=== PATIENT | female | born 1950 | race Caucasian/White ===

== ENCOUNTER 2021-05-21 10:48 | Emergency (ER) | payer MEDICARE, OTHER, SELFPAY ==
[2021-05-21 10:53] VITALS: BP 120/105; PULSE 92; RESP 15; TEMP 36.7; BMI 19.2
--- NOTE | 2021-05-21 11:10 | EDS_ITS ---
HPI History of Present Illness Chief Complaint: Laceration Onset/Context/Timing Onset: Hours Context: Sudden Onset Timing: Continuous Location: Laceration anterior distal left leg Current Severity: Mild Maximum Severity: Mild Worsened by: Nothing Relieved by: Nothing Associated Symptoms Associated Symptoms: Negative for Parasthesia, Weakness and Loss of Funtion Narrative Narrative: Patient is a 70-year-old woman who was at [employer]. She was kneeling. She scraped her leg against the kneeler. She presents because of laceration. Tetanus unknown. She denies paresthesia, anesthesia medics. She is not on an anticoagulant. Tetanus Immunization: Unknown Prior similar symptoms: No Recent Illness/Hospitalization: No PFSH PFSH Home Medications Dicyclomine Hcl 20 mg PO TID 02/07/15 [History Last Taken 09/29/16 21:00] levothyroxine 25 mcg PO DAILY 02/07/15 [History Last Taken 09/29/16 09:00] bacillus coagulans-inulin [Probiotic Formula (inulin)] 1 ea PO DAILY 12/07/15 [History Last Taken 09/29/16 09:00] gabapentin 600 mg PO BID 12/07/15 [History Last Taken 09/29/16 21:00] nifedipine 150 mg PO DAILY 12/07/15 [History Last Taken 09/29/16 09:00] pantoprazole 20 mg PO DAILY 12/07/15 [History Last Taken 09/29/16 09:00] paroxetine HCl [Paxil CR] 75 mg PO DAILY 12/07/15 [History Last Taken 09/29/16 09:00] aspirin 325 mg PO DAILY 04/26/16 [History Last Taken 09/29/16 09:00] buspirone 30 mg PO BID 04/26/16 [History Last Taken 09/29/16 21:00] budesonide [Entocort EC] 9 mg PO DAILY 09/30/16 [History Last Taken Unknown] cyclobenzaprine 10 mg PO TID PRN PRN #0 tablet 10/03/16 [Rx Last Taken Unknown] food supplemt, lactose-reduced [Ensure Enlive] 120 ml PO 4X/DAY liquid 10/03/16 [Rx Last Taken Unknown] hydrocodone-acetaminophen 1 tab PO Q6H PRN PRN #12 tablet 10/03/16 [Rx Last Taken Unknown] lorazepam 0.5 mg PO Q6H PRN PRN #10 tablet 10/03/16 [Rx Last Taken Unknown] Allergy/AdvReac Type Severity Reaction Status Date / Time codeine AdvReac Nausea Verified 05/21/21 10:53 oxycodone HCl [From Percocet] AdvReac Nausea Verified 05/21/21 10:53 Social History (Updated 05/21/21 @ 11:[address] Saad Cruz MD) household members: none Smoking Status: Never smoker substance use type: does not use ROS ROS ED Musculoskeletal Musculoskeletal: Denies arthralgias, back pain, myalgias or neck pain Integumentary Reports other Details: Laceration anterior distal left leg ; Denies rash Neurologic Neurologic: Denies paresthesias or weakness Hematologic/Lymphatic Hematologic/Lymphatic: Denies easy bleeding or easy bruising EXAM Physical Exam Const Vital Signs: 05/21/21 10:53 Temperature 98.0 F Temperature Source Temporal Pulse Rate 92 Respiratory Rate 15 Blood Pressure 120/105 H Blood Pressure Mean 110 Positive well nourished and well developed General Appearance ED: well developed HEENT normocephalic and atraumatic Eyes PERRL Eyes Narrative: Extract muscles are intact. Resp normal respiratory effort Cardio regular rate and regular rhythm Extremity full ROM; Negative for normal to inspection Extremity Narrative: Patient has a anterior distal left leg. There is no pain the patient over the lateral medial malleolus. Is no pain the patient over the tibia or fibula. There is no evidence of foreign body. Please read procedure note General Extremety ED: Negative for cyanosis, edema or weight-bearing difficulty General Extremity: other findings; Negative for cyanosis, edema or weight- bearing difficulty Neuro oriented x3 and CN's II-XII intact bilaterally Sensorium / Orientation: alert Motor Exam: strength 5/5 throughout Psych mental status grossly normal Skin Lesions: no lesions Rashes: no rashes Trauma: laceration MDM MDM MDM Narrative Medical decision making narrative: Patient has a flap type laceration. This will require repair. Tetanus was updated. Procedures Other Procedures Procedure(s): Laceration repair. Laceration is 4 x 3 cm The area was no styes with him Xylocaine for local infiltration. The wound was irrigated with 200 cc of normal saline. A total of 6 prabhakar were placed to approximate the wound. Concerned if closed with sutures that the skin would tear. Will have nurse dress. Patient will be discharged appropriate home-going instructions. She was instructed to leave the stitches in place for 14 days. Discharge Plan Triage Chief Complaint: Laceration ED Provider: Saad Cruz Dx/Rx/DC Orders Clinical Impression: Laceration of left leg Instructions: ED Laceration: All Closures Prescriptions: No Action levothyroxine 25 MCG tablet 25 mcg PO DAILY RF: 0 Dicyclomine Hcl 10 MG capsule 20 mg PO TID RF: 0 pantoprazole 20 MG tablet 20 mg PO DAILY RF: 0 nifedipine 60 MG tablet 150 mg PO DAILY RF: 0 gabapentin 100 MG capsule 600 mg PO BID RF: 0 bacillus coagulans-inulin [Probiotic Formula (inulin)] 1 EACH capsule 1 ea PO DAILY RF: 0 paroxetine HCl [Paxil CR] 25 MG Tab.Er.24h 75 mg PO DAILY RF: 0 buspirone 5 MG tablet 30 mg PO BID RF: 0 aspirin 325 MG tablet 325 mg PO DAILY RF: 0 budesonide [Entocort EC] 3 MG Capdr...Er 9 mg PO DAILY RF: 0 cyclobenzaprine 10 MG tablet 10 mg PO TID PRN PRN (Reason: Muscle Spasm) Qty: 0 RF: 0 hydrocodone-acetaminophen 1 TABLET tablet 1 tab PO Q6H PRN PRN (Reason: Severe Pain (6-06/18)) Qty: 12 RF: 0 lorazepam 0.5 MG tablet 0.5 mg PO Q6H PRN PRN (Reason: Anxiety) Qty: 10 RF: 0 food supplemt, lactose-reduced [Ensure Enlive] 120 ML Liquid 120 ml PO 4X/DAY RF: 0 Primary Care Provider: Katey Henderson Referrals: Katey Henderson MD [Primary Care Provider] - 10-14 Days suture removal Activity Restrictions/Additional Instructions: 1. Do not remove dressing for 24 hours 2. Keep wound absolutely clean and dry for the next 72 hours 3. After 24 hours remove dressing and change dressing twice a day. Apply bacitracin ointment over wound. 4. There is any concern for infection return to the emergency department. Disposition Disposition: Home, Self Care
[2021-05-21] MEDS: Diphth,Pertuss(Acell),Tet Vac 0.5 ML Vial IM (11:42)
[2021-05-21] MEDS: Lidocaine 1% (20 ml mdv) 20 ML Vial INFILT (11:44)
== END 2021-05-21 12:46 | disposition home or self-care (01) ==
PROVIDERS: Emergency Provider Emergency Medicine; PCP Internal Medicine
DX: S81.812A Laceration without foreign body, left lower leg, initial encounter (principal); X58.XXXA Exposure to other specified factors, initial encounter
CPT/HCPCS: 12002; 90471; 90715; 99284

== ENCOUNTER 2022-05-27 10:42 | Emergency (ER) | payer MEDICARE, OTHER, SELFPAY ==
[2022-05-27 10:43] VITALS: BP 131/82; PULSE 79; RESP 12; TEMP 36.6; O2SAT 94; BMI 19.3
--- NOTE | 2022-05-27 11:17 | ED.VIS.LOWEX ---
HPI History of Present Illness Chief Complaint: Laceration Informant: patient Occured/Mechanism Comment: see below Onset/Context/Timing Onset: Today (JPTA) Context: Sudden Onset Timing: Continuous Location: right lower leg Current Severity: Mild Maximum Severity: Mild Worsened by: palpation Relieved by: holding pressure stopped bleeding Associated Symptoms Associated Symptoms: Negative for Parasthesia, Weakness or Loss of Funtion Narrative Narrative: Patient was at [employer] this morning, there is a kneeling bar that was up, and she accidentally injured her right lower leg on one of the feet that was sticking out on it. She takes aspirin every day no anticoagulants. Tetanus Immunization: 5-10 years [facility] Medical History Anxiety Depression Hypothyroidism Home Medications Dicyclomine Hcl 20 mg PO TID 02/07/15 [History Last Taken 09/29/16 21:00] levothyroxine 25 mcg tablet 25 mcg PO DAILY 02/07/15 [History Last Taken 09/29/16 09:00] bacillus coagulans-inulin 1 billion cell-250 mg capsule (Probiotic Formula (inulin)) 1 ea PO DAILY 12/07/15 [History Last Taken 09/29/16 09:00] gabapentin 100 mg capsule 600 mg PO BID 12/07/15 [History Last Taken 09/29/16 21:00] nifedipine 60 mg tablet,extended release 24 hr 150 mg PO DAILY 12/07/15 [History Last Taken 09/29/16 09:00] pantoprazole 20 mg tablet,delayed release 20 mg PO DAILY 12/07/15 [History Last Taken 09/29/16 09:00] paroxetine HCl 25 mg tablet,extended release 24 hr (Paxil CR) 75 mg PO DAILY depression 12/07/15 [History Last Taken 09/29/16 09:00] aspirin 325 mg tablet,delayed release 325 mg PO DAILY 04/26/16 [History Last Taken 09/29/16 09:00] buspirone 5 mg tablet 30 mg PO BID 04/26/16 [History Last Taken 09/29/16 21:00] budesonide 3 mg capsule,delayed,extended release (Entocort EC) 9 mg PO DAILY 09/30/16 [History Last Taken Unknown] cyclobenzaprine 10 mg tablet 10 mg PO TID PRN PRN Muscle Spasm ##0 01/25/17 [Rx Last Taken Unknown] food supplemt, lactose-reduced 0.08 gram-1.5 kcal/mL oral liquid (Ensure Enlive) 120 ml PO 4X/DAY 10/03/16 [Rx Last Taken Unknown] hydrocodone-acetaminophen 5-325mg 5mg-325mg 1 tab PO Q6H PRN PRN Severe Pain (6-10/10) ##12 10/03/16 [Rx Last Taken Unknown] lorazepam 0.5 mg tablet 0.5 mg PO Q6H PRN PRN Anxiety ##10 10/03/16 [Rx Last Taken Unknown] Allergy/AdvReac Type Severity Reaction Status Date / Time codeine AdvReac Nausea Verified 05/27/22 10:48 oxycodone HCl [From Percocet] AdvReac Nausea Verified 05/27/22 10:48 Social History household members: none Smoking Status: Never smoker substance use type: does not use ROS ROS ED Constitutional Constitutional ED: Denies chills or fever(s) Musculoskeletal Musculoskeletal: Denies extremity pain or neck pain Integumentary Reports wounds; Denies Abrasions or rash Neurologic Neurologic: Denies paresthesias or weakness EXAM Physical Exam Const Vital Signs: 05/27/22 10:43 Temperature 98 F Temperature Source Temporal Pulse Rate 79 Respiratory Rate 12 Blood Pressure 131/82 H Blood Pressure Mean 98 Pulse Ox 94 Oxygen Delivery Method Room Air Positive well nourished and well developed General Appearance ED: well developed and NAD Neck full ROM and supple Back/Spine normal ROM and normal to inspection Extremity Extremity Narrative: Skin tear right lower leg full range of motion throughout all joints without difficulty, no tenderness. No deformities. Neuro oriented x3, no focal motor deficits and no sensory deficits noted Sensorium / Orientation: alert Psych mental status grossly normal and thought process normal Skin Skin Narrative: There is a partial flap skin tear anterior distal right lower leg above the ankle. It is anterior. There is no bone exposed, it is to the dermis but not beyond it and there is no laceration. Her white shoe was covered in blood, however there is no active bleeding. I did peel back the flap for inspection. It is very thin. No bony tenderness throughout the leg. Rashes: no rashes MDM MDM MDM Narrative Medical decision making narrative: This is a skin tear only with no laceration. There is no indication for repair here, the thin edges of the skin we will not hold sutures. We cleansed the wound and placed the flap over the affected wound, bandage placed, wound care advised. Discharge Plan Triage Chief Complaint: Laceration ED Provider: Andrea Pantoja Dx/Rx/DC Orders Clinical Impression: Noninfected skin tear of right leg Instructions: ED Skin Avulsion Prescriptions: No Action levothyroxine 25 MCG tablet 25 mcg PO DAILY Label Comments: thyroid Dicyclomine Hcl 10 MG capsule 20 mg PO TID Label Comments: stomach pantoprazole 20 MG tablet 20 mg PO DAILY Label Comments: acid reflux nifedipine 60 MG tablet 150 mg PO DAILY Label Comments: heart rate gabapentin 100 MG capsule 600 mg PO BID Label Comments: nerve pain bacillus coagulans-inulin [Probiotic Formula (inulin)] 1 EACH capsule 1 ea PO DAILY Label Comments: stomach; treat IBS paroxetine HCl [Paxil CR] 25 MG Tab.Er.24h 75 mg PO DAILY Label Comments: Treat major depressive disorder buspirone 5 MG tablet 30 mg PO BID aspirin 325 MG tablet 325 mg PO DAILY Label Comments: blood thinner budesonide [Entocort EC] 3 MG Capdr...Er 9 mg PO DAILY cyclobenzaprine 10 MG tablet 10 mg PO TID PRN PRN (Reason: Muscle Spasm) Qty: 0 0RF hydrocodone-acetaminophen 1 TABLET tablet 1 tab PO Q6H PRN PRN (Reason: Severe Pain (6-10/10)) Qty: 12 0RF lorazepam 0.5 MG tablet 0.5 mg PO Q6H PRN PRN (Reason: Anxiety) Qty: 10 0RF food supplemt, lactose-reduced [Ensure Enlive] 120 ML Liquid 120 ml PO 4X/DAY 0RF Primary Care Provider: Katey Henderson Referrals: Katey Henderson MD [Primary Care Provider] - As Needed Disposition Disposition: Home, Self Care
== END 2022-05-27 11:41 | disposition home or self-care (01) ==
PROVIDERS: Emergency Provider Emergency Medicine; PCP Internal Medicine; Visit Provider Emergency Medicine
DX: S81.811A Laceration without foreign body, right lower leg, initial encounter (principal); X58.XXXA Exposure to other specified factors, initial encounter
CPT/HCPCS: 99284

== ENCOUNTER 2022-09-01 10:43 | Emergency (ER) | payer MEDICARE, OTHER, SELFPAY ==
[2022-09-01 10:48] VITALS: BP 89/57; PULSE 88; RESP 16; TEMP 36; O2SAT 95; BMI 18.0
--- NOTE | 2022-09-01 11:24 | CT_ITS ---
STUDY: CT BRAIN WITHOUT CONTRAST REASON FOR EXAM: Female, 71 years old. Change in Mental Status RADIATION DOSAGE (If Supplied By Facility): CTDIvol = ( 44.99 ) mGy, DLP = ( 728.62 ) mGycm TECHNIQUE: Transaxial CT imaging of the brain was performed without administration of intravenous contrast material. Individualized dose optimization techniques were used for this CT. COMPARISON: No relevant priors. FINDINGS: Normal soft tissue structures. Normal calvarium. There is calcification of the bilateral cavernous carotid arteries. There is mild cerebral atrophy with widening of the extra-axial spaces and ventricular dilatation. Normal white matter tracts of the cerebral hemispheres. There is chronic appearing low attenuation within the right greater than left external capsules. Normal brainstem. There is mild cerebellar atrophy. There is no intracranial hemorrhage. There are no findings of an acute ischemic infarction. Normal visualized paranasal sinuses. CT/Brain/Head without Contrast IMPRESSION: Mild atrophy no visualized acute hemorrhage infarct or edema. Probable prior subtle symmetric small vessel ischemic change within the bilateral basal ganglia. Electronically Signed: Beth Kinney MD at 12:58 EST Reading Location ID and State: [facility] / [place] Tel , Service support ,
--- NOTE | 2022-09-01 11:26 | EX.ED.VIS.PS ---
HPI HPI - Psych History of Present Illness Chief Complaint: Mental Health Narrative Narrative: 71-year-old female with history of anxiety and depression presenting with depression. She states this has been ongoing for about a week. She states her depression is getting worse even though she is taking her medications. She does not have any triggers that she knows of. She does take Paxil, buspirone, as needed Ativan. She reports that she has been taking it more than she should. She has been sleeping more through the day and still sleeps all night. She admits to feeling suicidal. She states she could take her medications as a way of killing herself. She states she saw him several days of following through. She states what ever it takes. She will tell me any other plans. Patient does feel afraid to go home because she feels that she will follow through with a suicide attempt. [facility] Medical History Anxiety Depression Hypothyroidism Home Medications Dicyclomine Hcl 20 mg PO TID 02/07/15 [History Last Taken 09/29/16 21:00] levothyroxine 25 mcg tablet 25 mcg PO DAILY 02/07/15 [History Last Taken 09/29/16 09:00] bacillus coagulans-inulin 1 billion cell-250 mg capsule (Probiotic Formula (inulin)) 1 ea PO DAILY 12/07/15 [History Last Taken 09/29/16 09:00] gabapentin 100 mg capsule 600 mg PO BID 12/07/15 [History Last Taken 09/29/16 21:00] nifedipine 60 mg tablet,extended release 24 hr 150 mg PO DAILY 12/07/15 [History Last Taken 09/29/16 09:00] pantoprazole 20 mg tablet,delayed release 20 mg PO DAILY 12/07/15 [History Last Taken 09/29/16 09:00] paroxetine HCl 25 mg tablet,extended release 24 hr (Paxil CR) 75 mg PO DAILY depression 12/07/15 [History Last Taken 09/29/16 09:00] aspirin 325 mg tablet,delayed release 325 mg PO DAILY 04/26/16 [History Last Taken 09/29/16 09:00] buspirone 5 mg tablet 30 mg PO BID 04/26/16 [History Last Taken 09/29/16 21:00] budesonide 3 mg capsule,delayed,extended release (Entocort EC) 9 mg PO DAILY 09/30/16 [History Last Taken Unknown] cyclobenzaprine 10 mg tablet 10 mg PO TID PRN PRN Muscle Spasm ##0 10/03/16 [Rx Last Taken Unknown] food supplemt, lactose-reduced 0.08 gram-1.5 kcal/mL oral liquid (Ensure Enlive) 120 ml PO 4X/DAY 10/03/16 [Rx Last Taken Unknown] hydrocodone-acetaminophen 5-325mg 5mg-325mg 1 tab PO Q6H PRN PRN Severe Pain (6-10/10) ##12 10/03/16 [Rx Last Taken Unknown] lorazepam 0.5 mg tablet 0.5 mg PO Q6H PRN PRN Anxiety ##10 10/03/16 [Rx Last Taken Unknown] Allergy/AdvReac Type Severity Reaction Status Date / Time codeine AdvReac Nausea & Verified 09/01/22 10:45 dizziness oxycodone HCl [From Percocet] AdvReac Nausea & Verified 09/01/22 10:45 dizziness Social History household members: none Smoking Status: Never smoker substance use type: does not use ROS ROS ED Constitutional Constitutional ED: Denies chills or fever(s) Eyes Eyes: Denies change in vision or diplopia ENT ENT ED: Denies rhinorrhea or sore throat Cardiovascular Cardiovascular: Denies chest pain or palpitations Respiratory/Chest Respiratory/Chest: Denies cough or dyspnea Gastrointestinal Gastrointestinal: Denies abdominal pain Genitourinary Genitourinary ED: Denies dysuria or hematuria Musculoskeletal Musculoskeletal: Denies arthralgias or back pain Integumentary Denies abscess or Abrasions Neurologic Neurologic: Denies headache(s) Psychiatric Psychiatric: Reports anxiety, depression, suicidal ideation and suicidal thoughts EXAM Physical Exam Const Vital Signs: 09/01/22 10:48 09/01/22 12:28 09/01/22 16:00 Temperature 96.8 F L Temperature Source Temporal Pulse Rate 88 70 78 Respiratory Rate 16 18 16 Blood Pressure 89/57 L 135/83 H 114/78 Blood Pressure Mean 67 100 90 Pulse Ox 95 99 98 Oxygen Delivery Method Room Air Room Air Room Air Positive well nourished General Appearance ED: NAD; Negative for pallor HEENT Reports moist mucous membranes normocephalic and atraumatic Eyes PERRL Resp normal respiratory effort and clear to auscultation bilaterally Auscultation: Negative for rales, rhonchi or wheezes GI non-tender, non-distended and no masses Neuro oriented x3, CN's II-XII intact bilaterally and no sensory deficits noted Sensorium / Orientation: alert, oriented to person, oriented to place and oriented to time Motor Exam: strength 5/5 throughout Psych denies hallucinations and denies homicidal ideation Appearance: grossly normal Attitude: bizarre and evasive Activity / Motor Behavior: fidgetting, hyperactive and restless Speech: normal speech Mood & Affect: sad and fearful Thought Process: No flight of ideas and No tangential Thought Content: suicidality, No homicidality, No delusion(s) and No hallucination(s) Attention / Concentration: attention grossly intact Memory / Cognition: memory grossly intact Insight: poor Judgement: poor Skin General Skin Exam: Negative for jaundice or pallor MDM MDM MDM Narrative Medical decision making narrative: Patient presenting with suicidal thoughts and plan to ingest her medications at home. She has been much more depressed than usual and has been sleeping a lot. She admits to over taking her Ativan. She has not discussed this with Dr. Henning at all. She does state that she also has other ideas but will not reveal these. She does also state that she is afraid to go home because she is likely to follow through with ingestion. Obtain blood work today and her CBC and BMP are unremarkable. EtOH negative. CT of the brain was obtained and this is negative for acute intracranial findings. Rapid flu and COVID are negative. Urine drug screen is negative. Urinalysis negative for infection. Patient medically clear for crisis evaluation. After crisis evaluation it is recommended that the patient be inpatient. She did report to crisis that she was hearing voices that were telling her to kill her self. She was accepted at [facility] by Dr. Mathew. Patient will be transported in stable condition Impression: 1. Suicidal ideation with plan 2. Auditory hallucination 3. History of depression 4. History of anxiety Lab Data Attestation: I reviewed the patient's lab results. Labs: Laboratory Results - last 24 hr 09/01/22 09/01/22 09/01/22 11:45 11:45 11:45 WBC 6.0 RBC 4.96 Hgb 14.9 Hct 47.3 H MCV 95.4 MCH 30.0 MCHC 31.5 L RDW Std Deviation 49.8 H RDW Coeff of Amber 14.2 Plt Count 213 MPV 9.1 Immature Gran % (Auto) 0.300 Neut % (Auto) 78.3 H Lymph % (Auto) 14.3 L Greenwood % (Auto) 5.9 Eos % (Auto) 0.7 Baso % (Auto) 0.5 Absolute Neuts (auto) 4.7 Absolute Lymphs (auto) 0.85 Nucleated RBC % 0 Sodium 140 Potassium 3.8 Chloride 110 H Carbon Dioxide 25.0 Anion Gap 5 BUN 9 Creatinine 0.85 Estim Creat Clear Calc 37.02 Est GFR (MDRD) Af Amer 84 Est GFR (MDRD) Non-Af 70 BUN/Creatinine Ratio 10.6 Glucose 103 Calcium 9.0 Urine Color Urine Clarity Urine pH Ur Specific York Urine Protein Urine Glucose (UA) Urine Ketones Urine Occult Blood Urine Nitrite Urine Bilirubin Urine Urobilinogen Ur Leukocyte Esterase Urine RBC Urine WBC Ur Squamous Epith Cells Urine Bacteria Urine Mucus Urine Opiates Screen Urine Methadone Screen Ur Barbiturates Screen Ur Phencyclidine Scrn Ur Amphetamines Screen MDMA (Ecstasy) Screen U Benzodiazepines Scrn Urine Cocaine Screen U Cannabinoids Screen Ur Drug Screen Comment Ethyl Alcohol < 3.0 09/01/22 09/01/22 15:05 15:05 WBC RBC Hgb Hct MCV MCH MCHC RDW Std Deviation RDW Coeff of Amber Plt Count MPV Immature Gran % (Auto) Neut % (Auto) Lymph % (Auto) Greenwood % (Auto) Eos % (Auto) Baso % (Auto) Absolute Neuts (auto) Absolute Lymphs (auto) Nucleated RBC % Sodium Potassium Chloride Carbon Dioxide Anion Gap BUN Creatinine Estim Creat Clear Calc Est GFR (MDRD) Af Amer Est GFR (MDRD) Non-Af BUN/Creatinine Ratio Glucose Calcium Urine Color Yellow Urine Clarity Clear Urine pH 6.5 Ur Specific York 1.010 Urine Protein 15 H Urine Glucose (UA) Normal Urine Ketones Negative Urine Occult Blood 10 H Urine Nitrite Negative Urine Bilirubin Negative Urine Urobilinogen Normal Ur Leukocyte Esterase 25 H Urine RBC 0 SEEN Urine WBC 0 SEEN Ur Squamous Epith Cells 0 SEEN Urine Bacteria 4+ Urine Mucus 0 SEEN Urine Opiates Screen NEGATIVE Urine Methadone Screen NEGATIVE Ur Barbiturates Screen NEGATIVE Ur Phencyclidine Scrn NEGATIVE Ur Amphetamines Screen NEGATIVE MDMA (Ecstasy) Screen NEGATIVE U Benzodiazepines Scrn NEGATIVE Urine Cocaine Screen NEGATIVE U Cannabinoids Screen NEGATIVE Ur Drug Screen Comment Ethyl Alcohol Radiography Diagnostic Testing: Clinical Impression(s) from Imaging Studies Brain CT 09/01/22 11:24 IMPRESSION: Mild atrophy no visualized acute hemorrhage infarct or edema. Probable prior subtle symmetric small vessel ischemic change within the bilateral basal ganglia. Electronically Signed: Beth Kinney MD at 12:58 EST , Discharge Plan Triage Chief Complaint: Mental Health ED Provider: Bret Ogden Dx/Rx/DC Orders Prescriptions: No Action levothyroxine 25 MCG tablet 25 mcg PO DAILY Label Comments: thyroid Dicyclomine Hcl 10 MG capsule 20 mg PO TID Label Comments: stomach pantoprazole 20 MG tablet 20 mg PO DAILY Label Comments: acid reflux nifedipine 60 MG tablet 150 mg PO DAILY Label Comments: heart rate gabapentin 100 MG capsule 600 mg PO BID Label Comments: nerve pain bacillus coagulans-inulin [Probiotic Formula (inulin)] 1 EACH capsule 1 ea PO DAILY Label Comments: stomach; treat IBS paroxetine HCl [Paxil CR] 25 MG Tab.Er.24h 75 mg PO DAILY Label Comments: Treat major depressive disorder buspirone 5 MG tablet 30 mg PO BID aspirin 325 MG tablet 325 mg PO DAILY Label Comments: blood thinner budesonide [Entocort EC] 3 MG Capdr...Er 9 mg PO DAILY cyclobenzaprine 10 MG tablet 10 mg PO TID PRN PRN (Reason: Muscle Spasm) Qty: 0 0RF hydrocodone-acetaminophen 1 TABLET tablet 1 tab PO Q6H PRN PRN (Reason: Severe Pain (6-1010)) Qty: 12 0RF lorazepam 0.5 MG tablet 0.5 mg PO Q6H PRN PRN (Reason: Anxiety) Qty: 10 0RF food supplemt, lactose-reduced [Ensure Enlive] 120 ML Liquid 120 ml PO 4X/DAY 0RF Primary Care Provider: Katey Henderson Referrals: Katey Henderson MD [Primary Care Provider] -
[2022-09-01 11:56] LABS: Absolute Lymphocyte Count 0.85 X10^3/uL (0.83-4.51); Absolute Neutrophil Count 4.7 X10^3/uL (2.0-7.7); Basophil# 0.03 X10^3/uL; Basophil% 0.5 % (0-1); Eosinophil# 0.04 X10^3/uL; Eosinophils% 0.7 % (0-5); Hematocrit 47.3 % (37-47); Hemoglobin 14.9 g/dL (12.0-15.0); Lymphocyte # 0.85 X10^3/ul (0.83-4.51); Lymphocyte % 14.3 % (19-41); Mean Corp Hgb Conc 31.5 g/dL (32-36); Mean Corpuscular Volume 95.4 fL (81-99); Mean Platelet Vol. 9.1 fl (6.2-12.0); Monocyte# 0.35 X10^3/uL; Monocyte% 5.9 % (0-10); NRBC Flagged by Analyzer 0 % (0-5); Neutrophil # 4.66 X10^3/uL (2.7-7.7); Neutrophil % 78.3 % (47-70); Platelet Count 213 K/mm3 (150-450); RBC Distribution Width CV 14.2 % (11.6-14.6); RBC Distribution Width SD 49.8 fl (35.1-43.9); Red Blood Count 4.96 M/mm3 (4.2-5.4)
[2022-09-01 12:04] LABS: Alcohol, Blood (Medical)-Serum < 3.0 mg/dL
[2022-09-01 12:05] LABS: Anion Gap 5 (5-15); BUN 9 mg/dL (7-18); BUN/Creat Ratio 10.6 RATIO (10-20); Chloride 110 mmol/L (98-107); Creatinine, Serum 0.85 mg/dL (0.55-1.02); EST Glomerular Filtration Rate 70 mL/min (>60); Est Glom Filt Rate - Afr Amer 84 mL/min (>60); Estimated Creatinine Clearance 37.02 ml/min; Glucose 103 mg/dL (74-106); Potassium 3.8 mmol/L (3.5-5.1); Sodium Level 140 mmol/L (136-145)
[2022-09-01 12:28] VITALS: BP 135/83; PULSE 70; RESP 18; O2SAT 99
[2022-09-01 15:18] LABS: Mucous, Urine 0 SEEN /hpf (<or=2+); Red Blood Cells-Urine 0 SEEN /hpf (0-5); Squamous Epithelial Cells - UA 0 SEEN /hpf (5-10); White Blood Cells 0 SEEN /hpf (0-5)
[2022-09-01 15:31] LABS: Color, Urine Yellow (Yellow); Glucose, Dipstick Normal (Normal); Ketone-Dipstick Negative (Negative); Leukocyte Esterase-Dipstick 25 /ul (Negative); Nitrite-Dipstick Negative (Negative); Occult Blood-Urine 10 /ul (Negative); Protein-Dipstick 15 mg/dl (Negative); Urine Bilirubin Dipstick Negative (Negative); Urine Clarity Clear (Clear); Urine Urobilinogen Normal (Normal); Urine pH 6.5 (5.0 - 8.0)
[2022-09-01 15:52] LABS: Amphetamine Urine VISTA NEGATIVE (<1000 ng/mL); Barbiturate Urine VISTA NEGATIVE (< 200 ng/mL); Benzodiazepine Urine VISTA NEGATIVE (< 200 ng/mL); Cocaine Urine VISTA NEGATIVE (< 300 ng/mL); Ecstacy Urine VISTA NEGATIVE (< 500 ng/mL); Methadone Urine VISTA NEGATIVE (< 300 ng/mL); PCP Urine VISTA NEGATIVE (< 25 ng/mL); THC Urine VISTA NEGATIVE (< 50 ng/mL)
[2022-09-01 15:58] LABS: Bacteria 4+ /hpf (None Seen); Vista UDS pH Range 7
[2022-09-01 16:00] VITALS: BP 114/78; PULSE 78; RESP 16; O2SAT 98
--- NOTE | 2022-09-01 17:55 | NURSING ---
CALLED [facility] ABOUT PATIENT
--- NOTE | 2022-09-01 17:59 | NURSING ---
FAXED CHART TO [facility]
[2022-09-01 18:00] VITALS: BP 115/78; PULSE 66; RESP 16; O2SAT 99
--- NOTE | 2022-09-01 18:00 | NURSING ---
KAMLESH, MARICARMEN, CALLED BACK. SHE IS WAITING FOR CHART, THEN SHE WILL ASSESS PATIENT
--- NOTE | 2022-09-01 19:35 | ED.RN ---
PATIENT PENDING AT [facility] AT 1935
--- NOTE | 2022-09-01 20:23 | ED.RN ---
[facility] called and requesting additional information chart faxed to them at this time
--- NOTE | 2022-09-01 20:32 | ED.RN ---
PATIENT ACCEPTED AT [facility] @ 2029, ETA [facility] OF 09/02/2022 AT 0700.
[2022-09-01 22:00] VITALS: BP 134/78; PULSE 66; RESP 16; O2SAT 99
[2022-09-02] VITALS: RESP 16; O2SAT 97
[2022-09-02 02:00] VITALS: BP 116/72; PULSE 72; RESP 16; O2SAT 97
[2022-09-02] MEDS: Acetaminophen 325 MG Tablet 650 MG PO (02:07)
[2022-09-02 04:00] VITALS: RESP 16; O2SAT 96
[2022-09-02 07:51] VITALS: BP 111/66; PULSE 89; RESP 18; O2SAT 100
[2022-09-02 09:11] VITALS: TEMP 36.4
--- NOTE | 2022-09-02 10:03 | ED.RN ---
CALLED [facility] AND LEFT MESSAGE TO CALL THIS NURSE BACK FOR REPORT, FIRE ALARM WAS ALARMING AT [facility] AND CHARGE NURSE WILL CALL BACK FOR REPORT.
[2022-09-02 10:37] VITALS: BP 111/66; PULSE 89; RESP 8; TEMP 36.4; O2SAT 100
--- NOTE | 2022-09-02 10:38 | ED.RN ---
charge nurse from [facility] did not return call for report.
== END 2022-09-02 09:15 ==
LOC: ED 11:48
PROVIDERS: Emergency Provider Student in an Organized Health Care Education/Training Program; PCP Internal Medicine; Visit Provider Student in an Organized Health Care Education/Training Program
DX: R45.851 Suicidal ideations (principal); R44.3 Hallucinations, unspecified; F41.9 Anxiety disorder, unspecified; F32.A Depression, unspecified; Z79.899 Other long term (current) drug therapy; Z79.82 Long term (current) use of aspirin
CPT/HCPCS: 70450; 80048; 80307; 81001; 82077; 85025; 87811; 93005; 99283

== ENCOUNTER 2022-09-06 17:43 | Inpatient (IN) | payer MEDICARE, OTHER, SELFPAY ==
[2022-09-06 17:44] VITALS: BP 108/55; PULSE 73; RESP 18; TEMP 35.7; O2SAT 95; BMI 17.3
--- NOTE | 2022-09-06 17:50 | ED.RN ---
SPOKE WITH DR VELASQUEZ OF PATIENTS SYMPTOMS. NO STROKE ALERT AT THIS TIME BUT INSTRUCTED TO MAKE PATIENT PRIORITY.
--- NOTE | 2022-09-06 18:15 | CT_ITS ---
STUDY: CT BRAIN WITHOUT CONTRAST REASON FOR EXAM: Female, 71 years old. aphasia RADIATION DOSAGE (If Supplied By Facility): CTDIvol = ( 44.99 ) mGy, DLP = ( 745.49 ) mGycm TECHNIQUE: Transaxial CT imaging of the brain was performed without administration of intravenous contrast material. Individualized dose optimization techniques were used for this CT. COMPARISON: CT brain September 01, 2022 FINDINGS: Normal soft tissue structures. Normal calvarium. Normal size ventricles and extra-axial spaces for the patient''s age. Normal white matter tracts of the cerebral hemispheres. Normal basal ganglia and thalami. Normal brainstem. Normal cerebellum. There is no intracranial hemorrhage. There are no findings of an acute ischemic infarction. Normal visualized paranasal sinuses. CT/Brain/Head without Contrast IMPRESSION: Normal unenhanced CT scan of the brain. Electronically Signed: Lenin Lopez MD at 19:36 EST ,
--- NOTE | 2022-09-06 18:17 | EKG12_ITS ---
Test Reason : DYSRHYTHMIA Blood Pressure : / mmHG Vent. Rate : 074 BPM Atrial Rate : 074 BPM P-R Int : 130 ms QRS Dur : 076 ms QT Int : 452 ms P-R-T Axes : 083 -70 -34 degrees QTc Int : 501 ms Normal sinus rhythm Biatrial enlargement Left anterior fascicular block Nonspecific ST and T wave abnormality Poor R wave progression Abnormal ECG Confirmed by DILIP BOWIE, AVANI ([id number]), manager editorial CODY PINEDA ([id number]) on 09/11/2022 1:00:51 PM Referred By: SHAYY Confirmed By:AVANI CHERRY MD
--- NOTE | 2022-09-06 18:22 | ED.RN ---
NO STROKE ALERT PER DR VELASQUEZ
--- NOTE | 2022-09-06 18:30 | ED.VIS.STROK ---
HPI History of Present Illness Chief Complaint: Confusion Narrative Narrative: Patient presents with , apparently about 4 hours ago she became confused and was unsteady. Apparently this is new however by the time she got to the ED she had improved. She was recently discharged from a psychiatric facility in fact she has been home for about 7 hours. She tells me she did not take extra of any of her medications. No focal weakness no facial droop, no slurring of speech. No numbness or paresthesias or vision changes. She is now able to give me a reasonable history and review of systems, she knows where she is she knows how old it she is she knows the month and the year. [facility] Medical History Anxiety Depression Hypothyroidism Home Medications levothyroxine 25 mcg tablet 25 mcg PO DAILY 02/07/15 [History Last Taken 09/29/16 09:00] bacillus coagulans-inulin 1 billion cell-250 mg capsule (Probiotic Formula (inulin)) 1 ea PO DAILY 12/07/15 [History Last Taken 09/29/16 09:00] gabapentin 100 mg capsule 600 mg PO BID 12/07/15 [History Last Taken 09/29/16 21:00] nifedipine 60 mg tablet,extended release 24 hr 180 mg PO DAILY 12/07/15 [History Last Taken 09/29/16 09:00] pantoprazole 20 mg tablet,delayed release 20 mg PO DAILY 12/07/15 [History Last Taken 09/29/16 09:00] paroxetine HCl 25 mg tablet,extended release 24 hr (Paxil CR) 75 mg PO DAILY depression 12/07/15 [History Last Taken 09/29/16 09:00] aspirin 325 mg tablet,delayed release 325 mg PO DAILY 04/26/16 [History Last Taken 09/29/16 09:00] buspirone 5 mg tablet 30 mg PO BID 04/26/16 [History Last Taken 09/29/16 21:00] budesonide 3 mg capsule,delayed,extended release (Entocort EC) 9 mg PO DAILY 09/30/16 [History Last Taken Unknown] food supplemt, lactose-reduced 0.08 gram-1.5 kcal/mL oral liquid (Ensure Enlive) 120 ml PO 4X/DAY 10/03/16 [Rx Last Taken Unknown] lorazepam 0.5 mg tablet 0.5 mg PO Q6H PRN PRN Anxiety ##10 10/03/16 [Rx Last Taken Unknown] dicyclomine 20 mg tablet 20 mg PO TID 09/02/22 [History Last Taken Unknown] Allergy/AdvReac Type Severity Reaction Status Date / Time codeine AdvReac Nausea & Verified 09/06/22 17:50 dizziness oxycodone HCl [From Percocet] AdvReac Nausea & Verified 09/06/22 17:50 dizziness Social History household members: none Smoking Status: Never smoker substance use type: does not use ROS ROS ED ROS Narrative Past medical history: Reviewed, includes anxiety depression osteoporosis hypothyroidism, hyperlipidemia Medications: Reviewed Social history: Noncontributory Review of systems: All systems negative except as indicated General: No fever Eyes: No visual changes ENT: No upper airway congestion, normal voice Neck: No neck pain Cardiovascular: No chest pain Respiratory: No shortness of breath or cough Gastrointestinal: No abdominal pain, nausea vomiting or diarrhea Genitourinary: No dysuria Musculoskeletal: Denies myalgias no difficulty with ambulation Skin: No rash Neurological: As in HPI Psych: No recent behavioral changes Hematologic: No easy bleeding or easy bruising EXAM Physical Exam Narrative Exam Narrative: Physical exam General: Well nourished, Well developed, No Acute Distress Head: Normocephalic, Atraumatic Eyes: Conjunctiva not pale ENT: Moist mucous membranes Neck: Supple, Nontender, No lymphadenopathy Cardiovascular: Regular rate, Regular rhythm Respiratory: No distress, CTA bilaterally Abdomen: Soft, Nontender, Nondistended Back: Nontender, Normal Inspection. Negative for: CVA tenderness Extremities: Nontender, No edema Skin: Normal color, No rash Neurological: Alert, Normal Strength, Normal Sensation, see NIH stroke scale Psychological: Slightly flat affect but lucid coherent and appropriate Const Vital Signs: 09/06/22 17:44 09/06/22 20:00 Temperature 96.3 F L Temperature Source Temporal Pulse Rate 73 78 Respiratory Rate 18 16 Blood Pressure 108/55 L 134/78 H Blood Pressure Mean 72 96 Pulse Ox 95 98 Oxygen Delivery Method Room Air Room Air NIHSS NIHSS Initial: 1a Level of Consciousness: 0 1b LOC Questions (Score 2 if aphasic/stupor): 0 1c LOC Commands (Only score 1st attempt): 0 2 Best Gaze (If aphasic, use reflexive mvmts.): 0 3 Visual: 0 4 Facial Palsy: 0 5 Motor Arm Right (UN = amputation/fusion): 0 5 Motor Arm Left: 0 6 Motor Leg Right: 0 6 Motor Leg Left: 0 7 Limb ataxia (Only + if out of proportion): 0 8 Sensory (Aphasia/stupor=0 or 1, coma=2): 0 9 Best Language: 0 10 Dysarthria (mute, coma=2, intubated=UN): 0 11 Extinction and Inattention (only scored if +): 0 Total Score: 0 MDM MDM Lab Data Labs: Laboratory Results - last 24 hr 09/06/22 09/06/22 09/06/22 18:30 18:30 18:30 WBC 9.2 RBC 4.73 Hgb 14.7 Hct 43.6 MCV 92.2 MCH 31.1 MCHC 33.7 RDW Std Deviation 46.8 H RDW Coeff of Amber 13.9 Plt Count 260 MPV 9.3 Immature Gran % (Auto) 0.200 Neut % (Auto) 71.8 H Lymph % (Auto) 16.0 L [place] % (Auto) 10.2 H Eos % (Auto) 1.4 Baso % (Auto) 0.4 Absolute Neuts (auto) 6.6 Absolute Lymphs (auto) 1.48 Nucleated RBC % 0 PT 12.8 INR 1.0 Sodium 139 Potassium 3.6 Chloride 107 Carbon Dioxide 29.0 Anion Gap 3 L BUN 29 H Creatinine 1.28 H Estim Creat Clear Calc 23.61 Est GFR (MDRD) Af Amer 53 L Est GFR (MDRD) Non-Af 44 L BUN/Creatinine Ratio 22.7 H Glucose 92 Calcium 8.8 Total Bilirubin 0.30 AST 18 ALT 28 Alkaline Phosphatase 55 Troponin I High Sens 8 Total Protein 7.3 Albumin 3.8 Globulin 3.5 Albumin/Globulin Ratio 1.1 Urine Color Urine Clarity Urine pH Ur Specific [place] Urine Protein Urine Glucose (UA) Urine Ketones Urine Occult Blood Urine Nitrite Urine Bilirubin Urine Urobilinogen Ur Leukocyte Esterase Urine RBC Urine WBC Ur Squamous Epith Cells Urine Bacteria Urine Mucus Urine Opiates Screen Urine Methadone Screen Ur Barbiturates Screen Ur Phencyclidine Scrn Ur Amphetamines Screen MDMA (Ecstasy) Screen U Benzodiazepines Scrn Urine Cocaine Screen U Cannabinoids Screen Ur Drug Screen Comment 09/06/22 09/06/22 20:10 20:10 WBC RBC Hgb Hct MCV MCH MCHC RDW Std Deviation RDW Coeff of [place] Plt Count MPV Immature Gran % (Auto) Neut % (Auto) Lymph % (Auto) [place] % (Auto) Eos % (Auto) Baso % (Auto) Absolute Neuts (auto) Absolute Lymphs (auto) Nucleated RBC % PT INR Sodium Potassium Chloride Carbon Dioxide Anion Gap BUN Creatinine Estim Creat Clear Calc Est GFR (MDRD) Af Amer Est GFR (MDRD) Non-Af BUN/Creatinine Ratio Glucose Calcium Total Bilirubin AST ALT Alkaline Phosphatase Troponin I High Sens Total Protein Albumin Globulin Albumin/Globulin Ratio Urine Color Yellow Urine Clarity Sl. Cloudy Urine pH 5.0 Ur Specific [place] 1.015 Urine Protein Negative Urine Glucose (UA) Normal Urine Ketones Negative Urine Occult Blood Negative Urine Nitrite Positive H Urine Bilirubin Negative Urine Urobilinogen Normal Ur Leukocyte Esterase 100 H Urine RBC 0 SEEN Urine WBC 0-5 SEEN Ur Squamous Epith Cells 0-5 SEEN Urine Bacteria 4+ Urine Mucus 0 SEEN Urine Opiates Screen NEGATIVE Urine Methadone Screen NEGATIVE Ur Barbiturates Screen NEGATIVE Ur Phencyclidine Scrn NEGATIVE Ur Amphetamines Screen NEGATIVE MDMA (Ecstasy) Screen NEGATIVE U Benzodiazepines Scrn NEGATIVE Urine Cocaine Screen NEGATIVE U Cannabinoids Screen NEGATIVE Ur Drug Screen Comment Radiography Diagnostic Testing: Clinical Impression(s) from Imaging Studies Brain CT 09/06/22 18:15 IMPRESSION: Normal unenhanced CT scan of the brain. Electronically Signed: Lenin Lopez MD at 19:36 EST Reading Location ID and State: [facility] / [place] , Service support , Patient's work-up is unremarkable, however she did have what seemed to be quite rapid onset of her symptoms therefore I am worried that she could have had a TIA. It is also possible she took some of her meds especially her benzodiazepines however she is not getting any history of this and she is denying, until then I will have to do a stroke work-up and this will have to be inpatient. Discharge Plan Triage Chief Complaint: Confusion ED Provider: Harpal Velasco Dx/Rx/DC Orders Clinical Impression: Acute confusion, Weakness, Slurred speech Prescriptions: No Action levothyroxine 25 MCG tablet 25 mcg PO DAILY Label Comments: thyroid pantoprazole 20 MG tablet 20 mg PO DAILY Label Comments: acid reflux nifedipine 60 MG tablet 180 mg PO DAILY Label Comments: heart rate gabapentin 100 MG capsule 600 mg PO BID Label Comments: nerve pain Probiotic Formula (inulin) 1 EACH capsule 1 ea PO DAILY Label Comments: stomach; treat IBS paroxetine HCl [Paxil CR] 25 MG tablet extended release 24 hr 75 mg PO DAILY Label Comments: Treat major depressive disorder buspirone 5 MG tablet 30 mg PO BID aspirin 325 MG tablet 325 mg PO DAILY Label Comments: blood thinner budesonide [Entocort EC] 3 MG capsule,delayed,extend.release 9 mg PO DAILY lorazepam 0.5 MG tablet 0.5 mg PO Q6H PRN PRN (Reason: Anxiety) Qty: 10 0RF food supplemt, lactose-reduced [Ensure Enlive] 120 ML Liquid 120 ml PO 4X/DAY 0RF dicyclomine 20 mg tablet 20 mg PO TID Primary Care Provider: Katey Henderson Referrals: Katey Henderson MD [Primary Care Provider] - Disposition Disposition: Acute Care Hospital [facility]
[2022-09-06 19:06] LABS: Absolute Lymphocyte Count 1.48 X10^3/uL (0.83-4.51); Absolute Neutrophil Count 6.6 X10^3/uL (2.0-7.7); Basophil# 0.04 X10^3/uL; Basophil% 0.4 % (0-1); Eosinophil# 0.13 X10^3/uL; Eosinophils% 1.4 % (0-5); Hematocrit 43.6 % (37-47); Hemoglobin 14.7 g/dL (12.0-15.0); Lymphocyte # 1.48 X10^3/ul (0.83-4.51); Mean Corp Hgb Conc 33.7 g/dL (32-36); Mean Corpuscular Hgb 31.1 pg (27.0-32.0); Mean Corpuscular Volume 92.2 fL (81-99); Mean Platelet Vol. 9.3 fl (6.2-12.0); Monocyte# 0.94 X10^3/uL; Monocyte% 10.2 % (0-10); NRBC Flagged by Analyzer 0 % (0-5); Neutrophil # 6.63 X10^3/uL (2.7-7.7); Neutrophil % 71.8 % (47-70); Platelet Count 260 K/mm3 (150-450); RBC Distribution Width CV 13.9 % (11.6-14.6); RBC Distribution Width SD 46.8 fl (35.1-43.9); Red Blood Count 4.73 M/mm3 (4.2-5.4); White Blood Count 9.2 K/mm3 (4.4-11.0)
[2022-09-06 19:18] LABS: Prothrombin Time (Protime)PT. 12.8 SECONDS (11.7-14.9)
[2022-09-06 19:27] LABS: ALB/GLOB Ratio 1.1 RATIO (0.9-2.4); AST(SGOT) 18 U/L (15-37); Alanine Aminotransfer ALT/SGPT 28 U/L (13-56); Albumin, Serum 3.8 g/dL (3.2-5.0); Alkaline Phosphatase 55 U/L (45-117); Anion Gap 3 (5-15); BUN 29 mg/dL (7-18); BUN/Creat Ratio 22.7 RATIO (10-20); Calcium,Total 8.8 mg/dL (8.5-10.1); Chloride 107 mmol/L (98-107); Creatinine, Serum 1.28 mg/dL (0.55-1.02); EST Glomerular Filtration Rate 44 mL/min (>60); Est Glom Filt Rate - Afr Amer 53 mL/min (>60); Estimated Creatinine Clearance 23.61 ml/min; Globulin 3.5 g/dL (2.2-4.2); Glucose 92 mg/dL (74-106); Potassium 3.6 mmol/L (3.5-5.1); Protein, Total 7.3 g/dL (6.4-8.2); Sodium Level 139 mmol/L (136-145); Troponin-I HS 8 pg/mL (3.0-54.0)
[2022-09-06 20:00] VITALS: BP 134/78; PULSE 78; RESP 16; O2SAT 98
[2022-09-06 20:24] LABS: Mucous, Urine 0 SEEN /hpf (<or=2+); Red Blood Cells-Urine 0 SEEN /hpf (0-5)
[2022-09-06 20:41] LABS: Color, Urine Yellow (Yellow); Glucose, Dipstick Normal (Normal); Ketone-Dipstick Negative (Negative); Leukocyte Esterase-Dipstick 100 /ul (Negative); Nitrite-Dipstick Positive (Negative); Occult Blood-Urine Negative /ul (Negative); Protein-Dipstick Negative (Negative); Specific Gravity, Urine 1.015 (1.002-1.030); Urine Bilirubin Dipstick Negative (Negative); Urine Clarity Sl. Cloudy (Clear); Urine Urobilinogen Normal (Normal)
[2022-09-06 20:56] LABS: Amphetamine Urine VISTA NEGATIVE (<1000 ng/mL); Barbiturate Urine VISTA NEGATIVE (< 200 ng/mL); Benzodiazepine Urine VISTA NEGATIVE (< 200 ng/mL); Cocaine Urine VISTA NEGATIVE (< 300 ng/mL); Ecstacy Urine VISTA NEGATIVE (< 500 ng/mL); Methadone Urine VISTA NEGATIVE (< 300 ng/mL); PCP Urine VISTA NEGATIVE (< 25 ng/mL); THC Urine VISTA NEGATIVE (< 50 ng/mL); Vista UDS pH Range 4
[2022-09-06 21:00] LABS: Bacteria 4+ /hpf (None Seen); Squamous Epithelial Cells - UA 0-5 SEEN /hpf (5-10); White Blood Cells 0-5 SEEN /hpf (0-5)
--- NOTE | 2022-09-06 21:52 | PCM.HP.STD ---
HPI - General General Date of Admission: 09/06/22 Date of Service: 09/06/22 Chief Complaint: Confusion, debility, gait disturbance, ? aphasia. HPI Narrative The patient is a 71 y/o M w/ PMHx: Depression and Anxiety, Raynaud phenomenon, Hypothyroidism, GERD who presents to the [facility] ED on with history of sudden very focal onset confusion, debility with gait unsteadiness and aphasia lasting several minutes ~ 4 hours prior to initial ED arrival prompting evental ED evaluation; however, noted to be resolved upon arrival. notes she is back to her baseline. He does report that she does have a history of frequent UTIs. She was recently discharged earlier in the day from Psychiatric facility and had been sent there recently following evaluation on 09/01/22 for severe depression and suicidal ideations at that time. Patient was reportedly sent home on potentially mildly altered psych regimen but uncertain of regimen changes. Patient does state that she has had some mild dysuria. Work-up in the ED included T96.3, heart rate 73, BP 108/55, respiratory rate 18, 95% on room air, CBC with WBC 9.2, hemoglobin 14.7, platelet 260 without marked shift, unremarkable coags, CMP with BUN/creat 29/1.28 otherwise unremarkable, troponin 8, urinalysis with positive nitrates, leukocyte Estrace 100 with 4+ urine bacteria w/ UCx pending per ED, UDS negative, CT the brain with no acute intracranial findings, EKG with SR without acute evidence of ischemia. In the ED patient administered IV rocephin and ASA per discussion with ED physician. [facility] Medical History (Updated 09/06/22 @ 23:[address] Roseline Christian MD) Anxiety Depression GERD (gastroesophageal reflux disease) HTN (hypertension) Hypothyroidism Home Medications levothyroxine 25 mcg tablet 25 mcg PO DAILY 02/07/15 [History Last Taken 09/29/16 09:00] bacillus coagulans-inulin 1 billion cell-250 mg capsule (Probiotic Formula (inulin)) 1 ea PO DAILY 12/07/15 [History Last Taken 09/29/16 09:00] gabapentin 100 mg capsule 600 mg PO BID 12/07/15 [History Last Taken 09/29/16 21:00] nifedipine 60 mg tablet,extended release 24 hr 180 mg PO DAILY 12/07/15 [History Last Taken 09/29/16 09:00] pantoprazole 20 mg tablet,delayed release 20 mg PO DAILY 12/07/15 [History Last Taken 09/29/16 09:00] paroxetine HCl 25 mg tablet,extended release 24 hr (Paxil CR) 75 mg PO DAILY depression 12/07/15 [History Last Taken 09/29/16 09:00] aspirin 325 mg tablet,delayed release 325 mg PO DAILY 04/26/16 [History Last Taken 09/29/16 09:00] buspirone 5 mg tablet 30 mg PO BID 04/26/16 [History Last Taken 09/29/16 21:00] budesonide 3 mg capsule,delayed,extended release (Entocort EC) 9 mg PO DAILY 09/30/16 [History Last Taken Unknown] food supplemt, lactose-reduced 0.08 gram-1.5 kcal/mL oral liquid (Ensure Enlive) 120 ml PO 4X/DAY 10/03/16 [Rx Last Taken Unknown] lorazepam 0.5 mg tablet 0.5 mg PO Q6H PRN PRN Anxiety ##10 10/03/16 [Rx Last Taken Unknown] dicyclomine 20 mg tablet 20 mg PO TID 09/02/22 [History Last Taken Unknown] Allergy/AdvReac Type Severity Reaction Status Date / Time codeine AdvReac Nausea & Verified 09/06/22 17:50 dizziness oxycodone HCl [From Percocet] AdvReac Nausea & Verified 09/06/22 17:50 dizziness Family History (Updated 09/06/22 @ 23:[address] Roseline Christian MD) Father Diabetes Dementia other (No marked maternal family history per report, including HD, DM, CA.) Surgical History (Updated 09/06/22 @ 23:[address] Roseline Christian MD) History of ankle surgery History of cataract surgery History of surgery on wrist S/P ORIF (open reduction internal fixation) fracture Social History household members: none Smoking Status: Never smoker substance use type: does not use ROS ROS Narrative Admission Review of Systems: CONSTITUTIONAL: No weight loss, fever, chills, + weakness or fatigue. HEENT: Eyes: No visual loss, blurred vision, double vision or yellow sclerae. Ears, Nose, Throat: No hearing loss, sneezing, congestion, runny nose or sore throat. SKIN: No rash or itching, lesions, wounds. CARDIOVASCULAR: No chest pain, chest pressure or chest discomfort, palpitations, edema, orthopnea, syncopal events. RESPIRATORY: No shortness of breath, cough or sputum, wheezing, hemoptysis. GASTROINTESTINAL: No anorexia, nausea, vomiting or diarrhea, abdominal pain, melena, BRBPR. GENITOURINARY: No dysuria, frequency, urgency or retention. NEUROLOGICAL: + Transient confusion, gait debility, questionable aphasia, No headache, syncope, paralysis, numbness or tingling in the extremities, focal weakness, change in bowel or bladder control, seizure. MUSCULOSKELETAL: + muscle, back pain, joint pain or stiffness. HEMATOLOGIC: + Easy bleeding or bruising. LYMPHATICS: No enlarged nodes. No history of splenectomy. PSYCHIATRIC:+ history of depression or anxiety. ENDOCRINOLOGIC: No reports of sweating, cold or heat intolerance. No polyuria or polydipsia. ALLERGIES: No history of asthma, hives, eczema or rhinitis. Vital Signs Vital Signs Vital Signs: 09/06/22 17:44 09/06/22 20:00 Temperature 96.3 F L Temperature Source Temporal Pulse Rate 73 78 Respiratory Rate 18 16 Blood Pressure 108/55 L 134/78 H Blood Pressure Mean 72 96 Pulse Ox 95 98 Oxygen Delivery Method Room Air Room Air Weight Weight: 83 lb Body Mass Index (BMI) 17.3 Physical Exam Narrative Physical Examination: General: Awake, alert, oriented to self, place, year, month and current president, remains cooperative, seated upright in the ED bed, fatigued, spouse feels as though she is back to her baseline Skin: Normal color, normal turgor, no icterus, no cyanosis except occasional staged ecchymoses. HEENT: AT/NC, EOMI, PERRLA, dry MM, no carotid bruits or JVD noted. Lungs: Diminished, greater bases, appropriate effort, no rales, ronchi or wheezing. Heart: Regular rate and rhythm; no gallop, rub audible. Abdomen: Soft, thin habitus, NTTP, no marked suprapubic discomfort with palpation, ND, distant normal BS, no HSM. Extremities: No cyanosis, clubbing, or edema. Neurological: Patient awake, alert, oriented as noted, cognitive function intact; pupils equally reactive to light and accommodation, cranial nerves II-XII grossly normal, moving all 4 extremities, no focal deficits, strength moderately globally creased, finger-nose and [id number] appropriate, Babinski equivocal, sensation intact. Psychiatric: Affect appears flat, fatigued, no acute current acute obvious evidence of depressive or anxiety feelings however patient does have underlying history and was recently at a psych facility for suicidal ideations, currently denies any suicidal ideations. Results Lab / Micro Data Result Diagrams: 09/06/22 18:30 09/06/22 18:30 Labs: Laboratory Results - last 24 hr 09/06/22 18:30: WBC 9.2, RBC 4.73, Hgb 14.7, Hct 43.6, MCV 92.2, MCH 31.1, MCHC 33.7, RDW Std Deviation 46.8 H, RDW Coeff of Amber 13.9, Plt Count 260, MPV 9.3, Immature Gran % (Auto) 0.200, Neut % (Auto) 71.8 H, Lymph % (Auto) 16.0 L, Jay % (Auto) 10.2 H, Eos % (Auto) 1.4, Baso % (Auto) 0.4, Absolute Neuts (auto) 6.6, Absolute Lymphs (auto) 1.48, Nucleated RBC % 0 09/06/22 18:30: PT 12.8, INR 1.0 09/06/22 18:30: Sodium 139, Potassium 3.6, Chloride 107, Carbon Dioxide 29.0, Anion Gap 3 L, BUN 29 H, Creatinine 1.28 H, Estim Creat Clear Calc 23.61, Est GFR (MDRD) Af Amer 53 L, Est GFR (MDRD) Non-Af 44 L, BUN/Creatinine Ratio 22.7 H, Glucose 92, Calcium 8.8, Total Bilirubin 0.30, AST 18, ALT 28, Alkaline Phosphatase 55, Troponin I High Sens 8, Total Protein 7.3, Albumin 3.8, Globulin 3.5, Albumin/Globulin Ratio 1.1 09/06/22 20:10: Urine Color Yellow, Urine Clarity Sl. Cloudy, Urine pH 5.0, Ur Specific [place] 1.015, Urine Protein Negative, Urine Glucose (UA) Normal, Urine Ketones Negative, Urine Occult Blood Negative, Urine Nitrite Positive H, Urine Bilirubin Negative, Urine Urobilinogen Normal, Ur Leukocyte Esterase 100 H, Urine RBC 0 SEEN, Urine WBC 0-5 SEEN, Ur Squamous Epith Cells 0-5 SEEN, Urine Bacteria 4+, Urine Mucus 0 SEEN 09/06/22 20:10: Urine Opiates Screen NEGATIVE, Urine Methadone Screen NEGATIVE, Ur Barbiturates Screen NEGATIVE, Ur Phencyclidine Scrn NEGATIVE, Ur Amphetamines Screen NEGATIVE, MDMA (Ecstasy) Screen NEGATIVE, U Benzodiazepines Scrn NEGATIVE, Urine Cocaine Screen NEGATIVE, U Cannabinoids Screen NEGATIVE, Ur Drug Screen Comment Radiology Impression Brain CT 09/06/22 18:15 IMPRESSION: Normal unenhanced CT scan of the brain. Electronically Signed: Lenin Lopez MD at 19:36 EST , Assessment & Plan Assessment/Plan (1) Acute confusion: PLAN: Plan The patient is a 71 y/o M w/ PMHx: Depression and Anxiety, Raynaud phenomenon, Hypothyroidism, GERD who presents to the [facility] ED on with history of sudden very focal onset confusion, debility with gait unsteadiness and aphasia lasting several minutes ~ 4 hours prior to initial ED arrival prompting evental ED evaluation; however, noted to be resolved upon arrival. notes she is back to her baseline. #1. Transient confusion, debility with gait unsteadiness, questionable aphasia concerning for CVA/TIA versus potential encephalopathy associated with #2: Will admit to PCU, will obtain MRI Brain, CTA Head and Neck, ECHO, PT/OT/Speech/Nutrition evaluation per protocol. Will allow permissive HTN, maintain on asa, statin w/ AM FLP, fall precautions. FLP, magnesium, TSH, hemoglobin A1c pending. Once work-up obtained may consider involvement of neurology if appropriate. #2. Possible Acute Encephalopathy secondary to Acute Complicated Urinary Tract Infection (would expect continued confusion with encephalopathy secondary to infection, currently resolved): UA upon ED evaluation mildly remarkable, pending UCx, continue IVFs, monitor I/Os, continue IV Rocephin w/ transition as able pending sensitivities and speciation. #3. Hypertension: Continue home regimen including nifedipine, also used for Raynaud's as noted, PRN hydralazine. #4. Hypothyroidism: We will continue patient on levothyroxine regimen, TSH pending. #5. IBS: Clarifying but per report patient does take Entocort for IBS per spouse report. #6. Anxiety and depression, recent psych admission for suicidal ideations: Patient currently denies any suicidal ideations, awaiting for clarification of any med updates, patient per prior record on Paxil, low-dose Ativan, BuSpar which will be continued pending information on regimen changes. #7. Raynaud's phenomenon: We will continue patient home nifedipine regimen. #8. GERD: We will continue patient on PPI. #9. DVT prophylaxis: SCDs, Lovenox. Charges/Coding Visit Charges Inpatient E&M: 12365 Init Hosp L3
[2022-09-06 22:00] VITALS: BP 117/78; PULSE 98; RESP 16; O2SAT 99
[2022-09-06 22:10] VITALS: BP 111/76; PULSE 69; RESP 18; TEMP 37.2; O2SAT 98
[2022-09-06] MEDS: Ceftriaxone 1 GM/50 ML BAG IV (22:24)
[2022-09-07] VITALS (13 sets, daily range): BP systolic 97–128; BP diastolic 57–82; PULSE 66–95; RESP 16–18; TEMP 36.4–37.5; O2SAT 96–99; BMI 16.1
--- NOTE | 2022-09-07 01:32 | MRI_ITS ---
EXAM: MR HEAD WITHOUT INTRAVENOUS CONTRAST CLINICAL INDICATION: TIA TECHNIQUE: Multiplanar and multisequence MR images of the brain were obtained without intravenous contrast. This report was created using State report generation technology. COMPARISON: CT head and CTA head and neck 09/07/2022. FINDINGS: BRAIN AND EXTRA-AXIAL SPACES: No diffusion restriction to suspect acute or subacute ischemic infarct. No midline shift and no mass effects. Normal ventricles and cisterns. No intra- or extra-axial hemorrhage. Posterior fossa structures are unremarkable. No hydrocephalus. SELLA: Unremarkable. Normal sella turcica, pituitary gland, infundibular stalk, optic chiasm and hypothalamus. AUDITORY SYSTEM: Unremarkable. The internal auditory canals are patent. BONES/JOINTS: Unremarkable. No discrete lytic or blastic abnormalities. SINUSES: Unremarkable as visualized. Clear. MASTOID AIR CELLS: Unremarkable as visualized. Clear. ORBITS: Unremarkable as visualized. Both globes, extraocular muscles, optic nerves and retrobulbar fat appear unremarkable. VASCULATURE: Unremarkable as visualized. Normal flow voids in the major intracranial circulation. MRI/Brain without Contrast IMPRESSION: 1. No MRI evidence of acute or subacute ischemic infarct or remote ischemic infarct, intracranial mass or acute intracranial abnormality. 2. No significant interval change when compared to CTA head and CTA head with contrast 09/06/2022. Electronically Signed: Ru Fitzgerald MD at 13:11 EST ,
--- NOTE | 2022-09-07 01:32 | ECHOD_ITS ---
Reason For Study: CVA Procedure This was a 2D Doppler, Color Flow transthoracic echocardiogram. The exam was of adequate technical quality. Exam performed portable in patient room. Left Ventricle Normal LV size. Left ventricular systolic function is normal. The estimated ejection fraction is 60 %. No evidence for diastolic dysfunction. No regional wall motion abnormalities noted. Right Ventricle Normal RV size. Normal systolic function. Atria Normal left atrium. Normal right atrium. No doppler evidence for ASD. Bubble contrast study negative for right to left interatrial shunt. Mitral Valve There is no mitral annular calcification. Normal mitral valve. Trivial mitral valve insufficiency. Tricuspid Valve Normal tricuspid valve. Mild tricuspid valve insufficiency. Right ventricular systolic pressure estimated to be 27 mmHg. Aortic Valve Trisinus/trileaflet aortic valve. Normal aortic valve. Pulmonic Valve The pulmonic valve is not well visualized. Great Vessels Normal sized aortic root. Calcified aortic root. Pericardium/Pleural No pericardial effusion. Medication Performed a rapid injection of agitated mix of 9 cc saline and 1cc air to assess for atrial septal defect. MMode/2D Measurements & Calculations LVIDd: 4.3 cm IVSd: 0.63 cm Ao root diam: 2.6 cm LVIDs: 3.2 cm LVPWd: 0.71 cm RVDd: 2.2 cm FS: 25.9 % LAV(MOD-sp4): 25.4 ml LA A4 area: 12.7 cm2 LA dimension(2D): 3.0 cm RA A4 area: 10.7 cm2 Time Measurements MV dec time: 0.26 sec Doppler Measurements & Calculations MV E max alexsander: 49.5 cm/sec Lat Peak E' Alexsander: 6.4 cm/sec Med Peak E' Alexsander: 6.6 cm/sec MV A max alexsander: 67.0 cm/sec E/E' lat: 7.7 E/E' med: 7.5 MV E/A: 0.74 MV V2 max: 97.6 cm/sec MV dec slope: 191.8 cm/sec2 Ao V2 max: 106.3 cm/sec MV max P.8 mmHg Ao max P.5 mmHg MV V2 mean: 51.7 cm/sec Ao V2 mean: 74.4 cm/sec MV mean P.3 mmHg Ao mean P.5 mmHg MV V2 VTI: 28.1 cm Ao V2 VTI: 28.2 cm AV (velocity ratio): 0.72 LV V1 max: 80.2 cm/sec PA V2 max: 84.4 cm/sec TR max alexsander: 246.3 cm/sec LV V1 max P.6 mmHg PA V2 mean: 66.5 cm/sec TR max P.3 mmHg LV V1 mean P.4 mmHg LV V1 mean: 56.7 cm/sec LV V1 VTI: 20.3 cm ECHO/Echo Complete Interpretation Summary Left ventricular systolic function is normal. The estimated ejection fraction is 60 %. Trivial mitral valve insufficiency. Mild tricuspid valve insufficiency. Calcified aortic root. Right ventricular systolic pressure estimated to be 27 mmHg. No evidence for diastolic dysfunction. Bubble contrast study negative for right to left interatrial shunt. Ordering Physician: Roseline Christian Referring Physician: Katey Henderson M.D. Performed By: Madelin Tafoya RCS
[2022-09-07] MEDS: 0.9% Saline Lock 10 ML Syringe IV (02:17)
[2022-09-07] MEDS: Gabapentin 600 MG Tablet PO ×3 (02:56→20:34)
[2022-09-07] MEDS: busPIRone 15 MG TABLET 30 MG PO ×3 (02:56→20:34)
[2022-09-07] MEDS: 0.9% Normal Saline 1,000 ML 100 ML IV (02:56)
--- NOTE | 2022-09-07 03:11 | CT_ITS ---
STUDY: CTA HEAD AND NECK WITH CONTRAST REASON FOR EXAM: Female, 71 years old patient with CVA RADIATION DOSAGE (If Supplied By Facility): CTDIvol = ( 8.1 ) mGy, DLP = ( 384.91 ) mGycm TECHNIQUE: CT angiography was performed with a multi-detector CT scanner. Data acquisition was obtained from the skull base through the vertex following intravenous administration of 75 mL of Isovue-370. MIP images were reconstructed from the axial data set. Post-processing of the angiographic images was performed, with multiplanar reformation and 3D reconstruction. Individualized dose optimization techniques were used for this CT. COMPARISON: No relevant priors. FINDINGS: Normal bilateral petrous carotid arteries. Normal right cavernous carotid artery with a normal supraclinoid bifurcation. There is calcified plaque formation of the left cavernous carotid artery, without a cross-sectional luminal stenosis. Normal right A1 segments of the anterior cerebral artery. Normal left A1 segments of the anterior cerebral artery. There is non-visualization of the anterior communicating artery (ACOM). Normal bilateral A2 segments of the anterior cerebral arteries. There is irregularity of the right M1 and M2 branches with minimal luminal narrowing, suggesting atherosclerotic plaque formation, without an occlusion. There is irregularity of the left M1 and M2 branches with minimal luminal narrowing, suggesting atherosclerotic plaque formation, without an occlusion. Normal right posterior communicating artery (PCOM). There is non-visualization of the left posterior communicating artery (PCOM). Normal bilateral vertebral arteries. Normal basilar artery with a normal basilar bifurcation. The visualized bilateral superior cerebellar (SCA) arteries are normal. Normal bilateral P1, P2 and visualized P3 segments of the posterior cerebral arteries. There is no demonstrated aneurysm of the [place]. There is gas within the cavernous sinuses. This is not visible on the unenhanced CT of the head suggesting this may have been caused by the recent intravenous administration of contrast. AORTIC ARCH: Normal visualized aortic arch. Normal origins of the brachiocephalic, left common carotid, and left subclavian arteries. RIGHT CAROTID ARTERIES: Normal right common carotid artery (CCA). Normal right common carotid bulb. Normal origin of the right internal carotid (ICA) artery without a hemodynamically significant stenosis. Normal visualized cervical portion of the right internal carotid artery. Normal origin of the right external carotid artery (ECA). LEFT CAROTID ARTERIES: Normal left common carotid artery (CCA). Normal left common carotid bulb. Normal origin of the left internal carotid (ICA) artery without a hemodynamically significant stenosis. Normal visualized cervical portion of the left internal carotid artery. Normal origin of the left external carotid artery (ECA). VERTEBRAL ARTERIES: Normal bilateral vertebral arteries. NECK ANATOMY: Lung apices appear to be clear. The thyroid has a grossly normal appearance. Visualized parotid and submandibular glands have a grossly normal appearance. The nasopharynx, oropharynx, hypopharynx and larynx have a grossly normal appearance. There is mild anterolisthesis at C3-4. There is mild retrolisthesis at C5-6 with reversal of the normal cervical lordosis. There is a mild bilevel degenerative changes of the cervical spine including degenerative disc disease, spondylosis and degenerative arthropathy. CT/CTA Head AND Neck W/ Contrast IMPRESSION: 1. No CT evidence for hemodynamically significant stenosis, thrombosis, dissection or aneurysm. 2. Gas is visible in the cavernous sinuses possibly secondary to recent administration of IV contrast. Electronically Signed: Ileana Barriga MD at 4:45 EST ,
[2022-09-07] MEDS: Levothyroxine 25 MCG TABLET PO (06:21)
--- NOTE | 2022-09-07 09:38 | CASEMGMT ---
DANYELL WARD Assessment: Face to Face with pt for initial transition planning/care coordination assessment. DANYELL WARD introduced self and role at [facility], pt voices understanding and consents to assessment. Pt in bed. Pt flat in bed, staring at ceiling, and doesn't make eye contact during assessment. Dr. Márquez into room and will return. Pt is A/O and answers all questions appropriately at this time. Care providers, pharmacy, and demographics verified/updated. Admitting Dx: Acute UTI, Encephalopathy, ? TIA. PCP: Katey Henderson. Specialists: HARJINDER Tyson. Preferred Pharmacy: [facility]. Insurance: Medicare Part A B; Aetna Sr Supplement. Prescription Benefit: Yes. LW/HPOA: Pt denies having a LW/HPOA. Pt is interested in paperwork. Will provide [employer] brochure. LNOK: Cleve Pappas, . Living Arrangements: Pt lives with in a two story home. The home has one or two steps to enter. Pt reports being able to navigate the steps without issue usually. Pt reports being mostly I in ADLs but assists when needed. Transportation: Pt's transports. DME/HHC/SNF: Pt has the following: cane, walker, shower chair, and grab bar. Pt denies needing any other DME. Pt reports having [facility] HHC in the past. Pt denies any SNF stays. Pt did stay at a psych facility in [place] for a week. Pt was experiencing depression and suicidal ideations. Pt denies any current thoughts of self-harm or harming others. Pt reports adhering to medication. I know what to do now and what warning signs to look for, pt states. Pt goes to [facility]. Pt states no concerns with going home at time of dc but is willing to DC with HHC if needed. Pt states no further concerns/needs. CM to follow. Advised pt to ask CM if any further question/concerns/needs arise, voices understanding. Pt Goal: Home. Possible HHC. Plan:? TBD.
[2022-09-07] MEDS: Enoxaparin 30 MG/0.3 ML Syringe SC (10:28)
[2022-09-07] MEDS: PARoxetine CR 12.5 MG Tablet 75 MG PO (10:30)
[2022-09-07] MEDS: Aspirin 81 MG TAB.CHEW PO (10:30)
[2022-09-07] MEDS: Pantoprazole Sodium 20 MG Tablet PO (10:30)
[2022-09-07] MEDS: Ensure Plus High Protein 120 ML LIQUID PO ×4 (10:34→20:35)
--- NOTE | 2022-09-07 13:31 | CASEMGMT ---
Addendum entered by Bailee Finch 09/07/22 14:03: Received call back from Cheri at [facility] and they are able to accept with planned start of care for 09/11/22. DANYELL WARD updated patient. Original Note: DANYELL WARD in to discuss HHC with patient. A list of HHC providers including quality and resource use data and consistent with the patient?s preferred geographical region, medical needs, and insurance network were provided from the [employer] Guide. Genny states her preferred HHC is [facility]. DANYELL WARD called and made referral with [facility], awaiting acceptance. CM will continue to follow this patient and plan for a safe discharge.
[2022-09-07] MEDS: 0.9% Normal Saline 1,000 ML 50 ML IV (13:58)
[2022-09-07 14:09] LABS: Absolute Lymphocyte Count 1.09 X10^3/uL (0.83-4.51); Absolute Neutrophil Count 6.4 X10^3/uL (2.0-7.7); Basophil# 0.03 X10^3/uL; Basophil% 0.4 % (0-1); Eosinophil# 0.12 X10^3/uL; Eosinophils% 1.4 % (0-5); Hematocrit 43.7 % (37-47); Hemoglobin 14.2 g/dL (12.0-15.0); Lymphocyte # 1.09 X10^3/ul (0.83-4.51); Lymphocyte % 13.2 % (19-41); Mean Corp Hgb Conc 32.5 g/dL (32-36); Mean Corpuscular Hgb 30.3 pg (27.0-32.0); Mean Corpuscular Volume 93.2 fL (81-99); Mean Platelet Vol. 8.9 fl (6.2-12.0); Monocyte# 0.64 X10^3/uL; Monocyte% 7.7 % (0-10); NRBC Flagged by Analyzer 0 % (0-5); Neutrophil # 6.37 X10^3/uL (2.7-7.7); Neutrophil % 76.9 % (47-70); Platelet Count 251 K/mm3 (150-450); RBC Distribution Width CV 13.9 % (11.6-14.6); RBC Distribution Width SD 47.8 fl (35.1-43.9); Red Blood Count 4.69 M/mm3 (4.2-5.4); White Blood Count 8.3 K/mm3 (4.4-11.0)
[2022-09-07 14:22] LABS: Hemoglobin A1c 5.1 % (3.8-5.6)
[2022-09-07 14:45] LABS: AST(SGOT) 9 U/L (15-37); Alanine Aminotransfer ALT/SGPT 23 U/L (13-56); Albumin, Serum 3.4 g/dL (3.2-5.0); Alkaline Phosphatase 58 U/L (45-117); Anion Gap 5 (5-15); BUN 19 mg/dL (7-18); BUN/Creat Ratio 21.4 RATIO (10-20); Chloride 111 mmol/L (98-107); Cholesterol 263 mg/dL (200); Creatinine, Serum 0.89 mg/dL (0.55-1.02); EST Glomerular Filtration Rate 66 mL/min (>60); Est Glom Filt Rate - Afr Amer 80 mL/min (>60); Estimated Creatinine Clearance 31.57 ml/min; Globulin 3.4 g/dL (2.2-4.2); Glucose 110 mg/dL (74-106); High Density Lipoprotein 94 mg/dL; Potassium 2.9 mmol/L (3.5-5.1); Protein, Total 6.8 g/dL (6.4-8.2); Sodium Level 142 mmol/L (136-145); Thyroid Stim Hormone (TSH) 0.98 uIU/mL (0.358-3.74); Triglycerides 130 mg/dL; Very Low Density Lipoprotein 26 mg/dL (5-40)
--- NOTE | 2022-09-07 14:58 | CASEMGMT ---
[employer] brochure provided as pt is interested in scheduling an appt for LW/HPOA.
--- NOTE | 2022-09-07 14:58 | CM.ED ---
Per chart review. No CVA. Thus, PHQ9 not completed. Laura ESTEBAN
[2022-09-07] MEDS: Potassium Chloride Oral Tablet 20 MEQ 60 MEQ PO (15:22)
--- NOTE | 2022-09-07 17:56 | PN.HOSP_ITS ---
Subjective Subjective Patient presented with acute confusion at home. Was seen here on Saturday and admitted to psych unit down in [place]. She was discharged on and came home. She was in her normal state of health and her went out came back and she was markedly confused without cause. It is unclear what happened. He states now she seems back to baseline but would like to make sure there is nothing organic occurring. Was admitted in [place] for concerns of suicide attempt. Patient does have a long psychiatric history. She does follow with a counselor and psychiatrist at baseline. Objective Data Objective Data Vital Signs: Vital Signs Temp Pulse Resp BP Pulse Ox O2 Del Method 98.7 F 95 18 101/65 97 Room Air 09/07/22 16:10 09/07/22 16:10 09/07/22 16:10 09/07/22 16:10 09/07/22 16:10 09/07/22 16:10 Oxygen Delivery Method Room Air Weight: 35 kg Body Mass Index (BMI) 16.1 Intake & Output: Intake and Output for Last 24 Hours 09/05/22 09/06/22 09/07/22 23:59 23:59 23:59 Intake Total 1328.33 / 1328.33 Output Total 1000 / 1000 Balance 328.33 / 328.33 Lab / Micro Data Result Diagrams: 09/07/22 13:50 09/07/22 13:50 Labs: Laboratory Results - last 24 hr 09/06/22 18:30: WBC 9.2, RBC 4.73, Hgb 14.7, Hct 43.6, MCV 92.2, MCH 31.1, MCHC 33.7, RDW Std Deviation 46.8 H, RDW Coeff of Amber 13.9, Plt Count 260, MPV 9.3, Immature Gran % (Auto) 0.200, Neut % (Auto) 71.8 H, Lymph % (Auto) 16.0 L, [place] % (Auto) 10.2 H, Eos % (Auto) 1.4, Baso % (Auto) 0.4, Absolute Neuts (auto) 6.6, Absolute Lymphs (auto) 1.48, Nucleated RBC % 0 09/06/22 18:30: PT 12.8, INR 1.0 09/06/22 18:30: Sodium 139, Potassium 3.6, Chloride 107, Carbon Dioxide 29.0, Anion Gap 3 L, BUN 29 H, Creatinine 1.28 H, Estim Creat Clear Calc 23.61, Est GFR (MDRD) Af Amer 53 L, Est GFR (MDRD) Non-Af 44 L, BUN/Creatinine Ratio 22.7 H , Glucose 92, Calcium 8.8, Total Bilirubin 0.30, AST 18, ALT 28, Alkaline Phosphatase 55, Troponin I High Sens 8, Total Protein 7.3, Albumin 3.8, Globulin 3.5, Albumin/Globulin Ratio 1.1 09/06/22 20:10: Urine Color Yellow, Urine Clarity Sl. Cloudy, Urine pH 5.0, Ur Specific [place] 1.015, Urine Protein Negative, Urine Glucose (UA) Normal, Urine Ketones Negative, Urine Occult Blood Negative, Urine Nitrite Positive H, Urine Bilirubin Negative, Urine Urobilinogen Normal, Ur Leukocyte Esterase 100 H, Urine RBC 0 SEEN, Urine WBC 0-5 SEEN, Ur Squamous Epith Cells 0-5 SEEN, Urine Bacteria 4+, Urine Mucus 0 SEEN 09/06/22 20:10: Urine Opiates Screen NEGATIVE, Urine Methadone Screen NEGATIVE, Ur Barbiturates Screen NEGATIVE, Ur Phencyclidine Scrn NEGATIVE, Ur Amphetamines Screen NEGATIVE, MDMA (Ecstasy) Screen NEGATIVE, U Benzodiazepines Scrn NEGATIVE, Urine Cocaine Screen NEGATIVE, U Cannabinoids Screen NEGATIVE, Ur Drug Screen Comment 09/06/22 22:05: Magnesium 2.0 09/07/22 13:50: WBC 8.3, RBC 4.69, Hgb 14.2, Hct 43.7, MCV 93.2, MCH 30.3, MCHC 32.5, RDW Std Deviation 47.8 H, RDW Coeff of Amber 13.9, Plt Count 251, MPV 8.9, Immature Gran % (Auto) 0.400, Neut % (Auto) 76.9 H, Lymph % (Auto) 13.2 L, [place] % (Auto) 7.7, Eos % (Auto) 1.4, Baso % (Auto) 0.4, Absolute Neuts (auto) 6.4, Absolute Lymphs (auto) 1.09, Nucleated RBC % 0 09/07/22 13:50: Sodium 142, Potassium 2.9 L, Chloride 111 H, Carbon Dioxide 26.0, Anion Gap 5, BUN 19 H, Creatinine 0.89, Estim Creat Clear Calc 31.57, Est GFR (MDRD) Af Amer 80, Est GFR (MDRD) Non-Af 66, BUN/Creatinine Ratio 21.4 H, Glucose 110 H, Calcium 9.0, Total Bilirubin 0.50, AST 9 L, ALT 23, Alkaline Phosphatase 58, Total Protein 6.8, Albumin 3.4, Globulin 3.4, Albumin/Globulin Ratio 1.0, Triglycerides 130, Cholesterol 263 H, LDL Cholesterol 143 H, VLDL Cholesterol 26, HDL Cholesterol 94, TSH 0.98 09/07/22 13:50: Hemoglobin A1c 5.1 Micro: Microbiology 09/06/22 20:05 Urine Catheter - Catheter Urine Culture - Preliminary GNR 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 Electronically Signed: Lenin Lopez MD at 19:36 EST , Brain MRI 09/07/22 01:32 IMPRESSION: 1. No MRI evidence of acute or subacute ischemic infarct or remote ischemic infarct, intracranial mass or acute intracranial abnormality. 2. No significant interval change when compared to CTA head and CTA head with contrast 09/06/2022. Electronically Signed: Ru Fitzgerald MD at 13:11 EST , Echocardiogram 09/07/22 01:32 Interpretation Summary Left ventricular systolic function is normal. The estimated ejection fraction is 60 %. Trivial mitral valve insufficiency. Mild tricuspid valve insufficiency. Calcified aortic root. Right ventricular systolic pressure estimated to be 27 mmHg. No evidence for diastolic dysfunction. Bubble contrast study negative for right to left interatrial shunt. Ordering Physician: Roseline Christian Referring Physician: Katey Henderson M.D. Performed By: Madelin Tafoya RCS Head/Neck CTA 09/07/22 03:11 IMPRESSION: 1. No CT evidence for hemodynamically significant stenosis, thrombosis, dissection or aneurysm. 2. Gas is visible in the cavernous sinuses possibly secondary to recent administration of IV contrast. Electronically Signed: Ileana Barriga MD at 4:45 EST Reading Location ID and State: [facility] / [place] , Service support , Physical Exam Const alert, oriented x3 and no apparent distress Constitutional Narrative: Cachectic, older, white female, sitting up in bed, at bedside, appears comfortable and nontoxic HEENT head/scalp atraumatic and moist oral mucous membranes HEENT Narrative: Mallampati 1 Head and Scalp: normocephalic Resp normal respiratory effort, no retractions, no use of accessory muscles and clear to auscultation bilaterally Auscultation: Negative for crackles, rhonchi or wheezes Cardio regular rate, regular rhythm, S1 normal heart sound, S2 normal heart sound, no murmurs, no rub, no gallops and no clicks GI normal to inspection, nondistended, normoactive bowel sounds, soft to palpation and non-tender Extremity no clubbing, cyanosis or edema Extremity Narrative: 2+ pedal pulses, decreased lean muscle mass Neuro oriented x3, CN's II-XII intact bilaterally, moves all extremities and no focal motor deficits Neuro Narrative: Response times are slightly delayed in speech seems slightly slurred but reports this is baseline Sensorium / Orientation: awake, alert, oriented to person, oriented to place and oriented to time Psych Psych Narrative: Eye contact is good, patient does not seem anxious or depressed, interactive with expression Assessment & Plan Assessment/Plan (1) Toxic metabolic encephalopathy: (2) Weakness: (3) Acute confusion: (4) Hypokalemia: PLAN: Plan Toxic/metabolic encephalopathy -Patient had concurrent weakness so stroke is being ruled out -Etiology is overall unclear-> may be related to UTI -She does have considerable psych history with multiple medications on board -CT brain unremarkable -MRI brain unremarkable for acute findings -CTA head and neck unremarkable -ECHO with EF 60% with RVSP 27 mmHg, neg bubble study -PT/OT recommending C -TSH is normal Generalized weakness -PT and OT have evaluated the patient recommending home health care for ongoing therapy Hypokalemia -P.o. potassium supplement given -Check a.m. 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 greater than 100,000 CFU's per mL -Continue Rocephin and will plan on discharging on antibiotics to complete treatment course for uncomplicated UTI HTN -Continue home regimen Raynaud's -Continue home nifedipine Hypothyroidism -TSH within normal limits -Continue home levothyroxine IBS -Continue home medication GERD -Continue PPI at Anxiety/depression -Recent psych admission for suicidal ideation -Follows with psych and counselor as an outpatient -Continue all psychiatric medications DVT prophylaxis -Continue SCDs -Continue Lovenox CODE STATUS Full code Charges/Coding Visit Charges Inpatient E&M: 75790 Subs Hosp L2
[2022-09-07] MEDS: Atorvastatin Calcium 80 MG Tablet PO (20:34)
[2022-09-07] MEDS: Acetaminophen 325 MG Tablet 650 MG PO (20:34)
[2022-09-07] MEDS: Ceftriaxone 1 GM/50 ML BAG IV (20:35)
[2022-09-08] VITALS (7 sets, daily range): BP systolic 103–120; BP diastolic 60–106; PULSE 66–76; RESP 16–17; TEMP 36.6–36.9; O2SAT 93–97; BMI 16.1
[2022-09-08] MEDS: Levothyroxine 25 MCG TABLET PO (05:20)
[2022-09-08] MEDS: Acetaminophen 325 MG Tablet 650 MG PO (05:21)
[2022-09-08 08:12] LABS: Anion Gap 5 (5-15); BUN 23 mg/dL (7-18); BUN/Creat Ratio 31.2 RATIO (10-20); Calcium,Total 9.1 mg/dL (8.5-10.1); Chloride 111 mmol/L (98-107); Creatinine, Serum 0.74 mg/dL (0.55-1.02); EST Glomerular Filtration Rate 82 mL/min (>60); Est Glom Filt Rate - Afr Amer 99 mL/min (>60); Glucose 99 mg/dL (74-106); Magnesium 1.9 mg/dL (1.6-2.6); Potassium 4.2 mmol/L (3.5-5.1); Sodium Level 141 mmol/L (136-145)
[2022-09-08] MEDS: Gabapentin 600 MG Tablet PO (09:23)
[2022-09-08] MEDS: Pantoprazole Sodium 20 MG Tablet PO (09:24)
[2022-09-08] MEDS: PARoxetine CR 12.5 MG Tablet 75 MG PO (09:24)
[2022-09-08] MEDS: Aspirin 81 MG TAB.CHEW PO (09:25)
[2022-09-08] MEDS: Enoxaparin 30 MG/0.3 ML Syringe SC (09:26)
[2022-09-08] MEDS: busPIRone 15 MG TABLET 30 MG PO (09:26)
[2022-09-08] MEDS: Ensure Plus High Protein 120 ML LIQUID PO (09:26)
[2022-09-08] MEDS: 0.9% Normal Saline 1,000 ML 50 ML IV (10:19)
--- NOTE | 2022-09-08 12:32 | DS.PCM_ITS ---
Providers Date of Admission: 09/06/22 Primary Care Physician: Dr. Katey Henderson MD Reason For Visit: ACUTE UTI, ENCEPHALOPATHY, ? TIA Diagnosis Discharge Diagnosis (1) Toxic metabolic encephalopathy: Status: Acute Code(s): G92.8 - Other toxic encephalopathy (2) Weakness: Status: Acute Code(s): R53.1 - Weakness (3) Acute confusion: Status: Acute Code(s): R41.0 - Disorientation, unspecified (4) Hypokalemia: Status: Acute Code(s): E87.6 - Hypokalemia Medications at Discharge Home Medications levothyroxine 25 mcg tablet 25 mcg PO DAILY Check with primary doctor 02/07/15 bacillus coagulans-inulin 1 billion cell-250 mg capsule (Probiotic Formula (inulin)) 1 ea PO DAILY Check with primary doctor 12/07/15 gabapentin 100 mg capsule 600 mg PO BID Check with primary doctor 12/07/15 nifedipine 60 mg tablet,extended release 24 hr 180 mg PO DAILY Check with primary doctor 12/07/15 pantoprazole 20 mg tablet,delayed release 20 mg PO DAILY STOMACHE 12/07/15 paroxetine HCl 25 mg tablet,extended release 24 hr (Paxil CR) 75 mg PO DAILY depression 12/07/15 aspirin 325 mg tablet,delayed release 325 mg PO DAILY HEART 04/26/16 buspirone 5 mg tablet 30 mg PO BID Check with primary doctor 04/26/16 budesonide 3 mg capsule,delayed,extended release (Entocort EC) 9 mg PO DAILY Check with primary doctor 09/30/16 lorazepam 0.5 mg tablet 0.5 mg PO Q6H PRN PRN Anxiety ##10 10/03/16 dicyclomine 20 mg tablet 20 mg PO TID Check with primary doctor 09/02/22 Metamucil Check with primary doctor 09/07/22 food supplemt, lactose-reduced 0.08 gram-1.5 kcal/mL oral liquid (Ensure Enlive) 120 ml PO 4X/DAY Check with primary doctor 09/07/22 loperamide 2 mg tablet 2 mg PO Q6H PRN Constipation 09/07/22 omeprazole 40 mg PO/SL DAILY Check with primary doctor 09/07/22 atorvastatin 80 mg tablet 20 mg PO QHS #30 tabs 09/08/22 cephalexin 500 mg capsule 500 mg PO BID #12 caps 09/08/22 Hospital Course Operations None Procedures 2-D Echocardiogram and - (MRI brain) Summary of Care Provided Minutes Spent on Discharge: 36 Hospital Course: Mrs. Pappas is a 71-year-old white female who presented to the emergency department on 09/06/2022 with acute confusion at home. She was seen here last S and admitted to psych unit down in [place] for threatened suicide. She was discharged on and came home. 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 Her memory of the situation is not consistent with his and it is unclear what happened. He reported after a dmission she seemed back to her normal state of health and had not had any more episodes. We did obtain an MRI and an echocardiogram. Echocardiogram showed an EF of 60% with trivial mitral valve insufficiency and mild tricuspid valve insufficiency as well as a calcific aortic root and her right ventricular systolic pressure was 27 mmHg. Her bubble study was negative. Her MRI showed no evidence of acute or subacute ischemic infarct and no interval change from the CTA of her head and neck which was done the day prior. CTA showed no vascular disease. A UA was obtained and found to be positive for nitrite, leuk esterase and was 4+ bacteria. A urine culture was obtained and she was found to have E. coli at greater than 100,000 CFU per high-powered field. She was maintained on ceftriaxone throughout her admission and discharged home to complete antibiotic course of 7 days with Keflex. Her prescription was faxed to the pharmacy prior to discharge. We also found that her lipids were markedly elevated when pursuing her work-up for stroke. Her total cholesterol was 263/LDL 143/HDL 94. A TSH was obtained and found to be 0.9. Her toxicology screen was unremarkable. It is unclear exactly what the episode was that brought her to the emergency department however urinary tract infection could have contributed to acute confusion. She was discharged home in stable condition on 09/08/2022 instructed to follow-up with her primary care physician within 1 to 2 weeks as well as her psychiatrist and counselor as scheduled previously. She will receive home health care after discharge. Discharge diagnoses: Acute toxic/metabolic encephalopathy-resolved Generalized weakness Hypokalemia-resolved Hyperglycemia-A1c 5.1 Hyperlipidemia E. coli urinary tract infection Hypertension Raynaud's disease Hypothyroidism IBS GERD Anxiety Depression Physical Exam Const alert, oriented x3 and no apparent distress Constitutional Narrative: Cachectic, older, white female, sitting up bed, watching television, appears comfortable and nontoxic General Appearance: cooperative, comfortable, well kempt and well developed Orientation / Consciousness: awake, oriented to person, oriented to place and oriented to time Exam Limitations: no limitations Nutritional Appearance: cachectic HEENT normocephalic, head/scalp atraumatic and moist oral mucous membranes HEENT Narrative: Dentition is fair, Mallampati is 1, no thrush, mild hearing loss Eyes PERRL, EOMs intact bilaterally and conjunctivae normal Eyes Narrative: No scleral icterus Neck no lymphadenopathy and supple Neck Narrative: Trachea midline, no thyroid enlargement Resp normal respiratory effort, no retractions, no use of accessory muscles and clear to auscultation bilaterally Auscultation: Negative for crackles, rhonchi or wheezes Cardio regular rate, regular rhythm, S1 normal heart sound, S2 normal heart sound, no murmurs, no rub, no gallops and no clicks GI normal to inspection, nondistended, normoactive bowel sounds, soft to palpation and non-tender Extremity no clubbing, cyanosis or edema Extremity Narrative: 2+ pedal pulses, decreased lean muscle mass Skin no rashes or lesions noted, no wounds, skin turgor normal and no jaundice Neuro oriented x3, CN's II-XII intact bilaterally, moves all extremities and no focal motor deficits Sensorium / Orientation: awake, alert, oriented to person, oriented to place and oriented to time Psych affect normal Psych Narrative: Eye contact is good, patient does not seem anxious or depressed, interactive with expression, very pleasant Weight / BMI Weight Weight: 35 kg Body Mass Index (BMI) 16.1 ABG / Lab / Microbiology Data Result Diagrams: 09/07/22 13:50 09/08/22 06:56 Laboratory: Laboratory Results - last 24 hr 09/07/22 13:50: WBC 8.3, RBC 4.69, Hgb 14.2, Hct 43.7, MCV 93.2, MCH 30.3, MCHC 32.5, RDW Std Deviation 47.8 H, RDW Coeff of Amber 13.9, Plt Count 251, MPV 8.9, Immature Gran % (Auto) 0.400, Neut % (Auto) 76.9 H, Lymph % (Auto) 13.2 L, Dundy % (Auto) 7.7, Eos % (Auto) 1.4, Baso % (Auto) 0.4, Absolute Neuts (auto) 6.4, Absolute Lymphs (auto) 1.09, Nucleated RBC % 0 09/07/22 13:50: Sodium 142, Potassium 2.9 L, Chloride 111 H, Carbon Dioxide 26.0, Anion Gap 5, BUN 19 H, Creatinine 0.89, Estim Creat Clear Calc 31.57, Est GFR (MDRD) Af Amer 80, Est GFR (MDRD) Non-Af 66, BUN/Creatinine Ratio 21.4 H, Glucose 110 H, Calcium 9.0, Total Bilirubin 0.50, AST 9 L, ALT 23, Alkaline Phosphatase 58, Total Protein 6.8, Albumin 3.4, Globulin 3.4, Albumin/Globulin Ratio 1.0, Triglycerides 130, Cholesterol 263 H, LDL Cholesterol 143 H, VLDL Cholesterol 26, HDL Cholesterol 94, TSH 0.98 09/07/22 13:50: Hemoglobin A1c 5.1 09/08/22 06:56: Sodium 141, Potassium 4.2, Chloride 111 H, Carbon Dioxide 25.0, Anion Gap 5, BUN 23 H, Creatinine 0.74, Estim Creat Clear Calc 28.10, Est GFR (MDRD) Af Amer 99, Est GFR (MDRD) Non-Af 82, BUN/Creatinine Ratio 31.2 H, Glucose 99, Calcium 9.1, Magnesium 1.9 Microbiology: Microbiology 09/06/22 20:05 Urine Catheter - Catheter Urine Culture - Final Escherichia coli Radiography Diagnostic Testing: Radiology Impression Brain MRI 09/07/22 01:32 IMPRESSION: 1. No MRI evidence of acute or subacute ischemic infarct or remote ischemic infarct, intracranial mass or acute intracranial abnormality. 2. No significant interval change when compared to CTA head and CTA head with contrast 09/06/2022. Electronically Signed: Ru Fitzgerald MD at 13:11 EST , D/C Instructions Discharge Diet: Low fat / Low cholesterol Discharge Activity: Return to Normal Activity Meaningful Use Info Meaningful Use Diagnoses (Choose all that apply): None applicable Discharge Plan Admission Admit Date/Time: 09/06/22 21:56 Primary Reason for Your Visit: Mental Status Change Attending Provider: Isabell Márquez Primary Care Provider: Katey Henderson Consulting Providers: Roseline Christian Discharge Orders/Prescriptions Prescriptions: New atorvastatin 80 mg Tablet 20 mg PO QHS Qty: 30 0RF cephalexin 500 mg capsule 500 mg PO BID Qty: 12 0RF Continued levothyroxine 25 MCG tablet 25 mcg PO DAILY Label Comments: thyroid pantoprazole 20 MG tablet 20 mg PO DAILY Label Comments: acid reflux nifedipine 60 MG tablet 180 mg PO DAILY Label Comments: heart rate gabapentin 100 MG capsule 600 mg PO BID Label Comments: nerve pain Probiotic Formula (inulin) 1 EACH capsule 1 ea PO DAILY Label Comments: stomach; treat IBS paroxetine HCl [Paxil CR] 25 MG tablet extended release 24 hr 75 mg PO DAILY Label Comments: Treat major depressive disorder buspirone 5 MG tablet 30 mg PO BID aspirin 325 MG tablet 325 mg PO DAILY Label Comments: blood thinner budesonide [Entocort EC] 3 MG capsule,delayed,extend.release 9 mg PO DAILY lorazepam 0.5 MG tablet 0.5 mg PO Q6H PRN PRN (Reason: Anxiety) Qty: 10 0RF dicyclomine 20 mg tablet 20 mg PO TID Ensure Enlive 120 ML liquid 120 ml PO 4X/DAY omeprazole 40 mg capsule 40 mg PO/SL DAILY loperamide 2 mg Tablet 2 mg PO Q6H PRN (Reason: Constipation) Metamucil Referrals / Follow Up: Katey Henderson MD [Primary Care Provider] - Within 2 Weeks Disposition Disposition (needs filled in before D/C Order can be placed): Home, Self Care Charges/Coding Visit Charges Inpatient E&M: 27803 Disch Hosp
--- NOTE | 2022-09-08 13:06 | NURSING ---
I spoke with Angela with [facility] informing her of pt's d/c.
[2022-09-08] MEDS: Loperamide 2 MG Capsule PO (14:19)
== END 2022-09-08 15:00 | disposition home health service (06) | DRG 689 ==
LOC: ED 22:21 → PCU 22:32
PROVIDERS: Admitting Provider Family Medicine; Emergency Provider Emergency Medicine; PCP Internal Medicine; Visit Provider Internal Medicine
DX: N39.0 Urinary tract infection, site not specified (principal); G92.8 Other toxic encephalopathy; E78.5 Hyperlipidemia, unspecified; I73.00 Raynaud's syndrome without gangrene; K58.9 Irritable bowel syndrome, unspecified; K21.9 Gastro-esophageal reflux disease without esophagitis; I10 Essential (primary) hypertension; I07.1 Rheumatic tricuspid insufficiency; E03.9 Hypothyroidism, unspecified; E87.6 Hypokalemia; F41.9 Anxiety disorder, unspecified; B96.20 Unspecified Escherichia coli [E. coli] as the cause of diseases classified elsewhere; R47.81 Slurred speech; F32.A Depression, unspecified; R73.9 Hyperglycemia, unspecified; Z79.82 Long term (current) use of aspirin; Z79.890 Hormone replacement therapy; Z79.899 Other long term (current) drug therapy
CPT/HCPCS: 36415; 70450; 70496; 70498; 70551; 80048; 80053; 80061; 80307; 81001; 83036; 83735; 84443; 84484; 85025; 85610; 87077; 87086; 87088; 87186; 92523; 92610; 93005; 93306; 97110; 97116; 97162; 97166; 97802; 99284; J7030; Q9967; A4216

== ENCOUNTER 2023-04-29 13:27 | Emergency (ER) | payer MEDICARE, OTHER, SELFPAY ==
[2023-04-29 13:28] VITALS: BP 112/63; PULSE 90; RESP 18; TEMP 36.4; O2SAT 96; BMI 17.8
--- NOTE | 2023-04-29 13:51 | ED.VIS.LOWEX ---
HPI History of Present Illness HPI Narrative: Patient presents with laceration to her right lower leg that occurred today. Patient states that her dog scratched her with its paw. Patient states the bleeding stopped after several minutes of pressure. Patient denies any paresthesias or weakness. Patient does not know when her last tetanus shot was. Patient denies any pain. Patient denies any other injuries. Chief Complaint: Laceration Informant: patient Occured/Mechanism Comment: Dog scratch Onset/Context/Timing Onset: Today Context: Sudden Onset Timing: Continuous Location: Posterior right lower leg Worsened by: Nothing Relieved by: Nothing Associated Symptoms Associated Symptoms: Negative for Parasthesia, Weakness or Loss of Funtion Narrative Tetanus Immunization: Unknown [facility] Medical History Anxiety Depression GERD (gastroesophageal reflux disease) HTN (hypertension) Hypothyroidism Home Medications levothyroxine 25 mcg tablet 25 mcg PO DAILY Check with primary doctor 02/07/15 [History Last Taken 09/29/16 09:00] Bacillus coagulans-inulin 1 billion cell-250 mg capsule (Probiotic Formula (inulin)) 1 ea PO DAILY Check with primary doctor 12/07/15 [History Last Taken 09/29/16 09:00] gabapentin 100 mg capsule 600 mg PO BID Check with primary doctor 12/07/15 [History Last Taken 09/29/16 21:00] nifedipine 60 mg tablet,extended release 24 hr 180 mg PO DAILY Check with primary doctor 12/07/15 [History Last Taken 09/29/16 09:00] pantoprazole 20 mg tablet,delayed release 20 mg PO DAILY STOMACHE 12/07/15 [History Last Taken 09/29/16 09:00] paroxetine HCl 25 mg tablet,extended release 24 hr (Paxil CR) 75 mg PO DAILY depression 12/07/15 [History Last Taken 09/29/16 09:00] aspirin 325 mg tablet,delayed release 325 mg PO DAILY HEART 04/26/16 [History Last Taken 09/29/16 09:00] buspirone 5 mg tablet 30 mg PO BID Check with primary doctor 04/26/16 [History Last Taken 09/29/16 21:00] budesonide 3 mg capsule,delayed,extended release (Entocort EC) 9 mg PO DAILY Check with primary doctor 09/30/16 [History Last Taken Unknown] lorazepam 0.5 mg tablet 0.5 mg PO Q6H PRN PRN Anxiety ##10 10/03/16 [Rx Last Taken Unknown] dicyclomine 20 mg tablet 20 mg PO TID Check with primary doctor 09/02/22 [History Last Taken Unknown] Metamucil Check with primary doctor 09/07/22 [History Last Taken Unknown] food supplemt, lactose-reduced 0.08 gram-1.5 kcal/mL oral liquid (Ensure Enlive) 120 ml PO 4X/DAY Check with primary doctor 09/07/22 [History Last Taken Unknown] loperamide 2 mg tablet 2 mg PO Q6H PRN Constipation 09/07/22 [History Last Taken Unknown] omeprazole 40 mg PO/SL DAILY Check with primary doctor 09/07/22 [History Last Taken Unknown] atorvastatin 80 mg tablet 20 mg (1/4 x 80 mg) PO QHS #30 tabs 09/08/22 [Rx Last Taken Unknown] cephalexin 500 mg capsule 500 mg PO BID #12 caps 09/08/22 [Rx Last Taken Unknown] amoxicillin 875 mg-potassium clavulanate 125 mg tablet 875 mg (0.875 x 875-125 mg) PO Q12H #10 TABLETS 04/29/23 [Rx Last Taken Unknown] Allergy/AdvReac Type Severity Reaction Status Date / Time codeine AdvReac Nausea & Verified 04/29/23 13:28 dizziness oxycodone HCl [From Percocet] AdvReac Nausea & Verified 04/29/23 13:28 dizziness Family History Father Diabetes Dementia Surgical History History of ankle surgery History of cataract surgery History of surgery on wrist S/P ORIF (open reduction internal fixation) fracture Social History household members: none Smoking Status: Never smoker substance use type: does not use ROS ROS ED Constitutional Constitutional ED: Denies chills or fever(s) Eyes Eyes: Denies blurry vision or change in vision ENT ENT ED: Denies rhinorrhea or sore throat Cardiovascular Cardiovascular: Denies chest pain or palpitations Respiratory/Chest Respiratory/Chest: Denies cough or dyspnea Gastrointestinal Gastrointestinal: Denies nausea or vomiting Genitourinary Genitourinary ED: Denies dysuria or hematuria Musculoskeletal Musculoskeletal: Denies back pain or neck pain Integumentary Denies abscess or rash Neurologic Neurologic: Denies headache(s) or weakness Allergic/Immunologic Allergic/Immunologic ED: Denies mouth swelling or urticaria EXAM Physical Exam Const Vital Signs: 04/29/23 13:28 Temperature 97.5 F L Temperature Source Temporal Pulse Rate 90 Respiratory Rate 18 Blood Pressure 112/63 Blood Pressure Mean 79 Pulse Ox 96 Oxygen Delivery Method Room Air Positive well nourished and well developed General Appearance ED: well developed and NAD HEENT Reports moist mucous membranes Neck full ROM and supple Extremity Extremity Narrative: There is a 7 cm V-shaped linear laceration over the posterior aspect of the right lower leg. There is moderate gapping of the wound margins. There are no foreign bodies visualized. There is no active bleeding noted. Strength is 5/5 bilaterally in the lower extremities. There are no sensory deficits noted. Pedal pulses are equal bilaterally. Neuro oriented x3, CN's II-XII intact bilaterally, moves all extremities and no sensory deficits noted Sensorium / Orientation: alert Motor Exam: strength 5/5 throughout Psych mental status grossly normal MDM MDM MDM Narrative Medical decision making narrative: Patient was given a tetanus booster. The wound was cleaned and irrigated with copious amounts of normal saline. The wound was anesthetized with 1% plain lidocaine locally. The wound was closed with 9 simple interrupted #4-0 nylon sutures under sterile technique. Patient tolerated the procedure well. Bacitracin dressing was applied. Patient was instructed to keep the wound clean and dry. Patient was instructed to change the dressing daily and apply bacitracin, Neosporin, or triple antibiotic ointment. Patient was given a dose of Augmentin here. Patient was given a prescription for Augmentin. Patient was instructed to follow-up in 7 days for wound recheck and suture removal. Patient understood and was agreeable with the plan. All questions were answered. Procedures Lacerations Right lower leg: Length: 7 cm Depth: Sub Q Shape: Linear (V-shaped) Prep: Sterile Conditions and Chlorhexadine Laceration repair: Irrigated, Lidocaine, Local, Skin sutures and Wound explored Irrigated (ml): 100 Number of Sutures/[place]: 9 Suture Information: Ethilon and 4-0 Discharge Plan Triage Chief Complaint: Laceration ED Provider: Arjun Sarabia Dx/Rx/DC Orders Clinical Impression: Laceration of right lower leg Instructions: ED Laceration: All Closures, ED Laceration Extremity Prescriptions: New amoxicillin-pot clavulanate [amoxicillin-pot clavulanate] 875-125 mg tablet 875 mg PO Q12H Qty: 10 0RF No Action levothyroxine 25 MCG tablet 25 mcg PO DAILY Patient Comments: thyroid pantoprazole 20 MG tablet 20 mg PO DAILY Patient Comments: acid reflux nifedipine 60 MG tablet 180 mg PO DAILY Patient Comments: heart rate gabapentin 100 MG capsule 600 mg PO BID Patient Comments: nerve pain Probiotic Formula (inulin) 1 EACH capsule 1 ea PO DAILY Patient Comments: stomach; treat IBS paroxetine HCl [Paxil CR] 25 MG tablet extended release 24 hr 75 mg PO DAILY Patient Comments: Treat major depressive disorder buspirone 5 MG tablet 30 mg PO BID aspirin 325 MG tablet 325 mg PO DAILY Patient Comments: blood thinner budesonide [Entocort EC] 3 MG capsule,delayed,extend.release 9 mg PO DAILY lorazepam 0.5 MG tablet 0.5 mg PO Q6H PRN PRN (Reason: Anxiety) Qty: 10 0RF dicyclomine 20 mg tablet 20 mg PO TID Ensure Enlive 120 ML liquid 120 ml PO 4X/DAY omeprazole 40 mg capsule 40 mg PO/SL DAILY loperamide 2 mg Tablet 2 mg PO Q6H PRN (Reason: Constipation) Metamucil atorvastatin 80 mg Tablet 20 mg PO QHS Qty: 30 0RF cephalexin 500 mg capsule 500 mg PO BID Qty: 12 0RF Primary Care Provider: Katey Henderson Referrals: Katey Henderson MD [Primary Care Provider] - 7 Days for suture removal Disposition Disposition: Home, Self Care
[2023-04-29] MEDS: Lidocaine 1% (20 ml mdv) 20 ML Vial INFILT (14:46)
[2023-04-29] MEDS: Diphth,Pertuss(Acell),Tet Vac 0.5 ML Vial IM (14:58)
[2023-04-29] MEDS: Amox/Clavulanate 875 MG Tablet PO (15:17)
== END 2023-04-29 15:27 | disposition home or self-care (01) ==
PROVIDERS: Emergency Provider Emergency Medicine; PCP Internal Medicine; Visit Provider Emergency Medicine
DX: S81.811A Laceration without foreign body, right lower leg, initial encounter (principal); Z23 Encounter for immunization; X58.XXXA Exposure to other specified factors, initial encounter
CPT/HCPCS: 12002; 90471; 90715; 99283

== ENCOUNTER 2024-03-26 09:21 | Emergency (ER) | payer MEDICARE, OTHER, SELFPAY ==
[2024-03-26 09:21] VITALS: BP 107/70; PULSE 73; RESP 14; TEMP 35.7; O2SAT 98
--- NOTE | 2024-03-26 09:36 | EDS_ITS ---
HPI History of Present Illness Chief Complaint: Other, Pain/Inj Detail of Chief Complaint: Left leg bruising Informant: patient Onset/Context/Timing Onset: Days Narrative Narrative: Patient presents with a bump and bruising to her left hector that she wanted to have checked. She states she did hit her leg a couple days ago. She has mild tenderness to the area. She is not on anticoagulation other than aspirin. She has been able to ambulate without difficulty. [facility] Medical History GERD (gastroesophageal reflux disease) HTN (hypertension) Hypothyroidism Depression Anxiety Home Medications ?Medication ?Instructions ?Recorded ?Last Taken ?Type levothyroxine 25 mcg tablet 25 mcg PO DAILY Check with primary 02/07/15 09/29/16 09:00 History doctor Bacillus coagulans-inulin 1 1 ea PO DAILY Check with primary 12/07/15 09/29/16 09:00 History billion cell-250 mg capsule doctor (Probiotic Formula (inulin)) gabapentin 100 mg capsule 600 mg PO BID Check with primary 12/07/15 09/29/16 21:00 History doctor nifedipine 60 mg tablet,extended 180 mg PO DAILY Check with primary 12/07/15 09/29/16 09:00 History release 24 hr doctor pantoprazole 20 mg tablet,delayed 20 mg PO DAILY STOMACHE 12/07/15 09/29/16 09:00 History release paroxetine HCl 25 mg 75 mg PO DAILY depression 12/07/15 09/29/16 09:00 History tablet,extended release 24 hr (Paxil CR) aspirin 325 mg tablet,delayed 325 mg PO DAILY HEART 04/26/16 09/29/16 09:00 History release buspirone 5 mg tablet 30 mg PO BID Check with primary 04/26/16 09/29/16 21:00 History doctor budesonide 3 mg 9 mg PO DAILY Check with primary 09/30/16 Unknown History capsule,delayed,extended release doctor (Entocort EC) lorazepam 0.5 mg tablet 0.5 mg PO Q6H PRN PRN Anxiety ##10 10/03/16 Unknown Rx dicyclomine 20 mg tablet 20 mg PO TID Check with primary 09/02/22 Unknown History doctor Metamucil Check with primary doctor 09/07/22 Unknown History food supplemt, lactose-reduced 120 ml PO 4X/DAY Check with 09/07/22 Unknown History 0.08 gram-1.5 kcal/mL oral liquid primary doctor (Ensure Enlive) loperamide 2 mg tablet 2 mg PO Q6H PRN Constipation 09/07/22 Unknown History omeprazole 40 mg PO/SL DAILY Check with 09/07/22 Unknown History primary doctor atorvastatin 80 mg tablet 20 mg (1/4 x 80 mg) PO QHS #30 tabs 09/08/22 Unknown Rx cephalexin 500 mg capsule 500 mg PO BID #12 caps 09/08/22 Unknown Rx amoxicillin 875 mg-potassium 875 mg PO Q12H #10 TABLETS 04/29/23 Unknown Rx clavulanate 125 mg tablet Allergy/AdvReac Type Severity Reaction Status Date / Time codeine AdvReac Nausea & Verified 03/26/24 09:22 dizziness oxycodone HCl (From Percocet) AdvReac Nausea & Verified 03/26/24 09:22 dizziness Family History Father Diabetes Dementia Surgical History S/P ORIF (open reduction internal fixation) fracture History of surgery on wrist History of cataract surgery History of ankle surgery Social History household members: none Smoking Status: Never smoker substance use type: does not use ROS ROS ED Constitutional Constitutional ED: Denies chills or fever(s) Eyes Eyes: Denies discharge from eye(s) ENT ENT ED: Denies discharge from eye(s) or sore throat Cardiovascular Cardiovascular: Denies chest pain Respiratory/Chest Respiratory/Chest: Denies dyspnea Gastrointestinal Gastrointestinal: Denies abdominal pain Musculoskeletal Musculoskeletal: Reports extremity pain; Denies back pain Integumentary Reports other Details: Bruising left hector ; Denies Abrasions or rash Neurologic Neurologic: Denies headache(s) or weakness Psychiatric Psychiatric: Denies anxiety or depression Allergic/Immunologic Allergic/Immunologic ED: Denies lip swelling or urticaria EXAM Physical Exam Const Vital Signs: 03/26/24 09:21 Temperature 96.3 F L Temperature Source Temporal Pulse Rate 73 Respiratory Rate 14 Blood Pressure 107/70 Blood Pressure Mean 82 Pulse Ox 98 Oxygen Delivery Method Room Air Positive well nourished and well developed General Appearance ED: well developed Eyes EOMs intact bilaterally Chest Wall inspection of chest normal and palpation of chest normal Resp normal respiratory effort and clear to auscultation bilaterally Cardio regular rate and regular rhythm Extremity Extremity Narrative: Focal hematoma measuring approximately 3 cm in diameter over the anterior left hector. Ecchymosis is noted just distal to this area. No bony tenderness with palpation along the tibia. Neuro oriented x3 and no sensory deficits noted Motor Exam: strength 5/5 throughout Psych mental status grossly normal MDM MDM MDM Narrative Medical decision making narrative: Patient was advised that she is a hematoma under the skin with bruising. We did discuss anticipated extension of her bruising distally as she is up and on her feet. We discussed that this will take several weeks if not a month or 2 to completely resolve. Zbigniew wrap is applied over the area for light compression to help with reabsorption. I do not feel imaging is necessary. Patient comfo rtable with the plan. Discharge Plan Triage Chief Complaint: Other, Pain/Inj ED Provider: Celia Hudson Dx/Rx/DC Orders Clinical Impression: Hematoma Instructions: ED Hematoma Prescriptions: No Action levothyroxine 25 MCG tablet 25 mcg PO DAILY Patient Comments: thyroid pantoprazole 20 MG tablet 20 mg PO DAILY Patient Comments: acid reflux nifedipine 60 MG tablet 180 mg PO DAILY Patient Comments: heart rate gabapentin 100 MG capsule 600 mg PO BID Patient Comments: nerve pain Probiotic Formula (inulin) 1 EACH capsule 1 ea PO DAILY Patient Comments: stomach; treat IBS paroxetine HCl [Paxil CR] 25 MG tablet extended release 24 hr 75 mg PO DAILY Patient Comments: Treat major depressive disorder buspirone 5 MG tablet 30 mg PO BID aspirin 325 MG tablet 325 mg PO DAILY Patient Comments: blood thinner budesonide [Entocort EC] 3 MG capsule,delayed,extend.release 9 mg PO DAILY lorazepam 0.5 MG tablet 0.5 mg PO Q6H PRN PRN (Reason: Anxiety) Qty: 10 0RF dicyclomine 20 mg tablet 20 mg PO TID Ensure Enlive 120 ML liquid 120 ml PO 4X/DAY omeprazole 40 mg capsule 40 mg PO/SL DAILY loperamide 2 mg Tablet 2 mg PO Q6H PRN (Reason: Constipation) Metamucil atorvastatin 80 mg Tablet 20 mg PO QHS Qty: 30 0RF cephalexin 500 mg capsule 500 mg PO BID Qty: 12 0RF amoxicillin-pot clavulanate [amoxicillin-pot clavulanate] 875-125 mg tablet 875 mg PO Q12H Qty: 10 0RF Primary Care Provider: Katey Henderson Referrals: Katey Henderson MD [Primary Care Provider] - 1-2 Weeks Print Language: Barbadian Disposition Disposition: Home, Self Care Discharge Date/Time: 03/26/24 09:51
[2024-03-26 09:45] VITALS: BMI 32.3
== END 2024-03-26 09:51 | disposition home or self-care (01) ==
LOC: ED 09:43
PROVIDERS: Emergency Provider Emergency Medicine; PCP Internal Medicine; Visit Provider Emergency Medicine
DX: S80.12XA Contusion of left lower leg, initial encounter (principal); X58.XXXA Exposure to other specified factors, initial encounter; Z79.82 Long term (current) use of aspirin
CPT/HCPCS: 99282

== ENCOUNTER 2025-01-01 19:48 | Emergency (ER) | payer MEDICARE, OTHER, SELFPAY ==
[2025-01-01 19:49] VITALS: BP 110/62; PULSE 116; RESP 15; TEMP 36.2; O2SAT 96
[2025-01-01 20:13] VITALS: BMI 18.7
[2025-01-01] MEDS: Lidocaine 1% (20 ml mdv) 20 ML Vial INFILT (21:35)
--- NOTE | 2025-01-01 22:25 | ED.VIS.LOWEX ---
HPI History of Present Illness Chief Complaint: Wound Informant: patient and spouse/S.O. Narrative Narrative: Left leg laceration wound after her dog jumped off the couch landing on her leg. States the toenail cut her skin and tore it. She is not on any blood thinners. Tetanus unknown. Bleeding controlled with pressure. No other injuries. Tetanus Immunization: Unknown [facility] Medical History GERD (gastroesophageal reflux disease) HTN (hypertension) Hypothyroidism Depression Anxiety Home Medications ?Medication ?Instructions ?Recorded ?Last Taken ?Type levothyroxine 25 mcg tablet 25 mcg PO DAILY Check with primary 02/07/15 09/29/16 09:00 History doctor Bacillus coagulans-inulin 1 1 ea PO DAILY Check with primary 12/07/15 09/29/16 09:00 History billion cell-250 mg capsule doctor (Probiotic Formula (inulin)) gabapentin 100 mg capsule 600 mg PO BID Check with primary 12/07/15 09/29/16 21:00 History doctor nifedipine 60 mg tablet,extended 180 mg PO DAILY Check with primary 12/07/15 09/29/16 09:00 History release 24 hr doctor pantoprazole 20 mg tablet,delayed 20 mg PO DAILY STOMACHE 12/07/15 09/29/16 09:00 History release paroxetine HCl 25 mg 75 mg PO DAILY depression 12/07/15 09/29/16 09:00 History tablet,extended release 24 hr (Paxil CR) aspirin 325 mg tablet,delayed 325 mg PO DAILY HEART 04/26/16 09/29/16 09:00 History release buspirone 5 mg tablet 30 mg PO BID Check with primary 04/26/16 09/29/16 21:00 History doctor budesonide 3 mg 9 mg PO DAILY Check with primary 09/30/16 Unknown History capsule,delayed,extended release doctor (Entocort EC) lorazepam 0.5 mg tablet 0.5 mg PO Q6H PRN PRN Anxiety ##10 10/03/16 Unknown Rx dicyclomine 20 mg tablet 20 mg PO TID Check with primary 09/02/22 Unknown History doctor Metamucil Check with primary doctor 09/07/22 Unknown History food supplemt, lactose-reduced 120 ml PO 4X/DAY Check with 09/07/22 Unknown History 0.08 gram-1.5 kcal/mL oral liquid primary doctor (Ensure Enlive) loperamide 2 mg tablet 2 mg PO Q6H PRN Constipation 09/07/22 Unknown History omeprazole 40 mg PO/SL DAILY Check with 09/07/22 Unknown History primary doctor atorvastatin 80 mg tablet 20 mg (1/4 x 80 mg) PO QHS #30 tabs 09/08/22 Unknown Rx cephalexin 500 mg capsule 500 mg PO BID #12 caps 09/08/22 Unknown Rx amoxicillin 875 mg-potassium 875 mg (0.875 x 875-125 mg) PO 04/29/23 Unknown Rx clavulanate 125 mg tablet Q12H #10 TABLETS Allergy/AdvReac Type Severity Reaction Status Date / Time codeine AdvReac Nausea & Verified 01/01/25 19:49 dizziness oxycodone HCl (From Percocet) AdvReac Nausea & Verified 01/01/25 19:49 dizziness Family History Father Diabetes Dementia Surgical History S/P ORIF (open reduction internal fixation) fracture History of surgery on wrist History of cataract surgery History of ankle surgery Social History household members: none Smoking Status: Never smoker substance use type: does not use ROS ROS ED Constitutional Constitutional ED: Denies fever(s) Gastrointestinal Gastrointestinal: Denies diarrhea, nausea or vomiting Musculoskeletal Musculoskeletal: Reports extremity pain Integumentary Reports wounds; Denies rash Neurologic Neurologic: Denies paresthesias or weakness EXAM Physical Exam Const Vital Signs: 01/01/25 19:49 Temperature 97.2 F L Temperature Source Temporal Pulse Rate 116 H Respiratory Rate 15 Blood Pressure 110/62 Blood Pressure Mean 78 Pulse Ox 96 Oxygen Delivery Method Room Air Positive well nourished and well developed General Appearance ED: well developed and NAD HEENT Reports moist mucous membranes normocephalic and atraumatic Eyes General Eye ED: Yes normal appearance of both eyes Neck full ROM Chest Wall Chest: Negative for tenderness Resp normal respiratory effort and normal air movement Effort and Inspection: symmetric chest movement; Negative for respiratory distress Cardio regular rate, regular rhythm and no murmurs Peripheral Pulses: pulses 2+ throughout GI normal to inspection, nondistended, normoactive bowel sounds and non-tender Palpation: Negative for guarding or rebound tenderness present Extremity normal to inspection Extremity Narrative: See below. General Extremety ED: Negative for edema or tenderness General Extremity: Negative for edema Neuro oriented x3 and no sensory deficits noted Sensorium / Orientation: awake and alert Skin Skin Narrative: Left lower extremity:. Flap skin tear left lower leg medial aspect 4 x 4 cm. Subcutaneous exposure, superficial skin more towards the edges. Bleeding controlled with pressure. MDM MDM MDM Narrative Medical decision making narrative: Interventions / MDM: Differential diagnosis: Skin tear, tetanus vaccination Diagnosis considered but do not suspect: No visualized foreign body noted. My EKG interpretation: N/A Imaging independently reviewed and interpreted by myself: N/A External documents reviewed: N/A Test considered but not ordered:N/A ED course: Patient with skin flap tear from dog nail. No bite involved. Tetanus updated. Preparations for wound care and suturing. Discussed with patient and spouse flap repair would be performed as advanced age. Likely will dry off and slough off as minimal circulation to this area. They understand this. Procedure note: Verbal consent. Normal sterile conditions. Total of 4 cc 1% lidocaine used for local analgesia around the wound. Copious flushing with 250 cc saline fluid of the wound. Additional 4 x 4's used to cleanse subcutaneous area, no gross foreign bodies were noted. Total 7, 5-0 nylon simple interrupted sutures used to close and approximate the flap. Good approximately performed. Xeroform dressing placed by myself with 2 by 2s and Kerlix dressing. Patient tolerated procedure well. Due to flap laceration, patient referred to wound clinic for outpatient valuation. Discussed appropriate wound care with patient and spouse. Xeroform dressings were sent home with spouse and patient. Re-evaluation: stable Disposition discussed with patient/family/significant other: Patient and spouse Case discussed with consulting clinician: N/A This note was generated with [employer] dictation software. It may contain incorrect words, spelling, and punctuation that were not noted in checking the note before signing. Discharge Plan Triage Chief Complaint: Wound ED Provider: Crow Pathak Dx/Rx/DC Orders Clinical Impression: Noninfected skin tear of left lower extremity, Tetanus toxoid vaccination administered at current visit Instructions: ED Laceration, All Closures, ED Skin Tear (Skin Avulsion) Prescriptions: No Action levothyroxine 25 MCG tablet 25 mcg PO DAILY Patient Comments: thyroid pantoprazole 20 MG tablet 20 mg PO DAILY Patient Comments: acid reflux nifedipine 60 MG tablet 180 mg PO DAILY Patient Comments: heart rate gabapentin 100 MG capsule 600 mg PO BID Patient Comments: nerve pain Probiotic Formula (inulin) 1 EACH capsule 1 ea PO DAILY Patient Comments: stomach; treat IBS paroxetine HCl [Paxil CR] 25 MG tablet extended release 24 hr 75 mg PO DAILY Patient Comments: Treat major depressive disorder buspirone 5 MG tablet 30 mg PO BID aspirin 325 MG tablet 325 mg PO DAILY Patient Comments: blood thinner budesonide [Entocort EC] 3 MG capsule,delayed,extend.release 9 mg PO DAILY lorazepam 0.5 MG tablet 0.5 mg PO Q6H PRN PRN (Reason: Anxiety) Qty: 10 0RF dicyclomine 20 mg tablet 20 mg PO TID Ensure Enlive 120 ML liquid 120 ml PO 4X/DAY omeprazole 40 mg capsule 40 mg PO/SL DAILY loperamide 2 mg Tablet 2 mg PO Q6H PRN (Reason: Constipation) Metamucil atorvastatin 80 mg Tablet 20 mg PO QHS Qty: 30 0RF cephalexin 500 mg capsule 500 mg PO BID Qty: 12 0RF amoxicillin-pot clavulanate [amoxicillin-pot clavulanate] 875-125 mg tablet 875 mg PO Q12H Qty: 10 0RF Primary Care Provider: Katey Henderson Referrals: Katey Henderson MD [Primary Care Provider] - [facility],[place] [facility] [Non-Staff] - 1 Week Activity Restrictions/Additional Instructions: Skin flap from tear. 7 sutures placed as bandage covering. This will likely dry up and come off. Wound care as discussed. Your tetanus was updated. Follow-up with wound clinic. Print Language: Grenadian Disposition Disposition: Home, Self Care
[2025-01-01] MEDS: Diphth,Pertuss(Acell),Tet Vac 0.5 ML Vial IM (22:32)
[2025-01-01 22:52] VITALS: BP 102/58; PULSE 90; RESP 16; TEMP 36.7; O2SAT 94
== END 2025-01-01 22:53 | disposition home or self-care (01) ==
PROVIDERS: Emergency Provider Emergency Medicine; PCP Internal Medicine; Visit Provider Emergency Medicine
DX: S81.812A Laceration without foreign body, left lower leg, initial encounter (principal); W54.1XXA Struck by dog, initial encounter; I10 Essential (primary) hypertension; K21.9 Gastro-esophageal reflux disease without esophagitis; E03.9 Hypothyroidism, unspecified; F32.A Depression, unspecified; F41.9 Anxiety disorder, unspecified; Z23 Encounter for immunization; Z79.82 Long term (current) use of aspirin; Z79.890 Hormone replacement therapy; Z79.899 Other long term (current) drug therapy
CPT/HCPCS: 12004; 90471; 99283

== ENCOUNTER 2025-01-06 13:39 | Outpatient (RCR) | payer MEDICARE, OTHER, SELFPAY ==
[2025-01-06 14:05] VITALS: BP 98/60; PULSE 81; RESP 16; TEMP 36.5; BMI 19.5
--- NOTE | 2025-01-07 08:16 | WC ---
PHOTO 01/06/25 LEFT [facility]
--- NOTE | 2025-01-08 14:54 | HP.PCM_ITS ---
History of Present Illness Date of Service: 01/06/25 Chief Complaint: Traumatic avulsion injury of the left medial calf History of Wound: This is a 74-year-old female who sustained a traumatic injury to her left medial calf on January 01, 2025. At the time of her injury, she presented to the [facility] Emergency Department, where she was found to have an avulsion injury with a significant adherent cutaneous flap. The injury was caused by the nails of her dog, who had jumped off the couch. In the emergency department, the flap was sutured in place using seven 5-0 nylon sutures. The patient was placed on Keflex and Augmentin orally, which continue at this time. Patient is generally healthy for her age, though has a history of wwta-fryw-[id number], GERD, hypertension, hypothyroidism, and osteoporosis. She denies a history of diabetes mellitus, myocardial infarction, ce rebrovascular accident, renal disease, and pulmonary disease. Her BMI is 19.5. She is . [facility] Medical History Traumatic open wound of lower leg Avulsion injury GERD (gastroesophageal reflux disease) HTN (hypertension) Hypothyroidism Depression Anxiety Home Medications ?Medication ?Instructions ?Recorded ?Last Taken ?Type levothyroxine 25 mcg tablet 25 mcg PO DAILY Check with primary 02/07/15 09/29/16 09:00 History doctor Bacillus coagulans-inulin 1 1 ea PO DAILY Check with p skye 12/07/15 09/29/16 09:00 History billion cell-250 mg capsule doctor (Probiotic Formula (inulin)) gabapentin 100 mg capsule 600 mg PO BID Check with moose mcmillan 12/07/15 09/29/16 21:00 History doctor nifedipine 60 mg tablet,extended 180 mg PO DAILY Check with primary 12/07/15 09/29/16 09:00 History release 24 hr doctor pantoprazole 20 mg tablet,delayed 20 mg PO DAILY STOMA ED 12/07/15 09/29/16 09:00 History release paroxetine HCl 25 mg 75 mg PO DAILY depression 09/29/16 09:00 History tablet,extended release 24 hr (Paxil CR) aspirin 325 mg tablet,delayed 325 mg PO DAILY HEART 09/29/16 09:00 History release buspirone 5 mg tablet 30 mg PO BID Check with prim lesley 04/26/16 09/29/16 21:00 History doctor budesonide 3 mg 9 mg PO DAILY Check with moose mcmillan 09/30/16 Unknown History capsule,delayed,extended release doctor (Entocort EC) lorazepam 0.5 mg tablet 0.5 mg PO Q6H PRN PRN Anxiet y ##10 10/03/16 Unknown Rx dicyclomine 20 mg tablet 20 mg PO TID Check with prim lesley 09/02/22 Unknown History doctor Metamucil Check with primary doctor Unknown History food supplemt, lactose-reduced 120 ml PO 4X/DAY Check with 09/07/22 Unknown History 0.08 gram-1.5 kcal/mL oral liquid primary doctor (Ensure Enlive) loperamide 2 mg tablet 2 mg PO Q6H PRN Constipation 09/07/22 Unknown History omeprazole 40 mg PO/SL DAILY Check with 09/07/22 Unknown History primary doctor atorvastatin 80 mg tablet 20 mg (1/4 x 80 mg) PO QHS # 30 tabs 09/08/22 Unknown Rx cephalexin 500 mg capsule 500 mg PO BID #12 caps 09/08 Unknown Rx amoxicillin 875 mg-potassium 875 mg (0.875 x 875-125 m g) PO 04/29/23 Unknown Rx clavulanate 125 mg tablet Q12H #10 TABLETS Allergy/AdvReac Type Severity Reaction Status Date / Time acetaminophen (From Percocet) Allergy Other Verified 01/06/25 14:05 oxycodone (From Percocet) Allergy Other Verified 01/06/25 14:05 codeine AdvReac Nausea & Verified 01/06/25 14:05 dizziness oxycodone HCl (From Percocet) AdvReac Nausea & Verified 01/06/25 14:05 dizziness Family History Father Diabetes Dementia Surgical History S/P ORIF (open reduction internal fixation) fracture History of surgery on wrist History of cataract surgery History of ankle surgery Social History household members: none Smoking Status: Never smoker substance use type: does not use Vital Signs Vital Signs Vital Signs: Weight Weight: 95 lb Body Mass Index (BMI) 19.5 Physical Exam Const alert, oriented x3, no apparent distress, average body habitus and well nourished Constitutional Narrative: The patient's BMI is 19.5. General Appearance: cooperative, comfortable, well kempt and well developed Orientation / Consciousness: awake, oriented to person, oriented to place and oriented to time Exam Limitations: no limitations HEENT normocephalic and head/scalp atraumatic Head and Scalp: normal to inspection, normocephalic and atraumatic Face and Sinus: normal facial exam Nose: external nose normal External Ear: external ears normal Eyes EOMs intact bilaterally General Eye: normal appearance of both eyes Neck full ROM Resp normal respiratory effort, normal air movement, no retractions and no use of accessory muscles Effort and Inspection: able to speak in complete sentences Extremity no calf tenderness General Extremity: Negative for clubbing or cyanosis Skin Wound Narrative: A traumatic wound is noted on the patient's left medial calf. It appears to be an avulsion injury, with a resultant flap of skin. At the time of the patient's Emergency Department visit, the flap was repositioned, and sutured in place using seven 5-0 nylon sutures. The avulsion flap remains in place, as well as the anchoring sutures. Skin edges appear to be well-approximated. There is no sign of infection or cellulitis. However, the avulsion flap appears to be dusky and ecchymotic. Neuro oriented x3, CN's II-XII intact bilaterally, moves all extremities, no focal motor deficits and no sensory deficits noted Sensorium / Orientation: awake, alert, oriented to person, oriented to place and oriented to time Psych Appearance: grossly normal and appropriate Attitude: calm Activity / Motor Behavior: appropriate eye contact Speech: normal speech Mood & Affect: euthymic mood Thought Process: normal thought process Thought Content: normal thought content Attention / Concentration: attention grossly intact Debridement Note Debridement Note No debridement was completed: No debridement was completed today Charges/Coding Visit Charges Office Visits / Consults: [id number] OV L4 New 45min Assessment/Plan Assessment/Plan (1) Traumatic open wound of lower leg: CODE(S): S81.809A - Unspecified open wound, unspecified lower leg, initial encounter QUALIFIERS: Encounter type: initial encounter Laterality: left Qualified Code(s): S81.802A - Unspecified open wound, left lower leg, initial encounter (2) Avulsion injury: CODE(S): T14.8XXA - Other injury of unspecified body region, initial encounter (3) S/P ORIF (open reduction internal fixation) fracture: CODE(S): Z96.7 - Presence of other bone and tendon implants; Z87.81 - Personal history of (healed) traumatic fracture (4) S/P ORIF (open reduction internal fixation) fracture: CODE(S): Z98.890 - Other specified postprocedural states; Z87.81 - Personal history of (healed) traumatic fracture (5) History of surgery on wrist: CODE(S): Z98.890 - Other specified postprocedural states (6) History of cataract surgery: CODE(S): Z98.49 - Cataract extraction status, unspecified eye (7) History of ankle surgery: CODE(S): Z98.890 - Other specified postprocedural states (8) Hypothyroidism: CODE(S): E03.9 - Hypothyroidism, unspecified QUALIFIERS: Hypothyroidism type: acquired Qualified Code(s): E03.9 - Hypothyroidism, unspecified (9) Raynaud phenomenon: CODE(S): I73.00 - Raynaud's syndrome without gangrene QUALIFIERS: Raynaud?s-associated gangrene presence: without gangrene Qualified Code(s): I73.00 - Raynaud's syndrome without gangrene (10) Osteoporosis: CODE(S): M81.0 - Age-related osteoporosis without current pathological fracture (11) Btcl-xkxr-tawpptdfmaebhzc: 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 The injury occurred when the patient's dog traumatized her leg with its nails. Immediately following her injury, the patient presented to the [facility] emergency Department, where the avulsion flap was repositioned and sutured in place. The flap remains anchored, with skin edges well-approximated. Sutures remain in place. As it has only been approximately 5 days since the injury, it appears too soon to remove the sutures. Therefore, they are to be left in place. The patient is to be rescheduled for an appointment in 1 week, at which time consideration may be given to removal of the patient's sutures. The skin flap itself appears somewhat dusky, ischemic, and ecchymotic. There is question as to whether this will survive. In fact, the skin flap may not remain viable, and may ultimately slough, or require debridement/excision. This matter will be reassessed upon the patient's return visit in 1 week. The patient is to continue her oral antibiotics until completion. Total time: 45 minutes
== END 2025-01-06 23:59 | disposition home or self-care (01) ==
LOC: WC 13:39
PROVIDERS: PCP Internal Medicine; Referring Provider Internal Medicine; Visit Provider Surgery
DX: S81.802A Unspecified open wound, left lower leg, initial encounter (principal); I73.00 Raynaud's syndrome without gangrene; E03.9 Hypothyroidism, unspecified; K21.9 Gastro-esophageal reflux disease without esophagitis; I10 Essential (primary) hypertension; Z79.899 Other long term (current) drug therapy; Z79.890 Hormone replacement therapy; T14.8XXA Other injury of unspecified body region, initial encounter; E78.6 Lipoprotein deficiency; Z98.49 Cataract extraction status, unspecified eye; W54.1XXA Struck by dog, initial encounter
CPT/HCPCS: 99203; G0463

== ENCOUNTER 2025-02-02 14:00 | Outpatient (RCR) | payer MEDICARE, OTHER, SELFPAY ==
[2025-01-07 00:47] VITALS: BP 98/60; PULSE 81; RESP 16; TEMP 36.5; BMI 19.5
[2025-01-13 13:59] VITALS: BP 103/60; PULSE 83; RESP 16; TEMP 36.1; BMI 19.5
--- NOTE | 2025-01-14 20:08 | HP.PCM_ITS ---
History of Present Illness Date of Service: 01/13/25 Chief Complaint: Traumatic avulsion injury of the left medial calf History of Wound: This is a 74-year-old female who sustained a traumatic injury to her left medial calf on January 01, 2025. At the time of her injury, she presented to the [facility] Emergency Department, where she was found to have an avulsion injury with a significant adherent cutaneous flap. The injury was caused by the nails of her dog, who had jumped off the couch. In the Emergency Department, the flap was sutured in place using seven 5-0 nylon sutures. The patient was placed on Keflex and Augmentin orally, and was discharged. The patient is generally healthy for her age, though has a history of vfcy-kwop-xyyeumnqapmuwzp, GERD, hypertension, hypothyroidism, and osteoporosis. She denies a history of diabetes mellitus, myocardial infarction, cerebrovascular accident, renal disease, and pulmonary disease. Her BMI is 19.5. She is . [facility] Medical History Traumatic open wound of lower leg Avulsion injury GERD (gastroesophageal reflux disease) HTN (hypertension) Hypothyroidism Depression Anxiety Home Medications ?Medication ?Instructions ?Recorded ?Last Taken ?Type levothyroxine 25 mcg tablet 25 mcg PO DAILY Check with primary 02/07/15 09/29/16 09:00 History doctor Bacillus coagulans-inulin 1 1 ea PO DAILY Check with jesus cheung 12/07/15 09/29/16 09:00 History billion cell-250 mg capsule doctor (Probiotic Formula (inulin)) gabapentin 100 mg capsule 600 mg PO BID Check with moose mcmillan 12/07/15 09/29/16 21:00 History doctor nifedipine 60 mg tablet,extended 180 mg PO DAILY Check with primary 12/07/15 09/29/16 09:00 History release 24 hr doctor pantoprazole 20 mg tablet,delayed 20 mg PO DAILY [facility] 12/07/15 09/29/16 09:00 History release paroxetine HCl 25 mg 75 mg PO DAILY depression 09/29/16 09:00 History tablet,extended release 24 hr (Paxil CR) aspirin 325 mg tablet,delayed 325 mg PO DAILY HEART 09/29/16 09:00 History release buspirone 5 mg tablet 30 mg PO BID Check with jayro sutton 04/26/16 09/29/16 21:00 History doctor budesonide 3 mg 9 mg PO DAILY Check with moose mcmillan 09/30/16 Unknown History capsule,delayed,extended release doctor (Entocort EC) lorazepam 0.5 mg tablet 0.5 mg PO Q6H PRN PRN Anxiet y ##10 10/03/16 Unknown Rx dicyclomine 20 mg tablet 20 mg PO TID Check with prim lesley 09/02/22 Unknown History doctor Metamucil Check with primary doctor Unknown History food supplemt, lactose-reduced 120 ml PO 4X/DAY Check with 09/07/22 Unknown History 0.08 gram-1.5 kcal/mL oral liquid primary doctor (Ensure Enlive) loperamide 2 mg tablet 2 mg PO Q6H PRN Constipation 09/07/22 Unknown History omeprazole 40 mg PO/SL DAILY Check with 09/07/22 Unknown History primary doctor atorvastatin 80 mg tablet 20 mg (1/4 x 80 mg) PO QHS # 30 tabs 09/08/22 Unknown Rx cephalexin 500 mg capsule 500 mg PO BID #12 caps 09/08 Unknown Rx amoxicillin 875 mg-potassium 875 mg (0.875 x 875-125 m g) PO 04/29/23 Unknown Rx clavulanate 125 mg tablet Q12H #10 TABLETS Allergy/AdvReac Type Severity Reaction Status Date / Time acetaminophen (From Percocet) Allergy Other Verified 01/06/25 14:05 oxycodone (From Percocet) Allergy Other Verified 01/06/25 14:05 codeine AdvReac Nausea & Verified 01/06/25 14:05 dizziness oxycodone HCl (From Percocet) AdvReac Nausea & Verified 01/06/25 14:05 dizziness Family History Father Diabetes Dementia Surgical History S/P ORIF (open reduction internal fixation) fracture History of surgery on wrist History of cataract surgery History of ankle surgery Social History household members: none Smoking Status: Never smoker substance use type: does not use Vital Signs Vital Signs Vital Signs: Weight Weight: 95 lb Body Mass Index (BMI) 19.5 Physical Exam Const alert, oriented x3, no apparent distress, average body habitus and well nourished Constitutional Narrative: The patient's BMI is 19.5. General Appearance: cooperative, comfortable, well kempt and well developed Orientation / Consciousness: awake, oriented to person, oriented to place and oriented to time Exam Limitations: no limitations HEENT normocephalic and head/scalp atraumatic Head and Scalp: normal to inspection, normocephalic and atraumatic Face and Sinus: normal facial exam Nose: external nose normal External Ear: external ears normal Eyes EOMs intact bilaterally General Eye: normal appearance of both eyes Neck full ROM Resp normal respiratory effort, normal air movement, no retractions and no use of accessory muscles Effort and Inspection: able to speak in complete sentences Extremity no calf tenderness General Extremity: Negative for clubbing or cyanosis Skin Wound Narrative: A traumatic wound is noted on the patient's left medial calf. It appears to be an avulsion injury, with a resultant flap of skin. At the time of the patient's Emergency Department visit, the flap was repositioned, and sutured in place using seven 5-0 nylon sutures. The avulsion flap remains in place, as well as the anchoring sutures. Skin edges appear to be well-approximated. There is no sign of infection or cellulitis. However, the avulsion flap appears to be dusky and ecchymotic, with question of ischemia. Neuro oriented x3, CN's II-XII intact bilaterally, moves all extremities, no focal motor deficits and no sensory deficits noted Sensorium / Orientation: awake, alert, oriented to person, oriented to place and oriented to time Psych Appearance: grossly normal and appropriate Attitude: calm Activity / Motor Behavior: appropriate eye contact Speech: normal speech Mood & Affect: euthymic mood Thought Process: normal thought process Thought Content: normal thought content Attention / Concentration: attention grossly intact Debridement Note Debridement Note Debridement Free Text: The patient suture repair remains intact, with skin edges well-approximated. There remains a question as to whether the traumatic skin flap is ischemic. At today's visit, a total of 3 sutures removed, every other suture which had been placed. It is anticipated that the remaining sutures will continue to enhance approximation of the wound. Post-Debridement Measurements and Additional Note: Post-Debridement Measurements/Treatment WC - Nurse 1 - General Ulcer Assessment Start: 01/13/25 13:56 Freq: Status: Active Protocol: NATHALIE Activity Type Activity Date Activity User E-sign Co-sign Detail Recorded Client Recorded Date Recorded By Document 01/13/25 13:59 DL [id number] 01/13/25 14:01 DL 01/13/25 13:59 WC - Today's Visit Information Type of service Follow-up Visit (Physician/JOURNAL CLERK ) Arrival Mode Ambulatory Transfer Assistance None Patient Identification Verified (Name & Yes ) Patient Requires Transmission-Based No Precautions Height and Weight Body Mass Index (BMI) 19.5 BMI Classification Normal Vital Signs Temperature (97.8 F-99.1 F) 97 F L Temperature Source Temporal Pulse Rate (60-100) 83 Pulse Location Monitor Respiratory Rate (12-18) 16 Respiratory rate source Observation Blood Pressure (90/60-120/80) 103/60 Blood Pressure Mean 74 Source Monitor History Since Last Visit- (Skip if this is Patient's initial visit) Have you changed medications since your No last visit? Any new allergies or adverse reactions No Had a fall/change in ADL's that may No increase risk of falls Signs or symptoms of abuse and/or No neglect since last visit Have you been in the hospital since your No last visit? Has dressing in place as prescribed Yes Has compression in place as prescribed Yes Has offloadiing in place as prescribed Yes Experienced any changes in pain level or No management Pain Scale: 0-10 Numeric Is Patient Pain Free? Yes WC - Nurse 1 - General Ulcer Measurement Start: 01/13/25 13:56 Freq: Status: Active Protocol: Activity Type Activity Date Activity User E-sign Co-sign Detail Recorded Client Recorded Date Recorded By Document 01/13/25 13:59 DL [id number] 01/13/25 14:01 DL 01/13/25 13:59 Wound Center Nurse 1 #1 LT MED LE -Current Size (cm) - Length 0.1 -Current Size (cm) - Width 0.1 -Current Size (cm) - Depth 0.1 -Total Square Cm 0.01 -Exudate Amt None Present -Wound Margin Indistinct, Non -Visible -Granulation Amt None Present (0 %) -Necrosis Amt Small (1-33%) -Necrotic Tissue Type Adherent Slough -Structure Exposed N/A -Texture (Maylin-wound Skin Appearance) Scarring -Moisture (Maylin-wound Skin Appearance) No Abnormality -Color (Maylin-wound Skin Appearance) No Abnormality -Temperature (Maylin-wound Skin No Abnormality Appearance) (Pt Warm) -Tenderness on Palpation (Maylin-wound No Skin Appearance) -Ulcer Cleansing Rinsed/ Irrigated with Saline -Foul Odor after Cleansing No -Wound Comment(s) Skin tear/ sutures intact. - Nurse 2 - General Ulcer CM Notes Start: 01/13/25 13:56 Freq: Status: Active Protocol: Activity Type Activity Date Activity User E-sign Co-sign Detail Recorded Client Recorded Date Recorded By Document 01/13/25 14:27 [id number] 01/13/25 14:29 01/13/25 14:27 Wound Center Nurse 2 -Time 14:27 -Correct Patient Yes -Correct Side, Site, Position Yes -Correct Procedure No -Procedure Performed No -Circular Undermining No -Foul Odor after Cleansing No -Bioengineered Tissue No -Bleeding Controlled with NA -Wound Comment(s) sutures intact Pain Scale: 0-10 Numeric Is Patient Pain Free? Yes - Nurse 3 - General Ulcer D/C NN Start: 01/13/25 13:56 Freq: Status: Active Protocol: Activity Type Activity Date Activity User E-sign Co-sign Detail Recorded Client Recorded Date Recorded By Document 01/13/25 14:38 [facility] [id number] 01/13/25 14:38 [facility] 01/13/25 14:38 Wound Care Center Nurse 3 #1 LT MED LE -Ulcer Cleansing Rinsed/ Irrigated with Saline -Foul Odor after Cleansing No -Primary Dressing Applied NonAdherent Contact Layer -Primary Dressing Covered/Secured with Dry Gauze & Roll Gauze, Secured with Tape Treatment Response Procedure Tolerated Well Pain Scale: 0-10 Numeric Is Patient Pain Free? Yes - Visit Discharge Discharge Condition Stable Ambulatory Status Ambulatory,Cane Transportation Private Auto Charges/Coding Visit Charges Office Visits / Consults: [id number] OV L3 Est 20min Assessment/Plan Assessment/Plan (1) Traumatic open wound of lower leg: CODE(S): S81.809A - Unspecified open wound, unspecified lower leg, initial encounter QUALIFIERS: Encounter type: subsequent encounter Laterality: left Qualified Code(s): S81.802D - Unspecified open wound, left lower leg, subsequent encounter (2) Avulsion injury: CODE(S): T14.8XXA - Other injury of unspecified body region, initial encounter (3) S/P ORIF (open reduction internal fixation) fracture: CODE(S): Z96.7 - Presence of other bone and tendon implants; Z87.81 - Personal history of (healed) traumatic fracture (4) S/P ORIF (open reduction internal fixation) fracture: CODE(S): Z98.890 - Other specified postprocedural states; Z87.81 - Personal history of (healed) traumatic fracture (5) History of surgery on wrist: CODE(S): Z98.890 - Other specified postprocedural states (6) History of cataract surgery: CODE(S): Z98.49 - Cataract extraction status, unspecified eye (7) History of ankle surgery: CODE(S): Z98.890 - Other specified postprocedural states (8) Hypothyroidism: CODE(S): E03.9 - Hypothyroidism, unspecified QUALIFIERS: Hypothyroidism type: acquired Qualified Code(s): E03.9 - Hypothyroidism, unspecified (9) Raynaud phenomenon: CODE(S): I73.00 - Raynaud's syndrome without gangrene QUALIFIERS: Raynaud?s-associated gangrene presence: without gangrene Qualified Code(s): I73.00 - Raynaud's syndrome without gangrene (10) Osteoporosis: CODE(S): M81.0 - Age-related osteoporosis without current pathological fracture (11) Tvjf-hcdl-adgqplnxygvarck: 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 The injury occurred when the patient's dog traumatized her leg with its nails. Immediately following her injury, the patient presented to the [facility] emergency Department, where the avulsion flap was repositioned and sutured in place. The flap remains anchored, with skin edges well-approximated. Several of the sutures have been removed today, though [address]. It has been approximately 12 days since the injury and suture repair. The patient is to be rescheduled for an appointment in 1 week, at which time the traumatic wound will be reexamined. The skin flap appears somewhat dusky and ecchymotic, with question as to whether there may be some ischemia. There is question as to whether this flap will survive. In fact, the skin flap may not remain viable, and may ultimately slough, or require debridement/excision. This matter will be reassessed upon the patient's return visit in 1 week, and thereafter if necessary. Total time: 25 minutes
[2025-01-19 13:46] VITALS: BP 98/54; PULSE 92; RESP 16; TEMP 36.7; BMI 19.5
--- NOTE | 2025-01-19 19:00 | HP.PCM_ITS ---
History of Present Illness Date of Service: 01/19/25 Chief Complaint: Traumatic avulsion injury of the left medial calf History of Wound: This is a 74-year-old female who sustained a traumatic injury to her left medial calf on January 01, 2025. At the time of her injury, she presented to the [facility] Emergency Department, where she was found to have an avulsion injury with a significant adherent cutaneous flap. The injury was caused by the nails of her dog, who had jumped off the couch. In the Emergency Department, the flap was sutured in place using seven 5-0 nylon sutures. The patient was placed on Keflex and Augmentin orally, and was discharged. The patient is generally healthy for her age, though has a history of [id number], GERD, hypertension, hypothyroidism, and osteoporosis. She denies a history of diabetes mellitus, myocardial infarction, cerebrovascular accident, renal disease, and pulmonary disease. Her BMI is 19.5. She is . [facility] Medical History Traumatic open wound of lower leg Avulsion injury GERD (gastroesophageal reflux disease) HTN (hypertension) Hypothyroidism Depression Anxiety Home Medications ?Medication ?Instructions ?Recorded ?Last Taken ?Type levothyroxine 25 mcg tablet 25 mcg PO DAILY Check with primary 02/07/15 09/29/16 09:00 History doctor Bacillus coagulans-inulin 1 1 ea PO DAILY Check with jesus cheung 12/07/15 09/29/16 09:00 History billion cell-250 mg capsule doctor (Probiotic Formula (inulin)) gabapentin 100 mg capsule 600 mg PO BID Check with moose mcmillan 12/07/15 09/29/16 21:00 History doctor nifedipine 60 mg tablet,extended 180 mg PO DAILY Check with primary 12/07/15 09/29/16 09:00 History release 24 hr doctor pantoprazole 20 mg tablet,delayed 20 mg PO DAILY [facility] 12/07/15 09/29/16 09:00 History release paroxetine HCl 25 mg 75 mg PO DAILY depression 09/29/16 09:00 History tablet,extended release 24 hr (Paxil CR) aspirin 325 mg tablet,delayed 325 mg PO DAILY HEART 09/29/16 09:00 History release buspirone 5 mg tablet 30 mg PO BID Check with jayro sutton 04/26/16 09/29/16 21:00 History doctor budesonide 3 mg 9 mg PO DAILY Check with moose mcmillan 09/30/16 Unknown History capsule,delayed,extended release doctor (Entocort EC) lorazepam 0.5 mg tablet 0.5 mg PO Q6H PRN PRN Anxiet y ##10 10/03/16 Unknown Rx dicyclomine 20 mg tablet 20 mg PO TID Check with prim lesley 09/02/22 Unknown History doctor Metamucil Check with primary doctor Unknown History food supplemt, lactose-reduced 120 ml PO 4X/DAY Check with 09/07/22 Unknown History 0.08 gram-1.5 kcal/mL oral liquid primary doctor (Ensure Enlive) loperamide 2 mg tablet 2 mg PO Q6H PRN Constipation 09/07/22 Unknown History omeprazole 40 mg PO/SL DAILY Check with 09/07/22 Unknown History primary doctor atorvastatin 80 mg tablet 20 mg (1/4 x 80 mg) PO QHS # 30 tabs 09/08/22 Unknown Rx cephalexin 500 mg capsule 500 mg PO BID #12 caps 09/08 Unknown Rx amoxicillin 875 mg-potassium 875 mg (0.875 x 875-125 m g) PO 04/29/23 Unknown Rx clavulanate 125 mg tablet Q12H #10 TABLETS Allergy/AdvReac Type Severity Reaction Status Date / Time acetaminophen (From Percocet) Allergy Other Verified 01/06/25 14:05 oxycodone (From Percocet) Allergy Other Verified 01/06/25 14:05 codeine AdvReac Nausea & Verified 01/06/25 14:05 dizziness oxycodone HCl (From Percocet) AdvReac Nausea & Verified 01/06/25 14:05 dizziness Family History Father Diabetes Dementia Surgical History S/P ORIF (open reduction internal fixation) fracture History of surgery on wrist History of cataract surgery History of ankle surgery Social History household members: none Smoking Status: Never smoker substance use type: does not use Vital Signs Vital Signs Vital Signs: 01/19/25 13:46 Temperature 98.0 F Temperature Source Temporal Pulse Rate 92 Respiratory Rate 16 Blood Pressure 98/54 L Blood Pressure Mean 68 Blood Pressure Source Monitor Blood Pressure Position Semi-Fowlers Blood Pressure Location Left Arm Oxygen Delivery Method Room Air Weight Weight: 95 lb Body Mass Index (BMI) 19.5 Physical Exam Const alert, oriented x3, no apparent distress, average body habitus and well nourished Constitutional Narrative: The patient's BMI is 19.5. General Appearance: cooperative, comfortable, well kempt and well developed Orientation / Consciousness: awake, oriented to person, oriented to place and oriented to time Exam Limitations: no limitations HEENT normocephalic and head/scalp atraumatic Head and Scalp: normal to inspection, normocephalic and atraumatic Face and Sinus: normal facial exam Nose: external nose normal External Ear: external ears normal Eyes EOMs intact bilaterally General Eye: normal appearance of both eyes Neck full ROM Resp normal respiratory effort, normal air movement, no retractions and no use of accessory muscles Effort and Inspection: able to speak in complete sentences Extremity no calf tenderness General Extremity: Negative for clubbing or cyanosis Skin Wound Narrative: A traumatic wound is noted on the patient's left medial calf. It appears to be an avulsion injury, with a resultant flap of skin. At the time of the patient's Emergency Department visit, the flap was repositioned, and sutured in place using seven 5-0 nylon sutures. The avulsion flap remains in place, as well as some of the approximating sutures. Skin edges appear to be well-approximated. There is no sign of infection or cellulitis. However, the avulsion flap appears to be somewhat dusky and ecchymotic, with question of ischemia. Neuro oriented x3, CN's II-XII intact bilaterally, moves all extremities, no focal motor deficits and no sensory deficits noted Sensorium / Orientation: awake, alert, oriented to person, oriented to place and oriented to time Psych Appearance: grossly normal and appropriate Attitude: calm Activity / Motor Behavior: appropriate eye contact Speech: normal speech Mood & Affect: euthymic mood Thought Process: normal thought process Thought Content: normal thought content Attention / Concentration: attention grossly intact Debridement Note Debridement Note Debridement Free Text: No debridement was performed, though the remaining sutures were removed from the patient's left calf traumatic injury. Post-Debridement Measurements and Additional Note: Post-Debridement Measurements/Treatment WC - Nurse 1 - General Ulcer Assessment Start: 01/13/25 13:56 Freq: Status: Active Protocol: NATHALIE Activity Type Activity Date Activity User E-sign Co-sign Detail Recorded Client Recorded Date Recorded By Document 01/13/25 13:59 DL [id number] 01/13/25 14:01 DL Document 01/19/25 13:46 KW [id number] 01/19/25 13:49 KW 01/13/25 01/19/25 13:59 13:46 WC - Today's Visit Information Type of service Follow-up Visit Follow-up Visit (Physician/SUPERVISOR ADULT EDUCATION (Physician/SUPERVISOR ADULT EDUCATION ) ) Arrival Mode Ambulatory Ambulatory,Cane Transfer Assistance None Patient Identification Verified (Name & Yes Yes ) Patient Requires Transmission-Based No Precautions Height and Weight Body Mass Index (BMI) 19.5 19.5 BMI Classification Normal Normal Vital Signs Temperature (97.8 F-99.1 F) 97 F L 98.0 F Temperature Source Temporal Temporal Pulse Rate (60-100) 83 92 Pulse Location Monitor Monitor Respiratory Rate (12-18) 16 16 Respiratory rate source Observation Observation Oxygen Delivery Method Room Air Blood Pressure (90/60-120/80) 103/60 98/54 L Blood Pressure Mean 74 68 Source Monitor Monitor Position Semi-Fowlers Blood Pressure Location Left Arm History Since Last Visit- (Skip if this is Patient's initial visit) Have you changed medications since your No No last visit? Any new allergies or adverse reactions No No Had a fall/change in ADL's that may No No increase risk of falls Signs or symptoms of abuse and/or No No neglect since last visit Have you been in the hospital since your No No last visit? Has dressing in place as prescribed Yes Yes Has compression in place as prescribed Yes Yes Has offloadiing in place as prescribed Yes N/A Experienced any changes in pain level or No No management Left Footwear Regular Shoe Right Footwear Regular Shoe Pain Scale: 0-10 Numeric Is Patient Pain Free? Yes Yes DANTE - Nurse 1 - General Ulcer Measurement Start: 01/13/25 13:56 Freq: Status: Active Protocol: Activity Type Activity Date Activity User E-sign Co-sign Detail Recorded Client Recorded Date Recorded By Document 01/13/25 13:59 DL [id number] 01/13/25 14:01 DL Document 01/19/25 13:46 KW [id number] 01/19/25 13:49 KW 01/13/25 01/19/25 13:59 13:46 Wound Center Nurse 1 #1 LT MED LE -Current Size (cm) - Length 0.1 0.1 -Current Size (cm) - Width 0.1 0.1 -Current Size (cm) - Depth 0.1 0 -Total Square Cm 0.01 0.01 -Date of Last Picture (Recall this 01/19/25 field) -Exudate Amt None Present Small -Exudate Type Serosanguineous -Wound Margin Indistinct, Non Flat & Intact -Visible -Granulation Amt None Present (0 %) -Necrosis Amt Small (1-33%) -Necrotic Tissue Type Adherent Slough -Structure Exposed N/A -Texture (Maylin-wound Skin Appearance) Scarring Assessed -Moisture (Maylin-wound Skin Appearance) No Abnormality Assessed -Color (Maylin-wound Skin Appearance) No Abnormality Assessed, Ecchymosis -Temperature (Maylin-wound Skin No Abnormality No Abnormality Appearance) (Pt Warm) (Pt Warm) -Tenderness on Palpation (Maylin-wound No No Skin Appearance) -Ulcer Cleansing Rinsed/ Rinsed/ Irrigated with Irrigated with Saline Saline -Foul Odor after Cleansing No No -Wound Comment(s) Skin tear/ sutures intact sutures intact. WC - Nurse 2 - General Ulcer CM Notes Start: 01/13/25 13:56 Freq: Status: Active Protocol: Activity Type Activity Date Activity User E-sign Co-sign Detail Recorded Client Recorded Date Recorded By Document 01/13/25 14:27 [id number] 01/13/25 14:29 Document 01/19/25 14:01 [id number] 01/19/25 14:02 01/13/25 01/19/25 14:27 14:01 Wound Center Nurse 2 #1 LT MED LE -Time 14:27 -Correct Patient Yes Yes -Correct Side, Site, Position Yes No -Correct Procedure No No -Procedure Performed No No -Post Debridement (cm) - Length 0.1 -Post Debridement (cm) - Width 0.1 -Post Debridement (cm) - Depth 0.1 -Total Square (Post) (cm) 0.01 -Area of Debridement (cm) - Length 0.1 -Area of Debridement (cm) - Width 0.1 -Total Square (Area) (cm) 0.01 -Circular Undermining No -Wound/Ulcer Outcome Not Healed -Foul Odor after Cleansing No -Bioengineered Tissue No -Bleeding Controlled with NA -Wound Comment(s) sutures intact Pain Scale: 0-10 Numeric Is Patient Pain Free? Yes Yes - Nurse 3 - General Ulcer D/C NN Start: 01/13/25 13:56 Freq: Status: Active Protocol: Activity Type Activity Date Activity User E-sign Co-sign Detail Recorded Client Recorded Date Recorded By Document 01/13/25 14:38 [facility] [id number] 01/13/25 14:38 [facility] Document 01/19/25 14:10 [id number] 01/19/25 14:10 01/13/25 01/19/25 14:38 14:10 Wound Care Center Nurse 3 #1 LT MED LE -Ulcer Cleansing Rinsed/ Irrigated with Saline -Foul Odor after Cleansing No -Primary Dressing Applied NonAdherent NonAdherent Contact Layer Contact Layer -Primary Dressing Covered/Secured with Dry Gauze & Dry Gauze & Roll Gauze, Roll Gauze, Secured with Secured with Tape Tape LLE -Compression Wrap Zbigniew Wrap Treatment Response Procedure Tolerated Well Pain Scale: 0-10 Numeric Is Patient Pain Free? Yes Yes - Visit Discharge Discharge Condition Stable Stable Ambulatory Status Ambulatory,Cane Ambulatory,Cane Transportation Private Auto Private Auto Medication Reconcilliation completed & No provided to patient/care provider Clinical Summary of Care Provided Yes Charges/Coding Visit Charges Office Visits / Consults: [id number] OV L3 Est 20min Assessment/Plan Assessment/Plan (1) Traumatic open wound of lower leg: CODE(S): S81.809A - Unspecified open wound, unspecified lower leg, initial encounter QUALIFIERS: Encounter type: subsequent encounter Laterality: left Qualified Code(s): S81.802D - Unspecified open wound, left lower leg, subsequent encounter (2) Avulsion injury: CODE(S): T14.8XXA - Other injury of unspecified body region, initial encounter (3) S/P ORIF (open reduction internal fixation) fracture: CODE(S): Z96.7 - Presence of other bone and tendon implants; Z87.81 - Personal history of (healed) traumatic fracture (4) S/P ORIF (open reduction internal fixation) fracture: CODE(S): Z98.890 - Other specified postprocedural states; Z87.81 - Personal history of (healed) traumatic fracture (5) History of surgery on wrist: CODE(S): Z98.890 - Other specified postprocedural states (6) History of cataract surgery: CODE(S): Z98.49 - Cataract extraction status, unspecified eye (7) History of ankle surgery: CODE(S): Z98.890 - Other specified postprocedural states (8) Hypothyroidism: CODE(S): E03.9 - Hypothyroidism, unspecified QUALIFIERS: Hypothyroidism type: acquired Qualified Code(s): E03.9 - Hypothyroidism, unspecified (9) Raynaud phenomenon: CODE(S): I73.00 - Raynaud's syndrome without gangrene QUALIFIERS: Raynaud?s-associated gangrene presence: without gangrene Qualified Code(s): I73.00 - Raynaud's syndrome without gangrene (10) Osteoporosis: CODE(S): M81.0 - Age-related osteoporosis without current pathological fracture (11) Ckme-otwb-ixuzyutogpvwtux: 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 The injury occurred when the patient's dog traumatized her leg with its nails. Immediately following her injury, the patient presented to the [facility] Emergency Department, where the avulsion flap was repositioned and sutured in place. The flap remains anchored, with skin edges well-approximated. The remaining approximating sutures have been removed today. The patient is to be rescheduled for an appointment in 1 week, at which time the traumatic wound will be reexamined. The skin flap appears somewhat dusky and ecchymotic, with question as to whether there may be some ischemia. There is question as to whether this flap will survive. In fact, the skin flap may not remain viable, and may ultimately slough, or require debridement/excision. However, thus far, there has been improvement. This matter will be reassessed upon the patient's return visit in 1 week, and thereafter if necessary. The patient has been cou nseled to protect the from any avoidable trauma. She has been advised to optimize her nutritional intake. Total time: 24 minutes
--- NOTE | 2025-01-20 09:46 | WC ---
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
[2025-02-02 14:09] VITALS: BP 106/66; PULSE 96; RESP 18; TEMP 36.1; BMI 19.5
--- NOTE | 2025-02-02 16:43 | HP.PCM_ITS ---
History of Present Illness Date of Service: 02/02/25 Chief Complaint: Traumatic avulsion injury of the left medial calf History of Wound: This is a 74-year-old female who sustained a traumatic injury to her left medial calf on January 01, 2025. At the time of her injury, she presented to the [facility] Emergency Department, where she was found to have an avulsion injury with a significant adherent cutaneous flap. The injury was caused by the nails of her dog, who had jumped off the couch. In the Emergency Department, the flap was sutured in place using seven 5-0 nylon sutures. The patient was placed on Keflex and Augmentin orally, and was discharged. The patient is generally healthy for her age, though has a history of sdlo-rzly-hevwvpllfwtfdvz, GERD, hypertension, hypothyroidism, and osteoporosis. She denies a history of diabetes mellitus, myocardial infarction, cerebrovascular accident, renal disease, and pulmonary disease. Her BMI is 19.5. She is . [facility] Medical History (Updated 02/02/25 @ 16:[address] Cedric Gibbons MD) Non-pressure chronic ulcer of left calf with fat layer exposed Traumatic open wound of lower leg Avulsion injury GERD (gastroesophageal reflux disease) HTN (hypertension) Hypothyroidism Depression Anxiety Home Medications ?Medication ?Instructions ?Recorded ?Last Taken ?Type levothyroxine 25 mcg tablet 25 mcg PO DAILY Check with primary 02/07/15 09/29/16 09:00 History doctor Bacillus coagulans-inulin 1 1 ea PO DAILY Check with jesus cheung 12/07/15 09/29/16 09:00 History billion cell-250 mg capsule doctor (Probiotic Formula (inulin)) gabapentin 100 mg capsule 600 mg PO BID Check with moose mcmillan 12/07/15 09/29/16 21:00 History doctor nifedipine 60 mg tablet,extended 180 mg PO DAILY Check with primary 12/07/15 09/29/16 09:00 History release 24 hr doctor pantoprazole 20 mg tablet,delayed 20 mg PO DAILY [facility] 12/07/15 09/29/16 09:00 History release paroxetine HCl 25 mg 75 mg PO DAILY depression 09/29/16 09:00 History tablet,extended release 24 hr (Paxil CR) aspirin 325 mg tablet,delayed 325 mg PO DAILY HEART 09/29/16 09:00 History release buspirone 5 mg tablet 30 mg PO BID Check with prim lesley 04/26/16 09/29/16 21:00 History doctor budesonide 3 mg 9 mg PO DAILY Check with moose mcmillan 09/30/16 Unknown History capsule,delayed,extended release doctor (Entocort EC) lorazepam 0.5 mg tablet 0.5 mg PO Q6H PRN PRN Anxiet y ##10 10/03/16 Unknown Rx dicyclomine 20 mg tablet 20 mg PO TID Check with prim lesley 09/02/22 Unknown History doctor Metamucil Check with primary doctor Unknown History food supplemt, lactose-reduced 120 ml PO 4X/DAY Check with 09/07/22 Unknown History 0.08 gram-1.5 kcal/mL oral liquid primary doctor (Ensure Enlive) loperamide 2 mg tablet 2 mg PO Q6H PRN Constipation 09/07/22 Unknown History omeprazole 40 mg PO/SL DAILY Check with 09/07/22 Unknown History primary doctor atorvastatin 80 mg tablet 20 mg (1/4 x 80 mg) PO QHS # 30 tabs 09/08/22 Unknown Rx cephalexin 500 mg capsule 500 mg PO BID #12 caps 09/08 Unknown Rx amoxicillin 875 mg-potassium 875 mg (0.875 x 875-125 m g) PO 04/29/23 Unknown Rx clavulanate 125 mg tablet Q12H #10 TABLETS Allergy/AdvReac Type Severity Reaction Status Date / Time acetaminophen (From Percocet) Allergy Other Verified 01/06/25 14:05 oxycodone (From Percocet) Allergy Other Verified 01/06/25 14:05 codeine AdvReac Nausea & Verified 01/06/25 14:05 dizziness oxycodone HCl (From Percocet) AdvReac Nausea & Verified 01/06/25 14:05 dizziness Family History Father Diabetes Dementia Surgical History S/P ORIF (open reduction internal fixation) fracture History of surgery on wrist History of cataract surgery History of ankle surgery Social History household members: none Smoking Status: Never smoker substance use type: does not use Vital Signs Vital Signs Vital Signs: 02/02/25 14:09 Temperature 97.0 F L Temperature Source Temporal Pulse Rate 96 Respiratory Rate 18 Blood Pressure 106/66 Blood Pressure Mean 79 Blood Pressure Source Monitor Blood Pressure Position Semi-Fowlers Blood Pressure Location Right Arm Weight Weight: 95 lb Body Mass Index (BMI) 19.5 Physical Exam Const alert, oriented x3, no apparent distress, average body habitus and well nourished Constitutional Narrative: The patient's BMI is 19.5. General Appearance: cooperative, comfortable, well kempt and well developed Orientation / Consciousness: awake, oriented to person, oriented to place and oriented to time Exam Limitations: no limitations HEENT normocephalic and head/scalp atraumatic Head and Scalp: normal to inspection, normocephalic and atraumatic Face and Sinus: normal facial exam Nose: external nose normal External Ear: external ears normal Eyes EOMs intact bilaterally General Eye: normal appearance of both eyes Neck full ROM Resp normal respiratory effort, normal air movement, no retractions and no use of accessory muscles Effort and Inspection: able to speak in complete sentences Extremity no calf tenderness General Extremity: Negative for clubbing or cyanosis Skin Wound Narrative: A traumatic wound is noted on the patient's left medial calf. It is an avulsion injury, with a resultant flap of skin. At the time of the patient's Emergency Department visit, the flap was repositioned, and sutured in place using seven 5- 0 nylon sutures. The sutures have been removed during previous visits. At this time, it is evident that a large portion of the avulsion flap, which had been repositioned and sutured in place, is now necrotic and nonviable. The nonviable portion of the wound is located centrally. Peripherally, there appears to be evidence of epithelialization. There is no sign of infection or cellulitis. No significant swelling or edema are noted. Neuro oriented x3, CN's II-XII intact bilaterally, moves all extremities, no focal motor deficits and no sensory deficits noted Sensorium / Orientation: awake, alert, oriented to person, oriented to place and oriented to time Psych Appearance: grossly normal and appropriate Attitude: calm Activity / Motor Behavior: appropriate eye contact Speech: normal speech Mood & Affect: euthymic mood Thought Process: normal thought process Thought Content: normal thought content Attention / Concentration: attention grossly intact Debridement Note Debridement Note Wound debrided: Traumatic avulsion injury of the left medial calf Laterality: Left Type of Debridement: Excisional debridement Anesthesia Used: 5% Lidocaine Gel and Cetacaine Depth: Down to and including healthy tissue and in the subcutaneous layer Percentage of wound debrided: 100 Instrument Used: 5mm curette, Forceps and - (Scissors) Tissue Removed: Necrotic and nonviable tissue; bioburden Severity: Fat Layer Exposed Amount of bleeding with debridement: Mild Bleeding Controlled with: Compression and gauze Patient tolerated procedure: Patient tolerated procedure well Post-Debridement Measurements and Additional Note: Post-Debridement Measurements/Treatment - Nurse 1 - General Ulcer Assessment Start: 01/13/25 13:56 Freq: Status: Active Protocol: NATHALIE Activity Type Activity Date Activity User E-sign Co-sign Detail Recorded Client Recorded Date Recorded By Document 01/13/25 13:59 DL [id number] 01/13/25 14:01 DL Document 01/19/25 13:46 KW [id number] 01/19/25 13:49 KW Document 02/02/25 14:09 JF [id number] 02/02/25 14:16 JF 01/13/25 01/19/25 02/02/25 13:59 13:46 14:09 - Today's Visit Information Type of service Follow-up Visit Follow-up Visit Follow-up Visit (Physician/INSPECTOR AND MENDER (Physician/INSPECTOR AND MENDER (Physician/INSPECTOR AND MENDER ) ) ) Arrival Mode Ambulatory Ambulatory,Cane Ambulatory,Cane Transfer Assistance None Patient Identification Verified (Name & Yes Yes Yes ) Patient Requires Transmission-Based No No Precautions Height and Weight Body Mass Index (BMI) 19.5 19.5 19.5 BMI Classification Normal Normal Normal Vital Signs Temperature (97.8 F-99.1 F) 97 F L 98.0 F 97.0 F L Temperature Source Temporal Temporal Temporal Pulse Rate (60-100) 83 92 96 Pulse Location Monitor Monitor Monitor Respiratory Rate (12-18) 16 16 18 Respiratory rate source Observation Observation Observation Oxygen Delivery Method Room Air Blood Pressure (90/60-120/80) 103/60 98/54 L 106/66 Blood Pressure Mean 74 68 79 Source Monitor Monitor Monitor Position Semi-Fowlers Semi-Fowlers Blood Pressure Location Left Arm Right Arm History Since Last Visit- (Skip if this is Patient's initial visit) Have you changed medications since your No No Yes last visit? Any new allergies or adverse reactions No No No Had a fall/change in ADL's that may No No No increase risk of falls Signs or symptoms of abuse and/or No No No neglect since last visit Have you been in the hospital since your No No No last visit? Has dressing in place as prescribed Yes Yes Yes Has compression in place as prescribed Yes Yes Yes Has offloadiing in place as prescribed Yes N/A N/A Experienced any changes in pain level or No No No management Left Footwear Regular Shoe Regular Shoe Right Footwear Regular Shoe Regular Shoe Pain Scale: 0-10 Numeric Is Patient Pain Free? Yes Yes Yes WC - Nurse 1 - General Ulcer Measurement Start: 01/13/25 13:56 Freq: Status: Active Protocol: Activity Type Activity Date Activity User E-sign Co-sign Detail Recorded Client Recorded Date Recorded By Document 01/13/25 13:59 DL [id number] 01/13/25 14:01 DL Document 01/19/25 13:46 KW [id number] 01/19/25 13:49 KW Document 02/02/25 14:09 JF [id number] 02/02/25 14:16 JF 01/13/25 01/19/25 02/02/25 13:59 13:46 14:09 Wound Center Nurse 1 #1 LT MED LE -Combined with other wound No -Current Size (cm) - Length 0.1 0.1 1.8 -Current Size (cm) - Width 0.1 0.1 3.0 -Current Size (cm) - Depth 0.1 0 0.1 -Total Square Cm 0.01 0.01 5.40 -Date of Last Picture (Recall this 01/19/25 field) -Photo Taken Yes -Epithelialization Small 1-33% -Tunneling No -Circular Undermining No -Exudate Amt None Present Small Small -Exudate Type Serosanguineous Serosanguineous -Wound Margin Indistinct, Non Flat & Intact Flat & Intact -Visible -Granulation Amt None Present (0 Small (1-33%) %) -Granulation Quality Pale -Slough/Fibrin Yes -Necrosis Amt Small (1-33%) Medium (34-66%) -Necrotic Tissue Type Adherent Slough Adherent Slough -Structure Exposed N/A N/A -Texture (Maylin-wound Skin Appearance) Scarring Assessed Assessed, Localized Edema -Moisture (Maylin-wound Skin Appearance) No Abnormality Assessed Assessed,Dry/ Scaly -Color (Maylin-wound Skin Appearance) No Abnormality Assessed, Assessed Ecchymosis -Temperature (Maylin-wound Skin No Abnormality No Abnormality No Abnormality Appearance) (Pt Warm) (Pt Warm) (Pt Warm) -Tenderness on Palpation (Maylin-wound No No No Skin Appearance) -Ulcer Cleansing Rinsed/ Rinsed/ Rinsed/ Irrigated with Irrigated with Irrigated with Saline Saline Saline -Foul Odor after Cleansing No No No -Anesthetic Used 5% Lidocaine Gel -Wound Comment(s) Skin tear/ sutures intact sutures intact. Lower Limb Edema Present Yes Left Calf (cm) 34 Left Ankle (cm) 17 WC - Nurse 2 - General Ulcer CM Notes Start: 01/13/25 13:56 Freq: Status: Active Protocol: Activity Type Activity Date Activity User E-sign Co-sign Detail Recorded Client Recorded Date Recorded By Document 01/13/25 14:27 [id number] 01/13/25 14:29 Document 01/19/25 14:01 [id number] 01/19/25 14:02 Document 02/02/25 14:25 DS [id number] 02/02/25 14:30 DS 01/13/25 01/19/25 02/02/25 14:27 14:01 14:25 Wound Center Nurse 2 #1 LT MED LE -Time 14:27 14:25 -Correct Patient Yes Yes Yes -Correct Side, Site, Position Yes No Yes -Correct Procedure No No Yes -Procedure Performed No No Yes -Type of Procedure Debridement -Clinical Debridement Subcutaneous -Tissue Removed Subcutaneous -Post Debridement (cm) - Length 0.1 1.7 -Post Debridement (cm) - Width 0.1 0.8 -Post Debridement (cm) - Depth 0.1 0.1 -Total Square (Post) (cm) 0.01 1.36 -Area of Debridement (cm) - Length 0.1 1.7 -Area of Debridement (cm) - Width 0.1 0.8 -Total Square (Area) (cm) 0.01 1.36 -Tunneling No -Undermining/Tunneling No -Circular Undermining No No -Wound/Ulcer Outcome Not Healed Not Healed -Ulcer Cleansing Rinsed/ Irrigated with Saline -Foul Odor after Cleansing No No -Bioengineered Tissue No No -Bleeding Controlled with NA Pressure -Treatment Response Procedure Tolerated Well -Debridement - Subq, 1st 20sq cm Yes -Wound Comment(s) sutures intact Pain Scale: 0-10 Numeric Is Patient Pain Free? Yes Yes Yes - Nurse 3 - General Ulcer D/C NN Start: 01/13/25 13:56 Freq: Status: Active Protocol: Activity Type Activity Date Activity User E-sign Co-sign Detail Recorded Client Recorded Date Recorded By Document 01/13/25 14:38 BM [id number] 01/13/25 14:38 BM Document 01/19/25 14:10 KW [id number] 01/19/25 14:10 KW Document 02/02/25 14:45 DS [id number] 02/02/25 14:45 DS 01/13/25 01/19/25 02/02/25 14:38 14:10 14:45 Wound Care Center Nurse 3 #1 LT MED LE -Ulcer Cleansing Rinsed/ Irrigated with Saline -Foul Odor after Cleansing No -Primary Dressing Applied NonAdherent NonAdherent Aquacel Extra Contact Layer Contact Layer -Primary Dressing Covered/Secured with Dry Gauze & Dry Gauze & Dry Gauze & Roll Gauze, Roll Gauze, Roll Gauze, Secured with Secured with Secured with Tape Tape Tape -Aquacel Extra 1 LLE -Compression Wrap Zbigniew Wrap Treatment Response Procedure Tolerated Well Pain Scale: 0-10 Numeric Is Patient Pain Free? Yes Yes Yes - Visit Discharge Discharge Condition Stable Stable Stable Ambulatory Status Ambulatory,Cane Ambulatory,Cane Ambulatory Transportation Private Auto Private Auto Private Auto Medication Reconcilliation completed & No provided to patient/care provider Clinical Summary of Care Provided Yes Charges/Coding Procedures Integumentary [id number]: [id number] Esha subq tissue 20 sq cm/< Assessment/Plan Assessment/Plan (1) Non-pressure chronic ulcer of left calf with fat layer exposed: CODE(S): L97.222 - Non-pressure chronic ulcer of left calf with fat layer exposed (2) Traumatic open wound of lower leg: CODE(S): S81.809A - Unspecified open wound, unspecified lower leg, initial encounter QUALIFIERS: Encounter type: subsequent encounter Laterality: left Qualified Code(s): S81.802D - Unspecified open wound, left lower leg, subsequent encounter (3) Avulsion injury: CODE(S): T14.8XXA - Other injury of unspecified body region, initial encounter (4) S/P ORIF (open reduction internal fixation) fracture: CODE(S): Z96.7 - Presence of other bone and tendon implants; Z87.81 - Personal history of (healed) traumatic fracture (5) S/P ORIF (open reduction internal fixation) fracture: CODE(S): Z98.890 - Other specified postprocedural states; Z87.81 - Personal history of (healed) traumatic fracture (6) History of surgery on wrist: CODE(S): Z98.890 - Other specified postprocedural states (7) History of cataract surgery: CODE(S): Z98.49 - Cataract extraction status, unspecified eye (8) History of ankle surgery: CODE(S): Z98.890 - Other specified postprocedural states (9) Hypothyroidism: CODE(S): E03.9 - Hypothyroidism, unspecified QUALIFIERS: Hypothyroidism type: acquired Qualified Code(s): E03.9 - Hypothyroidism, unspecified (10) Raynaud phenomenon: CODE(S): I73.00 - Raynaud's syndrome without gangrene QUALIFIERS: Raynaud?s-associated gangrene presence: without gangrene Qualified Code(s): I73.00 - Raynaud's syndrome without gangrene (11) Osteoporosis: CODE(S): M81.0 - Age-related osteoporosis without current pathological fracture (12) Gmyf-daet-gozguicsmkdiuls: 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 The injury occurred when the patient's dog traumatized her leg with its nails. Immediately following her injury, the patient presented to the [facility] Emergency Department, where the avulsion flap was repositioned and sutured in place. As of today's visit, the central portion of the traumatic flap has now necrosed, and is no longer viable. This portion of the wound has been debrided in the Wound Center today. It is now a full-thickness ulceration, extending down into the subcutaneous tissues. We are to implement the use of Aquacel extra topically, which will be moistened at the time of application. The patient has been instructed in the appropriate means of application. Mild compression is to be applied by means of an Zbigniew wrap, which will be applied on a daily basis. She is to return in 1 week for reassessment. The patient has been advised to o ptimize her nutritional intake. Total time: 25 minutes
--- NOTE | 2025-02-03 13:32 | WC ---
PHOTO 02/02/25 LEFT MED LEG
== END 2025-02-06 23:59 | disposition home or self-care (01) ==
LOC: WC 14:00
PROVIDERS: PCP Internal Medicine; Referring Provider Internal Medicine; Visit Provider Surgery
DX: L97.222 Non-pressure chronic ulcer of left calf with fat layer exposed (principal); E03.9 Hypothyroidism, unspecified; M81.0 Age-related osteoporosis without current pathological fracture; I10 Essential (primary) hypertension; K21.9 Gastro-esophageal reflux disease without esophagitis; I73.00 Raynaud's syndrome without gangrene; S81.802D Unspecified open wound, left lower leg, subsequent encounter; Z98.49 Cataract extraction status, unspecified eye; Z98.890 Other specified postprocedural states; E78.6 Lipoprotein deficiency; Z87.81 Personal history of (healed) traumatic fracture; Z96.7 Presence of other bone and tendon implants
CPT/HCPCS: 11042; 99213; G0463

== ENCOUNTER 2025-03-02 13:30 | Outpatient (RCR) | payer MEDICARE, OTHER, SELFPAY ==
[2025-02-07 00:21] VITALS: BP 106/66; PULSE 96; RESP 18; TEMP 36.1; BMI 19.5
[2025-02-09 13:13] VITALS: BP 106/53; PULSE 96; RESP 18; TEMP 36.3; BMI 19.5
--- NOTE | 2025-02-10 09:17 | WC ---
PHOTO 02/09/25 LEFT MED LEG
--- NOTE | 2025-02-10 10:15 | PCM.WC.HP ---
History of Present Illness Date of Service: 02/09/25 Chief Complaint: Traumatic avulsion injury of the left medial calf History of Wound: This is a 74-year-old female who sustained a traumatic injury to her left medial calf on January 01, 2025. At the time of her injury, she presented to the [facility] Emergency Department, where she was found to have an avulsion injury with a significant adherent cutaneous flap. The injury was caused by the nails of her dog, who had jumped off the couch. In the Emergency Department, the flap was sutured in place using seven 5-0 nylon sutures. The patient was placed on Keflex and Augmentin orally, and was discharged. The patient is generally healthy for her age, though has a history of ektv-xjxd-hjuqkotxaaxsatr, GERD, hypertension, hypothyroidism, and osteoporosis. She denies a history of diabetes mellitus, myocardial infarction, cerebrovascular accident, renal disease, and pulmonary disease. Her BMI is 19.5. She is . [facility] Medical History Non-pressure chronic ulcer of left calf with fat layer exposed Traumatic open wound of lower leg Avulsion injury GERD (gastroesophageal reflux disease) HTN (hypertension) Hypothyroidism Depression Anxiety Home Medications ?Medication ?Instructions ?Recorded ?Last Taken ?Type levothyroxine 25 mcg tablet 25 mcg PO DAILY Check with primary 02/07/15 09/29/16 09:00 History doctor Bacillus coagulans-inulin 1 1 ea PO DAILY Check with primary 12/07/15 09/29/16 09:00 History billion cell-250 mg capsule doctor (Probiotic Formula (inulin)) gabapentin 100 mg capsule 600 mg PO BID Check with primary 12/07/15 09/29/16 21:00 History doctor nifedipine 60 mg tablet,extended 180 mg PO DAILY Check with primary 12/07/15 09/29/16 09:00 History release 24 hr doctor pantoprazole 20 mg tablet,delayed 20 mg PO DAILY STOMACHE 12/07/15 09/29/16 09:00 History release paroxetine HCl 25 mg 75 mg PO DAILY depression 12/07/15 09/29/16 09:00 History tablet,extended release 24 hr (Paxil CR) aspirin 325 mg tablet,delayed 325 mg PO DAILY HEART 04/26/16 09/29/16 09:00 History release buspirone 5 mg tablet 30 mg PO BID Check with primary 04/26/16 09/29/16 21:00 History doctor budesonide 3 mg 9 mg PO DAILY Check with primary 09/30/16 Unknown History capsule,delayed,extended release doctor (Entocort EC) lorazepam 0.5 mg tablet 0.5 mg PO Q6H PRN PRN Anxiety ##10 10/03/16 Unknown Rx dicyclomine 20 mg tablet 20 mg PO TID Check with primary 09/02/22 Unknown History doctor Metamucil Check with primary doctor 09/07/22 Unknown History food supplemt, lactose-reduced 120 ml PO 4X/DAY Check with 09/07/22 Unknown History 0.08 gram-1.5 kcal/mL oral liquid primary doctor (Ensure Enlive) loperamide 2 mg tablet 2 mg PO Q6H PRN Constipation 09/07/22 Unknown History omeprazole 40 mg PO/SL DAILY Check with 09/07/22 Unknown History primary doctor atorvastatin 80 mg tablet 20 mg (1/4 x 80 mg) PO QHS #30 tabs 09/08/22 Unknown Rx cephalexin 500 mg capsule 500 mg PO BID #12 caps 09/08/22 Unknown Rx amoxicillin 875 mg-potassium 875 mg (0.875 x 875-125 mg) PO 04/29/23 Unknown Rx clavulanate 125 mg tablet Q12H #10 TABLETS Allergy/AdvReac Type Severity Reaction Status Date / Time acetaminophen (From Percocet) Allergy Other Verified 01/06/25 14:05 oxycodone (From Percocet) Allergy Other Verified 01/06/25 14:05 codeine AdvReac Nausea & Verified 01/06/25 14:05 dizziness oxycodone HCl (From Percocet) AdvReac Nausea & Verified 01/06/25 14:05 dizziness Family History Father Diabetes Dementia Surgical History S/P ORIF (open reduction internal fixation) fracture History of surgery on wrist History of cataract surgery History of ankle surgery Social History household members: none Smoking Status: Never smoker substance use type: does not use Vital Signs Vital Signs Vital Signs: 02/09/25 13:13 Temperature 97.4 F L Temperature Source Temporal Pulse Rate 96 Respiratory Rate 18 Blood Pressure 106/53 L Blood Pressure Mean 70 Blood Pressure Source Monitor Blood Pressure Position Semi-Fowlers Blood Pressure Location Left Arm Oxygen Delivery Method Room Air Weight Weight: 95 lb Body Mass Index (BMI) 19.5 Physical Exam Const alert, oriented x3, no apparent distress, average body habitus and well nourished Constitutional Narrative: The patient's BMI is 19.5. General Appearance: cooperative, comfortable, well kempt and well developed Orientation / Consciousness: awake, oriented to person, oriented to place and oriented to time Exam Limitations: no limitations HEENT normocephalic and head/scalp atraumatic Head and Scalp: normal to inspection, normocephalic and atraumatic Face and Sinus: normal facial exam Nose: external nose normal External Ear: external ears normal Eyes EOMs intact bilaterally General Eye: normal appearance of both eyes Neck full ROM Resp normal respiratory effort, normal air movement, no retractions and no use of accessory muscles Effort and Inspection: able to speak in complete sentences Extremity no calf tenderness General Extremity: Negative for clubbing or cyanosis Skin Wound Narrative: A traumatic wound is noted on the patient's left medial calf. It is an avulsion injury, with a resultant flap of skin. At the time of the patient's Emergency Department visit, the flap was repositioned, and sutured in place using seven 5-0 nylon sutures. The sutures have been removed during previous visits. At this time, it is evident that a large portion of the avulsion flap, which had been repositioned and sutured in place, has necrosed and is no longer viable. The nonviable portion of the wound is located centrally. Peripherally, there appears to be evidence of epithelialization. The wound extends through all layers of the dermis and into the subcutaneous tissues. There is no sign of infection or cellulitis. No significant swelling or edema are noted. Dimensions are documented elsewhere. Neuro oriented x3, CN's II-XII intact bilaterally, moves all extremities, no focal motor deficits and no sensory deficits noted Sensorium / Orientation: awake, alert, oriented to person, oriented to place and oriented to time Psych Appearance: grossly normal and appropriate Attitude: calm Activity / Motor Behavior: appropriate eye contact Speech: normal speech Mood & Affect: euthymic mood Thought Process: normal thought process Thought Content: normal thought content Attention / Concentration: attention grossly intact Debridement Note Debridement Note Wound debrided: Traumatic avulsion injury of the left medial calf Laterality: Left Type of Debridement: Excisional debridement Anesthesia Used: 5% Lidocaine Gel and Cetacaine Depth: Down to and including healthy tissue and in the subcutaneous layer Percentage of wound debrided: 100 Instrument Used: 5mm curette Tissue Removed: Necrotic and nonviable tissue; bioburden Severity: Fat Layer Exposed Amount of bleeding with debridement: Mild Bleeding Controlled with: Compression and gauze Patient tolerated procedure: Patient tolerated procedure well Post-Debridement Measurements and Additional Note: Post-Debridement Measurements/Treatment - Nurse 1 - General Ulcer Assessment Start: 02/09/25 13:13 Freq: Status: Active Protocol: NATHALIE Activity Type Activity Date Activity User E-sign Co-sign Detail Recorded Client Recorded Date Recorded By Document 02/09/25 13:13 [id number] 02/09/25 13:18 02/09/25 13:13 DANTE - Today's Visit Information Type of service Follow-up Visit (Physician/RIG WELDER ) Arrival Mode Ambulatory,Cane Patient Identification Verified (Name & Yes ) Height and Weight Body Mass Index (BMI) 19.5 BMI Classification Normal Vital Signs Temperature (97.8 F-99.1 F) 97.4 F L Temperature Source Temporal Pulse Rate (60-100) 96 Pulse Location Monitor Respiratory Rate (12-18) 18 Respiratory rate source Observation Oxygen Delivery Method Room Air Blood Pressure (90/60-120/80) 106/53 L Blood Pressure Mean 70 Source Monitor Position Semi-Fowlers Blood Pressure Location Left Arm History Since Last Visit- (Skip if this is Patient's initial visit) Have you changed medications since your No last visit? Any new allergies or adverse reactions No Had a fall/change in ADL's that may No increase risk of falls Signs or symptoms of abuse and/or No neglect since last visit Have you been in the hospital since your No last visit? Has dressing in place as prescribed Yes Has compression in place as prescribed Yes Has offloadiing in place as prescribed N/A Experienced any changes in pain level or No management Left Footwear Regular Shoe Right Footwear Regular Shoe Pain Scale: 0-10 Numeric Is Patient Pain Free? Yes - Nurse 1 - General Ulcer Measurement Start: 02/09/25 13:13 Freq: Status: Active Protocol: Activity Type Activity Date Activity User E-sign Co-sign Detail Recorded Client Recorded Date Recorded By Document 02/09/25 13:13 KW [id number] 02/09/25 13:18 KW 02/09/25 13:13 Wound Center Nurse 1 #1 LT MED LE -Current Size (cm) - Length 2.2 -Current Size (cm) - Width 2.5 -Current Size (cm) - Depth 0.1 -Total Square Cm 5.50 -Date of Last Picture (Recall this 02/09/25 field) -Exudate Amt Medium -Exudate Type Serosanguineous -Wound Margin Distinct, Outline Attached -Granulation Amt Medium (34-66%) -Granulation Quality [place] -Necrosis Amt Medium (34-66%) -Necrotic Tissue Type Adherent Slough -Texture (Maylin-wound Skin Appearance) Assessed -Moisture (Maylin-wound Skin Appearance) Assessed -Color (Maylin-wound Skin Appearance) Assessed, Erythema -Temperature (Maylin-wound Skin No Abnormality Appearance) (Pt Warm) -Tenderness on Palpation (Maylin-wound No Skin Appearance) -Ulcer Cleansing Rinsed/ Irrigated with Saline -Foul Odor after Cleansing No -Anesthetic Used 5% Lidocaine Gel WC - Nurse 2 - General Ulcer CM Notes Start: 02/09/25 13:13 Freq: Status: Active Protocol: Activity Type Activity Date Activity User E-sign Co-sign Detail Recorded Client Recorded Date Recorded By Document 02/09/25 13:24 DS [id number] 02/09/25 13:28 DS 02/09/25 13:24 Wound Center Nurse 2 -Time 13:24 -Correct Patient Yes -Correct Side, Site, Position Yes -Correct Procedure Yes -Procedure Performed Yes -Type of Procedure Debridement -Clinical Debridement Subcutaneous -Tissue Removed Subcutaneous -Post Debridement (cm) - Length 1.5 -Post Debridement (cm) - Width 1.5 -Post Debridement (cm) - Depth 0.1 -Total Square (Post) (cm) 2.25 -Area of Debridement (cm) - Length 1.5 -Area of Debridement (cm) - Width 1.5 -Total Square (Area) (cm) 2.25 -Tunneling No -Undermining/Tunneling No -Circular Undermining No -Wound/Ulcer Outcome Not Healed -Ulcer Cleansing Rinsed/ Irrigated with Saline -Foul Odor after Cleansing No -Bioengineered Tissue No -Bleeding Controlled with Pressure -Treatment Response Procedure Tolerated Well -Debridement - Subq, 1st 20sq cm Yes Pain Scale: 0-10 Numeric Is Patient Pain Free? Yes - Nurse 3 - General Ulcer D/C NN Start: 02/09/25 13:13 Freq: Status: Active Protocol: Activity Type Activity Date Activity User E-sign Co-sign Detail Recorded Client Recorded Date Recorded By Document 02/09/25 13:32 KW [id number] 02/09/25 13:33 KW 02/09/25 13:32 Wound Care Center Nurse 3 #1 LT MED LE -Primary Dressing Applied Aquacel Extra -Primary Dressing Covered/Secured with Dry Gauze & Roll Gauze, Secured with Tape -Aquacel Extra 1 LLE -Compression Wrap Zbigniew Wrap Pain Scale: 0-10 Numeric Is Patient Pain Free? Yes WC - Visit Discharge Discharge Condition Stable Ambulatory Status Ambulatory,Cane Transportation Private Auto Medication Reconcilliation completed & No provided to patient/care provider Clinical Summary of Care Provided Yes Charges/Coding Procedures Integumentary [id number]: [id number] Esha subq tissue 20 sq cm/< Assessment/Plan Assessment/Plan (1) Non-pressure chronic ulcer of left calf with fat layer exposed: CODE(S): L97.222 - Non-pressure chronic ulcer of left calf with fat layer exposed (2) Traumatic open wound of lower leg: CODE(S): S81.809A - Unspecified open wound, unspecified lower leg, initial encounter QUALIFIERS: Encounter type: subsequent encounter Laterality: left Qualified Code(s): S81.802D - Unspecified open wound, left lower leg, subsequent encounter (3) Avulsion injury: CODE(S): T14.8XXA - Other injury of unspecified body region, initial encounter (4) S/P ORIF (open reduction internal fixation) fracture: CODE(S): Z96.7 - Presence of other bone and tendon implants; Z87.81 - Personal history of (healed) traumatic fracture (5) S/P ORIF (open reduction internal fixation) fracture: CODE(S): Z98.890 - Other specified postprocedural states; Z87.81 - Personal history of (healed) traumatic fracture (6) History of surgery on wrist: CODE(S): Z98.890 - Other specified postprocedural states (7) History of cataract surgery: CODE(S): Z98.49 - Cataract extraction status, unspecified eye (8) History of ankle surgery: CODE(S): Z98.890 - Other specified postprocedural states (9) Hypothyroidism: CODE(S): E03.9 - Hypothyroidism, unspecified QUALIFIERS: Hypothyroidism type: acquired Qualified Code(s): E03.9 - Hypothyroidism, unspecified (10) Raynaud phenomenon: CODE(S): I73.00 - Raynaud's syndrome without gangrene QUALIFIERS: Raynaud?s-associated gangrene presence: without gangrene Qualified Code(s): I73.00 - Raynaud's syndrome without gangrene (11) Osteoporosis: CODE(S): M81.0 - Age-related osteoporosis without current pathological fracture (12) Pzne-pmzx-scswcktanuqnnda: 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 The injury occurred when the patient's dog traumatized her leg with its nails. Immediately following her injury, the patient presented to the [facility] Emergency Department, where the avulsion flap was repositioned and sutured in place. The central portion of the traumatic flap has now necrosed, and is no longer viable. This portion of the wound has been debrided in the Wound Center today. It is a full-thickness ulceration, extending down into the subcutaneous tissues. We are to continue the use of Aquacel Extra topically, which will be moistened at the time of application. The patient has been instructed in the appropriate means of application. Mild compression is to be applied by means of an Zbigniew wrap, which will be applied on a daily basis. She is to return in 1 week for reassessment. The patient has been advised to optimize her nutritional intake, and is using Huy as a supplement. Total time: 24 minutes
[2025-02-16 13:06] VITALS: BP 115/64; PULSE 85; RESP 16; TEMP 36.2; BMI 19.5
--- NOTE | 2025-02-16 15:42 | WC ---
PHOTO 02/16/25 L MED LEG
--- NOTE | 2025-02-17 11:27 | PCM.WC.HP ---
History of Present Illness Date of Service: 02/16/25 Chief Complaint: Traumatic avulsion injury of the left medial calf History of Wound: This is a 74-year-old female who sustained a traumatic injury to her left medial calf on January 01, 2025. At the time of her injury, she presented to the [facility] Emergency Department, where she was found to have an avulsion injury with a significant adherent cutaneous flap. The injury was caused by the nails of her dog, who had jumped off the couch. In the Emergency Department, the flap was sutured in place using seven 5-0 nylon sutures. The patient was placed on Keflex and Augmentin orally, and was discharged. The patient is generally healthy for her age, though has a history of hjsm-cogx-cxplevvjsxdxblp, GERD, hypertension, hypothyroidism, and osteoporosis. She denies a history of diabetes mellitus, myocardial infarction, cerebrovascular accident, renal disease, and pulmonary disease. Her BMI is 19.5. She is . [facility] Medical History Non-pressure chronic ulcer of left calf with fat layer exposed Traumatic open wound of lower leg Avulsion injury GERD (gastroesophageal reflux disease) HTN (hypertension) Hypothyroidism Depression Anxiety Home Medications ?Medication ?Instructions ?Recorded ?Last Taken ?Type levothyroxine 25 mcg tablet 25 mcg PO DAILY Check with primary 02/07/15 09/29/16 09:00 History doctor Bacillus coagulans-inulin 1 1 ea PO DAILY Check with primary 12/07/15 09/29/16 09:00 History billion cell-250 mg capsule doctor (Probiotic Formula (inulin)) gabapentin 100 mg capsule 600 mg PO BID Check with primary 12/07/15 09/29/16 21:00 History doctor nifedipine 60 mg tablet,extended 180 mg PO DAILY Check with primary 12/07/15 09/29/16 09:00 History release 24 hr doctor pantoprazole 20 mg tablet,delayed 20 mg PO DAILY STOMACHE 12/07/15 09/29/16 09:00 History release paroxetine HCl 25 mg 75 mg PO DAILY depression 12/07/15 09/29/16 09:00 History tablet,extended release 24 hr (Paxil CR) aspirin 325 mg tablet,delayed 325 mg PO DAILY HEART 04/26/16 09/29/16 09:00 History release buspirone 5 mg tablet 30 mg PO BID Check with primary 04/26/16 09/29/16 21:00 History doctor budesonide 3 mg 9 mg PO DAILY Check with primary 09/30/16 Unknown History capsule,delayed,extended release doctor (Entocort EC) lorazepam 0.5 mg tablet 0.5 mg PO Q6H PRN PRN Anxiety ##10 10/03/16 Unknown Rx dicyclomine 20 mg tablet 20 mg PO TID Check with primary 09/02/22 Unknown History doctor Metamucil Check with primary doctor 09/07/22 Unknown History food supplemt, lactose-reduced 120 ml PO 4X/DAY Check with 09/07/22 Unknown History 0.08 gram-1.5 kcal/mL oral liquid primary doctor (Ensure Enlive) loperamide 2 mg tablet 2 mg PO Q6H PRN Constipation 09/07/22 Unknown History omeprazole 40 mg PO/SL DAILY Check with 09/07/22 Unknown History primary doctor atorvastatin 80 mg tablet 20 mg (1/4 x 80 mg) PO QHS #30 tabs 09/08/22 Unknown Rx cephalexin 500 mg capsule 500 mg PO BID #12 caps 09/08/22 Unknown Rx amoxicillin 875 mg-potassium 875 mg (0.875 x 875-125 mg) PO 04/29/23 Unknown Rx clavulanate 125 mg tablet Q12H #10 TABLETS Allergy/AdvReac Type Severity Reaction Status Date / Time acetaminophen (From Percocet) Allergy Other Verified 01/06/25 14:05 oxycodone (From Percocet) Allergy Other Verified 01/06/25 14:05 codeine AdvReac Nausea & Verified 01/06/25 14:05 dizziness oxycodone HCl (From Percocet) AdvReac Nausea & Verified 01/06/25 14:05 dizziness Family History Father Diabetes Dementia Surgical History S/P ORIF (open reduction internal fixation) fracture History of surgery on wrist History of cataract surgery History of ankle surgery Social History household members: none Smoking Status: Never smoker substance use type: does not use Vital Signs Vital Signs Vital Signs: 02/16/25 13:06 Temperature 97.2 F L Temperature Source Temporal Pulse Rate 85 Respiratory Rate 16 Blood Pressure 115/64 Blood Pressure Mean 81 Blood Pressure Source Monitor Blood Pressure Position Semi-Fowlers Blood Pressure Location Right Arm Oxygen Delivery Method Room Air Weight Weight: 95 lb Body Mass Index (BMI) 19.5 Physical Exam Const alert, oriented x3, no apparent distress, average body habitus and well nourished Constitutional Narrative: The patient's BMI is 19.5. General Appearance: cooperative, comfortable, well kempt and well developed Orientation / Consciousness: awake, oriented to person, oriented to place and oriented to time Exam Limitations: no limitations HEENT normocephalic and head/scalp atraumatic Head and Scalp: normal to inspection, normocephalic and atraumatic Face and Sinus: normal facial exam Nose: external nose normal External Ear: external ears normal Eyes EOMs intact bilaterally General Eye: normal appearance of both eyes Neck full ROM Resp normal respiratory effort, normal air movement, no retractions and no use of accessory muscles Effort and Inspection: able to speak in complete sentences Extremity no calf tenderness General Extremity: Negative for clubbing or cyanosis Skin Wound Narrative: A traumatic wound is noted on the patient's left medial calf. It is an avulsion injury, with a resultant flap of skin. At the time of the patient's Emergency Department visit, the flap was repositioned, and sutured in place using seven 5-0 nylon sutures. The sutures have been removed during previous visits. At this time, it is evident that a large portion of the avulsion flap, which had been repositioned and sutured in place, has necrosed and is no longer viable. The nonviable portion of the wound is located centrally. The wound demonstrates yellowish, nonviable material, though healthy granulation tissue is noted beneath. Peripherally, there appears to be evidence of epithelialization and healing. A small portion of the flap has survived and remains viable. The existing wound extends through all layers of the dermis and into the subcutaneous tissues. There is no sign of infection or cellulitis. No significant swelling or edema are noted. Dimensions are documented elsewhere. Wound margins are well beveled. Neuro oriented x3, CN's II-XII intact bilaterally, moves all extremities, no focal motor deficits and no sensory deficits noted Sensorium / Orientation: awake, alert, oriented to person, oriented to place and oriented to time Psych Appearance: grossly normal and appropriate Attitude: calm Activity / Motor Behavior: appropriate eye contact Speech: normal speech Mood & Affect: euthymic mood Thought Process: normal thought process Thought Content: normal thought content Attention / Concentration: attention grossly intact Debridement Note Debridement Note Wound debrided: Traumatic avulsion injury of the left medial calf Laterality: Left Type of Debridement: Excisional debridement Anesthesia Used: 5% Lidocaine Gel and Cetacaine Depth: Down to and including healthy tissue and in the subcutaneous layer Percentage of wound debrided: 100 Instrument Used: 5mm curette Tissue Removed: Necrotic and nonviable tissue; bioburden Severity: Fat Layer Exposed Amount of bleeding with debridement: Mild Bleeding Controlled with: Compression and gauze Patient tolerated procedure: Patient tolerated procedure well Post-Debridement Measurements and Additional Note: Post-Debridement Measurements/Treatment - Nurse 1 - General Ulcer Assessment Start: 02/09/25 13:13 Freq: Status: Active Protocol: NATHALIE Activity Type Activity Date Activity User E-sign Co-sign Detail Recorded Client Recorded Date Recorded By Document 02/09/25 13:13 [employer] [id number] 02/09/25 13:18 KW Document 02/16/25 13:06 [employer] [id number] 02/16/25 13:16 KW 02/09/25 02/16/25 13:13 13:06 - Today's Visit Information Type of service Follow-up Visit Follow-up Visit (Physician/SUPERVISOR CABINETMAKER (Physician/SUPERVISOR CABINETMAKER ) ) Arrival Mode Ambulatory,Cane Ambulatory,Cane Patient Identification Verified (Name & Yes Yes ) Height and Weight Body Mass Index (BMI) 19.5 19.5 BMI Classification Normal Normal Vital Signs Temperature (97.8 F-99.1 F) 97.4 F L 97.2 F L Temperature Source Temporal Temporal Pulse Rate (60-100) 96 85 Pulse Location Monitor Monitor Respiratory Rate (12-18) 18 16 Respiratory rate source Observation Observation Oxygen Delivery Method Room Air Room Air Blood Pressure (90/60-120/80) 106/53 L 115/64 Blood Pressure Mean 70 81 Source Monitor Monitor Position Semi-Fowlers Semi-Fowlers Blood Pressure Location Left Arm Right Arm History Since Last Visit- (Skip if this is Patient's initial visit) Have you changed medications since your No No last visit? Any new allergies or adverse reactions No No Had a fall/change in ADL's that may No No increase risk of falls Signs or symptoms of abuse and/or No No neglect since last visit Have you been in the hospital since your No No last visit? Has dressing in place as prescribed Yes Yes Has compression in place as prescribed Yes Yes Has offloadiing in place as prescribed N/A N/A Experienced any changes in pain level or No No management Left Footwear Regular Shoe Regular Shoe Right Footwear Regular Shoe Regular Shoe Pain Scale: 0-10 Numeric Is Patient Pain Free? Yes Yes - Nurse 1 - General Ulcer Measurement Start: 02/09/25 13:13 Freq: Status: Active Protocol: Activity Type Activity Date Activity User E-sign Co-sign Detail Recorded Client Recorded Date Recorded By Document 02/09/25 13:13 KW [id number] 02/09/25 13:18 KW Document 02/16/25 13:06 KW [id number] 02/16/25 13:16 KW 02/09/25 02/16/25 13:13 13:06 Wound Center Nurse 1 #1 LT MED LE -Current Size (cm) - Length 2.2 1.5 -Current Size (cm) - Width 2.5 2 -Current Size (cm) - Depth 0.1 0.1 -Total Square Cm 5.50 3.0 -Date of Last Picture (Recall this 02/09/25 02/16/25 field) -Exudate Amt Medium Medium -Exudate Type Serosanguineous Serosanguineous -Wound Margin Distinct, Distinct, Outline Outline Attached Attached -Granulation Amt Medium (34-66%) Large (67-100%) -Granulation Quality [place] -Necrosis Amt Medium (34-66%) Medium (34-66%) -Necrotic Tissue Type Adherent Slough Adherent Slough -Texture (Maylin-wound Skin Appearance) Assessed Assessed -Moisture (Maylin-wound Skin Appearance) Assessed Assessed -Color (Maylin-wound Skin Appearance) Assessed, Assessed, Erythema Erythema -Temperature (Maylin-wound Skin No Abnormality No Abnormality Appearance) (Pt Warm) (Pt Warm) -Tenderness on Palpation (Maylin-wound No No Skin Appearance) -Ulcer Cleansing Rinsed/ Rinsed/ Irrigated with Irrigated with Saline Saline -Foul Odor after Cleansing No No -Anesthetic Used 5% Lidocaine 5% Lidocaine Gel Gel - Nurse 2 - General Ulcer CM Notes Start: 02/09/25 13:13 Freq: Status: Active Protocol: Activity Type Activity Date Activity User E-sign Co-sign Detail Recorded Client Recorded Date Recorded By Document 02/09/25 13:24 DS [id number] 02/09/25 13:28 DS Document 02/16/25 13:33 DS [id number] 02/16/25 13:36 DS 02/09/25 02/16/25 13:24 13:33 Wound Center Nurse 2 #1 LT MED LE -Time 13:24 13:33 -Correct Patient Yes Yes -Correct Side, Site, Position Yes Yes -Correct Procedure Yes Yes -Procedure Performed Yes Yes -Type of Procedure Debridement Debridement -Clinical Debridement Subcutaneous Subcutaneous -Tissue Removed Subcutaneous Subcutaneous -Post Debridement (cm) - Length 1.5 1.5 -Post Debridement (cm) - Width 1.5 1.8 -Post Debridement (cm) - Depth 0.1 0.1 -Total Square (Post) (cm) 2.25 2.70 -Area of Debridement (cm) - Length 1.5 1.5 -Area of Debridement (cm) - Width 1.5 1.8 -Total Square (Area) (cm) 2.25 2.70 -Tunneling No No -Undermining/Tunneling No No -Circular Undermining No No -Wound/Ulcer Outcome Not Healed Not Healed -Ulcer Cleansing Rinsed/ Rinsed/ Irrigated with Irrigated with Saline Saline -Foul Odor after Cleansing No No -Bioengineered Tissue No No -Bleeding Controlled with Pressure Pressure -Treatment Response Procedure Procedure Tolerated Well Tolerated Well -Debridement - Subq, 1st 20sq cm Yes Yes Pain Scale: 0-10 Numeric Is Patient Pain Free? Yes Yes - Nurse 3 - General Ulcer D/C NN Start: 02/09/25 13:13 Freq: Status: Active Protocol: Activity Type Activity Date Activity User E-sign Co-sign Detail Recorded Client Recorded Date Recorded By Document 02/09/25 13:32 KW [id number] 02/09/25 13:33 KW Document 02/16/25 13:46 KW [id number] 02/16/25 13:46 KW 02/09/25 02/16/25 13:32 13:46 Wound Care Center Nurse 3 #1 LT MED LE -Primary Dressing Applied Aquacel Extra Aquacel Extra -Primary Dressing Covered/Secured with Dry Gauze & Dry Gauze & Roll Gauze, Roll Gauze, Secured with Secured with Tape Tape -Aquacel Extra 1 1 LLE -Compression Wrap Zbigniew Wrap Zbigniew Wrap -Other 4in Pain Scale: 0-10 Numeric Is Patient Pain Free? Yes Yes WC - Visit Discharge Discharge Condition Stable Stable Ambulatory Status Ambulatory,Cane Ambulatory,Cane Transportation Private Auto Private Auto Medication Reconcilliation completed & No No provided to patient/care provider Clinical Summary of Care Provided Yes Yes Charges/Coding Procedures Integumentary [id number]: [id number] Esha subq tissue 20 sq cm/< Assessment/Plan Assessment/Plan (1) Non-pressure chronic ulcer of left calf with fat layer exposed: CODE(S): L97.222 - Non-pressure chronic ulcer of left calf with fat layer exposed (2) Traumatic open wound of lower leg: CODE(S): S81.809A - Unspecified open wound, unspecified lower leg, initial encounter QUALIFIERS: Encounter type: subsequent encounter Laterality: left Qualified Code(s): S81.802D - Unspecified open wound, left lower leg, subsequent encounter (3) Avulsion injury: CODE(S): T14.8XXA - Other injury of unspecified body region, initial encounter (4) S/P ORIF (open reduction internal fixation) fracture: CODE(S): Z96.7 - Presence of other bone and tendon implants; Z87.81 - Personal history of (healed) traumatic fracture (5) S/P ORIF (open reduction internal fixation) fracture: CODE(S): Z98.890 - Other specified postprocedural states; Z87.81 - Personal history of (healed) traumatic fracture (6) History of surgery on wrist: CODE(S): Z98.890 - Other specified postprocedural states (7) History of cataract surgery: CODE(S): Z98.49 - Cataract extraction status, unspecified eye (8) History of ankle surgery: CODE(S): Z98.890 - Other specified postprocedural states (9) Hypothyroidism: CODE(S): E03.9 - Hypothyroidism, unspecified QUALIFIERS: Hypothyroidism type: acquired Qualified Code(s): E03.9 - Hypothyroidism, unspecified (10) Raynaud phenomenon: CODE(S): I73.00 - Raynaud's syndrome without gangrene QUALIFIERS: Raynaud?s-associated gangrene presence: without gangrene Qualified Code(s): I73.00 - Raynaud's syndrome without gangrene (11) Osteoporosis: CODE(S): M81.0 - Age-related osteoporosis without current pathological fracture (12) Nzhd-uczb-qxctiulyyonwtkd: 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 The injury occurred when the patient's dog traumatized her leg with its nails. Immediately following her injury, the patient presented to the [facility] Emergency Department, where the avulsion flap was repositioned and sutured in place. The central portion of the traumatic flap has now necrosed, and is no longer viable. This portion of the wound has been debrided in the Wound Center today. It is a full-thickness ulceration, extending down into the subcutaneous tissues. We are to continue the use of Aquacel Extra topically, which will be moistened at the time of application. The patient has been instructed in the appropriate means of application. Mild compression is to be applied by means of an Zbigniew wrap, which will be applied on a daily basis. The patient has been counseled to elevate her lower extremities is much as possible, to remain active, and to avoid prolonged, idle sitting. She is to return in 1 week for reassessment. The patient has been advised to optimize her nutritional intake, and is using Huy as a supplement. Total time: 25 minutes
[2025-02-23 13:26] VITALS: BP 96/76; PULSE 84; RESP 14; TEMP 36.2; BMI 19.5
--- NOTE | 2025-02-24 08:47 | WC ---
PHOTO 02/23/25 JORGE
--- NOTE | 2025-02-24 11:10 | PCM.WC.HP ---
History of Present Illness Date of Service: 02/23/25 Chief Complaint: Traumatic avulsion injury of the left medial calf History of Wound: This is a 74-year-old female who sustained a traumatic injury to her left medial calf on January 01, 2025. At the time of her injury, she presented to the [facility] Emergency Department, where she was found to have an avulsion injury with a significant adherent cutaneous flap. The injury was caused by the nails of her dog, who had jumped off the couch. In the Emergency Department, the flap was sutured in place using seven 5-0 nylon sutures. The patient was placed on Keflex and Augmentin orally, and was discharged. The patient is generally healthy for her age, though has a history of guvr-okji-mndejhiokusbhzx, GERD, hypertension, hypothyroidism, and osteoporosis. She denies a history of diabetes mellitus, myocardial infarction, cerebrovascular accident, renal disease, and pulmonary disease. Her BMI is 19.5. She is . [facility] Medical History Non-pressure chronic ulcer of left calf with fat layer exposed Traumatic open wound of lower leg Avulsion injury GERD (gastroesophageal reflux disease) HTN (hypertension) Hypothyroidism Depression Anxiety Home Medications ?Medication ?Instructions ?Recorded ?Last Taken ?Type levothyroxine 25 mcg tablet 25 mcg PO DAILY Check with primary 02/07/15 09/29/16 09:00 History doctor Bacillus coagulans-inulin 1 1 ea PO DAILY Check with primary 12/07/15 09/29/16 09:00 History billion cell-250 mg capsule doctor (Probiotic Formula (inulin)) gabapentin 100 mg capsule 600 mg PO BID Check with primary 12/07/15 09/29/16 21:00 History doctor nifedipine 60 mg tablet,extended 180 mg PO DAILY Check with primary 12/07/15 09/29/16 09:00 History release 24 hr doctor pantoprazole 20 mg tablet,delayed 20 mg PO DAILY STOMACHE 12/07/15 09/29/16 09:00 History release paroxetine HCl 25 mg 75 mg PO DAILY depression 12/07/15 09/29/16 09:00 History tablet,extended release 24 hr (Paxil CR) aspirin 325 mg tablet,delayed 325 mg PO DAILY HEART 04/26/16 09/29/16 09:00 History release buspirone 5 mg tablet 30 mg PO BID Check with primary 04/26/16 09/29/16 21:00 History doctor budesonide 3 mg 9 mg PO DAILY Check with primary 09/30/16 Unknown History capsule,delayed,extended release doctor (Entocort EC) lorazepam 0.5 mg tablet 0.5 mg PO Q6H PRN PRN Anxiety ##10 10/03/16 Unknown Rx dicyclomine 20 mg tablet 20 mg PO TID Check with primary 09/02/22 Unknown History doctor Metamucil Check with primary doctor 09/07/22 Unknown History food supplemt, lactose-reduced 120 ml PO 4X/DAY Check with 09/07/22 Unknown History 0.08 gram-1.5 kcal/mL oral liquid primary doctor (Ensure Enlive) loperamide 2 mg tablet 2 mg PO Q6H PRN Constipation 09/07/22 Unknown History omeprazole 40 mg PO/SL DAILY Check with 09/07/22 Unknown History primary doctor atorvastatin 80 mg tablet 20 mg (1/4 x 80 mg) PO QHS #30 tabs 09/08/22 Unknown Rx cephalexin 500 mg capsule 500 mg PO BID #12 caps 09/08/22 Unknown Rx amoxicillin 875 mg-potassium 875 mg (0.875 x 875-125 mg) PO 04/29/23 Unknown Rx clavulanate 125 mg tablet Q12H #10 TABLETS Allergy/AdvReac Type Severity Reaction Status Date / Time acetaminophen (From Percocet) Allergy Other Verified 01/06/25 14:05 oxycodone (From Percocet) Allergy Other Verified 01/06/25 14:05 codeine AdvReac Nausea & Verified 01/06/25 14:05 dizziness oxycodone HCl (From Percocet) AdvReac Nausea & Verified 01/06/25 14:05 dizziness Family History Father Diabetes Dementia Surgical History S/P ORIF (open reduction internal fixation) fracture History of surgery on wrist History of cataract surgery History of ankle surgery Social History household members: none Smoking Status: Never smoker substance use type: does not use Vital Signs Vital Signs Vital Signs: 02/23/25 13:26 Temperature 97.2 F L Temperature Source Temporal Pulse Rate 84 Respiratory Rate 14 Blood Pressure 96/76 Blood Pressure Mean 82 Blood Pressure Source Monitor Blood Pressure Position Supine Blood Pressure Location Left Arm Weight Weight: 95 lb Body Mass Index (BMI) 19.5 Physical Exam Const alert, oriented x3, no apparent distress and average body habitus Constitutional Narrative: The patient's BMI is 19.5. General Appearance: cooperative, comfortable, well kempt and well developed Orientation / Consciousness: awake, oriented to person, oriented to place and oriented to time Exam Limitations: no limitations HEENT normocephalic and head/scalp atraumatic Head and Scalp: normal to inspection, normocephalic and atraumatic Face and Sinus: normal facial exam Nose: external nose normal External Ear: external ears normal Eyes EOMs intact bilaterally General Eye: normal appearance of both eyes Neck full ROM Resp normal respiratory effort, normal air movement, no retractions and no use of accessory muscles Effort and Inspection: able to speak in complete sentences Extremity General Extremity: Negative for clubbing or cyanosis Skin Wound Narrative: A traumatic wound is noted on the patient's left medial calf. It is an avulsion injury, with a resultant flap of skin. At the time of the patient's original Emergency Department visit, the flap was repositioned, and sutured in place using seven 5-0 nylon sutures. The sutures have been removed during previous visits. A large portion of the avulsion flap, which had been repositioned and sutured in place, has necrosed and is no longer viable. The wound demonstrates a small amount of yellowish, nonviable material, though increasing areas of healthy granulation tissue are noted. Peripherally, there appears to be evidence of epithelialization and healing. A small portion of the flap has survived and remains viable. The existing wound extends through all layers of the dermis and into the subcutaneous tissues. There is no sign of infection or cellulitis. No significant swelling or edema are noted. The wound continues to diminish in size, and dimensions are documented elsewhere. Wound margins are well beveled. Neuro oriented x3, CN's II-XII intact bilaterally, moves all extremities, no focal motor deficits and no sensory deficits noted Sensorium / Orientation: awake, alert, oriented to person, oriented to place and oriented to time Speech: speech normal Psych Appearance: grossly normal and appropriate Attitude: calm Activity / Motor Behavior: appropriate eye contact Speech: normal speech Mood & Affect: euthymic mood Thought Process: normal thought process Thought Content: normal thought content Attention / Concentration: attention grossly intact Debridement Note Debridement Note Wound debrided: Traumatic avulsion injury of the left medial calf Laterality: Left Type of Debridement: Excisional debridement Anesthesia Used: 5% Lidocaine Gel and Cetacaine Depth: Down to and including healthy tissue and in the subcutaneous layer Percentage of wound debrided: 100 Instrument Used: 5mm curette Tissue Removed: Nonviable tissue and bioburden Severity: Fat Layer Exposed Amount of bleeding with debridement: Mild Bleeding Controlled with: Compression and gauze Patient tolerated procedure: Patient tolerated procedure well Post-Debridement Measurements and Additional Note: Post-Debridement Measurements/Treatment - Nurse 1 - General Ulcer Assessment Start: 02/09/25 13:13 Freq: Status: Active Protocol: WC.[employer]edsign [email or web address] Activity Type Activity Date Activity User E-sign Co-sign Detail Recorded Client Recorded Date Recorded By Document 02/09/25 13:13 KW [id number] 02/09/25 13:18 KW Document 02/16/25 13:06 KW [id number] 02/16/25 13:16 KW Document 02/23/25 13:26 ML [id number] 02/23/25 13:36 ML 02/09/25 02/16/25 02/23/25 13:13 13:06 13:26 - Today's Visit Information Type of service Follow-up Visit Follow-up Visit Follow-up Visit (Physician/SALES AND MARKETING ANALYST (Physician/SALES AND MARKETING ANALYST (Physician/SALES AND MARKETING ANALYST ) ) ) Arrival Mode Ambulatory,Cane Ambulatory,Cane Ambulatory Patient Identification Verified (Name & Yes Yes Yes ) Patient Requires Transmission-Based No Precautions Height and Weight Body Mass Index (BMI) 19.5 19.5 19.5 BMI Classification Normal Normal Normal Vital Signs Temperature (97.8 F-99.1 F) 97.4 F L 97.2 F L 97.2 F L Temperature Source Temporal Temporal Temporal Pulse Rate (60-100) 96 85 84 Pulse Location Monitor Monitor Monitor Respiratory Rate (12-18) 18 16 14 Respiratory rate source Observation Observation Observation Oxygen Delivery Method Room Air Room Air Blood Pressure (90/60-120/80) 106/53 L 115/64 96/76 Blood Pressure Mean 70 81 82 Source Monitor Monitor Monitor Position Semi-Fowlers Semi-Fowlers Supine Blood Pressure Location Left Arm Right Arm Left Arm History Since Last Visit- (Skip if this is Patient's initial visit) Have you changed medications since your No No No last visit? Any new allergies or adverse reactions No No No Had a fall/change in ADL's that may No No No increase risk of falls Signs or symptoms of abuse and/or No No No neglect since last visit Have you been in the hospital since your No No No last visit? Has dressing in place as prescribed Yes Yes Yes Has compression in place as prescribed Yes Yes N/A Has offloadiing in place as prescribed N/A N/A N/A Experienced any changes in pain level or No No No management Left Footwear Regular Shoe Regular Shoe Right Footwear Regular Shoe Regular Shoe Pain Scale: 0-10 Numeric Is Patient Pain Free? Yes Yes Yes WC - Nurse 1 - General Ulcer Measurement Start: 02/09/25 13:13 Freq: Status: Active Protocol: Activity Type Activity Date Activity User E-sign Co-sign Detail Recorded Client Recorded Date Recorded By Document 02/09/25 13:13 KW [id number] 02/09/25 13:18 KW Document 02/16/25 13:06 KW [id number] 02/16/25 13:16 KW Document 02/23/25 13:26 ML [id number] 02/23/25 13:36 ML 02/09/25 02/16/25 02/23/25 13:13 13:06 13:26 Wound Center Nurse 1 #1 LT MED LE -Current Size (cm) - Length 2.2 1.5 1 -Current Size (cm) - Width 2.5 2 1 -Current Size (cm) - Depth 0.1 0.1 0.1 -Total Square Cm 5.50 3.0 1 -Date of Last Picture (Recall this 02/09/25 02/16/25 field) -Exudate Amt Medium Medium Small -Exudate Type Serosanguineous Serosanguineous Serosanguineous -Wound Margin Distinct, Distinct, Outline Outline Attached Attached -Granulation Amt Medium (34-66%) Large (67-100%) -Granulation Quality Klein Klein -Slough/Fibrin Yes -Necrosis Amt Medium (34-66%) Medium (34-66%) None Present (0 %) -Necrotic Tissue Type Adherent Slough Adherent Slough Adherent Slough -Texture (Amylin-wound Skin Appearance) Assessed Assessed Assessed -Moisture (Maylin-wound Skin Appearance) Assessed Assessed Assessed -Color (Maylin-wound Skin Appearance) Assessed, Assessed, Assessed Erythema Erythema -Temperature (Maylin-wound Skin No Abnormality No Abnormality No Abnormality Appearance) (Pt Warm) (Pt Warm) (Pt Warm) -Tenderness on Palpation (Maylin-wound No No No Skin Appearance) -Ulcer Cleansing Rinsed/ Rinsed/ Rinsed/ Irrigated with Irrigated with Irrigated with Saline Saline Saline -Foul Odor after Cleansing No No No -Anesthetic Used 5% Lidocaine 5% Lidocaine 5% Lidocaine Gel Gel Gel WC - Nurse 2 - General Ulcer CM Notes Start: 02/09/25 13:13 Freq: Status: Active Protocol: Activity Type Activity Date Activity User E-sign Co-sign Detail Recorded Client Recorded Date Recorded By Document 02/09/25 13:24 DS [id number] 02/09/25 13:28 DS Document 02/16/25 13:33 DS [id number] 02/16/25 13:36 DS Document 02/23/25 13:47 DS [id number] 02/23/25 13:50 DS 02/09/25 02/16/25 02/23/25 13:24 13:33 13:47 Wound Center Nurse 2 #1 MED LE -Time 13:24 13:33 13:47 -Correct Patient Yes Yes Yes -Correct Side, Site, Position Yes Yes Yes -Correct Procedure Yes Yes Yes -Procedure Performed Yes Yes Yes -Type of Procedure Debridement Debridement Debridement -Clinical Debridement Subcutaneous Subcutaneous Subcutaneous -Tissue Removed Subcutaneous Subcutaneous Subcutaneous -Post Debridement (cm) - Length 1.5 1.5 1.5 -Post Debridement (cm) - Width 1.5 1.8 1.5 -Post Debridement (cm) - Depth 0.1 0.1 0.1 -Total Square (Post) (cm) 2.25 2.70 2.25 -Area of Debridement (cm) - Length 1.5 1.5 1.5 -Area of Debridement (cm) - Width 1.5 1.8 1.5 -Total Square (Area) (cm) 2.25 2.70 2.25 -Tunneling No No No -Undermining/Tunneling No No No -Circular Undermining No No No -Wound/Ulcer Outcome Not Healed Not Healed Not Healed -Ulcer Cleansing Rinsed/ Rinsed/ Rinsed/ Irrigated with Irrigated with Irrigated with Saline Saline Saline -Foul Odor after Cleansing No No No -Bioengineered Tissue No No No -Bleeding Controlled with Pressure Pressure Pressure -Treatment Response Procedure Procedure Procedure Tolerated Well Tolerated Well Tolerated Well -Debridement - Subq, 1st 20sq cm Yes Yes Yes Pain Scale: 0-10 Numeric Is Patient Pain Free? Yes Yes Yes - Nurse 3 - General Ulcer D/C NN Start: 02/09/25 13:13 Freq: Status: Active Protocol: Activity Type Activity Date Activity User E-sign Co-sign Detail Recorded Client Recorded Date Recorded By Document 02/09/25 13:32 KW [id number] 02/09/25 13:33 KW Document 02/16/25 13:46 KW [id number] 02/16/25 13:46 KW Document 02/23/25 13:57 ML [id number] 02/23/25 13:58 ML 02/09/25 02/16/25 02/23/25 13:32 13:46 13:57 Wound Care Center Nurse 3 #1 LT MED LE -Ulcer Cleansing Rinsed/ Irrigated with Saline -Primary Dressing Applied Aquacel Extra Aquacel Extra Aquacel Extra -Other Dressing ZBIGNIEW -Primary Dressing Covered/Secured with Dry Gauze & Dry Gauze & Dry Gauze & Roll Gauze, Roll Gauze, Roll Gauze, Secured with Secured with Secured with Tape Tape Tape -Aquacel Extra 1 1 1 LLE -Compression Wrap Zbigniew Wrap Zbigniew Wrap -Other 4in Pain Scale: 0-10 Numeric Is Patient Pain Free? Yes Yes Yes - Visit Discharge Discharge Condition Stable Stable Ambulatory Status Ambulatory,Cane Ambulatory,Cane Transportation Private Auto Private Auto Medication Reconcilliation completed & No No provided to patient/care provider Clinical Summary of Care Provided Yes Yes Charges/Coding Procedures Integumentary [id number]: [id number] Esha subq tissue 20 sq cm/< Assessment/Plan Assessment/Plan (1) Non-pressure chronic ulcer of left calf with fat layer exposed: CODE(S): L97.222 - Non-pressure chronic ulcer of left calf with fat layer exposed (2) Traumatic open wound of lower leg: CODE(S): S81.809A - Unspecified open wound, unspecified lower leg, initial encounter QUALIFIERS: Encounter type: subsequent encounter Laterality: left Qualified Code(s): S81.802D - Unspecified open wound, left lower leg, subsequent encounter (3) Avulsion injury: CODE(S): T14.8XXA - Other injury of unspecified body region, initial encounter (4) S/P ORIF (open reduction internal fixation) fracture: CODE(S): Z96.7 - Presence of other bone and tendon implants; Z87.81 - Personal history of (healed) traumatic fracture (5) S/P ORIF (open reduction internal fixation) fracture: CODE(S): Z98.890 - Other specified postprocedural states; Z87.81 - Personal history of (healed) traumatic fracture (6) History of surgery on wrist: CODE(S): Z98.890 - Other specified postprocedural states (7) History of cataract surgery: CODE(S): Z98.49 - Cataract extraction status, unspecified eye (8) History of ankle surgery: CODE(S): Z98.890 - Other specified postprocedural states (9) Hypothyroidism: CODE(S): E03.9 - Hypothyroidism, unspecified QUALIFIERS: Hypothyroidism type: acquired Qualified Code(s): E03.9 - Hypothyroidism, unspecified (10) Raynaud phenomenon: CODE(S): I73.00 - Raynaud's syndrome without gangrene QUALIFIERS: Raynaud?s-associated gangrene presence: without gangrene Qualified Code(s): I73.00 - Raynaud's syndrome without gangrene (11) Osteoporosis: CODE(S): M81.0 - Age-related osteoporosis without current pathological fracture (12) Nthg-uheo-wdrpxtijenrtqfa: 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 The injury occurred when the patient's dog traumatized her leg with its nails. Immediately following her injury, the patient presented to the [facility] Emergency Department, where the avulsion flap was repositioned and sutured in place. The central portion of the traumatic flap has now necrosed, and is no longer viable. This portion of the wound has been debrided in the Wound Center today. It is a full-thickness ulceration, extending down into the subcutaneous tissues. There has been recent improvement, with a decrease in the size of the patient's wound. We are to continue the use of Aquacel Extra topically, which will be moistened at the time of application. The patient has been instructed in the appropriate means of application. Mild compression is to be applied by means of an Zbigniew wrap, which will be applied on a daily basis. The patient has been counseled to elevate her lower extremities as much as possible, to remain active, and to avoid prolonged, idle sitting. She is to return in 1 week for reassessment. The patient has been advised to optimize her nutritional intake, and is using Huy as a supplement. Total time: 24 minutes
[2025-03-02 13:34] VITALS: BP 99/56; PULSE 91; RESP 16; TEMP 37.1; BMI 19.5
--- NOTE | 2025-03-03 07:45 | WC ---
PHOTO 03/02/25 Luis FLETCHER
--- NOTE | 2025-03-03 10:57 | PCM.WC.HP ---
History of Present Illness Date of Service: 03/02/25 Chief Complaint: Traumatic avulsion injury of the left medial calf History of Wound: This is a 74-year-old female who sustained a traumatic injury to her left medial calf on January 01, 2025. At the time of her injury, she presented to the [facility] Emergency Department, where she was found to have an avulsion injury with a significant adherent cutaneous flap. The injury was caused by the nails of her dog, who had jumped off the couch. In the Emergency Department, the flap was sutured in place using seven 5-0 nylon sutures. The patient was placed on Keflex and Augmentin orally, and was discharged. The patient is generally healthy for her age, though has a history of otzj-pitz-gqorlykyxcphywv, GERD, hypertension, hypothyroidism, and osteoporosis. She denies a history of diabetes mellitus, myocardial infarction, cerebrovascular accident, renal disease, and pulmonary disease. Her BMI is 19.5. She is . [facility] Medical History Non-pressure chronic ulcer of left calf with fat layer exposed Traumatic open wound of lower leg Avulsion injury GERD (gastroesophageal reflux disease) HTN (hypertension) Hypothyroidism Depression Anxiety Home Medications ?Medication ?Instructions ?Recorded ?Last Taken ?Type levothyroxine 25 mcg tablet 25 mcg PO DAILY Check with primary 02/07/15 09/29/16 09:00 History doctor Bacillus coagulans-inulin 1 1 ea PO DAILY Check with primary 12/07/15 09/29/16 09:00 History billion cell-250 mg capsule doctor (Probiotic Formula (inulin)) gabapentin 100 mg capsule 600 mg PO BID Check with primary 12/07/15 09/29/16 21:00 History doctor nifedipine 60 mg tablet,extended 180 mg PO DAILY Check with primary 12/07/15 09/29/16 09:00 History release 24 hr doctor pantoprazole 20 mg tablet,delayed 20 mg PO DAILY STOMACHE 12/07/15 09/29/16 09:00 History release paroxetine HCl 25 mg 75 mg PO DAILY depression 12/07/15 09/29/16 09:00 History tablet,extended release 24 hr (Paxil CR) aspirin 325 mg tablet,delayed 325 mg PO DAILY HEART 04/26/16 09/29/16 09:00 History release buspirone 5 mg tablet 30 mg PO BID Check with primary 04/26/16 09/29/16 21:00 History doctor budesonide 3 mg 9 mg PO DAILY Check with primary 09/30/16 Unknown History capsule,delayed,extended release doctor (Entocort EC) lorazepam 0.5 mg tablet 0.5 mg PO Q6H PRN PRN Anxiety ##10 10/03/16 Unknown Rx dicyclomine 20 mg tablet 20 mg PO TID Check with primary 09/02/22 Unknown History doctor Metamucil Check with primary doctor 09/07/22 Unknown History food supplemt, lactose-reduced 120 ml PO 4X/DAY Check with 09/07/22 Unknown History 0.08 gram-1.5 kcal/mL oral liquid primary doctor (Ensure Enlive) loperamide 2 mg tablet 2 mg PO Q6H PRN Constipation 09/07/22 Unknown History omeprazole 40 mg PO/SL DAILY Check with 09/07/22 Unknown History primary doctor atorvastatin 80 mg tablet 20 mg (1/4 x 80 mg) PO QHS #30 tabs 09/08/22 Unknown Rx cephalexin 500 mg capsule 500 mg PO BID #12 caps 09/08/22 Unknown Rx amoxicillin 875 mg-potassium 875 mg (0.875 x 875-125 mg) PO 04/29/23 Unknown Rx clavulanate 125 mg tablet Q12H #10 TABLETS Allergy/AdvReac Type Severity Reaction Status Date / Time acetaminophen (From Percocet) Allergy Other Verified 01/06/25 14:05 oxycodone (From Percocet) Allergy Other Verified 01/06/25 14:05 codeine AdvReac Nausea & Verified 01/06/25 14:05 dizziness oxycodone HCl (From Percocet) AdvReac Nausea & Verified 01/06/25 14:05 dizziness Family History Father Diabetes Dementia Surgical History S/P ORIF (open reduction internal fixation) fracture History of surgery on wrist History of cataract surgery History of ankle surgery Social History household members: none Smoking Status: Never smoker substance use type: does not use Vital Signs Vital Signs Vital Signs: 03/02/25 13:34 Temperature 98.7 F Temperature Source Temporal Pulse Rate 91 Respiratory Rate 16 Blood Pressure 99/56 L Blood Pressure Mean 70 Blood Pressure Source Monitor Blood Pressure Position Sitting Blood Pressure Location Right Arm Oxygen Delivery Method Room Air Weight Weight: 95 lb Body Mass Index (BMI) 19.5 Physical Exam Const alert, oriented x3, no apparent distress and average body habitus Constitutional Narrative: The patient's BMI is 19.5. General Appearance: cooperative, comfortable, well kempt and well developed Orientation / Consciousness: awake, oriented to person, oriented to place and oriented to time Exam Limitations: no limitations HEENT normocephalic and head/scalp atraumatic Head and Scalp: normal to inspection, normocephalic and atraumatic Face and Sinus: normal facial exam Nose: external nose normal External Ear: external ears normal Eyes EOMs intact bilaterally General Eye: normal appearance of both eyes Neck full ROM Resp normal respiratory effort, normal air movement, no retractions and no use of accessory muscles Effort and Inspection: able to speak in complete sentences Extremity General Extremity: Negative for clubbing or cyanosis Skin Wound Narrative: A traumatic wound is noted on the patient's left medial calf. It is an avulsion injury, with a resultant flap of skin. At the time of the patient's original Emergency Department visit, the flap was repositioned, and sutured in place using seven 5-0 nylon sutures. The sutures have been removed during previous visits. A large portion of the avulsion flap, which had been repositioned and sutured in place, subsequently necrosed and was no longer viable. The current wound demonstrates a bed of generally pink, healthy granulation tissue with a small amount of bioburden. It is full-thickness in nature, extending through all layers of the dermis and into the subcutaneous tissues. Wound margins are well beveled. There is no sign of infection or cellulitis. No significant swelling or edema are noted in the left lower extremity. The wound continues to diminish in size, and dimensions are documented elsewhere. Neuro oriented x3, CN's II-XII intact bilaterally, moves all extremities, no focal motor deficits and no sensory deficits noted Sensorium / Orientation: awake, alert, oriented to person, oriented to place and oriented to time Speech: speech normal Psych Appearance: grossly normal and appropriate Attitude: calm Activity / Motor Behavior: appropriate eye contact Speech: normal speech Mood & Affect: euthymic mood Thought Process: normal thought process Thought Content: normal thought content Attention / Concentration: attention grossly intact Debridement Note Debridement Note Wound debrided: Traumatic avulsion injury of the left medial calf Laterality: Left Type of Debridement: Excisional debridement Anesthesia Used: 5% Lidocaine Gel and Cetacaine Depth: Down to and including healthy tissue and in the subcutaneous layer Percentage of wound debrided: 100 Instrument Used: 5mm curette Tissue Removed: Bioburden Severity: Fat Layer Exposed Amount of bleeding with debridement: Mild Bleeding Controlled with: Compression and gauze Patient tolerated procedure: Patient tolerated procedure well Post-Debridement Measurements and Additional Note: Post-Debridement Measurements/Treatment - Nurse 1 - General Ulcer Assessment Start: 02/09/25 13:13 Freq: Status: Active Protocol: NATHALIE Activity Type Activity Date Activity User E-sign Co-sign Detail Recorded Client Recorded Date Recorded By Document 02/09/25 13:13 KW [id number] 02/09/25 13:18 KW Document 02/16/25 13:06 KW [id number] 02/16/25 13:16 KW Document 02/23/25 13:26 ML [id number] 02/23/25 13:36 ML Document 03/02/25 13:34 KW [id number] 03/02/25 13:40 KW 02/09/25 02/16/25 02/23/25 13:13 13:06 13:26 - Today's Visit Information Type of service Follow-up Visit Follow-up Visit Follow-up Visit (Physician/MANAGER CLINICAL INFORMATICS (Physician/MANAGER CLINICAL INFORMATICS (Physician/MANAGER CLINICAL INFORMATICS ) ) ) Arrival Mode Ambulatory,Cane Ambulatory,Cane Ambulatory Patient Identification Verified (Name & Yes Yes Yes ) Patient Requires Transmission-Based No Precautions Height and Weight Body Mass Index (BMI) 19.5 19.5 19.5 BMI Classification Normal Normal Normal Vital Signs Temperature (97.8 F-99.1 F) 97.4 F L 97.2 F L 97.2 F L Temperature Source Temporal Temporal Temporal Pulse Rate (60-100) 96 85 84 Pulse Location Monitor Monitor Monitor Respiratory Rate (12-18) 18 16 14 Respiratory rate source Observation Observation Observation Oxygen Delivery Method Room Air Room Air Blood Pressure (90/60-120/80) 106/53 L 115/64 96/76 Blood Pressure Mean 70 81 82 Source Monitor Monitor Monitor Position Semi-Fowlers Semi-Fowlers Supine Blood Pressure Location Left Arm Right Arm Left Arm History Since Last Visit- (Skip if this is Patient's initial visit) Have you changed medications since your No No No last visit? Any new allergies or adverse reactions No No No Had a fall/change in ADL's that may No No No increase risk of falls Signs or symptoms of abuse and/or No No No neglect since last visit Have you been in the hospital since your No No No last visit? Has dressing in place as prescribed Yes Yes Yes Has compression in place as prescribed Yes Yes N/A Has offloadiing in place as prescribed N/A N/A N/A Experienced any changes in pain level or No No No management Left Footwear Regular Shoe Regular Shoe Right Footwear Regular Shoe Regular Shoe Pain Scale: 0-10 Numeric Is Patient Pain Free? Yes Yes Yes 03/02/25 13:34 WC - Today's Visit Information Type of service Follow-up Visit (Physician/MANAGER CLINICAL INFORMATICS ) Arrival Mode Ambulatory,Cane Patient Identification Verified (Name & Yes ) Patient Requires Transmission-Based Precautions Height and Weight Body Mass Index (BMI) 19.5 BMI Classification Normal Vital Signs Temperature (97.8 F-99.1 F) 98.7 F Temperature Source Temporal Pulse Rate (60-100) 91 Pulse Location Monitor Respiratory Rate (12-18) 16 Respiratory rate source Observation Oxygen Delivery Method Room Air Blood Pressure (90/60-120/80) 99/56 L Blood Pressure Mean 70 Source Monitor Position Sitting Blood Pressure Location Right Arm History Since Last Visit- (Skip if this is Patient's initial visit) Have you changed medications since your No last visit? Any new allergies or adverse reactions No Had a fall/change in ADL's that may No increase risk of falls Signs or symptoms of abuse and/or No neglect since last visit Have you been in the hospital since your No last visit? Has dressing in place as prescribed Yes Has compression in place as prescribed Yes Has offloadiing in place as prescribed N/A Experienced any changes in pain level or No management Left Footwear Regular Shoe Right Footwear Regular Shoe Pain Scale: 0-10 Numeric Is Patient Pain Free? Yes WC - Nurse 1 - General Ulcer Measurement Start: 02/09/25 13:13 Freq: Status: Active Protocol: Activity Type Activity Date Activity User E-sign Co-sign Detail Recorded Client Recorded Date Recorded By Document 02/09/25 13:13 KW [id number] 02/09/25 13:18 KW Document 02/16/25 13:06 KW [id number] 02/16/25 13:16 KW Document 02/23/25 13:26 ML [id number] 02/23/25 13:36 ML Document 03/02/25 13:34 KW [id number] 03/02/25 13:40 KW 02/09/25 02/16/25 02/23/25 13:13 13:06 13:26 Wound Center Nurse 1 #1 LT MED LE -Current Size (cm) - Length 2.2 1.5 1 -Current Size (cm) - Width 2.5 2 1 -Current Size (cm) - Depth 0.1 0.1 0.1 -Total Square Cm 5.50 3.0 1 -Date of Last Picture (Recall this 02/09/25 02/16/25 field) -Exudate Amt Medium Medium Small -Exudate Type Serosanguineous Serosanguineous Serosanguineous -Wound Margin Distinct, Distinct, Outline Outline Attached Attached -Granulation Amt Medium (34-66%) Large (67-100%) -Granulation Quality [place] -Slough/Fibrin Yes -Necrosis Amt Medium (34-66%) Medium (34-66%) None Present (0 %) -Necrotic Tissue Type Adherent Slough Adherent Slough Adherent Slough -Texture (Maylin-wound Skin Appearance) Assessed Assessed Assessed -Moisture (Maylin-wound Skin Appearance) Assessed Assessed Assessed -Color (Maylin-wound Skin Appearance) Assessed, Assessed, Assessed Erythema Erythema -Temperature (Maylin-wound Skin No Abnormality No Abnormality No Abnormality Appearance) (Pt Warm) (Pt Warm) (Pt Warm) -Tenderness on Palpation (Maylin-wound No No No Skin Appearance) -Ulcer Cleansing Rinsed/ Rinsed/ Rinsed/ Irrigated with Irrigated with Irrigated with Saline Saline Saline -Foul Odor after Cleansing No No No -Anesthetic Used 5% Lidocaine 5% Lidocaine 5% Lidocaine Gel Gel Gel Left Calf (cm) Left Ankle (cm) 03/02/25 13:34 Wound Center Nurse 1 #1 LT MED LE -Current Size (cm) - Length 1 -Current Size (cm) - Width 1 -Current Size (cm) - Depth 0.1 -Total Square Cm 1 -Date of Last Picture (Recall this 03/02/25 field) -Exudate Amt -Exudate Type -Wound Margin -Granulation Amt Large (67-100%) -Granulation Quality [place] -Slough/Fibrin -Necrosis Amt Small (1-33%) -Necrotic Tissue Type Adherent Slough -Texture (Maylin-wound Skin Appearance) Assessed -Moisture (Maylin-wound Skin Appearance) Assessed -Color (Maylin-wound Skin Appearance) Assessed -Temperature (Maylin-wound Skin No Abnormality Appearance) (Pt Warm) -Tenderness on Palpation (Maylin-wound No Skin Appearance) -Ulcer Cleansing Soap and Water -Foul Odor after Cleansing No -Anesthetic Used 5% Lidocaine Gel Left Calf (cm) 32.5 Left Ankle (cm) 17 WC - Nurse 2 - General Ulcer CM Notes Start: 02/09/25 13:13 Freq: Status: Active Protocol: Activity Type Activity Date Activity User E-sign Co-sign Detail Recorded Client Recorded Date Recorded By Document 02/09/25 13:24 DS [id number] 02/09/25 13:28 DS Document 02/16/25 13:33 DS [id number] 02/16/25 13:36 DS Document 02/23/25 13:47 DS [id number] 02/23/25 13:50 DS Document 03/02/25 14:09 DS [id number] 03/02/25 14:11 DS 02/09/25 02/16/25 02/23/25 13:24 13:33 13:47 Wound Center Nurse 2 #1 LT MED LE -Time 13:24 13:33 13:47 -Correct Patient Yes Yes Yes -Correct Side, Site, Position Yes Yes Yes -Correct Procedure Yes Yes Yes -Procedure Performed Yes Yes Yes -Type of Procedure Debridement Debridement Debridement -Clinical Debridement Subcutaneous Subcutaneous Subcutaneous -Tissue Removed Subcutaneous Subcutaneous Subcutaneous -Post Debridement (cm) - Length 1.5 1.5 1.5 -Post Debridement (cm) - Width 1.5 1.8 1.5 -Post Debridement (cm) - Depth 0.1 0.1 0.1 -Total Square (Post) (cm) 2.25 2.70 2.25 -Area of Debridement (cm) - Length 1.5 1.5 1.5 -Area of Debridement (cm) - Width 1.5 1.8 1.5 -Total Square (Area) (cm) 2.25 2.70 2.25 -Tunneling No No No -Undermining/Tunneling No No No -Circular Undermining No No No -Wound/Ulcer Outcome Not Healed Not Healed Not Healed -Ulcer Cleansing Rinsed/ Rinsed/ Rinsed/ Irrigated with Irrigated with Irrigated with Saline Saline Saline -Foul Odor after Cleansing No No No -Bioengineered Tissue No No No -Bleeding Controlled with Pressure Pressure Pressure -Treatment Response Procedure Procedure Procedure Tolerated Well Tolerated Well Tolerated Well -Debridement - Subq, 1st 20sq cm Yes Yes Yes Pain Scale: 0-10 Numeric Is Patient Pain Free? Yes Yes Yes 03/02/25 14:09 Wound Center Nurse 2 #1 LT MED LE -Time 14:09 -Correct Patient Yes -Correct Side, Site, Position Yes -Correct Procedure Yes -Procedure Performed Yes -Type of Procedure Debridement -Clinical Debridement Subcutaneous -Tissue Removed Subcutaneous -Post Debridement (cm) - Length 1.2 -Post Debridement (cm) - Width 1.3 -Post Debridement (cm) - Depth 0.1 -Total Square (Post) (cm) 1.56 -Area of Debridement (cm) - Length 1.2 -Area of Debridement (cm) - Width 1.3 -Total Square (Area) (cm) 1.56 -Tunneling No -Undermining/Tunneling No -Circular Undermining No -Wound/Ulcer Outcome Not Healed -Ulcer Cleansing Rinsed/ Irrigated with Saline -Foul Odor after Cleansing No -Bioengineered Tissue No -Bleeding Controlled with Pressure -Treatment Response Procedure Tolerated Well -Debridement - Subq, 1st 20sq cm Yes Pain Scale: 0-10 Numeric Is Patient Pain Free? Yes - Nurse 3 - General Ulcer D/C NN Start: 02/09/25 13:13 Freq: Status: Active Protocol: Activity Type Activity Date Activity User E-sign Co-sign Detail Recorded Client Recorded Date Recorded By Document 02/09/25 13:32 KW [id number] 02/09/25 13:33 KW Document 02/16/25 13:46 KW [id number] 02/16/25 13:46 KW Document 02/23/25 13:57 ML [id number] 02/23/25 13:58 ML Document 03/02/25 14:25 BMF [id number] 03/02/25 14:26 BMF 02/09/25 02/16/25 02/23/25 13:32 13:46 13:57 Wound Care Center Nurse 3 #1 LT MED LE -Ulcer Cleansing Rinsed/ Irrigated with Saline -Foul Odor after Cleansing -Primary Dressing Applied Aquacel Extra Aquacel Extra Aquacel Extra -Other Dressing [email or web address] -Primary Dressing Covered/Secured with Dry Gauze & Dry Gauze & Dry Gauze & Roll Gauze, Roll Gauze, Roll Gauze, Secured with Secured with Secured with Tape Tape Tape -Aquacel Extra 1 1 1 LLE -Compression Wrap Zbigniew Wrap Zbigniew Wrap -Other 4in Treatment Response Pain Scale: 0-10 Numeric Is Patient Pain Free? Yes Yes Yes WC - Visit Discharge Discharge Condition Stable Stable Ambulatory Status Ambulatory,Cane Ambulatory,Cane Transportation Private Auto Private Auto Medication Reconcilliation completed & No No provided to patient/care provider Clinical Summary of Care Provided Yes Yes 03/02/25 14:25 Wound Care Center Nurse 3 #1 LT MED LE -Ulcer Cleansing Rinsed/ Irrigated with Saline -Foul Odor after Cleansing No -Primary Dressing Applied Aquacel Extra -Other Dressing -Primary Dressing Covered/Secured with Dry Gauze & Roll Gauze, Secured with Tape -Aquacel Extra 1 LLE -Compression Wrap Zbigniew Wrap -Other Treatment Response Procedure Tolerated Well Pain Scale: 0-10 Numeric Is Patient Pain Free? Yes WC - Visit Discharge Discharge Condition Stable Ambulatory Status Ambulatory,Cane Transportation Private Auto Medication Reconcilliation completed & provided to patient/care provider Clinical Summary of Care Provided Charges/Coding Procedures Integumentary [id number]: [id number] Esha subq tissue 20 sq cm/< Assessment/Plan Assessment/Plan (1) Non-pressure chronic ulcer of left calf with fat layer exposed: CODE(S): L97.222 - Non-pressure chronic ulcer of left calf with fat layer exposed (2) Traumatic open wound of lower leg: CODE(S): S81.809A - Unspecified open wound, unspecified lower leg, initial encounter QUALIFIERS: Encounter type: subsequent encounter Laterality: left Qualified Code(s): S81.802D - Unspecified open wound, left lower leg, subsequent encounter (3) Avulsion injury: CODE(S): T14.8XXA - Other injury of unspecified body region, initial encounter (4) S/P ORIF (open reduction internal fixation) fracture: CODE(S): Z96.7 - Presence of other bone and tendon implants; Z87.81 - Personal history of (healed) traumatic fracture (5) S/P ORIF (open reduction internal fixation) fracture: CODE(S): Z98.890 - Other specified postprocedural states; Z87.81 - Personal history of (healed) traumatic fracture (6) History of surgery on wrist: CODE(S): Z98.890 - Other specified postprocedural states (7) History of cataract surgery: CODE(S): Z98.49 - Cataract extraction status, unspecified eye (8) History of ankle surgery: CODE(S): Z98.890 - Other specified postprocedural states (9) Hypothyroidism: CODE(S): E03.9 - Hypothyroidism, unspecified QUALIFIERS: Hypothyroidism type: acquired Qualified Code(s): E03.9 - Hypothyroidism, unspecified (10) Raynaud phenomenon: CODE(S): I73.00 - Raynaud's syndrome without gangrene QUALIFIERS: Raynaud?s-associated gangrene presence: without gangrene Qualified Code(s): I73.00 - Raynaud's syndrome without gangrene (11) Osteoporosis: CODE(S): M81.0 - Age-related osteoporosis without current pathological fracture (12) Ytql-rzhj-nercsvpsfbtksmt: 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 The injury occurred when the patient's dog traumatized her leg with its nails. Immediately following her injury, the patient presented to the [facility] Emergency Department, where the avulsion flap was repositioned and sutured in place. The central portion of the traumatic flap has necrosed, and is no longer viable. The remaining wound is full-thickness, extending down into the subcutaneous tissues. There has been recent improvement, with a decrease in the size of the patient's wound. We are to continue the use of Aquacel Extra topically, which will be moistened at the time of application. The patient has been instructed in the appropriate means of daily application. Mild compression is to be applied by means of an Zbigniew wrap, which will also be applied on a daily basis. The patient has been counseled to elevate her lower extremities as much as possible, to remain active, and to avoid prolonged, idle sitting. She is to return in 1 week for reassessment. The patient has been advised to optimize her nutritional intake, and is using Huy as a supplement. Total time: 22 minutes
== END 2025-03-08 23:59 | disposition home or self-care (01) ==
LOC: WC 13:30
PROVIDERS: PCP Internal Medicine; Referring Provider Internal Medicine; Visit Provider Surgery
DX: L97.222 Non-pressure chronic ulcer of left calf with fat layer exposed (principal); E03.9 Hypothyroidism, unspecified; I73.00 Raynaud's syndrome without gangrene; I10 Essential (primary) hypertension; M81.0 Age-related osteoporosis without current pathological fracture; K21.9 Gastro-esophageal reflux disease without esophagitis; S81.802S Unspecified open wound, left lower leg, sequela; W55.8 Contact with other mammals; Z79.899 Other long term (current) drug therapy; Z79.890 Hormone replacement therapy; E78.6 Lipoprotein deficiency
CPT/HCPCS: 11042

== ENCOUNTER 2025-03-13 19:13 | Emergency (ER) | payer MEDICARE, OTHER, SELFPAY ==
[2025-03-13 19:13] VITALS: BP 138/115; PULSE 92; RESP 18; TEMP 36.8; O2SAT 99; BMI 19.4
[2025-03-13] MEDS: Lidocaine 1% (20 ml mdv) 20 ML Vial 10 ML INFILT (20:21)
[2025-03-13 21:15] VITALS: BP 138/88; PULSE 76; RESP 18; TEMP 36.6; O2SAT 100
== END 2025-03-13 21:16 | disposition home or self-care (01) ==
PROVIDERS: Emergency Provider Emergency Medicine; PCP Internal Medicine; Visit Provider Emergency Medicine
DX: S81.811A Laceration without foreign body, right lower leg, initial encounter (principal); W54.1XXA Struck by dog, initial encounter; I10 Essential (primary) hypertension; F41.9 Anxiety disorder, unspecified; F32.A Depression, unspecified; K21.9 Gastro-esophageal reflux disease without esophagitis; E03.9 Hypothyroidism, unspecified; Z79.890 Hormone replacement therapy; Z79.899 Other long term (current) drug therapy
CPT/HCPCS: 12002; 99282

== ENCOUNTER 2025-03-18 09:23 | Emergency (ER) | payer MEDICARE, OTHER, SELFPAY ==
[2025-03-18 09:23] VITALS: BP 117/59; PULSE 81; RESP 14; TEMP 36.6; O2SAT 94; BMI 18.8
--- NOTE | 2025-03-18 10:03 | RAD_ITS ---
PROCEDURE: PELVIS 1 OR 2 VIEWS 03/18/2025 REASON FOR EXAM: FALL TECHNIQUE: PELVIS 1 OR 2 VIEWS COMPARISON: None FINDINGS: Hardware: Status post ORIF of a right subcapital fracture and transverse fracture of the proximal shaft of the right femur. Healed fractures of the right superior inferior pubic rami with residual deformity. Bones: No acute fracture is seen. Joints: Degenerative changes of the sacroiliac joints as well as the left hip joint. soft tissues: Unremarkable Other: RAD/Pelvis 1 or 2 Views IMPRESSION: No acute fracture is seen. Reading Location: [facility]
--- NOTE | 2025-03-18 10:04 | EDS_ITS ---
HPI History of Present Illness Chief Complaint: Lower Extremity Injury Narrative Narrative: Patient is a 74-year-old female with past medical history hypertension, hypothyroidism, depression, anxiety, GERD who presents to the emergency department chief complaint of left thigh/hip pain. Patient states that yesterday she lost her balance causing her to slide down her bathroom wall. Patient states that she did not hit her head should not pass out. States that originally she thought she bruised her leg causing her pain however felt that the pain was worsening therefore she came here for further evaluation management. Patient denies any blood thinning medications. [facility] Medical History Non-pressure chronic ulcer of left calf with fat layer exposed Traumatic open wound of lower leg Avulsion injury GERD (gastroesophageal reflux disease) HTN (hypertension) Hypothyroidism Depression Anxiety Home Medications ?Medication ?Instructions ?Recorded ?Last Taken ?Type levothyroxine 25 mcg tablet 25 mcg PO DAILY Check with primary 02/07/15 09/29/16 09:00 History doctor Bacillus coagulans-inulin 1 1 ea PO DAILY Check with jesus cheung 12/07/15 09/29/16 09:00 History billion cell-250 mg capsule doctor (Probiotic Formula (inulin)) gabapentin 100 mg capsule 600 mg PO BID Check with moose mcmillan 12/07/15 09/29/16 21:00 History doctor nifedipine 60 mg tablet,extended 180 mg PO DAILY Check with primary 12/07/15 09/29/16 09:00 History release 24 hr doctor pantoprazole 20 mg tablet,delayed 20 mg PO DAILY [facility] 12/07/15 09/29/16 09:00 History release paroxetine HCl 25 mg 75 mg PO DAILY depression 09/29/16 09:00 History tablet,extended release 24 hr (Paxil CR) aspirin 325 mg tablet,delayed 325 mg PO DAILY HEART 09/29/16 09:00 History release buspirone 5 mg tablet 30 mg PO BID Check with prim lesley 04/26/16 09/29/16 21:00 History doctor budesonide 3 mg 9 mg PO DAILY Check with moose mcmillan 09/30/16 Unknown History capsule,delayed,extended release doctor (Entocort EC) lorazepam 0.5 mg tablet 0.5 mg PO Q6H PRN PRN Anxiet y ##10 10/03/16 Unknown Rx dicyclomine 20 mg tablet 20 mg PO TID Check with prim lesley 09/02/22 Unknown History doctor Metamucil Check with primary doctor Unknown History food supplemt, lactose-reduced 120 ml PO 4X/DAY Check with 09/07/22 Unknown History 0.08 gram-1.5 kcal/mL oral liquid primary doctor (Ensure Enlive) loperamide 2 mg tablet 2 mg PO Q6H PRN Constipation 09/07/22 Unknown History omeprazole 40 mg PO/SL DAILY Check with 09/07/22 Unknown History primary doctor atorvastatin 80 mg tablet 20 mg (1/4 x 80 mg) PO QHS # 30 tabs 09/08/22 Unknown Rx cyclobenzaprine 5 mg tablet 5 mg PO TID PRN muscle spa sm #14 03/18/25 Unknown Rx tabs ondansetron 4 mg disintegrating 4 mg PO Q6H PRN nausea and 03/18/25 Unknown Rx tablet vomiting #20 tabs oxycodone-acetaminophen 5 mg-325 1 tab PO Q6H PRN pain 2 days #8 03/18/25 Unknown Rx mg tablet (Endocet) tabs Allergy/AdvReac Type Severity Reaction Status Date / Time acetaminophen (From Percocet) Allergy Other Verified 03/13/25 19:15 oxycodone (From Percocet) Allergy Other Verified 03/13/25 19:15 codeine AdvReac Nausea & Verified 03/13/25 19:15 dizziness oxycodone HCl (From Percocet) AdvReac Nausea & Verified 03/13/25 19:15 dizziness Family History Father Diabetes Dementia Surgical History S/P ORIF (open reduction internal fixation) fracture History of surgery on wrist History of cataract surgery History of ankle surgery Social History household members: none Smoking Status: Never smoker substance use type: does not use ROS ROS ED ROS Narrative Constitutional: Denies any headaches Eyes: Denies double vision blurry vision Cardiovascular: Denies chest pain Respiratory: Denies coughing wheezing shortness of breath Abdomen: Denies nausea vomiting : Denies any urinary symptoms Neurological: Denies any numbness, wheeze, tingling Musculoskeletal: Complains of left hip, thigh and low back pain Skin: Complains of bruising to the left thigh EXAM Physical Exam Narrative Exam Narrative: General: Patient is lying in bed rest comfortably do not appear to be acute distress Head: Atraumatic, normocephalic Eyes: PERRL bilaterally, EOMI blood, no conjunctival injection noted, no Tineo sign no raccoon eyes Neck: Soft, supple, trachea midline, no tenderness palpation midline cervical spine Cardiovascular: Regular rate and rhythm Respiratory: Clear to auscultation bilaterally Abdomen: Soft, nondistended, nontender to palpation Musculoskeletal: No tenderness palpation midline of thoracic spine, patient is tenderness palpation at the L5 level no step-offs or deformities noted, patient does have full range of motion of her hip however she states that she does have mild pain associated with this, mild tenderness palpation over the left femur Extremities: Radial pulses +2/4 in the bilateral extremities, +4/5 strength noted in the bilateral upper and lower extremities Neurological: Patient following commands and that she was at [facility] year is 2024 Skin: Warm, dry, intact no rashes noted patient does have some ecchymosis noted over the lateral left thigh Const Vital Signs: 03/18/25 09:23 Temperature 98 F Temperature Source Temporal Pulse Rate 81 Respiratory Rate 14 Blood Pressure 117/59 L Blood Pressure Mean 78 Pulse Ox 94 Oxygen Delivery Method Room Air MDM MDM MDM Narrative Medical decision making narrative: Patient is a 74-year-old female who presented to the emergency department the chief complaint of fall yesterday with left lower extremity/thigh pain and low back pain. On the differential diagnosis includes but not limited to compression fracture, hip fracture, femur fracture. Once workup is obtained reviewed she will be reevaluated. Patient femur x-ray reviewed by myself by radiology showed no acute fracture or dislocation. Patient's pelvis x-ray reviewed by myself by radiology showed no acute fracture or dislocation. Patient CT lumbar spine showed a nondisplaced compression fracture along the anterior superior endplate of the L4 vertebrae consistent where she is tender. Called and spoke with on-call orthopedic surgeon Dr. Brito who states that he can follow-up with her in the outpatient setting. Pain control. Patient ambulated here in the emergency department multiple times without difficulty she remains neurovascularly intact. She is agreeable with this plan as well as significant other at bedside. She was given prescriptions for En docet and Zofran for severe pain otherwise she is to rotate Tylenol and ibuprofen [id number] she also began prescription for cyclobenzaprine. All question concerns answered she was discharged home in stable condition peer Radiography Diagnostic Testing: Clinical Impression(s) from Imaging Studies Pelvis X-Ray 03/18/25 10:03 IMPRESSION: No acute fracture is seen. Reading Location: [facility] 03/18/25 10:10 IMPRESSION: LUMBAR DEGENERATIVE DISC AND FACET DISEASE. Nondisplaced compression fracture along the anterior superior endplate of the L4 vertebrae. Reading Location: [facility] Femur X-Ray 03/18/25 10:20 IMPRESSION: NO ACUTE FRACTURE OR DISLOCATION. Reading Location: [facility] Discharge Plan Triage Chief Complaint: Lower Extremity Injury ED Provider: Will Knapp Dx/Rx/DC Orders Clinical Impression: Fall, Anxiety, HTN (hypertension), Compression fracture, Left leg pain Prescriptions: New ondansetron 4 mg tablet,disintegrating 4 mg PO Q6H PRN (Reason: nausea and vomiting) Qty: 20 0RF cyclobenzaprine 5 mg tablet 5 mg PO TID PRN (Reason: muscle spasm) Qty: 14 0RF oxycodone-acetaminophen [Endocet] 5-325 mg tablet 1 tab PO Q6H PRN (Reason: pain) 2 Days Qty: 8 0RF No Action levothyroxine 25 MCG tablet 25 mcg PO DAILY Patient Comments: thyroid pantoprazole 20 MG tablet 20 mg PO DAILY Patient Comments: acid reflux nifedipine 60 MG tablet 180 mg PO DAILY Patient Comments: heart rate gabapentin 100 MG capsule 600 mg PO BID Patient Comments: nerve pain Probiotic Formula (inulin) 1 EACH capsule 1 ea PO DAILY Patient Comments: stomach; treat IBS paroxetine HCl [Paxil CR] 25 MG tablet extended release 24 hr 75 mg PO DAILY Patient Comments: Treat major depressive disorder buspirone 5 MG tablet 30 mg PO BID aspirin 325 MG tablet 325 mg PO DAILY Patient Comments: blood thinner budesonide [Entocort EC] 3 MG capsule,delayed,extend.release 9 mg PO DAILY lorazepam 0.5 MG tablet 0.5 mg PO Q6H PRN PRN (Reason: Anxiety) Qty: 10 0RF dicyclomine 20 mg tablet 20 mg PO TID Ensure Enlive 120 ML liquid 120 ml PO 4X/DAY omeprazole 40 mg capsule 40 mg PO/SL DAILY loperamide 2 mg Tablet 2 mg PO Q6H PRN (Reason: Constipation) Metamucil atorvastatin 80 mg Tablet 20 mg PO QHS Qty: 30 0RF Primary Care Provider: Katey Henderson Referrals: Katey Henderson MD [Primary Care Provider] - Activity Restrictions/Additional Instructions: Use prescriptions as prescribed use the Endocet and Zofran for severe pain and sure that you use the Zofran with the Endocet as this will upset your stomach. For mild to moderate pain you should rotate Tylenol and ibuprofen [id number] when you do this you can take something every 3 hours with max dose of Tylenol in 24 hours 3200 mg. You need to follow-up with Dr. Brito. Your CT did show a compression fracture of your L4 vertebrae. Return with worsening symptoms or other concerns Print Language: Chinese Disposition Disposition: Home, Self Care
--- NOTE | 2025-03-18 10:10 | CT_ITS ---
PROCEDURE: SPINE LUMBAR WITHOUT CONTRAST 03/18/2025 REASON FOR EXAM: LOW BACK PAIN, FALL Left leg pain following a recent fall. TECHNIQUE: SPINE LUMBAR WITHOUT CONTRAST Coronal and Sagittal reconstruction series were provided. One or more dose reduction techniques were used (e.g., Automated exposure control, adjustment of the mA and/or kV according to patient size, use of iterative reconstruction technique COMPARISON: None RADIATION DOSE SUMMARY: CTDlvol: 13.82 mGy DLP: 439.46 mGycm FINDINGS: Vertebrae: Loss of height of the superior endplate of the L4 vertebrae. Spondylosis. Alignment: Loss of the normal lumbar lordosis. L1-2: Mild degree of disc space narrowing. No significant stenosis seen. L2-3: Marked degree of disc space narrowing and degeneration of the disc. Anterior spondylosis more prominent on the right side. Mild right neural foraminal stenosis. L3-4: Mild degree of disc space narrowing. Diffuse posterior disc bulge. Spondylosis. Facet joint osteoarthritis. Mild bilateral neural foraminal stenosis. L4-5: There is evidence of a nondisplaced fracture along the anterior superior endplate of the L4 vertebrae. No evidence of spinal stenosis. Mild degree of diffuse posterior disc bulge as well as L5-S1: Moderate degree of disc space narrowing and disc degeneration. Facet joint osteoarthritis and hypertrophy. No significant stenosis seen. Sacrum: Unremarkable CT/Spine Lumbar without Contrast IMPRESSION: LUMBAR DEGENERATIVE DISC AND FACET DISEASE. Nondisplaced compression fracture along the anterior superior endplate of the L 4 vertebrae. Reading Location: [place] [id number]
--- NOTE | 2025-03-18 10:20 | RAD_ITS ---
PROCEDURE: FEMUR MIN 2 VIEWS 03/18/2025 REASON FOR EXAM: FALL TECHNIQUE: FEMUR MIN 2 VIEWS COMPARISON: None FINDINGS: Bones: No fracture or dislocation. Joints: Moderate degree of joint space narrowing of the left hip joint. No fracture or dislocation. Soft tissues: Soft tissues are unremarkable. Other: RAD/Femur Min 2 Views IMPRESSION: NO ACUTE FRACTURE OR DISLOCATION. Reading Location: [facility]
[2025-03-18 13:04] VITALS: BP 102/66; PULSE 74; RESP 18; TEMP 37.1; O2SAT 98
== END 2025-03-18 13:06 | disposition home or self-care (01) ==
PROVIDERS: Emergency Provider Emergency Medicine; PCP Internal Medicine; Visit Provider Emergency Medicine
DX: S32.049A Unspecified fracture of fourth lumbar vertebra, initial encounter for closed fracture (principal); W01.0XXA Fall on same level from slipping, tripping and stumbling without subsequent striking against object, initial encounter; Y92.002 Bathroom of unspecified non-institutional (private) residence as the place of occurrence of the external cause; I10 Essential (primary) hypertension; E03.9 Hypothyroidism, unspecified; F32.A Depression, unspecified; F41.9 Anxiety disorder, unspecified; K21.9 Gastro-esophageal reflux disease without esophagitis; Z79.82 Long term (current) use of aspirin; Z79.890 Hormone replacement therapy; Z79.899 Other long term (current) drug therapy
CPT/HCPCS: 72131; 72170; 73552; 99282

== ENCOUNTER 2025-03-30 13:15 | Outpatient (RCR) | payer MEDICARE, OTHER, SELFPAY ==
[2025-03-09 12:55] VITALS: BP 124/67; PULSE 78; RESP 18; TEMP 36.8
--- NOTE | 2025-03-10 08:37 | WC ---
PHOTO 03/09/25 LEFT MEDIAL LEG
--- NOTE | 2025-03-11 13:18 | HP.PCM_ITS ---
History of Present Illness Date of Service: 03/09/25 Chief Complaint: Traumatic avulsion injury of the left medial calf History of Wound: This is a 74-year-old female who sustained a traumatic injury to her left medial calf on January 01, 2025. At the time of her injury, she presented to the [facility] Emergency Department, where she was found to have an avulsion injury with a significant adherent cutaneous flap. The injury was caused by the nails of her dog, who had jumped off the couch. In the Emergency Department, the flap was sutured in place using seven 5-0 nylon sutures. The patient was placed on Keflex and Augmentin orally, and was discharged. The patient is generally healthy for her age, though has a history of njbt-xymi-vfutpoktmkcdyda, GERD, hypertension, hypothyroidism, and osteoporosis. She denies a history of diabetes mellitus, myocardial infarction, cerebrovascular accident, renal disease, and pulmonary disease. Her BMI is 19.5. She is . [facility] Medical History Non-pressure chronic ulcer of left calf with fat layer exposed Traumatic open wound of lower leg Avulsion injury GERD (gastroesophageal reflux disease) HTN (hypertension) Hypothyroidism Depression Anxiety Home Medications ?Medication ?Instructions ?Recorded ?Last Taken ?Type levothyroxine 25 mcg tablet 25 mcg PO DAILY Check with primary 02/07/15 09/29/16 09:00 History doctor Bacillus coagulans-inulin 1 1 ea PO DAILY Check with p skye 12/07/15 09/29/16 09:00 History billion cell-250 mg capsule doctor (Probiotic Formula (inulin)) gabapentin 100 mg capsule 600 mg PO BID Check with moose mcmillan 12/07/15 09/29/16 21:00 History doctor nifedipine 60 mg tablet,extended 180 mg PO DAILY Check with primary 12/07/15 09/29/16 09:00 History release 24 hr doctor pantoprazole 20 mg tablet,delayed 20 mg PO DAILY [facility] 12/07/15 09/29/16 09:00 History release paroxetine HCl 25 mg 75 mg PO DAILY depression 09/29/16 09:00 History tablet,extended release 24 hr (Paxil CR) aspirin 325 mg tablet,delayed 325 mg PO DAILY HEART 09/29/16 09:00 History release buspirone 5 mg tablet 30 mg PO BID Check with prim lesley 04/26/16 09/29/16 21:00 History doctor budesonide 3 mg 9 mg PO DAILY Check with moose mcmillan 09/30/16 Unknown History capsule,delayed,extended release doctor (Entocort EC) lorazepam 0.5 mg tablet 0.5 mg PO Q6H PRN PRN Anxiet y ##10 10/03/16 Unknown Rx dicyclomine 20 mg tablet 20 mg PO TID Check with prim lesley 09/02/22 Unknown History doctor Metamucil Check with primary doctor Unknown History food supplemt, lactose-reduced 120 ml PO 4X/DAY Check with 09/07/22 Unknown History 0.08 gram-1.5 kcal/mL oral liquid primary doctor (Ensure Enlive) loperamide 2 mg tablet 2 mg PO Q6H PRN Constipation 09/07/22 Unknown History omeprazole 40 mg PO/SL DAILY Check with 09/07/22 Unknown History primary doctor atorvastatin 80 mg tablet 20 mg (1/4 x 80 mg) PO QHS # 30 tabs 09/08/22 Unknown Rx cephalexin 500 mg capsule 500 mg PO BID #12 caps 09/08 Unknown Rx amoxicillin 875 mg-potassium 875 mg (0.875 x 875-125 m g) PO 04/29/23 Unknown Rx clavulanate 125 mg tablet Q12H #10 TABLETS Allergy/AdvReac Type Severity Reaction Status Date / Time acetaminophen (From Percocet) Allergy Other Verified 01/06/25 14:05 oxycodone (From Percocet) Allergy Other Verified 01/06/25 14:05 codeine AdvReac Nausea & Verified 01/06/25 14:05 dizziness oxycodone HCl (From Percocet) AdvReac Nausea & Verified 01/06/25 14:05 dizziness Family History Father Diabetes Dementia Surgical History S/P ORIF (open reduction internal fixation) fracture History of surgery on wrist History of cataract surgery History of ankle surgery Social History household members: none Smoking Status: Never smoker substance use type: does not use Physical Exam Const alert, oriented x3, no apparent distress and average body habitus Constitutional Narrative: The patient's BMI is 19.5. General Appearance: cooperative, comfortable, well kempt and well developed Orientation / Consciousness: awake, oriented to person, oriented to place and oriented to time Exam Limitations: no limitations HEENT normocephalic and head/scalp atraumatic Head and Scalp: normal to inspection, normocephalic and atraumatic Face and Sinus: normal facial exam Nose: external nose normal External Ear: external ears normal Eyes EOMs intact bilaterally General Eye: normal appearance of both eyes Neck full ROM Resp normal respiratory effort, normal air movement, no retractions and no use of accessory muscles Effort and Inspection: able to speak in complete sentences Extremity General Extremity: Negative for clubbing or cyanosis Skin Wound Narrative: A traumatic wound is noted on the patient's left medial calf. It is an avulsion injury, with a resultant flap of skin. At the time of the patient's original Emergency Department visit, the flap was repositioned, and sutured in place using 5-0 nylon sutures. The sutures have been removed during previous visits. A large portion of the avulsion flap, which had been repositioned and sutured in place, subsequently necrosed and was no longer viable. The current wound demonstrates a bed of generally pink, healthy granulation tissue with a small amount of bioburden. It is full-thickness in nature, extending through all layers of the dermis and into the subcutaneous tissues. Wound margins are well beveled. There is no sign of infection or cellulitis. No significant swelling or edema are noted in the left lower extremity. The wound continues to diminish in size, and dimensions are documented elsewhere. Neuro oriented x3, CN's II-XII intact bilaterally, moves all extremities, no focal motor deficits and no sensory deficits noted Sensorium / Orientation: awake, alert, oriented to person, oriented to place and oriented to time Speech: speech normal Psych Appearance: grossly normal and appropriate Attitude: calm Activity / Motor Behavior: appropriate eye contact Speech: normal speech Mood & Affect: euthymic mood Thought Process: normal thought process Thought Content: normal thought content Attention / Concentration: attention grossly intact Debridement Note Debridement Note Wound debrided: Traumatic avulsion injury of the left medial calf Laterality: Left Type of Debridement: Excisional debridement Anesthesia Used: 5% Lidocaine Gel and Cetacaine Depth: Down to and including healthy tissue and in the subcutaneous layer Percentage of wound debrided: 100 Instrument Used: 5mm curette Tissue Removed: Bioburden Severity: Fat Layer Exposed Amount of bleeding with debridement: Mild Bleeding Controlled with: Compression and gauze Patient tolerated procedure: Patient tolerated procedure well Post-Debridement Measurements and Additional Note: Post-Debridement Measurements/Treatment DANTE - Nurse 1 - General Ulcer Assessment Start: 03/09/25 12:54 Freq: Status: Active Protocol: NATHALIE Activity Type Activity Date Activity User E-sign Co-sign Detail Recorded Client Recorded Date Recorded By Document 03/09/25 12:55 RUSS [id number] 03/09/25 12:57 RUSS 03/09/25 12:55 DANTE - Today's Visit Information Type of service Follow-up Visit (Physician/ANESTHESIOLOGIST ) Arrival Mode Ambulatory,Cane Patient Identification Verified (Name & Yes ) Vital Signs Temperature (97.8 F-99.1 F) 98.3 F Temperature Source Temporal Pulse Rate (60-100) 78 Pulse Location Monitor Respiratory Rate (12-18) 18 Respiratory rate source Observation Oxygen Delivery Method Room Air Blood Pressure (90/60-120/80) 124/67 H Blood Pressure Mean 86 Source Monitor Position Semi-Fowlers Blood Pressure Location Right Arm History Since Last Visit- (Skip if this is Patient's initial visit) Have you changed medications since your No last visit? Any new allergies or adverse reactions No Had a fall/change in ADL's that may No increase risk of falls Signs or symptoms of abuse and/or No neglect since last visit Have you been in the hospital since your No last visit? Has dressing in place as prescribed Yes Has compression in place as prescribed Yes Has offloadiing in place as prescribed N/A Experienced any changes in pain level or No management Left Footwear Regular Shoe Right Footwear Regular Shoe Pain Scale: 0-10 Numeric Is Patient Pain Free? Yes - Nurse 1 - General Ulcer Measurement Start: 03/09/25 12:54 Freq: Status: Active Protocol: Activity Type Activity Date Activity User E-sign Co-sign Detail Recorded Client Recorded Date Recorded By Document 03/09/25 12:55 RUSS [id number] 03/09/25 12:57 03/09/25 12:55 Wound Center Nurse 1 #1 LT MED LE -Current Size (cm) - Length 0.9 -Current Size (cm) - Width 1.2 -Current Size (cm) - Depth 0.1 -Total Square Cm 1.08 -Date of Last Picture (Recall this 03/09/25 field) -Exudate Amt Small -Exudate Type Serosanguineous -Wound Margin Distinct, Outline Attached -Texture (Maylin-wound Skin Appearance) Assessed -Moisture (Maylin-wound Skin Appearance) Assessed -Color (Maylin-wound Skin Appearance) Assessed -Temperature (Maylin-wound Skin No Abnormality Appearance) (Pt Warm) -Tenderness on Palpation (Maylin-wound No Skin Appearance) -Ulcer Cleansing Rinsed/ Irrigated with Saline -Foul Odor after Cleansing No -Anesthetic Used 5% Lidocaine Gel WC - Nurse 2 - General Ulcer CM Notes Start: 03/09/25 12:54 Freq: Status: Active Protocol: Activity Type Activity Date Activity User E-sign Co-sign Detail Recorded Client Recorded Date Recorded By Document 03/09/25 13:03 DS [id number] 03/09/25 13:07 DS 03/09/25 13:03 Wound Center Nurse 2 -Time 13:03 -Correct Patient Yes -Correct Side, Site, Position Yes -Correct Procedure Yes -Procedure Performed Yes -Type of Procedure Debridement -Clinical Debridement Subcutaneous -Tissue Removed Subcutaneous -Post Debridement (cm) - Length 1.2 -Post Debridement (cm) - Width 1.5 -Post Debridement (cm) - Depth 0.1 -Total Square (Post) (cm) 1.80 -Area of Debridement (cm) - Length 1.2 -Area of Debridement (cm) - Width 1.5 -Total Square (Area) (cm) 1.80 -Tunneling No -Undermining/Tunneling No -Circular Undermining No -Wound/Ulcer Outcome Not Healed -Ulcer Cleansing gauze -Foul Odor after Cleansing No -Bioengineered Tissue No -Bleeding Controlled with Pressure -Treatment Response Procedure Tolerated Well -Debridement - Subq, 1st 20sq cm Yes Pain Scale: 0-10 Numeric Is Patient Pain Free? Yes DANTE - Nurse 3 - General Ulcer D/C NN Start: 03/09/25 12:54 Freq: Status: Active Protocol: Activity Type Activity Date Activity User E-sign Co-sign Detail Recorded Client Recorded Date Recorded By Document 03/09/25 13:16 [facility] [id number] 03/09/25 13:17 [facility] 03/09/25 13:16 Wound Care Center Nurse 3 #1 LT MED LE -Ulcer Cleansing Rinsed/ Irrigated with Saline -Foul Odor after Cleansing No -Primary Dressing Applied Aquacel Extra -Primary Dressing Covered/Secured with Dry Gauze & Roll Gauze, Secured with Tape -Aquacel Extra 1 LLE -Compression Wrap Zbigniew Wrap Treatment Response Procedure Tolerated Well Pain Scale: 0-10 Numeric Is Patient Pain Free? Yes WC - Visit Discharge Discharge Condition Stable Ambulatory Status Ambulatory,Cane Transportation Private Auto Charges/Coding Procedures Integumentary [id number]: [id number] Esha subq tissue 20 sq cm/< Assessment/Plan Assessment/Plan (1) Non-pressure chronic ulcer of left calf with fat layer exposed: CODE(S): L97.222 - Non-pressure chronic ulcer of left calf with fat layer exposed (2) Traumatic open wound of lower leg: CODE(S): S81.809A - Unspecified open wound, unspecified lower leg, initial encounter QUALIFIERS: Encounter type: subsequent encounter Laterality: left Qualified Code(s): S81.802D - Unspecified open wound, left lower leg, subsequent encounter (3) Avulsion injury: CODE(S): T14.8XXA - Other injury of unspecified body region, initial encounter (4) S/P ORIF (open reduction internal fixation) fracture: CODE(S): Z96.7 - Presence of other bone and tendon implants; Z87.81 - Personal history of (healed) traumatic fracture (5) S/P ORIF (open reduction internal fixation) fracture: CODE(S): Z98.890 - Other specified postprocedural states; Z87.81 - Personal history of (healed) traumatic fracture (6) History of surgery on wrist: CODE(S): Z98.890 - Other specified postprocedural states (7) History of cataract surgery: CODE(S): Z98.49 - Cataract extraction status, unspecified eye (8) History of ankle surgery: CODE(S): Z98.890 - Other specified postprocedural states (9) Hypothyroidism: CODE(S): E03.9 - Hypothyroidism, unspecified QUALIFIERS: Hypothyroidism type: acquired Qualified Code(s): E03.9 - Hypothyroidism, unspecified (10) Raynaud phenomenon: CODE(S): I73.00 - Raynaud's syndrome without gangrene QUALIFIERS: Raynaud?s-associated gangrene presence: without gangrene Qualified Code(s): I73.00 - Raynaud's syndrome without gangrene (11) Osteoporosis: CODE(S): M81.0 - Age-related osteoporosis without current pathological fracture (12) Gvwv-ewiv-mretxajicjoqlhq: 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 The injury occurred when the patient's dog traumatized her leg with its nails. Immediately following her injury, the patient presented to the [facility] Emergency Department, where the avulsion flap was repositioned and sutured in place. The central portion of the traumatic flap has necrosed, and is no longer viable. The remaining wound is full-thickness, extending down into the subcutaneous tissues. There has been recent improvement, with a decrease in the size of the patient's wound. We are to continue the use of Aquacel Extra topically, which will be moistened at the time of application. The patient has been instructed in the appropriate means of daily application. Mild compression is to be applied by means of an Zbigniew wrap, which will also be applied on a daily basis. The patient has been counseled to elevate her lower extremities as much as possible, to remain active, and to avoid prolonged, idle sitting. She is to return in 1 week for reassessment. The patient has been advised to optimize her nutritional intake, and is using Huy as a supplement. Total time: 24 minutes
[2025-03-23 13:03] VITALS: BP 119/72; PULSE 83; RESP 16; TEMP 36.3
--- NOTE | 2025-03-24 13:45 | WC ---
PHOTO 03/23/25 LEFT MED LEG
--- NOTE | 2025-03-24 13:45 | WC ---
PHOTO 03/23/25 RIGHT LATERAL LEG
--- NOTE | 2025-03-27 17:30 | PCM.WC.HP ---
History of Present Illness Date of Service: 03/23/25 Chief Complaint: Traumatic avulsion injury of the left medial calf History of Wound: This is a 74-year-old female who sustained a traumatic injury to her left medial calf on January 01, 2025. At the time of her injury, she presented to the [facility] Emergency Department, where she was found to have an avulsion injury with a significant adherent cutaneous flap. The injury was caused by the nails of her dog, who had jumped off the couch. In the Emergency Department, the flap was sutured in place using seven 5-0 nylon sutures. The patient was placed on Keflex and Augmentin orally, and was discharged. The patient is generally healthy for her age, though has a history of [id number]-wwcxcqrcrudbhyv, GERD, hypertension, hypothyroidism, and osteoporosis. She denies a history of diabetes mellitus, myocardial infarction, cerebrovascular accident, renal disease, and pulmonary disease. Her BMI is 19.5. She is . COUNTS INCLUDE 234 BEDS AT THE [facility] Medical History Non-pressure chronic ulcer of right calf with fat layer exposed Non-pressure chronic ulcer of left calf with fat layer exposed Traumatic open wound of lower leg Avulsion injury GERD (gastroesophageal reflux disease) HTN (hypertension) Hypothyroidism Depression Anxiety Home Medications ?Medication ?Instructions ?Recorded ?Last Taken ?Type levothyroxine 25 mcg tablet 25 mcg PO DAILY Check with primary 02/07/15 09/29/16 09:00 History doctor Bacillus coagulans-inulin 1 1 ea PO DAILY Check with primary 12/07/15 09/29/16 09:00 History billion cell-250 mg capsule doctor (Probiotic Formula (inulin)) gabapentin 100 mg capsule 600 mg PO BID Check with primary 12/07/15 09/29/16 21:00 History doctor nifedipine 60 mg tablet,extended 180 mg PO DAILY Check with primary 12/07/15 09/29/16 09:00 History release 24 hr doctor pantoprazole 20 mg tablet,delayed 20 mg PO DAILY STOMACHE 12/07/15 09/29/16 09:00 History release paroxetine HCl 25 mg 75 mg PO DAILY depression 12/07/15 09/29/16 09:00 History tablet,extended release 24 hr (Paxil CR) aspirin 325 mg tablet,delayed 325 mg PO DAILY HEART 04/26/16 09/29/16 09:00 History release buspirone 5 mg tablet 30 mg PO BID Check with primary 04/26/16 09/29/16 21:00 History doctor budesonide 3 mg 9 mg PO DAILY Check with primary 09/30/16 Unknown History capsule,delayed,extended release doctor (Entocort EC) lorazepam 0.5 mg tablet 0.5 mg PO Q6H PRN PRN Anxiety ##10 10/03/16 Unknown Rx dicyclomine 20 mg tablet 20 mg PO TID Check with primary 09/02/22 Unknown History doctor Metamucil Check with primary doctor 09/07/22 Unknown History food supplemt, lactose-reduced 120 ml PO 4X/DAY Check with 09/07/22 Unknown History 0.08 gram-1.5 kcal/mL oral liquid primary doctor (Ensure Enlive) loperamide 2 mg tablet 2 mg PO Q6H PRN Constipation 09/07/22 Unknown History omeprazole 40 mg PO/SL DAILY Check with 09/07/22 Unknown History primary doctor atorvastatin 80 mg tablet 20 mg (1/4 x 80 mg) PO QHS #30 tabs 09/08/22 Unknown Rx cyclobenzaprine 5 mg tablet 5 mg PO TID PRN muscle spasm #14 03/18/25 Unknown Rx tabs ondansetron 4 mg disintegrating 4 mg PO Q6H PRN nausea and 03/18/25 Unknown Rx tablet vomiting #20 tabs oxycodone-acetaminophen 5 mg-325 1 tab PO Q6H PRN pain 2 days #8 03/18/25 Unknown Rx mg tablet (Endocet) tabs Allergy/AdvReac Type Severity Reaction Status Date / Time acetaminophen (From Percocet) Allergy Other Verified 03/13/25 19:15 oxycodone (From Percocet) Allergy Other Verified 03/13/25 19:15 codeine AdvReac Nausea & Verified 03/13/25 19:15 dizziness oxycodone HCl (From Percocet) AdvReac Nausea & Verified 03/13/25 19:15 dizziness Family History Father Diabetes Dementia Surgical History S/P ORIF (open reduction internal fixation) fracture History of surgery on wrist History of cataract surgery History of ankle surgery Social History household members: none Smoking Status: Never smoker substance use type: does not use Physical Exam Const alert, oriented x3, no apparent distress and average body habitus Constitutional Narrative: The patient's BMI is 19.5. General Appearance: cooperative, comfortable, well kempt and well developed Orientation / Consciousness: awake, oriented to person, oriented to place and oriented to time Exam Limitations: no limitations HEENT normocephalic and head/scalp atraumatic Head and Scalp: normal to inspection, normocephalic and atraumatic Face and Sinus: normal facial exam Nose: external nose normal External Ear: external ears normal Eyes EOMs intact bilaterally General Eye: normal appearance of both eyes Neck full ROM Resp normal respiratory effort, normal air movement, no retractions and no use of accessory muscles Effort and Inspection: able to speak in complete sentences Extremity General Extremity: Negative for clubbing or cyanosis Skin Wound Narrative: The traumatic wound on the patient's left medial calf now appears to be completely healed and epithelialized. However, the patient sustained a wound on her right lateral calf as result of an injury caused by her dog. She was seen and evaluated in the [facility] Emergency Department on March 13, 2025, at which time she was found to have a triangular-shaped laceration/avulsion injury on her right calf. Seven 4-0 Ethilon sutures were used to reapproximate the avulsion flap. The patient was placed on cephalexin and Augmentin orally. The sutures which were placed in the Emergency Department were removed yesterday, March 22, 2025, at the [facility] in [place]. As of this visit, the wound appears well approximated, though somewhat dark and dusky, which may be due to hematoma, but also may be due to tissue ischemia. There is no sign of infection or cellulitis. No significant swelling or edema are noted in the lower extremities. Neuro oriented x3, CN's II-XII intact bilaterally, moves all extremities, no focal motor deficits and no sensory deficits noted Sensorium / Orientation: awake, alert, oriented to person, oriented to place and oriented to time Speech: speech normal Psych Appearance: grossly normal and appropriate Attitude: calm Activity / Motor Behavior: appropriate eye contact Speech: normal speech Mood & Affect: euthymic mood Thought Process: normal thought process Thought Content: normal thought content Attention / Concentration: attention grossly intact Debridement Note Debridement Note No debridement was completed: No debridement was completed today Post-Debridement Measurements and Additional Note: Post-Debridement Measurements/Treatment - Nurse 1 - General Ulcer Assessment Start: 03/09/25 12:54 Freq: Status: Active Protocol: NATHALIE Activity Type Activity Date Activity User E-sign Co-sign Detail Recorded Client Recorded Date Recorded By Document 03/09/25 12:55 KW [id number] 03/09/25 12:57 KW Document 03/23/25 13:03 [facility] [id number] 03/23/25 13:13 BM 03/09/25 03/23/25 12:55 13:03 - Today's Visit Information Type of service Follow-up Visit Follow-up Visit (Physician/FARM MANAGEMENT PROFESSOR (Physician/FARM MANAGEMENT PROFESSOR ) ) Arrival Mode Ambulatory,Cane Ambulatory Transfer Assistance None Patient Identification Verified (Name & Yes Yes ) Patient Requires Transmission-Based No Precautions Vital Signs Temperature (97.8 F-99.1 F) 98.3 F 97.4 F L Temperature Source Temporal Temporal Pulse Rate (60-100) 78 83 Pulse Location Monitor Monitor Respiratory Rate (12-18) 18 16 Respiratory rate source Observation Observation Oxygen Delivery Method Room Air Room Air Blood Pressure (90/60-120/80) 124/67 H 119/72 Blood Pressure Mean 86 87 Source Monitor Monitor Position Semi-Fowlers Sitting Blood Pressure Location Right Arm History Since Last Visit- (Skip if this is Patient's initial visit) Have you changed medications since your No No last visit? Any new allergies or adverse reactions No No Had a fall/change in ADL's that may No No increase risk of falls Signs or symptoms of abuse and/or No No neglect since last visit Have you been in the hospital since your No No last visit? Has dressing in place as prescribed Yes Yes Has compression in place as prescribed Yes Yes Has offloadiing in place as prescribed N/A N/A Experienced any changes in pain level or No No management Left Footwear Regular Shoe Regular Shoe Right Footwear Regular Shoe Regular Shoe Pain Scale: 0-10 Numeric Is Patient Pain Free? Yes Yes - Nurse 1 - General Ulcer Measurement Start: 03/09/25 12:54 Freq: Status: Active Protocol: Activity Type Activity Date Activity User E-sign Co-sign Detail Recorded Client Recorded Date Recorded By Document 03/09/25 12:55 KW [id number] 03/09/25 12:57 KW Document 03/23/25 13:03 [facility] [id number] 03/23/25 13:13 [facility] 03/09/25 03/23/25 12:55 13:03 Wound Center Nurse 1 #2- R LAT LEG- DOG SCRATCH -Combined with other wound No -Current Size (cm) - Length 1 -Current Size (cm) - Width 0.2 -Current Size (cm) - Depth 0.1 -Total Square Cm 0.2 -Date of Last Picture (Recall this 03/23/25 field) -Photo Taken Yes -Tunneling No -Undermining/Tunneling No -Circular Undermining No -Exudate Amt Medium -Exudate Type Serosanguineous -Wound Margin Distinct, Outline Attached -Granulation Amt Medium (34-66%) -Granulation Quality Red -Slough/Fibrin Yes -Necrosis Amt Medium (34-66%) -Necrotic Tissue Type Adherent Slough -Texture (Maylin-wound Skin Appearance) Assessed, Scarring -Moisture (Maylin-wound Skin Appearance) Assessed,Dry/ Scaly -Color (Maylin-wound Skin Appearance) Assessed -Temperature (Maylin-wound Skin No Abnormality Appearance) (Pt Warm) -Tenderness on Palpation (Maylin-wound No Skin Appearance) -Ulcer Cleansing Soap and Water -Foul Odor after Cleansing No -Anesthetic Used 5% Lidocaine Gel #1 LT MED LE -Combined with other wound No -Current Size (cm) - Length 0.9 0.1 -Current Size (cm) - Width 1.2 0.1 -Current Size (cm) - Depth 0.1 0.1 -Total Square Cm 1.08 0.01 -Date of Last Picture (Recall this 03/09/25 03/23/25 field) -Photo Taken Yes -Epithelialization Large 67-100% -Exudate Amt Small -Exudate Type Serosanguineous -Wound Margin Distinct, Outline Attached -Texture (Maylin-wound Skin Appearance) Assessed Assessed -Moisture (Maylin-wound Skin Appearance) Assessed Assessed -Color (Maylin-wound Skin Appearance) Assessed Assessed -Temperature (Maylin-wound Skin No Abnormality No Abnormality Appearance) (Pt Warm) (Pt Warm) -Tenderness on Palpation (Amylin-wound No No Skin Appearance) -Ulcer Cleansing Rinsed/ Soap and Water Irrigated with Saline -Foul Odor after Cleansing No No -Anesthetic Used 5% Lidocaine Gel WC - Nurse 2 - General Ulcer CM Notes Start: 03/09/25 12:54 Freq: Status: Active Protocol: Activity Type Activity Date Activity User E-sign Co-sign Detail Recorded Client Recorded Date Recorded By Document 03/09/25 13:03 DS [id number] 03/09/25 13:07 DS Document 03/23/25 13:26 DS [id number] 03/23/25 13:29 DS 03/09/25 03/23/25 13:03 13:26 Wound Center Nurse 2 #2- R LAT LEG- DOG SCRATCH -Time 13:27 -Correct Patient Yes -Correct Side, Site, Position Yes -Procedure Performed No -Post Debridement (cm) - Length 0.1 -Post Debridement (cm) - Width 0.1 -Post Debridement (cm) - Depth 0.1 -Total Square (Post) (cm) 0.01 -Area of Debridement (cm) - Length 0.1 -Area of Debridement (cm) - Width 0.1 -Total Square (Area) (cm) 0.01 -Tunneling No -Undermining/Tunneling No -Circular Undermining No -Wound/Ulcer Outcome Not Healed #1 LT MED LE -Time 13:03 13:27 -Correct Patient Yes Yes -Correct Side, Site, Position Yes Yes -Correct Procedure Yes -Procedure Performed Yes No -Type of Procedure Debridement -Clinical Debridement Subcutaneous -Tissue Removed Subcutaneous -Post Debridement (cm) - Length 1.2 0.1 -Post Debridement (cm) - Width 1.5 0.1 -Post Debridement (cm) - Depth 0.1 0.1 -Total Square (Post) (cm) 1.80 0.01 -Area of Debridement (cm) - Length 1.2 0.1 -Area of Debridement (cm) - Width 1.5 0.1 -Total Square (Area) (cm) 1.80 0.01 -Tunneling No No -Undermining/Tunneling No No -Circular Undermining No No -Wound/Ulcer Outcome Not Healed Not Healed -Ulcer Cleansing gauze -Foul Odor after Cleansing No -Bioengineered Tissue No -Bleeding Controlled with Pressure -Treatment Response Procedure Tolerated Well -Debridement - Subq, 1st 20sq cm Yes Pain Scale: 0-10 Numeric Is Patient Pain Free? Yes Yes - Nurse 3 - General Ulcer D/C NN Start: 03/09/25 12:54 Freq: Status: Active Protocol: Activity Type Activity Date Activity User E-sign Co-sign Detail Recorded Client Recorded Date Recorded By Document 03/09/25 13:16 [facility] [id number] 03/09/25 13:17 [facility] Document 03/23/25 13:35 [id number] 03/23/25 13:35 03/09/25 03/23/25 13:16 13:35 Wound Care Center Nurse 3 #2- R LAT LEG- DOG SCRATCH -Primary Dressing Applied NonAdherent Contact Layer -Primary Dressing Covered/Secured with Dry Gauze & Roll Gauze, Secured with Tape #1 LT MED LE -Ulcer Cleansing Rinsed/ Irrigated with Saline -Foul Odor after Cleansing No -Primary Dressing Applied Aquacel Extra NonAdherent Contact Layer -Primary Dressing Covered/Secured with Dry Gauze & Dry Gauze & Roll Gauze, Roll Gauze, Secured with Secured with Tape Tape -Aquacel Extra 1 LLE -Compression Wrap Zbigniew Wrap Zbigniew Wrap -Other 2 4in wraps used Treatment Response Procedure Tolerated Well Pain Scale: 0-10 Numeric Is Patient Pain Free? Yes Yes - Visit Discharge Discharge Condition Stable Stable Ambulatory Status Ambulatory,Cane Ambulatory,Cane Transportation Private Auto Private Auto Medication Reconcilliation completed & No provided to patient/care provider Clinical Summary of Care Provided Yes Charges/Coding Visit Charges Office Visits / Consults: 41477 OV L3 Est 20min Assessment/Plan Assessment/Plan (1) Non-pressure chronic ulcer of right calf with fat layer exposed: CODE(S): L97.212 - Non-pressure chronic ulcer of right calf with fat layer exposed (2) Non-pressure chronic ulcer of left calf with fat layer exposed: CODE(S): L97.222 - Non-pressure chronic ulcer of left calf with fat layer exposed (3) Traumatic open wound of lower leg: CODE(S): S81.809A - Unspecified open wound, unspecified lower leg, initial encounter QUALIFIERS: Encounter type: subsequent encounter Laterality: left Qualified Code(s): S81.802D - Unspecified open wound, left lower leg, subsequent encounter (4) Avulsion injury: CODE(S): T14.8XXA - Other injury of unspecified body region, initial encounter (5) S/P ORIF (open reduction internal fixation) fracture: CODE(S): Z96.7 - Presence of other bone and tendon implants; Z87.81 - Personal history of (healed) traumatic fracture (6) S/P ORIF (open reduction internal fixation) fracture: CODE(S): Z98.890 - Other specified postprocedural states; Z87.81 - Personal history of (healed) traumatic fracture (7) History of surgery on wrist: CODE(S): Z98.890 - Other specified postprocedural states (8) History of cataract surgery: CODE(S): Z98.49 - Cataract extraction status, unspecified eye (9) History of ankle surgery: CODE(S): Z98.890 - Other specified postprocedural states (10) Hypothyroidism: CODE(S): E03.9 - Hypothyroidism, unspecified QUALIFIERS: Hypothyroidism type: acquired Qualified Code(s): E03.9 - Hypothyroidism, unspecified (11) Raynaud phenomenon: CODE(S): I73.00 - Raynaud's syndrome without gangrene QUALIFIERS: Raynaud?s-associated gangrene presence: without gangrene Qualified Code(s): I73.00 - Raynaud's syndrome without gangrene (12) Osteoporosis: CODE(S): M81.0 - Age-related osteoporosis without current pathological fracture (13) Amoj-bntc-cflmxeijsgdsmpq: 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 The injury occurred when the patient's dog traumatized her leg with its nails. Due to management at the [facility], the wound on the left calf appears to be completely healed and epithelialized. However, the patient has now sustained a wound on her right lateral calf as result of an injury caused by her dog. She was seen and evaluated in the [facility] Emergency Department on March 13, 2025, at which time she was found to have a triangular-shaped laceration/avulsion injury on her right calf. Seven 4-0 Ethilon sutures were used to reapproximate the avulsion flap. The patient was placed on cephalexin and Augmentin orally. The sutures, which were placed in the Emergency Department, were removed yesterday, March 22, 2025, at the [facility] in [place]. As of this visit, the evulsion flap appears well approximated, though somewhat dark and dusky, which may be due to hematoma, but also may be due to tissue ischemia. Therefore, serial monitoring of this site appears to be warranted. The patient has been instructed to apply Adaptic and gauze to this right lower extremity wound on a daily basis, so as to pad and protect the area. Her leg is to be wrapped with an Zbigniew wrap daily as well. The patient is to return in 1 week for reevaluation. There is question as to whether the reapproximated traumatic flap will remain viable, which will be evaluated during the patient's subsequent visits. The patient has been counseled to elevate her lower extremities as much as possible, to remain active, and to avoid prolonged, idle sitting. She has been advised to optimize her nutritional intake, and is using Huy as a supplement. Total time: 26 minutes
[2025-03-30 13:13] VITALS: BP 112/61; PULSE 91; RESP 14; TEMP 36.5
--- NOTE | 2025-03-31 10:18 | WC ---
PHOTO - LEFT MED LEG 03-30-25
--- NOTE | 2025-03-31 10:19 | WC ---
PHOTO - RIGHT MED LEG 03-30-25
--- NOTE | 2025-04-01 11:35 | PCM.WC.HP ---
History of Present Illness Date of Service: 03/30/25 Chief Complaint: Traumatic avulsion injury of the left medial calf History of Wound: This is a 74-year-old female who sustained a traumatic injury to her left medial calf on January 01, 2025. At the time of her injury, she presented to the [facility] Emergency Department, where she was found to have an avulsion injury with a significant adherent cutaneous flap. The injury was caused by the nails of her dog, who had jumped off the couch. In the Emergency Department, the flap was sutured in place using seven 5-0 nylon sutures. The patient was placed on Keflex and Augmentin orally, and was discharged. The patient is generally healthy for her age, though has a history of rzli-rpdd-sywemfckqktqtpm, GERD, hypertension, hypothyroidism, and osteoporosis. She denies a history of diabetes mellitus, myocardial infarction, cerebrovascular accident, renal disease, and pulmonary disease. Her BMI is 19.5. She is . [facility] Medical History Non-pressure chronic ulcer of right calf with fat layer exposed Non-pressure chronic ulcer of left calf with fat layer exposed Traumatic open wound of lower leg Avulsion injury GERD (gastroesophageal reflux disease) HTN (hypertension) Hypothyroidism Depression Anxiety Home Medications ?Medication ?Instructions ?Recorded ?Last Taken ?Type levothyroxine 25 mcg tablet 25 mcg PO DAILY Check with primary 02/07/15 09/29/16 09:00 History doctor Bacillus coagulans-inulin 1 1 ea PO DAILY Check with primary 12/07/15 09/29/16 09:00 History billion cell-250 mg capsule doctor (Probiotic Formula (inulin)) gabapentin 100 mg capsule 600 mg PO BID Check with primary 12/07/15 09/29/16 21:00 History doctor nifedipine 60 mg tablet,extended 180 mg PO DAILY Check with primary 12/07/15 09/29/16 09:00 History release 24 hr doctor pantoprazole 20 mg tablet,delayed 20 mg PO DAILY STOMACHE 12/07/15 09/29/16 09:00 History release paroxetine HCl 25 mg 75 mg PO DAILY depression 12/07/15 09/29/16 09:00 History tablet,extended release 24 hr (Paxil CR) aspirin 325 mg tablet,delayed 325 mg PO DAILY HEART 04/26/16 09/29/16 09:00 History release buspirone 5 mg tablet 30 mg PO BID Check with primary 04/26/16 09/29/16 21:00 History doctor budesonide 3 mg 9 mg PO DAILY Check with primary 09/30/16 Unknown History capsule,delayed,extended release doctor (Entocort EC) lorazepam 0.5 mg tablet 0.5 mg PO Q6H PRN PRN Anxiety ##10 10/03/16 Unknown Rx dicyclomine 20 mg tablet 20 mg PO TID Check with primary 09/02/22 Unknown History doctor Metamucil Check with primary doctor 09/07/22 Unknown History food supplemt, lactose-reduced 120 ml PO 4X/DAY Check with 09/07/22 Unknown History 0.08 gram-1.5 kcal/mL oral liquid primary doctor (Ensure Enlive) loperamide 2 mg tablet 2 mg PO Q6H PRN Constipation 09/07/22 Unknown History omeprazole 40 mg PO/SL DAILY Check with 09/07/22 Unknown History primary doctor atorvastatin 80 mg tablet 20 mg (1/4 x 80 mg) PO QHS #30 tabs 09/08/22 Unknown Rx cyclobenzaprine 5 mg tablet 5 mg PO TID PRN muscle spasm #14 03/18/25 Unknown Rx tabs ondansetron 4 mg disintegrating 4 mg PO Q6H PRN nausea and 03/18/25 Unknown Rx tablet vomiting #20 tabs oxycodone-acetaminophen 5 mg-325 1 tab PO Q6H PRN pain 2 days #8 03/18/25 Unknown Rx mg tablet (Endocet) tabs Allergy/AdvReac Type Severity Reaction Status Date / Time acetaminophen (From Percocet) Allergy Other Verified 03/13/25 19:15 oxycodone (From Percocet) Allergy Other Verified 03/13/25 19:15 codeine AdvReac Nausea & Verified 03/13/25 19:15 dizziness oxycodone HCl (From Percocet) AdvReac Nausea & Verified 03/13/25 19:15 dizziness Family History Father Diabetes Dementia Surgical History S/P ORIF (open reduction internal fixation) fracture History of surgery on wrist History of cataract surgery History of ankle surgery Social History household members: none Smoking Status: Never smoker substance use type: does not use Physical Exam Const alert, oriented x3, no apparent distress, average body habitus and no limitations Constitutional Narrative: The patient's BMI is 19.5. General Appearance: cooperative, comfortable, well kempt and well developed Orientation / Consciousness: awake, oriented to person, oriented to place and oriented to time Exam Limitations: no limitations HEENT normocephalic and head/scalp atraumatic Head and Scalp: normal to inspection, normocephalic and atraumatic Face and Sinus: normal facial exam Nose: external nose normal External Ear: external ears normal Eyes EOMs intact bilaterally General Eye: normal appearance of both eyes Neck full ROM Resp normal respiratory effort, normal air movement, no retractions and no use of accessory muscles Effort and Inspection: able to speak in complete sentences Extremity General Extremity: Negative for clubbing or cyanosis Skin Wound Narrative: The traumatic wound on the patient's left medial calf remains completely healed and epithelialized. However, the patient sustained a wound on her right calf as result of an injury caused by her dog. She was seen and evaluated in the [facility] Emergency Department on March 13, 2025, at which time she was found to have a triangular-shaped laceration/avulsion injury on her right calf. Seven 4-0 Ethilon sutures were used to reapproximate the avulsion flap. The patient was placed on cephalexin and Augmentin orally. The sutures, which were placed in the Emergency Department, were removed on March 22, 2025, at the [facility] in [place]. Since that time, the traumatic flap has largely necrosed due to ischemia. An open wound persists at the site, which appears to be full-thickness in nature. It extends through all layers of the dermis and into the subcutaneous tissues. Wound margins are well beveled. There is a small amount of slough and bioburden. [place] healthy granulation tissue is also noted. Dimensions are documented elsewhere. There is no sign of infection or cellulitis. No significant swelling or edema are noted in the lower extremities. Neuro oriented x3, CN's II-XII intact bilaterally, moves all extremities, no focal motor deficits and no sensory deficits noted Sensorium / Orientation: awake, alert, oriented to person, oriented to place and oriented to time Speech: speech normal Psych Appearance: grossly normal and appropriate Attitude: calm Activity / Motor Behavior: appropriate eye contact Speech: normal speech Mood & Affect: euthymic mood Thought Process: normal thought process Thought Content: normal thought content Attention / Concentration: attention grossly intact Debridement Note Debridement Note Wound debrided: Right calf wound Laterality: Right Type of Debridement: Excisional debridement Anesthesia Used: 5% Lidocaine Gel Depth: Down to and including healthy tissue and in the subcutaneous layer Percentage of wound debrided: 100 Instrument Used: 5mm curette Tissue Removed: Slough and bioburden Severity: Fat Layer Exposed Amount of bleeding with debridement: Mild Bleeding Controlled with: Compression and gauze Patient tolerated procedure: Patient tolerated procedure well Post-Debridement Measurements and Additional Note: Post-Debridement Measurements/Treatment - Nurse 1 - General Ulcer Assessment Start: 03/09/25 12:54 Freq: Status: Active Protocol: NATHALIE Activity Type Activity Date Activity User E-sign Co-sign Detail Recorded Client Recorded Date Recorded By Document 03/09/25 12:55 KW [id number] 03/09/25 12:57 KW Document 03/23/25 13:03 BM [id number] 03/23/25 13:13 BM Document 03/30/25 13:13 ML [id number] 03/30/25 13:22 ML 03/09/25 03/23/25 03/30/25 12:55 13:03 13:13 - Today's Visit Information Type of service Follow-up Visit Follow-up Visit Follow-up Visit (Physician/PREVENTION COORDINATOR (Physician/PREVENTION COORDINATOR (Physician/PREVENTION COORDINATOR ) ) ) Arrival Mode Ambulatory,Cane Ambulatory Ambulatory Transfer Assistance None None Patient Identification Verified (Name & Yes Yes Yes ) Patient Requires Transmission-Based No No Precautions Vital Signs Temperature (97.8 F-99.1 F) 98.3 F 97.4 F L 97.7 F L Temperature Source Temporal Temporal Temporal Pulse Rate (60-100) 78 83 91 Pulse Location Monitor Monitor Monitor Respiratory Rate (12-18) 18 16 14 Respiratory rate source Observation Observation Observation Oxygen Delivery Method Room Air Room Air Blood Pressure (90/60-120/80) 124/67 H 119/72 112/61 Blood Pressure Mean 86 87 78 Source Monitor Monitor Monitor Position Semi-Fowlers Sitting Sitting Blood Pressure Location Right Arm Right Arm History Since Last Visit- (Skip if this is Patient's initial visit) Have you changed medications since your No No No last visit? Any new allergies or adverse reactions No No No Had a fall/change in ADL's that may No No No increase risk of falls Signs or symptoms of abuse and/or No No No neglect since last visit Have you been in the hospital since your No No No last visit? Has dressing in place as prescribed Yes Yes Yes Has compression in place as prescribed Yes Yes Yes Has offloadiing in place as prescribed N/A N/A No Experienced any changes in pain level or No No No management Left Footwear Regular Shoe Regular Shoe Right Footwear Regular Shoe Regular Shoe Pain Scale: 0-10 Numeric Is Patient Pain Free? Yes Yes Yes WC - Nurse 1 - General Ulcer Measurement Start: 03/09/25 12:54 Freq: Status: Active Protocol: Activity Type Activity Date Activity User E-sign Co-sign Detail Recorded Client Recorded Date Recorded By Document 03/09/25 12:55 KW [id number] 03/09/25 12:57 KW Document 03/23/25 13:03 BM [id number] 03/23/25 13:13 BM Document 03/30/25 13:13 ML [id number] 03/30/25 13:22 ML 03/09/25 03/23/25 03/30/25 12:55 13:03 13:13 Wound Center Nurse 1 #2- R LAT LEG- DOG SCRATCH -Combined with other wound No -Current Size (cm) - Length 1 1.8 -Current Size (cm) - Width 0.2 1.8 -Current Size (cm) - Depth 0.1 0.1 -Total Square Cm 0.2 3.24 -Date of Last Picture (Recall this 03/23/25 field) -Photo Taken Yes -Tunneling No -Undermining/Tunneling No -Circular Undermining No -Exudate Amt Medium Small -Exudate Type Serosanguineous Serosanguineous -Wound Margin Distinct, Distinct, Outline Outline Attached Attached -Granulation Amt Medium (34-66%) Small (1-33%) -Granulation Quality Red -Slough/Fibrin Yes Yes -Necrosis Amt Medium (34-66%) Small (1-33%) -Necrotic Tissue Type Adherent Slough Adherent Slough -Texture (Maylin-wound Skin Appearance) Assessed, Assessed Scarring -Moisture (Maylin-wound Skin Appearance) Assessed,Dry/ Assessed Scaly -Color (Maylin-wound Skin Appearance) Assessed Assessed -Temperature (Maylin-wound Skin No Abnormality No Abnormality Appearance) (Pt Warm) (Pt Warm) -Tenderness on Palpation (Maylin-wound No No Skin Appearance) -Ulcer Cleansing Soap and Water Rinsed/ Irrigated with Saline -Foul Odor after Cleansing No No -Anesthetic Used 5% Lidocaine 5% Lidocaine Gel Gel #1 LT MED LE -Combined with other wound No -Current Size (cm) - Length 0.9 0.1 0.1 -Current Size (cm) - Width 1.2 0.1 0.1 -Current Size (cm) - Depth 0.1 0.1 0.1 -Total Square Cm 1.08 0.01 0.01 -Date of Last Picture (Recall this 03/09/25 03/23/25 field) -Photo Taken Yes -Epithelialization Large 67-100% -Exudate Amt Small -Exudate Type Serosanguineous -Wound Margin Distinct, Outline Attached -Granulation Amt None Present (0 %) -Necrosis Amt None Present (0 %) -Texture (Maylin-wound Skin Appearance) Assessed Assessed Assessed -Moisture (Maylin-wound Skin Appearance) Assessed Assessed -Color (Maylin-wound Skin Appearance) Assessed Assessed Assessed -Temperature (Maylin-wound Skin No Abnormality No Abnormality No Abnormality Appearance) (Pt Warm) (Pt Warm) (Pt Warm) -Tenderness on Palpation (Maylin-wound No No No Skin Appearance) -Ulcer Cleansing Rinsed/ Soap and Water Rinsed/ Irrigated with Irrigated with Saline Saline -Foul Odor after Cleansing No No -Anesthetic Used 5% Lidocaine 5% Lidocaine Gel Gel WC - Nurse 2 - General Ulcer CM Notes Start: 03/09/25 12:54 Freq: Status: Active Protocol: Activity Type Activity Date Activity User E-sign Co-sign Detail Recorded Client Recorded Date Recorded By Document 03/09/25 13:03 DS [id number] 03/09/25 13:07 DS Document 03/23/25 13:26 DS [id number] 03/23/25 13:29 DS Document 03/30/25 13:34 DS [id number] 03/30/25 13:38 DS 03/09/25 03/23/25 03/30/25 13:03 13:26 13:34 Wound Center Nurse 2 #2- R LAT LEG- DOG SCRATCH -Time 13: 13:35 -Correct Patient Yes Yes -Correct Side, Site, Position Yes Yes -Correct Procedure Yes -Procedure Performed No Yes -Type of Procedure Debridement -Clinical Debridement Subcutaneous -Tissue Removed Subcutaneous -Post Debridement (cm) - Length 0.1 1.8 -Post Debridement (cm) - Width 0.1 1.8 -Post Debridement (cm) - Depth 0.1 0.1 -Total Square (Post) (cm) 0.01 3.24 -Area of Debridement (cm) - Length 0.1 1.8 -Area of Debridement (cm) - Width 0.1 1.8 -Total Square (Area) (cm) 0.01 3.24 -Tunneling No No -Undermining/Tunneling No No -Circular Undermining No No -Wound/Ulcer Outcome Not Healed Not Healed -Ulcer Cleansing gauze -Foul Odor after Cleansing No -Bioengineered Tissue No -Bleeding Controlled with Pressure -Treatment Response Procedure Tolerated Well -Debridement - Subq, 1st 20sq cm Yes #1 LT MED LE -Time 13: 13:27 13:35 -Correct Patient Yes Yes Yes -Correct Side, Site, Position Yes Yes Yes -Correct Procedure Yes -Procedure Performed Yes No No -Type of Procedure Debridement -Clinical Debridement Subcutaneous -Tissue Removed Subcutaneous -Post Debridement (cm) - Length 1.2 0.1 -Post Debridement (cm) - Width 1.5 0.1 -Post Debridement (cm) - Depth 0.1 0.1 -Total Square (Post) (cm) 1.80 0.01 -Area of Debridement (cm) - Length 1.2 0.1 -Area of Debridement (cm) - Width 1.5 0.1 -Total Square (Area) (cm) 1.80 0.01 -Tunneling No No -Undermining/Tunneling No No -Circular Undermining No No -Wound/Ulcer Outcome Not Healed Not Healed Healed- Epithelialized -Ulcer Cleansing gauze -Foul Odor after Cleansing No -Bioengineered Tissue No -Bleeding Controlled with Pressure -Treatment Response Procedure Tolerated Well -Debridement - Subq, 1st 20sq cm Yes Pain Scale: 0-10 Numeric Is Patient Pain Free? Yes Yes Yes WC - Nurse 3 - General Ulcer D/C NN Start: 03/09/25 12:54 Freq: Status: Active Protocol: Activity Type Activity Date Activity User E-sign Co-sign Detail Recorded Client Recorded Date Recorded By Document 03/09/25 13:16 BMF [id number] 03/09/25 13:17 BMF Document 03/23/25 13:35 KW [id number] 03/23/25 13:35 KW Document 03/30/25 13:46 ML [id number] 03/30/25 13:48 ML 03/09/25 03/23/25 03/30/25 13:16 13:35 13:46 Wound Care Center Nurse 3 #2- R LAT LEG- DOG SCRATCH -Ulcer Cleansing Rinsed/ Irrigated with Saline -Primary Dressing Applied NonAdherent Aquacel Extra Contact Layer -Primary Dressing Covered/Secured with Dry Gauze & Dry Gauze, Roll Gauze, Secured with Secured with Tape Tape -Aquacel Extra 1 #1 LT MED LE -Ulcer Cleansing Rinsed/ Rinsed/ Irrigated with Irrigated with Saline Saline -Foul Odor after Cleansing No -Primary Dressing Applied Aquacel Extra NonAdherent Contact Layer -Other Dressing pad and protect -Primary Dressing Covered/Secured with Dry Gauze & Dry Gauze & Dry Gauze, Roll Gauze, Roll Gauze, Secured with Secured with Secured with Tape Tape Tape -Aquacel Extra 1 LLE -Compression Wrap Zbigniew Wrap Zbigniew Wrap -Other 2 4in wraps used Treatment Response Procedure Tolerated Well Pain Scale: 0-10 Numeric Is Patient Pain Free? Yes Yes Yes - Visit Discharge Discharge Condition Stable Stable Ambulatory Status Ambulatory,Cane Ambulatory,Cane Transportation Private Auto Private Auto Medication Reconcilliation completed & No provided to patient/care provider Clinical Summary of Care Provided Yes Charges/Coding Procedures Integumentary [id number]: [id number] Esha subq tissue 20 sq cm/< Assessment/Plan Assessment/Plan (1) Non-pressure chronic ulcer of right calf with fat layer exposed: CODE(S): L97.212 - Non-pressure chronic ulcer of right calf with fat layer exposed (2) Non-pressure chronic ulcer of left calf with fat layer exposed: CODE(S): L97.222 - Non-pressure chronic ulcer of left calf with fat layer exposed (3) Traumatic open wound of lower leg: CODE(S): S81.809A - Unspecified open wound, unspecified lower leg, initial encounter QUALIFIERS: Encounter type: subsequent encounter Laterality: right Qualified Code(s): S81.801D - Unspecified open wound, right lower leg, subsequent encounter (4) S/P ORIF (open reduction internal fixation) fracture: CODE(S): Z96.7 - Presence of other bone and tendon implants; Z87.81 - Personal history of (healed) traumatic fracture (5) S/P ORIF (open reduction internal fixation) fracture: CODE(S): Z98.890 - Other specified postprocedural states; Z87.81 - Personal history of (healed) traumatic fracture (6) History of surgery on wrist: CODE(S): Z98.890 - Other specified postprocedural states (7) History of cataract surgery: CODE(S): Z98.49 - Cataract extraction status, unspecified eye (8) History of ankle surgery: CODE(S): Z98.890 - Other specified postprocedural states (9) Hypothyroidism: CODE(S): E03.9 - Hypothyroidism, unspecified QUALIFIERS: Hypothyroidism type: acquired Qualified Code(s): E03.9 - Hypothyroidism, unspecified (10) Raynaud phenomenon: CODE(S): I73.00 - Raynaud's syndrome without gangrene QUALIFIERS: Raynaud?s-associated gangrene presence: without gangrene Qualified Code(s): I73.00 - Raynaud's syndrome without gangrene (11) Osteoporosis: CODE(S): M81.0 - Age-related osteoporosis without current pathological fracture (12) Quoh-wyst-wdiamtlkndvoicd: 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 The injury occurred when the patient's dog traumatized her leg with its nails. Due to management at the [facility], the wound on the left calf has completely healed and epithelialized. However, the patient has now sustained a wound on her right calf as the result of a similar injury caused by her dog. She was seen and evaluated in the [facility] Emergency Department on March 13, 2025, at which time she was found to have a triangular-shaped laceration/avulsion injury on her right calf. Seven 4-0 Ethilon sutures were used to reapproximate the avulsion flap. The patient was placed on cephalexin and Augmentin orally. The sutures, which were placed in the Emergency Department, were removed on March 22, 2025, at the [facility] in [place]. The avulsion flap has not survived due to ischemia, and has necrosed, leaving an open, full-thickness wound at the site. We are to implement the use of moistened Aquacel Extra topically, to be applied on a daily basis. The patient has been provided product, and instructed in the appropriate means of application. With respect to the healed wound on the left lower extremity, the patient has been instructed to use dry gauze for the purpose of padding and protecting. The patient is to return in 1 week for reevaluation. The patient has been counseled to elevate her lower extremities as much as possible, to remain active, and to avoid prolonged, idle sitting. She has been advised to optimize her nutritional intake, and is using Huy as a supplement. Total time: 24 minutes
== END 2025-04-08 23:59 | disposition home or self-care (01) ==
LOC: WC 13:15
PROVIDERS: PCP Internal Medicine; Referring Provider Internal Medicine; Visit Provider Surgery
DX: L97.222 Non-pressure chronic ulcer of left calf with fat layer exposed (principal); L97.212 Non-pressure chronic ulcer of right calf with fat layer exposed; E03.9 Hypothyroidism, unspecified; M81.0 Age-related osteoporosis without current pathological fracture; I10 Essential (primary) hypertension; I73.00 Raynaud's syndrome without gangrene; E78.6 Lipoprotein deficiency; Z79.899 Other long term (current) drug therapy; Z79.890 Hormone replacement therapy; I99.8 Other disorder of circulatory system; W54.1XXS Struck by dog, sequela; S81.811S Laceration without foreign body, right lower leg, sequela
CPT/HCPCS: 11042; 99213; G0463

== ENCOUNTER 2025-05-04 13:00 | Outpatient (RCR) | payer MEDICARE, OTHER, SELFPAY ==
[2025-04-20 13:14] VITALS: BP 98/65; PULSE 96; RESP 16; TEMP 36.6
--- NOTE | 2025-04-21 17:50 | HP.PCM_ITS ---
History of Present Illness Date of Service: 04/20/25 Chief Complaint: Traumatic avulsion injury of the right medial calf History of Wound: This is a 74-year-old female who sustained a traumatic injury to her left medial calf on January 01, 2025. At the time of her injury, she presented to the [facility] Emergency [facility], where she was found to have an avulsion injury with a significant adherent cutaneous flap. The injury was caused by the nails of her dog, who had jumped off the couch. In the Emergency Department, the flap was sutured in place using seven 5-0 nylon sutures. The patient was placed on Keflex and Augmentin orally, and was discharged. The patient is generally healthy for her age, though has a history of admi-vxao-uhrazpthfmpowil, GERD, hypertension, hypothyroidism, and osteoporosis. She denies a history of diabetes mellitus, myocardial infarction, cerebrovascular accident, renal disease, and pulmonary disease. Her BMI is 19.5. She is . Since the patient's initial presentation, the traumatic injury on her left calf has healed, and she has sustained a similar injury to the right medial calf, for which she remains a patient at the [facility]. [facility] Medical History Non-pressure chronic ulcer of right calf with fat layer exposed Non-pressure chronic ulcer of left calf with fat layer exposed Traumatic open wound of lower leg Avulsion injury GERD (gastroesophageal reflux disease) HTN (hypertension) Hypothyroidism Depression Anxiety Home Medications ?Medication ?Instructions ?Recorded ?Last Taken ?Type levothyroxine 25 mcg tablet 25 mcg PO DAILY Check with primary 02/07/15 09/29/16 09:00 History doctor Bacillus coagulans-inulin 1 1 ea PO DAILY Check with jesus cheung 12/07/15 09/29/16 09:00 History billion cell-250 mg capsule doctor (Probiotic Formula (inulin)) gabapentin 100 mg capsule 600 mg PO BID Check with moose mcmillan 12/07/15 09/29/16 21:00 History doctor nifedipine 60 mg tablet,extended 180 mg PO DAILY Check with primary 12/07/15 09/29/16 09:00 History release 24 hr doctor pantoprazole 20 mg tablet,delayed 20 mg PO DAILY [facility] 12/07/15 09/29/16 09:00 History release paroxetine HCl 25 mg 75 mg PO DAILY depression 09/29/16 09:00 History tablet,extended release 24 hr (Paxil CR) aspirin 325 mg tablet,delayed 325 mg PO DAILY HEART 09/29/16 09:00 History release buspirone 5 mg tablet 30 mg PO BID Check with prim lesley 04/26/16 09/29/16 21:00 History doctor budesonide 3 mg 9 mg PO DAILY Check with moose deyanira 09/30/16 Unknown History capsule,delayed,extended release doctor (Entocort EC) lorazepam 0.5 mg tablet 0.5 mg PO Q6H PRN PRN Anxiet y ##10 10/03/16 Unknown Rx dicyclomine 20 mg tablet 20 mg PO TID Check with prim lesley 09/02/22 Unknown History doctor Metamucil Check with primary doctor Unknown History food supplemt, lactose-reduced 120 ml PO 4X/DAY Check with 09/07/22 Unknown History 0.08 gram-1.5 kcal/mL oral liquid primary doctor (Ensure Enlive) loperamide 2 mg tablet 2 mg PO Q6H PRN Constipation 09/07/22 Unknown History omeprazole 40 mg PO/SL DAILY Check with 09/07/22 Unknown History primary doctor atorvastatin 80 mg tablet 20 mg (1/4 x 80 mg) PO QHS # 30 tabs 09/08/22 Unknown Rx cyclobenzaprine 5 mg tablet 5 mg PO TID PRN muscle spa sm #14 03/18/25 Unknown Rx tabs ondansetron 4 mg disintegrating 4 mg PO Q6H PRN nausea and 03/18/25 Unknown Rx tablet vomiting #20 tabs oxycodone-acetaminophen 5 mg-325 1 tab PO Q6H PRN pain 2 days #8 03/18/25 Unknown Rx mg tablet (Endocet) tabs Allergy/AdvReac Type Severity Reaction Status Date / Time acetaminophen (From Percocet) Allergy Other Verified 03/13/25 19:15 oxycodone (From Percocet) Allergy Other Verified 03/13/25 19:15 codeine AdvReac Nausea & Verified 03/13/25 19:15 dizziness oxycodone HCl (From Percocet) AdvReac Nausea & Verified 03/13/25 19:15 dizziness Family History Father Diabetes Dementia Surgical History S/P ORIF (open reduction internal fixation) fracture History of surgery on wrist History of cataract surgery History of ankle surgery Social History household members: none Smoking Status: Never smoker substance use type: does not use Physical Exam Const alert, oriented x3, no apparent distress, average body habitus and no limitations Constitutional Narrative: The patient's BMI is 19.5. She is thin and petite. General Appearance: cooperative, comfortable, well kempt and well developed Orientation / Consciousness: awake, oriented to person, oriented to place and oriented to time Exam Limitations: no limitations HEENT normocephalic and head/scalp atraumatic Head and Scalp: normal to inspection, normocephalic and atraumatic Face and Sinus: normal facial exam Nose: external nose normal External Ear: external ears normal Eyes EOMs intact bilaterally General Eye: normal appearance of both eyes Neck full ROM Resp normal respiratory effort, normal air movement, no retractions and no use of accessory muscles Effort and Inspection: able to speak in complete sentences Extremity General Extremity: Negative for clubbing or cyanosis Skin Wound Narrative: The traumatic wound on the patient's left medial calf remains completely healed and epithelialized. However, the patient sustained a wound on her right calf as result of an injury caused by her dog. She was seen and evaluated in the [facility] Department on March 13, 2025, at which time she was found to have a triangular-shaped laceration/avulsion injury on her right calf. Seven 4-0 Ethilon sutures were used to reapproximate the avulsion flap. The patient was placed on cephalexin and Augmentin orally. The sutures, which were placed in the Emergency Department, were removed on March 22, 2025, at the [facility] in [place]. Since that time, the traumatic flap has largely necrosed due to ischemia. An open wound persists at the site, which appears to be full-thickness in nature. It extends through all layers of the dermis and into the subcutaneous tissues. Wound margins are well beveled. There is a small amount of slough and bioburden. Nimmons healthy granulation tissue is also noted. Dimensions are documented elsewhere. The wound has progressively diminished in size. There is no sign of infection or cellulitis. No significant swelling or edema are noted in the lower extremities. Neuro oriented x3, CN's II-XII intact bilaterally, moves all extremities, no focal motor deficits and no sensory deficits noted Sensorium / Orientation: awake, alert, oriented to person, oriented to place and oriented to time Speech: speech normal Psych Appearance: grossly normal and appropriate Attitude: calm Activity / Motor Behavior: appropriate eye contact Speech: normal speech Mood & Affect: euthymic mood Thought Process: normal thought process Thought Content: normal thought content Attention / Concentration: attention grossly intact Debridement Note Debridement Note Wound debrided: Right medial calf wound Laterality: Right Type of Debridement: Excisional debridement Anesthesia Used: 5% Lidocaine Gel Depth: Down to and including healthy tissue and in the subcutaneous layer Percentage of wound debrided: 100 Instrument Used: 3mm curette Tissue Removed: Slough and bioburden Severity: Fat Layer Exposed Amount of bleeding with debridement: Mild Bleeding Controlled with: Compression and gauze Patient tolerated procedure: Patient tolerated procedure well Post-Debridement Measurements and Additional Note: Post-Debridement Measurements/Treatment - Nurse 1 - General Ulcer Assessment Start: 04/20/25 13:14 Freq: Status: Active Protocol: NATHALIE Activity Type Activity Date Activity User E-sign Co-sign Detail Recorded Client Recorded Date Recorded By Document 04/20/25 13:14 [facility] [id number] 04/20/25 13:20 [facility] 04/20/25 13:14 - Today's Visit Information Type of service Follow-up Visit (Physician/COMPUTATOR ) Arrival Mode Ambulatory Transfer Assistance None Patient Identification Verified (Name & Yes ) Patient Requires Transmission-Based No Precautions Vital Signs Temperature (97.8 F-99.1 F) 98 F Temperature Source Temporal Pulse Rate (60-100) 96 Pulse Location Monitor Respiratory Rate (12-18) 16 Respiratory rate source Observation Oxygen Delivery Method Room Air Blood Pressure (90/60-120/80) 98/65 Blood Pressure Mean 76 Source Monitor Position Sitting Blood Pressure Location Right Arm History Since Last Visit- (Skip if this is Patient's initial visit) Have you changed medications since your No last visit? Any new allergies or adverse reactions No Had a fall/change in ADL's that may No increase risk of falls Signs or symptoms of abuse and/or No neglect since last visit Have you been in the hospital since your No last visit? Has dressing in place as prescribed No Has compression in place as prescribed No Has offloadiing in place as prescribed N/A Experienced any changes in pain level or No management Left Footwear Regular Shoe Right Footwear Regular Shoe Pain Scale: 0-10 Numeric Is Patient Pain Free? Yes WC - Nurse 1 - General Ulcer Measurement Start: 04/20/25 13:14 Freq: Status: Active Protocol: Activity Type Activity Date Activity User E-sign Co-sign Detail Recorded Client Recorded Date Recorded By Document 04/20/25 13:14 [facility] [id number] 04/20/25 13:20 [facility] 04/20/25 13:14 [facility] Nurse 1 #2- R LAT LEG- DOG SCRATCH -Combined with other wound No -Current Size (cm) - Length 0.1 -Current Size (cm) - Width 0.1 -Current Size (cm) - Depth 0.1 -Total Square Cm 0.01 -Date of Last Picture (Recall this 04/20/25 field) -Epithelialization Large 67-100% -Tunneling No -Undermining/Tunneling No -Circular Undermining No -Exudate Amt None Present -Wound Margin Distinct, Outline Attached -Granulation Amt None Present (0 %) -Slough/Fibrin Yes -Necrosis Amt Small (1-33%) -Necrotic Tissue Type Eschar -Texture (Maylin-wound Skin Appearance) Assessed -Moisture (Maylin-wound Skin Appearance) Assessed,Dry/ Scaly -Color (Maylin-wound Skin Appearance) Assessed -Temperature (Maylin-wound Skin No Abnormality Appearance) (Pt Warm) -Tenderness on Palpation (Maylin-wound No Skin Appearance) -Ulcer Cleansing Rinsed/ Irrigated with Saline -Foul Odor after Cleansing No -Anesthetic Used 5% Lidocaine Gel -Wound Comment(s) SMALL SCAB Lower Limb Edema Present Yes Right Calf (cm) 30.5 Right Ankle (cm) 20 Left Calf (cm) 30.5 Left Ankle (cm) 19.5 DANTE - Nurse 2 - General Ulcer CM Notes Start: 04/20/25 13:14 Freq: Status: Active Protocol: Activity Type Activity Date Activity User E-sign Co-sign Detail Recorded Client Recorded Date Recorded By Document 04/20/25 13:30 [id number] 04/20/25 13:34 04/20/25 13:30 [facility] Center Nurse 2 #2- R LAT LEG- DOG SCRATCH -Time 13:32 -Correct Patient Yes -Correct Side, Site, Position Yes -Correct Procedure Yes -Procedure Performed Yes -Type of Procedure Debridement -Clinical Debridement Subcutaneous -Tissue Removed Subcutaneous -Post Debridement (cm) - Length 0.4 -Post Debridement (cm) - Width 0.3 -Post Debridement (cm) - Depth 0.1 -Total Square (Post) (cm) 0.12 -Area of Debridement (cm) - Length 0.4 -Area of Debridement (cm) - Width 0.3 -Total Square (Area) (cm) 0.12 -Tunneling No -Undermining/Tunneling No -Circular Undermining No -Wound/Ulcer Outcome Not Healed -Ulcer Cleansing Rinsed/ Irrigated with Saline -Foul Odor after Cleansing No -Bioengineered Tissue No -Bleeding Controlled with Pressure -Treatment Response Procedure Tolerated Well -Offloading No -Debridement - Subq, 1st 20sq cm Yes Pain Scale: 0-10 Numeric Is Patient Pain Free? Yes - Nurse 3 - General Ulcer D/C NN Start: 04/20/25 13:14 Freq: Status: Active Protocol: Activity Type Activity Date Activity User E-sign Co-sign Detail Recorded Client Recorded Date Recorded By Document 04/20/25 13:39 [facility] [id number] 04/20/25 13:39 [facility] 04/20/25 13:39 [facility] Nurse 3 #2- R LAT LEG- DOG SCRATCH -Ulcer Cleansing Rinsed/ Irrigated with Saline -Foul Odor after Cleansing No -Primary Dressing Applied C Hydrogel, Silicone Border Foam 4x4 -Hydrogel 1 -Silicone Border Foam 4x4 1 Treatment Response Procedure Tolerated Well Pain Scale: 0-10 Numeric Is Patient Pain Free? Yes - Visit Discharge Discharge Condition Stable Ambulatory Status Ambulatory,Cane Transportation Private Auto Charges/Coding Procedures Integumentary [id number]: [id number] Esha subq tissue 20 sq cm/< Assessment/Plan Assessment/Plan (1) Non-pressure chronic ulcer of right calf with fat layer exposed: CODE(S): L97.212 - Non-pressure chronic ulcer of right calf with fat layer exposed (2) Traumatic open wound of lower leg: CODE(S): S81.809A - Unspecified open wound, unspecified lower leg, initial encounter QUALIFIERS: Encounter type: subsequent encounter Laterality: right Qualified Code(s): S81.801D - Unspecified open wound, right lower leg, subsequent encounter (3) S/P ORIF (open reduction internal fixation) fracture: CODE(S): Z96.7 - Presence of other bone and tendon implants; Z87.81 - Personal history of (healed) traumatic fracture (4) S/P ORIF (open reduction internal fixation) fracture: CODE(S): Z98.890 - Other specified postprocedural states; Z87.81 - Personal history of (healed) traumatic fracture (5) History of surgery on wrist: CODE(S): Z98.890 - Other specified postprocedural states (6) History of cataract surgery: CODE(S): Z98.49 - Cataract extraction status, unspecified eye (7) History of ankle surgery: CODE(S): Z98.890 - Other specified postprocedural states (8) Hypothyroidism: CODE(S): E03.9 - Hypothyroidism, unspecified QUALIFIERS: Hypothyroidism type: acquired Qualified Code(s): E03.9 - Hypothyroidism, unspecified (9) Raynaud phenomenon: CODE(S): I73.00 - Raynaud's syndrome without gangrene QUALIFIERS: Raynaud?s-associated gangrene presence: without gangrene Qualified Code(s): I73.00 - Raynaud's syndrome without gangrene (10) Osteoporosis: CODE(S): M81.0 - Age-related osteoporosis without current pathological fracture (11) Rlyt-gwqk-xsfvovkppwosmmy: 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 The injury occurred when the patient's dog traumatized her leg with its nails. Due to management at the [facility], the wound on the left calf has completely healed and epithelialized. However, the patient subsequently sustained a wound on her right calf as the result of a similar injury caused by her dog. She was seen and evaluated in the [facility] Emergency Department on March 13, 2025, at which time she was found to have a triangular- shaped laceration/avulsion injury on her right calf. Seven 4-0 Ethilon sutures were used to reapproximate the avulsion flap. The patient was placed on cephalexin and Augmentin orally. The sutures, which were placed in the Emergency Department, were removed on March 22, 2025, at the [facility] in [place]. The avulsion flap has not survived due to ischemia, and has necrosed, leaving an open, full-thickness wound at the site. The wound has decreased in size progressively. We are to implement the use of collagen hydrogel topically on a daily basis. The patient has been instructed in the appropriate means of application. The patient is to return in 2 weeks for reevaluation. The patient has been counseled to elevate her lower extremities as much as possible, to remain active, and to avoid prolonged, idle sitting. She has been advised to optimize her nutritional intake, and is using Huy as a supplement. Total time: 25 minutes
--- NOTE | 2025-04-22 09:21 | WC ---
PHOTO-RIGHT LATERAL LEG 04/20/25
[2025-05-04 13:08] VITALS: BP 93/60; PULSE 91; RESP 16; TEMP 35.8
--- NOTE | 2025-05-05 13:40 | WC ---
PHOTO-RIGHT MED LEG 05/04/25
--- NOTE | 2025-05-09 17:03 | HP.PCM_ITS ---
History of Present Illness Date of Service: 05/04/25 Chief Complaint: Traumatic avulsion injury of the right medial calf History of Wound: This is a 74-year-old female who sustained a traumatic injury to her left medial calf on January 01, 2025. At the time of her injury, she presented to the [facility] Emergency Department, where she was found to have an avulsion injury with a significant adherent cutaneous flap. The injury was caused by the nails of her dog, who had jumped off the couch. In the Emergency Department, the flap was sutured in place using seven 5-0 nylon sutures. The patient was placed on Keflex and Augmentin orally, and was discharged. The patient is generally healthy for her age, though has a history of anbj-otaz-oyypaycrihijzvf, GERD, hypertension, hypothyroidism, and osteoporosis. She denies a history of diabetes mellitus, myocardial infarction, cerebrovascular accident, renal disease, and pulmonary disease. Her BMI is 19.5. She is . Since the patient's initial presentation, the traumatic injury on her left calf has healed, and she has sustained a similar injury to the right medial calf, for which she remains a patient at the [facility]. [facility] Medical History Non-pressure chronic ulcer of right calf with fat layer exposed Non-pressure chronic ulcer of left calf with fat layer exposed Traumatic open wound of lower leg Avulsion injury GERD (gastroesophageal reflux disease) HTN (hypertension) Hypothyroidism Depression Anxiety Home Medications ?Medication ?Instructions ?Recorded ?Last Taken ?Type levothyroxine 25 mcg tablet 25 mcg PO DAILY Check with primary 02/07/15 09/29/16 09:00 History doctor Bacillus coagulans-inulin 1 1 ea PO DAILY Check with jesus cheung 12/07/15 09/29/16 09:00 History billion cell-250 mg capsule doctor (Probiotic Formula (inulin)) gabapentin 100 mg capsule 600 mg PO BID Check with moose mcmillan 12/07/15 09/29/16 21:00 History doctor nifedipine 60 mg tablet,extended 180 mg PO DAILY Check with primary 12/07/15 09/29/16 09:00 History release 24 hr doctor pantoprazole 20 mg tablet,delayed 20 mg PO DAILY [facility] 12/07/15 09/29/16 09:00 History release paroxetine HCl 25 mg 75 mg PO DAILY depression 09/29/16 09:00 History tablet,extended release 24 hr (Paxil CR) aspirin 325 mg tablet,delayed 325 mg PO DAILY HEART 09/29/16 09:00 History release buspirone 5 mg tablet 30 mg PO BID Check with prim lesley 04/26/16 09/29/16 21:00 History doctor budesonide 3 mg 9 mg PO DAILY Check with moose deyanira 09/30/16 Unknown History capsule,delayed,extended release doctor (Entocort EC) lorazepam 0.5 mg tablet 0.5 mg PO Q6H PRN PRN Anxiet y ##10 10/03/16 Unknown Rx dicyclomine 20 mg tablet 20 mg PO TID Check with prim lesley 09/02/22 Unknown History doctor Metamucil Check with primary doctor Unknown History food supplemt, lactose-reduced 120 ml PO 4X/DAY Check with 09/07/22 Unknown History 0.08 gram-1.5 kcal/mL oral liquid primary doctor (Ensure Enlive) loperamide 2 mg tablet 2 mg PO Q6H PRN Constipation 09/07/22 Unknown History omeprazole 40 mg PO/SL DAILY Check with 09/07/22 Unknown History primary doctor atorvastatin 80 mg tablet 20 mg (1/4 x 80 mg) PO QHS # 30 tabs 09/08/22 Unknown Rx cyclobenzaprine 5 mg tablet 5 mg PO TID PRN muscle spa sm #14 03/18/25 Unknown Rx tabs ondansetron 4 mg disintegrating 4 mg PO Q6H PRN nausea and 03/18/25 Unknown Rx tablet vomiting #20 tabs oxycodone-acetaminophen 5 mg-325 1 tab PO Q6H PRN pain 2 days #8 03/18/25 Unknown Rx mg tablet (Endocet) tabs Allergy/AdvReac Type Severity Reaction Status Date / Time acetaminophen (From Percocet) Allergy Other Verified 03/13/25 19:15 oxycodone (From Percocet) Allergy Other Verified 03/13/25 19:15 codeine AdvReac Nausea & Verified 03/13/25 19:15 dizziness oxycodone HCl (From Percocet) AdvReac Nausea & Verified 03/13/25 19:15 dizziness Family History Father Diabetes Dementia Surgical History S/P ORIF (open reduction internal fixation) fracture History of surgery on wrist History of cataract surgery History of ankle surgery Social History household members: none Smoking Status: Never smoker substance use type: does not use Physical Exam Const alert, oriented x3, no apparent distress, average body habitus and no limitations Constitutional Narrative: The patient's BMI is 19.5. She is thin and petite. General Appearance: cooperative, comfortable, well kempt and well developed Orientation / Consciousness: awake, oriented to person, oriented to place and oriented to time Exam Limitations: no limitations HEENT normocephalic and head/scalp atraumatic Head and Scalp: normal to inspection, normocephalic and atraumatic Face and Sinus: normal facial exam Nose: external nose normal External Ear: external ears normal Eyes EOMs intact bilaterally General Eye: normal appearance of both eyes Neck full ROM Resp normal respiratory effort, normal air movement, no retractions and no use of accessory muscles Effort and Inspection: able to speak in complete sentences Extremity General Extremity: Negative for clubbing or cyanosis Skin Wound Narrative: The traumatic wound on the patient's left medial calf remains completely healed and epithelialized. However, the patient sustained a wound on her right calf as result of an injury caused by her dog. She was seen and evaluated in the [facility] Emergency Department on March 13, 2025, at which time she was found to have a triangular-shaped laceration/avulsion injury on her right calf. Seven 4-0 Ethilon sutures were used to reapproximate the avulsion flap. The patient was placed on cephalexin and Augmentin orally. The sutures, which were placed in the Emergency Department, were removed on March 22, 2025, at the [facility] in [place]. Since that time, the traumatic flap has largely necrosed due to ischemia. An open wound persists at the site, which appears to be full-thickness in nature. It extends through all layers of the dermis and into the subcutaneous tissues. Wound margins are well beveled. There is a small amount of slough and bioburden. [place] healthy granulation tissue is also noted. Dimensions are documented elsewhere. The wound has progressively diminished in size, and is now quite small. There is no sign of infection or cellulitis. No significant swelling or edema are noted in the lower extremities. Neuro oriented x3, CN's II-XII intact bilaterally, moves all extremities, no focal motor deficits and no sensory deficits noted Sensorium / Orientation: awake, alert, oriented to person, oriented to place and oriented to time Speech: speech normal Psych Appearance: grossly normal and appropriate Attitude: calm Activity / Motor Behavior: appropriate eye contact Speech: normal speech Mood & Affect: euthymic mood Thought Process: normal thought process Thought Content: normal thought content Attention / Concentration: attention grossly intact Debridement Note Debridement Note Wound debrided: Right medial calf wound Laterality: Right Type of Debridement: Excisional debridement Anesthesia Used: 5% Lidocaine Gel Depth: Down to and including healthy tissue and in the subcutaneous layer Percentage of wound debrided: 100 Instrument Used: 3mm curette Tissue Removed: Slough and bioburden Severity: Fat Layer Exposed Amount of bleeding with debridement: Mild Bleeding Controlled with: Compression and gauze Patient tolerated procedure: Patient tolerated procedure well Post-Debridement Measurements and Additional Note: Post-Debridement Measurements/Treatment - Nurse 1 - General Ulcer Assessment Start: 04/20/25 13:14 Freq: Status: Active Protocol: NATHALIE Activity Type Activity Date Activity User E-sign Co-sign Detail Recorded Client Recorded Date Recorded By Document 04/20/25 13:14 [facility] [id number] 04/20/25 13:20 [facility] Document 05/04/25 13:08 [id number] 05/04/25 13:09 04/20/25 05/04/25 13:14 13:08 - Today's Visit Information Type of service Follow-up Visit 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 ) ) Arrival Mode Ambulatory Ambulatory,Cane Transfer Assistance None Patient Identification Verified (Name & Yes Yes ) Patient Requires Transmission-Based No Precautions Vital Signs Temperature (97.8 F-99.1 F) 98 F 96.5 F L Temperature Source Temporal Temporal Pulse Rate (60-100) 96 91 Pulse Location Monitor Monitor Respiratory Rate (12-18) 16 16 Respiratory rate source Observation Observation Oxygen Delivery Method Room Air Room Air Blood Pressure (90/60-120/80) 98/65 93/60 Blood Pressure Mean 76 71 Source Monitor Monitor Position Sitting Semi-Fowlers Blood Pressure Location Right Arm Right Arm History Since Last Visit- (Skip if this is Patient's initial visit) Have you changed medications since your No No last visit? Any new allergies or adverse reactions No No Had a fall/change in ADL's that may No No increase risk of falls Signs or symptoms of abuse and/or No No neglect since last visit Have you been in the hospital since your No No last visit? Has dressing in place as prescribed No Yes Has compression in place as prescribed No N/A Has offloadiing in place as prescribed N/A N/A Experienced any changes in pain level or No No management Left Footwear Regular Shoe Regular Shoe Right Footwear Regular Shoe Regular Shoe Pain Scale: 0-10 Numeric Is Patient Pain Free? Yes Yes WC - Nurse 1 - General Ulcer Measurement Start: 04/20/25 13:14 Freq: Status: Active Protocol: Activity Type Activity Date Activity User E-sign Co-sign Detail Recorded Client Recorded Date Recorded By Document 04/20/25 13:14 [facility] [id number] 04/20/25 13:20 [employer] Document 05/04/25 13:08 [id number] 05/04/25 13:09 KW 04/20/25 05/04/25 13:14 13:08 [facility] Center Nurse 1 #2- R LAT LEG- DOG SCRATCH -Combined with other wound No -Current Size (cm) - Length 0.1 0.1 -Current Size (cm) - Width 0.1 0.1 -Current Size (cm) - Depth 0.1 0 -Total Square Cm 0.01 0.01 -Date of Last Picture (Recall this 04/20/25 05/04/25 field) -Epithelialization Large 67-100% Large 67-100% -Tunneling No -Undermining/Tunneling No -Circular Undermining No -Exudate Amt None Present None Present -Wound Margin Distinct, Outline Attached -Granulation Amt None Present (0 None Present (0 %) %) -Slough/Fibrin Yes -Necrosis Amt Small (1-33%) -Necrotic Tissue Type Eschar -Texture (Maylin-wound Skin Appearance) Assessed Assessed -Moisture (Maylin-wound Skin Appearance) Assessed,Dry/ Assessed Scaly -Color (Maylin-wound Skin Appearance) Assessed Assessed -Temperature (Maylin-wound Skin No Abnormality No Abnormality Appearance) (Pt Warm) (Pt Warm) -Tenderness on Palpation (Maylin-wound No No Skin Appearance) -Ulcer Cleansing Rinsed/ Rinsed/ Irrigated with Irrigated with Saline Saline -Foul Odor after Cleansing No No -Anesthetic Used 5% Lidocaine 5% Lidocaine Gel Gel -Wound Comment(s) SMALL SCAB Lower Limb Edema Present Yes Right Calf (cm) 30.5 Right Ankle (cm) 20 Left Calf (cm) 30.5 Left Ankle (cm) 19.5 WC - Nurse 2 - General Ulcer CM Notes Start: 04/20/25 13:14 Freq: Status: Active Protocol: Activity Type Activity Date Activity User E-sign Co-sign Detail Recorded Client Recorded Date Recorded By Document 04/20/25 13:30 JF [id number] 04/20/25 13:34 JF Document 05/04/25 13:23 DS [id number] 05/04/25 13:25 DS 04/20/25 05/04/25 13:30 13:23 Wound Center Nurse 2 #2- R LAT LEG- DOG SCRATCH -Time 13:32 13:23 -Correct Patient Yes Yes -Correct Side, Site, Position Yes Yes -Correct Procedure Yes Yes -Procedure Performed Yes Yes -Type of Procedure Debridement Debridement -Clinical Debridement Subcutaneous Subcutaneous -Tissue Removed Subcutaneous Subcutaneous -Post Debridement (cm) - Length 0.4 0.4 -Post Debridement (cm) - Width 0.3 0.2 -Post Debridement (cm) - Depth 0.1 0.1 -Total Square (Post) (cm) 0.12 0.08 -Area of Debridement (cm) - Length 0.4 0.4 -Area of Debridement (cm) - Width 0.3 0.2 -Total Square (Area) (cm) 0.12 0.08 -Tunneling No No -Undermining/Tunneling No -Circular Undermining No No -Wound/Ulcer Outcome Not Healed Not Healed -Ulcer Cleansing Rinsed/ gauze Irrigated with Saline -Foul Odor after Cleansing No No -Bioengineered Tissue No No -Bleeding Controlled with Pressure Pressure -Treatment Response Procedure Procedure Tolerated Well Tolerated Well -Offloading No -Debridement - Subq, 1st 20sq cm Yes Yes Pain Scale: 0-10 Numeric Is Patient Pain Free? Yes Yes - Nurse 3 - General Ulcer D/C NN Start: 04/20/25 13:14 Freq: Status: Active Protocol: Activity Type Activity Date Activity User E-sign Co-sign Detail Recorded Client Recorded Date Recorded By Document 04/20/25 13:39 BM [id number] 04/20/25 13:39 BM Document 05/04/25 13:36 ML [id number] 05/04/25 13:37 ML 04/20/25 05/04/25 13:39 13:36 Wound Care Center Nurse 3 #2- R LAT LEG- DOG SCRATCH -Ulcer Cleansing Rinsed/ Rinsed/ Irrigated with Irrigated with Saline Saline -Foul Odor after Cleansing No -Primary Dressing Applied C Hydrogel, C Hydrogel, Silicone Border Silicone Border Foam 4x4 Foam AG 3.6x4 -Hydrogel 1 0 -Silicone Border Foam AG 3.6x4 1 -Silicone Border Foam 4x4 1 Treatment Response Procedure Tolerated Well Pain Scale: 0-10 Numeric Is Patient Pain Free? Yes Yes WC - Visit Discharge Discharge Condition Stable Ambulatory Status Ambulatory,Cane Transportation Private Auto Charges/Coding Procedures Integumentary [id number]: [id number] Esha subq tissue 20 sq cm/< Assessment/Plan Assessment/Plan (1) Non-pressure chronic ulcer of right calf with fat layer exposed: CODE(S): L97.212 - Non-pressure chronic ulcer of right calf with fat layer exposed (2) Traumatic open wound of lower leg: CODE(S): S81.809A - Unspecified open wound, unspecified lower leg, initial encounter QUALIFIERS: Encounter type: subsequent encounter Laterality: right Qualified Code(s): S81.801D - Unspecified open wound, right lower leg, subsequent encounter (3) S/P ORIF (open reduction internal fixation) fracture: CODE(S): Z96.7 - Presence of other bone and tendon implants; Z87.81 - Personal history of (healed) traumatic fracture (4) S/P ORIF (open reduction internal fixation) fracture: CODE(S): Z98.890 - Other specified postprocedural states; Z87.81 - Personal history of (healed) traumatic fracture (5) History of surgery on wrist: CODE(S): Z98.890 - Other specified postprocedural states (6) History of cataract surgery: CODE(S): Z98.49 - Cataract extraction status, unspecified eye (7) History of ankle surgery: CODE(S): Z98.890 - Other specified postprocedural states (8) Hypothyroidism: CODE(S): E03.9 - Hypothyroidism, unspecified QUALIFIERS: Hypothyroidism type: acquired Qualified Code(s): E03.9 - Hypothyroidism, unspecified (9) Raynaud phenomenon: CODE(S): I73.00 - Raynaud's syndrome without gangrene QUALIFIERS: Raynaud?s-associated gangrene presence: without gangrene Qualified Code(s): I73.00 - Raynaud's syndrome without gangrene (10) Osteoporosis: CODE(S): M81.0 - Age-related osteoporosis without current pathological fracture (11) Cukm-qtyv-snudqtfnejxkjvl: 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 The injury occurred when the patient's dog traumatized her leg with its nails. Due to management at the [facility], the wound on the left calf has completely healed and epithelialized. However, the patient subsequently sustained a wound on her right calf as the result of a similar injury caused by her dog. She was seen and evaluated in the [facility] Emergency Department on March 13, 2025, at which time she was found to have a triangular- shaped laceration/avulsion injury on her right calf. Seven 4-0 Ethilon sutures were used to reapproximate the avulsion flap. The patient was placed on cephalexin and Augmentin orally. The sutures, which were placed in the Emergency Department, were removed on March 22, 2025, at the [facility] in [place]. The avulsion flap did not survive due to ischemia, and it necrosed, leaving an open, full-thickness wound at the site. The wound has decreased in size progressively. We are to continue the use of collagen hydrogel topically on a daily basis. The patient has been instructed in the appropriate means of application. The patient is to return in 2 weeks for reevaluation. The patient has been counseled to elevate her lower extremities as much as possible, to remain active, and to avoid prolonged, idle sitting. She has been advised to optimize her nutritional intake, and is using Huy as a supplement. Total time: 22 minutes
== END 2025-05-09 23:59 | disposition home or self-care (01) ==
LOC: WC 13:00
PROVIDERS: PCP Internal Medicine; Referring Provider Internal Medicine; Visit Provider Surgery
DX: L97.212 Non-pressure chronic ulcer of right calf with fat layer exposed (principal); E03.9 Hypothyroidism, unspecified; S81.811S Laceration without foreign body, right lower leg, sequela; W54.1XXS Struck by dog, sequela; K21.9 Gastro-esophageal reflux disease without esophagitis; I10 Essential (primary) hypertension; Z79.899 Other long term (current) drug therapy
CPT/HCPCS: 11042

== ENCOUNTER 2025-05-25 12:45 | Outpatient (RCR) | payer MEDICARE, OTHER, SELFPAY ==
[2025-05-25 13:09] VITALS: BP 120/61; PULSE 89; RESP 18; TEMP 36.1
--- NOTE | 2025-05-26 13:49 | HP.PCM_ITS ---
History of Present Illness Date of Service: 05/25/25 Chief Complaint: Traumatic avulsion injury of the right medial calf History of Wound: This is a 74-year-old female who sustained a traumatic injury to her left medial calf on January 01, 2025. At the time of her injury, she presented to the [facility] Emergency Department, where she was found to have an avulsion injury with a significant adherent cutaneous flap. The injury was caused by the nails of her dog, who had jumped off the couch. In the Emergency Department, the flap was sutured in place using seven 5-0 nylon sutures. The patient was placed on Keflex and Augmentin orally, and was discharged. The patient is generally healthy for her age, though has a history of [id number], GERD, hypertension, hypothyroidism, and osteoporosis. She denies a history of diabetes mellitus, myocardial infarction, cerebrovascular accident, renal disease, and pulmonary disease. Her BMI is 19.5. She is . Since the patient's initial presentation, the traumatic injury on her left calf has healed, and she has sustained a similar injury to the right medial calf, for which she remained a patient at the [facility]. [facility] Medical History Non-pressure chronic ulcer of right calf with fat layer exposed Non-pressure chronic ulcer of left calf with fat layer exposed Traumatic open wound of lower leg Avulsion injury GERD (gastroesophageal reflux disease) HTN (hypertension) Hypothyroidism Depression Anxiety Home Medications ?Medication ?Instructions ?Recorded ?Last Taken ?Type levothyroxine 25 mcg tablet 25 mcg PO DAILY Check with primary 02/07/15 09/29/16 09:00 History doctor Bacillus coagulans-inulin 1 1 ea PO DAILY Check with jesus cheung 12/07/15 09/29/16 09:00 History billion cell-250 mg capsule doctor (Probiotic Formula (inulin)) gabapentin 100 mg capsule 600 mg PO BID Check with moose mcmillan 12/07/15 09/29/16 21:00 History doctor nifedipine 60 mg tablet,extended 180 mg PO DAILY Check with primary 12/07/15 09/29/16 09:00 History release 24 hr doctor pantoprazole 20 mg tablet,delayed 20 mg PO DAILY [facility] 12/07/15 09/29/16 09:00 History release paroxetine HCl 25 mg 75 mg PO DAILY depression 09/29/16 09:00 History tablet,extended release 24 hr (Paxil CR) aspirin 325 mg tablet,delayed 325 mg PO DAILY HEART 09/29/16 09:00 History release buspirone 5 mg tablet 30 mg PO BID Check with prim lesley 04/26/16 09/29/16 21:00 History doctor budesonide 3 mg 9 mg PO DAILY Check with moose deyanira 09/30/16 Unknown History capsule,delayed,extended release doctor (Entocort EC) lorazepam 0.5 mg tablet 0.5 mg PO Q6H PRN PRN Anxiet y ##10 10/03/16 Unknown Rx dicyclomine 20 mg tablet 20 mg PO TID Check with prim lesley 09/02/22 Unknown History doctor Metamucil Check with primary doctor Unknown History food supplemt, lactose-reduced 120 ml PO 4X/DAY Check with 09/07/22 Unknown History 0.08 gram-1.5 kcal/mL oral liquid primary doctor (Ensure Enlive) loperamide 2 mg tablet 2 mg PO Q6H PRN Constipation 09/07/22 Unknown History omeprazole 40 mg PO/SL DAILY Check with 09/07/22 Unknown History primary doctor atorvastatin 80 mg tablet 20 mg (1/4 x 80 mg) PO QHS # 30 tabs 09/08/22 Unknown Rx cyclobenzaprine 5 mg tablet 5 mg PO TID PRN muscle spa sm #14 03/18/25 Unknown Rx tabs ondansetron 4 mg disintegrating 4 mg PO Q6H PRN nausea and 03/18/25 Unknown Rx tablet vomiting #20 tabs oxycodone-acetaminophen 5 mg-325 1 tab PO Q6H PRN pain 2 days #8 03/18/25 Unknown Rx mg tablet (Endocet) tabs Allergy/AdvReac Type Severity Reaction Status Date / Time acetaminophen (From Percocet) Allergy Other Verified 03/13/25 19:15 oxycodone (From Percocet) Allergy Other Verified 03/13/25 19:15 codeine AdvReac Nausea & Verified 03/13/25 19:15 dizziness oxycodone HCl (From Percocet) AdvReac Nausea & Verified 03/13/25 19:15 dizziness Family History Father Diabetes Dementia Surgical History S/P ORIF (open reduction internal fixation) fracture History of surgery on wrist History of cataract surgery History of ankle surgery Social History household members: none Smoking Status: Never smoker substance use type: does not use Physical Exam Const alert, oriented x3, no apparent distress, average body habitus and no limitations Constitutional Narrative: The patient's BMI is 19.5. She is thin and petite. General Appearance: cooperative, comfortable, well kempt and well developed Orientation / Consciousness: awake, oriented to person, oriented to place and oriented to time Exam Limitations: no limitations HEENT normocephalic and head/scalp atraumatic Head and Scalp: normal to inspection, normocephalic and atraumatic Face and Sinus: normal facial exam Nose: external nose normal External Ear: external ears normal Eyes EOMs intact bilaterally General Eye: normal appearance of both eyes Neck full ROM Resp normal respiratory effort, normal air movement, no retractions and no use of accessory muscles Effort and Inspection: able to speak in complete sentences Extremity General Extremity: Negative for clubbing or cyanosis Skin Wound Narrative: The traumatic wound on the patient's right lower extremity is now completely healed and epithelialized. There is no sign of infection or cellulitis. No significant swelling or edema are noted in the lower extremities. Neuro oriented x3, CN's II-XII intact bilaterally, moves all extremities, no focal motor deficits and no sensory deficits noted Sensorium / Orientation: awake, alert, oriented to person, oriented to place and oriented to time Speech: speech normal Psych Appearance: grossly normal and appropriate Attitude: calm Activity / Motor Behavior: appropriate eye contact Speech: normal speech Mood & Affect: euthymic mood Thought Process: normal thought process Thought Content: normal thought content Attention / Concentration: attention grossly intact Debridement Note Debridement Note No debridement was completed: No debridement was completed today Post-Debridement Measurements and Additional Note: Post-Debridement Measurements/Treatment WC - Nurse 1 - General Ulcer Assessment Start: 05/25/25 13:09 Freq: Status: Active Protocol: NATHALIE Activity Type Activity Date Activity User E-sign Co-sign Detail Recorded Client Recorded Date Recorded By Document 05/25/25 13:09 KW [id number] 05/25/25 13:12 05/25/25 13:09 WC - Today's Visit Information Type of service 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 Any new allergies or adverse reactions No Had a fall/change in ADL's that may No increase risk of falls Signs or symptoms of abuse and/or No neglect since last visit Have you been in the hospital since your No last visit? Has dressing in place as prescribed Yes Has compression in place as prescribed No Has offloadiing in place as prescribed N/A Experienced any changes in pain level or No management Left Footwear Regular Shoe Right Footwear Regular Shoe Pain Scale: 0-10 Numeric Is Patient Pain Free? Yes - Nurse 1 - General Ulcer Measurement Start: 05/25/25 13:09 Freq: Status: Active Protocol: Activity Type Activity Date Activity User E-sign Co-sign Detail Recorded Client Recorded Date Recorded By Document 05/25/25 13:09 KW [id number] 05/25/25 13:12 05/25/25 13:09 Wound Center Nurse 1 #2- R LAT LEG- DOG SCRATCH -Current Size (cm) - Length 0 -Current Size (cm) - Width 0 -Current Size (cm) - Depth 0 -Total Square Cm 0 -Date of Last Picture (Recall this 05/25/25 field) -Epithelialization Large 67-100% -Exudate Amt None Present -Granulation Amt None Present (0 %) -Texture (Maylin-wound Skin Appearance) Assessed -Moisture (Maylin-wound Skin Appearance) Assessed -Color (Maylin-wound Skin Appearance) Assessed -Temperature (Maylin-wound Skin No Abnormality Appearance) (Pt Warm) -Tenderness on Palpation (Maylin-wound No Skin Appearance) -Ulcer Cleansing Rinsed/ Irrigated with Saline -Foul Odor after Cleansing No -Wound Comment(s) possibly healed WC - Nurse 2 - General Ulcer CM Notes Start: 05/25/25 13:09 Freq: Status: Active Protocol: Activity Type Activity Date Activity User E-sign Co-sign Detail Recorded Client Recorded Date Recorded By Document 05/25/25 13:16 DS [id number] 05/25/25 13:17 DS 05/25/25 13:16 Wound Center Nurse 2 -Time 13:16 -Correct Patient Yes -Correct Side, Site, Position Yes -Procedure Performed No -Wound/Ulcer Outcome Healed- Epithelialized Pain Scale: 0-10 Numeric Is Patient Pain Free? Yes WC - Nurse 3 - General Ulcer D/C NN Start: 05/25/25 13:09 Freq: Status: Active Protocol: Activity Type Activity Date Activity User E-sign Co-sign Detail Recorded Client Recorded Date Recorded By Document 05/25/25 13:17 DS [id number] 05/25/25 13:17 DS 05/25/25 13:17 Wound Care Center Nurse 3 #2- R LAT LEG- DOG SCRATCH -Wound Comment(s) pt healed - pt d/c Pain Scale: 0-10 Numeric Is Patient Pain Free? Yes WC - Visit Discharge Discharge Condition Stable Ambulatory Status Ambulatory,Cane Transportation Private Auto Charges/Coding Visit Charges Office Visits / Consults: [id number] OV L3 Est 20min Assessment/Plan Assessment/Plan (1) Non-pressure chronic ulcer of right calf with fat layer exposed: CODE(S): L97.212 - Non-pressure chronic ulcer of right calf with fat layer exposed (2) Traumatic open wound of lower leg: CODE(S): S81.809A - Unspecified open wound, unspecified lower leg, initial encounter QUALIFIERS: Encounter type: subsequent encounter Laterality: right Qualified Code(s): S81.801D - Unspecified open wound, right lower leg, subsequent encounter (3) S/P ORIF (open reduction internal fixation) fracture: CODE(S): Z96.7 - Presence of other bone and tendon implants; Z87.81 - Personal history of (healed) traumatic fracture (4) S/P ORIF (open reduction internal fixation) fracture: CODE(S): Z98.890 - Other specified postprocedural states; Z87.81 - Personal history of (healed) traumatic fracture (5) History of surgery on wrist: CODE(S): Z98.890 - Other specified postprocedural states (6) History of cataract surgery: CODE(S): Z98.49 - Cataract extraction status, unspecified eye (7) History of ankle surgery: CODE(S): Z98.890 - Other specified postprocedural states (8) Hypothyroidism: CODE(S): E03.9 - Hypothyroidism, unspecified QUALIFIERS: Hypothyroidism type: acquired Qualified Code(s): E03.9 - Hypothyroidism, unspecified (9) Raynaud phenomenon: CODE(S): I73.00 - Raynaud's syndrome without gangrene QUALIFIERS: Raynaud?s-associated gangrene presence: without gangrene Qualified Code(s): I73.00 - Raynaud's syndrome without gangrene (10) Osteoporosis: CODE(S): M81.0 - Age-related osteoporosis without current pathological fra cture (11) Qzpq-wyfo-sdfspdrijgugjee: CODE(S): E78.6 - Lipoprotein deficiency PLAN: Plan This is a 74-year-old female who has recently been treated for traumatic wounds on both lower extremities. However, as of this clinic visit, all wounds are now completely healed and epithelialized. Therefore, the patient is to be discharged, and she will follow-up henceforth on an as needed basis. Total time: 20 minutes
--- NOTE | 2025-05-26 14:22 | WC ---
PHOTO - RLE 05/25/25
== END 2025-06-08 15:49 | disposition home or self-care (01) ==
LOC: WC 12:45
PROVIDERS: PCP Internal Medicine; Referring Provider Internal Medicine; Visit Provider Surgery
DX: Z09 Encounter for follow-up examination after completed treatment for conditions other than malignant neoplasm (principal); I73.00 Raynaud's syndrome without gangrene
CPT/HCPCS: 99213; G0463

== ENCOUNTER 2025-08-05 18:37 | Inpatient (IN) | payer MEDICARE, OTHER, SELFPAY ==
[2025-08-05 18:38] VITALS: BP 111/69; PULSE 97; RESP 15; TEMP 36.6; O2SAT 100; BMI 18.8
[2025-08-05 18:39] VITALS: BP 118/57; PULSE 89; RESP 16; TEMP 36.8; O2SAT 97
--- OUTSIDE RECORDS SUMMARY | 2025-08-05 19:03 | XMS RPT_ITS | CCD ---
Author Organization [facility] Care Team Providers Care Market Analysis Director Name Role Phone Chance Kolb MD Primary Care Provider Dr. Chance Kolb Primary Care Provider Dr. Harpal Ennis Attending Provider Dr. Harpal Velasco Emergency Provider Dr. Roseline Christian Admit Provider Dr. Roseline Christian Other Provider Dr. Isabell Márquez Attending Provider Dr. Isabell Márquez Other Provider Chance Kolb MD Primary Care Provider Chance Kolb Primary Care Provider Chance Kolb MD Primary Care Provider TALAMPAS, CHANCE, Primary Care Unavailable YARED, THEA Attending Unavailable YARED, THEA Attending Unavailable TALAMPAS, CHANCE, Primary Care Unavailable YARED, THEA Referring Unavailable TALAMPAS, CHANCE, Primary Care Unavailable YARED, THEA Referring Unavailable YARED, THEA Attending Unavailable TALAMPAS, CHANCE, Primary Care Unavailable BACKER, ISLAM Referring Unavailable TALAMPAS, CHANCE, Primary Care Unavailable YARED, THEA Attending Unavailable TALAMPAS, CHANCE, Primary Care Unavailable Stringer FITNESS COACH.LEAD BURNER SUPERVISOR, Nguyễn Unavailable Vijaya FITNESS COACH.DEALERSHIP MANAGER, Malachi Unavailable Vijaya FITNESS COACH.DEALERSHIP MANAGER, Malachi Unavailable Stringer FITNESS COACH.LEAD BURNER SUPERVISOR, Nguyễn Unavailable Dr. Chance Kolb MD Primary Care Provider [phone] Zo MONIQUE, Dr. Maria Attending Provider Zo MONIQUE, Dr. Maria Emergency Provider Cortes BOWIE, Dr. Chance Worthington Referring Provider Edwige BOWIE, Dr. Cedric Samuel Attending Provider Edwige BOWIE, Dr. Cedric Samuel Other Provider Ra MONIQUE, Dr. Solis Emergency Provider Ra MONIQUE, Dr. Solis Attending Provider Cortes BOWIE, Dr. Chance Worthington Primary Care Provider [phone] Cortes BOWIE, Dr. Chance Worthington Referring Provider Edwige BOWIE, Dr. Cedric Samuel Attending Provider Edwige BOWIE, Dr. Cedric Samuel Other Provider Cortes BOWIE, Dr. Chance Worthington Primary Care Physician Cortes BOWIE, Dr. Chance Worthington Referring Provider Edwige BOWIE, Dr. Cedric Samuel Attending Physician Edwige BOWIE, Dr. Cedric Samuel Nurse Practitioner Ra MONIQUE, Dr. Solis Attending Physician Ra MONIQUE, Dr. Solis Emergency Department Physic killian Talampas, Chance D Primary Care Unavailable Crow Pathak Attending Unavailable Will Knapp Attending Unavailable Talampas, Chance D Primary Care Unavailable Talampas, Chance D Referring Unavailable Talampas, Chance D Primary Care Unavailable Cedric Gibbons Attending Unavailable Talampas, Chance D Referring Unavailable Talampas, Chance D Primary Care Unavailable Cedric Gibbons Attending Unavailable Talampas, Chacne D Referring Unavailable Talampas, Chance D Primary Care Unavailable Cedric Gibbons Attending Unavailable MANJU ALFARO Attending Unavailable Talampas, Chance D Primary Care Unavailable Talampas, Chance D Referring Unavailable Talampas, Chance D Primary Care Unavailable Cedric Gibbons Attending Unavailable Talampas, Chance D Referring Unavailable Talampas, Chance D Primary Care Unavailable Gibbons, Cedric A Attending Unavailable Cedric Gibbons Attending Unavailable Talampas, Chance D Referring Unavailable Talampas, Chance D Primary Care Unavailable Cedric Gibbons Attending Unavailable Talampas, Chance D Referring Unavailable Talampas, Chance D Primary Care Unavailable Will Knapp Attending Unavailable Talampas, Chance D Primary Care Unavailable TALAMPAS, CHANCE D Primary Care Unavailable TALAMPAS, CHANCE D Primary Care Unavailable TALAMPAS, CHANCE D Referring Unavailable TALAMPAS, CHANCE D Primary Care Unavailable MALACHI LILLY Attending Unavailable TALAMPAS, CHANCE D Primary Care Unavailable TALAMPAS, CHANCE D Referring Unavailable TALAMPAS, CHANCE D Primary Care Unavailable STRINGERNGUYỄN Attending Unavailable TALAMPAS, CHANCE D Primary Care Unavailable CARMEN MIRANDA Referring Unavailable TALAMPAS, CHANCE D Primary Care Unavailable STRINGERWILTONI Attending Unavailable SELF Referring Unavailable TALAMPAS, CHANCE D Primary Care Unavailable O'EDISON, BAILEY Attending Unavailable TALAMPAS, CHANCE D Referring Unavailable TALAMPAS, CHANCE D Primary Care Unavailable O'EDISON, BAILEY Attending Unavailable TALAMPAS, CHANCE D Referring Unavailable TALAMPAS, CHANCE D Primary Care Unavailable O'EDISON, BAILEY Attending Unavailable TALAMPAS, CHANCE D Referring Unavailable TALAMPAS, CHANCE D Primary Care Unavailable O'EDISON, BAILEY Attending Unavailable TALAMPAS, CHANCE D Referring Unavailable TALAMPAS, CHANCE D Primary Care Unavailable MALACHI LILLY Referring Unavailable TALAMPAS, CHANCE D Primary Care Unavailable STRINGERNGUYỄN Attending Unavailable TALAMPAS, CHANCE D Primary Care Unavailable STRINGER NGUYỄN Referring Unavailable TALAMPAS, CHANCE D Primary Care Unavailable TALAMPAS, CHANCE D Primary Care Unavailable Allergies Allergy Classification Reported Allergen(s) Allergy Type Date of Onset Reaction(s) Facility (20 sources) Acetaminophen / oxyCODONE; Translations: [OXYCODONE-ACETAM INOPHEN] Drug Allergy 5 [facility] (20 sources) Codeine; Translations: [CODEINE] Drug Allergy 5 Nausea, Nausea & dizziness [facility] Work Phone: (13 sources) oxyCODONE; Translations: [oxycodone HCl] Drug Allergy 2 Nausea, Nausea & dizziness [facility] (19 sources) oxyCODONE Drug Allergy 7 Other [facility] Comment on above: unknown (7 sources) Acetaminophen Drug Allergy 5 Other [facility] Comment on above: unknown (1 source) Acetaminophen Drug Allergy 5 [facility] (1 source) Codeine Drug Allergy 5 [facility] (1 source) oxyCODONE Drug Allergy 5 [facility] Medications Current Medications Medication Drug Class(es) Dates Sig (Normalized) Sig (Original) acetaminophen 325 mg / oxyCODONE hydrochloride 5 mg oral tablet (4 sources) Opioid Agonist Start: 03-18-2025 take 1 tablet by mouth every six hours as needed for pain aspirin 325 mg delayed release oral tablet (20 sources) Platelet Aggregation Inhibitor, Nonsteroidal Anti-inflammatory Drug Start: 04-26-2016 take 1 tablet by mouth once daily Start: 12-07-2015 End: 04-26-2016 take 1 tablet by mouth twice daily Aspirin 325 MG tablet Discontinued 325 mg PO TWICE A DAY 40 0 December 14, 2015 8:44am April 26, 2016 2:54pm aspirin (Aspirin Adult) 325 MG tablet Take by mouth. 0 Active Comment on above: Take 1 tablet by mary th once daily. atorvastatin 20 mg oral tablet (20 sources) HMG-CoA Reductase Inhibitor Start: 3 take 1 tablet by mouth once daily at bedtime atorvastatin (LIPITOR) 20 mg tablet Take 20 mg by mouth daily at bedtime. 10/15/2022 Active Start: 09-08-2022 Start: 09-08-2022 take 20 mg by mouth at bedtime Atorvastatin Active 20 MG PO AT BEDTIME September 08, 2022 1:00am Comment on above: Take 20 mg by mouth daily at bedtime. bacillus coagulans [id number] unt / inulin 250 mg oral capsule (12 sources) Start: 016 take 1 capsule by mouth once daily bifidobacterium animalis [id number] unt / lactobacillus acidophilus [id number] unt oral capsule (12 sources) Probiotic Produc t ([facility] Adult 50+ Probiotic) capsule Take by mouth. 0 Active budesonide 3 mg delayed release oral capsule (20 sources) Corticosteroid Start: 019 take 1 capsule by mouth every twenty-four hours budesonide, enteric coated (ENTOCORT EC) 3 mg 24 hr capsule Indications: Crohn's disease of large intestine without complication (HCC) Take 3 capsules by mouth once daily. (Dr. John Swan) 12/16/2018 Active Start: 09-30-2016 Start: 09-30-2016 Budesonide (En tocort Ec) 3 MG Capdr...Er Active 9 MG PO DAILY September 30, 2016 1:00am Comment on above: Take 3 capsules by m out once daily. (Dr. John Swan) busPIRone hydrochloride 5 mg oral tablet (20 sources) Start: 04-26-2016 Start: 04-26-2016 take 30 mg by mouth twice stephen y Buspirone Active 30 MG PO TWICE A DAY April 26, 2016 12:00am Start: 10-07-2013 End: 12-14-2015 take 1 tablet by mouth twice daily Buspirone 30 MG tablet Discontinued 30 mg PO TWICE A DAY December 07, 2015 12:00am December 14, 2015 8:44am Comment on above: Take 1 tablet by mary twice daily. (Gets from psychiatrist now) calcium carbonate 600 mg / cholecalciferol 125 unt oral tablet (20 sources) Vitamin D Start: 7 take 1 tablet by mouth twice daily Calcium-Choleca lciferol, D3, (CALCIUM 600 + D) 600-125 mg-unit tab Take 1 tablet by mouth twice daily. 180 tablet 3 01/18/2017 Active Comment on above: Take 1 tablet by mary twice daily. cyclobenzaprine hydrochloride 5 mg oral tablet (5 sources) Muscle Relaxant Start: 5 take 1 tablet by mouth three times daily as needed for muscle spasms Start: 10-03-2016 take 10 mg by mouth three times daily as needed Cyclobenzaprine Active 10 MG PO 3 TIMES DAILY NEEDED 0 October 03, 2016 1:00am DAILY MULTIVITAMIN TAB (20 sources) Start: 02-13-2006 DAILY MULTIVIT JARA TAB 0 02/13/2006 Active Start: 02-13-2006 DAILY MULTIVIT JARA TAB dicyclomine hydrochloride 20 mg oral tablet (20 sources) Anticholinergic Start: 12-16-2018 take 1 tablet by mouth three times daily Start: 02-07-2015 take 20 mg by mouth three times daily Dicyclomine Hcl Active 20 MG PO THREE TIMES A DAY February 07, 2015 12:00am Comment on above: Take 1 tablet by mary three times daily. (Dr. Swan prescribing) famotidine 40 mg oral tablet (20 sources) Histamine-2 Receptor Antagonist Start: 3 take 1 tablet by mouth once daily famotidine (PEPCID) 40 mg tablet Take 1 tablet by mouth once daily. 30 tablet 2 03/26/2023 Active Comment on above: Take 1 tablet by mary once daily. Food Supplemt, Lactose-Reduced (Ensure Enlive) 120 ML Liquid (2 sources) Start: 7 take 1 mL by mouth four times daily Food Supplemt, Lactose-Reduced (Ensure Enlive) 120 ML Liquid Active 120 ML PO 4 TIMES DAILY October 03, 2016 12:00am Start: 10-03-2016 take 1 mL by mouth f our times daily Food Supplemt, Lactose-Reduced (Ensure Enlive) 120 ML Liquid Active 120 ML PO 4 TIMES DAILY October 03, 2016 1:00am Food Supplemt, Lactose-Reduc ed (Ensure Enlive) 120 ML liquid (20 sources) Start: 09-07-2022 take 1 mL by mouth f our times daily Start: 09-07-2022 take 1 mL by mouth f our times daily Food Supplemt, Lactose-Reduced (Ensure Enlive) 120 ML liquid Active 120 mL PO 4 TIMES DAILY September 07, 2022 1:15am Check with primary doctor Start: 09-07-2022 take 1 mL by mouth f our times daily Food Supplemt, Lactose-Reduced (Ensure Enlive) 120 ML liquid Active 120 mL PO 4 TIMES DAILY September 07, 2022 1:15am Start: 09-07-2022 take 1 mL by mouth f our times daily Food Supplemt, Lactose-Reduced (Ensure Enlive) 120 ML liquid Active 120 ML PO 4 TIMES DAILY September 07, 2022 1:15am Start: 09-07-2022 take 1 mL by mouth f our times daily Food Supplemt, Lactose-Reduced (Ensure Enlive) 120 ML liquid Active 120 ML PO 4 TIMES DAILY September 07, 2022 12:15am Start: 10-03-2016 End: 09-07-2022 take 1 mL by mouth four times daily Food Supplemt, Lactose-Reduced (Ensure Enlive) 120 ML liquid Discontinued 120 mL PO 4 TIMES DAILY 0 October 03, 2016 1:00am September 07, 2022 1:15am Start: 10-03-2016 End: 09-07-2022 take 1 mL by mouth four times daily Food Supplemt, Lactose-Reduced (Ensure Enlive) 120 ML liquid Discontinued 120 mL PO 4 TIMES DAILY October 03, 2016 1:00am September 07, 2022 1:15am Start: 10-03-2016 End: 09-07-2022 take 1 mL by mouth four times daily Food Supplemt, Lactose-Reduced (Ensure Enlive) 120 ML liquid Discontinued 120 ML PO 4 TIMES DAILY October 03, 2016 1:00am September 07, 2022 1:15am Start: 10-03-2016 End: 09-07-2022 take 1 mL by mouth four times daily Food Supplemt, Lactose-Reduced (Ensure Enlive) 120 ML liquid Discontinued 120 ML PO 4 TIMES DAILY October 03, 2016 12:00am September 07, 2022 12:15am gabapentin 600 mg oral tablet (20 sources) Anti-epileptic Agent Start: 11-14-2021 End: 02-03-2026 take 1 tablet by mouth twice daily gabapentin (NEURONTIN) 600 mg tablet Indications: Numbness and tingling in right hand Take 1 tablet by mouth two times a day. 180 tablet 3 02/03/2025 02/03/2026 Active Start: 01-17-2021 End: 11-10-2021 take 1 tablet by mouth twice daily gabapentin (NEURONTIN) 600 mg tablet Indications: Numbness and tingling in right hand Take 1 tablet by mouth twice daily. 180 tablet 3 01/17/2021 11/10/2021 Discontinued Start: 12-07-2015 Start: 12-07-2015 take 600 mg by mouth twice daily Gabapentin Active 600 MG PO TWICE A DAY December 07, 2015 12:00am Comment on above: Take 1 tablet by mary th twice daily. Take 1 tablet by mary th two times a day. krill oil 500 mg oral capsule (12 sources) Krill Oil (Chapin-3) 500 MG capsule Take by mouth. 0 Active levothyroxine sodium 0.025 mg oral tablet (20 sources) l-Thyroxine Start: 02-08-20 End: 02-04-20 take 1 tablet by mouth once daily Comment on above: Take 1 tablet by mary th daily before breakfast. lidocaine 0.05 mg/mg medicated patch (20 sources) Antiarrhythmic, Amide Local Anesthetic Start: 09-06-20 23 apply 30 doses transdermal route once daily as needed lidocaine (LIDODERM) 5 % Indications: Closed fracture of multiple ribs of right side, initial encounter Apply to the right rib cage once a day as needed, wear for 12 hours and then remove. 30 Patch 09/06/2023 Active loperamide hydrochloride 2 mg oral tablet (20 sources) Opioid Agonist Start: 09-07-20 22 take 1 tablet by mouth every six hours as needed for constipation Start: 02-13-2006 take 1 tablet by mary th once as needed IMODIUM A-D 2 MG TAB Take 2 mg by mouth as needed (When needed). 0 02/13/2006 Active Comment on above: take as needed (when going out) Take 2 mg by mouth a s needed (When needed). LORazepam 0.5 mg oral tablet (20 sources) Benzodiazepine Start: 02-07-2015 End: 10-03-2016 take 1 tablet by mouth every six hours as needed for anxiety Start: 05-12-2013 take 1 tablet by mary th every eight hours as needed LORazepam 0.5 mg Tab Take 1 tablet by mouth three times daily as needed. Prescribing Dr: Keely Moore MD 05/12/2013 Active Comment on above: Take 1 tablet by mary th three times daily as needed. Prescribing Dr: Keely Moore MD Multiple Vitamin (Multi Vitamin) tablet (12 sources) Multiple Vitamin (Multi Vitamin) tablet Take by mouth. 0 Active naproxen 500 mg oral tablet (18 sources) Nonsteroidal Anti-inflammatory Drug Start: 4 take 1 tablet by mouth twice daily as needed for pain naproxen (NAPROSYN) 500 mg tablet Indications: Cervicalgia , Acute intractable headache, unspecified headache type Take 1 tablet by mouth two times a day as needed (for pain/inflammation). Take with food. 30 tablet 05/14/2024 Active NIFEdipine 30 mg osmotic 24 hr extended release oral tablet (20 sources) Dihydropyridine Calcium Channel Freya Start: 3 NIFEdipine XL (Procardia XL) 30 MG 24 hr tablet Start: 09-08-2020 End: 02-03-2025 take 6 tablets by mouth once daily NIFEdipine ER (PROCARDIA XL) 30 mg 24 hr tablet Indications: Raynaud's disease without gangrene Take 6 tablets by mouth once daily. Adjust as direceted 540 tablet 3 02/03/2025 Active Start: 12-07-2015 take 3 tablets by mo uth once daily Start: 12-07-2015 take 180 mg by mouth once stephen y Nifedipine Active 180 MG PO DAILY December 07, 2015 12:00am Start: 12-07-2015 take 150 mg by mouth once stephen y Nifedipine Active 150 MG PO DAILY December 07, 2015 12:00am Comment on above: Take 6 tablets by mo uth once daily. Adjust as direceted Take 5 tablets by mo uth once daily. As direceted nitrofurantoin, macrocrystals 25 mg / nitrofurantoin, monohydrate 75 mg oral capsule (12 sources) Nitrofuran Antibacterial Start: End: take 1 capsule by mouth twice daily at mealtime nitrofurantoin monohydrate and macrocrystal (MACROBID) 100 mg capsule Indications: UTI symptoms Take 1 capsule by mouth two times a day with meals for 7 days. 14 capsule 2024 10/16/2024 Active Start: 08-01-2024 End: 08-08-2024 take 1 capsule by mouth twice daily at mealtime nitrofurantoin monohydrate and macrocrystal (MACROBID) 100 mg capsule Indications: Urinary tract infection with hematuria, site unspecified Take 1 capsule by mouth two times a day with meals for 7 days. Take this if you are still having burning, urgency or frequency after taking the first 7 days. Take with food 14 capsule 08/07/2024 08/07/2024 Discontinued Start: 08-01-2024 End: 07-27-2024 take 1 capsule by mouth twice daily at mealtime nitrofurantoin monohydrate and macrocrystal (MACROBID) 100 mg capsule Take 1 capsule by mouth two times a day with meals for 7 days. Take this if you are still having burning, urgency or frequency after taking the first 7 days. Take with food Patient should start on August 01, 2024. 14 capsule 08/01/2024 07/27/2024 Discontinued Start: 07-25-2024 End: 08-08-2024 take 1 capsule by mouth twice daily at mealtime nitrofurantoin monohydrate and macrocrystal (MACROBID) 100 mg capsule Indications: Dysuria , Urinary tract infection with hematuria, site unspecified Take 1 capsule by mouth two times a day with meals for 7 days. 14 capsule 07/25/2024 08/01/2024 Active Start: 07-31-2023 take 1 capsule by mo ut twice daily nitrofurantoin monohydrate and macrocrystal (MACROBID) 100 mg capsule Indications: Urinary tract infection without hematuria, site unspecified Take 1 capsule by mouth two times a day. 14 capsule 0 07/31/2023 Active Comment on above: Take 1 capsule by mo ut two times a day. omeprazole 40 mg oral tablet (20 sources) Proton Pump Inhibitor Start: 09-07-2022 take 1 capsule by mouth once daily Start: 03-30-2022 take 1 capsule by mo ut once daily omeprazole (PRILOSEC) 40 mg capsule Indications: Gastroesophageal reflux disease without esophagitis Take 1 capsule by mouth once daily. (Dr. Swan--GI)--insurance would not cover 40 mg twice daily 03/30/2022 Active Start: 04-28-2018 End: 03-30-2022 take 2 capsules by mouth twice daily omeprazole (PRILOSEC) 20 mg capsule Take 2 capsules by mouth twice daily. (Dr. Swan--GI) 04/28/2018 03/30/2022 Discontinued Comment on above: Take 2 capsules by [facility] twice daily. (Dr. Swan--GI) Take 1 capsule by mo ut once daily. (Dr. Swan--GI)--insurance would not cover 40 mg twice daily ondansetron 4 mg disintegrating oral tablet (4 sources) Serotonin-3 Receptor Antagonist Start: 03-18-20 25 take 1 tablet by mouth every six hours as needed for nausea and vomiting pantoprazole 20 mg delayed release oral tablet (12 sources) Proton Pump Inhibitor Start: 12-07-19 16 take 1 tablet by mouth once daily PARoxetine hydrochloride 30 mg oral tablet (20 sources) Serotonin Reuptake Inhibitor Start: 07-02-20 23 PARoxetine (Paxil) 30 MG tablet Start: 04-24-2016 take 2.5 tablets by mouth once daily PARoxetine (PAXIL) 30 mg tablet Take 2.5 tablets by mouth once daily. (from psychiatrist) 0 04/24/2016 Active Start: 12-07-2015 Start: 12-07-2015 Paroxetine Hcl (Paxil Cr) 25 MG tablet extended release 24 hr Active 75 mg PO DAILY December 07, 2015 12:00am depression Start: 12-07-2015 Paroxetine Hcl (Paxil Cr) 25 MG tablet extended release 24 hr Active 75 mg PO DAILY December 07, 2015 12:00am Start: 12-07-2015 Paroxetine Hcl (Paxil Cr) 25 MG tablet extended release 24 hr Active 75 MG PO DAILY December 07, 2015 12:00am Start: 12-07-2015 Paroxetine Hcl (Paxil Cr) 25 MG tablet extended release 24 hr Active 75 MG PO DAILY December 06, 2015 11:00pm Start: 12-07-2015 take 1 tablet by mary th once daily Paroxetine Hcl (Paxil Cr) 25 MG Tab.Er.24h Active 75 MG PO DAILY December 07, 2015 12:00am Comment on above: Take 2.5 tablets by mouth once daily. (from psychiatrist) phenazopyridine hydrochloride 200 mg oral tablet (3 sources) Start: End: take 1 tablet by mouth three times daily as needed phenazopyridine (PYRIDIUM) 200 mg tablet Indications: Dysuria Take 1 tablet by mouth three times a day as needed for up to 3 days. 9 tablet 07/25/2024 07/28/2024 Active promethazine hydrochloride 12.5 mg oral tablet (12 sources) Phenothiazine Start: take 1 tablet by mouth every four to six hours as needed promethazine (Phenergan) 12.5 MG tablet Take 1 tablet by mouth every four to six hours as needed for 1 day 0 03/29/2023 Active Psyllium (20 sources) Start: 022 Start: 09-07-2022 Metamucil Acti ve September 07, 2022 1:00am Check with primary doctor Start: 09-07-2022 Metamucil Acti ve September 07, 2022 1:00am Start: 09-07-2022 Metamucil Acti ve September 07, 2022 12:00am Start: 02-13-2006 METAMUCIL SMOO TH TEXTURE PACKET one tablespoon in the am with a full glass of water and one tablespoon again in the pm again with a full glass of water daily. 0 02/13/2006 Active psyllium (Metamu cil Fiber) 51.7 % packet Take by mouth. 0 Active Comment on above: one tablespoon in th e am with a full glass of water and one tablespoon again in the pm again with a full glass of water daily. sodium chloride 0.111 meq/ml nasal spray (20 sources) Start: take 2 spray(s) nasal route twice daily SALINE MIST 0.65 % NASAL SPRAY AEROSOL Indications: Acute sinusitis, unspecified Two sprays each nostril twice daily. 0 0 10/15/2005 Active Comment on above: Two sprays each nost ril twice daily. sulfamethoxazole 800 mg / trimethoprim 160 mg oral tablet (5 sources) Dihydrofolate Reductase Inhibitor Antibacterial, Sulfonamide Antimicrobial Start: End: take 1 tablet by mouth twice daily at mealtime sulfamethoxazole-t rimethoprim (BACTRIM DS) 800-160 mg per tablet Take 1 tablet by mouth two times a day for 5 days. Take with food 10 tablet 08/07/2024 08/12/2024 Active Start: 09-18-2022 End: 09-28-2022 take 1 tablet by mouth twice daily sulfamethoxazole-trimethoprim (BACTRIM D S) 800-160 mg per tablet Indications: Acute cystitis with hematuria Take 1 tablet by mouth twice daily for 10 days. 20 tablet 0 09/18/2022 09/28/2022 Active Comment on above: Take 1 tablet by mary twice daily for 10 days. Completed/Discontinued Medications Medication Drug Class(es) Dates Sig (Normalized) Sig (Original) acetaminophen 325 mg / HYDROcodone bitartrate 5 mg oral tablet (19 sources) Opioid Agonist Start: 09-03-2023 End: 09-10-2023 take 1 tablet by mouth three times daily as needed for pain HYDROcodone-aceta minophen (NORCO) 5-325 mg per tablet Indications: Rib injury , Rib pain on right side Take 1 tablet by mouth three times a day as needed for pain for up to 7 days. 21 tablet 09/03/2023 09/10/2023 Start: 11-16-2022 End: 12-01-2022 take 1 tablet by mouth three times daily as needed for pain HYDROcodone-acetaminophen (NORCO) 5-325 mg per tablet Indications: Chronic right shoulder pain Take 1 tablet by mouth three times daily as needed for pain for up to 7 days. 21 tablet 0 11/16/2022 11/24/2022 Discontinued Start: 10-03-2016 take 1 tablet by mary th every six hours as needed Hydrocodone-Acetaminophen Active 1 TABLE T PO EVERY 6 HOURS NEEDED October 03, 2016 1:00am Start: 12-07-2015 End: 12-14-2015 Hydrocodone-Acetaminophen 1 TABLET tablet Discontinued 1 {tbl} PO EVERY 4 HOURS NEEDED as needed for Pain December 07, 2015 12:00am December 14, 2015 8:44am Start: 12-07-2015 End: 12-14-2015 take 1 tablet by mouth every four hours as needed Hydrocodone-Acetaminophen Discontinued 1 TABLET PO EVERY 4 HOURS NEEDED December 07, 2015 12:00am December 14, 2015 8:44am Comment on above: Take 1 tablet by mary th three times daily as needed for pain for up to 7 days. Take 1-2 tablets by mouth three times daily as needed for pain for up to 7 days. amoxicillin 875 mg / clavulanate 125 mg oral tablet (8 sources) Penicillin-class Antibacterial Start: 023 End: take 1 tablet by mouth every twelve hours Amoxicillin-Pot Clavulanate 875-125 mg tablet Discontinued 875 mg PO Q12H 10 April 29, 2023 12:00am March 18, 2025 10:08am cephalexin 500 mg oral capsule (9 sources) Cephalosporin Antibacterial Start: 022 End: take 1 capsule by mouth twice daily Cephalexin 500 mg capsule Discontinued 500 mg PO TWICE A DAY September 08, 2022 1:00am March 18, 2025 10:08am cholecalciferol 0.025 mg oral tablet (20 sources) Vitamin D End: 024 cholecalciferol (VITAMIN D3) 1,000 unit tab tablet Take 185 mg by mouth once daily. 12/31/2023 Discontinued take 1 tablet by mouth in the mo rning cholecalciferol (Vitamin D-[address]) 25 MCG (1000 UT) tablet Take 25 mcg by mouth in the morning. 0 Active Comment on above: Take 185 mg by mouth once daily. 2 ml ketorolac tromethamine 30 mg/ml injection (2 sources) Nonsteroidal Anti-inflammatory Drug, Cyclooxygenase Inhibitor Start: 05-14-2024 End: 05-14-2024 keTORolac 60 mg injection (Toradol) Start: 05-14-2024 End: 05-14-2024 60 mg, INTRAMUSCULAR, ONCE, 1 dose, On Dot 05/14/24 at 1530, Ketorolac (Toradol) is indicated for the short-term (up to 5 days) management of moderately severe acute pain. Continuation of ketorolac (Toradol) beyond 5 days increases the risk of developing serious adverse events. Please verify the duration of therapy for ketorolac (Toradol)., If ordered PRN for pain, patient/guardian may elect to receive this medication for higher pain levels INSTEAD of the opioid, if preferred: Yes Problems Active Problems Problem Classification Problem Date Documented Da te Episodic/Chronic Anxiety disorders (20 sources) Anxiety state; Translations: [Generalized anxiety disorder] Onset: 5 01-31-2006 Chronic Chronic ulcer of skin (20 sources) Chronic non-pressure ulcer of calf extending to fat level; Translations: [Non-pressure chronic ulcer of left calf with fat layer exposed] Onset: 5 02-02-2025 Chronic Diabetes mellitus without complication (2 sources) Abnormal glucose level; Translations: [Other abnormal glucose] Onset: 5 05-04-2025 Episodic Disorders of lipid metabolism (5 sources) Hypercholesterolemia; Translations: [Pure hypercholesterolemia, unspecified] Onset: 5 Chronic Esophageal disorders (20 sources) Gastroesophageal reflux disease; Translations: [Gastro-esophageal reflux disease without esophagitis] Onset: 0 09-04-2021 Chronic Esophageal disorders (1 source) Esophageal disorders; Translations: [Gastroesophageal reflux disease with esophagitis, unspecified whether hemorrhage] Onset: 1 Essential hypertension (8 sources) Essential hypertension; Translations: [Essential (primary) hypertension] 08-01-2024 Chronic Fluid and electrolyte disorders (13 sources) Hypokalemia; Translations: [Hypokalemia] Onset: 2 Episodic Fracture of lower limb (20 sources) Fracture of shaft of femur; Translations: [Unspecified fracture of shaft of right femur, initial encounter for closed fracture] Onset: 6 12-08-2015 Episodic Fracture of upper limb (3 sources) Closed fracture of neck of fifth metacarpal bone; Translations: [Nondisplaced fracture of neck of fifth metacarpal bone, left hand, initial encounter for closed fracture] Episodic Gastrointestinal hemorrhage (1 source) Hemorrhage of anus and rectum; Translations: [Rectal bleeding] Onset: 5 Episodic Headache; including migraine (3 sources) Headache disorder; Translations: [Other headache syndrome] 03-26-2023 Episodic Immunizations and screening for infectious disease (12 sources) Contact with or exposure to other viral diseases; Translations: [Exposure to COVID-19 virus] Onset: 5 Episodic Malaise and fatigue (14 sources) Fatigue; Translations: [Other fatigue] Onset: 2 Episodic Mood disorders (20 sources) Depressive disorder; Translations: [Depression] Onset: 5 07-23-2019 Chronic Nutritional deficiencies (5 sources) Vitamin D deficiency; Translations: [Vitamin D deficiency, unspecified] Onset: 5 Chronic Open wounds of extremities (20 sources) Laceration of lower limb; Translations: [Laceration without foreign body, left lower leg, initial encounter] Onset: 5 05-29-2021 Episodic Osteoporosis (20 sources) Osteoporosis; Translations: [Age-related osteoporosis without current pathological fracture] Onset: 5 05-27-2017 Chronic Other aftercare (3 sources) Patient encounter status; Translations: [Other salvage determiner (current) drug therapy] Episodic Other aftercare (1 source) Long-term current use of mesalamine; Translations: [Other salvage determiner (current) drug therapy] Episodic Other aftercare (2 sources) Removal of sutures done; Translations: [Encounter for removal of sutures] 05-06-2023 Episodic Other aftercare (1 source) Long-term current use of drug therapy; Translations: [Other salvage determiner (current) drug therapy] 06-24-2024 Episodic Other bone disease and musculoskeletal deformities (12 sources) Nonunion of fracture; 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] 09-30-2016 Episodic Other circulatory disease (20 sources) Raynaud's disease; Translations: [Raynaud's syndrome without gangrene] Onset: 7 07-31-2015 Chronic Other circulatory disease (20 sources) Raynaud's phenomenon; Translations: [Raynaud's syndrome without gangrene] Onset: 4 09-30-2016 Chronic Other circulatory disease (2 sources) Raynaud's syndrome without gangrene; Translations: [Raynaud's syndrome without gangrene] Onset: 5 Chronic Other connective tissue disease (2 sources) Presence of other bone and tendon implants; Translations: [Presence of other bone and tendon implants] Onset: 5 Chronic Other connective tissue disease (1 source) Pain in right hand; Translations: [Pain in right hand] 08-07-2023 Episodic Other connective tissue disease (1 source) Pain of left hand; Translations: [Pain in left hand] 11-25-2021 Episodic Other connective tissue disease (4 sources) Pain in left lower limb; Translations: [Pain in left leg] 03-18-2025 Episodic Other eye disorders (2 sources) Cataract extraction status, unspecified eye; Translations: [Cataract extraction status, unspecified eye] Onset: 5 Episodic Other fractures (12 sources) Closed fracture of vertebral column; Translations: [Closed fracture of vertebra] 10-01-2016 Episodic Other fractures (13 sources) Fracture of pelvis; Translations: [Fracture of unspecified parts of lumbosacral spine and pelvis, initial encounter for closed fracture] Onset: 4 09-30-2016 Episodic Other fractures (1 source) Closed fracture of multiple ribs; Translations: [Multiple fractures of ribs, right side, subsequent encounter for fracture with routine healing] Episodic Other fractures (1 source) Compression fracture of lumbar spine; Translations: [Wedge compression fracture of fourth lumbar vertebra, subsequent encounter for fracture with routine healing] 03-22-2025 Episodic Other gastrointestinal disorders (20 sources) Irritable bowel syndrome; Translations: [Irritable bowel syndrome without diarrhea] Onset: 5 01-31-2006 Chronic Other injuries and conditions due to external causes (1 source) Abrasion; Translations: [Other injury of unspecified body region, initial encounter] 05-06-2023 Episodic Other injuries and conditions due to external causes (1 source) Injury of ribs; Translations: [Unspecified injury of thorax, initial encounter] 09-03-2023 Episodic Other injuries and conditions due to external causes (7 sources) Hematoma; Translations: [Other injury of unspecified body region, initial encounter] 04-03-2024 Episodic Other injuries and conditions due to external causes (20 sources) Avulsion - injury; Translations: [Other injury of unspecified body region, initial encounter] 01-08-2025 Episodic Other injuries and conditions due to external causes (4 sources) Compression fracture ; Translations: [Fracture of unspecified bone, closed] 03-18-2025 Episodic Other injuries and conditions due to external causes (2 sources) Personal history of (healed) traumatic fracture; Translations: [Personal history of (healed) traumatic fracture] Onset: 5 Episodic Other lower respiratory disease (2 sources) Chronic cough; Translations: [Chronic cough] Episodic Other lower respiratory disease (4 sources) Rib pain; Translations: [Pleurodynia] Episodic Other lower respiratory disease (1 source) Cough; Translations: [Acute cough] 08-07-2022 Episodic Other nervous system disorders (20 sources) Carpal tunnel syndrome; Translations: [Carpal tunnel syndrome, unspecified upper limb] Onset: 6 06-04-2006 Chronic Other nervous system disorders (1 source) Other chronic pain; Translations: [Chronic midline low back pain without sciatica] Onset: 5 Chronic Other nervous system disorders (1 source) Numbness of hand; Translations: [Anesthesia of skin] Episodic Other nervous system disorders (11 sources) Slurred speech; Translations: [Slurred speech] Onset: 4 09-10-2022 Episodic Other nervous system disorders (2 sources) Slurred speech; Translations: [Other speech disturbance] Episodic Other nervous system disorders (11 sources) Toxic metabolic encephalopathy; Translations: [Toxic metabolic encephalopathy] Onset: 2 Episodic Other nervous system disorders (4 sources) Paresthesia of hand ; Translations: [Anesthesia of skin] Episodic Other non-traumatic joint disorders (1 source) Thumb joint locking; Translations: [Other specific joint derangements of unspecified hand, not elsewhere classified] 03-26-2023 Chronic Other non-traumatic joint disorders (1 source) Shoulder pain; Translations: [Pain in unspecified shoulder] Episodic Other non-traumatic joint disorders (1 source) Pain in left knee; Translations: [Pain in joint, lower leg] Episodic Other non-traumatic joint disorders (1 source) Hip pain; Translations: [Pain in left hip] 03-22-2025 Episodic Other nutritional; endocrine; and metabolic disorders (1 source) Hypervitaminosis D; Translations: [Hypervitaminosis D] Chronic Other nutritional; endocrine; and metabolic disorders (20 sources) Wtdo-lzft-aihxeyqteold patrice; Translations: [Lipoprotein deficiency] Onset: 4 12-08-2015 Chronic Other nutritional; endocrine; and metabolic disorders (2 sources) Lipoprotein deficiency; Translations: [Lipoprotein deficiency] Onset: 5 Chronic Other screening for suspected conditions (not mental disorders or infectious disease) (20 sources) Mammography abnormal; Translations: [Other abnormal and inconclusive findings on diagnostic imaging of breast] Onset: 5 12-30-2014 Episodic Other skin disorders (1 source) Nodule on finger; Translations: [Localized swelling, mass and lump, right upper limb] 03-26-2023 Episodic Other skin disorders (7 sources) Lump on finger; Translations: [Localized swelling, mass and lump, right upper limb] Onset: 4 08-12-2023 Episodic Other skin disorders (2 sources) Localized swelling, mass and lump, right upper limb; Translations: [Localized swelling, mass and lump, right upper limb] Onset: 4 Episodic Regional enteritis and ulcerative colitis (20 sources) Crohn's disease of large bowel; Translations: [Crohn's disease of large intestine without complications] Onset: 5 01-31-2006 Chronic Residual codes; unclassified (3 sources) Orthopedic hardware in situ; Translations: [Presence of functional implant, unspecified] Onset: 4 08-29-2023 Chronic Residual codes; unclassified (2 sources) Presence of functional implant, unspecified; Translations: [Presence of functional implant, unspecified] Onset: 4 Chronic Residual codes; unclassified (1 source) H/O: fracture; Translations: [Other specified postprocedural states] Episodic Residual codes; unclassified (20 sources) History of operation on musculoskeletal system; Translations: [Other specified postprocedural states] 09-30-2016 Episodic Comment on above: R femoral fx. Residual codes; unclassified (11 sources) Acute confusion; Translations: [Disorientation, unspecified] Onset: 2 09-10-2022 Episodic Residual codes; unclassified (2 sources) Disorientation, unspecified; Translations: [Delirium due to conditions classified elsewhere] Episodic Residual codes; unclassified (2 sources) Postmenopausal state; Translations: [Asymptomatic menopausal state] 06-24-2024 Episodic Residual codes; unclassified (20 sources) History of ankle surgery; Translations: [Other specified postprocedural states] 01-08-2025 Episodic Residual codes; unclassified (2 sources) Other specified postprocedural states; Translations: [Other specified postprocedural states] Onset: 5 Episodic Spondylosis; intervertebral disc disorders; other back problems (3 sources) Degeneration of lumbar intervertebral disc; Translations: [Degeneration of intervertebral disc of lumbar region with discogenic back pain] Onset: 5 06-24-2024 Chronic Spondylosis; intervertebral disc disorders; other back problems (17 sources) Backache; Translations: [Dorsalgia, unspecified] Onset: 4 09-30-2016 Episodic Sprains and strains (10 sources) Rupture flexor pollicis longus; Translations: [Strain of flexor muscle, fascia and tendon of unspecified thumb at forearm level, initial encounter] Onset: 4 08-12-2023 Episodic Thyroid disorders (20 sources) Hypothyroidism; Translations: [Hypothyroidism, unspecified] Onset: 4 01-29-2014 Chronic Unclassified (1 source) APPOINTMENT CANCELLED Unclassified (1 source) Patient encounter status 05-04-2025 Unclassified (1 source) Chronic midline low back pain without sciatica; Translations: [Chronic midline low back pain without sciatica] Onset: 5 Past or Other Problems Problem Classification Problem Date Documented Date Episodic/Chronic Acute bronchitis (20 sources) Acute bronchitis; Translations: [Acute bronchitis, unspecified] Onset: 10-10-2006 Resolved: 12-31-2023 10-10-2006 Episodic Allergic reactions (20 sources) Solar degeneration; Translations: [Other skin changes due to chronic exposure to nonionizing radiation] Onset: 06-27-2010 06-27-2010 Episodic E Codes: Fall (8 sources) Fall from bed, initial encounter; Translations: [Accidental fall from bed] Onset: 03-22-2025 09-03-2023 Episodic Genitourinary symptoms and ill-defined conditions (4 sources) Increased frequency of urination; Translations: [Frequency of micturition] Onset: 07-27-2024 Episodic Open wounds of extremities (20 sources) Tear of skin; Translations: [Laceration without foreign body, right lower leg, initial encounter] Onset: 01-09-2024 06-04-2022 Episodic Other aftercare (1 source) Encounter for removal of sutures; Translations: [Visit for suture removal] Onset: 03-22-2025 Episodic Other aftercare (1 source) Encounter for therapeutic drug level monitoring; Translations: [Encounter for therapeutic drug monitoring] Onset: 01-29-2025 Episodic Other aftercare (1 source) Other salvage determiner (current) drug therapy; Translations: [Encounter for long-term current use of medication] Onset: 12-17-2024 Episodic Other and unspecified benign neoplasm (20 sources) Melanocytic nevus of scalp; Translations: [Melanocytic nevi of scalp and neck] Onset: 06-27-2010 06-27-2010 Episodic Other connective tissue disease (1 source) Muscle weakness; Translations: [Muscle weakness (generalized)] Onset: 10-04-2016 01-09-2024 Episodic Other connective tissue disease (2 sources) Pain in right hand; Translations: [Pain in right hand] Onset: 08-12-2023 Episodic Other connective tissue disease (1 source) Pain in left thigh; Translations: [Pain in left thigh] Onset: 03-25-2025 Episodic Other fractures (1 source) Fracture of superior pubic ramus; Translations: [Fracture of superior rim of right pubis, subsequent encounter for fracture with routine healing] Onset: 10-04-2016 01-09-2024 Episodic Other fractures (1 source) Wedge compression fracture of fourth lumbar vertebra, subsequent encounter for fracture with routine healing; Translations: [Compression fracture of L4 vertebra with routine healing, subsequent encounter] Onset: 03-22-2025 Episodic Other injuries and conditions due to external causes (3 sources) Other injury of unspecified body region, initial encounter; Translations: [Other injury of unspecified body region, initial encounter] Onset: 01-29-2025 Episodic Other injuries and conditions due to external causes (1 source) Unspecified injury of right lower leg, initial encounter; Translations: [Unspecified injury of right lower leg, initial encounter] Onset: 03-19-2025 Episodic Other nervous system disorders (1 source) Incoordination; Translations: [Unspecified lack of coordination] Onset: 10-04-2016 01-09-2024 Episodic Other nervous system disorders (20 sources) Abnormal gait; Translations: [Unsteadiness on feet] Onset: 07-17-2024 07-17-2024 Episodic Other nervous system disorders (1 source) Unsteadiness on feet; Translations: [Gait instability] Onset: 07-17-2024 Episodic Other non-traumatic joint disorders (20 sources) Chronic pain of right upper limb; Translations: [Pain in right shoulder] Onset: 07-27-2019 07-27-2019 Episodic Other non-traumatic joint disorders (1 source) Pain in left hip; Translations: [Acute pain of left hip] Onset: 03-22-2025 Episodic Other skin disorders (20 sources) Seborrheic keratosis; Translations: [Other seborrheic keratosis] Onset: 06-27-2010 06-27-2010 Episodic Other skin disorders (20 sources) Solar lentigo; Translations: [Other melanin hyperpigmentation] Onset: 06-27-2010 06-27-2010 Episodic Other upper respiratory disease (20 sources) Congestion of nasal sinus; Translations: [Nasal congestion] Onset: 09-12-2013 Resolved: 12-31-2023 09-12-2013 Episodic Residual codes; unclassified (1 source) Asymptomatic menopausal state; Translations: [Asymptomatic postmenopausal status] Onset: 08-17-2024 Episodic Urinary tract infections (8 sources) Urinary tract infectious disease; Translations: [Urinary tract infection, site not specified] Onset: 07-27-2024 Episodic Results Test Name Value Interpretation Reference Range Facility CBC W Auto Differential pane l (Bld)on 06-23-2025 Basophils (Bld) [#/Vol] 0.05 10*3/uL Normal <0.11 [facility] Comment on above: Order Comment: Speci men Type: BLOOD SPECIMEN Ordering Facility: [facility] Address: [address] [place] [address] Performed By: #### 2 4321-2 #### [facility] CLIA [id number] [address] [place] [address] [place] Basophils/100 WBC (Bld) 0.5 % Normal [facility] Comment on above: Order Comment: Speci men Type: BLOOD SPECIMEN Ordering Facility: [facility] Address: [address] [place] [address] Performed By: #### 2 4321-2 #### [facility] CLIA [id number] [address] [place] [address] [place] Differential cell count method Nom (Bld) Auto Normal [facility] Comment on above: Order Comment: Speci men Type: BLOOD SPECIMEN Ordering Facility: [facility] Address: [address] [place] [address] Performed By: #### 2 4321-2 #### [facility] CLIA [id number] [address] [place] [address] [place] Eosinophils (Bld) [#/Vol] 0.03 10*3/uL Normal <0.46 [facility] Comment on above: Order Comment: Speci men Type: BLOOD SPECIMEN Ordering Facility: [facility] Address: [address] [place] [address] Performed By: #### 2 4321-2 #### [facility] CLIA [id number] [address] [place] [address] [place] Eosinophils/100 WBC (Bld) 0.3 % Normal [facility] Comment on above: Order Comment: Speci men Type: BLOOD SPECIMEN Ordering Facility: [facility] Address: [address] [place] [address] Performed By: #### 2 4321-2 #### [facility] CLIA [id number] [address] [place] [address] [place] Erythrocyte distribution width (RBC) [Ratio] 13.2 % Normal 11.5-15.0 [facility] Comment on above: Order Comment: Speci men Type: BLOOD SPECIMEN Ordering Facility: [facility] Address: [address] [place] [address] Performed By: #### 2 4321-2 #### [facility] CLIA [id number] [address] [place] [address] [place] Hematocrit (Bld) [Volume fraction] 49.5 % High 36.0-46.0 [facility] Comment on above: Order Comment: Speci men Type: BLOOD SPECIMEN Ordering Facility: [facility] Address: [address] [place] [address] Performed By: #### 2 4321-2 #### [facility] CLIA [id number] [address] [place] [address] [place] Hemoglobin (Bld) [Mass/Vol] 16.6 g/dL High 11.5-15.5 [facility] Comment on above: Order Comment: Speci men Type: BLOOD SPECIMEN Ordering Facility: [facility] Address: [address] [place] [address] Performed By: #### 2 4321-2 #### [facility] CLIA [id number] [address] [place] [address] [place] Immature granulocytes (Bld) [#/Vol] 10*3/uL Normal <0.10 [facility] Comment on above: Order Comment: Speci men Type: BLOOD SPECIMEN Ordering Facility: [facility] Address: [address] [place] [address] Performed By: #### 2 4321-2 #### [facility] CLIA [id number] [address] [id number] [address] [place] Immature granulocytes/100 WBC (Bld) 0.2 % Normal [facility] Comment on above: Order Comment: Speci men Type: BLOOD SPECIMEN Ordering Facility: [facility] Address: [address] [place] [address] Performed By: #### 2 4321-2 #### [facility] CLIA [id number] [address] [place] [address] [place] Lymphocytes (Bld) [#/Vol] 1.03 10*3/uL Normal 1.00-4.00 [facility] Comment on above: Order Comment: Speci men Type: BLOOD SPECIMEN Ordering Facility: [facility] Address: [address] [place] [address] Performed By: #### 2 4321-2 #### [facility] CLIA [id number] [address] [place] [address] [place] Lymphocytes/100 WBC (Bld) 10.1 % Normal [facility] Comment on above: Order Comment: Speci men Type: BLOOD SPECIMEN Ordering Facility: [facility] Address: [address] [place] [address] Performed By: #### 2 4321-2 #### [facility] CLIA [id number] [address] [place] [address] [place] MCH (RBC) [Entitic mass] 31.1 pg Normal 26.0-34.0 [facility] Comment on above: Order Comment: Speci men Type: BLOOD SPECIMEN Ordering Facility: [facility] Address: [address] [place] [address] Performed By: #### 2 4321-2 #### [facility] CLIA [id number] [address] [place] [address] [place] MCHC (RBC) [Mass/Vol] 33.5 g/dL Normal 30.5-36.0 [facility] Comment on above: Order Comment: Speci men Type: BLOOD SPECIMEN Ordering Facility: [facility] Address: [address] [place] [address] Performed By: #### 2 4321-2 #### [facility] CLIA [id number] [address] [place] [address] [place] MCV (RBC) [Entitic vol] 92.7 fL Normal 80.0-100.0 [facility] Comment on above: Order Comment: Speci men Type: BLOOD SPECIMEN Ordering Facility: [facility] Address: [address] [place] [address] Performed By: #### 2 4321-2 #### [facility] CLIA [id number] [address] [place] [address] [place] Monocytes (Bld) [#/Vol] 0.57 10*3/uL Normal <0.87 [facility] Comment on above: Order Comment: Speci men Type: BLOOD SPECIMEN Ordering Facility: [facility] Address: [address] [place] [address] Performed By: #### 2 4321-2 #### [facility] CLIA [id number] [address] [place] [address] [place] Monocytes/100 WBC (Bld) 5.6 % Normal [facility] Comment on above: Order Comment: Speci men Type: BLOOD SPECIMEN Ordering Facility: [facility] Address: [address] [place] [address] Performed By: #### 2 4321-2 #### [facility] CLIA [id number] [address] [place] [address] [place] Neutrophils (Bld) [#/Vol] 8.47 10*3/uL High 1.45-7.50 [facility] Comment on above: Order Comment: Speci men Type: BLOOD SPECIMEN Ordering Facility: [facility] Address: [address] [place] [address] Performed By: #### 2 4321-2 #### [facility] CLIA [id number] [address] [place], [place] [id number] [place] Neutrophils/100 WBC (Bld) 83.3 % Normal [facility] Comment on above: Order Comment: Speci men Type: BLOOD SPECIMEN Ordering Facility: [facility] Address: [address] [place] [address] Performed By: #### 2 4321-2 #### [facility] CLIA [id number] [address] [place] [address] [place] Nucleated RBC (Bld) [#/Vol] 10*3/uL Normal <0.01 [facility] Comment on above: Order Comment: Speci men Type: BLOOD SPECIMEN Ordering Facility: [facility] Address: [address] [place] [address] Performed By: #### 2 4321-2 #### [facility] CLIA [id number] [address] [place] [address] [place] Nucleated RBC/100 WBC (Bld) [Ratio] 0.0 /100 WBC Normal [facility] Comment on above: Order Comment: Speci men Type: BLOOD SPECIMEN Ordering Facility: [facility] Address: [address] [place] [address] Performed By: #### 2 4321-2 #### [facility] CLIA [id number] [address] [place] [address] [place] Platelet mean volume (Bld) [Entitic vol] 10.1 fL Normal 9.0-12.7 [facility] Comment on above: Order Comment: Speci men Type: BLOOD SPECIMEN Ordering Facility: [facility] Address: [address] [place] [address] Performed By: #### 2 4321-2 #### [facility] CLIA [id number] [address] [place] [address] [place] Platelets (Bld) [#/Vol] 237 10*3/uL Normal 150-400 [facility] Comment on above: Order Comment: Speci men Type: BLOOD SPECIMEN Ordering Facility: [facility] Address: [address] [place] [address] Performed By: #### 2 4321-2 #### [facility] CLIA [id number] [address] [place] [address] [place] RBC (Bld) [#/Vol] 5.34 10*6/uL High 3.90-5.20 [facility] Comment on above: Order Comment: Speci men Type: BLOOD SPECIMEN Ordering Facility: [facility] Address: [address] [place] [address] Performed By: #### 2 4321-2 #### [facility] CLIA [id number] [address] [place] [address] [place] WBC (Bld) [#/Vol] 10.17 10*3/uL Normal 3.70-11.00 [facility] Comment on above: Order Comment: Speci men Type: BLOOD SPECIMEN Ordering Facility: [facility] Address: [address] [place] [address] Performed By: #### 2 4321-2 #### [facility] CLIA [id number] [address] [place] [address] [place] CRP SerPl-mCncon 06-23-2025 CRP [Mass/Vol] mg/L Normal <0.9 [facility] Comment on above: Order Comment: Speci men Type: BLOOD SPECIMEN Ordering Facility: [facility] Address: [address] [place] [address] Performed By: #### 2 4321-2 #### [facility] CLIA [id number] [address] [place] [address] [place] Comprehensive metabolic 2000 panelon 06-23-2025 Albumin [Mass/Vol] 4.7 g/dL Normal 3.9-4.9 [facility] Comment on above: Order Comment: Speci men Type: BLOOD SPECIMEN Ordering Facility: [facility] Address: [address] [place] [address] Performed By: #### 2 4321-2 #### [facility] CLIA [id number] [address] [place] [id number] [place] ALP [Catalytic activity/Vol] 46 U/L Normal 34-123 [facility] Comment on above: Order Comment: Speci men Type: BLOOD SPECIMEN Ordering Facility: [facility] Address: [address] [place] [address] Performed By: #### 2 4321-2 #### [facility] CLIA [id number] [address] [place], [place] [id number] [place] ALT [Catalytic activity/Vol] 21 U/L Normal 7-38 [facility] Comment on above: Order Comment: Speci men Type: BLOOD SPECIMEN Ordering Facility: [facility] Address: [address] [place] [address] Performed By: #### 2 4321-2 #### [facility] CLIA [id number] [address] [place], [place] [address] [place] Anion gap [Moles/Vol] 15 mmol/L Normal 8-15 [facility] Comment on above: Order Comment: Speci men Type: BLOOD SPECIMEN Ordering Facility: [facility] Address: [address] [place] [address] Performed By: #### 2 4321-2 #### [facility] CLIA [id number] [address] [place], [place] [address] [place] AST [Catalytic activity/Vol] 22 U/L Normal 13-35 [facility] Comment on above: Order Comment: Speci men Type: BLOOD SPECIMEN Ordering Facility: [facility] Address: [address] [place], [place] [address] Performed By: #### 2 4321-2 #### [facility] CLIA [id number] [address] [place], [place] [address] [place] Bilirubin [Mass/Vol] 0.3 mg/dL Normal 0.2-1.3 [facility] Comment on above: Order Comment: Speci men Type: BLOOD SPECIMEN Ordering Facility: [facility] Address: [address] [place] [address] Performed By: #### 2 4321-2 #### [facility] CLIA [id number] [address] [place] [address] [place] Calcium [Mass/Vol] 9.7 mg/dL Normal 8.5-10.2 [facility] Comment on above: Order Comment: Speci men Type: BLOOD SPECIMEN Ordering Facility: [facility] Address: [address] [place] [address] Performed By: #### 2 4321-2 #### [facility] CLIA [id number] [address] [place] [address] [place] Chloride [Moles/Vol] 105 mmol/L Normal 98-107 [facility] Comment on above: Order Comment: Speci men Type: BLOOD SPECIMEN Ordering Facility: [facility] Address: [address] [place] [address] Performed By: #### 2 4321-2 #### [facility] CLIA [id number] [address] [place] [address] [place] CO2 [Moles/Vol] 19 mmol/L Low 22-30 [facility] Comment on above: Order Comment: Speci men Type: BLOOD SPECIMEN Ordering Facility: [facility] Address: [address] [place] [address] Performed By: #### 2 4321-2 #### [facility] CLIA [id number] [address] [place] [address] [place] Creatinine [Mass/Vol] 0.89 mg/dL Normal 0.58-0.96 [facility] Comment on above: Order Comment: Speci men Type: BLOOD SPECIMEN Ordering Facility: [facility] Address: [address] [place] [address] Performed By: #### 2 4321-2 #### [facility] CLIA [id number] [address] [place] [address] [place] eGFRcr SerPlBld CKD-EPI 2020 68 mL/min/1.73m??? Normal >=60 [facility] Comment on above: Order Comment: Alejandra martin Type: BLOOD SPECIMEN Ordering Facility: [facility] Address: [address] [place] [address] Result Comment: Maryjane mated Glomerular Filtration Rate (eGFR) is calculated using the 2020 CKD-EPI creatinine equation. This equation utilizes serum creatinine, sex, and age as parameters. The creatinine assay has traceable calibration to isotope dilution-mass spectrometry. Refer to KDIGO guidelines for clinical interpretation. In patients with unstable renal function, e.g. those with acute kidney injury, the eGFR may not accurately reflect actual GFR. Performed By: #### 2 4321-2 #### [facility] CLIA [id number] [address] [place] [address] [place] Glucose [Mass/Vol] 105 mg/dL High 74-99 [facility] Comment on above: Order Comment: Alejandra martin Type: BLOOD SPECIMEN Ordering Facility: [facility] Address: [address] [place] [address] Result Comment: The [place] [employer] (ADA) provides guidance for cutoff values for fasting glucose and random glucose. The ADA defines fasting as no caloric intake for at least 8 hours. Fasting plasma glucose results between 100 to 125 mg/dL indicate increased risk for diabetes (prediabetes). Fasting plasma glucose results greater than or equal to 126 mg/dL meet the criteria for diagnosis of diabetes. In the absence of unequivocal hyperglycemia, results should be confirmed by repeat testing. In a patient with classic symptoms of hyperglycemia or hyperglycemic crisis, random plasma glucose results greater than or equal to 200 mg/dL meet the criteria for diagnosis of diabetes. Reference: Standards of Medical Care in Diabetes 2016, [place] [employer]. Diabetes Care. 2016.39(Suppl 1). Performed By: #### 2 4321-2 #### [facility] CLIA [id number] [address] [place], [place] [address] [place] Potassium [Moles/Vol] 3.9 mmol/L Normal 3.7-5.1 [facility] Comment on above: Order Comment: Speci men Type: BLOOD SPECIMEN Ordering Facility: [facility] Address: [address] [place] [address] Performed By: #### 2 4321-2 #### [facility] CLIA [id number] [address] [place] [address] [place] Protein [Mass/Vol] 7.5 g/dL Normal 6.3-8.0 [facility] Comment on above: Order Comment: Speci men Type: BLOOD SPECIMEN Ordering Facility: [facility] Address: [address] [place] [address] Performed By: #### 2 4321-2 #### [facility] CLIA [id number] [address] [place] [address] [place] Sodium [Moles/Vol] 139 mmol/L Normal 136-144 [facility] Comment on above: Order Comment: Speci men Type: BLOOD SPECIMEN Ordering Facility: [facility] Address: [address] [place] [address] Performed By: #### 2 4321-2 #### [facility] CLIA [id number] [address] [place] [address] [place] Urea nitrogen [Mass/Vol] 17 mg/dL Normal 7-21 [facility] Comment on above: Order Comment: Speci men Type: BLOOD SPECIMEN Ordering Facility: [facility] Address: [address] [place] [address] Performed By: #### 2 4321-2 #### [facility] CLIA [id number] [address] [place] [address] [place] CNCOon 06-21-2025 CNCO Letter Text Normal [facility] History AND Physic vanessa 05-26-2025 Wound Ctr History & Physical [facility] [address] [place] [address] H P Exam - Wound Care 05/26/25 1349 MR#: [id number] Acct: [id number] Name: GERALDINE HAIRSTON Rep #: [id number] : 1950 74 From: Cedric Gibbons MD PCP: Dr. Chance Kolb MD Status:REG RCR Location: History of Present Illness Date of Service: 05/25/25 Chief Complaint: Traumatic avulsion injury of the right medial calf History of Wound: This is a 74-year-old female who sustained a traumatic injury to her left medial calf on January 01, 2025. At the time of her injury, she presented to the [facility] Emergency Department, where she was found to have an avulsion injury with a significant adherent cutaneous flap. The injury was caused by the nails of her dog, who had jumped off the couch. In the Emergency Department, the flap was sutured in place using seven 5-0 nylon sutures. The patient was placed on Keflex and Augmentin orally, and was discharged. The patient is generally healthy for her age, though has a history of hmtj-wqrb-nkwfcrrfuvjsvz a, GERD, hypertension, hypothyroidism, and osteoporosis. She denies a history of diabetes mellitus, myocardial infarction, cerebrovascular accident, renal disease, and pulmonary disease. Her BMI is 19.5. She is . Since the patient's initial presentation, the traumatic injury on her left calf has healed, and she has sustained a similar injury to the right medial calf, for which she remained a patient at the Wound Center. 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 left calf with fat layer exposed Traumatic open wound of lower leg Avulsion injury GERD (gastroesophageal reflux disease) HTN (hypertension) Hypothyroidism Depression Anxiety Home Medications ???Medication ???Instructions ???Recorded ???Last Taken ???Type levothyroxine 25 mcg tablet 25 mcg PO DAILY Check with primary 02/07/15 09/29/16 09:00 History doctor Bacillus coagulans-inulin 1 1 ea PO DAILY Check with primary 0 12/07/15 09/29/16 09:00 History billion cell-250 mg capsule doctor (Probiotic Formula (inulin)) gabapentin 100 mg capsule 600 mg PO BID Check with primary 0 12/07/15 09/29/16 21:00 History doctor nifedipine 60 mg tablet,extended 180 mg PO DAILY Check with primary 12/07/15 09/29/16 09:00 History release 24 hr doctor pantoprazole 20 mg tablet,delayed 20 mg PO DAILY STOMACHE 12/07/15 09/29/16 09:00 History release paroxetine HCl 25 mg 75 mg PO DAILY depression 12/07/15 09/29/16 09:00 History tablet,extended release 24 hr (Paxil CR) aspirin 325 mg tablet,delayed 325 mg PO DAILY HEART 04/26/16 09:00 History release buspirone 5 mg tablet 30 mg PO BID Check with primary 09/29/16 21:00 History doctor budesonide 3 mg 9 mg PO DAILY Check with primary 0 09/30/16 Unknown History capsule,delayed,extended release doctor (Entocort EC) lorazepam 0.5 mg tablet 0.5 mg PO Q6H PRN PRN Anxiety ##10 10/03/16 Unknown Rx dicyclomine 20 mg tablet 20 mg PO TID Check with primary Unknown History doctor Metamucil Check with primary doctor 09/07/22 Unknown History food supplemt, lactose-reduced 120 ml PO 4X/DAY Check with Unknown History 0.08 gram-1.5 kcal/mL oral liquid primary doctor (Ensure Enlive) loperamide 2 mg tablet 2 mg PO Q6H PRN Constipation 09/07 Unknown History omeprazole 40 mg PO/SL DAILY Check with 09/07 Unknown History primary doctor atorvastatin 80 mg tablet 20 mg (1/4 x 80 mg) PO QHS #30 tab s 09/08/22 Unknown Rx cyclobenzaprine 5 mg tablet 5 mg PO TID PRN muscle spasm #14 0 03/18/25 Unknown Rx tabs ondansetron 4 mg disintegrating 4 mg PO Q6H PRN nausea and 5 Unknown Rx tablet vomiting #20 tabs oxycodone-acetaminophen 5 mg-325 1 tab PO Q6H PRN pain 2 days #8 Unknown Rx mg tablet (Endocet) tabs Allergy/AdvReac Type Severity Reaction Status Date / Time acetaminophen (From Percocet) Allergy Other Verified 03/13/25 19:15 oxycodone (From Percocet) Allergy Other Verified 03/13/25 19:15 codeine AdvReac Nausea Verified 03/13/25 19:15 dizziness oxycodone HCl (From Percocet) AdvReac Nausea Verified 03/13/25 19:15 dizziness Family History Father Diabetes Dementia Surgical History S/P ORIF (open reduction internal fixation) fracture History of surgery on wrist History of cataract surgery History of ankle surgery Social History household members: none Smoking Status: Never smoker substance use ty (more content not included)... Normal [facility] SCREENINGon 05-24-2025 [facility] SCREENING * * *Final Report* * * DATE OF EXAM: May 24 2025 2:19PM [facility] 0581 - [facility] SCREENING / PROCEDURE REASON: Encounter for screening mammogram for malignant neoplasm of breast * * * * Physician Interpretation * * * * RESULT: [place] [address] #[id number] - [facility] SCREENING HISTORY: 74 year-old patient presents for screening. Patient is asymptomatic in both breasts. Patient states no personal history of breast cancer. The patient has a family history of breast cancer. COMPARISON STUDIES: The present examination has been compared to prior imaging studies dated 04/21/2019 (mammogram), 07/01/2020 (mammogram), 03/20/2022 (mammogram), 03/25/2023 (mammogram) and 03/27/2024 (mammogram). MAMMOGRAM TECHNIQUE: The study was acquired using full field digital technology and interpreted from soft copy. MAMMOGRAM FINDINGS: The breasts are heterogeneously dense, which may obscure small masses. There is a biopsy marker in the right breast. No suspicious masses, calcifications or other abnormalities are seen in either breast. IMPRESSION: There is no mammographic evidence of malignancy. Routine screening mammogram is recommended. Annual mammogram will be due in 1 year. BI-RADS Category 2: Benign RISK: Based on the Tyrer-Cuzick (TC) risk assessment model, this patient has a 3.3% lifetime risk of developing breast cancer, meaning they are at average risk for developing breast cancer. However, this is only an estimate based on available history provided on the patient's questionnaire. We encourage all patients to talk with their providers about these results, further recommendations for managing breast health, and appropriate supplemental screening options if the patient has dense breast tissue. Interpreting Radiologist: Cheryl Mcneal M.D. Electronically signed on: 05/26/2025 Prescription Clerk Lenses: AMALIA Transcribe Date/Time: May 24 2025 1:49P Dictated by: CHERYL MCNEAL MD This examination was interpreted and the report reviewed and electronically signed by: CHERYL MCNEAL MD on May 26 2025 5:26AM EST [id number] Normal [facility] History AND Physic vanessa 05-09-2025 Wound Ctr History & Physical [facility] [address] [place] [address] H P Exam - Wound Care 05/09/25 1703 MR#: [id number] Acct: [id number] Name: GERALDINE HAIRSTON Rep #: [id number] : 1950 74 From: Cedric Gibbons MD PCP: Dr. Chance Kolb MD Status:REG RCR Location: History of Present Illness Date of Service: 05/04/25 Chief Complaint: Traumatic avulsion injury of the right medial calf History of Wound: This is a 74-year-old female who sustained a traumatic injury to her left medial calf on January 01, 2025. At the time of her injury, she presented to the [facility] Emergency Department, where she was found to have an avulsion injury with a significant adherent cutaneous flap. The injury was caused by the nails of her dog, who had jumped off the couch. In the Emergency Department, the flap was sutured in place using seven 5-0 nylon sutures. The patient was placed on Keflex and Augmentin orally, and was discharged. The patient is generally healthy for her age, though has a history of tiwp-hctm-ldmupvrdysyoee a, GERD, hypertension, hypothyroidism, and osteoporosis. She denies a history of diabetes mellitus, myocardial infarction, cerebrovascular accident, renal disease, and pulmonary disease. Her BMI is 19.5. She is . Since the patient's initial presentation, the traumatic injury on her left calf has healed, and she has sustained a similar injury to the right medial calf, for which she remains a patient at the Wound Center. 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 left calf with fat layer exposed Traumatic open wound of lower leg Avulsion injury GERD (gastroesophageal reflux disease) HTN (hypertension) Hypothyroidism Depression Anxiety Home Medications ???Medication ???Instructions ???Recorded ???Last Taken ???Type levothyroxine 25 mcg tablet 25 mcg PO DAILY Check with primary 02/07/15 09/29/16 09:00 History doctor Bacillus coagulans-inulin 1 1 ea PO DAILY Check with primary 0 12/07/15 09/29/16 09:00 History billion cell-250 mg capsule doctor (Probiotic Formula (inulin)) gabapentin 100 mg capsule 600 mg PO BID Check with primary 0 12/07/15 09/29/16 21:00 History doctor nifedipine 60 mg tablet,extended 180 mg PO DAILY Check with primary 12/07/15 09/29/16 09:00 History release 24 hr doctor pantoprazole 20 mg tablet,delayed 20 mg PO DAILY STOMACHE 12/07/15 09/29/16 09:00 History release paroxetine HCl 25 mg 75 mg PO DAILY depression 12/07/15 09/29/16 09:00 History tablet,extended release 24 hr (Paxil CR) aspirin 325 mg tablet,delayed 325 mg PO DAILY HEART 04/26/16 09:00 History release buspirone 5 mg tablet 30 mg PO BID Check with primary 09/29/16 21:00 History doctor budesonide 3 mg 9 mg PO DAILY Check with primary 0 09/30/16 Unknown History capsule,delayed,extended release doctor (Entocort EC) lorazepam 0.5 mg tablet 0.5 mg PO Q6H PRN PRN Anxiety ##10 10/03/16 Unknown Rx dicyclomine 20 mg tablet 20 mg PO TID Check with primary Unknown History doctor Metamucil Check with primary doctor 09/07/22 Unknown History food supplemt, lactose-reduced 120 ml PO 4X/DAY Check with Unknown History 0.08 gram-1.5 kcal/mL oral liquid primary doctor (Ensure Enlive) loperamide 2 mg tablet 2 mg PO Q6H PRN Constipation 09/07 Unknown History omeprazole 40 mg PO/SL DAILY Check with 09/07 Unknown History primary doctor atorvastatin 80 mg tablet 20 mg (1/4 x 80 mg) PO QHS #30 tab s 09/08/22 Unknown Rx cyclobenzaprine 5 mg tablet 5 mg PO TID PRN muscle spasm #14 0 03/18/25 Unknown Rx tabs ondansetron 4 mg disintegrating 4 mg PO Q6H PRN nausea and 5 Unknown Rx tablet vomiting #20 tabs oxycodone-acetaminophen 5 mg-325 1 tab PO Q6H PRN pain 2 days #8 Unknown Rx mg tablet (Endocet) tabs Allergy/AdvReac Type Severity Reaction Status Date / Time acetaminophen (From Percocet) Allergy Other Verified 03/13/25 19:15 oxycodone (From Percocet) Allergy Other Verified 03/13/25 19:15 codeine AdvReac Nausea Verified 03/13/25 19:15 dizziness oxycodone HCl (From Percocet) AdvReac Nausea Verified 03/13/25 19:15 dizziness Family History Father Diabetes Dementia Surgical History S/P ORIF (open reduction internal fixation) fracture History of surgery on wrist History of cataract surgery History of ankle surgery Social History household members: none Smoking Status: Never smoker substance use typ (more content not included)... [facility] -------- YOVANNYGERALDINE Elin ([id number]) 1950 F Date Time Provider Department 05/04/25 3:20 PM NGUYỄN STRINEGR During your visit today, we recorded the following information about you: Pulse Respiration Blood pressure Weight 94/minute 16/minute 102/54 41.4 kg Height 1.42 m Nguyễn Stringer, MIMI.[employer]AD [employer] SUPERVISOR 05/04/2025 12:39 PM Signed Screening schedule The following prevention plan is recommended: Shingrix Vaccine(2 of 3) due on 06/19/2016 Medicare Annual Wellness Visit Never done Advance Directive Discussion due on 09/09/2024 RSV Vaccine(1 - 1-dose 75+ series) Never done Colorectal Cancer Screening due on 02/07/2025 WHAT YOU CAN DO TO PREVENT FALLS Many falls can be prevented. By making some changes, you can lower your chances of falling. Four things YOU can do to prevent falls for you* and your caregiver 1. Begin a regular exercise program Exercise is one of the most important ways to lower your chances of falling. It makes you stronger and helps you feel better. Exercises that improve balance and coordination (like Lamont Chi) are the most helpful. Lack of exercise leads to weakness and increases your chances of falling. Ask your doctor or health care provider about the best type of exercise program for you. 2. Have your health care provider review your medicines Have your doctor or pharmacist review all the medicines you take, even sccu-ofs-jtrfqhb medicines. As you get older, the way medicines work in your body can change. Some medicines, or combinations of medicines, can make you sleepy or dizzy and can cause you to fall. 3. Have your vision checked Have your eyes checked by an eye doctor at least once a year. You may be wearing the wrong glasses or have a condition like glaucoma or cataracts that limits your vision. Poor vision can increase your chances of falling. 4. Make your home safer About half of all falls happen at home. To make your home safer: Remove things you can trip over (like papers, books, clothes, and shoes) from stairs and places where you walk. Remove small throw rugs or use double-sided tape to keep the rugs from slipping. Keep items you use often in cabinets you can reach easily without using a step stool. Have grab bars put in next to your toilet and in the tub or shower. Use non-slip mats in the bathtub and on shower floors. Improve the lighting in your home. As you get older, you need brighter lights to see well. Hang light-weight curtains or shades to reduce glare. Have handrails and lights put in on all staircases. Wear shoes both inside and outside the house. Avoid going barefoot or wearing slippers. For more information, contact: Centers for Disease Control and Prevention www.cdc.gov/injury * This information may not apply if you have certain medical conditions. Nguyễn Stringer, MIMI.[employer] SUPERVISOR 05/04/2025 3:17 PM Signed Geraldine Hairston is a 74 year old female here for a Medicare wellness visit. Medicare Health Risk Assessment General Health Good Exercise: Minutes/Day 10 min Exercise: Days/Week 1 day Alcohol: Daily Use Never Alcohol: Drinks/Day Patient does not drink Alcohol: 6 or more drinks Never Feel off balance Yes Concerns: Teeth/Dentures No Concerns: Sexual function No Troubled by feelings None of the above Frequency: Eating healthy diet Nearly every day ADLs requiring help None of the above Safety precautions in home/vehicle Yes Smoke, vape, chews tobacco No Difficulty hearing Yes, I wear a hearing aid Difficulty seeing Yes Current Providers Specialists: I have reviewed specialist-related care of the patient in the medical record. Dr. Alin Altamirano Purchasing/Receiving Dr. Thom Swan at [facility] follow up. Medical/Family history review Reviewed and updated problem list, medical/surgical/family/ social history, medications, and allergies. Opioid use review Opioid Medications (last 90 days) No data to display Anxiety/Depression screening PHQ-2 Score: 1 (Lower risk for depression) Recommendation: no further intervention at this time Cognitive screening Mini Cog Score: 4 Cognitive screening reviewed and No further action needed (score 3-5). Functional Observation Was the patient's Timed Up AND Go test unsteady or >= 12 seconds? No Advance Care Planning Surrogate decision maker and/or advance care plan documented Measurements BP 102/54 Pulse 94 Resp 16 Ht 142 cm (4' 7.91") Wt 41.4 kg (91 lb 4.3 oz) BMI 20.53 kg/m? Vision Screening: Follows with optometry/ophthalmology Latest Ref Rng 12/17/2024 04/29/2025 Protein, Total 6.3 - 8.0 g/dL 7.1 Albumin 3.9 - 4.9 g/dL 4.5 Calcium 8.5 - 10.2 mg/dL 9.4 9.1 Bilirubin, Total 0.2 - 1.3 mg/dL 0.3 Alkaline Phosphatase 34 - 123 U/L 58 AST 13 - 35 U/L 20 ALT 7 - 38 U/L 21 Glucose 74 - 99 mg/dL 77 144 (H) BUN 7 - 21 mg/dL (more content not included)... Normal [facility] 25(OH)D3 SerPl-mCncon 2024 25-hydroxyvitamin D3 [Mass/Vol] 77.2 ng/mL Normal 31.0-80.0 [facility] Comment on above: Order Comment: Speci men Type: BLOOD SPECIMEN Ordering Facility: [facility] Address: [address] [place] [address] Result Comment: Clas sification of 25 [place] Vitamin D status: Deficiency/Insufficiency: < or = 30 ng/ml. Sufficiency/Optimal Levels: 31-80 ng/mL Toxicity: > 100 ng/mL. Test performed by chemiluminescent immunoassay. Performed By: #### 2 4321-2 #### [facility] CLIA [id number] [address] [place] [address] [place] Basic metabolic 2000 panelon 04-29-2025 Anion gap [Moles/Vol] 13 mmol/L Normal 8-15 [facility] Comment on above: Order Comment: Alejandra martin Type: BLOOD SPECIMEN Ordering Facility: [facility] Address: [address] [place] [address] Performed By: #### 2 4321-2 #### [facility] CLIA [id number] [address] [place] [address] [place] Calcium [Mass/Vol] 9.1 mg/dL Normal 8.5-10.2 [facility] Comment on above: Order Comment: Speci men Type: BLOOD SPECIMEN Ordering Facility: [facility] Address: [address] [place], [place] [id number] Performed By: #### 2 4321-2 #### [facility] CLIA [id number] [address] [place], [place] [id number] [place] Chloride [Moles/Vol] 107 mmol/L Normal 98-107 [facility] Comment on above: Order Comment: Speci men Type: BLOOD SPECIMEN Ordering Facility: [facility] Address: [address] [place] [address] Performed By: #### 2 4321-2 #### [facility] CLIA [id number] [address] [place] [address] [place] CO2 [Moles/Vol] 22 mmol/L Normal 22-30 [facility] Comment on above: Order Comment: Speci men Type: BLOOD SPECIMEN Ordering Facility: [facility] Address: [address] [place] [address] Performed By: #### 2 4321-2 #### [facility] CLIA [id number] [address] [place] [address] [place] Creatinine [Mass/Vol] 0.89 mg/dL Normal 0.58-0.96 [facility] Comment on above: Order Comment: Speci men Type: BLOOD SPECIMEN Ordering Facility: [facility] Address: [address] [place], [place] [address] Performed By: #### 2 4321-2 #### [facility] CLIA [id number] [address] [place] [address] [place] eGFRcr SerPlBld CKD-EPI 2020 68 mL/min/1.73m??? Normal >=60 [facility] Comment on above: Order Comment: Speci men Type: BLOOD SPECIMEN Ordering Facility: [facility] Address: [address] [place], [place] [id number] Result Comment: Maryjane mated Glomerular Filtration Rate (eGFR) is calculated using the 2020 CKD-EPI creatinine equation. This equation utilizes serum creatinine, sex, and age as parameters. The creatinine assay has traceable calibration to isotope dilution-mass spectrometry. Refer to KDIGO guidelines for clinical interpretation. In patients with unstable renal function, e.g. those with acute kidney injury, the eGFR may not accurately reflect actual GFR. Performed By: #### 2 4321-2 #### [facility] CLIA [id number] [address] [place] [address] [place] Glucose [Mass/Vol] 144 mg/dL High 74-99 [facility] Comment on above: Order Comment: Alejandra martin Type: BLOOD SPECIMEN Ordering Facility: [facility] Address: [address] [place] [address] Result Comment: The [place] [employer] (ADA) provides guidance for cutoff values for fasting glucose and random glucose. The ADA defines fasting as no caloric intake for at least 8 hours. Fasting plasma glucose results between 100 to 125 mg/dL indicate increased risk for diabetes (prediabetes). Fasting plasma glucose results greater than or equal to 126 mg/dL meet the criteria for diagnosis of diabetes. In the absence of unequivocal hyperglycemia, results should be confirmed by repeat testing. In a patient with classic symptoms of hyperglycemia or hyperglycemic crisis, random plasma glucose results greater than or equal to 200 mg/dL meet the criteria for diagnosis of diabetes. Reference: Standards of Medical Care in Diabetes 2016, [place] [employer]. Diabetes Care. 2016.39(Suppl 1). Performed By: #### 2 4321-2 #### [facility] CLIA [id number] [address] [place] [address] [place] Potassium [Moles/Vol] 4.0 mmol/L Normal 3.7-5.1 [facility] Comment on above: Order Comment: Alejandra martin Type: BLOOD SPECIMEN Ordering Facility: [facility] Address: [address] [place] [address] Performed By: #### 2 4321-2 #### [facility] CLIA [id number] [address] [place] [address] [place] Sodium [Moles/Vol] 142 mmol/L Normal 136-144 [facility] Comment on above: Order Comment: Speci men Type: BLOOD SPECIMEN Ordering Facility: [facility] Address: [address] [place] [address] Performed By: #### 2 4321-2 #### [facility] CLIA [id number] [address] [place] [address] [place] Urea nitrogen [Mass/Vol] 19 mg/dL Normal 7-21 [facility] Comment on above: Order Comment: Speci men Type: BLOOD SPECIMEN Ordering Facility: [facility] Address: [address] [place] [address] Performed By: #### 2 4321-2 #### [facility] CLIA [id number] [address] [place] [address] [place] Wound Ctr History AND Physic vanessa 04-21-2025 Wound Ctr History & Physical [facility] [address] [place] [address] H P Exam - Wound Care 04/21/25 1750 MR#: [id number] Acct: [id number] Name: GERALDINE HAIRSTON Rep #: [id number] : 1950 74 From: Cedric Gibbons MD PCP: Dr. Chance Kolb MD Status:[facility] Location: History of Present Illness Date of Service: 04/20/25 Chief Complaint: Traumatic avulsion injury of the right medial calf History of Wound: This is a 74-year-old female who sustained a traumatic injury to her left medial calf on January 01, 2025. At the time of her injury, she presented to the [facility] Emergency Department, where she was found to have an avulsion injury with a significant adherent cutaneous flap. The injury was caused by the nails of her dog, who had jumped off the couch. In the Emergency Department, the flap was sutured in place using seven 5-0 nylon sutures. The patient was placed on Keflex and Augmentin orally, and was discharged. The patient is generally healthy for her age, though has a history of ugje-fmgl-phxmfqrvpitqnr a, GERD, hypertension, hypothyroidism, and osteoporosis. She denies a history of diabetes mellitus, myocardial infarction, cerebrovascular accident, renal disease, and pulmonary disease. Her BMI is 19.5. She is . Since the patient's initial presentation, the traumatic injury on her left calf has healed, and she has sustained a similar injury to the right medial calf, for which she remains a patient at the Wound Center. 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 left calf with fat layer exposed Traumatic open wound of lower leg Avulsion injury GERD (gastroesophageal reflux disease) HTN (hypertension) Hypothyroidism Depression Anxiety Home Medications ???Medication ???Instructions ???Recorded ???Last Taken ???Type levothyroxine 25 mcg tablet 25 mcg PO DAILY Check with primary 02/07/15 09/29/16 09:00 History doctor Bacillus coagulans-inulin 1 1 ea PO DAILY Check with primary 0 12/07/15 09/29/16 09:00 History billion cell-250 mg capsule doctor (Probiotic Formula (inulin)) gabapentin 100 mg capsule 600 mg PO BID Check with primary 0 12/07/15 09/29/16 21:00 History doctor nifedipine 60 mg tablet,extended 180 mg PO DAILY Check with primary 12/07/15 09/29/16 09:00 History release 24 hr doctor pantoprazole 20 mg tablet,delayed 20 mg PO DAILY STOMACHE 12/07/15 09/29/16 09:00 History release paroxetine HCl 25 mg 75 mg PO DAILY depression 12/07/15 09/29/16 09:00 History tablet,extended release 24 hr (Paxil CR) aspirin 325 mg tablet,delayed 325 mg PO DAILY HEART 04/26/16 09:00 History release buspirone 5 mg tablet 30 mg PO BID Check with primary 09/29/16 21:00 History doctor budesonide 3 mg 9 mg PO DAILY Check with primary 0 09/30/16 Unknown History capsule,delayed,extended release doctor (Entocort EC) lorazepam 0.5 mg tablet 0.5 mg PO Q6H PRN PRN Anxiety ##10 01/25/17 Unknown Rx dicyclomine 20 mg tablet 20 mg PO TID Check with primary Unknown History doctor Metamucil Check with primary doctor 09/07/22 Unknown History food supplemt, lactose-reduced 120 ml PO 4X/DAY Check with Unknown History 0.08 gram-1.5 kcal/mL oral liquid primary doctor (Ensure Enlive) loperamide 2 mg tablet 2 mg PO Q6H PRN Constipation 09/07 Unknown History omeprazole 40 mg PO/SL DAILY Check with 09/07 Unknown History primary doctor atorvastatin 80 mg tablet 20 mg (1/4 x 80 mg) PO QHS #30 tab s 09/08/22 Unknown Rx cyclobenzaprine 5 mg tablet 5 mg PO TID PRN muscle spasm #14 0 03/18/25 Unknown Rx tabs ondansetron 4 mg disintegrating 4 mg PO Q6H PRN nausea and 5 Unknown Rx tablet vomiting #20 tabs oxycodone-acetaminophen 5 mg-325 1 tab PO Q6H PRN pain 2 days #8 Unknown Rx mg tablet (Endocet) tabs Allergy/AdvReac Type Severity Reaction Status Date / Time acetaminophen (From Percocet) Allergy Other Verified 03/13/25 19:15 oxycodone (From Percocet) Allergy Other Verified 03/13/25 19:15 codeine AdvReac Nausea Verified 03/13/25 19:15 dizziness oxycodone HCl (From Percocet) AdvReac Nausea Verified 03/13/25 19:15 dizziness Family History Father Diabetes Dementia Surgical History S/P ORIF (open reduction internal fixation) fracture History of surgery on wrist History of cataract surgery History of ankle surgery Social History household members: none Smoking Status: Never smoker substance use typ (more content not included)... Normal [facility] Ctr History AND Physic vanessa 04-01-2025 Wound Ctr History & Physical [facility] [address] [place] [address] H P Exam - Wound Care 04/01/25 1135 MR#: [id number] Acct: [id number] Name: GERALDINE HAIRSTON Rep #: [id number] : 1950 74 From: Cedric Gibbons MD PCP: Dr. Chance Kolb MD Status:REG RCR Location: History of Present Illness Date of Service: 03/30/25 Chief Complaint: Traumatic avulsion injury of the left medial calf History of Wound: This is a 74-year-old female who sustained a traumatic injury to her left medial calf on January 01, 2025. At the time of her injury, she presented to the [facility] Emergency Department, where she was found to have an avulsion injury with a significant adherent cutaneous flap. The injury was caused by the nails of her dog, who had jumped off the couch. In the Emergency Department, the flap was sutured in place using seven 5-0 nylon sutures. The patient was placed on Keflex and Augmentin orally, and was discharged. The patient is generally healthy for her age, though has a history of gkzs-cagc-yelndhgegsrdhd a, GERD, hypertension, hypothyroidism, and osteoporosis. She denies a history of diabetes mellitus, myocardial infarction, cerebrovascular accident, renal disease, and pulmonary disease. Her BMI is 19.5. She is . 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 left calf with fat layer exposed Traumatic open wound of lower leg Avulsion injury GERD (gastroesophageal reflux disease) HTN (hypertension) Hypothyroidism Depression Anxiety Home Medications ???Medication ???Instructions ???Recorded ???Last Taken ???Type levothyroxine 25 mcg tablet 25 mcg PO DAILY Check with primary 02/07/15 09/29/16 09:00 History doctor Bacillus coagulans-inulin 1 1 ea PO DAILY Check with primary 0 12/07/15 09/29/16 09:00 History billion cell-250 mg capsule doctor (Probiotic Formula (inulin)) gabapentin 100 mg capsule 600 mg PO BID Check with primary 0 12/07/15 09/29/16 21:00 History doctor nifedipine 60 mg tablet,extended 180 mg PO DAILY Check with primary 12/07/15 09/29/16 09:00 History release 24 hr doctor pantoprazole 20 mg tablet,delayed 20 mg PO DAILY STOMACHE 12/07/15 09/29/16 09:00 History release paroxetine HCl 25 mg 75 mg PO DAILY depression 12/07/15 09/29/16 09:00 History tablet,extended release 24 hr (Paxil CR) aspirin 325 mg tablet,delayed 325 mg PO DAILY HEART 04/26/16 09:00 History release buspirone 5 mg tablet 30 mg PO BID Check with primary 09/29/16 21:00 History doctor budesonide 3 mg 9 mg PO DAILY Check with primary 0 09/30/16 Unknown History capsule,delayed,extended release doctor (Entocorjenny EC) lorazepam 0.5 mg tablet 0.5 mg PO Q6H PRN PRN Anxiety ##10 10/03/16 Unknown Rx dicyclomine 20 mg tablet 20 mg PO TID Check with primary Unknown History doctor Metamucil Check with primary doctor 09/07/22 Unknown History food supplemt, lactose-reduced 120 ml PO 4X/DAY Check with Unknown History 0.08 gram-1.5 kcal/mL oral liquid primary doctor (Ensure Enlive) loperamide 2 mg tablet 2 mg PO Q6H PRN Constipation 09/07 Unknown History omeprazole 40 mg PO/SL DAILY Check with 09/07 Unknown History primary doctor atorvastatin 80 mg tablet 20 mg (1/4 x 80 mg) PO QHS #30 tab s 09/08/22 Unknown Rx cyclobenzaprine 5 mg tablet 5 mg PO TID PRN muscle spasm #14 0 03/18/25 Unknown Rx tabs ondansetron 4 mg disintegrating 4 mg PO Q6H PRN nausea and 5 Unknown Rx tablet vomiting #20 tabs oxycodone-acetaminophen 5 mg-325 1 tab PO Q6H PRN pain 2 days #8 Unknown Rx mg tablet (Endocet) tabs Allergy/AdvReac Type Severity Reaction Status Date / Time acetaminophen (From Percocet) Allergy Other Verified 03/13/25 19:15 oxycodone (From Percocet) Allergy Other Verified 03/13/25 19:15 codeine AdvReac Nausea Verified 03/13/25 19:15 dizziness oxycodone HCl (From Percocet) AdvReac Nausea Verified 03/13/25 19:15 dizziness Family History Father Diabetes Dementia Surgical History S/P ORIF (open reduction internal fixation) fracture History of surgery on wrist History of cataract surgery History of ankle surgery Social History household members: none Smoking Status: Never smoker substance use type: does not use Physical Exam Const alert, oriented x3, no apparent distress, average body habitus and no limitations Constitutional Narrative: The patient's BMI is 19.5. General Appearance: cooperat (more content not included)... Normal [facility] Ctr History AND Physic vanessa 03-27-2025 Wound Ctr History & Physical [facility] [address] [place] [address] H P Exam - Wound Care 03/27/25 1730 MR#: [id number] Acct: [id number] Name: GERALDINE HAIRSTON Rep #: [id number] : 1950 74 From: Cedric Gibbons MD PCP: Dr. Chance Kolb MD Status:REG RCR Location: History of Present Illness Date of Service: 03/23/25 Chief Complaint: Traumatic avulsion injury of the left medial calf History of Wound: This is a 74-year-old female who sustained a traumatic injury to her left medial calf on January 01, 2025. At the time of her injury, she presented to the [facility] Emergency Department, where she was found to have an avulsion injury with a significant adherent cutaneous flap. The injury was caused by the nails of her dog, who had jumped off the couch. In the Emergency Department, the flap was sutured in place using seven 5-0 nylon sutures. The patient was placed on Keflex and Augmentin orally, and was discharged. The patient is generally healthy for her age, though has a history of vduu-kzex-jxyhubuqjpvsha a, GERD, hypertension, hypothyroidism, and osteoporosis. She denies a history of diabetes mellitus, myocardial infarction, cerebrovascular accident, renal disease, and pulmonary disease. Her BMI is 19.5. She is . 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 left calf with fat layer exposed Traumatic open wound of lower leg Avulsion injury GERD (gastroesophageal reflux disease) HTN (hypertension) Hypothyroidism Depression Anxiety Home Medications ???Medication ???Instructions ???Recorded ???Last Taken ???Type levothyroxine 25 mcg tablet 25 mcg PO DAILY Check with primary 02/07/15 09/29/16 09:00 History doctor Bacillus coagulans-inulin 1 1 ea PO DAILY Check with primary 0 12/07/15 09/29/16 09:00 History billion cell-250 mg capsule doctor (Probiotic Formula (inulin)) gabapentin 100 mg capsule 600 mg PO BID Check with primary 0 12/07/15 09/29/16 21:00 History doctor nifedipine 60 mg tablet,extended 180 mg PO DAILY Check with primary 12/07/15 09/29/16 09:00 History release 24 hr doctor pantoprazole 20 mg tablet,delayed 20 mg PO DAILY STOMACHE 12/07/15 09/29/16 09:00 History release paroxetine HCl 25 mg 75 mg PO DAILY depression 12/07/15 09/29/16 09:00 History tablet,extended release 24 hr (Paxil CR) aspirin 325 mg tablet,delayed 325 mg PO DAILY HEART 04/26/16 09:00 History release buspirone 5 mg tablet 30 mg PO BID Check with primary 09/29/16 21:00 History doctor budesonide 3 mg 9 mg PO DAILY Check with primary 0 09/30/16 Unknown History capsule,delayed,extended release doctor (Entocort EC) lorazepam 0.5 mg tablet 0.5 mg PO Q6H PRN PRN Anxiety ##10 10/03/16 Unknown Rx dicyclomine 20 mg tablet 20 mg PO TID Check with primary Unknown History doctor Metamucil Check with primary doctor 09/07/22 Unknown History food supplemt, lactose-reduced 120 ml PO 4X/DAY Check with Unknown History 0.08 gram-1.5 kcal/mL oral liquid primary doctor (Ensure Enlive) loperamide 2 mg tablet 2 mg PO Q6H PRN Constipation 09/07 Unknown History omeprazole 40 mg PO/SL DAILY Check with 09/07 Unknown History primary doctor atorvastatin 80 mg tablet 20 mg (1/4 x 80 mg) PO QHS #30 tab s 09/08/22 Unknown Rx cyclobenzaprine 5 mg tablet 5 mg PO TID PRN muscle spasm #14 0 03/18/25 Unknown Rx tabs ondansetron 4 mg disintegrating 4 mg PO Q6H PRN nausea and 5 Unknown Rx tablet vomiting #20 tabs oxycodone-acetaminophen 5 mg-325 1 tab PO Q6H PRN pain 2 days #8 Unknown Rx mg tablet (Endocet) tabs Allergy/AdvReac Type Severity Reaction Status Date / Time acetaminophen (From Percocet) Allergy Other Verified 03/13/25 19:15 oxycodone (From Percocet) Allergy Other Verified 03/13/25 19:15 codeine AdvReac Nausea Verified 03/13/25 19:15 dizziness oxycodone HCl (From Percocet) AdvReac Nausea Verified 03/13/25 19:15 dizziness Family History Father Diabetes Dementia Surgical History S/P ORIF (open reduction internal fixation) fracture History of surgery on wrist History of cataract surgery History of ankle surgery Social History household members: none Smoking Status: Never smoker substance use type: does not use Physical Exam Const alert, oriented x3, no apparent distress and average body habitus Constitutional Narrative: The patient's BMI is 19.5. General Appearance: cooperative, comfortable (more content not included)... Normal [facility] CNOVon 03-22-2025 CNOV Office Visit (INTMWS ) -------- GERALDINE HAIRSTON ([id number]) 1950 F Date Time Provider Department 03/22/25 9:40 AM NGUYỄN STRINGERMROSIE During your visit today, we recorded the following information about you: Pulse Respiration Blood pressure Weight 74/minute 16/minute 100/58 43.5 kg Nguyễn Stringer, MIMI.LEAD BURNER SUPERVISOR 03/22/2025 10:28 AM Signed Subjective Patient ID: Geraldine is a 74 year old female who presents for ER F/U. HPI Presents for an ER follow-up visit. She was seen at [facility] on March 13 and March 18, 2025. She was seen in ER on March 13, 2025 for laceration attributed to her dog. Sutures were placed. Noted to be up-to-date on Tdap. She was seen at [facility] in March 18 after sustaining a fall at home with resulting left thigh and hip pain. She reported losing her balance causing her to fall sliding down the bathroom wall. She reports she did not hit her head or pass out. Due to worsening pain she came to the ER for further evaluation. March 18, 2025 she was found to have nondisplaced compression fracture along the anterior superior endplate of the L4 vertebrae. March 18 x-ray of the pelvis showed hardware from prior ORIF of right subcapital fracture and transverse fracture of the proximal shaft of the right femur. Healed fracture of the right superior inferior pubic rami with residual deformity. No acute fracture is seen in the pelvis. No acute fracture of the femur on x-ray. She has a history of osteoporosis, previously has taken Prolia. Vitamin D: not currently taking now, had a previous elevated level. Notes no pain in her back. Leg Wounds: - Sustained wounds on bilateral legs from dog bites. - Left leg wound treated at a wound center; Geraldine missed last appointment due to feeling unwell and depressed. - Unsure if left leg wound is healed; next appointment is tomorrow. - Applying Xeroform dressing daily to left leg wound. - Right leg wound kept clean and dry; denies drainage. - Denies fever. Back Fracture: - Sustained a back fracture from a fall in March. - Denies current back pain. Osteoporosis: - Not currently taking medication for osteoporosis. - Recently stopped taking vitamin D supplements. ROS Constitutional: (-) fever Musculoskeletal: (+) extremity pain, (-) back pain Skin: (-) wound drainage Psychiatric: (+) depressed mood Objective BP 100/58 Pulse 74 Resp 16 Wt 43.5 kg (95 lb 14.4 oz) BMI 21.12 kg/m? Physical Exam Vitals and nursing note reviewed. Constitutional: Appearance: Normal appearance. HENT: Head: Normocephalic and atraumatic. Eyes: Conjunctiva/sclera: Conjunctivae normal. Cardiovascular: Rate and Rhythm: Normal rate. Pulmonary: Effort: Pulmonary effort is normal. Musculoskeletal: Right lower leg: No edema. Left lower leg: No edema. Skin: General: Skin is warm and dry. Comments: Laceration with 7 sutures right lateral mid calf, well-approximated edges no warmth no drainage no erythema. Sutures removed tolerated well. Steri-Strips placed. Chronic wound left ankle with dressing intact, wound base is red, appears nearly healed. Neurological: General: No focal deficit present. Mental Status: She is alert and oriented to person, place, and time. 1. Laceration of lower extremity, unspecified laterality, subsequent encounter (S81.119D) 2. Visit for suture removal (Z48.02) - Laceration on right leg healing well; no signs of infection or drainage. - Removed sutures; applied Steri-Strips to support wound healing. - Advised gentle washing with soap and water; monitor for signs of infection. - Laceration on left leg healing well; continue current wound care regimen as instructed by the wound center. 3. Fall, subsequent encounter (W19.XXXD) - No acute injuries noted from recent fall. - Monitor for any new or worsening symptoms. 4. Acute pain of left hip (M25.552) - No current pain reported. - Monitor for any recurrence of pain. 5. Compression fracture of L4 vertebra with routine healing, subsequent encounter (S32.040D) - No current pain reported; healing as expected. - Follow-up with Dr. Kolb next month. 6. Age-related osteoporosis without current pathological fracture (M81.0) - Discussed importance of bone health and potential medication to strengthen bones. - Ordered vitamin D level check. - Consideration of osteoporosis medication at next visit due to osteoporosis and lumbar compression fracture. Nguyễn Stringer APRN.LEAD [employer]URNER SUPERVISOR Medical Decision Making: Problems: Low: Acute, uncomplicated illness or injury Moderate: 1+ chronic illnesses with change Data: Unique source(s) for external note(s) reviewed: 1 Unique test result(s) reviewed: 1 Unique test(s) ordered: 1 Risk: Moderate: Drug management Medical Decision Making Level: 4 - Moderate Nguyễn Stringer APRN.LEAD BURNER SUPERVISOR 03/22/2025 10:12 (more content not included)... Normal [facility] Emergency Department Summary on 03-18-2025 Emergency Department Summary [facility] Medical Records Department [address] [facility] [place] [address] Emergency Department Summary 03/18/25 MR#: [id number] Acct: [id number] Name: GERALDINE HAIRSTON Elin Rep #: [id number] : 1950 74 From: Will Knapp DO PCP: Dr. Chance Kolb MD Status:REG ER Location: ED HPI History of Present Illness Chief Complaint: Lower Extremity Injury Narrative Narrative: Patient is a 74-year-old female with past medical history hypertension, hypothyroidism, depression, anxiety, GERD who presents to the emergency department chief complaint of left thigh/hip pain. Patient states that yesterday she lost her balance causing her to slide down her bathroom wall. Patient states that she did not hit her head should not pass out. States that originally she thought she bruised her leg causing her pain however felt that the pain was worsening therefore she came here for further evaluation management. Patient denies any blood thinning medications. [facility] Medical History Non-pressure chronic ulcer of left calf with fat layer exposed Traumatic open wound of lower leg Avulsion injury GERD (gastroesophageal reflux disease) HTN (hypertension) Hypothyroidism Depression Anxiety Home Medications ???Medication ???Instructions ???Recorded ???Last Taken ???Type levothyroxine 25 mcg tablet 25 mcg PO DAILY Check with primary 02/07/15 09/29/16 09:00 History doctor Bacillus coagulans-inulin 1 1 ea PO DAILY Check with primary 0 12/07/15 09/29/16 09:00 History billion cell-250 mg capsule doctor (Probiotic Formula (inulin)) gabapentin 100 mg capsule 600 mg PO BID Check with primary 0 12/07/15 09/29/16 21:00 History doctor nifedipine 60 mg tablet,extended 180 mg PO DAILY Check with primary 12/07/15 09/29/16 09:00 History release 24 hr doctor pantoprazole 20 mg tablet,delayed 20 mg PO DAILY STOMACHE 12/07/15 09/29/16 09:00 History release paroxetine HCl 25 mg 75 mg PO DAILY depression 12/07/15 09/29/16 09:00 History tablet,extended release 24 hr (Paxil CR) aspirin 325 mg tablet,delayed 325 mg PO DAILY HEART 04/26/16 09:00 History release buspirone 5 mg tablet 30 mg PO BID Check with primary 09/29/16 21:00 History doctor budesonide 3 mg 9 mg PO DAILY Check with primary 0 09/30/16 Unknown History capsule,delayed,extended release doctor (Entocort EC) lorazepam 0.5 mg tablet 0.5 mg PO Q6H PRN PRN Anxiety ##10 10/03/16 Unknown Rx dicyclomine 20 mg tablet 20 mg PO TID Check with primary Unknown History doctor Metamucil Check with primary doctor 09/07/22 Unknown History food supplemt, lactose-reduced 120 ml PO 4X/DAY Check with Unknown History 0.08 gram-1.5 kcal/mL oral liquid primary doctor (Ensure Enlive) loperamide 2 mg tablet 2 mg PO Q6H PRN Constipation 09/07 Unknown History omeprazole 40 mg PO/SL DAILY Check with 09/07 Unknown History primary doctor atorvastatin 80 mg tablet 20 mg (1/4 x 80 mg) PO QHS #30 tab s 09/08/22 Unknown Rx cyclobenzaprine 5 mg tablet 5 mg PO TID PRN muscle spasm #14 0 03/18/25 Unknown Rx tabs ondansetron 4 mg disintegrating 4 mg PO Q6H PRN nausea and 5 Unknown Rx tablet vomiting #20 tabs oxycodone-acetaminophen 5 mg-325 1 tab PO Q6H PRN pain 2 days #8 Unknown Rx mg tablet (Endocet) tabs Allergy/AdvReac Type Severity Reaction Status Date / Time acetaminophen (From Percocet) Allergy Other Verified 03/13/25 19:15 oxycodone (From Percocet) Allergy Other Verified 03/13/25 19:15 codeine AdvReac Nausea Verified 03/13/25 19:15 dizziness oxycodone HCl (From Percocet) AdvReac Nausea Verified 03/13/25 19:15 dizziness Family History Father Diabetes Dementia Surgical History S/P ORIF (open reduction internal fixation) fracture History of surgery on wrist History of cataract surgery History of ankle surgery Social History household members: none Smoking Status: Never smoker substance use type: does not use ROS ROS ED ROS Narrative Constitutional: Denies any headaches Eyes: Denies double vision blurry vision Cardiovascular: Denies chest pain Respiratory: Denies coughing wheezing shortness of breath Abdomen: Denies nausea vomiting : Denies any urinary symptoms Neurological: Denies any numbness, wheeze, tingling Musculoskeletal: Complains of left hip, thigh and low back pain Skin: Complains of bruising to the left thigh EXAM Physical Exam Narrative Exam Narrative: General: Patient is lying in bed rest comfortably do not appear to be a (more content not included)... Normal [facility] Femur Min 2 Viewson 03-18-20 Femur Min 2 Views [facility] [address] [place], [place] [address] Femur Min 2 Views MR#: [id number] Acct: [id number] Name: GERALDINE HAIRSTON Rep #: [id number] : 1950 F 74 From: Carmine lay MD PCP: Dr. Chance Kolb MD Status: REG ER Study: Femur Min 2 Views Date of Exam: 03/18/25 Exam# [id number] Ordering Dr: Will Knapp DO PROCEDURE: FEMUR MIN 2 VIEWS 03/18/2025 REASON FOR EXAM: FALL TECHNIQUE: FEMUR MIN 2 VIEWS COMPARISON: None FINDINGS: Bones: No fracture or dislocation. Joints: Moderate degree of joint space narrowing of the left hip joint. No fracture or dislocation. Soft tissues: Soft tissues are unremarkable. Other: RAD/Femur Min 2 Views IMPRESSION: NO ACUTE FRACTURE OR DISLOCATION. Reading Location: [facility] CC: Dr. Chance Kolb MD; Dr. Will Knapp DO Prescription Clerk Lenses: Signed Normal [facility] Pelvis 1 or 2 Viewson 2024 Pelvis 1 or 2 Views [facility] [address] [place] [address] Pelvis 1 or 2 Views MR#: [id number] Acct: [id number] Name: RONALDOYOSELINGERALDINE D Rep #: [id number] : 1950 F 74 From: Carmine lay MD PCP: Dr. Chance Kolb MD Status: REG ER Study: Pelvis 1 or 2 Views Date of Exam: 03/18/25 Exam# [id number] Ordering Dr: Will Knapp DO PROCEDURE: PELVIS 1 OR 2 VIEWS 03/18/2025 REASON FOR EXAM: FALL TECHNIQUE: PELVIS 1 OR 2 VIEWS COMPARISON: None FINDINGS: Hardware: Status post ORIF of a right subcapital fracture and transverse fracture of the proximal shaft of the right femur. Healed fractures of the right superior inferior pubic rami with residual deformity. Bones: No acute fracture is seen. Joints: Degenerative changes of the sacroiliac joints as well as the left hip joint. soft tissues: Unremarkable Other: RAD/Pelvis 1 or 2 Views IMPRESSION: No acute fracture is seen. Reading Location: [facility] CC: Dr. Chance Kolb MD; Dr. Will Knapp DO Prescription Clerk Lenses: Signed Normal [facility] Spine Lumbar without Contras ton 03-18-2025 Spine Lumbar without Contrast [facility] [address] [place], [place] [id number] Spine Lumbar without Contrast MR#: [id number] Acct: [id number] Name: GERALDINE HAIRSTON Rep #: [id number] : 1950 F 74 From: Carmine lay MD PCP: Dr. Chance Kolb MD Status: REG ER Study: Spine Lumbar without Contrast Date of Exam: Exam# [id number] Ordering Dr: Will Knapp DO PROCEDURE: SPINE LUMBAR WITHOUT CONTRAST 03/18/2025 REASON FOR EXAM: LOW BACK PAIN, FALL Left leg pain following a recent fall. TECHNIQUE: SPINE LUMBAR WITHOUT CONTRAST Coronal and Sagittal reconstruction series were provided. One or more dose reduction techniques were used (e.g., Automated exposure control, adjustment of the mA and/or kV according to patient size, use of iterative reconstruction technique COMPARISON: None RADIATION DOSE SUMMARY: CTDlvol: 13.82 mGy DLP: 439.46 mGycm FINDINGS: Vertebrae: Loss of height of the superior endplate of the L4 vertebrae. Spondylosis. Alignment: Loss of the normal lumbar lordosis. L1-2: Mild degree of disc space narrowing. No significant stenosis seen. L2-3: Marked degree of disc space narrowing and degeneration of the disc. Anterior spondylosis more prominent on the right side. Mild right neural foraminal stenosis. L3-4: Mild degree of disc space narrowing. Diffuse posterior disc bulge. Spondylosis. Facet joint osteoarthritis. Mild bilateral neural foraminal stenosis. L4-5: There is evidence of a nondisplaced fracture along the anterior superior endplate of the L4 vertebrae. No evidence of spinal stenosis. Mild degree of diffuse posterior disc bulge as well as L5-S1: Moderate degree of disc space narrowing and disc degeneration. Facet joint osteoarthritis and hypertrophy. No significant stenosis seen. Sacrum: Unremarkable CT/Spine Lumbar without Contrast IMPRESSION: LUMBAR DEGENERATIVE DISC AND FACET DISEASE. Nondisplaced compression fracture along the anterior superior endplate of the L4 vertebrae. Reading Location: [facility] CC: Dr. Chance Kolb MD; Dr. Will Knapp DO Prescription Clerk Lenses: Signed Normal [facility] Emergency Department Summary on 03-13-2025 Emergency Department Summary [facility] Medical Records Department [address] [place] [address] Emergency Department Summary 03/13/25 MR#: [id number] Acct: [id number] Name: GERALDINE HAIRSTON Rep #: [id number] : 1950 74 From: Will Knapp DO PCP: Dr. Chance Kolb MD Status:REG ER Location: ED HPI History of Present Illness Chief Complaint: Laceration Narrative Narrative: Patient is a 74-year-old female with past medical history of anxiety, depression, hypothyroidism, hypertension, GERD who presents to the emergency department the chief complaint of right leg wound. Patient states that her dog scratched her earlier this evening and notes that she came here to be further evaluated as she states that she may need stitches she is not sure. Patient states that this is her dog. Patient states that her tetanus shot was updated when she was here last which was approximately 2 months ago. [facility] Medical History Non-pressure chronic ulcer of left calf with fat layer exposed Traumatic open wound of lower leg Avulsion injury GERD (gastroesophageal reflux disease) HTN (hypertension) Hypothyroidism Depression Anxiety Home Medications ???Medication ???Instructions ???Recorded ???Last Taken ???Type levothyroxine 25 mcg tablet 25 mcg PO DAILY Check with primary 02/07/15 09/29/16 09:00 History doctor Bacillus coagulans-inulin 1 1 ea PO DAILY Check with primary 0 12/07/15 09/29/16 09:00 History billion cell-250 mg capsule doctor (Probiotic Formula (inulin)) gabapentin 100 mg capsule 600 mg PO BID Check with primary 0 12/07/15 09/29/16 21:00 History doctor nifedipine 60 mg tablet,extended 180 mg PO DAILY Check with primary 12/07/15 09/29/16 09:00 History release 24 hr doctor pantoprazole 20 mg tablet,delayed 20 mg PO DAILY STOMACHE 12/07/15 09/29/16 09:00 History release paroxetine HCl 25 mg 75 mg PO DAILY depression 12/07/15 09/29/16 09:00 History tablet,extended release 24 hr (Paxil CR) aspirin 325 mg tablet,delayed 325 mg PO DAILY HEART 04/26/16 09:00 History release buspirone 5 mg tablet 30 mg PO BID Check with primary 09/29/16 21:00 History doctor budesonide 3 mg 9 mg PO DAILY Check with primary 0 09/30/16 Unknown History capsule,delayed,extended release doctor (Entocort EC) lorazepam 0.5 mg tablet 0.5 mg PO Q6H PRN PRN Anxiety ##10 10/03/16 Unknown Rx dicyclomine 20 mg tablet 20 mg PO TID Check with primary Unknown History doctor Metamucil Check with primary doctor 09/07/22 Unknown History food supplemt, lactose-reduced 120 ml PO 4X/DAY Check with Unknown History 0.08 gram-1.5 kcal/mL oral liquid primary doctor (Ensure Enlive) loperamide 2 mg tablet 2 mg PO Q6H PRN Constipation 09/07 Unknown History omeprazole 40 mg PO/SL DAILY Check with 09/07 Unknown History primary doctor atorvastatin 80 mg tablet 20 mg (1/4 x 80 mg) PO QHS #30 tab s 09/08/22 Unknown Rx cephalexin 500 mg capsule 500 mg PO BID #12 caps 09/08/22 Un known Rx amoxicillin 875 mg-potassium 875 mg (0.875 x 875-125 mg) PO Unknown Rx clavulanate 125 mg tablet Q12H #10 TABLETS Allergy/AdvReac Type Severity Reaction Status Date / Time acetaminophen (From Percocet) Allergy Other Verified 03/13/25 19:15 oxycodone (From Percocet) Allergy Other Verified 03/13/25 19:15 codeine AdvReac Nausea Verified 03/13/25 19:15 dizziness oxycodone HCl (From Percocet) AdvReac Nausea Verified 03/13/25 19:15 dizziness Family History Father Diabetes Dementia Surgical History S/P ORIF (open reduction internal fixation) fracture History of surgery on wrist History of cataract surgery History of ankle surgery Social History household members: none Smoking Status: Never smoker substance use type: does not use ROS ROS ED ROS Narrative Neurological: Denies numbness, weakness, tingling Musculoskeletal: Complains of cut to the lower right leg as noted above EXAM Physical Exam Narrative Exam Narrative: General: Patient lying in bed rest comfortably did not appear to be in acute distress Head: Atraumatic, normocephalic Eyes: PERRL bilaterally, EOMI blood, no conjunctival injection noted Neck: Soft, supple, trachea midline Cardiovascular: Regular rate and rhythm no murmurs gallops rubs are noted Respiratory: Clear to auscultation bilaterally no rales rhonchi or wheeze noted Abdomen: Soft, nondistended, no tenderness palpation Extremities: +5/5 strength noted in the bilateral upper and lower extremities Neurological: Patient f (more content not included)... Normal [facility] History AND Physic vanessa 03-11-2025 Wound Ctr History & Physical [facility] [address] [place] [address] H P Exam - Wound Care 03/11/25 1318 MR#: [id number] Acct: [id number] Name: GERALDINE HAIRSTON Rep #: [id number] : 1950 74 From: Cedric Gibbons MD PCP: Dr. Chance Kolb MD Status:REG R Location: History of Present Illness Date of Service: 03/09/25 Chief Complaint: Traumatic avulsion injury of the left medial calf History of Wound: This is a 74-year-old female who sustained a traumatic injury to her left medial calf on January 01, 2025. At the time of her injury, she presented to the [facility] Emergency Department, where she was found to have an avulsion injury with a significant adherent cutaneous flap. The injury was caused by the nails of her dog, who had jumped off the couch. In the Emergency Department, the flap was sutured in place using seven 5-0 nylon sutures. The patient was placed on Keflex and Augmentin orally, and was discharged. The patient is generally healthy for her age, though has a history of lfgr-uymx-akfxquqvsjrgff a, GERD, hypertension, hypothyroidism, and osteoporosis. She denies a history of diabetes mellitus, myocardial infarction, cerebrovascular accident, renal disease, and pulmonary disease. Her BMI is 19.5. She is . [facility] Medical History Non-pressure chronic ulcer of left calf with fat layer exposed Traumatic open wound of lower leg Avulsion injury GERD (gastroesophageal reflux disease) HTN (hypertension) Hypothyroidism Depression Anxiety Home Medications ???Medication ???Instructions ???Recorded ???Last Taken ???Type levothyroxine 25 mcg tablet 25 mcg PO DAILY Check with primary 02/07/15 09/29/16 09:00 History doctor Bacillus coagulans-inulin 1 1 ea PO DAILY Check with primary 0 12/07/15 09/29/16 09:00 History billion cell-250 mg capsule doctor (Probiotic Formula (inulin)) gabapentin 100 mg capsule 600 mg PO BID Check with primary 0 12/07/15 09/29/16 21:00 History doctor nifedipine 60 mg tablet,extended 180 mg PO DAILY Check with primary 12/07/15 09/29/16 09:00 History release 24 hr doctor pantoprazole 20 mg tablet,delayed 20 mg PO DAILY STOMACHE 12/07/15 09/29/16 09:00 History release paroxetine HCl 25 mg 75 mg PO DAILY depression 12/07/15 09/29/16 09:00 History tablet,extended release 24 hr (Paxil CR) aspirin 325 mg tablet,delayed 325 mg PO DAILY HEART 04/26/16 09:00 History release buspirone 5 mg tablet 30 mg PO BID Check with primary 09/29/16 21:00 History doctor budesonide 3 mg 9 mg PO DAILY Check with primary 0 09/30/16 Unknown History capsule,delayed,extended release doctor (Entocort EC) lorazepam 0.5 mg tablet 0.5 mg PO Q6H PRN PRN Anxiety ##10 10/03/16 Unknown Rx dicyclomine 20 mg tablet 20 mg PO TID Check with primary Unknown History doctor Metamucil Check with primary doctor 09/07/22 Unknown History food supplemt, lactose-reduced 120 ml PO 4X/DAY Check with Unknown History 0.08 gram-1.5 kcal/mL oral liquid primary doctor (Ensure Enlive) loperamide 2 mg tablet 2 mg PO Q6H PRN Constipation 09/07 Unknown History omeprazole 40 mg PO/SL DAILY Check with 09/07 Unknown History primary doctor atorvastatin 80 mg tablet 20 mg (1/4 x 80 mg) PO QHS #30 tab s 09/08/22 Unknown Rx cephalexin 500 mg capsule 500 mg PO BID #12 caps 09/08/22 Un known Rx amoxicillin 875 mg-potassium 875 mg (0.875 x 875-125 mg) PO Unknown Rx clavulanate 125 mg tablet Q12H #10 TABLETS Allergy/AdvReac Type Severity Reaction Status Date / Time acetaminophen (From Percocet) Allergy Other Verified 01/06/25 14:05 oxycodone (From Percocet) Allergy Other Verified 01/06/25 14:05 codeine AdvReac Nausea Verified 01/06/25 14:05 dizziness oxycodone HCl (From Percocet) AdvReac Nausea Verified 01/06/25 14:05 dizziness Family History Father Diabetes Dementia Surgical History S/P ORIF (open reduction internal fixation) fracture History of surgery on wrist History of cataract surgery History of ankle surgery Social History household members: none Smoking Status: Never smoker substance use type: does not use Physical Exam Const alert, oriented x3, no apparent distress and average body habitus Constitutional Narrative: The patient's BMI is 19.5. General Appearance: cooperative, comfortable, well kempt and well developed Orientation / Consciousness: awake, oriented to person, oriented to place and oriented to time Exam Limitations: no limitations HEENT normocephalic a (more content not included)... Normal [facility] History AND Physic vanessa 03-03-2025 Wound Ctr History & Physical [facility] [address] [place] [address] H P Exam - Wound Care 03/03/25 1057 MR#: [id number] Acct: [id number] Name: GERALDINE HAIRSTON Rep #: [id number] : 1950 74 From: Cedric Gibbons MD PCP: Dr. Chance Kolb MD Status:REG RCR Location: History of Present Illness Date of Service: 03/02/25 Chief Complaint: Traumatic avulsion injury of the left medial calf History of Wound: This is a 74-year-old female who sustained a traumatic injury to her left medial calf on January 01, 2025. At the time of her injury, she presented to the [facility] Emergency Department, where she was found to have an avulsion injury with a significant adherent cutaneous flap. The injury was caused by the nails of her dog, who had jumped off the couch. In the Emergency Department, the flap was sutured in place using seven 5-0 nylon sutures. The patient was placed on Keflex and Augmentin orally, and was discharged. The patient is generally healthy for her age, though has a history of djta-hsav-hnbeaalgmhpikr a, GERD, hypertension, hypothyroidism, and osteoporosis. She denies a history of diabetes mellitus, myocardial infarction, cerebrovascular accident, renal disease, and pulmonary disease. Her BMI is 19.5. She is . [facility] Medical History Non-pressure chronic ulcer of left calf with fat layer exposed Traumatic open wound of lower leg Avulsion injury GERD (gastroesophageal reflux disease) HTN (hypertension) Hypothyroidism Depression Anxiety Home Medications ???Medication ???Instructions ???Recorded ???Last Taken ???Type levothyroxine 25 mcg tablet 25 mcg PO DAILY Check with primary 02/07/15 09/29/16 09:00 History doctor Bacillus coagulans-inulin 1 1 ea PO DAILY Check with primary 0 12/07/15 09/29/16 09:00 History billion cell-250 mg capsule doctor (Probiotic Formula (inulin)) gabapentin 100 mg capsule 600 mg PO BID Check with primary 0 12/07/15 09/29/16 21:00 History doctor nifedipine 60 mg tablet,extended 180 mg PO DAILY Check with primary 12/07/15 09/29/16 09:00 History release 24 hr doctor pantoprazole 20 mg tablet,delayed 20 mg PO DAILY STOMACHE 12/07/15 09/29/16 09:00 History release paroxetine HCl 25 mg 75 mg PO DAILY depression 12/07/15 09/29/16 09:00 History tablet,extended release 24 hr (Paxil CR) aspirin 325 mg tablet,delayed 325 mg PO DAILY HEART 04/26/16 09:00 History release buspirone 5 mg tablet 30 mg PO BID Check with primary 09/29/16 21:00 History doctor budesonide 3 mg 9 mg PO DAILY Check with primary 0 09/30/16 Unknown History capsule,delayed,extended release doctor (Entjerri WHITLOCK) lorazepam 0.5 mg tablet 0.5 mg PO Q6H PRN PRN Anxiety ##10 10/03/16 Unknown Rx dicyclomine 20 mg tablet 20 mg PO TID Check with primary Unknown History doctor Metamucil Check with primary doctor 09/07/22 Unknown History food supplemt, lactose-reduced 120 ml PO 4X/DAY Check with Unknown History 0.08 gram-1.5 kcal/mL oral liquid primary doctor (Ensure Enlive) loperamide 2 mg tablet 2 mg PO Q6H PRN Constipation 09/07 Unknown History omeprazole 40 mg PO/SL DAILY Check with 09/07 Unknown History primary doctor atorvastatin 80 mg tablet 20 mg (1/4 x 80 mg) PO QHS #30 tab s 09/08/22 Unknown Rx cephalexin 500 mg capsule 500 mg PO BID #12 caps 09/08/22 Un known Rx amoxicillin 875 mg-potassium 875 mg (0.875 x 875-125 mg) PO Unknown Rx clavulanate 125 mg tablet Q12H #10 TABLETS Allergy/AdvReac Type Severity Reaction Status Date / Time acetaminophen (From Percocet) Allergy Other Verified 01/06/25 14:05 oxycodone (From Percocet) Allergy Other Verified 01/06/25 14:05 codeine AdvReac Nausea Verified 01/06/25 14:05 dizziness oxycodone HCl (From Percocet) AdvReac Nausea Verified 01/06/25 14:05 dizziness Family History Father Diabetes Dementia Surgical History S/P ORIF (open reduction internal fixation) fracture History of surgery on wrist History of cataract surgery History of ankle surgery Social History household members: none Smoking Status: Never smoker substance use type: does not use Vital Signs Vital Signs Vital Signs: 03/02/25 13:34 Temperature 98.7 F Temperature Source Temporal Pulse Rate 91 Respiratory Rate 16 Blood Pressure 99/56 L Blood Pressure Mean 70 Blood Pressure Source Monitor Blood Pressure Position Sitting Blood Pressure Location Right Arm Oxygen Delivery Method Room Air Weight (more content not included)... Normal [facility] History AND Physic vanessa 02-24-2025 Wound Ctr History & Physical [facility] [address] [place] [address] H P Exam - Wound Care 02/24/25 1110 MR#: [id number] Acct: [id number] Name: GERALDINE HAIRSTON Rep #: [id number] : 1950 74 From: Cedric Gibbons MD PCP: Dr. Chance Kolb MD Status:REG RCR Location: History of Present Illness Date of Service: 02/23/25 Chief Complaint: Traumatic avulsion injury of the left medial calf History of Wound: This is a 74-year-old female who sustained a traumatic injury to her left medial calf on January 01, 2025. At the time of her injury, she presented to the [facility] Emergency Department, where she was found to have an avulsion injury with a significant adherent cutaneous flap. The injury was caused by the nails of her dog, who had jumped off the couch. In the Emergency Department, the flap was sutured in place using seven 5-0 nylon sutures. The patient was placed on Keflex and Augmentin orally, and was discharged. The patient is generally healthy for her age, though has a history of hrzt-igbv-poinjhiuzsalqc a, GERD, hypertension, hypothyroidism, and osteoporosis. She denies a history of diabetes mellitus, myocardial infarction, cerebrovascular accident, renal disease, and pulmonary disease. Her BMI is 19.5. She is . [facility] Medical History Non-pressure chronic ulcer of left calf with fat layer exposed Traumatic open wound of lower leg Avulsion injury GERD (gastroesophageal reflux disease) HTN (hypertension) Hypothyroidism Depression Anxiety Home Medications ???Medication ???Instructions ???Recorded ???Last Taken ???Type levothyroxine 25 mcg tablet 25 mcg PO DAILY Check with primary 02/07/15 09/29/16 09:00 History doctor Bacillus coagulans-inulin 1 1 ea PO DAILY Check with primary 0 12/07/15 09/29/16 09:00 History billion cell-250 mg capsule doctor (Probiotic Formula (inulin)) gabapentin 100 mg capsule 600 mg PO BID Check with primary 0 12/07/15 09/29/16 21:00 History doctor nifedipine 60 mg tablet,extended 180 mg PO DAILY Check with primary 12/07/15 09/29/16 09:00 History release 24 hr doctor pantoprazole 20 mg tablet,delayed 20 mg PO DAILY STOMACHE 12/07/15 09/29/16 09:00 History release paroxetine HCl 25 mg 75 mg PO DAILY depression 12/07/15 09/29/16 09:00 History tablet,extended release 24 hr (Paxil CR) aspirin 325 mg tablet,delayed 325 mg PO DAILY HEART 04/26/16 09:00 History release buspirone 5 mg tablet 30 mg PO BID Check with primary 09/29/16 21:00 History doctor budesonide 3 mg 9 mg PO DAILY Check with primary 0 09/30/16 Unknown History capsule,delayed,extended release doctor (Entocort EC) lorazepam 0.5 mg tablet 0.5 mg PO Q6H PRN PRN Anxiety ##10 10/03/16 Unknown Rx dicyclomine 20 mg tablet 20 mg PO TID Check with primary Unknown History doctor Metamucil Check with primary doctor 09/07/22 Unknown History food supplemt, lactose-reduced 120 ml PO 4X/DAY Check with Unknown History 0.08 gram-1.5 kcal/mL oral liquid primary doctor (Ensure Enlive) loperamide 2 mg tablet 2 mg PO Q6H PRN Constipation 09/07 Unknown History omeprazole 40 mg PO/SL DAILY Check with 09/07 Unknown History primary doctor atorvastatin 80 mg tablet 20 mg (1/4 x 80 mg) PO QHS #30 tab s 09/08/22 Unknown Rx cephalexin 500 mg capsule 500 mg PO BID #12 caps 09/08/22 Un known Rx amoxicillin 875 mg-potassium 875 mg (0.875 x 875-125 mg) PO Unknown Rx clavulanate 125 mg tablet Q12H #10 TABLETS Allergy/AdvReac Type Severity Reaction Status Date / Time acetaminophen (From Percocet) Allergy Other Verified 01/06/25 14:05 oxycodone (From Percocet) Allergy Other Verified 01/06/25 14:05 codeine AdvReac Nausea Verified 01/06/25 14:05 dizziness oxycodone HCl (From Percocet) AdvReac Nausea Verified 01/06/25 14:05 dizziness Family History Father Diabetes Dementia Surgical History S/P ORIF (open reduction internal fixation) fracture History of surgery on wrist History of cataract surgery History of ankle surgery Social History household members: none Smoking Status: Never smoker substance use type: does not use Vital Signs Vital Signs Vital Signs: 02/23/25 13:26 Temperature 97.2 F L Temperature Source Temporal Pulse Rate 84 Respiratory Rate 14 Blood Pressure 96/76 Blood Pressure Mean 82 Blood Pressure Source Monitor Blood Pressure Position Supine Blood Pressure Location Left Arm Weight Weight: 95 lb Body Mass Index (B (more content not included)... Normal [facility] History AND Physic vanessa 02-17-2025 Wound Ctr History & Physical [facility] [address] [place] [address] H P Exam - Wound Care 02/17/25 1127 MR#: [id number] Acct: [id number] Name: GERALDINE HAIRSTON Rep #: [id number] : 1950 74 From: Cedric Gibbons MD PCP: Dr. Chance Kolb MD Status:REG RCR Location: History of Present Illness Date of Service: 02/16/25 Chief Complaint: Traumatic avulsion injury of the left medial calf History of Wound: This is a 74-year-old female who sustained a traumatic injury to her left medial calf on January 01, 2025. At the time of her injury, she presented to the [facility] Emergency Department, where she was found to have an avulsion injury with a significant adherent cutaneous flap. The injury was caused by the nails of her dog, who had jumped off the couch. In the Emergency Department, the flap was sutured in place using seven 5-0 nylon sutures. The patient was placed on Keflex and Augmentin orally, and was discharged. The patient is generally healthy for her age, though has a history of ovvx-xuhw-akghqtgxhlclws a, GERD, hypertension, hypothyroidism, and osteoporosis. She denies a history of diabetes mellitus, myocardial infarction, cerebrovascular accident, renal disease, and pulmonary disease. Her BMI is 19.5. She is . [facility] Medical History Non-pressure chronic ulcer of left calf with fat layer exposed Traumatic open wound of lower leg Avulsion injury GERD (gastroesophageal reflux disease) HTN (hypertension) Hypothyroidism Depression Anxiety Home Medications ???Medication ???Instructions ???Recorded ???Last Taken ???Type levothyroxine 25 mcg tablet 25 mcg PO DAILY Check with primary 02/07/15 09/29/16 09:00 History doctor Bacillus coagulans-inulin 1 1 ea PO DAILY Check with primary 0 12/07/15 09/29/16 09:00 History billion cell-250 mg capsule doctor (Probiotic Formula (inulin)) gabapentin 100 mg capsule 600 mg PO BID Check with primary 0 12/07/15 09/29/16 21:00 History doctor nifedipine 60 mg tablet,extended 180 mg PO DAILY Check with primary 12/07/15 09/29/16 09:00 History release 24 hr doctor pantoprazole 20 mg tablet,delayed 20 mg PO DAILY STOMACHE 12/07/15 09/29/16 09:00 History release paroxetine HCl 25 mg 75 mg PO DAILY depression 12/07/15 09/29/16 09:00 History tablet,extended release 24 hr (Paxil CR) aspirin 325 mg tablet,delayed 325 mg PO DAILY HEART 04/26/16 09:00 History release buspirone 5 mg tablet 30 mg PO BID Check with primary 09/29/16 21:00 History doctor budesonide 3 mg 9 mg PO DAILY Check with primary 0 09/30/16 Unknown History capsule,delayed,extended release doctor (Entocort EC) lorazepam 0.5 mg tablet 0.5 mg PO Q6H PRN PRN Anxiety ##10 10/03/16 Unknown Rx dicyclomine 20 mg tablet 20 mg PO TID Check with primary Unknown History doctor Metamucil Check with primary doctor 09/07/22 Unknown History food supplemt, lactose-reduced 120 ml PO 4X/DAY Check with Unknown History 0.08 gram-1.5 kcal/mL oral liquid primary doctor (Ensure Enlive) loperamide 2 mg tablet 2 mg PO Q6H PRN Constipation 09/07 Unknown History omeprazole 40 mg PO/SL DAILY Check with 09/07 Unknown History primary doctor atorvastatin 80 mg tablet 20 mg (1/4 x 80 mg) PO QHS #30 tab s 09/08/22 Unknown Rx cephalexin 500 mg capsule 500 mg PO BID #12 caps 09/08/22 Un known Rx amoxicillin 875 mg-potassium 875 mg (0.875 x 875-125 mg) PO Unknown Rx clavulanate 125 mg tablet Q12H #10 TABLETS Allergy/AdvReac Type Severity Reaction Status Date / Time acetaminophen (From Percocet) Allergy Other Verified 01/06/25 14:05 oxycodone (From Percocet) Allergy Other Verified 01/06/25 14:05 codeine AdvReac Nausea Verified 01/06/25 14:05 dizziness oxycodone HCl (From Percocet) AdvReac Nausea Verified 01/06/25 14:05 dizziness Family History Father Diabetes Dementia Surgical History S/P ORIF (open reduction internal fixation) fracture History of surgery on wrist History of cataract surgery History of ankle surgery Social History household members: none Smoking Status: Never smoker substance use type: does not use Vital Signs Vital Signs Vital Signs: 02/16/25 13:06 Temperature 97.2 F L Temperature Source Temporal Pulse Rate 85 Respiratory Rate 16 Blood Pressure 115/64 Blood Pressure Mean 81 Blood Pressure Source Monitor Blood Pressure Position Semi-Fowlers Blood Pressure Location Right Arm Oxygen Delivery Method Room Air Weight (more content not included)... Normal [facility] History AND Physic vanessa 02-10-2025 Wound Ctr History & Physical [facility] [address] [facility] [place] [address] H P Exam - Wound Care 02/10/25 1015 MR#: [id number] Acct: [id number] Name: GERALDINE HAIRSTON Rep #: [id number] : 1950 74 From: Cedric Gibbons MD PCP: Dr. Chance Kolb MD Status:REG RCR Location: History of Present Illness Date of Service: 02/09/25 Chief Complaint: Traumatic avulsion injury of the left medial calf History of Wound: This is a 74-year-old female who sustained a traumatic injury to her left medial calf on January 01, 2025. At the time of her injury, she presented to the [facility] Emergency Department, where she was found to have an avulsion injury with a significant adherent cutaneous flap. The injury was caused by the nails of her dog, who had jumped off the couch. In the Emergency Department, the flap was sutured in place using seven 5-0 nylon sutures. The patient was placed on Keflex and Augmentin orally, and was discharged. The patient is generally healthy for her age, though has a history of gagw-skxv-ljgtkthddfacog a, GERD, hypertension, hypothyroidism, and osteoporosis. She denies a history of diabetes mellitus, myocardial infarction, cerebrovascular accident, renal disease, and pulmonary disease. Her BMI is 19.5. She is . [facility] Medical History Non-pressure chronic ulcer of left calf with fat layer exposed Traumatic open wound of lower leg Avulsion injury GERD (gastroesophageal reflux disease) HTN (hypertension) Hypothyroidism Depression Anxiety Home Medications ???Medication ???Instructions ???Recorded ???Last Taken ???Type levothyroxine 25 mcg tablet 25 mcg PO DAILY Check with primary 02/07/15 09/29/16 09:00 History doctor Bacillus coagulans-inulin 1 1 ea PO DAILY Check with primary 0 12/07/15 09/29/16 09:00 History billion cell-250 mg capsule doctor (Probiotic Formula (inulin)) gabapentin 100 mg capsule 600 mg PO BID Check with primary 0 12/07/15 09/29/16 21:00 History doctor nifedipine 60 mg tablet,extended 180 mg PO DAILY Check with primary 12/07/15 09/29/16 09:00 History release 24 hr doctor pantoprazole 20 mg tablet,delayed 20 mg PO DAILY STOMACHE 12/07/15 09/29/16 09:00 History release paroxetine HCl 25 mg 75 mg PO DAILY depression 12/07/15 09/29/16 09:00 History tablet,extended release 24 hr (Paxil CR) aspirin 325 mg tablet,delayed 325 mg PO DAILY HEART 04/26/16 09:00 History release buspirone 5 mg tablet 30 mg PO BID Check with primary 09/29/16 21:00 History doctor budesonide 3 mg 9 mg PO DAILY Check with primary 0 09/30/16 Unknown History capsule,delayed,extended release doctor (Entocort EC) lorazepam 0.5 mg tablet 0.5 mg PO Q6H PRN PRN Anxiety ##10 10/03/16 Unknown Rx dicyclomine 20 mg tablet 20 mg PO TID Check with primary Unknown History doctor Metamucil Check with primary doctor 09/07/22 Unknown History food supplemt, lactose-reduced 120 ml PO 4X/DAY Check with Unknown History 0.08 gram-1.5 kcal/mL oral liquid primary doctor (Ensure Enlive) loperamide 2 mg tablet 2 mg PO Q6H PRN Constipation 09/07 Unknown History omeprazole 40 mg PO/SL DAILY Check with 09/07 Unknown History primary doctor atorvastatin 80 mg tablet 20 mg (1/4 x 80 mg) PO QHS #30 tab s 09/08/22 Unknown Rx cephalexin 500 mg capsule 500 mg PO BID #12 caps 09/08/22 Un known Rx amoxicillin 875 mg-potassium 875 mg (0.875 x 875-125 mg) PO Unknown Rx clavulanate 125 mg tablet Q12H #10 TABLETS Allergy/AdvReac Type Severity Reaction Status Date / Time acetaminophen (From Percocet) Allergy Other Verified 01/06/25 14:05 oxycodone (From Percocet) Allergy Other Verified 01/06/25 14:05 codeine AdvReac Nausea Verified 01/06/25 14:05 dizziness oxycodone HCl (From Percocet) AdvReac Nausea Verified 01/06/25 14:05 dizziness Family History Father Diabetes Dementia Surgical History S/P ORIF (open reduction internal fixation) fracture History of surgery on wrist History of cataract surgery History of ankle surgery Social History household members: none Smoking Status: Never smoker substance use type: does not use Vital Signs Vital Signs Vital Signs: 02/09/25 13:13 Temperature 97.4 F L Temperature Source Temporal Pulse Rate 96 Respiratory Rate 18 Blood Pressure 106/53 L Blood Pressure Mean 70 Blood Pressure Source Monitor Blood Pressure Position Semi-Fowlers Blood Pressure Location Left Arm Oxygen Delivery Method Room Air Weight (more content not included)... Normal [facility] History AND Physic vanessa 02-02-2025 Wound Ctr History & Physical [facility] [address] [place] [address] H P Exam - Wound Care 02/02/25 1643 MR#: [id number] Acct: [id number] Name: GREALDINE HAIRSTON Elin Rep #: [id number] : 1950 74 From: Cedric Gibbons MD PCP: Dr. Chance Kolb MD Status:REG RCR Location: History of Present Illness Date of Service: 02/02/25 Chief Complaint: Traumatic avulsion injury of the left medial calf History of Wound: This is a 74-year-old female who sustained a traumatic injury to her left medial calf on January 01, 2025. At the time of her injury, she presented to the [facility] Emergency Department, where she was found to have an avulsion injury with a significant adherent cutaneous flap. The injury was caused by the nails of her dog, who had jumped off the couch. In the Emergency Department, the flap was sutured in place using seven 5-0 nylon sutures. The patient was placed on Keflex and Augmentin orally, and was discharged. The patient is generally healthy for her age, though has a history of hbxf-stgf-lsklsvmideflin a, GERD, hypertension, hypothyroidism, and osteoporosis. She denies a history of diabetes mellitus, myocardial infarction, cerebrovascular accident, renal disease, and pulmonary disease. Her BMI is 19.5. She is . [facility] Medical History (Updated 02/02/25 @ 16:[address] Cedric Gibbons MD) Non-pressure chronic ulcer of left calf with fat layer exposed Traumatic open wound of lower leg Avulsion injury GERD (gastroesophageal reflux disease) HTN (hypertension) Hypothyroidism Depression Anxiety Home Medications ???Medication ???Instructions ???Recorded ???Last Taken ???Type levothyroxine 25 mcg tablet 25 mcg PO DAILY Check with primary 02/07/15 09/29/16 09:00 History doctor Bacillus coagulans-inulin 1 1 ea PO DAILY Check with primary 0 12/07/15 09/29/16 09:00 History billion cell-250 mg capsule doctor (Probiotic Formula (inulin)) gabapentin 100 mg capsule 600 mg PO BID Check with primary 0 12/07/15 09/29/16 21:00 History doctor nifedipine 60 mg tablet,extended 180 mg PO DAILY Check with primary 12/07/15 09/29/16 09:00 History release 24 hr doctor pantoprazole 20 mg tablet,delayed 20 mg PO DAILY STOMACHE 12/07/15 09/29/16 09:00 History release paroxetine HCl 25 mg 75 mg PO DAILY depression 12/07/15 09/29/16 09:00 History tablet,extended release 24 hr (Paxil CR) aspirin 325 mg tablet,delayed 325 mg PO DAILY HEART 04/26/16 09:00 History release buspirone 5 mg tablet 30 mg PO BID Check with primary 09/29/16 21:00 History doctor budesonide 3 mg 9 mg PO DAILY Check with primary 0 09/30/16 Unknown History capsule,delayed,extended release doctor (Entocorjenny EC) lorazepam 0.5 mg tablet 0.5 mg PO Q6H PRN PRN Anxiety ##10 10/03/16 Unknown Rx dicyclomine 20 mg tablet 20 mg PO TID Check with primary Unknown History doctor Metamucil Check with primary doctor 09/07/22 Unknown History food supplemt, lactose-reduced 120 ml PO 4X/DAY Check with Unknown History 0.08 gram-1.5 kcal/mL oral liquid primary doctor (Ensure Enlive) loperamide 2 mg tablet 2 mg PO Q6H PRN Constipation 09/07 Unknown History omeprazole 40 mg PO/SL DAILY Check with 09/07 Unknown History primary doctor atorvastatin 80 mg tablet 20 mg (1/4 x 80 mg) PO QHS #30 tab s 09/08/22 Unknown Rx cephalexin 500 mg capsule 500 mg PO BID #12 caps 09/08/22 Un known Rx amoxicillin 875 mg-potassium 875 mg (0.875 x 875-125 mg) PO Unknown Rx clavulanate 125 mg tablet Q12H #10 TABLETS Allergy/AdvReac Type Severity Reaction Status Date / Time acetaminophen (From Percocet) Allergy Other Verified 01/06/25 14:05 oxycodone (From Percocet) Allergy Other Verified 01/06/25 14:05 codeine AdvReac Nausea Verified 01/06/25 14:05 dizziness oxycodone HCl (From Percocet) AdvReac Nausea Verified 01/06/25 14:05 dizziness Family History Father Diabetes Dementia Surgical History S/P ORIF (open reduction internal fixation) fracture History of surgery on wrist History of cataract surgery History of ankle surgery Social History household members: none Smoking Status: Never smoker substance use type: does not use Vital Signs Vital Signs Vital Signs: 02/02/25 14:09 Temperature 97.0 F L Temperature Source Temporal Pulse Rate 96 Respiratory Rate 18 Blood Pressure 106/66 Blood Pressure Mean 79 Blood Pressure Source Monitor Blood Pressure Position Semi-Fowlers Blood Pressure Location Right Arm Weight Weight: 95 lb Body Mass I (more content not included)... Normal [facility] CNOVon 01-29-2025 CNOV Office Visit (INTMWS ) -------- GERALDINE HAIRSTON ([id number]) 1950 F Date Time Provider Department 01/29/25 11:00 AM MALACHI LILLY INTMWS During your visit today, we recorded the following information about you: Pulse Respiration Blood pressure Weight 82/minute 18/minute 104/62 42.1 kg Malachi Lilly APRN.DEALERSHIP MANAGER 01/29/2025 12:29 PM Signed SUBJECTIVE Geraldine Worthington Yovanny is a 74 year old female here today for a check up on her medical problems. Chief Complaint Patient presents with: F/U 6 Month: L lower wound, being seen by Wound Center. EUSEBIA Chandler is a 74-year-old female with a history of anxiety, depression, and osteoporosis, presenting for follow-up. Geraldine reports a recent increase in anxiety and depression, which she attributes to spending more time at home and a recent bereavement in the family. She describes feeling really, really anxious during a recent visit to her 's brother's house on Mother's Day, noting that the anxiety persisted from the time she got in the car until she returned home. She believes that her 's reluctance to go places and her own increased time at home may be contributing factors. She also reports feeling a lot of empathy for her cousin, whose recently , stating, It's almost like it happened to me, but it didn't." She has been trying to keep in touch with her cousins, calling them at least once a month, and has gotten closer to them recently. Geraldine has been seeing a therapist, who she spoke with yesterday. She reports that her therapist had an emergency and was unable to see her for about 4 weeks, which she believes may have contributed to her increased anxiety and depression. She notes that her therapist thinks her 's behavior and her increased time at home may be contributing to her anxiety. She also reports that her therapist told her to start exercising, which she has been doing intermittently. She expresses a desire to get back into exercising but is currently focused on healing a wound on her leg. Geraldine reports a recent injury to her leg, which occurred when her dog jumped off the couch and caused a wound. She went to the ER, where she was referred to the wound center. She had an appointment with the wound center on Saturday, where she was told that the wound is in the form of a triangle, referred to as a "flap," and that part of it may and need to be removed. She is currently focused on healing the wound and is hesitant to push herself too hard physically. Seeing Dr. Gibbons with [facility] wound center. Geraldine also reports a persistent cough, sometimes productive, and congestion in the mornings. She uses a saline nasal spray as needed, which she finds helpful. She has a history of osteoporosis and is interested in starting weight lifting in the future. She has a home gym in her basement but is not yet ready to start using it. She inquires whether weight lifting could improve her osteoporosis. Recent lab results from December show normal thyroid function, magnesium levels, and blood counts. Her potassium level was slightly low at 3.3, and her vitamin D level was high at 100, down from a previous level of 113. Her cholesterol levels were stable. Her medications were reviewed today and her list is now up to date. Medications Current Outpatient Medications Medication Sig gabapentin (NEURONTIN) 600 mg tablet Take 1 tablet by mouth two times a day. levothyroxine (SYNTHROID) 25 mcg tablet Take 1 tablet by mouth daily before breakfast. NIFEdipine ER (PROCARDIA XL) 30 mg 24 hr tablet Take 6 tablets by mouth once daily. Adjust as direceted naproxen (NAPROSYN) 500 mg tablet Take 1 tablet by mouth two times a day as needed (for pain/inflammation). Take with food. lidocaine (LIDODERM) 5 % Apply to the right rib cage once a day as needed, wear for 12 hours and then remove. famotidine (PEPCID) 40 mg tablet Take 1 tablet by mouth once daily. atorvastatin (LIPITOR) 20 mg tablet Take 20 mg by mouth daily at bedtime. omeprazole (PRILOSEC) 40 mg capsule Take 1 capsule by mouth once daily. (Dr. Swan--GI)--insurance would not cover 40 mg twice daily dicyclomine (BENTYL) 20 mg tablet Take 1 tablet by mouth three times daily. (Dr. Swan prescribing) budesonide, enteric coated (ENTOCORT EC) 3 mg 24 hr capsule Take 3 capsules by mouth once daily. (Dr. John Swan) Calcium-Cholecalciferol, D3, (CALCIUM 600 + D) 600-125 mg-unit tab Take 1 tablet by mouth twice daily. aspirin, enteric coated (ASPIRIN, ENTERIC COATED) 325 mg EC tablet Take 1 tablet by mouth once daily. PARoxetine (PAXIL) 30 mg tablet Take 2.5 tablets by mouth once daily. (from psychiatrist) busPIRone HCl (BUSPAR) 30 mg tablet Take 1 tablet by mouth twice daily. (Gets from psychiatrist now) LORazepam 0.5 mg Tab Take 1 tablet by mouth three times daily as needed. Prescribing Dr: Tory (more content not included)... Normal [facility] History AND Physic vanessa 01-19-2025 Wound Ctr History & Physical [facility] [address] [place] [address] H P Exam - Wound Care 01/19/25 1900 MR#: [id number] Acct: [id number] Name: GERALDINE HAIRSTON Elin Rep #: [id number] : 1950 74 From: Cedric Gibbons MD PCP: Dr. Chance Kolb MD Status:REG RCR Location: History of Present Illness Date of Service: 01/19/25 Chief Complaint: Traumatic avulsion injury of the left medial calf History of Wound: This is a 74-year-old female who sustained a traumatic injury to her left medial calf on January 01, 2025. At the time of her injury, she presented to the [facility] Emergency Department, where she was found to have an avulsion injury with a significant adherent cutaneous flap. The injury was caused by the nails of her dog, who had jumped off the couch. In the Emergency Department, the flap was sutured in place using seven 5-0 nylon sutures. The patient was placed on Keflex and Augmentin orally, and was discharged. The patient is generally healthy for her age, though has a history of jusu-rwku-nuxnsmmsmzfmnp a, GERD, hypertension, hypothyroidism, and osteoporosis. She denies a history of diabetes mellitus, myocardial infarction, cerebrovascular accident, renal disease, and pulmonary disease. Her BMI is 19.5. She is . [facility] Medical History Traumatic open wound of lower leg Avulsion injury GERD (gastroesophageal reflux disease) HTN (hypertension) Hypothyroidism Depression Anxiety Home Medications ???Medication ???Instructions ???Recorded ???Last Taken ???Type levothyroxine 25 mcg tablet 25 mcg PO DAILY Check with primary 02/07/15 09/29/16 09:00 History doctor Bacillus coagulans-inulin 1 1 ea PO DAILY Check with primary 0 12/07/15 09/29/16 09:00 History billion cell-250 mg capsule doctor (Probiotic Formula (inulin)) gabapentin 100 mg capsule 600 mg PO BID Check with primary 0 12/07/15 09/29/16 21:00 History doctor nifedipine 60 mg tablet,extended 180 mg PO DAILY Check with primary 12/07/15 09/29/16 09:00 History release 24 hr doctor pantoprazole 20 mg tablet,delayed 20 mg PO DAILY STOMACHE 12/07/15 09/29/16 09:00 History release paroxetine HCl 25 mg 75 mg PO DAILY depression 12/07/15 09/29/16 09:00 History tablet,extended release 24 hr (Paxil CR) aspirin 325 mg tablet,delayed 325 mg PO DAILY HEART 04/26/16 09:00 History release buspirone 5 mg tablet 30 mg PO BID Check with primary 09/29/16 21:00 History doctor budesonide 3 mg 9 mg PO DAILY Check with primary 0 09/30/16 Unknown History capsule,delayed,extended release doctor (Entocort EC) lorazepam 0.5 mg tablet 0.5 mg PO Q6H PRN PRN Anxiety ##10 10/03/16 Unknown Rx dicyclomine 20 mg tablet 20 mg PO TID Check with primary Unknown History doctor Metamucil Check with primary doctor 09/07/22 Unknown History food supplemt, lactose-reduced 120 ml PO 4X/DAY Check with Unknown History 0.08 gram-1.5 kcal/mL oral liquid primary doctor (Ensure Enlive) loperamide 2 mg tablet 2 mg PO Q6H PRN Constipation 09/07 Unknown History omeprazole 40 mg PO/SL DAILY Check with 09/07 Unknown History primary doctor atorvastatin 80 mg tablet 20 mg (1/4 x 80 mg) PO QHS #30 tab s 09/08/22 Unknown Rx cephalexin 500 mg capsule 500 mg PO BID #12 caps 09/08/22 Un known Rx amoxicillin 875 mg-potassium 875 mg (0.875 x 875-125 mg) PO Unknown Rx clavulanate 125 mg tablet Q12H #10 TABLETS Allergy/AdvReac Type Severity Reaction Status Date / Time acetaminophen (From Percocet) Allergy Other Verified 01/06/25 14:05 oxycodone (From Percocet) Allergy Other Verified 01/06/25 14:05 codeine AdvReac Nausea Verified 01/06/25 14:05 dizziness oxycodone HCl (From Percocet) AdvReac Nausea Verified 01/06/25 14:05 dizziness Family History Father Diabetes Dementia Surgical History S/P ORIF (open reduction internal fixation) fracture History of surgery on wrist History of cataract surgery History of ankle surgery Social History household members: none Smoking Status: Never smoker substance use type: does not use Vital Signs Vital Signs Vital Signs: 01/19/25 13:46 Temperature 98.0 F Temperature Source Temporal Pulse Rate 92 Respiratory Rate 16 Blood Pressure 98/54 L Blood Pressure Mean 68 Blood Pressure Source Monitor Blood Pressure Position Semi-Fowlers Blood Pressure Location Left Arm Oxygen Delivery Method Room Air Weight Weight: 95 lb Body Mass Index (BMI) 19.5 Ph (more content not included)... Normal [facility] History AND Physic vanessa 01-14-2025 Wound Ctr History & Physical [facility] [address] [place] [address] H P Exam - Wound Care 01/14/252007 MR#: [id number] Acct: [id number] Name: GERALDINE HAIRSTON Rep #: [id number] : 1950 74 From: Cedric Gibbons MD PCP: Dr. Chance oKlb MD Status:REG RCR Location: History of Present Illness Date of Service: 01/13/25 Chief Complaint: Traumatic avulsion injury of the left medial calf History of Wound: This is a 74-year-old female who sustained a traumatic injury to her left medial calf on January 01, 2025. At the time of her injury, she presented to the [facility] Emergency Department, where she was found to have an avulsion injury with a significant adherent cutaneous flap. The injury was caused by the nails of her dog, who had jumped off the couch. In the Emergency Department, the flap was sutured in place using seven 5-0 nylon sutures. The patient was placed on Keflex and Augmentin orally, and was discharged. The patient is generally healthy for her age, though has a history of oksf-getc-skugvbwujetoyo a, GERD, hypertension, hypothyroidism, and osteoporosis. She denies a history of diabetes mellitus, myocardial infarction, cerebrovascular accident, renal disease, and pulmonary disease. Her BMI is 19.5. She is . [facility] Medical History Traumatic open wound of lower leg Avulsion injury GERD (gastroesophageal reflux disease) HTN (hypertension) Hypothyroidism Depression Anxiety Home Medications ???Medication ???Instructions ???Recorded ???Last Taken ???Type levothyroxine 25 mcg tablet 25 mcg PO DAILY Check with primary 02/07/15 09/29/16 09:00 History doctor Bacillus coagulans-inulin 1 1 ea PO DAILY Check with primary 0 12/07/15 09/29/16 09:00 History billion cell-250 mg capsule doctor (Probiotic Formula (inulin)) gabapentin 100 mg capsule 600 mg PO BID Check with primary 0 12/07/15 09/29/16 21:00 History doctor nifedipine 60 mg tablet,extended 180 mg PO DAILY Check with primary 12/07/15 09/29/16 09:00 History release 24 hr doctor pantoprazole 20 mg tablet,delayed 20 mg PO DAILY STOMACHE 12/07/15 09/29/16 09:00 History release paroxetine HCl 25 mg 75 mg PO DAILY depression 12/07/15 09/29/16 09:00 History tablet,extended release 24 hr (Paxil CR) aspirin 325 mg tablet,delayed 325 mg PO DAILY HEART 04/26/16 09:00 History release buspirone 5 mg tablet 30 mg PO BID Check with primary 09/29/16 21:00 History doctor budesonide 3 mg 9 mg PO DAILY Check with primary 0 09/30/16 Unknown History capsule,delayed,extended release doctor (Entocorjenny EC) lorazepam 0.5 mg tablet 0.5 mg PO Q6H PRN PRN Anxiety ##10 10/03/16 Unknown Rx dicyclomine 20 mg tablet 20 mg PO TID Check with primary Unknown History doctor Metamucil Check with primary doctor 09/07/22 Unknown History food supplemt, lactose-reduced 120 ml PO 4X/DAY Check with Unknown History 0.08 gram-1.5 kcal/mL oral liquid primary doctor (Ensure Enlive) loperamide 2 mg tablet 2 mg PO Q6H PRN Constipation 09/07 Unknown History omeprazole 40 mg PO/SL DAILY Check with 09/07 Unknown History primary doctor atorvastatin 80 mg tablet 20 mg (1/4 x 80 mg) PO QHS #30 tab s 09/08/22 Unknown Rx cephalexin 500 mg capsule 500 mg PO BID #12 caps 09/08/22 Un known Rx amoxicillin 875 mg-potassium 875 mg (0.875 x 875-125 mg) PO Unknown Rx clavulanate 125 mg tablet Q12H #10 TABLETS Allergy/AdvReac Type Severity Reaction Status Date / Time acetaminophen (From Percocet) Allergy Other Verified 01/06/25 14:05 oxycodone (From Percocet) Allergy Other Verified 01/06/25 14:05 codeine AdvReac Nausea Verified 01/06/25 14:05 dizziness oxycodone HCl (From Percocet) AdvReac Nausea Verified 01/06/25 14:05 dizziness Family History Father Diabetes Dementia Surgical History S/P ORIF (open reduction internal fixation) fracture History of surgery on wrist History of cataract surgery History of ankle surgery Social History household members: none Smoking Status: Never smoker substance use type: does not use Vital Signs Vital Signs Vital Signs: Weight Weight: 95 lb Body Mass Index (BMI) 19.5 Physical Exam Const alert, oriented x3, no apparent distress, average body habitus and well nourished Constitutional Narrative: The patient's BMI is 19.5. General Appearance: cooperative, comfortable, well kempt and well developed Orientation / Consciousness: awake, oriented to person, oriented to place and oriented to (more content not included)... Normal [facility] History AND Physic vanessa 01-08-2025 Wound Ctr History & Physical [facility] [address] [place] [address] H P Exam - Wound Care 01/08/25 1454 MR#: [id number] Acct: [id number] Name: GERALDINE HAIRSTON Rep #: [id number] : 1950 74 From: Cedric Gibobns MD PCP: Dr. Chance Kolb MD Status:DIS RCR Location: History of Present Illness Date of Service: 01/06/25 Chief Complaint: Traumatic avulsion injury of the left medial calf History of Wound: This is a 74-year-old female who sustained a traumatic injury to her left medial calf on January 01, 2025. At the time of her injury, she presented to the [facility] Emergency Department, where she was found to have an avulsion injury with a significant adherent cutaneous flap. The injury was caused by the nails of her dog, who had jumped off the couch. In the emergency department, the flap was sutured in place using seven 5-0 nylon sutures. The patient was placed on Keflex and Augmentin orally, which continue at this time. Patient is generally healthy for her age, though has a history of [id number] a, GERD, hypertension, hypothyroidism, and osteoporosis. She denies a history of diabetes mellitus, myocardial infarction, cerebrovascular accident, renal disease, and pulmonary disease. Her BMI is 19.5. She is . [facility] Medical History Traumatic open wound of lower leg Avulsion injury GERD (gastroesophageal reflux disease) HTN (hypertension) Hypothyroidism Depression Anxiety Home Medications ???Medication ???Instructions ???Recorded ???Last Taken ???Type levothyroxine 25 mcg tablet 25 mcg PO DAILY Check with primary 02/07/15 09/29/16 09:00 History doctor Bacillus coagulans-inulin 1 1 ea PO DAILY Check with primary 0 12/07/15 09/29/16 09:00 History billion cell-250 mg capsule doctor (Probiotic Formula (inulin)) gabapentin 100 mg capsule 600 mg PO BID Check with primary 0 12/07/15 09/29/16 21:00 History doctor nifedipine 60 mg tablet,extended 180 mg PO DAILY Check with primary 12/07/15 09/29/16 09:00 History release 24 hr doctor pantoprazole 20 mg tablet,delayed 20 mg PO DAILY STOMACHE 12/07/15 09/29/16 09:00 History release paroxetine HCl 25 mg 75 mg PO DAILY depression 12/07/15 09/29/16 09:00 History tablet,extended release 24 hr (Paxil CR) aspirin 325 mg tablet,delayed 325 mg PO DAILY HEART 04/26/16 09:00 History release buspirone 5 mg tablet 30 mg PO BID Check with primary 09/29/16 21:00 History doctor budesonide 3 mg 9 mg PO DAILY Check with primary 0 09/30/16 Unknown History capsule,delayed,extended release doctor (Entocort EC) lorazepam 0.5 mg tablet 0.5 mg PO Q6H PRN PRN Anxiety ##10 10/03/16 Unknown Rx dicyclomine 20 mg tablet 20 mg PO TID Check with primary Unknown History doctor Metamucil Check with primary doctor 09/07/22 Unknown History food supplemt, lactose-reduced 120 ml PO 4X/DAY Check with Unknown History 0.08 gram-1.5 kcal/mL oral liquid primary doctor (Ensure Enlive) loperamide 2 mg tablet 2 mg PO Q6H PRN Constipation 09/07 Unknown History omeprazole 40 mg PO/SL DAILY Check with 09/07 Unknown History primary doctor atorvastatin 80 mg tablet 20 mg (1/4 x 80 mg) PO QHS #30 tab s 09/08/22 Unknown Rx cephalexin 500 mg capsule 500 mg PO BID #12 caps 09/08/22 Un known Rx amoxicillin 875 mg-potassium 875 mg (0.875 x 875-125 mg) PO Unknown Rx clavulanate 125 mg tablet Q12H #10 TABLETS Allergy/AdvReac Type Severity Reaction Status Date / Time acetaminophen (From Percocet) Allergy Other Verified 01/06/25 14:05 oxycodone (From Percocet) Allergy Other Verified 01/06/25 14:05 codeine AdvReac Nausea Verified 01/06/25 14:05 dizziness oxycodone HCl (From Percocet) AdvReac Nausea Verified 01/06/25 14:05 dizziness Family History Father Diabetes Dementia Surgical History S/P ORIF (open reduction internal fixation) fracture History of surgery on wrist History of cataract surgery History of ankle surgery Social History household members: none Smoking Status: Never smoker substance use type: does not use Vital Signs Vital Signs Vital Signs: Weight Weight: 95 lb Body Mass Index (BMI) 19.5 Physical Exam Const alert, oriented x3, no apparent distress, average body habitus and well nourished Constitutional Narrative: The patient's BMI is 19.5. General Appearance: cooperative, comfortable, well kempt and well developed Orientation / Consciousness: awake, oriented to person, oriented to place and orient (more content not included)... Normal [facility] Emergency Department Summary on 01-01-2025 Emergency Department Summary [facility] Medical Records Department [address] [place] [address] Emergency Department Summary 01/01/25 MR#: [id number] Acct: [id number] Name: GERALDINE HAIRSTON Rep #: [id number] : 1950 74 From: Crow Moreno PCP: Dr. Chance Kolb MD Status:REG ER Location: ED HPI History of Present Illness Chief Complaint: Wound Informant: patient and spouse/S.O. Narrative Narrative: Left leg laceration wound after her dog jumped off the couch landing on her leg. States the toenail cut her skin and tore it. She is not on any blood thinners. Tetanus unknown. Bleeding controlled with pressure. No other injuries. Tetanus Immunization: Unknown [facility] Medical History GERD (gastroesophageal reflux disease) HTN (hypertension) Hypothyroidism Depression Anxiety Home Medications ???Medication ???Instructions ???Recorded ???Last Taken ???Type levothyroxine 25 mcg tablet 25 mcg PO DAILY Check with primary 02/07/15 09/29/16 09:00 History doctor Bacillus coagulans-inulin 1 1 ea PO DAILY Check with primary 0 12/07/15 09/29/16 09:00 History billion cell-250 mg capsule doctor (Probiotic Formula (inulin)) gabapentin 100 mg capsule 600 mg PO BID Check with primary 0 12/07/15 09/29/16 21:00 History doctor nifedipine 60 mg tablet,extended 180 mg PO DAILY Check with primary 12/07/15 09/29/16 09:00 History release 24 hr doctor pantoprazole 20 mg tablet,delayed 20 mg PO DAILY STOMACHE 12/07/15 09/29/16 09:00 History release paroxetine HCl 25 mg 75 mg PO DAILY depression 12/07/15 09/29/16 09:00 History tablet,extended release 24 hr (Paxil CR) aspirin 325 mg tablet,delayed 325 mg PO DAILY HEART 04/26/16 09:00 History release buspirone 5 mg tablet 30 mg PO BID Check with primary 09/29/16 21:00 History doctor budesonide 3 mg 9 mg PO DAILY Check with primary 0 09/30/16 Unknown History capsule,delayed,extended release doctor (Entocort EC) lorazepam 0.5 mg tablet 0.5 mg PO Q6H PRN PRN Anxiety ##10 10/03/16 Unknown Rx dicyclomine 20 mg tablet 20 mg PO TID Check with primary Unknown History doctor Metamucil Check with primary doctor 09/07/22 Unknown History food supplemt, lactose-reduced 120 ml PO 4X/DAY Check with Unknown History 0.08 gram-1.5 kcal/mL oral liquid primary doctor (Ensure Enlive) loperamide 2 mg tablet 2 mg PO Q6H PRN Constipation 09/07 Unknown History omeprazole 40 mg PO/SL DAILY Check with 09/07 Unknown History primary doctor atorvastatin 80 mg tablet 20 mg (1/4 x 80 mg) PO QHS #30 tab s 09/08/22 Unknown Rx cephalexin 500 mg capsule 500 mg PO BID #12 caps 09/08/22 Un known Rx amoxicillin 875 mg-potassium 875 mg (0.875 x 875-125 mg) PO Unknown Rx clavulanate 125 mg tablet Q12H #10 TABLETS Allergy/AdvReac Type Severity Reaction Status Date / Time codeine AdvReac Nausea Verified 01/01/25 19:49 dizziness oxycodone HCl (From Percocet) AdvReac Nausea Verified 01/01/25 19:49 dizziness Family History Father Diabetes Dementia Surgical History S/P ORIF (open reduction internal fixation) fracture History of surgery on wrist History of cataract surgery History of ankle surgery Social History household members: none Smoking Status: Never smoker substance use type: does not use ROS ROS ED Constitutional Constitutional ED: Denies fever(s) Gastrointestinal Gastrointestinal: Denies diarrhea, nausea or vomiting Musculoskeletal Musculoskeletal: Reports extremity pain Integumentary Reports wounds; Denies rash Neurologic Neurologic: Denies paresthesias or weakness EXAM Physical Exam Const Vital Signs: 01/01/25 19:49 Temperature 97.2 F L Temperature Source Temporal Pulse Rate 116 H Respiratory Rate 15 Blood Pressure 110/62 Blood Pressure Mean 78 Pulse Ox 96 Oxygen Delivery Method Room Air Positive well nourished and well developed General Appearance ED: well developed and NAD HEENT Reports moist mucous membranes normocephalic and atraumatic Eyes General Eye ED: Yes normal appearance of both eyes Neck full ROM Chest Wall Chest: Negative for tenderness Resp normal respiratory effort and normal air movement Effort and Inspection: symmetric chest movement; Negative for respiratory distress Cardio regular rate, regular rhythm and no murmurs Peripheral Pulses: pulses 2+ throughout GI normal to inspection, nondistended, normoactive bowel sounds and non-tender Palpation: Negative for guarding or rebound tenderness present (more content not included)... Normal [facility] 25(OH)D3 [facility] 2024 25-hydroxyvitamin D3 [Mass/Vol] 100.0 ng/mL High 31.0-80.0 [facility] Comment on above: Order Comment: Alejandra martin Type: BLOOD SPECIMENOrdering Facility: [facility] Address: [address] [place] [address] Result Comment: Clas sification of 25 [place] Vitamin D status: Deficiency/Insufficiency: < or = 30 ng/ml. Sufficiency/Optimal Levels: 31-80 ng/mL Toxicity: > 100 ng/mL. Test performed by chemiluminescent immunoassay. Performed By: #### 1 989-3 ####[facility] [id number] [place] [address] [place] CBC panel Auto (Bld)on 12-17 Erythrocyte distribution width (RBC) [Ratio] 13.9 % Normal 11.5-15.0 [facility] Comment on above: Order Comment: Alejandra martin Type: BLOOD SPECIMEN Ordering Facility: [facility] Address: [address] [place] [address] Performed By: #### 5 8410-2 #### [facility] CLIA [id number] [address] [place] [address] [place] Hematocrit (Bld) [Volume fraction] 42.5 % Normal 36.0-46.0 [facility] Comment on above: Order Comment: Speci men Type: BLOOD SPECIMEN Ordering Facility: [facility] Address: [address] [place] [address] Performed By: #### 5 8410-2 #### [facility] CLIA [id number] [address] [place] [address] [place] Hemoglobin (Bld) [Mass/Vol] 13.9 g/dL Normal 11.5-15.5 [facility] Comment on above: Order Comment: Speci men Type: BLOOD SPECIMEN [facility]ing [facility]: [facility] Address: [address] [place] [address] Performed By: #### 5 8410-2 #### [facility] CLIA [id number] [address] [place] [address] [place] MCH (RBC) [Entitic mass] 30.5 pg Normal 26.0-34.0 [facility] Comment on above: Order Comment: Speci men Type: BLOOD SPECIMEN [facility]ing [facility]: [facility] Address: [address] [place] [address] Performed By: #### 5 8410-2 #### [facility] CLIA [id number] [address] [place] [address] [place] MCHC (RBC) [Mass/Vol] 32.7 g/dL Normal 30.5-36.0 [facility] Comment on above: Order Comment: Speci men Type: BLOOD SPECIMEN [facility]: [facility] Address: [address] [place] [address] Performed By: #### 5 8410-2 #### [facility] CLIA [id number] [address] [place] [address] [place] MCV (RBC) [Entitic vol] 93.4 fL Normal 80.0-100.0 [facility] Comment on above: Order Comment: Speci men Type: BLOOD SPECIMEN [facility] Address: [address] [place] [address] Performed By: #### 5 8410-2 #### [facility] CLIA [id number] [address] [place] [address] [place] Nucleated RBC (Bld) [#/Vol] 10*3/uL Normal <0.01 [facility] Comment on above: Order Comment: Speci men Type: BLOOD SPECIMEN [facility] Address: [address] [place] [address] Performed By: #### 5 8410-2 #### [facility] CLIA [id number] [address] [place] [address] [place] Platelet mean volume (Bld) [Entitic vol] 10.4 fL Normal 9.0-12.7 [facility] Comment on above: Order Comment: Speci men Type: BLOOD SPECIMEN [facility]: [facility] Address: [address] [place] [address] Performed By: #### 5 8410-2 #### [facility] CLIA [id number] [address] [place] [address] [place] Platelets (Bld) [#/Vol] 266 10*3/uL Normal 150-400 [facility] Comment on above: Order Comment: Speci men Type: BLOOD SPECIMEN [facility] Address: [address] [place] [address] Performed By: #### 5 8410-2 #### [facility] CLIA [id number] [address] [place] [address] [place] RBC (Bld) [#/Vol] 4.55 10*6/uL Normal 3.90-5.20 [facility] Comment on above: Order Comment: Speci men Type: BLOOD SPECIMEN [facility] Address: [address] [place] [address] Performed By: #### 5 8410-2 #### [facility] CLIA [id number] [address] [place] [address] [place] WBC (Bld) [#/Vol] 9.87 10*3/uL Normal 3.70-11.00 [facility] Comment on above: Order Comment: Speci men Type: BLOOD SPECIMEN [facility] Address: [address] [place] [address] Performed By: #### 5 8410-2 #### [facility] CLIA [id number] [address] [place] [address] [place] Comprehensive metabolic 2000 panelon 12-17-2024 Albumin [Mass/Vol] 4.5 g/dL Normal 3.9-4.9 [facility] Comment on above: Order Comment: Speci men Type: BLOOD SPECIMENOrdering Facility: [facility] Address: [address] [place] [address] Performed By: #### 2 4323-8, 70103-9, 3024-7, 3051-0 ####[facility] [id number] [place] [address] [place] ALP [Catalytic activity/Vol] 58 U/L Normal 34-123 [facility] Comment on above: Order Comment: Speci men Type: BLOOD SPECIMENOrdering Facility: [facility] Address: [address] [place] [address] Performed By: #### 2 4323-8, 30787-0, 3024-7, 3051-0 ####[facility] [id number] [place] [address] [place] ALT [Catalytic activity/Vol] 21 U/L Normal 7-38 [facility] Comment on above: Order Comment: Speci men Type: BLOOD SPECIMENOrdering Facility: [facility] Address: [address] [place] [address] Performed By: #### 2 4323-8, 06647-6, 3024-7, 3051-0 ####[facility] [id number] [place] [address] [place] Anion gap [Moles/Vol] 15 mmol/L Normal 8-15 [facility] Comment on above: Order Comment: Speci men Type: BLOOD SPECIMENOrdering Facility: [facility] Address: [address] [place] [address] Performed By: #### 2 4323-8, 59391-3, 3024-7, 3051-0 ####[facility] [id number] [place] [id number] [place] AST [Catalytic activity/Vol] 20 U/L Normal 13-35 [facility] Comment on above: Order Comment: Speci men Type: BLOOD SPECIMENOrdering Facility: [facility] Address: [address] [place] [address] Performed By: #### 2 4323-8, 28269-6, 3024-7, 3051-0 ####[facility] [id number] [place] [address] [place] Bilirubin [Mass/Vol] 0.3 mg/dL Normal 0.2-1.3 [facility] Comment on above: Order Comment: Speci men Type: BLOOD SPECIMENOrdering Facility: [facility] Address: [address] [place] [address] Performed By: #### 2 4323-8, 30630-5, 3024-7, 3051-0 ####[facility] [id number] [place] [id number] [place] Calcium [Mass/Vol] 9.4 mg/dL Normal 8.5-10.2 [facility] Comment on above: Order Comment: Speci men Type: BLOOD SPECIMENOrdering Facility: [facility] Address: [address] [place] [address] Performed By: #### 2 4323-8, 15124-1, 3024-7, 3051-0 ####[facility] [id number] [place] [id number] [place] Chloride [Moles/Vol] 102 mmol/L Normal 98-107 [facility] Comment on above: Order Comment: Speci men Type: BLOOD SPECIMENOrdering Facility: [facility] Address: [address] [place] [address] Performed By: #### 2 4323-8, 00598-1, 3024-7, 3051-0 ####[facility] [id number] [place] [address] [place] CO2 [Moles/Vol] 24 mmol/L Normal 22-30 [facility] Comment on above: Order Comment: Speci men Type: BLOOD SPECIMENOrdering Facility: [facility] Address: [address] [place] [address] Performed By: #### 2 4323-8, 03945-6, 3024-7, 3051-0 ####[facility] [id number] [place] [address] [place] Creatinine [Mass/Vol] 0.95 mg/dL Normal 0.58-0.96 [facility] Comment on above: Order Comment: Speci men Type: BLOOD SPECIMENOrdering Facility: [facility] Address: [address] [place] [address] Performed By: #### 2 4323-8, 36872-0, 3024-7, 3051-0 ####[facility] [id number] [place] [address] [place] Creatinine and Glomerular filtration rate.predicted panel (S/P/Bld) 63 mL/min/1.73m??? Normal >=60 [facility] Comment on above: Order Comment: Speci men Type: BLOOD SPECIMENOrdering Facility: [facility] Address: [address] [place] [address] Result Comment: Maryjane mated Glomerular Filtration Rate (eGFR) is calculated using the 2020 CKD-EPI creatinine equation. This equation utilizes serum creatinine, sex, and age as parameters. The creatinine assay has traceable calibration to isotope dilution-mass spectrometry. Refer to KDIGO guidelines for clinical interpretation. In patients with unstable renal function, e.g. those with acute kidney injury, the eGFR may not accurately reflect actual GFR. Performed By: #### 2 4323-8, 36049-1, 3023-7, 305-0 ####[facility] [id number] [facility] [address] [place] [address] [place] Glucose [Mass/Vol] 77 mg/dL Normal 74-99 [facility] Comment on above: Order Comment: Alejandra martin Type: BLOOD SPECIMENOrdering Facility: [facility] Address: [address] [place] [address] Result Comment: The [place] Diabetes Association (ADA) provides guidance for cutoff values for fasting glucose and random glucose. The ADA defines fasting as no caloric intake for at least 8 hours. Fasting plasma glucose results between 100 to 125 mg/dL indicate increased risk for diabetes (prediabetes). Fasting plasma glucose results greater than or equal to 126 mg/dL meet the criteria for diagnosis of diabetes. In the absence of unequivocal hyperglycemia, results should be confirmed by repeat testing. In a patient with classic symptoms of hyperglycemia or hyperglycemic crisis, random plasma glucose results greater than or equal to 200 mg/dL meet the criteria for diagnosis of diabetes. Reference: Standards of Medical Care in Diabetes 2016, [place] [employer] Association. Diabetes Care. 2016.39(Suppl 1). Performed By: #### 2 4323-8, 03893-3, 3024-03, 3050-0 ####[facility] [id number] [facility] [address] [address] [place] Potassium [Moles/Vol] 3.3 mmol/L Low 3.7-5.1 [facility] Comment on above: Order Comment: Alejandra martin Type: BLOOD SPECIMENOrdering Facility: [facility] Address: [address] [place] [address] Performed By: #### 2 4323-8, 80520-6, 3023-7, 305-0 ####[facility] [id number] [facility] [address] [address] [place] Protein [Mass/Vol] 7.1 g/dL Normal 6.3-8.0 [facility] Comment on above: Order Comment: Speci men Type: BLOOD SPECIMENOrdering Facility: [facility] Address: [address] [place] [address] Performed By: #### 2 4323-8, 17190-8, 3024-7, 3051-0 ####[facility]CL[facility] [id number] [place] [address] [place] Sodium [Moles/Vol] 141 mmol/L Normal 136-144 [facility] Comment on above: Order Comment: Speci men Type: BLOOD SPECIMENOrdering Facility: [facility] Address: [address] [place] [address] Performed By: #### 2 4323-8, 57919-2, 3024-7, 3051-0 ####[facility]CL[facility] [id number] [place] [address] [place] Urea nitrogen [Mass/Vol] 20 mg/dL Normal 7-21 [facility] Comment on above: Order Comment: Speci men Type: BLOOD SPECIMENOrdering Facility: [facility] Address: [address] [place] [address] Performed By: #### 2 4323-8, 92829-1, 3024-7, 3051-0 ####[facility] LABCLIA [id number] [place] [id number] [place] Lipid 1996 panelon 5 Cholesterol [Mass/Vol] 305 mg/dL High <200 [facility] Comment on above: Order Comment: Speci men Type: BLOOD SPECIMENOrdering Facility: [facility] Address: [address] [place] [address] Result Comment: <200 mg/dL, Desirable 200-239 mg/dL, Borderline high >239 mg/dL, High Performed By: #### 2 4323-8, 20794-3, 3024-7, 3051-0 ####[facility]CLIA [id number] [place] [address] [place] Cholesterol in HDL [Mass/Vol] 114 mg/dL Normal >39 [facility] Comment on above: Order Comment: Bienvenidosathish martin Type: BLOOD SPECIMENOrdering Facility: [facility] Address: [address] [place] [address] Result Comment: 40-5 9 mg/dL, Acceptable >59 mg/dL, High: Negative risk factor for coronary heart disease <40 mg/dL, Low: Positive risk factor for coronary heart disease Performed By: #### 2 4323-8, 39327-0, 3024-7, 3051-0 ####[facility]CLIA [id number] [address] [place] Cholesterol in LDL [Mass/Vol] 172 mg/dL High <100 [facility] Comment on above: Order Comment: Alejandra mario Type: BLOOD SPECIMENOrdering Facility: [facility] Address: [address] [place] [address] Result Comment: <100 mg/dL, Optimal 100-129 mg/dL, Near optimal/above optimal 130-159 mg/dL, Borderline high 160-189 mg/dL, High >189 mg/dL, Very high Secondary prevention optimal LDL Cholesterol levels are recommended to be < 70 mg/dL Performed By: #### 2 4323-8, 66430-9, 3024-7, 3051-0 ####[facility]CLIA [id number] [address] [facility] Cholesterol in LDL/Cholesterol in HDL [Mass ratio] 1.51 {ratio} Normal <2.54 [facility] Comment on above: Order Comment: Bienvenidosathish martin Type: BLOOD SPECIMENOrdering Facility: [facility] Address: [address] [place] [address] Result Comment: Refe rence: 1. National Cholesterol Education Program ATP III Guideline At-A-Glance Quick Desk Reference: National Heart, Lung, and Blood Wheeler. National Institutes of Health. 2001: NIH Publication No. 01-3305. 2. An International Atherosclerosis Society position paper: global recommendations for the management of dyslipidemia: executive summary, Atherosclerosis. 2014: 232(2):410-413. Performed By: #### 2 4323-8, 23229-2, 3023-7, 305-0 ####[facility]CL[facility] [id number] [address] [address] [place] Cholesterol in VLDL [Mass/Vol] 19 mg/dL Normal <30 [facility] Comment on above: Order Comment: Speci men Type: BLOOD SPECIMENOrdering Facility: [facility] Address: [address] [place] [address] Performed By: #### 2 4323-8, 10978-0, 3024-03, 3050-0 ####[facility]CLIA [id number] [address] [address] [place] Cholesterol non HDL [Mass/Vol] 191 mg/dL High <130 [facility] Comment on above: Order Comment: Speci men Type: BLOOD SPECIMENOrdering Facility: [facility] Address: [address] [place] [address] Result Comment: <130 mg/dL, Optimal 130-159 mg/dL, Near optimal/above optimal 160-189 mg/dL, Borderline high 190-219 mg/dL, High >219 mg/dL, Very high Secondary prevention optimal non HDL Cholesterol levels are recommended to be <100 mg/dL Performed By: #### 2 4323-8, 24544-5, 3024-03, 305-0 ####[facility]CL[facility] [id number] [address] [address] [place] Cholesterol.total/Cho lesterol in HDL [Mass ratio] 2.68 {ratio} Normal <5.10 [facility] Comment on above: Order Comment: Speci men Type: BLOOD SPECIMENOrdering Facility: [facility] Address: [address] [place], [place] [address] Performed By: #### 2 4323-8, 36661-0, 7, 305-0 ####[facility]CLIA [id number] [address] [place] [address] [place] FASTING TIME 12 hrs Normal [facility] Comment on above: Order Comment: Speci men Type: BLOOD SPECIMENOrdering Facility: [facility] Address: [address] [place], [place] [address] Performed By: #### 2 4323-8, 76895-2, 3024-7, 3051-0 ####[facility]CLIA [id number] [address] [place] [address] [place] Triglyceride [Mass/Vol] 95 mg/dL Normal <150 [facility] Comment on above: Order Comment: Speci men Type: BLOOD SPECIMENOrdering Facility: [facility] Address: [address] [place] [address] Result Comment: <150 mg/dL, Normal 150-199 mg/dL, Borderline high 200-499 mg/dL, High >499 mg/dL, Very high Performed By: #### 2 4323-8, 41259-9, 3024-7, 3051-0 ####[facility]CL[facility] [id number] [address] [place] [address] [place] Magnesium SerPl-mCncon 12-17 Magnesium [Mass/Vol] 2.0 mg/dL Normal 1.7-2.3 [facility] Comment on above: Order Comment: Speci men Type: BLOOD SPECIMENOrdering Facility: [facility] Address: [address] [place] [address] Performed By: #### 1 9123-9, 3016-3 ####[facility]CL[facility] [id number] [address] [address] [place] T3Free SerPl-mCncon 12-18-19 25 Free T3 [Mass/Vol] 2.2 pg/mL Low 2.3-4.1 [facility] Comment on above: Order Comment: Speci men Type: BLOOD SPECIMENOrdering Facility: [facility] Address: [address] [place], [place] [address], [place] [address] Performed By: #### 2 4323-8, 58695-2, 3024-7, 3051-0 ####[facility] LABIA [id number] [place] [address] [place] T4 Free SerPl-mCncon 025 Free T4 [Mass/Vol] 1.3 ng/dL Normal 0.9-1.7 [facility] Comment on above: Order Comment: Speci men Type: BLOOD SPECIMENOrdering Facility: [facility] Address: [address] [place] [address] Performed By: #### 2 4323-8, 95397-9, 3024-7, 3051-0 ####[facility] LABIA [id number] [place] [address] [place] TSH SerPl-aCncon 12-17-2024 TSH Qn 1.940 m[IU]/L Normal 0.270-4.200 [facility] Comment on above: Order Comment: Speci men Type: BLOOD SPECIMENOrdering Facility: [facility] Address: [address] [place], [place] [address] [address] Performed By: #### 1 9123-9, 3016-3 ####[facility] [id number] [address] [place] Sandra [facility] GERALDINE HAIRSTON ([id number]) 1950 F Date Time Provider Department 10/09/24 NGUYỄN STRINGER INTWS During your visit today, we recorded the following information about you: Ann Marie Wylie RN 2024 12:57 PM Signed Patient calls and states that she has been having issues with frequent urination. Patient lower abdomen discomfort. Patient came into lab on 10/06/2024 and did urinalysis. Patient asking if provider can advise on this? Please review and advise, DANYELL Bishop Terri, MIMI.LEAD BURNER SUPERVISOR 2024 3:53 PM Signed Urinalysis shows bacteria no other abnormal findings. If still with dysuria urgency frequency can send the antibiotic. Culture not completed. Rx macrobid x 7 days to DDM. Beth Linda LPN 2024 4:19 PM Signed Patient notified of providers message and verbalized understanding. Allergies As of Date: 2024 Noted Allergy Reaction CODEINE 06/06/2005 Comments: Nausea,dizziness PERCOCET (OXYCODONE-ACETAMINOPHEN )06/06/2005 Comments: nausea, dizziness Date Reviewed: 07/27/2024 Reviewed by: Beth Linda LPN - Fully Assessed Reason for Visit: Results [95] Primary Visit Diagnosis:UTI symptoms [R39.9] Order(s):nitrofurantoin monohydrate and macrocrystal (MACROBID) 100 mg capsuleTake 1 capsule by mouth two times a day with meals for 7 days.Disp: 14 capsuleRfl: 0 Prescriptions as of 2024 - nitrofurantoin monohydrate and macrocrystal (MACROBID) 100 mg capsule Take 1 capsule by mouth two times a day with meals for 7 days. - gabapentin (NEURONTIN) 600 mg tablet Take 1 tablet by mouth two times a day. - levothyroxine (SYNTHROID) 25 mcg tablet Take 1 tablet by mouth daily before breakfast. - NIFEdipine ER (PROCARDIA XL) 30 mg 24 hr tablet Take 6 tablets by mouth once daily. Adjust as direceted - naproxen (NAPROSYN) 500 mg tablet Take 1 tablet by mouth two times a day as needed (for pain/inflammation). Take with food. - lidocaine (LIDODERM) 5 % Apply to the right rib cage once a day as needed, wear for 12 hours and then remove. - famotidine (PEPCID) 40 mg tablet Take 1 tablet by mouth once daily. - atorvastatin (LIPITOR) 20 mg tablet Take 20 mg by mouth daily at bedtime. - omeprazole (PRILOSEC) 40 mg capsule Take 1 capsule by mouth once daily. (Dr. Swan--GI)--insurance would not cover 40 mg twice daily - dicyclomine (BENTYL) 20 mg tablet Take 1 tablet by mouth three times daily. (Dr. Swan prescribing) - budesonide, enteric coated (ENTOCORT EC) 3 mg 24 hr capsule Take 3 capsules by mouth once daily. (Dr. John Swan) - Calcium-Cholecalciferol, D3, (CALCIUM 600 + D) 600-125 mg-unit tab Take 1 tablet by mouth twice daily. - aspirin, enteric coated (ASPIRIN, ENTERIC COATED) 325 mg EC tablet Take 1 tablet by mouth once daily. - PARoxetine (PAXIL) 30 mg tablet Take 2.5 tablets by mouth once daily. (from psychiatrist) - busPIRone HCl (BUSPAR) 30 mg tablet Take 1 tablet by mouth twice daily. (Gets from psychiatrist now) - LORazepam 0.5 mg Tab Take 1 tablet by mouth three times daily as needed. Prescribing Dr: Keely Moore MD - DAILY MULTIVITAMIN TAB - IMODIUM A-D 2 MG TAB Take 2 mg by mouth as needed (When needed). - METAMUCIL SMOOTH TEXTURE PACKET one tablespoon in the am with a full glass of water and one tablespoon again in the pm again with a full glass of water daily. - SALINE MIST 0.65 % NASAL SPRAY AEROSOL Two sprays each nostril twice daily. Problem List As Of Date 2024 Noted Resolved REG ENTERITIS, LG INTEST [K50.10] 06/06/2005 IRRITABLE COLON [K58.9] 06/06/2005 Osteoporosis [M81.0] 06/06/2005 Anxiety state [F41.1] 06/06/2005 Depression [F32.A] 06/06/2005 CARPAL TUNNEL SYNDROME [G56.00] 06/04/2006 BRONCHITIS PERIODIC [J20.9] 10/10/2006 12/31/2023 Melanocytic Nevus: post scalp AND nape/neck: IDN *06/27/2010 Seborrheic Keratosis [L82.1] 06/27/2010 Solar lentigo [L81.4] 06/27/2010 Actinic Damage///Sun-damaged skin [L57.8] 06/27/2010 GERD (gastroesophageal reflux disease) [K21.9] 08/01/2010 Sinus congestion [R09.81] 09/12/2013 12/31/2023 Hypothyroidism [E03.9] 01/29/2014 Abnormal mammogram, unspecified [R92.8] 12/30/2014 Raynauds syndrome [I73.00] Chronic right shoulder pain [M25.511, G89.29] 07/27/2019 Gait instability [R26.81] 07/17/2024 Prescriptions ordered this encounter Disp Refills Start End NITROFURANTOIN MONOHYDRATE AND MACROCR* 14 c* 0 2024 10/16/2024 Route: ORAL Sig: Take 1 capsule by mouth two times a day with meals for 7 days. Encounter Status:Closed by BETH LINDA on 10/09/24 Normal [facility] Urinalysis complete panel (U )on 10-06-2024 BACTERIA UL >9821 High Negative [facility] Comment on above: Order Comment: Speci men Type: BLOOD SPECIMEN [facility] Address: [address] [place] [address] Performed By: #### 2 4321-2 #### [facility] CLIA [id number] [address] [place] [address] [place] Bilirubin Ql (U) Negative Normal Negative [facility] Comment on above: Order Comment: Speci men Type: BLOOD SPECIMEN [facility] Address: [address] [place] [address] Performed By: #### 2 4321-2 #### [facility] CLIA [id number] [address] [place] [address] [place] Clarity (Unsp spec) Clear Normal Clear [facility] Comment on above: Order Comment: Speci men Type: BLOOD SPECIMEN [facility] Address: [address] [place] [address] Performed By: #### 2 4321-2 #### [facility] CLIA [id number] [address] [place] [address] [place] Color (U) Yellow Normal Yellow [facility] Comment on above: Order Comment: Speci men Type: BLOOD SPECIMEN [facility] Address: [address] [place] [address] Performed By: #### 2 4321-2 #### [facility] CLIA [id number] [address] [place] [address] [place] Epithelial cells LM.HPF (Urine sed) [#/Area] None Seen Normal [facility] Comment on above: Order Comment: Speci men Type: BLOOD SPECIMEN [facility] Address: [address] [place] [address] Performed By: #### 2 4321-2 #### [facility] CLIA [id number] [address] [place] [address] [place] Glucose Test strip (U) [Mass/Vol] Negative Normal Negative [facility] Comment on above: Order Comment: Speci men Type: BLOOD SPECIMEN [facility] Address: [address] [place] [address] Performed By: #### 2 4321-2 #### [facility] CLIA [id number] [address] [place] [address] [place] Hemoglobin Ql (U) Negative Normal Negative [facility] Comment on above: Order Comment: Speci men Type: BLOOD SPECIMEN [facility] Address: [address] [place], [place] [address] Performed By: #### 2 4321-2 #### [facility] CLIA [id number] [address] [place] [address] [place] Hyaline casts (Urine sed) [#/Area] 0 /[LPF] Normal 0 /LPF [facility] Comment on above: Order Comment: Speci men Type: BLOOD SPECIMEN [facility] Address: [address] [place] [address] Performed By: #### 2 4321-2 #### [facility] CLIA [id number] [address] [place] [address] [place] Ketones Ql (U) Negative Normal Negative [facility] Comment on above: Order Comment: Speci men Type: BLOOD SPECIMEN [facility] Address: [address] [place] [address] Performed By: #### 2 4321-2 #### [facility] CLIA [id number] [address] [place] [address] [place] Leukocyte esterase Test strip Ql (U) Negative Normal Negative [facility] Comment on above: Order Comment: Speci men Type: BLOOD SPECIMEN [facility] Address: [address] [place] [address] Performed By: #### 2 4321-2 #### [facility] CLIA [id number] [address] [place] [address] [place] Nitrite Ql (U) Negative Normal Negative [facility] Comment on above: Order Comment: Speci men Type: BLOOD SPECIMEN [facility] Address: [address] [place] [address] Performed By: #### 2 4321-2 #### [facility] CLIA [id number] [address] [place] [address] [place] pH (U) 7.0 [pH] Normal <8.5 [facility] Comment on above: Order Comment: Speci men Type: BLOOD SPECIMEN [facility] Address: [address] [place] [address] Performed By: #### 2 4321-2 #### [facility] CLIA [id number] [address] [place], [place] [address] [place] Protein (U) [Mass/Vol] Negative Normal Negative [facility] Comment on above: Order Comment: Speci men Type: BLOOD SPECIMEN [facility] Address: [address] [place] [address] Performed By: #### 2 4321-2 #### [facility] CLIA [id number] [address] [place] [address] [place] RBC LM.HPF (Urine sed) [#/Area] 0-2 /HPF Normal 0-2 /HPF [facility] Comment on above: Order Comment: Speci men Type: BLOOD SPECIMEN [facility] Address: [address] [place] [address] Performed By: #### 2 4321-2 #### [facility] CLIA [id number] [address] [place] [address] [place] Specific gravity (U) [Rel density] 1.012 Normal 1.005-1.030 [facility] Comment on above: Order Comment: Speci men Type: BLOOD SPECIMEN [facility] Address: [address] [place] [address] Performed By: #### 2 4321-2 #### [facility] CLIA [id number] [address] [place] [address] [place] Urobilinogen Ql (U) 0.2 EU/dL Normal 0.2-1.0 EU/dL [facility] Comment on above: Order Comment: Speci men Type: BLOOD SPECIMEN [facility] Address: [address] [place] [address] Performed By: #### 2 4321-2 #### [facility] CLIA [id number] [address] [place] [address] [place] WBC LM.HPF (Urine sed) [#/Area] 0-5 /HPF Normal 0-5 /HPF [facility] Comment on above: Order Comment: Speci men Type: BLOOD SPECIMEN [facility] Address: [address] [place] [address] Performed By: #### 2 4321-2 #### [facility] CLIA [id number] [address] [place], [place] [address] [place] BD DXA - AXIAL SKELETONon BD DXA - AXIAL SKELETON * * *Final Report* * * DATE OF EXAM: Aug 17 2024 11:21AM WRB 0804 - BD DXA - AXIAL SKELETON / PROCEDURE REASON: Asymptomatic postmenopausal status * * * * Physician Interpretation * * * * EXAMINATION: DXA BONE DENSITOMETRY BD DXA - AXIAL SKELETON, BD DXA TRABECLR BONE SCORE (TBS) PATIENT DEMOGRAPHICS: Age: 73 years, Gender: Female SCANNER INFORMATION: DXA Model: [email or web address] - Photo[employer] C [id number] Date Scanned: 08/17/2024 11:21 AM CLINICAL HISTORY: DIAGNOSTIC Asymptomatic postmenopausal status . RISK FACTORS FOR OSTEOPOROSIS AND ASSOCIATED FRACTURES REPORTED BY THIS PATIENT: Please refer to Bone Health Questionnaire in the EMR CURRENT THERAPY: Please refer to Bone Health Questionnaire in the EMR RESULTS: Lumbar spine (L1, L2, L3, L4): 1.012 g/cm2, T-score -0.3, Z-score 2.1 Lumbar spine: 2021: 0.928 g/cm2 Statistically significant increase Left Femoral Neck: 0.444 g/cm2, T-score -3.7, Z-score -1.6 Left Femoral Neck: 2021: 0.457 g/cm2 No statistically significant change Left Total Hip: 0.650 g/cm2, T-score -2.4, Z-score -0.6 Left Total Hip: 2021: 0.695 g/cm2 Statistically significant decrease CHANGE IS STATISTICALLY SIGNIFICANT IN THE SPINE OR HIP IF GREATER THAN OR EQUAL TO 0.04 g/cm2 VERTEBRAL FRACTURE ASSESSMENT Not performed. TRABECULAR BONE ASSESSMENT TBS score: 1.205 Bone micro-architecture: Degraded (< or = 1.230) IMPRESSION: THE LOWEST T-SCORE IS -3.7 IN THE LEFT HIP 1) DIAGNOSIS (based on BMD alone): OSTEOPOROSIS Caution: Medical conditions other than osteoporosis may cause low bone density, such as osteomalacia or renal osteodystrophy. Clinical correlation is necessary. 2) FRACTURE RISK (Based on TBS adjusted FRAX): 10-year absolute fracture risk: - major osteoporotic fracture = 35 % - hip fracture = 16 % - A diagnosis of Osteoporosis, a 10 year probability of hip fracture greater than or equal to 3% or a 10 year probability of any major osteoporosis-related fracture greater than or equal to 20% should be considered for treatment. - DXA scanner generated FRAX calculations may slightly differ from online FRAX calculations due to differences in software versions. - All recommendations and calculations are to be considered as guidelines and should not replace sound clinical judgement - Caution: Fracture risk may be increased independent of BMD in patients with corticosteroid use, age greater than 65 years, or a history of prior fragility fracture. RECOMMENDATIONS: Follow-up in 2 years or as clinically indicated. Patients that are taking corticosteroids, are transplant recipients or have hyperparathyroidism should have annual follow-up. Follow-up scans should always be done on the same machine for accurate comparison. FOR MORE INFORMATION ABOUT DIAGNOSIS AND TREATMENT: [facility] for Osteoporosis and Metabolic Bone Disease:? [email or web address] [email or web address] National Osteoporosis Foundation:? www.nof.org International Society of Clinical Densitometry [email or web address] Prescription Clerk Lenses: BAILEY Transcribe Date/Time: Aug 17 2024 3:29P Dictated by : OLIVE KEITA MD This examination was interpreted and the report reviewed and electronically signed by: OLIVE KEITA MD on Aug 17 2024 3:33PM EST [id number] -3.7 Normal [facility] BD DXA TRABECLR BONE SCORE ( TBS)on 08-17-2024 BD DXA TRABECLR BONE SCORE (TBS) * * *Final Report* * * DATE OF EXAM: Aug 17 2024 11:21AM [facility] 0801 - BD DXA TRABECLR BONE SCORE (TBS) / PROCEDURE REASON: Asymptomatic postmenopausal status * * * * Physician Interpretation * * * * EXAMINATION: DXA BONE DENSITOMETRY BD DXA - AXIAL SKELETON, BD DXA TRABECLR BONE SCORE (TBS) PATIENT DEMOGRAPHICS: Age: 73 years, Gender: Female SCANNER INFORMATION: DXA Model: [email or web address] - [employer] C [id number] Date Scanned: 08/17/2024 11:21 AM CLINICAL HISTORY: DIAGNOSTIC Asymptomatic postmenopausal status . RISK FACTORS FOR OSTEOPOROSIS AND ASSOCIATED FRACTURES REPORTED BY THIS PATIENT: Please refer to Bone Health Questionnaire in the EMR CURRENT THERAPY: Please refer to Bone Health Questionnaire in the EMR RESULTS: Lumbar spine (L1, L2, L3, L4): 1.012 g/cm2, T-score -0.3, Z-score 2.1 Lumbar spine: 2021: 0.928 g/cm2 Statistically significant increase Left Femoral Neck: 0.444 g/cm2, T-score -3.7, Z-score -1.6 Left Femoral Neck: 2021: 0.457 g/cm2 No statistically significant change Left Total Hip: 0.650 g/cm2, T-score -2.4, Z-score -0.6 Left Total Hip: 2021: 0.695 g/cm2 Statistically significant decrease CHANGE IS STATISTICALLY SIGNIFICANT IN THE SPINE OR HIP IF GREATER THAN OR EQUAL TO 0.04 g/cm2 VERTEBRAL FRACTURE ASSESSMENT Not performed. TRABECULAR BONE ASSESSMENT TBS score: 1.205 Bone micro-architecture: Degraded (< or = 1.230) IMPRESSION: THE LOWEST T-SCORE IS -3.7 IN THE LEFT HIP 1) DIAGNOSIS (based on BMD alone): OSTEOPOROSIS Caution: Medical conditions other than osteoporosis may cause low bone density, such as osteomalacia or renal osteodystrophy. Clinical correlation is necessary. 2) FRACTURE RISK (Based on TBS adjusted FRAX): 10-year absolute fracture risk: - major osteoporotic fracture = 35 % - hip fracture = 16 % - A diagnosis of Osteoporosis, a 10 year probability of hip fracture greater than or equal to 3% or a 10 year probability of any major osteoporosis-related fracture greater than or equal to 20% should be considered for treatment. - DXA scanner generated FRAX calculations may slightly differ from online FRAX calculations due to differences in software versions. - All recommendations and calculations are to be considered as guidelines and should not replace sound clinical judgement - Caution: Fracture risk may be increased independent of BMD in patients with corticosteroid use, age greater than 65 years, or a history of prior fragility fracture. RECOMMENDATIONS: Follow-up in 2 years or as clinically indicated. Patients that are taking corticosteroids, are transplant recipients or have hyperparathyroidism should have annual follow-up. Follow-up scans should always be done on the same machine for accurate comparison. FOR MORE INFORMATION ABOUT DIAGNOSIS AND TREATMENT: [facility] for Osteoporosis and Metabolic Bone Disease:? [email or web address] [email or web address] National Osteoporosis Foundation:? [email or web address] International Society of Clinical Densitometry [email or web address] Prescription Clerk Lenses: PSCB Transcribe Date/Time: Aug 17 2024 3:29P Dictated by : OLIVE KEITA MD This examination was interpreted and the report reviewed and electronically signed by: OLIVE KEITA MD on Aug 17 2024 3:33PM EST [id number] -3.7 [facility] DXA Femur [T-score] Bone bridgett moses 08-17-2024 * * *Final Report* * * DATE OF EXAM: Aug 17 2024 11:21AM [facility] 0801 - BD DXA TRABECLR BONE SCORE (TBS) / PROCEDURE REASON: Asymptomatic postmenopausal status * * * * Physician Interpretation * * * * EXAMINATION: DXA BONE DENSITOMETRY BD DXA - AXIAL SKELETON, BD DXA TRABECLR BONE SCORE (TBS) PATIENT DEMOGRAPHICS: Age: 73 years, Gender: Female SCANNER INFORMATION: DXA Model: [email or web address] - [employer] C [id number] Date Scanned: 08/17/2024 11:21 AM CLINICAL HISTORY: DIAGNOSTIC Asymptomatic postmenopausal status . RISK FACTORS FOR OSTEOPOROSIS AND ASSOCIATED FRACTURES REPORTED BY THIS PATIENT: Please refer to Bone Health Questionnaire in the EMR CURRENT THERAPY: Please refer to Bone Health Questionnaire in the EMR RESULTS: Lumbar spine (L1, L2, L3, L4): 1.012 g/cm2, T-score -0.3, Z-score 2.1 Lumbar spine: 2021: 0.928 g/cm2 Statistically significant increase Left Femoral Neck: 0.444 g/cm2, T-score -3.7, Z-score -1.6 Left Femoral Neck: 2021: 0.457 g/cm2 No statistically significant change Left Total Hip: 0.650 g/cm2, T-score -2.4, Z-score -0.6 Left Total Hip: 2021: 0.695 g/cm2 Statistically significant decrease CHANGE IS STATISTICALLY SIGNIFICANT IN THE SPINE OR HIP IF GREATER THAN OR EQUAL TO 0.04 g/cm2 VERTEBRAL FRACTURE ASSESSMENT Not performed. TRABECULAR BONE ASSESSMENT TBS score: 1.205 Bone micro-architecture: Degraded (< or = 1.230) DIVISION OF RADIOLOGY Provider, [facility] Zoie [facility] - 08/17/2024 * * *Final Report* * * DATE OF EXAM: Aug 17 2024 11:21AM [facility] 0801 - BD DXA TRABECLR BONE SCORE (TBS) / PROCEDURE REASON: Asymptomatic postmenopausal status * * * * Physician Interpretation * * * * EXAMINATION: DXA BONE DENSITOMETRY BD DXA - AXIAL SKELETON, BD DXA TRABECLR BONE SCORE (TBS) PATIENT DEMOGRAPHICS: Age: 73 years, Gender: Female SCANNER INFORMATION: DXA Model: [email or web address] - [employer] C [id number] Date Scanned: 08/17/2024 11:21 AM CLINICAL HISTORY: DIAGNOSTIC Asymptomatic postmenopausal status . RISK FACTORS FOR OSTEOPOROSIS AND ASSOCIATED FRACTURES REPORTED BY THIS PATIENT: Please refer to Bone Health Questionnaire in the EMR CURRENT THERAPY: Please refer to Bone Health Questionnaire in the EMR RESULTS: Lumbar spine (L1, L2, L3, L4): 1.012 g/cm2, T-score -0.3, Z-score 2.1 Lumbar spine: 2021: 0.928 g/cm2 Statistically significant increase Left Femoral Neck: 0.444 g/cm2, T-score -3.7, Z-score -1.6 Left Femoral Neck: 2021: 0.457 g/cm2 No statistically significant change Left Total Hip: 0.650 g/cm2, T-score -2.4, Z-score -0.6 Left Total Hip: 2021: 0.695 g/cm2 Statistically significant decrease CHANGE IS STATISTICALLY SIGNIFICANT IN THE SPINE OR HIP IF GREATER THAN OR EQUAL TO 0.04 g/cm2 VERTEBRAL FRACTURE ASSESSMENT Not performed. TRABECULAR BONE ASSESSMENT TBS score: 1.205 Bone micro-architecture: Degraded (< or = 1.230) IMPRESSION IMPRESSION: THE LOWEST T-SCORE IS -3.7 IN THE LEFT HIP 1) DIAGNOSIS (based on BMD alone): OSTEOPOROSIS Caution: Medical conditions other than osteoporosis may cause low bone density, such as osteomalacia or renal osteodystrophy. Clinical correlation is necessary. 2) FRACTURE RISK (Based on TBS adjusted FRAX): 10-year absolute fracture risk: - major osteoporotic fracture = 35 % - hip fracture = 16 % - A diagnosis of Osteoporosis, a 10 year probability of hip fracture greater than or equal to 3% or a 10 year probability of any major osteoporosis-related fracture greater than or equal to 20% should be considered for treatment. - DXA scanner generated FRAX calculations may slightly differ from online FRAX calculations due to differences in software versions. - All recommendations and calculations are to be considered as guidelines and should not replace sound clinical judgement - Caution: Fracture risk may be increased independent of BMD in patients with corticosteroid use, age greater than 65 years, or a history of prior fragility fracture. RECOMMENDATIONS: Follow-up in 2 years or as clinically indicated. Patients that are taking corticosteroids, are transplant recipients or have hyperparathyroidism should have annual follow-up. Follow-up scans should always be done on the same machine for accurate comparison. FOR MORE INFORMATION ABOUT DIAGNOSIS AND TREATMENT: [facility] for Osteoporosis and Metabolic Bone Disease:? [email or web address] kayleen National Osteoporosis Foundation:? [email or web address] International Society of Clinical Densitometry [email or web address] Prescription Clerk Lenses: BAILEY Transcribe Date/Time: Aug 17 2024 3:29P Dictated by : OLIVE KEITA MD This examination was interpreted and the report reviewed and electronically signed by: OLIVE KEITA MD on Aug 17 2024 3:33PM EST [facility] DXA Skeletal system.axial Vi ews for bone densityon 08-17-2024 * * *Final Report* * * DATE OF EXAM: Aug 17 2024 11:21AM [facility] 0804 - BD DXA - AXIAL SKELETON / PROCEDURE REASON: Asymptomatic postmenopausal status * * * * Physician Interpretation * * * * EXAMINATION: DXA BONE DENSITOMETRY BD DXA - AXIAL SKELETON, BD DXA TRABECLR BONE SCORE (TBS) PATIENT DEMOGRAPHICS: Age: 73 years, Gender: Female SCANNER INFORMATION: DXA Model: [email or web address] - [employer] C [id number] Date Scanned: 08/17/2024 11:21 AM CLINICAL HISTORY: DIAGNOSTIC Asymptomatic postmenopausal status . RISK FACTORS FOR OSTEOPOROSIS AND ASSOCIATED FRACTURES REPORTED BY THIS PATIENT: Please refer to Bone Health Questionnaire in the EMR CURRENT THERAPY: Please refer to Bone Health Questionnaire in the EMR RESULTS: Lumbar spine (L1, L2, L3, L4): 1.012 g/cm2, T-score -0.3, Z-score 2.1 Lumbar spine: 2021: 0.928 g/cm2 Statistically significant increase Left Femoral Neck: 0.444 g/cm2, T-score -3.7, Z-score -1.6 Left Femoral Neck: 2021: 0.457 g/cm2 No statistically significant change Left Total Hip: 0.650 g/cm2, T-score -2.4, Z-score -0.6 Left Total Hip: 2021: 0.695 g/cm2 Statistically significant decrease CHANGE IS STATISTICALLY SIGNIFICANT IN THE SPINE OR HIP IF GREATER THAN OR EQUAL TO 0.04 g/cm2 VERTEBRAL FRACTURE ASSESSMENT Not performed. TRABECULAR BONE ASSESSMENT TBS score: 1.205 Bone micro-architecture: Degraded (< or = 1.230) DIVISION OF RADIOLOGY Provider, Deanna Lino [facility] - 08/17/2024 * * *Final Report* * * DATE OF EXAM: Aug 17 2024 11:21AM [facility] 0804 - BD DXA - AXIAL SKELETON / PROCEDURE REASON: Asymptomatic postmenopausal status * * * * Physician Interpretation * * * * EXAMINATION: DXA BONE DENSITOMETRY BD DXA - AXIAL SKELETON, BD DXA TRABECLR BONE SCORE (TBS) PATIENT DEMOGRAPHICS: Age: 73 years, Gender: Female SCANNER INFORMATION: DXA Model: [email or web address] - [employer] C [id number] Date Scanned: 08/17/2024 11:21 AM CLINICAL HISTORY: DIAGNOSTIC Asymptomatic postmenopausal status . RISK FACTORS FOR OSTEOPOROSIS AND ASSOCIATED FRACTURES REPORTED BY THIS PATIENT: Please refer to Bone Health Questionnaire in the EMR CURRENT THERAPY: Please refer to Bone Health Questionnaire in the EMR RESULTS: Lumbar spine (L1, L2, L3, L4): 1.012 g/cm2, T-score -0.3, Z-score 2.1 Lumbar spine: 2021: 0.928 g/cm2 Statistically significant increase Left Femoral Neck: 0.444 g/cm2, T-score -3.7, Z-score -1.6 Left Femoral Neck: 2021: 0.457 g/cm2 No statistically significant change Left Total Hip: 0.650 g/cm2, T-score -2.4, Z-score -0.6 Left Total Hip: 2021: 0.695 g/cm2 Statistically significant decrease CHANGE IS STATISTICALLY SIGNIFICANT IN THE SPINE OR HIP IF GREATER THAN OR EQUAL TO 0.04 g/cm2 VERTEBRAL FRACTURE ASSESSMENT Not performed. TRABECULAR BONE ASSESSMENT TBS score: 1.205 Bone micro-architecture: Degraded (< or = 1.230) IMPRESSION IMPRESSION: THE LOWEST T-SCORE IS -3.7 IN THE LEFT HIP 1) DIAGNOSIS (based on BMD alone): OSTEOPOROSIS Caution: Medical conditions other than osteoporosis may cause low bone density, such as osteomalacia or renal osteodystrophy. Clinical correlation is necessary. 2) FRACTURE RISK (Based on TBS adjusted FRAX): 10-year absolute fracture risk: - major osteoporotic fracture = 35 % - hip fracture = 16 % - A diagnosis of Osteoporosis, a 10 year probability of hip fracture greater than or equal to 3% or a 10 year probability of any major osteoporosis-related fracture greater than or equal to 20% should be considered for treatment. - DXA scanner generated FRAX calculations may slightly differ from online FRAX calculations due to differences in software versions. - All recommendations and calculations are to be considered as guidelines and should not replace sound clinical judgement - Caution: Fracture risk may be increased independent of BMD in patients with corticosteroid use, age greater than 65 years, or a history of prior fragility fracture. RECOMMENDATIONS: Follow-up in 2 years or as clinically indicated. Patients that are taking corticosteroids, are transplant recipients or have hyperparathyroidism should have annual follow-up. Follow-up scans should always be done on the same machine for accurate comparison. FOR MORE INFORMATION ABOUT DIAGNOSIS AND TREATMENT: [facility] for Osteoporosis and Metabolic Bone Disease:? [email or web address] [email or web address] National Osteoporosis Foundation:? [email or web address] International Society of Clinical Densitometry [email or web address] Prescription Clerk Lenses: BAILEY Transcribe Date/Time: Aug 17 2024 3:29P Dictated by : OLIVE KEITA MD This examination was interpreted and the report reviewed and electronically signed by: OLIVE KEITA MD on Aug 17 2024 3:33PM [facility] No Panel InformationOrdered By: [facility] Provider on 08-17-2024 LOWEST T-SCORE -3.7 [facility] No Panel Informationon 08-17 IMPRESSION: THE LOWEST T-SCORE IS -3.7 IN THE LEFT HIP 1) DIAGNOSIS (based on BMD alone): OSTEOPOROSIS Caution: Medical conditions other than osteoporosis may cause low bone density, such as osteomalacia or renal osteodystrophy. Clinical correlation is necessary. 2) FRACTURE RISK (Based on TBS adjusted FRAX): 10-year absolute fracture risk: - major osteoporotic fracture = 35 % - hip fracture = 16 % - A diagnosis of Osteoporosis, a 10 year probability of hip fracture greater than or equal to 3% or a 10 year probability of any major osteoporosis-related fracture greater than or equal to 20% should be considered for treatment. - DXA scanner generated FRAX calculations may slightly differ from online FRAX calculations due to differences in software versions. - All recommendations and calculations are to be considered as guidelines and should not replace sound clinical judgement - Caution: Fracture risk may be increased independent of BMD in patients with corticosteroid use, age greater than 65 years, or a history of prior fragility fracture. RECOMMENDATIONS: Follow-up in 2 years or as clinically indicated. Patients that are taking corticosteroids, are transplant recipients or have hyperparathyroidism should have annual follow-up. Follow-up scans should always be done on the same machine for accurate comparison. FOR MORE INFORMATION ABOUT DIAGNOSIS AND TREATMENT: [facility] for Osteoporosis and Metabolic Bone Disease:? [email or web address] kayleen National Osteoporosis Foundation:? [email or web address] International Society of Clinical Densitometry [email or web address] Prescription Clerk Lenses: BAILEY Transcribe Date/Time: Aug 17 2024 3:29P Dictated by : OLIVE KEITA MD This examination was interpreted and the report reviewed and electronically signed by: OLIVE KEITA MD on Aug 17 2024 3:33PM [facility] DIVISION OF RADIOLOGY Radiology Study observation (narrative) [facility] CNTHERAPYon 08-14-2024 CNTHERAPY OT/PT/Speech Visit (PTWS) -------- GERALDINE HAIRSTON ([id number]) 1950 F Date Time Provider Department 08/14/24 12:30 PM [facility] Date Time Provider Department Center 08/14/2024 12:30 PM [id number] MADRIGAL PTROS[facility] [place] Reason for Visit: PT Discharge [752] Primary Visit Diagnosis:Gait instability [R26.81] Allergies As of Date: 08/14/2024 Noted Allergy Reaction CODEINE 06/06/2005 Comments: Nausea,dizziness PERCOCET (OXYCODONE-ACETAMINOPHEN )06/06/2005 Comments: nausea, dizziness Date Reviewed: 07/27/2024 Reviewed by: Beth Linda LPN - Fully Assessed Prescriptions as of 08/14/2024 - gabapentin (NEURONTIN) 600 mg tablet Take 1 tablet by mouth two times a day. - levothyroxine (SYNTHROID) 25 mcg tablet Take 1 tablet by mouth daily before breakfast. - NIFEdipine ER (PROCARDIA XL) 30 mg 24 hr tablet Take 6 tablets by mouth once daily. Adjust as direceted - naproxen (NAPROSYN) 500 mg tablet Take 1 tablet by mouth two times a day as needed (for pain/inflammation). Take with food. - lidocaine (LIDODERM) 5 % Apply to the right rib cage once a day as needed, wear for 12 hours and then remove. - famotidine (PEPCID) 40 mg tablet Take 1 tablet by mouth once daily. - atorvastatin (LIPITOR) 20 mg tablet Take 20 mg by mouth daily at bedtime. - omeprazole (PRILOSEC) 40 mg capsule Take 1 capsule by mouth once daily. (Dr. Swan--GI)--insurance would not cover 40 mg twice daily - dicyclomine (BENTYL) 20 mg tablet Take 1 tablet by mouth three times daily. (Dr. Swan prescribing) - budesonide, enteric coated (ENTOCORT EC) 3 mg 24 hr capsule Take 3 capsules by mouth once daily. (Dr. John Swan) - Calcium-Cholecalciferol, D3, (CALCIUM 600 + D) 600-125 mg-unit tab Take 1 tablet by mouth twice daily. - aspirin, enteric coated (ASPIRIN, ENTERIC COATED) 325 mg EC tablet Take 1 tablet by mouth once daily. - PARoxetine (PAXIL) 30 mg tablet Take 2.5 tablets by mouth once daily. (from psychiatrist) - busPIRone HCl (BUSPAR) 30 mg tablet Take 1 tablet by mouth twice daily. (Gets from psychiatrist now) - LORazepam 0.5 mg Tab Take 1 tablet by mouth three times daily as needed. Prescribing Dr: Keely Moore MD - DAILY MULTIVITAMIN TAB - IMODIUM A-D 2 MG TAB Take 2 mg by mouth as needed (When needed). - METAMUCIL SMOOTH TEXTURE PACKET one tablespoon in the am with a full glass of water and one tablespoon again in the pm again with a full glass of water daily. - SALINE MIST 0.65 % NASAL SPRAY AEROSOL Two sprays each nostril twice daily. [facility] GERALDINE HAIRSTON ([id number]) 1950 F Date Time Provider Department 08/07/24 CHANCE KOLB INTMWS During your visit today, we recorded the following information about you: Liyah Layne LPN 08/07/2024 11:23 AM Signed patient is still c/o urinary frequency and pressure to have to go. Patient will complete antibiotics today for UTI. PATIENT is wanting to know if she needs checked again? Patient was treated for this UTI in urgent care. Please review and advise further. ADÁN Dalton Terri, APRN.LEAD BURNER SUPERVISOR 08/07/2024 3:24 PM Signed Switch to Bactrrim. Recheck urine order is already placed. She can come in for recheck / OV if she would like, Aquiles Jackson MA 08/07/2024 3:49 PM Signed Left message to call office. 08/07/2024 3:49 PM Courtney Patrick RN 08/12/2024 4:01 PM Signed Addressed in My Chart encounter 08/07/24. Courtney Patrick RN Allergies As of Date: 08/07/2024 Noted Allergy Reaction CODEINE 06/06/2005 Comments: Nausea,dizziness PERCOCET (OXYCODONE-ACETAMINOPHEN )06/06/2005 Comments: nausea, dizziness Date Reviewed: 07/27/2024 Reviewed by: Beth Linda LPN - Fully Assessed Visit Diagnosis:Urinary tract infection with hematuria, site unspecified [N39.0, R31.9] Order(s):sulfamethoxazol e-trimethoprim (BACTRIM DS) 800-160 mg per tabletTake 1 tablet by mouth two times a day for 5 days. Take with foodDisp: 10 tabletRfl: 0 Prescriptions as of 08/12/2024 - sulfamethoxazole-trimeth oprim (BACTRIM DS) 800-160 mg per tablet Take 1 tablet by mouth two times a day for 5 days. Take with food - gabapentin (NEURONTIN) 600 mg tablet Take 1 tablet by mouth two times a day. - levothyroxine (SYNTHROID) 25 mcg tablet Take 1 tablet by mouth daily before breakfast. - NIFEdipine ER (PROCARDIA XL) 30 mg 24 hr tablet Take 6 tablets by mouth once daily. Adjust as direceted - naproxen (NAPROSYN) 500 mg tablet Take 1 tablet by mouth two times a day as needed (for pain/inflammation). Take with food. - lidocaine (LIDODERM) 5 % Apply to the right rib cage once a day as needed, wear for 12 hours and then remove. - famotidine (PEPCID) 40 mg tablet Take 1 tablet by mouth once daily. - atorvastatin (LIPITOR) 20 mg tablet Take 20 mg by mouth daily at bedtime. - omeprazole (PRILOSEC) 40 mg capsule Take 1 capsule by mouth once daily. (Dr. Swan--GI)--insurance would not cover 40 mg twice daily - dicyclomine (BENTYL) 20 mg tablet Take 1 tablet by mouth three times daily. (Dr. Swan prescribing) - budesonide, enteric coated (ENTOCORT EC) 3 mg 24 hr capsule Take 3 capsules by mouth once daily. (Dr. John Swan) - Calcium-Cholecalciferol, D3, (CALCIUM 600 + D) 600-125 mg-unit tab Take 1 tablet by mouth twice daily. - aspirin, enteric coated (ASPIRIN, ENTERIC COATED) 325 mg EC tablet Take 1 tablet by mouth once daily. - PARoxetine (PAXIL) 30 mg tablet Take 2.5 tablets by mouth once daily. (from psychiatrist) - busPIRone HCl (BUSPAR) 30 mg tablet Take 1 tablet by mouth twice daily. (Gets from psychiatrist now) - LORazepam 0.5 mg Tab Take 1 tablet by mouth three times daily as needed. Prescribing Dr: Keely Moore MD - DAILY MULTIVITAMIN TAB - IMODIUM A-D 2 MG TAB Take 2 mg by mouth as needed (When needed). - METAMUCIL SMOOTH TEXTURE PACKET one tablespoon in the am with a full glass of water and one tablespoon again in the pm again with a full glass of water daily. - SALINE MIST 0.65 % NASAL SPRAY AEROSOL Two sprays each nostril twice daily. Problem List As Of Date 08/07/2024 Noted Resolved REG ENTERITIS, LG INTEST [K50.10] 06/06/2005 IRRITABLE COLON [K58.9] 06/06/2005 Osteoporosis [M81.0] 06/06/2005 Anxiety state [F41.1] 06/06/2005 Depression [F32.A] 06/06/2005 CARPAL TUNNEL SYNDROME [G56.00] 06/04/2006 BRONCHITIS PERIODIC [J20.9] 10/10/2006 12/31/2023 Melanocytic Nevus: post scalp AND nape/neck: IDN *06/27/2010 Seborrheic Keratosis [L82.1] 06/27/2010 Solar lentigo [L81.4] 06/27/2010 Actinic Damage///Sun-damaged skin [L57.8] 06/27/2010 GERD (gastroesophageal reflux disease) [K21.9] 08/01/2010 Sinus congestion [R09.81] 09/12/2013 12/31/2023 Hypothyroidism [E03.9] 01/29/2014 Abnormal mammogram, unspecified [R92.8] 12/30/2014 Raynauds syndrome [I73.00] Chronic right shoulder pain [M25.511, G89.29] 07/27/2019 Gait instability [R26.81] 07/17/2024 Prescriptions ordered this encounter Disp Refills Start End NITROFURANTOIN MONOHYDRATE AND MACROCR* 14 c* 0 08/07/2024 08/07/2024 Route: ORAL Sig: Take 1 capsule by mouth two times a day with meals for 7 days. Take this if you are still having burning, urgency or frequency after taking the first 7 days. Take with food SULFAMETHOXAZOLE 800 MG-TRIMETHOPRIM* 10 t* 0 08/07/2024 08/12/2024 Route: ORAL Sig: Take 1 tablet by mouth two times a day for 5 days. Take with food Medications Discont (more content not included)... [facility] CNTHERAPYon 08-07-2024 CNTHERAPY OT/PT/Speech Visit (PTWS) -------- GERALDINE HAIRSTON ([id number]) 1950 F Date Time Provider Department 08/07/24 12:30 PM [facility] MAD[facility] Date Time Provider Department [place] 08/07/2024 12:30 PM [id number] MADRIGAL Reason for Visit: Physical Therapy [503] Primary Visit Diagnosis:Gait instability [R26.81] Allergies As of Date: 08/07/2024 Noted Allergy Reaction CODEINE 06/06/2005 Comments: Nausea,dizziness PERCOCET (OXYCODONE-ACETAMINOPHEN )06/06/2005 Comments: nausea, dizziness Date Reviewed: 07/27/2024 Reviewed by: Beth Linda LPN - Fully Assessed Prescriptions as of 08/07/2024 - nitrofurantoin monohydrate and macrocrystal (MACROBID) 100 mg capsule Take 1 capsule by mouth two times a day with meals for 7 days. Take this if you are still having burning, urgency or frequency after taking the first 7 days. Take with food Patient should start on August 01, 2024. - gabapentin (NEURONTIN) 600 mg tablet Take 1 tablet by mouth two times a day. - levothyroxine (SYNTHROID) 25 mcg tablet Take 1 tablet by mouth daily before breakfast. - NIFEdipine ER (PROCARDIA XL) 30 mg 24 hr tablet Take 6 tablets by mouth once daily. Adjust as direceted - naproxen (NAPROSYN) 500 mg tablet Take 1 tablet by mouth two times a day as needed (for pain/inflammation). Take with food. - lidocaine (LIDODERM) 5 % Apply to the right rib cage once a day as needed, wear for 12 hours and then remove. - famotidine (PEPCID) 40 mg tablet Take 1 tablet by mouth once daily. - atorvastatin (LIPITOR) 20 mg tablet Take 20 mg by mouth daily at bedtime. - omeprazole (PRILOSEC) 40 mg capsule Take 1 capsule by mouth once daily. (Dr. Swan--GI)--insurance would not cover 40 mg twice daily - dicyclomine (BENTYL) 20 mg tablet Take 1 tablet by mouth three times daily. (Dr. Swan prescribing) - budesonide, enteric coated (ENTOCORT EC) 3 mg 24 hr capsule Take 3 capsules by mouth once daily. (Dr. John Swan) - Calcium-Cholecalciferol, D3, (CALCIUM 600 + D) 600-125 mg-unit tab Take 1 tablet by mouth twice daily. - aspirin, enteric coated (ASPIRIN, ENTERIC COATED) 325 mg EC tablet Take 1 tablet by mouth once daily. - PARoxetine (PAXIL) 30 mg tablet Take 2.5 tablets by mouth once daily. (from psychiatrist) - busPIRone HCl (BUSPAR) 30 mg tablet Take 1 tablet by mouth twice daily. (Gets from psychiatrist now) - LORazepam 0.5 mg Tab Take 1 tablet by mouth three times daily as needed. Prescribing Dr: Keely Moore MD - DAILY MULTIVITAMIN TAB - IMODIUM A-D 2 MG TAB Take 2 mg by mouth as needed (When needed). - METAMUCIL SMOOTH TEXTURE PACKET one tablespoon in the am with a full glass of water and one tablespoon again in the pm again with a full glass of water daily. - SALINE MIST 0.65 % NASAL SPRAY AEROSOL Two sprays each nostril twice daily. Energy Management Specialist: Addendum Therapy (PT/OT/Speech/Resp) ID: [id number] 08/07/2024 12:57 PM Author: BAILEY MADRIGAL Signed by BAILEY MADRIGAL PT on 08/07/2024 at 12:57 PM * * * This document replaces document [id number] * * * Document text: Program_ID:[id number] Access Code: [email or web address] URL: [email or web address] Date: 08-07-2024 Prepared By: Bailey Madrigal Program Notes Exercises - Hooklying Single Knee to Chest Stretch - 2-3 x daily - 7 x weekly - 1 sets - 3 reps - Seated Transversus Abdominis Bracing - 2 x daily - 7 x weekly - 2 sets - 10 reps - Supine Posterior Pelvic Tilt - 2 x daily - 7 x weekly - 2 sets - 5 reps - Standing Anti-Rotation Press with Anchored Resistance - 2 x daily - 7 x weekly - 2 sets - 15 reps Normal [facility] THERAPY NTon 08-07-2024 THERAPY NT HNO ID: [id number] Author: BAILEY MADRIGAL PT Service: ? Author Type: Physical Therapist Type: Therapy (PT/OT/Speech/Resp) Filed: 08/07/2024 12:57 Note Text: Program_ID:[id number] Access Code: [email or web address] URL: [email or web address] Date: 08-07-2024 Prepared By: Bailey Madrigal Program Notes Exercises - Hooklying Single Knee to Chest Stretch - 2-3 x daily - 7 x weekly - 1 sets - 3 reps - Seated Transversus Abdominis Bracing - 2 x daily - 7 x weekly - 2 sets - 10 reps - Supine Posterior Pelvic Tilt - 2 x daily - 7 x weekly - 2 sets - 5 reps - Standing Anti-Rotation Press with Anchored Resistance - 2 x daily - 7 x weekly - 2 sets - 15 reps Normal [facility] CNOVon 07-27-2024 CNOV Office Visit (INTMWS ) -------- GERALDINE HAIRSTON ([id number]) 1950 F Date Time Provider Department 07/27/24 12:20 PM NGUYỄN STRINGER INTMWS During your visit today, we recorded the following information about you: Pulse Respiration Blood pressure Weight 88/minute 16/minute 89/54 42 kg Nguyễn Stringer APRN.[employer] SUPERVISOR 07/27/2024 12:54 PM Signed SUBJECTIVE: Shingrix Vaccine(2 of 3) due on 06/19/2016 Bone Density Screening due on 04/11/2024 HPI Geraldine Hairston is a 73 year old female. PMH significant for ACTIVE PROBLEM LIST Regional Enteritis of Large Intestine (Hcc) Irritable Bowel Syndrome Osteoporosis Anxiety State Depression Carpal Tunnel Syndrome Melanocytic Nevus: post scalp AND nape/neck: IDN Seborrheic Keratosis Solar Lentigo Actinic Damage///Sun-damaged skin Gerd (Gastroesophageal Reflux Disease) Hypothyroidism Abnormal Mammogram, Unspecified Raynauds Syndrome Chronic Right Shoulder Pain Gait Instability Presents today for follow-up visit, expressed. Visit to [facility] July 25 2024 for dysuria treated with Macrobid. Today reports feeling improved but still with some dysuria, frequency and urgency. Afebrile, no current back pain. Some abdominal discomfort. Notes prior history of UTI with severe illness. Review of Systems Constitutional: Negative. Neurological: Positive for headaches. Objective BP 89/54 Pulse 88 Resp 16 Wt 42 kg (92 lb 9.5 oz) BMI 20.39 kg/m? Physical Exam Vitals and nursing note reviewed. Constitutional: Appearance: Normal appearance. HENT: Head: Normocephalic. Eyes: Conjunctiva/sclera: Conjunctivae normal. Cardiovascular: Rate and Rhythm: Normal rate. Pulmonary: Effort: Pulmonary effort is normal. Musculoskeletal: Cervical back: Tenderness present. Muscular tenderness present. Skin: General: Skin is warm and dry. Neurological: General: No focal deficit present. Mental Status: She is alert and oriented to person, place, and time. Comments: CN grossly intact ALLERGIES Allergen Reactions Codeine Nausea,dizziness Percocet [Oxycodone* nausea, dizziness Medications nitrofurantoin monohydrate and macrocrystal (MACROBID) 100 mg capsule Take 1 capsule by mouth two times a day with meals for 7 days. phenazopyridine (PYRIDIUM) 200 mg tablet Take 1 tablet by mouth three times a day as needed for up to 3 days. gabapentin (NEURONTIN) 600 mg tablet Take 1 tablet by mouth two times a day. levothyroxine (SYNTHROID) 25 mcg tablet Take 1 tablet by mouth daily before breakfast. NIFEdipine ER (PROCARDIA XL) 30 mg 24 hr tablet Take 6 tablets by mouth once daily. Adjust as direceted naproxen (NAPROSYN) 500 mg tablet Take 1 tablet by mouth two times a day as needed (for pain/inflammation). Take with food. lidocaine (LIDODERM) 5 % Apply to the right rib cage once a day as needed, wear for 12 hours and then remove. famotidine (PEPCID) 40 mg tablet Take 1 tablet by mouth once daily. atorvastatin (LIPITOR) 20 mg tablet Take 20 mg by mouth daily at bedtime. omeprazole (PRILOSEC) 40 mg capsule Take 1 capsule by mouth once daily. (Dr. Swan--GI)--insurance would not cover 40 mg twice daily dicyclomine (BENTYL) 20 mg tablet Take 1 tablet by mouth three times daily. (Dr. Swan prescribing) budesonide, enteric coated (ENTOCORT EC) 3 mg 24 hr capsule Take 3 capsules by mouth once daily. (Dr. John Swan) Calcium-Cholecalciferol, D3, (CALCIUM 600 + D) 600-125 mg-unit tab Take 1 tablet by mouth twice daily. aspirin, enteric coated (ASPIRIN, ENTERIC COATED) 325 mg EC tablet Take 1 tablet by mouth once daily. PARoxetine (PAXIL) 30 mg tablet Take 2.5 tablets by mouth once daily. (from psychiatrist) busPIRone HCl (BUSPAR) 30 mg tablet Take 1 tablet by mouth twice daily. (Gets from psychiatrist now) LORazepam 0.5 mg Tab Take 1 tablet by mouth three times daily as needed. Prescribing Dr: Keely Moore MD DAILY MULTIVITAMIN TAB IMODIUM A-D 2 MG TAB Take 2 mg by mouth as needed (When needed). METAMUCIL SMOOTH TEXTURE PACKET one tablespoon in the am with a full glass of water and one tablespoon again in the pm again with a full glass of water daily. SALINE MIST 0.65 % NASAL SPRAY AEROSOL Two sprays each nostril twice daily. PAST MEDICAL HISTORY Diagnosis Date Anxiety state, unspecified Depressive disorder, not elsewhere classified GERD (gastroesophageal reflux disease) controlled with PPI; follows with Dr. Swan Hypothyroid Irritable bowel syndrome IBS; Dr. Swan--continues follow up; last colonosocpy was at least 2002, possibly 2005. Osteoporosis, unspecified Raynauds syndrome REG ENTERITIS, LG INTEST 06/06/2005 Social History Tobacco Use Smoking status: Never Smokeless tobacco: Never Vaping Use Vaping status: Never Used Substance Use Topics Alcohol use: No Drug use: No ASSESSMENT/PLAN: 1. U (more content not included)... Normal [facility] CNTHERAPYon 07-27-2024 CNTHERAPY OT/PT/Speech Visit (PTWS) -------- GERALDINE HAIRSTON ([id number]) 1950 F Date Time Provider Department 07/27/24 3:30 PM BAILEY MADRIGAL PTROSIE Date Time Provider Department Center 07/27/2024 3:30 PM [id number] MADRIGAL PTWS Adarsh Duval Reason for Visit: Physical Therapy [503] Primary Visit Diagnosis:Gait instability [R26.81] Allergies As of Date: 07/27/2024 Noted Allergy Reaction CODEINE 06/06/2005 Comments: Nausea,dizziness PERCOCET (OXYCODONE-ACETAMINOPHEN )06/06/2005 Comments: nausea, dizziness Date Reviewed: 07/27/2024 Reviewed by: Beth Linda LPN - Fully Assessed Prescriptions as of 07/27/2024 - nitrofurantoin monohydrate and macrocrystal (MACROBID) 100 mg capsule Take 1 capsule by mouth two times a day with meals for 7 days. Take this if you are still having burning, urgency or frequency after taking the first 7 days. Take with food Patient should start on August 01, 2024. - nitrofurantoin monohydrate and macrocrystal (MACROBID) 100 mg capsule Take 1 capsule by mouth two times a day with meals for 7 days. - phenazopyridine (PYRIDIUM) 200 mg tablet Take 1 tablet by mouth three times a day as needed for up to 3 days. - gabapentin (NEURONTIN) 600 mg tablet Take 1 tablet by mouth two times a day. - levothyroxine (SYNTHROID) 25 mcg tablet Take 1 tablet by mouth daily before breakfast. - NIFEdipine ER (PROCARDIA XL) 30 mg 24 hr tablet Take 6 tablets by mouth once daily. Adjust as direceted - naproxen (NAPROSYN) 500 mg tablet Take 1 tablet by mouth two times a day as needed (for pain/inflammation). Take with food. - lidocaine (LIDODERM) 5 % Apply to the right rib cage once a day as needed, wear for 12 hours and then remove. - famotidine (PEPCID) 40 mg tablet Take 1 tablet by mouth once daily. - atorvastatin (LIPITOR) 20 mg tablet Take 20 mg by mouth daily at bedtime. - omeprazole (PRILOSEC) 40 mg capsule Take 1 capsule by mouth once daily. (Dr. Swan--GI)--insurance would not cover 40 mg twice daily - dicyclomine (BENTYL) 20 mg tablet Take 1 tablet by mouth three times daily. (Dr. Swan prescribing) - budesonide, enteric coated (ENTOCORT EC) 3 mg 24 hr capsule Take 3 capsules by mouth once daily. (Dr. John Swan) - Calcium-Cholecalciferol, D3, (CALCIUM 600 + D) 600-125 mg-unit tab Take 1 tablet by mouth twice daily. - aspirin, enteric coated (ASPIRIN, ENTERIC COATED) 325 mg EC tablet Take 1 tablet by mouth once daily. - PARoxetine (PAXIL) 30 mg tablet Take 2.5 tablets by mouth once daily. (from psychiatrist) - busPIRone HCl (BUSPAR) 30 mg tablet Take 1 tablet by mouth twice daily. (Gets from psychiatrist now) - LORazepam 0.5 mg Tab Take 1 tablet by mouth three times daily as needed. Prescribing Dr: Keely Moore MD - DAILY MULTIVITAMIN TAB - IMODIUM A-D 2 MG TAB Take 2 mg by mouth as needed (When needed). - METAMUCIL SMOOTH TEXTURE PACKET one tablespoon in the am with a full glass of water and one tablespoon again in the pm again with a full glass of water daily. - SALINE MIST 0.65 % NASAL SPRAY AEROSOL Two sprays each nostril twice daily. Energy Management Specialist: Therapy (PT/OT/Speech/Resp) ID: [id number] 07/27/2024 3:56 PM Author: BAILEY MADRIGAL Signed by BAILEY MADRIGAL PT on 07/27/2024 at 3:56 PM Document text: Program_ID:[id number] Access Code: [email or web address] URL: [email or web address] Date: 07-27-2024 Prepared By: Bailey Madrigal Program Notes Exercises - Hooklying Single Knee to Chest Stretch - 2-3 x daily - 7 x weekly - 1 sets - 3 reps - Supine Lower Trunk Rotation - 2-3 x daily - 7 x weekly - 2 sets - 10 reps - Seated Transversus Abdominis Bracing - 1 x daily - 7 x weekly - 2 sets - 10 reps Normal [facility] THERAPY NTon 07-27-2024 THERAPY NT HNO ID: [id number] Author: BAILEY MADRIGAL, PT Service: ? Author Type: Physical Therapist Type: Therapy (PT/OT/Speech/Resp) Filed: 07/27/2024 15:56 Note Text: Program_ID:[id number] Access Code: [email or web address] URL: [email or web address] Date: 07-27-2024 Prepared By: Bailey Madrigal Program Notes Exercises - Hooklying Single Knee to Chest Stretch - 2-3 x daily - 7 x weekly - 1 sets - 3 reps - Supine Lower Trunk Rotation - 2-3 x daily - 7 x weekly - 2 sets - 10 reps - Seated Transversus Abdominis Bracing - 1 x daily - 7 x weekly - 2 sets - 10 reps Normal [facility] Bacteria Ur Culton 4 Bacteria identified Cx Nom (U) CULTURE, URINE: Mixed microbiota, including predominantly: ORGANISM ID: 1 >=100,000 CFU/ml Escherichia coli ORGANISM ID: 1 (ESCHERICHIA COLI) ANTIBIOTIC INTERPRETATION WILBERT STATUS REFERENCE RANGE Ampicillin S <=2 F Susceptible <=8 , Intermediate >8 , Resistant >16 Cefazolin S <=4 F Susceptible 0-16 , Intermediate <0 or >16 , Resistant >16 For uncomplicated urinary tract infections, cefazolin results can be used to predict susceptibility or resistance to cephalexin. Ceftriaxone S <=1 F Susceptible <=1 , Intermediate >1 , Resistant >=4 Cefepime S <=1 F Susceptible <=2 , Susceptible-Dose Dependent >2 , Resistant >=16 Ertapenem S <=0.5 F Susceptible <=0.5 , Intermediate >.5 , Resistant >1 Meropenem S <=0.25 F Susceptible <=1 , Intermediate >1 , Resistant >2 Ampicillin/Sulbact S <=2 F Susceptible <=8 , Intermediate >8 , Resistant >16 Piperacillin/Tazobac S <=4 F Susceptible <16 , Susceptible-Dose Dependent >=16 , Resistant >=32 Gentamicin S <=1 F Susceptible <=2 , Intermediate >2 , Resistant >=8 Tobramycin S <=1 F Susceptible <4 , Intermediate >=4 , Resistant >=8 Trimeth sulfameth S <=20 F Susceptible <=40 , Resistant >40 Ciprofloxacin S <=0.25 F Susceptible <0.5 , Intermediate >=.5 , Resistant >=1 Nitrofurantoin S 32 F Susceptible <=32 , Intermediate >32 , Resistant >64 Abnormal [facility] Comment on above: Performed By: #### 6 30-4 ####[facility] LABCLIA [id number] [place] [id number] [facility] CNOVon 07-25-2024 CNOV Office Visit (UCWSTR ) -------- GERALDINE HAIRSTON ([id number]) 1950 F Date Time Provider Department 07/25/24 10:30 AM CARMEN MIRANDA [facility] During your visit today, we recorded the following information about you: Temperature Pulse Respiration Blood pressure 97.3 degrees 83/minute 16/minute 109/71 Weight 42.1 kg Stephanie Garcia 07/25/2024 11:53 AM Addendum ASSESSMENT/PLAN: 1. Dysuria - ICD9: 788.1, ICD10: R30.0 (primary diagnosis) acute - UA positive for hugo esterase and hematuria - Send urine for culture - Begin treatment with Macrobid 100 mg BID for 7 days - Patient education for prevention given - NITROFURANTOIN MONOHYDRATE AND MACROCRYSTAL 100 MG ORAL CAP - PHENAZOPYRIDINE 200 MG TABLET 2. Urinary tract infection with hematuria, site unspecified - ICD9: 599.0, 599.70, ICD10: N39.0, R31.9 - NITROFURANTOIN MONOHYDRATE AND MACROCRYSTAL 100 MG ORAL CAP Discussed plan of care with patient. Reviewed lab results with patient. Patient will be notified if antibiotic needs to change. Answered all of patient's questions. Antibiotic prescribed with instruction on use. Patient advised to follow-up with PCP in 2-3 days. If symptoms fail to improve or worsen patient advised to be seen in the Emergency Department. Patient agreeable with plan and verbalizes understanding. Stephanie Garcia, Student [employer] Complete dose of antibiotic Follow-up with PCP in 2-3 days Monitor for signs of infection, fever, increased pain, nausea and or vomiting in the presence of pain. Carmen Miranda APRN.[facility] 07/25/2024 11:58 AM Signed Subjective Geraldine Hairston is a 73 year old female who presents with symptoms of UTI x 2 weeks. UTI Associated symptoms include frequency and urgency. Pertinent negatives include no nausea and no vomiting. Patient states that she has had urinary symptoms that started greater than 2 weeks ago. She reports dysuria, urinary urgency and urinary frequency with generalized abdominal pain and low back pain. Patient also reports diarrhea x 1 day. She reports having a history of IBS and sees a GI provider in [place]. She states that she recently started physical therapy for her back due to disk narrowing. Patient states that she had some inability to urinate and painful urination but is unsure how long ago. She states that has now resolved but the urinary urgency and frequency have now worsen. She denies fever, nausea, vomiting, vaginal odor and vaginal discharge. She reports eating and drinking well. Review of Systems Constitutional: Negative for fever. HENT: Negative. Eyes: Negative. Respiratory: Negative. Cardiovascular: Negative. Gastrointestinal: Positive for abdominal pain and diarrhea. Negative for nausea and vomiting. Genitourinary: Positive for dysuria, frequency and urgency. Musculoskeletal: Positive for back pain. Skin: Negative. Neurological: Negative. Psychiatric/Behavioral: Negative. PAST MEDICAL HISTORY Diagnosis Date Anxiety state, unspecified Depressive disorder, not elsewhere classified GERD (gastroesophageal reflux disease) controlled with PPI; follows with Dr. Swan Hypothyroid Irritable bowel syndrome IBS; Dr. Swan--continues follow up; last colonosocpy was at least 2002, possibly 2005. Osteoporosis, unspecified Raynauds syndrome REG ENTERITIS, LG INTEST 06/06/2005 PAST SURGICAL HISTORY Procedure Laterality Date COLONOSCOPY FLX DX W/COLLJ SPEC WHEN PFRMD , 02/09, 01/12, Colonoscopy PAST SURGICAL HISTORY OF 80s ankle surgery (L) PAST SURGICAL HISTORY OF 89 cataract surgery PAST SURGICAL HISTORY OF 07/09/2001,09/11 EMB PAST SURGICAL HISTORY OF Right 02/10/2015 right wrist fracture ORIF (Dr. Guerrero) PAST SURGICAL HISTORY OF Right 11/2015 Hip Fracture after fall ALLERGIES Codeine and Percocet [Oxycodone-Acetaminophen ] MEDICATIONS gabapentin (NEURONTIN) 600 mg tablet Take 1 tablet by mouth two times a day. levothyroxine (SYNTHROID) 25 mcg tablet Take 1 tablet by mouth daily before breakfast. NIFEdipine ER (PROCARDIA XL) 30 mg 24 hr tablet Take 6 tablets by mouth once daily. Adjust as direceted naproxen (NAPROSYN) 500 mg tablet Take 1 tablet by mouth two times a day as needed (for pain/inflammation). Take with food. lidocaine (LIDODERM) 5 % Apply to the right rib cage once a day as needed, wear for 12 hours and then remove. famotidine (PEPCID) 40 mg tablet Take 1 tablet by mouth once daily. atorvastatin (LIPITOR) 20 mg tablet Take 20 mg by mouth daily at bedtime. omeprazole (PRILOSEC) 40 mg capsule Take 1 capsule by mouth once daily. (Dr. Swan--GI)--insurance would not cover 40 mg twice daily dicyclomine (BENTYL) 20 mg tablet Take 1 tablet by mouth three times daily. (Dr. Swan prescribing) budesonide, enteric coated (ENTOCORT EC) 3 mg 24 hr capsule Take 3 capsules by mouth once daily. (Dr. John Swan) Taty (more content not included)... Normal [facility] UA DIP, URINE (POC)on 2023 BILIRUBIN UA (POCT) Negative Negative [facility] CLARITY UA (POCT) Turbid [facility] COLOR UA (POCT) Yellow [facility] GLUCOSE UA (POCT) Negative Negative mg/dL [facility] Hemoglobin Ql (U) Trace-intact Abnormal Negative [facility] Interpretation and review of laboratory results Abnormal [facility] KETONE UA (POCT) Negative Negative mg/dL [facility] LEUKOCYTES UA (POCT) Trace Abnormal Negative [facility] NITRITE UA (POCT) Negative Negative [facility] PH UA (POCT) 6.5 4.5 - 8.0 [facility] Protein Ql (U) Negative Negative mg/dL [facility] SPECIFIC GRAVITY UA (POCT) 1.010 1.005 - 1.030 [facility] UROBILINOGEN UA (POCT) 0.2 Normal E.U./dL [facility] Location:[facility], [address], [place], [address] [facility] POINT OF CARE [facility] [id number] 07-17-2024 [id number] HNO ID: [id number] Author: BAILEY MADRIGAL PT Service: ? Author Type: Physical Therapist Type: [id number] Filed: 07/17/2024 13:55 Note Text: [facility] Physical Therapy Plan of Care Certification Patient Name: Geraldine Hairston : 1950 CC #: [id number] Date: 07/17/2024 To: Chance Kolb MD From Therapist: Bailey Madrigal PT RE: Patient Certification/ Recertification Your review, approval and electronic signature are required in order to comply with Payor: MEDICARE / Plan: MEDICARE A AND B / Product Type: Medicare / regulations. The identified Physical Therapy PLAN OF CARE for the patient is as follows: R26.81 Gait instability (primary encounter diagnosis) PLAN OF CARE: Assessment: Geraldine Hairston presents with diagnosis of gait instability that interferes with cleaning, rising from a chair, standing, walking . The patient presents with impairments in ADL's, balance, gait, independence in exercise, joint mobility, overall function, range of motion, strength, and symptom management. PROMIS? (Patient-Reported Outcomes Measurement Information System) scores were reviewed and identified as a rehabilitation concern. Prognosis for therapy is Good due to: current objective clinical presentation, good overall health status, acuteness of condition, good support system/ coping skills, within-session changes, positive past response to therapy . The patient will benefit from skilled therapy services to meet the goals established for this plan of care as noted below. Classification Low Back Pain Classification: Symptom Modulation Goals for Episode of Care: established 07/17/24 Patient will report no falls. Improve score on Timed Up and Go Test to 8 or less seconds to reflect decreased fall risk. Patient will demonstrate independent and proper use of assisstive device to allow for improved walking quality and safety therefore reducing the risk of falls. Perform cleaning her house x 20-30 minutes with decreased report of symptoms / pain. Patient Goals: reduce LBP and improve balance Time Frame for Goals and Treatment : 08/28/24 Planned Interventions, Frequency, and Duration: Current Frequency: 1x/week Duration: 6 weeks Total Number of Visits Planned: 6 Planned Treatment Interventions: Therapeutic exercise (03179), Manual therapy (98985), Therapeutic activities (56848), Self-long-term management (22161), Gait Training (53211), Neuromuscular re-education (62625) PLAN FOR NEXT VISIT: assess symmptom response to rpeeated lumbar flexion Patient demonstrates good understanding of plan of care and treatment. The above goals and plan of care were discussed and agreed upon by patient/family. For further details regarding this patient refer to the Physical Therapy electronically documented visit dated 07/17/2024. Provider Attestation I have reviewed the treatment plan for Geraldine Hairston, [facility]# [id number] for the period of 07/17/24 -- 08/28/24, established on 07/17/2024. Signature certifies the need for therapy services. Normal [facility] CNTHERAPYon 07-17-2024 CNTHERAPY OT/PT/Speech Visit (PTWS) -------- GERALDINE HAIRSTON ([id number]) 1950 F Date Time Provider Department 07/17/24 1:15 PM BAILEY MADRIGAL PTROSIE Date Time Provider Department [place] 07/17/2024 1:15 PM [id number] MADRIGAL PTROSIE Duval Reason for Visit: PT Eval [747] Primary Visit Diagnosis:Gait instability [R26.81] Allergies As of Date: 07/17/2024 Noted Allergy Reaction CODEINE 06/06/2005 Comments: Nausea,dizziness PERCOCET (OXYCODONE-ACETAMINOPHEN )06/06/2005 Comments: nausea, dizziness Date Reviewed: 06/24/2024 Reviewed by: Cherise Armenta LPN - Fully Assessed Prescriptions as of 08/24/2024 - gabapentin (NEURONTIN) 600 mg tablet Take 1 tablet by mouth two times a day. - levothyroxine (SYNTHROID) 25 mcg tablet Take 1 tablet by mouth daily before breakfast. - NIFEdipine ER (PROCARDIA XL) 30 mg 24 hr tablet Take 6 tablets by mouth once daily. Adjust as direceted - naproxen (NAPROSYN) 500 mg tablet Take 1 tablet by mouth two times a day as needed (for pain/inflammation). Take with food. - lidocaine (LIDODERM) 5 % Apply to the right rib cage once a day as needed, wear for 12 hours and then remove. - famotidine (PEPCID) 40 mg tablet Take 1 tablet by mouth once daily. - atorvastatin (LIPITOR) 20 mg tablet Take 20 mg by mouth daily at bedtime. - omeprazole (PRILOSEC) 40 mg capsule Take 1 capsule by mouth once daily. (Dr. Swan--GI)--insurance would not cover 40 mg twice daily - dicyclomine (BENTYL) 20 mg tablet Take 1 tablet by mouth three times daily. (Dr. Swan prescribing) - budesonide, enteric coated (ENTOCORT EC) 3 mg 24 hr capsule Take 3 capsules by mouth once daily. (Dr. John Swan) - Calcium-Cholecalciferol, D3, (CALCIUM 600 + D) 600-125 mg-unit tab Take 1 tablet by mouth twice daily. - aspirin, enteric coated (ASPIRIN, ENTERIC COATED) 325 mg EC tablet Take 1 tablet by mouth once daily. - PARoxetine (PAXIL) 30 mg tablet Take 2.5 tablets by mouth once daily. (from psychiatrist) - busPIRone HCl (BUSPAR) 30 mg tablet Take 1 tablet by mouth twice daily. (Gets from psychiatrist now) - LORazepam 0.5 mg Tab Take 1 tablet by mouth three times daily as needed. Prescribing Dr: Keely Moore MD - DAILY MULTIVITAMIN TAB - IMODIUM A-D 2 MG TAB Take 2 mg by mouth as needed (When needed). - METAMUCIL SMOOTH TEXTURE PACKET one tablespoon in the am with a full glass of water and one tablespoon again in the pm again with a full glass of water daily. - SALINE MIST 0.65 % NASAL SPRAY AEROSOL Two sprays each nostril twice daily. Energy Management Specialist: Therapy (PT/OT/Speech/Resp) ID: [id number] 07/17/2024 1:36 PM Author: BAILEY MADRIGAL Signed by BAILEY MADRIGAL PT on 07/17/2024 at 1:36 PM Document text: Program_ID:[id number] Access Code: [email or web address] URL: [email or web address] Date: 07-17-2024 Prepared By: Bailey Madrigal Program Notes Exercises - Hooklying Single Knee to Chest Stretch - 2-3 x daily - 7 x weekly - 1 sets - 3 reps - Seated Flexion Stretch - 2-3 x daily - 7 x weekly - 4 sets - 10 reps - Supine Lower Trunk Rotation - 2-3 x daily - 7 x weekly - 2 sets - 10 reps Normal [facility] THERAPY NTon 07-17-2024 THERAPY NT HNO ID: [id number] Author: BAILEY MADRIGAL PT Service: ? Author Type: Physical Therapist Type: Therapy (PT/OT/Speech/Resp) Filed: 07/17/2024 13:36 Note Text: Program_ID:[id number] Access Code: [email or web address] URL: [email or web address] Date: 07-17-2024 Prepared By: Bailey Madrigal Program Notes Exercises - Hooklying Single Knee to Chest Stretch - 2-3 x daily - 7 x weekly - 1 sets - 3 reps - Seated Flexion Stretch - 2-3 x daily - 7 x weekly - 4 sets - 10 reps - Supine Lower Trunk Rotation - 2-3 x daily - 7 x weekly - 2 sets - 10 reps Normal [facility] Office Visiton 01-09-2024 Follow-up visit [id number] Geraldine Hairston 1950 [facility] Provider Department [place] 01/09/2024 [id number] VAIL [facility] None Family History Family Status - Relation Status Age at Mother Alive Father Alive Level of Service:70569 SD OFFICE/OUTPATIENT ESTABLISHED LOW MDM 20 MIN Reason for Visit and Comments: Follow-up [666274] - Right hand pain Normal [facility] Progress Noteon 01-09-2024 Progress Note [facility] [address] [place] [address] Dept: [phone] Dept 01/09/2024 Chief Complaint Patient presents with Follow-up Right hand pain HPI Geraldine returns today in follow-up regarding Right hand/thumb issues. Last appointment was approximately 5 months ago. At her last appointment she was treated with to schedule surgery at her convenience, she never called States that she has no pain in the hand. She is more concerned about additional flexor tendon ruptures. Is here today to discuss whether or not she wants to proceed with surgery. Symptom duration: less than 1 year. No results found for: HGBA1C OBJECTIVE BP 116/70 Ht 4' 10.5" (1.486 m) Wt 90 lb (40.8 kg) BMI 18.49 kg/m? Ortho Exam RIGHT Upper Extremity Mass Characteristics Size: 2 cm X 3 cm Location: thumb Depth: superficial Mobility: fixed Tenderness: nontender Nail Plate changes: No Clinical Photo (if obtained at office visit): Not taken Skin: Intact without any evidence of breakdown Edema: Surrounding the mass ROM: limited at the thumb IPJ with inability to actively flex, normal passive ROM of the IPJ Motor: intact in the hand - able to fire PIN, and Ulnar nerves, unable to fire FPL via AIN Sensation: to light touch normal in the median, ulnar, and radial nerve distributions Perfusion: Brisk cap refill to all digits IMAGING XRay: reviewed from previous date 08/12/2023 RIGHT Hand 3V demonstrates no acute fractures or dislocations. No evidence of significant osteoarthritis of the IP joint of the thumb. Small soft tissue mass with no calcification on the ulnar aspect of the thumb. MRI right wrist and hand: 08/26/2023 Impression: 1. Full-thickness flexor pollicis longus tear at the approximate mid carpal level (see saved arrows). 2. Along the ulnar aspect of the thumb proximal phalanx, within the subcutaneous soft tissues, at the level of the interphalangeal joint, there is a nonspecific 5 x 6 x 12 mm T1 and T2 hypointense body. No evidence of connection to the interphalangeal joint or interosseous extension/involvement. NCT/EMG (Copied Impression) none PROCEDURE none ASSESSMENT (S56.019A) Rupture of flexor pollicis longus muscle (Z96.9) Retained orthopedic hardware (R22.31) Mass of finger of right hand 1. Rupture of flexor pollicis longus muscle 2. Retained orthopedic hardware 3. Mass of finger of right hand PLAN Geraldine has a proud volar wrist plate and FPL rupture. Also has a thumb mass. States she has no pain and is able to perform all ADLs without issue. I told him this scenario she could certainly continue with benign neglect and close observation but there was some very low risk of future tendon ruptures. She is comfortable with this plan. She will call the office if she ever wishes to have another surgical discussion. Tylenol and ibuprofen for any residual discomfort. Immobilization: NO immobilization required at this point - FULL ROM all joints encouraged Weight Bearing: Weight Bearing As Tolerated through right sided upper extremity Rehabilitation: NO formal rehabilitation required at this point. Follow-up: Geraldine will followup with me on an as needed basis. She knows to call the office with any questions or concerns in the interim. Future Imaging: NONE Thea Vail MD Hand and Upper Extremity Surgery [facility] Department of Orthopaedics and Sports Medicine 01/09/2024 at 10:30 AM (Please note that portions of this note may have been completed with a voice recognition program. Efforts were made to edit the dictations but occasionally words are mis-transcribed.) Normal [facility] 36on 01-06-2024 36 Spoke to patient and scheduled appointment to discuss surgery details. Normal [facility] 36 Left message informi ng patient with number to call back with additional questions or concerns or to schedule surgery. Normal [facility] XR Lumbar spine 3 Viewson IMPRESSION: MILD SUPERIOR ENDPLATE COMPRESSION OF L4 IS AGE INDETERMINATE. ADDITIONAL DEGENERATIVE CHANGES AND ALIGNMENT ABNORMALITIES DESCRIBED Prescription Clerk Lenses: BAILEY Transcribe Date/Time: Jan 02 2024 2:48P Dictated by : SAVANA ARIAS MD This examination was interpreted and the report reviewed and electronically signed by: SAVANA ARIAS MD on Jan 02 2024 2:53PM [facility] DIVISION OF RADIOLOGY * * *Final Report* * * DATE OF EXAM: Dec 31 2023 3:32PM WOX 5228 - XR LUMBAR 3V AP/LAT/L5-S1 / PROCEDURE REASON: Acute bilateral low back pain without sciatica * * * * Physician Interpretation * * * * Examination: XR LUMBAR 3V AP/LAT/L5-S1 History: Acute bilateral low back pain without sciatica Technique: XR LUMBAR 3V AP/LAT/L5-S1 Comparison: None RESULT: 5 nonrib-bearing lumbar type vertebrae. For numbering purposes, L4-5 is at the level of the iliac crest. Severe L5-S1 disc space narrowing and vacuum phenomenon. Grade 1 spondylolisthesis of L4 on L5. L2-3 severe disc space narrowing. Mild spondylosis and osteophytosis throughout. Mild superior endplate compression of L4. Age indeterminate. DIVISION OF RADIOLOGY Provider, [facility] - 01/02/2024 * * *Final Report* * * DATE OF EXAM: Dec 31 2023 3:32PM WOX 5228 - XR LUMBAR 3V AP/LAT/L5-S1 / PROCEDURE REASON: Acute bilateral low back pain without sciatica * * * * Physician Interpretation * * * * Examination: XR LUMBAR 3V AP/LAT/L5-S1 History: Acute bilateral low back pain without sciatica Technique: XR LUMBAR 3V AP/LAT/L5-S1 Comparison: None RESULT: 5 nonrib-bearing lumbar type vertebrae. For numbering purposes, L4-5 is at the level of the iliac crest. Severe L5-S1 disc space narrowing and vacuum phenomenon. Grade 1 spondylolisthesis of L4 on L5. L2-3 severe disc space narrowing. Mild spondylosis and osteophytosis throughout. Mild superior endplate compression of L4. Age indeterminate. IMPRESSION IMPRESSION: MILD SUPERIOR ENDPLATE COMPRESSION OF L4 IS AGE INDETERMINATE. ADDITIONAL DEGENERATIVE CHANGES AND ALIGNMENT ABNORMALITIES DESCRIBED Prescription Clerk Lenses: BAILEY Transcribe Date/Time: Jan 02 2024 2:48P Dictated by : SAVANA ARIAS MD This examination was interpreted and the report reviewed and electronically signed by: SAVANA ARIAS MD on Jan 02 2024 2:53PM [facility] XR Lumbar spine 3 ViewsOrder ed By: Ccf Provider on 01-02-2024 [facility] 36on 12-31-2023 36 Thumb flexors most likely tendon to rupture with a prominent distal radius plate. It is possible that additional tendons can rupture but unlikely. Surgery would be to restore flexion of the thumb. She does not have to to have surgery if she is okay living with her hand in its current state. That is entirely up to her. Probably best to see her back in the office to discuss in person before we reschedule any type of surgery to ensure we are on the same page. Normal [facility] XR Lumbar spine 3 Viewson Radiology Study observation (narrative) [facility] 36on 12-27-2023 36 Patient called in stating she is now ready to proceed with scheduling. Do you want to see prior to scheduling or ok to schedule over the phone? Patient called back asking if she does not have surgery will she have further issues. She states you had discussed removing the hardware to prevent future ruptures and wants to know if its necessary to proceed with surgery. Normal [facility] 36on 09-27-2023 36 Spoke to patient, sh mahendra is recovering from rib fractures and will call when ready to proceed with surgery. Normal [place] [address]on 09-23-2023 36 Left message for pat ient to call back to schedule surgery. Normal [facility] 36 YARED SURGERY SCHEDU LING SLIP Patient: Geraldine Hairston Date of : 1950 Date of Surgery: Next available Day of Surgery: [facility]: [place] Duration: 2hrs Type: Outpatient PAT: Yes Med Clearance: No Anesthesia: MAC Block: Regional Position: Supine Table: Stretcher Arm Board: Roll-up arm table Radiology: Small C-Arm CPT Code: Consent: Right distal radius plate removal, flexor pollicus longus tendon reconstruction, thumb mass excision FollowUp: Any P.A. 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 Normal [facility] XR Ribs - right Views and Ch est PAon 09-03-2023 IMPRESSION: Acute fractures of the right seventh and 10th ribs. Prescription Clerk Lenses: BAILEY Transcribe Date/Time: Sep 03 2023 1:48P Dictated by : OLIVE KEITA MD This examination was interpreted and the report reviewed and electronically signed by: OLIVE KEITA MD on Sep 03 2023 1:52PM [facility] DIVISION OF RADIOLOGY * * *Final Report* * * DATE OF EXAM: Sep 03 2023 1:44PM WOX 5244 - XR RIB/CHST 3V AP RIB/OBL/CHST R / PROCEDURE REASON: multiple diagnoses * * * * Physician Interpretation * * * * TITLE: XR RIB/CHST 3V AP RIB/OBL/CHST R CLINICAL INDICATION: Status post fall from bed TECHNIQUE: 3 view right side of radiographic rib series with inclusion of a single frontal view of the chest for purposes of comparison/symmetry COMPARISON: Radiograph dated November 16, 2022 FINDINGS: Acute mildly displaced fracture of the right posterior seventh rib and suggestion of acute nondisplaced fracture of the right anterolateral 10th rib. Remote healed rib fracture deformities of the lateral fifth through ninth ribs. Normal cardiomediastinal silhouette. No focal consolidation. No discernible pleural effusion or pneumothorax. DIVISION OF RADIOLOGY [facility] * * *Final Report* * * DATE OF EXAM: Sep 03 2023 1:44PM WOX 5244 - XR RIB/CHST 3V AP RIB/OBL/CHST R / PROCEDURE REASON: multiple diagnoses * * * * Physician Interpretation * * * * TITLE: XR RIB/CHST 3V AP RIB/OBL/CHST R CLINICAL INDICATION: Status post fall from bed TECHNIQUE: 3 view right side of radiographic rib series with inclusion of a single frontal view of the chest for purposes of comparison/symmetry COMPARISON: Radiograph dated November 16, 2022 FINDINGS: Acute mildly displaced fracture of the right posterior seventh rib and suggestion of acute nondisplaced fracture of the right anterolateral 10th rib. Remote healed rib fracture deformities of the lateral fifth through ninth ribs. Normal cardiomediastinal silhouette. No focal consolidation. No discernible pleural effusion or pneumothorax. IMPRESSION IMPRESSION: Acute fractures of the right seventh and 10th ribs. Prescription Clerk Lenses: BAILEY Transcribe Date/Time: Sep 03 2023 1:48P Dictated by : OLIVE KEITA MD This examination was interpreted and the report reviewed and electronically signed by: OLIVE KEITA MD on Sep 03 2023 1:52PM EST [facility] Radiology Study observation (narrative) [facility] XR Ribs - right Views and Ch est PAOrdered By: Ccf Provider on 09-03-2023 [facility] 36on 08-29-2023 36 Records request sent to Adarsh Downey for Operative reports. Will have Yared review and advise on surgery orders once reports received. Normal [facility] Office Visiton 08-29-2023 Follow-up visit [id number] Geraldine Hairston 1950 F Date Provider Department Center 08/29/2023 [id number] VAIL [facility] None Family History Family Status - Relation Status Age at Mother Alive Father Alive Level of Service:16804 SD OFFICE/OUTPATIENT ESTABLISHED MOD MDM 30-39 MIN Reason for Visit and Comments: Follow-up [859760] - Right hand MRI results Normal [facility] Progress Noteon 08-29-2023 Progress Note [facility] [address] [place] [address] Dept: [phone] Dept 08/29/2023 Chief Complaint Patient presents with Follow-up Right hand MRI results EUSE[place]IA Chandler returns today in follow-up regarding right hand mass. Last appointment was approximately 2.5 weeks ago. At her last appointment she was treated with an MRI of her hand and wrist. No change in symptoms. Still unable to flex at the thumb IP joint. Also notes a mass in the pulp of her right thumb that is bothersome. Symptom duration: less than 1 year. No results found for: HGBA1C OBJECTIVE BP 114/74 Ht 4' 10.5" (1.486 m) Wt 90 lb (40.8 kg) BMI 18.49 kg/m? Ortho Exam RIGHT Upper Extremity Mass Characteristics Size: 2 cm X 3 cm Location: thumb Depth: superficial Mobility: fixed Tenderness: nontender Nail Plate changes: No Clinical Photo (if obtained at office visit): Not taken Skin: Intact without any evidence of breakdown Edema: Surrounding the mass ROM: limited at the thumb IPJ with inability to actively flex, normal passive ROM of the IPJ Motor: intact in the hand - able to fire PIN, and Ulnar nerves, unable to fire FPL via AIN Sensation: to light touch normal in the median, ulnar, and radial nerve distributions Perfusion: Brisk cap refill to all digits Examination of the contralateral limb reveals no masses, skin intact, no edema, full ROM, no motor deficits, normal sensation, no evidence of instabilities, and adequate perfusion. IMAGING XRay: reviewed from previous date 08/12/2023 RIGHT Hand 3V demonstrates no acute fractures or dislocations. No evidence of significant osteoarthritis of the IP joint of the thumb. Small soft tissue mass with no calcification on the ulnar aspect of the thumb. MRI right wrist and hand: 08/26/2023 Impression: 1. Full-thickness flexor pollicis longus tear at the approximate mid carpal level (see saved arrows). 2. Along the ulnar aspect of the thumb proximal phalanx, within the subcutaneous soft tissues, at the level of the interphalangeal joint, there is a nonspecific 5 x 6 x 12 mm T1 and T2 hypointense body. No evidence of connection to the interphalangeal joint or interosseous extension/involvement. NCT/EMG (Copied Impression) none PROCEDURE none ASSESSMENT (S56.019A) Rupture of flexor pollicis longus muscle (Z96.9) Retained orthopedic hardware 1. Rupture of flexor pollicis longus muscle 2. Retained orthopedic hardware PLAN Independently interpreted Geraldine's MRI. She has an FPL rupture likely related to her previous volar distal radius plate. She desires better thumb strength and range of motion. We discussed surgical invention to include plate removal and bridge graft reconstruction of her FPL. Understands that she will not have normal painful range of motion despite my surgical efforts but the goal will be to improve her thumb function. She is comfortable with this plan. She would like to schedule in the near future. Understands that I may need to use tendon allograft and also need her previous operative report so I know what type of hardware and removing. She is comfortable this plan. I had an extensive discussion with . Geraldine Hairston regarding the natural history, etiology, and salvage determiner consequences of her condition. We discussed both operative and non operative treatment options and Geraldine Hairston elected to proceed with surgical intervention. I have discussed with Ms. Geraldine Hairston the potential complications, limitations, expectations, alternatives, and risks of the proposed surgical procedure. Risks discussed include but are not limited to the risk of infection, iatrogenic injury to normal neurovascular structures, persistent pain and disability, unsightly scar, stiffness, complex regional pain syndrome, malunion, non union, hardware failure, need for hardware removal, loss of limb, myocardial infarction, deep vein thrombosis, pulmonary embolism and even . We also discussed the potential risk of COVID-19 exposure or infection and how it could alter her post operative recovery course. She has had full opportunity to ask her questions. I have answered them all to her satisfaction. I feel that Ms. Geraldine Hairston does understand our discussion today and she is comfortable providing informed consent for the procedure. Immobilization: NO immobilization required at this point - FULL ROM all joints encouraged Weight Bearing: Weight Bearing As Tolerated through right sided upper extremity Rehabilitation: NO formal rehabilitation required at this point. Follow-up: Geraldine will followup with my physician museum assistant Rossy Holliday PA-C post operatively. She knows to call the office with any questions or concerns in the interim. Future Imaging: NONE Thea Vail MD Hand and Upper Extremity Surgery [facility] Departm (more content not included)... Normal [facility] Office Visiton 08-12-2023 Follow-up visit [id number] Geraldine Hairston 1950 F Date Provider Department Center 08/12/2023 [id number] VAIL [facility] OR None Family History Family Status - Relation Status Age at Mother Alive Father Alive Level of Service:63588 SD OFFICE/OUTPATIENT NEW LOW [facility] 30-44 MINUTES Reason for Visit and Comments: New Patient [542] - Right thumb cyst Normal [facility] Progress Noteon 08-12-2023 Progress Note [facility] [address] [place] [address] [place] [address] Dept: [phone] Dept 08/12/2023 Chief Complaint Patient presents with New Patient Right thumb cyst HPI Geraldine Hairston is a 72 y.o. right handed female that presents for evaluation of mass in her RIGHT volar thumb. Symptoms have been present for 2 month(s). The symptoms started after no known trauma. Previous Treatments NSAIDs: No - Have not tried Injection: No - Has never received an injection Therapy: No - Has not attempted formal therapy Splinting: No - Has not tried any splinting Surgery: No - Has not had previous surgery on the symptomatic extremity MRI: No Has not had an MRI Geraldine is a 72-year-old female presenting today with mass over the aspect of the there is been present for 2 to 3 months as well as inability to flex her right thumb at the IP joint. She states this has been present for roughly 4 to 5 months. She does not notice any acute trauma at the time of inability to flex the thumb. The mass has not been tender, erythematous and has had no drainage. No results found for: HGBA1C OBJECTIVE BP 122/68 Ht 4' 10.5" (1.486 m) Wt 90 lb (40.8 kg) BMI 18.49 kg/m? Ortho Exam RIGHT Upper Extremity Mass Characteristics Size: 2 cm X 3 cm Location: thumb Depth: superficial Mobility: fixed Tenderness: nontender Nail Plate changes: No Clinical Photo (if obtained at office visit): Not taken Skin: Intact without any evidence of breakdown Edema: Surrounding the mass ROM: limited at the thumb IPJ with inability to actively flex, normal passive ROM of the IPJ Motor: intact in the hand - able to fire PIN, and Ulnar nerves, unable to fire FPL via AIN Sensation: to light touch normal in the median, ulnar, and radial nerve distributions Perfusion: Brisk cap refill to all digits Examination of the contralateral limb reveals no masses, skin intact, no edema, full ROM, no motor deficits, normal sensation, no evidence of instabilities, and adequate perfusion. IMAGING Plain films were taken today and reviewed in office. RIGHT Hand 3V demonstrates no acute fractures or dislocations. No evidence of significant osteoarthritis of the IP joint of the thumb. Small soft tissue mass with no calcification on the ulnar aspect of the thumb. PROCEDURE none ASSESSMENT (R22.31) Mass of finger of right hand (S56.019A) Rupture of flexor pollicis longus muscle 1. Mass of finger of right hand Thumb 2. Rupture of flexor pollicis longus muscle Right thumb PLAN I discussed with Geraldine the natural history, expected outcome, and risks/benefits of both operative and nonoperative management of her particular diagnosis relative to her age, activity level, previous treatment, and physical exam. Geraldine had some excellent questions, all of which were answered to her satisfaction. Geraldine elected to proceed with MRI of the right hand and wrist. Discussed with patient that the soft tissue mass is most likely a small superficial cyst and also she likely ruptured her FPL tendon due to her inability to flex at the IP joint of the thumb. She is at risk for attritional rupture due to her previous ORIF of her distal radius, therefore we will obtain a MRI of the hand and wrist in order to evaluate location of EPL rupture as well as to characterize the mass within the thumb. She will follow-up following MRI in order to go over results and discuss future treatment options. Follow-up: Geraldine will followup with me for MRI results. She knows to call the office with any questions or concerns in the interim. Future Imaging: NONE Thea Vail MD Hand and Upper Extremity Surgery [facility] Department of Orthopaedics and Sports Medicine 08/12/2023 at 2:13 PM (Please note that portions of this note may have been completed with a voice recognition program. Efforts were made to edit the dictations but occasionally words are mis-transcribed.) Normal [facility] SHS UA DIP, URINE (POC)on 2022 BILIRUBIN UA (POCT) Negative Negative [facility] CLARITY UA (POCT) Cloudy [facility] COLOR UA (POCT) Dark yellow [facility] GLUCOSE UA (POCT) Negative Negative mg/dL [facility] Hemoglobin Ql (U) Negative Negative [facility] KETONE UA (POCT) Negative Negative mg/dL [facility] LEUKOCYTES UA (POCT) Negative Negative [facility] NITRITE UA (POCT) Negative Negative [facility] PH UA (POCT) 6.0 4.5 - 8.0 [facility] Protein Ql (U) Negative Negative mg/dL [facility] SPECIFIC GRAVITY UA (POCT) 1.015 1.005 - 1.030 [facility] UROBILINOGEN UA (POCT) 0.2 E.U./dL Normal E.U./dL [facility] OZIEL SCREENINGon 03-25-2023 [facility] XR Ribs - right Views and Ch est PAon 11-19-2022 IMPRESSION: Fractures of right-sided ribs as discussed. Prescription Clerk Lenses: BAILEY Transcribe Date/Time: Nov 19 2022 8:26A Dictated by : JON TA DO This examination was interpreted and the report reviewed and electronically signed by: JON TA DO on Nov 19 2022 8:34AM [facility] DIVISION OF RADIOLOGY * * *Final Report* * * DATE OF EXAM: Nov 16 2022 3:43PM WOX [id number] - XR RIB/CHST 3V AP RIB/OBL/CHST R / PROCEDURE REASON: Rib pain on right side * * * * Physician Interpretation * * * * Study:Chest and RIGHT ribs: HISTORY: Indication: Rib pain on right side TECHNIQUE: Images obtained: XR RIB/CHST 3V AP RIB/OBL/CHST R Comparison: 08/07/2022 Result: Findings: Chest x-ray: PA view of the chest shows no acute pathology in the heart and lungs.. RIBS: There is a fracture of the RIGHT eighth rib and possibly a fracture of the RIGHT ninth rib. Remote fractures as discussed previously are seen within the fifth and sixth ribs and the seventh rib. DIVISION OF RADIOLOGY Provider, [facility] - 11/19/2022 * * *Final Report* * * DATE OF EXAM: Nov 16 2022 3:43PM WOX [id number] - XR RIB/CHST 3V AP RIB/OBL/CHST R / PROCEDURE REASON: Rib pain on right side * * * * Physician Interpretation * * * * Study:Chest and RIGHT ribs: HISTORY: Indication: Rib pain on right side TECHNIQUE: Images obtained: XR RIB/CHST 3V AP RIB/OBL/CHST R Comparison: 08/07/2022 Result: Findings: Chest x-ray: PA view of the chest shows no acute pathology in the heart and lungs.. RIBS: There is a fracture of the RIGHT eighth rib and possibly a fracture of the RIGHT ninth rib. Remote fractures as discussed previously are seen within the fifth and sixth ribs and the seventh rib. IMPRESSION IMPRESSION: Fractures of right-sided ribs as discussed. Prescription Clerk Lenses: BAILEY Transcribe Date/Time: Nov 19 2022 8:26A Dictated by : JON TA DO This examination was interpreted and the report reviewed and electronically signed by: JON TA DO on Nov 19 2022 8:34AM EST [facility] XR Ribs - right Views and Ch est PAOrdered By: Ccf Provider on 11-19-2022 [facility] Comprehensive metabolic 2000 panelon 11-16-2022 Albumin [Mass/Vol] 4.9 g/dL 3.9 - 4.9 g/dL [facility] ALP [Catalytic activity/Vol] 62 U/L 34 - 123 U/L [facility] ALT [Catalytic activity/Vol] 28 U/L 7 - 38 U/L [facility] Anion gap [Moles/Vol] 14 mmol/L 9 - 18 mmol/L [facility] AST [Catalytic activity/Vol] 27 U/L 13 - 35 U/L [facility] Bilirubin [Mass/Vol] 0.3 mg/dL 0.2 - 1 .3 mg/dL [facility] Calcium [Mass/Vol] 9.6 mg/dL 8.5 - 10. 2 mg/dL [facility] Chloride [Moles/Vol] 102 mmol/L 97 - 10 5 mmol/L [facility] CO2 [Moles/Vol] 23 mmol/L 22 - 30 mmol/L [facility] Creatinine [Mass/Vol] 1.06 mg/dL High 0.58 - 0.96 mg/dL [facility] Estimated Glomerular Filtration Rate 56 mL/min/1.73m Low >=60 mL/min/1.73m [facility] Glucose [Mass/Vol] 148 mg/dL High 74 - 99 mg/dL [facility] Potassium [Moles/Vol] 3.6 mmol/L Low 3.7 - 5.1 mmol/L [facility] Protein [Mass/Vol] 7.5 g/dL 6.3 - 8.0 g/dL [facility] Sodium [Moles/Vol] 139 mmol/L 136 - 144 [facility] Urea nitrogen [Mass/Vol] 23 mg/dL High 7 - 21 mg/dL [facility] LIPID PANEL, NONFASTINGon Cholesterol [Mass/Vol] 251 mg/dL High <200 mg/dL [facility] HDL Cholesterol, Nonfasting 107 mg/dL >39 mg[facility] LDL Cholesterol, Nonfasting 128 mg/dL High <100 mg/dL [facility] LDL/HDL Ratio, Nonfasting 1.20 mg/dL <2.54 mg/dL [facility] Non HDL Cholesterol, Nonfasting 144 mg/dL High <130 mg/dL [facility] Total Chol/HDL Ratio, Nonfasting 2.35 mg/dL <5.10 mg/dL [facility] Triglycerides, Nonfasting 79 mg/dL <150 mg/dL [facility] VLDL Cholesterol, Nonfasting 16 mg/dL <30 mg/dL [facility] T3 FREE BLDon 11-16-2022 Free T3 [Mass/Vol] 2.2 pg/mL Low 2.3 - 4.1 pg/mL [facility] T4 FREE/FREE THYROXon 2022 Free T4 [Mass/Vol] 1.4 ng/dL 0.9 - 1.7 ng/dL [facility] TSH BLDon 11-16-2022 TSH Qn 1.410 m[IU]/L 0.270 - 4.200 mIU/L [facility] XR RIBS/CHEST 3V AP RIB/OBLS /CXR RIGHTon 11-16-2022 [facility] XR Ribs - right Views and Ch est PAon 11-16-2022 Radiology Study observation (narrative) [facility] Basophil percentageon 2021 Chloride [Moles/Vol] 111 mmol/L 98-107 [facility] Work Phone: Glucose [Mass/Vol] 99 mg/dL 74-106 [facility] Work Phone: [phone] Potassium [Moles/Vol] 4.2 mmol/L 3.5-5.1 [facility] [phone] Sodium [Moles/Vol] 141 mmol/L 136-145 [facility] Work Phone: Laboratory - Chemistry and C hemistry - challengeon 09-08-2022 CO2 [Moles/Vol] 25.0 mmol/L 21.0-32.0 [facility] Work Phone: Magnesium [Mass/Vol] 1.9 mg/dL 1.6-2.6 [facility] Work Phone: Urea nitrogen/Creatinine [Mass ratio] 31.2 mg/mg 10-20 [facility] Work Phone: [phone] No Panel Informationon 09-08 Estimated Creatinine Clearance Calc 28.10 ml/min [facility] Work Phone: Estimated GFR (MDRD) Amer 99 mL/min >60 [facility] Work Phone: Comment on above: GFR Calc Estimated GFR (MDRD) Non-Af Amer 82 mL/min >60 [facility] Work Phone: Comment on above: Non- GFR Calc Serum or plasma calcium evelin urement (mass/volume)on 09-08-2022 Calcium [Mass/Vol] 9.1 mg/dL 8.5-10.1 [facility] Work Phone: Serum or plasma creatinine m easurement (mass/volume)on 09-08-2022 Creatinine [Mass/Vol] 0.74 mg/dL 0.55-1.02 [facility] Work Phone: Comment on above: The validity of the calculated GFR & GFRAA in patients over 70 years has not been determined. Clinical correlation is essential. Serum or plasma urea nitroge n measurement (mass/volume)on 09-08-2022 Urea nitrogen [Mass/Vol] 23 mg/dL 7-18 [facility] Work Phone: Thin prep Papanicolaou smear with manual screeningon 09-08-2022 Thin prep Papanicolaou smear with manual screening 5 5-15 [facility] Work Phone: Absolute lymphocyte counton 09-07-2022 Lymphocytes Auto (Unsp spec) [#/Vol] 1.09 10*3/uL 0.83-4.51 [facility] Work Phone: Basophil percentageon 2021 Basophils/100 WBC (Bld) 0.4 % 0-1 [facility] Work Phone: Bilirubin [Mass/Vol] 0.50 mg/dL 0.20-1.00 [facility] Work Phone: Comment on above: For patients on eltr ombopag therapy, use of Dimension [place] TBIL is not recommended. Cholesterol [Mass/Vol] 263 mg/dL <200 [facility] Work Phone: Comment on above: <200 mg/dL Desirable 200-240 mg/dL Borderline >240 mg/dL High Risk Eosinophils/100 WBC (Bld) 1.4 % 0-5 [facility] Work Phone: Neutrophils (Bld) [#/Vol] 6.4 10*3/uL 2.0-7.7 [facility] Work Phone: Neutrophils/100 WBC (Bld) 76.9 % 47-70 [facility] Work Phone: Protein [Mass/Vol] 6.8 g/dL 6.4-8.2 [facility] Work Phone: Triglyceride [Mass/Vol] 130 mg/dL <199 [facility] Work Phone: Comment on above: The drugs N-Acetylcy steine and Metamizole may falsely depress this assay.Serum Triglycerides Reference Interval Normal <150 mg/dL Borderline high 150 - 199 mg/dL High 200 - 499 mg/dL Very High > or = 500 mg/dL WBC (Bld) [#/Vol] 8.3 10*3/uL 4.4-11.0 [facility] Work Phone: Blood erythrocytes count (nu mber/volume)on 09-07-2022 RBC (Bld) [#/Vol] 4.69 10*6/uL 4.2-5.4 [facility] Work Phone: Blood hemoglobin measurement (mass/volume)on 09-07-2022 Hemoglobin (Bld) [Mass/Vol] 14.2 g/dL 12.0-15.0 [facility] Work Phone: Blood lymphocytes/100 leukoc yteson 09-07-2022 Lymphocytes/100 WBC (Bld) 13.2 % 19-41 [facility] Work Phone: [phone] Blood monocytes/100 leukocyt eson 09-07-2022 Monocytes/100 WBC (Bld) 7.7 % 0-10 [facility] Work Phone: Blood platelet mean volumeon 09-07-2022 Platelet mean volume (Bld) [Entitic vol] 8.9 fL 6.2-12.0 [facility] Work Phone: Determination of erythrocyte mean corpuscular volume (MCV)on 09-07-2022 MCV (RBC) [Entitic vol] 93.2 fL 81-99 [facility] Work Phone: Hematocrit Auto (Bld) [Volum e fraction]on 09-07-2022 Hematocrit (Bld) [Volume fraction] 43.7 % 37-47 [facility] Work Phone: Laboratory - Chemistry and C hemistry - challengeon 09-07-2022 ALP [Catalytic activity/Vol] 58 U/L 45-117 [facility] Work Phone: ALT [Catalytic activity/Vol] 23 U/L 13-56 [facility] Work Phone: Globulin (S) [Mass/Vol] 3.4 g/dL 2.2-4.2 [facility] Work Phone: Laboratory - Hematology and Cell countson 09-07-2022 Erythrocyte distribution width (RBC) [Entitic vol] 47.8 fL 35.1-43.9 [facility] Work Phone: Erythrocyte distribution width (RBC) [Ratio] 13.9 % 11.6-14.6 [facility] Work Phone: Immature granulocytes/100 WBC (Bld) 0.400 % 0.0-0.9 [facility] Work Phone: Comment on above: IG% - Immature Granu locytes (promyelocytes, myelocytes and metamyelocytes) > 1% indicates that a LEFT SHIFT is Present. MCH (RBC) [Entitic mass] 30.3 pg 27.0-32.0 [facility] Work Phone: Nucleated RBC/100 WBC (Bld) [Ratio] 0 % 0-5 [facility] Work Phone: MCHC Auto (RBC) [Mass/Vol]on 09-07-2022 MCHC (RBC) [Mass/Vol] 32.5 g/dL 32-36 [facility] Work Phone: No Panel Informationon 09-07 Thyroid Stimulating Hormone (TSH) 0.98 uIU/mL 0.358-3.74 [facility] Work Phone: Platelets bldon 09-07-2022 Platelets (Bld) [#/Vol] 251 10*3/uL 150-450 [facility] Work Phone: Serum or plasma albumin evelin urement (mass/volume)on 09-07-2022 Albumin [Mass/Vol] 3.4 g/dL 3.2-5.0 [facility] Work Phone: Serum or plasma albumin/glob ulin mass ratioon 09-07-2022 Albumin/Globulin [Mass ratio] 1.0 {ratio} 0.9-2.4 [facility] Work Phone: Serum or plasma cholesterol in HDL measurement (mass/volume)on 09-07-2022 Cholesterol in HDL [Mass/Vol] 94 mg/dL >40 [facility] Work Phone: Comment on above: The drugs N-Acetylcy steine and Metamizole may falsely depress this assay. Reference Range HDL <40 mg/dL Low HDL Cholesterol HDL >or= 60 mg/dL High HDL Cholesterol Serum or plasma cholesterol in VLDL measurement (mass/volume)on 09-07-2022 Cholesterol in VLDL [Mass/Vol] 26 mg/dL 5-40 [facility] Work Phone: Serum or plasma low density lipoprotein (LDL) cholesterol measurement (mass/volume)on 09-07-2022 Cholesterol in LDL [Mass/Vol] 143 mg/dL 0-130 [facility] Work Phone: Thin prep Papanicolaou smear with manual screeningon 09-07-2022 Thin prep Papanicolaou smear with manual screening 9 U/L 15-37 [facility] Work Phone: Whole blood hemoglobin A1c/t otal hemoglobin ratio (mass fraction)on 09-07-2022 HbA1c (Bld) [Mass fraction] 5.1 % 3.8-5.6 [facility] Work Phone: Comment on above: Normal < 5.7 % Predi abetic 5.7 - 6.4 % Diabetic >or= 6.5 % Please note range changes. Absolute lymphocyte counton 09-06-2022 Lymphocytes Auto (Unsp spec) [#/Vol] 1.48 10*3/uL 0.83-4.51 [facility] Work Phone: Basophil percentageon 2021 Basophil percentage 0-5 SEEN /hpf 0-5 [facility] Work Phone: Basophils/100 WBC (Bld) 0.4 % 0-1 [facility] Work Phone: Bilirubin [Mass/Vol] 0.30 mg/dL 0.20-1.00 [facility] Work Phone: Comment on above: For patients on eltr ombopag therapy, use of Dimension [place] TBIL is not recommended. Chloride [Moles/Vol] 107 mmol/L 98-107 [facility] Work Phone: Eosinophils/100 WBC (Bld) 1.4 % 0-5 [facility] Work Phone: [phone] Glucose [Mass/Vol] 92 mg/dL 74-106 [facility] Work Phone: [phone] Neutrophils (Bld) [#/Vol] 6.6 10*3/uL 2.0-7.7 [facility] Work Phone: Neutrophils/100 WBC (Bld) 71.8 % 47-70 [facility] Work Phone: Potassium [Moles/Vol] 3.6 mmol/L 3.5-5.1 [facility] Work Phone: Comment on above: Slight Hemolysis, Re sult may be falsely increased. Protein [Mass/Vol] 7.3 g/dL 6.4-8.2 [facility] Work Phone: Sodium [Moles/Vol] 139 mmol/L 136-145 [facility] Work Phone: WBC (Bld) [#/Vol] 9.2 10*3/uL 4.4-11.0 [facility] Work Phone: Bilirubin Test strip Ql (U)o n 09-06-2022 Bilirubin Ql (U) Negative Negative [facility] Work Phone: Blood erythrocytes count (nu mber/volume)on 09-06-2022 RBC (Bld) [#/Vol] 4.73 10*6/uL 4.2-5.4 [facility] Work Phone: Blood hemoglobin measurement (mass/volume)on 09-06-2022 Hemoglobin (Bld) [Mass/Vol] 14.7 g/dL 12.0-15.0 [facility] Work Phone: Blood lymphocytes/100 leukoc yteson 09-06-2022 Lymphocytes/100 WBC (Bld) 16.0 % 19-41 [facility] Work Phone: Blood monocytes/100 leukocyt eson 09-06-2022 Monocytes/100 WBC (Bld) 10.2 % 0-10 [facility] Work Phone: Blood platelet mean volumeon 09-06-2022 Platelet mean volume (Bld) [Entitic vol] 9.3 fL 6.2-12.0 [facility] Work Phone: Determination of erythrocyte mean corpuscular volume (MCV)on 09-06-2022 MCV (RBC) [Entitic vol] 92.2 fL 81-99 [facility] Work Phone: Hematocrit Auto (Bld) [Volum e fraction]on 09-06-2022 Hematocrit (Bld) [Volume fraction] 43.6 % 37-47 [facility] Work Phone: INR in Blood by Coagulation assayon 09-06-2022 INR Coag (Bld) [Relative time] 1.0 {INR} [facility] Work Phone: Ketones Test strip Ql (U)on 09-06-2022 Ketones Ql (U) Negative Negative [facility] Work Phone: Laboratory - Chemistry and C hemistry - challengeon 09-06-2022 Magnesium [Mass/Vol] 2.0 mg/dL 1.6-2.6 [facility] Work Phone: Comment on above: Slight Hemolysis, Re sult may be falsely increased. ALP [Catalytic activity/Vol] 55 U/L 45-117 [facility] Work Phone: ALT [Catalytic activity/Vol] 28 U/L 13-56 [facility] Work Phone: CO2 [Moles/Vol] 29.0 mmol/L 21.0-32.0 [facility] Work Phone: Globulin (S) [Mass/Vol] 3.5 g/dL 2.2-4.2 [facility] Work Phone: Urea nitrogen/Creatinine [Mass ratio] 22.7 mg/mg 10-20 [facility] Work Phone: Laboratory - Coagulationon 1 PT Coag (PPP) [Time] 12.8 s 11.7-14.9 [facility] Work Phone: Laboratory - Drug toxicology on 09-06-2022 Amphetamines Ql (U) Negative <1000 ng/mL [facility] Work Phone: Benzodiazepines Ql (U) Negative < 200 ng/mL [facility] Work Phone: Cannabinoids Screen Ql (U) Negative < 50 ng/mL [facility] Work Phone: Cocaine Ql (U) Negative < 300 ng/mL [facility] Work Phone: Opiates Ql (U) Negative < 300 ng/mL [facility] Work Phone: Laboratory - Hematology and Cell countson 09-06-2022 Erythrocyte distribution width (RBC) [Entitic vol] 46.8 fL 35.1-43.9 [facility] Work Phone: Erythrocyte distribution width (RBC) [Ratio] 13.9 % 11.6-14.6 [facility] Work Phone: Immature granulocytes/100 WBC (Bld) 0.200 % 0.0-0.9 [facility] Work Phone: Comment on above: IG% - Immature Granu locytes (promyelocytes, myelocytes and metamyelocytes) > 1% indicates that a LEFT SHIFT is Present. MCH (RBC) [Entitic mass] 31.1 pg 27.0-32.0 [facility] Work Phone: Nucleated RBC/100 WBC (Bld) [Ratio] 0 % 0-5 [facility] Work Phone: MCHC Auto (RBC) [Mass/Vol]on 09-06-2022 MCHC (RBC) [Mass/Vol] 33.7 g/dL 32-36 [facility] Work Phone: Mucus LM Ql (Urine sed)on Mucus Ql (Urine sed) 0 SEEN /hpf [facility] Work Phone: Nitrite Test strip Ql (U)on 09-06-2022 Nitrite Ql (U) Positive Negative [facility] Work Phone: No Panel Informationon 09-06 MDMA (Ecstasy) Screen Negative < 500 ng/mL [facility] Work Phone: Urine Barbiturates Screen Negative < 200 ng/mL [facility] Work Phone: Urine Drug Screen Comment [facility] Work Phone: Comment on above: CONFIRMATORY TESTING FOR ALL POSITIVE URINE DRUG SCREENRESULTS WILL ONLY BE SENT OUT UPON PHYSICIAN ORDER. VISTA Urine Drug Screen methods provide only preliminaryanalytical test results. A more specific alternate chemicalmethod must be used in order to obtain a confirmedanalytical result. Gas chromatography/mass spectrometery(GC/MS) is the preferred confirmatory method. Clinicalconsideration and professional judgement should be appliedto any drug of abuse test result, particularly whenpreliminary positive results are used. URINE TCA TESTING MUST BE ORDERED SEPARATELY. USE TESTMNEMONIC: [facility] Urine Methadone Screen Negative < 300 ng/mL [facility] Work Phone: Estimated Creatinine Clearance Calc 23.61 ml/min [facility] Work Phone: Estimated GFR (MDRD) Amer 53 mL/min >60 [facility] Work Phone: Comment on above: GFR Calc Estimated GFR (MDRD) Non-Af Amer 44 mL/min >60 [facility] Work Phone: Comment on above: Non- GFR Calc Troponin I High Sensitivity 8 pg/mL 3.0-54.0 [facility] Work Phone: Comment on above: Please Note: New Michelle t Units and Gender Specific Reference Ranges. For more information see Policy Stat Procedure [place] High Sensitivity Troponin (TNIH) and attachments. Platelets bldon 09-06-2022 Platelets (Bld) [#/Vol] 260 10*3/uL 150-450 [facility] Work Phone: Protein Test strip Ql (U)on 09-06-2022 Protein Ql (U) Negative Negative [facility] Work Phone: Serum or plasma albumin evelin urement (mass/volume)on 09-06-2022 Albumin [Mass/Vol] 3.8 g/dL 3.2-5.0 [facility] Work Phone: Serum or plasma albumin/glob ulin mass ratioon 09-06-2022 Albumin/Globulin [Mass ratio] 1.1 {ratio} 0.9-2.4 [facility] Work Phone: Serum or plasma calcium evelin urement (mass/volume)on 09-06-2022 Calcium [Mass/Vol] 8.8 mg/dL 8.5-10.1 [facility] Work Phone: Serum or plasma creatinine m easurement (mass/volume)on 09-06-2022 Creatinine [Mass/Vol] 1.28 mg/dL 0.55-1.02 [facility] Work Phone: Comment on above: The validity of the calculated GFR & GFRAA in patients over 70 years has not been determined. Clinical correlation is essential. Serum or plasma urea nitroge n measurement (mass/volume)on 09-06-2022 Urea nitrogen [Mass/Vol] 29 mg/dL 7-18 [facility] Work Phone: Squamous epithelial cells de tection in urine sediment by light microscopyon 09-06-2022 Epithelial cells.squamous LM Ql (Urine sed) 0-5 SEEN /hpf 5-10 [facility] Work Phone: Thin prep Papanicolaou smear with manual screeningon 09-06-2022 Thin prep Papanicolaou smear with manual screening 18 U/L 15-37 [facility] Work Phone: Comment on above: Slight Hemolysis, Re sult may be falsely increased. Thin prep Papanicolaou smear with manual screening 3 5-15 [facility] Work Phone: Urine blood detectionon 08-10 RBC Ql (U) Negative Negative [facility] Work Phone: [phone] RBC Ql (U) 0 SEEN /hpf 0-5 [facility] Work Phone: Urine clarityon 09-06-2022 Clarity (U) Sl. Cloudy Clear [facility] Work Phone: Urine color determinationon 09-06-2022 Color (U) Yellow Yellow [facility] Work Phone: Urine glucose detectionon Glucose Ql (U) Normal mg/dl Normal [facility] Work Phone: Urine leukocyte esterase det ection by dipstickon 09-06-2022 Leukocyte esterase Test strip Ql (U) 100 /ul Negative [facility] Work Phone: Urine pHon 09-06-2022 pH (U) 5.0 [pH] 5.0 - 8.0 [facility] Work Phone: Urine phencyclidine (PCP) de tectionon 09-06-2022 Phencyclidine Ql (U) Negative < 25 ng/mL [facility] Work Phone: Urine sediment bacteria coun t by microscopy (number/high power field)on 09-06-2022 Bacteria LM.HPF (Urine sed) [#/Area] 4 /[HPF] None Seen [facility] Work Phone: Urine specific gravity measu rementon 09-06-2022 Specific gravity (U) [Rel density] 1.015 1.002-1.030 [facility] Work Phone: Urobilinogen Auto test strip Ql (U)on 09-06-2022 Urobilinogen Ql (U) Normal mg/dl Normal [facility] Work Phone: Absolute lymphocyte counton 09-01-2022 Lymphocytes Auto (Unsp spec) [#/Vol] 0.85 10*3/uL 0.83-4.51 [facility] Work Phone: Basophil percentageon 2021 Basophil percentage 0 SEEN /hpf 0-5 [facility] Work Phone: Basophils/100 WBC (Bld) 0.5 % 0-1 [facility] Work Phone: Chloride [Moles/Vol] 110 mmol/L 98-107 [facility] Work Phone: Eosinophils/100 WBC (Bld) 0.7 % 0-5 [facility] Work Phone: Glucose [Mass/Vol] 103 mg/dL 74-106 [facility] Work Phone: [phone] Comment on above: Fasting Glucose resu lt from 100 to 125 mg/dL suggests IMPAIRED HOMEOSTASIS per A.D.A. criteria. Neutrophils (Bld) [#/Vol] 4.7 10*3/uL 2.0-7.7 [facility] Work Phone: Neutrophils/100 WBC (Bld) 78.3 % 47-70 [facility] Work Phone: Potassium [Moles/Vol] 3.8 mmol/L 3.5-5.1 [facility] Work Phone: Sodium [Moles/Vol] 140 mmol/L 136-[address] [facility] [facility] Work Phone: WBC (Bld) [#/Vol] 6.0 10*3/uL 4.4-11.0 [facility] Work Phone: Bilirubin Test strip Ql (U)o n 09-01-2022 Bilirubin Ql (U) Negative Negative [facility] Work Phone: [phone] Blood erythrocytes count (nu mber/volume)on 09-01-2022 RBC (Bld) [#/Vol] 4.96 10*6/uL 4.2-5.4 [facility] Work Phone: Blood hemoglobin measurement (mass/volume)on 09-01-2022 Hemoglobin (Bld) [Mass/Vol] 14.9 g/dL 12.0-15.0 [facility] Work Phone: Blood lymphocytes/100 leukoc yteson 09-01-2022 Lymphocytes/100 WBC (Bld) 14.3 % 19-41 [facility] Work Phone: Blood monocytes/100 leukocyt eson 09-01-2022 Monocytes/100 WBC (Bld) 5.9 % 0-10 [facility] Work Phone: Blood platelet mean volumeon 09-01-2022 Platelet mean volume (Bld) [Entitic vol] 9.1 fL 6.2-12.0 [facility] Work Phone: Determination of erythrocyte mean corpuscular volume (MCV)on 09-01-2022 MCV (RBC) [Entitic vol] 95.4 fL 81-99 [facility] Work Phone: Hematocrit Auto (Bld) [Volum e fraction]on 09-01-2022 Hematocrit (Bld) [Volume fraction] 47.3 % 37-47 [facility] Work Phone: Ketones Test strip Ql (U)on 09-01-2022 Ketones Ql (U) Negative Negative [facility] Work Phone: Laboratory - Chemistry and C hemistry - challengeon 09-01-2022 CO2 [Moles/Vol] 25.0 mmol/L 21.0-32.0 [facility] Work Phone: Urea nitrogen/Creatinine [Mass ratio] 10.6 mg/mg 10-20 [facility] Work Phone: Laboratory - Drug toxicology on 09-01-2022 Amphetamines Ql (U) Negative <1000 ng/mL [facility] Work Phone: Benzodiazepines Ql (U) Negative < 200 ng/mL [facility] Work Phone: Cannabinoids Screen Ql (U) Negative < 50 ng/mL [facility] Work Phone: Cocaine Ql (U) Negative < 300 ng/mL [facility] Work Phone: Opiates Ql (U) Negative < 300 ng/mL [facility] Work Phone: Laboratory - Hematology and Cell countson 09-01-2022 Erythrocyte distribution width (RBC) [Entitic vol] 49.8 fL 35.1-43.9 [facility] Work Phone: Erythrocyte distribution width (RBC) [Ratio] 14.2 % 11.6-14.6 [facility] Work Phone: Immature granulocytes/100 WBC (Bld) 0.300 % 0.0-0.9 [facility] Work Phone: Comment on above: IG% - Immature Granu locytes (promyelocytes, myelocytes and metamyelocytes) > 1% indicates that a LEFT SHIFT is Present. MCH (RBC) [Entitic mass] 30.0 pg 27.0-32.0 [facility] Work Phone: Nucleated RBC/100 WBC (Bld) [Ratio] 0 % 0-5 [facility] Work Phone: MCHC Auto (RBC) [Mass/Vol]on 09-01-2022 MCHC (RBC) [Mass/Vol] 31.5 g/dL 32-36 [facility] Work Phone: Mucus LM Ql (Urine sed)on Mucus Ql (Urine sed) 0 SEEN /hpf [facility] Work Phone: Nitrite Test strip Ql (U)on 09-01-2022 Nitrite Ql (U) Negative Negative [facility] Work Phone: No Panel Informationon 09-01 MDMA (Ecstasy) Screen Negative < 500 ng/mL [facility] Work Phone: Urine Barbiturates Screen Negative < 200 ng/mL [facility] Work Phone: Urine Drug Screen Comment [facility] Work Phone: Comment on above: CONFIRMATORY TESTING FOR ALL POSITIVE URINE DRUG SCREENRESULTS WILL ONLY BE SENT OUT UPON PHYSICIAN ORDER. VISTA Urine Drug Screen methods provide only preliminaryanalytical test results. A more specific alternate chemicalmethod must be used in order to obtain a confirmedanalytical result. Gas chromatography/mass spectrometery(GC/MS) is the preferred confirmatory method. Clinicalconsideration and professional judgement should be appliedto any drug of abuse test result, particularly whenpreliminary positive results are used. URINE TCA TESTING MUST BE ORDERED SEPARATELY. USE TESTMNEMONIC: [facility] Urine Methadone Screen Negative < 300 ng/mL [facility] Work Phone: Estimated Creatinine Clearance Calc 37.02 ml/min [facility] Work Phone: Estimated GFR (MDRD) Amer 84 mL/min >60 [facility] Work Phone: Comment on above: GFR Calc Estimated GFR (MDRD) Non-Af Amer 70 mL/min >60 [facility] Work Phone: Comment on above: Non- GFR Calc Ethyl Alcohol Level < 3.0 mg/dL [facility] Work Phone: Comment on above: The serum:whole bloo d ethanol ratio is approximately 1.14and varies slightly with hematocrit. Medical Alcohol reference interval and critical value innon-tolerant individuals; 50 - 100 Impairment 100 Intoxication 100 - 250 Severe Poisoning 250 - 400 Deep/possible fatal coma Platelets bldon 09-01-2022 Platelets (Bld) [#/Vol] 213 10*3/uL 150-450 [facility] Work Phone: Protein Test strip Ql (U)on 09-01-2022 Protein Ql (U) 15 mg/dl Negative [facility] Work Phone: Serum or plasma calcium evelin urement (mass/volume)on 09-01-2022 Calcium [Mass/Vol] 9.0 mg/dL 8.5-10.1 [facility] Work Phone: Serum or plasma creatinine m easurement (mass/volume)on 09-01-2022 Creatinine [Mass/Vol] 0.85 mg/dL 0.55-1.02 [facility] Work Phone: Comment on above: The validity of the calculated GFR & GFRAA in patients over 70 years has not been determined. Clinical correlation is essential. Serum or plasma urea nitroge n measurement (mass/volume)on 09-01-2022 Urea nitrogen [Mass/Vol] 9 mg/dL 7-18 [facility] Work Phone: Squamous epithelial cells de tection in urine sediment by light microscopyon 09-01-2022 Epithelial cells.squamous LM Ql (Urine sed) 0 SEEN /hpf 5-10 [facility] Work Phone: Thin prep Papanicolaou smear with manual screeningon 09-01-2022 Thin prep Papanicolaou smear with manual screening 5 5-15 [facility] Work Phone: Urine blood detectionon 08-10 RBC Ql (U) 10 /ul Negative [facility] Work Phone: RBC Ql (U) 0 SEEN /hpf 0-5 [facility] Work Phone: Urine clarityon 09-01-2022 Clarity (U) Clear Clear [facility] Work Phone: Urine color determinationon 09-01-2022 Color (U) Yellow Yellow [facility] Work Phone: Urine glucose detectionon Glucose Ql (U) Normal mg/dl Normal [facility] Work Phone: Urine leukocyte esterase det ection by dipstickon 09-01-2022 Leukocyte esterase Test strip Ql (U) 25 /ul Negative [facility] Work Phone: Urine pHon 09-01-2022 pH (U) 6.5 [pH] 5.0 - 8.0 [facility] Work Phone: Urine phencyclidine (PCP) de tectionon 09-01-2022 Phencyclidine Ql (U) Negative < 25 ng/mL [facility] Work Phone: Urine sediment bacteria coun t by microscopy (number/high power field)on 09-01-2022 Bacteria LM.HPF (Urine sed) [#/Area] 4 /[HPF] None Seen [facility] Work Phone: Urine specific gravity measu rementon 09-01-2022 Specific gravity (U) [Rel density] 1.010 1.002-1.030 [facility] Work Phone: Urobilinogen Auto test strip Ql (U)on 09-01-2022 Urobilinogen Ql (U) Normal mg/dl Normal [facility] Work Phone: XR Chest PA and Lateralon IMPRESSION: No acute radiographic abnormality. Prescription Clerk Lenses: PSCB Transcribe Date/Time: Aug 07 2022 12:32P Dictated by : CHERI YEAGER MD This examination was interpreted and the report reviewed and electronically signed by: CHERI YEAGER MD on Aug 07 2022 12:35PM [facility] DIVISION OF RADIOLOGY * * *Final Report* * * DATE OF EXAM: Aug 07 2022 12:27PM WOX 5291 - XR CHEST 2V FRONTAL/LAT / PROCEDURE REASON: Acute cough * * * * Physician Interpretation * * * * EXAMINATION: CHEST RADIOGRAPH (2 VIEW FRONTAL & LATERAL) CLINICAL HISTORY: Acute cough MQ: XC2_6 EXAM DATE/TIME: 08/07/2022 12:27 PM COMPARISON: Chest x-ray 03/30/2022 RESULT: Lines, tubes, and devices: None. Lungs and pleura: No consolidation. No lung mass. No pleural effusion. No pneumothorax. Cardiomediastinal silhouette: Normal cardiomediastinal silhouette. Bones and soft tissues: Remote healed rib fractures. Degenerative disease of the thoracic spine. DIVISION OF RADIOLOGY Provider, Deanna Lino [facility] - 08/07/2022 * * *Final Report* * * DATE OF EXAM: Aug 07 2022 12:27PM WOX 5291 - XR CHEST 2V FRONTAL/LAT / PROCEDURE REASON: Acute cough * * * * Physician Interpretation * * * * EXAMINATION: CHEST RADIOGRAPH (2 VIEW FRONTAL & LATERAL) CLINICAL HISTORY: Acute cough MQ: XC2_6 EXAM DATE/TIME: 08/07/2022 12:27 PM COMPARISON: Chest x-ray 03/30/2022 RESULT: Lines, tubes, and devices: None. Lungs and pleura: No consolidation. No lung mass. No pleural effusion. No pneumothorax. Cardiomediastinal silhouette: Normal cardiomediastinal silhouette. Bones and soft tissues: Remote healed rib fractures. Degenerative disease of the thoracic spine. IMPRESSION IMPRESSION: No acute radiographic abnormality. Prescription Clerk Lenses: PSCB Transcribe Date/Time: Aug 07 2022 12:32P Dictated by : CHERI YEAGER MD This examination was interpreted and the report reviewed and electronically signed by: CHERI YEAGER MD on Aug 07 2022 12:35PM EST [facility] Radiology Study observation (narrative) [facility] XR Chest PA and LateralOrder ed By: Ccf Provider on 08-07-2022 [facility] DXA-AXIAL SKELETONon 022 [facility] URINE CULTUREon 04-04-2022 Bacteria identified Cx Nom (U) >=100,000 CFU/ml Escherichia coli Abnormal [facility] URINE CULTUREon 04-02-2022 Bacteria identified Cx Nom (U) Invalid Interpretation Code [facility] Urinalysis complete panel (U )on 04-02-2022 Bilirubin Ql (U) Negative Negative [facility] Clarity (Unsp spec) Clear Clear [facility] Color (U) Light Yellow Yellow [facility] Epithelial cells LM.HPF (Urine sed) [#/Area] Few [facility] Glucose Test strip (U) [Mass/Vol] Negative Negative [facility] Hemoglobin Ql (U) Negative Negative [facility] Ketones Ql (U) Negative Negative [facility] Leukocyte esterase Test strip Ql (U) Negative Negative [facility] Nitrite Ql (U) Negative Negative [facility] pH (U) 7.0 [pH] 5.0 - 8.0 [facility] Protein (U) [Mass/Vol] Negative Negative [facility] RBC LM.HPF (Urine sed) [#/Area] 0-3 /HPF 0-3 /HPF [facility] Specific gravity (U) [Rel density] 1.010 1.005 - 1.030 [facility] Urobilinogen Ql (U) Negative Negative [facility] WBC LM.HPF (Urine sed) [#/Area] 0-5 /HPF 0-5 /HPF [facility] VITAMIN D 25 HYDROXYon 03-31 25-hydroxyvitamin D3 [Mass/Vol] 61.0 ng/mL 31.0 - 80.0 ng/mL [facility] CBC panel Auto (Bld)on 03-30 Erythrocyte distribution width (RBC) [Ratio] 12.6 % 11.5 - 15.0 % [facility] Hematocrit (Bld) [Volume fraction] 44.2 % 36.0 - 46.0 % [facility] Hemoglobin (Bld) [Mass/Vol] 14.1 g/dL 11.5 - 15.5 g/dL [facility] MCH (RBC) [Entitic mass] 30.7 pg 26.0 - 34.0 pg [facility] MCHC (RBC) [Mass/Vol] 31.9 g/dL 30.5 - 36.0 g/dL [facility] MCV (RBC) [Entitic vol] 96.3 fL 80.0 - 100.0 fL [facility] Nucleated RBC (Bld) [#/Vol] <0.01 k/uL [facility] Platelet mean volume (Bld) [Entitic vol] 10.2 fL 9.0 - 12.7 fL [facility] Platelets (Bld) [#/Vol] 252 10*3/uL 150 - 400 k/uL [facility] RBC (Bld) [#/Vol] 4.59 10*6/uL 3.90 - 5.2 0 m/uL [facility] WBC (Bld) [#/Vol] 7.71 10*3/uL 3.70 - 11. 00 k/uL [facility] Comprehensive metabolic 2000 panelon 03-30-2022 Albumin [Mass/Vol] 4.5 g/dL 3.9 - 4.9 g/dL [facility] ALP [Catalytic activity/Vol] 47 U/L 34 - 123 U/L [facility] ALT [Catalytic activity/Vol] 28 U/L 7 - 38 U/L [facility] Anion gap [Moles/Vol] 12 mmol/L 9 - 18 mmol/L [facility] AST [Catalytic activity/Vol] 19 U/L 13 - 35 U/L [facility] Bilirubin [Mass/Vol] 0.2 mg/dL 0.2 - 1 .3 mg/dL [facility] Calcium [Mass/Vol] 9.3 mg/dL 8.5 - 10. 2 mg/dL [facility] Chloride [Moles/Vol] 101 mmol/L 97 - 10 5 mmol/L [facility] CO2 [Moles/Vol] 26 mmol/L 22 - 30 mmol/L [facility] Creatinine [Mass/Vol] 0.96 mg/dL 0.58 - 0.96 mg/dL [facility] Estimated Glomerular Filtration Rate 63 mL/min/1.73m >=60 mL/min/1.73m [facility] Glucose [Mass/Vol] 91 mg/dL 74 - 99 mg/dL [facility] Potassium [Moles/Vol] 3.4 mmol/L Low 3.7 - 5.1 mmol/L [facility] Protein [Mass/Vol] 6.8 g/dL 6.3 - 8.0 g/dL [facility] Sodium [Moles/Vol] 139 mmol/L 136 - 144 mmol/L [facility] Urea nitrogen [Mass/Vol] 14 mg/dL 7 - 21 mg/dL [facility] T3 FREE [facility] 03-30-2022 Free T3 [Mass/Vol] 2.1 pg/mL Low 2.3 - 4.1 pg/mL [facility] T4 FREE/FREE THYROXon 2021 Free T4 [Mass/Vol] 1.3 ng/dL 0.9 - 1.7 ng/dL [facility] TSH [facility] 03-30-2022 TSH Qn 1.140 m[IU]/L 0.270 - 4.200 mIU/L [facility] XR CHEST 2V FRONTAL/LATon [facility] XR Chest PA and Lateralon IMPRESSION: Hazy opacities in the lower lung on lateral view. Consider follow-up. Prescription Clerk Lenses: BAILEY Transcribe Date/Time: Mar 30 2022 2:18P Dictated by : LENORE BLACKMON MD This examination was interpreted and the report reviewed and electronically signed by: LENORE BLACKMON MD on Mar 30 2022 2:19PM EST [facility]_DO_NOT_ USE_DIVISIO N OF RADIOLOGY * * *Final Report* * * DATE OF EXAM: Mar 30 2022 2:17PM WOX 5291 - XR CHEST 2V FRONTAL/LAT / PROCEDURE REASON: Chronic cough * * * * Physician Interpretation * * * * EXAMINATION: CHEST RADIOGRAPH (2 VIEW FRONTAL & LATERAL) CLINICAL HISTORY: Chronic cough MQ: XC2_6 EXAM DATE/TIME: 03/30/2022 2:17 PM COMPARISON: Chest x-ray on 07/28/2015 RESULT: Lines, tubes, and devices: None. Lungs and pleura: Hazy opacities seen overlying the lower thoracic spine on lateral view, without corresponding findings on PA view. No mass lesion identified. No pleural effusions or pneumothorax.. Cardiomediastinal silhouette: Stable cardiomediastinal silhouette. Bones and soft tissues: There are mild degenerative changes in the spine. [facility]DO[facility]NOT_ USE_DIVISIO N OF RADIOLOGY Provider, [facility] - 03/30/2022 * * *Final Report* * * DATE OF EXAM: Mar 30 2022 2:17PM WOX 5291 - XR CHEST 2V FRONTAL/LAT / PROCEDURE REASON: Chronic cough * * * * Physician Interpretation * * * * EXAMINATION: CHEST RADIOGRAPH (2 VIEW FRONTAL & LATERAL) CLINICAL HISTORY: Chronic cough MQ: XC2_6 EXAM DATE/TIME: 03/30/2022 2:17 PM COMPARISON: Chest x-ray on 07/28/2015 RESULT: Lines, tubes, and devices: None. Lungs and pleura: Hazy opacities seen overlying the lower thoracic spine on lateral view, without corresponding findings on PA view. No mass lesion identified. No pleural effusions or pneumothorax.. Cardiomediastinal silhouette: Stable cardiomediastinal silhouette. Bones and soft tissues: There are mild degenerative changes in the spine. IMPRESSION IMPRESSION: Hazy opacities in the lower lung on lateral view. Consider follow-up. Prescription Clerk Lenses: BAILEY Transcribe Date/Time: Mar 30 2022 2:18P Dictated by : LENORE BLACKMON MD This examination was interpreted and the report reviewed and electronically signed by: LENORE BLACKMON MD on Mar 30 2022 2:19PM EST [facility] Radiology Study observation (narrative) [facility] XR Chest PA and LateralOrder ed By: Ccf Provider on 03-30-2022 [facility] OZIEL SCREENINGon 03-20-2022 [facility] No Panel InformationOrdered By: Ccf Provider on 11-25-2021 [facility] No Panel Informationon 11-25 Radiology Study observation (narrative) [facility] XR Hand - left PA and Latera l and Obliqueon 11-25-2021 Interpretation and review of laboratory results Abnormal [facility] Radiology Result ACTIONABLE Abnormal [facility] Comment on above: This report contains an incidental or actionable finding. This is a new finding that is separate from the reason your provider ordered the imaging test. Because of this incidental or actionable finding, you may need another imaging test to evaluate it. Please contact your provider for the next steps. IMPRESSION: 1. Acute, impacted fracture of the fifth metacarpal neck. 2. 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 3. Radiocarpal osteoarthritis and chondrocalcinosis. ACTIONABLE RESULT: FOLLOW-UP Acuity: Actionable Findings: Musculoskeletal/Rheumato logic System Routing Code: MSK_1 Recommendation: Unlisted Recommendation (see report) Time Frame: At the discretion of the clinical team. COMMUNICATION: Results will be communicated with the ordering provider via [employer] staff message or phone message by [employer] within 2 business days of report finalization. Algorithms for management of incidental imaging findings can be found on the [facility] Intranet Sharepoint site at: [email or web address] [email or web address] ndi ngs%[email or web address]/Forms [email or web address] Prescription Clerk Lenses: BAILEY Transcribe Date/Time: Nov 25 2021 11:53A Dictated by : SATNAM GONZALES DO This examination was interpreted and the report reviewed and electronically signed by: SATNAM GONZALES DO on Nov 25 2021 11:58AM [facility] DIVISION OF RADIOLOGY * * *Final Report* * * DATE OF EXAM: Nov 25 2021 11:10AM WOX 5345 - XR HAND 3V PA/LAT/OBL LT / PROCEDURE REASON: multiple diagnoses * * * * Physician Interpretation * * * * EXAMINATION: XR HAND 3V PA/LAT/OBL LT HISTORY: pt. states she fell 1 week ago. Pain Rt ribs under breast area and Lt hand 5th metacarpal area. Fall, initial encounter Left hand pain . TECHNIQUE: XR HAND 3V PA/LAT/OBL LT Laterality: LEFT Number of different views (projections): 3 M: XB_1 COMPARISON: None RESULT: Acute, impacted fracture of the fifth metacarpal neck without significant angulation. Ring obscures evaluation of the mid fourth proximal phalanx. Severe first CMC osteoarthritis with possible dislocation at the first CMC joint. Chondrocalcinosis at the radiocarpal articulation with possible subcentimeter joint bodies. DIVISION OF RADIOLOGY Provider, [facility] - 11/25/2021 * * *Final Report* * * DATE OF EXAM: Nov 25 2021 11:10AM WOX 5345 - XR HAND 3V PA/LAT/OBL LT / PROCEDURE REASON: multiple diagnoses * * * * Physician Interpretation * * * * EXAMINATION: XR HAND 3V PA/LAT/OBL LT HISTORY: pt. states she fell 1 week ago. Pain Rt ribs under breast area and Lt hand 5th metacarpal area. Fall, initial encounter Left hand pain . TECHNIQUE: XR HAND 3V PA/LAT/OBL LT Laterality: LEFT Number of different views (projections): 3 M: XB_1 COMPARISON: None RESULT: Acute, impacted fracture of the fifth metacarpal neck without significant angulation. Ring obscures evaluation of the mid fourth proximal phalanx. Severe first CMC osteoarthritis with possible dislocation at the first CMC joint. Chondrocalcinosis at the radiocarpal articulation with possible subcentimeter joint bodies. IMPRESSION IMPRESSION: 1. Acute, impacted fracture of the fifth metacarpal neck. 2. 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 3. Radiocarpal osteoarthritis and chondrocalcinosis. ACTIONABLE RESULT: FOLLOW-UP Acuity: Actionable Findings: Musculoskeletal/Rheumato logic System Routing Code: MSK_1 Recommendation: Unlisted Recommendation (see report) Time Frame: At the discretion of the clinical team. COMMUNICATION: Results will be communicated with the ordering provider via [employer] staff message or phone message by [facility] within 2 business days of report finalization. Algorithms for management of incidental imaging findings can be found on the [facility] Intranet Sharepoint site at: [email or web address] ndi [email or web address]/Forms /[email or web address] Prescription Clerk Lenses: BAILEY Transcribe Date/Time: Nov 25 2021 11:53A Dictated by : SATNAM GONZALES DO This examination was interpreted and the report reviewed and electronically signed by: SATNAM GONZALES DO on Nov 25 2021 11:58AM [facility] XR Ribs - right Views and [facility] PAon 11-25-2021 IMPRESSION: Subacute and remote fractures without definite acute fracture. Prescription Clerk Lenses: [facility] Transcribe Date/Time: Nov 25 2021 12:10P Dictated by : ALE LAGUERRE MD This examination was interpreted and the report reviewed and electronically signed by: ALE LAGUERRE MD on Nov 25 2021 12:13PM [facility] DIVISION OF RADIOLOGY * * *Final Report* * * DATE OF EXAM: Nov 25 2021 11:10AM WOX 5244 - XR RIB/CHST 3V AP RIB/OBL/CHST R / PROCEDURE REASON: multiple diagnoses * * * * Physician Interpretation * * * * PROCEDURE: Right ribs INDICATION: Fall, initial encounter Rib pain on right side .pt. states she fell 1 week ago. Pain Rt ribs under breast area and Lt hand 5th metacarpal area. TECHNIQUE: XR RIB/CHST 3V AP RIB/OBL/CHST R COMPARISON: None FINDINGS: Remote, healed 5th and 6th right rib fractures. Subacute appearing fracture of the right 7th rib. No definite acute fracture. No pleural effusion or definite pneumothorax. Degenerative change of the shoulder with narrowed acromiohumeral distance suggesting rotator cuff tear. DIVISION OF RADIOLOGY Provider, [facility] - 11/25/2021 * * *Final Report* * * DATE OF EXAM: Nov 25 2021 11:10AM WOX 5244 - XR RIB/CHST 3V AP RIB/OBL/CHST R / PROCEDURE REASON: multiple diagnoses * * * * Physician Interpretation * * * * PROCEDURE: Right ribs INDICATION: Fall, initial encounter Rib pain on right side .pt. states she fell 1 week ago. Pain Rt ribs under breast area and Lt hand 5th metacarpal area. TECHNIQUE: XR RIB/CHST 3V AP RIB/OBL/CHST R COMPARISON: None FINDINGS: Remote, healed 5th and 6th right rib fractures. Subacute appearing fracture of the right 7th rib. No definite acute fracture. No pleural effusion or definite pneumothorax. Degenerative change of the shoulder with narrowed acromiohumeral distance suggesting rotator cuff tear. IMPRESSION IMPRESSION: Subacute and remote fractures without definite acute fracture. Prescription Clerk Lenses: [facility] Transcribe Date/Time: Nov 25 2021 12:10P Dictated by : ALE LAGUERRE MD This examination was interpreted and the report reviewed and electronically signed by: ALE LAGUERRE MD on Nov 25 2021 12:13PM [facility] COVID-19 virus antigen assay SARS-CoV-2 (COVID-19) Ag IA.rapid Ql (Resp) [facility] Work Phone: Culture, urine Bacteria identified Cx Nom (U) Escherichia coli [facility] Work Phone: Vital Signs Date Time Vital Sign Value Performing Clinician Facility 05-25-2025 13:09-0400 Body temperature 97 [degF] Dr. Chance Kolb MD Work Phone: [facility] 05-25-2025 13:09-0400 Diastolic blood pressure 61 mm[Hg] Dr. Chance Kolb MD Work Phone: [facility] 05-25-2025 13:09-0400 Heart rate 89 /min Dr. Chance Kolb MD Work Phone: [facility] 05-25-2025 13:09-0400 Respiratory rate 18 /min Dr. Chance Kolb MD Work Phone: [facility] 05-25-2025 13:09-0400 Systolic blood pressure 120 mm[Hg] Dr. Chance Kolb MD Work Phone: [facility] 05-04-2025 14:41-0400 Body height 142 cm Nguyễn [employer]er [employer] SUPERVIS[employer] Work Phone: [facility] 05-04-2025 14:41-0400 Body mass index (BMI) [Ratio] 20.53 kg/m2 Nguyễn [employer]er [employer] COACH[employer] SUPERVISOR Work Phone: [facility] 05-04-2025 14:41-0400 Body weight 41.4 kg Nguyễn [employer]er [employer] COACH.[employer] SUPERVISOR Work Phone: [facility] 05-04-2025 14:41-0400 Diastolic blood pressure 54 mm[Hg] Nguyễn [employer]er [employer] COACH.[employer] B[employer]NER SUPERVISOR Work Phone: [facility] 05-04-2025 14:41-0400 Heart rate 94 /min Nguyễn [employer]er [employer] COACH.[employer] SUPERVISOR Work Phone: [facility] 05-04-2025 14:41-0400 Respiratory rate 16 /min Nguyễn [employer]er [employer] COACH.[employer] SUPERVISOR Work Phone: [facility] 05-04-2025 14:41-0400 Systolic blood pressure 102 mm[Hg] Nguyễn [employer]er FITNESS COACH.LE[employer] B[employer] SUPERVISOR Work Phone: [facility] 05-04-2025 13:08-0400 Body temperature 96.5 [degF] Dr. Chance Kolb MD Work Phone: [facility] 05-04-2025 13:08-0400 Diastolic blood pressure 60 mm[Hg] Dr. Chance Kolb MD Work Phone: [phone] [place] [address] 05-04-2025 13:08-0400 Heart rate 91 /min Dr. Chance Kolb MD Work Phone: [phone] [place] [address] 05-04-2025 13:08-0400 Respiratory rate 16 /min Dr. Chance Kolb MD Work Phone: [phone])[phone] [place] [address] 05-04-2025 13:08-0400 Systolic blood pressure 93 mm[Hg] Dr. Chance Kolb MD Work Phone: [phone] [place] [address] 03-30-2025 13:13-0400 Body temperature 97.7 [degF] Dr. Chance Kolb MD Work Phone: [phone] [place] [address] 03-30-2025 13:13-0400 Diastolic blood pressure 61 mm[Hg] Dr. Chance Kolb MD Work Phone: 3(510)729-696799 [place] [address] 03-30-2025 13:13-0400 Heart rate 91 /min Dr. Chance Kolb MD Work Phone: 7(144)213-759599 [place] [address] 03-30-2025 13:13-0400 Respiratory rate 14 /min Dr. Chance Kolb MD Work Phone: 9(238)823-163699 [place] [address] 03-30-2025 13:13-0400 Systolic blood pressure 112 mm[Hg] Dr. Chance Kolb MD Work Phone: 7(664)697-809690 [place] [address] 03-22-2025 09:42-0400 Body mass index (BMI) [Ratio] 21.12 kg/m2 Nguyễn Stringer APRN.LEAD BURNER SUPERVISOR Work Phone: [facility] 03-22-2025 09:42-0400 Body weight 43.5 kg Nguyễn Stringer APRN.LEAD BURNER SUPERVISOR Work Phone: [facility] 03-22-2025 09:42-0400 Diastolic blood pressure 58 mm[Hg] Nguyễn Stringer APRN.LEAD BURNER SUPERVISOR Work Phone: [facility] 03-22-2025 09:42-0400 Heart rate 74 /min Nguyễn Stringer FITNESS COACH.LEAD BURNER SUPERVISOR Work Phone: [facility] 03-22-2025 09:42-0400 Respiratory rate 16 /min Nguyễn Stringer FITNESS COACH.LEAD BURNER SUPERVISOR Work Phone: [facility] 03-22-2025 09:42-0400 Systolic blood pressure 100 mm[Hg] Nguyễn Stringer FITNESS COACH.LEAD BURNER SUPERVISOR Work Phone: [facility] 03-18-2025 13:04-0400 Body temperature 98.7 [degF] Dr. Chance Kolb MD Work Phone: 6(718)912-219890 [place] [address] 03-18-2025 13:04-0400 Diastolic blood pressure 66 mm[Hg] Dr. Chance Kolb MD Work Phone: 0(066)446-784590 [place] [address] 03-18-2025 13:04-0400 Heart rate 74 /min Dr. Chance Kolb MD Work Phone: 3(857)594-501890 [place] [address] 03-18-2025 13:04-0400 Respiratory rate 18 /min Dr. Chance Kolb MD Work Phone: 9(872)517-901890 [place] [address] 03-18-2025 13:04-0400 SaO2% (BldA) [Mass fraction] 98 % Dr. Chance Kolb MD Work Phone: 8(385)920-556390 [place] [address] 03-18-2025 13:04-0400 Systolic blood pressure 102 mm[Hg] Dr. Chance Kolb MD Work Phone: [facility] 03-18-2025 09:23-0400 Body height 147.[address] Chance Kolb MD Work Phone: 7(679)354-111490 [place] [address] 03-18-2025 09:23-0400 Body mass index (BMI) [Ratio] 18.8 kg/m2 Dr. Chance Kolb MD Work Phone: 2(436)539-376490 [place] [address] 03-18-2025 09:23-0400 Body weight 40.[address] Chance Kolb MD Work Phone: 9(058)701-348999 [place] [address] 03-13-2025 21:15-0400 Body temperature 97.8 [degF] Dr. Chance Kolb MD Work Phone: 7(665)322-801799 [place] [address] 03-13-2025 21:15-0400 Diastolic blood pressure 88 mm[Hg] Dr. Chance Kolb MD Work Phone: 4(671)222-121099 [place] [address] 03-13-2025 21:15-0400 Heart rate 76 /min Dr. Chance Kolb MD Work Phone: 7(349)303-420699 [place] [address] 03-13-2025 21:15-0400 Respiratory rate 18 /min Dr. Chance Kolb MD Work Phone: 5(211)427-190699 [place] [address] 03-13-2025 21:15-0400 SaO2% (BldA) [Mass fraction] 100 % Dr. Chance Kolb MD Work Phone: 5(593)684-948099 [place] [address] 03-13-2025 21:15-0400 Systolic blood pressure 138 mm[Hg] Dr. Chance Kolb MD Work Phone: 1(213)025-463299 [place] [address] 03-13-2025 19:13-0400 Body height 147.[address] Chance Kolb MD Work Phone: 2(794)098-643299 [place] [address] 03-13-2025 19:13-0400 Body mass index (BMI) [Ratio] 19.4 kg/m2 Dr. Chance Kolb MD Work Phone: 9(765)183-266499 [place] [address] 03-13-2025 19:13-0400 Body weight 42.[address] Chance Kolb MD Work Phone: 3(379)927-093799 [place] [address] 03-09-2025 12:55-0400 Body temperature 98.3 [degF] Dr. Chance Kolb MD Work Phone: 6(327)175-996099 [place] [address] 03-09-2025 12:55-0400 Diastolic blood pressure 67 mm[Hg] Dr. Chance Kolb MD Work Phone: 6(650)504-665199 [place] [address] 03-09-2025 12:55-0400 Heart rate 78 /min Dr. Chance Kolb MD Work Phone: 6(058)905-659599 [place] [address] 03-09-2025 12:55-0400 Respiratory rate 18 /min Dr. Chance Kolb MD Work Phone: 0(729)907-433599 [place] [address] 03-09-2025 12:55-0400 Systolic blood pressure 124 mm[Hg] Dr. Chance Kolb MD Work Phone: 8(836)287-386599 [place] [address] 03-02-2025 13:34-0400 Body mass index (BMI) [Ratio] 19.5 kg/m2 Dr. Chance Kolb MD Work Phone: 8(376)320-555099 [place] [address] 03-02-2025 13:34-0400 Body temperature 98.7 [degF] Dr. Chance Kolb MD Work Phone: 3(087)020-026999 [place] [address] 03-02-2025 13:34-0400 Diastolic blood pressure 56 mm[Hg] Dr. Chance Kolb MD Work Phone: 0(090)085-691099 [place] [address] 03-02-2025 13:34-0400 Heart rate 91 /min Dr. Chance Kolb MD Work Phone: 8(495)724-909199 [place] [address] 03-02-2025 13:34-0400 Respiratory rate 16 /min Dr. Chance Kolb MD Work Phone: 8(409)179-218399 [place] [address] 03-02-2025 13:34-0400 Systolic blood pressure 99 mm[Hg] Dr. Chance Kolb MD Work Phone: 2(723)790-317999 [place] [address] 02-07-2025 00:21-0400 Body weight 43.[address] Chance Kolb MD Work Phone: 4(490)353-954099 [place] [address] 02-02-2025 14:09-0400 Body mass index (BMI) [Ratio] 19.5 kg/m2 Dr. Chance Kolb MD Work Phone: 6(541)150-761499 [place] [address] 02-02-2025 14:09-0400 Body temperature 97 [degF] Dr. Chance Kolb MD Work Phone: 6(755)904-475999 [place] [address] 02-02-2025 14:09-0400 Diastolic blood pressure 66 mm[Hg] Dr. Chance Kolb MD Work Phone: 3(131)682-408099 [place] [address] 02-02-2025 14:09-0400 Heart rate 96 /min Dr. Chance Kolb MD Work Phone: 0(484)658-112499 [place] [address] 02-02-2025 14:09-0400 Respiratory rate 18 /min Dr. Chance Kolb MD Work Phone: 3(298)962-264499 [place] [address] 02-02-2025 14:09-0400 Systolic blood pressure 106 mm[Hg] Dr. Chance Kolb MD Work Phone: 2(913)364-775199 [place] [address] 01-07-2025 00:47-0400 Body weight 43.[address] Chance Kolb MD Work Phone: 5(432)819-739199 [place] [address] 01-06-2025 14:05-0400 Body height 148.[address] Chance Kolb MD Work Phone: 7(257)794-182899 [place] [address] 01-06-2025 14:05-0400 Body mass index (BMI) [Ratio] 19.5 kg/m2 Dr. Chance Kolb MD Work Phone: 3(763)153-720499 [place] [address] 01-06-2025 14:05-0400 Body temperature 97.7 [degF] Dr. Chance Kolb MD Work Phone: 7(876)150-907599 [place] [address] 01-06-2025 14:05-0400 Body weight 43.[address] Chance Kolb MD Work Phone: 1(261)419-026399 [place] [address] 01-06-2025 14:05-0400 Diastolic blood pressure 60 mm[Hg] Dr. Chance Kolb MD Work Phone: 8(410)787-379499 [place] [address] 01-06-2025 14:05-0400 Heart rate 81 /min Dr. Chance Kolb MD Work Phone: 4(406)610-764599 [place] [address] 01-06-2025 14:05-0400 Respiratory rate 16 /min Dr. Chance Kolb MD Work Phone: 9(214)841-779199 [place] [address] 01-06-2025 14:05-0400 Systolic blood pressure 98 mm[Hg] Dr. Chance Kolb MD Work Phone: 1(274)678-535699 [place] [address] 01-01-2025 22:52-0400 Body temperature 98 [degF] Dr. Chance Kolb MD Work Phone: 2(534)239-835799 [place] [address] 01-01-2025 22:52-0400 Diastolic blood pressure 58 mm[Hg] Dr. Chance Kolb MD Work Phone: 7(610)894-035799 [place] [address] 01-01-2025 22:52-0400 Heart rate 90 /min Dr. Chance Kolb MD Work Phone: 3(067)405-168699 [place] [address] 01-01-2025 22:52-0400 Respiratory rate 16 /min Dr. Chance Kolb MD Work Phone: 2(220)038-738899 [place] [address] 01-01-2025 22:52-0400 SaO2% (BldA) [Mass fraction] 94 % Dr. Chance Kolb MD Work Phone: 8(135)363-921599 [place] [address] 01-01-2025 22:52-0400 Systolic blood pressure 102 mm[Hg] Dr. Chance Kolb MD Work Phone: 8(695)462-212599 [place] [address] 01-01-2025 20:13-0400 Body mass index (BMI) [Ratio] 18.7 kg/m2 Dr. Chance Kolb MD Work Phone: 5(176)048-976999 [place] [address] 01-01-2025 20:13-0400 Body weight 40.[address] Chance Kolb MD Work Phone: 8(409)530-656799 [place] [address] 07-27-2024 12:20-0500 Body mass index (BMI) [Ratio] 20.39 kg/m2 Nguyễn Stringer APRN.LEAD BURNER SUPERVISOR Work Phone: 1(120)246-339512 [place] [address] 07-27-2024 12:20-0500 Body weight 42 kg Nguyễn Stringer APRN.LEAD BURNER SUPERVISOR Work Phone: 9(593)793-897112 [place] [address] 07-27-2024 12:20-0500 Diastolic blood pressure 54 mm[Hg] Nguyễn Stringer FITNESS COACH.LEAD BURNER SUPERVISOR Work Phone: [facility] 07-27-2024 12:20-0500 Heart rate 88 /min Nguyễn Bergs FITNESS COACH.LEAD BURNER SUPERVISOR Work Phone: [facility] 07-27-2024 12:20-0500 Respiratory rate 16 /min Nguyễn Bergs FITNESS COACH.LEAD BURNER SUPERVISOR Work Phone: [facility] 07-27-2024 12:20-0500 Systolic blood pressure 89 mm[Hg] Nguyễn Bergs FITNESS COACH.LEAD BURNER SUPERVISOR Work Phone: [facility] 07-25-2024 10:42-0500 Body mass index (BMI) [Ratio] 20.44 kg/m2 Carmen Miranda APRN.DEALERSHIP MANAGER Work Phone: [facility] 07-25-2024 10:42-0500 Body temperature 97.3 [degF] Carmen Miranda APRN.DEALERSHIP MANAGER Work Phone: [facility] 07-25-2024 10:42-0500 Body weight 42.1 kg Carmen Miranda APRN.DEALERSHIP MANAGER Work Phone: [facility] 07-25-2024 10:42-0500 Diastolic blood pressure 71 mm[Hg] Carmen Miranda APRN.DEALERSHIP MANAGER Work Phone: [facility] 07-25-2024 10:42-0500 Heart rate 83 /min Carmen Miranda APRN.DEALERSHIP MANAGER Work Phone: [facility] 07-25-2024 10:42-0500 Respiratory rate 16 /min Carmen Miranda APRN.DEALERSHIP MANAGER Work Phone: [facility] 07-25-2024 10:42-0500 SaO2% (BldA) [Mass fraction] 94 % Carmen Miranda APRN.DEALERSHIP MANAGER Work Phone: [facility] 07-25-2024 10:42-0500 Systolic blood pressure 109 mm[Hg] Carmen Miranda APRN.DEALERSHIP MANAGER Work Phone: [facility] 06-24-2024 15:46-0400 Body mass index (BMI) [Ratio] 20.64 kg/m2 Chance Kolb MD Work Phone: [facility] 06-24-2024 15:46-0400 Body temperature 97.11 [degF] Chance Kolb MD Work Phone: [facility] 06-24-2024 15:46-0400 Body weight 42.5 kg Chance Kolb MD Work Phone: [facility] 06-24-2024 15:46-0400 Diastolic blood pressure 60 mm[Hg] Chance Kolb MD Work Phone: [facility] 06-24-2024 15:46-0400 Heart rate 84 /min Chance Kolb MD Work Phone: [facility] 06-24-2024 15:46-0400 Respiratory rate 18 /min Chance Kolb MD Work Phone: [facility] 06-24-2024 15:46-0400 SaO2% (BldA) [Mass fraction] 93 % Chance Kolb MD Work Phone: [facility] 06-24-2024 15:46-0400 Systolic blood pressure 90 mm[Hg] Chance Kolb MD Work Phone: [facility] 05-14-2024 15:04-0400 Body mass index (BMI) [Ratio] 20.05 kg/m2 Nguyễn Stringer FITNESS COACH.LEAD BURNER SUPERVISOR Work Phone: [facility] 05-14-2024 15:04-0400 Body weight 41.3 kg Nguyễn Stringer FITNESS COACH.LEAD BURNER SUPERVISOR Work Phone: [facility] 05-14-2024 15:04-0400 Diastolic blood pressure 61 mm[Hg] Nguyễn Stringer FITNESS COACH.LEAD BURNER SUPERVISOR Work Phone: [facility] 05-14-2024 15:04-0400 Heart rate 87 /min Nguyễn Stringer FITNESS COACH.LEAD BURNER SUPERVISOR Work Phone: [facility] 05-14-2024 15:04-0400 Respiratory rate 16 /min Nguyễn Stringer FITNESS COACH.LEAD BURNER SUPERVISOR Work Phone: [facility] 05-14-2024 15:04-0400 Systolic blood pressure 98 mm[Hg] Nguyễn Stringer FITNESS COACH.LEAD BURNER SUPERVISOR Work Phone: [facility] 01-09-2024 10:29-0400 Body height 148.6 cm Thea Vail MD Work Phone: [facility] 01-09-2024 10:29-0400 Body mass index (BMI) [Ratio] 18.49 kg/m2 Thea Vail MD Work Phone: [facility] 01-09-2024 10:29040 Body weight 40.82 kg Thea Vail MD Work Phone: [facility] 01-09-2024 10:29-0400 Diastolic blood pressure 70 mm[Hg] Thea Vail MD Work Phone: [facility] 01-09-2024 10:29-0400 Systolic blood pressure 116 mm[Hg] Thea Vail MD Work Phone: [facility] 12-31-2023 14:19-0400 Body mass index (BMI) [Ratio] 19.16 kg/m2 Malachi Vijaya FITNESS COACH.DEALERSHIP MANAGER Work Phone: [facility] 12-31-2023 14:19-0400 Body weight 39.46 kg Malachi Vijaya FITNESS COACH.DEALERSHIP MANAGER Work Phone: [facility] 12-31-2023 14:19-0400 Diastolic blood pressure 52 mm[Hg] Malachi Vijaya FITNESS COACH.DEALERSHIP MANAGER Work Phone: [facility] 12-31-2023 14:19-0400 Heart rate 95 /min Malachi Vijaya FITNESS COACH.DEALERSHIP MANAGER Work Phone: [facility] 12-31-2023 14:19-0400 SaO2% (BldA) [Mass fraction] 90 % Malachi Vijaya FITNESS COACH.DEALERSHIP MANAGER Work Phone: [facility] 12-31-2023 14:19-0400 Systolic blood pressure 110 mm[Hg] Malachi Vijaya FITNESS COACH.DEALERSHIP MANAGER Work Phone: [facility] 08-29-2023 10:13-0500 Body height 148.6 cm Thea Vail MD Work Phone: [facility] 08-29-2023 10:13-0500 Body mass index (BMI) [Ratio] 18.49 kg/m2 Thea Vail MD Work Phone: [facility] 08-29-2023 10:13-0500 Body weight 40.82 kg Thea Vail MD Work Phone: [facility] 08-29-2023 10:13-0500 Diastolic blood pressure 74 mm[Hg] Thea Vail MD Work Phone: [facility] 08-29-2023 10:13-0500 Systolic blood pressure 114 mm[Hg] Thea Vail MD Work Phone: [facility] 08-12-2023 13:54-0500 Body height 148.6 cm Thea Vail MD Work Phone: [facility] 08-12-2023 13:54-0500 Body mass index (BMI) [Ratio] 18.49 kg/m2 Thea Vail MD Work Phone: [facility] 08-12-2023 13:54-0500 Body weight 40.82 kg Thea Vail MD Work Phone: [facility] 08-12-2023 13:54-0500 Diastolic blood pressure 68 mm[Hg] Thea Vail MD Work Phone: [facility] 08-12-2023 13:54-0500 Systolic blood pressure 122 mm[Hg] Thea Vail MD Work Phone: [facility] 07-31-2023 14:39-0500 Body temperature 98.01 [degF] Malachi Grimesr FITNESS COACH.DEALERSHIP MANAGER Work Phone: [facility] 07-31-2023 14:39-0500 Body weight 40.37 kg Malachi Vijaya FITNESS COACH.DEALERSHIP MANAGER Work Phone: [facility] 07-31-2023 14:39-0500 Diastolic blood pressure 40 mm[Hg] Malachi Vijaya FITNESS COACH.DEALERSHIP MANAGER Work Phone: [facility] 07-31-2023 14:39-0500 Heart rate 83 /min Malachi Vijaya FITNESS COACH.DEALERSHIP MANAGER Work Phone: [facility] 07-31-2023 14:39-0500 SaO2% (BldA) [Mass fraction] 88 % Malachi Vijaya FITNESS COACH.DEALERSHIP MANAGER Work Phone: [facility] 07-31-2023 14:39-0500 Systolic blood pressure 80 mm[Hg] Malachi Vijaya FITNESS COACH.DEALERSHIP MANAGER Work Phone: [facility] 06-21-2023 16:07-0400 Body temperature 98.6 [degF] Chance Klob MD Work Phone: [facility] 06-21-2023 16:07-0400 Body weight 40.37 kg Chance Kolb MD Work Phone: [facility] 06-21-2023 16:07-0400 Diastolic blood pressure 60 mm[Hg] Chance Kolb MD Work Phone: [facility] 06-21-2023 16:07-0400 Heart rate 80 /min Chance Kolb MD Work Phone: [facility] 06-21-2023 16:07-0400 Respiratory rate 20 /min Chance Kolb MD Work Phone: [facility] 06-21-2023 16:07-0400 Systolic blood pressure 90 mm[Hg] Chance Kolb MD Work Phone: [facility] 05-06-2023 11:15-0400 Body weight 38.42 kg Malachi Vijaya FITNESS COACH.DEALERSHIP MANAGER Work Phone: [facility] 05-06-2023 11:15-0400 Diastolic blood pressure 60 mm[Hg] Malachi Vijaya FITNESS COACH.DEALERSHIP MANAGER Work Phone: [facility] 05-06-2023 11:15-0400 Heart rate 68 /min Malachi Vijaya FITNESS COACH.DEALERSHIP MANAGER Work Phone: [facility] 05-06-2023 11:15-0400 SaO2% (BldA) [Mass fraction] 96 % Malachi Vijaya FITNESS COACH.DEALERSHIP MANAGER Work Phone: [facility] 05-06-2023 11:15-0400 Systolic blood pressure 100 mm[Hg] Malachi Vijaya FITNESS COACH.DEALERSHIP MANAGER Work Phone: [facility] 04-29-2023 13:28-0400 Body height 147.32 cm [facility] 04-29-2023 13:28-0400 Body mass index (BMI) [Ratio] 17.8 kg/m2 [facility] 04-29-2023 13:28-0400 Body temperature 97.5 [degF] [facility] 04-29-2023 13:28-0400 Body weight 38.73 kg [facility] 04-29-2023 13:28-0400 Diastolic blood pressure 63 mm[Hg] [facility] 04-29-2023 13:28-0400 Heart rate 90 /min [facility] 04-29-2023 13:28-0400 Respiratory rate 18 /min [facility] 04-29-2023 13:28-0400 SaO2% (BldA) [Mass fraction] 96 % [facility] 04-29-2023 13:28-0400 Systolic blood pressure 112 mm[Hg] [facility] 03-26-2023 10:24-0400 Body weight 37.65 kg Malachi Vijaya FITNESS COACH.DEALERSHIP MANAGER Work Phone: [facility] 03-26-2023 10:24-0400 Diastolic blood pressure 54 mm[Hg] Malachi Vijaya FITNESS COACH.DEALERSHIP MANAGER Work Phone: [facility] 03-26-2023 10:24-0400 Heart rate 75 /min Malachi Vijaya FITNESS COACH.DEALERSHIP MANAGER Work Phone: [facility] 03-26-2023 10:24-0400 SaO2% (BldA) [Mass fraction] 85 % Malachi Vijaya FITNESS COACH.DEALERSHIP MANAGER Work Phone: [facility] 03-26-2023 10:24-0400 Systolic blood pressure 100 mm[Hg] Malachi Lilly APRN.CNP Work Phone: [facility] 11-16-2022 14:29-0500 Body temperature 97.3 [degF] Chance Kolb MD Work Phone: [facility] 11-16-2022 14:29-0500 Body weight 37.2 kg Chance Kolb MD Work Phone: [facility] 11-16-2022 14:29-0500 Diastolic blood pressure 60 mm[Hg] Chance Kolb MD Work Phone: [facility] 11-16-2022 14:29-0500 Heart rate 96 /min Chance Kolb MD Work Phone: [facility] 11-16-2022 14:29-0500 Respiratory rate 18 /min Chance Kolb MD Work Phone: [facility] 11-16-2022 14:29-0500 SaO2% (BldA) [Mass fraction] 96 % Chance Kolb MD Work Phone: [facility] 11-16-2022 14:29-0500 Systolic blood pressure 104 mm[Hg] Chance Kolb MD Work Phone: [facility] 09-08-2022 14:26-0500 Body mass index (BMI) [Ratio] 16.1 kg/m2 Dr. Chance Kolb Work Phone: [facility] Work Phone: 09-08-2022 13:42-0500 Body temperature 98.4 [degF] Dr. Chance Kolb Work Phone: [facility] Work Phone: 09-08-2022 13:42-0500 Diastolic blood pressure 79 mm[Hg] Dr. Chance Kolb Work Phone: [facility] Work Phone: 09-08-2022 13:42-0500 Heart rate 76 /min Dr. Chance Kolb Work Phone: [facility] Work Phone: 09-08-2022 13:42-0500 Respiratory rate 17 /min Dr. Chance Kolb Work Phone: [facility] Work Phone: 09-08-2022 13:42-0500 SaO2% (BldA) [Mass fraction] 97 % Dr. Chance Kolb Work Phone: [facility] Work Phone: 09-08-2022 13:42-0500 Systolic blood pressure 120 mm[Hg] Dr. Chance Kolb Work Phone: [facility] Work Phone: 09-07-2022 14:59-0500 Body height 147.[address] Chance Kolb Work Phone: [facility] Work Phone: 09-07-2022 14:59-0500 Body weight [address] Chance Kolb Work Phone: [facility] Work Phone: 09-07-2022 01:09-0500 Diastolic blood pressure 66 mm[Hg] [facility] Work Phone: 09-07-2022 01:09-0500 Respiratory rate 18 /min [facility] Work Phone: 09-07-2022 01:09-0500 SaO2% (BldA) [Mass fraction] 97 % [facility] Work Phone: 09-07-2022 01:09-0500 Systolic blood pressure 104 mm[Hg] [facility] Work Phone: 09-06-2022 22:10-0500 Body temperature 98.9 [degF] [facility] Work Phone: 09-06-2022 22:10-0500 Heart rate 69 /min [facility] Work Phone: 09-06-2022 17:44-0500 Body height 147.32 cm [facility] Work Phone: 09-06-2022 17:44-0500 Body mass index (BMI) [Ratio] 17.3 kg/m2 [facility] Work Phone: 09-06-2022 17:44-0500 Body weight 37.64 kg [facility] Work Phone: 09-02-2022 10:37-0500 Body temperature 97.5 [degF] [facility] Work Phone: 09-02-2022 10:37-0500 Diastolic blood pressure 66 mm[Hg] [facility] Work Phone: 09-02-2022 10:37-0500 Heart rate 89 /min [facility] Work Phone: 09-02-2022 10:37-0500 Respiratory rate 8 /min [facility] Work Phone: 09-02-2022 10:37-0500 SaO2% (BldA) [Mass fraction] 100 % [facility] Work Phone: 09-02-2022 10:37-0500 Systolic blood pressure 111 mm[Hg] [facility] Work Phone: 09-01-2022 10:48-0500 Body height 147.32 cm [facility] Work Phone: 09-01-2022 10:48-0500 Body mass index (BMI) [Ratio] 18 kg/m2 [facility] Work Phone: 09-01-2022 10:48-0500 Body weight 39.2 kg [facility] Work Phone: 05-27-2022 10:43-0400 Body height 147.32 cm [facility] Work Phone: 05-27-2022 10:43-0400 Body mass index (BMI) [Ratio] 19.3 kg/m2 [facility] Work Phone: 05-27-2022 10:43-0400 Body temperature 98 [degF] [facility] Work Phone: 05-27-2022 10:43-0400 Body weight 42 kg [facility] Work Phone: 05-27-2022 10:43-0400 Diastolic blood pressure 82 mm[Hg] [facility] Work Phone: 05-27-2022 10:43-0400 Heart rate 79 /min [facility] Work Phone: 05-27-2022 10:43-0400 Respiratory rate 12 /min [facility] Work Phone: 05-27-2022 10:43-0400 SaO2% (BldA) [Mass fraction] 94 % [facility] Work Phone: 05-27-2022 10:43-0400 Systolic blood pressure 131 mm[Hg] [facility] Work Phone: 03-30-2022 13:04-0400 Body weight 38.56 kg Chance Kolb MD Work Phone: [facility] 03-30-2022 13:04-0400 Diastolic blood pressure 56 mm[Hg] Chance Kolb MD Work Phone: [facility] 03-30-2022 13:04-0400 Heart rate 75 /min Chance Kolb MD Work Phone: [facility] 03-30-2022 13:04-0400 SaO2% (BldA) [Mass fraction] 97 % Chance Kolb MD Work Phone: [facility] 03-30-2022 13:04-0400 Systolic blood pressure 98 mm[Hg] Chance Kolb MD Work Phone: [facility] 03-20-2022 06:54-0400 Body weight 39.37 kg Essie De Land FITNESS COACH.DEALERSHIP MANAGER Work Phone: [facility] 03-20-2022 06:54-0400 Diastolic blood pressure 60 mm[Hg] Essie De Land FITNESS COACH.DEALERSHIP MANAGER Work Phone: [facility] 03-20-2022 06:54-0400 Systolic blood pressure 100 mm[Hg] Essie De Land FITNESS COACH.DEALERSHIP MANAGER Work Phone: [facility] 02-01-2022 13:46-0400 Body temperature 96.8 [degF] Bailey Johnson FITNESS COACH.DEALERSHIP MANAGER Work Phone: [facility] 02-01-2022 13:46-0400 Body weight 39.19 kg Bailey Johnson FITNESS COACH.DEALERSHIP MANAGER Work Phone: [facility] 02-01-2022 13:46-0400 Diastolic blood pressure 56 mm[Hg] Bailey Johnson FITNESS COACH.DEALERSHIP MANAGER Work Phone: [facility] 02-01-2022 13:46-0400 Heart rate 75 /min Bailey Johnson FITNESS COACH.DEALERSHIP MANAGER Work Phone: [facility] 02-01-2022 13:46-0400 Respiratory rate 20 /min Bailey Johnson FITNESS COACH.DEALERSHIP MANAGER Work Phone: [facility] 02-01-2022 13:46-0400 SaO2% (BldA) [Mass fraction] 96 % Bailey Johnson FITNESS COACH.DEALERSHIP MANAGER Work Phone: [facility] 02-01-2022 13:46-0400 Systolic blood pressure 98 mm[Hg] Bailey Johnson FITNESS COACH.DEALERSHIP MANAGER Work Phone: [facility] 10-17-2021 19:35-0500 Body weight 40.82 kg Chance Kolb MD Work Phone: [facility] 10-17-2021 19:35-0500 Heart rate 86 /min Chance Kolb MD Work Phone: [facility] Encounters Encounter Date Encounter Type Care Provider Facility Start: 07-10-2025 End: 07-10-2025 ambulatory CHANCE D JOSIELB Facility:[facility] Start: 06-28-2025 ambulatory MANJU ALFARO [facility] Start: 06-23-2025 End: 06-23-2025 ambulatory CHANCE D CORTES Facility:[facility] Start: 06-18-2025 ambulatory Chance D Jamesamplb Facilit y:[facility] Start: 05-25-2025 Non-patient / [facility] Start: 05-25-2025 End: 06-08-2025 Admission to same day surgery center Dr. Cedric Gibbons MD -[facility] [place] Work Phone: Start: 05-25-2025 End: 06-08-[address] Chance Kolb MD Work Phone: -[facility] Start: 05-24-2025 ambulatory [facility] Facility:[facility] Start: 05-24-2025 End: 05-24-2025 Subsequent hospital visit by physician Screen Mammo [facility] Mammogram Start: 05-09-2025 Non-patient / [facility] Start: 05-04-2025 Non-patient / Non-visit Dr. Cedric Gibbons MD [facility] Start: 05-04-2025 End: 05-04-2025 Patient encounter procedure Nguyễn Stringer FITNESS COACH.LEAD BURNER SUPERVISOR Work Phone: Internal Medicine [place] Comment on above: Medicare annual well ness visit, subsequent (Primary Dx); Osteoporosis, unspecified osteoporosis type, unspecified pathological fracture presence; Crohn's disease without complication, unspecified gastrointestinal tract location (HCC); Screening for colon cancer; Encounter for immunization; Encounter for screening mammogram for malignant neoplasm of breast; Other abnormal glucose Start: 05-04-2025 End: 05-09-2025 Admission to same day surgery center Dr. Cedric Gibbons MD -[facility] Work Phone: Start: 05-04-2025 End: 05-09-[address] Chance Kolb MD Work Phone: -[facility] Start: 04-29-2025 End: 04-29-2025 ambulatory MALACHI GRIMESR Facility:[facility] Start: 04-20-2025 Non-patient / Non-visit Dr. Cedric Gibbons MD [facility] Start: 04-01-2025 Non-patient / [facility] Start: 03-30-2025 End: 04-08-[address] Chance Kolb MD Work Phone: -[facility] Start: 03-30-2025 End: 04-08-[address] Cedric Gibbons MD -Wound Healing [facility] Work Phone: Start: 03-30-2025 Non-patient / Non-visit Dr. Cedric Gibbons MD [facility] Start: 03-23-2025 Non-patient / Non-visit Dr. Cedric Gibbons MD [facility] Start: 03-22-2025 End: 03-22-2025 Office outpatient visit 25 minutes Nguyễn Stringer APRN.[facility] Work Phone: Internal Medicine [place] Comment on above: Laceration of lower extremity, unspecified laterality, subsequent encounter (Primary Dx); Visit for suture removal; Fall, subsequent encounter; Acute pain of left hip; Compression fracture of L4 vertebra with routine healing, subsequent encounter; Age-related osteoporosis without current pathological fracture Start: 03-22-2025 End: 03-22-2025 [facility] Facility:[facility] Start: 03-18-2025 End: 03-18-2025 Emergency department patient visit Dr. Chance Kolb MD Work Phone: -Emergency Department Work Phone: Start: 03-13-2025 End: 03-13-2025 Emergency department patient visit Dr. Chance Kolb MD Work Phone: -Emergency Department Work Phone: Start: 03-11-2025 Non-patient / [facility] Start: 03-09-2025 Non-patient / Non-visit Dr. Cedric Gibbons MD [facility] Start: 03-09-[address] Cedric Buck rn, MD -[facility]aling Center Work Phone: Start: 03-02-2025 End: 03-08-[address] Chance Kolb MD Work Phone: -[facility] Center Start: 03-02-2025 End: 03-08-[address] Cedric Gibbons MD -[facility] Work Phone: Start: 03-02-2025 Non-patient / [facility] Start: 02-23-2025 Non-patient / [facility] Start: 02-16-2025 Non-patient / [facility] Start: 02-09-2025 Non-patient / [facility] Start: 02-03-2025 End: 02-03-2025 Refill Chance Kolb MD Work Phone: [facility] [place] Comment on above: Refill Request Start: 02-02-2025 Non-patient / [facility] Start: 02-02-2025 End: 02-06-[address] Chance Kolb MD Work Phone: [facility] Work Phone: Start: 02-02-2025 End: 02-06-[address] Cedric Gibbons MD -Wound Healing [facility] ter Work Phone: Start: 01-29-2025 End: 01-29-2025 ambulatory MALACHI VIJAYA Facility:[facility] Start: 01-19-2025 Non-patient / [facility] Start: 01-13-2025 Non-patient / [facility] Start: 01-06-2025 Non-patient / Non-visit [facility] Cedric [facility] Start: 01-06-2025 End: 01-06-[address] Cedric Gibbons MD -[facility] Work Phone: Start: 01-06-2025 End: 01-06-2025 ambulatory Cedric Gibbons Facility:[facility] Start: 01-01-2025 End: 01-01-2025 Emergency department patient visit Dr. Crow Moreno -Emergency Department Work Phone: Start: 12-17-2024 End: 12-17-2024 ambulatory CHANCE KOLB Facility:[facility] Start: 2024 End: 2024 Telephone encounter Nguyễn Stringer APRN.CNS Work Phone: Internal Medicine [place] Comment on above: Results Start: 10-06-2024 End: 10-08-2024 ambulatory Chance Kolb MD Work Phone: Internal Medicine [place] Comment on above: Shingles vaccine Start: 10-05-2024 End: 10-05-2024 ambulatory CARMEN MIRANDA Facility:[facility] Start: 08-17-2024 End: 08-17-2024 ambulatory CHANCE KOLB Facility:[facility] Start: 08-17-2024 End: 08-17-2024 Subsequent hospital visit by physician Bone Density [facility] Work Phone: Radiology Comment on above: Asymptomatic postmen opausal status [Z78.0] Start: 08-14-2024 End: 08-17-2024 ambulatory Bailey O'Edison PT [facility] Physical Therapy Comment on above: Gait instability (Pr imary Dx) Start: 08-07-2024 End: 08-12-2024 Telephone encounter Chance Kolb MD Work Phone: [facility] [place] Start: 08-07-2024 End: 08-11-2024 ambulatory Bailey O'Edison PT [facility] Physical [facility] Comment on above: Gait instability (Pr imary Dx) uTI Start: 07-27-2024 End: 07-27-2024 ambulatory Bailey O'Edison PT [facility] Comment on above: Gait instability (Pr imary Dx) Start: 07-27-2024 End: 07-27-2024 Office outpatient visit 15 minutes Nguyễn Stringer APRN.LEAD BURNER SUPERVISOR Work Phone: Internal Medicine [place] Comment on above: Urinary tract infect ion with hematuria, site unspecified (Primary Dx) Start: 07-27-2024 End: 07-27-2024 ambulatory NGUYỄN STRINGER Facility:[facility] Start: 07-25-2024 End: 07-25-2024 ambulatory CHANCE KOLB Facility:[facility] Start: 07-25-2024 End: 07-25-2024 Patient encounter procedure Carmen Miranda APRN.DEALERSHIP MANAGER Work Phone: [place] [facility] Comment on above: Dysuria (Primary Dx) ; Urinary tract infection with hematuria, site unspecified Start: 07-17-2024 End: 07-17-2024 ambulatory Bailey Madrigal PT [facility] Physical [facility] Comment on above: Gait instability (Pr imary Dx) Start: 06-24-2024 End: 06-24-2024 Office outpatient visit 25 minutes Chance Kolb MD Work Phone: Internal Medicine [place] Comment on above: Chronic midline low back pain without sciatica (Primary Dx); Age-related osteoporosis without current pathological fracture; Degeneration of intervertebral disc of lumbar region with discogenic back pain; Lumbar spondylosis; Asymptomatic postmenopausal status; Gait instability; Crohn's disease of large intestine without complication (HCC); Numbness and tingling in right hand; Acquired hypothyroidism; Raynaud's disease without gangrene; Vitamin D deficiency; Crohn's disease without complication, unspecified gastrointestinal tract location (HCC); Essential (primary) hypertension; Hypercholesteremia; Encounter for immunization; Encounter for long-term current use of medication Start: 05-15-2024 End: 05-15-2024 Telephone encounter Chance Kolb MD Work Phone: Internal Medicine [place] Comment on above: Patient Question Start: 05-14-2024 End: 05-14-2024 Office outpatient visit 15 minutes Nguyễn Stringer APRN.LEAD BURNER SUPERVISOR Work Phone: Internal Medicine [place] Comment on above: Cervicalgia (Primary Dx); Acute intractable headache, unspecified headache type; Acute intractable tension-type headache Start: 03-30-2024 Documentation procedure Mammog nohemy Coordinator [facility] Department Start: 03-30-2024 Letter encounter Mammography Coordinator [facility] Department Start: 03-27-2024 End: 03-27-2024 Subsequent hospital visit by physician Screen Mammo [facility] Mammogram Comment on above: Encounter for screen ing mammogram for breast cancer [Z12.31] Start: 01-09-2024 End: 01-09-2024 ambulatory CORTES FLETCHER [facility] Start: 01-09-2024 End: 01-09-2024 Office outpatient visit 15 minutes Thea Vail MD Work Phone: [facility] Comment on above: Rupture of flexor po llicis longus muscle (Primary Dx); Retained orthopedic hardware; Mass of finger of right hand Start: 01-03-2024 ambulatory Malachi Lilly APRN.DEALERSHIP MANAGER Work Phone: Internal Medicine [place] Comment on above: Results Start: 01-03-2024 E-mail encounter fro m caregiver Malachi Lilly APRN.DEALERSHIP MANAGER Work Phone: Internal Medicine [place] Start: 01-01-2024 ambulatory Maggie weathers PA-C Work Phone: Orthopaedics Start: 01-01-2024 Patient encounter procedure Maggie Landerosi PA-C Work Phone: Orthopaedics Comment on above: I saw you before and I didn't follow through. Could we schedule an appointment. You are in [place] right? Start: 12-31-2023 End: 12-31-2023 Subsequent hospital visit by physician Xr [facility] [place] Work Phone: Radiology Comment on above: Acute bilateral low back pain without sciatica [M54.50] Start: 12-31-2023 End: 12-31-2023 Patient encounter procedure Malachi Lilly APRN.DEALERSHIP MANAGER Work Phone: Internal Medicine [place] Comment on above: Acute bilateral low back pain without sciatica (Primary Dx); Age-related osteoporosis without current pathological fracture; Gastroesophageal reflux disease without esophagitis; Crohn's disease of large intestine without complication (HCC); Acquired hypothyroidism; Depression, unspecified depression type; Anxiety; Encounter for screening mammogram for breast cancer Start: 09-03-2023 End: 09-03-2023 Subsequent hospital visit by physician Cate [facility] [place] Work Phone: Radiology Comment on above: Fall from bed, initi al encounter [W06.XXXA] Start: 08-29-2023 Telephone encounter Thea dubon MD Work Phone: [facility] Comment on above: Surgery Scheduling Start: 08-29-2023 End: 08-29-2023 ambulatory [facility] Start: 08-29-2023 End: 08-29-2023 Office outpatient visit 25 minutes Thea Vail MD Work Phone: [facility] Comment on above: Rupture of flexor po llicis longus muscle; Retained orthopedic hardware Start: 08-26-2023 End: 08-27-2023 ambulatory [facility] Start: 08-26-2023 End: 08-26-2023 Subsequent hospital visit by physician [facility] Mr Exam Room [facility] Comment on above: Mass of finger of ri ght hand; Rupture of flexor pollicis longus muscle Start: 08-12-2023 End: 08-12-2023 ambulatory [facility] Start: 08-12-2023 End: 08-12-2023 Office outpatient new 30 minutes Thea Vail MD Work Phone: [facility] Comment on above: Mass of finger of ri ght hand; Rupture of flexor pollicis longus muscle Start: 08-07-2023 Orders Only Long Back aislinn RING Work Phone: [facility] Comment on above: Right hand pain (Loretta deyanira Dx) Start: 08-02-2023 Telephone encounter Malachi tao APRN.CNP Work Phone: Internal Medicine [place] Comment on above: Results Start: 07-31-2023 End: 07-31-2023 Patient encounter procedure Malachi Lilly APRN.DEALERSHIP MANAGER Work Phone: Internal Medicine [place] Comment on above: Urinary tract infect ion without hematuria, site unspecified (Primary Dx) Start: 06-21-2023 End: 06-21-2023 Office outpatient visit 25 minutes Chance Kolb MD Work Phone: Internal Medicine [place] Comment on above: Acquired hypothyroid ism (Primary Dx); Numbness and tingling in right hand; Raynaud's disease without gangrene; Gastroesophageal reflux disease without esophagitis; Vitamin D deficiency; Hypercholesteremia; Crohn's disease of large intestine without complication (HCC); Encounter for long-term current use of medication Start: 05-06-2023 End: 05-06-2023 Patient encounter procedure Malachi Lilly APRN.DEALERSHIP MANAGER Work Phone: Internal Medicine [place] Comment on above: Abrasion (Primary Dx ); Visit for suture removal Start: 04-29-2023 End: 04-29-2023 [facility]: Start: 03-27-2023 Documentation procedure Mammog nohemy Coordinator [facility] Start: 03-27-2023 Letter encounter Mammography Coordinator [facility] Department Start: 03-26-2023 End: 03-26-2023 Patient encounter procedure Malachi Lilly APRN.DEALERSHIP MANAGER Work Phone: Internal Medicine [place] Comment on above: Nodule of finger of right hand (Primary Dx); Thumb joint locking; Other headache syndrome; Gastroesophageal reflux disease without esophagitis; Raynaud's disease without gangrene Start: 03-25-2023 End: 03-25-2023 Patient encounter procedure Essie Man APRN.DEALERSHIP MANAGER Work Phone: OB/Gynecology Comment on above: Encounter for screen ing mammogram for breast cancer (Primary Dx) Start: 03-25-2023 End: 03-25-2023 Subsequent hospital visit by physician Screen Mammo [facility] Mammogram Comment on above: Encounter for screen ing mammogram for breast cancer [Z12.31] Start: 12-03-2022 Telephone encounter Chance hurtado MD Work Phone: Internal Medicine [place] Comment on above: Results Start: 11-24-2022 Refill Chance dubon MD Work Phone: Internal Medicine [place] Comment on above: Refill Request; Refi ll Request Start: 11-20-2022 Refill Chance dubon MD Work Phone: Internal Medicine [place] Comment on above: Refill Request Pain medication Start: 11-19-2022 Telephone encounter Chance hurtado MD Work Phone: Internal Medicine [place] Comment on above: xray result Start: 11-16-2022 End: 11-16-2022 Subsequent hospital visit by physician Xr [facility] [place] Work Phone: Radiology Comment on above: Rib pain on right si de [R07.81] Start: 11-16-2022 End: 11-16-2022 Office outpatient visit 25 minutes Chance Kolb MD Work Phone: Internal Medicine [place] Comment on above: Acquired hypothyroid ism (Primary Dx); Hypercholesteremia; Rib pain on right side; Chronic right shoulder pain; Vitamin D deficiency; Long-term current use of mesalamine; Encounter for long-term current use of medication Start: 10-17-2022 Refill Chance dubon MD Work Phone: Internal Medicine [place] Comment on above: Refill Request Start: 10-03-2022 Telephone encounter Chance hurtado MD Work Phone: Internal Medicine [place] Comment on above: snf Plan of Care (continued) Start: 10-01-2022 Telephone encounter Chance hurtado MD Work Phone: Internal Medicine [place] Comment on above: Home Health Update Start: 09-28-2022 Telephone encounter Chance hurtado MD Work Phone: Internal Medicine [place] Comment on above: Patient Question Start: 09-25-2022 Telephone encounter Chance hurtado MD Work Phone: Internal Medicine [place] Comment on above: Skillled Nursing Penny luation Start: 09-18-2022 Telephone encounter Malachi Thibodeaux aislinn FITNESS COACH.DEALERSHIP MANAGER Work Phone: Internal Medicine [place] Comment on above: Results Start: 09-14-2022 Telephone encounter Chance hurtado MD Work Phone: Internal Medicine [place] Comment on above: Social Work Eval Ord er home health calling Patient Question Start: 09-12-2022 Telephone encounter Chance hurtado MD Work Phone: Internal Medicine [place] Comment on above: PT Update OT Update Start: 09-08-2022 Non-patient / Non-visit Dr. Sonali Kolb Work Phone: [facility] In[facility] Physicians Start: 09-07-2022 Non-patient / Non-visit Dr. Sonali Kolb Work Phone: [facility] Start: 09-07-2022 Telephone encounter Chance hurtado MD Work Phone: Internal Medicine [place] Comment on above: Follow for [facility] Start: 09-07-2022 Non-patient / Non-visit Dr. Sonali Kolb Work Phone: [facility] Start: 09-06-2022 End: 09-08-2022 Evaluation and management of inpatient [facility]-Pro[facility] Care Unit Start: 09-01-2022 End: 09-02-2022 Emergency department patient visit [facility]-Emergency Department Start: 08-07-2022 End: 08-07-2022 Subsequent hospital visit by physician Xr [facility] Work Phone: Radiology Comment on above: Acute cough [R05.1] Start: 05-31-2022 Telephone encounter Chance hurtado MD Work Phone: Internal Medicine [place] Comment on above: Results Start: 05-27-2022 End: 05-27-2022 Emergency department patient visit [facility]-Emergency Department Start: 05-15-2022 Telephone encounter Chance hurtado MD Work Phone: Internal Medicine [place] Comment on above: Results Start: 04-11-2022 End: 04-11-2022 Subsequent hospital visit by physician Bone Density [facility] Work Phone: Radiology Comment on above: Age-related osteopor osis without current pathological fracture [M81.0] Start: 04-02-2022 Telephone encounter Chance hurtado MD Work Phone: Internal Medicine [place] Comment on above: Results Start: 03-30-2022 End: 03-30-2022 Subsequent hospital visit by physician Xr [facility] [place] Work Phone: Radiology Comment on above: Chronic cough [R05.3 ] Start: 03-30-2022 End: 03-30-2022 Office outpatient visit 25 minutes Chance Kolb MD Work Phone: Internal Medicine [place] Comment on above: Acquired hypothyroid ism (Primary Dx); Hypokalemia; Raynaud's disease without gangrene; Hypercholesteremia; Crohn's disease of large intestine without complication (HCC); Encounter for long-term current use of medication; Age-related osteoporosis without current pathological fracture; Vitamin D deficiency; High vitamin D level; Fatigue, unspecified type; Chronic cough; Urinary frequency; Gastroesophageal reflux disease without esophagitis Start: 03-20-2022 End: 03-20-2022 Subsequent hospital visit by physician Screen Mammo [facility] Mammogram Comment on above: Encounter for screen ing mammogram for breast cancer [Z12.31] Start: 03-20-2022 End: 03-20-2022 Patient encounter procedure Essie Man APRN.DEALERSHIP MANAGER Work Phone: OB/Gynecology Comment on above: Encounter for gyneco logical examination (general) (routine) without abnormal findings (Primary Dx); Encounter for screening mammogram for breast cancer; Age-related osteoporosis without current pathological fracture Start: 03-20-2022 End: 03-20-2022 Patient encounter status Essie Man APRN.DEALERSHIP MANAGER Work Phone: OB/Gynecology Start: 02-01-2022 End: 02-01-2022 Patient encounter procedure Bailey Johnson APRN.DEALERSHIP MANAGER Work Phone: [place] [facility] Comment on above: Exposure to COVID-19 virus (Primary Dx) Start: 01-29-2022 End: 01-29-2022 Patient encounter procedure [facility] Work Phone: [place] [facility] Comment on above: APPOINTMENT CANCELLE D (Primary Dx); Contact with and (suspected) exposure to covid-19 Start: 12-29-2021 End: 12-29-2021 Patient encounter procedure Jersey Stern DO Work Phone: Family Medicine [place] Comment on above: Closed nondisplaced fracture of neck of fifth metacarpal bone of left hand with routine healing, subsequent encounter (Primary Dx) Start: 12-29-2021 End: 12-29-2021 Subsequent hospital visit by physician Cate [facility] [place] Rai Work Phone: Radiology Comment on above: Closed nondisplaced fracture of neck of fifth metacarpal bone of left hand, initial encounter [S62.367A] Start: 12-27-2021 Orders Only Jersey Worthington O Work Phone: Orthopaedics Comment on above: Closed nondisplaced fracture of neck of fifth metacarpal bone of left hand, initial encounter (Primary Dx) Start: 11-25-2021 End: 11-25-2021 Subsequent hospital visit by physician Cate [facility] [place] Work Phone: Radiology Comment on above: Fall, initial encoun ter [W19.XXXA] Start: 10-17-2021 End: 10-17-2021 Patient encounter procedure Chance Kolb MD Work Phone: Internal Medicine [place] Comment on above: Acquired hypothyroid ism (Primary Dx); Shoulder pain, unspecified chronicity, unspecified laterality; Left knee pain, unspecified chronicity; Hypokalemia; Numbness of right hand Procedures Date Procedure Procedure Detail Performing Clinician Start: 03-18-2025 Plain X-ray of femur Dr Jacob Kolb MD Work Phone: Start: 03-18-2025 CT of lumbar spine Dr. Chance Kolb MD Work Phone: Start: 03-18-2025 Plain radiography of pelvis Dr. Chance Kolb MD Work Phone: Start: 12-17-2024 Lipid 1995 panel - S hair or Plasma Chance Kolb MD Work Phone: Start: 08-17-2024 BD DXA TRABECULAR ERNA NE SCORE (TBS) Chance Kolb MD Work Phone: Start: 08-17-2024 Dxa bone density miguel dy 1/> sites axial skel Chance Kolb MD Work Phone: Start: 07-25-2024 Urnls dip stick/tabl et rgnt auto w/o microscopy Claudia Agosto PA Work Phone: Start: 12-31-2023 Radex spine lumbosac ral 2/3 views Malachi Vijaya FITNESS COACH.DEALERSHIP MANAGER Work Phone: Start: 12-27-2023 Thyrotropin [Units/volume] in Serum or Plasma Thea Vail MD Work Phone: Start: 09-03-2023 Radex ribs uni w/posteroant ch minimum 3 views Talya Howell FITNESS COACH.DEALERSHIP MANAGER Work Phone: Start: 08-29-2023 Follow-up visit Follow-up THEA TRAORE Start: 07-31-2023 Urnls dip stick/tabl et rgnt auto w/o microscopy Malachi Vijaya FITNESS COACH.DEALERSHIP MANAGER Work Phone: Start: 03-25-2023 End: 03-25-2023 Mammography Essie Donovan FITNESS COACH.C LENS GR[employer]ER ROUGH Work Phone: Start: 11-16-2022 Radex ribs uni w/posteroant ch minimum 3 views Chance Kolb MD Work Phone: Start: 11-16-2022 Lipid 1996 panel - S hair or Plasma Screen Wstr Start: 09-07-2022 CT angiography of he ad and neck Dr. Chance Kolb Work Phone: Start: 09-07-2022 MRI of brain without contrast Dr. Chance Kolb Work Phone: Start: 09-06-2022 CT of head without contrast Start: 09-01-2022 CT of head without contrast Start: 08-07-2022 Radiologic exam ches t 2 views Kelsi Morgan FITNESS COACH.DEALERSHIP MANAGER Work Phone: Start: 04-11-2022 Dxa bone density miguel dy 1/> sites axial skel Essie Man FITNESS COACH.DEALERSHIP MANAGER Work Phone: Start: 03-30-2022 Radiologic exam ches t 2 views Chance Kolb MD Work Phone: Start: 03-20-2022 End: 03-20-2022 Mammography Bulk Order Provider Start: 12-29-2021 Radex hand minimum 3 views Jersey Stern DO Work Phone: Start: 11-25-2021 Radex hand minimum 3 views Azucena Khan FITNESS COACH.DEALERSHIP MANAGER Work Phone: Start: 07-01-2020 Mammography Jersey Maurice is V, DO Work Phone: Start: 02-08-2020 Colonoscopy Jersey Richards is V, DO Work Phone: H/O: surgery History of surge ry on wrist Dr. Chance Kolb MD Work Phone: H/O: surgery History of surge ry on wrist Dr. Cedric Gibbons MD H/O: surgery History of surge ry on wrist Dr. Cedric Gibbons MD H/O: surgery History of surge ry on wrist Dr. Cedric Gibbons MD H/O: surgery History of surge ry on wrist Dr. Cedric Gibbons MD H/O: surgery History of surge ry on wrist Dr. Cedric Gibbons MD H/O: surgery History of surge ry on wrist Dr. Cedric Gibbons MD H/O: surgery History of surge ry on wrist Dr. Cedric Gibbons MD History of cataract extraction History of cataract surgery Dr. Chance Kolb MD Work Phone: History of cataract extraction History of cataract surgery Dr. Cedric Gibbons MD History of cataract extraction History of cataract surgery Dr. Cedric Gibbons MD History of cataract extraction History of cataract surgery Dr. Cedric Gibbons MD History of cataract extraction History of cataract surgery Dr. Cedric Gibbons MD History of cataract extraction History of cataract surgery Dr. Cedric Gibbons MD History of cataract extraction History of cataract surgery Dr. Cedric Gibbons MD History of cataract extraction History of cataract surgery Dr. Cedric Gibbons MD Urine culture Dr. Chance swan Work Phone: Viral antigen assay Plan of Treatment Date Care Activity Detail Author Start: 01-01-2035 Urine microalbumin profile DTaP,Tdap,Td Vaccine (4 - Td or Tdap) [facility] Start: 04-29-2033 DTaP/Tdap/Td Vaccines (3 - Td or Tdap) DTaP/Tdap/Td Vaccines (3 - Td or Tdap) [facility] Start: 04-29-2033 Urine microalbumin profile [facility] Start: 05-21-2031 Urine microalbumin profile DTAP,TDAP,TD (2 - Td or Tdap) [facility] Start: 12-17-2029 Lipid panel Lipid Screening [facility] Start: 04-29-2028 Diabetes Screening Diabetes Screening [facility] Start: 12-18-2027 Diabetes Screening Diabetes Screening [facility] Start: 11-17-2027 Lipid 1996 panel - Serum or Plasma Lipid Screening [facility] Start: 11-17-2027 Lipid panel Lipid Screening [facility] Start: 11-17-2027 LIPID SCREEN LIPID SCREEN [facility] Start: 12-26-2026 Diabetes Screening Diabetes Screening [facility] Start: 08-17-2026 Screening for osteoporosis Bone Density Screening [facility] Start: 05-10-2026 End: 05-10-2026 Patient encounter procedure 05/10/2026 9:00 AM EDT Office Visit [facility] [place] [address] [place] [address] Nguyễn Stringer APRN.LEAD BURNER SUPERVISOR [address] [place] [address] Medicare Wellness [facility] Comment on above: Medicare Wellness Start: 05-04-2026 Annual PCP Team Chronic Disease Visit Annual PCP Team Chronic Disease Visit [facility] Start: 05-04-2026 Medicare Annual Wellness Visit Medicare Annual Wellness Visit [facility] Start: 02-24-2026 LIPID SCREEN LIPID SCREEN [facility] Start: 01-29-2026 Annual PCP Team Chronic Disease Visit Annual PCP Team Chronic Disease Visit [facility] Start: 11-16-2025 DIABETES SCREEN DIABETES SCREEN [facility] Start: 11-16-2025 Diabetes Screening Diabetes Screening [facility] Start: 11-10-2025 End: 11-10-2025 Patient encounter procedure 11/10/2025 11:00 AM EST Office Visit Internal Medicine [facility] [address] [address] Chance Kolb MD [address] [place] [address] 6 month f/u [facility] Comment on above: 6 month f/u Start: 11-04-2025 End: 02-03-2026 25-hydroxyvitamin D3 [Mass/volume] in Serum or Plasma VITAMIN D 25 HYDROXY Lab Routine Medicare annual wellness visit, subsequent Osteoporosis, unspecified osteoporosis type, unspecified pathological fracture presence Crohn's disease without complication, unspecified gastrointestinal tract location (HCC) Expected: 11/04/2025 (Approximate), Expires: 02/03/2026 [facility] Comment on above: Expected: 11/04/2025 (Approximate), Expi res: 02/03/2026 Start: 11-04-2025 End: 02-03-2026 CBC W Auto Differential panel - Blood COMPLETE BLOOD COUNT AND DIFFERENTIAL Lab Routine Medicare annual wellness visit, subsequent Crohn's disease without complication, unspecified gastrointestinal tract location (HCC) Expected: 11/04/2025 (Approximate), Expires: 02/03/2026 [facility] Comment on above: Expected: 11/04/2025 (Approximate), Expi res: 02/03/2026 Start: 11-04-2025 End: 02-03-2026 Comprehensive metabolic 2000 panel - Serum or Plasma COMPREHENSIVE METABOLIC PANEL Lab Routine Medicare annual wellness visit, subsequent Crohn's disease without complication, unspecified gastrointestinal tract location (HCC) Expected: 11/04/2025 (Approximate), Expires: 02/03/2026 [facility] Comment on above: Expected: 11/04/2025 (Approximate), Expi res: 02/03/2026 Start: 11-04-2025 End: 02-03-2026 Hemoglobin A1c in Blood HEMOGLOBIN A1C Lab Routine Medicare annual wellness visit, subsequent Crohn's disease without complication, unspecified gastrointestinal tract location (HCC) Other abnormal glucose Expected: 11/04/2025 (Approximate), Expires: 02/03/2026 [facility] Comment on above: Expected: 11/04/2025 (Approximate), Expi res: 02/03/2026 Start: 09-09-2025 Screening for malignant neoplasm of colon Colorectal Cancer Screening [facility] Comment on above: Postponed from 1994 (Postponed To Appropriate Date) Start: 06-24-2025 Annual PCP Team Chronic Disease Visit Annual PCP Team Chronic Disease Visit [facility] Start: 06-21-2025 End: 06-21-2025 Patient encounter procedure 06/21/2025 1:00 PM EDT Office Visit Endocrinology [address] [place] [id number] Mirtha Ledesma MD [address] [facility] [place] [address] Osteoporosis, unspecified osteoporosis type, unspecified pathological fracture presence [M81.0] Endocrinology Comment on above: Osteoporosis, unspecified osteoporosis t ype, unspecified pathological fracture presence [M81.0] Start: 05-13-2025 End: 05-13-2025 Patient encounter procedure 05/13/2025 2:50 PM EDT Appointment Mammogram [address] [place] [address] Encounter for screening mammogram for malignant neoplasm of breast [Z12.31] Mammogram Comment on above: Encounter for screening mammogram for ma lignant neoplasm of breast [Z12.31] Start: 05-10-2025 Influenza vaccination Influenza Vaccine (#1) [facility] Dennis alas Start: 05-04-2025 End: 05-04-2025 Patient encounter procedure 05/04/2025 3:20 PM EDT Office Visit Internal [facility] [place] [address] [facility] [address] [place], [place] [id number] Chance Kolb MD [address] [place] [address] 3 mo f/u [facility] [place] Comment on above: 3 mo f/u Start: 03-30-2025 DIABETES SCREEN DIABETES SCREEN [facility] Start: 03-27-2025 Screening for malignant neoplasm of breast Mammogram Screening [facility] Start: 03-22-2025 End: 06-21-2025 25-hydroxyvitamin D3 [Mass/volume] in Serum or Plasma VITAMIN D 25 HYDROXY Lab Routine Compression fracture of L4 vertebra with routine healing, subsequent encounter Age-related osteoporosis without current pathological fracture Expected: 03/22/2025, Expires: 06/21/2025 [facility] Work Phone: Comment on above: Expected: 03/22/2025, Expires: Start: 03-18-2025 [facility] Start: 03-13-2025 [facility] Start: 03-13-2025 Smpl repair scalp/neck/ax/genit/trun k 2.6-7.5cm RPR S/N/AX/GEN/TRNK2.6-7.5CM [facility] Start: 02-07-2025 Screening for malignant neoplasm of colon [facility] Start: 01-01-2025 [facility] Start: 01-01-2025 Simple rpr scalp/neck/ax/genit/trun k 7.6-12.5cm RPR S/N/AX/GEN/TRK7.6-12.5CM [facility] Start: 12-30-2024 Annual PCP Team Chronic Disease Visit Annual PCP Team Chronic Disease Visit [facility] Start: 12-26-2024 Thyroid stimulating hormone measurement TSH Level [facility] Start: 12-25-2024 End: 12-25-2024 Patient encounter procedure 12/25/2024 11:00 AM EDT Office Visit Internal Medicine [place] [address] [place] [id number] Malachi Lilly APRN.DEALERSHIP MANAGER [address] [place], [place] [phone] 6 month follow up [facility] [place] Comment on above: 6 month follow up Start: 11-22-2024 End: 02-21-2025 25-hydroxyvitamin D3 [Mass/volume] in Serum or Plasma VITAMIN D 25 HYDROXY Lab Routine Age-related osteoporosis without current pathological fracture Vitamin D deficiency Encounter for long-term current use of medication Expected: 11/22/2024 (Approximate), Expires: 02/21/2025 [facility] Comment on above: Expected: 11/22/2024 (Approximate), Expi res: 02/21/2025 Start: 11-22-2024 End: 02-21-2025 CBC panel - Blood by Automated count COMPLETE BLOOD COUNT Lab Routine Age-related osteoporosis without current pathological fracture Encounter for long-term current use of medication Expected: 11/22/2024 (Approximate), Expires: 02/21/2025 [facility] Comment on above: Expected: 11/22/2024 (Approximate), Expi res: 02/21/2025 Start: 11-22-2024 End: 02-21-2025 Comprehensive metabolic 2000 panel - Serum or Plasma COMPREHENSIVE METABOLIC PANEL Lab Routine Age-related osteoporosis without current pathological fracture Encounter for long-term current use of medication Expected: 11/22/2024 (Approximate), Expires: 02/21/2025 [facility] Comment on above: Expected: 11/22/2024 (Approximate), Expi res: 02/21/2025 Start: 11-22-2024 End: 02-21-2025 Lipid 1996 panel - Serum or Plasma LIPID PANEL BASIC Lab Routine Age-related osteoporosis without current pathological fracture Hypercholesteremia Encounter for long-term current use of medication Expected: 11/22/2024 (Approximate), Expires: 02/21/2025 [facility] Comment on above: Expected: 11/22/2024 (Approximate), Expi res: 02/21/2025 Start: 11-22-2024 End: 02-21-2025 Magnesium [Mass/volume] in Serum or Plasma MAGNESIUM Lab Routine Age-related osteoporosis without current pathological fracture Encounter for long-term current use of medication Expected: 11/22/2024 (Approximate), Expires: 02/21/2025 [facility] Comment on above: Expected: 11/22/2024 (Approximate), Expi res: 02/21/2025 Start: 11-22-2024 End: 02-21-2025 Thyrotropin [Units/volume] in Serum or Plasma THYROID STIMULATING HORMONE Lab Routine Age-related osteoporosis without current pathological fracture Acquired hypothyroidism Encounter for long-term current use of medication Expected: 11/22/2024 (Approximate), Expires: 02/21/2025 [facility] Comment on above: Expected: 11/22/2024 (Approximate), Expi res: 02/21/2025 Start: 11-22-2024 End: 02-21-2025 Thyroxine (T4) free [Mass/volume] in Serum or Plasma T4 FREE/FREE THYROXINE Lab Routine Age-related osteoporosis without current pathological fracture Acquired hypothyroidism Encounter for long-term current use of medication Expected: 11/22/2024 (Approximate), Expires: 02/21/2025 [facility] Comment on above: Expected: 11/22/2024 (Approximate), Expi res: 02/21/2025 Start: 11-22-2024 End: 02-21-2025 Triiodothyronine (T3) Free [Mass/volume] in Serum or Plasma T3, FREE Lab Routine Age-related osteoporosis without current pathological fracture Acquired hypothyroidism Encounter for long-term current use of medication Expected: 11/22/2024 (Approximate), Expires: 02/21/2025 [facility] Comment on above: Expected: 11/22/2024 (Approximate), Expi res: 02/21/2025 Start: 2024 RSV Vaccine (1 - 1-dose 75+ series) RSV Vaccine (1 - 1-dose 75+ series) [facility] Start: 09-20-2024 DIABETES SCREEN DIABETES SCREEN [facility] Start: 09-09-2024 Advance Directive Discussion Advance Directive Discussion [facility] Start: 09-04-2024 End: 09-04-2024 ambulatory 09/04/2024 12:30 PM EST OT/PT/Speech Visit [facility] [place] [address] [place] [address] Bailey Madrigal, PT R26.81 (ICD-10-CM) - Gait instability [facility] Comment on above: R26.81 (ICD-10-CM) - Gait instability Start: 08-28-2024 End: 08-28-2024 ambulatory 08/28/2024 12:30 PM EST OT/PT/Speech Visit [facility] [address] [place] [address] Bailey Madrigal PT R26.81 (ICD-10-CM) - Gait instability [facility] Comment on above: R26.81 (ICD-10-CM) - Gait instability Start: 08-26-2024 End: 11-25-2024 Urinalysis complete panel - Urine URINALYSIS WITH MICROSCOPIC, REFLEX CULTURE Lab Routine Urinary tract infection with hematuria, site unspecified Expected: 08/26/2024 (Approximate), Expires: 11/25/2024 [facility] Work Phone: Comment on above: Expected: 08/26/2024 (Approximate), Expi res: 11/25/2024 Start: 08-21-2024 End: 08-21-2024 ambulatory 08/21/2024 12:30 PM EST OT/PT/Speech Visit [facility] [address] [place] [address] Bailey Madrigal, PT R26.81 (ICD-10-CM) - Gait instability [facility] Comment on above: R26.81 (ICD-10-CM) - Gait instability Start: 08-17-2024 End: 08-17-2024 Patient encounter procedure 08/17/2024 11:15 AM EST Appointment Radiology [address] [place] [id number] Asymptomatic postmenopausal status [Z78.0] Radiology Comment on above: Asymptomatic postmenopausal status [Z78. 0] Start: 08-14-2024 End: 08-14-2024 ambulatory 08/14/2024 12:30 PM EST OT/PT/Speech Visit [facility] [address] [place] [address] Bailey Madrigal PT R26.81 (ICD-10-CM) - Gait instability [facility] Comment on above: R26.81 (ICD-10-CM) - Gait instability Start: 08-07-2024 End: 08-07-2024 ambulatory 08/07/2024 12:30 PM EST OT/PT/Speech Visit [facility] [address] [place] [address] Bailey Madrigal, PT R26.81 (ICD-10-CM) - Gait instability [facility] Comment on above: R26.81 (ICD-10-CM) - Gait instability Start: 07-31-2024 Annual PCP Team Chronic Disease Visit Annual PCP Team Chronic Disease Visit [facility] Start: 07-27-2024 End: 07-27-2024 ambulatory 07/27/2024 3:30 PM EST OT/PT/Speech Visit [facility] [address] [place] [address] Bailey Madrigal, PT R26.81 (ICD-10-CM) - Gait instability [facility] Comment on above: R26.81 (ICD-10-CM) - Gait instability Start: 07-27-2024 End: 07-27-2024 Patient encounter procedure 07/27/2024 12:20 PM EST Office Visit [facility] [place] [address] [place] [address] Nguyễn Stringer APRN.LEAD BURNER SUPERVISOR [address] [place] [address] express care follow up/uti [facility] [place] Comment on above: express care follow up/uti Start: 06-24-2024 End: 06-24-2024 Patient encounter procedure 06/24/2024 3:00 PM EDT Office Visit [facility] [place] [address] [facility] [address] Chance Kolb MD [address] [place] [address] 6 month follow up [facility] Comment on above: 6 month follow up Start: 06-21-2024 Annual PCP Team Chronic Disease Visit Annual PCP Team Chronic Disease Visit [facility] Start: 05-10-2024 Covid-19 Vaccine ( season) Covid-19 Vaccine ( season) [facility] Start: 05-10-2024 Covid-19 Vaccine ( season) Covid-19 Vaccine () [facility] Start: 05-10-2024 Influenza vaccination Influenza Vaccine (#1) [facility] Start: 05-06-2024 ANNUAL PCP TEAM CHRONIC DISEASE VISIT ANNUAL PCP TEAM CHRONIC DISEASE VISIT [facility] Start: 04-11-2024 Screening for osteoporosis Bone Density Screening [facility] Start: 03-27-2024 End: 03-27-2024 Patient encounter procedure 03/27/2024 10:50 AM EDT Appointment [facility] [address] [facility] [place], [place] [address] Encounter for screening mammogram for breast cancer [Z12.31] Mammogram Comment on above: Encounter for screening mammogram for br east cancer [Z12.31] Start: 03-26-2024 ANNUAL PCP TEAM CHRONIC DISEASE VISIT ANNUAL PCP TEAM CHRONIC DISEASE VISIT [facility] Start: 03-25-2024 Mammography [facility] Start: 03-25-2024 Screening for malignant neoplasm of breast Mammogram Screening [facility] Start: 01-09-2024 End: 01-09-2024 Patient encounter procedure 01/09/2024 10:30 AM EDT Office Visit [facility] [address] [place] [address] [place] [phone] Thea Vail MD [address] [facility] [address] [place] [address] [facility] Start: 11-17-2023 ANNUAL PCP TEAM CHRONIC DISEASE VISIT ANNUAL PCP TEAM CHRONIC DISEASE VISIT [facility] Start: 08-29-2023 End: 08-29-2023 Patient encounter procedure 08/29/2023 10:15 AM EST Office Visit [facility] [address] [place] [address] [place] [phone] Thea Vail MD [address] [facility] [address] [place], [place] [phone] [facility] Start: 08-12-2023 End: 08-12-2023 Patient encounter procedure 08/12/2023 2:15 PM EST Office Visit [facility] [address] [facility] [address] [place] [phone] Thea Vail MD [address] [facility] [address] [place] [address] [facility] Start: 08-12-2023 End: 08-12-2024 MR Hand - right WO contrast MR hand right wo IV contrast Imaging Routine Mass of finger of right hand Rupture of flexor pollicis longus muscle Expected: 08/12/2023, Expires: 08[facility]12[facility]24 [facility]: Comment on above: Expected: 08/12/2023, Expires: 4 Start: 08-12-2023 End: 08-12-2024 MR Wrist - right WO contrast MR wrist right wo IV contrast Imaging Routine Mass of finger of right hand Rupture of flexor pollicis longus muscle Expected: 08/12/2023, Expires: 08/12/2024 [facility] [employer] Comment on above: Expected: 08/12/2023, Expires: 4 Start: 08-07-2023 End: 08-07-2024 XR Hand - right 3 Views XR hand 3+ views right Imaging Routine Right hand pain Expected: 08/07/2023, Expires: 08/07/2024 [facility] Work Phone: Comment on above: Expected: 08/07/2023, Expires: 4 Start: 05-10-2023 Covid-19 Vaccine ( season) Covid-19 Vaccine ( season) [facility] Start: 05-10-2023 Influenza vaccination INFLUENZA (#1) [facility] Start: 03-30-2023 ANNUAL PCP TEAM CHRONIC DISEASE VISIT ANNUAL PCP TEAM CHRONIC DISEASE VISIT [facility] Start: 03-20-2023 Mammography MAMMOGRAM [facility] Start: 02-07-2023 Colonoscopy COLONOSCOPY [facility] Start: 02-07-2023 COLORECTAL CANCER SCREENING COLORECTAL CANCER SCREENING [facility] Start: 02-07-2023 Screening for malignant neoplasm of colon [facility] Start: 10-17-2022 ANNUAL PCP TEAM CHRONIC DISEASE VISIT ANNUAL PCP TEAM CHRONIC DISEASE VISIT [facility] Start: 10-17-2022 SHINGRIX VACCINE (2 of 3) SHINGRIX VACCINE (2 of 3) [facility] Comment on above: Postponed from 06/19/2016 (Declined at t his time) Start: 10-17-2022 Urine microalbumin profile DTAP,TDAP,TD (1 - Tdap) [facility] Comment on above: Postponed from 04/27/2016 (Declined at t his time) Start: 09-29-2022 End: 11-29-2022 Urinalysis complete panel - Urine URINALYSIS, WITH MICROSCOPIC Lab Routine Acute cystitis with hematuria Expected: 09/29/2022, Expires: 11/29/2022 [facility] Work Phone: Comment on above: Expected: 09/29/2022, Expires: 3 Start: 09-15-2022 End: 11-15-2022 Urinalysis complete panel - Urine URINALYSIS, WITH MICROSCOPIC Lab Routine Urinary tract infection without hematuria, site unspecified Expected: 09/15/2022, Expires: 11/15/2022 [facility] Work Phone: Comment on above: Expected: 09/15/2022, Expires: 3 Start: 09-09-2022 ADVANCE DIRECTIVE DISCUSSION ADVANCE DIRECTIVE DISCUSSION [facility] Start: 09-08-2022 Patient discharge [facility] Work Phone: Start: 09-07-2022 Referral to service [facility] Work Phone: Start: 09-07-2022 Following clinical pathway protocol [facility] Work Phone: Start: 09-07-2022 Aspiration precautions [facility] Work Phone: Start: 09-07-2022 Assessment of risk of venous thromboembolism [facility] Work Phone: Start: 09-07-2022 Cardiac monitoring [facility] Work Phone: Start: 09-07-2022 Catheterization of vein [facility] Work Phone: Start: 09-07-2022 Continuous pulse oximetry [facility] Work Phone: Start: 09-07-2022 Elevation of head of bed [facility] Work Phone: Start: 09-07-2022 Exercises [facility] Work Phone: Start: 09-07-2022 Fall prevention [facility] Work Phone: Start: 09-07-2022 Implementation of planned interventions [facility] Work Phone: Start: 09-07-2022 Inhalation therapy procedure [facility] Work Phone: Start: 09-07-2022 Insertion of catheter into peripheral vein [facility] Work Phone: Start: 09-07-2022 Introduction of urinary catheter [facility] Work Phone: Start: 09-07-2022 Notification of physician [facility] Work Phone: Start: 09-07-2022 Oxygen therapy [facility] Work Phone: Start: 09-07-2022 End: 09-07-2022 Patient referral to dietitian [facility] Work Phone: Start: 09-07-2022 Providing care according to standard [facility] Work Phone: Start: 09-07-2022 Provision of activity privileges [facility] Work Phone: Start: 09-07-2022 Referral to occupational therapist [facility] Work Phone: Start: 09-07-2022 Referral to service [facility] Work Phone: Start: 09-07-2022 Speech therapy assessment [facility] Work Phone: Start: 09-07-2022 Tobacco use cessation education [facility] Work Phone: Start: 09-07-2022 [facility] Work Phone: Start: 09-06-2022 Verification routine [facility] Work Phone: Start: 09-06-2022 Admission procedure [facility] Work Phone: Start: 09-06-2022 [facility] Work Phone: Start: 09-01-2022 Suicide precautions [facility] Work Phone: Start: 05-10-2022 Influenza vaccination INFLUENZA (#1) [facility] Start: 02-01-2022 End: 02-11-2022 SARS-CoV-2 (COVID-19) RNA [Presence] in Respiratory specimen by FABRIZIO with probe detection ASYMPTOMATIC ELECTIVE COVID-19 Microbiology Routine Exposure to COVID-19 virus Expected: 02/01/2022, Expires: 02/11/2022 [facility] Work Phone: Comment on above: Expected: 02/01/2022, Expires: 2 Start: 09-09-2021 ADVANCE DIRECTIVE DISCUSSION ADVANCE DIRECTIVE DISCUSSION [facility] Start: 07-01-2021 Mammography MAMMOGRAM [facility] Start: 05-11-2021 COVID-19 VACCINE (3 - Booster for Pfizer series) COVID-19 VACCINE (3 - Booster for Pfizer series) [facility] Start: 02-03-2021 COVID-19 VACCINE (3 - Booster for Pfizer series) COVID-19 VACCINE (3 - Booster for Pfizer series) [facility] Start: 02-03-2021 COVID-19 VACCINE (3 - Pfizer series) COVID-19 VACCINE (3 - Pfizer series) [facility] Start: 01-07-2017 Medicare Annual Wellness Visit Medicare Annual Wellness Visit [facility] Start: 06-19-2016 SHINGRIX VACCINE (2 of 3) SHINGRIX VACCINE (2 of 3) [facility] Start: 06-19-2016 [facility] Vaccines (2 of 3) Zoster Vaccines (2 of 3) [facility] Start: 05-22-2016 MMR (1 of 2 - Risk 2-dose series) MMR (1 of 2 - Risk 2-dose series) [facility] Start: 05-22-2016 MMR Vaccine (1 of 2 - Risk 2-dose series) MMR Vaccine (1 of 2 - Risk 2-dose series) [facility] Start: 04-27-2016 Urine microalbumin profile DTAP,TDAP,TD (1 - Tdap) [facility] Start: 2009 HEPATITIS B (1 of 3 - Risk 3-dose series) HEPATITIS B (1 of 3 - Risk 3-dose series) [facility] Start: 2009 Hepatitis B Vaccine (1 of 3 - Risk 3-dose series) Hepatitis B Vaccine (1 of 3 - Risk 3-dose series) [facility] Start: 2009 RSV Immunization aged 60 or older (1 - 1-dose 60+ series) RSV Immunization aged 60 or older (1 - 1-dose 60+ series) [facility] Start: 2009 RSV Vaccine (1 - 1-dose 60+ series) RSV Vaccine (1 - 1-dose 60+ series) [facility] Start: 1994 COLOGUARD (FIT-DNA) COLOGUARD (FIT-DNA) [facility] Start: [address] COLONOGRAPHY [facility] Start: 1994 FECAL OCCULT BLOOD FECAL OCCULT BLOOD [facility] Start: 1994 Screening for malignant neoplasm of colon [facility] Start: 1994 SIGMOIDOSCOPY SIGMOIDOSCOPY [facility] Start: 1989 Screening for malignant neoplasm of breast Mammogram [facility] Start: 1968 HEPATITIS A (1 of 2 - Risk 2-dose series) HEPATITIS A (1 of 2 - Risk 2-dose series) [facility] Start: 1968 Hepatitis A Vaccine (1 of 2 - Risk 2-dose series) Hepatitis A Vaccine (1 of 2 - Risk 2-dose series) [facility] Start: 1968 HEPATITIS B (1 of 3 - Risk 3-dose series) HEPATITIS B (1 of 3 - Risk 3-dose series) [facility] Start: 1967 Hepatitis C screening Hepatitis C Screening [facility] Start: 1961 Depression Monitoring Depression Monitoring [facility] Start: 1961 Depression Screening Depression Screening [facility] Start: 1959 Meningococcal B Vaccine: Consider Based On Risk (1 of 4 - Increased Risk) Meningococcal B Vaccine: Consider Based On Risk (1 of 4 - Increased Risk) [facility] Start: 1959 MENINGOCOCCAL B: Consider based on risk (1 of 4 - Increased Risk Bexsero 2-dose series) MENINGOCOCCAL B: Consider based on risk (1 of 4 - Increased Risk Bexsero 2-dose series) [facility] Start: 1959 MENINGOCOCCAL B: Consider based on risk (1 of 4 - Increased Risk) MENINGOCOCCAL B: Consider based on risk (1 of 4 - Increased Risk) [facility] Start: 1950 HEPATITIS A (1 of 2 - Risk 2-dose series) HEPATITIS A (1 of 2 - Risk 2-dose series) [facility] Start: 1949 Medicare Annual Wellness (AWV) Medicare Annual Wellness (AWV) [facility] Start: 1949 Screening for malignant neoplasm of colon [facility] Start: 1949 Screening for osteoporosis Bone Density Scan [facility] Start: 1949 Thyroid stimulating hormone measurement TSH Level [facility] End: 06-20-2024 25-hydroxyvitamin D3 [Mass/volume] in Serum or Plasma VITAMIN D 25 HYDROXY Lab Routine Encounter for long-term current use of medication Vitamin D deficiency Every 3 months for 4 Occurrences starting 06/21/2023 until 06/20/2024 [facility] Work Phone: Comment on above: Every 3 months for 4 Occurrences startin g 06/21/2023 until 06/20/2024 Bacteria identified in Urine by Culture Urine Culture [facility] Work Phone: Bacteria identified in Urine by Culture URINE CULTURE Microbiology Routine Acute cystitis with hematuria Ordered: 09/28/2022 [facility] Work Phone: Comment on above: Ordered: 09/28/2022 Bacteria identified in Urine by Culture URINE CULTURE Microbiology Routine Urinary tract infection without hematuria, site unspecified 07/31/2023 3:24 PM EST [facility] Work Phone: Bacteria identified in Urine by Culture [facility] Work Phone: Comment on above: Ordered: 07/25/2024 End: 07-24-2025 BD DXA TRABECULAR BONE SCORE (TBS) BD DXA TRABECULAR BONE SCORE (TBS) Radiology Routine Asymptomatic postmenopausal status 1 Occurrences starting 06/24/2024 until 07/24/2025 [facility] Comment on above: 1 Occurrences starting 06/24/2024 until 07/24/2025 End: 06-20-2024 CBC panel - Blood by Automated count CBC Lab Routine Encounter for long-term current use of medication Every 3 months for 4 Occurrences starting 06/21/2023 until 06/20/2024 [facility] Work Phone: Comment on above: Every 3 months for 4 Occurrences startin g 06/21/2023 until 06/20/2024 End: 06-20-2024 Comprehensive metabolic 2000 panel - Serum or Plasma COMP METABOLIC PANEL Lab Routine Encounter for long-term current use of medication Every 3 months for 4 Occurrences starting 06/21/2023 until 06/20/2024 [facility] Work Phone: Comment on above: Every 3 months for 4 Occurrences startin g 06/21/2023 until 06/20/2024 End: 06-03-2026 DBT Breast - bilateral screening OZIEL SCREENING W GABRIEL Radiology Routine Encounter for screening mammogram for malignant neoplasm of breast 1 Occurrences starting 05/04/2025 until 06/03/2026 [facility] Work Phone: Comment on above: 1 Occurrences starting 05/04/2025 until 06/03/2026 End: 04-19-2023 Dxa bone density study 1/> sites axial skel DXA-AXIAL SKELETON Radiology Routine Age-related osteoporosis without current pathological fracture 1 Occurrences starting 03/20/2022 until 04/19/2023 [facility] Work Phone: Comment on above: 1 Occurrences starting 03/20/2022 until 04/19/2023 End: 07-24-2025 DXA Skeletal system.axial Views for bone density DXA-AXIAL SKELETON Radiology Routine Asymptomatic postmenopausal status 1 Occurrences starting 06/24/2024 until 07/24/2025 [facility] Work Phone: Comment on above: 1 Occurrences starting 06/24/2024 until 07/24/2025 End: 06-20-2024 Magnesium [Mass/volume] in Serum or Plasma MAGNESIUM BLD Lab Routine Encounter for long-term current use of medication Every 3 months for 4 Occurrences starting 06/21/2023 until 06/20/2024 [facility] Work Phone: Comment on above: Every 3 months for 4 Occurrences startin g 06/21/2023 until 06/20/2024 End: 04-23-2024 OZIEL SCREENING OZIEL SCREENING Radiology Routine Encounter for screening mammogram for breast cancer 1 Occurrences starting 03/25/2023 until 04/23/2024 [facility] Work Phone: Comment on above: 1 Occurrences starting 03/25/2023 until 04/23/2024 End: 01-29-2025 MG Breast Screening OZIEL SCREENING Radiology Routine Encounter for screening mammogram for breast cancer 1 Occurrences starting 12/31/2023 until 01/29/2025 [facility] Comment on above: 1 Occurrences starting 12/31/2023 until 01/29/2025 MG Breast Screening OZIEL SCREENIN G Radiology Routine Encounter for screening mammogram for breast cancer 03/27/2024 10:26 AM EDT [facility] Work Phone: End: 05-24-2025 MG Breast Screening [facility] Work Phone: Comment on above: ONCE for 1 Occurrences starting 05/24/20 until 05/24/2025 End: 08-26-2023 [facility] Work Phone: Comment on above: Once for 1 Occurrences starting 08/26/20 until 08/26/2023 End: 08-26-2023 MR Wrist - right WO [facility] Work Phone: Comment on above: Once for 1 Occurrences starting 08/26/20 until 08/26/2023 OUTSIDE PROCEDURE SCAN OUTSIDE P ROCEDURE SCAN Procedures Ordered: 08/23/2023 [facility] [employer] [facility] Comment on above: Ordered: 08/23/2023 Patient Education [facility] Work Phone: Patient referral [facility] Work Phone: End: 04-19-2023 Screening mammography bi 2-view breast inc cad OZIEL SCREENING Radiology Routine Encounter for screening mammogram for breast cancer 1 Occurrences starting 03/20/2022 until 04/19/2023 [facility] Work Phone: Comment on above: 1 Occurrences starting 03/20/2022 until 04/19/2023 End: 06-20-2024 Thyrotropin [Units/volume] in Serum or Plasma TSH BLD Lab Routine Acquired hypothyroidism Encounter for long-term current use of medication Every 3 months for 4 Occurrences starting 06/21/2023 until 06/20/2024 [facility] Work Phone: Comment on above: Every 3 months for 4 Occurrences startin g 06/21/2023 until 06/20/2024 End: 06-20-2024 Thyroxine (T4) free [Mass/volume] in Serum or Plasma T4 FREE/FREE THYROX Lab Routine Acquired hypothyroidism Encounter for long-term current use of medication Every 3 months for 4 Occurrences starting 06/21/2023 until 06/20/2024 [facility] Work Phone: Comment on above: Every 3 months for 4 Occurrences startin g 06/21/2023 until 06/20/2024 End: 06-20-2024 Triiodothyronine (T3) Free [Mass/volume] in Serum or Plasma T3 FREE BLD Lab Routine Acquired hypothyroidism Encounter for long-term current use of medication Every 3 months for 4 Occurrences starting 06/21/2023 until 06/20/2024 [facility] Work Phone: Comment on above: Every 3 months for 4 Occurrences startin g 06/21/2023 until 06/20/2024 UA DIP B/O UA DIP B/O Lab R outine Urinary tract infection without hematuria, site unspecified Ordered: 07/31/2023 [facility] Work Phone: Comment on above: Ordered: 07/31/2023 End: 01-26-2023 XR HAND GENERAL 3V PA/LAT/OBL LEFT [facility] Work Phone: Comment on above: 1 Occurrences starting 12/27/2021 until 01/26/2023 XR HAND GENERAL 3V PA/LAT/OBL LEFT XR HAND GENERAL 3V PA/LAT/OBL LEFT Radiology Routine Closed nondisplaced fracture of neck of fifth metacarpal bone of left hand, initial encounter 12/29/2021 1:15 PM EDT [facility] Work Phone: End: 01-29-2025 XR Lumbar spine 3 Views XR LUMBAR GENERAL 3V AP/LAT/L5-S1 Radiology Routine Acute bilateral low back pain without sciatica 1 Occurrences starting 12/31/2023 until 01/29/2025 [facility] Work Phone: Comment on above: 1 Occurrences starting 12/31/2023 until 01/29/2025 XR Lumbar spine 3 Views XR LUMBA R GENERAL 3V AP/LAT/L5-S1 Radiology Routine Acute bilateral low back pain without sciatica 12/31/2023 3:32 PM EDT [facility] Immunizations Immunization Date Immunization Notes Care Provider Fa umm 01-01-2025 tetanus toxoid, redu dory diphtheria toxoid, and acellular pertussis vaccine, adsorbed Dr. Chance Kolb MD Work Phone: [facility] 06-24-2024 influenza, high dose seasonal, preservative-free Bailey Mahmood'Edison PT [facility] 06-24-2024 influenza virus vacc ine, unspecified formulation Nguyễn Stringer FITNESS COACH.LEAD BURNER SUPERVISOR Work Phone: [facility] 06-18-2023 influenza, high dose seasonal, preservative-free Chance Kolb MD Work Phone: [facility] Work Phone: 06-18-2023 influenza virus vacc ine, unspecified formulation Screen Wstr [facility] 06-06-2023 influenza (HD-IIV4) vaccine, age 65+ yr, high dose, quadrivalent, PF (FLUZONE HIGH-DOSE) Malachi Lilly FITNESS COACH.DEALERSHIP MANAGER Work Phone: [facility] 04-29-2023 tetanus toxoid, redu dory diphtheria toxoid, and acellular pertussis vaccine, adsorbed [facility] 05-30-2022 influenza (aIIV4) vaccine, age 65+ yr, quadrivalent, PF (FLUAD QUAD) Chance Kolb MD Work Phone: [facility] 06-01-2021 influenza (aIIV4) vaccine, age 65+ yr, quadrivalent, PF (FLUAD QUAD) Chance Kolb MD Work Phone: [facility] 06-01-2021 influenza, high dose seasonal, preservative-free Jersey Stern V, DO Work Phone: [facility] Work Phone: 05-21-2021 tetanus toxoid, redu dory diphtheria toxoid, and acellular pertussis vaccine, adsorbed [facility] 12-09-2020 COVID-19 vaccine, ag e 12+ yr (PFIZER-BIONTECH - PURPLE TOP) Jersey Stern V, DO Work Phone: [facility] Work Phone: 11-17-2020 COVID-19 vaccine, ag e 12+ yr (Eat-BIONTECH - PURPLE TOP) Jersey Stern V, DO Work Phone: [facility] Work Phone: 06-10-2020 influenza (aIIV4) vaccine, age 65+ yr, quadrivalent, PF (FLUAD QUAD) Chance Kolb MD Work Phone: [facility] 06-10-2020 influenza, seasonal, injectable Jersey Stern V, DO Work Phone: [facility] 05-21-2019 Seasonal trivalent influenza vaccine, adjuvanted, preservative free Jersey Stern V, DO Work Phone: [facility] 05-18-2018 pneumococcal conjuga te vaccine, 13 valent Jersey Stern V, DO Work Phone: [facility] 05-18-2018 Seasonal trivalent influenza vaccine, adjuvanted, preservative free Jersey Stern V, DO Work Phone: [facility] 06-17-2017 influenza, high dose seasonal, preservative-free Jersey Stern V, DO Work Phone: [facility] 06-11-2016 influenza, high dose seasonal, preservative-free Jersey Stern V, DO Work Phone: [facility] 06-09-2016 influenza (HD-IIV4) vaccine, age 65+ yr, high dose, quadrivalent, PF (FLUZONE HIGH-DOSE) Chance Kolb MD Work Phone: [facility] 04-26-2016 TD(adult) unspecifie d formulation Thea Vail MD Work Phone: [facility] 04-26-2016 tetanus and diphther ia toxoids, adsorbed, preservative free, for adult use (2 Lf of tetanus toxoid and 2 Lf of diphtheria toxoid) Jersey Stern V, DO Work Phone: [facility] 04-24-2016 pneumococcal polysaccharide vaccine, 23 valent Jersey Stern V, DO Work Phone: [facility] 04-24-2016 zoster vaccine, live Jersey Stern V, DO Work Phone: [facility] 04-16-2016 TD(adult) unspecifie d formulation Chance Kolb MD Work Phone: [facility] 10-24-2015 pneumococcal conjuga te vaccine, 13 valent Jersey Stern V, DO Work Phone: [facility] 06-30-2014 influenza virus vacc ine, unspecified formulation Jersey Stern V, DO Work Phone: [facility] 06-10-2013 influenza virus vacc ine, unspecified formulation Jersey Stern V, DO Work Phone: [facility] Work Phone: 08-01-2010 pneumococcal polysaccharide vaccine, 23 valent Jersey Stern V, DO Work Phone: [facility] 06-28-2010 influenza virus vacc ine, unspecified formulation Jersey Jarred V, DO Work Phone: [facility] Work Phone: 07-14-2007 influenza virus vacc ine, unspecified formulation Jersey Stern V, DO Work Phone: [facility] Work Phone: 02-12-2007 tetanus and diphther ia toxoids, adsorbed, preservative free, for adult use (2 Lf of tetanus toxoid and 2 Lf of diphtheria toxoid) Jersey Stern V, DO Work Phone: [facility] 07-24-2006 influenza virus vacc ine, unspecified formulation Jerseyzachariah Stern V, DO Work Phone: [facility] 07-17-2005 influenza virus vacc ine, unspecified formulation Jersey Jarred Spears, DO Work Phone: [facility] Work Phone: Payers Date Payer Category Payer Self-pay [id number] 2017 Medicare MEDICARE MEDICAR E A AND B [id number] 2017-Present [phone] [address] [address] [place] [address] Medicare [id number] 2017 Medicare [id number] 2017 Private Health Insurance [employer]NA MEDICARE SUPPLEMENT [id number] 2017-Present [phone] [address] [address] [place] [address] Indemnity [id number] 2017 Private Health Insurance [id number] 2017 Medicare [id number] 2017 Private Health Insurance [facility] [id number] 2014 Unknown [facility] [id number] Unknown [id number] Unknown [id number] Unknown [id number] Unknown [id number] Unknown [id number] Unknown [id number] Unknown [id number] Unknown [id number] Unknown [id number] Unknown [id number] Unknown [id number] Social History Date Type Detail Facility Start: 07-10-2011 End: 03-18-2025 Tobacco smoking status [facility] Never smoked tobacco [facility] Start: 12-01-2021 End: 01-29-2025 Alcohol intake Current non-drinker of alcohol (finding) [facility] Start: 07-01-2020 History SDOH Physica l Activity DPW 0 [facility] Start: 07-01-2020 History SDOH Stress 1 [facility] Start: 07-01-2020 History SDOH Financial 5 [facility] Start: 07-01-2020 History SDOH Transpo rt Med 2 [facility] Start: 07-01-2020 Education 21 [facility] Start: 1950 Sex Assigned At Female C [facility] Start: 11-15-2021 End: 03-30-2022 Exposure to SARS-CoV-2 (event) Not sure [facility] Start: 01-19-2022 End: 01-29-2022 Exposure to SARS-CoV-2 (event) Yes [facility] Work Phone: Start: 07-10-2011 End: 08-07-2022 Tobacco use and exposure Smokeless tobacco non-user [facility] Work Phone: Start: 05-27-2022 End: 04-29-2023 Tobacco smoking status NHIS Unknown if ever smoked [facility] Start: 12-08-2015 None [facility] Start: 12-08-2015 Spouse/ Signif icant Other [facility] Start: 09-30-2016 Non-smoker [facility] Start: 11-16-2022 End: 03-25-2023 History of Social function [facility] Work Phone: Start: 11-16-2022 End: 03-25-2023 Tobacco use panel [facility] Work Phone: Start: 08-10-2012 How hard is it for y ou to pay for the very basics like food, housing, medical care, and heating Not hard at all [facility] Work Phone: Do you feel stress - tense, restless, nervous, or anxious, or unable to sleep at night because your mind is troubled all the time - these days [OSQ] Not at all [facility] Work Phone: (I/We) worried wheth er (my/our) food would run out before (I/we) got money to buy more. Never true [facility] Work Phone: Start: 04-29-2020 Gender identity Identifies as female gender (finding) [facility] Start: 04-29-2020 Sexual orientation Heterosexual (hpilip ortiz) [facility] Start: 05-04-2025 Alcoholic beverage intake Lifetime non-drinker (finding) [facility] How often to you hav e a drink containing alcohol? Never [facility] Goals Date Patient Goal Desired Activity /State Functional Status Date Assessment Result Facility 05-04-2025 Total score [AUDIT-C] 0 05/04/20 25 2:43 PM EDT Beth Linda LPN [facility] 09-08-2022 Functional status Activity Abili ty Standby Assist [facility] Work Phone: 09-07-2022 Functional status Patient Activi ty Ambulates [facility] Work Phone: 09-07-2022 Functional status Assistive Ana jaymie Rolling Walker [facility] Work Phone: 01-06-2015 Are you deaf, or do you have serious difficulty hearing No 01/06/2015 9:19 AM PBT Homa Kirkland LPN No [facility] 01-06-2015 Are you blind, or do you have serious difficulty seeing, even when wearing glasses No 01/06/2015 9:19 AM PBT Homa Kirkland LPN No [facility] 01-06-2015 Do you have serious difficulty walking or climbing stairs No 01/06/2015 9:19 AM EDT Homa Kirkland LPN No [facility] 01-06-2015 Do you have difficul ty dressing or bathing No 01/06/2015 9:19 AM Homa Golden LPN No [facility] 01-06-2015 Because of a physica l, mental, or emotional condition, do you have difficulty doing errands alone such as visiting a physician's office or shopping Yes 01/06/2015 9:19 AM Homa Golden LPN Yes [facility] Mental Status Date Assessment Result Facility 09-08-2022 Cognitive function Voice/Name [facility] Work Phone: 09-06-2022 Cognitive function Level Of Cons ciousness Awake;Alert;Appropriate;Fol lows Commands [facility] Work Phone: 01-06-2015 Because of a physica l, mental, or emotional condition, do you have serious difficulty concentrating, remembering, or making decisions No 01/06/2015 9:19 AM Homa Golden LPN No [facility] Clinical Notes 10-17-2021 to 05-26-2025 Note Date & Type Note Facility 05-26-2025 History and physi taty note Note Date/Time May 26, 2025 1:55pm [facility] [address] [place] [address] H&P Exam - Wound Care 05/26/25 [id number] MR#: [id number] Acct: [id number] Name: GERALDINE HAIRSTON Rep #:[id number] : 1950 74 From: Cedric Worthington PCP: Dr. Chance Kolb MD Status:RE G RCR Location: History of Present Illness Date of Service: 05/25/25 Chief Complaint: Traumatic avulsion injury of the right medial calf History of Wound: This is a 74-year-old female who sustained a traumatic injury to her left medial calf on January 01, 2025. At the time of her injury, she presented to the [facility] Emergency Department, where she was found to have an avulsion injury with a significant adherent cutaneous flap. The injury was caused by the nails of her dog, who had jumped off the couch. Inthe Emergency Department, the flap was sutured in place using seven 5-0 nylon sutures. The patient was placed on Keflex and Augmentin orally, and was discharged. The patient is generally healthy for her age, though has a history of akbx-midz-mazebhavujxaflm, GERD, hypertension, hypothyroidism, and osteoporosis. She denies a history of diabetes mellitus, myocardial infarction,cerebrovascular accident, renal disease, and pulmonary disease. Her BMI is 19.5. She is . Since the patient's initial presentation, the traumatic injury on her left calf has healed, and she has sustained a similar injury to the right medial calf, for which she remained a patient at the Wound Center. 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 left calf with fat layer exposed Traumatic open wound of lower leg Avulsion injury GERD (gastroesophageal reflux disease) HTN (hypertension) Hypothyroidism Depression Anxiety Home Medications ?Medication ?Instructions ?Recorded ?Last Taken ?Type levothyroxine 25 mcg tablet 25 mcg PO DAILY Check with primary 02/07/15 09/29/16 09:00 History doctor Bacillus coagulans-inulin 1 1 ea PO DAILY Check with p skye 12/07/15 09/29/16 09:00 History billion cell-250 mg capsule doctor (Probiotic Formula (inulin)) gabapentin 100 mg capsule 600 mg PO BID Check with loretta mcmillan 12/07/15 09/29/16 21:00 History doctor nifedipine 60 mg tablet,extended 180 mg PO DAILY Check with primary 12/07/15 09/29/16 09:00 History release 24 hr doctor pantoprazole 20 mg tablet,delayed 20 mg PO DAILY [facility] 12/07/15 09/29/16 09:00 History release paroxetine HCl 25 mg 75 mg PO DAILY depression 09/29/16 09:00 History tablet,extended release 24 hr (Paxil CR) aspirin 325 mg tablet,delayed 325 mg PO DAILY HEART 09/29/16 09:00 History release buspirone 5 mg tablet 30 mg PO BID Check with prim lesley 04/26/16 09/29/16 21:00 History doctor budesonide 3 mg 9 mg PO DAILY Check with loretta mcmillan 09/30/16 Unknown History capsule,delayed,extended release doctor (Entocort EC) lorazepam 0.5 mg tablet 0.5 mg PO Q6H PRN PRN Anxiet y ##10 10/03/16 Unknown Rx dicyclomine 20 mg tablet 20 mg PO TID Check with prim lesley 09/02/22 Unknown History doctor Metamucil Check with primary doctor Unknown History food supplemt, lactose-reduced 120 ml PO 4X/DAY Check with 09/07/22 Unknown History 0.08 gram-1.5 kcal/mL oral liquid primary doctor (Ensure Enlive) loperamide 2 mg tablet 2 mg PO Q6H PRN Constipation 09/07/22 Unknown History omeprazole 40 mg PO/SL DAILY Check with 09/07/22 Unknown History primary doctor atorvastatin 80 mg tablet 20 mg (1/4 x 80 mg) PO QHS # 30 tabs 09/08/22 Unknown Rx cyclobenzaprine 5 mg tablet 5 mg PO TID PRN muscle spa sm #14 03/18/25 Unknown Rx tabs ondansetron 4 mg disintegrating 4 mg PO Q6H PRN nausea and 03/18/25 Unknown Rx tablet vomiting #20 tabs oxycodone-acetaminophen 5 mg-325 1 tab PO Q6H PRN pain 2 days #8 03/18/25 Unknown Rx mg tablet (Endocet) tabs Allergy/AdvReac Type Severity Reaction Status Date / Time acetaminophen (From Percocet) Allergy Other Verified 03/13/25 19:15 oxycodone (From Percocet) Allergy Other Verified 03/13/25 19:15 codeine AdvReac Nausea & Verified 03/13/25 19:15 dizziness oxycodone HCl (From Percocet) AdvReac Nausea & Verified 03/13/25 19:15 dizziness Family History Father Diabetes Dementia Surgical History S/P ORIF (open reduction internal fixation) fracture History of surgery on wrist History of cataract surgery History of ankle surgery Social History household members: none Smoking Status: Never smoker substance use type: does not use Physical Exam Const alert, oriented x3, no apparent distress, average body habitus and no limitations Constitutional Narrative: The patient's BMI is 19.5. She is thin and petite. General Appearance: cooperative, comfortable, well kempt and well developed Orientation / Consciousness: awake, oriented to person, oriented to place and oriented to time Exam Limitations: no limitations HEENT normocephalic and head/scalp atraumatic Head and Scalp: normal to inspection, normocephalic and atraumatic Face and Sinus: normal facial exam Nose: external nose normal External Ear: external ears normal Eyes EOMs intact bilaterally General Eye: normal appearance of both eyes Neck full ROM Resp normal respiratory effort, normal air movement, no retractions and no use of accessory muscles Effort and Inspection: able to speak in complete sentences Extremity General Extremity: Negative for clubbing or cyanosis Skin Wound Narrative: The traumatic wound on the patient's right lower extremity is now completely healed and epithelialized. There is no sign of infection or cellulitis. No significant swelling or edema are noted in the lower extremities. Neuro oriented x3, CN's II-XII intact bilaterally, moves all extremities, no focal motor deficits and no sensory deficits noted Sensorium / Orientation: awake, alert, oriented to person, oriented to place andoriented to time Speech: speech normal Psych Appearance: grossly normal and appropriate Attitude: calm Activity / Motor Behavior: appropriate eye contact Speech: normal speech Mood & Affect: euthymic mood Thought Process: normal thought process Thought Content: normal thought content Attention / Concentration: attention grossly intact Debridement Note Debridement Note No debridement was completed: No debridement was completed today Post-Debridement Measurements and Additional Note: Post-Debridement Measurements/Treatment - Nurse 1 - General Ulcer Assessment Start: 05/25/25 13:09 Freq: Status: Active Protocol: NATHALIE Activity Type Activity Date Activity User E-sign Co-sign Detail Recorded Client Recorded Date Recorded By Document 05/25/25 13:09 RUSS [id number] 05/25/25 13:12 05/25/25 13:09 DANTE - Today's Visit Information Type of service Follow-up Visit (Physician/DEALERSHIP MANAGER ) Arrival Mode Ambulatory,Cane Patient Identification Verified (Name & Yes ) Vital Signs Temperature (97.8 F-99.1 F) 97.0 F L Temperature Source Temporal Pulse Rate (60-100) 89 Pulse Location Monitor Respiratory Rate (12-18) 18 Respiratory rate source Observation Oxygen Delivery Method Room Air Blood Pressure (90/60-120/80) 120/61 Blood Pressure Mean 80 Source Monitor Position Semi-Fowlers Blood Pressure Location Right Arm History Since Last Visit- (Skip if this is Patient's initial visit) Have you changed medications since your No last visit? Any new allergies or adverse reactions No Had a fall/change in ADL's that may No increase risk of falls Signs or symptoms of abuse and/or No neglect since last visit Have you been in the hospital since your No last visit? Has dressing in place as prescribed Yes Has compression in place as prescribed No Has offloadiing in place as prescribed N/A Experienced any changes in pain level or No management Left Footwear Regular Shoe Right Footwear Regular Shoe Pain Scale: 0-10 Numeric Is Patient Pain Free? Yes [facility] Nurse 1 - General Ulcer Measurement Start: 05/25/25 13:09 Freq: Status: Active Protocol: Activity Type Activity Date Activity User E-sign Co-sign Detail Recorded Client Recorded Date Recorded By Document 05/25/25 13:09 KW [id number] 05/25/25 13:12 KW 05/25/25 13:09 Wound Center Nurse 1 #2- R LAT LEG- DOG SCRATCH -Current Size (cm) - Length 0 -Current Size (cm) - Width 0 -Current Size (cm) - Depth 0 -Total Square Cm 0 -Date of Last Picture (Recall this 05/25/25 field) -Epithelialization Large 67-100% -Exudate Amt None Present -Granulation Amt None Present (0 %) -Texture (Maylin-wound Skin Appearance) Assessed -Moisture (Maylin-wound Skin Appearance) Assessed -Color (Maylin-wound Skin Appearance) Assessed -Temperature (Maylin-wound Skin No Abnormality Appearance) (Pt Warm) -Tenderness on Palpation (Maylin-wound No Skin Appearance) -Ulcer Cleansing Rinsed/ Irrigated with Saline -Foul Odor after Cleansing No -Wound Comment(s) possibly healed - Nurse 2 - General Ulcer CM Notes Start: 05/25/25 13:09 Freq: Status: Active Protocol: Activity Type Activity Date Activity User E-sign Co-sign Detail Recorded Client Recorded Date Recorded By Document 05/25/25 13:16 [id number] 05/25/25 13:17 DS 05/25/25 13:16 Wound Center Nurse 2 -Time 13:16 -Correct Patient Yes -Correct Side, Site, Position Yes -Procedure Performed No -Wound/Ulcer Outcome Healed- Epithelialized Pain Scale: 0-10 Numeric Is Patient Pain Free? Yes - Nurse 3 - General Ulcer D/C NN Start: 05/25/25 13:09 Freq: Status: Active Protocol: Activity Type Activity Date Activity User E-sign Co-sign Detail Recorded Client Recorded Date Recorded By Document 05/25/25 13:17 DS [id number] 05/25/25 13:17 DS 05/25/25 13:17 Wound Care Center Nurse 3 #2- R LAT LEG- DOG SCRATCH -Wound Comment(s) pt healed - pt d/c Pain Scale: 0-10 Numeric Is Patient Pain Free? Yes - Visit Discharge Discharge Condition Stable Ambulatory Status Ambulatory,Cane Transportation Private Auto Charges/Coding Visit Charges Office Visits / Consults: 23706 OV L3 Est 20min Assessment/Plan Assessment/Plan (1) Non-pressure chronic ulcer of right calf with fat layer exposed: CODE(S): L97.212 - Non-pressure chronic ulcer of right calf with fat layerexposed (2) Traumatic open wound of lower leg: CODE(S): S81.809A - Unspecified open wound, unspecified lower leg, initialencounter QUALIFIERS: Encounter type: subsequent encounter Laterality: right Qualified Code(s): S81.801D - Unspecified open wound, right lower leg, subsequent encounter (3) S/P ORIF (open reduction internal fixation) fracture: CODE(S): Z96.7 - Presence of other bone and tendon implants; Z87.81 - Personal history of (healed) traumatic fracture (4) S/P ORIF (open reduction internal fixation) fracture: CODE(S): Z98.890 - Other specified postprocedural states; Z87.81 - Personal history of (healed) traumatic fracture (5) History of surgery on wrist: CODE(S): Z98.890 - Other specified postprocedural states (6) History of cataract surgery: CODE(S): Z98.49 - Cataract extraction status, unspecified eye (7) History of ankle surgery: CODE(S): Z98.890 - Other specified postprocedural states (8) Hypothyroidism: CODE(S): E03.9 - Hypothyroidism, unspecified QUALIFIERS: Hypothyroidism type: acquired Qualified Code(s): E03.9 - Hypothyroidism, unspecified (9) Raynaud phenomenon: CODE(S): I73.00 - Raynaud's syndrome without gangrene QUALIFIERS: Raynaud?s-associated gangrene presence: without gangrene Qualified Code(s): I73.00 - Raynaud's syndrome without gangrene (10) Osteoporosis: CODE(S): M81.0 - Age-related osteoporosis without current pathological fracture (11) Jxwb-jmeg-egvqvnnfmnnltvq: CODE(S): E78.6 - Lipoprotein deficiency PLAN: Plan This is a 74-year-old female who has recently been treated for traumatic wounds on both lower extremities. However, as of this clinic visit, all wounds are nowcompletely healed and epithelialized. Therefore, the patient is to be discharged, and she will follow-up henceforth on an as needed basis. Total time: 20 minutes 05/26/25 3921 <Electronically signed by Cedric Gibbons MD> Cosigner Signature (if applicable): CC: ~ Signed [facility] Work Phone: 1([phone] 795-871309-17-2025 History and physical note [facility] [address] [place] [address] H&P Exam - Wound Care 05/26/25 1349 MR#: [id number] Acct: [id number] Name: GERALDINE HAIRSTON Rep #:[id number] : 1950 74 From: Cedric Worthington PCP: Dr. Chance Kolb MD Status:RE G RCR Location: History of Present Illness Date of Service: 05/25/25 Chief Complaint: Traumatic avulsion injury of the right medial calf History of Wound: This is a 74-year-old female who sustained a traumatic injury to her left medial calf on January 01, 2025. At the time of her injury, she presented to the [facility] Emergency Department, where she was found to have an avulsion injury with a significant adherent cutaneous flap. The injury was caused by the nails of her dog, who had jumped off the couch. Inthe Emergency Department, the flap was sutured in place using seven 5-0 nylon sutures. The patient was placedon Keflex and Augmentin orally, and was discharged. The patient is generally healthy for her age, though has a history of fogf-zmox-xflctxtixlfbpln, GERD, hypertension, hypothyroidism, and osteoporosis. She denies a history of diabetes mellitus, myocardial infarction,cerebrovascular accident, renaldisease, and pulmonary disease. Her BMI is 19.5. She is . Since the patient's initial presentation, the traumatic injury on her left calf has healed, and she has sustained a similar injury to the right medial calf, for which she remained a patient at the Wound Center. 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 left calf with fat layer exposed Traumatic open wound of lower leg Avulsion injury GERD (gastroesophageal reflux disease) HTN (hypertension) Hypothyroidism Depression Anxiety Home Medications ?Medication ?Instructions ?Recorded ?Last Taken ?Type levothyroxine 25 mcg tablet 25 mcg PO DAILY Check with primary 02/07/15 09/29/16 09:00 History doctor Bacillus coagulans-inulin 1 1 ea PO DAILY Check with p skye 12/07/15 09/29/16 09:00 History billion cell-250 mg capsule doctor (Probiotic Formula (inulin)) gabapentin 100 mg capsule 600 mg PO BID Check with loretta mcmillan 12/07/15 09/29/16 21:00 History doctor nifedipine 60 mg tablet,extended 180 mg PO DAILY Check with primary 12/07/15 09/29/16 09:00 History release 24 hr doctor pantoprazole 20 mg tablet,delayed 20 mg PO DAILY [facility] 12/07/15 09/29/16 09:00 History release paroxetine HCl 25 mg 75 mg PO DAILY depression 09/29/16 09:00 History tablet,extended release 24 hr (Paxil CR) aspirin 325 mg tablet,delayed 325 mg PO DAILY HEART 09/29/16 09:00 History release buspirone 5 mg tablet 30 mg PO BID Check with prim lesley 04/26/16 09/29/16 21:00 History doctor budesonide 3 mg 9 mg PO DAILY Check with loretta mcmillan 09/30/16 Unknown History capsule,delayed,extended release doctor (Entocort EC) lorazepam 0.5 mg tablet 0.5 mg PO Q6H PRN PRN Anxiet y ##10 10/03/16 Unknown Rx dicyclomine 20 mg tablet 20 mg PO TID Check with prim lesley 09/02/22 Unknown History doctor Metamucil Check with primary doctor Unknown History food supplemt, lactose-reduced 120 ml PO 4X/DAY Check with 09/07/22 Unknown History 0.08 gram-1.5 kcal/mL oral liquid primary doctor (Ensure Enlive) loperamide 2 mg tablet 2 mg PO Q6H PRN Constipation 09/07/22 Unknown History omeprazole 40 mg PO/SL DAILY Check with 09/07/22 Unknown History primary doctor atorvastatin 80 mg tablet 20 mg (1/4 x 80 mg) PO QHS # 30 tabs 09/08/22 Unknown Rx cyclobenzaprine 5 mg tablet 5 mg PO TID PRN muscle spa sm #14 03/18/25 Unknown Rx tabs ondansetron 4 mg disintegrating 4 mg PO Q6H PRN nausea and 03/18/25 Unknown Rx tablet vomiting #20 tabs oxycodone-acetaminophen 5 mg-325 1 tab PO Q6H PRN pain 2 days #8 03/18/25 Unknown Rx mg tablet (Endocet) tabs Allergy/AdvReac Type Severity Reaction Status Date / Time acetaminophen (From Percocet) Allergy Other Verified 03/13/25 19:15 oxycodone (From Percocet) Allergy Other Verified 03/13/25 19:15 codeine AdvReac Nausea & Verified 03/13/25 19:15 dizziness oxycodone HCl (From Percocet) AdvReac Nausea & Verified 03/13/25 19:15 dizziness Family History Father Diabetes Dementia Surgical History S/P ORIF (open reduction internal fixation) fracture History of surgery on wrist History of cataract surgery History of ankle surgery Social History household members: none Smoking Status: Never smoker substance use type: does not use Physical Exam Const alert, oriented x3, no apparent distress, average body habitus and no limitations Constitutional Narrative: The patient's BMI is 19.5. She is thin and petite. General Appearance: cooperative, comfortable, well kempt and well developed Orientation / Consciousness: awake, oriented to person, oriented to place and oriented to time Exam Limitations: no limitations HEENT normocephalic and head/scalp atraumatic Head and Scalp: normal to inspection, normocephalic and atraumatic Face and Sinus: normal facial exam Nose: external nose normal External Ear: external ears normal Eyes EOMs intact bilaterally General Eye: normal appearance of both eyes Neck full ROM Resp normal respiratory effort, normal air movement, no retractions and no use of accessory muscles Effort and Inspection: able to speak in complete sentences Extremity General Extremity: Negative for clubbing or cyanosis Skin Wound Narrative: The traumatic wound on the patient's right lower extremity is now completely healed and epithelialized. There is no sign of infection or cellulitis. No significant swelling or edema are noted in the lower extremities. Neuro oriented x3, CN's II-XII intact bilaterally, moves all extremities, no focal motor deficits and no sensory deficits noted Sensorium / Orientation: awake, alert, oriented to person, oriented to place andoriented to time Speech: speech normal Psych Appearance: grossly normal and appropriate Attitude: calm Activity / Motor Behavior: appropriate eye contact Speech: normal speech Mood & Affect: euthymic mood Thought Process: normal thought process Thought Content: normal thought content Attention / Concentration: attention grossly intact Debridement Note Debridement Note No debridement was completed: No debridement was completed today Post-Debridement Measurements and Additional Note: Post-Debridement Measurements/Treatment - Nurse 1 - General Ulcer Assessment Start: 05/25/25 13:09 Freq: Status: Active Protocol: NATHALIE Activity Type Activity Date Activity User E-sign Co-sign Detail Recorded Client Recorded Date Recorded By Document 05/25/25 13:09 RUSS [id number] 05/25/25 13:12 05/25/25 13:09 DANTE - Today's Visit Information Type of service Follow-up Visit (Physician/DEALERSHIP MANAGER ) Arrival Mode Ambulatory,Cane Patient Identification Verified (Name & Yes ) Vital Signs Temperature (97.8 F-99.1 F) 97.0 F L Temperature Source Temporal Pulse Rate (60-100) 89 Pulse Location Monitor Respiratory Rate (12-18) 18 Respiratory rate source Observation Oxygen Delivery Method Room Air Blood Pressure (90/60-120/80) 120/61 Blood Pressure Mean 80 Source Monitor Position Semi-Fowlers Blood Pressure Location Right Arm History Since Last Visit- (Skip if this is Patient's initial visit) Have you changed medications since your No last visit? Any new allergies or adverse reactions No Had a fall/change in ADL's that may No increase risk of falls Signs or symptoms of abuse and/or No neglect since last visit Have you been in the hospital since your No last visit? Has dressing in place as prescribed Yes Has compression in place as prescribed No Has offloadiing in place as prescribed N/A Experienced any changes in pain level or No management Left Footwear Regular Shoe Right Footwear Regular Shoe Pain Scale: 0-10 Numeric Is Patient Pain Free? Yes [facility] Nurse 1 - General Ulcer Measurement Start: 05/25/25 13:09 Freq: Status: Active Protocol: Activity Type Activity Date Activity User E-sign Co-sign Detail Recorded Client Recorded Date Recorded By Document 05/25/25 13:09 KW [id number] 05/25/25 13:12 KW 05/25/25 13:09 Wound Center Nurse 1 #2- R LAT LEG- DOG SCRATCH -Current Size (cm) - Length 0 -Current Size (cm) - Width 0 -Current Size (cm) - Depth 0 -Total Square Cm 0 -Date of Last Picture (Recall this 05/25/25 field) -Epithelialization Large 67-100% -Exudate Amt None Present -Granulation Amt None Present (0 %) -Texture (Maylin-wound Skin Appearance) Assessed -Moisture (Maylin-wound Skin Appearance) Assessed -Color (Maylin-wound Skin Appearance) Assessed -Temperature (Maylin-wound Skin No Abnormality Appearance) (Pt Warm) -Tenderness on Palpation (Maylin-wound No Skin Appearance) -Ulcer Cleansing Rinsed/ Irrigated with Saline -Foul Odor after Cleansing No -Wound Comment(s) possibly healed - Nurse 2 - General Ulcer CM Notes Start: 05/25/25 13:09 Freq: Status: Active Protocol: Activity Type Activity Date Activity User E-sign Co-sign Detail Recorded Client Recorded Date Recorded By Document 05/25/25 13:16 [id number] 05/25/25 13:17 DS 05/25/25 13:16 Wound Center Nurse 2 -Time 13:16 -Correct Patient Yes -Correct Side, Site, Position Yes -Procedure Performed No -Wound/Ulcer Outcome Healed- Epithelialized Pain Scale: 0-10 Numeric Is Patient Pain Free? Yes - Nurse 3 - General Ulcer D/C NN Start: 05/25/25 13:09 Freq: Status: Active Protocol: Activity Type Activity Date Activity User E-sign Co-sign Detail Recorded Client Recorded Date Recorded By Document 05/25/25 13:17 DS [id number] 05/25/25 13:17 DS 05/25/25 13:17 Wound Care Center Nurse 3 #2- R LAT LEG- DOG SCRATCH -Wound Comment(s) pt healed - pt d/c Pain Scale: 0-10 Numeric Is Patient Pain Free? Yes - Visit Discharge Discharge Condition Stable Ambulatory Status Ambulatory,Cane Transportation Private Auto Charges/Coding Visit Charges Office Visits / Consults: 41180 OV L3 Est 20min Assessment/Plan Assessment/Plan (1) Non-pressure chronic ulcer of right calf with fat layer exposed: CODE(S): L97.212 - Non-pressure chronic ulcer of right calf with fat layerexposed (2) Traumatic open wound of lower leg: CODE(S): S81.809A - Unspecified open wound, unspecified lower leg, initialencounter QUALIFIERS: Encounter type: subsequent encounter Laterality: right Qualified Code(s): S81.801D - Unspecified open wound, right lower leg, subsequent encounter (3) S/P ORIF (open reduction internal fixation) fracture: CODE(S): Z96.7 - Presence of other bone and tendon implants; Z87.81 - Personal history of (healed) traumatic fracture (4) S/P ORIF (open reduction internal fixation) fracture: CODE(S): Z98.890 - Other specified postprocedural states; Z87.81 - Personal history of (healed) traumatic fracture (5) History of surgery on wrist: CODE(S): Z98.890 - Other specified postprocedural states (6) History of cataract surgery: CODE(S): Z98.49 - Cataract extraction status, unspecified eye (7) History of ankle surgery: CODE(S): Z98.890 - Other specified postprocedural states (8) Hypothyroidism: CODE(S): E03.9 - Hypothyroidism, unspecified QUALIFIERS: Hypothyroidism type: acquired Qualified Code(s): E03.9 - Hypothyroidism, unspecified (9) Raynaud phenomenon: CODE(S): I73.00 - Raynaud's syndrome without gangrene QUALIFIERS: Raynaud?s-associated gangrene presence: without gangrene Qualified Code(s): I73.00 - Raynaud's syndrome without gangrene (10) Osteoporosis: CODE(S): M81.0 - Age-related osteoporosis without current pathological fracture (11) Wbyl-cige-wvrvvtivattfvqv: CODE(S): E78.6 - Lipoprotein deficiency PLAN: Plan This is a 74-year-old female who has recently been treated for traumatic wounds on both lower extremities. However, as of this clinic visit, all wounds are nowcompletely healed and epithelialized. Therefore, the patient is to be discharged, and she will follow-up henceforth on an as needed basis. Total time: 20 minutes 05/26/25 1355 Cosigner Signature (if applicable): CC: ~ Signed [facility]09-15-2025 History of Present illness Narrative* Sidle, Leighann, Mammo Yeni - 05/24/2025 2:10 PM EDT Radiology Service Progress Note PATIENT NAME: Geraldine Hairston DATE OF SERVICE: May 24, 2025 TIME: 1:49 PM PATIENT IDENTITY VERIFICATION COMPLETED USING TWO (2) IDENTIFIERS: Name and Date of confirmedby patient verbally. FALL SCREENING: Has the patient had 2 falls in the last year or 1 fall with injury or currently using an Ambulatory Assistive Device (Walker, Cane, Wheelchair, Crutches, etc.)? No PATIENT GENDER DATA: Assigned female at . status: : No status:NO. PATIENT RELEVANT IMPLANT DATA REVIEWED: Not Applicable PATIENT PRESENTS WITH AN IMPLANTABLE OR ATTACHED CUSTOMER PRICING MANAGER: No RADIOLOGY DEPARTMENT: Mammography PERIPHERAL IV DATA: Not applicable SIGNED BY: Paulie Espino May 24, 2025 1:49 PM [facility] NoteHNO ID: [id number] Author: LEIGHANN BURGOS Mammo Tech Service: ? Author Type: Architect Intern Type: Progress Notes Filed: 05/24/2025 13:50 Note Text: Radiology Service Progress Note PATIENT NAME: Geraldine Hairston DATE OF SERVICE: May 24, 2025 TIME: 1:49 PM PATIENT IDENTITY VERIFICATION COMPLETED USING TWO (2) IDENTIFIERS: Name and Date of confirmed by patient verbally. FALL SCREENING: Has the patient had 2 falls in the last year or 1 fall with injury or currently using an Ambulatory Assistive Device (Walker, Cane, Wheelchair, Crutches, etc.)? No PATIENT GENDER DATA: Assigned female at . status: : No status: NO. PATIENT RELEVANT IMPLANT DATA REVIEWED: Not Applicable PATIENT PRESENTS WITH AN IMPLANTABLE OR ATTACHED CUSTOMER PRICING MANAGER: No RADIOLOGY DEPARTMENT: Mammography PERIPHERAL IV DATA: Not applicable SIGNED BY: Paulie Espino May 24, 2025 1:49 [facility]08-31-2025 History and physical note Author Cedric Gibbons [facility] Note Date/Time May 09, 2025 5: 09pm [facility] [address] [place] [address] H&P Exam - Wound Care 05/09/25 1703 MR#: [id number] Acct: [id number] Name: GERALDINE HAIRSTON Rep #:[id number] : 1950 74 From: Cedric Worthington PCP: Dr. Chance Kolb MD Status:RE G RCR Location: History of Present Illness Date of Service: 05/04/25 Chief Complaint: Traumatic avulsion injury of the right medial calf History of Wound: This is a 74-year-old female who sustained a traumatic injury to her left medial calf on January 01, 2025. At the time of her injury, she presented to the [facility] Emergency Department, where she was found to have an avulsion injury with a significant adherent cutaneous flap. The injury was caused by the nails of her dog, who had jumped off the couch. Inthe Emergency Department, the flap was sutured in place using seven 5-0 nylon sutures. The patient was placed on Keflex and Augmentin orally, and was discharged. The patient is generally healthy for her age, though has a history of ihrs-lqnr-boviujdvhxolqqv, GERD, hypertension, hypothyroidism, and osteoporosis. She denies a history of diabetes mellitus, myocardial infarction,cerebrovascular accident, renal disease, and pulmonary disease. Her BMI is 19.5. She is . Since the patient's initial presentation, the traumatic injury on her left calf has healed, and she has sustained a similar injury to the right medial calf, for which she remains a patient at the [facility]. 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 left calf with fat layer exposed Traumatic open wound of lower leg Avulsion injury GERD (gastroesophageal reflux disease) HTN (hypertension) Hypothyroidism Depression Anxiety Home Medications ?Medication ?Instructions ?Recorded ?Last Taken ?Type levothyroxine 25 mcg tablet 25 mcg PO DAILY Check with primary 02/07/15 09/29/16 09:00 History doctor Bacillus coagulans-inulin 1 1 ea PO DAILY Check with p skye 12/07/15 09/29/16 09:00 History billion cell-250 mg capsule doctor (Probiotic Formula (inulin)) gabapentin 100 mg capsule 600 mg PO BID Check with loretta deyanira 12/07/15 09/29/16 21:00 History doctor nifedipine 60 mg tablet,extended 180 mg PO DAILY Check with primary 12/07/15 09/29/16 09:00 History release 24 hr doctor pantoprazole 20 mg tablet,delayed 20 mg PO DAILY [facility] 12/07/15 09/29/16 09:00 History release paroxetine HCl 25 mg 75 mg PO DAILY depression 09/29/16 09:00 History tablet,extended release 24 hr (Paxil CR) aspirin 325 mg tablet,delayed 325 mg PO DAILY HEART 09/29/16 09:00 History release buspirone 5 mg tablet 30 mg PO BID Check with prim lesley 04/26/16 09/29/16 21:00 History doctor budesonide 3 mg 9 mg PO DAILY Check with loretta deyanira 09/30/16 Unknown History capsule,delayed,extended release doctor (Entocort EC) lorazepam 0.5 mg tablet 0.5 mg PO Q6H PRN PRN Anxiet y ##10 10/03/16 Unknown Rx dicyclomine 20 mg tablet 20 mg PO TID Check with prim lesley 09/02/22 Unknown History doctor Metamucil Check with primary doctor Unknown History food supplemt, lactose-reduced 120 ml PO 4X/DAY Check with 09/07/22 Unknown History 0.08 gram-1.5 kcal/mL oral liquid primary doctor (Ensure Enlive) loperamide 2 mg tablet 2 mg PO Q6H PRN Constipation 09/07/22 Unknown History omeprazole 40 mg PO/SL DAILY Check with 09/07/22 Unknown History primary doctor atorvastatin 80 mg tablet 20 mg (1/4 x 80 mg) PO QHS # 30 tabs 09/08/22 Unknown Rx cyclobenzaprine 5 mg tablet 5 mg PO TID PRN muscle spa sm #14 03/18/25 Unknown Rx tabs ondansetron 4 mg disintegrating 4 mg PO Q6H PRN nausea and 03/18/25 Unknown Rx tablet vomiting #20 tabs oxycodone-acetaminophen 5 mg-325 1 tab PO Q6H PRN pain 2 days #8 03/18/25 Unknown Rx mg tablet (Endocet) tabs Allergy/AdvReac Type Severity Reaction Status Date / Time acetaminophen (From Percocet) Allergy Other Verified 03/13/25 19:15 oxycodone (From Percocet) Allergy Other Verified 03/13/25 19:15 codeine AdvReac Nausea & Verified 03/13/25 19:15 dizziness oxycodone HCl (From Percocet) AdvReac Nausea & Verified 03/13/25 19:15 dizziness Family History Father Diabetes Dementia Surgical History S/P ORIF (open reduction internal fixation) fracture History of surgery on wrist History of cataract surgery History of ankle surgery Social History household members: none Smoking Status: Never smoker substance use type: does not use Physical Exam Const alert, oriented x3, no apparent distress, average body habitus and no limitations Constitutional Narrative: The patient's BMI is 19.5. She is thin and petite. General Appearance: cooperative, comfortable, well kempt and well developed Orientation / Consciousness: awake, oriented to person, oriented to place and oriented to time Exam Limitations: no limitations HEENT normocephalic and head/scalp atraumatic Head and Scalp: normal to inspection, normocephalic and atraumatic Face and Sinus: normal facial exam Nose: external nose normal External Ear: external ears normal Eyes EOMs intact bilaterally General Eye: normal appearance of both eyes Neck full ROM Resp normal respiratory effort, normal air movement, no retractions and no use of accessory muscles Effort and Inspection: able to speak in complete sentences Extremity General Extremity: Negative for clubbing or cyanosis Skin Wound Narrative: The traumatic wound on the patient's left medial calf remains completely healed and epithelialized. However, the patient sustained a wound on her right calf asresult of an injury caused by her dog. She was seen and evaluated in the [facility] Emergency Department on March 13, 2025, at which time she was found to have a triangular-shaped laceration/avulsion injury on her right calf. Seven 4-0 Ethilon sutures were used to reapproximate the avulsion flap. The patient was placed on cephalexin and Augmentin orally. The sut[facility], which were placed in the Emergency Department, [facility] [place] Since that time, the traumatic flap has largely necrosed due to ischemia. An open wound persists at the site, which appears to be full-thickness in nature. It extends through all layers of the dermis and into the subcutaneous tissues. Wound margins are well beveled. There is a small amount of slough and bioburden. [place] healthy granulation tissue is also noted. Dimensions are documented elsewhere. The wound has progressively diminished in size, and is now quite small. There is no sign of infection or cellulitis. No significant swelling or edema are noted in the lower extremities. Neuro oriented x3, CN's II-XII intact bilaterally, moves all extremities, no focal motor deficits and no sensory deficits noted Sensorium / Orientation: awake, alert, oriented to person, oriented to place andoriented to time Speech: speech normal Psych Appearance: grossly normal and appropriate Attitude: calm Activity / Motor Behavior: appropriate eye contact Speech: normal speech Mood & Affect: euthymic mood Thought Process: normal thought process Thought Content: normal thought content Attention / Concentration: attention grossly intact Debridement Note Debridement Note Wound debrided: Right medial calf wound Laterality: Right Type of Debridement: Excisional debridement Anesthesia Used: 5% Lidocaine Gel Depth: Down to and including healthy tissue and in the subcutaneous layer Percentage of wound debrided: 100 Instrument Used: 3mm curette Tissue Removed: Slough and bioburden Severity: Fat Layer Exposed Amount of bleeding with debridement: Mild Bleeding Controlled with: Compression and gauze Patient tolerated procedure: Patient tolerated procedure well Post-Debridement Measurements and Additional Note: Post-Debridement Measurements/Treatment - Nurse 1 - General Ulcer Assessment Start: 04/20/25 13:14 Freq: Status: Active Protocol: NATHALIE Activity Type Activity Date Activity User E-sign Co-sign Detail Recorded Client Recorded Date Recorded By Document 04/20/25 13:14 [facility] [id number] 04/20/25 13:20 [facility] Document 05/04/25 13:08 RUSS [id number] 05/04/25 13:09 RUSS 04/20/25 05/04/25 13:14 13:08 - Today's Visit Information Type of service Follow-up Visit Follow-up Visit (Physician/DEALERSHIP MANAGER (Physician/DEALERSHIP MANAGER ) ) Arrival Mode Ambulatory Ambulatory,Cane Transfer Assistance None Patient Identification Verified (Name & Yes Yes ) Patient Requires Transmission-Based No Precautions Vital Signs Temperature (97.8 F-99.1 F) 98 F 96.5 F L Temperature Source Temporal Temporal Pulse Rate (60-100) 96 91 Pulse Location Monitor Monitor Respiratory Rate (12-18) 16 16 Respiratory rate source Observation Observation Oxygen Delivery Method Room Air Room Air Blood Pressure (90/60-120/80) 98/65 93/60 Blood Pressure Mean 76 71 Source Monitor Monitor Position Sitting Semi-Fowlers Blood Pressure Location Right Arm Right Arm History Since Last Visit- (Skip if this is Patient's initial visit) Have you changed medications since your No No last visit? Any new allergies or adverse reactions No No Had a fall/change in ADL's that may No No increase risk of falls Signs or symptoms of abuse and/or No No neglect since last visit Have you been in the hospital since your No No last visit? Has dressing in place as prescribed No Yes Has compression in place as prescribed No N/A Has offloadiing in place as prescribed N/A N/A Experienced any changes in pain level or No No management Left Footwear Regular Shoe Regular Shoe Right Footwear Regular Shoe Regular Shoe Pain Scale: 0-10 Numeric Is Patient Pain Free? Yes Yes WC - Nurse 1 - General Ulcer Measurement Start: 04/20/25 13:14 Freq: Status: Active Protocol: Activity Type Activity Date Activity User E-sign Co-sign Detail Recorded Client Recorded Date Recorded By Document 04/20/25 13:14 [facility] [id number] 04/20/25 13:20 [facility] Document 05/04/25 13:08 [id number] 05/04/25 13:09 KW 04/20/25 05/04/25 13:14 13:08 Wound Center Nurse 1 #2- R LAT LEG- DOG SCRATCH -Combined with other wound No -Current Size (cm) - Length 0.1 0.1 -Current Size (cm) - Width 0.1 0.1 -Current Size (cm) - Depth 0.1 0 -Total Square Cm 0.01 0.01 -Date of Last Picture (Recall this 04/20/25 05/04/25 field) -Epithelialization Large 67-100% Large 67-100% -Tunneling No -Undermining/Tunneling No -Circular Undermining No -Exudate Amt None Present None Present -Wound Margin Distinct, Outline Attached -Granulation Amt None Present (0 None Present (0 %) %) -Slough/Fibrin Yes -Necrosis Amt Small (1-33%) -Necrotic Tissue Type Eschar -Texture (Maylin-wound Skin Appearance) Assessed Assessed -Moisture (Maylin-wound Skin Appearance) Assessed,Dry/ Assessed Scaly -Color (Maylin-wound Skin Appearance) Assessed Assessed -Temperature (Maylin-wound Skin No Abnormality No Abnormality Appearance) (Pt Warm) (Pt Warm) -Tenderness on Palpation (Maylin-wound No No Skin Appearance) -Ulcer Cleansing Rinsed/ Rinsed/ Irrigated with Irrigated with Saline Saline -Foul Odor after Cleansing No No -Anesthetic Used 5% Lidocaine 5% Lidocaine Gel Gel -Wound Comment(s) SMALL SCAB Lower Limb Edema Present Yes Right Calf (cm) 30.5 Right Ankle (cm) 20 Left Calf (cm) 30.5 Left Ankle (cm) 19.5 WC - Nurse 2 - General Ulcer CM Notes Start: 04/20/25 13:14 Freq: Status: Active Protocol: Activity Type Activity Date Activity User E-sign Co-sign Detail Recorded Client Recorded Date Recorded By Document 04/20/25 13:30 [id number] 04/20/25 13:34 Document 05/04/25 13:23 DS [id number] 05/04/25 13:25 DS 04/20/25 05/04/25 13:30 13:23 Wound Center Nurse 2 #2- R LAT LEG- DOG SCRATCH -Time 13:32 13:23 -Correct Patient Yes Yes -Correct Side, Site, Position Yes Yes -Correct Procedure Yes Yes -Procedure Performed Yes Yes -Type of Procedure Debridement Debridement -Clinical Debridement Subcutaneous Subcutaneous -Tissue Removed Subcutaneous Subcutaneous -Post Debridement (cm) - Length 0.4 0.4 -Post Debridement (cm) - Width 0.3 0.2 -Post Debridement (cm) - Depth 0.1 0.1 -Total Square (Post) (cm) 0.12 0.08 -Area of Debridement (cm) - Length 0.4 0.4 -Area of Debridement (cm) - Width 0.3 0.2 -Total Square (Area) (cm) 0.12 0.08 -Tunneling No No -Undermining/Tunneling No -Circular Undermining No No -Wound/Ulcer Outcome Not Healed Not Healed -Ulcer Cleansing Rinsed/ gauze Irrigated with Saline -Foul Odor after Cleansing No No -Bioengineered Tissue No No -Bleeding Controlled with Pressure Pressure -Treatment Response Procedure Procedure Tolerated Well Tolerated Well -Offloading No -Debridement - Subq, 1st 20sq cm Yes Yes Pain Scale: 0-10 Numeric Is Patient Pain Free? Yes Yes - Nurse 3 - General Ulcer D/C NN Start: 04/20/25 13:14 Freq: Status: Active Protocol: Activity Type Activity Date Activity User E-sign Co-sign Detail Recorded Client Recorded Date Recorded By Document 04/20/25 13:39 BM [id number] 04/20/25 13:39 [facility] Document 05/04/25 13:36 ML [id number] 05/04/25 13:37 ML 04/20/25 05/04/25 13:39 13:36 Wound Care Center Nurse 3 #2- R LAT LEG- DOG SCRATCH -Ulcer Cleansing Rinsed/ Rinsed/ Irrigated with Irrigated with Saline Saline -Foul Odor after Cleansing No -Primary Dressing Applied C Hydrogel, C Hydrogel, Silicone Border Silicone Border Foam 4x4 Foam AG 3.6x4 -Hydrogel 1 0 -Silicone Border Foam AG 3.6x4 1 -Silicone Border Foam 4x4 1 Treatment Response Procedure Tolerated Well Pain Scale: 0-10 Numeric Is Patient Pain Free? Yes Yes - Visit Discharge Discharge Condition Stable Ambulatory Status Ambulatory,Cane Transportation Private Auto Charges/Coding Procedures Integumentary [id number]: [id number] Esha subq tissue 20 sq cm/< Assessment/Plan Assessment/Plan (1) Non-pressure chronic ulcer of right calf with fat layer exposed: CODE(S): L97.212 - Non-pressure chronic ulcer of right calf with fat layerexposed (2) Traumatic open wound of lower leg: CODE(S): S81.809A - Unspecified open wound, unspecified lower leg, initialencounter QUALIFIERS: Encounter type: subsequent encounter Laterality: right Qualified Code(s): S81.801D - Unspecified open wound, right lower leg, subsequent encounter (3) S/P ORIF (open reduction internal fixation) fracture: CODE(S): Z96.7 - Presence of other bone and tendon implants; Z87.81 - Personal history of (healed) traumatic fracture (4) S/P ORIF (open reduction internal fixation) fracture: CODE(S): Z98.890 - Other specified postprocedural states; Z87.81 - Personal history of (healed) traumatic fracture (5) History of surgery on wrist: CODE(S): Z98.890 - Other specified postprocedural states (6) History of cataract surgery: CODE(S): Z98.49 - Cataract extraction status, unspecified eye (7) History of ankle surgery: CODE(S): Z98.890 - Other specified postprocedural states (8) Hypothyroidism: CODE(S): E03.9 - Hypothyroidism, unspecified QUALIFIERS: Hypothyroidism type: acquired Qualified Code(s): E03.9 - Hypothyroidism, unspecified (9) Raynaud phenomenon: CODE(S): I73.00 - Raynaud's syndrome without gangrene QUALIFIERS: Raynaud?s-associated gangrene presence: without gangrene Qualified Code(s): I73.00 - Raynaud's syndrome without gangrene (10) Osteoporosis: CODE(S): M81.0 - Age-related osteoporosis without current pathological fracture (11) Yhqn-dkzc-oirxvddvcbblaui: 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 The injury occurred when thepatient's dog traumatized her leg with its nails. Due to management at the [facility], the wound on the left calf has completely healed and epithelialized. However, the patient subsequently sustained a wound on her right calf as the result of a similar injury caused by her dog. She was seen and evaluated in the [facility] on March 13, 2025, at which time she was found to have a triangular-shaped laceration/avulsion injury on her right calf. Seven 4-0 Ethilon sutures were used to reapproximate the avulsion flap. The patient was placed on cephalexin and Augmentin orally. The sutures, which were placed in the Emergency Department, were removed on March 22, 2025, at the [facility] in [place]. The avulsion flap did not survive due to ischemia, and it necrosed, leaving an open, full-thickness wound at the site. The wound has decreased in size progressively. We are to continue the use of collagen hydrogel topically on a daily basis. The patient has been instructed in the appropriate means of application. The patient is to return in 2 weeks for reevaluation. The patienthas been counseled to elevate her lower extremities as much as possible, to remain active, and to avoid prolonged, idle sitting. She has been advised to optimize her nutritional intake, and is using Huy as a supplement. Total time: 22 minutes 05/09/25 1709 <Electronically signed by Cedric Gibbons MD> Cosigner Signature (if applicable): CC: ~ Signed [facility] Work Phone: [phone] History and physical note [facility] [address] [place] [id number] H&P Exam - Wound Care 05/09/25 170 MR#: [id number] Acct: [id number] Name: GERALDINE HAIRSTON Rep #:[id number] 02 : 1950 74 From: Cedric Worthington PCP: Dr. Chance Kolb MD Status:RE G RCR Location: History of Present Illness Date of Service: 05/04/25 Chief Complaint: Traumatic avulsion injury of the right medial calf History of Wound: This is a 74-year-old female who sustained a traumatic injury to her left medial calf on January 01, 2025. At the time of her injury, she presented to the [facility] Emergency Department, where she was found to have an avulsion injury with a significant adherent cutaneous flap. The injury was caused by the nails of her dog, who had jumped off the couch. Inthe Emergency Department, the flap was sutured in place using seven 5-0 nylon sutures. The patient was placedon Keflex and Augmentin orally, and was discharged. The patient is generally healthy for her age, though has a history of warn-uzgh-xuzzwjktmqifnww, GERD, hypertension, hypothyroidism, and osteoporosis. She denies a history of diabetes mellitus, myocardial infarction,cerebrovascular accident, renaldisease, and pulmonary disease. Her BMI is 19.5. She is . Since the patient's initial presentation, the traumatic injury on her left calf has healed, and she has sustained a similar injury to the right medial calf, for which she remains a patient at the W[facility] Center. 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 left calf with fat layer exposed Traumatic open wound of lower leg Avulsion injury GERD (gastroesophageal reflux disease) HTN (hypertension) Hypothyroidism Depression Anxiety Home Medications ?Medication ?Instructions ?Recorded ?Last Taken ?Type levothyroxine 25 mcg tablet 25 mcg PO DAILY Check with primary 02/07/15 09/29/16 09:00 History doctor Bacillus coagulans-inulin 1 1 ea PO DAILY Check with p skye 12/07/15 09/29/16 09:00 History billion cell-250 mg capsule doctor (Probiotic Formula (inulin)) gabapentin 100 mg capsule 600 mg PO BID Check with loretta deyanira 12/07/15 09/29/16 21:00 History doctor nifedipine 60 mg tablet,extended 180 mg PO DAILY Check with primary 12/07/15 09/29/16 09:00 History release 24 hr doctor pantoprazole 20 mg tablet,delayed 20 mg PO DAILY [facility] 12/07/15 09/29/16 09:00 History release paroxetine HCl 25 mg 75 mg PO DAILY depression 09/29/16 09:00 History tablet,extended release 24 hr (Paxil CR) aspirin 325 mg tablet,delayed 325 mg PO DAILY HEART 09/29/16 09:00 History release buspirone 5 mg tablet 30 mg PO BID Check with prim lesley 04/26/16 09/29/16 21:00 History doctor budesonide 3 mg 9 mg PO DAILY Check with loretta deyanira 09/30/16 Unknown History capsule,delayed,extended release doctor (Entocort EC) lorazepam 0.5 mg tablet 0.5 mg PO Q6H PRN PRN Anxiet y ##10 10/03/16 Unknown Rx dicyclomine 20 mg tablet 20 mg PO TID Check with prim lesley 09/02/22 Unknown History doctor Metamucil Check with primary doctor Unknown History food supplemt, lactose-reduced 120 ml PO 4X/DAY Check with 09/07/22 Unknown History 0.08 gram-1.5 kcal/mL oral liquid primary doctor (Ensure Enlive) loperamide 2 mg tablet 2 mg PO Q6H PRN Constipation 09/07/22 Unknown History omeprazole 40 mg PO/SL DAILY Check with 09/07/22 Unknown History primary doctor atorvastatin 80 mg tablet 20 mg (1/4 x 80 mg) PO QHS # 30 tabs 09/08/22 Unknown Rx cyclobenzaprine 5 mg tablet 5 mg PO TID PRN muscle spa sm #14 03/18/25 Unknown Rx tabs ondansetron 4 mg disintegrating 4 mg PO Q6H PRN nausea and 03/18/25 Unknown Rx tablet vomiting #20 tabs oxycodone-acetaminophen 5 mg-325 1 tab PO Q6H PRN pain 2 days #8 03/18/25 Unknown Rx mg tablet (Endocet) tabs Allergy/AdvReac Type Severity Reaction Status Date / Time acetaminophen (From Percocet) Allergy Other Verified 03/13/25 19:15 oxycodone (From Percocet) Allergy Other Verified 03/13/25 19:15 codeine AdvReac Nausea & Verified 03/13/25 19:15 dizziness oxycodone HCl (From Percocet) AdvReac Nausea & Verified 03/13/25 19:15 dizziness Family History Father Diabetes Dementia Surgical History S/P ORIF (open reduction internal fixation) fracture History of surgery on wrist History of cataract surgery History of ankle surgery Social History household members: none Smoking Status: Never smoker substance use type: does not use Physical Exam Const alert, oriented x3, no apparent distress, average body habitus and no limitations Constitutional Narrative: The patient's BMI is 19.5. She is thin and petite. General Appearance: cooperative, comfortable, well kempt and well developed Orientation / Consciousness: awake, oriented to person, oriented to place and oriented to time Exam Limitations: no limitations HEENT normocephalic and head/scalp atraumatic Head and Scalp: normal to inspection, normocephalic and atraumatic Face and Sinus: normal facial exam Nose: external nose normal External Ear: external ears normal Eyes EOMs intact bilaterally General Eye: normal appearance of both eyes Neck full ROM Resp normal respiratory effort, normal air movement, no retractions and no use of accessory muscles Effort and Inspection: able to speak in complete sentences Extremity General Extremity: Negative for clubbing or cyanosis Skin Wound Narrative: The traumatic wound on the patient's left medial calf remains completely healed and epithelialized.However, the patient sustained a wound on her right calf asresult of an injury caused by her dog. She was seen and evaluated in the [facility] Emergency Department on March 13, 2025, atwhich time she was found to have a triangular-shaped laceration/avulsion injury on her right calf. Seven 4-0 Ethilon sutures were used to reapproximate the avulsion flap. The patient was placed on cephalexin and Augmentin orally. The sut[facility], which were placed in the Emergency Department, [facility] [place] Since that time, the traumatic flap has larg johnny necrosed due to ischemia. An open wound persists at the site, which appears to be full-thickness in nature. It extends through all layers of the dermis and into the subcutaneous tissues. Wound margins are well beveled. There is a small amount of slough and bioburden. [place] healthy granulation tissue is also noted. Dimensions are documented elsewhere. The wound has progressively diminished in size, and is now quite small. There is no sign of infection or cellulitis. No significant swelling oredema are noted in the lower extremities. Neuro oriented x3, CN's II-XII intact bilaterally, moves all extremities, no focal motor deficits and no sensory deficits noted Sensorium / Orientation: awake, alert, oriented to person, oriented to place andoriented to time Speech: speech normal Psych Appearance: grossly normal and appropriate Attitude: calm Activity / Motor Behavior: appropriate eye contact Speech: normal speech Mood & Affect: euthymic mood Thought Process: normal thought process Thought Content: normal thought content Attention / Concentration: attention grossly intact Debridement Note Debridement Note Wound debrided: Right medial calf wound Laterality: Right Type of Debridement: Excisional debridement Anesthesia Used: 5% Lidocaine Gel Depth: Down to and including healthy tissue and in the subcutaneous layer Percentage of wound debrided: 100 Instrument Used: 3mm curette Tissue Removed: Slough and bioburden Severity: Fat Layer Exposed Amount of bleeding with debridement: Mild Bleeding Controlled with: Compression and gauze Patient tolerated procedure: Patient tolerated procedure well Post-Debridement Measurements and Additional Note: Post-Debridement Measurements/Treatment - Nurse 1 - General Ulcer Assessment Start: 04/20/25 13:14 Freq: Status: Active Protocol: NATHALIE Activity Type Activity Date Activity User E-sign Co-sign Detail Recorded Client Recorded Date Recorded By Document 04/20/25 13:14 BM [id number] 04/20/25 13:20 BM Document 05/04/25 13:08 KW [id number] 05/04/25 13:09 KW 04/20/25 05/04/25 13:14 13:08 - Today's Visit Information Type of service Follow-up Visit Follow-up Visit (Physician/DEALERSHIP MANAGER (Physician/DEALERSHIP MANAGER ) ) Arrival Mode Ambulatory Ambulatory,Cane Transfer Assistance None Patient Identification Verified (Name & Yes Yes ) Patient Requires Transmission-Based No Precautions Vital Signs Temperature (97.8 F-99.1 F) 98 F 96.5 F L Temperature Source Temporal Temporal Pulse Rate (60-100) 96 91 Pulse Location Monitor Monitor Respiratory Rate (12-18) 16 16 Respiratory rate source Observation Observation Oxygen Delivery Method Room Air Room Air Blood Pressure (90/60-120/80) 98/65 93/60 Blood Pressure Mean 76 71 Source Monitor Monitor Position Sitting Semi-Fowlers Blood Pressure Location Right Arm Right Arm History Since Last Visit- (Skip if this is Patient's initial visit) Have you changed medications since your No No last visit? Any new allergies or adverse reactions No No Had a fall/change in ADL's that may No No increase risk of falls Signs or symptoms of abuse and/or No No neglect since last visit Have you been in the hospital since your No No last visit? Has dressing in place as prescribed No Yes Has compression in place as prescribed No N/A Has offloadiing in place as prescribed N/A N/A Experienced any changes in pain level or No No management Left Footwear Regular Shoe Regular Shoe Right Footwear Regular Shoe Regular Shoe Pain Scale: 0-10 Numeric Is Patient Pain Free? Yes Yes - Nurse 1 - General Ulcer Measurement Start: 04/20/25 13:14 Freq: Status: Active Protocol: Activity Type Activity Date Activity User E-sign Co-sign Detail Recorded Client Recorded Date Recorded By Document 04/20/25 13:14 BM [id number] 04/20/25 13:20 [facility] Document 05/04/25 13:08 KW [id number] 05/04/25 13:09 04/20/25 05/04/25 13:14 13:08 Wound Center Nurse 1 #2- R LAT LEG- DOG SCRATCH -Combined with other wound No -Current Size (cm) - Length 0.1 0.1 -Current Size (cm) - Width 0.1 0.1 -Current Size (cm) - Depth 0.1 0 -Total Square Cm 0.01 0.01 -Date of Last Picture (Recall this 04/20/25 05/04/25 field) -Epithelialization Large 67-100% Large 67-100% -Tunneling No -Undermining/Tunneling No -Circular Undermining No -Exudate Amt None Present None Present -Wound Margin Distinct, Outline Attached -Granulation Amt None Present (0 None Present (0 %) %) -Slough/Fibrin Yes -Necrosis Amt Small (1-33%) -Necrotic Tissue Type Eschar -Texture (Maylin-wound Skin Appearance) Assessed Assessed -Moisture (Maylin-wound Skin Appearance) Assessed,Dry/ Assessed Scaly -Color (Maylin-wound Skin Appearance) Assessed Assessed -Temperature (Maylin-wound Skin No Abnormality No Abnormality Appearance) (Pt Warm) (Pt Warm) -Tenderness on Palpation (Maylin-wound No No Skin Appearance) -Ulcer Cleansing Rinsed/ Rinsed/ Irrigated with Irrigated with Saline Saline -Foul Odor after Cleansing No No -Anesthetic Used 5% Lidocaine 5% Lidocaine Gel Gel -Wound Comment(s) SMALL SCAB Lower Limb Edema Present Yes Right Calf (cm) 30.5 Right Ankle (cm) 20 Left Calf (cm) 30.5 Left Ankle (cm) 19.5 WC - Nurse 2 - General Ulcer CM Notes Start: 04/20/25 13:14 Freq: Status: Active Protocol: Activity Type Activity Date Activity User E-sign Co-sign Detail Recorded Client Recorded Date Recorded By Document 04/20/25 13:30 [id number] 04/20/25 13:34 Document 05/04/25 13:23 DS [id number] 05/04/25 13:25 DS 04/20/25 05/04/25 13:30 13:23 Wound Center Nurse 2 #2- R LAT LEG- DOG SCRATCH -Time 13:32 13:23 -Correct Patient Yes Yes -Correct Side, Site, Position Yes Yes -Correct Procedure Yes Yes -Procedure Performed Yes Yes -Type of Procedure Debridement Debridement -Clinical Debridement Subcutaneous Subcutaneous -Tissue Removed Subcutaneous Subcutaneous -Post Debridement (cm) - Length 0.4 0.4 -Post Debridement (cm) - Width 0.3 0.2 -Post Debridement (cm) - Depth 0.1 0.1 -Total Square (Post) (cm) 0.12 0.08 -Area of Debridement (cm) - Length 0.4 0.4 -Area of Debridement (cm) - Width 0.3 0.2 -Total Square (Area) (cm) 0.12 0.08 -Tunneling No No -Undermining/Tunneling No -Circular Undermining No No -Wound/Ulcer Outcome Not Healed Not Healed -Ulcer Cleansing Rinsed/ gauze Irrigated with Saline -Foul Odor after Cleansing No No -Bioengineered Tissue No No -Bleeding Controlled with Pressure Pressure -Treatment Response Procedure Procedure Tolerated Well Tolerated Well -Offloading No -Debridement - Subq, 1st 20sq cm Yes Yes Pain Scale: 0-10 Numeric Is Patient Pain Free? Yes Yes WC - Nurse 3 - General Ulcer D/C NN Start: 04/20/25 13:14 Freq: Status: Active Protocol: Activity Type Activity Date Activity User E-sign Co-sign Detail Recorded Client Recorded Date Recorded By Document 04/20/25 13:39 [facility] [id number] 04/20/25 13:39 [facility] Document 05/04/25 13:36 ML [id number] 05/04/25 13:37 ML 04/20/25 05/04/25 13:39 13:36 Wound Care Center Nurse 3 #2- R LAT LEG- DOG SCRATCH -Ulcer Cleansing Rinsed/ Rinsed/ Irrigated with Irrigated with Saline Saline -Foul Odor after Cleansing No -Primary Dressing Applied C Hydrogel, C Hydrogel, Silicone Border Silicone Border Foam 4x4 Foam AG 3.6x4 -Hydrogel 1 0 -Silicone Border Foam AG 3.6x4 1 -Silicone Border Foam 4x4 1 Treatment Response Procedure Tolerated Well Pain Scale: 0-10 Numeric Is Patient Pain Free? Yes Yes WC - Visit Discharge Discharge Condition Stable Ambulatory Status Ambulatory,Cane Transportation Private Auto Charges/Coding Procedures Integumentary [id number]: [id number] Esha subq tissue 20 sq cm/< Assessment/Plan Assessment/Plan (1) Non-pressure chronic ulcer of right calf with fat layer exposed: CODE(S): L97.212 - Non-pressure chronic ulcer of right calf with fat layerexposed (2) Traumatic open wound of lower leg: CODE(S): S81.809A - Unspecified open wound, unspecified lower leg, initialencounter QUALIFIERS: Encounter type: subsequent encounter Laterality: right Qualified Code(s): S81.801D - Unspecified open wound, right lower leg, subsequent encounter (3) S/P ORIF (open reduction internal fixation) fracture: CODE(S): Z96.7 - Presence of other bone and tendon implants; Z87.81 - Personal history of (healed) traumatic fracture (4) S/P ORIF (open reduction internal fixation) fracture: CODE(S): Z98.890 - Other specified postprocedural states; Z87.81 - Personal history of (healed) traumatic fracture (5) History of surgery on wrist: CODE(S): Z98.890 - Other specified postprocedural states (6) History of cataract surgery: CODE(S): Z98.49 - Cataract extraction status, unspecified eye (7) History of ankle surgery: CODE(S): Z98.890 - Other specified postprocedural states (8) Hypothyroidism: CODE(S): E03.9 - Hypothyroidism, unspecified QUALIFIERS: Hypothyroidism type: acquired Qualified Code(s): E03.9 - Hypothyroidism, unspecified (9) Raynaud phenomenon: CODE(S): I73.00 - Raynaud's syndrome without gangrene QUALIFIERS: Raynaud?s-associated gangrene presence: without gangrene Qualified Code(s): I73.00 - Raynaud's syndrome without gangrene (10) Osteoporosis: CODE(S): M81.0 - Age-related osteoporosis without current pathological fracture (11) Sumw-ciha-tahvxqpovuirlyv: 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 The injury occurred when thepatient's dog traumatized her leg with its nails. Due to management at the [facility], the wound on the left calf has completely healed and epithelialized. However, the patient subsequently sustained a wound on her right calf as the result of a similar injury caused by her dog. [facility], at which time she was found to havea triangular-shaped laceration/avulsion injury on her right calf. Seven 4-0 Ethilon sutures were used to reapproximate the avulsion flap. The patient was placed on cephalexin and Augmentin orally. The sutures, which were placed in the Emergency Department, were removed on March 22, 2025, at the [facility] in [place]. The avulsion flap did not survive due to ischemia, and it necrosed, leavingan open, full-thickness wound at the site. The wound has decreased in size progressively. We are tocontinue the use of collagen hydrogel topically on a daily basis. The patient has been instructed in the appropriate means of application. The patient is to return in 2 weeks for reevaluation. The pat ienthas been counseled to elevate her lower extremities as much as possible, to remain active, and to avoid prolonged, idle sitting. She has been advised to optimize her nutritional intake, and is using Huy as a supplement. Total time: 22 minutes 05/09/25 0189 Cosigner Signature (if applicable): CC: ~ Signed [facility]08-26-2025 History of Present illness Narrative* Nguyễn Stringer APRN.LEAD BURNER SUPERVISOR - 05/04/2025 3:20 PM EDT Images from the original note were not included. Geraldine Hairston is a 74 year old female here for a Medicare wellness visit. Medicare Health Risk Assessment General Health Good Exercise: Minutes/Day 10 min Exercise: Days/Week 1 day Alcohol: Daily Use Never Alcohol: Drinks/Day Patient does not drink Alcohol: 6 or more drinks Never Feel off balance Yes Concerns: Teeth/Dentures No Concerns: Sexual function No Troubled by feelings None of the above Frequency: Eating healthy diet Nearly every day ADLs requiring help None of the above Safety precautions in home/vehicle Yes Smoke, vape, chews tobacco No Difficulty hearing Yes, I wear a hearing aid Difficulty seeing Yes Current Providers Specialists: I have reviewed specialist-related care of the patient in the medical record. Dr. Alin Altamirano Purchasing/Receiving Dr. Thom Swan at [facility] follow up. Medical/Family history review Reviewed and updated problem list, medical/surgical/family/social history, medications, and allergies. Opioid use review Opioid Medications (last 90 days) No data to display Anxiety/Depression screening PHQ-2 Score: 1 (Lower risk for depression) Recommendation: no further intervention at this time Cognitive screening Mini Cog Score: 4 Cognitive screening reviewed and No further action needed (score 3-5). Functional Observation Was the patient's Timed Up & Go test unsteady or >= 12 seconds? No Advance Care Planning Surrogate decision maker and/or advance care plan documented Measurements BP 102/54 Pulse 94 Resp 16 Ht 142 cm (4' 7.91") Wt 41.4 kg (91 lb 4.3 oz) BMI 20.53 kg/m Vision Screening: Follows with optometry/ophthalmology Latest Ref Rng 12/17/2024 04/29/2025 Protein, Total 6.3 - 8.0 g/dL 7.1 Albumin 3.9 - 4.9 g/dL 4.5 Calcium 8.5 - 10.2 mg/dL 9.4 9.1 Bilirubin, Total 0.2 - 1.3 mg/dL 0.3 Alkaline Phosphatase 34 - 123 U/L 58 AST 13 - 35 U/L 20 ALT 7 - 38 U/L 21 Glucose 74 - 99 mg/dL 77 144 (H) BUN 7 - 21 mg/dL 20 19 Creatinine 0.58 - 0.96 mg/dL 0.95 0.89 Sodium 136 - 144 mmol/L 141 142 Potassium 3.7 - 5.1 mmol/L 3.3 (L) 4.0 Chloride 98 - 107 mmol/L 102 107 CO2 22 - 30 mmol/L 24 22 Anion Gap 8 - 15 mmol/L 15 13 eGFR >=60 mL/min/1.73m 63 68 WBC 3.70 - 11.00 k/uL 9.87 RBC 3.90 - 5.20 m/uL 4.55 Hemoglobin 11.5 - 15.5 g/dL 13.9 Hematocrit 36.0 - 46.0 % 42.5 MCV 80.0 - 100.0 fL 93.4 MCH 26.0 - 34.0 pg 30.5 MCHC 30.5 - 36.0 g/dL 32.7 RDW-CV 11.5 - 15.0 % 13.9 Platelet Count 150 - 400 k/uL 266 MPV 9.0 - 12.7 fL 10.4 Absolute nRBC <0.01 k/uL <0.01 Cholesterol, Total <200 mg/dL 305 (H) Triglyceride <150 mg/dL 95 HDL Cholesterol >39 mg/dL 114 Non HDL Cholesterol <130 mg/dL 191 (H) Fasting Time hrs 12 VLDL Cholesterol <30 mg/dL 19 TC:HDL Ratio <5.10 2.68 LDL Cholesterol, Calculated <100 mg/dL 172 (H) LDL:HDL Ratio <2.54 1.51 Vitamin D 25 Hydroxy 31.0 - 80.0 ng/mL 100.0 (H) 77.2 Magnesium 1.7 - 2.3 mg/dL 2.0 TSH 0.270 - 4.200 mIU/L 1.940 Free T4 0.9 - 1.7 ng/dL 1.3 Free T3 2.3 - 4.1 pg/mL 2.2 (L) Assessment/Plan Medicare annual wellness visit, subsequent () - Counseled on healthy diet and regular exercise - Fall avoidance information provided - Personalized prevention plan provided ASSESSMENT/PLAN: 1. Medicare annual wellness visit, subsequent - ICD9: V70.0, ICD10: Z00.00 (primary diagnosis) - Counseled on healthy diet and regular exercise 2. Osteoporosis, unspecified osteoporosis type, unspecified pathological fracture presence - ICD9: 733.00, ICD10: M81.0 She reports a prior history of osteoporosis for which she took Fosamax x 5 years. Has been on for many years now. BMD 2023 showed osteoporosis. - Reviewed the need for Calcium and Vitamin D supplements and weight bearing exercise as tolerated - CONSULT TO ENDOCRINOLOGY to discuss options for osteoporosis teatment. 3. Crohn's disease without complication, unspecified gastrointestinal tract location (HCC) - ICD9: 555.9, ICD10: K50.90 4. Screening for colon cancer - ICD9: V76.51, ICD10: Z12.11 She gets colonoscopies completed by a coverstitch elastic attacher in [place] Dr. Swan, last was completed in 2019. 5-year follow-up recommended. 5. Encounter for immunization - ICD9: V03.89, ICD10: Z23 - RSV PRINTED PHARMACY INSTRUCTIONS - [facility]RI[facility] PRINTED PHARMACY INSTRUCTIONS 6 mo follow up Chance Kolb MD schedule mammogram this year. colonoscopy this year with coverstitch elastic attacher. Nguyễn Stringer APRN.CNS documented in this encounterK[facility] NoteHNO ID: [id number] Author: NGUYỄN STRINGER APRN.CNS Service: ? Author Type: Nurse Specialist Type: Progress Notes Filed: 05/04/2025 15:17 Note Text: Geraldine Hairston is a 74 year old female here for a Medicare wellness visit. Medicare Health Risk Assessment General Health Good Exercise: Minutes/Day 10 min Exercise: Days/Week 1 day Alcohol: Daily Use Never Alcohol: Drinks/Day Patient does not drink Alcohol: 6 or more drinks Never Feel off balance Yes Concerns: Teeth/Dentures No Concerns: Sexual function No Troubled by feelings None of the above Frequency: Eating healthy diet Nearly every day ADLs requiring help None of the above Safety precautions in home/vehicle Yes Smoke, vape, chews tobacco No Difficulty hearing Yes, I wear a hearing aid Difficulty seeing Yes Current Providers Specialists: I have reviewed specialist-related care of the patient in the medical record. Dr. Alin Altamirano Purchasing/Receiving Dr. Thom Swan at [facility] follow up. Medical/Family history review Reviewed and updated problem list, medical/surgical/family/social history, medications, and allergies. Opioid use review Opioid Medications (last 90 days) No data to display Anxiety/Depression screening PHQ-2 Score: 1 (Lower risk for depression) Recommendation: no further intervention at this time Cognitive screening Mini Cog Score: 4 Cognitive screening reviewed and No further action needed (score 3-5). Functional Observation Was the patient's Timed Up AND Go test unsteady or >= 12 seconds? No Advance Care Planning Surrogate decision maker and/or advance care plan documented Measurements BP 102/54 Pulse 94 Resp 16 Ht 142 cm (4' 7.91") Wt 41.4 kg (91 lb 4.3 oz) BMI 20.53 kg/m? Vision Screening: Follows with optometry/ophthalmology Latest Ref Rng 12/17/2024 04/29/2025 Protein, Total 6.3 - 8.0 g/dL 7.1 Albumin 3.9 - 4.9 g/dL 4.5 Calcium 8.5 - 10.2 mg/dL 9.4 9.1 Bilirubin, Total 0.2 - 1.3 mg/dL 0.3 Alkaline Phosphatase 34 - 123 U/L 58 AST 13 - 35 U/L 20 ALT 7 - 38 U/L 21 Glucose 74 - 99 mg/dL 77 144 (H) BUN 7 - 21 mg/dL 20 19 Creatinine 0.58 - 0.96 mg/dL 0.95 0.89 Sodium 136 - 144 mmol/L 141 142 Potassium 3.7 - 5.1 mmol/L 3.3 (L) 4.0 Chloride 98 - 107 mmol/L 102 107 CO2 22 - 30 mmol/L 24 22 Anion Gap 8 - 15 mmol/L 15 13 eGFR >=60 mL/min/1.73m? 63 68 WBC 3.70 - 11.00 k/uL 9.87 RBC 3.90 - 5.20 m/uL 4.55 Hemoglobin 11.5 - 15.5 g/dL 13.9 Hematocrit 36.0 - 46.0 % 42.5 MCV 80.0 - 100.0 fL 93.4 MCH 26.0 - 34.0 pg 30.5 MCHC 30.5 - 36.0 g/dL 32.7 RDW-CV 11.5 - 15.0 % 13.9 Platelet Count 150 - 400 k/uL 266 MPV 9.0 - 12.7 fL 10.4 Absolute nRBC <0.01 k/uL <0.01 Cholesterol, Total <200 mg/dL 305 (H) Triglyceride <150 mg/dL 95 HDL Cholesterol >39 mg/dL 114 Non HDL Cholesterol <130 mg/dL 191 (H) Fasting Time hrs 12 VLDL Cholesterol <30 mg/dL 19 TC:HDL Ratio <5.10 2.68 LDL Cholesterol, Calculated <100 mg/dL 172 (H) LDL:HDL Ratio <2.54 1.51 Vitamin D 25 Hydroxy 31.0 - 80.0 ng/mL 100.0 (H) 77.2 Magnesium 1.7 - 2.3 mg/dL 2.0 TSH 0.270 - 4.200 mIU/L 1.940 Free T4 0.9 - 1.7 ng/dL 1.3 Free T3 2.3 - 4.1 pg/mL 2.2 (L) Assessment/Plan Medicare annual wellness visit, subsequent (Z00.00) - Counseled on healthy diet and regular exercise - Fall avoidance information provided - Personalized prevention plan provided ASSESSMENT/PLAN: 1. Medicare annual wellness visit, subsequent - ICD9: V70.0, ICD10: Z00.00 (primary diagnosis) - Counseled on healthy diet and regular exercise 2. Osteoporosis, unspecified osteoporosis type, unspecified pathological fracture presence - ICD9: 733.00, ICD10: M81.0 She reports a prior history of osteoporosis for which she took Fosamax x 5 years. Has been on for many years now. BMD 2023 showed osteoporosis. - Reviewed the need for Calcium and Vitamin D supplements and weight bearing exercise as tolerated - CONSULT TO ENDOCRINOLOGY to discuss options for osteoporosis teatment. 3. Crohn's disease without complication, unspecified gastrointestinal tract location (HCC) - ICD9: 555.9, ICD10: K50.90 4. Screening for colon cancer - ICD9: V76.51, ICD10: Z12.11 She gets colonoscopies completed by a coverstitch elastic attacher in [place] Dr. Swan, last was completed in 2019. 5-year follow-up recommended. 5. Encounter for immunization - ICD9: V03.89, ICD10: Z23 - RSV PRINTED PHARMACY INSTRUCTIONS - [facility]RI[facility] PRINTED PHARMACY INSTRUCTIONS 6 mo follow up Chance Kolb MD schedule mammogram this year. colonoscopy this year with coverstitch elastic attacher. Nguyễn Stringer APRN.[facility]08-26-2025 Instructions* Patient Instructions* Nguyễn Stringer APRN.LEAD BURNER SUPERVISOR - 05/04/2025 12:39 PM EDT Screening schedule The following prevention plan is recommended: Shingrix Vaccine(2 of 3) due on 06/19/2016 Medicare Annual Wellness Visit Never done Advance Directive Discussion due on 09/09/2024 RSV Vaccine(1 - 1-dose 75+ series) Never done Colorectal Cancer Screening due on 02/07/2025 WHAT YOU CAN DO TO PREVENT FALLS Many falls can be prevented. By making some changes, you can lower your chances of falling. Four things YOU can do to prevent falls for you* and your caregiver 1. Begin a regular exercise program Exercise is one of the most important ways to lower your chances of falling. It makes you stronger and helps you feel better. Exercises that improve balance and coordination (like Lamont Chi) are the most helpful. Lack of exercise leads to weakness and increases your chances of falling. Ask your doctor or health care provider about the best type of exercise program for you. 2. Have your health care provider review your medicines Have your doctor or pharmacist review all the medicines you take, even gvph-ymm-xptbevw medicines. As you get older, the way medicines work in your body can change. Some medicines, or combinations of medicines, can make you sleepy or dizzy andcan cause you to fall. 3. Have your vision checked Have your eyes checked by an eye doctor at least once a year. You may be wearing the wrong glasses or have a condition like glaucoma or cataracts that limits your vision. Poor vision can increase your chances of falling. 4. Make your home safer About half of all falls happen at home. To make your home safer: Remove things you can trip over (like papers, books, clothes, and shoes) from stairs and places where you walk. Remove small throw rugs or use double-sided tape to keep the rugs from slipping. Keep items you use often in cabinets you can reach easily without using a step stool. Have grab bars put in next to your toilet and in the tub or shower. Use non-slip mats in the bathtub and on shower floors. Improve the lighting in your home. As you get older, you need brighter lights to see well. Hang light-weight curtains or shades to reduce glare. Have handrails and lights put in on all staircases. Wear shoes both inside and outside the house. Avoid going barefoot or wearing slippers. For more information, contact: Centers for Disease Control and Prevention www.cdc.gov/injury * This information may not apply if you have certain medical conditions. documented in this encounterK[facility]08-13-2025 History and physical note Author Cedric Gibbons [facility] Note Date/Time April 21, 2025 5: 59pm [facility] [address] [place] [address] H&P Exam - Wound Care 04/21/25 1750 MR#: [id number] Acct: [id number] Name: GERALDINE HAIRSTON Rep #:[id number] : 1950 74 From: Cedric Worthington PCP: Dr. Chance Kolb MD Status:RE G RCR Location: History of Present Illness Date of Service: 04/20/25 Chief Complaint: Traumatic avulsion injury of the right medial calf History of Wound: This is a 74-year-old female who sustained a traumatic injury to her left medial calf on January 01, 2025. At the time of her injury, she presented to the [facility] Emergency Department, where she was found to have an avulsion injury with a significant adherent cutaneous flap. The injury was caused by the nails of her dog, who had jumped off the couch. Inthe Emergency Department, the flap was sutured in place using seven 5-0 nylon sutures. The patient was placed on Keflex and Augmentin orally, and was discharged. The patient is generally healthy for her age, though has a history of vfve-cspv-whlabexazuzknrt, GERD, hypertension, hypothyroidism, and osteoporosis. She denies a history of diabetes mellitus, myocardial infarction,cerebrovascular accident, renal disease, and pulmonary disease. Her BMI is 19.5. She is . Since the patient's initial presentation, the traumatic injury on her left calf has healed, and she has sustained a similar injury to the right medial calf, for which she remains a patient at the Wound Center. 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 left calf with fat layer exposed Traumatic open wound of lower leg Avulsion injury GERD (gastroesophageal reflux disease) HTN (hypertension) Hypothyroidism Depression Anxiety Home Medications ?Medication ?Instructions ?Recorded ?Last Taken ?Type levothyroxine 25 mcg tablet 25 mcg PO DAILY Check with primary 02/07/15 09/29/16 09:00 History doctor Bacillus coagulans-inulin 1 1 ea PO DAILY Check with p altaary 12/07/15 09/29/16 09:00 History billion cell-250 mg capsule doctor (Probiotic Formula (inulin)) gabapentin 100 mg capsule 600 mg PO BID Check with loretta deyanira 12/07/15 09/29/16 21:00 History doctor nifedipine 60 mg tablet,extended 180 mg PO DAILY Check with primary 12/07/15 09/29/16 09:00 History release 24 hr doctor pantoprazole 20 mg tablet,delayed 20 mg PO DAILY [facility] 12/07/15 09/29/16 09:00 History release paroxetine HCl 25 mg 75 mg PO DAILY depression 09/29/16 09:00 History tablet,extended release 24 hr (Paxil CR) aspirin 325 mg tablet,delayed 325 mg PO DAILY HEART 09/29/16 09:00 History release buspirone 5 mg tablet 30 mg PO BID Check with prim lesley 04/26/16 09/29/16 21:00 History doctor budesonide 3 mg 9 mg PO DAILY Check with loretta deyanira 09/30/16 Unknown History capsule,delayed,extended release doctor (Entocort EC) lorazepam 0.5 mg tablet 0.5 mg PO Q6H PRN PRN Anxiet y ##10 10/03/16 Unknown Rx dicyclomine 20 mg tablet 20 mg PO TID Check with prim lesley 09/02/22 Unknown History doctor Metamucil Check with primary doctor Unknown History food supplemt, lactose-reduced 120 ml PO 4X/DAY Check with 09/07/22 Unknown History 0.08 gram-1.5 kcal/mL oral liquid primary doctor (Ensure Enlive) loperamide 2 mg tablet 2 mg PO Q6H PRN Constipation 09/07/22 Unknown History omeprazole 40 mg PO/SL DAILY Check with 09/07/22 Unknown History primary doctor atorvastatin 80 mg tablet 20 mg (1/4 x 80 mg) PO QHS # 30 tabs 09/08/22 Unknown Rx cyclobenzaprine 5 mg tablet 5 mg PO TID PRN muscle spa sm #14 03/18/25 Unknown Rx tabs ondansetron 4 mg disintegrating 4 mg PO Q6H PRN nausea and 07/10/25 Unknown Rx tablet vomiting #20 tabs oxycodone-acetaminophen 5 mg-325 1 tab PO Q6H PRN pain 2 days #8 03/18/25 Unknown Rx mg tablet (Endocet) tabs Allergy/AdvReac Type Severity Reaction Status Date / Time acetaminophen (From Percocet) Allergy Other Verified 03/13/25 19:15 oxycodone (From Percocet) Allergy Other Verified 03/13/25 19:15 codeine AdvReac Nausea & Verified 03/13/25 19:15 dizziness oxycodone HCl (From Percocet) AdvReac Nausea & Verified 03/13/25 19:15 dizziness Family History Father Diabetes Dementia Surgical History S/P ORIF (open reduction internal fixation) fracture History of surgery on wrist History of cataract surgery History of ankle surgery Social History household members: none Smoking Status: Never smoker substance use type: does not use Physical Exam Const alert, oriented x3, no apparent distress, average body habitus and no limitations Constitutional Narrative: The patient's BMI is 19.5. She is thin and petite. General Appearance: cooperative, comfortable, well kempt and well developed Orientation / Consciousness: awake, oriented to person, oriented to place and oriented to time Exam Limitations: no limitations HEENT normocephalic and head/scalp atraumatic Head and Scalp: normal to inspection, normocephalic and atraumatic Face and Sinus: normal facial exam Nose: external nose normal External Ear: external ears normal Eyes EOMs intact bilaterally General Eye: normal appearance of both eyes Neck full ROM Resp normal respiratory effort, normal air movement, no retractions and no use of accessory muscles Effort and Inspection: able to speak in complete sentences Extremity General Extremity: Negative for clubbing or cyanosis Skin Wound Narrative: The traumatic wound on the patient's left medial calf remains completely healed and epithelialized. However, the patient sustained a wound on her right calf asresult of an injury caused by her dog. She was seen and evaluated in the [facility] Emergency Department on March 13, 2025, at which time she was found to have a triangular-shaped laceration/avulsion injury on her right calf. Seven 4-0 Ethilon sutures were used to reapproximate the avulsion flap. The patient was placed on cephalexin and Augmentin orally. The sut[facility], which were placed in the Emergency Department, [facility] [place] Since that time, the traumatic flap has largely necrosed due to ischemia. An open wound persists at the site, which appears to be full-thickness in nature. It extends through all layers of the dermis and into the subcutaneous tissues. Wound margins are well beveled. There is a small amount of slough and bioburden. [place] healthy granulation tissue is also noted. Dimensions are documented elsewhere. The wound has progressively diminished in size. There is no sign of infection or cellulitis. No significant swelling or edema are noted in the lower extremities. Neuro oriented x3, CN's II-XII intact bilaterally, moves all extremities, no focal motor deficits and no sensory deficits noted Sensorium / Orientation: awake, alert, oriented to person, oriented to place andoriented to time Speech: speech normal Psych Appearance: grossly normal and appropriate Attitude: calm Activity / Motor Behavior: appropriate eye contact Speech: normal speech Mood & Affect: euthymic mood Thought Process: normal thought process Thought Content: normal thought content Attention / Concentration: attention grossly intact Debridement Note Debridement Note Wound debrided: Right medial calf wound Laterality: Right Type of Debridement: Excisional debridement Anesthesia Used: 5% Lidocaine Gel Depth: Down to and including healthy tissue and in the subcutaneous layer Percentage of wound debrided: 100 Instrument Used: 3mm curette Tissue Removed: Slough and bioburden Severity: Fat Layer Exposed Amount of bleeding with debridement: Mild Bleeding Controlled with: Compression and gauze Patient tolerated procedure: Patient tolerated procedure well Post-Debridement Measurements and Additional Note: Post-Debridement Measurements/Treatment - Nurse 1 - General Ulcer Assessment Start: 04/20/25 13:14 Freq: Status: Active Protocol: NATHALIE Activity Type Activity Date Activity User E-sign Co-sign Detail Recorded Client Recorded Date Recorded By Document 04/20/25 13:14 [facility] [id number] 04/20/25 13:20 [facility] 04/20/25 13:14 - Today's Visit Information Type of service Follow-up Visit (Physician/DEALERSHIP MANAGER ) Arrival Mode Ambulatory Transfer Assistance None Patient Identification Verified (Name & Yes ) Patient Requires Transmission-Based No Precautions Vital Signs Temperature (97.8 F-99.1 F) 98 F Temperature Source Temporal Pulse Rate (60-100) 96 Pulse Location Monitor Respiratory Rate (12-18) 16 Respiratory rate source Observation Oxygen Delivery Method Room Air Blood Pressure (90/60-120/80) 98/65 Blood Pressure Mean 76 Source Monitor Position Sitting Blood Pressure Location Right Arm History Since Last Visit- (Skip if this is Patient's initial visit) Have you changed medications since your No last visit? Any new allergies or adverse reactions No Had a fall/change in ADL's that may No increase risk of falls Signs or symptoms of abuse and/or No neglect since last visit Have you been in the hospital since your No last visit? Has dressing in place as prescribed No Has compression in place as prescribed No Has offloadiing in place as prescribed N/A Experienced any changes in pain level or No management Left Footwear Regular Shoe Right Footwear Regular Shoe Pain Scale: 0-10 Numeric Is Patient Pain Free? Yes - Nurse 1 - General Ulcer Measurement Start: 04/20/25 13:14 Freq: Status: Active Protocol: Activity Type Activity Date Activity User E-sign Co-sign Detail Recorded Client Recorded Date Recorded By Document 04/20/25 13:14 [facility] [id number] 04/20/25 13:20 [facility] 04/20/25 13:14 Wound Center Nurse 1 #2- R LAT LEG- DOG SCRATCH -Combined with other wound No -Current Size (cm) - Length 0.1 -Current Size (cm) - Width 0.1 -Current Size (cm) - Depth 0.1 -Total Square Cm 0.01 -Date of Last Picture (Recall this 04/20/25 field) -Epithelialization Large 67-100% -Tunneling No -Undermining/Tunneling No -Circular Undermining No -Exudate Amt None Present -Wound Margin Distinct, Outline Attached -Granulation Amt None Present (0 %) -Slough/Fibrin Yes -Necrosis Amt Small (1-33%) -Necrotic Tissue Type Eschar -Texture (Maylin-wound Skin Appearance) Assessed -Moisture (Maylin-wound Skin Appearance) Assessed,Dry/ Scaly -Color (Maylin-wound Skin Appearance) Assessed -Temperature (Maylin-wound Skin No Abnormality Appearance) (Pt Warm) -Tenderness on Palpation (Maylin-wound No Skin Appearance) -Ulcer Cleansing Rinsed/ Irrigated with Saline -Foul Odor after Cleansing No -Anesthetic Used 5% Lidocaine Gel -Wound Comment(s) SMALL SCAB Lower Limb Edema Present Yes Right Calf (cm) 30.5 Right Ankle (cm) 20 Left Calf (cm) 30.5 Left Ankle (cm) 19.5 WC - Nurse 2 - General Ulcer CM Notes Start: 04/20/25 13:14 Freq: Status: Active Protocol: Activity Type Activity Date Activity User E-sign Co-sign Detail Recorded Client Recorded Date Recorded By Document 04/20/25 13:30 [id number] 04/20/25 13:34 04/20/25 13:30 Wound Center Nurse 2 #2- R LAT LEG- DOG SCRATCH -Time 13:32 -Correct Patient Yes -Correct Side, Site, Position Yes -Correct Procedure Yes -Procedure Performed Yes -Type of Procedure Debridement -Clinical Debridement Subcutaneous -Tissue Removed Subcutaneous -Post Debridement (cm) - Length 0.4 -Post Debridement (cm) - Width 0.3 -Post Debridement (cm) - Depth 0.1 -Total Square (Post) (cm) 0.12 -Area of Debridement (cm) - Length 0.4 -Area of Debridement (cm) - Width 0.3 -Total Square (Area) (cm) 0.12 -Tunneling No -Undermining/Tunneling No -Circular Undermining No -Wound/Ulcer Outcome Not Healed -Ulcer Cleansing Rinsed/ Irrigated with Saline -Foul Odor after Cleansing No -Bioengineered Tissue No -Bleeding Controlled with Pressure -Treatment Response Procedure Tolerated Well -Offloading No -Debridement - Subq, 1st 20sq cm Yes Pain Scale: 0-10 Numeric Is Patient Pain Free? Yes - Nurse 3 - General Ulcer D/C NN Start: 04/20/25 13:14 Freq: Status: Active Protocol: Activity Type Activity Date Activity User E-sign Co-sign Detail Recorded Client Recorded Date Recorded By Document 04/20/25 13:39 [facility] [id number] 04/20/25 13:39 [facility] 04/20/25 13:39 Wound Care Center Nurse 3 #2- R LAT LEG- DOG SCRATCH -Ulcer Cleansing Rinsed/ Irrigated with Saline -Foul Odor after Cleansing No -Primary Dressing Applied C Hydrogel, Silicone Border Foam 4x4 -Hydrogel 1 -Silicone Border Foam 4x4 1 Treatment Response Procedure Tolerated Well Pain Scale: 0-10 Numeric Is Patient Pain Free? Yes WC - Visit Discharge Discharge Condition Stable Ambulatory Status Ambulatory,Cane Transportation Private Auto Charges/Coding Procedures Integumentary [id number]: [id number] Esha subq tissue 20 sq cm/< Assessment/Plan Assessment/Plan (1) Non-pressure chronic ulcer of right calf with fat layer exposed: CODE(S): L97.212 - Non-pressure chronic ulcer of right calf with fat layerexposed (2) Traumatic open wound of lower leg: CODE(S): S81.809A - Unspecified open wound, unspecified lower leg, initialencounter QUALIFIERS: Encounter type: subsequent encounter Laterality: right Qualified Code(s): S81.801D - Unspecified open wound, right lower leg, subsequent encounter (3) S/P ORIF (open reduction internal fixation) fracture: CODE(S): Z96.7 - Presence of other bone and tendon implants; Z87.81 - Personal history of (healed) traumatic fracture (4) S/P ORIF (open reduction internal fixation) fracture: CODE(S): Z98.890 - Other specified postprocedural states; Z87.81 - Personal history of (healed) traumatic fracture (5) History of surgery on wrist: CODE(S): Z98.890 - Other specified postprocedural states (6) History of cataract surgery: CODE(S): Z98.49 - Cataract extraction status, unspecified eye (7) History of ankle surgery: CODE(S): Z98.890 - Other specified postprocedural states (8) Hypothyroidism: CODE(S): E03.9 - Hypothyroidism, unspecified QUALIFIERS: Hypothyroidism type: acquired Qualified Code(s): E03.9 - Hypothyroidism, unspecified (9) Raynaud phenomenon: CODE(S): I73.00 - Raynaud's syndrome without gangrene QUALIFIERS: Raynaud?s-associated gangrene presence: without gangrene Qualified Code(s): I73.00 - Raynaud's syndrome without gangrene (10) Osteoporosis: CODE(S): M81.0 - Age-related osteoporosis without current pathological fracture (11) Sipd-tbhm-henfvkzazszomrf: 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 The injury occurred when thepatient's dog traumatized her leg with its nails. Due to management at the [facility], the wound on the left calf has completely healed and epithelialized. However, the patient subsequently sustained a wound on her right calf as the result of a similar injury caused by her dog. She was seen and evaluated in the [facility] Emergency[facility] on March 13, 2025, at which time she was found to have a triangular-shaped laceration/avulsion injury on her right calf. Seven 4-0 Ethilon sutures were used to reapproximate the avulsion flap. The patient was placed on cephalexin and Augmentin orally. The sutures, which were placed in the Emergency Department, were removed on March 22, 2025, at the [facility] in [place]. The avulsion flap has not survived due to ischemia, and has necrosed, leaving an open, full-thickness wound at the site. The wound has decreased in size progressively. We are to implement the use of collagen hydrogel topically on a daily basis. The patient has been instructed in the appropriate means of application. The patient is to return in 2 weeks for reevaluation. The patienthas been counseled to elevate her lower extremities as much as possible, to remain active, and to avoid prolonged, idle sitting. She has been advised to optimize her nutritional intake, and is using Huy as a supplement. Total time: 25 minutes 04/21/251758 <Electronically signed by Cedric Gibbons MD> Cosigner Signature (if applicable): CC: ~ Signed [facility] Work Phone: [phone] [phone] History and physical note [facility] [address] [place] [address] H&P Exam - Wound Care 04/21/25 175 MR#: [id number] Acct: [id number] Name: GERALDINE HAIRSTON Rep #:[id number] : 1950 74 From: Cedric Worthington PCP: Dr. Chance Kolb MD Status:RE G RCR Location: History of Present Illness Date of Service: 04/20/25 Chief Complaint: Traumatic avulsion injury of the right medial calf History of Wound: This is a 74-year-old female who sustained a traumatic injury to her left medial calf on January 01, 2025. At the time of her injury, she presented to the [facility] Emergency Department, where she was found to have an avulsion injury with a significant adherent cutaneous flap. The injury was caused by the nails of her dog, who had jumped off the couch. Inthe Emergency Department, the flap was sutured in place using seven 5-0 nylon sutures. The patient was placedon Keflex and Augmentin orally, and was discharged. The patient is generally healthy for her age, though has a history of gfze-hosb-xnnvxcpcvoshsah, GERD, hypertension, hypothyroidism, and osteoporosis. She denies a history of diabetes mellitus, myocardial infarction,cerebrovascular accident, renaldisease, and pulmonary disease. Her BMI is 19.5. She is . Since the patient's initial presentation, the traumatic injury on her left calf has healed, and she has sustained a similar injury to the right medial calf, for which she remains a patient at the Wound Center. 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 left calf with fat layer exposed Traumatic open wound of lower leg Avulsion injury GERD (gastroesophageal reflux disease) HTN (hypertension) Hypothyroidism Depression Anxiety Home Medications ?Medication ?Instructions ?Recorded ?Last Taken ?Type levothyroxine 25 mcg tablet 25 mcg PO DAILY Check with primary 02/07/15 09/29/16 09:00 History doctor Bacillus coagulans-inulin 1 1 ea PO DAILY Check with jesus cheung 12/07/15 09/29/16 09:00 History billion cell-250 mg capsule doctor (Probiotic Formula (inulin)) gabapentin 100 mg capsule 600 mg PO BID Check with loretta mcmillan 12/07/15 09/29/16 21:00 History doctor nifedipine 60 mg tablet,extended 180 mg PO DAILY Check with primary 12/07/15 09/29/16 09:00 History release 24 hr doctor pantoprazole 20 mg tablet,delayed 20 mg PO DAILY [facility] 12/07/15 09/29/16 09:00 History release paroxetine HCl 25 mg 75 mg PO DAILY depression 09/29/16 09:00 History tablet,extended release 24 hr (Paxil CR) aspirin 325 mg tablet,delayed 325 mg PO DAILY HEART 09/29/16 09:00 History release buspirone 5 mg tablet 30 mg PO BID Check with prim lesley 04/26/16 09/29/16 21:00 History doctor budesonide 3 mg 9 mg PO DAILY Check with loretta deyanira 09/30/16 Unknown History capsule,delayed,extended release doctor (Entjerri WHITLOCK) lorazepam 0.5 mg tablet 0.5 mg PO Q6H PRN PRN Anxiet y ##10 10/03/16 Unknown Rx dicyclomine 20 mg tablet 20 mg PO TID Check with prim lesley 09/02/22 Unknown History doctor Metamucil Check with primary doctor Unknown History food supplemt, lactose-reduced 120 ml PO 4X/DAY Check with 09/07/22 Unknown History 0.08 gram-1.5 kcal/mL oral liquid primary doctor (Ensure Enlive) loperamide 2 mg tablet 2 mg PO Q6H PRN Constipation 09/07/22 Unknown History omeprazole 40 mg PO/SL DAILY Check with 09/07/22 Unknown History primary doctor atorvastatin 80 mg tablet 20 mg (1/4 x 80 mg) PO QHS # 30 tabs 09/08/22 Unknown Rx cyclobenzaprine 5 mg tablet 5 mg PO TID PRN muscle spa sm #14 03/18/25 Unknown Rx tabs ondansetron 4 mg disintegrating 4 mg PO Q6H PRN nausea and 03/18/25 Unknown Rx tablet vomiting #20 tabs oxycodone-acetaminophen 5 mg-325 1 tab PO Q6H PRN pain 2 days #8 03/18/25 Unknown Rx mg tablet (Endocet) tabs Allergy/AdvReac Type Severity Reaction Status Date / Time acetaminophen (From Percocet) Allergy Other Verified 03/13/25 19:15 oxycodone (From Percocet) Allergy Other Verified 03/13/25 19:15 codeine AdvReac Nausea & Verified 03/13/25 19:15 dizziness oxycodone HCl (From Percocet) AdvReac Nausea & Verified 03/13/25 19:15 dizziness Family History Father Diabetes Dementia Surgical History S/P ORIF (open reduction internal fixation) fracture History of surgery on wrist History of cataract surgery History of ankle surgery Social History household members: none Smoking Status: Never smoker substance use type: does not use Physical Exam Const alert, oriented x3, no apparent distress, average body habitus and no limitations Constitutional Narrative: The patient's BMI is 19.5. She is thin and petite. General Appearance: cooperative, comfortable, well kempt and well developed Orientation / Consciousness: awake, oriented to person, oriented to place and oriented to time Exam Limitations: no limitations HEENT normocephalic and head/scalp atraumatic Head and Scalp: normal to inspection, normocephalic and atraumatic Face and Sinus: normal facial exam Nose: external nose normal External Ear: external ears normal Eyes EOMs intact bilaterally General Eye: normal appearance of both eyes Neck full ROM Resp normal respiratory effort, normal air movement, no retractions and no use of accessory muscles Effort and Inspection: able to speak in complete sentences Extremity General Extremity: Negative for clubbing or cyanosis Skin Wound Narrative: The traumatic wound on the patient's left medial calf remains completely healed and epithelialized.However, the patient sustained a wound on her right calf asresult of an injury caused by her dog. She was seen and evaluated in the [facility] Emergency Department on March 13, 2025, atwhich time she was found to have a triangular-shaped laceration/avulsion injury on her right calf. Seven 4-0 Ethilon sutures were used to reapproximate the avulsion flap. The patient was placed on cephalexin and Augmentin orally. The sut[facility], which were placed in the Emergency Department, [facility] [place] Since that time, the traumatic flap has larg johnny necrosed due to ischemia. An open wound persists at the site, which appears to be full-thickness in nature. It extends through all layers of the dermis and into the subcutaneous tissues. Wound margins are well beveled. There is a small amount of slough and bioburden. [place] healthy granulation tissue is also noted. Dimensions are documented elsewhere. The wound has progressively diminished in size. There is no sign of infection or cellulitis. No significant swelling or edema are noted in the lower extremities. Neuro oriented x3, CN's II-XII intact bilaterally, moves all extremities, no focal motor deficits and no sensory deficits noted Sensorium / Orientation: awake, alert, oriented to person, oriented to place andoriented to time Speech: speech normal Psych Appearance: grossly normal and appropriate Attitude: calm Activity / Motor Behavior: appropriate eye contact Speech: normal speech Mood & Affect: euthymic mood Thought Process: normal thought process Thought Content: normal thought content Attention / Concentration: attention grossly intact Debridement Note Debridement Note Wound debrided: Right medial calf wound Laterality: Right Type of Debridement: Excisional debridement Anesthesia Used: 5% Lidocaine Gel Depth: Down to and including healthy tissue and in the subcutaneous layer Percentage of wound debrided: 100 Instrument Used: 3mm curette Tissue Removed: Slough and bioburden Severity: Fat Layer Exposed Amount of bleeding with debridement: Mild Bleeding Controlled with: Compression and gauze Patient tolerated procedure: Patient tolerated procedure well Post-Debridement Measurements and Additional Note: Post-Debridement Measurements/Treatment - Nurse 1 - General Ulcer Assessment Start: 04/20/25 13:14 Freq: Status: Active Protocol: .MARYLOU Activity Type Activity Date Activity User E-sign Co-sign Detail Recorded Client Recorded Date Recorded By Document 04/20/25 13:14 [facility] [id number] 04/20/25 13:20 [facility] 04/20/25 13:14 - Today's Visit Information Type of service Follow-up Visit (Physician/DEALERSHIP MANAGER ) Arrival Mode Ambulatory Transfer Assistance None Patient Identification Verified (Name & Yes ) Patient Requires Transmission-Based No Precautions Vital Signs Temperature (97.8 F-99.1 F) 98 F Temperature Source Temporal Pulse Rate (60-100) 96 Pulse Location Monitor Respiratory Rate (12-18) 16 Respiratory rate source Observation Oxygen Delivery Method Room Air Blood Pressure (90/60-120/80) 98/65 Blood Pressure Mean 76 Source Monitor Position Sitting Blood Pressure Location Right Arm History Since Last Visit- (Skip if this is Patient's initial visit) Have you changed medications since your No last visit? Any new allergies or adverse reactions No Had a fall/change in ADL's that may No increase risk of falls Signs or symptoms of abuse and/or No neglect since last visit Have you been in the hospital since your No last visit? Has dressing in place as prescribed No Has compression in place as prescribed No Has offloadiing in place as prescribed N/A Experienced any changes in pain level or No management Left Footwear Regular Shoe Right Footwear Regular Shoe Pain Scale: 0-10 Numeric Is Patient Pain Free? Yes - Nurse 1 - General Ulcer Measurement Start: 04/20/25 13:14 Freq: Status: Active Protocol: Activity Type Activity Date Activity User E-sign Co-sign Detail Recorded Client Recorded Date Recorded By Document 04/20/25 13:14 [facility] [id number] 04/20/25 13:20 [facility] 04/20/25 13:14 Wound Center Nurse 1 #2- R LAT LEG- DOG SCRATCH -Combined with other wound No -Current Size (cm) - Length 0.1 -Current Size (cm) - Width 0.1 -Current Size (cm) - Depth 0.1 -Total Square Cm 0.01 -Date of Last Picture (Recall this 04/20/25 field) -Epithelialization Large 67-100% -Tunneling No -Undermining/Tunneling No -Circular Undermining No -Exudate Amt None Present -Wound Margin Distinct, Outline Attached -Granulation Amt None Present (0 %) -Slough/Fibrin Yes -Necrosis Amt Small (1-33%) -Necrotic Tissue Type Eschar -Texture (Maylin-wound Skin Appearance) Assessed -Moisture (Maylin-wound Skin Appearance) Assessed,Dry/ Scaly -Color (Maylin-wound Skin Appearance) Assessed -Temperature (Maylin-wound Skin No Abnormality Appearance) (Pt Warm) -Tenderness on Palpation (Maylin-wound No Skin Appearance) -Ulcer Cleansing Rinsed/ Irrigated with Saline -Foul Odor after Cleansing No -Anesthetic Used 5% Lidocaine Gel -Wound Comment(s) SMALL SCAB Lower Limb Edema Present Yes Right Calf (cm) 30.5 Right Ankle (cm) 20 Left Calf (cm) 30.5 Left Ankle (cm) 19.5 WC - Nurse 2 - General Ulcer CM Notes Start: 04/20/25 13:14 Freq: Status: Active Protocol: Activity Type Activity Date Activity User E-sign Co-sign Detail Recorded Client Recorded Date Recorded By Document 04/20/25 13:30 [id number] 04/20/25 13:34 04/20/25 13:30 Wound Center Nurse 2 #2- R LAT LEG- DOG SCRATCH -Time 13:32 -Correct Patient Yes -Correct Side, Site, Position Yes -Correct Procedure Yes -Procedure Performed Yes -Type of Procedure Debridement -Clinical Debridement Subcutaneous -Tissue Removed Subcutaneous -Post Debridement (cm) - Length 0.4 -Post Debridement (cm) - Width 0.3 -Post Debridement (cm) - Depth 0.1 -Total Square (Post) (cm) 0.12 -Area of Debridement (cm) - Length 0.4 -Area of Debridement (cm) - Width 0.3 -Total Square (Area) (cm) 0.12 -Tunneling No -Undermining/Tunneling No -Circular Undermining No -Wound/Ulcer Outcome Not Healed -Ulcer Cleansing Rinsed/ Irrigated with Saline -Foul Odor after Cleansing No -Bioengineered Tissue No -Bleeding Controlled with Pressure -Treatment Response Procedure Tolerated Well -Offloading No -Debridement - Subq, 1st 20sq cm Yes Pain Scale: 0-10 Numeric Is Patient Pain Free? Yes - Nurse 3 - General Ulcer D/C NN Start: 04/20/25 13:14 Freq: Status: Active Protocol: Activity Type Activity Date Activity User E-sign Co-sign Detail Recorded Client Recorded Date Recorded By Document 04/20/25 13:39 [facility] [id number] 04/20/25 13:39 [facility] 04/20/25 13:39 [facility] Nurse 3 #2- R LAT LEG- DOG SCRATCH -Ulcer Cleansing Rinsed/ Irrigated with Saline -Foul Odor after Cleansing No -Primary Dressing Applied C Hydrogel, Silicone Border Foam 4x4 -Hydrogel 1 -Silicone Border Foam 4x4 1 Treatment Response Procedure Tolerated Well Pain Scale: 0-10 Numeric Is Patient Pain Free? Yes - Visit Discharge Discharge Condition Stable Ambulatory Status Ambulatory,Cane Transportation Private Auto Charges/Coding Procedures Integumentary 111xxx-113xx: 85726 Esha subq tissue 20 sq cm/< Assessment/Plan Assessment/Plan (1) Non-pressure chronic ulcer of right calf with fat layer exposed: CODE(S): L97.212 - Non-pressure chronic ulcer of right calf with fat layerexposed (2) Traumatic open wound of lower leg: CODE(S): S81.809A - Unspecified open wound, unspecified lower leg, initialencounter QUALIFIERS: Encounter type: subsequent encounter Laterality: right Qualified Code(s): S81.801D - Unspecified open wound, right lower leg, subsequent encounter (3) S/P ORIF (open reduction internal fixation) fracture: CODE(S): Z96.7 - Presence of other bone and tendon implants; Z87.81 - Personal history of (healed) traumatic fracture (4) S/P ORIF (open reduction internal fixation) fracture: CODE(S): Z98.890 - Other specified postprocedural states; Z87.81 - Personal history of (healed) traumatic fracture (5) History of surgery on wrist: CODE(S): Z98.890 - Other specified postprocedural states (6) History of cataract surgery: CODE(S): Z98.49 - Cataract extraction status, unspecified eye (7) History of ankle surgery: CODE(S): Z98.890 - Other specified postprocedural states (8) Hypothyroidism: CODE(S): E03.9 - Hypothyroidism, unspecified QUALIFIERS: Hypothyroidism type: acquired Qualified Code(s): E03.9 - Hypothyroidism, unspecified (9) Raynaud phenomenon: CODE(S): I73.00 - Raynaud's syndrome without gangrene QUALIFIERS: Raynaud?s-associated gangrene presence: without gangrene Qualified Code(s): I73.00 - Raynaud's syndrome without gangrene (10) Osteoporosis: CODE(S): M81.0 - Age-related osteoporosis without current pathological fracture (11) Hhcm-ljtl-ovccbqhjbxxegxf: 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 The injury occurred when thepatient's dog traumatized her leg with its nails. Due to management at the [facility], the wound on the left calf has completely healed and epithelialized. However, the patient subsequently sustained a wound on her right calf as the result of a similar injury caused by her dog. [facility], at which time she was found to havea triangular-shaped laceration/avulsion injury on her right calf. Seven 4-0 Ethilon sutures were used to reapproximate the avulsion flap. The patient was placed on cephalexin and Augmentin orally. The sutures, which were placed in the Emergency Department, were removed on March 22, 2025, at the [facility] in [place]. The avulsion flap has not survived due to ischemia, and has necrosed, leaving an open, full-thickness wound at the site. The wound has decreased in size progressively. We are to implement the use of collagen hydrogel topically on a daily basis. The patient has been instructed in the appropriate means of application. The patient is to return in 2 weeks for reevaluation. Thepatienthas been counseled to elevate her lower extremities as much as possible, to remain active, and to avoid prolonged, idle sitting. She has been advised to optimize her nutritional intake, and isusing Huy as a supplement. Total time: 25 minutes 04/21/25 6659 Cosigner Signature (if applicable): CC: ~ Signed [facility]07-24-2025 History and physical note Author Cedric Gibbons [facility] Note Date/Time April 01, 2025 11:5 1am [facility] [address] [place] [address] H&P Exam - Wound Care 04/01/25 1135 MR#: [id number] Acct: [id number] Name: GERALDINE HAIRSTON Elin Rep #:[id number] 17 : 1950 74 From: Cedric Worthington PCP: Dr. Chance Kolb MD Status:[facility] Location: History of Present Illness Date of Service: 03/30/25 Chief Complaint: Traumatic avulsion injury of the left medial calf History of Wound: This is a 74-year-old female who sustained a traumatic injury to her left medial calf on January 01, 2025. At the time of her injury, she presented to the [facility] Emergency Department, where she was found to have an avulsion injury with a significant adherent cutaneous flap. The injury was caused by the nails of her dog, who had jumped off the couch. Inthe Emergency Department, the flap was sutured in place using seven 5-0 nylon sutures. The patient was placed on Keflex and Augmentin orally, and was discharged. The patient is generally healthy for her age, though has a history of zgyl-txlr-qnzropdqeojgnuk, GERD, hypertension, hypothyroidism, and osteoporosis. She denies a history of diabetes mellitus, myocardial infarction,cerebrovascular accident, renal disease, and pulmonary disease. Her BMI is 19.5. She is . 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 left calf with fat layer exposed Traumatic open wound of lower leg Avulsion injury GERD (gastroesophageal reflux disease) HTN (hypertension) Hypothyroidism Depression Anxiety Home Medications ?Medication ?Instructions ?Recorded ?Last Taken ?Type levothyroxine 25 mcg tablet 25 mcg PO DAILY Check with primary 02/07/15 09/29/16 09:00 History doctor Bacillus coagulans-inulin 1 1 ea PO DAILY Check with p altaary 12/07/15 09/29/16 09:00 History billion cell-250 mg capsule doctor (Probiotic Formula (inulin)) gabapentin 100 mg capsule 600 mg PO BID Check with loretta mcmillan 12/07/15 09/29/16 21:00 History doctor nifedipine 60 mg tablet,extended 180 mg PO DAILY Check with primary 12/07/15 09/29/16 09:00 History release 24 hr doctor pantoprazole 20 mg tablet,delayed 20 mg PO DAILY [facility] 12/07/15 09/29/16 09:00 History release paroxetine HCl 25 mg 75 mg PO DAILY depression 09/29/16 09:00 History tablet,extended release 24 hr (Paxil CR) aspirin 325 mg tablet,delayed 325 mg PO DAILY HEART 09/29/16 09:00 History release buspirone 5 mg tablet 30 mg PO BID Check with prim lesley 04/26/16 09/29/16 21:00 History doctor budesonide 3 mg 9 mg PO DAILY Check with loretta mcmillan 09/30/16 Unknown History capsule,delayed,extended release doctor (Entocort EC) lorazepam 0.5 mg tablet 0.5 mg PO Q6H PRN PRN Anxiet y ##10 10/03/16 Unknown Rx dicyclomine 20 mg tablet 20 mg PO TID Check with prim lesley 09/02/22 Unknown History doctor Metamucil Check with primary doctor Unknown History food supplemt, lactose-reduced 120 ml PO 4X/DAY Check with 09/07/22 Unknown History 0.08 gram-1.5 kcal/mL oral liquid primary doctor (Ensure Enlive) loperamide 2 mg tablet 2 mg PO Q6H PRN Constipation 09/07/22 Unknown History omeprazole 40 mg PO/SL DAILY Check with 09/07/22 Unknown History primary doctor atorvastatin 80 mg tablet 20 mg (1/4 x 80 mg) PO QHS # 30 tabs 09/08/22 Unknown Rx cyclobenzaprine 5 mg tablet 5 mg PO TID PRN muscle spa sm #14 03/18/25 Unknown Rx tabs ondansetron 4 mg disintegrating 4 mg PO Q6H PRN nausea and 03/18/25 Unknown Rx tablet vomiting #20 tabs oxycodone-acetaminophen 5 mg-325 1 tab PO Q6H PRN pain 2 days #8 03/18/25 Unknown Rx mg tablet (Endocet) tabs Allergy/AdvReac Type Severity Reaction Status Date / Time acetaminophen (From Percocet) Allergy Other Verified 03/13/25 19:15 oxycodone (From Percocet) Allergy Other Verified 03/13/25 19:15 codeine AdvReac Nausea & Verified 03/13/25 19:15 dizziness oxycodone HCl (From Percocet) AdvReac Nausea & Verified 03/13/25 19:15 dizziness Family History Father Diabetes Dementia Surgical History S/P ORIF (open reduction internal fixation) fracture History of surgery on wrist History of cataract surgery History of ankle surgery Social History household members: none Smoking Status: Never smoker substance use type: does not use Physical Exam Const alert, oriented x3, no apparent distress, average body habitus and no limitations Constitutional Narrative: The patient's BMI is 19.5. General Appearance: cooperative, comfortable, well kempt and well developed Orientation / Consciousness: awake, oriented to person, oriented to place and oriented to time Exam Limitations: no limitations HEENT normocephalic and head/scalp atraumatic Head and Scalp: normal to inspection, normocephalic and atraumatic Face and Sinus: normal facial exam Nose: external nose normal External Ear: external ears normal Eyes EOMs intact bilaterally General Eye: normal appearance of both eyes Neck full ROM Resp normal respiratory effort, normal air movement, no retractions and no use of accessory muscles Effort and Inspection: able to speak in complete sentences Extremity General Extremity: Negative for clubbing or cyanosis Skin Wound Narrative: The traumatic wound on the patient's left medial calf remains completely healed and epithelialized. However, the patient sustained a wound on her right calf asresult of an injury caused by her dog. She was seen and evaluated in the [facility] on March 13, 2025, at which time she was found to have a triangular-shaped laceration/avulsion injury on her right calf. Seven 4-0 Ethilon sutures were used to reapproximate the avulsion flap. The patient was placed on cephalexin and Augmentin orally. The [facility], which were [facility] in the Emergency Department, [facility] [place] Since that time, the traumatic flap has largely necrosed due to ischemia. An open wound persists at the site, which appears to be full-thickness in nature. It extends through all layers of the dermis and into the subcutaneous tissues. Wound margins are well beveled. There is a small amount of slough and bioburden. [place] healthy granulation tissue is also noted. Dimensions are documented elsewhere. There is no sign ofinfection or cellulitis. No significant swelling or edema are noted in the lower extremities. Neuro oriented x3, CN's II-XII intact bilaterally, moves all extremities, no focal motor deficits and no sensory deficits noted Sensorium / Orientation: awake, alert, oriented to person, oriented to place andoriented to time Speech: speech normal Psych Appearance: grossly normal and appropriate Attitude: calm Activity / Motor Behavior: appropriate eye contact Speech: normal speech Mood & Affect: euthymic mood Thought Process: normal thought process Thought Content: normal thought content Attention / Concentration: attention grossly intact Debridement Note Debridement Note Wound debrided: Right calf wound Laterality: Right Type of Debridement: Excisional debridement Anesthesia Used: 5% Lidocaine Gel Depth: Down to and including healthy tissue and in the subcutaneous layer Percentage of wound debrided: 100 Instrument Used: 5mm curette Tissue Removed: Slough and bioburden Severity: Fat Layer Exposed Amount of bleeding with debridement: Mild Bleeding Controlled with: Compression and gauze Patient tolerated procedure: Patient tolerated procedure well Post-Debridement Measurements and Additional Note: Post-Debridement Measurements/Treatment - Nurse 1 - General Ulcer Assessment Start: 03/09/25 12:54 Freq: Status: Active Protocol: NATHALIE Activity Type Activity Date Activity User E-sign Co-sign Detail Recorded Client Recorded Date Recorded By Document 03/09/25 12:55 KW [id number] 03/09/25 12:57 KW Document 03/23/25 13:03 BMF [id number] 03/23/25 13:13 BM Document 03/30/25 13:13 ML [id number] 03/30/25 13:22 ML 03/09/25 03/23/25 03/30/25 12:55 13:03 13:13 - Today's Visit Information Type of service Follow-up Visit Follow-up Visit Follow-up Visit (Physician/DEALERSHIP MANAGER (Physician/DEALERSHIP MANAGER (Physician/DEALERSHIP MANAGER ) ) ) Arrival Mode Ambulatory,Cane Ambulatory Ambulatory Transfer Assistance None None Patient Identification Verified (Name & Yes Yes Yes ) Patient Requires Transmission-Based No No Precautions Vital Signs Temperature (97.8 F-99.1 F) 98.3 F 97.4 F L 97.7 F L Temperature Source Temporal Temporal Temporal Pulse Rate (60-100) 78 83 91 Pulse Location Monitor Monitor Monitor Respiratory Rate (12-18) 18 16 14 Respiratory rate source Observation Observation Observation Oxygen Delivery Method Room Air Room Air Blood Pressure (90/60-120/80) 124/67 H 119/72 112/61 Blood Pressure Mean 86 87 78 Source Monitor Monitor Monitor Position Semi-Fowlers Sitting Sitting Blood Pressure Location Right Arm Right Arm History Since Last Visit- (Skip if this is Patient's initial visit) Have you changed medications since your No No No last visit? Any new allergies or adverse reactions No No No Had a fall/change in ADL's that may No No No increase risk of falls Signs or symptoms of abuse and/or No No No neglect since last visit Have you been in the hospital since your No No No last visit? Has dressing in place as prescribed Yes Yes Yes Has compression in place as prescribed Yes Yes Yes Has offloadiing in place as prescribed N/A N/A No Experienced any changes in pain level or No No No management Left Footwear Regular Shoe Regular Shoe Right Footwear Regular Shoe Regular Shoe Pain Scale: 0-10 Numeric Is Patient Pain Free? Yes Yes Yes WC - Nurse 1 - General Ulcer Measurement Start: 03/09/25 12:54 Freq: Status: Active Protocol: Activity Type Activity Date Activity User E-sign Co-sign Detail Recorded Client Recorded Date Recorded By Document 03/09/25 12:55 KW [id number] 03/09/25 12:57 KW Document 03/23/25 13:03 BMF [id number] 03/23/25 13:13 BMF Document 03/30/25 13:13 ML [id number] 03/30/25 13:22 ML 03/09/25 03/23/25 03/30/25 12:55 13:03 13:13 Wound Center Nurse 1 #2- R LAT LEG- DOG SCRATCH -Combined with other wound No -Current Size (cm) - Length 1 1.8 -Current Size (cm) - Width 0.2 1.8 -Current Size (cm) - Depth 0.1 0.1 -Total Square Cm 0.2 3.24 -Date of Last Picture (Recall this 03/23/25 field) -Photo Taken Yes -Tunneling No -Undermining/Tunneling No -Circular Undermining No -Exudate Amt Medium Small -Exudate Type Serosanguineous Serosanguineous -Wound Margin Distinct, Distinct, Outline Outline Attached Attached -Granulation Amt Medium (34-66%) Small (1-33%) -Granulation Quality Red -Slough/Fibrin Yes Yes -Necrosis Amt Medium (34-66%) Small (1-33%) -Necrotic Tissue Type Adherent Slough Adherent Slough -Texture (Maylin-wound Skin Appearance) Assessed, Assessed Scarring -Moisture (Maylin-wound Skin Appearance) Assessed,Dry/ Assessed Scaly -Color (Maylin-wound Skin Appearance) Assessed Assessed -Temperature (Maylin-wound Skin No Abnormality No Abnormality Appearance) (Pt Warm) (Pt Warm) -Tenderness on Palpation (Maylin-wound No No Skin Appearance) -Ulcer Cleansing Soap and Water Rinsed/ Irrigated with Saline -Foul Odor after Cleansing No No -Anesthetic Used 5% Lidocaine 5% Lidocaine Gel Gel #1 LT MED LE -Combined with other wound No -Current Size (cm) - Length 0.9 0.1 0.1 -Current Size (cm) - Width 1.2 0.1 0.1 -Current Size (cm) - Depth 0.1 0.1 0.1 -Total Square Cm 1.08 0.01 0.01 -Date of Last Picture (Recall this 03/09/25 03/23/25 field) -Photo Taken Yes -Epithelialization Large 67-100% -Exudate Amt Small -Exudate Type Serosanguineous -Wound Margin Distinct, Outline Attached -Granulation Amt None Present (0 %) -Necrosis Amt None Present (0 %) -Texture (Maylin-wound Skin Appearance) Assessed Assessed Assessed -Moisture (Maylin-wound Skin Appearance) Assessed Assessed -Color (Maylin-wound Skin Appearance) Assessed Assessed Assessed -Temperature (Maylin-wound Skin No Abnormality No Abnormality No Abnormality Appearance) (Pt Warm) (Pt Warm) (Pt Warm) -Tenderness on Palpation (Maylin-wound No No No Skin Appearance) -Ulcer Cleansing Rinsed/ Soap and Water Rinsed/ Irrigated with Irrigated with Saline Saline -Foul Odor after Cleansing No No -Anesthetic Used 5% Lidocaine 5% Lidocaine Gel Gel WC - Nurse 2 - General Ulcer CM Notes Start: 03/09/25 12:54 Freq: Status: Active Protocol: Activity Type Activity Date Activity User E-sign Co-sign Detail Recorded Client Recorded Date Recorded By Document 03/09/25 13:03 DS [id number] 03/09/25 13:07 DS Document 03/23/25 13:26 DS [id number] 03/23/25 13:29 DS Document 03/30/25 13:34 DS [id number] 03/30/25 13:38 DS 03/09/25 03/23/25 03/30/25 13:03 13:26 13:34 Wound Center Nurse 2 #2- R LAT LEG- DOG SCRATCH -Time 13:27 13:35 -Correct Patient Yes Yes -Correct Side, Site, Position Yes Yes -Correct Procedure Yes -Procedure Performed No Yes -Type of Procedure Debridement -Clinical Debridement Subcutaneous -Tissue Removed Subcutaneous -Post Debridement (cm) - Length 0.1 1.8 -Post Debridement (cm) - Width 0.1 1.8 -Post Debridement (cm) - Depth 0.1 0.1 -Total Square (Post) (cm) 0.01 3.24 -Area of Debridement (cm) - Length 0.1 1.8 -Area of Debridement (cm) - Width 0.1 1.8 -Total Square (Area) (cm) 0.01 3.24 -Tunneling No No -Undermining/Tunneling No No -Circular Undermining No No -Wound/Ulcer Outcome Not Healed Not Healed -Ulcer Cleansing gauze -Foul Odor after Cleansing No -Bioengineered Tissue No -Bleeding Controlled with Pressure -Treatment Response Procedure Tolerated Well -Debridement - Subq, 1st 20sq cm Yes #1 LT MED LE -Time 13:03 13:27 13:35 -Correct Patient Yes Yes Yes -Correct Side, Site, Position Yes Yes Yes -Correct Procedure Yes -Procedure Performed Yes No No -Type of Procedure Debridement -Clinical Debridement Subcutaneous -Tissue Removed Subcutaneous -Post Debridement (cm) - Length 1.2 0.1 -Post Debridement (cm) - Width 1.5 0.1 -Post Debridement (cm) - Depth 0.1 0.1 -Total Square (Post) (cm) 1.80 0.01 -Area of Debridement (cm) - Length 1.2 0.1 -Area of Debridement (cm) - Width 1.5 0.1 -Total Square (Area) (cm) 1.80 0.01 -Tunneling No No -Undermining/Tunneling No No -Circular Undermining No No -Wound/Ulcer Outcome Not Healed Not Healed Healed- Epithelialized -Ulcer Cleansing gauze -Foul Odor after Cleansing No -Bioengineered Tissue No -Bleeding Controlled with Pressure -Treatment Response Procedure Tolerated Well -Debridement - Subq, 1st 20sq cm Yes Pain Scale: 0-10 Numeric Is Patient Pain Free? Yes Yes Yes WC - Nurse 3 - General Ulcer D/C NN Start: 03/09/25 12:54 Freq: Status: Active Protocol: Activity Type Activity Date Activity User E-sign Co-sign Detail Recorded Client Recorded Date Recorded By Document 03/09/25 13:16 BM [id number] 03/09/25 13:17 BM Document 03/23/25 13:35 KW [id number] 03/23/25 13:35 KW Document 03/30/25 13:46 ML [id number] 03/30/25 13:48 ML 03/09/25 03/23/25 03/30/25 13:16 13:35 13:46 Wound Care Center Nurse 3 #2- R LAT LEG- DOG SCRATCH -Ulcer Cleansing Rinsed/ Irrigated with Saline -Primary Dressing Applied NonAdherent Aquacel Extra Contact Layer -Primary Dressing Covered/Secured with Dry Gauze & Dry Gauze, Roll Gauze, Secured with Secured with Tape Tape -Aquacel Extra 1 #1 LT MED LE -Ulcer Cleansing Rinsed/ Rinsed/ Irrigated with Irrigated with Saline Saline -Foul Odor after Cleansing No -Primary Dressing Applied Aquacel Extra NonAdherent Contact Layer -Other Dressing pad and protect -Primary Dressing Covered/Secured with Dry Gauze & Dry Gauze & Dry Gauze, Roll Gauze, Roll Gauze, Secured with Secured with Secured with Tape Tape Tape -Aquacel Extra 1 LLE -Compression Wrap John Wrap John Wrap -Other 2 4in wraps used Treatment Response Procedure Tolerated Well Pain Scale: 0-10 Numeric Is Patient Pain Free? Yes Yes Yes WC - Visit Discharge Discharge Condition Stable Stable Ambulatory Status Ambulatory,Cane Ambulatory,Cane Transportation Private Auto Private Auto Medication Reconcilliation completed & No provided to patient/care provider Clinical Summary of Care Provided Yes Charges/Coding Procedures Integumentary 111xxx-113xx: 97184 Esha subq tissue 20 sq cm/< Assessment/Plan Assessment/Plan (1) Non-pressure chronic ulcer of right calf with fat layer exposed: CODE(S): L97.212 - Non-pressure chronic ulcer of right calf with fat layerexposed (2) Non-pressure chronic ulcer of left calf with fat layer exposed: CODE(S): L97.222 - Non-pressure chronic ulcer of left calf with fat layer exposed (3) Traumatic open wound of lower leg: CODE(S): S81.809A - Unspecified open wound, unspecified lower leg, initialencounter QUALIFIERS: Encounter type: subsequent encounter Laterality: right Qualified Code(s): S81.801D - Unspecified open wound, right lower leg, subsequent encounter (4) S/P ORIF (open reduction internal fixation) fracture: CODE(S): Z96.7 - Presence of other bone and tendon implants; Z87.81 - Personal history of (healed) traumatic fracture (5) S/P ORIF (open reduction internal fixation) fracture: CODE(S): Z98.890 - Other specified postprocedural states; Z87.81 - Personal history of (healed) traumatic fracture (6) History of surgery on wrist: CODE(S): Z98.890 - Other specified postprocedural states (7) History of cataract surgery: CODE(S): Z98.49 - Cataract extraction status, unspecified eye (8) History of ankle surgery: CODE(S): Z98.890 - Other specified postprocedural states (9) Hypothyroidism: CODE(S): E03.9 - Hypothyroidism, unspecified QUALIFIERS: Hypothyroidism type: acquired Qualified Code(s): E03.9 - Hypothyroidism, unspecified (10) Raynaud phenomenon: CODE(S): I73.00 - Raynaud's syndrome without gangrene QUALIFIERS: Raynaud?s-associated gangrene presence: without gangrene Qualified Code(s): I73.00 - Raynaud's syndrome without gangrene (11) Osteoporosis: CODE(S): M81.0 - Age-related osteoporosis without current pathological fracture (12) Qzcs-uygl-aqiixrbgvsynxog: 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 The injury occurred when thepatient's dog traumatized her leg with its nails. Due to management at the [facility], the wound on the left calf has completely healed and epithelialized. However, the patient has now sustained a wound on her right calf as the result of a similar injury caused by her dog. She was seen and evaluated in the [facility] Emergency Department on March 13, 2025, at which time she was found to have a triangular-shaped laceration/avulsion injury on her right calf. Seven 4-0 Ethilon sutures were used to reapproximate the avulsion flap. The patient was placed on cephalexin and Augmentin orally. The sutures, which were placed in the Emergency Department, were removed on March 22, 2025, at the [facility] in [place]. The avulsion flap has not survived due to ischemia, and has necrosed, leaving an open, full-thickness wound at the site. We are to implement the use of moistened Aquacel Extra topically, to be applied on a daily basis. The patient has been provided product, and instructed in the appropriate means of application. With respect to the healed wound on the left lower extremity, the patient has been instructed to use dry gauze for the purpose of padding and protecting. The patient is to return in 1 week for reevaluation. The patient has been counseled to elevate her lower extremities as much as possible, to remain active, and to avoid prolonged, idle sitting. She has been advised to optimize her nutritional intake, and is using Huy as a supplement. Total time: 24 minutes 04/01/25 1151 <Electronically signed by Cedric Gibbons MD> Cosigner Signature (if applicable): CC: ~ Signed [facility] Work Phone: [phone] History and physical note [facility] [address] [place] [id number] H&P Exam - Wound Care 04/01/25 1135 MR#: [id number] Acct: [id number] Name: GERALDINE HAIRSTON Rep #:[id number] : 1950 74 From: Cedric Worthington PCP: Dr. Chance Kolb MD Status:RE G RCR Location: History of Present Illness Date of Service: 03/30/25 Chief Complaint: Traumatic avulsion injury of the left medial calf History of Wound: This is a 74-year-old female who sustained a traumatic injury to her left medial calf on January 01, 2025. At the time of her injury, she presented to the [facility] Emergency Department, where she was found to have an avulsion injury with a significant adherent cutaneous flap. The injury was caused by the nails of her dog, who had jumped off the couch. Inthe Emergency Department, the flap was sutured in place using seven 5-0 nylon sutures. The patient was placedon Keflex and Augmentin orally, and was discharged. The patient is generally healthy for her age, though has a history of jaqw-btnv-hwgouggthqllrrf, GERD, hypertension, hypothyroidism, and osteoporosis. She denies a history of diabetes mellitus, myocardial infarction,cerebrovascular accident, renaldisease, and pulmonary disease. Her BMI is 19.5. She is . 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 left calf with fat layer exposed Traumatic open wound of lower leg Avulsion injury GERD (gastroesophageal reflux disease) HTN (hypertension) Hypothyroidism Depression Anxiety Home Medications ?Medication ?Instructions ?Recorded ?Last Taken ?Type levothyroxine 25 mcg tablet 25 mcg PO DAILY Check with primary 02/07/15 09/29/16 09:00 History doctor Bacillus coagulans-inulin 1 1 ea PO DAILY Check with p skye 12/07/15 09/29/16 09:00 History billion cell-250 mg capsule doctor (Probiotic Formula (inulin)) gabapentin 100 mg capsule 600 mg PO BID [facility] 12/07/15 09/29/16 21:00 History doctor nifedipine 60 mg tablet,extended 180 mg PO DAILY Check with primary 12/07/15 09/29/16 09:00 History release 24 hr doctor pantoprazole 20 mg tablet,delayed 20 mg PO DAILY [facility] 12/07/15 09/29/16 09:00 History release paroxetine HCl 25 mg 75 mg PO DAILY depression 09/29/16 09:00 History tablet,extended release 24 hr (Paxil CR) aspirin 325 mg tablet,delayed 325 mg PO DAILY HEART 09/29/16 09:00 History release buspirone 5 mg tablet 30 mg PO BID Check with prim lesley 04/26/16 09/29/16 21:00 History doctor budesonide 3 mg 9 mg PO DAILY [facility] 09/30/16 Unknown History capsule,delayed,extended release doctor (Entocort EC) lorazepam 0.5 mg tablet 0.5 mg PO Q6H PRN PRN Anxiet y ##10 10/03/16 Unknown Rx dicyclomine 20 mg tablet 20 mg PO TID Check with [facility] 09/02/22 Unknown History doctor Metamucil Check with primary doctor Unknown History food supplemt, lactose-reduced 120 ml PO 4X/DAY Check with 09/07/22 Unknown History 0.08 gram-1.5 kcal/mL oral liquid primary doctor (Ensure Enlive) loperamide 2 mg tablet 2 mg PO Q6H PRN Constipation 09/07/22 Unknown History omeprazole 40 mg PO/SL DAILY Check with 09/07/22 Unknown History primary doctor atorvastatin 80 mg tablet 20 mg (1/4 x 80 mg) PO QHS # 30 tabs 09/08/22 Unknown Rx cyclobenzaprine 5 mg tablet 5 mg PO TID PRN muscle spa sm #14 03/18/25 Unknown Rx tabs ondansetron 4 mg disintegrating 4 mg PO Q6H PRN nausea and 03/18/25 Unknown Rx tablet vomiting #20 tabs oxycodone-acetaminophen 5 mg-325 1 tab PO Q6H PRN pain 2 days #8 03/18/25 Unknown Rx mg tablet (Endocet) tabs Allergy/AdvReac Type Severity Reaction Status Date / Time acetaminophen (From Percocet) Allergy Other Verified 03/13/25 19:15 oxycodone (From Percocet) Allergy Other Verified 03/13/25 19:15 codeine AdvReac Nausea & Verified 03/13/25 19:15 dizziness oxycodone HCl (From Percocet) AdvReac Nausea & Verified 03/13/25 19:15 dizziness Family History Father Diabetes Dementia Surgical History S/P ORIF (open reduction internal fixation) fracture History of surgery on wrist History of cataract surgery History of ankle surgery Social History household members: none Smoking Status: Never smoker substance use type: does not use Physical Exam Const alert, oriented x3, no apparent distress, average body habitus and no limitations Constitutional Narrative: The patient's BMI is 19.5. General Appearance: cooperative, comfortable, well kempt and well developed Orientation / Consciousness: awake, oriented to person, oriented to place and oriented to time Exam Limitations: no limitations HEENT normocephalic and head/scalp atraumatic Head and Scalp: normal to inspection, normocephalic and atraumatic Face and Sinus: normal facial exam Nose: external nose normal External Ear: external ears normal Eyes EOMs intact bilaterally General Eye: normal appearance of both eyes Neck full ROM Resp normal respiratory effort, normal air movement, no retractions and no use of accessory muscles Effort and Inspection: able to speak in complete sentences Extremity General Extremity: Negative for clubbing or cyanosis Skin Wound Narrative: The traumatic wound on the patient's left medial calf remains completely healed and epithelialized.However, the patient sustained a wound on her right calf asresult of an injury caused by her dog. She was seen and evaluated in the [facility] Emergency Department on March 13, 2025, atwhich time she was found to have a triangular-shaped laceration/avulsion injury on her right calf. Seven 4-0 Ethilon sutures were used to reapproximate the avulsion flap. The patient was placed on cephalexin and Augmentin orally. The sut[facility], which were placed in the Emergency Department, [facility] [place] Since [facility], the traumatic flap has larg johnny necrosed due to ischemia. An open wound persists at the site, which appears to be full-thickness in nature. It extends through all layers of the dermis and into the subcutaneous tissues. Wound margins are well beveled. There is a small amount of slough and bioburden. [place] healthy granulation tissue is also noted. Dimensions are documented elsewhere. There is no sign ofinfection or cellulitis. No significant swelling or edema are noted in the lower extremities. Neuro oriented x3, CN's II-XII intact bilaterally, moves all extremities, no focal motor deficits and no sensory deficits noted Sensorium / Orientation: awake, alert, oriented to person, oriented to place andoriented to time Speech: speech normal Psych Appearance: grossly normal and appropriate Attitude: calm Activity / Motor Behavior: appropriate eye contact Speech: normal speech Mood & Affect: euthymic mood Thought Process: normal thought process Thought Content: normal thought content Attention / Concentration: attention grossly intact Debridement Note Debridement Note Wound debrided: Right calf wound Laterality: Right Type of Debridement: Excisional debridement Anesthesia Used: 5% Lidocaine Gel Depth: Down to and including healthy tissue and in the subcutaneous layer Percentage of wound debrided: 100 Instrument Used: 5mm curette Tissue Removed: Slough and bioburden Severity: Fat Layer Exposed Amount of bleeding with debridement: Mild Bleeding Controlled with: Compression and gauze Patient tolerated procedure: Patient tolerated procedure well Post-Debridement Measurements and Additional Note: Post-Debridement Measurements/Treatment - Nurse 1 - General Ulcer Assessment Start: 03/09/25 12:54 Freq: Status: Active Protocol: NATHALIE Activity Type Activity Date Activity User E-sign Co-sign Detail Recorded Client Recorded Date Recorded By Document 03/09/25 12:55 KW [id number] 03/09/25 12:57 KW Document 03/23/25 13:03 BMF [id number] 03/23/25 13:13 BMF Document 03/30/25 13:13 ML [id number] 03/30/25 13:22 ML 03/09/25 03/23/25 03/30/25 12:55 13:03 13:13 - Today's Visit Information Type of service Follow-up Visit Follow-up Visit Follow-up Visit (Physician/DEALERSHIP MANAGER (Physician/DEALERSHIP MANAGER (Physician/DEALERSHIP MANAGER ) ) ) Arrival Mode Ambulatory,Cane Ambulatory Ambulatory Transfer Assistance None None Patient Identification Verified (Name & Yes Yes Yes ) Patient Requires Transmission-Based No No Precautions Vital Signs Temperature (97.8 F-99.1 F) 98.3 F 97.4 F L 97.7 F L Temperature Source Temporal Temporal Temporal Pulse Rate (60-100) 78 83 91 Pulse Location Monitor Monitor Monitor Respiratory Rate (12-18) 18 16 14 Respiratory rate source Observation Observation Observation Oxygen Delivery Method Room Air Room Air Blood Pressure (90/60-120/80) 124/67 H 119/72 112/61 Blood Pressure Mean 86 87 78 Source Monitor Monitor Monitor Position Semi-Fowlers Sitting Sitting Blood Pressure Location Right Arm Right Arm History Since Last Visit- (Skip if this is Patient's initial visit) Have you changed medications since your No No No last visit? Any new allergies or adverse reactions No No No Had a fall/change in ADL's that may No No No increase risk of falls Signs or symptoms of abuse and/or No No No neglect since last visit Have you been in the hospital since your No No No last visit? Has dressing in place as prescribed Yes Yes Yes Has compression in place as prescribed Yes Yes Yes Has offloadiing in place as prescribed N/A N/A No Experienced any changes in pain level or No No No management Left Footwear Regular Shoe Regular Shoe Right Footwear Regular Shoe Regular Shoe Pain Scale: 0-10 Numeric Is Patient Pain Free? Yes Yes Yes WC - Nurse 1 - General Ulcer Measurement Start: 03/09/25 12:54 Freq: Status: Active Protocol: Activity Type Activity Date Activity User E-sign Co-sign Detail Recorded Client Recorded Date Recorded By Document 03/09/25 12:55 KW [id number] 03/09/25 12:57 KW Document 03/23/25 13:03 BMF [id number] 03/23/25 13:13 BMF Document 03/30/25 13:13 ML [id number] 03/30/25 13:22 ML 03/09/25 03/23/25 03/30/25 12:55 13:03 13:13 Wound Center Nurse 1 #2- R LAT LEG- DOG SCRATCH -Combined with other wound No -Current Size (cm) - Length 1 1.8 -Current Size (cm) - Width 0.2 1.8 -Current Size (cm) - Depth 0.1 0.1 -Total Square Cm 0.2 3.24 -Date of Last Picture (Recall this 03/23/25 field) -Photo Taken Yes -Tunneling No -Undermining/Tunneling No -Circular Undermining No -Exudate Amt Medium Small -Exudate Type Serosanguineous Serosanguineous -Wound Margin Distinct, Distinct, Outline Outline Attached Attached -Granulation Amt Medium (34-66%) Small (1-33%) -Granulation Quality Red -Slough/Fibrin Yes Yes -Necrosis Amt Medium (34-66%) Small (1-33%) -Necrotic Tissue Type Adherent Slough Adherent Slough -Texture (Maylin-wound Skin Appearance) Assessed, Assessed Scarring -Moisture (Maylin-wound Skin Appearance) Assessed,Dry/ Assessed Scaly -Color (Maylin-wound Skin Appearance) Assessed Assessed -Temperature (Maylin-wound Skin No Abnormality No Abnormality Appearance) (Pt Warm) (Pt Warm) -Tenderness on Palpation (Maylin-wound No No Skin Appearance) -Ulcer Cleansing Soap and Water Rinsed/ Irrigated with Saline -Foul Odor after Cleansing No No -Anesthetic Used 5% Lidocaine 5% Lidocaine Gel Gel #1 LT MED LE -Combined with other wound No -Current Size (cm) - Length 0.9 0.1 0.1 -Current Size (cm) - Width 1.2 0.1 0.1 -Current Size (cm) - Depth 0.1 0.1 0.1 -Total Square Cm 1.08 0.01 0.01 -Date of Last Picture (Recall this 03/09/25 03/23/25 field) -Photo Taken Yes -Epithelialization Large 67-100% -Exudate Amt Small -Exudate Type Serosanguineous -Wound Margin Distinct, Outline Attached -Granulation Amt None Present (0 %) -Necrosis Amt None Present (0 %) -Texture (Maylin-wound Skin Appearance) Assessed Assessed Assessed -Moisture (Maylin-wound Skin Appearance) Assessed Assessed -Color (Maylin-wound Skin Appearance) Assessed Assessed Assessed -Temperature (Maylin-wound Skin No Abnormality No Abnormality No Abnormality Appearance) (Pt Warm) (Pt Warm) (Pt Warm) -Tenderness on Palpation (Maylin-wound No No No Skin Appearance) -Ulcer Cleansing Rinsed/ Soap and Water Rinsed/ Irrigated with Irrigated with Saline Saline -Foul Odor after Cleansing No No -Anesthetic Used 5% Lidocaine 5% Lidocaine Gel Gel WC - Nurse 2 - General Ulcer CM Notes Start: 03/09/25 12:54 Freq: Status: Active Protocol: Activity Type Activity Date Activity User E-sign Co-sign Detail Recorded Client Recorded Date Recorded By Document 03/09/25 13:03 DS [id number] 03/09/25 13:07 DS Document 03/23/25 13:26 DS [id number] 03/23/25 13:29 DS Document 03/30/25 13:34 DS [id number] 03/30/25 13:38 DS 03/09/25 03/23/25 03/30/25 13:03 13:26 13:34 Wound Center Nurse 2 #2- R LAT LEG- DOG SCRATCH -Time 13:27 13:35 -Correct Patient Yes Yes -Correct Side, Site, Position Yes Yes -Correct Procedure Yes -Procedure Performed No Yes -Type of Procedure Debridement -Clinical Debridement Subcutaneous -Tissue Removed Subcutaneous -Post Debridement (cm) - Length 0.1 1.8 -Post Debridement (cm) - Width 0.1 1.8 -Post Debridement (cm) - Depth 0.1 0.1 -Total Square (Post) (cm) 0.01 3.24 -Area of Debridement (cm) - Length 0.1 1.8 -Area of Debridement (cm) - Width 0.1 1.8 -Total Square (Area) (cm) 0.01 3.24 -Tunneling No No -Undermining/Tunneling No No -Circular Undermining No No -Wound/Ulcer Outcome Not Healed Not Healed -Ulcer Cleansing gauze -Foul Odor after Cleansing No -Bioengineered Tissue No -Bleeding Controlled with Pressure -Treatment Response Procedure Tolerated Well -Debridement - Subq, 1st 20sq cm Yes #1 LT MED LE -Time 13:03 13:27 13:35 -Correct Patient Yes Yes Yes -Correct Side, Site, Position Yes Yes Yes -Correct Procedure Yes -Procedure Performed Yes No No -Type of Procedure Debridement -Clinical Debridement Subcutaneous -Tissue Removed Subcutaneous -Post Debridement (cm) - Length 1.2 0.1 -Post Debridement (cm) - Width 1.5 0.1 -Post Debridement (cm) - Depth 0.1 0.1 -Total Square (Post) (cm) 1.80 0.01 -Area of Debridement (cm) - Length 1.2 0.1 -Area of Debridement (cm) - Width 1.5 0.1 -Total Square (Area) (cm) 1.80 0.01 -Tunneling No No -Undermining/Tunneling No No -Circular Undermining No No -Wound/Ulcer Outcome Not Healed Not Healed Healed- Epithelialized -Ulcer Cleansing gauze -Foul Odor after Cleansing No -Bioengineered Tissue No -Bleeding Controlled with Pressure -Treatment Response Procedure Tolerated Well -Debridement - Subq, 1st 20sq cm Yes Pain Scale: 0-10 Numeric Is Patient Pain Free? Yes Yes Yes WC - Nurse 3 - General Ulcer D/C NN Start: 03/09/25 12:54 Freq: Status: Active Protocol: Activity Type Activity Date Activity User E-sign Co-sign Detail Recorded Client Recorded Date Recorded By Document 03/09/25 13:16 BM [id number] 03/09/25 13:17 BM Document 03/23/25 13:35 KW [id number] 03/23/25 13:35 KW Document 03/30/25 13:46 ML [id number] 03/30/25 13:48 ML 03/09/25 03/23/25 03/30/25 13:16 13:35 13:46 Wound Care Center Nurse 3 #2- R LAT LEG- DOG SCRATCH -Ulcer Cleansing Rinsed/ Irrigated with Saline -Primary Dressing Applied NonAdherent Aquacel Extra Contact Layer -Primary Dressing Covered/Secured with Dry Gauze & Dry Gauze, Roll Gauze, Secured with Secured with Tape Tape -Aquacel Extra 1 #1 LT MED LE -Ulcer Cleansing Rinsed/ Rinsed/ Irrigated with Irrigated with Saline Saline -Foul Odor after Cleansing No -Primary Dressing Applied Aquacel Extra NonAdherent Contact Layer -Other Dressing pad and protect -Primary Dressing Covered/Secured with Dry Gauze & Dry Gauze & Dry Gauze, Roll Gauze, Roll Gauze, Secured with Secured with Secured with Tape Tape Tape -Aquacel Extra 1 LLE -Compression Wrap John Wrap John Wrap -Other 2 4in wraps used Treatment Response Procedure Tolerated Well Pain Scale: 0-10 Numeric Is Patient Pain Free? Yes Yes Yes WC - Visit Discharge Discharge Condition Stable Stable Ambulatory Status Ambulatory,Cane Ambulatory,Cane Transportation Private Auto Private Auto Medication Reconcilliation completed & No provided to patient/care provider Clinical Summary of Care Provided Yes Charges/Coding Procedures Integumentary [id number]: [id number] Esha subq tissue 20 sq cm/< Assessment/Plan Assessment/Plan (1) Non-pressure chronic ulcer of right calf with fat layer exposed: CODE(S): L97.212 - Non-pressure chronic ulcer of right calf with fat layerexposed (2) Non-pressure chronic ulcer of left calf with fat layer exposed: CODE(S): L97.222 - Non-pressure chronic ulcer of left calf with fat layer exposed (3) Traumatic open wound of lower leg: CODE(S): S81.809A - Unspecified open wound, unspecified lower leg, initialencounter QUALIFIERS: Encounter type: subsequent encounter Laterality: right Qualified Code(s): S81.801D - Unspecified open wound, right lower leg, subsequent encounter (4) S/P ORIF (open reduction internal fixation) fracture: CODE(S): Z96.7 - Presence of other bone and tendon implants; Z87.81 - Personal history of (healed) traumatic fracture (5) S/P ORIF (open reduction internal fixation) fracture: CODE(S): Z98.890 - Other specified postprocedural states; Z87.81 - Personal history of (healed) traumatic fracture (6) History of surgery on wrist: CODE(S): Z98.890 - Other specified postprocedural states (7) History of cataract surgery: CODE(S): Z98.49 - Cataract extraction status, unspecified eye (8) History of ankle surgery: CODE(S): Z98.890 - Other specified postprocedural states (9) Hypothyroidism: CODE(S): E03.9 - Hypothyroidism, unspecified QUALIFIERS: Hypothyroidism type: acquired Qualified Code(s): E03.9 - Hypothyroidism, unspecified (10) Raynaud phenomenon: CODE(S): I73.00 - Raynaud's syndrome without gangrene QUALIFIERS: Raynaud?s-associated gangrene presence: without gangrene Qualified Code(s): I73.00 - Raynaud's syndrome without gangrene (11) Osteoporosis: CODE(S): M81.0 - Age-related osteoporosis without current pathological fracture (12) Xrti-axlf-luvritevlwlvtsv: 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 The injury occurred when thepatient's dog traumatized her leg with its nails. Due to management at the [facility], the wound on the left calf has completely healed and epithelialized. However, the patient has now sustained a wound on her right calf as the result of a similar injury caused by her dog. She was seen and evaluated in the [facility] Emergency Department on March 13, 2025, at which time she was found to have a triangular-shaped laceration/avulsion injury on her right calf. Seven 4-0 Ethilon sutures were used to reapproximate the avulsion flap. The patient was placed on cephalexin and Augmentin orally. The sutures, which were placed in the Emergency Department, were removed on March 22, 2025, at the [facility] in [place]. The avulsion flap has not survived due to ischemia, and has necrosed, leaving an open, full-thickness wound at the site. We are to implement the use of moistened Aquacel Extra topically, to be applied on a daily basis. The patient has been provided product, and instructed in theappropriate means of application. With respect to the healed wound on the left lower extremity, the patient has been instructed to use dry gauze for the purpose of padding and protecting. The patientis to return in 1 week for reevaluation. The patient has been counseled to elevate her lower extremities as much as possible, to remain active, and to avoid prolonged, idle sitting. She has been advised to optimize her nutritional intake, and is using Huy as a supplement. Total time: 24 minutes 04/01/25 1151 Cosigner Signature (if applicable): CC: ~ Signed [facility]07-19-2025 History and physical note Author Cedric Gibbons [facility] Note Date/Time March 27, 2025 5:46 pm [facility] [address] [place] [address] H&P Exam - Wound Care 03/27/25 1730 MR#: [id number] Acct: [id number] Name: GERALDINE HAIRSTON Elin Rep #:[id number] : 1950 74 From: Cedric Worthington PCP: Dr. Chance Kolb MD Status:RE G RCR Location: History of Present Illness Date of Service: 03/23/25 Chief Complaint: Traumatic avulsion injury of the left medial calf History of Wound: This is a 74-year-old female who sustained a traumatic injury to her left medial calf on January 01, 2025. At the time of her injury, she presented to the [facility] Emergency Department, where she was found to have an avulsion injury with a significant adherent cutaneous flap. The injury was caused by the nails of her dog, who had jumped off the couch. Inthe Emergency Department, the flap was sutured in place using seven 5-0 nylon sutures. The patient was placed on Keflex and Augmentin orally, and was discharged. The patient is generally healthy for her age, though has a history of upmj-lyev-ebyasesibhgoevd, GERD, hypertension, hypothyroidism, and osteoporosis. She denies a history of diabetes mellitus, myocardial infarction,cerebrovascular accident, renal disease, and pulmonary disease. Her BMI is 19.5. She is . 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 left calf with fat layer exposed Traumatic open wound of lower leg Avulsion injury GERD (gastroesophageal reflux disease) HTN (hypertension) Hypothyroidism Depression Anxiety Home Medications ?Medication ?Instructions ?Recorded ?Last Taken ?Type levothyroxine 25 mcg tablet 25 mcg PO DAILY Check with primary 02/07/15 09/29/16 09:00 History doctor Bacillus coagulans-inulin 1 1 ea PO DAILY Check with p altaary 12/07/15 09/29/16 09:00 History billion cell-250 mg capsule doctor (Probiotic Formula (inulin)) gabapentin 100 mg capsule 600 mg PO BID [facility] 12/07/15 09/29/16 21:00 History doctor nifedipine 60 mg tablet,extended 180 mg PO DAILY Check with primary 12/07/15 09/29/16 09:00 History release 24 hr doctor pantoprazole 20 mg tablet,delayed 20 mg PO DAILY [facility] 12/07/15 09/29/16 09:00 History release paroxetine HCl 25 mg 75 mg PO DAILY depression 09/29/16 09:00 History tablet,extended release 24 hr (Paxil CR) aspirin 325 mg tablet,delayed 325 mg PO DAILY HEART 09/29/16 09:00 History release buspirone 5 mg tablet 30 mg PO BID Check with prim les[facility] 04/26/16 09/29/16 21:00 History doctor budesonide 3 mg 9 mg PO DAILY Check [facility] 09/30/16 Unknown History capsule,delayed,extended release doctor (Entocort EC) lorazepam 0.5 mg tablet 0.5 mg PO Q6H PRN PRN Anxiet y ##10 10/03/16 Unknown Rx dicyclomine 20 mg tablet 20 mg PO TID Check with prim les[facility] 09/02/22 Unknown History doctor Metamucil Check with primary doctor Unknown History food supplemt, lactose-reduced 120 ml PO 4X/DAY Check with 09/07/22 Unknown History 0.08 gram-1.5 kcal/mL oral liquid primary doctor (Ensure Enlive) loperamide 2 mg tablet 2 mg PO Q6H PRN Constipation 09/07/22 Unknown History omeprazole 40 mg PO/SL DAILY Check with 09/07/22 Unknown History primary doctor atorvastatin 80 mg tablet 20 mg (1/4 x 80 mg) PO QHS # 30 tabs 09/08/22 Unknown Rx cyclobenzaprine 5 mg tablet 5 mg PO TID PRN muscle spa sm #14 03/18/25 Unknown Rx tabs ondansetron 4 mg disintegrating 4 mg PO Q6H PRN nausea and 03/18/25 Unknown Rx tablet vomiting #20 tabs oxycodone-acetaminophen 5 mg-325 1 tab PO Q6H PRN pain 2 days #8 03/18/25 Unknown Rx mg tablet (Endocet) tabs Allergy/AdvReac Type Severity Reaction Status Date / Time acetaminophen (From Percocet) Allergy Other Verified 03/13/25 19:15 oxycodone (From Percocet) Allergy Other Verified 03/13/25 19:15 codeine AdvReac Nausea & Verified 03/13/25 19:15 dizziness oxycodone HCl (From Percocet) AdvReac Nausea & Verified 03/13/25 19:15 dizziness Family History Father Diabetes Dementia Surgical History S/P ORIF (open reduction internal fixation) fracture History of surgery on wrist History of cataract surgery History of ankle surgery Social History household members: none Smoking Status: Never smoker substance use type: does not use Physical Exam Const alert, oriented x3, no apparent distress and average body habitus Constitutional Narrative: The patient's BMI is 19.5. General Appearance: cooperative, comfortable, well kempt and well developed Orientation / Consciousness: awake, oriented to person, oriented to place and oriented to time Exam Limitations: no limitations HEENT normocephalic and head/scalp atraumatic Head and Scalp: normal to inspection, normocephalic and atraumatic Face and Sinus: normal facial exam Nose: external nose normal External Ear: external ears normal Eyes EOMs intact bilaterally General Eye: normal appearance of both eyes Neck full ROM Resp normal respiratory effort, normal air movement, no retractions and no use of accessory muscles Effort and Inspection: able to speak in complete sentences Extremity General Extremity: Negative for clubbing or cyanosis Skin Wound Narrative: The traumatic wound on the patient's left medial calf now appears to be completely healed and epithelialized. However, the patient sustained a wound onher right lateral calf as result of an injury caused by her dog. She was seen and evaluated in the [facility] Emergency Department on March 13, 2025, at which time she was found to have a triangular-shaped laceration/avulsion injury on her right calf. Seven 4-0 Ethilon sutures were used to reapproximate the avulsion flap. The patient was placed on cephalexin and Augmentin orally. The sutures which were placed in the Emergency Departmentwere removed yesterday, March 22, 2025, at the [facility] in [place]. As of this visit, the wound appears well approximated, though somewhat dark and dusky, which may be due to hematoma, but also may be due to tissue ischemia. There is no sign of infection or cellulitis. No significant swelling or edema are noted in the lower extremities. Neuro oriented x3, CN's II-XII intact bilaterally, moves all extremities, no focal motor deficits and no sensory deficits noted Sensorium / Orientation: awake, alert, oriented to person, oriented to place andoriented to time Speech: speech normal Psych Appearance: grossly normal and appropriate Attitude: calm Activity / Motor Behavior: appropriate eye contact Speech: normal speech Mood & Affect: euthymic mood Thought Process: normal thought process Thought Content: normal thought content Attention / Concentration: attention grossly intact Debridement Note Debridement Note No debridement was completed: No debridement was completed today Post-Debridement Measurements and Additional Note: Post-Debridement Measurements/Treatment DANTE - Nurse 1 - General Ulcer Assessment Start: 03/09/25 12:54 Freq: Status: Active Protocol: NATHALIE Activity Type Activity Date Activity User E-sign Co-sign Detail Recorded Client Recorded Date Recorded By Document 03/09/25 12:55 [id number] 03/09/25 12:57 Document 03/23/25 13:03 [facility] [id number] 03/23/25 13:13 [facility] 03/09/25 03/23/25 12:55 13:03 - Today's Visit Information Type of service Follow-up Visit Follow-up Visit (Physician/DEALERSHIP MANAGER (Physician/DEALERSHIP MANAGER ) ) Arrival Mode Ambulatory,Cane Ambulatory Transfer Assistance None Patient Identification Verified (Name & Yes Yes ) Patient Requires Transmission-Based No Precautions Vital Signs Temperature (97.8 F-99.1 F) 98.3 F 97.4 F L Temperature Source Temporal Temporal Pulse Rate (60-100) 78 83 Pulse Location Monitor Monitor Respiratory Rate (12-18) 18 16 Respiratory rate source Observation Observation Oxygen Delivery Method Room Air Room Air Blood Pressure (90/60-120/80) 124/67 H 119/72 Blood Pressure Mean 86 87 Source Monitor Monitor Position Semi-Fowlers Sitting Blood Pressure Location Right Arm History Since Last Visit- (Skip if this is Patient's initial visit) Have you changed medications since your No No last visit? Any new allergies or adverse reactions No No Had a fall/change in ADL's that may No No increase risk of falls Signs or symptoms of abuse and/or No No neglect since last visit Have you been in the hospital since your No No last visit? Has dressing in place as prescribed Yes Yes Has compression in place as prescribed Yes Yes Has offloadiing in place as prescribed N/A N/A Experienced any changes in pain level or No No management Left Footwear Regular Shoe Regular Shoe Right Footwear Regular Shoe Regular Shoe Pain Scale: 0-10 Numeric Is Patient Pain Free? Yes Yes - Nurse 1 - General Ulcer Measurement Start: 03/09/25 12:54 Freq: Status: Active Protocol: Activity Type Activity Date Activity User E-sign Co-sign Detail Recorded Client Recorded Date Recorded By Document 03/09/25 12:55 [id number] 03/09/25 12:57 Document 03/23/25 13:03 [facility] [id number] 03/23/25 13:13 [facility] 03/09/25 03/23/25 12:55 13:03 Wound Center Nurse 1 #2- R LAT LEG- DOG SCRATCH -Combined with other wound No -Current Size (cm) - Length 1 -Current Size (cm) - Width 0.2 -Current Size (cm) - Depth 0.1 -Total Square Cm 0.2 -Date of Last Picture (Recall this 03/23/25 field) -Photo Taken Yes -Tunneling No -Undermining/Tunneling No -Circular Undermining No -Exudate Amt Medium -Exudate Type Serosanguineous -Wound Margin Distinct, Outline Attached -Granulation Amt Medium (34-66%) -Granulation Quality Red -Slough/Fibrin Yes -Necrosis Amt Medium (34-66%) -Necrotic Tissue Type Adherent Slough -Texture (Maylin-wound Skin Appearance) Assessed, Scarring -Moisture (Maylin-wound Skin Appearance) Assessed,Dry/ Scaly -Color (Maylin-wound Skin Appearance) Assessed -Temperature (Maylin-wound Skin No Abnormality Appearance) (Pt Warm) -Tenderness on Palpation (Maylin-wound No Skin Appearance) -Ulcer Cleansing Soap and Water -Foul Odor after Cleansing No -Anesthetic Used 5% Lidocaine Gel #1 LT MED LE -Combined with other wound No -Current Size (cm) - Length 0.9 0.1 -Current Size (cm) - Width 1.2 0.1 -Current Size (cm) - Depth 0.1 0.1 -Total Square Cm 1.08 0.01 -Date of Last Picture (Recall this 03/09/25 03/23/25 field) -Photo Taken Yes -Epithelialization Large 67-100% -Exudate Amt Small -Exudate Type Serosanguineous -Wound Margin Distinct, Outline Attached -Texture (Maylin-wound Skin Appearance) Assessed Assessed -Moisture (Maylin-wound Skin Appearance) Assessed Assessed -Color (Maylin-wound Skin Appearance) Assessed Assessed -Temperature (Maylin-wound Skin No Abnormality No Abnormality Appearance) (Pt Warm) (Pt Warm) -Tenderness on Palpation (Maylin-wound No No Skin Appearance) -Ulcer Cleansing Rinsed/ Soap and Water Irrigated with Saline -Foul Odor after Cleansing No No -Anesthetic Used 5% Lidocaine Gel WC - Nurse 2 - General Ulcer CM Notes Start: 03/09/25 12:54 Freq: Status: Active Protocol: Activity Type Activity Date Activity User E-sign Co-sign Detail Recorded Client Recorded Date Recorded By Document 03/09/25 13:03 DS [id number] 03/09/25 13:07 DS Document 03/23/25 13:26 DS [id number] 03/23/25 13:29 DS 03/09/25 03/23/25 13:03 13:26 Wound Center Nurse 2 #2- R LAT LEG- DOG SCRATCH -Time 13:27 -Correct Patient Yes -Correct Side, Site, Position Yes -Procedure Performed No -Post Debridement (cm) - Length 0.1 -Post Debridement (cm) - Width 0.1 -Post Debridement (cm) - Depth 0.1 -Total Square (Post) (cm) 0.01 -Area of Debridement (cm) - Length 0.1 -Area of Debridement (cm) - Width 0.1 -Total Square (Area) (cm) 0.01 -Tunneling No -Undermining/Tunneling No -Circular Undermining No -Wound/Ulcer Outcome Not Healed #1 LT MED LE -Time 13:03 13:27 -Correct Patient Yes Yes -Correct Side, Site, Position Yes Yes -Correct Procedure Yes -Procedure Performed Yes No -Type of Procedure Debridement -Clinical Debridement Subcutaneous -Tissue Removed Subcutaneous -Post Debridement (cm) - Length 1.2 0.1 -Post Debridement (cm) - Width 1.5 0.1 -Post Debridement (cm) - Depth 0.1 0.1 -Total Square (Post) (cm) 1.80 0.01 -Area of Debridement (cm) - Length 1.2 0.1 -Area of Debridement (cm) - Width 1.5 0.1 -Total Square (Area) (cm) 1.80 0.01 -Tunneling No No -Undermining/Tunneling No No -Circular Undermining No No -Wound/Ulcer Outcome Not Healed Not Healed -Ulcer Cleansing gauze -Foul Odor after Cleansing No -Bioengineered Tissue No -Bleeding Controlled with Pressure -Treatment Response Procedure Tolerated Well -Debridement - Subq, 1st 20sq cm Yes Pain Scale: 0-10 Numeric Is Patient Pain Free? Yes Yes - Nurse 3 - General Ulcer D/C NN Start: 03/09/25 12:54 Freq: Status: Active Protocol: Activity Type Activity Date Activity User E-sign Co-sign Detail Recorded Client Recorded Date Recorded By Document 03/09/25 13:16 [facility] [id number] 03/09/25 13:17 [facility] Document 03/23/25 13:35 KW [id number] 03/23/25 13:35 KW 03/09/25 03/23/25 13:16 13:35 Wound Care Center Nurse 3 #2- R LAT LEG- DOG SCRATCH -Primary Dressing Applied NonAdherent Contact Layer -Primary Dressing Covered/Secured with Dry Gauze & Roll Gauze, Secured with Tape #1 LT MED LE -Ulcer Cleansing Rinsed/ Irrigated with Saline -Foul Odor after Cleansing No -Primary Dressing Applied Aquacel Extra NonAdherent Contact Layer -Primary Dressing Covered/Secured with Dry Gauze & Dry Gauze & Roll Gauze, Roll Gauze, Secured with Secured with Tape Tape -Aquacel Extra 1 LLE -Compression Wrap John Wrap John Wrap -Other 2 4in wraps used Treatment Response Procedure Tolerated Well Pain Scale: 0-10 Numeric Is Patient Pain Free? Yes Yes WC - Visit Discharge Discharge Condition Stable Stable Ambulatory Status Ambulatory,Cane Ambulatory,Cane Transportation Private Auto Private Auto Medication Reconcilliation completed & No provided to patient/care provider Clinical Summary of Care Provided Yes Charges/Coding Visit Charges Office Visits / Consults: 31238 OV L3 Est 20min Assessment/Plan Assessment/Plan (1) Non-pressure chronic ulcer of right calf with fat layer exposed: CODE(S): L97.212 - Non-pressure chronic ulcer of right calf with fat layerexposed (2) Non-pressure chronic ulcer of left calf with fat layer exposed: CODE(S): L97.222 - Non-pressure chronic ulcer of left calf with fat layer exposed (3) Traumatic open wound of lower leg: CODE(S): S81.809A - Unspecified open wound, unspecified lower leg, initialencounter QUALIFIERS: Encounter type: subsequent encounter Laterality: left Qualified Code(s): S81.802D - Unspecified open wound, left lower leg, subsequent encounter (4) Avulsion injury: CODE(S): T14.8XXA - Other injury of unspecified body region, initial encounter (5) S/P ORIF (open reduction internal fixation) fracture: CODE(S): Z96.7 - Presence of other bone and tendon implants; Z87.81 - Personal history of (healed) traumatic fracture (6) S/P ORIF (open reduction internal fixation) fracture: CODE(S): Z98.890 - Other specified postprocedural states; Z87.81 - Personal history of (healed) traumatic fracture (7) History of surgery on wrist: CODE(S): Z98.890 - Other specified postprocedural states (8) History of cataract surgery: CODE(S): Z98.49 - Cataract extraction status, unspecified eye (9) History of ankle surgery: CODE(S): Z98.890 - Other specified postprocedural states (10) Hypothyroidism: CODE(S): E03.9 - Hypothyroidism, unspecified QUALIFIERS: Hypothyroidism type: acquired Qualified Code(s): E03.9 - Hypothyroidism, unspecified (11) Raynaud phenomenon: CODE(S): I73.00 - Raynaud's syndrome without gangrene QUALIFIERS: Raynaud?s-associated gangrene presence: without gangrene Qualified Code(s): I73.00 - Raynaud's syndrome without gangrene (12) Osteoporosis: CODE(S): M81.0 - Age-related osteoporosis without current pathological fracture (13) Zlnl-oxdi-scubnottqqwshdy: 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 The injury occurred when thepatient's dog traumatized her leg with its nails. Due to management at the [facility], the wound on the left calf appears to be completely healed and epithelialized. However, the patient has now sustaineda wound on her right lateral calf as result of an injury caused by her dog. Shewas seen and evaluated in the [facility] Emergency Department onMarch 13, 2025, at which time she was found to have a triangular-shaped laceration/avulsion injury on her right calf. Seven 4-0 Ethilon sutures were used to reapproximate the avulsion flap. The patient was placed on cephalexin and Augmentin orally. The sutures, which were placed in the Emergency Department, were removed yesterday, March 22, 2025, at the [facility] in [place]. As of this visit, the evulsion flap appears well approximated, though somewhat dark and dusky, which may be due to hematoma, but also may be due to tissue ischemia. Therefore, serial monitoring of this site appears to be warranted. The patient has been instructed to apply Adaptic and gauze to this right lower extremity wound on a daily basis, so as to pad and protect the area. Her leg is to be wrapped with an John wrap daily as well. The patient is to return in 1 week for reevaluation. There is question as to whether the reapproximated traumatic flap will remain viable, which will be evaluated duringthe patient's subsequent visits. The patient has been counseled to elevate her lower extremities as much as possible, to remain active, and to avoid prolonged,idle sitting. She has been advised to optimize her nutritional intake, and is using Huy as a supplement. Total time: 26 minutes 03/27/25 1746 <Electronically signed by Cedric Gibbons MD> Cosigner Signature (if applicable): CC: ~ Signed [facility] Work Phone: [phone] History and physical note [facility] [address] [place] [address] H&P Exam - Wound Care 03/27/25 1730 MR#: [id number] Acct: [id number] Name: GERALDINE HAIRSTON Rep #:[id number] 10 : 1950 74 From: Cedric Worthington PCP: Dr. Chance Kolb MD Status:RE G RCR Location: History of Present Illness Date of Service: 03/23/25 Chief Complaint: Traumatic avulsion injury of the left medial calf History of Wound: This is a 74-year-old female who sustained a traumatic injury to her left medial calf on January 01, 2025. At the time of her injury, she presented to the [facility] Emergency Department, where she was found to have an avulsion injury with a significant adherent cutaneous flap. The injury was caused by the nails of her dog, who had jumped off the couch. Inthe Emergency Department, the flap was sutured in place using seven 5-0 nylon sutures. The patient was placedon Keflex and Augmentin orally, and was discharged. The patient is generally healthy for her age, though has a history of jgen-cjsc-wdwuccuiwusbrfc, GERD, hypertension, hypothyroidism, and osteoporosis. She denies a history of diabetes mellitus, myocardial infarction,cerebrovascular accident, renaldisease, and pulmonary disease. Her BMI is 19.5. She is . 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 left calf with fat layer exposed Traumatic open wound of lower leg Avulsion injury GERD (gastroesophageal reflux disease) HTN (hypertension) Hypothyroidism Depression Anxiety Home Medications ?Medication ?Instructions ?Recorded ?Last Taken ?Type levothyroxine 25 mcg tablet 25 mcg PO DAILY Check with primary 02/07/15 09/29/16 09:00 History doctor Bacillus coagulans-inulin 1 1 ea PO DAILY Check with p skye 12/07/15 09/29/16 09:00 History billion cell-250 mg capsule doctor (Probiotic Formula (inulin)) gabapentin 100 mg capsule 600 mg PO BID Check [facility] 12/07/15 09/29/16 21:00 History doctor nifedipine 60 mg tablet,extended 180 mg PO DAILY Check with primary 12/07/15 09/29/16 09:00 History release 24 hr doctor pantoprazole 20 mg tablet,delayed 20 mg PO DAILY [facility] 12/07/15 09/29/16 09:00 History release paroxetine HCl 25 mg 75 mg PO DAILY depression 09/29/16 09:00 History tablet,extended release 24 hr (Paxil CR) aspirin 325 mg tablet,delayed 325 mg PO DAILY HEART 09/29/16 09:00 History release buspirone 5 mg tablet 30 mg PO BID Check with [facility] 04/26/16 09/29/16 21:00 History doctor budesonide 3 mg 9 mg PO DAILY Check with [facility] 09/30/16 Unknown History capsule,delayed,extended release doctor (Entocort EC) lorazepam 0.5 mg tablet 0.5 mg PO Q6H PRN PRN Anxiet y ##10 10/03/16 Unknown Rx dicyclomine 20 mg tablet 20 mg PO TID Check with [facility] 09/02/22 Unknown History doctor Metamucil Check with primary doctor Unknown History food supplemt, lactose-reduced 120 ml PO 4X/DAY Check with 09/07/22 Unknown History 0.08 gram-1.5 kcal/mL oral liquid primary doctor (Ensure Enlive) loperamide 2 mg tablet 2 mg PO Q6H PRN Constipation 09/07/22 Unknown History omeprazole 40 mg PO/SL DAILY Check with 09/07/22 Unknown History primary doctor atorvastatin 80 mg tablet 20 mg (1/4 x 80 mg) PO QHS # 30 tabs 09/08/22 Unknown Rx cyclobenzaprine 5 mg tablet 5 mg PO TID PRN muscle spa sm #14 03/18/25 Unknown Rx tabs ondansetron 4 mg disintegrating 4 mg PO Q6H PRN nausea and 03/18/25 Unknown Rx tablet vomiting #20 tabs oxycodone-acetaminophen 5 mg-325 1 tab PO Q6H PRN pain 2 days #8 03/18/25 Unknown Rx mg tablet (Endocet) tabs Allergy/AdvReac Type Severity Reaction Status Date / Time acetaminophen (From Percocet) Allergy Other Verified 03/13/25 19:15 oxycodone (From Percocet) Allergy Other Verified 03/13/25 19:15 codeine AdvReac Nausea & Verified 03/13/25 19:15 dizziness oxycodone HCl (From Percocet) AdvReac Nausea & Verified 03/13/25 19:15 dizziness Family History Father Diabetes Dementia Surgical History S/P ORIF (open reduction internal fixation) fracture History of surgery on wrist History of cataract surgery History of ankle surgery Social History household members: none Smoking Status: Never smoker substance use type: does not use Physical Exam Const alert, oriented x3, no apparent distress and average body habitus Constitutional Narrative: The patient's BMI is 19.5. General Appearance: cooperative, comfortable, well kempt and well developed Orientation / Consciousness: awake, oriented to person, oriented to place and oriented to time Exam Limitations: no limitations HEENT normocephalic and head/scalp atraumatic Head and Scalp: normal to inspection, normocephalic and atraumatic Face and Sinus: normal facial exam Nose: external nose normal External Ear: external ears normal Eyes EOMs intact bilaterally General Eye: normal appearance of both eyes Neck full ROM Resp normal respiratory effort, normal air movement, no retractions and no use of accessory muscles Effort and Inspection: able to speak in complete sentences Extremity General Extremity: Negative for clubbing or cyanosis Skin Wound Narrative: The traumatic wound on the patient's left medial calf now appears to be completely healed and epithelialized. However, the patient sustained a wound onher right lateral calf as result of an injury caused by her dog. She was seen and evaluated in the [facility] Emergency Department on March 13, 2025, at which time she was found to have a triangular-shaped laceration/avulsion injury on her right calf. Seven 4-0 Ethilon sutures were used to reapproximate the avulsion flap. The patient was placed on cephalexin and Augmentin orally. The sutures which were placed in the Emergency Depar tmentwere removed yesterday, March 22, 2025, at the [facility] in [place]. As of this visit, the wound appears well approximated, though somewhat dark and dusky, which may be due to hematoma, but also may be due to tissue ischemia. There is no sign of infection or cellulitis. No significant swelling or edema are noted in the lower extremities. Neuro oriented x3, CN's II-XII intact bilaterally, moves all extremities, no focal motor deficits and no sensory deficits noted Sensorium / Orientation: awake, alert, oriented to person, oriented to place andoriented to time Speech: speech normal Psych Appearance: grossly normal and appropriate Attitude: calm Activity / Motor Behavior: appropriate eye contact Speech: normal speech Mood & Affect: euthymic mood Thought Process: normal thought process Thought Content: normal thought content Attention / Concentration: attention grossly intact Debridement Note Debridement Note No debridement was completed: No debridement was completed today Post-Debridement Measurements and Additional Note: Post-Debridement Measurements/Treatment - Nurse 1 - General Ulcer Assessment Start: 03/09/25 12:54 Freq: Status: Active Protocol: DANTE.MARYLOU Activity Type Activity Date Activity User E-sign Co-sign Detail Recorded Client Recorded Date Recorded By Document 03/09/25 12:55 [facility] [id number] 03/09/25 12:57 Document 03/23/25 13:03 [facility] [id number] 03/23/25 13:13 [facility] 03/09/25 03/23/25 12:55 13:03 - Today's Visit Information Type of service Follow-up Visit Follow-up Visit (Physician/DEALERSHIP MANAGER (Physician/DEALERSHIP MANAGER ) ) Arrival Mode Ambulatory,Cane Ambulatory Transfer Assistance None Patient Identification Verified (Name & Yes Yes ) Patient Requires Transmission-Based No Precautions Vital Signs Temperature (97.8 F-99.1 F) 98.3 F 97.4 F L Temperature Source Temporal Temporal Pulse Rate (60-100) 78 83 Pulse Location Monitor Monitor Respiratory Rate (12-18) 18 16 Respiratory rate source Observation Observation Oxygen Delivery Method Room Air Room Air Blood Pressure (90/60-120/80) 124/67 H 119/72 Blood Pressure Mean 86 87 Source Monitor Monitor Position Semi-Fowlers Sitting Blood Pressure Location Right Arm History Since Last Visit- (Skip if this is Patient's initial visit) Have you changed medications since your No No last visit? Any new allergies or adverse reactions No No Had a fall/change in ADL's that may No No increase risk of falls Signs or symptoms of abuse and/or No No neglect since last visit Have you been in the hospital since your No No last visit? Has dressing in place as prescribed Yes Yes Has compression in place as prescribed Yes Yes Has offloadiing in place as prescribed N/A N/A Experienced any changes in pain level or No No management Left Footwear Regular Shoe Regular Shoe Right Footwear Regular Shoe Regular Shoe Pain Scale: 0-10 Numeric Is Patient Pain Free? Yes Yes WC - Nurse 1 - General Ulcer Measurement Start: 03/09/25 12:54 Freq: Status: Active Protocol: Activity Type Activity Date Activity User E-sign Co-sign Detail Recorded Client Recorded Date Recorded By Document 03/09/25 12:55 [id number] 03/09/25 12:57 Document 03/23/25 13:03 [facility] [id number] 03/23/25 13:13 [facility] 03/09/25 03/23/25 12:55 13:03 Wound Center Nurse 1 #2- R LAT LEG- DOG SCRATCH -Combined with other wound No -Current Size (cm) - Length 1 -Current Size (cm) - Width 0.2 -Current Size (cm) - Depth 0.1 -Total Square Cm 0.2 -Date of Last Picture (Recall this 03/23/25 field) -Photo Taken Yes -Tunneling No -Undermining/Tunneling No -Circular Undermining No -Exudate Amt Medium -Exudate Type Serosanguineous -Wound Margin Distinct, Outline Attached -Granulation Amt Medium (34-66%) -Granulation Quality Red -Slough/Fibrin Yes -Necrosis Amt Medium (34-66%) -Necrotic Tissue Type Adherent Slough -Texture (Maylin-wound Skin Appearance) Assessed, Scarring -Moisture (Maylin-wound Skin Appearance) Assessed,Dry/ Scaly -Color (Maylin-wound Skin Appearance) Assessed -Temperature (Maylin-wound Skin No Abnormality Appearance) (Pt Warm) -Tenderness on Palpation (Maylin-wound No Skin Appearance) -Ulcer Cleansing Soap and Water -Foul Odor after Cleansing No -Anesthetic Used 5% Lidocaine Gel #1 LT MED LE -Combined with other wound No -Current Size (cm) - Length 0.9 0.1 -Current Size (cm) - Width 1.2 0.1 -Current Size (cm) - Depth 0.1 0.1 -Total Square Cm 1.08 0.01 -Date of Last Picture (Recall this 03/09/25 03/23/25 field) -Photo Taken Yes -Epithelialization Large 67-100% -Exudate Amt Small -Exudate Type Serosanguineous -Wound Margin Distinct, Outline Attached -Texture (Maylin-wound Skin Appearance) Assessed Assessed -Moisture (Maylin-wound Skin Appearance) Assessed Assessed -Color (Maylin-wound Skin Appearance) Assessed Assessed -Temperature (Maylin-wound Skin No Abnormality No Abnormality Appearance) (Pt Warm) (Pt Warm) -Tenderness on Palpation (Maylin-wound No No Skin Appearance) -Ulcer Cleansing Rinsed/ Soap and Water Irrigated with Saline -Foul Odor after Cleansing No No -Anesthetic Used 5% Lidocaine Gel WC - Nurse 2 - General Ulcer CM Notes Start: 03/09/25 12:54 Freq: Status: Active Protocol: Activity Type Activity Date Activity User E-sign Co-sign Detail Recorded Client Recorded Date Recorded By Document 03/09/25 13:03 DS [id number] 03/09/25 13:07 DS Document 03/23/25 13:26 DS [id number] 03/23/25 13:29 DS 03/09/25 03/23/25 13:03 13:26 Wound Center Nurse 2 #2- R LAT LEG- DOG SCRATCH -Time 13:27 -Correct Patient Yes -Correct Side, Site, Position Yes -Procedure Performed No -Post Debridement (cm) - Length 0.1 -Post Debridement (cm) - Width 0.1 -Post Debridement (cm) - Depth 0.1 -Total Square (Post) (cm) 0.01 -Area of Debridement (cm) - Length 0.1 -Area of Debridement (cm) - Width 0.1 -Total Square (Area) (cm) 0.01 -Tunneling No -Undermining/Tunneling No -Circular Undermining No -Wound/Ulcer Outcome Not Healed #1 LT MED LE -Time 13:03 13:27 -Correct Patient Yes Yes -Correct Side, Site, Position Yes Yes -Correct Procedure Yes -Procedure Performed Yes No -Type of Procedure Debridement -Clinical Debridement Subcutaneous -Tissue Removed Subcutaneous -Post Debridement (cm) - Length 1.2 0.1 -Post Debridement (cm) - Width 1.5 0.1 -Post Debridement (cm) - Depth 0.1 0.1 -Total Square (Post) (cm) 1.80 0.01 -Area of Debridement (cm) - Length 1.2 0.1 -Area of Debridement (cm) - Width 1.5 0.1 -Total Square (Area) (cm) 1.80 0.01 -Tunneling No No -Undermining/Tunneling No No -Circular Undermining No No -Wound/Ulcer Outcome Not Healed Not Healed -Ulcer Cleansing gauze -Foul Odor after Cleansing No -Bioengineered Tissue No -Bleeding Controlled with Pressure -Treatment Response Procedure Tolerated Well -Debridement - Subq, 1st 20sq cm Yes Pain Scale: 0-10 Numeric Is Patient Pain Free? Yes Yes WC - Nurse 3 - General Ulcer D/C NN Start: 03/09/25 12:54 Freq: Status: Active Protocol: Activity Type Activity Date Activity User E-sign Co-sign Detail Recorded Client Recorded Date Recorded By Document 03/09/25 13:16 [facility] [id number] 03/09/25 13:17 [facility] Document 03/23/25 13:35 [id number] 03/23/25 13:35 KW 03/09/25 03/23/25 13:16 13:35 Wound Care Center Nurse 3 #2- R LAT LEG- DOG SCRATCH -Primary Dressing Applied NonAdherent Contact Layer -Primary Dressing Covered/Secured with Dry Gauze & Roll Gauze, Secured with Tape #1 LT MED LE -Ulcer Cleansing Rinsed/ Irrigated with Saline -Foul Odor after Cleansing No -Primary Dressing Applied Aquacel Extra NonAdherent Contact Layer -Primary Dressing Covered/Secured with Dry Gauze & Dry Gauze & Roll Gauze, Roll Gauze, Secured with Secured with Tape Tape -Aquacel Extra 1 LLE -Compression Wrap John Wrap John Wrap -Other 2 4in wraps used Treatment Response Procedure Tolerated Well Pain Scale: 0-10 Numeric Is Patient Pain Free? Yes Yes WC - Visit Discharge Discharge Condition Stable Stable Ambulatory Status Ambulatory,Cane Ambulatory,Cane Transportation Private Auto Private Auto Medication Reconcilliation completed & No provided to patient/care provider Clinical Summary of Care Provided Yes Charges/Coding Visit Charges Office Visits / Consults: 13155 OV L3 Est 20min Assessment/Plan Assessment/Plan (1) Non-pressure chronic ulcer of right calf with fat layer exposed: CODE(S): L97.212 - Non-pressure chronic ulcer of right calf with fat layerexposed (2) Non-pressure chronic ulcer of left calf with fat layer exposed: CODE(S): L97.222 - Non-pressure chronic ulcer of left calf with fat layer exposed (3) Traumatic open wound of lower leg: CODE(S): S81.809A - Unspecified open wound, unspecified lower leg, initialencounter QUALIFIERS: Encounter type: subsequent encounter Laterality: left Qualified Code(s): S81.802D - Unspecified open wound, left lower leg, subsequent encounter (4) Avulsion injury: CODE(S): T14.8XXA - Other injury of unspecified body region, initial encounter (5) S/P ORIF (open reduction internal fixation) fracture: CODE(S): Z96.7 - Presence of other bone and tendon implants; Z87.81 - Personal history of (healed) traumatic fracture (6) S/P ORIF (open reduction internal fixation) fracture: CODE(S): Z98.890 - Other specified postprocedural states; Z87.81 - Personal history of (healed) traumatic fracture (7) History of surgery on wrist: CODE(S): Z98.890 - Other specified postprocedural states (8) History of cataract surgery: CODE(S): Z98.49 - Cataract extraction status, unspecified eye (9) History of ankle surgery: CODE(S): Z98.890 - Other specified postprocedural states (10) Hypothyroidism: CODE(S): E03.9 - Hypothyroidism, unspecified QUALIFIERS: Hypothyroidism type: acquired Qualified Code(s): E03.9 - Hypothyroidism, unspecified (11) Raynaud phenomenon: CODE(S): I73.00 - Raynaud's syndrome without gangrene QUALIFIERS: Raynaud?s-associated gangrene presence: without gangrene Qualified Code(s): I73.00 - Raynaud's syndrome without gangrene (12) Osteoporosis: CODE(S): M81.0 - Age-related osteoporosis without current pathological fracture (13) Mwjx-awwz-jvzcckcpizhszxf: 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 The injury occurred when thepatient's dog traumatized her leg with its nails. Due to management at the [facility], the wound on the left calf appears to be completely healed and epithelialized. However, the patient has now sustaineda wound on her right lateral calf as result of an injury caused by her dog. [facility] at which time she was found to havea triangular-shaped laceration/avulsion injury on her right calf. Seven 4-0 Ethilon sutures were use d to reapproximate the avulsion flap. The patient was placed on cephalexin and Augmentin orally. The sutures, which were placed in the Emergency Department, were removed yesterday, March 22, 2025, at the [facility] in [place]. As of this visit, the evulsion flap appears well approximated, though somewhat dark and dusky, which may be due to hematoma, but also may be due to tissue ischemia. Therefore, serial monitoring of this site appears to be warranted. The patient has been instructed to apply Adaptic and gauze to this right lower extremity wound on a daily basis, so as to pad and protect the area. Her leg is to be wrapped with an John wrap daily as well. The patient is to return in 1 week for reevaluation. There is question as to whether the reapproximated traumatic flap will remainviable, which will be evaluated duringthe patient's subsequent visits. The patient has been counseled to elevate her lower extremities as much as possible, to remain active, and to avoid prolonged,idle sitting. She has been advised to optimize her nutritional intake, and is using Huy as a supplement. Total time: 26 minutes 03/27/25 [id number] Cosigner Signature (if applicable): CC: ~ Signed [facility]07-14-2025 Instructions* Patient Instructions* Nguyễn Stringer APRN.CNS - 03/22/2025 10:10 AM EDT Gently wash the wound on your left leg and your right leg with soap and water. Continue to follow directions of the wound center for the left leg. For your right leg Steri-Strips have been placed, these tend to lift up at the ends and then eventually fall off. Please check vitamin D level either today or at your next visit. We should discuss treating osteoporosis at your next visit. [facility] NoteHNO ID: [id number] Author: NGUYỄN STRINGER APRN.CNS Service: ? Author Type: Nurse Specialist Type: Progress Notes Filed: 03/22/2025 10:28 Note Text: Subjective Patient ID: Geraldine is a 74 year old female who presents for ER F/U. HPI Presents for an ER follow-up visit. She was seen at [facility] on March 13 and March 18, 2025. She was seen in ER on March 13, 2025 for laceration attributed to her dog. Sutures were placed. Noted to be up-to-date on Tdap. She was seen at [facility] in March 18 after sustaining a fall at home with resulting left thigh and hip pain. She reported losing her balance causing her to fall sliding down the bathroom wall. She reports she did not hit her head or pass out. Due to worsening pain she came to the ER for further evaluation. March 18, 2025 she was found to have nondisplaced compression fracture along the anterior superior endplate of the L4 vertebrae. March 18 x-ray of the pelvis showed hardware from prior ORIF of right subcapital fracture and transverse fracture of the proximal shaft of the right femur. Healed fracture of the right superior inferior pubic rami with residual deformity. No acute fracture is seen in the pelvis. No acute fracture of the femur on x-ray. She has a history of osteoporosis, previously has taken Prolia. Vitamin D: not currently taking now, had a previous elevated level. Notes no pain in her back. Leg Wounds: - Sustained wounds on bilateral legs from dog bites. - Left leg wound treated at a wound center; Geraldine missed last appointment due to feeling unwell and depressed. - Unsure if left leg wound is healed; next appointment is tomorrow. - Applying Xeroform dressing daily to left leg wound. - Right leg wound kept clean and dry; denies drainage. - Denies fever. Back Fracture: - Sustained a back fracture from a fall in March. - Denies current back pain. Osteoporosis: - Not currently taking medication for osteoporosis. - Recently stopped taking vitamin D supplements. ROS Constitutional: (-) fever Musculoskeletal: (+) extremity pain, (-) back pain Skin: (-) wound drainage Psychiatric: (+) depressed mood Objective BP 100/58 Pulse 74 Resp 16 Wt 43.5 kg (95 lb 14.4 oz) BMI 21.12 kg/m? Physical Exam Vitals and nursing note reviewed. Constitutional: Appearance: Normal appearance. HENT: Head: Normocephalic and atraumatic. Eyes: Conjunctiva/sclera: Conjunctivae normal. Cardiovascular: Rate and Rhythm: Normal rate. Pulmonary: Effort: Pulmonary effort is normal. Musculoskeletal: Right lower leg: No edema. Left lower leg: No edema. Skin: General: Skin is warm and dry. Comments: Laceration with 7 sutures right lateral mid calf, well-approximated edges no warmth no drainage no erythema. Sutures removed tolerated well. Steri-Strips placed. Chronic wound left ankle with dressing intact, wound base is red, appears nearly healed. Neurological: General: No focal deficit present. Mental Status: She is alert and oriented to person, place, and time. 1. Laceration of lower extremity, unspecified laterality, subsequent encounter (S81.D) 2. Visit for suture removal (Z48.02) - Laceration on right leg healing well; no signs of infection or drainage. - Removed sutures; applied Steri-Strips to support wound healing. - Advised gentle washing with soap and water; monitor for signs of infection. - Laceration on left leg healing well; continue current wound care regimen as instructed by the wound center. 3. Fall, subsequent encounter (W19.XXXD) - No acute injuries noted from recent fall. - Monitor for any new or worsening symptoms. 4. Acute pain of left hip (M25.552) - No current pain reported. - Monitor for any recurrence of pain. 5. Compression fracture of L4 vertebra with routine healing, subsequent encounter (S32.040D) - No current pain reported; healing as expected. - Follow-up with Dr. oKlb next month. 6. Age-related osteoporosis without current pathological fracture (M81.0) - Discussed importance of bone health and potential medication to strengthen bones. - Ordered vitamin D level check. - Consideration of osteoporosis medication at next visit due to osteoporosis and lumbar compression fracture. Nguyễn Stringer APRN.KOFI Medical Decision Making: Problems: Low: Acute, uncomplicated illness or injury Moderate: 1+ chronic illnesses with change Data: Unique source(s) for external note(s) reviewed: 1 Unique test result(s) reviewed: 1 Unique test(s) ordered: 1 Risk: Moderate: Drug management Medical Decision Making Level: [facility] - [facility] of Present illness Narrative* Nguyễn Stringer APRN.LEAD BURNER SUPERVISOR - 03/22/2025 9:34 AM EDT Subjective Patient ID: Geraldine is a 74 year old female who presents for ER F/U. HPI Presents for an ER follow-up visit. She was seen at [facility] on March 13 and March 18, 2025. She was seen in ER on March 13, 2025 for laceration attributed to her dog. Sutures were placed. Noted to be up-to-date on Tdap. She was seen at [facility] in March 18 after sustaining a fall at home with resulting left thigh and hip pain. She reported losing her balance causing her to fall sliding down the bathroom wall. She reports she did not hit her head or pass out. Due to worsening pain she came to the ER for further evaluation. March 18, 2025 she was found to have nondisplaced compression fracture along the anterior superior endplate of the L4 vertebrae. March 18 x-ray of the pelvis showed hardware from prior ORIF of right subcapital fracture and transverse fracture of the proximal shaft of the right femur. Healed fracture of the right superior inferior pubic rami with residual deformity. No acute fracture is seen in the pelvis. No acute fracture ofthe femur on x-ray. She has a history of osteoporosis, previously has taken Prolia. Vitamin D: not currently taking now, had a previous elevated level. Notes no pain in her back. Leg Wounds: - Sustained wounds on bilateral legs from dog bites. - Left leg wound treated at a wound center; Geraldine missed last appointment due to feeling unwell and depressed. - Unsure if left leg wound is healed; next appointment is tomorrow. - Applying Xeroform dressing daily to left leg wound. - Right leg wound kept clean and dry; denies drainage. - Denies fever. Back Fracture: - Sustained a back fracture from a fall in March. - Denies current back pain. Osteoporosis: - Not currently taking medication for osteoporosis. - Recently stopped taking vitamin D supplements. ROS Constitutional: (-) fever Musculoskeletal: (+) extremity pain, (-) back pain Skin: (-) wound drainage Psychiatric: (+) depressed mood Objective BP 100/58 Pulse 74 Resp 16 Wt 43.5 kg (95 lb 14.4 oz) BMI 21.12 kg/m Physical Exam Vitals and nursing note reviewed. Constitutional: Appearance: Normal appearance. HENT: Head: Normocephalic and atraumatic. Eyes: Conjunctiva/sclera: Conjunctivae normal. Cardiovascular: Rate and Rhythm: Normal rate. Pulmonary: Effort: Pulmonary effort is normal. Musculoskeletal: Right lower leg: No edema. Left lower leg: No edema. Skin: General: Skin is warm and dry. Comments: Laceration with 7 sutures right lateral mid calf, well-approximated edges no warmth no drainage no erythema. Sutures removed tolerated well. Steri- Strips placed. Chronic wound left ankle with dressing intact, wound base is red, appears nearly healed. Neurological: General: No focal deficit present. Mental Status: She is alert and oriented to person, place, and time. 1. Laceration of lower extremity, unspecified laterality, subsequent encounter (U02.963F) 2. Visit for suture removal (Z48.02) - Laceration on right leg healing well; no signs of infection or drainage. - Removed sutures; applied Steri-Strips to support wound healing. - Advised gentle washing with soap and water; monitor for signs of infection. - Laceration on left leg healing well; continue current wound care regimen as instructed by the wound center. 3. Fall, subsequent encounter (W19.XXXD) - No acute injuries noted from recent fall. - Monitor for any new or worsening symptoms. 4. Acute pain of left hip (M25.552) - No current pain reported. - Monitor for any recurrence of pain. 5. Compression fracture of L4 vertebra with routine healing, subsequent encounter (S32.040D) - No current pain reported; healing as expected. - Follow-up with Dr. Kolb next month. 6. Age-related osteoporosis without current pathological fracture (M81.0) - Discussed importance of bone health and potential medication to strengthen bones. - Ordered vitamin D level check. - Consideration of osteoporosis medication at next visit due to osteoporosis and lumbar compressionfracture. Nguyễn Stringer APRN.CNS Medical Decision Making: Problems: Low: Acute, uncomplicated illness or injury Moderate: 1+ chronic illnesses with change Data: Unique source(s) for external note(s) reviewed: 1 Unique test result(s) reviewed: 1 Unique test(s) ordered: 1 Risk: Moderate: Drug management Medical Decision Making Level: 4 - Moderate [facility] Discharge summary [facility] Medical Records Department [address] [place] [address] Emergency Department Summary 03/18/25 MR#: [id number] Acct: [id number] Name: GERALDINE HAIRSTON Elin Rep #:[id number] : 1950 74 From: Will Knapp DO PCP: Dr. Chance Kolb MD Status:RE G ER Location: ED HPI History of Present Illness Chief Complaint: Lower Extremity Injury Narrative Narrative: Patient is a 74-year-old female with past medical history hypertension, hypothyroidism, depression,anxiety, GERD who presents to the emergency department chief complaint of left thigh/hip pain. Patient states that yesterday she lost her balance causing her to slide down her bathroom wall. Patient s tates that she did not hit her head should not pass out. States that originally she thought she bruised her leg causing her pain however felt that the pain was worsening therefore she came here for further evaluation management. Patient denies any blood thinning medications. [facility] Medical History Non-pressure chronic ulcer of left calf with fat layer exposed Traumatic open wound of lower leg Avulsion injury GERD (gastroesophageal reflux disease) HTN (hypertension) Hypothyroidism Depression Anxiety Home Medications ?Medication ?Instructions ?Recorded ?Last Taken ?Type levothyroxine 25 mcg tablet 25 mcg PO DAILY Check with primary 02/07/15 09/29/16 09:00 History doctor Bacillus coagulans-inulin 1 1 ea PO DAILY Check with p skye 12/07/15 09/29/16 09:00 History billion cell-250 mg capsule doctor (Probiotic Formula (inulin)) gabapentin 100 mg capsule 600 mg PO BID Check with loretta mcmillan 12/07/15 09/29/16 21:00 History doctor nifedipine 60 mg tablet,extended 180 mg PO DAILY Check with primary 12/07/15 09/29/16 09:00 History release 24 hr doctor pantoprazole 20 mg tablet,delayed 20 mg PO DAILY [facility] 12/07/15 09/29/16 09:00 History release paroxetine HCl 25 mg 75 mg PO DAILY depression 09/29/16 09:00 History tablet,extended release 24 hr (Paxil CR) aspirin 325 mg tablet,delayed 325 mg PO DAILY HEART 09/29/16 09:00 History release buspirone 5 mg tablet 30 mg PO BID Check with prim lesley 04/26/16 09/29/16 21:00 History doctor budesonide 3 mg 9 mg PO DAILY Check with loretta mcmillan 09/30/16 Unknown History capsule,delayed,extended release doctor (Entocort EC) lorazepam 0.5 mg tablet 0.5 mg PO Q6H PRN PRN Anxiet y ##10 10/03/16 Unknown Rx dicyclomine 20 mg tablet 20 mg PO TID Check with prim lesley 09/02/22 Unknown History doctor Metamucil Check with primary doctor Unknown History food supplemt, lactose-reduced 120 ml PO 4X/DAY Check with 09/07/22 Unknown History 0.08 gram-1.5 kcal/mL oral liquid primary doctor (Ensure Enlive) loperamide 2 mg tablet 2 mg PO Q6H PRN Constipation 09/07/22 Unknown History omeprazole 40 mg PO/SL DAILY Check with 09/07/22 Unknown History primary doctor atorvastatin 80 mg tablet 20 mg (1/4 x 80 mg) PO QHS # 30 tabs 09/08/22 Unknown Rx cyclobenzaprine 5 mg tablet 5 mg PO TID PRN muscle spa sm #14 03/18/25 Unknown Rx tabs ondansetron 4 mg disintegrating 4 mg PO Q6H PRN nausea and 03/18/25 Unknown Rx tablet vomiting #20 tabs oxycodone-acetaminophen 5 mg-325 1 tab PO Q6H PRN pain 2 days #8 03/18/25 Unknown Rx mg tablet (Endocet) tabs Allergy/AdvReac Type Severity Reaction Status Date / Time acetaminophen (From Percocet) Allergy Other Verified 03/13/25 19:15 oxycodone (From Percocet) Allergy Other Verified 03/13/25 19:15 codeine AdvReac Nausea & Verified 03/13/25 19:15 dizziness oxycodone HCl (From Percocet) AdvReac Nausea & Verified 03/13/25 19:15 dizziness Family History Father Diabetes Dementia Surgical History S/P ORIF (open reduction internal fixation) fracture History of surgery on wrist History of cataract surgery History of ankle surgery Social History household members: none Smoking Status: Never smoker substance use type: does not use ROS ROS ED ROS Narrative Constitutional: Denies any headaches Eyes: Denies double vision blurry vision Cardiovascular: Denies chest pain Respiratory: Denies coughing wheezing shortness of breath Abdomen: Denies nausea vomiting : Denies any urinary symptoms Neurological: Denies any numbness, wheeze, tingling Musculoskeletal: Complains of left hip, thigh and low back pain Skin: Complains of bruising to the left thigh EXAM Physical Exam Narrative Exam Narrative: General: Patient is lying in bed rest comfortably do not appear to be acute distress Head: Atraumatic, normocephalic Eyes: PERRL bilaterally, EOMI blood, no conjunctival injection noted, no Tineo sign no raccoon eyes Neck: Soft, supple, trachea midline, no tenderness palpation midline cervical spine Cardiovascular: Regular rate and rhythm Respiratory: Clear to auscultation bilaterally Abdomen: Soft, nondistended, nontender to palpation Musculoskeletal: No tenderness palpation midline of thoracic spine, patient is tenderness palpationat the L5 level no step-offs or deformities noted, patient does have full range of motion of her hip however she states that she does have mild pain associated with this, mild tenderness palpation over the left femur Extremities: Radial pulses +2/4 in the bilateral extremities, +4/5 strength noted in the bilateral upper and lower extremities Neurological: Patient following commands and that she was at [facility] year is 2024 Skin: Warm, dry, intact no rashes noted patient does have some ecchymosis noted over the lateral left thigh Const Vital Signs: 03/18/25 09:23 Temperature 98 F Temperature Source Temporal Pulse Rate 81 Respiratory Rate 14 Blood Pressure 117/59 L Blood Pressure Mean 78 Pulse Ox 94 Oxygen Delivery Method Room Air MDM MDM MDM Narrative Medical decision making narrative: Patient is a 74-year-old female who presented to the emergency department the chief complaint of fall yesterday with left lower extremity/thigh pain and low back pain. On the differential diagnosis includes but not limited to compression fracture, hip fracture, femur fracture. Once workup is obtained reviewed she will be reevaluated. Patient femur x-ray reviewed by myself by radiology showed no acute fracture or dislocation. Patient's pelvis x-ray reviewed by myself by radiology showed no acute fracture or dislocation. Patient CTlumbar spine showed a nondisplaced compression fracture along the anterior superior endplate of theL4 vertebrae consistent where she is tender. Called and spoke with on-call orthopedic surgeon Dr. Brito who states that he can follow-up with her in the outpatient setting. Pain control. Patient ambulated here in the emergency department multiple times without difficulty she remains neurovascularly intact. She is agreeable with this plan as well as significant other at bedside. She was given prescriptions for Endocet and Zofran for severe pain otherwise she is to rotate Tylenol andibuprofen asxhsk-jxa-olphv she also began prescription for cyclobenzaprine. Allquestion concerns answered she was discharged home in stable condition peer Radiography Diagnostic Testing: Clinical Impression(s) from Imaging Studies Pelvis X-Ray 03/18/25 10:03 IMPRESSION: No acute fracture is seen. Reading Location: [facility] 03/18/25 10:10 IMPRESSION: LUMBAR DEGENERATIVE DISC AND FACET DISEASE. Nondisplaced compression fracture along the anterior superior endplate of the [id number]. Reading Location: [facility] Femur X-Ray 03/18/25 10:20 IMPRESSION: NO ACUTE FRACTURE OR DISLOCATION. Reading Location: [facility]--1 Discharge Plan Triage Chief Complaint: Lower Extremity Injury ED Provider: Will Knapp Dx/Rx/DC Orders Clinical Impression: Fall, Anxiety, HTN (hypertension), Compression fracture, Left leg pain Prescriptions: New ondansetron 4 mg tablet,disintegrating 4 mg PO Q6H PRN (Reason: nausea and vomiting) Qty: 20 0RF cyclobenzaprine 5 mg tablet 5 mg PO TID PRN (Reason: muscle spasm) Qty: 14 0RF oxycodone-acetaminophen [Endocet] 5-325 mg tablet 1 tab PO Q6H PRN (Reason: pain) 2 Days Qty: 8 0RF No Action levothyroxine 25 MCG tablet 25 mcg PO DAILY Patient Comments: thyroid pantoprazole 20 MG tablet 20 mg PO DAILY Patient Comments: acid reflux nifedipine 60 MG tablet 180 mg PO DAILY Patient Comments: heart rate gabapentin 100 MG capsule 600 mg PO BID Patient Comments: nerve pain Probiotic Formula (inulin) 1 EACH capsule 1 ea PO DAILY Patient Comments: stomach; treat IBS paroxetine HCl [Paxil CR] 25 MG tablet extended release 24 hr 75 mg PO DAILY Patient Comments: Treat major depressive disorder buspirone 5 MG tablet 30 mg PO BID aspirin 325 MG tablet 325 mg PO DAILY Patient Comments: blood thinner budesonide [Entocort EC] 3 MG capsule,delayed,extend.release 9 mg PO DAILY lorazepam 0.5 MG tablet 0.5 mg PO Q6H PRN PRN (Reason: Anxiety) Qty: 10 0RF dicyclomine 20 mg tablet 20 mg PO TID Ensure Enlive 120 ML liquid 120 ml PO 4X/DAY omeprazole 40 mg capsule 40 mg PO/SL DAILY loperamide 2 mg Tablet 2 mg PO Q6H PRN (Reason: Constipation) Metamucil atorvastatin 80 mg Tablet 20 mg PO QHS Qty: 30 0RF Primary Care Provider: Chance Kolb Referrals: Chance Kolb MD [Primary Care Provider] - Activity Restrictions/Additional Instructions: Use prescriptions as prescribed use the Endocet and Zofran for severe pain and sure that you use the Zofran with the Endocet as this will upset your stomach. For mild to moderate pain you should rotate Tylenol and ibuprofen [id number] when you do this you can take something every 3 hours withmax dose of Tylenol in 24 hours 3200 mg. You need to follow-up with Dr. Brito. Your CT didshow a compression fracture of your L4 vertebrae. Return with worsening symptoms or other concerns Print Language: Dutch Disposition Disposition: Home, Self Care What to do if you have Problems For any increased pain, shortness of breath, bleeding, nausea or vomiting, chestpain, or any unexpected problems, contact your Primary Care Provider. Call [facility] ([phone]) or report tothe closest Emergency Room. Call 911 if necessary. 03/18/25 1248 Cosigner Signature (if applicable): CC: Dr. Chance Kolb MD ~ Signed [facility]07-10-2025 Radiology Diagnostic study note [facility] [address], [place] [id number] Femur Min 2 Views MR#: [id number] Acct: [id number] Name: VARUNGERALDINE IRELAND Elin Rep #: [id number] 03 : 1950 F 74 From: Jaycob Petty MD PCP: Dr. Chance Kolb MD Status: RE G ER Study:Femur Min 2 Views Date of Exam: Exam# [id number] Ordering Dr: Jenny Knapp DO PROCEDURE: FEMUR MIN 2 VIEWS 03/18/2025 REASON FOR EXAM: FALL TECHNIQUE: FEMUR MIN 2 VIEWS COMPARISON: None FINDINGS: Bones: No fracture or dislocation. Joints: Moderate degree of joint space narrowing of the left hip joint. No fracture or dislocation. Soft tissues: Soft tissues are unremarkable. Other: RAD/Femur Min 2 Views IMPRESSION: NO ACUTE FRACTURE OR DISLOCATION. Reading Location: [place] [address] CC: Dr. Chance Kolb MD; Dr. Will Knapp DO ~ Prescription Clerk Lenses: Signed [facility]07-10-2025 Radiology Diagnostic study note [facility] [address] [place] [address] Pelvis 1 or 2 Views MR#: [id number] Acct: [id number] Name: GERALDINE HAIRSTON Rep #: [id number] 02 : 1950 F 74 From: Jaycob Petty MD PCP: Dr. Chance Kolb MD Status: RE G ER Study:Pelvis 1 or 2 Views Date of Exam: 03/18/25 Exam# [id number] Ordering Dr: Jenny Knapp DO PROCEDURE: PELVIS 1 OR 2 VIEWS 03/18/2025 REASON FOR EXAM: FALL TECHNIQUE: PELVIS 1 OR 2 VIEWS COMPARISON: None FINDINGS: Hardware: Status post ORIF of a right subcapital fracture and transverse fracture of the proximal shaft of the right femur. Healed fractures of the right superior inferior pubic rami with residual deformity. Bones: No acute fracture is seen. Joints: Degenerative changes of the sacroiliac joints as well as the left hip joint. soft tissues: Unremarkable Other: RAD/Pelvis 1 or 2 Views IMPRESSION: No acute fracture is seen. Reading Location: [place] [address] CC: Dr. Chance Kolb MD; Dr. Will Knapp DO ~ Prescription Clerk Lenses: Signed [facility]07-10-2025 Radiology Diagnostic study note [facility] [address] [place], [place] [id number] Spine Lumbar without Contrast MR#: [id number] Acct: [id number] Name: GERALDINE HAIRSTON Rep #: [id number] 00 : 1950 F 74 From: Jaycob Petty MD PCP: Dr. Chance Kolb MD Status: RE G ER Study:Spine Lumbar without Contrast Date of E xam: 03/18/25 Exam# [id number] Ordering Dr: Jenny Knapp DO PROCEDURE: SPINE LUMBAR WITHOUT CONTRAST 03/18/2025 REASON FOR EXAM: LOW BACK PAIN, FALL Left leg pain following a recent fall. TECHNIQUE: SPINE LUMBAR WITHOUT CONTRAST Coronal and Sagittal reconstruction series were provided. One or more dose reduction techniques were used (e.g., Automated exposure control, adjustment of the mA and/or kV according to patient size, use of iterative reconstruction technique COMPARISON: None RADIATION DOSE SUMMARY: CTDlvol: 13.82 mGy DLP: 439.46 mGycm FINDINGS: Vertebrae: Loss of height of the superior endplate of the L4 vertebrae. Spondylosis. Alignment: Loss of the normal lumbar lordosis. L1-2: Mild degree of disc space narrowing. No significant stenosis seen. L2-3: Marked degree of disc space narrowing and degeneration of the disc. Anterior spondylosis moreprominent on the right side. Mild right neural foraminal stenosis. L3-4: Mild degree of disc space narrowing. Diffuse posterior disc bulge. Spondylosis. Facet joint osteoarthritis. Mild bilateral neural foraminal stenosis. L4-5: There is evidence of a nondisplaced fracture along the anterior superior endplate of the L4 vertebrae. No evidence of spinal stenosis. Mild degree of diffuse posterior disc bulge as well as L5-S1: Moderate degree of disc space narrowing and disc degeneration. Facet joint osteoarthritis and hypertrophy. No significant stenosis seen. Sacrum: Unremarkable CT/Spine Lumbar without Contrast IMPRESSION: LUMBAR DEGENERATIVE DISC AND FACET DISEASE. Nondisplaced compression fracture along the anterior superior endplate of the [id number]. Reading Location: [facility] CC: Dr. Chance Kolb MD; Dr. Will Knapp DO ~ Prescription Clerk Lenses: Signed [facility]07-05-2025 Discharge summary [facility] Medical Records Department [address] [place] [address] Emergency Department Summary 03/13/25 MR#: [id number] Acct: [id number] Name: GERALDINE HAIRSTON Rep #:[id number] 25 : 1950 74 From: Will Knapp DO PCP: Dr. Chance Kolb MD Status:RE G ER Location: ED HPI History of Present Illness Chief Complaint: Laceration Narrative Narrative: Patient is a 74-year-old female with past medical history of anxiety, depression, hypothyroidism, hypertension, GERD who presents to the emergency department the chief complaint of right leg wound. Patient states that her dog scratched her earlier this evening and notes that she came here to be further evaluated as she states that she may need stitches she is not sure. Patient states that this isher dog. Patient states that her tetanus shot was updated when she was here last which was approximately 2 months ago. [facility] Medical History Non-pressure chronic ulcer of left calf with fat layer exposed Traumatic open wound of lower leg Avulsion injury GERD (gastroesophageal reflux disease) HTN (hypertension) Hypothyroidism Depression Anxiety Home Medications ?Medication ?Instructions ?Recorded ?Last Taken ?Type levothyroxine 25 mcg tablet 25 mcg PO DAILY Check with primary 02/07/15 09/29/16 09:00 History doctor Bacillus coagulans-inulin 1 1 ea PO DAILY Check with jesus cheung 12/07/15 09/29/16 09:00 History billion cell-250 mg capsule doctor (Probiotic Formula (inulin)) gabapentin 100 mg capsule 600 mg PO BID Check with loretta mcmillan 12/07/15 09/29/16 21:00 History doctor nifedipine 60 mg tablet,extended 180 mg PO DAILY Check with primary 12/07/15 09/29/16 09:00 History release 24 hr doctor pantoprazole 20 mg tablet,delayed 20 mg PO DAILY [facility] 12/07/15 09/29/16 09 :00 History release paroxetine HCl 25 mg 75 mg PO DAILY depression 09/29/16 09:00 History tablet,extended release 24 hr (Paxil CR) aspirin 325 mg tablet,delayed 325 mg PO DAILY HEART 09/29/16 09:00 History release buspirone 5 mg tablet 30 mg PO BID Check with prim lesley 04/26/16 09/29/16 21:00 History doctor budesonide 3 mg 9 mg PO DAILY Check with loretta deyanira 09/30/16 Unknown History capsule,delayed,extended release doctor (Entocort EC) lorazepam 0.5 mg tablet 0.5 mg PO Q6H PRN PRN Anxiet y ##10 10/03/16 Unknown Rx dicyclomine 20 mg tablet 20 mg PO TID Check with prim lesley 09/02/22 Unknown History doctor Metamucil Check with primary doctor Unknown History food supplemt, lactose-reduced 120 ml PO 4X/DAY Check with 09/07/22 Unknown History 0.08 gram-1.5 kcal/mL oral liquid primary doctor (Ensure Enlive) loperamide 2 mg tablet 2 mg PO Q6H PRN Constipation 09/07/22 Unknown History omeprazole 40 mg PO/SL DAILY Check with 09/07/22 Unknown History primary doctor atorvastatin 80 mg tablet 20 mg (1/4 x 80 mg) PO QHS # 30 tabs 09/08/22 Unknown Rx cephalexin 500 mg capsule 500 mg PO BID #12 caps 09/08 Unknown Rx amoxicillin 875 mg-potassium 875 mg (0.875 x 875-125 m g) PO 04/29/23 Unknown Rx clavulanate 125 mg tablet Q12H #10 TABLETS Allergy/AdvReac Type Severity Reaction Status Date / Time acetaminophen (From Percocet) Allergy Other Verified 03/13/25 19:15 oxycodone (From Percocet) Allergy Other Verified 03/13/25 19:15 codeine AdvReac Nausea & Verified 03/13/25 19:15 dizziness oxycodone HCl (From Percocet) AdvReac Nausea & Verified 03/13/25 19:15 dizziness Family History Father Diabetes Dementia Surgical History S/P ORIF (open reduction internal fixation) fracture History of surgery on wrist History of cataract surgery History of ankle surgery Social History household members: none Smoking Status: Never smoker substance use type: does not use ROS ROS ED ROS Narrative Neurological: Denies numbness, weakness, tingling Musculoskeletal: Complains of cut to the lower right leg as noted above EXAM Physical Exam Narrative Exam Narrative: General: Patient lying in bed rest comfortably did not appear to be in acute distress Head: Atraumatic, normocephalic Eyes: PERRL bilaterally, EOMI blood, no conjunctival injection noted Neck: Soft, supple, trachea midline Cardiovascular: Regular rate and rhythm no murmurs gallops rubs are noted Respiratory: Clear to auscultation bilaterally no rales rhonchi or wheeze noted Abdomen: Soft, nondistended, no tenderness palpation Extremities: +5/5 strength noted in the bilateral upper and lower extremities Neurological: Patient follow commands that she was at [facility] years 2024 Skin: Warm, dry, patient has a proximately 3 x 4 complex triangular-shaped laceration/avulsion injury noted to the right anterior hector with minimal active bleeding noted Const Vital Signs: 03/13/25 19:13 Temperature 98.3 F Temperature Source Oral Pulse Rate 92 Respiratory Rate 18 Blood Pressure 138/115 H Blood Pressure Mean 122 Pulse Ox 99 Oxygen Delivery Method Room Air MDM MDM MDM Narrative Medical decision making narrative: Patient is a 74-year-old female who presents to the emergency department with a chief complaint of scratched by her dog to the right lower extremity. On the differential diagnosis includes but limited to skin abrasion, skin tear, laceration. Patient's tetanus shot is up-to-date. Patient had laceration repaired here in the emergency department tolerated this well without complication see procedure note for separate details. She was advised to watch out for signs of infection and if this does occur call her primary care physician or return to the emergency department. Patient was advised to not soak her sutures and have these removed in approximately 7 to 10 days. She is agreeable to plan would like to go home at this point time all question concerns answered she was discharged home in stable condition. Procedure note Procedure name: Laceration repair Indication: Reduce risk of infection Location: Right anterior hector complex triangular-shaped laceration measuring approximately 3 x 4 cm Preprocedure diagnosis: Laceration Postprocedure diagnosis: Repaired laceration Informed consent was obtained prior to procedure started. Procedure: The appropriate timeout was taken. The area was prepped and draped in usual sterile fashion. Local anesthesia was achieved using 3 cc of lidocaine 1% without epinephrine. Wound was copiously irrigated. 7 4-0 Ethilon interruptedsutures were placed. Estimated blood loss was less than 0.5 mL. Dressing was applied to the area andanticipatory guidance, as well as standard postprocedure care was explained. Return precautions are given. Patient tolerated procedure well without any complications. Follow-up visit for suture removal and evaluation of laceration. Discharge Plan Triage Chief Complaint: Laceration ED Provider: Will Knapp Dx/Rx/DC Orders Clinical Impression: Laceration of leg, Anxiety, HTN (hypertension), GERD (gastroesophageal reflux disease) Prescriptions: No Action levothyroxine 25 MCG tablet 25 mcg PO DAILY Patient Comments: thyroid pantoprazole 20 MG tablet 20 mg PO DAILY Patient Comments: acid reflux nifedipine 60 MG tablet 180 mg PO DAILY Patient Comments: heart rate gabapentin 100 MG capsule 600 mg PO BID Patient Comments: nerve pain Probiotic Formula (inulin) 1 EACH capsule 1 ea PO DAILY Patient Comments: stomach; treat IBS paroxetine HCl [Paxil CR] 25 MG tablet extended release 24 hr 75 mg PO DAILY Patient Comments: Treat major depressive disorder buspirone 5 MG tablet 30 mg PO BID aspirin 325 MG tablet 325 mg PO DAILY Patient Comments: blood thinner budesonide [Entocort EC] 3 MG capsule,delayed,extend.release 9 mg PO DAILY lorazepam 0.5 MG tablet 0.5 mg PO Q6H PRN PRN (Reason: Anxiety) Qty: 10 0RF dicyclomine 20 mg tablet 20 mg PO TID Ensure Enlive 120 ML liquid 120 ml PO 4X/DAY omeprazole 40 mg capsule 40 mg PO/SL DAILY loperamide 2 mg Tablet 2 mg PO Q6H PRN (Reason: Constipation) Metamucil atorvastatin 80 mg Tablet 20 mg PO QHS Qty: 30 0RF cephalexin 500 mg capsule 500 mg PO BID Qty: 12 0RF amoxicillin-pot clavulanate [amoxicillin-pot clavulanate] 875-125 mg tablet 875 mg PO Q12H Qty: 10 0RF Primary Care Provider: Chance Kolb Referrals: Chance Kolb MD [Primary Care Provider] - Activity Restrictions/Additional Instructions: Have your sutures removed in approximately 7 to 10 days. Watch out for signs infection such as surrounding redness or purulent drainage if this is to occur come back to the emergency department or call your primary care doctor. Do not soak your sutures do not pick at them. Return with any other concerns Print Language: Dutch Disposition Disposition: Home, Self Care What to do if you have Problems For any increased pain, shortness of breath, bleeding, nausea or vomiting, chestpain, or any unexpected problems, contact your Primary Care Provider. Call [facility] ([phone]) or report tothe closest Emergency Room. Call 911 if necessary. 03/13/252103 Cosigner Signature (if applicable): CC: Dr. Chance Kolb MD ~ Signed [facility]07-05-2025 Discharge summary Author Will Knapp [facility] Note Date/Time March 13, 2025 9:04p [facility] Medical Records Department [address] [place] [address] Emergency Department Summary 03/13/25 MR#: [id number] Acct: [id number] Name: GERALDINE HAIRSTON Rep #:[id number] 25 : 1950 74 From: Will Knapp DO PCP: Dr. Chance Kolb MD Status:RE G ER Location: ED HPI History of Present Illness Chief Complaint: Laceration Narrative Narrative: Patient is a 74-year-old female with past medical history of anxiety, depression, hypothyroidism, hypertension, GERD who presents to the emergency department the chief complaint of right leg wound. Patient states that her dog scratched her earlier this evening and notes that she came here to be further evaluated as she states that she may need stitches she is not sure. Patient states that this is her dog. Patient states that her tetanus shot was updated when she was here last which was approximately 2 months ago. [facility] Medical History Non-pressure chronic ulcer of left calf with fat layer exposed Traumatic open wound of lower leg Avulsion injury GERD (gastroesophageal reflux disease) HTN (hypertension) Hypothyroidism Depression Anxiety Home Medications ?Medication ?Instructions ?Recorded ?Last Taken ?Type levothyroxine 25 mcg tablet 25 mcg PO DAILY Check with primary 02/07/15 09/29/16 09:00 History doctor Bacillus coagulans-inulin 1 1 ea PO DAILY Check with p skye 12/07/15 09/29/16 09:00 History billion cell-250 mg capsule doctor (Probiotic Formula (inulin)) gabapentin 100 mg capsule 600 mg PO BID Check with [facility] 12/07/15 09/29/16 21:00 History doctor nifedipine 60 mg tablet,extended 180 mg PO DAILY Check with primary 12/07/15 09/29/16 09:00 History release 24 hr doctor pantoprazole 20 mg tablet,delayed 20 mg PO DAILY [facility] 12/07/15 09/29/16 09 :00 History release paroxetine HCl 25 mg 75 mg PO DAILY depression 09/29/16 09:00 History tablet,extended release 24 hr (Paxil CR) aspirin 325 mg tablet,delayed 325 mg PO DAILY HEART 09/29/16 09:00 History release buspirone 5 mg tablet 30 mg PO BID Check with prim lesley 04/26/16 09/29/16 21:00 History doctor budesonide 3 mg 9 mg PO DAILY Check with [facility] 09/30/16 Unknown History capsule,delayed,extended release doctor (Entocorjenny EC) lorazepam 0.5 mg tablet 0.5 mg PO Q6H PRN PRN Anxiet y ##10 10/03/16 Unknown Rx dicyclomine 20 mg tablet 20 mg PO TID Check with prim lesley 09/02/22 Unknown History doctor Metamucil Check with primary doctor Unknown History food supplemt, lactose-reduced 120 ml PO 4X/DAY Check with 09/07/22 Unknown History 0.08 gram-1.5 kcal/mL oral liquid primary doctor (Ensure Enlive) loperamide 2 mg tablet 2 mg PO Q6H PRN Constipation 09/07/22 Unknown History omeprazole 40 mg PO/SL DAILY Check with 09/07/22 Unknown History primary doctor atorvastatin 80 mg tablet 20 mg (1/4 x 80 mg) PO QHS # 30 tabs 09/08/22 Unknown Rx cephalexin 500 mg capsule 500 mg PO BID #12 caps 09/08 Unknown Rx amoxicillin 875 mg-potassium 875 mg (0.875 x 875-125 m g) PO 04/29/23 Unknown Rx clavulanate 125 mg tablet Q12H #10 TABLETS Allergy/AdvReac Type Severity Reaction Status Date / Time acetaminophen (From Percocet) Allergy Other Verified 03/13/25 19:15 oxycodone (From Percocet) Allergy Other Verified 03/13/25 19:15 codeine AdvReac Nausea & Verified 03/13/25 19:15 dizziness oxycodone HCl (From Percocet) AdvReac Nausea & Verified 03/13/25 19:15 dizziness Family History Father Diabetes Dementia Surgical History S/P ORIF (open reduction internal fixation) fracture History of surgery on wrist History of cataract surgery History of ankle surgery Social History household members: none Smoking Status: Never smoker substance use type: does not use ROS ROS ED ROS Narrative Neurological: Denies numbness, weakness, tingling Musculoskeletal: Complains of cut to the lower right leg as noted above EXAM Physical Exam Narrative Exam Narrative: General: Patient lying in bed rest comfortably did not appear to be in acute distress Head: Atraumatic, normocephalic Eyes: PERRL bilaterally, EOMI blood, no conjunctival injection noted Neck: Soft, supple, trachea midline Cardiovascular: Regular rate and rhythm no murmurs gallops rubs are noted Respiratory: Clear to auscultation bilaterally no rales rhonchi or wheeze noted Abdomen: Soft, nondistended, no tenderness palpation Extremities: +5/5 strength noted in the bilateral upper and lower extremities Neurological: Patient follow commands that she was at [facility] years 2024 Skin: Warm, dry, patient has a proximately 3 x 4 complex triangular-shaped laceration/avulsion injury noted to the right anterior hector with minimal active bleeding noted Const Vital Signs: 03/13/25 19:13 Temperature 98.3 F Temperature Source Oral Pulse Rate 92 Respiratory Rate 18 Blood Pressure 138/115 H Blood Pressure Mean 122 Pulse Ox 99 Oxygen Delivery Method Room Air MDM MDM MDM Narrative Medical decision making narrative: Patient is a 74-year-old female who presents to the emergency department with a chief complaint of scratched by her dog to the right lower extremity. On the differential diagnosis includes but limited to skin abrasion, skin tear, laceration. Patient's tetanus shot is up-to-date. Patient had laceration repaired here in the emergency department tolerated this well without complication see procedure note for separate details. She was advised to watch out for signs of infection and if this does occur call her primary care physician or return to the emergency department. Patient was advised to not soak her sutures and have these removed in approximately 7 to 10 days. She is agreeable to plan would like to go home at this point time all question concerns answered she was discharged home in stable condition. Procedure note Procedure name: Laceration repair Indication: Reduce risk of infection Location: Right anterior hector complex triangular-shaped laceration measuring approximately 3 x 4 cm Preprocedure diagnosis: Laceration Postprocedure diagnosis: Repaired laceration Informed consent was obtained prior to procedure started. Procedure: The appropriate timeout was taken. The area was prepped and draped in usual sterile fashion. Local anesthesia was achieved using 3 cc of lidocaine 1% without epinephrine. Wound was copiously irrigated. 7 4-0 Ethilon interruptedsutures were placed. Estimated blood loss was less than 0.5 mL. Dressing was applied to the area andanticipatory guidance, as well as standard postprocedure care was explained. Return precautions are given. Patient tolerated procedure well without any complications. Follow-up visit for suture removal and evaluation of laceration. Discharge Plan Triage Chief Complaint: Laceration ED Provider: Will Knapp Dx/Rx/DC Orders Clinical Impression: Laceration of leg, Anxiety, HTN (hypertension), GERD (gastroesophageal reflux disease) Prescriptions: No Action levothyroxine 25 MCG tablet 25 mcg PO DAILY Patient Comments: thyroid pantoprazole 20 MG tablet 20 mg PO DAILY Patient Comments: acid reflux nifedipine 60 MG tablet 180 mg PO DAILY Patient Comments: heart rate gabapentin 100 MG capsule 600 mg PO BID Patient Comments: nerve pain Probiotic Formula (inulin) 1 EACH capsule 1 ea PO DAILY Patient Comments: stomach; treat IBS paroxetine HCl [Paxil CR] 25 MG tablet extended release 24 hr 75 mg PO DAILY Patient Comments: Treat major depressive disorder buspirone 5 MG tablet 30 mg PO BID aspirin 325 MG tablet 325 mg PO DAILY Patient Comments: blood thinner budesonide [Entocort EC] 3 MG capsule,delayed,extend.release 9 mg PO DAILY lorazepam 0.5 MG tablet 0.5 mg PO Q6H PRN PRN (Reason: Anxiety) Qty: 10 0RF dicyclomine 20 mg tablet 20 mg PO TID Ensure Enlive 120 ML liquid 120 ml PO 4X/DAY omeprazole 40 mg capsule 40 mg PO/SL DAILY loperamide 2 mg Tablet 2 mg PO Q6H PRN (Reason: Constipation) Metamucil atorvastatin 80 mg Tablet 20 mg PO QHS Qty: 30 0RF cephalexin 500 mg capsule 500 mg PO BID Qty: 12 0RF amoxicillin-pot clavulanate [amoxicillin-pot clavulanate] 875-125 mg tablet 875 mg PO Q12H Qty: 10 0RF Primary Care Provider: Chance Kolb Referrals: Chance Kolb MD [Primary Care Provider] - Activity Restrictions/Additional Instructions: Have your sutures removed in approximately 7 to 10 days. Watch out for signs infection such as surrounding redness or purulent drainage if this is to occur come back to the emergency department or call your primary care doctor. Do not soak your sutures do not pick at them. Return with any other concerns Print Language: Dutch Disposition Disposition: Home, Self Care What to do if you have Problems For any increased pain, shortness of breath, bleeding, nausea or vomiting, chestpain, or any unexpected problems, contact your Primary Care Provider. Call [facility] ([phone]) or report to the closest Emergency Room. Call 911 if necessary. 03/13/252103 <Electronically signed by Will Knapp DO> Cosigner Signature (if applicable): CC: Dr. Chance Kolb MD ~ Signed [facility] Work Phone: [phone]) 705-434207-05-2025 Hospital Discharge instructionsAdditional Instructions Have your sutures removed in approximately 7 to 10 days. Watch out for signs infection such as surrounding redness or purulent drainage if this is to occur come back to the emergency department or call your primary care doctor. Do not soak your sutures do not pick at them. [facility] Work Phone: [phone]) 503-850407-03-2025 History and physical note Author Cedric Gibbons [facility] Note Date/Time March 11, 2025 1:23p m [facility] [address] [place] [address] H&P Exam - Wound Care 03/11/25 1318 MR#: [id number] Acct: [id number] Name: GERALDINE HAIRSTON Rep #:[id number] 20 : 1950 74 From: Cedric Worthington PCP: Dr. Chance oKlb MD Status:RE G RCR Location: History of Present Illness Date of Service: 03/09/25 Chief Complaint: Traumatic avulsion injury of the left medial calf History of Wound: This is a 74-year-old female who sustained a traumatic injury to her left medial calf on January 01, 2025. At the time of her injury, she presented to the [facility] Emergency Department, where she was found to have an avulsion injury with a significant adherent cutaneous flap. The injury was caused by the nails of her dog, who had jumped off the couch. Inthe Emergency Department, the flap was sutured in place using seven 5-0 nylon sutures. The patient was placed on Keflex and Augmentin orally, and was discharged. The patient is generally healthy for her age, though has a history of aruu-ouce-yhhxfabzlmkpygo, GERD, hypertension, hypothyroidism, and osteoporosis. She denies a history of diabetes mellitus, myocardial infarction,cerebrovascular accident, renal disease, and pulmonary disease. Her BMI is 19.5. She is . [facility] Medical History Non-pressure chronic ulcer of left calf with fat layer exposed Traumatic open wound of lower leg Avulsion injury GERD (gastroesophageal reflux disease) HTN (hypertension) Hypothyroidism Depression Anxiety Home Medications ?Medication ?Instructions ?Recorded ?Last Taken ?Type levothyroxine 25 mcg tablet 25 mcg PO DAILY Check with primary 02/07/15 09/29/16 09:00 History doctor Bacillus coagulans-inulin 1 1 ea PO DAILY Check with p rimary 12/07/15 09/29/16 09:00 History billion cell-250 mg capsule doctor (Probiotic Formula (inulin)) gabapentin 100 mg capsule 600 mg PO BID [facility] 12/07/15 09/29/16 21:00 History doctor nifedipine 60 mg tablet,extended 180 mg PO DAILY Check with primary 12/07/15 0 09/29/16 09:00 History release 24 hr doctor pantoprazole 20 mg tablet,delayed 20 mg PO DAILY [facility] 12/07/15 09/29/16 09:00 History release paroxetine HCl 25 mg 75 mg PO DAILY depression 09/29/16 09:00 History tablet,extended release 24 hr (Paxil CR) aspirin 325 mg tablet,delayed 325 mg PO DAILY HEART 09/29/16 09:00 History release buspirone 5 mg tablet 30 mg PO BID Check with prim lesley 04/26/16 09/29/16 21:00 History doctor budesonide 3 mg 9 mg PO DAILY Check with [facility] 09/30/16 Unknown History capsule,delayed,extended release doctor (Entocort EC) lorazepam 0.5 mg tablet 0.5 mg PO Q6H PRN PRN Anxiet y ##10 10/03/16 Unknown Rx dicyclomine 20 mg tablet 20 mg PO TID Check with prim les[facility] 09/02/22 Unknown History doctor Metamucil Check with primary doctor Unknown History food supplemt, lactose-reduced 120 ml PO 4X/DAY Check with 09/07/22 Unknown History 0.08 gram-1.5 kcal/mL oral liquid primary doctor (Ensure Enlive) loperamide 2 mg tablet 2 mg PO Q6H PRN Constipation 09/07/22 Unknown History omeprazole 40 mg PO/SL DAILY Check with 09/07/22 Unknown History primary doctor atorvastatin 80 mg tablet 20 mg (1/4 x 80 mg) PO QHS # 30 tabs 09/08/22 Unknown Rx cephalexin 500 mg capsule 500 mg PO BID #12 caps 09/08 Unknown Rx amoxicillin 875 mg-potassium 875 mg (0.875 x 875-125 m g) PO 04/29/23 Unknown Rx clavulanate 125 mg tablet Q12H #10 TABLETS Allergy/AdvReac Type Severity Reaction Status Date / Time acetaminophen (From Percocet) Allergy Other Verified 01/06/25 14:05 oxycodone (From Percocet) Allergy Other Verified 01/06/25 14:05 codeine AdvReac Nausea & Verified 01/06/25 14:05 dizziness oxycodone HCl (From Percocet) AdvReac Nausea & Verified 01/06/25 14:05 dizziness Family History Father Diabetes Dementia Surgical History S/P ORIF (open reduction internal fixation) fracture History of surgery on wrist History of cataract surgery History of ankle surgery Social History household members: none Smoking Status: Never smoker substance use type: does not use Physical Exam Const alert, oriented x3, no apparent distress and average body habitus Constitutional Narrative: The patient's BMI is 19.5. General Appearance: cooperative, comfortable, well kempt and well developed Orientation / Consciousness: awake, oriented to person, oriented to place and oriented to time Exam Limitations: no limitations HEENT normocephalic and head/scalp atraumatic Head and Scalp: normal to inspection, normocephalic and atraumatic Face and Sinus: normal facial exam Nose: external nose normal External Ear: external ears normal Eyes EOMs intact bilaterally General Eye: normal appearance of both eyes Neck full ROM Resp normal respiratory effort, normal air movement, no retractions and no use of accessory muscles Effort and Inspection: able to speak in complete sentences Extremity General Extremity: Negative for clubbing or cyanosis Skin Wound Narrative: A traumatic wound is noted on the patient's left medial calf. It is an avulsioninjury, with a resultant flap of skin. At the time of the patient's original Emergency Department visit, the flap was repositioned, and sutured in place using 5-0 nylon sutures. The sutures have been removed during previous visits. A large portion of the avulsion flap, which had been repositioned and sutured inplace, subsequently necrosed and was no longer viable. The current wound demonstrates a bed of generally pink, healthy granulation tissue with a small amount of bioburden. It is full-thickness in nature, extending through all layers of the dermis and into the subcutaneous tissues. Wound margins are well beveled. There is no sign of infection or cellulitis. No significant swelling or edema are noted in the left lower extremity. The wound continues to diminishin size, and dimensions are documented elsewhere. Neuro oriented x3, CN's II-XII intact bilaterally, moves all extremities, no focal motor deficits and no sensory deficits noted Sensorium / Orientation: awake, alert, oriented to person, oriented to place andoriented to time Speech: speech normal Psych Appearance: grossly normal and appropriate Attitude: calm Activity / Motor Behavior: appropriate eye contact Speech: normal speech Mood & Affect: euthymic mood Thought Process: normal thought process Thought Content: normal thought content Attention / Concentration: attention grossly intact Debridement Note Debridement Note Wound debrided: Traumatic avulsion injury of the left medial calf Laterality: Left Type of Debridement: Excisional debridement Anesthesia Used: 5% Lidocaine Gel and Cetacaine Depth: Down to and including healthy tissue and in the subcutaneous layer Percentage of wound debrided: 100 Instrument Used: 5mm curette Tissue Removed: Bioburden Severity: Fat Layer Exposed Amount of bleeding with debridement: Mild Bleeding Controlled with: Compression and gauze Patient tolerated procedure: Patient tolerated procedure well Post-Debridement Measurements and Additional Note: Post-Debridement Measurements/Treatment DANTE - Nurse 1 - General Ulcer Assessment Start: 03/09/25 12:54 Freq: Status: Active Protocol: NATHALIE Activity Type Activity Date Activity User E-sign Co-sign Detail Recorded Client Recorded Date Recorded By Document 03/09/25 12:55 RUSS [id number] 03/09/25 12:57 RUSS 03/09/25 12:55 - Today's Visit Information Type of service Follow-up Visit (Physician/DEALERSHIP MANAGER ) Arrival Mode Ambulatory,Cane Patient Identification Verified (Name & Yes ) Vital Signs Temperature (97.8 F-99.1 F) 98.3 F Temperature Source Temporal Pulse Rate (60-100) 78 Pulse Location Monitor Respiratory Rate (12-18) 18 Respiratory rate source Observation Oxygen Delivery Method Room Air Blood Pressure (90/60-120/80) 124/67 H Blood Pressure Mean 86 Source Monitor Position Semi-Fowlers Blood Pressure Location Right Arm History Since Last Visit- (Skip if this is Patient's initial visit) Have you changed medications since your No last visit? Any new allergies or adverse reactions No Had a fall/change in ADL's that may No increase risk of falls Signs or symptoms of abuse and/or No neglect since last visit Have you been in the hospital since your No last visit? Has dressing in place as prescribed Yes Has compression in place as prescribed Yes Has offloadiing in place as prescribed N/A Experienced any changes in pain level or No management Left Footwear Regular Shoe Right Footwear Regular Shoe Pain Scale: 0-10 Numeric Is Patient Pain Free? Yes - Nurse 1 - General Ulcer Measurement Start: 03/09/25 12:54 Freq: Status: Active Protocol: Activity Type Activity Date Activity User E-sign Co-sign Detail Recorded Client Recorded Date Recorded By Document 03/09/25 12:55 RUSS [id number] 03/09/25 12:57 RUSS 03/09/25 12:55 Wound Center Nurse 1 #1 LT MED LE -Current Size (cm) - Length 0.9 -Current Size (cm) - Width 1.2 -Current Size (cm) - Depth 0.1 -Total Square Cm 1.08 -Date of Last Picture (Recall this 03/09/25 field) -Exudate Amt Small -Exudate Type Serosanguineous -Wound Margin Distinct, Outline Attached -Texture (Maylin-wound Skin Appearance) Assessed -Moisture (Maylin-wound Skin Appearance) Assessed -Color (Maylin-wound Skin Appearance) Assessed -Temperature (Maylin-wound Skin No Abnormality Appearance) (Pt Warm) -Tenderness on Palpation (Maylin-wound No Skin Appearance) -Ulcer Cleansing Rinsed/ Irrigated with Saline -Foul Odor after Cleansing No -Anesthetic Used 5% Lidocaine Gel - Nurse 2 - General Ulcer CM Notes Start: 03/09/25 12:54 Freq: Status: Active Protocol: Activity Type Activity Date Activity User E-sign Co-sign Detail Recorded Client Recorded Date Recorded By Document 03/09/25 13:03 DS [id number] 03/09/25 13:07 DS 03/09/25 13:03 Wound Center Nurse 2 -Time 13:03 -Correct Patient Yes -Correct Side, Site, Position Yes -Correct Procedure Yes -Procedure Performed Yes -Type of Procedure Debridement -Clinical Debridement Subcutaneous -Tissue Removed Subcutaneous -Post Debridement (cm) - Length 1.2 -Post Debridement (cm) - Width 1.5 -Post Debridement (cm) - Depth 0.1 -Total Square (Post) (cm) 1.80 -Area of Debridement (cm) - Length 1.2 -Area of Debridement (cm) - Width 1.5 -Total Square (Area) (cm) 1.80 -Tunneling No -Undermining/Tunneling No -Circular Undermining No -Wound/Ulcer Outcome Not Healed -Ulcer Cleansing gauze -Foul Odor after Cleansing No -Bioengineered Tissue No -Bleeding Controlled with Pressure -Treatment Response Procedure Tolerated Well -Debridement - Subq, 1st 20sq cm Yes Pain Scale: 0-10 Numeric Is Patient Pain Free? Yes - Nurse 3 - General Ulcer D/C NN Start: 03/09/25 12:54 Freq: Status: Active Protocol: Activity Type Activity Date Activity User E-sign Co-sign Detail Recorded Client Recorded Date Recorded By Document 03/09/25 13:16 [facility] [id number] 03/09/25 13:17 [facility] 03/09/25 13:16 Wound Care Center Nurse 3 #1 LT MED LE -Ulcer Cleansing Rinsed/ Irrigated with Saline -Foul Odor after Cleansing No -Primary Dressing Applied Aquacel Extra -Primary Dressing Covered/Secured with Dry Gauze & Roll Gauze, Secured with Tape -Aquacel Extra 1 LLE -Compression Wrap John Wrap Treatment Response Procedure Tolerated Well Pain Scale: 0-10 Numeric Is Patient Pain Free? Yes - Visit Discharge Discharge Condition Stable Ambulatory Status Ambulatory,Cane Transportation Private Auto Charges/Coding Procedures Integumentary [id number]: [id number] Esha subq tissue 20 sq cm/< Assessment/Plan Assessment/Plan (1) Non-pressure chronic ulcer of left calf with fat layer exposed: CODE(S): L97.222 - Non-pressure chronic ulcer of left calf with fat layer exposed (2) Traumatic open wound of lower leg: CODE(S): S81.809A - Unspecified open wound, unspecified lower leg, initialencounter QUALIFIERS: Encounter type: subsequent encounter Laterality: left Qualified Code(s): S81.802D - Unspecified open wound, left lower leg, subsequent encounter (3) Avulsion injury: CODE(S): T14.8XXA - Other injury of unspecified body region, initial encounter (4) S/P ORIF (open reduction internal fixation) fracture: CODE(S): Z96.7 - Presence of other bone and tendon implants; Z87.81 - Personal history of (healed) traumatic fracture (5) S/P ORIF (open reduction internal fixation) fracture: CODE(S): Z98.890 - Other specified postprocedural states; Z87.81 - Personal history of (healed) traumatic fracture (6) History of surgery on wrist: CODE(S): Z98.890 - Other specified postprocedural states (7) History of cataract surgery: CODE(S): Z98.49 - Cataract extraction status, unspecified eye (8) History of ankle surgery: CODE(S): Z98.890 - Other specified postprocedural states (9) Hypothyroidism: CODE(S): E03.9 - Hypothyroidism, unspecified QUALIFIERS: Hypothyroidism type: acquired Qualified Code(s): E03.9 - Hypothyroidism, unspecified (10) Raynaud phenomenon: CODE(S): I73.00 - Raynaud's syndrome without gangrene QUALIFIERS: Raynaud?s-associated gangrene presence: without gangrene Qualified Code(s): I73.00 - Raynaud's syndrome without gangrene (11) Osteoporosis: CODE(S): M81.0 - Age-related osteoporosis without current pathological fracture (12) Ymnd-byhj-fqetyvvesoeecul: 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 The injury occurred when thepatient's dog traumatized her leg with its nails. Immediately following her injury, the patient presented to the [facility] Emergency Department, where the avulsion flap was repositioned and sutured in place. The central portion of the traumatic flap has necrosed, and is no longer viable. The remaining wound is full-thickness, extending down into the subcutaneous tissues. There has been recent improvement, with a decrease in the size of the patient's wound. We are to continue the use of Aquacel Extra topically, which will be moistened at the time of application. The patient has been instructed in the appropriate means of daily application. Mild compression is to be applied by means of an John wrap, which will also be applied on a daily basis. The patient has been counseled to elevate her lower extremities as much as possible, to remain active, and to avoid prolonged, idle sitting. She is to return in 1 week for reassessment. The patient has been advised to optimize hernutritional intake, and is using Huy as a supplement. Total time: 24 minutes 03/11/25 1323 <Electronically signed by Cedric Gibbons MD> Cosigner Signature (if applicable): CC: ~ Signed [facility] Work Phone: 1(141) 792-356207-03-2025 History and physical note [facility] [address] [place] [address] H&P Exam - Wound Care 03/11/25 1318 MR#: [id number] Acct: [id number] Name: GERALDINE HAIRSTON Rep #:[id number] 20 : 1950 74 From: Cedric Worthington PCP: Dr. Chance Kolb MD Status:RE G RCR Location: History of Present Illness Date of Service: 03/09/25 Chief Complaint: Traumatic avulsion injury of the left medial calf History of Wound: This is a 74-year-old female who sustained a traumatic injury to her left medial calf on January 01, 2025. At the time of her injury, she presented to the [facility] Emergency Department, where she was found to have an avulsion injury with a significant adherent cutaneous flap. The injury was caused by the nails of her dog, who had jumped off the couch. Inthe Emergency Department, the flap was sutured in place using seven 5-0 nylon sutures. The patient was placedon Keflex and Augmentin orally, and was discharged. The patient is generally healthy for her age, though has a history of ocia-obti-fktyrxrzjmukwmf, GERD, hypertension, hypothyroidism, and osteoporosis. She denies a history of diabetes mellitus, myocardial infarction,cerebrovascular accident, renaldisease, and pulmonary disease. Her BMI is 19.5. She is . [facility] Medical History Non-pressure chronic ulcer of left calf with fat layer exposed Traumatic open wound of lower leg Avulsion injury GERD (gastroesophageal reflux disease) HTN (hypertension) Hypothyroidism Depression Anxiety Home Medications ?Medication ?Instructions ?Recorded ?Last Taken ?Type levothyroxine 25 mcg tablet 25 mcg PO DAILY Check with primary 02/07/15 09/29/16 09:00 History doctor Bacillus coagulans-inulin 1 1 ea PO DAILY Check with p skye 12/07/15 09/29/16 09:00 History billion cell-250 mg capsule doctor (Probiotic Formula (inulin)) gabapentin 100 mg capsule 600 mg PO BID Check with [facility] 12/07/15 09/29/16 21:00 History doctor nifedipine 60 mg tablet,extended 180 mg PO DAILY Check with primary 12/07/15 0 09/29/16 09:00 History release 24 hr doctor pantoprazole 20 mg tablet,delayed 20 mg PO DAILY [facility] 12/07/15 09/29/16 09:00 History release paroxetine HCl 25 mg 75 mg PO DAILY depression 09/29/16 09:00 History tablet,extended release 24 hr (Paxil CR) aspirin 325 mg tablet,delayed 325 mg PO DAILY HEART 09/29/16 09:00 History release buspirone 5 mg tablet 30 mg PO BID Check with prim lesley 04/26/16 09/29/16 21:00 History doctor budesonide 3 mg 9 mg PO DAILY Check with [facility] 09/30/16 Unknown History capsule,delayed,extended release doctor (Sixto WHITLOCK) lorazepam 0.5 mg tablet 0.5 mg PO Q6H PRN PRN Anxiet y ##10 10/03/16 Unknown Rx dicyclomine 20 mg tablet 20 mg PO TID Check with prim lesley 09/02/22 Unknown History doctor Metamucil Check with primary doctor Unknown History food supplemt, lactose-reduced 120 ml PO 4X/DAY Check with 09/07/22 Unknown History 0.08 gram-1.5 kcal/mL oral liquid primary doctor (Ensure Enlive) loperamide 2 mg tablet 2 mg PO Q6H PRN Constipation 09/07/22 Unknown History omeprazole 40 mg PO/SL DAILY Check with 09/07/22 Unknown History primary doctor atorvastatin 80 mg tablet 20 mg (1/4 x 80 mg) PO QHS # 30 tabs 09/08/22 Unknown Rx cephalexin 500 mg capsule 500 mg PO BID #12 caps 09/08 Unknown Rx amoxicillin 875 mg-potassium 875 mg (0.875 x 875-125 m g) PO 04/29/23 Unknown Rx clavulanate 125 mg tablet Q12H #10 TABLETS Allergy/AdvReac Type Severity Reaction Status Date / Time acetaminophen (From Percocet) Allergy Other Verified 01/06/25 14:05 oxycodone (From Percocet) Allergy Other Verified 01/06/25 14:05 codeine AdvReac Nausea & Verified 01/06/25 14:05 dizziness oxycodone HCl (From Percocet) AdvReac Nausea & Verified 01/06/25 14:05 dizziness Family History Father Diabetes Dementia Surgical History S/P ORIF (open reduction internal fixation) fracture History of surgery on wrist History of cataract surgery History of ankle surgery Social History household members: none Smoking Status: Never smoker substance use type: does not use Physical Exam Const alert, oriented x3, no apparent distress and average body habitus Constitutional Narrative: The patient's BMI is 19.5. General Appearance: cooperative, comfortable, well kempt and well developed Orientation / Consciousness: awake, oriented to person, oriented to place and oriented to time Exam Limitations: no limitations HEENT normocephalic and head/scalp atraumatic Head and Scalp: normal to inspection, normocephalic and atraumatic Face and Sinus: normal facial exam Nose: external nose normal External Ear: external ears normal Eyes EOMs intact bilaterally General Eye: normal appearance of both eyes Neck full ROM Resp normal respiratory effort, normal air movement, no retractions and no use of accessory muscles Effort and Inspection: able to speak in complete sentences Extremity General Extremity: Negative for clubbing or cyanosis Skin Wound Narrative: A traumatic wound is noted on the patient's left medial calf. It is an avulsioninjury, with a resultant flap of skin. At the time of the patient's original Emergency Department visit, the flap was repositioned, and sutured in place using 5-0 nylon sutures. The sutures have been removed during previous visits. A large portion of the avulsion flap, which had been repositioned and sutured inplace, subsequently necrosed and was no longer viable. The current wound demonstrates a bed of generally pink, healthy granulation tissue with a small amount of bioburden. It is full-thickness in nature, extending through all layers of the dermis and into the subcutaneous tissues. Wound margins are well beveled. There is no sign of infection or cellulitis. No significant swelling or edema are noted in theleft lower extremity. The wound continues to diminishin size, and dimensions are documented elsewhere. Neuro oriented x3, CN's II-XII intact bilaterally, moves all extremities, no focal motor deficits and no sensory deficits noted Sensorium / Orientation: awake, alert, oriented to person, oriented to place andoriented to time Speech: speech normal Psych Appearance: grossly normal and appropriate Attitude: calm Activity / Motor Behavior: appropriate eye contact Speech: normal speech Mood & Affect: euthymic mood Thought Process: normal thought process Thought Content: normal thought content Attention / Concentration: attention grossly intact Debridement Note Debridement Note Wound debrided: Traumatic avulsion injury of the left medial calf Laterality: Left Type of Debridement: Excisional debridement Anesthesia Used: 5% Lidocaine Gel and Cetacaine Depth: Down to and including healthy tissue and in the subcutaneous layer Percentage of wound debrided: 100 Instrument Used: 5mm curette Tissue Removed: Bioburden Severity: Fat Layer Exposed Amount of bleeding with debridement: Mild Bleeding Controlled with: Compression and gauze Patient tolerated procedure: Patient tolerated procedure well Post-Debridement Measurements and Additional Note: Post-Debridement Measurements/Treatment - Nurse 1 - General Ulcer Assessment Start: 03/09/25 12:54 Freq: Status: Active Protocol: NATHALIE Activity Type Activity Date Activity User E-sign Co-sign Detail Recorded Client Recorded Date Recorded By Document 03/09/25 12:55 RUSS [id number] 03/09/25 12:57 KW 03/09/25 12:55 - Today's Visit Information Type of service Follow-up Visit (Physician/DEALERSHIP MANAGER ) Arrival Mode Ambulatory,Cane Patient Identification Verified (Name & Yes ) Vital Signs Temperature (97.8 F-99.1 F) 98.3 F Temperature Source Temporal Pulse Rate (60-100) 78 Pulse Location Monitor Respiratory Rate (12-18) 18 Respiratory rate source Observation Oxygen Delivery Method Room Air Blood Pressure (90/60-120/80) 124/67 H Blood Pressure Mean 86 Source Monitor Position Semi-Fowlers Blood Pressure Location Right Arm History Since Last Visit- (Skip if this is Patient's initial visit) Have you changed medications since your No last visit? Any new allergies or adverse reactions No Had a fall/change in ADL's that may No increase risk of falls Signs or symptoms of abuse and/or No neglect since last visit Have you been in the hospital since your No last visit? Has dressing in place as prescribed Yes Has compression in place as prescribed Yes Has offloadiing in place as prescribed N/A Experienced any changes in pain level or No management Left Footwear Regular Shoe Right Footwear Regular Shoe Pain Scale: 0-10 Numeric Is Patient Pain Free? Yes DANTE - Nurse 1 - General Ulcer Measurement Start: 03/09/25 12:54 Freq: Status: Active Protocol: Activity Type Activity Date Activity User E-sign Co-sign Detail Recorded Client Recorded Date Recorded By Document 03/09/25 12:55 RUSS [id number] 03/09/25 12:57 RUSS 03/09/25 12:55 Wound Center Nurse 1 #1 LT MED LE -Current Size (cm) - Length 0.9 -Current Size (cm) - Width 1.2 -Current Size (cm) - Depth 0.1 -Total Square Cm 1.08 -Date of Last Picture (Recall this 03/09/25 field) -Exudate Amt Small -Exudate Type Serosanguineous -Wound Margin Distinct, Outline Attached -Texture (Maylin-wound Skin Appearance) Assessed -Moisture (Maylin-wound Skin Appearance) Assessed -Color (Maylin-wound Skin Appearance) Assessed -Temperature (Maylin-wound Skin No Abnormality Appearance) (Pt Warm) -Tenderness on Palpation (Maylin-wound No Skin Appearance) -Ulcer Cleansing Rinsed/ Irrigated with Saline -Foul Odor after Cleansing No -Anesthetic Used 5% Lidocaine Gel DANTE - Nurse 2 - General Ulcer CM Notes Start: 03/09/25 12:54 Freq: Status: Active Protocol: Activity Type Activity Date Activity User E-sign Co-sign Detail Recorded Client Recorded Date Recorded By Document 03/09/25 13:03 PHILIPPE [id number] 03/09/25 13:07 DS 03/09/25 13:03 Wound Center Nurse 2 -Time 13:03 -Correct Patient Yes -Correct Side, Site, Position Yes -Correct Procedure Yes -Procedure Performed Yes -Type of Procedure Debridement -Clinical Debridement Subcutaneous -Tissue Removed Subcutaneous -Post Debridement (cm) - Length 1.2 -Post Debridement (cm) - Width 1.5 -Post Debridement (cm) - Depth 0.1 -Total Square (Post) (cm) 1.80 -Area of Debridement (cm) - Length 1.2 -Area of Debridement (cm) - Width 1.5 -Total Square (Area) (cm) 1.80 -Tunneling No -Undermining/Tunneling No -Circular Undermining No -Wound/Ulcer Outcome Not Healed -Ulcer Cleansing gauze -Foul Odor after Cleansing No -Bioengineered Tissue No -Bleeding Controlled with Pressure -Treatment Response Procedure Tolerated Well -Debridement - Subq, 1st 20sq cm Yes Pain Scale: 0-10 Numeric Is Patient Pain Free? Yes - Nurse 3 - General Ulcer D/C NN Start: 03/09/25 12:54 Freq: Status: Active Protocol: Activity Type Activity Date Activity User E-sign Co-sign Detail Recorded Client Recorded Date Recorded By Document 03/09/25 13:16 [facility] [id number] 03/09/25 13:17 [facility] 03/09/25 13:16 Wound Care Center Nurse 3 #1 LT MED LE -Ulcer Cleansing Rinsed/ Irrigated with Saline -Foul Odor after Cleansing No -Primary Dressing Applied Aquacel Extra -Primary Dressing Covered/Secured with Dry Gauze & Roll Gauze, Secured with Tape -Aquacel Extra 1 LLE -Compression Wrap John Wrap Treatment Response Procedure Tolerated Well Pain Scale: 0-10 Numeric Is Patient Pain Free? Yes - Visit Discharge Discharge Condition Stable Ambulatory Status Ambulatory,Cane Transportation Private Auto Charges/Coding Procedures Integumentary [id number]: [id number] Esha subq tissue 20 sq cm/< Assessment/Plan Assessment/Plan (1) Non-pressure chronic ulcer of left calf with fat layer exposed: CODE(S): L97.222 - Non-pressure chronic ulcer of left calf with fat layer exposed (2) Traumatic open wound of lower leg: CODE(S): S81.809A - Unspecified open wound, unspecified lower leg, initialencounter QUALIFIERS: Encounter type: subsequent encounter Laterality: left Qualified Code(s): S81.802D - Unspecified open wound, left lower leg, subsequent encounter (3) Avulsion injury: CODE(S): T14.8XXA - Other injury of unspecified body region, initial encounter (4) S/P ORIF (open reduction internal fixation) fracture: CODE(S): Z96.7 - Presence of other bone and tendon implants; Z87.81 - Personal history of (healed) traumatic fracture (5) S/P ORIF (open reduction internal fixation) fracture: CODE(S): Z98.890 - Other specified postprocedural states; Z87.81 - Personal history of (healed) traumatic fracture (6) History of surgery on wrist: CODE(S): Z98.890 - Other specified postprocedural states (7) History of cataract surgery: CODE(S): Z98.49 - Cataract extraction status, unspecified eye (8) History of ankle surgery: CODE(S): Z98.890 - Other specified postprocedural states (9) Hypothyroidism: CODE(S): E03.9 - Hypothyroidism, unspecified QUALIFIERS: Hypothyroidism type: acquired Qualified Code(s): E03.9 - Hypothyroidism, unspecified (10) Raynaud phenomenon: CODE(S): I73.00 - Raynaud's syndrome without gangrene QUALIFIERS: Raynaud?s-associated gangrene presence: without gangrene Qualified Code(s): I73.00 - Raynaud's syndrome without gangrene (11) Osteoporosis: CODE(S): M81.0 - Age-related osteoporosis without current pathological fracture (12) Bgsq-zkfl-vmsuzbwbqcbvnxj: 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 The injury occurred when thepatient's dog traumatized her leg with its nails. Immediately following her injury, the patient presented to the [facility] Emergency Department, where the avulsion flap was repositioned and sutured in place. The central portion of the traumatic flap has necrosed, and is no longer viable. The remaining wound is full-thickness, extending down into the subcutaneous tissues. There has been recent improvement, with a decreasein the size of the patient's wound. We are to continue the use of Aquacel Extra topically, which will be moistened at the time of application. The patient has been instructed in the appropriate meansof daily application. Mild compression is to be applied by means of an John wrap, which will also beapplied on a daily basis. The patient has been counseled to elevate her lower extremities as much as possible, to remain active, and to avoid prolonged, idle sitting. She is to return in 1 week for reassessment. The patient has been advised to optimize hernutritional intake, and is using Huy as asupplement. Total time: 24 minutes 03/11/25 1323 Cosigner Signature (if applicable): CC: ~ Signed [facility]06-25-2025 History and physical note Author Cedric Gibbons [facility] Note Date/Time March 03, 2025 11:0 6am [facility] [address] [place] [address] H&P Exam - Wound Care 03/03/25 1057 MR#: [id number] Acct: [id number] Name: VARUNKIMBERLY IRELANDMAMI Worthington Rep #:[id number] 13 : 1950 74 From: Cedric Worthington PCP: Dr. Chance Kolb MD Status:RE G RCR Location: History of Present Illness Date of Service: 03/02/25 Chief Complaint: Traumatic avulsion injury of the left medial calf History of Wound: This is a 74-year-old female who sustained a traumatic injury to her left medial calf on January 01, 2025. At the time of her injury, she presented to the [facility] Emergency Department, where she was found to have an avulsion injury with a significant adherent cutaneous flap. The injury was caused by the nails of her dog, who had jumped off the couch. Inthe Emergency Department, the flap was sutured in place using seven 5-0 nylon sutures. The patient was placed on Keflex and Augmentin orally, and was discharged. The patient is generally healthy for her age, though has a history of kmmg-bxkx-jlnealgrfwmnioy, GERD, hypertension, hypothyroidism, and osteoporosis. She denies a history of diabetes mellitus, myocardial infarction,cerebrovascular accident, renal disease, and pulmonary disease. Her BMI is 19.5. She is . [facility] Medical History Non-pressure chronic ulcer of left calf with fat layer exposed Traumatic open wound of lower leg Avulsion injury GERD (gastroesophageal reflux disease) HTN (hypertension) Hypothyroidism Depression Anxiety Home Medications ?Medication ?Instructions ?Recorded ?Last Taken ?Type levothyroxine 25 mcg tablet 25 mcg PO DAILY Check with primary 02/07/15 09/29/16 09:00 History doctor Bacillus coagulans-inulin 1 1 ea PO DAILY Check with p skye 12/07/15 09/29/16 09:00 History billion cell-250 mg capsule doctor (Probiotic Formula (inulin)) gabapentin 100 mg capsule 600 mg PO BID [facility] 12/07/15 09/29/16 21:00 History doctor nifedipine 60 mg tablet,extended 180 mg PO DAILY Check with primary 12/07/15 0 09/29/16 09:00 History release 24 hr doctor pantoprazole 20 mg tablet,delayed 20 mg PO DAILY [facility] 12/07/15 09/29/16 09:00 History release paroxetine HCl 25 mg 75 mg PO DAILY depression 09/29/16 09:00 History tablet,extended release 24 hr (Paxil CR) aspirin 325 mg tablet,delayed 325 mg PO DAILY HEART 09/29/16 09:00 History release buspirone 5 mg tablet 30 mg PO BID Check with [facility] 04/26/16 09/29/16 21:00 History doctor budesonide 3 mg 9 mg PO DAILY Check with [facility] 09/30/16 Unknown History capsule,delayed,extended release doctor (Entocort EC) lorazepam 0.5 mg tablet 0.5 mg PO Q6H PRN PRN Anxiet y ##10 10/03/16 Unknown Rx dicyclomine 20 mg tablet 20 mg PO TID Check with [facility] 09/02/22 Unknown History doctor Metamucil Check with primary doctor Unknown History food supplemt, lactose-reduced 120 ml PO 4X/DAY Check with 09/07/22 Unknown History 0.08 gram-1.5 kcal/mL oral liquid primary doctor (Ensure Enlive) loperamide 2 mg tablet 2 mg PO Q6H PRN Constipation 09/07/22 Unknown History omeprazole 40 mg PO/SL DAILY Check with 09/07/22 Unknown History primary doctor atorvastatin 80 mg tablet 20 mg (1/4 x 80 mg) PO QHS # 30 tabs 09/08/22 Unknown Rx cephalexin 500 mg capsule 500 mg PO BID #12 caps 09/08 Unknown Rx amoxicillin 875 mg-potassium 875 mg (0.875 x 875-125 m g) PO 04/29/23 Unknown Rx clavulanate 125 mg tablet Q12H #10 TABLETS Allergy/AdvReac Type Severity Reaction Status Date / Time acetaminophen (From Percocet) Allergy Other Verified 01/06/25 14:05 oxycodone (From Percocet) Allergy Other Verified 01/06/25 14:05 codeine AdvReac Nausea & Verified 01/06/25 14:05 dizziness oxycodone HCl (From Percocet) AdvReac Nausea & Verified 01/06/25 14:05 dizziness Family History Father Diabetes Dementia Surgical History S/P ORIF (open reduction internal fixation) fracture History of surgery on wrist History of cataract surgery History of ankle surgery Social History household members: none Smoking Status: Never smoker substance use type: does not use Vital Signs Vital Signs Vital Signs: 03/02/25 13:34 Temperature 98.7 F Temperature Source Temporal Pulse Rate 91 Respiratory Rate 16 Blood Pressure 99/56 L Blood Pressure Mean 70 Blood Pressure Source Monitor Blood Pressure Position Sitting Blood Pressure Location Right Arm Oxygen Delivery Method Room Air Weight Weight: 95 lb Body Mass Index (BMI) 19.5 Physical Exam Const alert, oriented x3, no apparent distress and average body habitus Constitutional Narrative: The patient's BMI is 19.5. General Appearance: cooperative, comfortable, well kempt and well developed Orientation / Consciousness: awake, oriented to person, oriented to place and oriented to time Exam Limitations: no limitations HEENT normocephalic and head/scalp atraumatic Head and Scalp: normal to inspection, normocephalic and atraumatic Face and Sinus: normal facial exam Nose: external nose normal External Ear: external ears normal Eyes EOMs intact bilaterally General Eye: normal appearance of both eyes Neck full ROM Resp normal respiratory effort, normal air movement, no retractions and no use of accessory muscles Effort and Inspection: able to speak in complete sentences Extremity General Extremity: Negative for clubbing or cyanosis Skin Wound Narrative: A traumatic wound is noted on the patient's left medial calf. It is an avulsioninjury, with a resultant flap of skin. At the time of the patient's original Emergency Department visit, the flap was repositioned, and sutured in place using seven 5-0 nylon sutures. The sutures have been removed during previous visits. A large portion of the avulsion flap, which had been repositioned and sutured in place, subsequently necrosed and was no longer viable. The currentwound demonstrates a bed of generally pink, healthy granulation tissue with a small amount of bioburden. It is full-thickness in nature, extending through all layers of the dermis and into the subcutaneous tissues. Wound margins are well beveled. There is no sign of infection or cellulitis. No significant swelling or edema are noted in the left lower extremity. The wound continues todiminish in size, and dimensions are documented elsewhere. Neuro oriented x3, CN's II-XII intact bilaterally, moves all extremities, no focal motor deficits and no sensory deficits noted Sensorium / Orientation: awake, alert, oriented to person, oriented to place andoriented to time Speech: speech normal Psych Appearance: grossly normal and appropriate Attitude: calm Activity / Motor Behavior: appropriate eye contact Speech: normal speech Mood & Affect: euthymic mood Thought Process: normal thought process Thought Content: normal thought content Attention / Concentration: attention grossly intact Debridement Note Debridement Note Wound debrided: Traumatic avulsion injury of the left medial calf Laterality: Left Type of Debridement: Excisional debridement Anesthesia Used: 5% Lidocaine Gel and Cetacaine Depth: Down to and including healthy tissue and in the subcutaneous layer Percentage of wound debrided: 100 Instrument Used: 5mm curette Tissue Removed: Bioburden Severity: Fat Layer Exposed Amount of bleeding with debridement: Mild Bleeding Controlled with: Compression and gauze Patient tolerated procedure: Patient tolerated procedure well Post-Debridement Measurements and Additional Note: Post-Debridement Measurements/Treatment DANTE - Nurse 1 - General Ulcer Assessment Start: 02/09/25 13:13 Freq: Status: Active Protocol: NATHALIE Activity Type Activity Date Activity User E-sign Co-sign Detail Recorded Client Recorded Date Recorded By Document 02/09/25 13:13 KW [id number] 02/09/25 13:18 KW Document 02/16/25 13:06 KW [id number] 02/16/25 13:16 KW Document 02/23/25 13:26 ML [id number] 02/23/25 13:36 ML Document 03/02/25 13:34 KW [id number] 03/02/25 13:40 KW 02/09/25 02/16/25 02/23/25 13:13 13:06 13:26 WC - Today's Visit Information Type of service Follow-up Visit Follow-up Visit Follow-up Visit (Physician/DEALERSHIP MANAGER (Physician/DEALERSHIP MANAGER (Physician/DEALERSHIP MANAGER ) ) ) Arrival Mode Ambulatory,Cane Ambulatory,Cane Ambulatory Patient Identification Verified (Name & Yes Yes Yes ) Patient Requires Transmission-Based No Precautions Height and Weight Body Mass Index (BMI) 19.5 19.5 19.5 BMI Classification Normal Normal Normal Vital Signs Temperature (97.8 F-99.1 F) 97.4 F L 97.2 F L 97.2 F L Temperature Source Temporal Temporal Temporal Pulse Rate (60-100) 96 85 84 Pulse Location Monitor Monitor Monitor Respiratory Rate (12-18) 18 16 14 Respiratory rate source Observation Observation Observation Oxygen Delivery Method Room Air Room Air Blood Pressure (90/60-120/80) 106/53 L 115/64 96/76 Blood Pressure Mean 70 81 82 Source Monitor Monitor Monitor Position Semi-Fowlers Semi-Fowlers Supine Blood Pressure Location Left Arm Right Arm Left Arm History Since Last Visit- (Skip if this is Patient's initial visit) Have you changed medications since your No No No last visit? Any new allergies or adverse reactions No No No Had a fall/change in ADL's that may No No No increase risk of falls Signs or symptoms of abuse and/or No No No neglect since last visit Have you been in the hospital since your No No No last visit? Has dressing in place as prescribed Yes Yes Yes Has compression in place as prescribed Yes Yes N/A Has offloadiing in place as prescribed N/A N/A N/A Experienced any changes in pain level or No No No management Left Footwear Regular Shoe Regular Shoe Right Footwear Regular Shoe Regular Shoe Pain Scale: 0-10 Numeric Is Patient Pain Free? Yes Yes Yes 03/02/25 13:34 WC - Today's Visit Information Type of service Follow-up Visit (Physician/DEALERSHIP MANAGER ) Arrival Mode Ambulatory,Cane Patient Identification Verified (Name & Yes ) Patient Requires Transmission-Based Precautions Height and Weight Body Mass Index (BMI) 19.5 BMI Classification Normal Vital Signs Temperature (97.8 F-99.1 F) 98.7 F Temperature Source Temporal Pulse Rate (60-100) 91 Pulse Location Monitor Respiratory Rate (12-18) 16 Respiratory rate source Observation Oxygen Delivery Method Room Air Blood Pressure (90/60-120/80) 99/56 L Blood Pressure Mean 70 Source Monitor Position Sitting Blood Pressure Location Right Arm History Since Last Visit- (Skip if this is Patient's initial visit) Have you changed medications since your No last visit? Any new allergies or adverse reactions No Had a fall/change in ADL's that may No increase risk of falls Signs or symptoms of abuse and/or No neglect since last visit Have you been in the hospital since your No last visit? Has dressing in place as prescribed Yes Has compression in place as prescribed Yes Has offloadiing in place as prescribed N/A Experienced any changes in pain level or No management Left Footwear Regular Shoe Right Footwear Regular Shoe Pain Scale: 0-10 Numeric Is Patient Pain Free? Yes - Nurse 1 - General Ulcer Measurement Start: 02/09/25 13:13 Freq: Status: Active Protocol: Activity Type Activity Date Activity User E-sign Co-sign Detail Recorded Client Recorded Date Recorded By Document 02/09/25 13:13 KW [id number] 02/09/25 13:18 KW Document 02/16/25 13:06 KW [id number] 02/16/25 13:16 KW Document 02/23/25 13:26 ML [id number] 02/23/25 13:36 ML Document 03/02/25 13:34 KW [id number] 03/02/25 13:40 KW 02/09/25 02/16/25 02/23/25 13:13 13:06 13:26 Wound Center Nurse 1 #1 LT MED LE -Current Size (cm) - Length 2.2 1.5 1 -Current Size (cm) - Width 2.5 2 1 -Current Size (cm) - Depth 0.1 0.1 0.1 -Total Square Cm 5.50 3.0 1 -Date of Last Picture (Recall this 02/09/25 02/16/25 field) -Exudate Amt Medium Medium Small -Exudate Type Serosanguineous Serosanguineous Serosanguineous -Wound Margin Distinct, Distinct, Outline Outline Attached Attached -Granulation Amt Medium (34-66%) Large (67-100%) -Granulation Quality [place] -Slough/Fibrin Yes -Necrosis Amt Medium (34-66%) Medium (34-66%) None Present (0 %) -Necrotic Tissue Type Adherent Slough Adherent Slough Adherent Slough -Texture (Maylin-wound Skin Appearance) Assessed Assessed Assessed -Moisture (Maylin-wound Skin Appearance) Assessed Assessed Assessed -Color (Maylin-wound Skin Appearance) Assessed, Assessed, Assessed Erythema Erythema -Temperature (Maylin-wound Skin No Abnormality No Abnormality No Abnormality Appearance) (Pt Warm) (Pt Warm) (Pt Warm) -Tenderness on Palpation (Maylin-wound No No No Skin Appearance) -Ulcer Cleansing Rinsed/ Rinsed/ Rinsed/ Irrigated with Irrigated with Irrigated with Saline Saline Saline -Foul Odor after Cleansing No No No -Anesthetic Used 5% Lidocaine 5% Lidocaine 5% Lidocaine Gel Gel Gel Left Calf (cm) Left Ankle (cm) 03/02/25 13:34 Wound Center Nurse 1 #1 LT MED LE -Current Size (cm) - Length 1 -Current Size (cm) - Width 1 -Current Size (cm) - Depth 0.1 -Total Square Cm 1 -Date of Last Picture (Recall this 03/02/25 field) -Exudate Amt -Exudate Type -Wound Margin -Granulation Amt Large (67-100%) -Granulation Quality [place] -Slough/Fibrin -Necrosis Amt Small (1-33%) -Necrotic Tissue Type Adherent Slough -Texture (Maylin-wound Skin Appearance) Assessed -Moisture (Maylin-wound Skin Appearance) Assessed -Color (Maylin-wound Skin Appearance) Assessed -Temperature (Maylin-wound Skin No Abnormality Appearance) (Pt Warm) -Tenderness on Palpation (Maylin-wound No Skin Appearance) -Ulcer Cleansing Soap and Water -Foul Odor after Cleansing No -Anesthetic Used 5% Lidocaine Gel Left Calf (cm) 32.5 Left Ankle (cm) 17 WC - Nurse 2 - General Ulcer CM Notes Start: 02/09/25 13:13 Freq: Status: Active Protocol: Activity Type Activity Date Activity User E-sign Co-sign Detail Recorded Client Recorded Date Recorded By Document 02/09/25 13:24 DS [id number] 02/09/25 13:28 DS Document 02/16/25 13:33 DS [id number] 02/16/25 13:36 DS Document 02/23/25 13:47 DS [id number] 02/23/25 13:50 DS Document 03/02/25 14:09 DS [id number] 03/02/25 14:11 DS 02/09/25 02/16/25 02/23/25 13:24 13:33 13:47 Wound Center Nurse 2 #1 LT MED LE -Time 13:24 13:33 13:47 -Correct Patient Yes Yes Yes -Correct Side, Site, Position Yes Yes Yes -Correct Procedure Yes Yes Yes -Procedure Performed Yes Yes Yes -Type of Procedure Debridement Debridement Debridement -Clinical Debridement Subcutaneous Subcutaneous Subcutaneous -Tissue Removed Subcutaneous Subcutaneous Subcutaneous -Post Debridement (cm) - Length 1.5 1.5 1.5 -Post Debridement (cm) - Width 1.5 1.8 1.5 -Post Debridement (cm) - Depth 0.1 0.1 0.1 -Total Square (Post) (cm) 2.25 2.70 2.25 -Area of Debridement (cm) - Length 1.5 1.5 1.5 -Area of Debridement (cm) - Width 1.5 1.8 1.5 -Total Square (Area) (cm) 2.25 2.70 2.25 -Tunneling No No No -Undermining/Tunneling No No No -Circular Undermining No No No -Wound/Ulcer Outcome Not Healed Not Healed Not Healed -Ulcer Cleansing Rinsed/ Rinsed/ Rinsed/ Irrigated with Irrigated with Irrigated with Saline Saline Saline -Foul Odor after Cleansing No No No -Bioengineered Tissue No No No -Bleeding Controlled with Pressure Pressure Pressure -Treatment Response Procedure Procedure Procedure Tolerated Well Tolerated Well Tolerated Well -Debridement - Subq, 1st 20sq cm Yes Yes Yes Pain Scale: 0-10 Numeric Is Patient Pain Free? Yes Yes Yes 03/02/25 14:09 Wound Center Nurse 2 #1 LT MED LE -Time 14:09 -Correct Patient Yes -Correct Side, Site, Position Yes -Correct Procedure Yes -Procedure Performed Yes -Type of Procedure Debridement -Clinical Debridement Subcutaneous -Tissue Removed Subcutaneous -Post Debridement (cm) - Length 1.2 -Post Debridement (cm) - Width 1.3 -Post Debridement (cm) - Depth 0.1 -Total Square (Post) (cm) 1.56 -Area of Debridement (cm) - Length 1.2 -Area of Debridement (cm) - Width 1.3 -Total Square (Area) (cm) 1.56 -Tunneling No -Undermining/Tunneling No -Circular Undermining No -Wound/Ulcer Outcome Not Healed -Ulcer Cleansing Rinsed/ Irrigated with Saline -Foul Odor after Cleansing No -Bioengineered Tissue No -Bleeding Controlled with Pressure -Treatment Response Procedure Tolerated Well -Debridement - Subq, 1st 20sq cm Yes Pain Scale: 0-10 Numeric Is Patient Pain Free? Yes - Nurse 3 - General Ulcer D/C NN Start: 02/09/25 13:13 Freq: Status: Active Protocol: Activity Type Activity Date Activity User E-sign Co-sign Detail Recorded Client Recorded Date Recorded By Document 02/09/25 13:32 KW [id number] 02/09/25 13:33 KW Document 02/16/25 13:46 KW [id number] 02/16/25 13:46 KW Document 02/23/25 13:57 ML [id number] 02/23/25 13:58 ML Document 03/02/25 14:25 BMF [id number] 03/02/25 14:26 BMF 02/09/25 02/16/25 02/23/25 13:32 13:46 13:57 Wound Care Center Nurse 3 #1 LT MED LE -Ulcer Cleansing Rinsed/ Irrigated with Saline -Foul Odor after Cleansing -Primary Dressing Applied Aquacel Extra Aquacel Extra Aquacel Extra -Other Dressing JOHN -Primary Dressing Covered/Secured with Dry Gauze & Dry Gauze & Dry Gauze & Roll Gauze, Roll Gauze, Roll Gauze, Secured with Secured with Secured with Tape Tape Tape -Aquacel Extra 1 1 1 LLE -Compression Wrap John Wrap John Wrap -Other 4in Treatment Response Pain Scale: 0-10 Numeric Is Patient Pain Free? Yes Yes Yes - Visit Discharge Discharge Condition Stable Stable Ambulatory Status Ambulatory,Cane Ambulatory,Cane Transportation Private Auto Private Auto Medication Reconcilliation completed & No No provided to patient/care provider Clinical Summary of Care Provided Yes Yes 03/02/25 14:25 Wound Care Center Nurse 3 #1 LT MED LE -Ulcer Cleansing Rinsed/ Irrigated with Saline -Foul Odor after Cleansing No -Primary Dressing Applied Aquacel Extra -Other Dressing -Primary Dressing Covered/Secured with Dry Gauze & Roll Gauze, Secured with Tape -Aquacel Extra 1 LLE -Compression Wrap John Wrap -Other Treatment Response Procedure Tolerated Well Pain Scale: 0-10 Numeric Is Patient Pain Free? Yes WC - Visit Discharge Discharge Condition Stable Ambulatory Status Ambulatory,Cane Transportation Private Auto Medication Reconcilliation completed & provided to patient/care provider Clinical Summary of Care Provided Charges/Coding Procedures Integumentary 111xxx-113xx: [id number] Esha subq tissue 20 sq cm/< Assessment/Plan Assessment/Plan (1) Non-pressure chronic ulcer of left calf with fat layer exposed: CODE(S): L97.222 - Non-pressure chronic ulcer of left calf with fat layer exposed (2) Traumatic open wound of lower leg: CODE(S): S81.809A - Unspecified open wound, unspecified lower leg, initialencounter QUALIFIERS: Encounter type: subsequent encounter Laterality: left Qualified Code(s): S81.802D - Unspecified open wound, left lower leg, subsequent encounter (3) Avulsion injury: CODE(S): T14.8XXA - Other injury of unspecified body region, initial encounter (4) S/P ORIF (open reduction internal fixation) fracture: CODE(S): Z96.7 - Presence of other bone and tendon implants; Z87.81 - Personal history of (healed) traumatic fracture (5) S/P ORIF (open reduction internal fixation) fracture: CODE(S): Z98.890 - Other specified postprocedural states; Z87.81 - Personal history of (healed) traumatic fracture (6) History of surgery on wrist: CODE(S): Z98.890 - Other specified postprocedural states (7) History of cataract surgery: CODE(S): Z98.49 - Cataract extraction status, unspecified eye (8) History of ankle surgery: CODE(S): Z98.890 - Other specified postprocedural states (9) Hypothyroidism: CODE(S): E03.9 - Hypothyroidism, unspecified QUALIFIERS: Hypothyroidism type: acquired Qualified Code(s): E03.9 - Hypothyroidism, unspecified (10) Raynaud phenomenon: CODE(S): I73.00 - Raynaud's syndrome without gangrene QUALIFIERS: Raynaud?s-associated gangrene presence: without gangrene Qualified Code(s): I73.00 - Raynaud's syndrome without gangrene (11) Osteoporosis: CODE(S): M81.0 - Age-related osteoporosis without current pathological fracture (12) Lxie-jinr-mloxpvsvunmzymz: 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 The injury occurred when thepatient's dog traumatized her leg with its nails. Immediately following her injury, the patient presented to the [facility] Emergency Department, where the avulsion flap was repositioned and sutured in place. The central portion of the traumatic flap has necrosed, and is no longer viable. The remaining wound is full-thickness, extending down into the subcutaneous tissues. There has been recent improvement, with a decrease in the size of the patient's wound. We are to continue the use of Aquacel Extra topically, which will be moistened at the time of application. The patient has been instructed in the appropriate means of daily application. Mild compression is to be applied by means of an John wrap, which will also be applied on a daily basis. The patient has been counseled to elevate her lower extremities as much as possible, to remain active, and to avoid prolonged, idle sitting. She is to return in 1 week for reassessment. The patient has been advised to optimize hernutritional intake, and is using Huy as a supplement. Total time: 22 minutes 03/03/25 1106 <Electronically signed by Cedric Gibbons MD> Cosigner Signature (if applicable): CC: ~ Signed [facility] Work Phone: [phone] History and physical note [facility] [address] [place] [id number] H&P Exam - Wound Care 03/03/25 1057 MR#: [id number] Acct: [id number] Name: GERALDINE HAIRSTON Rep #:[id number] 13 : 1950 74 From: Cedric Worthington PCP: Dr. Chance Kolb MD Status:RE G RCR Location: History of Present Illness Date of Service: 03/02/25 Chief Complaint: Traumatic avulsion injury of the left medial calf History of Wound: This is a 74-year-old female who sustained a traumatic injury to her left medial calf on January 01, 2025. At the time of her injury, she presented to the [facility] Emergency Department, where she was found to have an avulsion injury with a significant adherent cutaneous flap. The injury was caused by the nails of her dog, who had jumped off the couch. Inthe Emergency Department, the flap was sutured in place using seven 5-0 nylon sutures. The patient was placedon Keflex and Augmentin orally, and was discharged. The patient is generally healthy for her age, though has a history of oivs-feky-ncpnttptzkyyqfe, GERD, hypertension, hypothyroidism, and osteoporosis. She denies a history of diabetes mellitus, myocardial infarction,cerebrovascular accident, renaldisease, and pulmonary disease. Her BMI is 19.5. She is . [facility] Medical History Non-pressure chronic ulcer of left calf with fat layer exposed Traumatic open wound of lower leg Avulsion injury GERD (gastroesophageal reflux disease) HTN (hypertension) Hypothyroidism Depression Anxiety Home Medications ?Medication ?Instructions ?Recorded ?Last Taken ?Type levothyroxine 25 mcg tablet 25 mcg PO DAILY Check with primary 02/07/15 09/29/16 09:00 History doctor Bacillus coagulans-inulin 1 1 ea PO DAILY Check with jesus cheung 12/07/15 09/29/16 09:00 History billion cell-250 mg capsule doctor (Probiotic Formula (inulin)) gabapentin 100 mg capsule 600 mg PO BID Check with loretta mcmillan 12/07/15 09/29/16 21:00 History doctor nifedipine 60 mg tablet,extended 180 mg PO DAILY Check with primary 12/07/15 0 09/29/16 09:00 History release 24 hr doctor pantoprazole 20 mg tablet,delayed 20 mg PO DAILY [facility] 12/07/15 09/29/16 09:00 History release paroxetine HCl 25 mg 75 mg PO DAILY depression 09/29/16 09:00 History tablet,extended release 24 hr (Paxil CR) aspirin 325 mg tablet,delayed 325 mg PO DAILY HEART 09/29/16 09:00 History release buspirone 5 mg tablet 30 mg PO BID Check with prim lesley 04/26/16 09/29/16 21:00 History doctor budesonide 3 mg 9 mg PO DAILY Check with loretta deyanira 09/30/16 Unknown History capsule,delayed,extended release doctor (Entocort EC) lorazepam 0.5 mg tablet 0.5 mg PO Q6H PRN PRN Anxiet y ##10 10/03/16 Unknown Rx dicyclomine 20 mg tablet 20 mg PO TID Check with prim lesley 09/02/22 Unknown History doctor Metamucil Check with primary doctor Unknown History food supplemt, lactose-reduced 120 ml PO 4X/DAY Check with 09/07/22 Unknown History 0.08 gram-1.5 kcal/mL oral liquid primary doctor (Ensure Enlive) loperamide 2 mg tablet 2 mg PO Q6H PRN Constipation 09/07/22 Unknown History omeprazole 40 mg PO/SL DAILY Check with 09/07/22 Unknown History primary doctor atorvastatin 80 mg tablet 20 mg (1/4 x 80 mg) PO QHS # 30 tabs 09/08/22 Unknown Rx cephalexin 500 mg capsule 500 mg PO BID #12 caps 09/08 Unknown Rx amoxicillin 875 mg-potassium 875 mg (0.875 x 875-125 m g) PO 04/29/23 Unknown Rx clavulanate 125 mg tablet Q12H #10 TABLETS Allergy/AdvReac Type Severity Reaction Status Date / Time acetaminophen (From Percocet) Allergy Other Verified 01/06/25 14:05 oxycodone (From Percocet) Allergy Other Verified 01/06/25 14:05 codeine AdvReac Nausea & Verified 01/06/25 14:05 dizziness oxycodone HCl (From Percocet) AdvReac Nausea & Verified 01/06/25 14:05 dizziness Family History Father Diabetes Dementia Surgical History S/P ORIF (open reduction internal fixation) fracture History of surgery on wrist History of cataract surgery History of ankle surgery Social History household members: none Smoking Status: Never smoker substance use type: does not use Vital Signs Vital Signs Vital Signs: 03/02/25 13:34 Temperature 98.7 F Temperature Source Temporal Pulse Rate 91 Respiratory Rate 16 Blood Pressure 99/56 L Blood Pressure Mean 70 Blood Pressure Source Monitor Blood Pressure Position Sitting Blood Pressure Location Right Arm Oxygen Delivery Method Room Air Weight Weight: 95 lb Body Mass Index (BMI) 19.5 Physical Exam Const alert, oriented x3, no apparent distress and average body habitus Constitutional Narrative: The patient's BMI is 19.5. General Appearance: cooperative, comfortable, well kempt and well developed Orientation / Consciousness: awake, oriented to person, oriented to place and oriented to time Exam Limitations: no limitations HEENT normocephalic and head/scalp atraumatic Head and Scalp: normal to inspection, normocephalic and atraumatic Face and Sinus: normal facial exam Nose: external nose normal External Ear: external ears normal Eyes EOMs intact bilaterally General Eye: normal appearance of both eyes Neck full ROM Resp normal respiratory effort, normal air movement, no retractions and no use of accessory muscles Effort and Inspection: able to speak in complete sentences Extremity General Extremity: Negative for clubbing or cyanosis Skin Wound Narrative: A traumatic wound is noted on the patient's left medial calf. It is an avulsioninjury, with a resultant flap of skin. At the time of the patient's original Emergency Department visit, the flap was repositioned, and sutured in place using seven 5-0 nylon sutures. The sutures have been removed during previous visits. A large portion of the avulsion flap, which had been repositioned and sutured in place, subsequently necrosed and was no longer viable. The currentwound demonstrates a bed of generally pink, healthy granulation tissue with a small amount of bioburden. It is full-thickness in nature, extending through all layers of the dermis and into the subcutaneous tissues. Wound margins are well beveled. There is no sign of infection or cellulitis. No significant swelling or edema are noted in the left lower extremity. The wound continues todiminish in size, and dimensions are documented elsewhere. Neuro oriented x3, CN's II-XII intact bilaterally, moves all extremities, no focal motor deficits and no sensory deficits noted Sensorium / Orientation: awake, alert, oriented to person, oriented to place andoriented to time Speech: speech normal Psych Appearance: grossly normal and appropriate Attitude: calm Activity / Motor Behavior: appropriate eye contact Speech: normal speech Mood & Affect: euthymic mood Thought Process: normal thought process Thought Content: normal thought content Attention / Concentration: attention grossly intact Debridement Note Debridement Note Wound debrided: Traumatic avulsion injury of the left medial calf Laterality: Left Type of Debridement: Excisional debridement Anesthesia Used: 5% Lidocaine Gel and Cetacaine Depth: Down to and including healthy tissue and in the subcutaneous layer Percentage of wound debrided: 100 Instrument Used: 5mm curette Tissue Removed: Bioburden Severity: Fat Layer Exposed Amount of bleeding with debridement: Mild Bleeding Controlled with: Compression and gauze Patient tolerated procedure: Patient tolerated procedure well Post-Debridement Measurements and Additional Note: Post-Debridement Measurements/Treatment - Nurse 1 - General Ulcer Assessment Start: 02/09/25 13:13 Freq: Status: Active Protocol: .MARYLOU Activity Type Activity Date Activity User E-sign Co-sign Detail Recorded Client Recorded Date Recorded By Document 02/09/25 13:13 KW [id number] 02/09/25 13:18 KW Document 02/16/25 13:06 KW [id number] 02/16/25 13:16 KW Document 02/23/25 13:26 ML [id number] 02/23/25 13:36 ML Document 03/02/25 13:34 KW [id number] 03/02/25 13:40 KW 02/09/25 02/16/25 02/23/25 13:13 13:06 13:26 - Today's Visit Information Type of service Follow-up Visit Follow-up Visit Follow-up Visit (Physician/DEALERSHIP MANAGER (Physician/DEALERSHIP MANAGER (Physician/DEALERSHIP MANAGER ) ) ) Arrival Mode Ambulatory,Cane Ambulatory,Cane Ambulatory Patient Identification Verified (Name & Yes Yes Yes ) Patient Requires Transmission-Based No Precautions Height and Weight Body Mass Index (BMI) 19.5 19.5 19.5 BMI Classification Normal Normal Normal Vital Signs Temperature (97.8 F-99.1 F) 97.4 F L 97.2 F L 97.2 F L Temperature Source Temporal Temporal Temporal Pulse Rate (60-100) 96 85 84 Pulse Location Monitor Monitor Monitor Respiratory Rate (12-18) 18 16 14 Respiratory rate source Observation Observation Observation Oxygen Delivery Method Room Air Room Air Blood Pressure (90/60-120/80) 106/53 L 115/64 96/76 Blood Pressure Mean 70 81 82 Source Monitor Monitor Monitor Position Semi-Fowlers Semi-Fowlers Supine Blood Pressure Location Left Arm Right Arm Left Arm History Since Last Visit- (Skip if this is Patient's initial visit) Have you changed medications since your No No No last visit? Any new allergies or adverse reactions No No No Had a fall/change in ADL's that may No No No increase risk of falls Signs or symptoms of abuse and/or No No No neglect since last visit Have you been in the hospital since your No No No last visit? Has dressing in place as prescribed Yes Yes Yes Has compression in place as prescribed Yes Yes N/A Has offloadiing in place as prescribed N/A N/A N/A Experienced any changes in pain level or No No No management Left Footwear Regular Shoe Regular Shoe Right Footwear Regular Shoe Regular Shoe Pain Scale: 0-10 Numeric Is Patient Pain Free? Yes Yes Yes 03/02/25 13:34 WC - Today's Visit Information Type of service Follow-up Visit (Physician/DEALERSHIP MANAGER ) Arrival Mode Ambulatory,Cane Patient Identification Verified (Name & Yes ) Patient Requires Transmission-Based Precautions Height and Weight Body Mass Index (BMI) 19.5 BMI Classification Normal Vital Signs Temperature (97.8 F-99.1 F) 98.7 F Temperature Source Temporal Pulse Rate (60-100) 91 Pulse Location Monitor Respiratory Rate (12-18) 16 Respiratory rate source Observation Oxygen Delivery Method Room Air Blood Pressure (90/60-120/80) 99/56 L Blood Pressure Mean 70 Source Monitor Position Sitting Blood Pressure Location Right Arm History Since Last Visit- (Skip if this is Patient's initial visit) Have you changed medications since your No last visit? Any new allergies or adverse reactions No Had a fall/change in ADL's that may No increase risk of falls Signs or symptoms of abuse and/or No neglect since last visit Have you been in the hospital since your No last visit? Has dressing in place as prescribed Yes Has compression in place as prescribed Yes Has offloadiing in place as prescribed N/A Experienced any changes in pain level or No management Left Footwear Regular Shoe Right Footwear Regular Shoe Pain Scale: 0-10 Numeric Is Patient Pain Free? Yes WC - Nurse 1 - General Ulcer Measurement Start: 02/09/25 13:13 Freq: Status: Active Protocol: Activity Type Activity Date Activity User E-sign Co-sign Detail Recorded Client Recorded Date Recorded By Document 02/09/25 13:13 KW [id number] 02/09/25 13:18 KW Document 02/16/25 13:06 KW [id number] 02/16/25 13:16 KW Document 02/23/25 13:26 ML [id number] 02/23/25 13:36 ML Document 03/02/25 13:34 KW [id number] 03/02/25 13:40 KW 02/09/25 02/16/25 02/23/25 13:13 13:06 13:26 Wound Center Nurse 1 #1 LT MED LE -Current Size (cm) - Length 2.2 1.5 1 -Current Size (cm) - Width 2.5 2 1 -Current Size (cm) - Depth 0.1 0.1 0.1 -Total Square Cm 5.50 3.0 1 -Date of Last Picture (Recall this 02/09/25 02/16/25 field) -Exudate Amt Medium Medium Small -Exudate Type Serosanguineous Serosanguineous Serosanguineous -Wound Margin Distinct, Distinct, Outline Outline Attached Attached -Granulation Amt Medium (34-66%) Large (67-100%) -Granulation Quality [place] -Slough/Fibrin Yes -Necrosis Amt Medium (34-66%) Medium (34-66%) None Present (0 %) -Necrotic Tissue Type Adherent Slough Adherent Slough Adherent Slough -Texture (Maylin-wound Skin Appearance) Assessed Assessed Assessed -Moisture (Maylin-wound Skin Appearance) Assessed Assessed Assessed -Color (Maylin-wound Skin Appearance) Assessed, Assessed, Assessed Erythema Erythema -Temperature (Maylin-wound Skin No Abnormality No Abnormality No Abnormality Appearance) (Pt Warm) (Pt Warm) (Pt Warm) -Tenderness on Palpation (Maylin-wound No No No Skin Appearance) -Ulcer Cleansing Rinsed/ Rinsed/ Rinsed/ Irrigated with Irrigated with Irrigated with Saline Saline Saline -Foul Odor after Cleansing No No No -Anesthetic Used 5% Lidocaine 5% Lidocaine 5% Lidocaine Gel Gel Gel Left Calf (cm) Left Ankle (cm) 03/02/25 13:34 Wound Center Nurse 1 #1 LT MED LE -Current Size (cm) - Length 1 -Current Size (cm) - Width 1 -Current Size (cm) - Depth 0.1 -Total Square Cm 1 -Date of Last Picture (Recall this 03/02/25 field) -Exudate Amt -Exudate Type -Wound Margin -Granulation Amt Large (67-100%) -Granulation Quality [place] -Slough/Fibrin -Necrosis Amt Small (1-33%) -Necrotic Tissue Type Adherent Slough -Texture (Maylin-wound Skin Appearance) Assessed -Moisture (Maylin-wound Skin Appearance) Assessed -Color (Maylin-wound Skin Appearance) Assessed -Temperature (Maylin-wound Skin No Abnormality Appearance) (Pt Warm) -Tenderness on Palpation (Maylin-wound No Skin Appearance) -Ulcer Cleansing Soap and Water -Foul Odor after Cleansing No -Anesthetic Used 5% Lidocaine Gel Left Calf (cm) 32.5 Left Ankle (cm) 17 WC - Nurse 2 - General Ulcer CM Notes Start: 02/09/25 13:13 Freq: Status: Active Protocol: Activity Type Activity Date Activity User E-sign Co-sign Detail Recorded Client Recorded Date Recorded By Document 02/09/25 13:24 DS [id number] 02/09/25 13:28 DS Document 02/16/25 13:33 DS [id number] 02/16/25 13:36 DS Document 02/23/25 13:47 DS [id number] 02/23/25 13:50 DS Document 03/02/25 14:09 DS [id number] 03/02/25 14:11 DS 02/09/25 02/16/25 02/23/25 13:24 13:33 13:47 Wound Center Nurse 2 #1 LT MED LE -Time 13:24 13:33 13:47 -Correct Patient Yes Yes Yes -Correct Side, Site, Position Yes Yes Yes -Correct Procedure Yes Yes Yes -Procedure Performed Yes Yes Yes -Type of Procedure Debridement Debridement Debridement -Clinical Debridement Subcutaneous Subcutaneous Subcutaneous -Tissue Removed Subcutaneous Subcutaneous Subcutaneous -Post Debridement (cm) - Length 1.5 1.5 1.5 -Post Debridement (cm) - Width 1.5 1.8 1.5 -Post Debridement (cm) - Depth 0.1 0.1 0.1 -Total Square (Post) (cm) 2.25 2.70 2.25 -Area of Debridement (cm) - Length 1.5 1.5 1.5 -Area of Debridement (cm) - Width 1.5 1.8 1.5 -Total Square (Area) (cm) 2.25 2.70 2.25 -Tunneling No No No -Undermining/Tunneling No No No -Circular Undermining No No No -Wound/Ulcer Outcome Not Healed Not Healed Not Healed -Ulcer Cleansing Rinsed/ Rinsed/ Rinsed/ Irrigated with Irrigated with Irrigated with Saline Saline Saline -Foul Odor after Cleansing No No No -Bioengineered Tissue No No No -Bleeding Controlled with Pressure Pressure Pressure -Treatment Response Procedure Procedure Procedure Tolerated Well Tolerated Well Tolerated Well -Debridement - Subq, 1st 20sq cm Yes Yes Yes Pain Scale: 0-10 Numeric Is Patient Pain Free? Yes Yes Yes 03/02/25 14:09 Wound Center Nurse 2 #1 LT MED LE -Time 14:09 -Correct Patient Yes -Correct Side, Site, Position Yes -Correct Procedure Yes -Procedure Performed Yes -Type of Procedure Debridement -Clinical Debridement Subcutaneous -Tissue Removed Subcutaneous -Post Debridement (cm) - Length 1.2 -Post Debridement (cm) - Width 1.3 -Post Debridement (cm) - Depth 0.1 -Total Square (Post) (cm) 1.56 -Area of Debridement (cm) - Length 1.2 -Area of Debridement (cm) - Width 1.3 -Total Square (Area) (cm) 1.56 -Tunneling No -Undermining/Tunneling No -Circular Undermining No -Wound/Ulcer Outcome Not Healed -Ulcer Cleansing Rinsed/ Irrigated with Saline -Foul Odor after Cleansing No -Bioengineered Tissue No -Bleeding Controlled with Pressure -Treatment Response Procedure Tolerated Well -Debridement - Subq, 1st 20sq cm Yes Pain Scale: 0-10 Numeric Is Patient Pain Free? Yes WC - Nurse 3 - General Ulcer D/C NN Start: 02/09/25 13:13 Freq: Status: Active Protocol: Activity Type Activity Date Activity User E-sign Co-sign Detail Recorded Client Recorded Date Recorded By Document 02/09/25 13:32 KW [id number] 02/09/25 13:33 KW Document 02/16/25 13:46 KW [id number] 02/16/25 13:46 KW Document 02/23/25 13:57 ML [id number] 02/23/25 13:58 ML Document 03/02/25 14:25 [facility] [id number] 03/02/25 14:26 [facility] 02/09/25 02/16/25 02/23/25 13:32 13:46 13:57 Wound Care Center Nurse 3 #1 LT MED LE -Ulcer Cleansing Rinsed/ Irrigated with Saline -Foul Odor after Cleansing -Primary Dressing Applied Aquacel Extra Aquacel Extra Aquacel Extra -Other Dressing JOHN -Primary Dressing Covered/Secured with Dry Gauze & Dry Gauze & Dry Gauze & Roll Gauze, Roll Gauze, Roll Gauze, Secured with Secured with Secured with Tape Tape Tape -Aquacel Extra 1 1 1 LLE -Compression Wrap John Wrap John Wrap -Other 4in Treatment Response Pain Scale: 0-10 Numeric Is Patient Pain Free? Yes Yes Yes WC - Visit Discharge Discharge Condition Stable Stable Ambulatory Status Ambulatory,Cane Ambulatory,Cane Transportation Private Auto Private Auto Medication Reconcilliation completed & No No provided to patient/care provider Clinical Summary of Care Provided Yes Yes 03/02/25 14:25 Wound Care Center Nurse 3 #1 LT MED LE -Ulcer Cleansing Rinsed/ Irrigated with Saline -Foul Odor after Cleansing No -Primary Dressing Applied Aquacel Extra -Other Dressing -Primary Dressing Covered/Secured with Dry Gauze & Roll Gauze, Secured with Tape -Aquacel Extra 1 LLE -Compression Wrap John Wrap -Other Treatment Response Procedure Tolerated Well Pain Scale: 0-10 Numeric Is Patient Pain Free? Yes WC - Visit Discharge Discharge Condition Stable Ambulatory Status Ambulatory,Cane Transportation Private Auto Medication Reconcilliation completed & provided to patient/care provider Clinical Summary of Care Provided Charges/Coding Procedures Integumentary 111xxx-113xx: [id number] Esha subq tissue 20 sq cm/< Assessment/Plan Assessment/Plan (1) Non-pressure chronic ulcer of left calf with fat layer exposed: CODE(S): L97.222 - Non-pressure chronic ulcer of left calf with fat layer exposed (2) Traumatic open wound of lower leg: CODE(S): S81.809A - Unspecified open wound, unspecified lower leg, initialencounter QUALIFIERS: Encounter type: subsequent encounter Laterality: left Qualified Code(s): S81.802D - Unspecified open wound, left lower leg, subsequent encounter (3) Avulsion injury: CODE(S): T14.8XXA - Other injury of unspecified body region, initial encounter (4) S/P ORIF (open reduction internal fixation) fracture: CODE(S): Z96.7 - Presence of other bone and tendon implants; Z87.81 - Personal history of (healed) traumatic fracture (5) S/P ORIF (open reduction internal fixation) fracture: CODE(S): Z98.890 - Other specified postprocedural states; Z87.81 - Personal history of (healed) traumatic fracture (6) History of surgery on wrist: CODE(S): Z98.890 - Other specified postprocedural states (7) History of cataract surgery: CODE(S): Z98.49 - Cataract extraction status, unspecified eye (8) History of ankle surgery: CODE(S): Z98.890 - Other specified postprocedural states (9) Hypothyroidism: CODE(S): E03.9 - Hypothyroidism, unspecified QUALIFIERS: Hypothyroidism type: acquired Qualified Code(s): E03.9 - Hypothyroidism, unspecified (10) Raynaud phenomenon: CODE(S): I73.00 - Raynaud's syndrome without gangrene QUALIFIERS: Raynaud?s-associated gangrene presence: without gangrene Qualified Code(s): I73.00 - Raynaud's syndrome without gangrene (11) Osteoporosis: CODE(S): M81.0 - Age-related osteoporosis without current pathological fracture (12) Ysda-ctvp-wwvvqoegpjnhhbl: 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 The injury occurred when thepatient's dog traumatized her leg with its nails. Immediately following her injury, the patient presented to the [facility] Emergency Department, where the avulsion flap was repositioned and sutured in place. The central portion of the traumatic flap has necrosed, and is no longer viable. The remaining wound is full-thickness, extending down into the subcutaneous tissues. There has been recent improvement, with a decreasein the size of the patient's wound. We are to continue the use of Aquacel Extra topically, which will be moistened at the time of application. The patient has been instructed in the appropriate meansof daily application. Mild compression is to be applied by means of an John wrap, which will also beapplied on a daily basis. The patient has been counseled to elevate her lower extremities as much as possible, to remain active, and to avoid prolonged, idle sitting. She is to return in 1 week for reassessment. The patient has been advised to optimize hernutritional intake, and is using Huy as asupplement. Total time: 22 minutes 03/03/25 1106 Cosigner Signature (if applicable): CC: ~ Signed [facility]06-24-2025 Evaluation note* Diagnosis Onset Date Resolution Status Admit Date Avulsion injury acute February 1:30pm History of ankle surgery acute March 02, 2025 1:30pm History of cataract surgery acute March 02, 2025 1:30pm History of surgery on wrist acute March 02, 2025 1:30pm Mqlj-jfjx-rpeinsfgfftjugt acute March 02, 2025 1:30pm S/P ORIF (open reduction internal fixation) fracture acute March 02, 2025 1:30pm Traumatic open wound of lowe r leg acute March 02, 2025 1:30pm Hypothyroidism chronic March 02, 2025 1:30pm 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 March 02, 2025 1:30pm Osteoporosis chronic March 02, 2 025 1:30pm Raynaud phenomenon chronic February 082024 1:30pm S/P ORIF (open reduction internal fixation) fracture chronic March 02, 2025 1:30pm Avulsion injury acute March 1:15pm History of ankle surgery acute March 30, 2025 1:15pm History of cataract surgery acute March 30, 2025 1:15pm History of surgery on wrist acute March 30, 2025 1:15pm Fiee-xdbo-ywwtnzkvbsoisge acute March 30, 2025 1:15pm S/P ORIF (open reduction internal fixation) fracture acute March 30, 2025 1:15pm Traumatic open wound of lowe r leg acute March 30, 2025 1:15pm Hypothyroidism chronic March 30, 2025 1:15pm 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 March 30, 2025 1:15pm Non-pressure chronic ulcer o f right calf with fat layer exposed chronic March 30, 2025 1:15pm Osteoporosis chronic March 30, 1:15pm Raynaud phenomenon chronic March 102024 1:15pm S/P ORIF (open reduction internal fixation) fracture chronic March 30, 2025 1:15pm History of ankle surgery acute May 04, 2025 1:00pm History of cataract surgery acute May 04, 2025 1:00pm History of surgery on wrist acute May 04, 2025 1:00pm Snuu-huyq-fczilbvihybhmbv acute May 04, 2025 1:00pm S/P ORIF (open reduction internal fixation) fracture acute 2024 1:00pm Traumatic open wound of lowe r leg acute May 04 1:00pm Hypothyroidism chronic April 1:00pm Non-pressure chronic ulcer o f right calf with fat layer exposed chronic May 04 1:00pm Osteoporosis chronic May 04, 2025 1:00pm Raynaud phenomenon chronic May 04, 2025 1:00pm S/P ORIF (open reduction internal fixation) fracture chronic 2024 1:00pm History of ankle surgery acute May 25, 2025 12:45pm History of cataract surgery acute May 25, 2025 12:45pm History of surgery on wrist acute May 25, 2025 12:45pm Rlbp-dxyk-xtkmqecsqilofcz acute May 25, 2025 12:45pm S/P ORIF (open reduction internal fixation) fracture acute May 12:45pm Traumatic open wound of lowe r leg acute May 25, 2025 12:45pm Hypothyroidism chronic May 25, 2025 12:45pm Non-pressure chronic ulcer o f right calf with fat layer exposed chronic May 25, 2025 12:45pm Osteoporosis chronic May 252024 12:45pm Raynaud phenomenon chronic 2024 12:45pm S/P ORIF (open reduction internal fixation) fracture chronic May emb2024 12:45pm [facility] Work Phone: 1(238) 725-297706-18-2025 History and physical note Author Cedric Gibbons [facility] Note Date/Time February 24, 2025 11:2 3am [facility] [address] [place] [address] H&P Exam - Wound Care 02/24/25 1110 MR#: [id number] Acct: [id number] Name: GERALDINE HAIRSTON Rep #:[id number] 08 : 1950 74 From: Cedric Worthington PCP: Dr. Chance Kolb MD Status: G RCR Location: History of Present Illness Date of Service: 02/23/25 Chief Complaint: Traumatic avulsion injury of the left medial calf History of Wound: This is a 74-year-old female who sustained a traumatic injury to her left medial calf on January 01, 2025. At the time of her injury, she presented to the [facility] Emergency Department, where she was found to have an avulsion injury with a significant adherent cutaneous flap. The injury was caused by the nails of her dog, who had jumped off the couch. Inthe Emergency Department, the flap was sutured in place using seven 5-0 nylon sutures. The patient was placed on Keflex and Augmentin orally, and was discharged. The patient is generally healthy for her age, though has a history of qzej-wyoe-bziwhwsooklzqnh, GERD, hypertension, hypothyroidism, and osteoporosis. She denies a history of diabetes mellitus, myocardial infarction,cerebrovascular accident, renal disease, and pulmonary disease. Her BMI is 19.5. She is . [facility] Medical History Non-pressure chronic ulcer of left calf with fat layer exposed Traumatic open wound of lower leg Avulsion injury GERD (gastroesophageal reflux disease) HTN (hypertension) Hypothyroidism Depression Anxiety Home Medications ?Medication ?Instructions ?Recorded ?Last Taken ?Type levothyroxine 25 mcg tablet 25 mcg PO DAILY Check with primary 02/07/15 09/29/16 09:00 History doctor Bacillus coagulans-inulin 1 1 ea PO DAILY Check with p altaary 12/07/15 09/29/16 09:00 History billion cell-250 mg capsule doctor (Probiotic Formula (inulin)) gabapentin 100 mg capsule 600 mg PO BID Check with loretta deyanira 12/07/15 09/29/16 21:00 History doctor nifedipine 60 mg tablet,extended 180 mg PO DAILY Check with primary 12/07/15 0 09/29/16 09:00 History release 24 hr doctor pantoprazole 20 mg tablet,delayed 20 mg PO DAILY [facility] 12/07/15 09/29/16 09:00 History release paroxetine HCl 25 mg 75 mg PO DAILY depression 09/29/16 09:00 History tablet,extended release 24 hr (Paxil CR) aspirin 325 mg tablet,delayed 325 mg PO DAILY HEART 09/29/16 09:00 History release buspirone 5 mg tablet 30 mg PO BID Check with prim lesley 04/26/16 09/29/16 21:00 History doctor budesonide 3 mg 9 mg PO DAILY Check with loretta deyanira 09/30/16 Unknown History capsule,delayed,extended release doctor (Entocort EC) lorazepam 0.5 mg tablet 0.5 mg PO Q6H PRN PRN Anxiet y ##10 10/03/16 Unknown Rx dicyclomine 20 mg tablet 20 mg PO TID Check with prim lesley 09/02/22 Unknown History doctor Metamucil Check with primary doctor Unknown History food supplemt, lactose-reduced 120 ml PO 4X/DAY Check with 09/07/22 Unknown History 0.08 gram-1.5 kcal/mL oral liquid primary doctor (Ensure Enlive) loperamide 2 mg tablet 2 mg PO Q6H PRN Constipation 09/07/22 Unknown History omeprazole 40 mg PO/SL DAILY Check with 09/07/22 Unknown History primary doctor atorvastatin 80 mg tablet 20 mg (1/4 x 80 mg) PO QHS # 30 tabs 09/08/22 Unknown Rx cephalexin 500 mg capsule 500 mg PO BID #12 caps 09/08 Unknown Rx amoxicillin 875 mg-potassium 875 mg (0.875 x 875-125 m g) PO 04/29/23 Unknown Rx clavulanate 125 mg tablet Q12H #10 TABLETS Allergy/AdvReac Type Severity Reaction Status Date / Time acetaminophen (From Percocet) Allergy Other Verified 01/06/25 14:05 oxycodone (From Percocet) Allergy Other Verified 01/06/25 14:05 codeine AdvReac Nausea & Verified 01/06/25 14:05 dizziness oxycodone HCl (From Percocet) AdvReac Nausea & Verified 01/06/25 14:05 dizziness Family History Father Diabetes Dementia Surgical History S/P ORIF (open reduction internal fixation) fracture History of surgery on wrist History of cataract surgery History of ankle surgery Social History household members: none Smoking Status: Never smoker substance use type: does not use Vital Signs Vital Signs Vital Signs: 02/23/25 13:26 Temperature 97.2 F L Temperature Source Temporal Pulse Rate 84 Respiratory Rate 14 Blood Pressure 96/76 Blood Pressure Mean 82 Blood Pressure Source Monitor Blood Pressure Position Supine Blood Pressure Location Left Arm Weight Weight: 95 lb Body Mass Index (BMI) 19.5 Physical Exam Const alert, oriented x3, no apparent distress and average body habitus Constitutional Narrative: The patient's BMI is 19.5. General Appearance: cooperative, comfortable, well kempt and well developed Orientation / Consciousness: awake, oriented to person, oriented to place and oriented to time Exam Limitations: no limitations HEENT normocephalic and head/scalp atraumatic Head and Scalp: normal to inspection, normocephalic and atraumatic Face and Sinus: normal facial exam Nose: external nose normal External Ear: external ears normal Eyes EOMs intact bilaterally General Eye: normal appearance of both eyes Neck full ROM Resp normal respiratory effort, normal air movement, no retractions and no use of accessory muscles Effort and Inspection: able to speak in complete sentences Extremity General Extremity: Negative for clubbing or cyanosis Skin Wound Narrative: A traumatic wound is noted on the patient's left medial calf. It is an avulsioninjury, with a resultant flap of skin. At the time of the patient's original Emergency Department visit, the flap was repositioned, and sutured in place using seven 5-0 nylon sutures. The sutures have been removed during previous visits. A large portion of the avulsion flap, which had been repositioned and sutured in place, has necrosed and is no longer viable. The wound demonstrates a small amount of yellowish, nonviable material, though increasing areas of healthy granulation tissue are noted. Peripherally, there appears to be evidence of epithelialization and healing. A small portion of the flap has survived and remains viable. The existing wound extends through all layers of the dermis and into the subcutaneous tissues. There is no sign of infection or cellulitis. No significant swelling or edema are noted. The wound continues todiminish in size, and dimensions are documented elsewhere. Wound margins are well beveled. Neuro oriented x3, CN's II-XII intact bilaterally, moves all extremities, no focal motor deficits and no sensory deficits noted Sensorium / Orientation: awake, alert, oriented to person, oriented to place andoriented to time Speech: speech normal Psych Appearance: grossly normal and appropriate Attitude: calm Activity / Motor Behavior: appropriate eye contact Speech: normal speech Mood & Affect: euthymic mood Thought Process: normal thought process Thought Content: normal thought content Attention / Concentration: attention grossly intact Debridement Note Debridement Note Wound debrided: Traumatic avulsion injury of the left medial calf Laterality: Left Type of Debridement: Excisional debridement Anesthesia Used: 5% Lidocaine Gel and Cetacaine Depth: Down to and including healthy tissue and in the subcutaneous layer Percentage of wound debrided: 100 Instrument Used: 5mm curette Tissue Removed: Nonviable tissue and bioburden Severity: Fat Layer Exposed Amount of bleeding with debridement: Mild Bleeding Controlled with: Compression and gauze Patient tolerated procedure: Patient tolerated procedure well Post-Debridement Measurements and Additional Note: Post-Debridement Measurements/Treatment DANTE - Nurse 1 - General Ulcer Assessment Start: 02/09/25 13:13 Freq: Status: Active Protocol: NATHALIE Activity Type Activity Date Activity User E-sign Co-sign Detail Recorded Client Recorded Date Recorded By Document 02/09/25 13:13 RUSS [id number] 02/09/25 13:18 KW Document 02/16/25 13:06 RUSS [id number] 02/16/25 13:16 KW Document 02/23/25 13:26 ML [id number] 02/23/25 13:36 ML 02/09/25 02/16/25 02/23/25 13:13 13:06 13:26 - Today's Visit Information Type of service Follow-up Visit Follow-up Visit Follow-up Visit (Physician/DEALERSHIP MANAGER (Physician/DEALERSHIP MANAGER (Physician/DEALERSHIP MANAGER ) ) ) Arrival Mode Ambulatory,Cane Ambulatory,Cane Ambulatory Patient Identification Verified (Name & Yes Yes Yes ) Patient Requires Transmission-Based No Precautions Height and Weight Body Mass Index (BMI) 19.5 19.5 19.5 BMI Classification Normal Normal Normal Vital Signs Temperature (97.8 F-99.1 F) 97.4 F L 97.2 F L 97.2 F L Temperature Source Temporal Temporal Temporal Pulse Rate (60-100) 96 85 84 Pulse Location Monitor Monitor Monitor Respiratory Rate (12-18) 18 16 14 Respiratory rate source Observation Observation Observation Oxygen Delivery Method Room Air Room Air Blood Pressure (90/60-120/80) 106/53 L 115/64 96/76 Blood Pressure Mean 70 81 82 Source Monitor Monitor Monitor Position Semi-Fowlers Semi-Fowlers Supine Blood Pressure Location Left Arm Right Arm Left Arm History Since Last Visit- (Skip if this is Patient's initial visit) Have you changed medications since your No No No last visit? Any new allergies or adverse reactions No No No Had a fall/change in ADL's that may No No No increase risk of falls Signs or symptoms of abuse and/or No No No neglect since last visit Have you been in the hospital since your No No No last visit? Has dressing in place as prescribed Yes Yes Yes Has compression in place as prescribed Yes Yes N/A Has offloadiing in place as prescribed N/A N/A N/A Experienced any changes in pain level or No No No management Left Footwear Regular Shoe Regular Shoe Right Footwear Regular Shoe Regular Shoe Pain Scale: 0-10 Numeric Is Patient Pain Free? Yes Yes Yes - Nurse 1 - General Ulcer Measurement Start: 02/09/25 13:13 Freq: Status: Active Protocol: Activity Type Activity Date Activity User E-sign Co-sign Detail Recorded Client Recorded Date Recorded By Document 02/09/25 13:13 [id number] 02/09/25 13:18 KW Document 02/16/25 13:06 KW [id number] 02/16/25 13:16 KW Document 02/23/25 13:26 ML [id number] 02/23/25 13:36 ML 02/09/25 02/16/25 02/23/25 13:13 13:06 13:26 Wound Center Nurse 1 #1 LT MED LE -Current Size (cm) - Length 2.2 1.5 1 -Current Size (cm) - Width 2.5 2 1 -Current Size (cm) - Depth 0.1 0.1 0.1 -Total Square Cm 5.50 3.0 1 -Date of Last Picture (Recall this 02/09/25 02/16/25 field) -Exudate Amt Medium Medium Small -Exudate Type Serosanguineous Serosanguineous Serosanguineous -Wound Margin Distinct, Distinct, Outline Outline Attached Attached -Granulation Amt Medium (34-66%) Large (67-100%) -Granulation Quality [place] -Slough/Fibrin Yes -Necrosis Amt Medium (34-66%) Medium (34-66%) None Present (0 %) -Necrotic Tissue Type Adherent Slough Adherent Slough Adherent Slough -Texture (Maylin-wound Skin Appearance) Assessed Assessed Assessed -Moisture (Maylin-wound Skin Appearance) Assessed Assessed Assessed -Color (Maylin-wound Skin Appearance) Assessed, Assessed, Assessed Erythema Erythema -Temperature (Maylin-wound Skin No Abnormality No Abnormality No Abnormality Appearance) (Pt Warm) (Pt Warm) (Pt Warm) -Tenderness on Palpation (Maylin-wound No No No Skin Appearance) -Ulcer Cleansing Rinsed/ Rinsed/ Rinsed/ Irrigated with Irrigated with Irrigated with Saline Saline Saline -Foul Odor after Cleansing No No No -Anesthetic Used 5% Lidocaine 5% Lidocaine 5% Lidocaine Gel Gel Gel WC - Nurse 2 - General Ulcer CM Notes Start: 02/09/25 13:13 Freq: Status: Active Protocol: Activity Type Activity Date Activity User E-sign Co-sign Detail Recorded Client Recorded Date Recorded By Document 02/09/25 13:24 DS [id number] 02/09/25 13:28 DS Document 02/16/25 13:33 DS [id number] 02/16/25 13:36 DS Document 02/23/25 13:47 DS [id number] 02/23/25 13:50 DS 02/09/25 02/16/2525 13:24 13:33 13:47 Wound Center Nurse 2 #1 LT MED LE -Time 13:24 13:33 13:47 -Correct Patient Yes Yes Yes -Correct Side, Site, Position Yes Yes Yes -Correct Procedure Yes Yes Yes -Procedure Performed Yes Yes Yes -Type of Procedure Debridement Debridement Debridement -Clinical Debridement Subcutaneous Subcutaneous Subcutaneous -Tissue Removed Subcutaneous Subcutaneous Subcutaneous -Post Debridement (cm) - Length 1.5 1.5 1.5 -Post Debridement (cm) - Width 1.5 1.8 1.5 -Post Debridement (cm) - Depth 0.1 0.1 0.1 -Total Square (Post) (cm) 2.25 2.70 2.25 -Area of Debridement (cm) - Length 1.5 1.5 1.5 -Area of Debridement (cm) - Width 1.5 1.8 1.5 -Total Square (Area) (cm) 2.25 2.70 2.25 -Tunneling No No No -Undermining/Tunneling No No No -Circular Undermining No No No -Wound/Ulcer Outcome Not Healed Not Healed Not Healed -Ulcer Cleansing Rinsed/ Rinsed/ Rinsed/ Irrigated with Irrigated with Irrigated with Saline Saline Saline -Foul Odor after Cleansing No No No -Bioengineered Tissue No No No -Bleeding Controlled with Pressure Pressure Pressure -Treatment Response Procedure Procedure Procedure Tolerated Well Tolerated Well Tolerated Well -Debridement - Subq, 1st 20sq cm Yes Yes Yes Pain Scale: 0-10 Numeric Is Patient Pain Free? Yes Yes Yes WC - Nurse 3 - General Ulcer D/C NN Start: 02/09/25 13:13 Freq: Status: Active Protocol: Activity Type Activity Date Activity User E-sign Co-sign Detail Recorded Client Recorded Date Recorded By Document 02/09/25 13:32 KW [id number] 02/09/25 13:33 KW Document 02/16/25 13:46 KW [id number] 02/16/25 13:46 KW Document 02/23/25 13:57 ML [id number] 02/23/25 13:58 ML 02/09/25 02/16/25 02/23/25 13:32 13:46 13:57 Wound Care Center Nurse 3 #1 LT MED LE -Ulcer Cleansing Rinsed/ Irrigated with Saline -Primary Dressing Applied Aquacel Extra Aquacel Extra Aquacel Extra -Other Dressing JOHN -Primary Dressing Covered/Secured with Dry Gauze & Dry Gauze & Dry Gauze & Roll Gauze, Roll Gauze, Roll Gauze, Secured with Secured with Secured with Tape Tape Tape -Aquacel Extra 1 1 1 LLE -Compression Wrap John Wrap John Wrap -Other 4in Pain Scale: 0-10 Numeric Is Patient Pain Free? Yes Yes Yes WC - Visit Discharge Discharge Condition Stable Stable Ambulatory Status Ambulatory,Cane Ambulatory,Cane Transportation Private Auto Private Auto Medication Reconcilliation completed & No No provided to patient/care provider Clinical Summary of Care Provided Yes Yes Charges/Coding Procedures Integumentary [id number]: [id number] Esha subq tissue 20 sq cm/< Assessment/Plan Assessment/Plan (1) Non-pressure chronic ulcer of left calf with fat layer exposed: CODE(S): L97.222 - Non-pressure chronic ulcer of left calf with fat layer exposed (2) Traumatic open wound of lower leg: CODE(S): S81.809A - Unspecified open wound, unspecified lower leg, initialencounter QUALIFIERS: Encounter type: subsequent encounter Laterality: left Qualified Code(s): S81.802D - Unspecified open wound, left lower leg, subsequent encounter (3) Avulsion injury: CODE(S): T14.8XXA - Other injury of unspecified body region, initial encounter (4) S/P ORIF (open reduction internal fixation) fracture: CODE(S): Z96.7 - Presence of other bone and tendon implants; Z87.81 - Personal history of (healed) traumatic fracture (5) S/P ORIF (open reduction internal fixation) fracture: CODE(S): Z98.890 - Other specified postprocedural states; Z87.81 - Personal history of (healed) traumatic fracture (6) History of surgery on wrist: CODE(S): Z98.890 - Other specified postprocedural states (7) History of cataract surgery: CODE(S): Z98.49 - Cataract extraction status, unspecified eye (8) History of ankle surgery: CODE(S): Z98.890 - Other specified postprocedural states (9) Hypothyroidism: CODE(S): E03.9 - Hypothyroidism, unspecified QUALIFIERS: Hypothyroidism type: acquired Qualified Code(s): E03.9 - Hypothyroidism, unspecified (10) Raynaud phenomenon: CODE(S): I73.00 - Raynaud's syndrome without gangrene QUALIFIERS: Raynaud?s-associated gangrene presence: without gangrene Qualified Code(s): I73.00 - Raynaud's syndrome without gangrene (11) Osteoporosis: CODE(S): M81.0 - Age-related osteoporosis without current pathological fracture (12) Xkwg-knss-tlgonrixnsvpuqq: 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 The injury occurred when thepatient's dog traumatized her leg with its nails. Immediately following her injury, the patient presented to the [facility] Emergency Department, where the avulsion flap was repositioned and sutured in place. The central portion of the traumatic flap has now necrosed, and is no longer viable. This portion of the wound has been debrided in the Wound Center today. It is afull-thickness ulceration, extending down into the subcutaneous tissues. There has been recent improvement, with a decrease in the size of the patient's wound. We are to continue the use of Aquacel Extra topically, which will be moistened at the time of application. The patient has been instructed in the appropriate means of application. Mild compression is to be applied by means of an John wrap, which will be applied on a daily basis. The patient has been counseled toelevate her lower extremities as much as possible, to remain active, and to avoid prolonged, idle sitting. She is to return in 1 week for reassessment. The patient has been advised to optimize her nutritional intake, and is using Huy as a supplement. Total time: 24 minutes 02/24/25 1123 <Electronically signed by Cedric Gibbons MD> Cosigner Signature (if applicable): CC: ~ Signed [facility] Work Phone: 1(227) 810-866206-18-2025 History and physical note [facility] [address] [place] [id number] H&P Exam - Wound Care 02/24/25 1110 MR#: [id number] Acct: [id number] Name: GERALDINE HAIRSTON Rep #:[id number] 08 : 1950 74 From: Cedric Worthington PCP: Dr. Chance Kolb MD Status:RE G RCR Location: History of Present Illness Date of Service: 02/23/25 Chief Complaint: Traumatic avulsion injury of the left medial calf History of Wound: This is a 74-year-old female who sustained a traumatic injury to her left medial calf on January 01, 2025. At the time of her injury, she presented to the [facility] Emergency Department, where she was found to have an avulsion injury with a significant adherent cutaneous flap. The injury was caused by the nails of her dog, who had jumped off the couch. Inthe Emergency Department, the flap was sutured in place using seven 5-0 nylon sutures. The patient was placedon Keflex and Augmentin orally, and was discharged. The patient is generally healthy for her age, though has a history of gakp-yfxp-ehggwxyyvyzheaj, GERD, hypertension, hypothyroidism, and osteoporosis. She denies a history of diabetes mellitus, myocardial infarction,cerebrovascular accident, renaldisease, and pulmonary disease. Her BMI is 19.5. She is . [facility] Medical History Non-pressure chronic ulcer of left calf with fat layer exposed Traumatic open wound of lower leg Avulsion injury GERD (gastroesophageal reflux disease) HTN (hypertension) Hypothyroidism Depression Anxiety Home Medications ?Medication ?Instructions ?Recorded ?Last Taken ?Type levothyroxine 25 mcg tablet 25 mcg PO DAILY Check with primary 02/07/15 09/29/16 09:00 History doctor Bacillus coagulans-inulin 1 1 ea PO DAILY Check with jesus cheung 12/07/15 09/29/16 09:00 History billion cell-250 mg capsule doctor (Probiotic Formula (inulin)) gabapentin 100 mg capsule 600 mg PO BID Check with loretta mcmillan 12/07/15 09/29/16 21:00 History doctor nifedipine 60 mg tablet,extended 180 mg PO DAILY Check with primary 12/07/15 0 09/29/16 09:00 History release 24 hr doctor pantoprazole 20 mg tablet,delayed 20 mg PO DAILY [facility] 12/07/15 09/29/16 09:00 History release paroxetine HCl 25 mg 75 mg PO DAILY depression 09/29/16 09:00 History tablet,extended release 24 hr (Paxil CR) aspirin 325 mg tablet,delayed 325 mg PO DAILY HEART 09/29/16 09:00 History release buspirone 5 mg tablet 30 mg PO BID Check with prim lesley 04/26/16 09/29/16 21:00 History doctor budesonide 3 mg 9 mg PO DAILY Check with loretta deyanira 09/30/16 Unknown History capsule,delayed,extended release doctor (Entocort EC) lorazepam 0.5 mg tablet 0.5 mg PO Q6H PRN PRN Anxiet y ##10 10/03/16 Unknown Rx dicyclomine 20 mg tablet 20 mg PO TID Check with prim lesley 09/02/22 Unknown History doctor Metamucil Check with primary doctor Unknown History food supplemt, lactose-reduced 120 ml PO 4X/DAY Check with 09/07/22 Unknown History 0.08 gram-1.5 kcal/mL oral liquid primary doctor (Ensure Enlive) loperamide 2 mg tablet 2 mg PO Q6H PRN Constipation 09/07/22 Unknown History omeprazole 40 mg PO/SL DAILY Check with 09/07/22 Unknown History primary doctor atorvastatin 80 mg tablet 20 mg (1/4 x 80 mg) PO QHS # 30 tabs 09/08/22 Unknown Rx cephalexin 500 mg capsule 500 mg PO BID #12 caps 09/08 Unknown Rx amoxicillin 875 mg-potassium 875 mg (0.875 x 875-125 m g) PO 04/29/23 Unknown Rx clavulanate 125 mg tablet Q12H #10 TABLETS Allergy/AdvReac Type Severity Reaction Status Date / Time acetaminophen (From Percocet) Allergy Other Verified 01/06/25 14:05 oxycodone (From Percocet) Allergy Other Verified 01/06/25 14:05 codeine AdvReac Nausea & Verified 01/06/25 14:05 dizziness oxycodone HCl (From Percocet) AdvReac Nausea & Verified 01/06/25 14:05 dizziness Family History Father Diabetes Dementia Surgical History S/P ORIF (open reduction internal fixation) fracture History of surgery on wrist History of cataract surgery History of ankle surgery Social History household members: none Smoking Status: Never smoker substance use type: does not use Vital Signs Vital Signs Vital Signs: 02/23/25 13:26 Temperature 97.2 F L Temperature Source Temporal Pulse Rate 84 Respiratory Rate 14 Blood Pressure 96/76 Blood Pressure Mean 82 Blood Pressure Source Monitor Blood Pressure Position Supine Blood Pressure Location Left Arm Weight Weight: 95 lb Body Mass Index (BMI) 19.5 Physical Exam Const alert, oriented x3, no apparent distress and average body habitus Constitutional Narrative: The patient's BMI is 19.5. General Appearance: cooperative, comfortable, well kempt and well developed Orientation / Consciousness: awake, oriented to person, oriented to place and oriented to time Exam Limitations: no limitations HEENT normocephalic and head/scalp atraumatic Head and Scalp: normal to inspection, normocephalic and atraumatic Face and Sinus: normal facial exam Nose: external nose normal External Ear: external ears normal Eyes EOMs intact bilaterally General Eye: normal appearance of both eyes Neck full ROM Resp normal respiratory effort, normal air movement, no retractions and no use of accessory muscles Effort and Inspection: able to speak in complete sentences Extremity General Extremity: Negative for clubbing or cyanosis Skin Wound Narrative: A traumatic wound is noted on the patient's left medial calf. It is an avulsioninjury, with a resultant flap of skin. At the time of the patient's original Emergency Department visit, the flap was repositioned, and sutured in place using seven 5-0 nylon sutures. The sutures have been removed during previous visits. A large portion of the avulsion flap, which had been repositioned and sutured in place, has necrosed and is no longer viable. The wound demonstrates a small amount of yellowish, nonviable material, though increasing areas of healthy granulation tissue are noted. Peripherally, there appears to be evidence of epithelialization and healing. A small portion of the flap has survived and remains viable. The existing wound extends through all layers of the dermis and into the subcutaneous tissues. There is no sign of infection or cellulitis. No significant swelling or edema are noted. The wound continues todiminish in size, and dimensions are documented elsewhere. Wound margins are well beveled. Neuro oriented x3, CN's II-XII intact bilaterally, moves all extremities, no focal motor deficits and no sensory deficits noted Sensorium / Orientation: awake, alert, oriented to person, oriented to place andoriented to time Speech: speech normal Psych Appearance: grossly normal and appropriate Attitude: calm Activity / Motor Behavior: appropriate eye contact Speech: normal speech Mood & Affect: euthymic mood Thought Process: normal thought process Thought Content: normal thought content Attention / Concentration: attention grossly intact Debridement Note Debridement Note Wound debrided: Traumatic avulsion injury of the left medial calf Laterality: Left Type of Debridement: Excisional debridement Anesthesia Used: 5% Lidocaine Gel and Cetacaine Depth: Down to and including healthy tissue and in the subcutaneous layer Percentage of wound debrided: 100 Instrument Used: 5mm curette Tissue Removed: Nonviable tissue and bioburden Severity: Fat Layer Exposed Amount of bleeding with debridement: Mild Bleeding Controlled with: Compression and gauze Patient tolerated procedure: Patient tolerated procedure well Post-Debridement Measurements and Additional Note: Post-Debridement Measurements/Treatment - Nurse 1 - General Ulcer Assessment Start: 02/09/25 13:13 Freq: Status: Active Protocol: NATHALIE Activity Type Activity Date Activity User E-sign Co-sign Detail Recorded Client Recorded Date Recorded By Document 02/09/25 13:13 KW [id number] 02/09/25 13:18 KW Document 02/16/25 13:06 KW [id number] 02/16/25 13:16 KW Document 02/23/25 13:26 ML [id number] 02/23/25 13:36 ML 02/09/25 02/16/25 02/23/25 13:13 13:06 13:26 - Today's Visit Information Type of service Follow-up Visit Follow-up Visit Follow-up Visit (Physician/DEALERSHIP MANAGER (Physician/DEALERSHIP MANAGER (Physician/DEALERSHIP MANAGER ) ) ) Arrival Mode Ambulatory,Cane Ambulatory,Cane Ambulatory Patient Identification Verified (Name & Yes Yes Yes ) Patient Requires Transmission-Based No Precautions Height and Weight Body Mass Index (BMI) 19.5 19.5 19.5 BMI Classification Normal Normal Normal Vital Signs Temperature (97.8 F-99.1 F) 97.4 F L 97.2 F L 97.2 F L Temperature Source Temporal Temporal Temporal Pulse Rate (60-100) 96 85 84 Pulse Location Monitor Monitor Monitor Respiratory Rate (12-18) 18 16 14 Respiratory rate source Observation Observation Observation Oxygen Delivery Method Room Air Room Air Blood Pressure (90/60-120/80) 106/53 L 115/64 96/76 Blood Pressure Mean 70 81 82 Source Monitor Monitor Monitor Position Semi-Fowlers Semi-Fowlers Supine Blood Pressure Location Left Arm Right Arm Left Arm History Since Last Visit- (Skip if this is Patient's initial visit) Have you changed medications since your No No No last visit? Any new allergies or adverse reactions No No No Had a fall/change in ADL's that may No No No increase risk of falls Signs or symptoms of abuse and/or No No No neglect since last visit Have you been in the hospital since your No No No last visit? Has dressing in place as prescribed Yes Yes Yes Has compression in place as prescribed Yes Yes N/A Has offloadiing in place as prescribed N/A N/A N/A Experienced any changes in pain level or No No No management Left Footwear Regular Shoe Regular Shoe Right Footwear Regular Shoe Regular Shoe Pain Scale: 0-10 Numeric Is Patient Pain Free? Yes Yes Yes WC - Nurse 1 - General Ulcer Measurement Start: 02/09/25 13:13 Freq: Status: Active Protocol: Activity Type Activity Date Activity User E-sign Co-sign Detail Recorded Client Recorded Date Recorded By Document 02/09/25 13:13 KW [id number] 02/09/25 13:18 KW Document 02/16/25 13:06 KW [id number] 02/16/25 13:16 KW Document 02/23/25 13:26 ML [id number] 02/23/25 13:36 ML 02/09/25 02/16/25 02/23/25 13:13 13:06 13:26 Wound Center Nurse 1 #1 LT MED LE -Current Size (cm) - Length 2.2 1.5 1 -Current Size (cm) - Width 2.5 2 1 -Current Size (cm) - Depth 0.1 0.1 0.1 -Total Square Cm 5.50 3.0 1 -Date of Last Picture (Recall this 02/09/25 02/16/25 field) -Exudate Amt Medium Medium Small -Exudate Type Serosanguineous Serosanguineous Serosanguineous -Wound Margin Distinct, Distinct, Outline Outline Attached Attached -Granulation Amt Medium (34-66%) Large (67-100%) -Granulation Quality [place] -Slough/Fibrin Yes -Necrosis Amt Medium (34-66%) Medium (34-66%) None Present (0 %) -Necrotic Tissue Type Adherent Slough Adherent Slough Adherent Slough -Texture (Maylin-wound Skin Appearance) Assessed Assessed Assessed -Moisture (Maylin-wound Skin Appearance) Assessed Assessed Assessed -Color (Maylin-wound Skin Appearance) Assessed, Assessed, Assessed Erythema Erythema -Temperature (Maylin-wound Skin No Abnormality No Abnormality No Abnormality Appearance) (Pt Warm) (Pt Warm) (Pt Warm) -Tenderness on Palpation (Maylin-wound No No No Skin Appearance) -Ulcer Cleansing Rinsed/ Rinsed/ Rinsed/ Irrigated with Irrigated with Irrigated with Saline Saline Saline -Foul Odor after Cleansing No No No -Anesthetic Used 5% Lidocaine 5% Lidocaine 5% Lidocaine Gel Gel Gel WC - Nurse 2 - General Ulcer CM Notes Start: 02/09/25 13:13 Freq: Status: Active Protocol: Activity Type Activity Date Activity User E-sign Co-sign Detail Recorded Client Recorded Date Recorded By Document 02/09/25 13:24 [id number] 02/09/25 13:28 DS Document 02/16/25 13:33 DS [id number] 02/16/25 13:36 DS Document 02/23/25 13:47 [id number] 02/23/25 13:50 DS 02/09/25 02/16/25 02/23/25 13:24 13:33 13:47 Wound Center Nurse 2 #1 LT MED LE -Time 13:24 13:33 13:47 -Correct Patient Yes Yes Yes -Correct Side, Site, Position Yes Yes Yes -Correct Procedure Yes Yes Yes -Procedure Performed Yes Yes Yes -Type of Procedure Debridement Debridement Debridement -Clinical Debridement Subcutaneous Subcutaneous Subcutaneous -Tissue Removed Subcutaneous Subcutaneous Subcutaneous -Post Debridement (cm) - Length 1.5 1.5 1.5 -Post Debridement (cm) - Width 1.5 1.8 1.5 -Post Debridement (cm) - Depth 0.1 0.1 0.1 -Total Square (Post) (cm) 2.25 2.70 2.25 -Area of Debridement (cm) - Length 1.5 1.5 1.5 -Area of Debridement (cm) - Width 1.5 1.8 1.5 -Total Square (Area) (cm) 2.25 2.70 2.25 -Tunneling No No No -Undermining/Tunneling No No No -Circular Undermining No No No -Wound/Ulcer Outcome Not Healed Not Healed Not Healed -Ulcer Cleansing Rinsed/ Rinsed/ Rinsed/ Irrigated with Irrigated with Irrigated with Saline Saline Saline -Foul Odor after Cleansing No No No -Bioengineered Tissue No No No -Bleeding Controlled with Pressure Pressure Pressure -Treatment Response Procedure Procedure Procedure Tolerated Well Tolerated Well Tolerated Well -Debridement - Subq, 1st 20sq cm Yes Yes Yes Pain Scale: 0-10 Numeric Is Patient Pain Free? Yes Yes Yes - Nurse 3 - General Ulcer D/C NN Start: 02/09/25 13:13 Freq: Status: Active Protocol: Activity Type Activity Date Activity User E-sign Co-sign Detail Recorded Client Recorded Date Recorded By Document 02/09/25 13:32 KW [id number] 02/09/25 13:33 KW Document 02/16/25 13:46 KW [id number] 02/16/25 13:46 KW Document 02/23/25 13:57 ML [id number] 02/23/25 13:58 ML 02/09/25 02/16/25 02/23/25 13:32 13:46 13:57 Wound Care Center Nurse 3 #1 LT MED LE -Ulcer Cleansing Rinsed/ Irrigated with Saline -Primary Dressing Applied Aquacel Extra Aquacel Extra Aquacel Extra -Other Dressing JOHN -Primary Dressing Covered/Secured with Dry Gauze & Dry Gauze & Dry Gauze & Roll Gauze, Roll Gauze, Roll Gauze, Secured with Secured with Secured with Tape Tape Tape -Aquacel Extra 1 1 1 LLE -Compression Wrap John Wrap John Wrap -Other 4in Pain Scale: 0-10 Numeric Is Patient Pain Free? Yes Yes Yes - Visit Discharge Discharge Condition Stable Stable Ambulatory Status Ambulatory,Cane Ambulatory,Cane Transportation Private Auto Private Auto Medication Reconcilliation completed & No No provided to patient/care provider Clinical Summary of Care Provided Yes Yes Charges/Coding Procedures Integumentary [id number]: [id number] Esha subq tissue 20 sq cm/< Assessment/Plan Assessment/Plan (1) Non-pressure chronic ulcer of left calf with fat layer exposed: CODE(S): L97.222 - Non-pressure chronic ulcer of left calf with fat layer exposed (2) Traumatic open wound of lower leg: CODE(S): S81.809A - Unspecified open wound, unspecified lower leg, initialencounter QUALIFIERS: Encounter type: subsequent encounter Laterality: left Qualified Code(s): S81.802D - Unspecified open wound, left lower leg, subsequent encounter (3) Avulsion injury: CODE(S): T14.8XXA - Other injury of unspecified body region, initial encounter (4) S/P ORIF (open reduction internal fixation) fracture: CODE(S): Z96.7 - Presence of other bone and tendon implants; Z87.81 - Personal history of (healed) traumatic fracture (5) S/P ORIF (open reduction internal fixation) fracture: CODE(S): Z98.890 - Other specified postprocedural states; Z87.81 - Personal history of (healed) traumatic fracture (6) History of surgery on wrist: CODE(S): Z98.890 - Other specified postprocedural states (7) History of cataract surgery: CODE(S): Z98.49 - Cataract extraction status, unspecified eye (8) History of ankle surgery: CODE(S): Z98.890 - Other specified postprocedural states (9) Hypothyroidism: CODE(S): E03.9 - Hypothyroidism, unspecified QUALIFIERS: Hypothyroidism type: acquired Qualified Code(s): E03.9 - Hypothyroidism, unspecified (10) Raynaud phenomenon: CODE(S): I73.00 - Raynaud's syndrome without gangrene QUALIFIERS: Raynaud?s-associated gangrene presence: without gangrene Qualified Code(s): I73.00 - Raynaud's syndrome without gangrene (11) Osteoporosis: CODE(S): M81.0 - Age-related osteoporosis without current pathological fracture (12) Eckh-crxq-sxnjegqbhjvuucf: 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 The injury occurred when thepatient's dog traumatized her leg with its nails. Immediately following her injury, the patient presented to the [facility] Emergency Department, where the avulsion flap was repositioned and sutured in place. The central portion of the traumatic flap has now necrosed, and is no longer viable. This portion of the wound has been debrided in the Wound Center today. It is afull-thickness ulceration, extending down into the subcutaneous tissues. There has been recent improvement, with a decrease in the size of the patient's wound. We are to continue the use of Aquacel Extra topically, which will be moistened at the time ofapplication. The patient has been instructed in the appropriate means of application. Mild compression is to be applied by means of an John wrap, which will be applied on a daily basis. The patient has been counseled toelevate her lower extremities as much as possible, to remain active, and to avoid prolonged, idle sitting. She is to return in 1 week for reassessment. The patient has been advised to optimize her nutritional intake, and is using Huy as a supplement. Total time: 24 minutes 02/24/25 1123 Cosigner Signature (if applicable): CC: ~ Signed [facility]06-11-2025 History and physical note Author Cedric Gibbons [facility] Note Date/Time February 17, 2025 11:3 5am [facility] [address] [place] [id number] H&P Exam - Wound Care 02/17/25 1127 MR#: [id number] Acct: [id number] Name: GERALDINE HAIRSTON Rep #:[id number] : 1950 74 From: Cedric Worthington PCP: Dr. Chance Kolb MD Status:RE Leroy R Location: History of Present Illness Date of Service: 02/16/25 Chief Complaint: Traumatic avulsion injury of the left medial calf History of Wound: This is a 74-year-old female who sustained a traumatic injury to her left medial calf on January 01, 2025. At the time of her injury, she presented to the [facility] Emergency Department, where she was found to have an avulsion injury with a significant adherent cutaneous flap. The injury was caused by the nails of her dog, who had jumped off the couch. Inthe Emergency Department, the flap was sutured in place using seven 5-0 nylon sutures. The patient was placed on Keflex and Augmentin orally, and was discharged. The patient is generally healthy for her age, though has a history of hrdq-pixu-edrubaodpnjvhod, GERD, hypertension, hypothyroidism, and osteoporosis. She denies a history of diabetes mellitus, myocardial infarction,cerebrovascular accident, renal disease, and pulmonary disease. Her BMI is 19.5. She is . [facility] Medical History Non-pressure chronic ulcer of left calf with fat layer exposed Traumatic open wound of lower leg Avulsion injury GERD (gastroesophageal reflux disease) HTN (hypertension) Hypothyroidism Depression Anxiety Home Medications ?Medication ?Instructions ?Recorded ?Last Taken ?Type levothyroxine 25 mcg tablet 25 mcg PO DAILY Check with primary 02/07/15 09/29/16 09:00 History doctor Bacillus coagulans-inulin 1 1 ea PO DAILY Check with p skye 12/07/15 09/29/16 09:00 History billion cell-250 mg capsule doctor (Probiotic Formula (inulin)) gabapentin 100 mg capsule 600 mg PO BID Check with loretta mcmillan 12/07/15 09/29/16 21:00 History doctor nifedipine 60 mg tablet,extended 180 mg PO DAILY Check with primary 12/07/15 0 09/29/16 09:00 History release 24 hr doctor pantoprazole 20 mg tablet,delayed 20 mg PO DAILY [facility] 12/07/15 09/29/16 09:00 History release paroxetine HCl 25 mg 75 mg PO DAILY depression 09/29/16 09:00 History tablet,extended release 24 hr (Paxil CR) aspirin 325 mg tablet,delayed 325 mg PO DAILY HEART 09/29/16 09:00 History release buspirone 5 mg tablet 30 mg PO BID Check with prim lesley 04/26/16 09/29/16 21:00 History doctor budesonide 3 mg 9 mg PO DAILY Check with loretta mcmillan 09/30/16 Unknown History capsule,delayed,extended release doctor (Entocort EC) lorazepam 0.5 mg tablet 0.5 mg PO Q6H PRN PRN Anxiet y ##10 10/03/16 Unknown Rx dicyclomine 20 mg tablet 20 mg PO TID Check with prim lesley 09/02/22 Unknown History doctor Metamucil Check with primary doctor Unknown History food supplemt, lactose-reduced 120 ml PO 4X/DAY Check with 09/07/22 Unknown History 0.08 gram-1.5 kcal/mL oral liquid primary doctor (Ensure Enlive) loperamide 2 mg tablet 2 mg PO Q6H PRN Constipation 09/07/22 Unknown History omeprazole 40 mg PO/SL DAILY Check with 09/07/22 Unknown History primary doctor atorvastatin 80 mg tablet 20 mg (1/4 x 80 mg) PO QHS # 30 tabs 09/08/22 Unknown Rx cephalexin 500 mg capsule 500 mg PO BID #12 caps 09/08 Unknown Rx amoxicillin 875 mg-potassium 875 mg (0.875 x 875-125 m g) PO 04/29/23 Unknown Rx clavulanate 125 mg tablet Q12H #10 TABLETS Allergy/AdvReac Type Severity Reaction Status Date / Time acetaminophen (From Percocet) Allergy Other Verified 01/06/25 14:05 oxycodone (From Percocet) Allergy Other Verified 01/06/25 14:05 codeine AdvReac Nausea & Verified 01/06/25 14:05 dizziness oxycodone HCl (From Percocet) AdvReac Nausea & Verified 01/06/25 14:05 dizziness Family History Father Diabetes Dementia Surgical History S/P ORIF (open reduction internal fixation) fracture History of surgery on wrist History of cataract surgery History of ankle surgery Social History household members: none Smoking Status: Never smoker substance use type: does not use Vital Signs Vital Signs Vital Signs: 02/16/25 13:06 Temperature 97.2 F L Temperature Source Temporal Pulse Rate 85 Respiratory Rate 16 Blood Pressure 115/64 Blood Pressure Mean 81 Blood Pressure Source Monitor Blood Pressure Position Semi-Fowlers Blood Pressure Location Right Arm Oxygen Delivery Method Room Air Weight Weight: 95 lb Body Mass Index (BMI) 19.5 Physical Exam Const alert, oriented x3, no apparent distress, average body habitus and well nourished Constitutional Narrative: The patient's BMI is 19.5. General Appearance: cooperative, comfortable, well kempt and well developed Orientation / Consciousness: awake, oriented to person, oriented to place and oriented to time Exam Limitations: no limitations HEENT normocephalic and head/scalp atraumatic Head and Scalp: normal to inspection, normocephalic and atraumatic Face and Sinus: normal facial exam Nose: external nose normal External Ear: external ears normal Eyes EOMs intact bilaterally General Eye: normal appearance of both eyes Neck full ROM Resp normal respiratory effort, normal air movement, no retractions and no use of accessory muscles Effort and Inspection: able to speak in complete sentences Extremity no calf tenderness General Extremity: Negative for clubbing or cyanosis Skin Wound Narrative: A traumatic wound is noted on the patient's left medial calf. It is an avulsioninjury, with a resultant flap of skin. At the time of the patient's Emergency Department visit, the flap was repositioned, and sutured in place using seven 5- 0 nylon sutures. The sutures have been removed during previous visits. At thistime, it is evident that a large portion of the avulsion flap, which had been repositioned and sutured in place, has necrosed and is no longer viable. The nonviable portion of the wound is located centrally. The wound demonstrates yellowish, nonviable material, though healthy granulation tissue is noted beneath. Peripherally, there appears to be evidence of epithelialization and healing. A small portion of the flap has survived and remains viable. The existing wound extends through all layers of the dermis and into the subcutaneous tissues. There is no sign of infection or cellulitis. No significant swelling or edema are noted. Dimensions are documented elsewhere. Wound margins are well beveled. Neuro oriented x3, CN's II-XII intact bilaterally, moves all extremities, no focal motor deficits and no sensory deficits noted Sensorium / Orientation: awake, alert, oriented to person, oriented to place andoriented to time Psych Appearance: grossly normal and appropriate Attitude: calm Activity / Motor Behavior: appropriate eye contact Speech: normal speech Mood & Affect: euthymic mood Thought Process: normal thought process Thought Content: normal thought content Attention / Concentration: attention grossly intact Debridement Note Debridement Note Wound debrided: Traumatic avulsion injury of the left medial calf Laterality: Left Type of Debridement: Excisional debridement Anesthesia Used: 5% Lidocaine Gel and Cetacaine Depth: Down to and including healthy tissue and in the subcutaneous layer Percentage of wound debrided: 100 Instrument Used: 5mm curette Tissue Removed: Necrotic and nonviable tissue; bioburden Severity: Fat Layer Exposed Amount of bleeding with debridement: Mild Bleeding Controlled with: Compression and gauze Patient tolerated procedure: Patient tolerated procedure well Post-Debridement Measurements and Additional Note: Post-Debridement Measurements/Treatment - Nurse 1 - General Ulcer Assessment Start: 02/09/25 13:13 Freq: Status: Active Protocol: NATHALIE Activity Type Activity Date Activity User E-sign Co-sign Detail Recorded Client Recorded Date Recorded By Document 02/09/25 13:13 [id number] 02/09/25 13:18 KW Document 02/16/25 13:06 [id number] 02/16/25 13:16 KW 02/09/25 02/16/25 13:13 13:06 - Today's Visit Information Type of service Follow-up Visit Follow-up Visit (Physician/DEALERSHIP MANAGER (Physician/DEALERSHIP MANAGER ) ) Arrival Mode Ambulatory,Cane Ambulatory,Cane Patient Identification Verified (Name & Yes Yes ) Height and Weight Body Mass Index (BMI) 19.5 19.5 BMI Classification Normal Normal Vital Signs Temperature (97.8 F-99.1 F) 97.4 F L 97.2 F L Temperature Source Temporal Temporal Pulse Rate (60-100) 96 85 Pulse Location Monitor Monitor Respiratory Rate (12-18) 18 16 Respiratory rate source Observation Observation Oxygen Delivery Method Room Air Room Air Blood Pressure (90/60-120/80) 106/53 L 115/64 Blood Pressure Mean 70 81 Source Monitor Monitor Position Semi-Fowlers Semi-Fowlers Blood Pressure Location Left Arm Right Arm History Since Last Visit- (Skip if this is Patient's initial visit) Have you changed medications since your No No last visit? Any new allergies or adverse reactions No No Had a fall/change in ADL's that may No No increase risk of falls Signs or symptoms of abuse and/or No No neglect since last visit Have you been in the hospital since your No No last visit? Has dressing in place as prescribed Yes Yes Has compression in place as prescribed Yes Yes Has offloadiing in place as prescribed N/A N/A Experienced any changes in pain level or No No management Left Footwear Regular Shoe Regular Shoe Right Footwear Regular Shoe Regular Shoe Pain Scale: 0-10 Numeric Is Patient Pain Free? Yes Yes WC - Nurse 1 - General Ulcer Measurement Start: 02/09/25 13:13 Freq: Status: Active Protocol: Activity Type Activity Date Activity User E-sign Co-sign Detail Recorded Client Recorded Date Recorded By Document 02/09/25 13:13 KW [id number] 02/09/25 13:18 KW Document 02/16/25 13:06 [id number] 02/16/25 13:16 KW 02/09/25 02/16/25 13:13 13:06 Wound Center Nurse 1 #1 LT MED LE -Current Size (cm) - Length 2.2 1.5 -Current Size (cm) - Width 2.5 2 -Current Size (cm) - Depth 0.1 0.1 -Total Square Cm 5.50 3.0 -Date of Last Picture (Recall this 02/09/25 02/16/25 field) -Exudate Amt Medium Medium -Exudate Type Serosanguineous Serosanguineous -Wound Margin Distinct, Distinct, Outline Outline Attached Attached -Granulation Amt Medium (34-66%) Large (67-100%) -Granulation Quality [place] -Necrosis Amt Medium (34-66%) Medium (34-66%) -Necrotic Tissue Type Adherent Slough Adherent Slough -Texture (Maylin-wound Skin Appearance) Assessed Assessed -Moisture (Maylin-wound Skin Appearance) Assessed Assessed -Color (Maylin-wound Skin Appearance) Assessed, Assessed, Erythema Erythema -Temperature (Maylin-wound Skin No Abnormality No Abnormality Appearance) (Pt Warm) (Pt Warm) -Tenderness on Palpation (Maylin-wound No No Skin Appearance) -Ulcer Cleansing Rinsed/ Rinsed/ Irrigated with Irrigated with Saline Saline -Foul Odor after Cleansing No No -Anesthetic Used 5% Lidocaine 5% Lidocaine Gel Gel WC - Nurse 2 - General Ulcer CM Notes Start: 02/09/25 13:13 Freq: Status: Active Protocol: Activity Type Activity Date Activity User E-sign Co-sign Detail Recorded Client Recorded Date Recorded By Document 02/09/25 13:24 DS [id number] 02/09/25 13:28 DS Document 02/16/25 13:33 DS [id number] 02/16/25 13:36 DS 02/09/25 02/16/25 13:24 13:33 Wound Center Nurse 2 #1 LT MED LE -Time 13:24 13:33 -Correct Patient Yes Yes -Correct Side, Site, Position Yes Yes -Correct Procedure Yes Yes -Procedure Performed Yes Yes -Type of Procedure Debridement Debridement -Clinical Debridement Subcutaneous Subcutaneous -Tissue Removed Subcutaneous Subcutaneous -Post Debridement (cm) - Length 1.5 1.5 -Post Debridement (cm) - Width 1.5 1.8 -Post Debridement (cm) - Depth 0.1 0.1 -Total Square (Post) (cm) 2.25 2.70 -Area of Debridement (cm) - Length 1.5 1.5 -Area of Debridement (cm) - Width 1.5 1.8 -Total Square (Area) (cm) 2.25 2.70 -Tunneling No No -Undermining/Tunneling No No -Circular Undermining No No -Wound/Ulcer Outcome Not Healed Not Healed -Ulcer Cleansing Rinsed/ Rinsed/ Irrigated with Irrigated with Saline Saline -Foul Odor after Cleansing No No -Bioengineered Tissue No No -Bleeding Controlled with Pressure Pressure -Treatment Response Procedure Procedure Tolerated Well Tolerated Well -Debridement - Subq, 1st 20sq cm Yes Yes Pain Scale: 0-10 Numeric Is Patient Pain Free? Yes Yes WC - Nurse 3 - General Ulcer D/C NN Start: 02/09/25 13:13 Freq: Status: Active Protocol: Activity Type Activity Date Activity User E-sign Co-sign Detail Recorded Client Recorded Date Recorded By Document 02/09/25 13:32 KW [id number] 02/09/25 13:33 KW Document 02/16/25 13:46 KW [id number] 02/16/25 13:46 KW 02/09/25 02/16/25 13:32 13:46 Wound Care Center Nurse 3 #1 LT MED LE -Primary Dressing Applied Aquacel Extra Aquacel Extra -Primary Dressing Covered/Secured with Dry Gauze & Dry Gauze & Roll Gauze, Roll Gauze, Secured with Secured with Tape Tape -Aquacel Extra 1 1 LLE -Compression Wrap John Wrap John Wrap -Other 4in Pain Scale: 0-10 Numeric Is Patient Pain Free? Yes Yes WC - Visit Discharge Discharge Condition Stable Stable Ambulatory Status Ambulatory,Cane Ambulatory,Cane Transportation Private Auto Private Auto Medication Reconcilliation completed & No No provided to patient/care provider Clinical Summary of Care Provided Yes Yes Charges/Coding Procedures Integumentary 111xxx-113xx: 18260 Esha subq tissue 20 sq cm/< Assessment/Plan Assessment/Plan (1) Non-pressure chronic ulcer of left calf with fat layer exposed: CODE(S): L97.222 - Non-pressure chronic ulcer of left calf with fat layer exposed (2) Traumatic open wound of lower leg: CODE(S): S81.809A - Unspecified open wound, unspecified lower leg, initialencounter QUALIFIERS: Encounter type: subsequent encounter Laterality: left Qualified Code(s): S81.802D - Unspecified open wound, left lower leg, subsequent encounter (3) Avulsion injury: CODE(S): T14.8XXA - Other injury of unspecified body region, initial encounter (4) S/P ORIF (open reduction internal fixation) fracture: CODE(S): Z96.7 - Presence of other bone and tendon implants; Z87.81 - Personal history of (healed) traumatic fracture (5) S/P ORIF (open reduction internal fixation) fracture: CODE(S): Z98.890 - Other specified postprocedural states; Z87.81 - Personal history of (healed) traumatic fracture (6) History of surgery on wrist: CODE(S): Z98.890 - Other specified postprocedural states (7) History of cataract surgery: CODE(S): Z98.49 - Cataract extraction status, unspecified eye (8) History of ankle surgery: CODE(S): Z98.890 - Other specified postprocedural states (9) Hypothyroidism: CODE(S): E03.9 - Hypothyroidism, unspecified QUALIFIERS: Hypothyroidism type: acquired Qualified Code(s): E03.9 - Hypothyroidism, unspecified (10) Raynaud phenomenon: CODE(S): I73.00 - Raynaud's syndrome without gangrene QUALIFIERS: Raynaud?s-associated gangrene presence: without gangrene Qualified Code(s): I73.00 - Raynaud's syndrome without gangrene (11) Osteoporosis: CODE(S): M81.0 - Age-related osteoporosis without current pathological fracture (12) Vckc-mfac-ldoigckctgjgtqj: 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 The injury occurred when thepatient's dog traumatized her leg with its nails. Immediately following her injury, the patient presented to the [facility] Emergency Department, where the avulsion flap was repositioned and sutured in place. The central portion of the traumatic flap has now necrosed, and is no longer viable. This portion of the wound has been debrided in the Wound Center today. It is afull-thickness ulceration, extending down into the subcutaneous tissues. We areto continue the use of Aquacel Extra topically, which will be moistened at the time of application. The patient has been instructed in the appropriate means of application. Mild compression is to be applied by means of an John wrap, which will be applied on a daily basis. The patient has been counseled to elevate her lower extremities is much as possible, to remain active, and to avoid prolonged, idle sitting. She is to return in 1 week for reassessment. The patient has been advised to optimize her nutritional intake, and is using Huy as a supplement. Total time: 25 minutes 02/17/25 1135 <Electronically signed by Cedric Gibbons MD> Cosigner Signature (if applicable): CC: ~ Signed [facility] Work Phone: [phone] 829-169906-11-2025 History and physical note [facility] [address] [place] [address] H&P Exam - Wound Care 02/17/25 1127 MR#: [id number] Acct: [id number] Name: GERALDINE HAIRSTON Rep #:[id number] 13 : 1950 74 From: Cedric Worthington PCP: Dr. Chance Kolb MD Status:RE G R Location: History of Present Illness Date of Service: 02/16/25 Chief Complaint: Traumatic avulsion injury of the left medial calf History of Wound: This is a 74-year-old female who sustained a traumatic injury to her left medial calf on January 01, 2025. At the time of her injury, she presented to the [facility] Emergency Department, where she was found to have an avulsion injury with a significant adherent cutaneous flap. The injury was caused by the nails of her dog, who had jumped off the couch. Inthe Emergency Department, the flap was sutured in place using seven 5-0 nylon sutures. The patient was placedon Keflex and Augmentin orally, and was discharged. The patient is generally healthy for her age, though has a history of qwfy-piuf-ewlrjchtnqaoskj, GERD, hypertension, hypothyroidism, and osteoporosis. She denies a history of diabetes mellitus, myocardial infarction,cerebrovascular accident, renaldisease, and pulmonary disease. Her BMI is 19.5. She is . [facility] Medical History Non-pressure chronic ulcer of left calf with fat layer exposed Traumatic open wound of lower leg Avulsion injury GERD (gastroesophageal reflux disease) HTN (hypertension) Hypothyroidism Depression Anxiety Home Medications ?Medication ?Instructions ?Recorded ?Last Taken ?Type levothyroxine 25 mcg tablet 25 mcg PO DAILY Check with primary 02/07/15 09/29/16 09:00 History doctor Bacillus coagulans-inulin 1 1 ea PO DAILY Check with jesus cheung 12/07/15 09/29/16 09:00 History billion cell-250 mg capsule doctor (Probiotic Formula (inulin)) gabapentin 100 mg capsule 600 mg PO BID Check with loretta mcmillan 12/07/15 09/29/16 21:00 History doctor nifedipine 60 mg tablet,extended 180 mg PO DAILY Check with primary 12/07/15 0 09/29/16 09:00 History release 24 hr doctor pantoprazole 20 mg tablet,delayed 20 mg PO DAILY [facility] 12/07/15 09/29/16 09:00 History release paroxetine HCl 25 mg 75 mg PO DAILY depression 09/29/16 09:00 History tablet,extended release 24 hr (Paxil CR) aspirin 325 mg tablet,delayed 325 mg PO DAILY HEART 09/29/16 09:00 History release buspirone 5 mg tablet 30 mg PO BID Check with prim lesley 04/26/16 09/29/16 21:00 History doctor budesonide 3 mg 9 mg PO DAILY Check with loretta deyanira 09/30/16 Unknown History capsule,delayed,extended release doctor (Entocort EC) lorazepam 0.5 mg tablet 0.5 mg PO Q6H PRN PRN Anxiet y ##10 10/03/16 Unknown Rx dicyclomine 20 mg tablet 20 mg PO TID Check with prim lesley 09/02/22 Unknown History doctor Metamucil Check with primary doctor Unknown History food supplemt, lactose-reduced 120 ml PO 4X/DAY Check with 09/07/22 Unknown History 0.08 gram-1.5 kcal/mL oral liquid primary doctor (Ensure Enlive) loperamide 2 mg tablet 2 mg PO Q6H PRN Constipation 09/07/22 Unknown History omeprazole 40 mg PO/SL DAILY Check with 09/07/22 Unknown History primary doctor atorvastatin 80 mg tablet 20 mg (1/4 x 80 mg) PO QHS # 30 tabs 09/08/22 Unknown Rx cephalexin 500 mg capsule 500 mg PO BID #12 caps 09/08 Unknown Rx amoxicillin 875 mg-potassium 875 mg (0.875 x 875-125 m g) PO 04/29/23 Unknown Rx clavulanate 125 mg tablet Q12H #10 TABLETS Allergy/AdvReac Type Severity Reaction Status Date / Time acetaminophen (From Percocet) Allergy Other Verified 01/06/25 14:05 oxycodone (From Percocet) Allergy Other Verified 01/06/25 14:05 codeine AdvReac Nausea & Verified 01/06/25 14:05 dizziness oxycodone HCl (From Percocet) AdvReac Nausea & Verified 01/06/25 14:05 dizziness Family History Father Diabetes Dementia Surgical History S/P ORIF (open reduction internal fixation) fracture History of surgery on wrist History of cataract surgery History of ankle surgery Social History household members: none Smoking Status: Never smoker substance use type: does not use Vital Signs Vital Signs Vital Signs: 02/16/25 13:06 Temperature 97.2 F L Temperature Source Temporal Pulse Rate 85 Respiratory Rate 16 Blood Pressure 115/64 Blood Pressure Mean 81 Blood Pressure Source Monitor Blood Pressure Position Semi-Fowlers Blood Pressure Location Right Arm Oxygen Delivery Method Room Air Weight Weight: 95 lb Body Mass Index (BMI) 19.5 Physical Exam Const alert, oriented x3, no apparent distress, average body habitus and well nourished Constitutional Narrative: The patient's BMI is 19.5. General Appearance: cooperative, comfortable, well kempt and well developed Orientation / Consciousness: awake, oriented to person, oriented to place and oriented to time Exam Limitations: no limitations HEENT normocephalic and head/scalp atraumatic Head and Scalp: normal to inspection, normocephalic and atraumatic Face and Sinus: normal facial exam Nose: external nose normal External Ear: external ears normal Eyes EOMs intact bilaterally General Eye: normal appearance of both eyes Neck full ROM Resp normal respiratory effort, normal air movement, no retractions and no use of accessory muscles Effort and Inspection: able to speak in complete sentences Extremity no calf tenderness General Extremity: Negative for clubbing or cyanosis Skin Wound Narrative: A traumatic wound is noted on the patient's left medial calf. It is an avulsioninjury, with a resultant flap of skin. At the time of the patient's Emergency Department visit, the flap was repositioned, and sutured in place using seven 5-0 nylon sutures. The sutures have been removed during previous visits. At thistime, it is evident that a large portion of the avulsion flap, which had been repositioned and sutured in place, has necrosed and is no longer viable. The nonviable portion of the wound is located centrally. The wound demonstrates yellowish, nonviable material, though healthy granulation tissue is noted beneath. Peripherally, there appears to be evidence of epithelialization and healing. A small portion of the flap has survived and remains viable. The existing wound extends through all layers of the dermis and into the subcutaneous tissues. There is no sign of infection or cellulitis. No significant swelling or edema are noted. Dimensions are documented elsewhere. Wound margins are well beveled. Neuro oriented x3, CN's II-XII intact bilaterally, moves all extremities, no focal motor deficits and no sensory deficits noted Sensorium / Orientation: awake, alert, oriented to person, oriented to place andoriented to time Psych Appearance: grossly normal and appropriate Attitude: calm Activity / Motor Behavior: appropriate eye contact Speech: normal speech Mood & Affect: euthymic mood Thought Process: normal thought process Thought Content: normal thought content Attention / Concentration: attention grossly intact Debridement Note Debridement Note Wound debrided: Traumatic avulsion injury of the left medial calf Laterality: Left Type of Debridement: Excisional debridement Anesthesia Used: 5% Lidocaine Gel and Cetacaine Depth: Down to and including healthy tissue and in the subcutaneous layer Percentage of wound debrided: 100 Instrument Used: 5mm curette Tissue Removed: Necrotic and nonviable tissue; bioburden Severity: Fat Layer Exposed Amount of bleeding with debridement: Mild Bleeding Controlled with: Compression and gauze Patient tolerated procedure: Patient tolerated procedure well Post-Debridement Measurements and Additional Note: Post-Debridement Measurements/Treatment - Nurse 1 - General Ulcer Assessment Start: 02/09/25 13:13 Freq: Status: Active Protocol: DANTE[employer]uro [employer]MARYLOU Activity Type Activity Date Activity User E-sign Co-sign Detail Recorded Client Recorded Date Recorded By Document 02/09/25 13:13 Metaresolver [id number] 02/09/25 13:18 Document 02/16/25 13:06 Metaresolver [id number] 02/16/25 13:16 KW 02/09/25 02/16/25 13:13 13:06 - Today's Visit Information Type of service Follow-up Visit Follow-up Visit (Physician/DEALERSHIP MANAGER (Physician/DEALERSHIP MANAGER ) ) Arrival Mode Ambulatory,Cane Ambulatory,Cane Patient Identification Verified (Name & Yes Yes ) Height and Weight Body Mass Index (BMI) 19.5 19.5 BMI Classification Normal Normal Vital Signs Temperature (97.8 F-99.1 F) 97.4 F L 97.2 F L Temperature Source Temporal Temporal Pulse Rate (60-100) 96 85 Pulse Location Monitor Monitor Respiratory Rate (12-18) 18 16 Respiratory rate source Observation Observation Oxygen Delivery Method Room Air Room Air Blood Pressure (90/60-120/80) 106/53 L 115/64 Blood Pressure Mean 70 81 Source Monitor Monitor Position Semi-Fowlers Semi-Fowlers Blood Pressure Location Left Arm Right Arm History Since Last Visit- (Skip if this is Patient's initial visit) Have you changed medications since your No No last visit? Any new allergies or adverse reactions No No Had a fall/change in ADL's that may No No increase risk of falls Signs or symptoms of abuse and/or No No neglect since last visit Have you been in the hospital since your No No last visit? Has dressing in place as prescribed Yes Yes Has compression in place as prescribed Yes Yes Has offloadiing in place as prescribed N/A N/A Experienced any changes in pain level or No No management Left Footwear Regular Shoe Regular Shoe Right Footwear Regular Shoe Regular Shoe Pain Scale: 0-10 Numeric Is Patient Pain Free? Yes Yes - Nurse 1 - General Ulcer Measurement Start: 02/09/25 13:13 Freq: Status: Active Protocol: Activity Type Activity Date Activity User E-sign Co-sign Detail Recorded Client Recorded Date Recorded By Document 02/09/25 13:13 KW [id number] 02/09/25 13:18 KW Document 02/16/25 13:06 KW [id number] 02/16/25 13:16 KW 02/09/25 02/16/25 13:13 13:06 Wound Center Nurse 1 #1 LT MED LE -Current Size (cm) - Length 2.2 1.5 -Current Size (cm) - Width 2.5 2 -Current Size (cm) - Depth 0.1 0.1 -Total Square Cm 5.50 3.0 -Date of Last Picture (Recall this 02/09/25 02/16/25 field) -Exudate Amt Medium Medium -Exudate Type Serosanguineous Serosanguineous -Wound Margin Distinct, Distinct, Outline Outline Attached Attached -Granulation Amt Medium (34-66%) Large (67-100%) -Granulation Quality [place] -Necrosis Amt Medium (34-66%) Medium (34-66%) -Necrotic Tissue Type Adherent Slough Adherent Slough -Texture (Maylin-wound Skin Appearance) Assessed Assessed -Moisture (Maylin-wound Skin Appearance) Assessed Assessed -Color (Maylin-wound Skin Appearance) Assessed, Assessed, Erythema Erythema -Temperature (Maylin-wound Skin No Abnormality No Abnormality Appearance) (Pt Warm) (Pt Warm) -Tenderness on Palpation (Maylin-wound No No Skin Appearance) -Ulcer Cleansing Rinsed/ Rinsed/ Irrigated with Irrigated with Saline Saline -Foul Odor after Cleansing No No -Anesthetic Used 5% Lidocaine 5% Lidocaine Gel Gel WC - Nurse 2 - General Ulcer CM Notes Start: 02/09/25 13:13 Freq: Status: Active Protocol: Activity Type Activity Date Activity User E-sign Co-sign Detail Recorded Client Recorded Date Recorded By Document 02/09/25 13:24 DS [id number] 02/09/25 13:28 DS Document 02/16/25 13:33 DS [id number] 02/16/25 13:36 DS 02/09/25 02/16/25 13:24 13:33 Wound Center Nurse 2 #1 LT MED LE -Time 13:24 13:33 -Correct Patient Yes Yes -Correct Side, Site, Position Yes Yes -Correct Procedure Yes Yes -Procedure Performed Yes Yes -Type of Procedure Debridement Debridement -Clinical Debridement Subcutaneous Subcutaneous -Tissue Removed Subcutaneous Subcutaneous -Post Debridement (cm) - Length 1.5 1.5 -Post Debridement (cm) - Width 1.5 1.8 -Post Debridement (cm) - Depth 0.1 0.1 -Total Square (Post) (cm) 2.25 2.70 -Area of Debridement (cm) - Length 1.5 1.5 -Area of Debridement (cm) - Width 1.5 1.8 -Total Square (Area) (cm) 2.25 2.70 -Tunneling No No -Undermining/Tunneling No No -Circular Undermining No No -Wound/Ulcer Outcome Not Healed Not Healed -Ulcer Cleansing Rinsed/ Rinsed/ Irrigated with Irrigated with Saline Saline -Foul Odor after Cleansing No No -Bioengineered Tissue No No -Bleeding Controlled with Pressure Pressure -Treatment Response Procedure Procedure Tolerated Well Tolerated Well -Debridement - Subq, 1st 20sq cm Yes Yes Pain Scale: 0-10 Numeric Is Patient Pain Free? Yes Yes - Nurse 3 - General Ulcer D/C NN Start: 02/09/25 13:13 Freq: Status: Active Protocol: Activity Type Activity Date Activity User E-sign Co-sign Detail Recorded Client Recorded Date Recorded By Document 02/09/25 13:32 KW [id number] 02/09/25 13:33 KW Document 02/16/25 13:46 KW [id number] 02/16/25 13:46 KW 02/09/25 02/16/25 13:32 13:46 Wound Care Center Nurse 3 #1 LT MED LE -Primary Dressing Applied Aquacel Extra Aquacel Extra -Primary Dressing Covered/Secured with Dry Gauze & Dry Gauze & Roll Gauze, Roll Gauze, Secured with Secured with Tape Tape -Aquacel Extra 1 1 LLE -Compression Wrap John Wrap John Wrap -Other 4in Pain Scale: 0-10 Numeric Is Patient Pain Free? Yes Yes WC - Visit Discharge Discharge Condition Stable Stable Ambulatory Status Ambulatory,Cane Ambulatory,Cane Transportation Private Auto Private Auto Medication Reconcilliation completed & No No provided to patient/care provider Clinical Summary of Care Provided Yes Yes Charges/Coding Procedures Integumentary 111xxx-113xx: 96154 Esha subq tissue 20 sq cm/< Assessment/Plan Assessment/Plan (1) Non-pressure chronic ulcer of left calf with fat layer exposed: CODE(S): L97.222 - Non-pressure chronic ulcer of left calf with fat layer exposed (2) Traumatic open wound of lower leg: CODE(S): S81.809A - Unspecified open wound, unspecified lower leg, initialencounter QUALIFIERS: Encounter type: subsequent encounter Laterality: left Qualified Code(s): S81.802D - Unspecified open wound, left lower leg, subsequent encounter (3) Avulsion injury: CODE(S): T14.8XXA - Other injury of unspecified body region, initial encounter (4) S/P ORIF (open reduction internal fixation) fracture: CODE(S): Z96.7 - Presence of other bone and tendon implants; Z87.81 - Personal history of (healed) traumatic fracture (5) S/P ORIF (open reduction internal fixation) fracture: CODE(S): Z98.890 - Other specified postprocedural states; Z87.81 - Personal history of (healed) traumatic fracture (6) History of surgery on wrist: CODE(S): Z98.890 - Other specified postprocedural states (7) History of cataract surgery: CODE(S): Z98.49 - Cataract extraction status, unspecified eye (8) History of ankle surgery: CODE(S): Z98.890 - Other specified postprocedural states (9) Hypothyroidism: CODE(S): E03.9 - Hypothyroidism, unspecified QUALIFIERS: Hypothyroidism type: acquired Qualified Code(s): E03.9 - Hypothyroidism, unspecified (10) Raynaud phenomenon: CODE(S): I73.00 - Raynaud's syndrome without gangrene QUALIFIERS: Raynaud?s-associated gangrene presence: without gangrene Qualified Code(s): I73.00 - Raynaud's syndrome without gangrene (11) Osteoporosis: CODE(S): M81.0 - Age-related osteoporosis without current pathological fracture (12) Tnny-qplz-ngwgdeiowizvnor: 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 The injury occurred when thepatient's dog traumatized her leg with its nails. Immediately following her injury, the patient presented to the [facility] Emergency Department, where the avulsion flap was repositioned and sutured in place. The central portion of the traumatic flap has now necrosed, and is no longer viable. This portion of the wound has been debrided in the Wound Center today. It is afull-thickness ulceration, extending down into the subcutaneous tissues. We areto continue the use of Aquacel Extra topically, which will be moistened atthe time of application. The patient has been instructed in the appropriate means of application. Mild compression is to be applied by means of an John wrap, which will be applied on a daily basis. The patient has been counseled to elevate her lower extremities is much as possible, to remain active,and to avoid prolonged, idle sitting. She is to return in 1 week for reassessment. The patient has been advised to optimize her nutritional intake, and is using Huy as a supplement. Total time: 25 minutes 02/17/25 1135 Cosigner Signature (if applicable): CC: ~ Signed [facility]06-04-2025 History and physical note Author Cedric Gibbons [facility] Note Date/Time February 10, 2025 10:57 am [facility] [address] [place] [address] H&P Exam - Wound Care 02/10/25 1015 MR#: [id number] Acct: [id number] Name: GERALDINE HAIRSTON Rep #:[id number] 07 : 1950 74 From: Cedric Worthington PCP: Dr. Chance Kolb MD Status:RE G RCR Location: History of Present Illness Date of Service: 02/09/25 Chief Complaint: Traumatic avulsion injury of the left medial calf History of Wound: This is a 74-year-old female who sustained a traumatic injury to her left medial calf on January 01, 2025. At the time of her injury, she presented to the [facility] Emergency Department, where she was found to have an avulsion injury with a significant adherent cutaneous flap. The injury was caused by the nails of her dog, who had jumped off the couch. Inthe Emergency Department, the flap was sutured in place using seven 5-0 nylon sutures. The patient was placed on Keflex and Augmentin orally, and was discharged. The patient is generally healthy for her age, though has a history of wdkx-vzxg-ihxabxmuzilrhgm, GERD, hypertension, hypothyroidism, and osteoporosis. She denies a history of diabetes mellitus, myocardial infarction,cerebrovascular accident, renal disease, and pulmonary disease. Her BMI is 19.5. She is . [facility] Medical History Non-pressure chronic ulcer of left calf with fat layer exposed Traumatic open wound of lower leg Avulsion injury GERD (gastroesophageal reflux disease) HTN (hypertension) Hypothyroidism Depression Anxiety Home Medications ?Medication ?Instructions ?Recorded ?Last Taken ?Type levothyroxine 25 mcg tablet 25 mcg PO DAILY Check with primary 02/07/15 09/29/16 09:00 History doctor Bacillus coagulans-inulin 1 1 ea PO DAILY Check with jesus cheung 12/07/15 09/29/16 09:00 History billion cell-250 mg capsule doctor (Probiotic Formula (inulin)) gabapentin 100 mg capsule 600 mg PO BID Check with loretta mcmillan 12/07/15 09/29/16 21:00 History doctor nifedipine 60 mg tablet,extended 180 mg PO DAILY Check with primary 12/07/15 0 09/29/16 09:00 History release 24 hr doctor pantoprazole 20 mg tablet,delayed 20 mg PO DAILY [facility] 12/07/15 09/29/16 09:00 History release paroxetine HCl 25 mg 75 mg PO DAILY depression 09/29/16 09:00 History tablet,extended release 24 hr (Paxil CR) aspirin 325 mg tablet,delayed 325 mg PO DAILY HEART 09/29/16 09:00 History release buspirone 5 mg tablet 30 mg PO BID Check with prim lesley 04/26/16 09/29/16 21:00 History doctor budesonide 3 mg 9 mg PO DAILY Check with loretta deyanira 09/30/16 Unknown History capsule,delayed,extended release doctor (Entocort EC) lorazepam 0.5 mg tablet 0.5 mg PO Q6H PRN PRN Anxiet y ##10 10/03/16 Unknown Rx dicyclomine 20 mg tablet 20 mg PO TID Check with prim lesley 09/02/22 Unknown History doctor Metamucil Check with primary doctor Unknown History food supplemt, lactose-reduced 120 ml PO 4X/DAY Check with 09/07/22 Unknown History 0.08 gram-1.5 kcal/mL oral liquid primary doctor (Ensure Enlive) loperamide 2 mg tablet 2 mg PO Q6H PRN Constipation 09/07/22 Unknown History omeprazole 40 mg PO/SL DAILY Check with 09/07/22 Unknown History primary doctor atorvastatin 80 mg tablet 20 mg (1/4 x 80 mg) PO QHS # 30 tabs 09/08/22 Unknown Rx cephalexin 500 mg capsule 500 mg PO BID #12 caps 09/08 Unknown Rx amoxicillin 875 mg-potassium 875 mg (0.875 x 875-125 m g) PO 04/29/23 Unknown Rx clavulanate 125 mg tablet Q12H #10 TABLETS Allergy/AdvReac Type Severity Reaction Status Date / Time acetaminophen (From Percocet) Allergy Other Verified 01/06/25 14:05 oxycodone (From Percocet) Allergy Other Verified 01/06/25 14:05 codeine AdvReac Nausea & Verified 01/06/25 14:05 dizziness oxycodone HCl (From Percocet) AdvReac Nausea & Verified 01/06/25 14:05 dizziness Family History Father Diabetes Dementia Surgical History S/P ORIF (open reduction internal fixation) fracture History of surgery on wrist History of cataract surgery History of ankle surgery Social History household members: none Smoking Status: Never smoker substance use type: does not use Vital Signs Vital Signs Vital Signs: 02/09/25 13:13 Temperature 97.4 F L Temperature Source Temporal Pulse Rate 96 Respiratory Rate 18 Blood Pressure 106/53 L Blood Pressure Mean 70 Blood Pressure Source Monitor Blood Pressure Position Semi-Fowlers Blood Pressure Location Left Arm Oxygen Delivery Method Room Air Weight Weight: 95 lb Body Mass Index (BMI) 19.5 Physical Exam Const alert, oriented x3, no apparent distress, average body habitus and well nourished Constitutional Narrative: The patient's BMI is 19.5. General Appearance: cooperative, comfortable, well kempt and well developed Orientation / Consciousness: awake, oriented to person, oriented to place and oriented to time Exam Limitations: no limitations HEENT normocephalic and head/scalp atraumatic Head and Scalp: normal to inspection, normocephalic and atraumatic Face and Sinus: normal facial exam Nose: external nose normal External Ear: external ears normal Eyes EOMs intact bilaterally General Eye: normal appearance of both eyes Neck full ROM Resp normal respiratory effort, normal air movement, no retractions and no use of accessory muscles Effort and Inspection: able to speak in complete sentences Extremity no calf tenderness General Extremity: Negative for clubbing or cyanosis Skin Wound Narrative: A traumatic wound is noted on the patient's left medial calf. It is an avulsioninjury, with a resultant flap of skin. At the time of the patient's Emergency Department visit, the flap was repositioned, and sutured in place using seven 5- 0 nylon sutures. The sutures have been removed during previous visits. At thistime, it is evident that a large portion of the avulsion flap, which had been repositioned and sutured in place, has necrosed and is no longer viable. The nonviable portion of the wound is located centrally. Peripherally, there appears to be evidence of epithelialization. The wound extends through all layers of the dermis and into the subcutaneous tissues. There is no sign of infection or cellulitis. No significant swelling or edema are noted. Dimensions are documented elsewhere. Neuro oriented x3, CN's II-XII intact bilaterally, moves all extremities, no focal motor deficits and no sensory deficits noted Sensorium / Orientation: awake, alert, oriented to person, oriented to place andoriented to time Psych Appearance: grossly normal and appropriate Attitude: calm Activity / Motor Behavior: appropriate eye contact Speech: normal speech Mood & Affect: euthymic mood Thought Process: normal thought process Thought Content: normal thought content Attention / Concentration: attention grossly intact Debridement Note Debridement Note Wound debrided: Traumatic avulsion injury of the left medial calf Laterality: Left Type of Debridement: Excisional debridement Anesthesia Used: 5% Lidocaine Gel and Cetacaine Depth: Down to and including healthy tissue and in the subcutaneous layer Percentage of wound debrided: 100 Instrument Used: 5mm curette Tissue Removed: Necrotic and nonviable tissue; bioburden Severity: Fat Layer Exposed Amount of bleeding with debridement: Mild Bleeding Controlled with: Compression and gauze Patient tolerated procedure: Patient tolerated procedure well Post-Debridement Measurements and Additional Note: Post-Debridement Measurements/Treatment - Nurse 1 - General Ulcer Assessment Start: 02/09/25 13:13 Freq: Status: Active Protocol: NATHALIE Activity Type Activity Date Activity User E-sign Co-sign Detail Recorded Client Recorded Date Recorded By Document 02/09/25 13:13 [id number] 02/09/25 13:18 02/09/25 13:13 - Today's Visit Information Type of service Follow-up Visit (Physician/DEALERSHIP MANAGER ) Arrival Mode Ambulatory,Cane Patient Identification Verified (Name & Yes ) Height and Weight Body Mass Index (BMI) 19.5 BMI Classification Normal Vital Signs Temperature (97.8 F-99.1 F) 97.4 F L Temperature Source Temporal Pulse Rate (60-100) 96 Pulse Location Monitor Respiratory Rate (12-18) 18 Respiratory rate source Observation Oxygen Delivery Method Room Air Blood Pressure (90/60-120/80) 106/53 L Blood Pressure Mean 70 Source Monitor Position Semi-Fowlers Blood Pressure Location Left Arm History Since Last Visit- (Skip if this is Patient's initial visit) Have you changed medications since your No last visit? Any new allergies or adverse reactions No Had a fall/change in ADL's that may No increase risk of falls Signs or symptoms of abuse and/or No neglect since last visit Have you been in the hospital since your No last visit? Has dressing in place as prescribed Yes Has compression in place as prescribed Yes Has offloadiing in place as prescribed N/A Experienced any changes in pain level or No management Left Footwear Regular Shoe Right Footwear Regular Shoe Pain Scale: 0-10 Numeric Is Patient Pain Free? Yes WC - Nurse 1 - General Ulcer Measurement Start: 02/09/25 13:13 Freq: Status: Active Protocol: Activity Type Activity Date Activity User E-sign Co-sign Detail Recorded Client Recorded Date Recorded By Document 02/09/25 13:13 KW [id number] 02/09/25 13:18 KW 02/09/25 13:13 Wound Center Nurse 1 #1 LT MED LE -Current Size (cm) - Length 2.2 -Current Size (cm) - Width 2.5 -Current Size (cm) - Depth 0.1 -Total Square Cm 5.50 -Date of Last Picture (Recall this 02/09/25 field) -Exudate Amt Medium -Exudate Type Serosanguineous -Wound Margin Distinct, Outline Attached -Granulation Amt Medium (34-66%) -Granulation Quality [place] -Necrosis Amt Medium (34-66%) -Necrotic Tissue Type Adherent Slough -Texture (Maylin-wound Skin Appearance) Assessed -Moisture (Maylin-wound Skin Appearance) Assessed -Color (Maylin-wound Skin Appearance) Assessed, Erythema -Temperature (Maylin-wound Skin No Abnormality Appearance) (Pt Warm) -Tenderness on Palpation (Maylin-wound No Skin Appearance) -Ulcer Cleansing Rinsed/ Irrigated with Saline -Foul Odor after Cleansing No -Anesthetic Used 5% Lidocaine Gel DANTE - Nurse 2 - General Ulcer CM Notes Start: 02/09/25 13:13 Freq: Status: Active Protocol: Activity Type Activity Date Activity User E-sign Co-sign Detail Recorded Client Recorded Date Recorded By Document 02/09/25 13:24 DS [id number] 02/09/25 13:28 DS 02/09/25 13:24 Wound Center Nurse 2 -Time 13:24 -Correct Patient Yes -Correct Side, Site, Position Yes -Correct Procedure Yes -Procedure Performed Yes -Type of Procedure Debridement -Clinical Debridement Subcutaneous -Tissue Removed Subcutaneous -Post Debridement (cm) - Length 1.5 -Post Debridement (cm) - Width 1.5 -Post Debridement (cm) - Depth 0.1 -Total Square (Post) (cm) 2.25 -Area of Debridement (cm) - Length 1.5 -Area of Debridement (cm) - Width 1.5 -Total Square (Area) (cm) 2.25 -Tunneling No -Undermining/Tunneling No -Circular Undermining No -Wound/Ulcer Outcome Not Healed -Ulcer Cleansing Rinsed/ Irrigated with Saline -Foul Odor after Cleansing No -Bioengineered Tissue No -Bleeding Controlled with Pressure -Treatment Response Procedure Tolerated Well -Debridement - Subq, 1st 20sq cm Yes Pain Scale: 0-10 Numeric Is Patient Pain Free? Yes - Nurse 3 - General Ulcer D/C NN Start: 02/09/25 13:13 Freq: Status: Active Protocol: Activity Type Activity Date Activity User E-sign Co-sign Detail Recorded Client Recorded Date Recorded By Document 02/09/25 13:32 RUSS [id number] 02/09/25 13:33 KW 02/09/25 13:32 Wound Care Center Nurse 3 #1 LT MED LE -Primary Dressing Applied Aquacel Extra -Primary Dressing Covered/Secured with Dry Gauze & Roll Gauze, Secured with Tape -Aquacel Extra 1 LLE -Compression Wrap John Wrap Pain Scale: 0-10 Numeric Is Patient Pain Free? Yes WC - Visit Discharge Discharge Condition Stable Ambulatory Status Ambulatory,Cane Transportation Private Auto Medication Reconcilliation completed & No provided to patient/care provider Clinical Summary of Care Provided Yes Charges/Coding Procedures Integumentary [id number]: [id number] Esha subq tissue 20 sq cm/< Assessment/Plan Assessment/Plan (1) Non-pressure chronic ulcer of left calf with fat layer exposed: CODE(S): L97.222 - Non-pressure chronic ulcer of left calf with fat layer exposed (2) Traumatic open wound of lower leg: CODE(S): S81.809A - Unspecified open wound, unspecified lower leg, initialencounter QUALIFIERS: Encounter type: subsequent encounter Laterality: left Qualified Code(s): S81.802D - Unspecified open wound, left lower leg, subsequent encounter (3) Avulsion injury: CODE(S): T14.8XXA - Other injury of unspecified body region, initial encounter (4) S/P ORIF (open reduction internal fixation) fracture: CODE(S): Z96.7 - Presence of other bone and tendon implants; Z87.81 - Personal history of (healed) traumatic fracture (5) S/P ORIF (open reduction internal fixation) fracture: CODE(S): Z98.890 - Other specified postprocedural states; Z87.81 - Personal history of (healed) traumatic fracture (6) History of surgery on wrist: CODE(S): Z98.890 - Other specified postprocedural states (7) History of cataract surgery: CODE(S): Z98.49 - Cataract extraction status, unspecified eye (8) History of ankle surgery: CODE(S): Z98.890 - Other specified postprocedural states (9) Hypothyroidism: CODE(S): E03.9 - Hypothyroidism, unspecified QUALIFIERS: Hypothyroidism type: acquired Qualified Code(s): E03.9 - Hypothyroidism, unspecified (10) Raynaud phenomenon: CODE(S): I73.00 - Raynaud's syndrome without gangrene QUALIFIERS: Raynaud?s-associated gangrene presence: without gangrene Qualified Code(s): I73.00 - Raynaud's syndrome without gangrene (11) Osteoporosis: CODE(S): M81.0 - Age-related osteoporosis without current pathological fracture (12) Ohlo-ajis-wfzpvoljokvbvaf: 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 The injury occurred when the patient's dog traumatized her leg with its nails. Immediately following her injury, the patient presented to the [facility] Emergency Department, where the avulsion flap was repositioned and sutured in place. The central portion of the traumatic flap has now necrosed, and is no longer viable. This portion of the wound has been debrided in the Wound Center today. It is afull-thickness ulceration, extending down into the subcutaneous tissues. We areto continue the use of Aquacel Extra topically, which will be moistened at the time of application. The patient has been instructed in the appropriate means of application. Mild compression is to be applied by means of an John wrap, which will be applied on a daily basis. She is to return in 1 week for reassessment. The patient has been advised to optimize her nutritional intake, and is using Huy as a supplement. Total time: 24 minutes 02/10/25 1057 <Electronically signed by Cedric Gibbons MD> Cosigner Signature (if applicable): CC: ~ Signed [facility] Work Phone: [phone] 287-306206-04-2025 History and physical note [facility] [address] [place] [address] H&P Exam - Wound Care 02/10/25 1015 MR#: [id number] Acct: [id number] Name: GERALDINE HAIRSTON Rep #:[id number] 07 : 1950 74 From: Cedric Worthington PCP: Dr. Chance Kolb MD Status:RE G RCR Location: History of Present Illness Date of Service: 02/09/25 Chief Complaint: Traumatic avulsion injury of the left medial calf History of Wound: This is a 74-year-old female who sustained a traumatic injury to her left medial calf on January 01, 2025. At the time of her injury, she presented to the [facility] Emergency Department, where she was found to have an avulsion injury with a significant adherent cutaneous flap. The injury was caused by the nails of her dog, who had jumped off the couch. Inthe Emergency Department, the flap was sutured in place using seven 5-0 nylon sutures. The patient was placedon Keflex and Augmentin orally, and was discharged. The patient is generally healthy for her age, though has a history of mdnc-vajk-nggxbgqhqemxpbm, GERD, hypertension, hypothyroidism, and osteoporosis. She denies a history of diabetes mellitus, myocardial infarction,cerebrovascular accident, renaldisease, and pulmonary disease. Her BMI is 19.5. She is . [facility] Medical History Non-pressure chronic ulcer of left calf with fat layer exposed Traumatic open wound of lower leg Avulsion injury GERD (gastroesophageal reflux disease) HTN (hypertension) Hypothyroidism Depression Anxiety Home Medications ?Medication ?Instructions ?Recorded ?Last Taken ?Type levothyroxine 25 mcg tablet 25 mcg PO DAILY Check with primary 02/07/15 09/29/16 09:00 History doctor Bacillus coagulans-inulin 1 1 ea PO DAILY Check with p rimary 12/07/15 09/29/16 09:00 History billion cell-250 mg capsule doctor (Probiotic Formula (inulin)) gabapentin 100 mg capsule 600 mg PO BID Check with loretta deyanira 12/07/15 09/29/16 21:00 History doctor nifedipine 60 mg tablet,extended 180 mg PO DAILY Check with primary 12/07/15 0 09/29/16 09:00 History release 24 hr doctor pantoprazole 20 mg tablet,delayed 20 mg PO DAILY [facility] 12/07/15 09/29/16 09:00 History release paroxetine HCl 25 mg 75 mg PO DAILY depression 09/29/16 09:00 History tablet,extended release 24 hr (Paxil CR) aspirin 325 mg tablet,delayed 325 mg PO DAILY HEART 09/29/16 09:00 History release buspirone 5 mg tablet 30 mg PO BID Check with prim lesley 04/26/16 09/29/16 21:00 History doctor budesonide 3 mg 9 mg PO DAILY Check with loretta deyanira 09/30/16 Unknown History capsule,delayed,extended release doctor (Entocort EC) lorazepam 0.5 mg tablet 0.5 mg PO Q6H PRN PRN Anxiet y ##10 10/03/16 Unknown Rx dicyclomine 20 mg tablet 20 mg PO TID Check with prim lesley 09/02/22 Unknown History doctor Metamucil Check with primary doctor Unknown History food supplemt, lactose-reduced 120 ml PO 4X/DAY Check with 09/07/22 Unknown History 0.08 gram-1.5 kcal/mL oral liquid primary doctor (Ensure Enlive) loperamide 2 mg tablet 2 mg PO Q6H PRN Constipation 09/07/22 Unknown History omeprazole 40 mg PO/SL DAILY Check with 09/07/22 Unknown History primary doctor atorvastatin 80 mg tablet 20 mg (1/4 x 80 mg) PO QHS # 30 tabs 09/08/22 Unknown Rx cephalexin 500 mg capsule 500 mg PO BID #12 caps 09/08 Unknown Rx amoxicillin 875 mg-potassium 875 mg (0.875 x 875-125 m g) PO 04/29/23 Unknown Rx clavulanate 125 mg tablet Q12H #10 TABLETS Allergy/AdvReac Type Severity Reaction Status Date / Time acetaminophen (From Percocet) Allergy Other Verified 01/06/25 14:05 oxycodone (From Percocet) Allergy Other Verified 01/06/25 14:05 codeine AdvReac Nausea & Verified 01/06/25 14:05 dizziness oxycodone HCl (From Percocet) AdvReac Nausea & Verified 01/06/25 14:05 dizziness Family History Father Diabetes Dementia Surgical History S/P ORIF (open reduction internal fixation) fracture History of surgery on wrist History of cataract surgery History of ankle surgery Social History household members: none Smoking Status: Never smoker substance use type: does not use Vital Signs Vital Signs Vital Signs: 02/09/25 13:13 Temperature 97.4 F L Temperature Source Temporal Pulse Rate 96 Respiratory Rate 18 Blood Pressure 106/53 L Blood Pressure Mean 70 Blood Pressure Source Monitor Blood Pressure Position Semi-Fowlers Blood Pressure Location Left Arm Oxygen Delivery Method Room Air Weight Weight: 95 lb Body Mass Index (BMI) 19.5 Physical Exam Const alert, oriented x3, no apparent distress, average body habitus and well nourished Constitutional Narrative: The patient's BMI is 19.5. General Appearance: cooperative, comfortable, well kempt and well developed Orientation / Consciousness: awake, oriented to person, oriented to place and oriented to time Exam Limitations: no limitations HEENT normocephalic and head/scalp atraumatic Head and Scalp: normal to inspection, normocephalic and atraumatic Face and Sinus: normal facial exam Nose: external nose normal External Ear: external ears normal Eyes EOMs intact bilaterally General Eye: normal appearance of both eyes Neck full ROM Resp normal respiratory effort, normal air movement, no retractions and no use of accessory muscles Effort and Inspection: able to speak in complete sentences Extremity no calf tenderness General Extremity: Negative for clubbing or cyanosis Skin Wound Narrative: A traumatic wound is noted on the patient's left medial calf. It is an avulsioninjury, with a resultant flap of skin. At the time of the patient's Emergency Department visit, the flap was repositioned, and sutured in place using seven 5-0 nylon sutures. The sutures have been removed during previous visits. At thistime, it is evident that a large portion of the avulsion flap, which had been repositioned and sutured in place, has necrosed and is no longer viable. The nonviable portion of the wound is located centrally. Peripherally, there appears to be evidence of epithelialization. The wound extends through all layers of the dermis and into the subcutaneous tissues. There is no sign of infection or cellulitis. No significant swelling or edema are noted. Dimensions are documented elsewhere. Neuro oriented x3, CN's II-XII intact bilaterally, moves all extremities, no focal motor deficits and no sensory deficits noted Sensorium / Orientation: awake, alert, oriented to person, oriented to place andoriented to time Psych Appearance: grossly normal and appropriate Attitude: calm Activity / Motor Behavior: appropriate eye contact Speech: normal speech Mood & Affect: euthymic mood Thought Process: normal thought process Thought Content: normal thought content Attention / Concentration: attention grossly intact Debridement Note Debridement Note Wound debrided: Traumatic avulsion injury of the left medial calf Laterality: Left Type of Debridement: Excisional debridement Anesthesia Used: 5% Lidocaine Gel and Cetacaine Depth: Down to and including healthy tissue and in the subcutaneous layer Percentage of wound debrided: 100 Instrument Used: 5mm curette Tissue Removed: Necrotic and nonviable tissue; bioburden Severity: Fat Layer Exposed Amount of bleeding with debridement: Mild Bleeding Controlled with: Compression and gauze Patient tolerated procedure: Patient tolerated procedure well Post-Debridement Measurements and Additional Note: Post-Debridement Measurements/Treatment - Nurse 1 - General Ulcer Assessment Start: 02/09/25 13:13 Freq: Status: Active Protocol: NATHALIE Activity Type Activity Date Activity User E-sign Co-sign Detail Recorded Client Recorded Date Recorded By Document 02/09/25 13:13 RUSS [id number] 02/09/25 13:18 KW 02/09/25 13:13 - Today's Visit Information Type of service Follow-up Visit (Physician/DEALERSHIP MANAGER ) Arrival Mode Ambulatory,Cane Patient Identification Verified (Name & Yes ) Height and Weight Body Mass Index (BMI) 19.5 BMI Classification Normal Vital Signs Temperature (97.8 F-99.1 F) 97.4 F L Temperature Source Temporal Pulse Rate (60-100) 96 Pulse Location Monitor Respiratory Rate (12-18) 18 Respiratory rate source Observation Oxygen Delivery Method Room Air Blood Pressure (90/60-120/80) 106/53 L Blood Pressure Mean 70 Source Monitor Position Semi-Fowlers Blood Pressure Location Left Arm History Since Last Visit- (Skip if this is Patient's initial visit) Have you changed medications since your No last visit? Any new allergies or adverse reactions No Had a fall/change in ADL's that may No increase risk of falls Signs or symptoms of abuse and/or No neglect since last visit Have you been in the hospital since your No last visit? Has dressing in place as prescribed Yes Has compression in place as prescribed Yes Has offloadiing in place as prescribed N/A Experienced any changes in pain level or No management Left Footwear Regular Shoe Right Footwear Regular Shoe Pain Scale: 0-10 Numeric Is Patient Pain Free? Yes WC - Nurse 1 - General Ulcer Measurement Start: 02/09/25 13:13 Freq: Status: Active Protocol: Activity Type Activity Date Activity User E-sign Co-sign Detail Recorded Client Recorded Date Recorded By Document 02/09/25 13:13 KW [id number] 02/09/25 13:18 KW 02/09/25 13:13 Wound Center Nurse 1 #1 LT MED LE -Current Size (cm) - Length 2.2 -Current Size (cm) - Width 2.5 -Current Size (cm) - Depth 0.1 -Total Square Cm 5.50 -Date of Last Picture (Recall this 02/09/25 field) -Exudate Amt Medium -Exudate Type Serosanguineous -Wound Margin Distinct, Outline Attached -Granulation Amt Medium (34-66%) -Granulation Quality [place] -Necrosis Amt Medium (34-66%) -Necrotic Tissue Type Adherent Slough -Texture (Maylin-wound Skin Appearance) Assessed -Moisture (Maylin-wound Skin Appearance) Assessed -Color (Maylin-wound Skin Appearance) Assessed, Erythema -Temperature (Maylin-wound Skin No Abnormality Appearance) (Pt Warm) -Tenderness on Palpation (Maylin-wound No Skin Appearance) -Ulcer Cleansing Rinsed/ Irrigated with Saline -Foul Odor after Cleansing No -Anesthetic Used 5% Lidocaine Gel WC - Nurse 2 - General Ulcer CM Notes Start: 02/09/25 13:13 Freq: Status: Active Protocol: Activity Type Activity Date Activity User E-sign Co-sign Detail Recorded Client Recorded Date Recorded By Document 02/09/25 13:24 DS [id number] 02/09/25 13:28 DS 02/09/25 13:24 Wound Center Nurse 2 -Time 13:24 -Correct Patient Yes -Correct Side, Site, Position Yes -Correct Procedure Yes -Procedure Performed Yes -Type of Procedure Debridement -Clinical Debridement Subcutaneous -Tissue Removed Subcutaneous -Post Debridement (cm) - Length 1.5 -Post Debridement (cm) - Width 1.5 -Post Debridement (cm) - Depth 0.1 -Total Square (Post) (cm) 2.25 -Area of Debridement (cm) - Length 1.5 -Area of Debridement (cm) - Width 1.5 -Total Square (Area) (cm) 2.25 -Tunneling No -Undermining/Tunneling No -Circular Undermining No -Wound/Ulcer Outcome Not Healed -Ulcer Cleansing Rinsed/ Irrigated with Saline -Foul Odor after Cleansing No -Bioengineered Tissue No -Bleeding Controlled with Pressure -Treatment Response Procedure Tolerated Well -Debridement - Subq, 1st 20sq cm Yes Pain Scale: 0-10 Numeric Is Patient Pain Free? Yes - Nurse 3 - General Ulcer D/C NN Start: 02/09/25 13:13 Freq: Status: Active Protocol: Activity Type Activity Date Activity User E-sign Co-sign Detail Recorded Client Recorded Date Recorded By Document 02/09/25 13:32 KW [id number] 02/09/25 13:33 KW 02/09/25 13:32 Wound Care Center Nurse 3 #1 LT MED LE -Primary Dressing Applied Aquacel Extra -Primary Dressing Covered/Secured with Dry Gauze & Roll Gauze, Secured with Tape -Aquacel Extra 1 LLE -Compression Wrap John Wrap Pain Scale: 0-10 Numeric Is Patient Pain Free? Yes WC - Visit Discharge Discharge Condition Stable Ambulatory Status Ambulatory,Cane Transportation Private Auto Medication Reconcilliation completed & No provided to patient/care provider Clinical Summary of Care Provided Yes Charges/Coding Procedures Integumentary 111xxx-113xx: 35494 Esha subq tissue 20 sq cm/< Assessment/Plan Assessment/Plan (1) Non-pressure chronic ulcer of left calf with fat layer exposed: CODE(S): L97.222 - Non-pressure chronic ulcer of left calf with fat layer exposed (2) Traumatic open wound of lower leg: CODE(S): S81.809A - Unspecified open wound, unspecified lower leg, initialencounter QUALIFIERS: Encounter type: subsequent encounter Laterality: left Qualified Code(s): S81.802D - Unspecified open wound, left lower leg, subsequent encounter (3) Avulsion injury: CODE(S): T14.8XXA - Other injury of unspecified body region, initial encounter (4) S/P ORIF (open reduction internal fixation) fracture: CODE(S): Z96.7 - Presence of other bone and tendon implants; Z87.81 - Personal history of (healed) traumatic fracture (5) S/P ORIF (open reduction internal fixation) fracture: CODE(S): Z98.890 - Other specified postprocedural states; Z87.81 - Personal history of (healed) traumatic fracture (6) History of surgery on wrist: CODE(S): Z98.890 - Other specified postprocedural states (7) History of cataract surgery: CODE(S): Z98.49 - Cataract extraction status, unspecified eye (8) History of ankle surgery: CODE(S): Z98.890 - Other specified postprocedural states (9) Hypothyroidism: CODE(S): E03.9 - Hypothyroidism, unspecified QUALIFIERS: Hypothyroidism type: acquired Qualified Code(s): E03.9 - Hypothyroidism, unspecified (10) Raynaud phenomenon: CODE(S): I73.00 - Raynaud's syndrome without gangrene QUALIFIERS: Raynaud?s-associated gangrene presence: without gangrene Qualified Code(s): I73.00 - Raynaud's syndrome without gangrene (11) Osteoporosis: CODE(S): M81.0 - Age-related osteoporosis without current pathological fracture (12) Vmuw-ilge-qpwkfxuulspxpvh: 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 The injury occurred when the patient's dog traumatized her leg with its nails. Immediately following her injury, the patient presented to the [facility] Emergency Department, where the avulsion flap was repositioned and sutured in place. The central portion of the traumatic flap has now necrosed, and is no longer viable. This portion of the wound has been debrided in the Wound Center today. It is afull-thickness ulceration, extending down into the subcutaneous tissues. We areto continue the use of Aquacel Extra topically, which will be moistened at the time of application. The patient has been instructed in the appropriate means of application. Mild compression is to be applied by means of an John wrap, which will be applied on a daily basis. She is to return in 1 week for reassessment. The patient has been advised to optimize her nutritionalintake, and is using Huy as a supplement. Total time: 24 minutes 02/10/25 1057 Cosigner Signature (if applicable): CC: ~ Signed [facility]05-28-2025 Telephone encounter Note* Telephone Encounter - Ann Marie Kelly LPN - 02/03/2025 1:57 PM EDT Patient needing new prescriptions, all over 6 mos. Patient has been identified by name and date of : Yes Patient phones for refill(s): Requested Prescriptions Pending Prescriptions Disp Refills gabapentin (NEURONTIN) 600 mg tablet 180 tablet 3 Sig: Take 1 tablet by mouth two times a day. levothyroxine (SYNTHROID) 25 mcg tablet 90 tablet 3 Sig: Take 1 tablet by mouth daily before breakfast. NIFEdipine ER (PROCARDIA XL) 30 mg 24 hr tablet 540 tablet 3 Sig: Take 6 tablets by mouth once daily. Adjust as direceted Date of last office visit in primary care: 01/29/2025 Date of next office visit in primary care: 05/04/2025 Please advise. Thank you. Ann Marie Kelly LPN. [facility]05-28-2025 Miscellaneous Notes* Telephone Encounter - Ann Marie Kelly LPN - 02/03/2025 1:57 PM EDT Patient needing new prescriptions, all over 6 mos. Patient has been identified by name and date of : Yes Patient phones for refill(s): Requested Prescriptions Pending Prescriptions Disp Refills gabapentin (NEURONTIN) 600 mg tablet 180 tablet 3 Sig: Take 1 tablet by mouth two times a day. levothyroxine (SYNTHROID) 25 mcg tablet 90 tablet 3 Sig: Take 1 tablet by mouth daily before breakfast. NIFEdipine ER (PROCARDIA XL) 30 mg 24 hr tablet 540 tablet 3 Sig: Take 6 tablets by mouth once daily. Adjust as direceted Date of last office visit in primary care: 01/29/2025 Date of next office visit in primary care: 05/04/2025 Please advise. Thank you. Ann Marie Kelly LPN. [facility] History and physical note Author Cedric Gibbons [facility] Note Date/Time February 02, 2025 4:53p m [facility] [address] [place] [address] H&P Exam - Wound Care 02/02/25 1643 MR#: [id number] Acct: [id number] Name: GERALDINE HAIRSTON Rep #:[id number] 12 : 1950 74 From: Cedric Worthington PCP: Dr. Chance Kolb MD Status:RE G RCR Location: History of Present Illness Date of Service: 02/02/25 Chief Complaint: Traumatic avulsion injury of the left medial calf History of Wound: This is a 74-year-old female who sustained a traumatic injury to her left medial calf on January 01, 2025. At the time of her injury, she presented to the [facility] Emergency Department, where she was found to have an avulsion injury with a significant adherent cutaneous flap. The injury was caused by the nails of her dog, who had jumped off the couch. Inthe Emergency Department, the flap was sutured in place using seven 5-0 nylon sutures. The patient was placed on Keflex and Augmentin orally, and was discharged. The patient is generally healthy for her age, though has a history of bjrj-xdpb-irzqwmwissonbso, GERD, hypertension, hypothyroidism, and osteoporosis. She denies a history of diabetes mellitus, myocardial infarction,cerebrovascular accident, renal disease, and pulmonary disease. Her BMI is 19.5. She is . [facility] Medical History (Updated 02/02/25 @ 16:[address] Cedric Gibbons MD) Non-pressure chronic ulcer of left calf with fat layer exposed Traumatic open wound of lower leg Avulsion injury GERD (gastroesophageal reflux disease) HTN (hypertension) Hypothyroidism Depression Anxiety Home Medications ?Medication ?Instructions ?Recorded ?Last Taken ?Type levothyroxine 25 mcg tablet 25 mcg PO DAILY Check with primary 02/07/15 09/29/16 09:00 History doctor Bacillus coagulans-inulin 1 1 ea PO DAILY Check with p skye 12/07/15 09/29/16 09:00 History billion cell-250 mg capsule doctor (Probiotic Formula (inulin)) gabapentin 100 mg capsule 600 mg PO BID Check with loretta mcmillan 12/07/15 09/29/16 21:00 History doctor nifedipine 60 mg tablet,extended 180 mg PO DAILY Check with primary 12/07/15 09:00 History release 24 hr doctor pantoprazole 20 mg tablet,delayed 20 mg PO DAILY [facility] 12/07/15 09/29/16 09:00 History release paroxetine HCl 25 mg 75 mg PO DAILY depression 09/29/16 09:00 History tablet,extended release 24 hr (Paxil CR) aspirin 325 mg tablet,delayed 325 mg PO DAILY HEART 09/29/16 09:00 History release buspirone 5 mg tablet 30 mg PO BID Check with prim lesley 04/26/16 09/29/16 21:00 History doctor budesonide 3 mg 9 mg PO DAILY Check with loretta mcmillan 09/30/16 Unknown History capsule,delayed,extended release doctor (Entocort EC) lorazepam 0.5 mg tablet 0.5 mg PO Q6H PRN PRN Anxiet y ##10 10/03/16 Unknown Rx dicyclomine 20 mg tablet 20 mg PO TID Check with prim lesley 09/02/22 Unknown History doctor Metamucil Check with primary doctor Unknown History food supplemt, lactose-reduced 120 ml PO 4X/DAY Check with 09/07/22 Unknown History 0.08 gram-1.5 kcal/mL oral liquid primary doctor (Ensure Enlive) loperamide 2 mg tablet 2 mg PO Q6H PRN Constipation 09/07/22 Unknown History omeprazole 40 mg PO/SL DAILY Check with 09/07/22 Unknown History primary doctor atorvastatin 80 mg tablet 20 mg (1/4 x 80 mg) PO QHS # 30 tabs 09/08/22 Unknown Rx cephalexin 500 mg capsule 500 mg PO BID #12 caps 09/08 Unknown Rx amoxicillin 875 mg-potassium 875 mg (0.875 x 875-125 m g) PO 04/29/23 Unknown Rx clavulanate 125 mg tablet Q12H #10 TABLETS Allergy/AdvReac Type Severity Reaction Status Date / Time acetaminophen (From Percocet) Allergy Other Verified 01/06/25 14:05 oxycodone (From Percocet) Allergy Other Verified 01/06/25 14:05 codeine AdvReac Nausea & Verified 01/06/25 14:05 dizziness oxycodone HCl (From Percocet) AdvReac Nausea & Verified 01/06/25 14:05 dizziness Family History Father Diabetes Dementia Surgical History S/P ORIF (open reduction internal fixation) fracture History of surgery on wrist History of cataract surgery History of ankle surgery Social History household members: none Smoking Status: Never smoker substance use type: does not use Vital Signs Vital Signs Vital Signs: 02/02/25 14:09 Temperature 97.0 F L Temperature Source Temporal Pulse Rate 96 Respiratory Rate 18 Blood Pressure 106/66 Blood Pressure Mean 79 Blood Pressure Source Monitor Blood Pressure Position Semi-Fowlers Blood Pressure Location Right Arm Weight Weight: 95 lb Body Mass Index (BMI) 19.5 Physical Exam Const alert, oriented x3, no apparent distress, average body habitus and well nourished Constitutional Narrative: The patient's BMI is 19.5. General Appearance: cooperative, comfortable, well kempt and well developed Orientation / Consciousness: awake, oriented to person, oriented to place and oriented to time Exam Limitations: no limitations HEENT normocephalic and head/scalp atraumatic Head and Scalp: normal to inspection, normocephalic and atraumatic Face and Sinus: normal facial exam Nose: external nose normal External Ear: external ears normal Eyes EOMs intact bilaterally General Eye: normal appearance of both eyes Neck full ROM Resp normal respiratory effort, normal air movement, no retractions and no use of accessory muscles Effort and Inspection: able to speak in complete sentences Extremity no calf tenderness General Extremity: Negative for clubbing or cyanosis Skin Wound Narrative: A traumatic wound is noted on the patient's left medial calf. It is an avulsioninjury, with a resultant flap of skin. At the time of the patient's Emergency Department visit, the flap was repositioned, and sutured in place using seven 5- 0 nylon sutures. The sutures have been removed during previous visits. At thistime, it is evident that a large portion of the avulsion flap, which had been repositioned and sutured in place, is now necrotic and nonviable. The nonviableportion of the wound is located centrally. Peripherally, there appears to be evidence of epithelialization. There is no sign of infection or cellulitis. Nosignificant swelling or edema are noted. Neuro oriented x3, CN's II-XII intact bilaterally, moves all extremities, no focal motor deficits and no sensory deficits noted Sensorium / Orientation: awake, alert, oriented to person, oriented to place andoriented to time Psych Appearance: grossly normal and appropriate Attitude: calm Activity / Motor Behavior: appropriate eye contact Speech: normal speech Mood & Affect: euthymic mood Thought Process: normal thought process Thought Content: normal thought content Attention / Concentration: attention grossly intact Debridement Note Debridement Note Wound debrided: Traumatic avulsion injury of the left medial calf Laterality: Left Type of Debridement: Excisional debridement Anesthesia Used: 5% Lidocaine Gel and Cetacaine Depth: Down to and including healthy tissue and in the subcutaneous layer Percentage of wound debrided: 100 Instrument Used: 5mm curette, Forceps and - (Scissors) Tissue Removed: Necrotic and nonviable tissue; bioburden Severity: Fat Layer Exposed Amount of bleeding with debridement: Mild Bleeding Controlled with: Compression and gauze Patient tolerated procedure: Patient tolerated procedure well Post-Debridement Measurements and Additional Note: Post-Debridement Measurements/Treatment DANTE - Nurse 1 - General Ulcer Assessment Start: 01/13/25 13:56 Freq: Status: Active Protocol: NATHALIE Activity Type Activity Date Activity User E-sign Co-sign Detail Recorded Client Recorded Date Recorded By Document 01/13/25 13:59 DL [id number] 01/13/25 14:01 DL Document 01/19/25 13:46 KW [id number] 01/19/25 13:49 KW Document 02/02/25 14:09 JF [id number] 02/02/25 14:16 JF 01/13/25 01/19/25 02/02/25 13:59 13:46 14:09 WC - Today's Visit Information Type of service Follow-up Visit Follow-up Visit Follow-up Visit (Physician/DEALERSHIP MANAGER (Physician/DEALERSHIP MANAGER (Physician/DEALERSHIP MANAGER ) ) ) Arrival Mode Ambulatory Ambulatory,Cane Ambulatory,Cane Transfer Assistance None Patient Identification Verified (Name & Yes Yes Yes ) Patient Requires Transmission-Based No No Precautions Height and Weight Body Mass Index (BMI) 19.5 19.5 19.5 BMI Classification Normal Normal Normal Vital Signs Temperature (97.8 F-99.1 F) 97 F L 98.0 F 97.0 F L Temperature Source Temporal Temporal Temporal Pulse Rate (60-100) 83 92 96 Pulse Location Monitor Monitor Monitor Respiratory Rate (12-18) 16 16 18 Respiratory rate source Observation Observation Observation Oxygen Delivery Method Room Air Blood Pressure (90/60-120/80) 103/60 98/54 L 106/66 Blood Pressure Mean 74 68 79 Source Monitor Monitor Monitor Position Semi-Fowlers Semi-Fowlers Blood Pressure Location Left Arm Right Arm History Since Last Visit- (Skip if this is Patient's initial visit) Have you changed medications since your No No Yes last visit? Any new allergies or adverse reactions No No No Had a fall/change in ADL's that may No No No increase risk of falls Signs or symptoms of abuse and/or No No No neglect since last visit Have you been in the hospital since your No No No last visit? Has dressing in place as prescribed Yes Yes Yes Has compression in place as prescribed Yes Yes Yes Has offloadiing in place as prescribed Yes N/A N/A Experienced any changes in pain level or No No No management Left Footwear Regular Shoe Regular Shoe Right Footwear Regular Shoe Regular Shoe Pain Scale: 0-10 Numeric Is Patient Pain Free? Yes Yes Yes - Nurse 1 - General Ulcer Measurement Start: 01/13/25 13:56 Freq: Status: Active Protocol: Activity Type Activity Date Activity User E-sign Co-sign Detail Recorded Client Recorded Date Recorded By Document 01/13/25 13:59 DL [id number] 01/13/25 14:01 DL Document 01/19/25 13:46 KW [id number] 01/19/25 13:49 KW Document 02/02/25 14:09 JF [id number] 02/02/25 14:16 JF 01/13/25 01/19/25 02/02/25 13:59 13:46 14:09 Wound Center Nurse 1 #1 LT MED LE -Combined with other wound No -Current Size (cm) - Length 0.1 0.1 1.8 -Current Size (cm) - Width 0.1 0.1 3.0 -Current Size (cm) - Depth 0.1 0 0.1 -Total Square Cm 0.01 0.01 5.40 -Date of Last Picture (Recall this 01/19/25 field) -Photo Taken Yes -Epithelialization Small 1-33% -Tunneling No -Circular Undermining No -Exudate Amt None Present Small Small -Exudate Type Serosanguineous Serosanguineous -Wound Margin Indistinct, Non Flat & Intact Flat & Intact -Visible -Granulation Amt None Present (0 Small (1-33%) %) -Granulation Quality Pale -Slough/Fibrin Yes -Necrosis Amt Small (1-33%) Medium (34-66%) -Necrotic Tissue Type Adherent Slough Adherent Slough -Structure Exposed N/A N/A -Texture (Maylin-wound Skin Appearance) Scarring Assessed Assessed, Localized Edema -Moisture (Maylin-wound Skin Appearance) No Abnormality Assessed Assessed,Dry/ Scaly -Color (Maylin-wound Skin Appearance) No Abnormality Assessed, Assessed Ecchymosis -Temperature (Maylin-wound Skin No Abnormality No Abnormality No Abnormality Appearance) (Pt Warm) (Pt Warm) (Pt Warm) -Tenderness on Palpation (Maylin-wound No No No Skin Appearance) -Ulcer Cleansing Rinsed/ Rinsed/ Rinsed/ Irrigated with Irrigated with Irrigated with Saline Saline Saline -Foul Odor after Cleansing No No No -Anesthetic Used 5% Lidocaine Gel -Wound Comment(s) Skin tear/ sutures intact sutures intact. Lower Limb Edema Present Yes Left Calf (cm) 34 Left Ankle (cm) 17 WC - Nurse 2 - General Ulcer CM Notes Start: 01/13/25 13:56 Freq: Status: Active Protocol: Activity Type Activity Date Activity User E-sign Co-sign Detail Recorded Client Recorded Date Recorded By Document 01/13/25 14:27 [id number] 01/13/25 14:29 Document 01/19/25 14:01 JF [id number] 01/19/25 14:02 Document 02/02/25 14:25 DS [id number] 02/02/25 14:30 DS 01/13/25 01/19/25 02/02/25 14:27 14:01 14:25 Wound Center Nurse 2 #1 LT MED LE -Time 14:27 14:25 -Correct Patient Yes Yes Yes -Correct Side, Site, Position Yes No Yes -Correct Procedure No No Yes -Procedure Performed No No Yes -Type of Procedure Debridement -Clinical Debridement Subcutaneous -Tissue Removed Subcutaneous -Post Debridement (cm) - Length 0.1 1.7 -Post Debridement (cm) - Width 0.1 0.8 -Post Debridement (cm) - Depth 0.1 0.1 -Total Square (Post) (cm) 0.01 1.36 -Area of Debridement (cm) - Length 0.1 1.7 -Area of Debridement (cm) - Width 0.1 0.8 -Total Square (Area) (cm) 0.01 1.36 -Tunneling No -Undermining/Tunneling No -Circular Undermining No No -Wound/Ulcer Outcome Not Healed Not Healed -Ulcer Cleansing Rinsed/ Irrigated with Saline -Foul Odor after Cleansing No No -Bioengineered Tissue No No -Bleeding Controlled with NA Pressure -Treatment Response Procedure Tolerated Well -Debridement - Subq, 1st 20sq cm Yes -Wound Comment(s) sutures intact Pain Scale: 0-10 Numeric Is Patient Pain Free? Yes Yes Yes - Nurse 3 - General Ulcer D/C NN Start: 01/13/25 13:56 Freq: Status: Active Protocol: Activity Type Activity Date Activity User E-sign Co-sign Detail Recorded Client Recorded Date Recorded By Document 01/13/25 14:38 [facility] [id number] 01/13/25 14:38 [facility] Document 01/19/25 14:10 KW [id number] 01/19/25 14:10 KW Document 02/02/25 14:45 DS [id number] 02/02/25 14:45 DS 01/13/25 01/19/25 02/02/25 14:38 14:10 14:45 Wound Care Center Nurse 3 #1 LT MED LE -Ulcer Cleansing Rinsed/ Irrigated with Saline -Foul Odor after Cleansing No -Primary Dressing Applied NonAdherent NonAdherent Aquacel Extra Contact Layer Contact Layer -Primary Dressing Covered/Secured with Dry Gauze & Dry Gauze & Dry Gauze & Roll Gauze, Roll Gauze, Roll Gauze, Secured with Secured with Secured with Tape Tape Tape -Aquacel Extra 1 LLE -Compression Wrap John Wrap Treatment Response Procedure Tolerated Well Pain Scale: 0-10 Numeric Is Patient Pain Free? Yes Yes Yes WC - Visit Discharge Discharge Condition Stable Stable Stable Ambulatory Status Ambulatory,Cane Ambulatory,Cane Ambulatory Transportation Private Auto Private Auto Private Auto Medication Reconcilliation completed & No provided to patient/care provider Clinical Summary of Care Provided Yes Charges/Coding Procedures Integumentary 111xxx-113xx: 17747 Esha subq tissue 20 sq cm/< Assessment/Plan Assessment/Plan (1) Non-pressure chronic ulcer of left calf with fat layer exposed: CODE(S): L97.222 - Non-pressure chronic ulcer of left calf with fat layer exposed (2) Traumatic open wound of lower leg: CODE(S): S81.809A - Unspecified open wound, unspecified lower leg, initialencounter QUALIFIERS: Encounter type: subsequent encounter Laterality: left Qualified Code(s): S81.802D - Unspecified open wound, left lower leg, subsequent encounter (3) Avulsion injury: CODE(S): T14.8XXA - Other injury of unspecified body region, initial encounter (4) S/P ORIF (open reduction internal fixation) fracture: CODE(S): Z96.7 - Presence of other bone and tendon implants; Z87.81 - Personal history of (healed) traumatic fracture (5) S/P ORIF (open reduction internal fixation) fracture: CODE(S): Z98.890 - Other specified postprocedural states; Z87.81 - Personal history of (healed) traumatic fracture (6) History of surgery on wrist: CODE(S): Z98.890 - Other specified postprocedural states (7) History of cataract surgery: CODE(S): Z98.49 - Cataract extraction status, unspecified eye (8) History of ankle surgery: CODE(S): Z98.890 - Other specified postprocedural states (9) Hypothyroidism: CODE(S): E03.9 - Hypothyroidism, unspecified QUALIFIERS: Hypothyroidism type: acquired Qualified Code(s): E03.9 - Hypothyroidism, unspecified (10) Raynaud phenomenon: CODE(S): I73.00 - Raynaud's syndrome without gangrene QUALIFIERS: Raynaud?s-associated gangrene presence: without gangrene Qualified Code(s): I73.00 - Raynaud's syndrome without gangrene (11) Osteoporosis: CODE(S): M81.0 - Age-related osteoporosis without current pathological fracture (12) Nwol-fpfz-chaveuqyoephgtm: 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 The injury occurred when thepatient's dog traumatized her leg with its nails. Immediately following her injury, the patient presented to the [facility] Emergency Department, where the avulsion flap was repositioned and sutured in place. As of today's visit, the central portion of the traumatic flap has now necrosed, and is no longer viable. This portion of the wound has been debrided in the Wound Center today. It is now a full-thickness ulceration, extending down into the subcutaneous tissues. We are to implement the use of Aquacel extra topically, which will be moistened at the time of application. The patient has been instructed in the appropriate means of application. Mild compression is oumar applied by means of an John wrap, which will be applied on a daily basis. Sheis to return in 1 week for reassessment. The patient has been advised to optimize her nutritional intake. Total time: 25 minutes 02/02/25 1653 <Electronically signed by Cedric Gibbons MD> Cosigner Signature (if applicable): CC: ~ Signed [facility] Work Phone: [phone] 274-930905-27-2025 History and physical note [facility] [address] [place] [id number] H&P Exam - Wound Care 02/02/25 1643 MR#: [id number] Acct: [id number] Name: GERALDINE HAIRSTON Rep #:[id number] 12 : 1950 74 From: Cedric Worthington PCP: Dr. Chance Kolb MD Status:RE G RCR Location: History of Present Illness Date of Service: 02/02/25 Chief Complaint: Traumatic avulsion injury of the left medial calf History of Wound: This is a 74-year-old female who sustained a traumatic injury to her left medial calf on January 01, 2025. At the time of her injury, she presented to the [facility] Emergency Department, where she was found to have an avulsion injury with a significant adherent cutaneous flap. The injury was caused by the nails of her dog, who had jumped off the couch. Inthe Emergency Department, the flap was sutured in place using seven 5-0 nylon sutures. The patient was placedon Keflex and Augmentin orally, and was discharged. The patient is generally healthy for her age, though has a history of ycud-fzqb-cmbpxkwoqvrdshc, GERD, hypertension, hypothyroidism, and osteoporosis. She denies a history of diabetes mellitus, myocardial infarction,cerebrovascular accident, renaldisease, and pulmonary disease. Her BMI is 19.5. She is . [facility] Medical History (Updated 02/02/25 @ 16:[address] Cedric Gibbons MD) Non-pressure chronic ulcer of left calf with fat layer exposed Traumatic open wound of lower leg Avulsion injury GERD (gastroesophageal reflux disease) HTN (hypertension) Hypothyroidism Depression Anxiety Home Medications ?Medication ?Instructions ?Recorded ?Last Taken ?Type levothyroxine 25 mcg tablet 25 mcg PO DAILY Check with primary 02/07/15 09/29/16 09:00 History doctor Bacillus coagulans-inulin 1 1 ea PO DAILY Check with jesus cheung 12/07/15 09/29/16 09:00 History billion cell-250 mg capsule doctor (Probiotic Formula (inulin)) gabapentin 100 mg capsule 600 mg PO BID Check with loretta mcmillan 12/07/15 09/29/16 21:00 History doctor nifedipine 60 mg tablet,extended 180 mg PO DAILY Check with primary 12/07/15 09:00 History release 24 hr doctor pantoprazole 20 mg tablet,delayed 20 mg PO DAILY [facility] 12/07/15 09/29/16 09:00 History release paroxetine HCl 25 mg 75 mg PO DAILY depression 09/29/16 09:00 History tablet,extended release 24 hr (Paxil CR) aspirin 325 mg tablet,delayed 325 mg PO DAILY HEART 09/29/16 09:00 History release buspirone 5 mg tablet 30 mg PO BID Check with prim lesley 04/26/16 09/29/16 21:00 History doctor budesonide 3 mg 9 mg PO DAILY Check with loretta deyanira 09/30/16 Unknown History capsule,delayed,extended release doctor (Entocort EC) lorazepam 0.5 mg tablet 0.5 mg PO Q6H PRN PRN Anxiet y ##10 10/03/16 Unknown Rx dicyclomine 20 mg tablet 20 mg PO TID Check with prim lesley 09/02/22 Unknown History doctor Metamucil Check with primary doctor Unknown History food supplemt, lactose-reduced 120 ml PO 4X/DAY Check with 09/07/22 Unknown History 0.08 gram-1.5 kcal/mL oral liquid primary doctor (Ensure Enlive) loperamide 2 mg tablet 2 mg PO Q6H PRN Constipation 09/07/22 Unknown History omeprazole 40 mg PO/SL DAILY Check with 09/07/22 Unknown History primary doctor atorvastatin 80 mg tablet 20 mg (1/4 x 80 mg) PO QHS # 30 tabs 09/08/22 Unknown Rx cephalexin 500 mg capsule 500 mg PO BID #12 caps 09/08 Unknown Rx amoxicillin 875 mg-potassium 875 mg (0.875 x 875-125 m g) PO 04/29/23 Unknown Rx clavulanate 125 mg tablet Q12H #10 TABLETS Allergy/AdvReac Type Severity Reaction Status Date / Time acetaminophen (From Percocet) Allergy Other Verified 01/06/25 14:05 oxycodone (From Percocet) Allergy Other Verified 01/06/25 14:05 codeine AdvReac Nausea & Verified 01/06/25 14:05 dizziness oxycodone HCl (From Percocet) AdvReac Nausea & Verified 01/06/25 14:05 dizziness Family History Father Diabetes Dementia Surgical History S/P ORIF (open reduction internal fixation) fracture History of surgery on wrist History of cataract surgery History of ankle surgery Social History household members: none Smoking Status: Never smoker substance use type: does not use Vital Signs Vital Signs Vital Signs: 02/02/25 14:09 Temperature 97.0 F L Temperature Source Temporal Pulse Rate 96 Respiratory Rate 18 Blood Pressure 106/66 Blood Pressure Mean 79 Blood Pressure Source Monitor Blood Pressure Position Semi-Fowlers Blood Pressure Location Right Arm Weight Weight: 95 lb Body Mass Index (BMI) 19.5 Physical Exam Const alert, oriented x3, no apparent distress, average body habitus and well nourished Constitutional Narrative: The patient's BMI is 19.5. General Appearance: cooperative, comfortable, well kempt and well developed Orientation / Consciousness: awake, oriented to person, oriented to place and oriented to time Exam Limitations: no limitations HEENT normocephalic and head/scalp atraumatic Head and Scalp: normal to inspection, normocephalic and atraumatic Face and Sinus: normal facial exam Nose: external nose normal External Ear: external ears normal Eyes EOMs intact bilaterally General Eye: normal appearance of both eyes Neck full ROM Resp normal respiratory effort, normal air movement, no retractions and no use of accessory muscles Effort and Inspection: able to speak in complete sentences Extremity no calf tenderness General Extremity: Negative for clubbing or cyanosis Skin Wound Narrative: A traumatic wound is noted on the patient's left medial calf. It is an avulsioninjury, with a resultant flap of skin. At the time of the patient's Emergency Department visit, the flap was repositioned, and sutured in place using seven 5-0 nylon sutures. The sutures have been removed during previous visits. At thistime, it is evident that a large portion of the avulsion flap, which had been repositioned and sutured in place, is now necrotic and nonviable. The nonviableportion of the wound is located centrally. Peripherally, there appears to be evidence of epithelialization. There is no sign ofinfection or cellulitis. Nosignificant swelling or edema are noted. Neuro oriented x3, CN's II-XII intact bilaterally, moves all extremities, no focal motor deficits and no sensory deficits noted Sensorium / Orientation: awake, alert, oriented to person, oriented to place andoriented to time Psych Appearance: grossly normal and appropriate Attitude: calm Activity / Motor Behavior: appropriate eye contact Speech: normal speech Mood & Affect: euthymic mood Thought Process: normal thought process Thought Content: normal thought content Attention / Concentration: attention grossly intact Debridement Note Debridement Note Wound debrided: Traumatic avulsion injury of the left medial calf Laterality: Left Type of Debridement: Excisional debridement Anesthesia Used: 5% Lidocaine Gel and Cetacaine Depth: Down to and including healthy tissue and in the subcutaneous layer Percentage of wound debrided: 100 Instrument Used: 5mm curette, Forceps and - (Scissors) Tissue Removed: Necrotic and nonviable tissue; bioburden Severity: Fat Layer Exposed Amount of bleeding with debridement: Mild Bleeding Controlled with: Compression and gauze Patient tolerated procedure: Patient tolerated procedure well Post-Debridement Measurements and Additional Note: Post-Debridement Measurements/Treatment - Nurse 1 - General Ulcer Assessment Start: 01/13/25 13:56 Freq: Status: Active Protocol: NATHALIE Activity Type Activity Date Activity User E-sign Co-sign Detail Recorded Client Recorded Date Recorded By Document 01/13/25 13:59 DL [id number] 01/13/25 14:01 DL Document 01/19/25 13:46 KW [id number] 01/19/25 13:49 KW Document 02/02/25 14:09 [id number] 02/02/25 14:16 01/13/25 01/19/25 02/02/25 13:59 13:46 14:09 - Today's Visit Information Type of service Follow-up Visit Follow-up Visit Follow-up Visit (Physician/DEALERSHIP MANAGER (Physician/DEALERSHIP MANAGER (Physician/DEALERSHIP MANAGER ) ) ) Arrival Mode Ambulatory Ambulatory,Cane Ambulatory,Cane Transfer Assistance None Patient Identification Verified (Name & Yes Yes Yes ) Patient Requires Transmission-Based No No Precautions Height and Weight Body Mass Index (BMI) 19.5 19.5 19.5 BMI Classification Normal Normal Normal Vital Signs Temperature (97.8 F-99.1 F) 97 F L 98.0 F 97.0 F L Temperature Source Temporal Temporal Temporal Pulse Rate (60-100) 83 92 96 Pulse Location Monitor Monitor Monitor Respiratory Rate (12-18) 16 16 18 Respiratory rate source Observation Observation Observation Oxygen Delivery Method Room Air Blood Pressure (90/60-120/80) 103/60 98/54 L 106/66 Blood Pressure Mean 74 68 79 Source Monitor Monitor Monitor Position Semi-Fowlers Semi-Fowlers Blood Pressure Location Left Arm Right Arm History Since Last Visit- (Skip if this is Patient's initial visit) Have you changed medications since your No No Yes last visit? Any new allergies or adverse reactions No No No Had a fall/change in ADL's that may No No No increase risk of falls Signs or symptoms of abuse and/or No No No neglect since last visit Have you been in the hospital since your No No No last visit? Has dressing in place as prescribed Yes Yes Yes Has compression in place as prescribed Yes Yes Yes Has offloadiing in place as prescribed Yes N/A N/A Experienced any changes in pain level or No No No management Left Footwear Regular Shoe Regular Shoe Right Footwear Regular Shoe Regular Shoe Pain Scale: 0-10 Numeric Is Patient Pain Free? Yes Yes Yes WC - Nurse 1 - General Ulcer Measurement Start: 01/13/25 13:56 Freq: Status: Active Protocol: Activity Type Activity Date Activity User E-sign Co-sign Detail Recorded Client Recorded Date Recorded By Document 01/13/25 13:59 DL [id number] 01/13/25 14:01 DL Document 01/19/25 13:46 KW [id number] 01/19/25 13:49 KW Document 02/02/25 14:09 [id number] 02/02/25 14:16 01/13/25 01/19/25 02/02/25 13:59 13:46 14:09 Wound Center Nurse 1 #1 LT MED LE -Combined with other wound No -Current Size (cm) - Length 0.1 0.1 1.8 -Current Size (cm) - Width 0.1 0.1 3.0 -Current Size (cm) - Depth 0.1 0 0.1 -Total Square Cm 0.01 0.01 5.40 -Date of Last Picture (Recall this 01/19/25 field) -Photo Taken Yes -Epithelialization Small 1-33% -Tunneling No -Circular Undermining No -Exudate Amt None Present Small Small -Exudate Type Serosanguineous Serosanguineous -Wound Margin Indistinct, Non Flat & Intact Flat & Intact -Visible -Granulation Amt None Present (0 Small (1-33%) %) -Granulation Quality Pale -Slough/Fibrin Yes -Necrosis Amt Small (1-33%) Medium (34-66%) -Necrotic Tissue Type Adherent Slough Adherent Slough -Structure Exposed N/A N/A -Texture (Maylin-wound Skin Appearance) Scarring Assessed Assessed, Localized Edema -Moisture (Maylin-wound Skin Appearance) No Abnormality Assessed Assessed,Dry/ Scaly -Color (Maylin-wound Skin Appearance) No Abnormality Assessed, Assessed Ecchymosis -Temperature (Maylin-wound Skin No Abnormality No Abnormality No Abnormality Appearance) (Pt Warm) (Pt Warm) (Pt Warm) -Tenderness on Palpation (Maylin-wound No No No Skin Appearance) -Ulcer Cleansing Rinsed/ Rinsed/ Rinsed/ Irrigated with Irrigated with Irrigated with Saline Saline Saline -Foul Odor after Cleansing No No No -Anesthetic Used 5% Lidocaine Gel -Wound Comment(s) Skin tear/ sutures intact sutures intact. Lower Limb Edema Present Yes Left Calf (cm) 34 Left Ankle (cm) 17 - Nurse 2 - General Ulcer CM Notes Start: 01/13/25 13:56 Freq: Status: Active Protocol: Activity Type Activity Date Activity User E-sign Co-sign Detail Recorded Client Recorded Date Recorded By Document 01/13/25 14:27 [id number] 01/13/25 14:29 Document 01/19/25 14:01 [id number] 01/19/25 14:02 Document 02/02/25 14:25 DS [id number] 02/02/25 14:30 DS 01/13/25 01/19/25 02/02/25 14:27 14:01 14:25 Wound Center Nurse 2 #1 LT MED LE -Time 14:27 14:25 -Correct Patient Yes Yes Yes -Correct Side, Site, Position Yes No Yes -Correct Procedure No No Yes -Procedure Performed No No Yes -Type of Procedure Debridement -Clinical Debridement Subcutaneous -Tissue Removed Subcutaneous -Post Debridement (cm) - Length 0.1 1.7 -Post Debridement (cm) - Width 0.1 0.8 -Post Debridement (cm) - Depth 0.1 0.1 -Total Square (Post) (cm) 0.01 1.36 -Area of Debridement (cm) - Length 0.1 1.7 -Area of Debridement (cm) - Width 0.1 0.8 -Total Square (Area) (cm) 0.01 1.36 -Tunneling No -Undermining/Tunneling No -Circular Undermining No No -Wound/Ulcer Outcome Not Healed Not Healed -Ulcer Cleansing Rinsed/ Irrigated with Saline -Foul Odor after Cleansing No No -Bioengineered Tissue No No -Bleeding Controlled with NA Pressure -Treatment Response Procedure Tolerated Well -Debridement - Subq, 1st 20sq cm Yes -Wound Comment(s) sutures intact Pain Scale: 0-10 Numeric Is Patient Pain Free? Yes Yes Yes - Nurse 3 - General Ulcer D/C NN Start: 01/13/25 13:56 Freq: Status: Active Protocol: Activity Type Activity Date Activity User E-sign Co-sign Detail Recorded Client Recorded Date Recorded By Document 01/13/25 14:38 [facility] [id number] 01/13/25 14:38 [facility] Document 01/19/25 14:10 KW [id number] 01/19/25 14:10 KW Document 02/02/25 14:45 DS [id number] 02/02/25 14:45 DS 01/13/25 01/19/25 02/02/25 14:38 14:10 14:45 Wound Care Center Nurse 3 #1 LT MED LE -Ulcer Cleansing Rinsed/ Irrigated with Saline -Foul Odor after Cleansing No -Primary Dressing Applied NonAdherent NonAdherent Aquacel Extra Contact Layer Contact Layer -Primary Dressing Covered/Secured with Dry Gauze & Dry Gauze & Dry Gauze & Roll Gauze, Roll Gauze, Roll Gauze, Secured with Secured with Secured with Tape Tape Tape -Aquacel Extra 1 LLE -Compression Wrap John Wrap Treatment Response Procedure Tolerated Well Pain Scale: 0-10 Numeric Is Patient Pain Free? Yes Yes Yes - Visit Discharge Discharge Condition Stable Stable Stable Ambulatory Status Ambulatory,Cane Ambulatory,Cane Ambulatory Transportation Private Auto Private Auto Private Auto Medication Reconcilliation completed & No provided to patient/care provider Clinical Summary of Care Provided Yes Charges/Coding Procedures Integumentary [id number]: [id number] Esha subq tissue 20 sq cm/< Assessment/Plan Assessment/Plan (1) Non-pressure chronic ulcer of left calf with fat layer exposed: CODE(S): L97.222 - Non-pressure chronic ulcer of left calf with fat layer exposed (2) Traumatic open wound of lower leg: CODE(S): S81.809A - Unspecified open wound, unspecified lower leg, initialencounter QUALIFIERS: Encounter type: subsequent encounter Laterality: left Qualified Code(s): S81.802D - Unspecified open wound, left lower leg, subsequent encounter (3) Avulsion injury: CODE(S): T14.8XXA - Other injury of unspecified body region, initial encounter (4) S/P ORIF (open reduction internal fixation) fracture: CODE(S): Z96.7 - Presence of other bone and tendon implants; Z87.81 - Personal history of (healed) traumatic fracture (5) S/P ORIF (open reduction internal fixation) fracture: CODE(S): Z98.890 - Other specified postprocedural states; Z87.81 - Personal history of (healed) traumatic fracture (6) History of surgery on wrist: CODE(S): Z98.890 - Other specified postprocedural states (7) History of cataract surgery: CODE(S): Z98.49 - Cataract extraction status, unspecified eye (8) History of ankle surgery: CODE(S): Z98.890 - Other specified postprocedural states (9) Hypothyroidism: CODE(S): E03.9 - Hypothyroidism, unspecified QUALIFIERS: Hypothyroidism type: acquired Qualified Code(s): E03.9 - Hypothyroidism, unspecified (10) Raynaud phenomenon: CODE(S): I73.00 - Raynaud's syndrome without gangrene QUALIFIERS: Raynaud?s-associated gangrene presence: without gangrene Qualified Code(s): I73.00 - Raynaud's syndrome without gangrene (11) Osteoporosis: CODE(S): M81.0 - Age-related osteoporosis without current pathological fracture (12) Fwgs-bmyr-edjqeuiwuchgkbx: 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 The injury occurred when thepatient's dog traumatized her leg with its nails. Immediately following her injury, the patient presented to the [facility] Emergency Department, where the avulsion flap was repositioned and sutured in place. As of today's visit, the central portion of the traumatic flap has now necrosed, and is no longer viable. This portion of the wound has been debrided in the Wound Center today. It is now a full-thickness ulceration, extending down into the subcutaneous tissues. We are to implement the use of Aquacel extra topically, which will be moistened at the time of application. The patient has been instructed in the appropriate means of application. Mild compression is oumar applied by means of an John wrap, which will be applied on a daily basis. Sheis to return in 1 week for reassessment. The patient has been advised tooptimize her nutritional intake. Total time: 25 minutes 02/02/25 2283 Cosigner Signature (if applicable): CC: ~ Signed [facility]05-27-2025 Evaluation note* Diagnosis Onset Date Resolution Status Admit Date Avulsion injury acute February 02, 2025 2:00pm History of ankle surgery acute February 02, 2025 2:00pm History of cataract surgery acute February 02, 2025 2:00pm History of surgery on wrist acute February 02, 2025 2:00pm Fdar-jqdv-ghokquzntfbyyoo acute February 02, 2025 2:00pm S/P ORIF (open reduction internal fixation) fracture acute February 02, 2025 2:00pm Traumatic open wound of lowe r leg acute February 02, 2025 2 :00pm Hypothyroidism chronic February 02, 2025 2:00pm 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 February 02, 2025 2:00pm Osteoporosis chronic February 02 2:00pm Raynaud phenomenon chronic February [id number] 2:00pm S/P ORIF (open reduction internal fixation) fracture chronic February 02, 2025 2:00pm Avulsion injury acute February 1:30pm History of ankle surgery acute March 02, 2025 1:30pm History of cataract surgery acute March 02, 2025 1:30pm History of surgery on wrist acute March 02, 2025 1:30pm Zthj-wgba-hbgojyacthcjzmu acute March 02, 2025 1:30pm S/P ORIF (open reduction internal fixation) fracture acute March 02, 2025 1:30pm Traumatic open wound of lowe r leg acute March 02, 2025 1:30pm Hypothyroidism chronic March 02, 2025 1:30pm 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 March 02, 2025 1:30pm Osteoporosis chronic March 02, 025 1:30pm Raynaud phenomenon chronic February 082024 1:30pm S/P ORIF (open reduction internal fixation) fracture chronic March 02, 2025 1:30pm Avulsion injury acute March 1:15pm History of ankle surgery acute March 30, 2025 1:15pm History of cataract surgery acute March 30, 2025 1:15pm History of surgery on wrist acute March 30, 2025 1:15pm Sptg-boun-avgvwemeexvoqno acute March 30, 2025 1:15pm S/P ORIF (open reduction internal fixation) fracture acute March 30, 2025 1:15pm Traumatic open wound of lowe r leg acute March 30, 2025 1:15pm Hypothyroidism chronic March 30, 2025 1:15pm 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 March 30, 2025 1:15pm Non-pressure chronic ulcer o f right calf with fat layer exposed chronic March 30, 2025 1:15pm Osteoporosis chronic March 30 025 1:15pm Raynaud phenomenon chronic March [id number] 1:15pm S/P ORIF (open reduction internal fixation) fracture chronic March 30, 2025 1:15pm History of ankle surgery acute May 04, 2025 1:00pm History of cataract surgery acute May 04, 2025 1:00pm History of surgery on wrist acute May 04, 2025 1:00pm Vmhr-eqtv-hctglxauhgcpnsz acute May 04, 2025 1:00pm S/P ORIF (open reduction internal fixation) fracture acute 2024 1:00pm Traumatic open wound of lowe r leg acute May 04 1:00pm Hypothyroidism chronic April 1:00pm Non-pressure chronic ulcer o f right calf with fat layer exposed chronic [place] [address] 1:00pm Osteoporosis chronic May 04, 2025 1:00pm Raynaud phenomenon chronic May 04, 2025 1:00pm S/P ORIF (open reduction internal fixation) fracture chronic Augu st 2024 1:00pm [facility] Work Phone: [phone] 647-108305-23-2025 NoteHNO ID: [id number] Author: MALACHI LILLY APRN.DEALERSHIP MANAGER Service: ? Author Type: Nurse Practitioner Type: Progress Notes Filed: 01/29/2025 12:29 Note Text: SUBJECTIVE Geraldine Hairston is a 74 year old female here today for a check up on her medical problems. Chief Complaint Patient presents with: F/U 6 Month: L lower wound, being seen by Wound Center. EUSEBIA Chandler is a 74-year-old female with a history of anxiety, depression, and osteoporosis, presenting for follow-up. Geraldine reports a recent increase in anxiety and depression, which she attributes to spending more time at home and a recent bereavement in the family. She describes feeling "really, really anxious" during a recent visit to her 's brother's house on Mother's Day, noting that the anxiety persisted from the time she got in the car until she returned home. She believes that her 's reluctance to go places and her own increased time at home may be contributing factors. She also reports feeling a lot of empathy for her cousin, whose recently , stating, "It's almost like it happened to me, but it didn't." She has been trying to keep in touch with her cousins, calling them at least once a month, and has gotten closer to them recently. Geraldine has been seeing a therapist, who she spoke with yesterday. She reports that her therapist had an emergency and was unable to see her for about 4 weeks, which she believes may have contributed to her increased anxiety and depression. She notes that her therapist thinks her 's behavior and her increased time at home may be contributing to her anxiety. She also reports that her therapist told her to start exercising, which she has been doing intermittently. She expresses a desire to get back into exercising but is currently focused on healing a wound on her leg. Geraldine reports a recent injury to her leg, which occurred when her dog jumped off the couch and caused a wound. She went to the ER, where she was referred to the wound center. She had an appointment with the wound center on Saturday, where she was told that the wound is in the form of a triangle, referred to as a "flap," and that part of it may and need to be removed. She is currently focused on healing the wound and is hesitant to push herself too hard physically. Seeing Dr. Gibbons with [facility] wound center. Geraldine also reports a persistent cough, sometimes productive, and congestion in the mornings. She uses a saline nasal spray as needed, which she finds helpful. She has a history of osteoporosis and is interested in starting weight lifting in the future. She has a home gym in her basement but is not yet ready to start using it. She inquires whether weight lifting could improve her osteoporosis. Recent lab results from December show normal thyroid function, magnesium levels, and blood counts. Her potassium level was slightly low at 3.3, and her vitamin D level was high at 100, down from a previous level of 113. Her cholesterol levels were stable. Her medications were reviewed today and her list is now up to date. Medications Current Outpatient Medications Medication Sig gabapentin (NEURONTIN) 600 mg tablet Take 1 tablet by mouth two times a day. levothyroxine (SYNTHROID) 25 mcg tablet Take 1 tablet by mouth daily before breakfast. NIFEdipine ER (PROCARDIA XL) 30 mg 24 hr tablet Take 6 tablets by mouth once daily. Adjust as direceted naproxen (NAPROSYN) 500 mg tablet Take 1 tablet by mouth two times a day as needed (for pain/inflammation). Take with food. lidocaine (LIDODERM) 5 % Apply to the right rib cage once a day as needed, wear for 12 hours and then remove. famotidine (PEPCID) 40 mg tablet Take 1 tablet by mouth once daily. atorvastatin (LIPITOR) 20 mg tablet Take 20 mg by mouth daily at bedtime. omeprazole (PRILOSEC) 40 mg capsule Take 1 capsule by mouth once daily. (Dr. Swan--GI)--insurance would not cover 40 mg twice daily dicyclomine (BENTYL) 20 mg tablet Take 1 tablet by mouth three times daily. (Dr. Swan prescribing) budesonide, enteric coated (ENTOCORT EC) 3 mg 24 hr capsule Take 3 capsules by mouth once daily. (Dr. John Swan) Calcium-Cholecalciferol, D3, (CALCIUM 600 + D) 600-125 mg-unit tab Take 1 tablet by mouth twice daily. aspirin, enteric coated (ASPIRIN, ENTERIC COATED) 325 mg EC tablet Take 1 tablet by mouth once daily. PARoxetine (PAXIL) 30 mg tablet Take 2.5 tablets by mouth once daily. (from psychiatrist) busPIRone HCl (BUSPAR) 30 mg tablet Take 1 tablet by mouth twice daily. (Gets from psychiatrist now) LORazepam 0.5 mg Tab Take 1 tablet by mouth three times daily as needed. Prescribing Dr: Keely Moore MD DAILY MULTIVITAMIN TAB IMODIUM A-D 2 MG TAB Take 2 mg by mouth as needed (When needed). METAMUCIL SMOOTH TEXTURE PACKET one tablespoon in the am with a full glass of water and one tablespoon again in the pm again with a full glass of water d (more content not included)...[facility]05-21-2025 NoteHNO ID: [id number] Author: MANJU NG MA Service: ? Author Type: Senior Director Creative Services Type: Progress Notes Filed: 01/27/2025 09:24 Note Text: POPULATION HEALTH NAVIGATION OUTREACH Action/FYI Contacted patient to schedule HCC care gaps and health maintenance. 1st attempt: Left message with my direct number 2nd attempt: My Chart message sent Topic Due (Y or N) Comments Annual Wellness Exam Yes PCP Follow up No Colorectal Cancer Screening Yes A1C No HTN/Controlling BP No HCC Yes Updated appointment notes No Reason for Outreach Care Gap/HCC or Scheduling Wellness Visits Care Gaps due: Medicare Annual Wellness Visit Colorectal Cancer Screening Patient Contacted: Unable or unnecessary to reach patient: Left message [employer] message sent HCC related Navigation Signature: Manju Ng MA January 27, 2025 9:23 [facility]05-21-2025 NotePatient Outreach (NETNAV) GERALDINE HAIRSTON ([id number]) 1950 F Date Time Provider Department 01/27/25 MANJU NG NETCAROL ANNV During your visit today, we recorded the following information about you: Manju Ng MA 01/27/2025 9:24 AM Signed POPULATION HEALTH NAVIGATION OUTREACH Action/FYI Contacted patient to schedule HCC care gaps and health maintenance. 1st attempt: Left message with my direct number 2nd attempt: My Chart message sent Topic Due (Y or N) Comments Annual Wellness Exam Yes PCP Follow up No Colorectal Cancer Screening Yes A1C No HTN/Controlling BP No HCC Yes Updated appointment notes No Reason for Outreach Care Gap/HCC or Scheduling Wellness Visits Care Gaps due: Medicare Annual Wellness Visit Colorectal Cancer Screening Patient Contacted: Unable or unnecessary to reach patient: Left message MyChart message sent HCC related Navigation Signature: Manju Ng MA January 27, 2025 9:23 AM Allergies As of Date: 01/27/2025 Noted Allergy Reaction CODEINE 06/06/2005 Comments: Nausea,dizziness PERCOCET (OXYCODONE-ACETAMINOPHEN)06/06/2005 Comments: nausea, dizziness Date Reviewed: 07/27/2024 Reviewed by: Beth Linda LPN - Fully Assessed Reason for Visit: Population Health Navigation Outreach [3910] Cmt: Adarsh/Workbench/ACO Prescriptions as of 01/27/2025 - gabapentin (NEURONTIN) 600 mg tablet Take 1 tablet by mouth two times a day. - levothyroxine (SYNTHROID) 25 mcg tablet Take 1 tablet by mouth daily before breakfast. - NIFEdipine ER (PROCARDIA XL) 30 mg 24 hr tablet Take 6 tablets by mouth once daily. Adjust as direceted - naproxen (NAPROSYN) 500 mg tablet Take 1 tablet by mouth two times a day as needed (for pain/inflammation). Take with food. - lidocaine (LIDODERM) 5 % Apply to the right rib cage once a day as needed, wear for 12 hours and then remove. - famotidine (PEPCID) 40 mg tablet Take 1 tablet by mouth once daily. - atorvastatin (LIPITOR) 20 mg tablet Take 20 mg by mouth daily at bedtime. - omeprazole (PRILOSEC) 40 mg capsule Take 1 capsule by mouth once daily. (Dr. Swan--GI)--insurance would not cover 40 mg twice daily - dicyclomine (BENTYL) 20 mg tablet Take 1 tablet by mouth three times daily. (Dr. Swan prescribing) - budesonide, enteric coated (ENTOCORT EC) 3 mg 24 hr capsule Take 3 capsules by mouth once daily. (Dr. John Swan) - Calcium-Cholecalciferol, D3, (CALCIUM 600 + D) 600-125 mg-unit tab Take 1 tablet by mouth twice daily. - aspirin, enteric coated (ASPIRIN, ENTERIC COATED) 325 mg EC tablet Take 1 tablet by mouth once daily. - PARoxetine (PAXIL) 30 mg tablet Take 2.5 tablets by mouth once daily. (from psychiatrist) - busPIRone HCl (BUSPAR) 30 mg tablet Take 1 tablet by mouth twice daily. (Gets from psychiatrist now) - LORazepam 0.5 mg Tab Take 1 tablet by mouth three times daily as needed. Prescribing Dr: Keely Moore MD - DAILY MULTIVITAMIN TAB - IMODIUM A-D 2 MG TAB Take 2 mg by mouth as needed (When needed). - METAMUCIL SMOOTH TEXTURE PACKET one tablespoon in the am with a full glass of water and one tablespoon again in the pm again with a full glass of water daily. - SALINE MIST 0.65 % NASAL SPRAY AEROSOL Two sprays each nostril twice daily. Problem List As Of Date 01/27/2025 Noted Resolved REG ENTERITIS, LG INTEST [K50.10] 06/06/2005 IRRITABLE COLON [K58.9] 06/06/2005 Osteoporosis [M81.0] 06/06/2005 Anxiety state [F41.1] 06/06/2005 Depression [F32.A] 06/06/2005 CARPAL TUNNEL SYNDROME [G56.00] 06/04/2006 BRONCHITIS PERIODIC [J20.9] 10/10/2006 12/31/2023 Melanocytic Nevus: post scalp AND nape/neck: IDN *06/27/2010 Seborrheic Keratosis [L82.1] 06/27/2010 Solar lentigo [L81.4] 06/27/2010 Actinic Damage///Sun-damaged skin [L57.8] 06/27/2010 GERD (gastroesophageal reflux disease) [K21.9] 08/01/2010 Sinus congestion [R09.81] 09/12/2013 12/31/2023 Hypothyroidism [E03.9] 01/29/2014 Abnormal mammogram, unspecified [R92.8] 12/30/2014 Raynauds syndrome [I73.00] Chronic right shoulder pain [M25.511, G89.29] 07/27/2019 Gait instability [R26.81] 07/17/2024 Encounter Status:Closed by MANJU NG on 01/27/25[facility] 01-19-2025 History and physical note Author Cedric Gibbons [facility] Note Date/Time January 19, 2025 7:13p m [facility] [address] [place] [address] H&P Exam - Wound Care 01/19/25 1900 MR#: [id number] Acct: [id number] Name: GERALDINE HAIRSTON Rep #:[id number] 28 : 1950 74 From: Cedric Worthington PCP: Dr. Chance Kolb MD Status:RE G RCR Location: History of Present Illness Date of Service: 01/19/25 Chief Complaint: Traumatic avulsion injury of the left medial calf History of Wound: This is a 74-year-old female who sustained a traumatic injury to her left medial calf on January 01, 2025. At the time of her injury, she presented to the [facility] Emergency Department, where she was found to have an avulsion injury with a significant adherent cutaneous flap. The injury was caused by the nails of her dog, who had jumped off the couch. Inthe Emergency Department, the flap was sutured in place using seven 5-0 nylon sutures. The patient was placed on Keflex and Augmentin orally, and was discharged. The patient is generally healthy for her age, though has a history of iobp-hryf-tpoufrrqjhnwgps, GERD, hypertension, hypothyroidism, and osteoporosis. She denies a history of diabetes mellitus, myocardial infarction,cerebrovascular accident, renal disease, and pulmonary disease. Her BMI is 19.5. She is . [facility] Medical History Traumatic open wound of lower leg Avulsion injury GERD (gastroesophageal reflux disease) HTN (hypertension) Hypothyroidism Depression Anxiety Home Medications ?Medication ?Instructions ?Recorded ?Last Taken ?Type levothyroxine 25 mcg tablet 25 mcg PO DAILY Check with primary 02/07/15 09/29/16 09:00 History doctor Bacillus coagulans-inulin 1 1 ea PO DAILY Check with p skye 12/07/15 09/29/16 09:00 History billion cell-250 mg capsule doctor (Probiotic Formula (inulin)) gabapentin 100 mg capsule 600 mg PO BID Check with loretta mcmillan 12/07/15 09/29/16 21:00 History doctor nifedipine 60 mg tablet,extended 180 mg PO DAILY Check with primary 12/07/15 09/29/16 09:00 History release 24 hr doctor pantoprazole 20 mg tablet,delayed 20 mg PO DAILY [facility] 12/07/15 09/29/16 09:00 History release paroxetine HCl 25 mg 75 mg PO DAILY depression 09/29/16 09:00 History tablet,extended release 24 hr (Paxil CR) aspirin 325 mg tablet,delayed 325 mg PO DAILY HEART 09/29/16 09:00 History release buspirone 5 mg tablet 30 mg PO BID Check with prim lesley 04/26/16 09/29/16 21:00 History doctor budesonide 3 mg 9 mg PO DAILY Check with loretta mcmillan 09/30/16 Unknown History capsule,delayed,extended release doctor (Sixto WHITLOCK) lorazepam 0.5 mg tablet 0.5 mg PO Q6H PRN PRN Anxiet y ##10 10/03/16 Unknown Rx dicyclomine 20 mg tablet 20 mg PO TID Check with prim lesley 09/02/22 Unknown History doctor Metamucil Check with primary doctor Unknown History food supplemt, lactose-reduced 120 ml PO 4X/DAY Check with 09/07/22 Unknown History 0.08 gram-1.5 kcal/mL oral liquid primary doctor (Ensure Enlive) loperamide 2 mg tablet 2 mg PO Q6H PRN Constipation 09/07/22 Unknown History omeprazole 40 mg PO/SL DAILY Check with 09/07/22 Unknown History primary doctor atorvastatin 80 mg tablet 20 mg (1/4 x 80 mg) PO QHS # 30 tabs 09/08/22 Unknown Rx cephalexin 500 mg capsule 500 mg PO BID #12 caps 09/08 Unknown Rx amoxicillin 875 mg-potassium 875 mg (0.875 x 875-125 m g) PO 04/29/23 Unknown Rx clavulanate 125 mg tablet Q12H #10 TABLETS Allergy/AdvReac Type Severity Reaction Status Date / Time acetaminophen (From Percocet) Allergy Other Verified 01/06/25 14:05 oxycodone (From Percocet) Allergy Other Verified 01/06/25 14:05 codeine AdvReac Nausea & Verified 01/06/25 14:05 dizziness oxycodone HCl (From Percocet) AdvReac Nausea & Verified 01/06/25 14:05 dizziness Family History Father Diabetes Dementia Surgical History S/P ORIF (open reduction internal fixation) fracture History of surgery on wrist History of cataract surgery History of ankle surgery Social History household members: none Smoking Status: Never smoker substance use type: does not use Vital Signs Vital Signs Vital Signs: 01/19/25 13:46 Temperature 98.0 F Temperature Source Temporal Pulse Rate 92 Respiratory Rate 16 Blood Pressure 98/54 L Blood Pressure Mean 68 Blood Pressure Source Monitor Blood Pressure Position Semi-Fowlers Blood Pressure Location Left Arm Oxygen Delivery Method Room Air Weight Weight: 95 lb Body Mass Index (BMI) 19.5 Physical Exam Const alert, oriented x3, no apparent distress, average body habitus and well nourished Constitutional Narrative: The patient's BMI is 19.5. General Appearance: cooperative, comfortable, well kempt and well developed Orientation / Consciousness: awake, oriented to person, oriented to place and oriented to time Exam Limitations: no limitations HEENT normocephalic and head/scalp atraumatic Head and Scalp: normal to inspection, normocephalic and atraumatic Face and Sinus: normal facial exam Nose: external nose normal External Ear: external ears normal Eyes EOMs intact bilaterally General Eye: normal appearance of both eyes Neck full ROM Resp normal respiratory effort, normal air movement, no retractions and no use of accessory muscles Effort and Inspection: able to speak in complete sentences Extremity no calf tenderness General Extremity: Negative for clubbing or cyanosis Skin Wound Narrative: A traumatic wound is noted on the patient's left medial calf. It appears to be an avulsion injury, with a resultant flap of skin. At the time of the patient'sEmergency Department visit, the flap was repositioned, and sutured in place using seven 5- 0 nylon sutures. The avulsion flap remains in place, as well as some of the approximating sutures. Skin edges appear to be well-approximated. There is no sign of infection or cellulitis. However, the avulsion flap appearsto be somewhat dusky and ecchymotic, with question of ischemia. Neuro oriented x3, CN's II-XII intact bilaterally, moves all extremities, no focal motor deficits and no sensory deficits noted Sensorium / Orientation: awake, alert, oriented to person, oriented to place andoriented to time Psych Appearance: grossly normal and appropriate Attitude: calm Activity / Motor Behavior: appropriate eye contact Speech: normal speech Mood & Affect: euthymic mood Thought Process: normal thought process Thought Content: normal thought content Attention / Concentration: attention grossly intact Debridement Note Debridement Note Debridement Free Text: No debridement was performed, though the remaining sutures were removed from the patient's left calf traumatic injury. Post-Debridement Measurements and Additional Note: Post-Debridement Measurements/Treatment - Nurse 1 - General Ulcer Assessment Start: 01/13/25 13:56 Freq: Status: Active Protocol: WC.LOWJEREMIAH Activity Type Activity Date Activity User E-sign Co-sign Detail Recorded Client Recorded Date Recorded By Document 01/13/25 13:59 DL [id number] 01/13/25 14:01 DL Document 01/19/25 13:46 KW [id number] 01/19/25 13:49 KW 01/13/25 01/19/25 13:59 13:46 - Today's Visit Information Type of service Follow-up Visit Follow-up Visit (Physician/DEALERSHIP MANAGER (Physician/DEALERSHIP MANAGER ) ) Arrival Mode Ambulatory Ambulatory,Cane Transfer Assistance None Patient Identification Verified (Name & Yes Yes ) Patient Requires Transmission-Based No Precautions Height and Weight Body Mass Index (BMI) 19.5 19.5 BMI Classification Normal Normal Vital Signs Temperature (97.8 F-99.1 F) 97 F L 98.0 F Temperature Source Temporal Temporal Pulse Rate (60-100) 83 92 Pulse Location Monitor Monitor Respiratory Rate (12-18) 16 16 Respiratory rate source Observation Observation Oxygen Delivery Method Room Air Blood Pressure (90/60-120/80) 103/60 98/54 L Blood Pressure Mean 74 68 Source Monitor Monitor Position Semi-Fowlers Blood Pressure Location Left Arm History Since Last Visit- (Skip if this is Patient's initial visit) Have you changed medications since your No No last visit? Any new allergies or adverse reactions No No Had a fall/change in ADL's that may No No increase risk of falls Signs or symptoms of abuse and/or No No neglect since last visit Have you been in the hospital since your No No last visit? Has dressing in place as prescribed Yes Yes Has compression in place as prescribed Yes Yes Has offloadiing in place as prescribed Yes N/A Experienced any changes in pain level or No No management Left Footwear Regular Shoe Right Footwear Regular Shoe Pain Scale: 0-10 Numeric Is Patient Pain Free? Yes Yes WC - Nurse 1 - General Ulcer Measurement Start: 01/13/25 13:56 Freq: Status: Active Protocol: Activity Type Activity Date Activity User E-sign Co-sign Detail Recorded Client Recorded Date Recorded By Document 01/13/25 13:59 DL [id number] 01/13/25 14:01 DL Document 01/19/25 13:46 KW [id number] 01/19/25 13:49 KW 01/13/25 01/19/25 13:59 13:46 Wound Center Nurse 1 #1 LT MED LE -Current Size (cm) - Length 0.1 0.1 -Current Size (cm) - Width 0.1 0.1 -Current Size (cm) - Depth 0.1 0 -Total Square Cm 0.01 0.01 -Date of Last Picture (Recall this 01/19/25 field) -Exudate Amt None Present Small -Exudate Type Serosanguineous -Wound Margin Indistinct, Non Flat & Intact -Visible -Granulation Amt None Present (0 %) -Necrosis Amt Small (1-33%) -Necrotic Tissue Type Adherent Slough -Structure Exposed N/A -Texture (Maylin-wound Skin Appearance) Scarring Assessed -Moisture (Maylin-wound Skin Appearance) No Abnormality Assessed -Color (Maylin-wound Skin Appearance) No Abnormality Assessed, Ecchymosis -Temperature (Maylin-wound Skin No Abnormality No Abnormality Appearance) (Pt Warm) (Pt Warm) -Tenderness on Palpation (Maylin-wound No No Skin Appearance) -Ulcer Cleansing Rinsed/ Rinsed/ Irrigated with Irrigated with Saline Saline -Foul Odor after Cleansing No No -Wound Comment(s) Skin tear/ sutures intact sutures intact. WC - Nurse 2 - General Ulcer CM Notes Start: 01/13/25 13:56 Freq: Status: Active Protocol: Activity Type Activity Date Activity User E-sign Co-sign Detail Recorded Client Recorded Date Recorded By Document 01/13/25 14:27 [id number] 01/13/25 14:29 Document 01/19/25 14:01 JF [id number] 01/19/25 14:02 JF 01/13/25 01/19/25 14:27 14:01 Wound Center Nurse 2 #1 LT MED LE -Time 14:27 -Correct Patient Yes Yes -Correct Side, Site, Position Yes No -Correct Procedure No No -Procedure Performed No No -Post Debridement (cm) - Length 0.1 -Post Debridement (cm) - Width 0.1 -Post Debridement (cm) - Depth 0.1 -Total Square (Post) (cm) 0.01 -Area of Debridement (cm) - Length 0.1 -Area of Debridement (cm) - Width 0.1 -Total Square (Area) (cm) 0.01 -Circular Undermining No -Wound/Ulcer Outcome Not Healed -Foul Odor after Cleansing No -Bioengineered Tissue No -Bleeding Controlled with NA -Wound Comment(s) sutures intact Pain Scale: 0-10 Numeric Is Patient Pain Free? Yes Yes - Nurse 3 - General Ulcer D/C NN Start: 01/13/25 13:56 Freq: Status: Active Protocol: Activity Type Activity Date Activity User E-sign Co-sign Detail Recorded Client Recorded Date Recorded By Document 01/13/25 14:38 [facility] [id number] 01/13/25 14:38 [facility] Document 01/19/25 14:10 KW [id number] 01/19/25 14:10 KW 01/13/25 01/19/25 14:38 14:10 Wound Care Center Nurse 3 #1 LT MED LE -Ulcer Cleansing Rinsed/ Irrigated with Saline -Foul Odor after Cleansing No -Primary Dressing Applied NonAdherent NonAdherent Contact Layer Contact Layer -Primary Dressing Covered/Secured with Dry Gauze & Dry Gauze & Roll Gauze, Roll Gauze, Secured with Secured with Tape Tape LLE -Compression Wrap John Wrap Treatment Response Procedure Tolerated Well Pain Scale: 0-10 Numeric Is Patient Pain Free? Yes Yes WC - Visit Discharge Discharge Condition Stable Stable Ambulatory Status Ambulatory,Cane Ambulatory,Cane Transportation Private Auto Private Auto Medication Reconcilliation completed & No provided to patient/care provider Clinical Summary of Care Provided Yes Charges/Coding Visit Charges Office Visits / Consults: 94151 OV L3 Est 20min Assessment/Plan Assessment/Plan (1) Traumatic open wound of lower leg: CODE(S): S81.809A - Unspecified open wound, unspecified lower leg, initialencounter QUALIFIERS: Encounter type: subsequent encounter Laterality: left Qualified Code(s): S81.802D - Unspecified open wound, left lower leg, subsequent encounter (2) Avulsion injury: CODE(S): T14.8XXA - Other injury of unspecified body region, initial encounter (3) S/P ORIF (open reduction internal fixation) fracture: CODE(S): Z96.7 - Presence of other bone and tendon implants; Z87.81 - Personal history of (healed) traumatic fracture (4) S/P ORIF (open reduction internal fixation) fracture: CODE(S): Z98.890 - Other specified postprocedural states; Z87.81 - Personal history of (healed) traumatic fracture (5) History of surgery on wrist: CODE(S): Z98.890 - Other specified postprocedural states (6) History of cataract surgery: CODE(S): Z98.49 - Cataract extraction status, unspecified eye (7) History of ankle surgery: CODE(S): Z98.890 - Other specified postprocedural states (8) Hypothyroidism: CODE(S): E03.9 - Hypothyroidism, unspecified QUALIFIERS: Hypothyroidism type: acquired Qualified Code(s): E03.9 - Hypothyroidism, unspecified (9) Raynaud phenomenon: CODE(S): I73.00 - Raynaud's syndrome without gangrene QUALIFIERS: Raynaud?s-associated gangrene presence: without gangrene Qualified Code(s): I73.00 - Raynaud's syndrome without gangrene (10) Osteoporosis: CODE(S): M81.0 - Age-related osteoporosis without current pathological fracture (11) Lyqm-mrei-mskdxgcdfrhelnu: 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 The injury occurred when thepatient's dog traumatized her leg with its nails. Immediately following her injury, the patient presented to the [facility] Emergency Department, where the avulsion flap was repositioned and sutured in place. The flap remains anchored, with skin edges well-approximated. The remaining approximating sutures have been removed today. The patient is to be rescheduled for an appointment in 1 week, at which time the traumatic wound willbe reexamined. The skin flap appears somewhat dusky and ecchymotic, with question as to whether there may be some ischemia. There is question as to whether this flap will survive. In fact, the skin flap may not remain viable, and may ultimately slough, or require debridement/excision. However, thus far, there has been improvement. This matter will be reassessed upon the patient's return visit in 1 week, and thereafter if necessary. The patient has been counseled toprotect the from any avoidable trauma. She has been advised to optimize her nutritional intake. Total time: 24 minutes 01/19/251912 <Electronically signed by Cedric Gibbons MD> Cosigner Signature (if applicable): CC: ~ Signed [facility] Work Phone: [phone] 409-172405-13-2025 History and physical note [facility] [address] [place] [id number] H&P Exam - Wound Care 01/19/25 1900 MR#: [id number] Acct: [id number] Name: GERALDINE HAIRSTON Rep #:[id number] 28 : 1950 74 From: Cedric Worthington PCP: Dr. Chance Kolb MD [facility] Location: History of Present Illness Date of Service: 01/19/25 Chief Complaint: Traumatic avulsion injury of the left medial calf History of Wound: This is a 74-year-old female who sustained a traumatic injury to her left medial calf on January 01, 2025. At the time of her injury, she presented to the [facility] Emergency Department, where she was found to have an avulsion injury with a significant adherent cutaneous flap. The injury was caused by the nails of her dog, who had jumped off the couch. Inthe Emergency Department, the flap was sutured in place using seven 5-0 nylon sutures. The patient was placedon Keflex and Augmentin orally, and was discharged. The patient is generally healthy for her age, though has a history of zqdc-lnhh-kyaoyeulbmzmyhg, GERD, hypertension, hypothyroidism, and osteoporosis. She denies a history of diabetes mellitus, myocardial infarction,cerebrovascular accident, renaldisease, and pulmonary disease. Her BMI is 19.5. She is . [facility] Medical History Traumatic open wound of lower leg Avulsion injury GERD (gastroesophageal reflux disease) HTN (hypertension) Hypothyroidism Depression Anxiety Home Medications ?Medication ?Instructions ?Recorded ?Last Taken ?Type levothyroxine 25 mcg tablet 25 mcg PO DAILY Check with primary 02/07/15 09/29/16 09:00 History doctor Bacillus coagulans-inulin 1 1 ea PO DAILY Check with jesus cheung 12/07/15 09/29/16 09:00 History billion cell-250 mg capsule doctor (Probiotic Formula (inulin)) gabapentin 100 mg capsule 600 mg PO BID Check with loretta mcmillan 12/07/15 09/29/16 21:00 History doctor nifedipine 60 mg tablet,extended 180 mg PO DAILY Check with primary 12/07/15 09/29/16 09:00 History release 24 hr doctor pantoprazole 20 mg tablet,delayed 20 mg PO DAILY [facility] 12/07/15 09/29/16 09:00 History release paroxetine HCl 25 mg 75 mg PO DAILY depression 09/29/16 09:00 History tablet,extended release 24 hr (Paxil CR) aspirin 325 mg tablet,delayed 325 mg PO DAILY HEART 09/29/16 09:00 History release buspirone 5 mg tablet 30 mg PO BID Check with jayro sutton 04/26/16 09/29/16 21:00 History doctor budesonide 3 mg 9 mg PO DAILY Check with loretta mcmillan 09/30/16 Unknown History capsule,delayed,extended release doctor (Entocort EC) lorazepam 0.5 mg tablet 0.5 mg PO Q6H PRN PRN Anxiet y ##10 10/03/16 Unknown Rx dicyclomine 20 mg tablet 20 mg PO TID Check with prim lesley 09/02/22 Unknown History doctor Metamucil Check with primary doctor Unknown History food supplemt, lactose-reduced 120 ml PO 4X/DAY Check with 09/07/22 Unknown History 0.08 gram-1.5 kcal/mL oral liquid primary doctor (Ensure Enlive) loperamide 2 mg tablet 2 mg PO Q6H PRN Constipation 09/07/22 Unknown History omeprazole 40 mg PO/SL DAILY Check with 09/07/22 Unknown History primary doctor atorvastatin 80 mg tablet 20 mg (1/4 x 80 mg) PO QHS # 30 tabs 09/08/22 Unknown Rx cephalexin 500 mg capsule 500 mg PO BID #12 caps 09/08 Unknown Rx amoxicillin 875 mg-potassium 875 mg (0.875 x 875-125 m g) PO 04/29/23 Unknown Rx clavulanate 125 mg tablet Q12H #10 TABLETS Allergy/AdvReac Type Severity Reaction Status Date / Time acetaminophen (From Percocet) Allergy Other Verified 01/06/25 14:05 oxycodone (From Percocet) Allergy Other Verified 01/06/25 14:05 codeine AdvReac Nausea & Verified 01/06/25 14:05 dizziness oxycodone HCl (From Percocet) AdvReac Nausea & Verified 01/06/25 14:05 dizziness Family History Father Diabetes Dementia Surgical History S/P ORIF (open reduction internal fixation) fracture History of surgery on wrist History of cataract surgery History of ankle surgery Social History household members: none Smoking Status: Never smoker substance use type: does not use Vital Signs Vital Signs Vital Signs: 01/19/25 13:46 Temperature 98.0 F Temperature Source Temporal Pulse Rate 92 Respiratory Rate 16 Blood Pressure 98/54 L Blood Pressure Mean 68 Blood Pressure Source Monitor Blood Pressure Position Semi-Fowlers Blood Pressure Location Left Arm Oxygen Delivery Method Room Air Weight Weight: 95 lb Body Mass Index (BMI) 19.5 Physical Exam Const alert, oriented x3, no apparent distress, average body habitus and well nourished Constitutional Narrative: The patient's BMI is 19.5. General Appearance: cooperative, comfortable, well kempt and well developed Orientation / Consciousness: awake, oriented to person, oriented to place and oriented to time Exam Limitations: no limitations HEENT normocephalic and head/scalp atraumatic Head and Scalp: normal to inspection, normocephalic and atraumatic Face and Sinus: normal facial exam Nose: external nose normal External Ear: external ears normal Eyes EOMs intact bilaterally General Eye: normal appearance of both eyes Neck full ROM Resp normal respiratory effort, normal air movement, no retractions and no use of accessory muscles Effort and Inspection: able to speak in complete sentences Extremity no calf tenderness General Extremity: Negative for clubbing or cyanosis Skin Wound Narrative: A traumatic wound is noted on the patient's left medial calf. It appears to be an avulsion injury, with a resultant flap of skin. At the time of the patient'sEmergency Department visit, the flap was repositioned, and sutured in place using seven 5-0 nylon sutures. The avulsion flap remains in place, as well as some of the approximating sutures. Skin edges appear to be well- approximated. There is no sign of infection or cellulitis. However, the avulsion flap appearsto be somewhat dusky and ecchymotic, with question of ischemia. Neuro oriented x3, CN's II-XII intact bilaterally, moves all extremities, no focal motor deficits and no sensory deficits noted Sensorium / Orientation: awake, alert, oriented to person, oriented to place andoriented to time Psych Appearance: grossly normal and appropriate Attitude: calm Activity / Motor Behavior: appropriate eye contact Speech: normal speech Mood & Affect: euthymic mood Thought Process: normal thought process Thought Content: normal thought content Attention / Concentration: attention grossly intact Debridement Note Debridement Note Debridement Free Text: No debridement was performed, though the remaining sutures were removed fromthe patient's left calf traumatic injury. Post-Debridement Measurements and Additional Note: Post-Debridement Measurements/Treatment WC - Nurse 1 - General Ulcer Assessment Start: 01/13/25 13:56 Freq: Status: Active Protocol: NATHALIE Activity Type Activity Date Activity User E-sign Co-sign Detail Recorded Client Recorded Date Recorded By Document 01/13/25 13:59 DL [id number] 01/13/25 14:01 DL Document 01/19/25 13:46 KW [id number] 01/19/25 13:49 KW 01/13/25 01/19/25 13:59 13:46 WC - Today's Visit Information Type of service Follow-up Visit Follow-up Visit (Physician/DEALERSHIP MANAGER (Physician/DEALERSHIP MANAGER ) ) Arrival Mode Ambulatory Ambulatory,Cane Transfer Assistance None Patient Identification Verified (Name & Yes Yes ) Patient Requires Transmission-Based No Precautions Height and Weight Body Mass Index (BMI) 19.5 19.5 BMI Classification Normal Normal Vital Signs Temperature (97.8 F-99.1 F) 97 F L 98.0 F Temperature Source Temporal Temporal Pulse Rate (60-100) 83 92 Pulse Location Monitor Monitor Respiratory Rate (12-18) 16 16 Respiratory rate source Observation Observation Oxygen Delivery Method Room Air Blood Pressure (90/60-120/80) 103/60 98/54 L Blood Pressure Mean 74 68 Source Monitor Monitor Position Semi-Fowlers Blood Pressure Location Left Arm History Since Last Visit- (Skip if this is Patient's initial visit) Have you changed medications since your No No last visit? Any new allergies or adverse reactions No No Had a fall/change in ADL's that may No No increase risk of falls Signs or symptoms of abuse and/or No No neglect since last visit Have you been in the hospital since your No No last visit? Has dressing in place as prescribed Yes Yes Has compression in place as prescribed Yes Yes Has offloadiing in place as prescribed Yes N/A Experienced any changes in pain level or No No management Left Footwear Regular Shoe Right Footwear Regular Shoe Pain Scale: 0-10 Numeric Is Patient Pain Free? Yes Yes - Nurse 1 - General Ulcer Measurement Start: 01/13/25 13:56 Freq: Status: Active Protocol: Activity Type Activity Date Activity User E-sign Co-sign Detail Recorded Client Recorded Date Recorded By Document 01/13/25 13:59 DL [id number] 01/13/25 14:01 DL Document 01/19/25 13:46 KW [id number] 01/19/25 13:49 01/13/25 01/19/25 13:59 13:46 Wound Center Nurse 1 #1 LT MED LE -Current Size (cm) - Length 0.1 0.1 -Current Size (cm) - Width 0.1 0.1 -Current Size (cm) - Depth 0.1 0 -Total Square Cm 0.01 0.01 -Date of Last Picture (Recall this 01/19/25 field) -Exudate Amt None Present Small -Exudate Type Serosanguineous -Wound Margin Indistinct, Non Flat & Intact -Visible -Granulation Amt None Present (0 %) -Necrosis Amt Small (1-33%) -Necrotic Tissue Type Adherent Slough -Structure Exposed N/A -Texture (Maylin-wound Skin Appearance) Scarring Assessed -Moisture (Maylin-wound Skin Appearance) No Abnormality Assessed -Color (Maylin-wound Skin Appearance) No Abnormality Assessed, Ecchymosis -Temperature (Maylin-wound Skin No Abnormality No Abnormality Appearance) (Pt Warm) (Pt Warm) -Tenderness on Palpation (Maylin-wound No No Skin Appearance) -Ulcer Cleansing Rinsed/ Rinsed/ Irrigated with Irrigated with Saline Saline -Foul Odor after Cleansing No No -Wound Comment(s) Skin tear/ sutures intact sutures intact. WC - Nurse 2 - General Ulcer CM Notes Start: 01/13/25 13:56 Freq: Status: Active Protocol: Activity Type Activity Date Activity User E-sign Co-sign Detail Recorded Client Recorded Date Recorded By Document 01/13/25 14:27 [id number] 01/13/25 14:29 Document 01/19/25 14:01 [id number] 01/19/25 14:02 01/13/25 01/19/25 14:27 14:01 Wound Center Nurse 2 #1 LT MED LE -Time 14:27 -Correct Patient Yes Yes -Correct Side, Site, Position Yes No -Correct Procedure No No -Procedure Performed No No -Post Debridement (cm) - Length 0.1 -Post Debridement (cm) - Width 0.1 -Post Debridement (cm) - Depth 0.1 -Total Square (Post) (cm) 0.01 -Area of Debridement (cm) - Length 0.1 -Area of Debridement (cm) - Width 0.1 -Total Square (Area) (cm) 0.01 -Circular Undermining No -Wound/Ulcer Outcome Not Healed -Foul Odor after Cleansing No -Bioengineered Tissue No -Bleeding Controlled with NA -Wound Comment(s) sutures intact Pain Scale: 0-10 Numeric Is Patient Pain Free? Yes Yes - Nurse 3 - General Ulcer D/C NN Start: 01/13/25 13:56 Freq: Status: Active Protocol: Activity Type Activity Date Activity User E-sign Co-sign Detail Recorded Client Recorded Date Recorded By Document 01/13/25 14:38 [facility] [id number] 01/13/25 14:38 [facility] Document 01/19/25 14:10 [id number] 01/19/25 14:10 01/13/25 01/19/25 14:38 14:10 Wound Care Center Nurse 3 #1 LT MED LE -Ulcer Cleansing Rinsed/ Irrigated with Saline -Foul Odor after Cleansing No -Primary Dressing Applied NonAdherent NonAdherent Contact Layer Contact Layer -Primary Dressing Covered/Secured with Dry Gauze & Dry Gauze & Roll Gauze, Roll Gauze, Secured with Secured with Tape Tape LLE -Compression Wrap Jhon Wrap Treatment Response Procedure Tolerated Well Pain Scale: 0-10 Numeric Is Patient Pain Free? Yes Yes - Visit Discharge Discharge Condition Stable Stable Ambulatory Status Ambulatory,Cane Ambulatory,Cane Transportation Private Auto Private Auto Medication Reconcilliation completed & No provided to patient/care provider Clinical Summary of Care Provided Yes Charges/Coding Visit Charges Office Visits / Consults: 64475 OV L3 Est 20min Assessment/Plan Assessment/Plan (1) Traumatic open wound of lower leg: CODE(S): S81.809A - Unspecified open wound, unspecified lower leg, initialencounter QUALIFIERS: Encounter type: subsequent encounter Laterality: left Qualified Code(s): S81.802D - Unspecified open wound, left lower leg, subsequent encounter (2) Avulsion injury: CODE(S): T14.8XXA - Other injury of unspecified body region, initial encounter (3) S/P ORIF (open reduction internal fixation) fracture: CODE(S): Z96.7 - Presence of other bone and tendon implants; Z87.81 - Personal history of (healed) traumatic fracture (4) S/P ORIF (open reduction internal fixation) fracture: CODE(S): Z98.890 - Other specified postprocedural states; Z87.81 - Personal history of (healed) traumatic fracture (5) History of surgery on wrist: CODE(S): Z98.890 - Other specified postprocedural states (6) History of cataract surgery: CODE(S): Z98.49 - Cataract extraction status, unspecified eye (7) History of ankle surgery: CODE(S): Z98.890 - Other specified postprocedural states (8) Hypothyroidism: CODE(S): E03.9 - Hypothyroidism, unspecified QUALIFIERS: Hypothyroidism type: acquired Qualified Code(s): E03.9 - Hypothyroidism, unspecified (9) Raynaud phenomenon: CODE(S): I73.00 - Raynaud's syndrome without gangrene QUALIFIERS: Raynaud?s-associated gangrene presence: without gangrene Qualified Code(s): I73.00 - Raynaud's syndrome without gangrene (10) Osteoporosis: CODE(S): M81.0 - Age-related osteoporosis without current pathological fracture (11) Hxyr-rfva-tcdsxaytqeettnm: 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 The injury occurred when thepatient's dog traumatized her leg with its nails. Immediately following her injury, the patient presented to the [facility] Emergency Department, where the avulsion flap was repositioned and sutured in place. The flap remainsanchored, with skin edges well-approximated. The remaining approximating sutures have been removed today. The patient is to be rescheduled for an appointment in 1 week, at which time the traumatic wound willbe reexamined. The skin flap appears somewhat dusky and ecchymotic, with question as to whether there may be some ischemia. There is question as to whether this flap will survive. In fact, theskin flap may not remain viable, and may ultimately slough, or require debridement/excision. However, thus far, there has been improvement. This matter will be reassessed upon the patient's return vis it in 1 week, and thereafter if necessary. The patient has been counseled toprotect the from any avoidable trauma. She has been advised to optimize her nutritional intake. Total time: 24 minutes 01/19/251912 Cosigner Signature (if applicable): CC: ~ Signed [facility]05-08-2025 History and physical note Author Cedric Gibbons [facility] Note Date/Time January 14, 2025 8:19pm [facility] [address] [place] [address] H&P Exam - Wound Care 01/14/252007 MR#: [id number] Acct: [id number] Name: GERALDINE HAIRSTON Rep #:[id number] : 1950 74 From: Cedric Worthington PCP: Dr. Chance Kolb MD Status:[facility] RCR Location: History of Present Illness Date of Service: 01/13/25 Chief Complaint: Traumatic avulsion injury of the left medial calf History of Wound: This is a 74-year-old female who sustained a traumatic injury to her left medial calf on January 01, 2025. At the time of her injury, she presented to the [facility] Emergency Department, where she was found to have an avulsion injury with a significant adherent cutaneous flap. The injury was caused by the nails of her dog, who had jumped off the couch. Inthe Emergency Department, the flap was sutured in place using seven 5-0 nylon sutures. The patient was placed on Keflex and Augmentin orally, and was discharged. The patient is generally healthy for her age, though has a history of dspf-mubq-raueaepaurenfji, GERD, hypertension, hypothyroidism, and osteoporosis. She denies a history of diabetes mellitus, myocardial infarction,cerebrovascular accident, renal disease, and pulmonary disease. Her BMI is 19.5. She is . [facility] Medical History Traumatic open wound of lower leg Avulsion injury GERD (gastroesophageal reflux disease) HTN (hypertension) Hypothyroidism Depression Anxiety Home Medications ?Medication ?Instructions ?Recorded ?Last Taken ?Type levothyroxine 25 mcg tablet 25 mcg PO DAILY Check with primary 02/07/15 09/29/16 09:00 History doctor Bacillus coagulans-inulin 1 1 ea PO DAILY Check with p rimary 12/07/15 09/29/16 09:00 History billion cell-250 mg capsule doctor (Probiotic Formula (inulin)) gabapentin 100 mg capsule 600 mg PO BID Check with loretta mcmillan 12/07/15 09/29/16 21:00 History doctor nifedipine 60 mg tablet,extended 180 mg PO DAILY Check with primary 12/07/15 09/29/16 09:00 History release 24 hr doctor pantoprazole 20 mg tablet,delayed 20 mg PO DAILY [facility] 12/07/15 09/29/16 09:00 History release paroxetine HCl 25 mg 75 mg PO DAILY depression 09/29/16 09:00 History tablet,extended release 24 hr (Paxil CR) aspirin 325 mg tablet,delayed 325 mg PO DAILY HEART 09/29/16 09:00 History release buspirone 5 mg tablet 30 mg PO BID Check with prim lesley 04/26/16 09/29/16 21:00 History doctor budesonide 3 mg 9 mg PO DAILY Check with loretta mcmillan 09/30/16 Unknown History capsule,delayed,extended release doctor (Entocort EC) lorazepam 0.5 mg tablet 0.5 mg PO Q6H PRN PRN Anxiet y ##10 10/03/16 Unknown Rx dicyclomine 20 mg tablet 20 mg PO TID Check with prim lesley 09/02/22 Unknown History doctor Metamucil Check with primary doctor Unknown History food supplemt, lactose-reduced 120 ml PO 4X/DAY Check with 09/07/22 Unknown History 0.08 gram-1.5 kcal/mL oral liquid primary doctor (Ensure Enlive) loperamide 2 mg tablet 2 mg PO Q6H PRN Constipation 09/07/22 Unknown History omeprazole 40 mg PO/SL DAILY Check with 09/07/22 Unknown History primary doctor atorvastatin 80 mg tablet 20 mg (1/4 x 80 mg) PO QHS # 30 tabs 09/08/22 Unknown Rx cephalexin 500 mg capsule 500 mg PO BID #12 caps 09/08 Unknown Rx amoxicillin 875 mg-potassium 875 mg (0.875 x 875-125 m g) PO 04/29/23 Unknown Rx clavulanate 125 mg tablet Q12H #10 TABLETS Allergy/AdvReac Type Severity Reaction Status Date / Time acetaminophen (From Percocet) Allergy Other Verified 01/06/25 14:05 oxycodone (From Percocet) Allergy Other Verified 01/06/25 14:05 codeine AdvReac Nausea & Verified 01/06/25 14:05 dizziness oxycodone HCl (From Percocet) AdvReac Nausea & Verified 01/06/25 14:05 dizziness Family History Father Diabetes Dementia Surgical History S/P ORIF (open reduction internal fixation) fracture History of surgery on wrist History of cataract surgery History of ankle surgery Social History household members: none Smoking Status: Never smoker substance use type: does not use Vital Signs Vital Signs Vital Signs: Weight Weight: 95 lb Body Mass Index (BMI) 19.5 Physical Exam Const alert, oriented x3, no apparent distress, average body habitus and well nourished Constitutional Narrative: The patient's BMI is 19.5. General Appearance: cooperative, comfortable, well kempt and well developed Orientation / Consciousness: awake, oriented to person, oriented to place and oriented to time Exam Limitations: no limitations HEENT normocephalic and head/scalp atraumatic Head and Scalp: normal to inspection, normocephalic and atraumatic Face and Sinus: normal facial exam Nose: external nose normal External Ear: external ears normal Eyes EOMs intact bilaterally General Eye: normal appearance of both eyes Neck full ROM Resp normal respiratory effort, normal air movement, no retractions and no use of accessory muscles Effort and Inspection: able to speak in complete sentences Extremity no calf tenderness General Extremity: Negative for clubbing or cyanosis Skin Wound Narrative: A traumatic wound is noted on the patient's left medial calf. It appears to be an avulsion injury, with a resultant flap of skin. At the time of the patient'sEmergency Department visit, the flap was repositioned, and sutured in place using seven 5- 0 nylon sutures. The avulsion flap remains in place, as well as the anchoring sutures. Skin edges appear to be well-approximated. There is no sign of infection or cellulitis. However, the avulsion flap appears to be duskyand ecchymotic, with question of ischemia. Neuro oriented x3, CN's II-XII intact bilaterally, moves all extremities, no focal motor deficits and no sensory deficits noted Sensorium / Orientation: awake, alert, oriented to person, oriented to place andoriented to time Psych Appearance: grossly normal and appropriate Attitude: calm Activity / Motor Behavior: appropriate eye contact Speech: normal speech Mood & Affect: euthymic mood Thought Process: normal thought process Thought Content: normal thought content Attention / Concentration: attention grossly intact Debridement Note Debridement Note Debridement Free Text: The patient suture repair remains intact, with skin edgeswell-approximated. There remains a question as to whether the traumatic skin flap is ischemic. At today's visit, a total of 3 sutures removed, every other suture which had been placed. It is anticipated that the remaining sutures willcontinue to enhance approximation of the wound. Post-Debridement Measurements and Additional Note: Post-Debridement Measurements/Treatment WC - Nurse 1 - General Ulcer Assessment Start: 01/13/25 13:56 Freq: Status: Active Protocol: NATHALIE Activity Type Activity Date Activity User E-sign Co-sign Detail Recorded Client Recorded Date Recorded By Document 01/13/25 13:59 DL [id number] 01/13/25 14:01 DL 01/13/25 13:59 - Today's Visit Information Type of service Follow-up Visit (Physician/DEALERSHIP MANAGER ) Arrival Mode Ambulatory Transfer Assistance None Patient Identification Verified (Name & Yes ) Patient Requires Transmission-Based No Precautions Height and Weight Body Mass Index (BMI) 19.5 BMI Classification Normal Vital Signs Temperature (97.8 F-99.1 F) 97 F L Temperature Source Temporal Pulse Rate (60-100) 83 Pulse Location Monitor Respiratory Rate (12-18) 16 Respiratory rate source Observation Blood Pressure (90/60-120/80) 103/60 Blood Pressure Mean 74 Source Monitor History Since Last Visit- (Skip if this is Patient's initial visit) Have you changed medications since your No last visit? Any new allergies or adverse reactions No Had a fall/change in ADL's that may No increase risk of falls Signs or symptoms of abuse and/or No neglect since last visit Have you been in the hospital since your No last visit? Has dressing in place as prescribed Yes Has compression in place as prescribed Yes Has offloadiing in place as prescribed Yes Experienced any changes in pain level or No management Pain Scale: 0-10 Numeric Is Patient Pain Free? Yes WC - Nurse 1 - General Ulcer Measurement Start: 01/13/25 13:56 Freq: Status: Active Protocol: Activity Type Activity Date Activity User E-sign Co-sign Detail Recorded Client Recorded Date Recorded By Document 01/13/25 13:59 DL [id number] 01/13/25 14:01 DL 01/13/25 13:59 Wound Center Nurse 1 #1 LT MED LE -Current Size (cm) - Length 0.1 -Current Size (cm) - Width 0.1 -Current Size (cm) - Depth 0.1 -Total Square Cm 0.01 -Exudate Amt None Present -Wound Margin Indistinct, Non -Visible -Granulation Amt None Present (0 %) -Necrosis Amt Small (1-33%) -Necrotic Tissue Type Adherent Slough -Structure Exposed N/A -Texture (Maylin-wound Skin Appearance) Scarring -Moisture (Maylin-wound Skin Appearance) No Abnormality -Color (Maylin-wound Skin Appearance) No Abnormality -Temperature (Maylin-wound Skin No Abnormality Appearance) (Pt Warm) -Tenderness on Palpation (Maylni-wound No Skin Appearance) -Ulcer Cleansing Rinsed/ Irrigated with Saline -Foul Odor after Cleansing No -Wound Comment(s) Skin tear/ sutures intact. WC - Nurse 2 - General Ulcer CM Notes Start: 01/13/25 13:56 Freq: Status: Active Protocol: Activity Type Activity Date Activity User E-sign Co-sign Detail Recorded Client Recorded Date Recorded By Document 01/13/25 14:27 [id number] 01/13/25 14:29 01/13/25 14:27 Wound Center Nurse 2 -Time 14:27 -Correct Patient Yes -Correct Side, Site, Position Yes -Correct Procedure No -Procedure Performed No -Circular Undermining No -Foul Odor after Cleansing No -Bioengineered Tissue No -Bleeding Controlled with NA -Wound Comment(s) sutures intact Pain Scale: 0-10 Numeric Is Patient Pain Free? Yes DANTE - Nurse 3 - General Ulcer D/C NN Start: 01/13/25 13:56 Freq: Status: Active Protocol: Activity Type Activity Date Activity User E-sign Co-sign Detail Recorded Client Recorded Date Recorded By Document 01/13/25 14:38 [facility] [id number] 01/13/25 14:38 [facility] 01/13/25 14:38 Wound Care Center Nurse 3 #1 LT MED LE -Ulcer Cleansing Rinsed/ Irrigated with Saline -Foul Odor after Cleansing No -Primary Dressing Applied NonAdherent Contact Layer -Primary Dressing Covered/Secured with Dry Gauze & Roll Gauze, Secured with Tape Treatment Response Procedure Tolerated Well Pain Scale: 0-10 Numeric Is Patient Pain Free? Yes WC - Visit Discharge Discharge Condition Stable Ambulatory Status Ambulatory,Cane Transportation Private Auto Charges/Coding Visit Charges Office Visits / Consults: 43481 OV L3 Est 20min Assessment/Plan Assessment/Plan (1) Traumatic open wound of lower leg: CODE(S): S81.809A - Unspecified open wound, unspecified lower leg, initialencounter QUALIFIERS: Encounter type: subsequent encounter Laterality: left Qualified Code(s): S81.802D - Unspecified open wound, left lower leg, subsequent encounter (2) Avulsion injury: CODE(S): T14.8XXA - Other injury of unspecified body region, initial encounter (3) S/P ORIF (open reduction internal fixation) fracture: CODE(S): Z96.7 - Presence of other bone and tendon implants; Z87.81 - Personal history of (healed) traumatic fracture (4) S/P ORIF (open reduction internal fixation) fracture: CODE(S): Z98.890 - Other specified postprocedural states; Z87.81 - Personal history of (healed) traumatic fracture (5) History of surgery on wrist: CODE(S): Z98.890 - Other specified postprocedural states (6) History of cataract surgery: CODE(S): Z98.49 - Cataract extraction status, unspecified eye (7) History of ankle surgery: CODE(S): Z98.890 - Other specified postprocedural states (8) Hypothyroidism: CODE(S): E03.9 - Hypothyroidism, unspecified QUALIFIERS: Hypothyroidism type: acquired Qualified Code(s): E03.9 - Hypothyroidism, unspecified (9) Raynaud phenomenon: CODE(S): I73.00 - Raynaud's syndrome without gangrene QUALIFIERS: Raynaud?s-associated gangrene presence: without gangrene Qualified Code(s): I73.00 - Raynaud's syndrome without gangrene (10) Osteoporosis: CODE(S): M81.0 - Age-related osteoporosis without current pathological fracture (11) Iquy-iqqy-zoqfmmeqftsuzbz: 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 The injury occurred when thepatient's dog traumatized her leg with its nails. Immediately following her injury, the patient presented to the [facility] emergency Department, where the avulsion flap was repositioned and sutured in place. The flap remains anchored, with skin edges well-approximated. Several of the sutures have been removed today, though [address]. It has been approximately 12 days since the injury and suture repair. The patient is to berescheduled for an appointment in 1 week, at which time the traumatic wound willbe reexamined. The skin flap appears somewhat dusky and ecchymotic, with question as to whether there may be some ischemia. There is question as to whether this flap will survive. In fact, the skin flap may not remain viable, and may ultimately slough, or require debridement/excision. This matter will bereassessed upon the patient's return visit in 1 week, and thereafter if necessary. Total time: 25 minutes 01/14/252018 <Electronically signed by Cedric Gibbons MD> Cosigner Signature (if applicable): CC: ~ Signed [facility] Work Phone: 1(244) 256-950705-08-2025 History and physical note [facility] [address] [place] [id number] H&P Exam - Wound Care 01/14/252007 MR#: [id number] Acct: [id number] Name: RONALDOGERALDINE BRITO Elin Rep #:[id number] 28 : 1950 74 From: Cedric Worthington PCP: Dr. Chance Kolb MD Status:[facility] Location: History of Present Illness Date of Service: 01/13/25 Chief Complaint: Traumatic avulsion injury of the left medial calf History of Wound: This is a 74-year-old female who sustained a traumatic injury to her left medial calf on January 01, 2025. At the time of her injury, she presented to the [facility] Emergency Department, where she was found to have an avulsion injury with a significant adherent cutaneous flap. The injury was caused by the nails of her dog, who had jumped off the couch. Inthe Emergency Department, the flap was sutured in place using seven 5-0 nylon sutures. The patient was placedon Keflex and Augmentin orally, and was discharged. The patient is generally healthy for her age, though has a history of kqep-laxj-wvliihlsqbwhxth, GERD, hypertension, hypothyroidism, and osteoporosis. She denies a history of diabetes mellitus, myocardial infarction,cerebrovascular accident, renaldisease, and pulmonary disease. Her BMI is 19.5. She is . [facility]MERLY [facility] Medical History Traumatic open wound of lower leg Avulsion injury GERD (gastroesophageal reflux disease) HTN (hypertension) Hypothyroidism Depression Anxiety Home Medications ?Medication ?Instructions ?Recorded ?Last Taken ?Type levothyroxine 25 mcg tablet 25 mcg PO DAILY Check with primary 02/07/15 09/29/16 09:00 History doctor Bacillus coagulans-inulin 1 1 ea PO DAILY Check with p skye 12/07/15 09/29/16 09:00 History billion cell-250 mg capsule doctor (Probiotic Formula (inulin)) gabapentin 100 mg capsule 600 mg PO BID Check with loretta mcmillan 12/07/15 09/29/16 21:00 History doctor nifedipine 60 mg tablet,extended 180 mg PO DAILY Check with primary 12/07/15 09/29/16 09:00 History release 24 hr doctor pantoprazole 20 mg tablet,delayed 20 mg PO DAILY [facility] 12/07/15 09/29/16 09:00 History release paroxetine HCl 25 mg 75 mg PO DAILY depression 09/29/16 09:00 History tablet,extended release 24 hr (Paxil CR) aspirin 325 mg tablet,delayed 325 mg PO DAILY HEART 09/29/16 09:00 History release buspirone 5 mg tablet 30 mg PO BID Check with prim lesley 04/26/16 09/29/16 21:00 History doctor budesonide 3 mg 9 mg PO DAILY Check with loretta mcmillan 09/30/16 Unknown History capsule,delayed,extended release doctor (Entocort EC) lorazepam 0.5 mg tablet 0.5 mg PO Q6H PRN PRN Anxiet y ##10 10/03/16 Unknown Rx dicyclomine 20 mg tablet 20 mg PO TID Check with prim lesley 09/02/22 Unknown History doctor Metamucil Check with primary doctor Unknown History food supplemt, lactose-reduced 120 ml PO 4X/DAY Check with 09/07/22 Unknown History 0.08 gram-1.5 kcal/mL oral liquid primary doctor (Ensure Enlive) loperamide 2 mg tablet 2 mg PO Q6H PRN Constipation 09/07/22 Unknown History omeprazole 40 mg PO/SL DAILY Check with 09/07/22 Unknown History primary doctor atorvastatin 80 mg tablet 20 mg (1/4 x 80 mg) PO QHS # 30 tabs 09/08/22 Unknown Rx cephalexin 500 mg capsule 500 mg PO BID #12 caps 09/08 Unknown Rx amoxicillin 875 mg-potassium 875 mg (0.875 x 875-125 m g) PO 04/29/23 Unknown Rx clavulanate 125 mg tablet Q12H #10 TABLETS Allergy/AdvReac Type Severity Reaction Status Date / Time acetaminophen (From Percocet) Allergy Other Verified 01/06/25 14:05 oxycodone (From Percocet) Allergy Other Verified 01/06/25 14:05 codeine AdvReac Nausea & Verified 01/06/25 14:05 dizziness oxycodone HCl (From Percocet) AdvReac Nausea & Verified 01/06/25 14:05 dizziness Family History Father Diabetes Dementia Surgical History S/P ORIF (open reduction internal fixation) fracture History of surgery on wrist History of cataract surgery History of ankle surgery Social History household members: none Smoking Status: Never smoker substance use type: does not use Vital Signs Vital Signs Vital Signs: Weight Weight: 95 lb Body Mass Index (BMI) 19.5 Physical Exam Const alert, oriented x3, no apparent distress, average body habitus and well nourished Constitutional Narrative: The patient's BMI is 19.5. General Appearance: cooperative, comfortable, well kempt and well developed Orientation / Consciousness: awake, oriented to person, oriented to place and oriented to time Exam Limitations: no limitations HEENT normocephalic and head/scalp atraumatic Head and Scalp: normal to inspection, normocephalic and atraumatic Face and Sinus: normal facial exam Nose: external nose normal External Ear: external ears normal Eyes EOMs intact bilaterally General Eye: normal appearance of both eyes Neck full ROM Resp normal respiratory effort, normal air movement, no retractions and no use of accessory muscles Effort and Inspection: able to speak in complete sentences Extremity no calf tenderness General Extremity: Negative for clubbing or cyanosis Skin Wound Narrative: A traumatic wound is noted on the patient's left medial calf. It appears to be an avulsion injury, with a resultant flap of skin. At the time of the patient'sEmergency Department visit, the flap was repositioned, and sutured in place using seven 5-0 nylon sutures. The avulsion flap remains in place, as well as the anchoring sutures. Skin edges appear to be well-approximated. There is no sign of infection or cellulitis. However, the avulsion flap appears to be duskyand ecchymotic, with question of ischemia. Neuro oriented x3, CN's II-XII intact bilaterally, moves all extremities, no focal motor deficits and no sensory deficits noted Sensorium / Orientation: awake, alert, oriented to person, oriented to place andoriented to time Psych Appearance: grossly normal and appropriate Attitude: calm Activity / Motor Behavior: appropriate eye contact Speech: normal speech Mood & Affect: euthymic mood Thought Process: normal thought process Thought Content: normal thought content Attention / Concentration: attention grossly intact Debridement Note Debridement Note Debridement Free Text: The patient suture repair remains intact, with skin edgeswell-approximated. There remains a question as to whether the traumatic skin flap is ischemic. At today's visit, a total of 3 sutures removed, every other suture which had been placed. It is anticipated that the remaining sutures willcontinue to enhance approximation of the wound. Post-Debridement Measurements and Additional Note: Post-Debridement Measurements/Treatment WC - Nurse 1 - General Ulcer Assessment Start: 01/13/25 13:56 Freq: Status: Active Protocol: NATHALIE Activity Type Activity Date Activity User E-sign Co-sign Detail Recorded Client Recorded Date Recorded By Document 01/13/25 13:59 CHARY [id number] 01/13/25 14:01 DL 01/13/25 13:59 - Today's Visit Information Type of service Follow-up Visit (Physician/DEALERSHIP MANAGER ) Arrival Mode Ambulatory Transfer Assistance None Patient Identification Verified (Name & Yes ) Patient Requires Transmission-Based No Precautions Height and Weight Body Mass Index (BMI) 19.5 BMI Classification Normal Vital Signs Temperature (97.8 F-99.1 F) 97 F L Temperature Source Temporal Pulse Rate (60-100) 83 Pulse Location Monitor Respiratory Rate (12-18) 16 Respiratory rate source Observation Blood Pressure (90/60-120/80) 103/60 Blood Pressure Mean 74 Source Monitor History Since Last Visit- (Skip if this is Patient's initial visit) Have you changed medications since your No last visit? Any new allergies or adverse reactions No Had a fall/change in ADL's that may No increase risk of falls Signs or symptoms of abuse and/or No neglect since last visit Have you been in the hospital since your No last visit? Has dressing in place as prescribed Yes Has compression in place as prescribed Yes Has offloadiing in place as prescribed Yes Experienced any changes in pain level or No management Pain Scale: 0-10 Numeric Is Patient Pain Free? Yes - Nurse 1 - General Ulcer Measurement Start: 01/13/25 13:56 Freq: Status: Active Protocol: Activity Type Activity Date Activity User E-sign Co-sign Detail Recorded Client Recorded Date Recorded By Document 01/13/25 13:59 [id number] 01/13/25 14:01 DL 01/13/25 13:59 Wound Center Nurse 1 #1 LT MED LE -Current Size (cm) - Length 0.1 -Current Size (cm) - Width 0.1 -Current Size (cm) - Depth 0.1 -Total Square Cm 0.01 -Exudate Amt None Present -Wound Margin Indistinct, Non -Visible -Granulation Amt None Present (0 %) -Necrosis Amt Small (1-33%) -Necrotic Tissue Type Adherent Slough -Structure Exposed N/A -Texture (Maylin-wound Skin Appearance) Scarring -Moisture (Maylin-wound Skin Appearance) No Abnormality -Color (Maylin-wound Skin Appearance) No Abnormality -Temperature (Maylin-wound Skin No Abnormality Appearance) (Pt Warm) -Tenderness on Palpation (Maylin-wound No Skin Appearance) -Ulcer Cleansing Rinsed/ Irrigated with Saline -Foul Odor after Cleansing No -Wound Comment(s) Skin tear/ sutures intact. - Nurse 2 - General Ulcer CM Notes Start: 01/13/25 13:56 Freq: Status: Active Protocol: Activity Type Activity Date Activity User E-sign Co-sign Detail Recorded Client Recorded Date Recorded By Document 01/13/25 14:27 [id number] 01/13/25 14:29 01/13/25 14:27 Wound Center Nurse 2 -Time 14:27 -Correct Patient Yes -Correct Side, Site, Position Yes -Correct Procedure No -Procedure Performed No -Circular Undermining No -Foul Odor after Cleansing No -Bioengineered Tissue No -Bleeding Controlled with NA -Wound Comment(s) sutures intact Pain Scale: 0-10 Numeric Is Patient Pain Free? Yes - Nurse 3 - General Ulcer D/C NN Start: 01/13/25 13:56 Freq: Status: Active Protocol: Activity Type Activity Date Activity User E-sign Co-sign Detail Recorded Client Recorded Date Recorded By Document 01/13/25 14:38 [facility] [id number] 01/13/25 14:38 [facility] 01/13/25 14:38 Wound Care Center Nurse 3 #1 LT MED LE -Ulcer Cleansing Rinsed/ Irrigated with Saline -Foul Odor after Cleansing No -Primary Dressing Applied NonAdherent Contact Layer -Primary Dressing Covered/Secured with Dry Gauze & Roll Gauze, Secured with Tape Treatment Response Procedure Tolerated Well Pain Scale: 0-10 Numeric Is Patient Pain Free? Yes - Visit Discharge Discharge Condition Stable Ambulatory Status Ambulatory,Cane Transportation Private Auto Charges/Coding Visit Charges Office Visits / Consults: 95029 OV L3 Est 20min Assessment/Plan Assessment/Plan (1) Traumatic open wound of lower leg: CODE(S): S81.809A - Unspecified open wound, unspecified lower leg, initialencounter QUALIFIERS: Encounter type: subsequent encounter Laterality: left Qualified Code(s): S81.802D - Unspecified open wound, left lower leg, subsequent encounter (2) Avulsion injury: CODE(S): T14.8XXA - Other injury of unspecified body region, initial encounter (3) S/P ORIF (open reduction internal fixation) fracture: CODE(S): Z96.7 - Presence of other bone and tendon implants; Z87.81 - Personal history of (healed) traumatic fracture (4) S/P ORIF (open reduction internal fixation) fracture: CODE(S): Z98.890 - Other specified postprocedural states; Z87.81 - Personal history of (healed) traumatic fracture (5) History of surgery on wrist: CODE(S): Z98.890 - Other specified postprocedural states (6) History of cataract surgery: CODE(S): Z98.49 - Cataract extraction status, unspecified eye (7) History of ankle surgery: CODE(S): Z98.890 - Other specified postprocedural states (8) Hypothyroidism: CODE(S): E03.9 - Hypothyroidism, unspecified QUALIFIERS: Hypothyroidism type: acquired Qualified Code(s): E03.9 - Hypothyroidism, unspecified (9) Raynaud phenomenon: CODE(S): I73.00 - Raynaud's syndrome without gangrene QUALIFIERS: Raynaud?s-associated gangrene presence: without gangrene Qualified Code(s): I73.00 - Raynaud's syndrome without gangrene (10) Osteoporosis: CODE(S): M81.0 - Age-related osteoporosis without current pathological fracture (11) Qacg-pxud-jrrvepxrqvnkdql: 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 The injury occurred when thepatient's dog traumatized her leg with its nails. Immediately following her injury, the patient presented to the [facility] emergency Department, where the avulsion flap was repositioned and sutured in place. The flap remainsanchored, with skin edges well-approximated. Several of the sutures have been removed today, though4 sutures [address] in [address]. It has been approximately 12 days since the injury and suture repair. The patient is to berescheduled for an appointment in 1 week, at which time the traumatic wound willbereexamined. The skin flap appears somewhat dusky and ecchymotic, with question as to whether there may be some ischemia. There is question as to whether this flap will survive. In fact, the skin flapmay not remain viable, and may ultimately slough, or require debridement/excision. This matter will bereassessed upon the patient's return visit in 1 week, and thereafter if necessary. Total time: 25 minutes 01/14/252018 Cosigner Signature (if applicable): CC: ~ Signed [facility]04-30-2025 Evaluation note* Diagnosis Onset Date Resolution Status Admit Date Avulsion injury acute December 1:39pm History of ankle surgery acute January 06, 2025 1:39pm History of cataract surgery acute January 06, 2025 1:39pm History of surgery on wrist acute January 06, 2025 1:39pm Zhsn-lfup-fysvjhfyerbmxzr acute January 06, 2025 1:39pm S/P ORIF (open reduction internal fixation) fracture acute Apr l 2024 1:39pm Traumatic open wound of lowe r leg acute January 06, 2025 1:39pm Hypothyroidism chronic December 1:39pm Osteoporosis chronic January 06, 2025 1:39pm Raynaud phenomenon chronic January 06, 2025 1:39pm S/P ORIF (open reduction internal fixation) fracture chronic Apr l 2024 1:39pm Avulsion injury acute February 02, 2025 2:00pm History of ankle surgery acute February 02, 2025 2:00pm History of cataract surgery acute February 02, 2025 2:00pm History of surgery on wrist acute February 02, 2025 2:00pm Ubch-utnx-svzlepaixegckkp acute February 02, 2025 2:00pm S/P ORIF (open reduction internal fixation) fracture acute February 02, 2025 2:00pm Traumatic open wound of lowe r leg acute February 02, 2025 2 :00pm Hypothyroidism chronic February 02, 2025 2:00pm 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 February 02, 2025 2:00pm Osteoporosis chronic February 02 2:00pm Raynaud phenomenon chronic February 022024 2:00pm S/P ORIF (open reduction internal fixation) fracture chronic February 02, 2025 2:00pm [facility] Work Phone: 1(757) 516-849904-30-2025 Evaluation note* Diagnosis Onset Date Resolution Status Admit Date Avulsion injury acute December 1:39pm History of ankle surgery acute January 06, 2025 1:39pm History of cataract surgery acute January 06, 2025 1:39pm History of surgery on wrist acute January 06, 2025 1:39pm Sdtc-ytto-oodcwdrsxcswffz acute January 06, 2025 1:39pm S/P ORIF (open reduction internal fixation) fracture acute l 2024 1:39pm Traumatic open wound of lowe r leg acute January 06, 2025 1:39pm Hypothyroidism chronic December 1:39pm Osteoporosis chronic January 06, 2025 1:39pm Raynaud phenomenon chronic January 06, 2025 1:39pm S/P ORIF (open reduction internal fixation) fracture chronic l 2024 1:39pm Avulsion injury acute February 02, 2025 2:00pm History of ankle surgery acute February 02, 2025 2:00pm History of cataract surgery acute February 02, 2025 2:00pm History of surgery on wrist acute February 02, 2025 2:00pm Vjht-zjap-yvqqbvopgptzqhr acute February 02, 2025 2:00pm S/P ORIF (open reduction internal fixation) fracture acute February 02, 2025 2:00pm Traumatic open wound of lowe r leg acute February 02, 2025 2 :00pm Hypothyroidism chronic February 02, 2025 2:00pm 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 February 02, 2025 2:00pm Osteoporosis chronic February 02 2:00pm Raynaud phenomenon chronic February 022024 2:00pm S/P ORIF (open reduction internal fixation) fracture chronic February 02, 2025 2:00pm Avulsion injury acute February 1:30pm History of ankle surgery acute March 02, 2025 1:30pm History of cataract surgery acute March 02, 2025 1:30pm History of surgery on wrist acute March 02, 2025 1:30pm Uucw-zmty-fzprbouxrphypxp acute March 02, 2025 1:30pm S/P ORIF (open reduction internal fixation) fracture acute March 02, 2025 1:30pm Traumatic open wound of lowe r leg acute March 02, 2025 1:30pm Hypothyroidism chronic March 02, 2025 1:30pm 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 March 02, 2025 1:30pm Osteoporosis chronic March 02, 1:30pm Raynaud phenomenon chronic February 082024 1:30pm S/P ORIF (open reduction internal fixation) fracture chronic March 02, 2025 1:30pm [facility] Work Phone: 1(819) 583-631504-30-2025 Evaluation note* Diagnosis Onset Date Resolution Status Admit Date Avulsion injury acute December 1:39pm History of ankle surgery acute January 06, 2025 1:39pm History of cataract surgery acute January 06, 2025 1:39pm History of surgery on wrist acute January 06, 2025 1:39pm Cfjn-zfez-kviciirlyraadvu acute January 06, 2025 1:39pm S/P ORIF (open reduction internal fixation) fracture acute Apri l 2024 1:39pm Traumatic open wound of lowe r leg acute January 06, 2025 1:39pm Hypothyroidism chronic December 1:39pm Osteoporosis chronic January 06, 2025 1:39pm Raynaud phenomenon chronic January 06, 2025 1:39pm S/P ORIF (open reduction internal fixation) fracture chronic Apri l 2024 1:39pm Avulsion injury acute February 02, 2025 2:00pm History of ankle surgery acute February 02, 2025 2:00pm History of cataract surgery acute February 02, 2025 2:00pm History of surgery on wrist acute February 02, 2025 2:00pm Ahcf-ijvn-fgymqfxcnrjkbwk acute February 02, 2025 2:00pm S/P ORIF (open reduction internal fixation) fracture acute February 02, 2025 2:00pm Traumatic open wound of lowe r leg acute February 02, 2025 2 :00pm Hypothyroidism chronic February 02, 2025 2:00pm 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 February 02, 2025 2:00pm Osteoporosis chronic February 02 2:00pm Raynaud phenomenon chronic February 022024 2:00pm S/P ORIF (open reduction internal fixation) fracture chronic February 02, 2025 2:00pm Avulsion injury acute February 1:30pm History of ankle surgery acute March 02, 2025 1:30pm History of cataract surgery acute March 02, 2025 1:30pm History of surgery on wrist acute March 02, 2025 1:30pm Cttq-kxnw-tjycgvaevayptsh acute March 02, 2025 1:30pm S/P ORIF (open reduction internal fixation) fracture acute March 02, 2025 1:30pm Traumatic open wound of lowe r leg acute March 02, 2025 1:30pm Hypothyroidism chronic March 02, 2025 1:30pm 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 March 02, 2025 1:30pm Osteoporosis chronic March 02, 1:30pm Raynaud phenomenon chronic February 082024 1:30pm S/P ORIF (open reduction internal fixation) fracture chronic March 02, 2025 1:30pm Avulsion injury acute March 09, 2025 12:44pm History of ankle surgery acute March 09, 2025 12:44pm History of cataract surgery acute March 09, 2025 12:44pm History of surgery on wrist acute March 09, 2025 12:44pm Duqw-bkmf-hsqzgeinxdqibqw acute March 09, 2025 12:44pm S/P ORIF (open reduction internal fixation) fracture acute March 09, 2025 12:44pm Traumatic open wound of lowe r leg acute March 09, 2025 1 2:44pm Hypothyroidism chronic March 09, 2025 12:44pm 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 March 09, 2025 12:44pm Osteoporosis chronic March 09 12:44pm Raynaud phenomenon chronic March 092024 12:44pm S/P ORIF (open reduction internal fixation) fracture chronic March 09, 2025 12:44pm [facility] Work Phone: 1(192) 878-158904-30-2025 Evaluation note* Diagnosis Onset Date Resolution Status Admit Date Avulsion injury acute December 1:39pm History of ankle surgery acute January 06, 2025 1:39pm History of cataract surgery acute January 06, 2025 1:39pm History of surgery on wrist acute January 06, 2025 1:39pm Mpoi-iore-iaglnombdvjitbn acute January 06, 2025 1:39pm S/P ORIF (open reduction internal fixation) fracture acute Apri l 2024 1:39pm Traumatic open wound of lowe r leg acute January 06, 2025 1:39pm Hypothyroidism chronic December 1:39pm Osteoporosis chronic January 06, 2025 1:39pm Raynaud phenomenon chronic January 06, 2025 1:39pm S/P ORIF (open reduction internal fixation) fracture chronic Apri l 2024 1:39pm Avulsion injury acute February 02, 2025 2:00pm History of ankle surgery acute February 02, 2025 2:00pm History of cataract surgery acute February 02, 2025 2:00pm History of surgery on wrist acute February 02, 2025 2:00pm Smkh-lkse-oibfnijlqodcxxz acute February 02, 2025 2:00pm S/P ORIF (open reduction internal fixation) fracture acute February 02, 2025 2:00pm Traumatic open wound of lowe r leg acute February 02, 2025 2 :00pm Hypothyroidism chronic February 02, 2025 2:00pm 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 February 02, 2025 2:00pm Osteoporosis chronic February 02 2:00pm Raynaud phenomenon chronic February 022024 2:00pm S/P ORIF (open reduction internal fixation) fracture chronic February 02, 2025 2:00pm Avulsion injury acute February 1:30pm History of ankle surgery acute March 02, 2025 1:30pm History of cataract surgery acute March 02, 2025 1:30pm History of surgery on wrist acute March 02, 2025 1:30pm Srnf-famf-oshztwhafkmkddm acute March 02, 2025 1:30pm S/P ORIF (open reduction internal fixation) fracture acute March 02, 2025 1:30pm Traumatic open wound of lowe r leg acute March 02, 2025 1:30pm Hypothyroidism chronic March 02, 2025 1:30pm 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 March 02, 2025 1:30pm Osteoporosis chronic March 02 025 1:30pm Raynaud phenomenon chronic February 082024 1:30pm S/P ORIF (open reduction internal fixation) fracture chronic March 02, 2025 1:30pm Avulsion injury acute March 1:15pm History of ankle surgery acute March 30, 2025 1:15pm History of cataract surgery acute March 30, 2025 1:15pm History of surgery on wrist acute March 30, 2025 1:15pm Thnp-hhkv-kawxjmpurbblsgt acute March 30, 2025 1:15pm S/P ORIF (open reduction internal fixation) fracture acute March 30, 2025 1:15pm Traumatic open wound of lowe r leg acute March 30, 2025 1:15pm Hypothyroidism chronic March 30, 2025 1:15pm 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 [facility]01-31-2025 Miscellaneous Notes* Telephone Encounter - Beth Linda LPN - 2024 4:19 PM EST Patient notified of providers message and verbalized understanding. * Telephone Encounter - Nguyễn Stringer APRN.CNS - 2024 3:52 PM EST Urinalysis shows bacteria no other abnormal findings. If still with dysuria urgency frequency can send the antibiotic. Culture not completed. Rx macrobid x 7 days to D[facility]. * Telephone Encounter - Ann Marie Wylie RN - 2024 12:55 PM EST Patient calls and states that she has been having issues with frequent urination. Patient lower abdomen discomfort. Patient came into lab on 10/06/2024 and did urinalysis. Patient asking if provider can advise on this? Please review and advise, Ann Marie Wylie RN [facility] Telephone encounter Note * Telephone Encounter - Nguyễn Stringer APRN.CNS - 2024 3:52 PM EST Urinalysis shows bacteria no other abnormal findings. If still with dysuria urgency frequency can send the antibiotic. Culture not completed. Rx macrobid x 7 days to [facility]. [facility]01-31-2025 Telephone encounter Note* Telephone Encounter - Ann Marie Wylie RN - 2024 12:55 PM EST Patient calls and states that she has been having issues with frequent urination. Patient lower abdomen discomfort. Patient came into lab on 10/06/2024 and did urinalysis. Patient asking if provider can advise on this? Please review and advise, Ann Marie Wylie RN [facility]12-09-2024 History of Present illness Narrative* Aicha Gonzalez RT(R) - 08/17/2024 11:15 AM EST Radiology Service Progress Note PATIENT NAME: Geraldine Hairston DATE OF SERVICE: August 17, 2024 TIME: 11:03 AM PATIENT IDENTITY VERIFICATION COMPLETED USING TWO (2) IDENTIFIERS: Name and Date of confirmedby patient verbally. FALL SCREENING: Has the patient had 2 falls in the last year or 1 fall with injury or currently using an Ambulatory Assistive Device (Walker, Cane, Wheelchair, Crutches, etc.)? Yes, Patient High Riskfor Falls What interventions were put in place to prevent falls during this visit? Increased Observations by Caregivers PATIENT GENDER DATA: Female. status: : No status: NO. PATIENT RELEVANT IMPLANT DATA REVIEWED: Not Applicable PATIENT PRESENTS WITH AN IMPLANTABLE OR ATTACHED CUSTOMER PRICING MANAGER: No RADIOLOGY DEPARTMENT: Bone Density PERIPHERAL IV DATA: Not applicable SIGNED BY: DENISE Matt) August 17, 2024 11:03 AM [facility] NoteHNO ID: [id number] Author: AICHA GONZALEZ RT (R) Service: ? Author Type: Technologist Type: Progress Notes Filed: 08/17/2024 11:14 Note Text: Radiology Service Progress Note PATIENT NAME: Geraldine Hairston DATE OF SERVICE: August 17, 2024 TIME: 11:03 AM PATIENT IDENTITY VERIFICATION COMPLETED USING TWO (2) IDENTIFIERS: Name and Date of confirmed by patient verbally. FALL SCREENING: Has the patient had 2 falls in the last year or 1 fall with injury or currently using an Ambulatory Assistive Device (Walker, Cane, Wheelchair, Crutches, etc.)? Yes, Patient High Risk for Falls What interventions were put in place to prevent falls during this visit? Increased Observations by Caregivers PATIENT GENDER DATA: Female. status: : No status: NO. PATIENT RELEVANT IMPLANT DATA REVIEWED: Not Applicable PATIENT PRESENTS WITH AN IMPLANTABLE OR ATTACHED CUSTOMER PRICING MANAGER: No RADIOLOGY DEPARTMENT: Bone Density PERIPHERAL IV DATA: Not applicable SIGNED BY: SOLANGE MattR) August 17, 2024 11:03 [facility]12-06-2024 NoteHNO ID: [id number] Author: BAILEY MADRIGAL, PT Service: ? Author Type: Physical Therapist Type: Progress Notes Filed: 08/14/2024 13:09 Note Text: Episode Visit Count: 4 Therapist That Will Accept/Oversee The Plan Of Care: Bailey Madrigal Start of Care Date: 07/17/24 Onset Date: 12/16/23 Plan of Care Certification Date: 07/17/24 Next Certification Due Date: 08/28/24 REHABILITATION AND SPORTS THERAPY PHYSICAL THERAPY DISCONTINUANCE OF CARE PLAN OF CARE UPDATE: Assessment: Geraldine Hairston is discontinued from Physical Therapy services due to goal achievement.. Patient was seen for 4 visits from Start of Care Date: 07/17/24 to 08/14/2024 and treatment included: Therapeutic exercise and Self-long-term management. Goals for Episode of Care: established 07/17/24 Goals updated on 08/14/2024. Patient will report no falls. -- MET Improve score on Timed Up and Go Test to 8 or less seconds to reflect decreased fall risk. -- NOT MET Patient will demonstrate independent and proper use of assisstive device to allow for improved walking quality and safety therefore reducing the risk of falls. -- MET Perform cleaning her house x 20-30 minutes with decreased report of symptoms / pain. -- MET Patient Goals: reduce LBP and improve balance --MET SUBJECTIVE: Denies falls. Pt. able to self manage symptoms with HEP. Agrees to discharge. Able to clean her house - just needs to take frequent seated rest breaks.. Patient Goals: reduce LBP and improve balance Pain: Pain Pain Level: 0 Pain Location: Back Description: Aching Post Treatment Pain Post Treatment Pain Level: No Change Post Treatment Pain Location: Back PROMIS Scales 08/14/2024 07/17/2024 08/26/2019 Higher is Better Phys Func - Score 33 (moderate dysfunction) 34 (moderate dysfunction) 29 (severe dysfunction) Phys Func - Percentile 4 5 2 Self-Eff Symptom - Score 50 (Average) 41 (Average) Self-Eff Symptom - Percentile 50 18 T-scores: mean of general population = 50. 5 points is clinically meaningfully difference Percentiles provide an indication of how the patient's score ranks in relation to the general population. Higher percentile rankings indicate better function/quality of life. 50th percentile is the average of the general population and indicates half of respondents had a worse score. OBJECTIVE MEASURES WITH LEVEL OF FUNCTION: Gait Gait: Modified Independent Gait Distance (feet): 80' 2x Gait Device: Cane Gait Deviations: General Deviations General Deviations/Observations: Flexed trunk posture, Narrow Base of Support, Arm swing decreased Functional Performance Test Results Assistive Device: Cane Timed Up and Go (sec): 22 sec Timed Up and Go - Condition 2 (sec) : 17 TREATMENT: Therapeutic Exercise: 1: scifit seat 9, 1:1 throughout, subjective collected, level 2, 5 min 2: seated TA activation 4x10 3: seated 55 cm physioball TA push down 10x5 sec 4: seated lumbar flexion 2x10 Skilled Intervention: Patient was educated in proper exercise technique and purpose for exercises. Skilled judgment was used in selection of appropriate interventions. Educated patient on rationale for performing exercises in regards to decreasing fatigue , increase ease of ADL, and ROM and function . Neuromuscular Re-Education: 1: TUG test with SC 3x, requires encouragement to complete as quickly as possible Skilled Intervention: Skilled judgment used to assess appropriate program for balance and coordination activity. Education in proprioceptive/kinesthetic awareness during dynamic activities. Reviewed and educated patient on additions/changes for home program as noted above with an (*). Patient education as noted. Gait Training: Distance (feet): 160 Gait Cues: SC and opposite LE advance at the same time - pt. able to complete consistently with each cycle Assistive Device: cane Assist Level: SBA Skilled Intervention: Patient was provided stand by assist during pre-gait/gait training to prevent falls and insure safety. Facilitated proper gait cycle with the use of verbal, visual, and tactile cues for correction of gait deviations identified in the objective section above. Reviewed and educated patient on additions/changes for home program as noted above with an (*). Self-Long-Term Management: 1: advised for pt. to conintue HEP with compliance 2: discussed that effectiveness of different exercises may change as age and condition of the low back changes 3: advised activity modification as needed to better tolerate activities such as cleaning - ask for assistance as necessary Skilled Intervention: Skilled judgment in the selection of proper modification for activity of daily living/home management based on clinical presentation, deficits, and needs. Reviewed patient specific diagnosis in relation to activities of daily living/home management. Activity progression based on professional ju (more content not included)... [facility]12-06-2024 History of Present illness Narrative* Bailey Madrigal, PT - 08/14/2024 12:31 PM EST Images from the original note were not included. Episode Visit Count: 4 Therapist That Will Accept/Oversee The Plan Of Care: Bailey Madrigal Start of Care Date: 07/17/24 Onset Date: 12/16/23 Plan of Care Certification Date: 07/17/24 Next Certification Due Date: 08/28/24 REHABILITATION AND SPORTS THERAPY PHYSICAL THERAPY DISCONTINUANCE OF CARE PLAN OF CARE UPDATE: Assessment: Geraldine Hairston is discontinued from Physical Therapy services due to goal achievement.. Patient was seen for 4 visits from Start of Care Date: 07/17/24 to 08/14/2024 and treatment included: Therapeutic exercise and Self- long-term management. Goals for Episode of Care: established 07/17/24 Goals updated on 08/14/2024. Patient will report no falls. -- MET Improve score on Timed Up and Go Test to 8 or less seconds to reflect decreased fall risk. -- NOT MET Patient will demonstrate independent and proper use of assisstive device to allow for improved walking quality and safety therefore reducing the risk of falls. -- MET Perform cleaning her house x 20-30 minutes with decreased report of symptoms / pain. -- MET Patient Goals: reduce LBP and improve balance --MET SUBJECTIVE: Denies falls. Pt. able to self manage symptoms with HEP. Agrees to discharge. Able to clean her house - just needs to take frequent seated rest breaks.. Patient Goals: reduce LBP and improve balance Pain: Pain Pain Level: 0 Pain Location: Back Description: Aching Post Treatment Pain Post Treatment Pain Level: No Change Post Treatment Pain Location: Back PROMIS Scales 08/14/2024 07/17/2024 08/26/2019 Higher is Better Phys Func - Score 33 (moderate dysfunction) 34 (moderate dysfunction) 29 (severe dysfunction) Phys Func - Percentile 4 5 2 Self-Eff Symptom - Score 50 (Average) 41 (Average) Self-Eff Symptom - Percentile 50 18 T-scores: mean of general population = 50. 5 points is clinically meaningfully difference Percentiles provide an indication of how the patient's score ranks in relation to the general population. Higher percentile rankings indicate better function/quality of life. 50th percentile is the average of the general population and indicates half of respondents had a worse score. OBJECTIVE MEASURES WITH LEVEL OF FUNCTION: Gait Gait: Modified Independent Gait Distance (feet): 80' 2x Gait Device: Cane Gait Deviations: General Deviations General Deviations/Observations: Flexed trunk posture, Narrow Base of Support, Arm swing decreased Functional Performance Test Results Assistive Device: Cane Timed Up and Go (sec): 22 sec Timed Up and Go - Condition 2 (sec) : 17 TREATMENT: Therapeutic Exercise: 1: scifit seat 9, 1:1 throughout, subjective collected, level 2, 5 min 2: seated TA activation 4x10 3: seated 55 cm physioball TA push down 10x5 sec 4: seated lumbar flexion 2x10 Skilled Intervention: Patient was educated in proper exercise technique and purpose for exercises. Skilled judgment was used in selection of appropriate interventions. Educated patient on rationale for performing exercises in regards to decreasing fatigue , increase ease of ADL, and ROM and function . Neuromuscular Re-Education: 1: TUG test with SC 3x, requires encouragement to complete as quickly as possible Skilled Intervention: Skilled judgment used to assess appropriate program for balance and coordination activity. Education in proprioceptive/kinesthetic awareness during dynamic activities. Reviewed and educated patient on additions/changes for home program as noted above with an (*). Patient education as noted. Gait Training: Distance (feet): 160 Gait Cues: SC and opposite LE advance at the same time - pt. able to complete consistently with each cycle Assistive Device: cane Assist Level: SBA Skilled Intervention: Patient was provided stand by assist during pre-gait/gait training to preventfalls and insure safety. Facilitated proper gait cycle with the use of verbal, visual, and tactile cues for correction of gait deviations identified in the objective section above. Reviewed and educated patient on additions/changes for home program as noted above with an (*). Self-Long-Term Management: 1: advised for pt. to conintue HEP with compliance 2: discussed that effectiveness of different exercises may change as age and condition of the low back changes 3: advised activity modification as needed to better tolerate activities such as cleaning - ask forassistance as necessary Skilled Intervention: Skilled judgment in the selection of proper modification for activity of daily living/home management based on clinical presentation, deficits, and needs. Reviewed patient specific diagnosis in relation to activities of daily living/home management. Activity progression based on professional judgement. Minimum verbal cues for maintaining neutral spine alignment. Reviewed and educated patient on additions/changes for home program as noted above with an (*). Billing Therapeutic Exercise Treatment Minutes: 23 Neuromuscular Re-Education Treatment Minutes: 5 Self-Care/Home Management Treatment Minutes: 5 Gait Training Treatment Minutes: 5 Skilled Treatment Time Minutes (timed and untimed codes): 38 Total Session Time (minutes): 38 Session Start Time : 1230 Session Stop Time : 1308 Bailey Madrigal PT [facility] Telephone encounter Note * Telephone Encounter - Courtney Patrick RN - 08/12/2024 4:00 PM EST Addressed in My Chart encounter 08/07/24. Courtney Patrick RN [facility]12-04-[facility] Miscellaneous Notes* Telephone Encounter - Courtney Patrick RN - 08/12/2024 4:00 PM EST Addressed in My Chart encounter 08/07/24. Courtney Patrick RN * Telephone Encounter - Aquiles Jackson MA - 08/07/2024 3:49 PM EST Left message to call office. 08/07/2024 3:49 PM * Telephone Encounter - Nguyễn Stringer APRN.CNS - 08/07/2024 3:23 PM EST Switch to Bactrrim. Recheck urine order is already placed. She can come in for recheck / OV if she would like, * Telephone Encounter - Liyah Layne LPN - 08/07/2024 11:20 AM EST patient is still c/o urinary frequency and pressure to have to go. Patient will complete antibiotics today for UTI. PATIENT is wanting to know if she needs checked again? Patient was treated for this UTI in urgent care. Please review and advise further. Liyah Layne LPN documented [facility]11-29-[facility] Telephone encounter Note * Telephone Encounter - Aquiles Jackson MA - 08/07/2024 3:49 PM EST Left message to call office. 08/07/2024 3:49 PM [facility]11-[facility] Telephone encounter Note* Telephone Encounter - Nguyễn Stringer APRN.KOFI - 08/07/2024 3:23 PM EST Switch to Bactrrim. Recheck urine order is already placed. She can come in for recheck / OV if she would like, [facility]11-29-[facility] History of Present illness Narrative* Bailey Madrigal, PT - 08/07/2024 12:57 PM EST Program_ID:[id number] Access Code: [email or web address] URL: [email or web address] Date: 08-07-2024 Prepared By: Bailey Madrigal Program Notes Exercises - Hooklying Single Knee to Chest Stretch - 2-3 x daily - 7 x weekly - 1 sets - 3 reps - Seated Transversus Abdominis Bracing - 2 x daily - 7 x weekly - 2 sets - 10 reps - Supine Posterior Pelvic Tilt - 2 x daily - 7 x weekly - 2 sets - 5 reps - Standing Anti-Rotation Press with Anchored Resistance - 2 x daily - 7 x weekly - 2 sets - 15 reps * Bailey Madrigal, PT - 08/07/2024 12:30 PM EST Episode Visit Count: 3 Therapist That Will Accept/Oversee The Plan Of Care: Bailey Madrigal Start of Care Date: 07/17/24 Onset Date: 12/16/23 Plan of Care Certification Date: 07/17/24 Next Certification Due Date: 08/28/24 REHABILITATION AND SPORTS THERAPY PHYSICAL THERAPY TREATMENT NOTE ASSESSMENT: Geraldine Hairston tolerated the session with decreased symptoms. She demonstrated difficulty with standing TA stabilization, requiring cues to avoid trunk leaning each direction.. The patient will continue to benefit from ongoing skilled physical therapy to progress toward set goals. PLAN FOR NEXT VISIT: continue standing TA stabilization strengthening SUBJECTIVE: Pt. reports that she is feeling better and continues to notices less back pain. She attributes a lot of her symptoms being due to the resolving bladder infections. Patient Goals: reduce LBP and improve balance Pain: Pain Pain Level: 4 Pain Location: Back Description: Aching OBJECTIVE MEASURES WITH LEVEL OF FUNCTION: TREATMENT: Therapeutic Exercise: 1: scifit seat 9, 1:1 throughout, subjective collected, level 2, 5 min (requires cues to not pedal as fast as she can) 2: hook lying PPT 4x10 with wedge under the head 3: hook lying PPT 2x5 10 sec hold 4: paloff press 2x15 each side, orange band 5: stir the pot 10x each direction, each side x 2 sets, orange band 6: orange band issued 7: seated TA 2x10 Skilled Intervention: Patient was educated in proper exercise technique and purpose for exercises. Provided written instruction for home exercise program to facilitate proper performance and compliance. Correct performance of therapeutic exercises was facilitated with verbal, visual, and tactile cuing. Educated patient on rationale for performing exercises in regards to decreasing fatigue , increase ease of ADL, and ROM and function . Patient education as noted. Billing Therapeutic Exercise Treatment Minutes: 40 Skilled Treatment Time Minutes (timed and untimed codes): 40 Total Session Time (minutes): 40 Session Start Time : 1225 Session Stop Time : 1305 Bailey Madrigal PT documented in this encounterK[facility]11-29-[facility]24 NoteHNO ID: [id number] Author: BAILEY MADRIGAL PT Service: ? Author Type: Physical Therapist Type: Progress Notes Filed: 08/07/2024 13:06 Note Text: Episode Visit Count: 3 Therapist That Will Accept/Oversee The Plan Of Care: Bailey Madrigal Start of Care Date: 07/17/24 Onset Date: 12/16/23 Plan of Care Certification Date: 07/17/24 Next Certification Due Date: 08/28/24 REHABILITATION AND SPORTS THERAPY PHYSICAL THERAPY TREATMENT NOTE ASSESSMENT: Geraldine Hairston tolerated the session with decreased symptoms. She demonstrated difficulty with standing TA stabilization, requiring cues to avoid trunk leaning each direction.. The patient will continue to benefit from ongoing skilled physical therapy to progress toward set goals. PLAN FOR NEXT VISIT: continue standing TA stabilization strengthening SUBJECTIVE: Pt. reports that she is feeling better and continues to notices less back pain. She attributes a lot of her symptoms being due to the resolving bladder infections. Patient Goals: reduce LBP and improve balance Pain: Pain Pain Level: 4 Pain Location: Back Description: Aching OBJECTIVE MEASURES WITH LEVEL OF FUNCTION: TREATMENT: Therapeutic Exercise: 1: scifit seat 9, 1:1 throughout, subjective collected, level 2, 5 min (requires cues to not pedal as fast as she can) 2: hook lying PPT 4x10 with wedge under the head 3: hook lying PPT 2x5 10 sec hold 4: paloff press 2x15 each side, orange band 5: stir the pot 10x each direction, each side x 2 sets, orange band 6: orange band issued 7: seated TA 2x10 Skilled Intervention: Patient was educated in proper exercise technique and purpose for exercises. Provided written instruction for home exercise program to facilitate proper performance and compliance. Correct performance of therapeutic exercises was facilitated with verbal, visual, and tactile cuing. Educated patient on rationale for performing exercises in regards to decreasing fatigue , increase ease of ADL, and ROM and function . Patient education as noted. Billing Therapeutic Exercise Treatment Minutes: 40 Skilled Treatment Time Minutes (timed and untimed codes): 40 Total Session Time (minutes): 40 Session Start Time : 1225 Session Stop Time : 1305 Bailey Madrigal, [facility]11-29-2024 Telephone encounter Note * Telephone Encounter - Liyah Layne LPN - 08/07/2024 11:20 AM EST patient is still c/o urinary frequency and pressure to have to go. Patient will complete antibiotics today for UTI. PATIENT is wanting to know if she needs checked again? Patient was treated for this UTI in urgent care. Please review and advise further. Liyah Layne LPN [facility]11-18-[facility] History of Present illness Narrative* Bailey Madrigal, PT - 07/27/2024 3:56 PM EST Program_ID:[id number] Access Code: [email or web address] URL: [email or web address] Date: 07-27-2024 Prepared By: Bailey Madrigal Program Notes Exercises - Hooklying Single Knee to Chest Stretch - 2-3 x daily - 7 x weekly - 1 sets - 3 reps - Supine Lower Trunk Rotation - 2-3 x daily - 7 x weekly - 2 sets - 10 reps - Seated Transversus Abdominis Bracing - 1 x daily - 7 x weekly - 2 sets - 10 reps * Bailey Madrigal, PT - 07/27/2024 3:25 PM EST Episode Visit Count: 2 Therapist That Will Accept/Oversee The Plan Of Care: Bailey Madrigal Start of Care Date: 07/17/24 Onset Date: 12/16/23 Plan of Care Certification Date: 07/17/24 Next Certification Due Date: 08/28/24 REHABILITATION AND SPORTS THERAPY PHYSICAL THERAPY TREATMENT NOTE ASSESSMENT: Geraldine Hairston tolerated the session with increased symptoms. She demonstrated difficulty with completing exercises too quickly with jerking movements of the body when doing the stepper warm up as well as supine pelvic rotations. Pt. Followed cues to slow down and she reported less pain with this correction. The patient will continue to benefit from ongoing skilled physical therapy to progress toward set goals. PLAN FOR NEXT VISIT: assess symptoms. assess if symptoms are continued to improve following treatment for bladder infection. Continue core stabilziation strengthening. add in balance training SUBJECTIVE: Pt. reports doing the HEP for 3 days and then seeing express care. Dx with UTI and treated. She wants to try the exercises again. Patient Goals: reduce LBP and improve balance Pain: Pain Pain Level: 1 Pain Location: Back Description: Aching OBJECTIVE MEASURES WITH LEVEL OF FUNCTION: TREATMENT: Therapeutic Exercise: 1: scifit seat 9, 1:1 throughout, subjective collected, level 2, 5 min (requires cues to not pedal as fast as she can) 2: single leg SKTC stretch 3x30 sec each side (denies incresaed pain) 3: hook lying pelvic rotations 3x20 (cues to move slowly) 4: BKTC stretch 3x30 sec side 5: seated lumbar flexion 1x10 (complained of worse pain) Skilled Intervention: Patient was educated in proper exercise technique and purpose for exercises. Skilled judgment was used in selection of appropriate interventions. Provided written instruction for home exercise program to facilitate proper performance and compliance. Correct performance of therapeutic exercises was facilitated with verbal, visual, and tactile cuing. Educated patient on rationale for performing exercises in regards to decreasing fatigue , increase ease of ADL, and ROM and function . Patient education as noted. Self-Long-Term Management: 1: discussed that symptoms resolving with rest or stopping a certian movment suggets MSK involvement, however, pain that does not resolve with position change should be evaluated by her Dr. 2: advised that exercise does not have to be fast jerking movement. 3: discussed that any exercise that causes increased pain is not helpful, dc exercises that cause increased pain Skilled Intervention: Skilled judgment in the selection of proper modification for activity of daily living/home management based on clinical presentation, deficits, and needs. Provided written instruction for activities of daily living techniques to facilitate proper performance and compliance. Reviewed patient specific diagnosis in relation to activities of daily living/home management. Activity progression based on professional judgement. Provided written instruction for home program to facilitate proper performance and compliance. Correct performance of home program was facilitated with verbal, visual, and tactile cueing. Billing Therapeutic Exercise Treatment Minutes: 35 Self-Care/Home Management Treatment Minutes: 5 Skilled Treatment Time Minutes (timed and untimed codes): 40 Total Session Time (minutes): 40 Session Start Time : 1523 Session Stop Time : 1603 Bailey Madrigal PT documented in this encounterK[facility]11-18-2024 NoteHNO ID: [id number] Author: BAILEY MADRIGAL PT Service: ? Author Type: Physical Therapist Type: Progress Notes Filed: 07/27/2024 16:04 Note Text: Episode Visit Count: 2 Therapist That Will Accept/Oversee The Plan Of Care: Bailey Madrigal Start of Care Date: 07/17/24 Onset Date: 12/16/23 Plan of Care Certification Date: 07/17/24 Next Certification Due Date: 08/28/24 REHABILITATION AND SPORTS THERAPY PHYSICAL THERAPY TREATMENT NOTE ASSESSMENT: Geraldine Hairston tolerated the session with increased symptoms. She demonstrated difficulty with completing exercises too quickly with jerking movements of the body when doing the stepper warm up as well as supine pelvic rotations. Pt. Followed cues to slow down and she reported less pain with this correction. The patient will continue to benefit from ongoing skilled physical therapy to progress toward set goals. PLAN FOR NEXT VISIT: assess symptoms. assess if symptoms are continued to improve following treatment for bladder infection. Continue core stabilziation strengthening. add in balance training SUBJECTIVE: Pt. reports doing the HEP for 3 days and then seeing express care. Dx with UTI and treated. She wants to try the exercises again. Patient Goals: reduce LBP and improve balance Pain: Pain Pain Level: 1 Pain Location: Back Description: Aching OBJECTIVE MEASURES WITH LEVEL OF FUNCTION: TREATMENT: Therapeutic Exercise: 1: scifit seat 9, 1:1 throughout, subjective collected, level 2, 5 min (requires cues to not pedal as fast as she can) 2: single leg SKTC stretch 3x30 sec each side (denies incresaed pain) 3: hook lying pelvic rotations 3x20 (cues to move slowly) 4: BKTC stretch 3x30 sec side 5: seated lumbar flexion 1x10 (complained of worse pain) Skilled Intervention: Patient was educated in proper exercise technique and purpose for exercises. Skilled judgment was used in selection of appropriate interventions. Provided written instruction for home exercise program to facilitate proper performance and compliance. Correct performance of therapeutic exercises was facilitated with verbal, visual, and tactile cuing. Educated patient on rationale for performing exercises in regards to decreasing fatigue , increase ease of ADL, and ROM and function . Patient education as noted. Self-Long-Term Management: 1: discussed that symptoms resolving with rest or stopping a certian movment suggets MSK involvement, however, pain that does not resolve with position change should be evaluated by her Dr. 2: advised that exercise does not have to be fast jerking movement. 3: discussed that any exercise that causes increased pain is not helpful, dc exercises that cause increased pain Skilled Intervention: Skilled judgment in the selection of proper modification for activity of daily living/home management based on clinical presentation, deficits, and needs. Provided written instruction for activities of daily living techniques to facilitate proper performance and compliance. Reviewed patient specific diagnosis in relation to activities of daily living/home management. Activity progression based on professional judgement. Provided written instruction for home program to facilitate proper performance and compliance. Correct performance of home program was facilitated with verbal, visual, and tactile cueing. Billing Therapeutic Exercise Treatment Minutes: 35 Self-Care/Home Management Treatment Minutes: 5 Skilled Treatment Time Minutes (timed and untimed codes): 40 Total Session Time (minutes): 40 Session Start Time : 1523 Session Stop Time : 1603 [address], [facility]11-18-2024 History of Present illness Narrative* Nguyễn Stringer APRN.LEAD BURNER SUPERVISOR - 07/27/2024 12:32 PM EST SUBJECTIVE: Shingrix Vaccine(2 of 3) due on 06/19/2016 Bone Density Screening due on 04/11/2024 HPI Geraldine Hairston is a 73 year old female. PMH significant for ACTIVE PROBLEM LIST Regional Enteritis of Large Intestine (Hcc) Irritable Bowel Syndrome Osteoporosis Anxiety State Depression Carpal Tunnel Syndrome Melanocytic Nevus: post scalp & nape/neck: IDN Seborrheic Keratosis Solar Lentigo Actinic Damage///Sun-damaged skin Gerd (Gastroesophageal Reflux Disease) Hypothyroidism Abnormal Mammogram, Unspecified Raynauds Syndrome Chronic Right Shoulder Pain Gait Instability Presents today for follow-up visit, expressed. Visit to [facility] July 25 2024 for dysuria treated with Macrobid. Today reports feeling improved but still with some dysuria, frequency and urgency. Afebrile, no current back pain. Some abdominal discomfort. Notes prior history of UTI with severe illness. Review of Systems Constitutional: Negative. Neurological: Positive for headaches. Objective BP 89/54 Pulse 88 Resp 16 Wt 42 kg (92 lb 9.5 oz) BMI 20.39 kg/m Physical Exam Vitals and nursing note reviewed. Constitutional: Appearance: Normal appearance. HENT: Head: Normocephalic. Eyes: Conjunctiva/sclera: Conjunctivae normal. Cardiovascular: Rate and Rhythm: Normal rate. Pulmonary: Effort: Pulmonary effort is normal. Musculoskeletal: Cervical back: Tenderness present. Muscular tenderness present. Skin: General: Skin is warm and dry. Neurological: General: No focal deficit present. Mental Status: She is alert and oriented to person, place, and time. Comments: CN grossly intact ALLERGIES Allergen Reactions Codeine Nausea,dizziness Percocet [Oxycodone* nausea, dizziness Medications nitrofurantoin monohydrate and macrocrystal (MACROBID) 100 mg capsule Take 1 capsule by mouth two times a day with meals for 7 days. phenazopyridine (PYRIDIUM) 200 mg tablet Take 1 tablet by mouth three times a day as needed for up to 3 days. gabapentin (NEURONTIN) 600 mg tablet Take 1 tablet by mouth two times a day. levothyroxine (SYNTHROID) 25 mcg tablet Take 1 tablet by mouth daily before breakfast. NIFEdipine ER (PROCARDIA XL) 30 mg 24 hr tablet Take 6 tablets by mouth once daily. Adjust as direceted naproxen (NAPROSYN) 500 mg tablet Take 1 tablet by mouth two times a day as needed (for pain/inflammation). Take with food. lidocaine (LIDODERM) 5 % Apply to the right rib cage once a day as needed, wear for 12 hours and then remove. famotidine (PEPCID) 40 mg tablet Take 1 tablet by mouth once daily. atorvastatin (LIPITOR) 20 mg tablet Take 20 mg by mouth daily at bedtime. omeprazole (PRILOSEC) 40 mg capsule Take 1 capsule by mouth once daily. (Dr. Swan--GI)--insurancewould not cover 40 mg twice daily dicyclomine (BENTYL) 20 mg tablet Take 1 tablet by mouth three times daily. (Dr. Swan prescribing) budesonide, enteric coated (ENTOCORT EC) 3 mg 24 hr capsule Take 3 capsules by mouth once daily. (Dr. John Swan) Calcium-Cholecalciferol, D3, (CALCIUM 600 + D) 600-125 mg-unit tab Take 1 tablet by mouth twice daily. aspirin, enteric coated (ASPIRIN, ENTERIC COATED) 325 mg EC tablet Take 1 tablet by mouth once daily. PARoxetine (PAXIL) 30 mg tablet Take 2.5 tablets by mouth once daily. (from psychiatrist) busPIRone HCl (BUSPAR) 30 mg tablet Take 1 tablet by mouth twice daily. (Gets from psychiatrist now) LORazepam 0.5 mg Tab Take 1 tablet by mouth three times daily as needed. Prescribing Dr: Keely Moore MD DAILY MULTIVITAMIN TAB IMODIUM A-D 2 MG TAB Take 2 mg by mouth as needed (When needed). METAMUCIL SMOOTH TEXTURE PACKET one tablespoon in the am with a full glass of water and one tablespoon again in the pm again with a full glass of water daily. SALINE MIST 0.65 % NASAL SPRAY AEROSOL Two sprays each nostril twice daily. PAST MEDICAL HISTORY Diagnosis Date Anxiety state, unspecified Depressive disorder, not elsewhere classified GERD (gastroesophageal reflux disease) controlled with PPI; follows with Dr. Swan Hypothyroid Irritable bowel syndrome IBS; Dr. Swan--continues follow up; last colonosocpy was at least 2002, possibly 2005. Osteoporosis, unspecified Raynauds syndrome REG ENTERITIS, LG INTEST 06/06/2005 Social History Tobacco Use Smoking status: Never Smokeless tobacco: Never Vaping Use Vaping status: Never Used Substance Use Topics Alcohol use: No Drug use: No ASSESSMENT/PLAN: 1. Urinary tract infection with hematuria, site unspecified - ICD9: 599.0, 599.70, ICD10: N39.0, R31.9 acute UTI Continue with current antibiotic until gone, if UTI symptoms are still present then take Macrobid for another 7 days Recheck urine and lab with urinalysis and reflex culture in 3 to 4 weeks. - URINALYSIS WITH MICROSCOPIC, REFLEX CULTURE - NITROFURANTOIN MONOHYDRATE & MACROCRYSTAL 100 MG ORAL CAP Nguyễn Stringer, FITNESS COACH.LEAD BURNER SUPERVISOR Medical Decision Making: Problems: Low: Acute, uncomplicated illness or injury Data: Unique test(s) ordered: 1 Risk: Moderate: Drug management Medical Decision Making Level: 3 - [facility] NoteHNO ID: [id number] Author: NGUYỄN STRINGER APRN.LEAD BURNER SUPERVISOR Service: ? Author Type: Nurse Specialist Type: Progress Notes Filed: 07/27/2024 12:54 Note Text: SUBJECTIVE: Shingrix Vaccine(2 of 3) due on 06/19/2016 Bone Density Screening due on 04/11/2024 HPI Geraldine Hairston is a 73 year old female. PMH significant for ACTIVE PROBLEM LIST Regional Enteritis of Large Intestine (Hcc) Irritable Bowel Syndrome Osteoporosis Anxiety State Depression Carpal Tunnel Syndrome Melanocytic Nevus: post scalp AND nape/neck: IDN Seborrheic Keratosis Solar Lentigo Actinic Damage///Sun-damaged skin Gerd (Gastroesophageal Reflux Disease) Hypothyroidism Abnormal Mammogram, Unspecified Raynauds Syndrome Chronic Right Shoulder Pain Gait Instability Presents today for follow-up visit, expressed. Visit to [facility] July 25 2024 for dysuria treated with Macrobid. Today reports feeling improved but still with some dysuria, frequency and urgency. Afebrile, no current back pain. Some abdominal discomfort. Notes prior history of UTI with severe illness. Review of Systems Constitutional: Negative. Neurological: Positive for headaches. Objective BP 89/54 Pulse 88 Resp 16 Wt 42 kg (92 lb 9.5 oz) BMI 20.39 kg/m? Physical Exam Vitals and nursing note reviewed. Constitutional: Appearance: Normal appearance. HENT: Head: Normocephalic. Eyes: Conjunctiva/sclera: Conjunctivae normal. Cardiovascular: Rate and Rhythm: Normal rate. Pulmonary: Effort: Pulmonary effort is normal. Musculoskeletal: Cervical back: Tenderness present. Muscular tenderness present. Skin: General: Skin is warm and dry. Neurological: General: No focal deficit present. Mental Status: She is alert and oriented to person, place, and time. Comments: CN grossly intact ALLERGIES Allergen Reactions Codeine Nausea,dizziness Percocet [Oxycodone* nausea, dizziness Medications nitrofurantoin monohydrate and macrocrystal (MACROBID) 100 mg capsule Take 1 capsule by mouth two times a day with meals for 7 days. phenazopyridine (PYRIDIUM) 200 mg tablet Take 1 tablet by mouth three times a day as needed for up to 3 days. gabapentin (NEURONTIN) 600 mg tablet Take 1 tablet by mouth two times a day. levothyroxine (SYNTHROID) 25 mcg tablet Take 1 tablet by mouth daily before breakfast. NIFEdipine ER (PROCARDIA XL) 30 mg 24 hr tablet Take 6 tablets by mouth once daily. Adjust as direceted naproxen (NAPROSYN) 500 mg tablet Take 1 tablet by mouth two times a day as needed (for pain/inflammation). Take with food. lidocaine (LIDODERM) 5 % Apply to the right rib cage once a day as needed, wear for 12 hours and then remove. famotidine (PEPCID) 40 mg tablet Take 1 tablet by mouth once daily. atorvastatin (LIPITOR) 20 mg tablet Take 20 mg by mouth daily at bedtime. omeprazole (PRILOSEC) 40 mg capsule Take 1 capsule by mouth once daily. (Dr. Swan--GI)--insurance would not cover 40 mg twice daily dicyclomine (BENTYL) 20 mg tablet Take 1 tablet by mouth three times daily. (Dr. Swan prescribing) budesonide, enteric coated (ENTOCORT EC) 3 mg 24 hr capsule Take 3 capsules by mouth once daily. (Dr. John Swan) Calcium-Cholecalciferol, D3, (CALCIUM 600 + D) 600-125 mg-unit tab Take 1 tablet by mouth twice daily. aspirin, enteric coated (ASPIRIN, ENTERIC COATED) 325 mg EC tablet Take 1 tablet by mouth once daily. PARoxetine (PAXIL) 30 mg tablet Take 2.5 tablets by mouth once daily. (from psychiatrist) busPIRone HCl (BUSPAR) 30 mg tablet Take 1 tablet by mouth twice daily. (Gets from psychiatrist now) LORazepam 0.5 mg Tab Take 1 tablet by mouth three times daily as needed. Prescribing Dr: Keely Moore MD DAILY MULTIVITAMIN TAB IMODIUM A-D 2 MG TAB Take 2 mg by mouth as needed (When needed). METAMUCIL SMOOTH TEXTURE PACKET one tablespoon in the am with a full glass of water and one tablespoon again in the pm again with a full glass of water daily. SALINE MIST 0.65 % NASAL SPRAY AEROSOL Two sprays each nostril twice daily. PAST MEDICAL HISTORY Diagnosis Date Anxiety state, unspecified Depressive disorder, not elsewhere classified GERD (gastroesophageal reflux disease) controlled with PPI; follows with Dr. Swan Hypothyroid Irritable bowel syndrome IBS; Dr. Swan--continues follow up; last colonosocpy was at least 2002, possibly 2005. Osteoporosis, unspecified Raynauds syndrome REG ENTERITIS, LG INTEST 06/06/2005 Social History Tobacco Use Smoking status: Never Smokeless tobacco: Never Vaping Use Vaping status: Never Used Substance Use Topics Alcohol use: No Drug use: No ASSESSMENT/PLAN: 1. Urinary tract infection with hematuria, site unspecified - ICD9: 599.0, 599.70, ICD10: N39.0, R31.9 acute UTI Continue with current antibiotic until gone, if UTI symptoms are still present then take Macrobid for another 7 days Recheck urine and lab with urinal (more content not included)...[facility]11-16-2024 NoteHNO ID: [id number] Author: CARMEN MIRANDA APRN.DEALERSHIP MANAGER Service: ? Author Type: Nurse Practitioner Type: Progress Notes Filed: 07/25/2024 11:58 Note Text: Antwan Hairston is a 73 year old female who presents with symptoms of UTI x 2 weeks. UTI Associated symptoms include frequency and urgency. Pertinent negatives include no nausea and no vomiting. Patient states that she has had urinary symptoms that started greater than 2 weeks ago. She reports dysuria, urinary urgency and urinary frequency with generalized abdominal pain and low back pain. Patient also reports diarrhea x 1 day. She reports having a history of IBS and sees a GI provider in [place]. She states that she recently started physical therapy for her back due to disk narrowing. Patient states that she had some inability to urinate and painful urination but is unsure how long ago. She states that has now resolved but the urinary urgency and frequency have now worsen. She denies fever, nausea, vomiting, vaginal odor and vaginal discharge. She reports eating and drinking well. Review of Systems Constitutional: Negative for fever. HENT: Negative. Eyes: Negative. Respiratory: Negative. Cardiovascular: Negative. Gastrointestinal: Positive for abdominal pain and diarrhea. Negative for nausea and vomiting. Genitourinary: Positive for dysuria, frequency and urgency. Musculoskeletal: Positive for back pain. Skin: Negative. Neurological: Negative. Psychiatric/Behavioral: Negative. PAST MEDICAL HISTORY Diagnosis Date Anxiety state, unspecified Depressive disorder, not elsewhere classified GERD (gastroesophageal reflux disease) controlled with PPI; follows with Dr. Swan Hypothyroid Irritable bowel syndrome IBS; Dr. Swan--continues follow up; last colonosocpy was at least 2002, possibly 2005. Osteoporosis, unspecified Raynauds syndrome REG ENTERITIS, LG INTEST 06/06/2005 PAST SURGICAL HISTORY Procedure Laterality Date COLONOSCOPY FLX DX W/COLLJ SPEC WHEN PFRMD , 02/09, 01/12, Colonoscopy PAST SURGICAL HISTORY OF 80s ankle surgery (L) PAST SURGICAL HISTORY OF 89 cataract surgery PAST SURGICAL HISTORY OF 07/09/2001,09/11 EMB PAST SURGICAL HISTORY OF Right 02/10/2015 right wrist fracture ORIF (Dr. Guerrero) PAST SURGICAL HISTORY OF Right 11/2015 Hip Fracture after fall ALLERGIES Codeine and Percocet [Oxycodone-Acetaminophen] MEDICATIONS gabapentin (NEURONTIN) 600 mg tablet Take 1 tablet by mouth two times a day. levothyroxine (SYNTHROID) 25 mcg tablet Take 1 tablet by mouth daily before breakfast. NIFEdipine ER (PROCARDIA XL) 30 mg 24 hr tablet Take 6 tablets by mouth once daily. Adjust as direceted naproxen (NAPROSYN) 500 mg tablet Take 1 tablet by mouth two times a day as needed (for pain/inflammation). Take with food. lidocaine (LIDODERM) 5 % Apply to the right rib cage once a day as needed, wear for 12 hours and then remove. famotidine (PEPCID) 40 mg tablet Take 1 tablet by mouth once daily. atorvastatin (LIPITOR) 20 mg tablet Take 20 mg by mouth daily at bedtime. omeprazole (PRILOSEC) 40 mg capsule Take 1 capsule by mouth once daily. (Dr. Swan--GI)--insurance would not cover 40 mg twice daily dicyclomine (BENTYL) 20 mg tablet Take 1 tablet by mouth three times daily. (Dr. Swan prescribing) budesonide, enteric coated (ENTOCORT EC) 3 mg 24 hr capsule Take 3 capsules by mouth once daily. (Dr. John Swan) Calcium-Cholecalciferol, D3, (CALCIUM 600 + D) 600-125 mg-unit tab Take 1 tablet by mouth twice daily. aspirin, enteric coated (ASPIRIN, ENTERIC COATED) 325 mg EC tablet Take 1 tablet by mouth once daily. PARoxetine (PAXIL) 30 mg tablet Take 2.5 tablets by mouth once daily. (from psychiatrist) busPIRone HCl (BUSPAR) 30 mg tablet Take 1 tablet by mouth twice daily. (Gets from psychiatrist now) LORazepam 0.5 mg Tab Take 1 tablet by mouth three times daily as needed. Prescribing Dr: Keely Moore MD DAILY MULTIVITAMIN TAB IMODIUM A-D 2 MG TAB Take 2 mg by mouth as needed (When needed). METAMUCIL SMOOTH TEXTURE PACKET one tablespoon in the am with a full glass of water and one tablespoon again in the pm again with a full glass of water daily. SALINE MIST 0.65 % NASAL SPRAY AEROSOL Two sprays each nostril twice daily. nitrofurantoin monohydrate and macrocrystal (MACROBID) 100 mg capsule Take 1 capsule by mouth two times a day with meals for 7 days. phenazopyridine (PYRIDIUM) 200 mg tablet Take 1 tablet by mouth three times a day as needed for up to 3 days. FAMILY HISTORY Problem Relation Age of Onset Cancer Mother uterus/had hysterectomy/bladder, breast lumps removed in her 30's weren't cancerous. Hypertension Mother Allergies Mother Anesthesia Mother other (Bladder Cancer) Mother Diabetes Father other (Dementia) Father Hypertension Maternal Grandfather Hypertension Maternal Aunt x1 Hypertension Maternal Uncle x4 Lorene (more content not included)...[facility]11-16-2024 History of Present illness Narrative* Carmen Miranda, MIMI.[facility] - 07/25/2024 11:39 AM EST Subjective Geraldine Hairston is a 73 year old female who presents with symptoms of UTI x 2 weeks. UTI Associated symptoms include frequency and urgency. Pertinent negatives include no nausea and no vomiting. Patient states that she has had urinary symptoms that started greater than 2 weeks ago. She reportsdysuria, urinary urgency and urinary frequency with generalized abdominal pain and low back pain. Patient also reports diarrhea x 1 day. She reports having a history of IBS and sees a GI provider in [place]. She states that she recently started physical therapy for her back due to disk narrowing.Patient states that she had some inability to urinate and painful urination but is unsure how long ago. She states that has now resolved but the urinary urgency and frequency have now worsen. She denies fever, nausea, vomiting, vaginal odor and vaginal discharge. She reports eating and drinking well. Review of Systems Constitutional: Negative for fever. HENT: Negative. Eyes: Negative. Respiratory: Negative. Cardiovascular: Negative. Gastrointestinal: Positive for abdominal pain and diarrhea. Negative for nausea and vomiting. Genitourinary: Positive for dysuria, frequency and urgency. Musculoskeletal: Positive for back pain. Skin: Negative. Neurological: Negative. Psychiatric/Behavioral: Negative. PAST MEDICAL HISTORY Diagnosis Date Anxiety state, unspecified Depressive disorder, not elsewhere classified GERD (gastroesophageal reflux disease) controlled with PPI; follows with Dr. Swan Hypothyroid Irritable bowel syndrome IBS; Dr. Swan--continues follow up; last colonosocpy was at least 2002, possibly 2005. Osteoporosis, unspecified Raynauds syndrome REG ENTERITIS, LG INTEST 06/06/2005 PAST SURGICAL HISTORY Procedure Laterality Date COLONOSCOPY FLX DX W/COLLJ SPEC WHEN PFRMD , 02/09, 01/12, Colonoscopy PAST SURGICAL HISTORY OF 80s ankle surgery (L) PAST SURGICAL HISTORY OF 89 cataract surgery PAST SURGICAL HISTORY OF 07/09/2001,09/11 EMB PAST SURGICAL HISTORY OF Right 02/10/2015 right wrist fracture ORIF (Dr. Guerrero) PAST SURGICAL HISTORY OF Right 11/2015 Hip Fracture after fall ALLERGIES Codeine and Percocet [Oxycodone-Acetaminophen] MEDICATIONS gabapentin (NEURONTIN) 600 mg tablet Take 1 tablet by mouth two times a day. levothyroxine (SYNTHROID) 25 mcg tablet Take 1 tablet by mouth daily before breakfast. NIFEdipine ER (PROCARDIA XL) 30 mg 24 hr tablet Take 6 tablets by mouth once daily. Adjust as direceted naproxen (NAPROSYN) 500 mg tablet Take 1 tablet by mouth two times a day as needed (for pain/inflammation). Take with food. lidocaine (LIDODERM) 5 % Apply to the right rib cage once a day as needed, wear for 12 hours and then remove. famotidine (PEPCID) 40 mg tablet Take 1 tablet by mouth once daily. atorvastatin (LIPITOR) 20 mg tablet Take 20 mg by mouth daily at bedtime. omeprazole (PRILOSEC) 40 mg capsule Take 1 capsule by mouth once daily. (Dr. Swan--GI)--insurancewould not cover 40 mg twice daily dicyclomine (BENTYL) 20 mg tablet Take 1 tablet by mouth three times daily. (Dr. Swan prescribing) budesonide, enteric coated (ENTOCORT EC) 3 mg 24 hr capsule Take 3 capsules by mouth once daily. (Dr. John Swan) Calcium-Cholecalciferol, D3, (CALCIUM 600 + D) 600-125 mg-unit tab Take 1 tablet by mouth twice daily. aspirin, enteric coated (ASPIRIN, ENTERIC COATED) 325 mg EC tablet Take 1 tablet by mouth once daily. PARoxetine (PAXIL) 30 mg tablet Take 2.5 tablets by mouth once daily. (from psychiatrist) busPIRone HCl (BUSPAR) 30 mg tablet Take 1 tablet by mouth twice daily. (Gets from psychiatrist now) LORazepam 0.5 mg Tab Take 1 tablet by mouth three times daily as needed. Prescribing Dr: Keely Moore MD DAILY MULTIVITAMIN TAB IMODIUM A-D 2 MG TAB Take 2 mg by mouth as needed (When needed). METAMUCIL SMOOTH TEXTURE PACKET one tablespoon in the am with a full glass of water and one tablespoon again in the pm again with a full glass of water daily. SALINE MIST 0.65 % NASAL SPRAY AEROSOL Two sprays each nostril twice daily. nitrofurantoin monohydrate and macrocrystal (MACROBID) 100 mg capsule Take 1 capsule by mouth two times a day with meals for 7 days. phenazopyridine (PYRIDIUM) 200 mg tablet Take 1 tablet by mouth three times a day as needed for up to 3 days. FAMILY HISTORY Problem Relation Age of Onset Cancer Mother uterus/had hysterectomy/bladder, breast lumps removed in her 30's weren't cancerous. Hypertension Mother Allergies Mother Anesthesia Mother other (Bladder Cancer) Mother Diabetes Father other (Dementia) Father Hypertension Maternal Grandfather Hypertension Maternal Aunt x1 Hypertension Maternal Uncle x4 Diabetes Paternal Uncle Social History Tobacco Use Smoking status: Never Smokeless tobacco: Never Vaping Use Vaping status: Never Used Substance Use Topics Alcohol use: No Drug use: No BP 109/71 Pulse 83 Temp 36.3 C (97.3 F) (Left Tympanic) Resp 16 Wt 42.1 kg (92 lb 13 oz) SpO2 94% BMI 20.44 kg/m Objective Physical Exam Vitals and nursing note reviewed. Constitutional: Appearance: Normal appearance. HENT: Head: Normocephalic. Eyes: Conjunctiva/sclera: Conjunctivae normal. Cardiovascular: Rate and Rhythm: Normal rate and regular rhythm. Pulses: Normal pulses. Heart sounds: Normal heart sounds. Pulmonary: Effort: Pulmonary effort is normal. Breath sounds: Normal breath sounds. Abdominal: General: Abdomen is flat. Palpations: Abdomen is soft. Tenderness: There is abdominal tenderness. There is left CVA tenderness. There is no right CVA tenderness. Genitourinary: Comments: Positive urinalysis, with trace hematuria. Musculoskeletal: General: Normal range of motion. Cervical back: Normal range of motion and neck supple. No tenderness. Lymphadenopathy: Cervical: No cervical adenopathy. Skin: General: Skin is warm and dry. Neurological: General: No focal deficit present. Mental Status: She is alert and oriented to person, place, and time. Psychiatric: Mood and Affect: Mood normal. Behavior: Behavior normal. ASSESSMENT/PLAN: 1. Dysuria - ICD9: 788.1, ICD10: R30.0 (primary diagnosis) acute - UA positive for hugo esterase and hematuria - Send urine for culture - Begin treatment with Macrobid 100 mg BID for 7 days - Patient education for prevention given - NITROFURANTOIN MONOHYDRATE & MACROCRYSTAL 100 MG ORAL CAP - PHENAZOPYRIDINE 200 MG TABLET 2. Urinary tract infection with hematuria, site unspecified - ICD9: 599.0, 599.70, ICD10: N39.0, R31.9 - NITROFURANTOIN MONOHYDRATE & MACROCRYSTAL 100 MG ORAL CAP Discussed plan of care with patient. Reviewed lab results with patient. Patient will be notified ifantibiotic needs to change. Answered all of patient's questions. Antibiotic prescribed with instruction on use. Patient advised to follow-up with PCP in 2-3 days. If symptoms fail to improve or worsen patient advised to be seen in the Emergency Department. Patient agreeable with plan and verbalizesunderstanding. Stephanie Garcia, Student LENS GRINDER ROUGH I have personally seen and examined the patient and performed the medical- decision making components. I have reviewed the Advanced Practice Registered Nurse (FITNESS COACH) student's documentation and verified the findings in the note as written. Any additions or changes are noted in bold/italics. Carmen Miranda APRN.DEALERSHIP MANAGER documented in this [facility] Instructions* Patient Instructions* Stephanie Garcia - 07/25/2024 11:29 AM EST ASSESSMENT/PLAN: 1. Dysuria - ICD9: 788.1, ICD10: R30.0 (primary diagnosis) acute - UA positive for hugo esterase and hematuria - Send urine for culture - Begin treatment with Macrobid 100 mg BID for 7 days - Patient education for prevention given - NITROFURANTOIN MONOHYDRATE & MACROCRYSTAL 100 MG ORAL CAP - PHENAZOPYRIDINE 200 MG TABLET 2. Urinary tract infection with hematuria, site unspecified - ICD9: 599.0, 599.70, ICD10: N39.0, R31.9 - NITROFURANTOIN MONOHYDRATE & MACROCRYSTAL 100 MG ORAL CAP Discussed plan of care with patient. Reviewed lab results with patient. Patient will be notified ifantibiotic needs to change. Answered all of patient's questions. Antibiotic prescribed with instruction on use. Patient advised to follow-up with PCP in 2-3 days. If symptoms fail to improve or worsen patient advised to be seen in the Emergency Department. Patient agreeable with plan and verbalizesunderstanding. Stephanie Garcia, Student LENS GRINDER ROUGH Complete dose of antibiotic Follow-up with PCP in 2-3 days Monitor for signs of infection, fever, increased pain, nausea and or vomiting in the presence of pain. documented in this encounterK[facility]11-[facility] History of Present illness Narrative* Bailey Madrigal, CLAUDIA - 07/17/2024 1:36 PM EST Program_ID:[id number] Access Code: [email or web address] URL: [email or web address] Date: 07-17-2024 Prepared By: Bailey Madrigal Program Notes Exercises - Hooklying Single Knee to Chest Stretch - 2-3 x daily - 7 x weekly - 1 sets - 3 reps - Seated Flexion Stretch - 2-3 x daily - 7 x weekly - 4 sets - 10 reps - Supine Lower Trunk Rotation - 2-3 x daily - 7 x weekly - 2 sets - 10 reps * Bailey Madrigal, PT - 07/17/2024 1:05 PM EST Images from the original note were not included. Episode Visit Count: 1 Therapist That Will Accept/Oversee The Plan Of Care: Bailey Madrigal Start of Care Date: 07/17/24 Onset Date: 12/16/23 Plan of Care Certification Date: 07/17/24 Next Certification Due Date: 08/28/24 Patient Identified by Name and Date of : Yes REHABILITATION AND SPORTS THERAPY PHYSICAL THERAPY EVALUATION PLAN OF CARE: Assessment: Geraldine Hairston presents with diagnosis of gait instability that interferes with cleaning, rising from a chair, standing, walking . The patient presents with impairments in ADL's, balance, gait, independence in exercise, joint mobility, overall function, range of motion, strength, and symptom management. PROMIS (Patient-Reported Outcomes Measurement Information System) scores were reviewed and identified as a rehabilitation concern. Prognosis for therapy is Good due to: current objective clinical presentation, good overall health status, acuteness of condition, good support system/ coping skills, within-session changes, positive past response to therapy . The patient will benefit from skilled therapy services to meet the goals established for this plan of care as noted below. Classification Low Back Pain Classification: Symptom Modulation Goals for Episode of Care: established 07/17/24 Patient will report no falls. Improve score on Timed Up and Go Test to 8 or less seconds to reflect decreased fall risk. Patient will demonstrate independent and proper use of assisstive device to allow for improved walking quality and safety therefore reducing the risk of falls. Perform cleaning her house x 20-30 minutes with decreased report of symptoms / pain. Patient Goals: reduce LBP and improve balance Time Frame for Goals and Treatment : 08/28/24 Planned Interventions, Frequency, and Duration: Current Frequency: 1x/week Duration: 6 weeks Total Number of Visits Planned: 6 Planned Treatment Interventions: Therapeutic exercise (04467), Manual therapy (47850), Therapeutic activities (39047), Self-long-term management (34080), Gait Training (76481), Neuromuscular re-education (24102) PLAN FOR NEXT VISIT: assess symmptom response to rpeeated lumbar flexion Patient demonstrates good understanding of plan of care and treatment. The above goals and plan of care were discussed and agreed upon by patient/family. SUBJECTIVE: for back pain and imbalance. Pt. reports that she fell but somewhat difficult historian as to exactly when asked. Pt. presents with a SC. Pt. would like some exercises that are safe to reduce her back pain and improve her balance somewhat. Denies any additional falls. Admits that she doesn't alwaysuse the cane in the house despite that she feels she should. She has difficulty with cleaning the house - unable to tolerate greater than 20 minutes before she needs to sit down. Patient Goals: reduce LBP and improve balance Functional Limitations: cleaning, rising from a chair, standing, walking Prior Level of Function: Independent without limitations Relevant History Right or Left Handed: Right Intake Information: Prescription present Previous Treatment: Physical Therapy Falls Interview: Fall with injury in the last year Red Flags Vertebral Fracture Red Flags: Female, Age >70 Vertebral Fracture Clinical Reasoning: Proceed with caution due to the above (1- 2) risk factors Abdominal Aortic Aneurysm Clinical Reasoning: No identified risk factors. Cancer Red Flags: Age >50 or <20 Cancer Clinical Reasoning: Proceed with caution Infection Clinical Reasoning: No identified risk factors. Cauda Equina Syndrome Clinical Reasoning: No identified risk factors. Red Flags - Cervical Cancer Red Flags: Age >50 or <20 Cancer Clinical Reasoning: Proceed with caution Infection Clinical Reasoning: No identified risk factors. Spine History Symptoms Location at Onset: Back Pain is Worse Always: AM, Standing, Walking Pain is Better Always: Sitting, Rest, As the day progresses Pain: Pain Pain Level: 0 Pain Location: Back Description: Aching Frequency: Standing, Walking PROMIS Scales 07/17/2024 08/26/2019 Higher is Better Phys Func - Score 34 (moderate dysfunction) 29 (severe dysfunction) Phys Func - Percentile 5 2 Self-Eff Symptom - Score 41 (Average) Self-Eff Symptom - Percentile 18 T-scores: mean of general population = 50. 5 points is clinically meaningfully difference Percentiles provide an indication of how the patient's score ranks in relation to the general population. Higher percentile rankings indicate better function/quality of life. 50th percentile is the average of the general population and indicates half of respondents had a worse score. OBJECTIVE MEASURES WITH LEVEL OF FUNCTION: Lumbar Spine AROM Lumbar Flexion: Normal Lumbar Extension: Moderate limitation, Produces Lumbar R Side Dixon: Major limitation, Produces Lumbar L Side Dixon: Major limitation, Produces Lumbar R Side-Bend: Moderate limitation, Produces Lumbar L Side-Bend: Moderate limitation, Produces Lumbar R Rotation: Normal Lumbar L Rotation: Normal Gait Gait: Modified Independent Gait Distance (feet): 80 Gait Device: Cane Gait Deviations: General Deviations General Deviations/Observations: Step length decreased, Trunk Control Decreased, Flexed trunk posture Functional Performance Test Results Assistive Device: Cane Timed Up and Go (sec): 12 sec Timed Up and Go - Condition 2 (sec) : 12 Education: Education Learning Preferences: Demonstration, Explanation, Performance, Printed Materials Barriers: None Learning/educational needs: Safety, Home exercise program, Plan of Care, Gait Training Education Provided: Yes, see treatment interventions for education provided Education Provided To: Patient Education Mode/Type: Demonstration, Explanation/Discussion, Literature/Printed Materials, Performance Response to Education/Teach Back: States/Identifies, Return Demonstration TREATMENT: PT Treatment Interventions: Therapeutic Exercise, Self-Long-Term Management Evaluation Therapeutic Exercise: 1: *Access Code: [email or web address] URL: [email or web address] Date: 07/17/2024 Prepared by: Bailey Talamantes Exercises - Hooklying Single Knee to Chest Stretch - 2-3 x daily - 7 x weekly - 1sets - 3 reps - 30 hold - Seated Flexion Stretch - 2-3 x daily - 7 x weekly - 4 sets - 10 reps - Supine Lower Trunk Rotation - 2-3 x daily - 7 x weekly - 2 sets - 10 reps Skilled Intervention: Patient was educated in proper exercise technique and purpose for exercises. Skilled judgment was used in selection of appropriate interventions. Provided written instruction for home exercise program to facilitate proper performance and compliance. Correct performance of therapeutic exercises was facilitated with verbal, visual, and tactile cuing. Educated patient on rationale for performing exercises in regards to decreasing fatigue , increase ease of ADL, and ROM and function . Patient education as noted. Self-Long-Term Management: 1: discussed directional preference 2: discussed posture 3: advised against continuing exercises that cause increased pain 4: advised use of SC at home and in the community due to pt. fear of falling and hx of fall Skilled Intervention: Skilled judgment in the selection of proper modification for activity of daily living/home management based on clinical presentation, deficits, and needs. Provided written instruction for activities of daily living techniques to facilitate proper performance and compliance. Reviewed patient specific diagnosis in relation to activities of daily living/home management. Activity progression based on professional judgement. Moderate verbal cues for maintaining neutral spine alignment. Provided written instruction for home program to facilitate proper performance and compliance. Correct performance of home program was facilitated with verbal, visual, and tactile cueing. Billing * Evaluation Low Complexity: 1 Unit Therapeutic Exercise Treatment Minutes: 15 Self-Care/Home Management Treatment Minutes: 10 Skilled Treatment Time Minutes (timed and untimed codes): 45 Total Session Time (minutes): 45 Session Start Time : 1305 Session Stop Time : 1350 Bailey Madrigal PT documented in this encounterK[facility] NoteHNO ID: [id number] Author: BAILEY MADRIGAL PT Service: ? Author Type: Physical Therapist Type: Progress Notes Filed: 07/17/2024 13:55 Note Text: Episode Visit Count: 1 Therapist That Will Accept/Oversee The Plan Of Care: Bailey Madrigal Start of Care Date: 07/17/24 Onset Date: 12/16/23 Plan of Care Certification Date: 07/17/24 Next Certification Due Date: 08/28/24 Patient Identified by Name and Date of : Yes REHABILITATION AND SPORTS THERAPY PHYSICAL THERAPY EVALUATION PLAN OF CARE: Assessment: Geraldine Hairston presents with diagnosis of gait instability that interferes with cleaning, rising from a chair, standing, walking . The patient presents with impairments in ADL's, balance, gait, independence in exercise, joint mobility, overall function, range of motion, strength, and symptom management. PROMIS? (Patient-Reported Outcomes Measurement Information System) scores were reviewed and identified as a rehabilitation concern. Prognosis for therapy is Good due to: current objective clinical presentation, good overall health status, acuteness of condition, good support system/ coping skills, within-session changes, positive past response to therapy . The patient will benefit from skilled therapy services to meet the goals established for this plan of care as noted below. Classification Low Back Pain Classification: Symptom Modulation Goals for Episode of Care: established 07/17/24 Patient will report no falls. Improve score on Timed Up and Go Test to 8 or less seconds to reflect decreased fall risk. Patient will demonstrate independent and proper use of assisstive device to allow for improved walking quality and safety therefore reducing the risk of falls. Perform cleaning her house x 20-30 minutes with decreased report of symptoms / pain. Patient Goals: reduce LBP and improve balance Time Frame for Goals and Treatment : 08/28/24 Planned Interventions, Frequency, and Duration: Current Frequency: 1x/week Duration: 6 weeks Total Number of Visits Planned: 6 Planned Treatment Interventions: Therapeutic exercise (02923), Manual therapy (40906), Therapeutic activities (64541), Self-long-term management (43793), Gait Training (28280), Neuromuscular re-education (89801) PLAN FOR NEXT VISIT: assess symmptom response to rpeeated lumbar flexion Patient demonstrates good understanding of plan of care and treatment. The above goals and plan of care were discussed and agreed upon by patient/family. SUBJECTIVE: for back pain and imbalance. Pt. reports that she fell but somewhat difficult historian as to exactly when asked. Pt. presents with a SC. Pt. would like some exercises that are safe to reduce her back pain and improve her balance somewhat. Denies any additional falls. Admits that she doesn't always use the cane in the house despite that she feels she should. She has difficulty with cleaning the house - unable to tolerate greater than 20 minutes before she needs to sit down. Patient Goals: reduce LBP and improve balance Functional Limitations: cleaning, rising from a chair, standing, walking Prior Level of Function: Independent without limitations Relevant History Right or Left Handed: Right Intake Information: Prescription present Previous Treatment: Physical Therapy Falls Interview: Fall with injury in the last year Red Flags Vertebral Fracture Red Flags: Female, Age >70 Vertebral Fracture Clinical Reasoning: Proceed with caution due to the above (1-2) risk factors Abdominal Aortic Aneurysm Clinical Reasoning: No identified risk factors. Cancer Red Flags: Age >50 or <20 Cancer Clinical Reasoning: Proceed with caution Infection Clinical Reasoning: No identified risk factors. Cauda Equina Syndrome Clinical Reasoning: No identified risk factors. Red Flags - Cervical Cancer Red Flags: Age >50 or <20 Cancer Clinical Reasoning: Proceed with caution Infection Clinical Reasoning: No identified risk factors. Spine History Symptoms Location at Onset: Back Pain is Worse Always: AM, Standing, Walking Pain is Better Always: Sitting, Rest, As the day progresses Pain: Pain Pain Level: 0 Pain Location: Back Description: Aching Frequency: Standing, Walking PROMIS Scales 07/17/2024 08/26/2019 Higher is Better Phys Func - Score 34 (moderate dysfunction) 29 (severe dysfunction) Phys Func - Percentile 5 2 Self-Eff Symptom - Score 41 (Average) Self-Eff Symptom - Percentile 18 T-scores: mean of general population = 50. 5 points is clinically meaningfully difference Percentiles provide an indication of how the patient's score ranks in relation to the general population. Higher percentile rankings indicate better function/quality of life. 50th percentile is the average of the general population and indicates half of respondents had a worse score. OBJECTIVE MEASURES WITH LEVEL OF FUNCTION: Lumbar Spine AROM Lumbar Flexion: Normal (more content not included)...[facility]10-16-2024 History of Present illness Narrative* Chance Kolb MD - 06/24/2024 4:01 PM EDT Images from the original note were not included. This note was created using [employer]. Subjective Geraldine Hairston is a 73 year old female. Patient presents with: F/U 6 months SUBJECTIVE: Geraldine Hairston is a 73 year old year old lady here today for 6 month follow up appointment for review of medical conditions. The patient is a 73-year-old female with a history of spinal stenosis, presenting for a 6-month follow-up. The patient reports a history of spinal stenosis with minimal pain, managed with Tylenol. She declines steroid treatment and seeks safe exercises for her back. She uses a cane and is considering balance classes. She denies radicular pain and has not undergone physical therapy. She also reports a ruptured flexor pollicis longus tendon in her right thumb, causing a visible lump and inabilityto flex the thumb, but denies pain and has not pursued surgical repair. Additionally, she experiences drooling when reading in bed, which she attributes to increased saliva production. She has a history of osteoporosis, with a DEXA scan in April 2022 showing a T-score of -3.5 in the left femoral neck and -2 in the hip. She was previously on Fosamax but discontinued ityears ago. She recalls a fall at buddhism, resulting in a femur fracture, which occurred after discontinuing Fosamax. She denies recent falls and is not on current osteoporosis treatment. She is under the care of Dr. Swan for Crohn's disease, with a follow-up scheduled in August. She is also on Lipitor for cholesterol management. She declines further COVID-19 vaccinations but is willing to receive a flu shot. PAST MEDICAL HISTORY Diagnosis Date Anxiety state, unspecified Depressive disorder, not elsewhere classified GERD (gastroesophageal reflux disease) controlled with PPI; follows with Dr. Swan Hypothyroid Irritable bowel syndrome IBS; Dr. Swan--continues follow up; last colonosocpy was at least 2002, possibly 2005. Osteoporosis, unspecified Raynauds syndrome REG ENTERITIS, LG INTEST 06/06/2005 Current Outpatient Medications Medication Sig naproxen (NAPROSYN) 500 mg tablet Take 1 tablet by mouth two times a day as needed (for pain/inflammation). Take with food. lidocaine (LIDODERM) 5 % Apply to the right rib cage once a day as needed, wear for 12 hours and then remove. levothyroxine (SYNTHROID) 25 mcg tablet Take 1 tablet by mouth daily before breakfast. gabapentin (NEURONTIN) 600 mg tablet Take 1 tablet by mouth two times a day. NIFEdipine ER (PROCARDIA XL) 30 mg 24 hr tablet Take 6 tablets by mouth once daily. Adjust as direceted famotidine (PEPCID) 40 mg tablet Take 1 tablet by mouth once daily. atorvastatin (LIPITOR) 20 mg tablet Take 20 mg by mouth daily at bedtime. omeprazole (PRILOSEC) 40 mg capsule Take 1 capsule by mouth once daily. (Dr. Swan--GI)--insurancewould not cover 40 mg twice daily dicyclomine (BENTYL) 20 mg tablet Take 1 tablet by mouth three times daily. (Dr. Swan prescribing) budesonide, enteric coated (ENTOCORT EC) 3 mg 24 hr capsule Take 3 capsules by mouth once daily. (Dr. John Swan) Calcium-Cholecalciferol, D3, (CALCIUM 600 + D) 600-125 mg-unit tab Take 1 tablet by mouth twice daily. aspirin, enteric coated (ASPIRIN, ENTERIC COATED) 325 mg EC tablet Take 1 tablet by mouth once daily. PARoxetine (PAXIL) 30 mg tablet Take 2.5 tablets by mouth once daily. (from psychiatrist) busPIRone HCl (BUSPAR) 30 mg tablet Take 1 tablet by mouth twice daily. (Gets from psychiatrist now) LORazepam 0.5 mg Tab Take 1 tablet by mouth three times daily as needed. Prescribing Dr: Keely Moore MD DAILY MULTIVITAMIN TAB IMODIUM A-D 2 MG TAB Take 2 mg by mouth as needed (When needed). METAMUCIL SMOOTH TEXTURE PACKET one tablespoon in the am with a full glass of water and one tablespoon again in the pm again with a full glass of water daily. SALINE MIST 0.65 % NASAL SPRAY AEROSOL Two sprays each nostril twice daily. No current facility-administered medications for this visit. Review of Systems Objective BP 90/60 Pulse 84 Temp 36.2 C (97.1 F) Resp 18 Wt 42.5 kg (93 lb 11.1 oz) SpO2 93% BMI 20.64 kg/m Physical Exam Constitutional: Appearance: Normal appearance. HENT: Head: Normocephalic. Eyes: Conjunctiva/sclera: Conjunctivae normal. Cardiovascular: Rate and Rhythm: Normal rate and regular rhythm. Heart sounds: Normal heart sounds. Pulmonary: Effort: Pulmonary effort is normal. Breath sounds: Normal breath sounds. Musculoskeletal: Back: Right lower le+ Pitting Edema present. Left lower le+ Pitting Edema present. Skin: General: Skin is warm and dry. Neurological: General: No focal deficit present. Mental Status: She is alert and oriented to person, place, and time. Psychiatric: Mood and Affect: Mood normal. Behavior: Behavior normal. Thought Content: Thought content normal. Judgment: Judgment normal. Latest Ref Rng 11/16/2022 12/27/2023 Protein, Total 6.3 - 8.0 g/dL 7.5 7.6 Albumin 3.9 - 4.9 g/dL 4.9 4.5 Calcium 8.5 - 10.2 mg/dL 9.6 10.4 (H) Bilirubin, Total 0.2 - 1.3 mg/dL 0.3 0.2 Alkaline Phosphatase 34 - 123 U/L 62 54 AST 13 - 35 U/L 27 19 ALT 7 - 38 U/L 28 15 Glucose 74 - 99 mg/dL 148 (H) 89 BUN 7 - 21 mg/dL 23 (H) 21 Creatinine 0.58 - 0.96 mg/dL 1.06 (H) 0.82 Sodium 136 - 144 mmol/L 139 143 Potassium 3.7 - 5.1 mmol/L 3.6 (L) 4.1 Chloride 97 - 105 mmol/L 102 105 CO2 22 - 30 mmol/L 23 26 Anion Gap 9 - 18 mmol/L 14 12 eGFR >=60 mL/min/1.73m 56 (L) 75 WBC 3.70 - 11.00 k/uL 8.33 RBC 3.90 - 5.20 m/uL 5.02 Hemoglobin 11.5 - 15.5 g/dL 15.4 Hematocrit 36.0 - 46.0 % 47.9 (H) MCV 80.0 - 100.0 fL 95.4 MCH 26.0 - 34.0 pg 30.7 MCHC 30.5 - 36.0 g/dL 32.2 RDW-CV 11.5 - 15.0 % 13.2 Platelet Count 150 - 400 k/uL 333 MPV 9.0 - 12.7 fL 8.7 (L) Absolute nRBC <0.01 k/uL <0.01 Total Cholesterol, Nonfasting <200 mg/dL 251 (H) Triglycerides, Nonfasting <150 mg/dL 79 HDL Cholesterol, Nonfasting >39 mg/dL 107 LDL Cholesterol, Nonfasting <100 mg/dL 128 (H) Non HDL Cholesterol, Nonfasting <130 mg/dL 144 (H) VLDL Cholesterol, Nonfasting <30 mg/dL 16 Total Chol/HDL Ratio, Nonfasting <5.10 mg/dL 2.35 LDL/HDL Ratio, Nonfasting <2.54 mg/dL 1.20 TSH 0.270 - 4.200 mIU/L 1.410 3.770 Free T4 0.9 - 1.7 ng/dL 1.4 1.4 Free T3 2.3 - 4.1 pg/mL 2.2 (L) 2.3 Vitamin D 25 Hydroxy 31.0 - 80.0 ng/mL 113.0 (H) Magnesium 1.7 - 2.3 mg/dL 2.3 Legend: (H) High (L) Low Assessment and Plan # Chronic midline low back pain without sciatica (M54.50) # Degeneration of intervertebral disc of lumbar region with discogenic back pain (M51.360) # Lumbar spondylosis (M47.816) - Chronic midline low back pain with no radicular symptoms; managed with Tylenol and ibuprofen as needed. - Reviewed recent X-rays showing disc space narrowing and spondylosis; no definitive evidence of spinal stenosis. - Discussed potential treatments including physical therapy, corticosteroids, and surgical options if symptoms worsen. - Ordered physical therapy referral for spine exercises and balance improvement at [facility]. - Educated on red flag symptoms such as severe pain, bowel/bladder dysfunction, and saddle anesthesia; advised to seek immediate medical attention if these occur. # Age-related osteoporosis without current pathological fracture (M81.0) - Previous DEXA scan (04/11/2022) showed T-score of -3.5 at the left femoral neck, indicating severe osteoporosis. - Discussed history of Fosamax use and subsequent femur fracture. - Ordered repeat DEXA scan to assess current bone density status. - Discussed potential treatment options including Reclast and Prolia. - Emphasized importance of weight-bearing exercises to improve bone strength. # Asymptomatic postmenopausal status (Z78.0) # Gait instability (R26.81) - Recent use of a cane for ambulation; no recent falls reported. - Ordered physical therapy referral to address gait instability and improve balance. # Crohn's disease of large intestine without complication (HCC) (K50.10) # Crohn's disease without complication, unspecified gastrointestinal tract location (HCC) (K50.90) - Follow-up with Dr. Swan scheduled for August. - Ordered annual labs including metabolic panel, CBC, vitamin D, magnesium, and thyroid function tests. # Numbness and tingling in right hand (R20.0) - History of rupture of flexor pollicis longus tendon in the right hand; no current pain reported. - Patient declined surgical intervention; able to function without flexion of the thumb. - Advised to monitor for any changes in function or increased discomfort. # Acquired hypothyroidism (E03.9) - Continue current thyroid medication. - Ordered annual thyroid function tests. # Raynaud's disease without gangrene (I73.00) - Continue current management with nifedipine. - Refilled prescription for nifedipine. # Vitamin D deficiency (E55.9) - Ordered annual vitamin D level. # Essential (primary) hypertension (I10) - Continue current management with Procardia. - Refilled prescription for Procardia. # Hypercholesteremia (E78.00) - Continue current management with Lipitor. - Ordered annual lipid panel. # Encounter for immunization (Z23) - Administered flu vaccine during visit. # Encounter for long-term current use of medication (Z79.899) Chance Kolb MD documented in this encounterK[facility] Telephone encounter Note * Telephone Encounter - Deidra Kohler RN - 05/15/2024 2:03 PM EDT Patient calling with question regarding recent prescription. Information provided. Deidra Kohler RN [facility]09-[facility] Miscellaneous Notes* Telephone Encounter - Deidra Kohler RN - 05/15/2024 2:03 PM EDT Patient calling with question regarding recent prescription. Information provided. Deidra Kohler RN documented in this encounterKet[facility]09-05-2024 History of Present illness Narrative* Nguyễn Stringer, MIMI.LEAD BURNER SUPERVISOR - 05/14/2024 3:58 PM EDT SUBJECTIVE: RSV Vaccine(1 - 1-dose 60+ series) Never done Shingrix Vaccine(2 of 3) due on 06/19/2016 Colorectal Cancer Screening due on 02/07/2023 Bone Density Screening due on 04/11/2024 Covid-19 Vaccine(3 - 2022-24 season) due on 05/10/2024 Influenza Vaccine(1) due on 05/10/2024 EUSEB[place] Geraldine Hairston is a 73 year old female. PMH significant for ACTIVE PROBLEM LIST Regional Enteritis of Large Intestine (Hcc) Irritable Bowel Syndrome Osteoporosis Anxiety State Depression Carpal Tunnel Syndrome Melanocytic Nevus: post scalp & nape/neck: IDN Seborrheic Keratosis Solar Lentigo Actinic Damage///Sun-damaged skin Gerd (Gastroesophageal Reflux Disease) Hypothyroidism Abnormal Mammogram, Unspecified Raynauds Syndrome Chronic Right Shoulder Pain Presents today regarding headache that has persisted since she had flu a couple of weeks ago. Notesdaily, moderate discomfort. Starts in the back of her neck can wrap around and up over the top of her head as well. Described as sharp. Has maintained oral intake. Has been taking Tylenol which helpssomewhat. No prior occurrence. No vision speech or mobility complaints. Review of Systems Constitutional: Negative. Neurological: Positive for headaches. Objective BP 98/61 Pulse 87 Resp 16 Wt 41.3 kg (91 lb 0.8 oz) BMI 20.05 kg/m Physical Exam Vitals and nursing note reviewed. Constitutional: Appearance: Normal appearance. HENT: Head: Normocephalic. Eyes: Conjunctiva/sclera: Conjunctivae normal. Cardiovascular: Rate and Rhythm: Normal rate. Pulmonary: Effort: Pulmonary effort is normal. Musculoskeletal: Cervical back: Tenderness present. Muscular tenderness present. Skin: General: Skin is warm and dry. Neurological: General: No focal deficit present. Mental Status: She is alert and oriented to person, place, and time. Comments: CN grossly intact ALLERGIES Allergen Reactions Codeine Nausea,dizziness Percocet [Oxycodone* nausea, dizziness Medications lidocaine (LIDODERM) 5 % Apply to the right rib cage once a day as needed, wear for 12 hours and then remove. levothyroxine (SYNTHROID) 25 mcg tablet Take 1 tablet by mouth daily before breakfast. gabapentin (NEURONTIN) 600 mg tablet Take 1 tablet by mouth two times a day. NIFEdipine ER (PROCARDIA XL) 30 mg 24 hr tablet Take 6 tablets by mouth once daily. Adjust as direceted famotidine (PEPCID) 40 mg tablet Take 1 tablet by mouth once daily. atorvastatin (LIPITOR) 20 mg tablet Take 20 mg by mouth daily at bedtime. omeprazole (PRILOSEC) 40 mg capsule Take 1 capsule by mouth once daily. (Dr. Swna--GI)--insurancewould not cover 40 mg twice daily dicyclomine (BENTYL) 20 mg tablet Take 1 tablet by mouth three times daily. (Dr. Swan prescribing) budesonide, enteric coated (ENTOCORT EC) 3 mg 24 hr capsule Take 3 capsules by mouth once daily. (Dr. John Swan) Calcium-Cholecalciferol, D3, (CALCIUM 600 + D) 600-125 mg-unit tab Take 1 tablet by mouth twice daily. aspirin, enteric coated (ASPIRIN, ENTERIC COATED) 325 mg EC tablet Take 1 tablet by mouth once daily. PARoxetine (PAXIL) 30 mg tablet Take 2.5 tablets by mouth once daily. (from psychiatrist) busPIRone HCl (BUSPAR) 30 mg tablet Take 1 tablet by mouth twice daily. (Gets from psychiatrist now) LORazepam 0.5 mg Tab Take 1 tablet by mouth three times daily as needed. Prescribing Dr: Keely Moore MD DAILY MULTIVITAMIN TAB IMODIUM A-D 2 MG TAB Take 2 mg by mouth as needed (When needed). METAMUCIL SMOOTH TEXTURE PACKET one tablespoon in the am with a full glass of water and one tablespoon again in the pm again with a full glass of water daily. SALINE MIST 0.65 % NASAL SPRAY AEROSOL Two sprays each nostril twice daily. naproxen (NAPROSYN) 500 mg tablet Take 1 tablet by mouth two times a day as needed (for pain/inflammation). Take with food. PAST MEDICAL HISTORY No date: Anxiety state, unspecified No date: Depressive disorder, not elsewhere classified No date: GERD (gastroesophageal reflux disease) Comment: controlled with PPI; follows with Dr. Swan No date: Hypothyroid No date: Irritable bowel syndrome Comment: IBS; Dr. Swan--continues follow up; last colonosocpy was at least 2002, possibly 2005. No date: Osteoporosis, unspecified No date: Raynauds syndrome 06/06/2005: REG ENTERITIS, LG INTEST Social History Tobacco Use Smoking status: Never Smokeless tobacco: Never Vaping Use Vaping status: Never Used Substance Use Topics Alcohol use: No Drug use: No ASSESSMENT/PLAN: 1. Cervicalgia - ICD9: 723.1, ICD10: M54.2 (primary diagnosis) - KETOROLAC 60 MG/2 ML INTRAMUSCULAR SOLUTION - NAPROXEN 500 MG TABLET 2. Acute intractable headache, unspecified headache type - ICD9: 784.0, ICD10: R51.9 - KETOROLAC 60 MG/2 ML INTRAMUSCULAR SOLUTION - NAPROXEN 500 MG TABLET HPI and exam is consistent with tension type headache. Ketorolac in the office today the naproxen starting this evening, take twice daily for the next 2 to 3 days then just as needed thereafter. She will let us know if this does not resolve the headache. Consider CT use of daily persistent headache. Nguyễn Stringer APRN.CNS Medical Decision Making: Problems: Low: Acute, uncomplicated illness or injury Risk: Low: Low risk from testing/treatment Medical Decision Making Level: 3 - Low documented in this encounterK[facility]09-[facility]24 Instructions* Patient Instructions* Nguyễn Stringer APRN.CNS - 05/14/2024 3:27 PM EDT Take naproxen morning and evening for the next few days then just as needed thereafter. Take with food. documented in this encounterKet[facility]07-22-2024 Note* Letter - Coordinator, Mammography - 03/30/2024 9:01 AM EDT March 30, 2024 PID: [id number] Geraldine Hairston [facility] [place] [address] Dear Ms. Hairston, We are pleased to inform you that the results of your recent breast imaging exam on 03/27/2024 are normal. Breast tissue can be either dense or not dense. Dense tissue makes it harder to find breast cancer on a mammogram and also raises the risk of developing breast cancer. Your breast tissue is dense. Insome people with dense tissue, other imaging tests in addition to a mammogram may help find cancers. Talk to your healthcare provider about breast density, risks for breast cancer, and your individual situation. Early detection of cancer is very important. We also understand recommendations regarding breast cancer screening are controversial. Please discuss with your primary care provider which strategy is best for you and whether a mammogram is right for you. Your imaging studies and report will be [facility] as part of your permanent medical record and are available for your continuing care. Thank you for allowing us to help in meeting your health care needs. Sincerely, Dr. Cope Interpreting Radiologist [facility] (Normal over 40) [facility]07-22-[facility] Miscellaneous Notes* Letter - Coordinator, Mammography - 03/30/2024 9:01 AM EDT March 30, 2024 PID: [id number] Geraldine Pacheco Yovanny [facility] [place] [address] Dear Ms. Hairston, We are pleased to inform you that the results of your recent breast imaging exam on 03/27/2024 are normal. Breast tissue can be either dense or not dense. Dense tissue makes it harder to find breast cancer on a mammogram and also raises the risk of developing breast cancer. Your breast tissue is dense. Insome people with dense tissue, other imaging tests in addition to a mammogram may help find cancers. Talk to your healthcare provider about breast density, risks for breast cancer, and your individual situation. Early detection of cancer is very important. We also understand recommendations regarding breast cancer screening are controversial. Please discuss with your primary care provider which strategy is best for you and whether a mammogram is right for you. Your imaging studies and report will be [facility] as part of your permanent medical record and are available for your continuing care. Thank you for allowing us to help in meeting your health care needs. Sincerely, Dr. Cope Interpreting Radiologist [facility] (Normal over 40) documented in this encounterKettering [facility] Hospital07-19-2024 History of Present illness Narrative* Celia Luna RT(R) - 03/27/2024 10:50 AM EDT Radiology Service Progress Note PATIENT NAME: Geraldine Hairston DATE OF SERVICE: March 27, 2024 TIME: 10:26 AM PATIENT IDENTITY VERIFICATION COMPLETED USING TWO (2) IDENTIFIERS: Name and Date of confirmedby patient verbally. FALL SCREENING: Has the patient had 2 falls in the last year or 1 fall with injury or currently using an Ambulatory Assistive Device (Walker, Cane, Wheelchair, Crutches, etc.)? No PATIENT GENDER DATA: Female. status: : No status: NO. PATIENT RELEVANT IMPLANT DATA REVIEWED: Yes PATIENT PRESENTS WITH AN IMPLANTABLE OR ATTACHED CUSTOMER PRICING MANAGER: No RADIOLOGY DEPARTMENT: Mammography PERIPHERAL IV DATA: Not applicable SIGNED BY: RT Cristian(R) March 27, 2024 10:26 AM documented in this encounterKettering [facility] Hospital05-02-2024 History of Present illness Narrative* Thea Vail MD - 01/09/2024 10:30 AM EDT Images from the original note were not included. [facility] [address] [place] [address] Dept: [phone] Dept 01/09/2024 Chief Complaint Patient presents with Follow-up Right hand pain HPI Geraldine returns today in follow-up regarding Right hand/thumb issues. Last appointment was approximately 5 months ago. At her last appointment she was treated with to schedule surgery at her convenience, she never called States that she has no pain in the hand. She is more concerned about additional flexor tendon ruptures. Is here today to discuss whether or not she wants to proceed with surgery. Symptom duration: less than 1 year. No results found for: "HGBA1C" OBJECTIVE BP 116/70 Ht 4' 10.5" (1.486 m) Wt 90 lb (40.8 kg) BMI 18.49 kg/m Ortho Exam RIGHT Upper Extremity Mass Characteristics Size: 2 cm X 3 cm Location: thumb Depth: superficial Mobility: fixed Tenderness: nontender Nail Plate changes: No Clinical Photo (if obtained at office visit): Not taken Skin: Intact without any evidence of breakdown Edema: Surrounding the mass ROM: limited at the thumb IPJ with inability to actively flex, normal passive ROM of the IPJ Motor: intact in the hand - able to fire PIN, and Ulnar nerves, unable to fire FPL via AIN Sensation: to light touch normal in the median, ulnar, and radial nerve distributions Perfusion: Brisk cap refill to all digits IMAGING XRay: reviewed from previous date 08/12/2023 RIGHT Hand 3V demonstrates no acute fractures or dislocations. No evidence of significant osteoarthritis of the IP joint of the thumb. Small soft tissue mass with no calcification on the ulnar aspectof the thumb. MRI right wrist and hand: 08/26/2023 Impression: 1. Full-thickness flexor pollicis longus tear at the approximate mid carpal level (see saved arrows). 2. Along the ulnar aspect of the thumb proximal phalanx, within the subcutaneous soft tissues, at the level of the interphalangeal joint, there is a nonspecific 5 x 6 x 12 mm T1 and T2 hypointense body. No evidence of connection to the interphalangeal joint or interosseous extension/involvement. NCT/EMG (Copied Impression) none PROCEDURE none ASSESSMENT (S56.019A) Rupture of flexor pollicis longus muscle (Z96.9) Retained orthopedic hardware (R22.31) Mass of finger of right hand 1. Rupture of flexor pollicis longus muscle 2. Retained orthopedic hardware 3. Mass of finger of right hand PLAN Geraldine has a proud volar wrist plate and FPL rupture. Also has a thumb mass. States she has no pain and is able to perform all ADLs without issue. I told him this scenario she could certainly continue with benign neglect and close observation but there was some very low risk of future tendon ruptures. She is comfortable with this plan. She will call the office if she ever wishes to have another surgical discussion. Tylenol and ibuprofen for any residual discomfort. Immobilization: NO immobilization required at this point - FULL ROM all joints encouraged Weight Bearing: Weight Bearing As Tolerated through right sided upper extremity Rehabilitation: NO formal rehabilitation required at this point. Follow-up: Geraldine will followup with me on an as needed basis. She knows to call the office with any questions or concerns in the interim. Future Imaging: NONE Thea Vail MD Hand and Upper Extremity Surgery [facility] Department of Orthopaedics and Sports Medicine 01/09/2024 at 10:30 AM (Please note that portions of this note may have been completed with a voice recognition program. Efforts were made to edit the dictations but occasionally words are mis-transcribed.) documented in this encounterSUniversity Hospitals Ahuja Medical [id number] Telephone encounter Note* Telephone Encounter - Cheri Greco - 01/06/2024 10:29 AM EDT Spoke to patient and scheduled appointment to discuss surgery details. [facility] [id number] Miscellaneous Notes* Telephone Encounter - Cheri Greco - 01/06/2024 10:29 AM EDT Spoke to patient and scheduled appointment to discuss surgery details. * Telephone Encounter - Cheri Greco - 01/06/2024 10:22 AM EDT Left message informing patient with number to call back with additional questions or concerns or toschedule surgery. * Telephone Encounter - Thea Vail MD - 12/31/2023 4:25 PM EDT Thumb flexors most likely tendon to rupture with a prominent distal radius plate. It is possible that additional tendons can rupture but unlikely. Surgery would be to restore flexion of the thumb. She does not have to to have surgery if she is okay living with her hand in its current state. That isentirely up to her. Probably best to see her back in the office to discuss in person before we reschedule any type of surgery to ensure we are on the same page. * Telephone Encounter - Cheri Greco - 12/27/2023 12:23 PM EDT Patient called in stating she is now ready to proceed with scheduling. Do you want to see prior to scheduling or ok to schedule over the phone? Patient called back asking if she does not have surgery will she have further issues. She states you had discussed removing the hardware to prevent future ruptures and wants to know if its necessary to proceed with surgery. * Telephone Encounter - Cheri Greco - 09/27/2023 3:21 PM EST Spoke to patient, she is recovering from rib fractures and will call when ready to proceed with surgery. * Telephone Encounter - Cheri Greco - 09/23/2023 3:36 PM EST Left message for patient to call back to schedule surgery. * Telephone Encounter - Cheri Greco - 09/23/2023 3:36 PM EST [facility] SURGERY SCHEDULING SLIP Patient: Geraldine Hairston Date of : 1950 Date of Surgery: Next available Day of Surgery: [facility]: [place] Duration: 2hrs Type: Outpatient PAT: Yes Med Clearance: No Anesthesia: MAC Block: Regional Position: Supine Table: Stretcher Arm Board: Roll-up arm table Radiology: Small C-Arm CPT Code: Consent: Right distal radius plate removal, flexor pollicus longus tendon reconstruction, thumb mass excision FollowUp: Any P.A. in 10-14 days XRays: Yes OT Splint needed at first PO appointment: No Special Requests [employer] distal radius screw drivers Synthes hardware removal set (available) Hand tray Tendon sales strategy manager * Telephone Encounter - Cheri Greco - 09/04/2023 1:33 PM EST Operative report in media, please review and advise. * Telephone Encounter - Cheri Greco - 08/29/2023 11:01 AM EST Records request sent to Adarsh Dwoney for Operative reports. Will have Yared review and advise on surgery orders once reports received. documented in this encounterSUniversity Hospitals Ahuja Medical [id number] Telephone encounter Note* Telephone Encounter - Cheri Greco - 01/06/2024 10:22 AM EDT Left message informing patient with number to call back with additional questions or concerns or toschedule surgery. [facility] [id number] Telephone encounter Note* Telephone Encounter - Grace Wilson LPN - 01/03/2024 4:46 PM EDT Patient had not tried any tylenol or ibuprofen. She would like to try this first and if no improvement come Saturday or Saturday she will call back for a script for prednisone. [facility]04-26-2024 Miscellaneous Notes* Telephone Encounter - Grace Wilson LPN - 01/03/2024 4:46 PM EDT Patient had not tried any tylenol or ibuprofen. She would like to try this first and if no improvement come Saturday or Saturday she will call back for a script for prednisone. * Telephone Encounter - Malachi Lilly APRN.CNP - 01/03/2024 4:39 PM EDT Please check and see if she is taking any tylenol or ibuprofen? IS she opposed to trying a steroid?We could try that to reduce her pain. * Telephone Encounter - Laura Sterling LPN - 01/03/2024 10:16 AM EDT Patient calling asking for her results. Went over my chart message from Malachi Lilly LENS GRINDER ROUGH with understanding. Patient said she has constant pain lower back rates at a 5 to 6. She has been using ice packs. She was asking anything else LENS GRINDER ROUGH wants me to be doing? Patient phone number is [phone] or can my chart message her please. Had gone over notes from office visit with her also. documented in this encounterK[facility] Hospital04-26-2024 Telephone encounter Note * Telephone Encounter - Malachi Lilly APRN.CNP - 01/03/2024 4:39 PM EDT Please check and see if she is taking any tylenol or ibuprofen? IS she opposed to trying a steroid?We could try that to reduce her pain. [facility]04-[facility] Telephone encounter Note* Telephone Encounter - Laura Sterling LPN - 01/03/2024 10:16 AM EDT Patient calling asking for her results. Went over my chart message from Malachi Lilly LENS GRINDER ROUGH with understanding. Patient said she has constant pain lower back rates at a 5 to 6. She has been using ice packs. She was asking anything else LENS GRINDER ROUGH wants me to be doing? Patient phone number is [phone] or can my chart message her please. Had gone over notes from office visit with her also. [facility]04-23-[facility] Telephone encounter Note* Telephone Encounter - Thea Vail MD - 12/31/2023 4:25 PM EDT Thumb flexors most likely tendon to rupture with a prominent distal radius plate. It is possible that additional tendons can rupture but unlikely. Surgery would be to restore flexion of the thumb. She does not have to to have surgery if she is okay living with her hand in its current state. That isentirely up to her. Probably best to see her back in the office to discuss in person before we reschedule any type of surgery to ensure we are on the same page. [employer] Phone: [phone]) 587-840204-23-2024 History of Present illness Narrative* Valorie Chauhan RT(R) - 12/31/2023 3:00 PM EDT Radiology Service Progress Note PATIENT NAME: Geraldine Hairston DATE OF SERVICE: December 31, 2023 TIME: 3:13 PM PATIENT IDENTITY VERIFICATION COMPLETED USING TWO (2) IDENTIFIERS: Name and Date of confirmedby patient verbally. FALL SCREENING: Has the patient had 2 falls in the last year or 1 fall with injury or currently using an Ambulatory Assistive Device (Walker, Cane, Wheelchair, Crutches, etc.)? No PATIENT GENDER DATA: Female. status: : No status: NO. PATIENT RELEVANT IMPLANT DATA REVIEWED: Yes PATIENT PRESENTS WITH AN IMPLANTABLE OR ATTACHED CUSTOMER PRICING MANAGER: No RADIOLOGY DEPARTMENT: General X-ray: Exam(s) Completed: Spine X-Ray(s): Lumbar AP / LAT / L5-S1 PERIPHERAL IV DATA: Not applicable SIGNED BY: RT Chad(R) December 31, 2023 3:13 PM documented in this encounterKettering [facility] Hospital04-23-2024 History of Present illness Narrative* Malachi Lilly APRN.DEALERSHIP MANAGER - 12/31/2023 2:24 PM EDT SUBJECTIVE Geraldine Hairston is a 73 year old female here today for a check up on her medical problems. Chief Complaint Patient presents with: F/U 6 months Back Pain: started after a fall on Saturday with a dull achy feeling. HPI Geraldine Hairston is a 73 year old female. She is an established patient of Chance Kolb MD. She is here today for a routine 6 month follow up. History of GERD, crohn's, seeing GI, seeing psychiatry, hypothyroid. She had a fall this past Saturday. Since that she has had a dull ache in her lower back. Wondering about having an xray checked. Not getting worse, maybe some slow improvement. No leg weakness, numbness or tingling, no saddle paresthesia or leaking/loss of control of bowels or bladder. Labs done prior to her visit today. Her medications were reviewed today and her list is now up to date. Medications Current Outpatient Medications Medication Sig lidocaine (LIDODERM) 5 % Apply to the right rib cage once a day as needed, wear for 12 hours and then remove. levothyroxine (SYNTHROID) 25 mcg tablet Take 1 tablet by mouth daily before breakfast. gabapentin (NEURONTIN) 600 mg tablet Take 1 tablet by mouth two times a day. NIFEdipine ER (PROCARDIA XL) 30 mg 24 hr tablet Take 6 tablets by mouth once daily. Adjust as direceted famotidine (PEPCID) 40 mg tablet Take 1 tablet by mouth once daily. atorvastatin (LIPITOR) 20 mg tablet Take 20 mg by mouth daily at bedtime. omeprazole (PRILOSEC) 40 mg capsule Take 1 capsule by mouth once daily. (Dr. Swan--GI)--insurancewould not cover 40 mg twice daily dicyclomine (BENTYL) 20 mg tablet Take 1 tablet by mouth three times daily. (Dr. Swan prescribing) budesonide, enteric coated (ENTOCORT EC) 3 mg 24 hr capsule Take 3 capsules by mouth once daily. (Dr. John Swan) Calcium-Cholecalciferol, D3, (CALCIUM 600 + D) 600-125 mg-unit tab Take 1 tablet by mouth twice daily. aspirin, enteric coated (ASPIRIN, ENTERIC COATED) 325 mg EC tablet Take 1 tablet by mouth once daily. PARoxetine (PAXIL) 30 mg tablet Take 2.5 tablets by mouth once daily. (from psychiatrist) busPIRone HCl (BUSPAR) 30 mg tablet Take 1 tablet by mouth twice daily. (Gets from psychiatrist now) LORazepam 0.5 mg Tab Take 1 tablet by mouth three times daily as needed. Prescribing Dr: Keely Moore MD DAILY MULTIVITAMIN TAB IMODIUM A-D 2 MG TAB Take 2 mg by mouth as needed (When needed). METAMUCIL SMOOTH TEXTURE PACKET one tablespoon in the am with a full glass of water and one tablespoon again in the pm again with a full glass of water daily. SALINE MIST 0.65 % NASAL SPRAY AEROSOL Two sprays each nostril twice daily. No current facility-administered medications for this visit. ALLERGIES Allergen Reactions Codeine Nausea,dizziness Percocet [Oxycodone* nausea, dizziness ACTIVE PROBLEM LIST Chronic Right Shoulder Pain - 07/27/2019 Raynauds Syndrome Abnormal Mammogram, Unspecified - 12/30/2014 Hypothyroidism - 01/29/2014 Gerd (Gastroesophageal Reflux Disease) - 08/01/2010 Comment: Was seen by , coverstitch elastic attacher, [place]. Started on PPI for GERD with good results. Melanocytic Nevus: post scalp & nape/neck: IDN - 06/27/2010 Seborrheic Keratosis - 06/27/2010 Solar Lentigo - 06/27/2010 Actinic Damage///Sun-damaged skin - 06/27/2010 Carpal Tunnel Syndrome - 06/04/2006 Regional Enteritis of Large Intestine (Hcc) - 06/06/2005 Irritable Bowel Syndrome - 06/06/2005 Osteoporosis - 06/06/2005 Anxiety State - 06/06/2005 Depression - 06/06/2005 Social History Tobacco Use Smoking status: Never Smokeless tobacco: Never Vaping Use Vaping Use: Never used Substance Use Topics Alcohol use: No Drug use: No Review of Systems Constitutional: Negative. Respiratory: Negative. Cardiovascular: Negative. OBJECTIVE BP 110/52 Pulse 95 Wt 87 lb (39.5kg) SpO2 90% Physical Exam Vitals and nursing note reviewed. Constitutional: General: She is awake. She is not in acute distress. Appearance: Normal appearance. She is well-developed and well-groomed. She is not ill-appearing, toxic-appearing or diaphoretic. HENT: Head: Normocephalic. Right Ear: External ear normal. Left Ear: External ear normal. Nose: Nose normal. Eyes: General: Vision grossly intact. Conjunctiva/sclera: Conjunctivae normal. Pupils: Pupils are equal, round, and reactive to light. Neck: Vascular: No JVD. Trachea: Trachea normal. Cardiovascular: Rate and Rhythm: Normal rate and regular rhythm. Pulses: Normal pulses. Heart sounds: Normal heart sounds. No murmur heard. Pulmonary: Effort: Pulmonary effort is normal. No accessory muscle usage, prolonged expiration or respiratory distress. Breath sounds: Normal breath sounds. Musculoskeletal: Cervical back: Normal and neck supple. Thoracic back: Normal. Lumbar back: Tenderness (bilateral paraspinal) present. No deformity, lacerations, spasms or bony tenderness. Decreased range of motion. Skin: General: Skin is warm and dry. Capillary Refill: Capillary refill takes less than 2 seconds. Neurological: General: No focal deficit present. Mental Status: She is alert and oriented to person, place, and time. Mental status is at baseline. Psychiatric: Attention and Perception: Attention and perception normal. Mood and Affect: Mood and affect normal. Speech: Speech normal. Behavior: Behavior normal. Behavior is cooperative. Thought Content: Thought content normal. Cognition and Memory: Cognition and memory normal. Judgment: Judgment normal. ASSESSMENT/PLAN: 1. Acute bilateral low back pain without sciatica - ICD9: 724.2, 338.19, ICD10: M54.50 (primary diagnosis) Acute pain, check xr, discussed rest, ice/heat, gentle stretches. - XR LUMBAR GENERAL 3V AP/LAT/L5-S1 2. Age-related osteoporosis without current pathological fracture - ICD9: 733.01, ICD10: M81.0 3. Gastroesophageal reflux disease without esophagitis - ICD9: 530.81, ICD10: K21.9 - Discussed lifestyle modifications including limiting caffeine, no meals three hours before sleep,and head of bed elevation 4. Crohn's disease of large intestine without complication (HCC) - ICD9: 555.1, ICD10: K50.10 5. Acquired hypothyroidism - ICD9: 244.9, ICD10: E03.9 - Instructed patient on importance of taking on an empty stomach either first thing in the morning or at bedtime. 6. Depression, unspecified depression type - ICD9: 311, ICD10: F32.A Stable, seeing psychiatry and counseling. 7. Anxiety - ICD9: 300.00, ICD10: F41.9 8. Encounter for screening mammogram for breast cancer - ICD9: V76.12, ICD10: Z12.31 - OZIEL SCREENING Portions of this note have been entered by ancillary staff. I have reviewed and when necessary edited, so that they are an adequate record of my encounter with this patient Please note that parts of this document were created using voice recognition software and therefore may contain grammatical errors. Patient verbalizes understanding of instructions from today's visit and in agreement with treatmentplan. Questions answered. Agrees to call the office if questions, concerns of issues with acute symptoms not improving or if they worsen. See diagnoses and orders for additional plan(s). Allergies and medications were reviewed, list was updated, and refills given if needed. Past medical, surgical, social, and family history reviewed and updated as appropriate. Encouraged proper diet & exercise as well as compliance with taking medications. Age- appropriate health preventative measures were discussed. Return if symptoms worsen or fail to improve, for Keep next scheduled appointment.. LUIS FELIPE Grijalva [facility] Telephone encounter Note * Telephone Encounter - Cheri Greco - 12/27/2023 12:23 PM EDT Patient called in stating she is now ready to proceed with scheduling. Do you want to see prior to scheduling or ok to schedule over the phone? Patient called back asking if she does not have surgery will she have further issues. She states you had discussed removing the hardware to prevent future ruptures and wants to know if its necessary to proceed with surgery. [id number] Miscellaneous Notes* Telephone Encounter - Cheri Greco - 12/27/2023 12:23 PM EDT Patient called in stating she is not ready to proceed with scheduling. Do you want to see prior to scheduling or ok to schedule over the phone? * Telephone Encounter - Cheri Greco - 09/27/2023 3:21 PM EST Spoke to patient, she is recovering from rib fractures and will call when ready to proceed with surgery. * Telephone Encounter - Cheri Greco - 09/23/2023 3:36 PM EST Left message for patient to call back to schedule surgery. * Telephone Encounter - Cehri Greco - 09/23/2023 3:36 PM EST YARED SURGERY SCHEDULING SLIP Patient: Geraldine Hairston Date of : 1950 Date of Surgery: Next available Day of Surgery: [facility]: [place] Duration: 2hrs Type: Outpatient PAT: Yes Med Clearance: No Anesthesia: MAC Block: Regional Position: Supine Table: Stretcher Arm Board: Roll-up arm table Radiology: Small C-Arm CPT Code: Consent: Right distal radius plate removal, flexor pollicus longus tendon reconstruction, thumb mass excision FollowUp: Any P.A. in 10-14 days XRays: Yes OT Splint needed at first PO appointment: No Special Requests [employer] Apt[employer] distal radius screw drivers Synthes hardware removal set (available) Hand tray Tendon sales strategy manager * Telephone Encounter - Cheri Greco - 09/04/2023 1:33 PM EST Operative report in media, please review and advise. * Telephone Encounter - Cheri Greco - 08/29/2023 11:01 AM EST Records request sent to [facility] for Operative reports. Will have [facility] review and advise on surgery orders once reports received. documented in this [place] [id number] Miscellaneous Notes* Telephone Encounter - Cheri Greco - 12/27/2023 12:23 PM EDT Patient called in stating she is now ready to proceed with scheduling. Do you want to see prior to scheduling or ok to schedule over the phone? Patient called back asking if she does not have surgery will she have further issues. She states you had discussed removing the hardware to prevent future ruptures and wants to know if its necessary to proceed with surgery. * Telephone Encounter - Cheri Gerco - 09/27/2023 3:21 PM EST Spoke to patient, she is recovering from rib fractures and will call when ready to proceed with surgery. * Telephone Encounter - Cheri Greco - 09/23/2023 3:36 PM EST Left message for patient to call back to schedule surgery. * Telephone Encounter - Cheri Greco - 09/23/2023 3:36 PM EST YARED SURGERY SCHEDULING SLIP Patient: Geraldine Hairston Date of : 1950 Date of Surgery: Next available Day of Surgery: [facility]: [place] Duration: 2hrs Type: Outpatient PAT: Yes Med Clearance: No Anesthesia: MAC Block: Regional Position: Supine Table: Stretcher Arm Board: Roll-up arm table Radiology: Small C-Arm CPT Code: Consent: Right distal radius plate removal, flexor pollicus longus tendon reconstruction, thumb mass excision FollowUp: Any P.A. in 10-14 days XRays: Yes OT Splint needed at first PO appointment: No Special Requests [employer]pt[employer] distal radius screw drivers Synthes hardware removal set (available) Hand tray Tendon sales strategy manager * Telephone Encounter - Cheri Greco - 09/04/2023 1:33 PM EST Operative report in media, please review and advise. * Telephone Encounter - Cheri Greco - 08/29/2023 11:01 AM EST Records request sent to Adarsh Downey for Operative reports. Will have Yared review and advise on surgery orders once reports received. documented in this [facility]01-19-[facility]24 Telephone encounter Note* Telephone Encounter - Cheri Greco - 09/27/2023 3:21 PM EST Spoke to patient, she is recovering from rib fractures and will call when ready to proceed with surgery. [facility] [id number] Telephone encounter Note* Telephone Encounter - Cheri Greco - 09/23/2023 3:36 PM EST Left message for patient to call back to schedule surgery. [facility] [id number] Telephone encounter Note* Telephone Encounter - Cheri Gerco - 09/23/2023 3:36 PM EST YARED SURGERY SCHEDULING SLIP Patient: Geraldine Hairston Date of : 1950 Date of Surgery: Next available Day of Surgery: [facility]: [place] Duration: 2hrs Type: Outpatient PAT: Yes Med Clearance: No Anesthesia: MAC Block: Regional Position: Supine Table: Stretcher Arm Board: Roll-up arm table Radiology: Small C-Arm CPT Code: Consent: Right distal radius plate removal, flexor pollicus longus tendon reconstruction, thumb mass excision FollowUp: Any P.A. in 10-14 days XRays: Yes OT Splint needed at first PO appointment: No Special Requests [employer]pt[employer] distal radius screw drivers Synthes hardware removal set (available) Hand tray Tendon sales strategy manager [facility] [id number] Telephone encounter Note* Telephone Encounter - Cheri Greco - 09/04/2023 1:33 PM EST Operative report in media, please review and advise. [facility] [id number] History of Present illness Narrative* Ena Cardoso RT(R) - 09/03/2023 1:40 PM EST Radiology Service Progress Note PATIENT NAME: Geraldine Hairston DATE OF SERVICE: September 03, 2023 TIME: 1:29 PM PATIENT IDENTITY VERIFICATION COMPLETED USING TWO (2) IDENTIFIERS: Name and Date of confirmedby patient verbally. FALL SCREENING: Has the patient had 2 falls in the last year or 1 fall with injury or currently using an Ambulatory Assistive Device (Walker, Cane, Wheelchair, Crutches, etc.)? Yes, Patient High Riskfor Falls What interventions were put in place to prevent falls during this visit? Offered Assistance with Transfers/Clothing and Instructed Patient to Remain Seated (Not on Exam Table) Until Exam PATIENT GENDER DATA: Female. status: : No status: NO. PATIENT RELEVANT IMPLANT DATA REVIEWED: Not Applicable RADIOLOGY DEPARTMENT: General X-ray: Exam(s) Completed: Rib X-Ray: Right PERIPHERAL IV DATA: Not applicable SIGNED BY: RT Abel(R) September 03, 2023 1:29 PM documented [facility] Telephone encounter Note * Telephone Encounter - Cheri Greco - 08/29/2023 11:01 AM EST Records request sent to Adarsh Downey for Operative reports. Will have Yared review and advise on surgery orders once reports received. [facility] [id number] History of Present illness Narrative* Thea Vail MD - 08/29/2023 10:15 AM EST Images from the original note were not included. [facility] [address] [place] [address] Dept: [phone] Dept 08/29/2023 Chief Complaint Patient presents with Follow-up Right hand MRI results EUSEBIA Chandler returns today in follow-up regarding right hand mass. Last appointment was approximately 2.5 weeks ago. At her last appointment she was treated with an MRI of her hand and wrist. No change in symptoms. Still unable to flex at the thumb IP joint. Also notes a mass in the pulp ofher right thumb that is bothersome. Symptom duration: less than 1 year. No results found for: "HGBA1C" OBJECTIVE BP 114/74 Ht 4' 10.5" (1.486 m) Wt 90 lb (40.8 kg) BMI 18.49 kg/m Ortho Exam RIGHT Upper Extremity Mass Characteristics Size: 2 cm X 3 cm Location: thumb Depth: superficial Mobility: fixed Tenderness: nontender Nail Plate changes: No Clinical Photo (if obtained at office visit): Not taken Skin: Intact without any evidence of breakdown Edema: Surrounding the mass ROM: limited at the thumb IPJ with inability to actively flex, normal passive ROM of the IPJ Motor: intact in the hand - able to fire PIN, and Ulnar nerves, unable to fire FPL via AIN Sensation: to light touch normal in the median, ulnar, and radial nerve distributions Perfusion: Brisk cap refill to all digits Examination of the contralateral limb reveals no masses, skin intact, no edema, full ROM, no motor deficits, normal sensation, no evidence of instabilities, and adequate perfusion. IMAGING XRay: reviewed from previous date 08/12/2023 RIGHT Hand 3V demonstrates no acute fractures or dislocations. No evidence of significant osteoarthritis of the IP joint of the thumb. Small soft tissue mass with no calcification on the ulnar aspectof the thumb. MRI right wrist and hand: 08/26/2023 Impression: 1. Full-thickness flexor pollicis longus tear at the approximate mid carpal level (see saved arrows). 2. Along the ulnar aspect of the thumb proximal phalanx, within the subcutaneous soft tissues, at the level of the interphalangeal joint, there is a nonspecific 5 x 6 x 12 mm T1 and T2 hypointense body. No evidence of connection to the interphalangeal joint or interosseous extension/involvement. NCT/EMG (Copied Impression) none PROCEDURE none ASSESSMENT (S56.019A) Rupture of flexor pollicis longus muscle (Z96.9) Retained orthopedic hardware 1. Rupture of flexor pollicis longus muscle 2. Retained orthopedic hardware PLAN Independently interpreted Geraldine's MRI. She has an FPL rupture likely related to her previous volar distal radius plate. She desires better thumb strength and range of motion. We discussed surgical invention to include plate removal and bridge graft reconstruction of her FPL. Understands that she will not have normal painful range of motion despite my surgical efforts but the goal will be to improve her thumb function. She is comfortable with this plan. She would like to schedule in the near future. Understands that I may need to use tendon allograft and also need her previous operative report so I know what type of hardware and removing. She is comfortable this plan. I had an extensive discussion with Ms. Geraldine Hairston regarding the natural history, etiology, and salvage determiner consequences of her condition. We discussed both operative and non operative treatmentoptions and Geraldine Hairston elected to proceed with surgical intervention. I have discussed withMs. Geraldine Hairston the potential complications, limitations, expectations, alternatives, and risks of the proposed surgical procedure. Risks discussed include but are not limited to the risk of infection, iatrogenic injury to normal neurovascular structures, persistent pain and disability, unsightly scar, stiffness, complex regional pain syndrome, malunion, non union, hardware failure, need for hardware removal, loss of limb, myocardial infarction, deep vein thrombosis, pulmonary embolism and even . We also discussed the potential risk of COVID-19 exposure or infection and how it could alter her post operative recovery course. She has had full opportunity to ask her questions. I have answered them all to her satisfaction. I feel that Ms. Geraldine Hairston does understand our discussion today and she is comfortable providing informed consent for the procedure. Immobilization: NO immobilization required at this point - FULL ROM all joints encouraged Weight Bearing: Weight Bearing As Tolerated through right sided upper extremity Rehabilitation: NO formal rehabilitation required at this point. Follow-up: Geraldine will followup with my physician museum assistant Rossy Holliday PA-C post operatively. She knows to call the office with any questions or concerns in the interim. Future Imaging: NONE Thea Yared, MD Hand and Upper Extremity Surgery [facility] Department of Orthopaedics and Sports Medicine 08/29/2023 at 11:09 AM (Please note that portions of this note may have been completed with a voice recognition program. Efforts were made to edit the dictations but occasionally words are mis-transcribed.) documented in this [facility]12-04-2023 History of Present illness Narrative* Thea Vail MD - 08/12/2023 2:15 PM EST Images from the original note were not included. [facility] [address] [place] [phone] Dept: [phone] Dept 08/12/2023 Chief Complaint Patient presents with New Patient Right thumb cyst HPI Geraldine Hairston is a 72 y.o. right handed female that presents for evaluation of mass in her RIGHT volar thumb. Symptoms have been present for 2 month(s). The symptoms started after no known trauma. Previous Treatments NSAIDs: No - Have not tried Injection: No - Has never received an injection Therapy: No - Has not attempted formal therapy Splinting: No - Has not tried any splinting Surgery: No - Has not had previous surgery on the symptomatic extremity MRI: No Has not had an MRI Geraldine is a 72-year-old female presenting today with mass over the aspect of the there is been present for 2 to 3 months as well as inability to flex her right thumb at the IP joint. She states this has been present for roughly 4 to 5 months. She does not notice any acute trauma at the time of inability to flex the thumb. The mass has not been tender, erythematous and has had no drainage. No results found for: "HGBA1C" OBJECTIVE BP 122/68 Ht 4' 10.5" (1.486 m) Wt 90 lb (40.8 kg) BMI 18.49 kg/m Ortho Exam RIGHT Upper Extremity Mass Characteristics Size: 2 cm X 3 cm Location: thumb Depth: superficial Mobility: fixed Tenderness: nontender Nail Plate changes: No Clinical Photo (if obtained at office visit): Not taken Skin: Intact without any evidence of breakdown Edema: Surrounding the mass ROM: limited at the thumb IPJ with inability to actively flex, normal passive ROM of the IPJ Motor: intact in the hand - able to fire PIN, and Ulnar nerves, unable to fire FPL via AIN Sensation: to light touch normal in the median, ulnar, and radial nerve distributions Perfusion: Brisk cap refill to all digits Examination of the contralateral limb reveals no masses, skin intact, no edema, full ROM, no motor deficits, normal sensation, no evidence of instabilities, and adequate perfusion. IMAGING Plain films were taken today and reviewed in office. RIGHT Hand 3V demonstrates no acute fractures or dislocations. No evidence of significant osteoarthritis of the IP joint of the thumb. Small soft tissue mass with no calcification on the ulnar aspectof the thumb. PROCEDURE none ASSESSMENT (R22.31) Mass of finger of right hand (S56.019A) Rupture of flexor pollicis longus muscle 1. Mass of finger of right hand Thumb 2. Rupture of flexor pollicis longus muscle Right thumb PLAN I discussed with Geraldine the natural history, expected outcome, and risks/benefits of both operative and nonoperative management of her particular diagnosis relative to her age, activity level, previoustreatment, and physical exam. Geraldine had some excellent questions, all of which were answered to her satisfaction. Geraldine elected to proceed with MRI of the right hand and wrist. Discussed with patient that the soft tissue mass is most likely a small superficial cyst and also she likely ruptured her FPL tendon due to her inability to flex at the IP joint of the thumb. She is at risk for attritional rupture due toher previous ORIF of her distal radius, therefore we will obtain a MRI of the hand and wrist in order to evaluate location of EPL rupture as well as to characterize the mass within the thumb. She will follow-up following MRI in order to go over results and discuss future treatment options. Follow-up: Geraldine will followup with me for MRI results. She knows to call the office with any questions or concerns in the interim. Future Imaging: NONE Thea Vail MD Hand and Upper Extremity Surgery [facility] Department of Orthopaedics and Sports Medicine 08/12/2023 at 2:13 PM (Please note that portions of this note may have been completed with a voice recognition program. Efforts were made to edit the dictations but occasionally words are mis-transcribed.) documented in this [facility]11-24-2023 Miscellaneous Notes* Telephone Encounter - Grace Wilson LPN - 08/02/2023 3:49 PM EST PATIENT NOTIFIED OF SAME. * Telephone Encounter - Malachi Lilly APRN.CNP - 08/02/2023 3:25 PM EST Please let Geraldine know her urine culture did confirm infection and the Macrobid is a good option, it is effective for the infection. [facility] History of Present illness Narrative* Malachi Lilly APRN.CNP - 07/31/2023 2:27 PM EST SUBJECTIVE Geraldine Hairston is a 72 year old female here today for acute concern. Chief Complaint Patient presents with: Urinary Frequency: x 1 week HPI Geraldine Hairston is a 72 year old female. Established patient. She is here today acutely for concerns of urinary frequency. Concerned about a UTI. Onset about a week ago, not better but not worse. Persistent. Prior UTIs that were pretty severe. Urine is dark, cloudy and has an odor. No vaginal pain, itching or discharge. Her medications were reviewed today and her list is now up to date. Medications Current Outpatient Medications Medication Sig levothyroxine (SYNTHROID) 25 mcg tablet Take 1 tablet by mouth daily before breakfast. gabapentin (NEURONTIN) 600 mg tablet Take 1 tablet by mouth two times a day. NIFEdipine ER (PROCARDIA XL) 30 mg 24 hr tablet Take 6 tablets by mouth once daily. Adjust as direceted famotidine (PEPCID) 40 mg tablet Take 1 tablet by mouth once daily. atorvastatin (LIPITOR) 20 mg tablet Take 20 mg by mouth daily at bedtime. omeprazole (PRILOSEC) 40 mg capsule Take 1 capsule by mouth once daily. (Dr. Swan--GI)--insurancewould not cover 40 mg twice daily dicyclomine (BENTYL) 20 mg tablet Take 1 tablet by mouth three times daily. (Dr. Swan prescribing) budesonide, enteric coated (ENTOCORT EC) 3 mg 24 hr capsule Take 3 capsules by mouth once daily. (Dr. John Swan) Calcium-Cholecalciferol, D3, (CALCIUM 600 + D) 600-125 mg-unit tab Take 1 tablet by mouth twice daily. aspirin, enteric coated (ASPIRIN, ENTERIC COATED) 325 mg EC tablet Take 1 tablet by mouth once daily. PARoxetine (PAXIL) 30 mg tablet Take 2.5 tablets by mouth once daily. (from psychiatrist) busPIRone HCl (BUSPAR) 30 mg tablet Take 1 tablet by mouth twice daily. (Gets from psychiatrist now) LORazepam 0.5 mg Tab Take 1 tablet by mouth three times daily as needed. Prescribing Dr: Keely Moore MD cholecalciferol (VITAMIN D3) 1,000 unit tab tablet Take 185 mg by mouth once daily. DAILY MULTIVITAMIN TAB IMODIUM A-D 2 MG TAB Take 2 mg by mouth as needed (When needed). METAMUCIL SMOOTH TEXTURE PACKET one tablespoon in the am with a full glass of water and one tablespoon again in the pm again with a full glass of water daily. SALINE MIST 0.65 % NASAL SPRAY AEROSOL Two sprays each nostril twice daily. nitrofurantoin monohydrate and macrocrystal (MACROBID) 100 mg capsule Take 1 capsule by mouth two times a day. No current facility-administered medications for this visit. ALLERGIES Allergen Reactions Codeine Nausea,dizziness Percocet [Oxycodone* nausea, dizziness ACTIVE PROBLEM LIST Chronic Right Shoulder Pain - 07/27/2019 Raynauds Syndrome Abnormal Mammogram, Unspecified - 12/30/2014 Hypothyroidism - 01/29/2014 Sinus Congestion - 09/12/2013 Gerd (Gastroesophageal Reflux Disease) - 08/01/2010 Comment: Was seen by , coverstitch elastic attacher, [place]. Started on PPI for GERD with good results. Melanocytic Nevus: post scalp & nape/neck: IDN - 06/27/2010 Seborrheic Keratosis - 06/27/2010 Solar Lentigo - 06/27/2010 Actinic Damage///Sun-damaged skin - 06/27/2010 BRONCHITIS PERIODIC - 10/10/2006 Carpal Tunnel Syndrome - 06/04/2006 Regional Enteritis of Large Intestine (Hcc) - 06/06/2005 Irritable Bowel Syndrome - 06/06/2005 Osteoporosis - 06/06/2005 Anxiety State, Unspecified - 06/06/2005 Depression - 06/06/2005 Social History Tobacco Use Smoking status: Never Smokeless tobacco: Never Vaping Use Vaping Use: Never used Substance Use Topics Alcohol use: No Drug use: No Review of Systems Genitourinary: Positive for decreased urine volume, dysuria and frequency. Negative for hematuria, vaginal bleeding, vaginal discharge and vaginal pain. OBJECTIVE BP 80/40 Pulse 83 Temp (Src) 98 (Temporal) Wt 89 lb (40.4kg) SpO2 88% Physical Exam Vitals and nursing note reviewed. Constitutional: General: She is awake. She is not in acute distress. Appearance: Normal appearance. She is well-developed and well-groomed. She is not ill-appearing, toxic-appearing or diaphoretic. HENT: Head: Normocephalic. Right Ear: External ear normal. Left Ear: External ear normal. Nose: Nose normal. Eyes: General: Vision grossly intact. Conjunctiva/sclera: Conjunctivae normal. Pupils: Pupils are equal, round, and reactive to light. Neck: Vascular: No JVD. Trachea: Trachea normal. Pulmonary: Effort: Pulmonary effort is normal. No accessory muscle usage, prolonged expiration or respiratory distress. Musculoskeletal: Cervical back: Neck supple. Skin: General: Skin is warm and dry. Capillary Refill: Capillary refill takes less than 2 seconds. Neurological: General: No focal deficit present. Mental Status: She is alert and oriented to person, place, and time. Mental status is at baseline. Psychiatric: Attention and Perception: Attention and perception normal. Mood and Affect: Mood and affect normal. Speech: Speech normal. Behavior: Behavior normal. Behavior is cooperative. Thought Content: Thought content normal. Cognition and Memory: Cognition and memory normal. Judgment: Judgment normal. ASSESSMENT/PLAN: 1. Urinary tract infection without hematuria, site unspecified - ICD9: 599.0, ICD10: N39.0 acute - Send urine for culture - Begin treatment with Macrobid 100 mg BID for 7 days - Patient education for prevention given Given her history we culture and start macrobid - UA DIP B/O - URINE CULTURE - NITROFURANTOIN MONOHYDRATE & MACROCRYSTAL 100 MG ORAL CAP Portions of this note have been entered by ancillary staff. I have reviewed and when necessary edited, so that they are an adequate record of my encounter with this patient Please note that parts of this document were created using voice recognition software and therefore may contain grammatical errors. Patient verbalizes understanding of instructions from today's visit and in agreement with treatmentplan. Questions answered. Agrees to call the office if questions, concerns of issues with acute symptoms not improving or if they worsen. See diagnoses and orders for additional plan(s). Allergies and medications were reviewed, list was updated, and refills given if needed. Past medical, surgical, social, and family history reviewed and updated as appropriate. Encouraged proper diet & exercise as well as compliance with taking medications. Age- appropriate health preventative measures were discussed. Return if symptoms worsen or fail to improve, for Keep next scheduled appointment.. Malachi Lilly APRN-KELLY documented [facility] Instructions* Patient Instructions* Grace Wilson LPN - 07/31/2023 2:27 PM EST Images from the original note were not included. Urinary Problem-When to Seek Help? Symptoms of a urinary problem may lead to a bladder infection. Women are at greater risk of a urinary tract infection than are men. Most urinary tract infections in women are caused by bacteria and involve the lower urinary tract including the bladder and urethra. Symptoms: Pain or burning when passing urine, urgency, frequency, blood in the urine, difficult emptying your bladder, and lower abdominal fullness or pressure. Common Causes: Sexual intercourse, menopause, constipation, uncontrolled diabetes, dehydration and feminine products such as tampons, and kidney stones. When to Get Help: Seek medical attention if you get frequent bladder infections, urinary concerns such as leakage, blood in the urine or frequent need to urinate. You may be recommended to get help from a specialist, such as a urologist. Diagnosis & Treatment: Lab testing may include: urinalysis, and urine culture that can be collected in the lab or walk-in clinic. Most bladder infections can easily be treated. A physician, nurse practitioner or physician museum assistant may treat with a short course of an antibiotic. Delaying treatment can lead to worsening symptoms, like a kidney infection. Self-Care: Avoid a full bladder, bubble baths, bath oils, food and beverages that may irritate the bladder such as caffeine. Avoid spermicide foam and diaphragms Void before and after sexual intercourse Wipe front to back after using the bathroom. Stay hydrated Stop Smoking Follow-up Care: Follow up testing is not needed in healthy young women if symptoms resolve. documented in this encounterK[facility]10[facility] Instructions* Patient Instructions* Chance Kolb MD - 06/21/2023 5:17 PM EDT Recommend getting labs every 6 months but at least get every year. Labs ordered so may get every 3 months if needed--do not need to do every 3 months, but wanted you to have them available. For example, if you feel more fatigued and wonder if thyroid medication needs adjusted or could anemia be an issue. documented in this encounterK[facility]10-[facility]23 History of Present illness Narrative* Chance Kolb MD - 06/21/2023 4:59 PM EDT This note was created using [employer]. Subjective Geraldine Hairston is a 72 year old female. Patient presents with: F/U 6 months SUBJECTIVE: Geraldine Hairston is a 72 year old year old lady here today for 6 month follow up appointment for review of medical conditions. Depression symptoms lately due to stressors. Seeing Dr. Joel for right thumb lump. Continues to follow up with GI and psych--stable on current meds. See assessment and plan for other issues addressed. PAST MEDICAL HISTORY Diagnosis Date Anxiety state, unspecified Depressive disorder, not elsewhere classified GERD (gastroesophageal reflux disease) controlled with PPI; follows with Dr. Swan Hypothyroid Irritable bowel syndrome IBS; Dr. Swan--continues follow up; last colonosocpy was at least 2002, possibly 2005. Osteoporosis, unspecified Raynauds syndrome REG ENTERITIS, LG INTEST 06/06/2005 Current Outpatient Medications Medication Sig aspirin, enteric coated (ASPIRIN, ENTERIC COATED) 325 mg EC tablet Take 1 tablet by mouth once daily. atorvastatin (LIPITOR) 20 mg tablet Take 20 mg by mouth daily at bedtime. budesonide, enteric coated (ENTOCORT EC) 3 mg 24 hr capsule Take 3 capsules by mouth once daily. (Dr. John Swan) busPIRone HCl (BUSPAR) 30 mg tablet Take 1 tablet by mouth twice daily. (Gets from psychiatrist now) Calcium-Cholecalciferol, D3, (CALCIUM 600 + D) 600-125 mg-unit tab Take 1 tablet by mouth twice daily. cholecalciferol (VITAMIN D3) 1,000 unit tab tablet Take 185 mg by mouth once daily. DAILY MULTIVITAMIN TAB dicyclomine (BENTYL) 20 mg tablet Take 1 tablet by mouth three times daily. (Dr. Swan prescribing) famotidine (PEPCID) 40 mg tablet Take 1 tablet by mouth once daily. gabapentin (NEURONTIN) 600 mg tablet Take 1 tablet by mouth twice daily. IMODIUM A-D 2 MG TAB Take 2 mg by mouth as needed (When needed). levothyroxine (SYNTHROID) 25 mcg tablet Take 1 tablet by mouth daily before breakfast. LORazepam 0.5 mg Tab Take 1 tablet by mouth three times daily as needed. Prescribing Dr: Keely Moore MD METAMUCIL SMOOTH TEXTURE PACKET one tablespoon in the am with a full glass of water and one tablespoon again in the pm again with a full glass of water daily. NIFEdipine ER (PROCARDIA XL) 30 mg 24 hr tablet Take 6 tablets by mouth once daily. Adjust as direceted omeprazole (PRILOSEC) 40 mg capsule Take 1 capsule by mouth once daily. (Dr. Swan--GI)--insurancewould not cover 40 mg twice daily PARoxetine (PAXIL) 30 mg tablet Take 2.5 tablets by mouth once daily. (from psychiatrist) SALINE MIST 0.65 % NASAL SPRAY AEROSOL Two sprays each nostril twice daily. No current facility-administered medications for this visit. Review of Systems Objective BP 90/60 Pulse 80 Temp 37 C (98.6 F) (Left Tympanic) Resp 20 Wt 40.4 kg (89 lb) BMI 19.60kg/m Physical Exam Constitutional: Appearance: Normal appearance. HENT: Head: Normocephalic. Eyes: Conjunctiva/sclera: Conjunctivae normal. Cardiovascular: Rate and Rhythm: Normal rate and regular rhythm. Heart sounds: Normal heart sounds. Pulmonary: Effort: Pulmonary effort is normal. Breath sounds: Normal breath sounds. Musculoskeletal: Right lower le+ Pitting Edema present. Left lower le+ Pitting Edema present. Skin: General: Skin is warm and dry. Neurological: General: No focal deficit present. Mental Status: She is alert and oriented to person, place, and time. Psychiatric: Mood and Affect: Mood normal. Behavior: Behavior normal. Thought Content: Thought content normal. Judgment: Judgment normal. Assessment and Plan Encounter Diagnosis ICD-10-CM 1. Acquired hypothyroidism E03.9 levothyroxine (SYNTHROID) 25 mcg tablet TSH BLD T4 FREE/FREE THYROX T3 FREE BLD Continue management with levothyroxine 2. Numbness and tingling in right hand R20.0 gabapentin (NEURONTIN) 600 mg tablet R20.2 and sometimes pain; left just occasionally. Follows with Dr. Joel for lump on thumb. Further evaluation and treatment as indicated 3. Raynaud's disease without gangrene I73.00 NIFEdipine ER (PROCARDIA XL) 30 mg 24 hr tablet Controlled with nifedipine and keeping extremities warm 4. Gastroesophageal reflux disease without esophagitis K21.9 5. Vitamin D deficiency E55.9 VITAMIN D 25 HYDROXY Continue management 6. Hypercholesteremia E78.00 Continue Lipitor and lab follow up 7. Crohn's disease of large intestine without complication (HCC) K50.10 Continues to follow up with GI. Stable on current meds 8. Encounter for long-term current use of medication Z79.899 COMP METABOLIC PANEL CBC VITAMIN D 25 HYDROXY TSH BLD T4 FREE/FREE THYROX T3 FREE BLD MAGNESIUM BLD Above issues addressed with patient. Patient involved in shared decision making for management of medical issues. History and medications reviewed. Epic updated as needed Refills and/or prescriptions taken care of and meds adjusted as indicated after reviewed history, exam and labs. Health Maintenance reviewed. Updated record and/or ordered tests as recorded. Encouraged on efforts at healthy diet and regular exercise and adequate sleep. Stable on meds. Continue present management. Further evaluation and treatment as indicated. Chance Kolb MD documented in this encounterK[facility]08[facility] History of Present illness Narrative* Malachi Lilly APRN.DEALERSHIP MANAGER - 05/06/2023 11:18 AM EDT Images from the original note were not included. SUBJECTIVE Geraldine Hairston is a 72 year old female here today for a check up on her medical problems. Chief Complaint Patient presents with: ER F/U: [facility] 04/29/23. Sutures need removed from a dog nail abrasion HPI Geraldine Hairston is a 72 year old female established patient of Dr. Kolb. She presents today for ER follow up. Seen in ER at [facility] on 04/29/2023 for an abrasion. Wound was from a dog nail. Her dog had become excited and jumped up and caught her right ankle with his nail. Went to ER and had sutures placed. ER note is not available for review in care every where yet. Per patient she has 9 stitches. Denies any increased pain or issues with numbness to the area. No drainage, increased warmth, or swelling. TDAP updated in ER. Her medications were reviewed today and her list is now up to date. Medications Current Outpatient Medications Medication Sig famotidine (PEPCID) 40 mg tablet Take 1 tablet by mouth once daily. gabapentin (NEURONTIN) 600 mg tablet Take 1 tablet by mouth twice daily. atorvastatin (LIPITOR) 20 mg tablet Take 20 mg by mouth daily at bedtime. levothyroxine (SYNTHROID) 25 mcg tablet Take 1 tablet by mouth daily before breakfast. NIFEdipine ER (PROCARDIA XL) 30 mg 24 hr tablet Take 6 tablets by mouth once daily. Adjust as direceted omeprazole (PRILOSEC) 40 mg capsule Take 1 capsule by mouth once daily. (Dr. Swan--GI)--insurancewould not cover 40 mg twice daily dicyclomine (BENTYL) 20 mg tablet Take 1 tablet by mouth three times daily. (Dr. Swan prescribing) budesonide, enteric coated (ENTOCORT EC) 3 mg 24 hr capsule Take 3 capsules by mouth once daily. (Dr. John Swan) Calcium-Cholecalciferol, D3, (CALCIUM 600 + D) 600-125 mg-unit tab Take 1 tablet by mouth twice daily. aspirin, enteric coated (ASPIRIN, ENTERIC COATED) 325 mg EC tablet Take 1 tablet by mouth once daily. PARoxetine (PAXIL) 30 mg tablet Take 2.5 tablets by mouth once daily. (from psychiatrist) busPIRone HCl (BUSPAR) 30 mg tablet Take 1 tablet by mouth twice daily. (Gets from psychiatrist now) LORazepam 0.5 mg Tab Take 1 tablet by mouth three times daily as needed. Prescribing Dr: Keely Moore MD cholecalciferol (VITAMIN D3) 1,000 unit tab tablet Take 185 mg by mouth once daily. DAILY MULTIVITAMIN TAB METAMUCIL SMOOTH TEXTURE PACKET one tablespoon in the am with a full glass of water and one tablespoon again in the pm again with a full glass of water daily. SALINE MIST 0.65 % NASAL SPRAY AEROSOL Two sprays each nostril twice daily. IMODIUM A-D 2 MG TAB take as needed (when going out) (Patient not taking: Reported on 03/26/2023) No current facility-administered medications for this visit. ALLERGIES Allergen Reactions Codeine Nausea,dizziness Percocet [Oxycodone* nausea, dizziness ACTIVE PROBLEM LIST Chronic Right Shoulder Pain - 07/27/2019 Raynauds Syndrome Abnormal Mammogram, Unspecified - 12/30/2014 Hypothyroidism - 01/29/2014 Sinus Congestion - 09/12/2013 Gerd (Gastroesophageal Reflux Disease) - 08/01/2010 Comment: Was seen by , coverstitch elastic attacher, [place]. Started on PPI for GERD with good results. Melanocytic Nevus: post scalp & nape/neck: IDN - 06/27/2010 Seborrheic Keratosis - 06/27/2010 Solar Lentigo - 06/27/2010 Actinic Damage///Sun-damaged skin - 06/27/2010 BRONCHITIS PERIODIC - 10/10/2006 Carpal Tunnel Syndrome - 06/04/2006 Regional Enteritis of Large Intestine (Hcc) - 06/06/2005 Irritable Bowel Syndrome - 06/06/2005 Osteoporosis - 06/06/2005 Anxiety State, Unspecified - 06/06/2005 Depression - 06/06/2005 Social History Tobacco Use Smoking status: Never Smokeless tobacco: Never Vaping Use Vaping Use: Never used Substance Use Topics Alcohol use: No Drug use: No Review of Systems Respiratory: Negative. Cardiovascular: Negative. Skin: Positive for wound. OBJECTIVE BP 100/60 Pulse 68 Wt 84 lb 11.2 oz (38.4kg) SpO2 96% Physical Exam Vitals and nursing note reviewed. Constitutional: General: She is awake. She is not in acute distress. Appearance: Normal appearance. She is well-developed and well-groomed. She is not ill-appearing, toxic-appearing or diaphoretic. HENT: Head: Normocephalic. Right Ear: External ear normal. Left Ear: External ear normal. Nose: Nose normal. Eyes: General: Vision grossly intact. Conjunctiva/sclera: Conjunctivae normal. Pupils: Pupils are equal, round, and reactive to light. Neck: Vascular: No JVD. Trachea: Trachea normal. Cardiovascular: Pulses: Normal pulses. Pulmonary: Effort: Pulmonary effort is normal. No accessory muscle usage, prolonged expiration or respiratory distress. Musculoskeletal: Cervical back: Neck supple. Skin: General: Skin is warm and dry. Capillary Refill: Capillary refill takes less than 2 seconds. Comments: Site cleansed, sutures removed x9 without issues, scab intact to the abrasion, abrasion continues to be well approximated. PT tolerated well. Band=aid applied. Neurological: General: No focal deficit present. Mental Status: She is alert and oriented to person, place, and time. Mental status is at baseline. Psychiatric: Attention and Perception: Attention and perception normal. Mood and Affect: Mood and affect normal. Speech: Speech normal. Behavior: Behavior normal. Behavior is cooperative. Thought Content: Thought content normal. Cognition and Memory: Cognition and memory normal. Judgment: Judgment normal. ASSESSMENT/PLAN: 1. Abrasion - ICD9: 919.0, ICD10: T14.8XXA (primary diagnosis) Well healing, well approximated, no signs or symptoms to infection. Tolerated suture removal well, discussed care of the area, signs and symptoms to monitor for, when to seek medical attention. 2. Visit for suture removal - ICD9: V58.32, ICD10: Z48.02 I spent a total of 21 minutes on the date of the service which included preparing to see the patient, [id number] patient care, completing clinical documentation, obtaining and/or reviewing separately obtained history, performing a medically appropriate examination, and counseling and educating the patient/family/caregiver. Portions of this note have been entered by ancillary staff. I have reviewed and when necessary edited, so that they are an adequate record of my encounter with this patient Please note that parts of this document were created using voice recognition software and therefore may contain grammatical errors. Patient verbalizes understanding of instructions from today's visit and in agreement with treatmentplan. Questions answered. Agrees to call the office if questions, concerns of issues with acute symptoms not improving or if they worsen. See diagnoses and orders for additional plan(s). Allergies and medications were reviewed, list was updated, and refills given if needed. Past medical, surgical, social, and family history reviewed and updated as appropriate. Encouraged proper diet & exercise as well as compliance with taking medications. Age- appropriate health preventative measures were discussed. Return if symptoms worsen or fail to improve, for Keep next scheduled appointment.. Malachi Lilly APRN-KELLY documented in this encounter[facility]07[facility]23 Miscellaneous Notes* Letter - Coordinator, Mammography - 03/27/2023 12:52 PM EDT March 28, 2023 PID: [id number] Geraldine Hairston [facility] [place] [address] Dear Ms. Hairston, We are pleased to inform you that the results of your recent breast imaging exam on 03/25/2023 are normal. Your mammogram demonstrates that you have dense breast tissue, which could hide abnormalities. Dense breast tissue, in and of itself, is a relatively common condition. Therefore, this information is not provided to cause undue concern; rather, it is to raise your awareness and promote discussion with your health care provider regarding the presence of dense breast tissue in addition to other riskfactors. Early detection of cancer is very important. We also understand recommendations regarding breast cancer screening are controversial. Please discuss with your primary care provider which strategy is best for you and whether a mammogram is right for you. Your imaging studies and report will be [facility] as part of your permanent medical record and are available for your continuing care. Thank you for allowing us to help in meeting your health care needs. Sincerely, Dr. Smith Interpreting Radiologist [facility] (Normal over 40) documented in this encounterK[facility]07-18-2023 Instructions* Patient Instructions* Malachi Lilly APRN.CNP - 03/26/2023 10:56 AM EDT Try cutting off the finger of a glove and keeping the finger that hurts covered. Start taking Pepcid daily along with your omeprazole. Go to the eye doctor to have your eyes and glasses checked. Hopefully less aleve will help your headaches. See ortho hand specialist for the bump on your thumb. documented in this encounterK[facility]07-18-2023 History of Present illness Narrative* Malachi Lilly APRN.CNP - 03/26/2023 10:43 AM EDT Images from the original note were not included. SUBJECTIVE Geraldine Hairston is a 72 year old female here today for acute concerns. Chief Complaint Patient presents with: Headaches: states happens everyday currently does not have headache treats with Excedrin which does help Nausea: happens after eating in am question if esphagus as she has a burning sensation. Going to reach out to her coverstitch elastic attacher to see about completing EGD Pain: right hand 4th digit at the tip of finger has pain off and on HPI Geraldine Hairston is a 72 year old female established patient who presents acutely with several concerns.Headaches bad the last month. Getting more nausea too, seems to come with the headaches. Occurs after eating in the morning. More burning sensation in the stomach than anything. Not sure about light or sound sensitivity. Last got new glasses a year ago. Laying down with glasses off helps. Hurts across front of forehead. Has an up coming colonoscopy, going to see if she can have an EGD too. Taking her omeprazole, no missed doses. Hand has been bothering her more the last month. Specifically her right hand, 4th digit, anterior surface, distally. She does have raynaud's. Not numb, tinglingor sharp or burning. If keeps this warm it helps. Also noticing her right thumb has a lump on the joint and is hard to bend. Her medications were reviewed today and her list is now up to date. Medications Current Outpatient Medications Medication Sig gabapentin (NEURONTIN) 600 mg tablet Take 1 tablet by mouth twice daily. atorvastatin (LIPITOR) 20 mg tablet Take 20 mg by mouth daily at bedtime. levothyroxine (SYNTHROID) 25 mcg tablet Take 1 tablet by mouth daily before breakfast. NIFEdipine ER (PROCARDIA XL) 30 mg 24 hr tablet Take 6 tablets by mouth once daily. Adjust as direceted omeprazole (PRILOSEC) 40 mg capsule Take 1 capsule by mouth once daily. (Dr. Swan--GI)--insurancewould not cover 40 mg twice daily dicyclomine (BENTYL) 20 mg tablet Take 1 tablet by mouth three times daily. (Dr. Swan prescribing) budesonide, enteric coated (ENTOCORT EC) 3 mg 24 hr capsule Take 3 capsules by mouth once daily. (Dr. John Swan) Calcium-Cholecalciferol, D3, (CALCIUM 600 + D) 600-125 mg-unit tab Take 1 tablet by mouth twice daily. aspirin, enteric coated (ASPIRIN, ENTERIC COATED) 325 mg EC tablet Take 1 tablet by mouth once daily. PARoxetine (PAXIL) 30 mg tablet Take 2.5 tablets by mouth once daily. (from psychiatrist) busPIRone HCl (BUSPAR) 30 mg tablet Take 1 tablet by mouth twice daily. (Gets from psychiatrist now) LORazepam 0.5 mg Tab Take 1 tablet by mouth three times daily as needed. Prescribing Dr: Keely Moore MD cholecalciferol (VITAMIN D3) 1,000 unit tab tablet Take 185 mg by mouth once daily. DAILY MULTIVITAMIN TAB METAMUCIL SMOOTH TEXTURE PACKET one tablespoon in the am with a full glass of water and one tablespoon again in the pm again with a full glass of water daily. SALINE MIST 0.65 % NASAL SPRAY AEROSOL Two sprays each nostril twice daily. famotidine (PEPCID) 40 mg tablet Take 1 tablet by mouth once daily. IMODIUM A-D 2 MG TAB take as needed (when going out) (Patient not taking: Reported on 03/26/2023) No current facility-administered medications for this visit. ALLERGIES Allergen Reactions Codeine Nausea,dizziness Percocet [Oxycodone* nausea, dizziness ACTIVE PROBLEM LIST Chronic Right Shoulder Pain - 07/27/2019 Raynauds Syndrome Abnormal Mammogram, Unspecified - 12/30/2014 Hypothyroidism - 01/29/2014 Sinus Congestion - 09/12/2013 Gerd (Gastroesophageal Reflux Disease) - 08/01/2010 Comment: Was seen by , coverstitch elastic attacher, [place]. Started on PPI for GERD with good results. Melanocytic Nevus: post scalp & nape/neck: IDN - 06/27/2010 Seborrheic Keratosis - 06/27/2010 Solar Lentigo - 06/27/2010 Actinic Damage///Sun-damaged skin - 06/27/2010 BRONCHITIS PERIODIC - 10/10/2006 Carpal Tunnel Syndrome - 06/04/2006 Regional Enteritis of Large Intestine (Hcc) - 06/06/2005 Irritable Bowel Syndrome - 06/06/2005 Osteoporosis - 06/06/2005 Anxiety State, Unspecified - 06/06/2005 Depression - 06/06/2005 Social History Tobacco Use Smoking status: Never Smokeless tobacco: Never Vaping Use Vaping Use: Never used Substance Use Topics Alcohol use: No Drug use: No Review of Systems Respiratory: Negative. Cardiovascular: Negative. Neurological: Positive for headaches. Negative for dizziness, tremors, seizures, syncope, facial asymmetry, speech difficulty, weakness, light-headedness and numbness. OBJECTIVE BP 100/54 Pulse 75 Wt 83 lb (37.6kg) SpO2 85% Physical Exam Vitals and nursing note reviewed. Constitutional: General: She is awake. She is not in acute distress. Appearance: Normal appearance. She is well-developed and well-groomed. She is not ill-appearing, toxic-appearing or diaphoretic. HENT: Head: Normocephalic. Right Ear: External ear normal. Left Ear: External ear normal. Nose: Nose normal. Eyes: General: Vision grossly intact. Conjunctiva/sclera: Conjunctivae normal. Pupils: Pupils are equal, round, and reactive to light. Neck: Vascular: No JVD. Trachea: Trachea normal. Cardiovascular: Rate and Rhythm: Normal rate and regular rhythm. Pulses: Normal pulses. Heart sounds: Normal heart sounds. No murmur heard. Pulmonary: Effort: Pulmonary effort is normal. No accessory muscle usage, prolonged expiration or respiratory distress. Breath sounds: Normal breath sounds. Musculoskeletal: Hands: Cervical back: Neck supple. Skin: General: Skin is warm and dry. Capillary Refill: Capillary refill takes less than 2 seconds. Neurological: General: No focal deficit present. Mental Status: She is alert and oriented to person, place, and time. Mental status is at baseline. Psychiatric: Attention and Perception: Attention and perception normal. Mood and Affect: Mood and affect normal. Speech: Speech normal. Behavior: Behavior normal. Behavior is cooperative. Thought Content: Thought content normal. Cognition and Memory: Cognition and memory normal. Judgment: Judgment normal. ASSESSMENT/PLAN: 1. Nodule of finger of right hand - ICD9: 782.2, ICD10: R22.31 (primary diagnosis) Can have her see a hand specialist to determine treatment options. - CONSULT TO ORTHOPAEDICS 2. Thumb joint locking - ICD9: 718.94, ICD10: M24.849 - CONSULT TO ORTHOPAEDICS 3. Other headache syndrome - ICD9: 339.89, ICD10: G44.89 Possibly from over use of NSAIDs with finger pain or related to her glasses. Advised follow up witheye provider and we will try to reduce the NSAID use. 4. Gastroesophageal reflux disease without esophagitis - ICD9: 530.81, ICD10: K21.9 - Discussed lifestyle modifications including losing weight, limiting caffeine, no meals three hours before sleep, and head of bed elevation - Add Pepcid 5. Raynaud's disease without gangrene - ICD9: 443.0, ICD10: I73.00 Discussed keeping digit covered, consider cutting a finger from a glove and wearing the sleeve on that digit. Portions of this note have been entered by ancillary staff. I have reviewed and when necessary edited, so that they are an adequate record of my encounter with this patient Please note that parts of this document were created using voice recognition software and therefore may contain grammatical errors. Patient verbalizes understanding of instructions from today's visit and in agreement with treatmentplan. Questions answered. Agrees to call the office if questions, concerns of issues with acute symptoms not improving or if they worsen. See diagnoses and orders for additional plan(s). Allergies and medications were reviewed, list was updated, and refills given if needed. Past medical, surgical, social, and family history reviewed and updated as appropriate. Encouraged proper diet & exercise as well as compliance with taking medications. Age- appropriate health preventative measures were discussed. Return if symptoms worsen or fail to improve, for Keep next scheduled appointment.. Malachi Lilly APRN-KELLY documented in this encounterK[facility]07-17-2023 History of Present illness Narrative* Madeline Olmedo RT(R) - 03/25/2023 1:30 PM EDT Radiology Service Progress Note PATIENT NAME: Geraldine Hairston DATE OF SERVICE: March 25, 2023 TIME: 1:54 PM PATIENT IDENTITY VERIFICATION COMPLETED USING TWO (2) IDENTIFIERS: Name and Date of confirmedby patient verbally. FALL SCREENING: Has the patient had 2 falls in the last year or 1 fall with injury or currently using an Ambulatory Assistive Device (Walker, Cane, Wheelchair, Crutches, etc.)? No PATIENT GENDER DATA: Female. status: : No status: NO. PATIENT RELEVANT IMPLANT DATA REVIEWED: Not Applicable RADIOLOGY DEPARTMENT: Mammography PERIPHERAL IV DATA: Not applicable SIGNED BY: RT Eliza(R) March 25, 2023 1:54 PM documented in this encounterKettering [facility]07-17-2023 History of Present illness Narrative* Essie Man APRN.CNP - 03/25/2023 1:16 PM EDT Patient presents today for annual visit due to Medicare guidelines patient does not need to be seenuntil next year. Mammogram orders placed for next year. Essie Man APRN.CNP No charge visit documented in this encounterKettering [facility]03-27-2023 Miscellaneous Notes* Telephone Encounter - Cherise Armenta LPN - 12/03/2022 4:49 PM EDT Patient aware of recent lab results and provider recommended follow up. Cherise Armenta LPN * Telephone Encounter - Cherise Armenta LPN - 12/03/2022 4:45 PM EDT ----- Message from Chance Kolb MD sent at 12/02/2022 6:38 PM EDT ----- TSH and Free T4 within normal limits. Free T3 almost within normal limits now. Okay to stay on samedose Synthroid CMP with improved potassium level almost to normal range. BUN and Cr show she needs to drink more water to stay hydrated and get BUN and Cr back to within normal limits . Nonfasting glucose is okay Nonfasting lipids with TG good <<150 and HDL very good at 107. LDL is over 128. Okay on current Lipitor dose. documented in this encounterKettering [facility]03-18-2023 Miscellaneous Notes* Telephone Encounter - Chance Kolb MD - 11/24/2022 1:34 PM EDT See RX refill done November 24, 2022 documented in this encounterKettering [facility]03-18-2023 Miscellaneous Notes* Telephone Encounter - Chance Kolb MD - 11/24/2022 1:33 PM EDT [place] note--stated rib pain not adequately controlled with the RX. The following approved medication requests have been transmitted electronically. Requested Prescriptions Signed Prescriptions Disp Refills HYDROcodone-acetaminophen (NORCO) 5-325 mg per tablet 21 tablet 0 Sig: Take 1-2 tablets by mouth three times daily as needed for pain for up to 7 days. Authorizing Provider: CHANCE KOLB MD Replied to [employer] message as well * Telephone Encounter - Rosalind Jasso LPN - 11/24/2022 9:09 AM EDT Pt calling for refills. documented in this encounterKettering [facility]03-15-2023 Miscellaneous Notes* Telephone Encounter - Ann Marie Kelly LPN - 11/21/2022 1:29 PM EDT Patient has been identified by name and date of : Yes Patient phones for refill(s): Requested Prescriptions Pending Prescriptions Disp Refills gabapentin (NEURONTIN) 600 mg tablet 180 tablet 3 Sig: Take 1 tablet by mouth twice daily. Date of last office visit in primary care: 11/16/2022 6 month follow-up: 06/21/2023 Last 2 Encounter Wt Readings: Date: Wt: 11/16/2022 37.2 kg (82 lb) 08/07/2022 37.9 kg (83 lb 9.6 oz) Previous labs/tests for medication: Not applicable Please advise. Thank you. Ann Marie Kelly LPN documented in this encounterKettering [facility] Hospital03-15-2023 Miscellaneous Notes* Telephone Encounter - Grace Wilson LPN - 11/21/2022 11:37 AM EDT See My Chart encounter dated 11/20/22. * Telephone Encounter - Courtney Patrick RN - 11/19/2022 2:43 PM EDT Spoke with patient. Given message from provider's office. Patient verbalizes understanding. Patientsays pain is adequately controlled. Taking pain med mostly at bedtime. Courtney Patrick RN * Telephone Encounter - Grace Wilson LPN - 11/19/2022 2:36 PM EDT Attempted to reach patient with no answer and unable to leave a message due to mailbox is full. My Chart message of results sent to patient. * Telephone Encounter - Malachi Lilly APRN.KELLY - 11/19/2022 2:23 PM EDT Please let her know that xray does confirm there is a fracture of the RIGHT eighth rib and possiblya fracture of the RIGHT ninth rib. Is the pain medication helping make her pain tolerable? When coughing or sneezing she should splint her right side. Also she needs to be sure to do coughing and deep breathing regularly to help prevent issues that can occur from taking small shallow breaths with rib fractures. * Telephone Encounter - Deidra Kohler RN - 11/19/2022 10:50 AM EDT Patient calling to ask PCP to advise on recent RIB/CHEST XRAY results from 11/16. Patient states she continues to have pain in her right side. States "if I move the wrong way, it hurts" but if she "settles in, in the right way the pain is not too bad". Continues pain medication asordered. Deidra Kohler RN documented in this encounterKettering [facility]03-10-2023 History of Present illness Narrative* Chance Kolb MD - 11/16/2022 2:02 PM EST This note was created using Boxx[employer]. Subjective Geraldine Hairston is a 72 year old female. Patient presents with: F/U 6 months SUBJECTIVE: Geraldine Hairston is a 72 year old year old lady here today for 6 month follow up appointment for review of medical conditions. Fell noon yesterday.Incline up to door; and slipped and hurt right hit right lower ribs. Was having panic attack. Day was crazy. Had Bible study in AM. Saw counselor after that. Was really anxious. Went to ER. Was acting out of character. Was sent to inpatient site. Recently had episode. and was from recurrent UTI. Had prescriptions for pills from and hospital. Turns out the confusion was due to UTI. PAST MEDICAL HISTORY Diagnosis Date Anxiety state, unspecified Depressive disorder, not elsewhere classified GERD (gastroesophageal reflux disease) controlled with PPI; follows with Dr. Swan Hypothyroid Irritable bowel syndrome IBS; Dr. Swan--continues follow up; last colonosocpy was at least 2002, possibly 2005. Osteoporosis, unspecified Raynauds syndrome REG ENTERITIS, LG INTEST 06/06/2005 Current Outpatient Medications Medication Sig levothyroxine (SYNTHROID) 25 mcg tablet Take 1 tablet by mouth daily before breakfast. NIFEdipine ER (PROCARDIA XL) 30 mg 24 hr tablet Take 6 tablets by mouth once daily. Adjust as direceted omeprazole (PRILOSEC) 40 mg capsule Take 1 capsule by mouth once daily. (Dr. Swan--GI)--insurancewould not cover 40 mg twice daily gabapentin (NEURONTIN) 600 mg tablet Take 1 tablet by mouth twice daily. dicyclomine (BENTYL) 20 mg tablet Take 1 tablet by mouth three times daily. (Dr. Swan prescribing) budesonide, enteric coated (ENTOCORT EC) 3 mg 24 hr capsule Take 3 capsules by mouth once daily. (Dr. John Swan) Calcium-Cholecalciferol, D3, (CALCIUM 600 + D) 600-125 mg-unit tab Take 1 tablet by mouth twice daily. aspirin, enteric coated (ASPIRIN, ENTERIC COATED) 325 mg EC tablet Take 1 tablet by mouth once daily. PARoxetine (PAXIL) 30 mg tablet Take 2.5 tablets by mouth once daily. (from psychiatrist) busPIRone HCl (BUSPAR) 30 mg tablet Take 1 tablet by mouth twice daily. (Gets from psychiatrist now) LORazepam 0.5 mg Tab Take 1 tablet by mouth three times daily as needed. Prescribing Dr: Keely Moore MD cholecalciferol (VITAMIN D3) 1,000 unit tab tablet Take 185 mg by mouth once daily. DAILY MULTIVITAMIN TAB IMODIUM A-D 2 MG TAB take as needed (when going out) METAMUCIL SMOOTH TEXTURE PACKET one tablespoon in the am with a full glass of water and one tablespoon again in the pm again with a full glass of water daily. SALINE MIST 0.65 % NASAL SPRAY AEROSOL Two sprays each nostril twice daily. No current facility-administered medications for this visit. Review of Systems Objective BP 104/60 Pulse 96 Temp 36.3 C (97.3 F) Resp 18 Wt 37.2 kg (82 lb) SpO2 96% BMI 18.06 kg/m Physical Exam Constitutional: Appearance: Normal appearance. HENT: Head: Normocephalic. Eyes: Conjunctiva/sclera: Conjunctivae normal. Cardiovascular: Rate and Rhythm: Normal rate and regular rhythm. Heart sounds: Normal heart sounds. Pulmonary: Effort: Pulmonary effort is normal. Breath sounds: Normal breath sounds. Skin: General: Skin is warm and dry. Neurological: General: No focal deficit present. Mental Status: She is alert and oriented to person, place, and time. Psychiatric: Attention and Perception: Attention and perception normal. Mood and Affect: Mood and affect normal. Behavior: Behavior normal. Thought Content: Thought content normal. Judgment: Judgment normal. Prior labs: Component Latest Ref Rng & Units 09/20/2021 03/30/2022 Protein, Total 6.3 - 8.0 g/dL 6.6 6.8 Albumin 3.9 - 4.9 g/dL 4.4 4.5 Calcium 8.5 - 10.2 mg/dL 9.2 9.3 Bilirubin, Total 0.2 - 1.3 mg/dL <0.2 (L) 0.2 Alkaline Phosphatase 34 - 123 U/L 41 47 AST 13 - 35 U/L 15 19 Glucose 74 - 99 mg/dL 76 91 BUN 7 - 21 mg/dL 20 14 Creatinine 0.58 - 0.96 mg/dL 0.84 0.96 Sodium 136 - 144 mmol/L 142 139 Potassium 3.7 - 5.1 mmol/L 3.4 (L) 3.4 (L) Chloride 97 - 105 mmol/L 102 101 CO2 22 - 30 mmol/L 27 26 Anion Gap 9 - 18 mmol/L 13 12 ALT 7 - 38 U/L 14 28 eGFR- >60 eGFR-All Other Races . >60 eGFR >=60 mL/min/1.73m 63 WBC 3.70 - 11.00 k/uL 8.62 7.71 RBC 3.90 - 5.20 m/uL 4.46 4.59 Hemoglobin 11.5 - 15.5 g/dL 13.8 14.1 Hematocrit 36.0 - 46.0 % 42.9 44.2 MCV 80.0 - 100.0 fL 96.2 96.3 MCH 26.0 - 34.0 pg 30.9 30.7 MCHC 30.5 - 36.0 g/dL 32.2 31.9 RDW-CV 11.5 - 15.0 % 13.6 12.6 Platelet Count 150 - 400 k/uL 225 252 MPV 9.0 - 12.7 fL 9.9 10.2 Absolute nRBC <0.01 k/uL <0.01 <0.01 Magnesium 1.7 - 2.3 mg/dL 2.1 Vitamin D 25 Hydroxy 31.0 - 80.0 ng/mL 82.9 (H) 61.0 TSH 0.270 - 4.200 mIU/L 2.220 1.140 Free T4 0.9 - 1.7 ng/dL 1.4 1.3 Free T3 2.3 - 4.1 pg/mL 2.1 (L) Assessment and Plan ASSESSMENT/PLAN: 1. Acquired hypothyroidism - ICD9: 244.9, ICD10: E03.9 (primary diagnosis) - Instructed patient on importance of taking on an empty stomach either first thing in the morning or at bedtime. Weight decreasing - Behavioral intervention - TSH BLD - T4 FREE/FREE THYROX - T3 FREE BLD 2. Vitamin D deficiency - ICD9: 268.9, ICD10: E55.9 Last Vitamin D level was fine. Check with next labs. - COMP METABOLIC PANEL 3. Hypercholesteremia - ICD9: 272.0, ICD10: E78.00 Further evaluation and treatment as indicated. - LIPID PANEL, NONFASTING 4. Rib pain on right side - ICD9: 786.50, ICD10: R07.81 Further evaluation and treatment as indicated. - XR RIBS/CHEST 3V AP RIB/OBLS/CXR RIGHT 5. Chronic right shoulder pain - ICD9: 719.41, 338.29, ICD10: M25.511, G89.29 Further evaluation and treatment as indicated. - HYDROCODONE 5 MG-ACETAMINOPHEN 325 MG TABLET 6. Long-term current use of mesalamine - ICD9: V58.69, ICD10: Z79.899 - COMP METABOLIC PANEL 7. Encounter for long-term current use of medication - ICD9: V58.69, ICD10: Z79.899 - LIPID PANEL, NONFASTING Chance Kolb MD documented in this encounterKet[facility]02-08-2023 Miscellaneous Notes* Telephone Encounter - Yuridia Saldaña LPN - 10/17/2022 4:26 PM EST Patient has been identified by name and date of : Yes, Provider Dr. Kolb Date 10/17/22 Time 4:27 pm Patient phones for refill(s): Requested Prescriptions Pending Prescriptions Disp Refills levothyroxine (SYNTHROID) 25 mcg tablet 90 tablet 3 Sig: Take 1 tablet by mouth daily before breakfast. NIFEdipine ER (PROCARDIA XL) 30 mg 24 hr tablet 540 tablet 3 Sig: Take 6 tablets by mouth once daily. Adjust as direceted Date of last office visit in primary care: 03/30/22 next apt 11/16/22 Last 2 Encounter Wt Readings: Date: Wt: 08/07/2022 37.9 kg (83 lb 9.6 oz) 03/30/2022 38.6 kg (85 lb) Previous labs/tests for medication: Thyroid: TSH Date Value 03/30/2022 1.140 mIU/L 09/20/2021 2.220 uU/mL Thank you. Yuridia Saldaña LPN documented in this encounterKettering [facility] Hospital01-26-2023 Miscellaneous Notes* Telephone Encounter - Laura Sterling LPN - 10/04/2022 3:58 PM EST Leigh from [facility] Home Health calling to check status of message. Went over notes from Malachi Lilly NPwith understanding. * Telephone Encounter - Malachi Lilly APRN.DEALERSHIP MANAGER - 10/03/2022 9:46 AM EST Noted and agree. She has a urine culture pending, will wait for results. * Telephone Encounter - Ann Marie Wylie RN - 10/03/2022 9:14 AM EST Leigh from [facility] calls and states that shelter will continue to follow patient 1 times for 2 weeks. Patient just finished antibiotics for UTI and shelter wants to makes sure patient is symptom free. Please review and advise, Ann Marie Wylie RN documented in this encounterKettering [facility] Hospital01-23-2023 Miscellaneous Notes* Telephone Encounter - Courtney Patrick RN - 10/01/2022 3:06 PM EST Spoke with Naomi,@ [facility]. Given message from provider's office. She verbalizes understanding. Courtney Patrick RN * Telephone Encounter - Nguyễn Stringer APRN.KOFI - 10/01/2022 2:43 PM EST [place] [facility] visit * Telephone Encounter - Courtney Patrick RN - 10/01/2022 2:26 PM EST nurse Naomi @ [facility] calling with request for order for nursing visit x 1 tomorrow to evaluate patient for extension of nursing services. Courtney Patrick RN documented in this encounterKettering [facility] Hospital01-20-2023 Miscellaneous Notes* Telephone Encounter - Lydia Gold RN - 09/28/2022 4:00 PM EST Patient called and notified of orders and providers instructions. Patient verbalizes understanding. Lydia Gold RN * Telephone Encounter - Malachi Lilly APRN.CNP - 09/28/2022 3:52 PM EST Ok for repeat urinalysis and can culture too so that we ensure no bacterial growth. Thanks * Telephone Encounter - Sue Scott RN - 09/28/2022 3:47 PM EST Pt called in and reports she takes the last of the antibiotic for her UTI today. She was asking if the provider could order another test to make sure it is gone. Pt states she has no symptoms, but said she didn't have any to begin with. Please call and advise. documented in this encounterKettering [facility] Hospital01-17-2023 Miscellaneous Notes* Telephone Encounter - Grace Wilson LPN - 09/25/2022 1:16 PM EST Anila notified of same. * Telephone Encounter - Malachi Lilly APRN.CNP - 09/25/2022 1:04 PM EST May give the verbal okay to for this. Thanks * Telephone Encounter - Ann Marie Wylie RN - 09/25/2022 12:59 PM EST Ainla from [facility] calls and is requesting an order for 1 time nursing evaluation to assessing further nursing needs. Please review and advise, Ann Marie Wylie RN documented in this encounterKettering [facility] Hospital01-10-2023 Miscellaneous Notes* Telephone Encounter - Ann Marie Kelly LPN - 09/18/2022 3:29 PM EST Patient notified of below results/recommendation, verbalized understanding. Ann Marie Kelly LPN * Telephone Encounter - Malachi Lilly APRN.CNP - 09/18/2022 12:45 PM EST Please let patient know urine dip still shows UTI, will send in for x10 days Bactrim. documented in this encounterKettering [facility] Hospital01-06-2023 Miscellaneous Notes* Addendum Note - Grace Wilson LPN - 09/14/2022 4:17 PM ESTAddended by: GRACE WILSON LPN on: 09/14/2022 04:17 PM Modules accepted: Orders * Telephone Encounter - Grace Wilson LPN - 09/14/2022 4:02 PM EST Attempted to reach patient with no answer and unable to leave message due to mailbox being full. Copy of order faxed to [facility] to collect urine if that works for the patient. * Telephone Encounter - Malachi Lilly APRN.CNP - 09/14/2022 3:52 PM EST Okay to repeat a urine dip, I think she has HH, can we see if they will accept a verbal or do they need it printed. I can place an Epic order just incase they need it. * Telephone Encounter - Ann Marie Wylie RN - 09/14/2022 11:33 AM EST Patient calls and states that she was recently in the hospital for UTI. Patient asking if provider can write orders for patient to recheck urine to make sure UTI is gone? Patient states that she currently has no symptoms Please review and advise, Ann Marie Wylie, RN documented in this encounterKettering [facility] Hospital01-06-2023 Miscellaneous Notes* Telephone Encounter - Grace Wilson LPN - 09/14/2022 3:32 PM EST Adela aware of ok. * Telephone Encounter - Malachi Lilly APRN.CNP - 09/14/2022 3:28 PM EST Okay to give verbal ok, thank you * Telephone Encounter - Laura Sterling LPN - 09/14/2022 12:50 PM EST Adela from [facility] Home Health calling patient is agreeable to 1 visit weekly for 2 weeks for shelter, working on medication education and depression. Asking if PCP would give verbal order to agree? Please advise documented in this encounterKettering [facility] Hospital01-06-2023 Miscellaneous Notes* Telephone Encounter - Grace Wilson LPN - 09/14/2022 3:30 PM EST Left message for [place] that SW eval is approved. * Telephone Encounter - Malachi Lilly APRN.CNP - 09/14/2022 3:26 PM EST Please return call and let them know okay for social work eval. thanks * Telephone Encounter - Deidra Kohler RN - 09/14/2022 3:09 PM EST Alia, social secretary with [facility] is requesting a verbal order for pt to have Social Work Evaluation next week, if provider approves. Please call Alia with order at [phone]. Thank you. documented in this encounterKettering [facility] Hospital01-04-2023 Miscellaneous Notes* Telephone Encounter - Deidra Kohler RN - 09/12/2022 2:21 PM EST Nathna with [facility] Physical Therapy calling to report plan of care for pt. PT will see patient 2 times per week for 3 weeks for functional mobility training. No call back needed if provider agreeable. Deidra Kohler RN documented in this encounterKettering [facility] Hospital01-04-2023 Miscellaneous Notes* Telephone Encounter - Courtney Patrick RN - 09/12/2022 1:41 PM EST KORINA Cooney @ [facility] calling to let PCP know patient was seen and evaluated for OT services. She has good support from and denies need for further OT services. Her BP was 88/52. OT did not do a re check. Ivet states she discussed increasing hydration and increased mobility with patient. Courtney Patrick RN documented in this encounterKettering [facility] Hospital01-03-2023 Miscellaneous Notes* Telephone Encounter - Grace Wilson LPN - 09/11/2022 4:39 PM EST Left message for Alia that Dr. Kolb will follow. * Telephone Encounter - Malachi Lilly APRN.CNP - 09/11/2022 2:29 PM EST Yes, we will follow. * Telephone Encounter - Terrence Buckley RN - 09/07/2022 2:38 PM EST Alia- [facility] HH reports patient will be discharged from [facility] tomorrow with [facility], and they plan to do start of care next week after the holiday. Asking if pcp is agreeable to follow for orders? Please phone Alia with vo. documented in this encounterKettering [facility] Hospital11-29-2022 History of Present illness Narrative* Cele Balbuena RT(R) - 08/07/2022 11:40 AM EST Radiology Service Progress Note PATIENT NAME: Geraldine Hairston DATE OF SERVICE: August 07, 2022 TIME: 12:18 PM PATIENT IDENTITY VERIFICATION COMPLETED USING TWO (2) IDENTIFIERS: Name and Date of confirmedby patient verbally. FALL SCREENING: Has the patient had 2 falls in the last year or 1 fall with injury or currently using an Ambulatory Assistive Device (Walker, Cane, Wheelchair, Crutches, etc.)? No PATIENT GENDER DATA: Female. status: : No status: NO. PATIENT RELEVANT IMPLANT DATA REVIEWED: Yes RADIOLOGY DEPARTMENT: General X-ray: Exam(s) Completed: Chest X-Ray PERIPHERAL IV DATA: Not applicable SIGNED BY: RT [place](R) August 07, 2022 12:18 PM documented in this encounterKettering Memorial Hospital10-13-2022 Miscellaneous Notes* Telephone Encounter - Rosalind Jasso LPN - 06/21/2022 3:25 PM EDT Pt has not reviewed the my chart message. Called her and all reviewed. She doubts she would like to do the prolia again as she believes she had side effects from it. She will review the my chart message and think about the reclast. * Telephone Encounter - Rosalind Jasso LPN - 05/31/2022 2:34 PM EDT ----- Message from Chance Kolb MD sent at 05/26/2022 4:18 PM EDT ----- No significant change in bone density but left femoral neck very low at -3.5. High risk for fracture. Would see if she would reconsider treatment options. Since has hiatal hernia, not oral med like fosamax but IV Reclast or Prolia (stopped before due to cost). If declines, recommend repeat bone density in 2 years and reconsider treating. MyChart message sent in case does not see MyChart comment on result of bone density documented [facility] Miscellaneous Notes* Telephone Encounter - Rosalind Jasso LPN - 05/16/2022 2:19 PM EDT Patient notified of results and provider's instructions. Patient verbalizes understanding. Pt denies any urinary issues. Rosalind Jasso LPN * Telephone Encounter - Rosalind Jasso LPN - 05/15/2022 1:16 PM EDT My chart message to pt. * Telephone Encounter - Rosalind Jasso LPN - 05/15/2022 1:15 PM EDT ----- Message from Chance Kolb MD sent at 05/14/2022 6:24 PM EDT ----- CBC and thyroid labs within normal limits Vitamin D level good in 60 range. Urinalysis was unremarkable but grew bacteria. Would see if has developed any UTI symptoms since was seen In March. If none, then do not need to treat given normal UA and no symptoms. If having symptoms, then can still treat now and recheck urine studies as needed based on symptoms. documented in this encounterK[facility] History of Present illness Narrative* RT Vernell(R) - 04/11/2022 3:00 PM EDT Radiology Service Progress Note PATIENT NAME: Geraldine Hairston DATE OF SERVICE: April 11, 2022 TIME: 2:58 PM PATIENT IDENTITY VERIFICATION COMPLETED USING TWO (2) IDENTIFIERS: Name and Date of confirmedby patient verbally. FALL SCREENING: Has the patient had 2 falls in the last year or 1 fall with injury or currently using an Ambulatory Assistive Device (Walker, Cane, Wheelchair, Crutches, etc.)? Yes, Patient High Riskfor Falls What interventions were put in place to prevent falls during this visit? Increased Observations by Caregivers PATIENT GENDER DATA: Female. status: : No status: NO. PATIENT RELEVANT IMPLANT DATA REVIEWED: Not Applicable RADIOLOGY DEPARTMENT: Bone Density PERIPHERAL IV DATA: Not applicable SIGNED BY: RT Vernell(R) April 11, 2022 2:58 PM documented in this encounterK[facility]07-25-2022 Miscellaneous Notes* Telephone Encounter - Dagmar Tang Ma - 04/02/2022 11:46 AM EDT Patient notified of results * Telephone Encounter - Dagmar Tang Ma - 04/02/2022 11:45 AM EDT ----- Message from Chance Kolb MD sent at 04/02/2022 1:43 AM EDT ----- Noted there is a hazy area seen only on lateral view in lower thoracic spine area. No mass seen. Would recheck in 1 to 2 months to see if resolves. documented in this encounterK[facility]07[facility]22-[facility]22 History of Present illness Narrative* Cele Balbuena RT(R) - 03/30/2022 2:10 PM EDT Radiology Service Progress Note PATIENT NAME: Geraldine Hairston DATE OF SERVICE: March 30, 2022 TIME: 2:06 PM PATIENT IDENTITY VERIFICATION COMPLETED USING TWO (2) IDENTIFIERS: Name and Date of confirmedby patient verbally. FALL SCREENING: Has the patient had 2 falls in the last year or 1 fall with injury or currently using an Ambulatory Assistive Device (Walker, Cane, Wheelchair, Crutches, etc.)? No PATIENT GENDER DATA: Female. status: : No status: NO. PATIENT RELEVANT IMPLANT DATA REVIEWED: Yes RADIOLOGY DEPARTMENT: General X-ray: Exam(s) Completed: Chest X-Ray PERIPHERAL IV DATA: Not applicable SIGNED BY: RT [place](R) March 30, 2022 2:06 PM documented in this encounterK[facility]07-22-2022 History of Present illness Narrative* Chance Kolb MD - 03/30/2022 1:24 PM EDT Images from the original note were not included. This note was created using [employer]. Subjective Geraldine Hairston is a 71 year old female. Patient presents with: F/U 6 months SUBJECTIVE: Geraldine Hairston is a 71 year old year old lady here today for 6 month follow up appointment for review of medical conditions. Still has two fingers (right ring and middle fingers) that bother her off and on. Not always daily.Just bothersome. Tolerating the 6 pills nifedipine daily. Gets a little sun daily to get some Vitamin D. Doing well on meds from Dr. Swan and Dr Jacob Moore. Has had more heartburn. Lasted a week. Took peptobismol and had to take several times a day. Doing better now. Told should get EGD since has been about 8 years since last one. Scheduled for EGD. Notethat insurance would not cover twice daily PPI so was changed to 40 mg once daily. Cough--coughs a lot and brings stuff up from lungs. Started in the past year. Drinking a lot going to bathroom a lot. Past week. Really fatigued. Attributed to losing Dad 2020, then mom last year, then cousin this year. Sleeping more lately. Eating okay. Gets counseling at [place]. Noted weight loss. PAST MEDICAL HISTORY Diagnosis Date Anxiety state, unspecified Depressive disorder, not elsewhere classified GERD (gastroesophageal reflux disease) controlled with PPI; follows with Dr. Swan Hypothyroid Irritable bowel syndrome IBS; Dr. Swan--continues follow up; last colonosocpy was at least 2002, possibly 2005. Osteoporosis, unspecified Raynauds syndrome REG ENTERITIS, LG INTEST 06/06/2005 Current Outpatient Medications Medication Sig NIFEdipine ER (PROCARDIA XL) 30 mg 24 hr tablet Take 6 tablets by mouth once daily. Adjust as direceted gabapentin (NEURONTIN) 600 mg tablet Take 1 tablet by mouth twice daily. levothyroxine (SYNTHROID) 25 mcg tablet Take 1 tablet by mouth daily before breakfast. dicyclomine (BENTYL) 20 mg tablet Take 1 tablet by mouth three times daily. (Dr. Swan prescribing) budesonide, enteric coated (ENTOCORT EC) 3 mg 24 hr capsule Take 3 capsules by mouth once daily. (Dr. Jhon Swan) omeprazole (PRILOSEC) 20 mg capsule Take 2 capsules by mouth twice daily. (Dr. Swan--GI) Calcium-Cholecalciferol, D3, (CALCIUM 600 + D) 600-125 mg-unit tab Take 1 tablet by mouth twice daily. aspirin, enteric coated (ASPIRIN, ENTERIC COATED) 325 mg EC tablet Take 1 tablet by mouth once daily. PARoxetine (PAXIL) 30 mg tablet Take 2.5 tablets by mouth once daily. (from psychiatrist) busPIRone HCl (BUSPAR) 30 mg tablet Take 1 tablet by mouth twice daily. (Gets from psychiatrist now) LORazepam 0.5 mg Tab Take 1 tablet by mouth three times daily as needed. Prescribing Dr: Keely Moore MD Cholecalciferol, Vitamin D3, (VITAMIN D) 1,000 unit ORAL Tab Take 185 mg by mouth once daily. DAILY MULTIVITAMIN TAB IMODIUM A-D 2 MG TAB take as needed (when going out) METAMUCIL SMOOTH TEXTURE PACKET one tablespoon in the am with a full glass of water and one tablespoon again in the pm again with a full glass of water daily. SALINE MIST 0.65 % NASAL SPRAY AEROSOL Two sprays each nostril twice daily. No current facility-administered medications for this visit. Review of Systems Objective BP 98/56 Pulse 75 Wt 38.6 kg (85 lb) SpO2 97% BMI 18.72 kg/m Last 5 Encounter Wt Readings: Date: Wt: 03/30/2022 38.6 kg (85 lb) 03/20/2022 39.4 kg (86 lb 12.8 oz) 02/01/2022 39.2 kg (86 lb 6.4 oz) 11/25/2021 40.2 kg (88 lb 9.6 oz) 10/17/2021 40.8 kg (90 lb) No waist measurement recorded Estimated body mass index is 18.72 kg/m as calculated from the following: Height as of 07/01/20: 143.5 cm (4' 8.5"). Weight as of this encounter: 38.6 kg (85 lb). Last 5 Encounter BP Readings: Date: BP: 03/30/2022 98/56 03/20/2022 100/60 02/01/2022 98/56 11/25/2021 110/60 06/07/2021 102/64 Physical Exam Constitutional: Appearance: Normal appearance. HENT: Head: Normocephalic. Eyes: Conjunctiva/sclera: Conjunctivae normal. Cardiovascular: Rate and Rhythm: Normal rate and regular rhythm. Heart sounds: Normal heart sounds. Pulmonary: Effort: Pulmonary effort is normal. Breath sounds: Normal breath sounds. Skin: General: Skin is warm and dry. Neurological: General: No focal deficit present. Mental Status: She is alert and oriented to person, place, and time. Psychiatric: Mood and Affect: Mood normal. Behavior: Behavior normal. Thought Content: Thought content normal. Judgment: Judgment normal. Assessment and Plan ASSESSMENT/PLAN: 1. Acquired hypothyroidism - ICD9: 244.9, ICD10: E03.9 (primary diagnosis) - Instructed patient on importance of taking on an empty stomach either first thing in the morning or at bedtime. Adjust dose as indicated - TSH BLD - T4 FREE/FREE THYROX - T3 FREE BLD 2. Hypokalemia - ICD9: 276.8, ICD10: E87.6 Adjust diet and/or supplementsas indicated - COMP METABOLIC PANEL 3. Raynaud's disease without gangrene - ICD9: 443.0, ICD10: I73.00 Continue present management. 4. Hypercholesteremia - ICD9: 272.0, ICD10: E78.00 Diet and exercise for now. Consider statin as indicated 5. Crohn's disease of large intestine without complication (HCC) - ICD9: 555.1, ICD10: K50.10 Continue present management. 6. Encounter for long-term current use of medication - ICD9: V58.69, ICD10: Z79.899 - COMP METABOLIC PANEL - CBC 7. Age-related osteoporosis without current pathological fracture - ICD9: 733.01, ICD10: M81.0 - Reviewed the need for Calcium and Vitamin D supplements and weight bearing exercise as tolerated 8. Vitamin D deficiency - ICD9: 268.9, ICD10: E55.9 Adjust supplement as indicated - COMP METABOLIC PANEL - VITAMIN D 25 HYDROXY 9. High vitamin D level - ICD9: 278.4, ICD10: E67.3 Was high in September. Dose held - COMP METABOLIC PANEL - VITAMIN D 25 HYDROXY 10. Fatigue, unspecified type - ICD9: 780.79, ICD10: R53.83 Multifactorial. Needs to make sure to get enough calories in daily. Noted weight decreasing. 11. Chronic cough - ICD9: 786.2, ICD10: R05.3 Further evaluation and treatment as indicated. - XR CHEST 2V FRONTAL/LAT 12. Urinary frequency - ICD9: 788.41, ICD10: R35.0 acute - Patient education for prevention given Treat as indicated - URINALYSIS, WITH MICROSCOPIC - URINE CULTURE 13. Gastroesophageal reflux disease without esophagitis - ICD9: 530.81, ICD10: K21.9 - OMEPRAZOLE 40 MG CAPSULE,DELAYED RELEASE Chance Kolb MD documented in this encounterK[facility]07[facility] History of Present illness Narrative* Leighann Burgos Holographic Projection for [employer] - 03/20/2022 7:50 AM EDT Radiology Service Progress Note PATIENT NAME: Geraldine Hairston DATE OF SERVICE: March 20, 2022 TIME: 7:41 AM PATIENT IDENTITY VERIFICATION COMPLETED USING TWO (2) IDENTIFIERS: Name and Date of confirmedby patient verbally. FALL SCREENING: Has the patient had 2 falls in the last year or 1 fall with injury or currently using an Ambulatory Assistive Device (Walker, Cane, Wheelchair, Crutches, etc.)? No PATIENT GENDER DATA: Female. status: : No status: NO. PATIENT RELEVANT IMPLANT DATA REVIEWED: Not Applicable RADIOLOGY DEPARTMENT: Mammography PERIPHERAL IV DATA: Not applicable SIGNED BY: Leighann Burgos Hövding March 20, 2022 7:41 AM documented in this encounterK[facility]07-12-[facility]22 History of Present illness Narrative* Essie Man APRN.DEALERSHIP MANAGER - 03/20/2022 6:53 AM EDT Geraldine is a 71 year old who presents for an annual gynecologic exam without complaints. Postmenopausal: Yes HRT use: No. 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 Swan Hypothyroid Irritable bowel syndrome IBS; Dr. Swan--continues follow up; last colonosocpy was at least 2002, possibly 2005. Osteoporosis, unspecified Raynauds syndrome REG ENTERITIS, LG INTEST 06/06/2005 PAST SURGICAL HISTORY Procedure Laterality Date COLONOSCOPY FLX DX W/COLLJ SPEC WHEN PFRMD , 02/09, 01/12, Colonoscopy PAST SURGICAL HISTORY OF 80s ankle surgery (L) PAST SURGICAL HISTORY OF 95 cataract surgery PAST SURGICAL HISTORY OF 07/09/2001,09/11 EMB PAST SURGICAL HISTORY OF Right 02/10/2015 right wrist fracture ORIF (Dr. Guerrero) PAST SURGICAL HISTORY OF Right 11/2015 Hip Fracture after fall FAMILY HISTORY Problem Relation Age of Onset Cancer Mother uterus/had hysterectomy/bladder, breast lumps removed in her 30's weren't cancerous. Hypertension Mother Allergies Mother Anesthesia Mother other (Bladder Cancer) Mother Diabetes Father other (Dementia) Father Hypertension Maternal Grandfather Hypertension Maternal Aunt x1 Hypertension Maternal Uncle x4 Diabetes Paternal Uncle SOCIAL HISTORY Social History Tobacco Use Smoking status: Never Smoker Smokeless tobacco: Never Used Vaping Use Vaping Use: Never used Substance Use Topics Alcohol use: No Drug use: No REVIEW OF SYSTEMS Abdomen: No abdominal pain, nausea, vomiting, diarrhea, or constipation. No bloating, early satiety, or increased flatulence.+GERD Bladder: No dysuria, gross hematuria, urinary frequency, urinary urgency, or incontinence Breast: No breast lumps, nipple d/c, overlying skin changes, redness or skin retraction Allergies and current medication updated:Yes EXAM: Wt 86 lb 12.8 oz (39.4kg) GENERAL: pleasant, female in no apparent distress HEENT: Normocephalic, atraumatic, mucus membranes moist and no lesions NECK: Supple, full range of motion, no adenopathy and thyroid normal DERMATOLOGY: Normal, without lesions, non-icteric and non-hirsute BREAST: soft, non-tender, symmetric, no dominant mass, normal nipple-areolar complex, no lymphadenopathy and no nipple discharge CHEST: Normal inspiratory effort ABDOMEN: soft, non-tender and no masses PELVIC: external genitalia normal, normal Bartholin's glands, urethra, Guanica's glands, no vulvar lesions, no cervical lesions, good vaginal support, physiologic discharge present, normal appearing perineal body and perianal region BIMANUAL: uterus normal size, shape and consistency, no adnexal masses and non-tender RECTOVAGINAL: deferred. NEURO: alert and oriented x3,exam grossly non-focal EXTREMITIES: normal ASSESSMENT/PLAN: 1) Health maintenance: Pap/HPV screening no longer needed Mammogram ordered Nutrition, exercise and routine health maintenance exams reviewed. Calcium/Vitamin D supplementation information provided. Colon cancer screening: SEE GI BMD: ordered 2) Follow up one year or sooner as needed Essie Man APRN.CNP documented in this encounterK[facility]05-26-[facility]22 History of Present illness Narrative* Bailey Johnson APRN.CNP - 02/01/2022 1:53 PM EDT This note was created using [employer]. Subjective Geraldine Hairston is a 71 year old female. 71 year old female with PMH Raynauds, hypothyroid, GERD, IBS, depression, and anxiety presents withcomplaints of COVID exposure. 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 Denies she is experiencing symptoms Denies fever or chills. Denies URI sx. Denies cough or congestion. Denies N/V/D Denies body aches or fatigue Denies SOB or dyspnea Requesting COVID testing Denies pain. Denies alleviating factors Denies aggravating factors Denies using homeopathic or OTC medications ANIMAL BEHAVIOURIST. The history is provided by the patient. No language assistant was used. PAST MEDICAL HISTORY Diagnosis Date Anxiety state, unspecified Depressive disorder, not elsewhere classified GERD (gastroesophageal reflux disease) controlled with PPI; follows with Dr. Swan Hypothyroid Irritable bowel syndrome IBS; Dr. Swan--continues follow up; last colonosocpy was at least 2002, possibly 2005. Osteoporosis, unspecified Raynauds syndrome REG ENTERITIS, LG INTEST 06/06/2005 PAST SURGICAL HISTORY Procedure Laterality Date COLONOSCOPY FLX DX W/COLLJ SPEC WHEN PFRMD , 02/09, 01/12, Colonoscopy PAST SURGICAL HISTORY OF 80s ankle surgery (L) PAST SURGICAL HISTORY OF 95 cataract surgery PAST SURGICAL HISTORY OF 07/09/2001,09/11 EMB PAST SURGICAL HISTORY OF Right 02/10/2015 right wrist fracture ORIF (Dr. Guerrero) PAST SURGICAL HISTORY OF Right 11/2015 Hip Fracture after fall ALLERGIES Codeine and Percocet [Oxycodone-Acetaminophen] MEDICATIONS NIFEdipine ER (PROCARDIA XL) 30 mg 24 hr tablet Take 6 tablets by mouth once daily. Adjust as direceted gabapentin (NEURONTIN) 600 mg tablet Take 1 tablet by mouth twice daily. levothyroxine (SYNTHROID) 25 mcg tablet Take 1 tablet by mouth daily before breakfast. dicyclomine (BENTYL) 20 mg tablet Take 1 tablet by mouth three times daily. (Dr. Swan prescribing) budesonide, enteric coated (ENTOCORT EC) 3 mg 24 hr capsule Take 3 capsules by mouth once daily. (Dr. John Swan) omeprazole (PRILOSEC) 20 mg capsule Take 2 capsules by mouth twice daily. (Dr. Swan--GI) Calcium-Cholecalciferol, D3, (CALCIUM 600 + D) 600-125 mg-unit tab Take 1 tablet by mouth twice daily. aspirin, enteric coated (ASPIRIN, ENTERIC COATED) 325 mg EC tablet Take 1 tablet by mouth once daily. PARoxetine (PAXIL) 30 mg tablet Take 2.5 tablets by mouth once daily. (from psychiatrist) busPIRone HCl (BUSPAR) 30 mg tablet Take 1 tablet by mouth twice daily. (Gets from psychiatrist now) LORazepam 0.5 mg Tab Take 1 tablet by mouth three times daily as needed. Prescribing Dr: Keely Moore MD Cholecalciferol, Vitamin D3, (VITAMIN D) 1,000 unit ORAL Tab Take 185 mg by mouth once daily. DAILY MULTIVITAMIN TAB IMODIUM A-D 2 MG TAB take as needed (when going out) METAMUCIL SMOOTH TEXTURE PACKET one tablespoon in the am with a full glass of water and one tablespoon again in the pm again with a full glass of water daily. SALINE MIST 0.65 % NASAL SPRAY AEROSOL Two sprays each nostril twice daily. FAMILY HISTORY Problem Relation Age of Onset Cancer Mother uterus/had hysterectomy/bladder, breast lumps removed in her 30's weren't cancerous. Hypertension Mother Allergies Mother Anesthesia Mother other (Bladder Cancer) Mother Diabetes Father other (Dementia) Father Hypertension Maternal Grandfather Hypertension Maternal Aunt x1 Hypertension Maternal Uncle x4 Diabetes Paternal Uncle Social History Tobacco Use Smoking status: Never Smoker Smokeless tobacco: Never Used Vaping Use Vaping Use: Never used Substance Use Topics Alcohol use: No Drug use: No Review of Systems Constitutional: Negative for activity change, chills, diaphoresis, fatigue and fever. HENT: Negative for congestion, ear pain, postnasal drip, rhinorrhea, sinus pressure, sinus pain, sore throat and tinnitus. Eyes: Negative for photophobia, pain, discharge, redness, itching and visual disturbance. Respiratory: Negative for apnea, cough, choking, chest tightness and shortness of breath. Cardiovascular: Negative for chest pain, palpitations and leg swelling. Gastrointestinal: Negative for abdominal pain, diarrhea, nausea and vomiting. Musculoskeletal: Negative for arthralgias, back pain, gait problem and joint swelling. Skin: Negative for color change, pallor, rash and wound. Allergic/Immunologic: Negative for environmental allergies, food allergies and immunocompromised state. Neurological: Negative for dizziness, facial asymmetry, light-headedness, numbness and headaches. Hematological: Negative for adenopathy. Does not bruise/bleed easily. Psychiatric/Behavioral: Negative for agitation and behavioral problems. Objective BP 98/56 Pulse 75 Temp 36 C (96.8 F) Resp 20 Wt 39.2 kg (86 lb 6.4 oz) SpO2 96% BMI 19.03 kg/m Physical Exam Vitals and nursing note reviewed. Constitutional: General: She is not in acute distress. Appearance: Normal appearance. She is normal weight. She is not ill-appearing, toxic-appearing or diaphoretic. HENT: Head: Normocephalic and atraumatic. Right Ear: Ear canal and external ear normal. Left Ear: Ear canal and external ear normal. Nose: Nose normal. No congestion or rhinorrhea. Mouth/Throat: Mouth: Mucous membranes are moist. Pharynx: No oropharyngeal exudate or posterior oropharyngeal erythema. Eyes: General: Right eye: No discharge. Left eye: No discharge. Extraocular Movements: Extraocular movements intact. Conjunctiva/sclera: Conjunctivae normal. Pupils: Pupils are equal, round, and reactive to light. Cardiovascular: Rate and Rhythm: Normal rate and regular rhythm. Pulses: Normal pulses. Heart sounds: Normal heart sounds. No murmur heard. No friction rub. Pulmonary: Effort: Pulmonary effort is normal. No respiratory distress. Breath sounds: Normal breath sounds. No stridor. No wheezing, rhonchi or rales. Chest: Chest wall: No tenderness. Abdominal: General: Abdomen is flat. There is no distension. Palpations: Abdomen is soft. There is no mass. Tenderness: There is no abdominal tenderness. There is no right CVA tenderness, left CVA tenderness, guarding or rebound. Hernia: No hernia is present. Musculoskeletal: General: No swelling, tenderness, deformity or signs of injury. Normal range of motion. Cervical back: Normal range of motion and neck supple. No rigidity. Right lower leg: No edema. Left lower leg: No edema. Lymphadenopathy: Cervical: No cervical adenopathy. Skin: General: Skin is warm and dry. Capillary Refill: Capillary refill takes less than 2 seconds. Coloration: Skin is not jaundiced or pale. Findings: No bruising, erythema, lesion or rash. Neurological: General: No focal deficit present. Mental Status: She is alert and oriented to person, place, and time. Cranial Nerves: No cranial nerve deficit. Sensory: No sensory deficit. Motor: No weakness. Coordination: Coordination normal. Gait: Gait normal. Psychiatric: Mood and Affect: Mood normal. Behavior: Behavior normal. Thought Content: Thought content normal. Judgment: Judgment normal. Assessment and Plan ASSESSMENT/PLAN: 1. Exposure to COVID-19 virus - ICD9: V01.79, ICD10: Z20.822 +exposure 5 days ANIMAL BEHAVIOURIST Denies symptoms Requesting testing. - ASYMPTOMATIC ELECTIVE [id number] and pending Bailey Johnson APRN.CNP documented in this encounterK[facility]05-26-2022 Instructions* Patient Instructions* Bailey Johnson APRN.KELLY - 02/01/2022 1:53 PM EDT How to Protect Yourself & Others from COVID-19 Wash your hands often Wash your hands often with soap and water for at least 20 seconds especially after you have been [place] public place, or after blowing your nose, coughing, or sneezing. If soap and water are not readily available, use a hand sales stock associate that contains at least 60% alcohol. Cover all surfaces of your hands and rub them together until they feel dry. Avoid touching your eyes, nose, and mouth with unwashed hands. Avoid close contact Inside your home: Avoid close contact with people who are sick. If possible, maintain 6 feet between the person who is sick and other household members. Outside your home: Put 6 feet of distance between yourself and people who don't live in your household. Cover your mouth and nose with a mask when around others Masks help prevent you from getting or spreading the virus. You could spread COVID-19 to others even if you do not feel sick. Everyone should wear a mask in public settings and when around people who don't live in your household, especially when other social distancing measures are difficult to maintain. Masks should not be placed on young children under age 2, anyone who has trouble breathing, or is unconscious, incapacitated or otherwise unable to remove the mask without assistance. Cover coughs and sneezes Always cover your mouth and nose with a tissue when you cough or sneeze or use the inside of your elbow and do not spit. Throw used tissues in the trash. Immediately wash your hands with soap and water for at least 20 seconds. Clean and disinfect Clean AND disinfect frequently touched surfaces daily. This includes tables, doorknobs, light switches, countertops, handles, desks, phones, keyboards, toilets, faucets, and sinks. Monitor Your Health Daily Be alert for symptoms. Watch for fever, cough, shortness of breath, or other symptoms of COVID-19. Especially important if you are running essential errands, going into the office or workplace, and in settings where it may be difficult to keep a physical distance of 6 feet. Take your temperature if symptoms develop. Don't take your temperature within 30 minutes of exercising or after taking medications that could lower your temperature, like acetaminophen. Travel Skip events that put you in contact with large groups of people (sporting events, concerts, theme childress, etc). Avoid unnecessary domestic and international travel, including travel through large international airports. If traveling, wipe down your airplane seat (and tray) with a disinfecting wipe. Office Visits If you have a fever, cough or shortness of breath, or are otherwise concerned you have COVID-19, weask that you do not come to any [facility] facility without calling your primary care physician or speaking to a provider using a virtual visit using [facility] [employer]. You will be evaluated to determine if you require being seen in person or if you meet CDC guidelines for testing for COVID-19 based on symptoms, travel and exposures. If you meet criteria for testing, your [employer] provider or primary care physician will advise how to proceed with testing Immunosuppression There is no need to stop your immunosuppressive medications preemptively. If you become sick, please let your doctor know, and discuss with them prior to stopping any medications. At this point, we have no knowledge that patients on immunosuppressive medications are at higher risk of COVID-19 infection. People with weakened immune systems are at higher risk of getting severely sick from SARS-CoV-2, the virus that causes COVID-19. They may also remain infectious for a longer period of time than others with COVID-19, but we cannot confirm this until we learn more about this new virus. Steps You Can Take to Protect Your Health Continue your regular treatment plan. Don't stop any medications or treatments without talking to your doctor. Discuss any concerns about your treatment with your doctor. Keep your regularly scheduled medical appointments. Talk to your doctor about steps they are taking to reduce risk of exposure to COVID-19 in the office. Use telehealth services whenever possible if recommended by your doctor. Ensure that you are getting necessary tests prescribed by your doctor. Seek urgent medical care if you are feeling unwell. Talk to your doctor, insurer, and pharmacist about getting an emergency supply of prescription medications. Make sure you have at least 30 days of prescription medications, jpdo-dzy-ikxnglh medicines, and supplies on hand in case you need or want to stay home for several weeks. Talk to your doctor or pharmacist about ways to receive your medications by mail. Take steps to care for your emotional health. Fear and anxiety about COVID-19 can be overwhelming and cause strong emotions. It is natural to feel concerned or stressed about COVID-19. - Learn more about stress and coping with anxiety here. Call your healthcare provider if stress gets in the way ofyour daily activities for several days in a row. If you are feeling overwhelmed with emotions like sadness, depression, or anxiety, or feel like youwant to harm yourself or others: ; Call 501 if you feel like you want to harm yourself or others ; Visit the Disaster Distress Helpline call [place] [address] ; Visit the National Domestic Violence Hotline or call and TTY Visit the National Suicide Prevention Lifeline or call and TTY or text Most importantly, don't panic. By following basic prevention measures such as hand hygiene and cover your cough, you are helping to keep yourself and others healthy. Additional information can be found on the [facility] and [facility] web sites: https://www.cdc.gov/coronavirus/2019-nCoV/index.html https://[facility].org/coronavirus documented in this encounterKettering [facility] Hospital05-23-2022 Nurse Note* Sona Urbina - 01/29/2022 2:58 PM EDT no symptoms and exposure was just yesterday, patient agreed to come back in 5 days unless she has symptoms. Sona Urbina documented in this encounterKettering [facility] Hospital04-22-2022 Instructions* Patient Instructions* Jersey Stern V, DO - 12/29/2021 1:26 PM EDT Thank you for choosing the [facility] for your acute care needs. Express Care treats minor infections, rashes and injuries. It is our mission for our patients to be healthy. A primary care relationship with the physician allows for continuity of care, counseling, and maintenance of preventive health care needs. Express Care does not replace the relationship or need for a primary care physician. For information about establishing with a primary care physician or booking an appointment, please call [phone] or speak with any Patient Stretcher Leveler Operator Helper. Hours: Saturday through Saturday 7:30 am to 7:00 pm. Saturday and Saturday: 8:00 am to 2:30 pm. documented in this encounterKettering [facility] Hospital04-22-2022 History of Present illness Narrative* Jersey Stern V, DO - 12/29/2021 1:24 PM EDT FRACTURE FOLLOW-UP Ms. Hairston presents today for her follow-up visit from: left 5th mc fracture She is five weeks post-injury and was last seen four weeks ago. History: her pain intensity is 0/10. The patient denies swelling, warmth, discharge, drainage, fevers, chills, sweats. She reports compliance with therapy, sling/splint/ambulatory device/dressing/wound care, and the use of medications. She reports no change in past medical & surgical history, medications, allergies, social history, family history and review of systems since last visit, with the exception of the following: None Radiographs: Radiographs today revealed bridging callous with intramedullary sclerosis. Otherwise, osseous and soft tissue structures within normal limits. Physical Examination: no tenderness about the 5th mc or hand Positive axillary, musculocutaneous, median, ulna, and radial nerve function Positive distal pulses PROCEDURE: Not applicable Impression: Closed fracture left fifth metacarpal neck with routine healing Plan: Fracture healing appears stable to the point where patient does not necessarily need to be in a splint or protective device at this time. She can resume normal activity. Call for follow-up with any further issues. Jersey Stern DO * Manju Serrato Ma - 12/29/2021 1:18 PM EDT AMB ROOMING INTAKE FLOWSHEET DATA Risk Screening Do you have concerns about personal safety or safety in the home?: No documented in this encounterKettering [facility] Hospital04-22-2022 History of Present illness Narrative* RT Cailin(R) - 12/29/2021 12:30 PM EDT Radiology Service Progress Note PATIENT NAME: Geraldine Hairston DATE OF SERVICE: December 29, 2021 TIME: 1:11 PM PATIENT IDENTITY VERIFICATION COMPLETED USING TWO (2) IDENTIFIERS: Name and Date of confirmedby patient verbally. FALL SCREENING: Has the patient had 2 falls in the last year or 1 fall with injury or currently using an Ambulatory Assistive Device (Walker, Cane, Wheelchair, Crutches, etc.)? Yes, Patient High Riskfor Falls What interventions were put in place to prevent falls during this visit? Instructed Patient to Callfor Help if Needed, Offered Assistance with Transfers/Clothing, Instructed Patient to Remain Seated(Not on Exam Table) Until Exam, Increased Observations by Caregivers and Patient Refused Interventio ns/Assistance PATIENT GENDER DATA: Female. status: : No status: NO. PATIENT RELEVANT IMPLANT DATA REVIEWED: Not Applicable RADIOLOGY DEPARTMENT: General X-ray: Exam(s) Completed: Upper Extremity X- Ray(s): Hand, left PERIPHERAL IV DATA: Not applicable SIGNED BY: RT Cailin(R) December 29, 2021 1:11 PM documented in this encounterKettering [facility] Hospital03-19-2022 History of Present illness Narrative* Aicha Gonzalez RT(R) - 11/25/2021 11:00 AM EDT Radiology Service Progress Note PATIENT NAME: Geraldine Hairston DATE OF SERVICE: November 25, 2021 TIME: 10:54 AM PATIENT IDENTITY VERIFICATION COMPLETED USING TWO (2) IDENTIFIERS: Name and Date of confirmedby patient verbally. FALL SCREENING: Has the patient had 2 falls in the last year or 1 fall with injury or currently using an Ambulatory Assistive Device (Walker, Cane, Wheelchair, Crutches, etc.)? Yes, Patient High Riskfor Falls What interventions were put in place to prevent falls during this visit? Increased Observations by Caregivers PATIENT GENDER DATA: Female. status: : No status: NO. PATIENT RELEVANT IMPLANT DATA REVIEWED: Not Applicable RADIOLOGY DEPARTMENT: General X-ray: Exam(s) Completed: Rib X-Ray: Right Upper Extremity X-Ray(s): Hand, left PERIPHERAL IV DATA: Not applicable SIGNED BY: RT Vernell(R) November 25, 2021 10:54 AM documented in this encounterKettering [facility] Hospital02-08-2022 Instructions* Patient Instructions* Chance Kolb MD - 10/17/2021 8:14 PM EST Stop Vitamin D for about 1 month then may resume at half the dose of the total Vitamin D that you have been taking. For example, if taking 2000 units daily, decrease to 1000 units daily. Okay to try taking Procardia (nifedipine) 6 pills per day. If effective and tolerated, let me know so can send in a new prescription with more pills. documented in this encounterKettering [facility] Hospital02-08-2022 History of Present illness Narrative* Chance Kolb MD - 10/17/2021 7:00 PM EST This note was created using Doormen.. Subjective Geraldine Hairston is a 71 year old female. Patient presents with: F/U 6 months SUBJECTIVE: Geraldine Hairston is a 71 year old year old lady here today for 6 month follow up appointment for review of medical conditions. Mother in June last year. Was in [facility]CF Parents had dementia and Dad had April 2020. Doing okay. Does hurt posteroid upper shoulder. Left knee pain when props feet up--on pillow while on couch (maybe hyper extended). Getting worse. Does not hurt to walk. Comes and goes. Noted that potassium low. Does drink a lot of water. Less than 64 ounces. Getting numbness in right hand again. What was taking had helped. Wants to try 6 pills. Healed well from lacerattion . Not sure if got tetanus shot. PAST MEDICAL HISTORY Diagnosis Date Anxiety state, unspecified Depressive disorder, not elsewhere classified GERD (gastroesophageal reflux disease) controlled with PPI; follows with Dr. Swan Hypothyroid Irritable bowel syndrome IBS; Dr. Swan--continues follow up; last colonosocpy was at least 2002, possibly 2005. Osteoporosis, unspecified Raynauds syndrome REG ENTERITIS, LG INTEST 06/06/2005 Current Outpatient Medications Medication Sig gabapentin (NEURONTIN) 600 mg tablet Take 1 tablet by mouth twice daily. NIFEdipine ER (PROCARDIA XL) 30 mg 24 hr tablet Take 5 tablets by mouth once daily. As direceted levothyroxine (SYNTHROID) 25 mcg tablet Take 1 tablet by mouth daily before breakfast. dicyclomine (BENTYL) 20 mg tablet Take 1 tablet by mouth three times daily. (Dr. Swan prescribing) budesonide, enteric coated (ENTOCORT EC) 3 mg 24 hr capsule Take 3 capsules by mouth once daily. (Dr. John Swan) omeprazole (PRILOSEC) 20 mg capsule Take 2 capsules by mouth twice daily. (Dr. Swan--GI) Calcium-Cholecalciferol, D3, (CALCIUM 600 + D) 600-125 mg-unit tab Take 1 tablet by mouth twice daily. aspirin, enteric coated (ASPIRIN, ENTERIC COATED) 325 mg EC tablet Take 1 tablet by mouth once daily. PARoxetine (PAXIL) 30 mg tablet Take 2.5 tablets by mouth once daily. (from psychiatrist) busPIRone HCl (BUSPAR) 30 mg tablet Take 1 tablet by mouth twice daily. (Gets from psychiatrist now) LORazepam 0.5 mg Tab Take 1 tablet by mouth three times daily as needed. Prescribing Dr: Keely Moore MD Cholecalciferol, Vitamin D3, (VITAMIN D) 1,000 unit ORAL Tab Take 185 mg by mouth once daily. DAILY MULTIVITAMIN TAB IMODIUM A-D 2 MG TAB take as needed (when going out) METAMUCIL SMOOTH TEXTURE PACKET one tablespoon in the am with a full glass of water and one tablespoon again in the pm again with a full glass of water daily. SALINE MIST 0.65 % NASAL SPRAY AEROSOL Two sprays each nostril twice daily. No current facility-administered medications for this visit. Review of Systems Objective Pulse 86 Wt 40.8 kg (90 lb) BMI 19.82 kg/m Physical Exam Constitutional: Appearance: Normal appearance. HENT: Head: Normocephalic. Eyes: Conjunctiva/sclera: Conjunctivae normal. Cardiovascular: Rate and Rhythm: Normal rate and regular rhythm. Heart sounds: Normal heart sounds. Pulmonary: Effort: Pulmonary effort is normal. Breath sounds: Normal breath sounds. Skin: General: Skin is warm and dry. Neurological: General: No focal deficit present. Mental Status: She is alert and oriented to person, place, and time. Psychiatric: Mood and Affect: Mood normal. Behavior: Behavior normal. Thought Content: Thought content normal. Judgment: Judgment normal. Assessment and Plan ASSESSMENT/PLAN: 1. Acquired hypothyroidism - ICD9: 244.9, ICD10: E03.9 (primary diagnosis) Clinically euthyroid. TSH fine. Continue to adjust dose of replacement as indicated based on symptoms and labs. - LEVOTHYROXINE 25 MCG TABLET 2. Shoulder pain, unspecified chronicity, unspecified laterality - ICD9: 719.41, ICD10: M25.519 Further evaluation and treatment as indicated. 3. Left knee pain, unspecified chronicity - ICD9: 719.46, ICD10: M25.562 Avoid extending leg without supporting knees; seems that pain is from hyperextension at knees when sits with legs outstretched. Further evaluation and treatment as indicated. 4. Hypokalemia - ICD9: 276.8, ICD10: E87.6 Treat as discussed to prevent severe lows. 5. Numbness of right hand - ICD9: 782.0, ICD10: R20.0 Adjust dose of med as discussed. Further evaluation and treatment as indicated. Chance Kolb MD documented in this encounterKettering Memorial HospitalDischarge summary Author Will Knapp [facility] Note Date/Time March 18, 2025 12:4 8pm [facility] Medical Records Department [address] [place] [id number] Emergency Department Summary 03/18/25 MR#: [id number] Acct: [id number] Name: GERALDINE HAIRSTON Rep #:[id number] : 1950 74 From: Will Knapp DO PCP: Dr. Chance Kolb MD Status:RE G ER Location: ED HPI History of Present Illness Chief Complaint: Lower Extremity Injury Narrative Narrative: Patient is a 74-year-old female with past medical history hypertension, hypothyroidism, depression, anxiety, GERD who presents to the emergency department chief complaint of left thigh/hip pain. Patient states that yesterday she lost her balance causing her to slide down her bathroom wall. Patient states that she did not hit her head should not pass out. States that originally she thought she bruised her leg causing her pain however felt that the pain was worsening therefore she came here for further evaluation management. Patient denies any blood thinning medications. [facility] Medical History Non-pressure chronic ulcer of left calf with fat layer exposed Traumatic open wound of lower leg Avulsion injury GERD (gastroesophageal reflux disease) HTN (hypertension) Hypothyroidism Depression Anxiety Home Medications ?Medication ?Instructions ?Recorded ?Last Taken ?Type levothyroxine 25 mcg tablet 25 mcg PO DAILY Check with primary 02/07/15 09/29/16 09:00 History doctor Bacillus coagulans-inulin 1 1 ea PO DAILY Check with p skye 12/07/15 09/29/16 09:00 History billion cell-250 mg capsule doctor (Probiotic Formula (inulin)) gabapentin 100 mg capsule 600 mg PO BID Check with [facility] 12/07/15 09/29/16 21:00 History doctor nifedipine 60 mg tablet,extended 180 mg PO DAILY Check with primary 12/07/15 09/29/16 09:00 History release 24 hr doctor pantoprazole 20 mg tablet,delayed 20 mg PO DAILY [facility] 12/07/15 09/29/16 09:00 History release paroxetine HCl 25 mg 75 mg PO DAILY depression 09/29/16 09:00 History tablet,extended release 24 hr (Paxil CR) aspirin 325 mg tablet,delayed 325 mg PO DAILY HEART 09/29/16 09:00 History release buspirone 5 mg tablet 30 mg PO BID Check with prim les[facility] 04/26/16 09/29/16 21:00 History doctor budesonide 3 mg 9 mg PO DAILY Check with [facility] 09/30/16 Unknown History capsule,delayed,extended release doctor (Entocort EC) lorazepam 0.5 mg tablet 0.5 mg PO Q6H PRN PRN Anxiet y ##10 10/03/16 Unknown Rx dicyclomine 20 mg tablet 20 mg PO TID Check with prim lesley 09/02/22 Unknown History doctor Metamucil Check with primary doctor Unknown History food supplemt, lactose-reduced 120 ml PO 4X/DAY Check with 09/07/22 Unknown History 0.08 gram-1.5 kcal/mL oral liquid primary doctor (Ensure Enlive) loperamide 2 mg tablet 2 mg PO Q6H PRN Constipation 09/07/22 Unknown History omeprazole 40 mg PO/SL DAILY Check with 09/07/22 Unknown History primary doctor atorvastatin 80 mg tablet 20 mg (1/4 x 80 mg) PO QHS # 30 tabs 09/08/22 Unknown Rx cyclobenzaprine 5 mg tablet 5 mg PO TID PRN muscle spa sm #14 03/18/25 Unknown Rx tabs ondansetron 4 mg disintegrating 4 mg PO Q6H PRN nausea and 03/18/25 Unknown Rx tablet vomiting #20 tabs oxycodone-acetaminophen 5 mg-325 1 tab PO Q6H PRN pain 2 days #8 03/18/25 Unknown Rx mg tablet (Endocet) tabs Allergy/AdvReac Type Severity Reaction Status Date / Time acetaminophen (From Percocet) Allergy Other Verified 03/13/25 19:15 oxycodone (From Percocet) Allergy Other Verified 03/13/25 19:15 codeine AdvReac Nausea & Verified 03/13/25 19:15 dizziness oxycodone HCl (From Percocet) AdvReac Nausea & Verified 03/13/25 19:15 dizziness Family History Father Diabetes Dementia Surgical History S/P ORIF (open reduction internal fixation) fracture History of surgery on wrist History of cataract surgery History of ankle surgery Social History household members: none Smoking Status: Never smoker substance use type: does not use ROS ROS ED ROS Narrative Constitutional: Denies any headaches Eyes: Denies double vision blurry vision Cardiovascular: Denies chest pain Respiratory: Denies coughing wheezing shortness of breath Abdomen: Denies nausea vomiting : Denies any urinary symptoms Neurological: Denies any numbness, wheeze, tingling Musculoskeletal: Complains of left hip, thigh and low back pain Skin: Complains of bruising to the left thigh EXAM Physical Exam Narrative Exam Narrative: General: Patient is lying in bed rest comfortably do not appear to be acute distress Head: Atraumatic, normocephalic Eyes: PERRL bilaterally, EOMI blood, no conjunctival injection noted, no Tineo sign no raccoon eyes Neck: Soft, supple, trachea midline, no tenderness palpation midline cervical spine Cardiovascular: Regular rate and rhythm Respiratory: Clear to auscultation bilaterally Abdomen: Soft, nondistended, nontender to palpation Musculoskeletal: No tenderness palpation midline of thoracic spine, patient is tenderness palpation at the L5 level no step-offs or deformities noted, patient does have full range of motion of her hip however she states that she does have mild pain associated with this, mild tenderness palpation over the left femur Extremities: Radial pulses +2/4 in the bilateral extremities, +4/5 strength noted in the bilateral upper and lower extremities Neurological: Patient following commands and that she was at [facility] year is 2024 Skin: Warm, dry, intact no rashes noted patient does have some ecchymosis noted over the lateral left thigh Const Vital Signs: 03/18/25 09:23 Temperature 98 F Temperature Source Temporal Pulse Rate 81 Respiratory Rate 14 Blood Pressure 117/59 L Blood Pressure Mean 78 Pulse Ox 94 Oxygen Delivery Method Room Air MDM MDM MDM Narrative Medical decision making narrative: Patient is a 74-year-old female who presented to the emergency department the chief complaint of fall yesterday with left lower extremity/thigh pain and low back pain. On the differential diagnosis includes but not limited to compression fracture, hip fracture, femur fracture. Once workup is obtained reviewed she will be reevaluated. Patient femur x-ray reviewed by myself by radiology showed no acute fracture or dislocation. Patient's pelvis x-ray reviewed by myself by radiology showed no acute fracture or dislocation. Patient CT lumbar spine showed a nondisplaced compression fracture along the anterior superior endplate of the L4 vertebrae consistent where she is tender. Called and spoke with on-call orthopedic surgeon Dr. Brito who states that he can follow-up with her in the outpatient setting. Pain control. Patient ambulated here in the emergency department multiple times without difficulty she remains neurovascularly intact. She is agreeable with this plan as well as significant other at bedside. She was given prescriptions for Endocet and Zofran for severe pain otherwise she is to rotate Tylenol and ibuprofen [id number] she also began prescription for cyclobenzaprine. Allquestion concerns answered she was discharged home in stable condition peer Radiography Diagnostic Testing: Clinical Impression(s) from Imaging Studies Pelvis X-Ray 03/18/25 10:03 IMPRESSION: No acute fracture is seen. Reading Location: [facility]-[address] 03/18/25 10:10 IMPRESSION: LUMBAR DEGENERATIVE DISC AND FACET DISEASE. Nondisplaced compression fracture along the anterior superior endplate of the [id number]. Reading Location: [facility] Femur X-Ray 03/18/25 10:20 IMPRESSION: NO ACUTE FRACTURE OR DISLOCATION. Reading Location: [facility]- Discharge Plan Triage Chief Complaint: Lower Extremity Injury ED Provider: Will Knapp Dx/Rx/DC Orders Clinical Impression: Fall, Anxiety, HTN (hypertension), Compression fracture, Left leg pain Prescriptions: New ondansetron 4 mg tablet,disintegrating 4 mg PO Q6H PRN (Reason: nausea and vomiting) Qty: 20 0RF cyclobenzaprine 5 mg tablet 5 mg PO TID PRN (Reason: muscle spasm) Qty: 14 0RF oxycodone-acetaminophen [Endocet] 5-325 mg tablet 1 tab PO Q6H PRN (Reason: pain) 2 Days Qty: 8 0RF No Action levothyroxine 25 MCG tablet 25 mcg PO DAILY Patient Comments: thyroid pantoprazole 20 MG tablet 20 mg PO DAILY Patient Comments: acid reflux nifedipine 60 MG tablet 180 mg PO DAILY Patient Comments: heart rate gabapentin 100 MG capsule 600 mg PO BID Patient Comments: nerve pain Probiotic Formula (inulin) 1 EACH capsule 1 ea PO DAILY Patient Comments: stomach; treat IBS paroxetine HCl [Paxil CR] 25 MG tablet extended release 24 hr 75 mg PO DAILY Patient Comments: Treat major depressive disorder buspirone 5 MG tablet 30 mg PO BID aspirin 325 MG tablet 325 mg PO DAILY Patient Comments: blood thinner budesonide [Entocort EC] 3 MG capsule,delayed,extend.release 9 mg PO DAILY lorazepam 0.5 MG tablet 0.5 mg PO Q6H PRN PRN (Reason: Anxiety) Qty: 10 0RF dicyclomine 20 mg tablet 20 mg PO TID Ensure Enlive 120 ML liquid 120 ml PO 4X/DAY omeprazole 40 mg capsule 40 mg PO/SL DAILY loperamide 2 mg Tablet 2 mg PO Q6H PRN (Reason: Constipation) Metamucil atorvastatin 80 mg Tablet 20 mg PO QHS Qty: 30 0RF Primary Care Provider: Chance Kolb Referrals: Chance Kolb MD [Primary Care Provider] - Activity Restrictions/Additional Instructions: Use prescriptions as prescribed use the Endocet and Zofran for severe pain and sure that you use the Zofran with the Endocet as this will upset your stomach. For mild to moderate pain you should rotate Tylenol and ibuprofen [id number] when you do this you can take something every 3 hours with max dose of Tylenol in 24 hours 3200 mg. You need to follow-up with Dr. Brito. Your CT didshow a compression fracture of your L4 vertebrae. Return with worsening symptoms or other concerns Print Language: Dutch Disposition Disposition: Home, Self Care What to do if you have Problems For any increased pain, shortness of breath, bleeding, nausea or vomiting, chestpain, or any unexpected problems, contact your Primary Care Provider. Call [facility] ([phone]) or report to the closest Emergency Room. Call 911 if necessary. 03/18/25 1248 <Electronically signed by Will Knapp DO> Cosigner Signature (if applicable): CC: Dr. Chance Kolb MD ~ Signed [facility] Work Phone: Evaluation note* Diagnosis Closed nondisplaced fracture of neck of fifth metacarpal bone of left hand, initial encounter- Primary documented in this encounter [facility] note* Diagnosis Closed nondisplaced fracture of neck of fifth metacarpal bone of left hand with routine healing, subsequent encounter- [facility] Diagnosis Closed nondisplaced fracture of neck of fifth metacarpal bone of left hand, initial encounter [facility] Diagnosis Acquired hypothyroidism- Primary Unspecified hypothyroidism Shoulder pain, unspecified chronicity, unspecified laterality Left knee pain, unspecified chronicity Hypokalemia Hypopotassemia Numbness of right hand documented [facility] this [facility] Diagnosis Exposure to COVID-19 virus- Primary [facility] this [facility] Diagnosis APPOINTMENT CANCELLED- Primary Contact with and (suspected) exposure to covid-19 documented in this [facility] Diagnosis Encounter for gynecological examination (general) (routine) without abnormal findings- Primary Encounter for screening mammogram for breast cancer Age-related osteoporosis without current pathological fracture Senile osteoporosis documented in this encounter [facility] note* Diagnosis Encounter for screening mammogram for breast cancer documented [facility] this [facility] Diagnosis Age-related osteoporosis without current pathological fracture Senile osteoporosis documented in this encounter [facility] note* Diagnosis Acquired hypothyroidism- Primary Unspecified hypothyroidism Hypokalemia Hypopotassemia Raynaud's disease without gangrene Hypercholesteremia Pure hypercholesterolemia Crohn's disease of large intestine without complication (HCC) Regional enteritis of large intestine Encounter for long-term current use of medication Age-related osteoporosis without current pathological fracture Senile osteoporosis Vitamin D deficiency Unspecified vitamin D deficiency High vitamin D level Hypervitaminosis D Fatigue, unspecified type Chronic cough Cough Urinary frequency Gastroesophageal reflux disease without esophagitis Esophageal reflux documented in this encounter [facility] noteNo assessment information [facility]* Diagnosis Onset Date Resolution Status Acute confusion acute Slurred speech acute Weakness acute [facility] Work Phone: Evaluation note* Diagnosis Onset Date Resolution Status Acute confusion acute Hypokalemia acute Slurred speech acute Toxic metabolic encephalopathy acute Weakness acute [facility] Work Phone: Evaluation note* Diagnosis Urinary tract infection without hematuria, site unspecified- Primary documented in this encounter [facility] note* Diagnosis Acute cystitis with hematuria- Primary Acute cystitis documented in this encounter [facility] note* Diagnosis Acute cystitis with hematuria- Primary Acute cystitis documented in this encounter [facility] note* Diagnosis Acquired hypothyroidism Unspecified hypothyroidism Raynaud's disease without gangrene documented in this encounter [facility] Diagnosis Numbness and tingling in right hand Disturbance of skin sensation documented in this encounter [facility] Diagnosis Closed fracture of multiple ribs of right side with routine healing, subsequent encounter- Primary Chronic right shoulder pain Pain in joint, shoulder region documented in this encounter [facility] note* Diagnosis Acquired hypothyroidism- Primary Unspecified hypothyroidism Hypercholesteremia Pure hypercholesterolemia Rib pain on right side Chest pain, unspecified Chronic right shoulder pain Pain in joint, shoulder region Vitamin D deficiency Unspecified vitamin D deficiency Long-term current use of mesalamine Encounter for long-term current use of medication documented in this [facility] Diagnosis Encounter for screening mammogram for breast cancer- Primary documented in this encounter [facility] note* Diagnosis Nodule of finger of right hand- Primary Thumb joint locking Unspecified derangement of hand joint Other headache syndrome Gastroesophageal reflux disease without esophagitis Esophageal reflux Raynaud's disease without gangrene documented in this encounter [facility]* Diagnosis Abrasion- Primary Abrasion or friction burn of other, multiple, and unspecified sites, without mention of infection Visit for suture removal Encounter for removal of sutures documented in this encounter [facility] note* Diagnosis Encounter for screening mammogram for breast cancer documented in this encounter [facility] note* Diagnosis Acquired hypothyroidism- Primary Unspecified hypothyroidism Numbness and tingling in right hand Disturbance of skin sensation Raynaud's disease without gangrene Gastroesophageal reflux disease without esophagitis Esophageal reflux Vitamin D deficiency Unspecified vitamin D deficiency Hypercholesteremia Pure hypercholesterolemia Crohn's disease of large intestine without complication (HCC) Regional enteritis of large intestine Encounter for long-term current use of medication documented in this encounter [facility] note* Diagnosis Urinary tract infection without hematuria, site unspecified- Primary documented in this encounter [facility] note* Diagnosis Right hand pain- Primary Pain in soft tissues of limb [facility] Diagnosis Mass of finger of right hand Localized superficial swelling, mass, or lump Rupture of flexor pollicis longus muscle [facility] Diagnosis Mass of finger of right hand Localized superficial swelling, mass, or lump Rupture of flexor pollicis longus muscle [facility] Diagnosis Mass of finger of right hand Localized superficial swelling, mass, or lump Rupture of flexor pollicis longus muscle [facility]* Diagnosis Rupture of flexor pollicis longus muscle Retained orthopedic hardware [facility] Diagnosis Acute bilateral low back pain without sciatica- Primary Age-related osteoporosis without current pathological fracture Senile osteoporosis Gastroesophageal reflux disease without esophagitis Esophageal reflux Crohn's disease of large intestine without complication (HCC) Regional enteritis of large intestine Acquired hypothyroidism Unspecified hypothyroidism Depression, unspecified depression type Anxiety Anxiety state, unspecified Encounter for screening mammogram for breast cancer documented in this encounter [facility] note* Diagnosis Rupture of flexor pollicis longus muscle- Primary Retained orthopedic hardware Mass of finger of right hand Localized superficial swelling, mass, or lump documented in this encounter [facility]* Diagnosis Encounter for screening mammogram for breast cancer documented in this encounter [facility] note* Diagnosis GERD (gastroesophageal reflux disease)- Primary Esophageal reflux Asymptomatic postmenopausal status (age-related) (natural) Other osteoporosis Vitamin D deficiency Unspecified vitamin D deficiency Need for prophylactic vaccination against Streptococcus pneumoniae (pneumococcus) Need for prophylactic vaccination against streptococcus pneumoniae (pneumococcus) REG ENTERITIS, LG INTEST Regional enteritis of large intestine OSTEOPOROSIS NOS Osteoporosis, unspecified ANXIETY STATE NOS Anxiety state, unspecified DEPRESSIVE DISORDER NEC- Primary Depressive disorder, not elsewhere classified ANXIETY STATE NOS Anxiety state, unspecified OSTEOPOROSIS NOS Osteoporosis, unspecified IRRITABLE COLON Irritable bowel syndrome GERD (gastroesophageal reflux disease) Esophageal reflux Cervicalgia- Primary Acute intractable headache, unspecified headache type Acute intractable tension-type headache documented in this encounter [facility] note* Diagnosis GERD (gastroesophageal reflux disease)- Primary Esophageal reflux Asymptomatic postmenopausal status (age-related) (natural) Other osteoporosis Vitamin D deficiency Unspecified vitamin D deficiency Need for prophylactic vaccination against Streptococcus pneumoniae (pneumococcus) Need for prophylactic vaccination against streptococcus pneumoniae (pneumococcus) REG ENTERITIS, LG INTEST Regional enteritis of large intestine OSTEOPOROSIS NOS Osteoporosis, unspecified ANXIETY STATE NOS Anxiety state, unspecified DEPRESSIVE DISORDER NEC- Primary Depressive disorder, not elsewhere classified ANXIETY STATE NOS Anxiety state, unspecified OSTEOPOROSIS NOS Osteoporosis, unspecified IRRITABLE COLON Irritable bowel syndrome GERD (gastroesophageal reflux disease) Esophageal reflux Acute bilateral low back pain without sciatica documented in this encounter [facility] note* Diagnosis GERD (gastroesophageal reflux disease)- Primary Esophageal reflux Asymptomatic postmenopausal status (age-related) (natural) Other osteoporosis Vitamin D deficiency Unspecified vitamin D deficiency Need for prophylactic vaccination against Streptococcus pneumoniae (pneumococcus) Need for prophylactic vaccination against streptococcus pneumoniae (pneumococcus) REG ENTERITIS, LG INTEST Regional enteritis of large intestine OSTEOPOROSIS NOS Osteoporosis, unspecified ANXIETY STATE NOS Anxiety state, unspecified DEPRESSIVE DISORDER NEC- Primary Depressive disorder, not elsewhere classified ANXIETY STATE NOS Anxiety state, unspecified OSTEOPOROSIS NOS Osteoporosis, unspecified IRRITABLE COLON Irritable bowel syndrome GERD (gastroesophageal reflux disease) Esophageal reflux Fall from bed, initial encounter Rib injury Sprain of ribs Rib pain on right side Chest pain, unspecified documented in this encounter [facility]* Diagnosis GERD (gastroesophageal reflux disease)- Primary Esophageal reflux Asymptomatic postmenopausal status (age-related) (natural) Other osteoporosis Vitamin D deficiency Unspecified vitamin D deficiency Need for prophylactic vaccination against Streptococcus pneumoniae (pneumococcus) Need for prophylactic vaccination against streptococcus pneumoniae (pneumococcus) REG ENTERITIS, LG INTEST Regional enteritis of large intestine OSTEOPOROSIS NOS Osteoporosis, unspecified ANXIETY STATE NOS Anxiety state, unspecified DEPRESSIVE DISORDER NEC- Primary Depressive disorder, not elsewhere classified ANXIETY STATE NOS Anxiety state, unspecified OSTEOPOROSIS NOS Osteoporosis, unspecified IRRITABLE COLON Irritable bowel syndrome GERD (gastroesophageal reflux disease) Esophageal reflux Rib pain on right side Chest pain, unspecified documented in this encounter [facility] note* Diagnosis GERD (gastroesophageal reflux disease)- Primary Esophageal reflux Asymptomatic postmenopausal status (age-related) (natural) Other osteoporosis Vitamin D deficiency Unspecified vitamin D deficiency Need for prophylactic vaccination against Streptococcus pneumoniae (pneumococcus) Need for prophylactic vaccination against streptococcus pneumoniae (pneumococcus) REG ENTERITIS, LG INTEST Regional enteritis of large intestine OSTEOPOROSIS NOS Osteoporosis, unspecified ANXIETY STATE NOS Anxiety state, unspecified DEPRESSIVE DISORDER NEC- Primary Depressive disorder, not elsewhere classified ANXIETY STATE NOS Anxiety state, unspecified OSTEOPOROSIS NOS Osteoporosis, unspecified IRRITABLE COLON Irritable bowel syndrome GERD (gastroesophageal reflux disease) Esophageal reflux Acute cough documented in this encounter [facility] note* Diagnosis GERD (gastroesophageal reflux disease)- Primary Esophageal reflux Asymptomatic postmenopausal status (age-related) (natural) Other osteoporosis Vitamin D deficiency Unspecified vitamin D deficiency Need for prophylactic vaccination against Streptococcus pneumoniae (pneumococcus) Need for prophylactic vaccination against streptococcus pneumoniae (pneumococcus) REG ENTERITIS, LG INTEST Regional enteritis of large intestine OSTEOPOROSIS NOS Osteoporosis, unspecified ANXIETY STATE NOS Anxiety state, unspecified DEPRESSIVE DISORDER NEC- Primary Depressive disorder, not elsewhere classified ANXIETY STATE NOS Anxiety state, unspecified OSTEOPOROSIS NOS Osteoporosis, unspecified IRRITABLE COLON Irritable bowel syndrome GERD (gastroesophageal reflux disease) Esophageal reflux Chronic cough Cough documented in this encounter [facility] note* Diagnosis GERD (gastroesophageal reflux disease)- Primary Esophageal reflux Asymptomatic postmenopausal status (age-related) (natural) Other osteoporosis Vitamin D deficiency Unspecified vitamin D deficiency Need for prophylactic vaccination against Streptococcus pneumoniae (pneumococcus) Need for prophylactic vaccination against streptococcus pneumoniae (pneumococcus) REG ENTERITIS, LG INTEST Regional enteritis of large intestine OSTEOPOROSIS NOS Osteoporosis, unspecified ANXIETY STATE NOS Anxiety state, unspecified DEPRESSIVE DISORDER NEC- Primary Depressive disorder, not elsewhere classified ANXIETY STATE NOS Anxiety state, unspecified OSTEOPOROSIS NOS Osteoporosis, unspecified IRRITABLE COLON Irritable bowel syndrome GERD (gastroesophageal reflux disease) Esophageal reflux Fall, initial encounter Rib pain on right side Chest pain, unspecified Left hand pain Pain in limb documented [facility] this encounter [facility] Diagnosis GERD (gastroesophageal reflux disease)- Primary Esophageal reflux Asymptomatic postmenopausal status (age-related) (natural) Other osteoporosis Vitamin D deficiency Unspecified vitamin D deficiency Need for prophylactic vaccination against Streptococcus pneumoniae (pneumococcus) Need for prophylactic vaccination against streptococcus pneumoniae (pneumococcus) REG ENTERITIS, LG INTEST Regional enteritis of large intestine OSTEOPOROSIS NOS Osteoporosis, unspecified ANXIETY STATE NOS Anxiety state, unspecified DEPRESSIVE DISORDER NEC- Primary Depressive disorder, not elsewhere classified ANXIETY STATE NOS Anxiety state, unspecified OSTEOPOROSIS NOS Osteoporosis, unspecified IRRITABLE COLON Irritable bowel syndrome GERD (gastroesophageal reflux disease) Esophageal reflux Gait instability- Primary Abnormality of gait documented in this encounter [facility] note* Diagnosis GERD (gastroesophageal reflux disease)- Primary Esophageal reflux Asymptomatic postmenopausal status (age-related) (natural) Other osteoporosis Vitamin D deficiency Unspecified vitamin D deficiency Need for prophylactic vaccination against Streptococcus pneumoniae (pneumococcus) Need for prophylactic vaccination against streptococcus pneumoniae (pneumococcus) REG ENTERITIS, LG INTEST Regional enteritis of large intestine OSTEOPOROSIS NOS Osteoporosis, unspecified ANXIETY STATE NOS Anxiety state, unspecified DEPRESSIVE DISORDER NEC- Primary Depressive disorder, not elsewhere classified ANXIETY STATE NOS Anxiety state, unspecified OSTEOPOROSIS NOS Osteoporosis, unspecified IRRITABLE COLON Irritable bowel syndrome GERD (gastroesophageal reflux disease) Esophageal reflux Dysuria- Primary Urinary tract infection with hematuria, site unspecified documented in this encounter [facility] note* Diagnosis GERD (gastroesophageal reflux disease)- Primary Esophageal reflux Asymptomatic postmenopausal status (age-related) (natural) Other osteoporosis Vitamin D deficiency Unspecified vitamin D deficiency Need for prophylactic vaccination against Streptococcus pneumoniae (pneumococcus) Need for prophylactic vaccination against streptococcus pneumoniae (pneumococcus) REG ENTERITIS, LG INTEST Regional enteritis of large intestine OSTEOPOROSIS NOS Osteoporosis, unspecified ANXIETY STATE NOS Anxiety state, unspecified DEPRESSIVE DISORDER NEC- Primary Depressive disorder, not elsewhere classified ANXIETY STATE NOS Anxiety state, unspecified OSTEOPOROSIS NOS Osteoporosis, unspecified IRRITABLE COLON Irritable bowel syndrome GERD (gastroesophageal reflux disease) Esophageal reflux Urinary tract infection with hematuria, site unspecified- Primary documented in this encounter [facility] note* Diagnosis GERD (gastroesophageal reflux disease)- Primary Esophageal reflux Asymptomatic postmenopausal status (age-related) (natural) Other osteoporosis Vitamin D deficiency Unspecified vitamin D deficiency Need for prophylactic vaccination against Streptococcus pneumoniae (pneumococcus) Need for prophylactic vaccination against streptococcus pneumoniae (pneumococcus) REG ENTERITIS, LG INTEST Regional enteritis of large intestine OSTEOPOROSIS NOS Osteoporosis, unspecified ANXIETY STATE NOS Anxiety state, unspecified DEPRESSIVE DISORDER NEC- Primary Depressive disorder, not elsewhere classified ANXIETY STATE NOS Anxiety state, unspecified OSTEOPOROSIS NOS Osteoporosis, unspecified IRRITABLE COLON Irritable bowel syndrome GERD (gastroesophageal reflux disease) Esophageal reflux Gait instability- Primary Abnormality of gait documented in this encounter [facility] note* Diagnosis GERD (gastroesophageal reflux disease)- Primary Esophageal reflux Asymptomatic postmenopausal status (age-related) (natural) Other osteoporosis Vitamin D deficiency Unspecified vitamin D deficiency Need for prophylactic vaccination against Streptococcus pneumoniae (pneumococcus) Need for prophylactic vaccination against streptococcus pneumoniae (pneumococcus) REG ENTERITIS, LG INTEST Regional enteritis of large intestine OSTEOPOROSIS NOS Osteoporosis, unspecified ANXIETY STATE NOS Anxiety state, unspecified DEPRESSIVE DISORDER NEC- Primary Depressive disorder, not elsewhere classified ANXIETY STATE NOS Anxiety state, unspecified OSTEOPOROSIS NOS Osteoporosis, unspecified IRRITABLE COLON Irritable bowel syndrome GERD (gastroesophageal reflux disease) Esophageal reflux Chronic midline low back pain without sciatica- Primary Age-related osteoporosis without current pathological fracture Senile 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 Lumbar spondylosis Lumbosacral spondylosis without myelopathy Asymptomatic postmenopausal status Gait instability Abnormality of gait Crohn's disease of large intestine without complication (HCC) Regional enteritis of large intestine Numbness and tingling in right hand Disturbance of skin sensation Acquired hypothyroidism Unspecified hypothyroidism Raynaud's disease without gangrene Vitamin D deficiency Unspecified vitamin D deficiency Crohn's disease without complication, unspecified gastrointestinal tract location (HCC) Essential (primary) hypertension Unspecified essential hypertension Hypercholesteremia Pure hypercholesterolemia Encounter for immunization Need for other specified prophylactic vaccination against single bacterial disease Encounter for long-term current use of medication [facility] Diagnosis GERD (gastroesophageal reflux disease)- Primary Esophageal reflux Asymptomatic postmenopausal status (age-related) (natural) Other osteoporosis Vitamin D deficiency Unspecified vitamin D deficiency Need for prophylactic vaccination against Streptococcus pneumoniae (pneumococcus) Need for prophylactic vaccination against streptococcus pneumoniae (pneumococcus) REG ENTERITIS, LG INTEST Regional enteritis of large intestine OSTEOPOROSIS NOS Osteoporosis, unspecified ANXIETY STATE NOS Anxiety state, unspecified DEPRESSIVE DISORDER NEC- Primary Depressive disorder, not elsewhere classified ANXIETY STATE NOS Anxiety state, unspecified OSTEOPOROSIS NOS Osteoporosis, unspecified IRRITABLE COLON Irritable bowel syndrome GERD (gastroesophageal reflux disease) Esophageal reflux Gait instability- Primary Abnormality of gait documented in this encounter [facility] Diagnosis GERD (gastroesophageal reflux disease)- Primary Esophageal reflux Asymptomatic postmenopausal status (age-related) (natural) Other osteoporosis Vitamin D deficiency Unspecified vitamin D deficiency Need for prophylactic vaccination against Streptococcus pneumoniae (pneumococcus) Need for prophylactic vaccination against streptococcus pneumoniae (pneumococcus) REG ENTERITIS, LG INTEST Regional enteritis of large intestine OSTEOPOROSIS NOS Osteoporosis, unspecified ANXIETY STATE NOS Anxiety state, unspecified DEPRESSIVE DISORDER NEC- Primary Depressive disorder, not elsewhere classified ANXIETY STATE NOS Anxiety state, unspecified OSTEOPOROSIS NOS Osteoporosis, unspecified IRRITABLE COLON Irritable bowel syndrome GERD (gastroesophageal reflux disease) Esophageal reflux Urinary tract infection with hematuria, site unspecified documented in this encounter [facility]* Diagnosis GERD (gastroesophageal reflux disease)- Primary Esophageal reflux Asymptomatic postmenopausal status (age-related) (natural) Other osteoporosis Vitamin D deficiency Unspecified vitamin D deficiency Need for prophylactic vaccination against Streptococcus pneumoniae (pneumococcus) Need for prophylactic vaccination against streptococcus pneumoniae (pneumococcus) REG ENTERITIS, LG INTEST Regional enteritis of large intestine OSTEOPOROSIS NOS Osteoporosis, unspecified ANXIETY STATE NOS Anxiety state, unspecified DEPRESSIVE DISORDER NEC- Primary Depressive disorder, not elsewhere classified ANXIETY STATE NOS Anxiety state, unspecified OSTEOPOROSIS NOS Osteoporosis, unspecified IRRITABLE COLON Irritable bowel syndrome GERD (gastroesophageal reflux disease) Esophageal reflux Gait instability- Primary Abnormality of gait documented in this encounter [facility] note* Diagnosis GERD (gastroesophageal reflux disease)- Primary Esophageal reflux Asymptomatic postmenopausal status (age-related) (natural) Other osteoporosis Vitamin D deficiency Unspecified vitamin D deficiency Need for prophylactic vaccination against Streptococcus pneumoniae (pneumococcus) Need for prophylactic vaccination against streptococcus pneumoniae (pneumococcus) REG ENTERITIS, LG INTEST Regional enteritis of large intestine OSTEOPOROSIS NOS Osteoporosis, unspecified ANXIETY STATE NOS Anxiety state, unspecified DEPRESSIVE DISORDER NEC- Primary Depressive disorder, not elsewhere classified ANXIETY STATE NOS Anxiety state, unspecified OSTEOPOROSIS NOS Osteoporosis, unspecified IRRITABLE COLON Irritable bowel syndrome GERD (gastroesophageal reflux disease) Esophageal reflux Asymptomatic postmenopausal status documented in this encounter [facility] note* Diagnosis GERD (gastroesophageal reflux disease)- Primary Esophageal reflux Asymptomatic postmenopausal status (age-related) (natural) Other osteoporosis Vitamin D deficiency Unspecified vitamin D deficiency Need for prophylactic vaccination against Streptococcus pneumoniae (pneumococcus) Need for prophylactic vaccination against streptococcus pneumoniae (pneumococcus) REG ENTERITIS, LG INTEST Regional enteritis of large intestine OSTEOPOROSIS NOS Osteoporosis, unspecified ANXIETY STATE NOS Anxiety state, unspecified DEPRESSIVE DISORDER NEC- Primary Depressive disorder, not elsewhere classified ANXIETY STATE NOS Anxiety state, unspecified OSTEOPOROSIS NOS Osteoporosis, unspecified IRRITABLE COLON Irritable bowel syndrome GERD (gastroesophageal reflux disease) Esophageal reflux UTI symptoms- Primary Other symptoms involving urinary system documented in this encounter [facility] note* Diagnosis GERD (gastroesophageal reflux disease)- Primary Esophageal reflux Asymptomatic postmenopausal status (age-related) (natural) Other osteoporosis Vitamin D deficiency Unspecified vitamin D deficiency Need for prophylactic vaccination against Streptococcus pneumoniae (pneumococcus) Need for prophylactic vaccination against streptococcus pneumoniae (pneumococcus) REG ENTERITIS, LG INTEST Regional enteritis of large intestine OSTEOPOROSIS NOS Osteoporosis, unspecified ANXIETY STATE NOS Anxiety state, unspecified DEPRESSIVE DISORDER NEC- Primary Depressive disorder, not elsewhere classified ANXIETY STATE NOS Anxiety state, unspecified OSTEOPOROSIS NOS Osteoporosis, unspecified IRRITABLE COLON Irritable bowel syndrome GERD (gastroesophageal reflux disease) Esophageal reflux Numbness and tingling in right hand Disturbance of skin sensation Acquired hypothyroidism Unspecified hypothyroidism Raynaud's disease without gangrene documented in this encounter [facility] note* Diagnosis GERD (gastroesophageal reflux disease)- Primary Esophageal reflux Asymptomatic postmenopausal status (age-related) (natural) Other osteoporosis Vitamin D deficiency Unspecified vitamin D deficiency Need for prophylactic vaccination against Streptococcus pneumoniae (pneumococcus) Need for prophylactic vaccination against streptococcus pneumoniae (pneumococcus) REG ENTERITIS, LG INTEST Regional enteritis of large intestine OSTEOPOROSIS NOS Osteoporosis, unspecified ANXIETY STATE NOS Anxiety state, unspecified DEPRESSIVE DISORDER NEC- Primary Depressive disorder, not elsewhere classified ANXIETY STATE NOS Anxiety state, unspecified OSTEOPOROSIS NOS Osteoporosis, unspecified IRRITABLE COLON Irritable bowel syndrome GERD (gastroesophageal reflux disease) Esophageal reflux Laceration of lower extremity, unspecified laterality, subsequent encounter- Primary Visit for suture removal Encounter for removal of sutures Fall, subsequent encounter Acute pain of left hip Compression fracture of L4 vertebra with routine healing, subsequent encounter Age-related osteoporosis without current pathological fracture Senile osteoporosis [facility] Diagnosis GERD (gastroesophageal reflux disease)- Primary Esophageal reflux Asymptomatic postmenopausal status (age-related) (natural) Other osteoporosis Vitamin D deficiency Unspecified vitamin D deficiency Need for prophylactic vaccination against Streptococcus pneumoniae (pneumococcus) Need for prophylactic vaccination against streptococcus pneumoniae (pneumococcus) REG ENTERITIS, LG INTEST Regional enteritis of large intestine OSTEOPOROSIS NOS Osteoporosis, unspecified ANXIETY STATE NOS Anxiety state, unspecified DEPRESSIVE DISORDER NEC- Primary Depressive disorder, not elsewhere classified ANXIETY STATE NOS Anxiety state, unspecified OSTEOPOROSIS NOS Osteoporosis, unspecified IRRITABLE COLON Irritable bowel syndrome GERD (gastroesophageal reflux disease) Esophageal reflux Medicare annual wellness visit, subsequent- Primary Routine general medical examination at a health care facility Osteoporosis, unspecified osteoporosis type, unspecified pathological fracture presence Crohn's disease without complication, unspecified gastrointestinal tract location (HCC) Screening for colon cancer Special screening for malignant neoplasms, colon Encounter for immunization Need for other specified prophylactic vaccination against single bacterial disease Encounter for screening mammogram for malignant neoplasm of breast Other screening mammogram Other abnormal glucose documented in this encounter [facility] note* Diagnosis GERD (gastroesophageal reflux disease)- Primary Esophageal reflux Asymptomatic postmenopausal status (age-related) (natural) Other osteoporosis Vitamin D deficiency Unspecified vitamin D deficiency Need for prophylactic vaccination against Streptococcus pneumoniae (pneumococcus) Need for prophylactic vaccination against streptococcus pneumoniae (pneumococcus) REG ENTERITIS, LG INTEST Regional enteritis of large intestine OSTEOPOROSIS NOS Osteoporosis, unspecified ANXIETY STATE NOS Anxiety state, unspecified DEPRESSIVE DISORDER NEC- Primary Depressive disorder, not elsewhere classified ANXIETY STATE NOS Anxiety state, unspecified OSTEOPOROSIS NOS Osteoporosis, unspecified IRRITABLE COLON Irritable bowel syndrome GERD (gastroesophageal reflux disease) Esophageal reflux Encounter for screening mammogram for malignant neoplasm of breast Other screening mammogram documented [facility] Discharge instructionsAdditional Instructions Use prescriptions as prescribed use the Endocet and Zofran for severe pain and sure that you use the Zofran with the Endocet as this will upset your stomach. For mild to moderate pain you should rotate Tylenol and ibuprofen xeatuo-dbn-lwgre when you do this you can take something every 3 hours with max dose of Tylenol in 24 hours 3200 mg. You need to follow-up with Dr. Brito. Your CT did show a compression fracture of your L4 vertebrae. Return with worsening symptoms or other [facility] Phone: Reason for referral (narrative)* Diagnostic Procedure Only (Routine) - Pending Review Specialty Diagnoses / Procedures Referred By Faisal alvarado Referred To Contact XR IMAGING Diagnoses Closed nondisplaced fracture of neck of fifth metacarpal bone of left hand, initial encounter Procedures XR HAND GENERAL 3V PA/LAT/OBL LEFT RADEX HAND MINIMUM 3 VIEWS Jersey Stern V, DO [address] [place] [address] Xr Imaging Referral ID Status Reason Start Date Expiration Date Visits Requested Visits Authorized [id number] Pending Review Auto-Generat ed Referral 12/27/2021 01/26/2023 1 1 [facility] for referral (narrative)* Diagnostic Procedure Only (Routine) - Closed Specialty Diagnoses / Procedures Referred By Faisal alvarado Referred To Contact XR IMAGING Diagnoses Closed nondisplaced fracture of neck of fifth metacarpal bone of left hand, initial encounter Procedures XR HAND GENERAL 3V PA/LAT/OBL LEFT RADEX HAND MINIMUM 3 VIEWS Jersey Stern V DO [address] [place] [address] Xr Imaging Referral ID Status Reason Start Date Expiration Date V isits Requested Visits Authorized [id number] Closed Auto-Generate d Referral 12/27/2021 01/26/2023 1 1 [facility] for referral (narrative)* Diagnostic Procedure Only (Routine) - Pending Review Specialty Diagnoses / Procedures Referred By Faisal t Referred To Contact BR IMAGING Diagnoses Encounter for screening mammogram for breast cancer Procedures OZIEL SCREENING SCREENING MAMMOGRAPHY BI 2-VIEW BREAST INC CAD Essie Man, MIMI.DEALERSHIP MANAGER [place] [address] [facility] [address] [place] [address] Referral ID Status Reason Start Date Expiration Date Visits Requested Visits Authorized [id number] Pending Review Auto-Generat ed Referral 03/20/2022 04/19/2023 1 1 [facility] for referral (narrative)* Diagnostic Procedure Only (Routine) - Closed Specialty Diagnoses / Procedures Referred By Contac t Referred To Contact BR IMAGING Diagnoses Encounter for screening mammogram for breast cancer Procedures OZIEL SCREENING SCREENING MAMMOGRAPHY BI 2-VIEW BREAST INC CAD Chance Kolb MD [address] [place] [address] [facility] [address] [place] [address] Referral ID Status Reason Start Date Expiration Date V isits Requested Visits Authorized [id number] Closed Auto-Generate d Referral 08/02/2021 09/01/2022 1 1 [facility] for referral (narrative)* Diagnostic Procedure Only (Routine) - Closed Specialty Diagnoses / Procedures Referred By Alyssaac t Referred To Contact XR IMAGING Diagnoses Rib pain on right side Procedures XR RIBS/CHEST 3V AP RIB/OBLS/CXR RIGHT RADEX RIBS UNI W/POSTEROANT CH MINIMUM 3 VIEWS Chance Kolb MD [address] [place] [address] Xr Imaging Referral ID Status Reason Start Date Expiration Date V isits Requested Visits Authorized [id number] Closed Auto-Generate d Referral 11/16/2022 12/16/2023 1 1 [facility] for referral (narrative)* Diagnostic Procedure Only (Routine) - Pending Review Specialty Diagnoses / Procedures Referred By Contac t Referred To Contact BR IMAGING Diagnoses Encounter for screening mammogram for breast cancer Procedures OZIEL SCREENING SCREENING MAMMOGRAPHY BI 2-VIEW BREAST INC Essie Jean-Baptiste APRN.CNP [address] [place] [address] [facility] [address] [place] [address] Referral ID Status Reason Start Date Expiration Date Visits Requested Visits Authorized [id number] Pending Review Auto-Generat ed Referral 03/25/2023 04/23/2024 1 1 [facility] for referral (narrative)* Diagnostic Procedure Only (Routine) - Closed Specialty Diagnoses / Procedures Referred By Contac t Referred To Contact BR IMAGING Diagnoses Encounter for screening mammogram for breast cancer Procedures OZIEL SCREENING SCREENING MAMMOGRAPHY BI 2-VIEW BREAST INC CAD Essie Man APRN.DEALERSHIP MANAGER [address] [place] [address] [facility] [address] [place] [address] Referral ID Status Reason Start Date Expiration Date V isits Requested Visits Authorized [id number] Closed Auto-Generate d Referral 03/20/2022 04/19/2023 1 1 [facility] for referral (narrative)* Diagnostic Procedure Only (Routine) - Authorized Specialty Diagnoses / Procedures Referred By Contac t Referred To Contact BR IMAGING Diagnoses Encounter for screening mammogram for breast cancer Procedures OZIEL SCREENING SCREENING MAMMOGRAPHY BI 2-VIEW BREAST INC CAD Malachi Lilly APRN.DEALERSHIP MANAGER [address] [place] [address] [facility] [address] [place] [address] Referral ID Status Reason Start Date Expiration Date Visits Requested Visits Authorized [id number] Authorized Auto-Generat ed Referral 12/31/2023 01/29/2025 1 1 * Diagnostic Procedure Only (Routine) - Closed Specialty Diagnoses / Procedures Referred By Contac t Referred To Contact XR IMAGING Diagnoses Acute bilateral low back pain without sciatica Procedures XR LUMBAR GENERAL 3V AP/LAT/L5-S1 RADEX SPINE LUMBOSACRAL 2/3 VIEWS Malachi Lilly APRN.DEALERSHIP MANAGER [address] [place] [address] [place] [address] Referral ID Status Reason Start Date Expiration Date V isits Requested Visits Authorized [id number] Closed Auto-Generate d Referral 12/31/2023 01/29/2025 1 1 [facility] for referral (narrative)* Diagnostic Procedure Only (Routine) - Closed Specialty Diagnoses / Procedures Referred By Contac t Referred To Contact XR IMAGING Diagnoses Acute bilateral low back pain without sciatica Procedures XR LUMBAR GENERAL 3V AP/LAT/L5-S1 RADEX SPINE LUMBOSACRAL 2/3 VIEWS Malachi Lilly APRN.DEALERSHIP MANAGER [facility] [place] [address] [place] [address] Referral ID Status Reason Start Date Expiration Date V isits Requested Visits Authorized [id number] Closed Auto-Generate d Referral 12/31/2023 01/29/2025 1 1 [facility] for referral (narrative)* Diagnostic Procedure Only (Urgent) - Closed Specialty Diagnoses / Procedures Referred By Contac t Referred To Contact XR IMAGING Diagnoses Fall from bed, initial encounter Rib injury Rib pain on right side Procedures XR RIBS/CHEST 3V AP RIB/OBLS/CXR RIGHT RADEX RIBS UNI W/POSTEROANT CH MINIMUM 3 VIEWS Talya Howell APRN.DEALERSHIP MANAGER [address] [place] [address] [place] [address] Referral ID Status Reason Start Date Expiration Date V isits Requested Visits Authorized [id number] Closed Auto-Generate d Referral 09/03/2023 10/02/2024 1 1 [facility] for referral (narrative)* Diagnostic Procedure Only (Routine) - Closed Specialty Diagnoses / Procedures Referred By Contac t Referred To Contact XR IMAGING Diagnoses Rib pain on right side Procedures XR RIBS/CHEST 3V AP RIB/OBLS/CXR RIGHT RADEX RIBS UNI W/POSTEROANT CH MINIMUM 3 VIEWS Chance Kolb MD [address] [place] [address] [place] [address] Referral ID Status Reason Start Date Expiration Date V isits Requested Visits Authorized [id number] Closed Auto-Generate d Referral 11/16/2022 12/16/2023 1 1 [facility] for referral (narrative)* Diagnostic Procedure Only (Urgent) - Closed Specialty Diagnoses / Procedures Referred By Contac t Referred To Contact XR IMAGING Diagnoses Fall, initial encounter Left hand pain Procedures XR HAND GENERAL 3V PA/LAT/OBL LEFT RADEX HAND MINIMUM 3 VIEWS Azucena Khan APRN.DEALERSHIP MANAGER [address] [place] [address] [place] [address] Referral ID Status Reason Start Date Expiration Date V isits Requested Visits Authorized [id number] Closed Auto-Generate d Referral 11/25/2021 12/25/2022 1 1 * Diagnostic Procedure Only (Urgent) - Closed Specialty Diagnoses / Procedures Referred By Contac t Referred To Contact XR IMAGING Diagnoses Fall, initial encounter Rib pain on right side Procedures XR RIBS/CHEST 3V AP RIB/OBLS/CXR RIGHT RADEX RIBS UNI W/POSTEROANT CH MINIMUM 3 VIEWS Azucena Khan APRN.DEALERSHIP MANAGER [address] [place] [id number] [place] [address] Referral ID Status Reason Start Date Expiration Date V isits Requested Visits Authorized [id number] Closed Auto-Generate d Referral 11/25/2021 12/25/2022 1 1 [facility] Diagnostic Procedure Only (Routine) - Closed Specialty Diagnoses / Procedures Referred By Contac t Referred To Contact XR IMAGING Diagnoses Asymptomatic postmenopausal status Procedures DXA-AXIAL SKELETON DXA BONE DENSITY STUDY / SITES AXIAL Chance Moulton MD [address] [place] [address] [place] [address] Referral ID Status Reason Start Date Expiration Date V isits Requested Visits Authorized [id number] Closed Auto-Generate d Referral 06/24/2024 07/24/2025 1 1 [facility] for referral (narrative)No reason for referral information availableWSelect [facility] Work Phone: Reason for visit Narrative* Diagnostic Procedure Only (Routine) - Closed Specialty Diagnoses / Procedures Referred By Contac t Referred To Contact XR IMAGING Diagnoses Closed nondisplaced fracture of neck of fifth metacarpal bone of left hand, initial encounter Procedures XR HAND GENERAL 3V PA/LAT/OBL LEFT RADEX HAND MINIMUM 3 VIEWS Jersey Stern V, DO [address] [place] [address] Xr Imaging Referral ID Status Reason Start Date Expiration Date V isits Requested Visits Authorized [id number] Closed Auto-Generate d Referral 12/27/2021 01/26/2023 1 1 [facility] for visit Narrative* Diagnostic Procedure Only (Routine) - Closed Specialty Diagnoses / Procedures Referred By Contac t Referred To Contact BR IMAGING Diagnoses Encounter for screening mammogram for breast cancer Procedures OZIEL SCREENING SCREENING MAMMOGRAPHY BI 2-VIEW BREAST INC Chance Dent MD [address] [place] [address] [facility] [address] [place] [address] Referral ID Status Reason Start Date Expiration Date V isits Requested Visits Authorized [id number] Closed Auto-Generate d Referral 08/02/2021 09/01/2022 1 1 [facility] for visit Narrative* Diagnostic Procedure Only (Routine) - Closed Specialty Diagnoses / Procedures Referred By Contac t Referred To Contact BR IMAGING Diagnoses Encounter for screening mammogram for breast cancer Procedures OZIEL SCREENING SCREENING MAMMOGRAPHY BI 2-VIEW BREAST INC CAD Essie Man FITNESS COACH.DEALERSHIP MANAGER [address] [address] [facility] [address] [place] [address] Referral ID Status Reason Start Date Expiration Date V isits Requested Visits Authorized [id number] Closed Auto-Generate d Referral 03/20/2022 04/19/2023 1 1 [facility] for visit Narrative* Diagnostic Procedure Only (Routine) - Closed Specialty Diagnoses / Procedures Referred By Faisal t Referred To Contact BR IMAGING Diagnoses Encounter for screening mammogram for breast cancer Procedures OZIEL SCREENING SCREENING MAMMOGRAPHY BI 2-VIEW BREAST INC CAD Malachi Lilly, FITNESS COACH.DEALERSHIP MANAGER [address] [place] [address] [facility] [address] [place] [address] Referral ID Status Reason Start Date Expiration Date V isits Requested Visits Authorized [id number] Closed Auto-Generate d Referral 12/31/2023 01/29/2025 1 1 [facility] for visit Narrative* Diagnostic Procedure Only (Routine) - Closed Specialty Diagnoses / Procedures Referred By Faisal t Referred To Contact XR IMAGING Diagnoses Acute bilateral low back pain without sciatica Procedures XR LUMBAR GENERAL 3V AP/LAT/L5-S1 RADEX SPINE LUMBOSACRAL 2/3 VIEWS Malachi Lilly FITNESS COACH.DEALERSHIP MANAGER [address] [place] [address] [place] [address] Referral ID Status Reason Start Date Expiration Date V isits Requested Visits Authorized [id number] Closed Auto-Generate d Referral 12/31/2023 01/29/2025 1 1 [facility] for visit Narrative* Diagnostic Procedure Only (Urgent) - Closed Specialty Diagnoses / Procedures Referred By Alyssaac t Referred To Contact XR IMAGING Diagnoses Fall from bed, initial encounter Rib injury Rib pain on right side Procedures XR RIBS/CHEST 3V AP RIB/OBLS/CXR RIGHT RADEX RIBS UNI W/POSTEROANT CH MINIMUM 3 VIEWS Talya Howell, FITNESS COACH.DEALERSHIP MANAGER [address] [place] [address] [place] [address] Referral ID Status Reason Start Date Expiration Date V isits Requested Visits Authorized [id number] Closed Auto-Generate d Referral 09/03/2023 10/02/2024 1 1 [facility] for visit Narrative* Diagnostic Procedure Only (Routine) - Closed Specialty Diagnoses / Procedures Referred By Contac t Referred To Contact XR IMAGING Diagnoses Rib pain on right side Procedures XR RIBS/CHEST 3V AP RIB/OBLS/CXR RIGHT RADEX RIBS UNI W/POSTEROANT CH MINIMUM 3 VIEWS Chance Kolb MD [address] [place] [address] [place] [address] Referral ID Status Reason Start Date Expiration Date V isits Requested Visits Authorized [id number] Closed Auto-Generate d Referral 11/16/2022 12/16/2023 1 1 [facility] for visit Narrative* Diagnostic Procedure Only (Urgent) - Closed Specialty Diagnoses / Procedures Referred By Contac t Referred To Contact XR IMAGING Diagnoses Fall, initial encounter Left hand pain Procedures XR HAND GENERAL 3V PA/LAT/OBL LEFT RADEX HAND MINIMUM 3 VIEWS Azucena Khan, FITNESS COACH.DEALERSHIP MANAGER [address] [place] [address] [place] [address] Referral ID Status Reason Start Date Expiration Date V isits Requested Visits Authorized [id number] Closed Auto-Generate d Referral 11/25/2021 12/25/2022 1 1 [facility] for visit Narrative* Diagnostic Procedure Only (Routine) - Closed Specialty Diagnoses / Procedures Referred By Contac t Referred To Contact XR IMAGING Diagnoses Asymptomatic postmenopausal status Procedures DXA-AXIAL SKELETON DXA BONE DENSITY STUDY / SITES AXIAL SKEL Chance Kolb MD [address] [place] [address] [place] [address] Referral ID Status Reason Start Date Expiration Date V isits Requested Visits Authorized [id number] Closed Auto-Generate d Referral 06/24/2024 07/24/2025 1 1 [facility] Diagnostic Procedure Only (Routine) - Closed Specialty Diagnoses / Procedures Referred By Faisal t Referred To Contact BR IMAGING Diagnoses Encounter for screening mammogram for malignant neoplasm of breast Procedures OZIEL SCREENING W GABRIEL SCREENING DIGITAL BREAST TOMOSYNTHESIS BI SCREENING MAMMOGRAPHY BI 2-VIEW BREAST INC LUCIANO Nguyễn Stringer, FITNESS COACH.LEAD BURNER SUPERVISOR [address] [facility] [place] [address] Phone: tel: fax: [facility] [address] [place] [address] Referral ID Status Reason Start Date Expiration Date V isits Requested Visits Authorized [id number] Closed Auto-Generate d Referral 05/04/2025 06/03/2026 1 1 [facility] Concerns Infection Onset Date Last Indicated Resolved Time COVID-19 Rule-Out 02/01/2022 02/01/2022 Chief Complaint and Reason for Visit Chief Complaint lac Chief Complaint lac mental health Chief Complaint lac mental health ACUTE UTI, ENCEPHALOPATHY, ? TIA Reason for Visit Acute confusion Slurred speech Weakness Chief Complaint lac mental health ACUTE UTI, ENCEPHALOPATHY, ? TIA ACUTE UTI, ENCEPHALOPATHY, ? TIA ACUTE UTI, ENCEPHALOPATHY, ? TIA Reason for Visit Acute confusion Hypokalemia Slurred speech Toxic metabolic encephalopathy Weakness Chief Complaint Laceration Chief Complaint Admit Date WOUND January 01, 2025 7:4 8pm wound January 06, 2025 1:3 9pm wound January 06, 2025 2:5 4pm wound January 13, 2025 8:08pm wound January 19, 2025 7:00p m wound February 02, 2025 2:00p m wound February 02, 2025 4:43p m Reason for Visit Admit Date Avulsion injury January 06, 2025 1:3 9pm History of ankle surgery January 06 1:39pm History of cataract surgery January 06, 2025 1:39pm History of surgery on wrist January 06, 2025 1:39pm Zqqd-gnnj-lpyghcvtzqyvofl January 06 1:39pm S/P ORIF (open reduction internal fixati on) fracture January 06, 2025 1:39pm Traumatic open wound of lower leg January 06, 2025 1:39pm Hypothyroidism January 06, 2025 1:3 9pm Osteoporosis January 06, 2025 1:3 9pm Raynaud phenomenon January 06, 2025 1:3 9pm Avulsion injury February 02, 2025 2:00p m History of ankle surgery February 02, 2025 2:00pm History of cataract surgery February 02 2:00pm History of surgery on wrist February 02 2:00pm Tdcj-vegw-fmadhhfasiwmoue February 02, 2025 2:00pm S/P ORIF (open reduction internal fixati on) fracture February 02, 2025 2:00pm Traumatic open wound of lower leg February 022024 2:00pm Hypothyroidism February 02, 2025 2:00p m 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 February 02, 2025 2:00pm Osteoporosis February 02, 2025 2:00p m Raynaud phenomenon February 02, 2025 2:00p m Chief Complaint Admit Date WOUND January 01, 2025 7:4 8pm wound January 06, 2025 1:3 9pm wound January 06, 2025 2:5 4pm wound January 13, 2025 8:08pm wound January 19, 2025 7:00p m wound February 02, 2025 2:00p m wound February 02, 2025 4:43p m wound February 09, 2025 10:15 am wound February 16, 2025 11:2 7am wound February 23, 2025 11:1 0am wound March 02, 2025 10:5 7am wound March 02, 2025 1:30 pm Reason for Visit Admit Date Avulsion injury January 06, 2025 1:3 9pm History of ankle surgery January 06 1:39pm History of cataract surgery January 06, 2025 1:39pm History of surgery on wrist January 06, 2025 1:39pm Ddzq-acwo-ylllyknrftbindr January 06 1:39pm S/P ORIF (open reduction internal fixati on) fracture January 06, 2025 1:39pm Traumatic open wound of lower leg January 06, 2025 1:39pm Hypothyroidism January 06, 2025 1:3 9pm Osteoporosis January 06, 2025 1:3 9pm Raynaud phenomenon January 06, 2025 1:3 9pm Avulsion injury February 02, 2025 2:00p m History of ankle surgery February 02, 2025 2:00pm History of cataract surgery February 02 2:00pm History of surgery on wrist February 02 2:00pm Lxsy-psdk-rgirpbzitwaqwxy February 02, 2025 2:00pm S/P ORIF (open reduction internal fixati on) fracture February 02, 2025 2:00pm Traumatic open wound of lower leg February 022024 2:00pm Hypothyroidism February 02, 2025 2:00p m 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 February 02, 2025 2:00pm Osteoporosis February 02, 2025 2:00p m Raynaud phenomenon February 02, 2025 2:00p m Avulsion injury March 02, 2025 1:30 pm History of ankle surgery March 02, 2025 1:30pm History of cataract surgery March 02, 2 025 1:30pm History of surgery on wrist March 02, 2 025 1:30pm Qurq-aoii-xwwnpqxpdorptqp March 02 1:30pm S/P ORIF (open reduction internal fixati on) fracture March 02, 2025 1:30pm Traumatic open wound of lower leg February [id number] 1:30pm Hypothyroidism March 02, 2025 1:30 pm 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 March 02, 2025 1:30pm Osteoporosis March 02, 2025 1:30 pm Raynaud phenomenon March 02, 2025 1:30 pm Chief Complaint Admit Date WOUND January 01, 2025 7:4 8pm wound January 06, 2025 1:3 9pm wound January 06, 2025 2:5 4pm wound January 13, 2025 8:08pm wound January 19, 2025 7:00p m wound February 02, 2025 2:00p m wound February 02, 2025 4:43p m wound February 09, 2025 10:15 am wound February 16, 2025 11:2 7am wound February 23, 2025 11:1 0am wound March 02, 2025 10:5 7am wound March 02, 2025 1:30 pm wound March 09, 2025 12:44 pm wound March 11, 2025 1:18p m lac March 13, 2025 7:13p m Reason for Visit Admit Date Avulsion injury January 06, 2025 1:3 9pm History of ankle surgery January 06 1:39pm History of cataract surgery January 06, 2025 1:39pm History of surgery on wrist January 06, 2025 1:39pm Frsx-ktfa-cckackwgmmvmylh January 06 1:39pm S/P ORIF (open reduction internal fixati on) fracture January 06, 2025 1:39pm Traumatic open wound of lower leg January 06, 2025 1:39pm Hypothyroidism January 06, 2025 1:3 9pm Osteoporosis January 06, 2025 1:3 9pm Raynaud phenomenon January 06, 2025 1:3 9pm Avulsion injury February 02, 2025 2:00p m History of ankle surgery February 02, 2025 2:00pm History of cataract surgery February 02 2:00pm History of surgery on wrist February 02 2:00pm Qkbc-cnnt-lbtxufrxxxmpuqc February 02, 2025 2:00pm S/P ORIF (open reduction internal fixati on) fracture February 02, 2025 2:00pm Traumatic open wound of lower leg February [id number] 2:00pm Hypothyroidism February 02, 2025 2:00p m 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 February 02, 2025 2:00pm Osteoporosis February 02, 2025 2:00p m Raynaud phenomenon February 02, 2025 2:00p m Avulsion injury March 02, 2025 1:30 pm History of ankle surgery March 02, 2025 1:30pm History of cataract surgery March 02, 2 025 1:30pm History of surgery on wrist March 02 2 025 1:30pm Ijvs-chvb-hnfltqncabprsss March 02 1:30pm S/P ORIF (open reduction internal fixati on) fracture March 02, 2025 1:30pm Traumatic open wound of lower leg February 082024 1:30pm Hypothyroidism March 02, 2025 1:30 pm 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 March 02, 2025 1:30pm Osteoporosis March 02, 2025 1:30 pm Raynaud phenomenon March 02, 2025 1:30 pm Avulsion injury March 09, 2025 12:44 pm History of ankle surgery March 09, 2025 12:44pm History of cataract surgery March 09 12:44pm History of surgery on wrist March 09 12:44pm Pkbr-fsio-fmpxwelgrxkkfii March 09, 2025 12:44pm S/P ORIF (open reduction internal fixati on) fracture March 09, 2025 12:44pm Traumatic open wound of lower leg March 092024 12:44pm Hypothyroidism March 09, 2025 12:44 pm 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 March 09, 2025 12:44pm Osteoporosis March 09, 2025 12:44 pm Raynaud phenomenon March 09, 2025 12:44 pm Chief Complaint Admit Date WOUND January 01, 2025 7:4 8pm wound January 06, 2025 1:3 9pm wound January 06, 2025 2:5 4pm wound January 13, 2025 8:08pm wound January 19, 2025 7:00p m wound February 02, 2025 2:00p m wound February 02, 2025 4:43p m wound February 09, 2025 10:15 am wound February 16, 2025 11:2 7am wound February 23, 2025 11:1 0am wound March 02, 2025 10:5 7am wound March 02, 2025 1:30 pm wound March 09, 2025 12:44 pm wound March 09, 2025 1:18p m lac March 13, 2025 7:13p m LEG March 18, 2025 9:23 am Chief Complaint Admit Date WOUND January 01, 2025 7:4 8pm wound January 06, 2025 1:3 9pm wound January 06, 2025 2:5 4pm wound January 13, 2025 8:08pm wound January 19, 2025 7:00p m wound February 02, 2025 2:00p m wound February 02, 2025 4:43p m wound February 09, 2025 10:15 am wound February 16, 2025 11:2 7am wound February 23, 2025 11:1 0am wound March 02, 2025 10:5 7am wound March 02, 2025 1:30 pm wound March 09, 2025 1:18p m lac March 13, 2025 7:13p m LEG March 18, 2025 9:23 am wound March 23, 2025 5:30 pm wound March 30, 2025 1:15 pm wound April 01, 2025 11:3 5am Reason for Visit Admit Date Avulsion injury January 06, 2025 1:3 9pm History of ankle surgery January 06 1:39pm History of cataract surgery January 06, 2025 1:39pm History of surgery on wrist January 06, 2025 1:39pm Vxgv-qqam-sfogtdivdcinxxa January 06 1:39pm S/P ORIF (open reduction internal fixati on) fracture January 06, 2025 1:39pm Traumatic open wound of lower leg January 06, 2025 1:39pm Hypothyroidism January 06, 2025 1:3 9pm Osteoporosis January 06, 2025 1:3 9pm Raynaud phenomenon January 06, 2025 1:3 9pm Avulsion injury February 02, 2025 2:00p m History of ankle surgery February 02, 2025 2:00pm History of cataract surgery February 02 2:00pm History of surgery on wrist February 02 2:00pm Heki-wrps-bwmccgcaqoghodt February 02, 2025 2:00pm S/P ORIF (open reduction internal fixati on) fracture February 02, 2025 2:00pm Traumatic open wound of lower leg February [id number] 2:00pm Hypothyroidism February 02, 2025 2:00p m 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 February 02, 2025 2:00pm Osteoporosis February 02, 2025 2:00p m Raynaud phenomenon February 02, 2025 2:00p m Avulsion injury March 02, 2025 1:30 pm History of ankle surgery March 02, 2025 1:30pm History of cataract surgery March 02, 025 1:30pm History of surgery on wrist March 02 025 1:30pm Zxqu-ekcp-koqpcxkkqgzsajr March 02 1:30pm S/P ORIF (open reduction internal fixati on) fracture March 02, 2025 1:30pm Traumatic open wound of lower leg February 082024 1:30pm Hypothyroidism March 02, 2025 1:30 pm 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 March 02, 2025 1:30pm Osteoporosis March 02, 2025 1:30 pm Raynaud phenomenon March 02, 2025 1:30 pm Avulsion injury March 30, 2025 1:15 pm History of ankle surgery March 30, 2025 1:15pm History of cataract surgery March 30 1:15pm History of surgery on wrist March 30 1:15pm Iusb-osvm-fhrccymqayxcchs March 30 1:15pm S/P ORIF (open reduction internal fixati on) fracture March 30, 2025 1:15pm Traumatic open wound of lower leg March 102024 1:15pm Hypothyroidism March 30, 2025 1:15 pm 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 March 30, 2025 1:15pm Non-pressure chronic ulcer o f right calf with fat layer exposed March 30, 2025 1:15pm Osteoporosis March 30, 2025 1:15 pm Raynaud phenomenon March 30, 2025 1:15 pm Chief Complaint Admit Date wound January 13, 2025 8:08pm wound January 19, 2025 7:00p m wound February 02, 2025 2:00p m wound February 02, 2025 4:43p m wound February 09, 2025 10:15 am wound February 16, 2025 11:2 7am wound February 23, 2025 11:1 0am wound March 02, 2025 10:5 7am wound March 02, 2025 1:30 pm wound March 09, 2025 1:18p m lac March 13, 2025 7:13p m LEG March 18, 2025 9:23 am wound March 23, 2025 5:30 pm wound March 30, 2025 11:3 5am wound March 30, 2025 1:15 pm wound April 20, 2025 5: 50pm wound May 04, 2025 1: 00pm wound May 09, 2025 5: 03pm Reason for Visit Admit Date Avulsion injury February 02, 2025 2:00p m History of ankle surgery February 02, 2025 2:00pm History of cataract surgery February 02 2:00pm History of surgery on wrist February 02 2:00pm Emwa-wcsx-wbqcspmvemgbinh February 02, 2025 2:00pm S/P ORIF (open reduction internal fixati on) fracture February 02, 2025 2:00pm Traumatic open wound of lower leg February 022024 2:00pm Hypothyroidism February 02, 2025 2:00p m 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 February 02, 2025 2:00pm Osteoporosis February 02, 2025 2:00p m Raynaud phenomenon February 02, 2025 2:00p m Avulsion injury March 02, 2025 1:30 pm History of ankle surgery March 02, 2025 1:30pm History of cataract surgery March 02, 025 1:30pm History of surgery on wrist March 02 025 1:30pm Fsqc-rmce-purhmlcmbcycwyl March 02 1:30pm S/P ORIF (open reduction internal fixati on) fracture March 02, 2025 1:30pm Traumatic open wound of lower leg February 082024 1:30pm Hypothyroidism March 02, 2025 1:30 pm 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 March 02, 2025 1:30pm Osteoporosis March 02, 2025 1:30 pm Raynaud phenomenon March 02, 2025 1:30 pm Avulsion injury March 30, 2025 1:15 pm History of ankle surgery March 30, 2025 1:15pm History of cataract surgery March 30, 2 025 1:15pm History of surgery on wrist March 30 2 025 1:15pm Vtqj-kfrn-jrwbblcwllxawjt March 30 1:15pm S/P ORIF (open reduction internal fixati on) fracture March 30, 2025 1:15pm Traumatic open wound of lower leg March 102024 1:15pm Hypothyroidism March 30, 2025 1:15 pm 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 March 30, 2025 1:15pm Non-pressure chronic ulcer o f right calf with fat layer exposed March 30, 2025 1:15pm Osteoporosis March 30, 2025 1:15 pm Raynaud phenomenon March 30, 2025 1:15 pm History of ankle surgery May 04 1:00pm History of cataract surgery May 04, 2025 1:00pm History of surgery on wrist May 04, 2025 1:00pm Eoms-xvmn-pkdypgmyobgsayg May 04, 025 1:00pm S/P ORIF (open reduction internal fixati on) fracture May 04, 2025 1:00pm Traumatic open wound of lower leg May 04, 2025 1:00pm Hypothyroidism May 04, 2025 1: 00pm Non-pressure chronic ulcer o f right calf with fat layer exposed May 04, 2025 1:00pm Osteoporosis May 04, 2025 1: 00pm Raynaud phenomenon May 04, 2025 1: 00pm Chief Complaint Admit Date wound February 09, 2025 10:15 am wound February 16, 2025 11:2 7am wound February 23, 2025 11:1 0am wound March 02, 2025 10:5 7am wound March 02, 2025 1:30 pm wound March 09, 2025 1:18p m lac March 13, 2025 7:13p m LEG March 18, 2025 9:23 am wound March 23, 2025 5:30 pm wound March 30, 2025 11:3 5am wound March 30, 2025 1:15 pm wound April 20, 2025 5: 50pm wound May 04, 2025 1: 00pm wound May 04, 2025 5: 03pm wound May 25, 2025 12:45pm wound May 25, 2025 1:49pm Reason for Visit Admit Date Avulsion injury March 02, 2025 1:30 pm History of ankle surgery March 02, 2025 1:30pm History of cataract surgery March 02 025 1:30pm History of surgery on wrist March 02 025 1:30pm Aawp-zwwr-aogzxhhlnnszuxd March 02 1:30pm S/P ORIF (open reduction internal fixati on) fracture March 02, 2025 1:30pm Traumatic open wound of lower leg February 082024 1:30pm Hypothyroidism March 02, 2025 1:30 pm 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 March 02, 2025 1:30pm Osteoporosis March 02, 2025 1:30 pm Raynaud phenomenon March 02, 2025 1:30 pm Avulsion injury March 30, 2025 1:15 pm History of ankle surgery March 30, 2025 1:15pm History of cataract surgery March 30, 025 1:15pm History of surgery on wrist March 30 025 1:15pm Yndl-wsdb-vpslhohdjlbqrfk March 30 1:15pm S/P ORIF (open reduction internal fixati on) fracture March 30, 2025 1:15pm Traumatic open wound of lower leg March 102024 1:15pm Hypothyroidism March 30, 2025 1:15 pm 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 March 30, 2025 1:15pm Non-pressure chronic ulcer o f right calf with fat layer exposed March 30, 2025 1:15pm Osteoporosis March 30, 2025 1:15 pm Raynaud phenomenon March 30, 2025 1:15 pm History of ankle surgery May 04 1:00pm History of cataract surgery May 04, 2025 1:00pm History of surgery on wrist May 04, 2025 1:00pm Cblb-lpyn-kspxnjjejcwsvfv May 04 1:00pm S/P ORIF (open reduction internal fixati on) fracture May 04, 2025 1:00pm Traumatic open wound of lower leg May 04, 2025 1:00pm Hypothyroidism May 04, 2025 1: 00pm Non-pressure chronic ulcer o f right calf with fat layer exposed May 04, 2025 1:00pm Osteoporosis May 04, 2025 1: 00pm Raynaud phenomenon May 04, 2025 1: 00pm History of ankle surgery May 25, 2025 12:45pm History of cataract surgery May 252024 12:45pm History of surgery on wrist May 252024 12:45pm Fdxm-hvep-zldaxwnwgbxytkc May 12:45pm S/P ORIF (open reduction internal fixati on) fracture May 25, 2025 12:45pm Traumatic open wound of lower leg Sept2024 12:45pm Hypothyroidism May 25, 2025 12:45pm Non-pressure chronic ulcer o f right calf with fat layer exposed May 25, 2025 12:45pm Osteoporosis May 25, 2025 12:45pm Raynaud phenomenon May 25, 2025 12:45pm Family History No Family History Records Found Relationship Condition Age at Onset Recorded Date/T john Unknown Family History?Diabe michelle, Dementia, - Unknown September 30, 2016 2:43pm Family History?No pe rtinent history Unknown December 08, 2015 9:51am Family History?No pe rtinent history, - Unknown September 30, 2016 2:43pm Relationship Condition Age at Onset Recorded Date/T john Unknown Family History?Diabe michelle, Dementia, - Unknown September 30, 2016 1:43pm Family History?No pe rtinent history Unknown December 08, 2015 8:51am Family History?No pe rtinent history, - Unknown September 30, 2016 1:43pm Relationship Condition Age at Onset Recorded Date/T john father Diabetes mellitus Unknown Dementia Unknown Advance Directives No Advanced Directives Records Found Advance Directive Response Recorded Date/ Time Advance Directives No September 30, 2016 12:33pm Living Will No May 27, 2022 10:49am Power of Ceramics Test Engineer No May 10:49am Advance Directive Response Recorded Date/ Time Advance Directives No September 30, 2016 11:33am Living Will No May 27, 2022 9:49am Power of Ceramics Test Engineer No May 9:49am Advance Directive Response Recorded Date/ Time Advance Directives No September 30, 2016 11:33am Living Will No September 07, 2 022 1:34am Power of Ceramics Test Engineer No September 07, 2022 1:34am Advance Directive Response Recorded Date/ Time Advance Directives No September 30, 2016 12:33pm Living Will No April 29 1:32pm Power of Ceramics Test Engineer No April 29, 2 023 1:32pm Advance Directive Response Recorded Date/ Time Do you have a Healthcare Power of Ceramics Test Engineer? No January 01, 2025 8:13pm Advance Directives No September 30, 2016 12:33pm Advance Directive Response Recorded Date/ Time Do you have a Healthcare Power of Ceramics Test Engineer? No January 01, 2025 8:13pm Do you have a Healthcare Power of Ceramics Test Engineer? No March 13, 2025 7:37pm Advance Directives No September 30, 2016 12:33pm Advance Directive Response Recorded Date/ Time Do you have a Healthcare Power of Ceramics Test Engineer? No January 01, 2025 8:13pm Do you have a Healthcare Power of Ceramics Test Engineer? No March 13, 2025 7:37pm Do you have a Healthcare Power of Ceramics Test Engineer? No March 18, 2025 10:06am Advance Directives No September 30, 2016 12:33pm Advance Directive Response Recorded Date/ Time Do you have a Healthcare Power of Ceramics Test Engineer? No March 13, 2025 7:37pm Do you have a Healthcare Power of Ceramics Test Engineer? No March 18, 2025 10:06am Advance Directives No September 30, 2016 12:33pm Medications Administered Section Administered Medications Medication Order MAR Action Action Date Dose Rate Site tuberculin skin test, unspecified formulation Given 10/11/2016 tuberculin skin test, unspecified formulation Given 10/04/2016 Reason for Referral Specialty Diagnoses / Procedures Referred By Contac t Referred To Contact Orthopedics Diagnoses Nodule of finger of right hand Thumb joint locking Procedures CONSULT TO ORTHOPAEDICS OFFICE/OUTPATIENT [facility] 60-74 MINUTES Malachi Lilly APRN.DE[employer] MANAGER [address] [place] [address] Referral ID Status Reason Start Date Expiration Date Visits Requested Visits Authorized [id number] Authorized PCP Requested Referral 03/26/2023 03/25/2024 1 1 Specialty Diagnoses / Procedures Referred By Contac t Referred To Contact Radiology Diagnoses Mass of finger of right hand Rupture of flexor pollicis longus muscle Procedures MR wrist right wo IV contrast Thea Vail MD 1 [facility] [address] [place] [id number] Referral ID Status Reason Start Date Expiration Date V isits Requested Visits Authorized [id number] Pending Review 08/12/2023 08/11/2024 1 1 Specialty Diagnoses / Procedures Referred By Contac t Referred To Contact Radiology Diagnoses Mass of finger of right hand Rupture of flexor pollicis longus muscle Procedures MR hand right wo IV contrast Thea Vail MD 1 [facility] [address] [place] [id number] Referral ID Status Reason Start Date Expiration Date V isits Requested Visits Authorized [id number] Pending Review 08/12/2023 08/11/2024 1 1 Referral ID Status Reason Start Date Expiration Date Visits Re quested Visits Authorized [id number] Closed 08/12/2023 08/11/2024 1 1 Referral ID Status Reason Start Date Expiration Date Visits Re quested Visits Authorized [id number] Closed 08/12/2023 08/11/2024 1 1 Specialty Diagnoses / Procedures Referred By Contac t Referred To Contact [facility] Diagnoses Gait instability Procedures CONSULT TO PHYSICAL THERAPY PHYSICAL THERAPY EVALUATION HIGH COMPLEX 45 MINS Chance Kolb MD [address] [place] [id number] [facility] [address] [address] Referral ID Status Reason Start Date Expiration Date Visits Requested Visits Authorized [id number] Authorized PCP Requested Referral Auto-Generate d Referral 4 06/24/2025 99 99 Specialty Diagnoses / Procedures Referred By Contac t Referred To Contact XR IMAGING Diagnoses Asymptomatic postmenopausal status Procedures DXA-AXIAL SKELETON DXA BONE DENSITY STUDY 1/> SITES AXIAL SKEL Chance Kolb MD [address] [place] [id number] X[id number] Referral ID Status Reason Start Date Expiration Date Visits Requested Visits Authorized [id number] Authorized Auto-Generat ed Referral 4 07/24/2025 1 1 Specialty Diagnoses / Procedures Referred By Contac t Referred To Contact [facility] Diagnoses Degeneration of intervertebral disc of lumbar region with discogenic back pain Lumbar spondylosis Chronic midline low back pain without sciatica Procedures CONSULT TO PHYSICAL THERAPY PHYSICAL THERAPY EVALUATION HIGH COMPLEX 45 MINS Chance Kolb MD [address] [place] [phone] [facility] [address] [address] Referral ID Status Reason Start Date Expiration Date Visits Requested Visits Authorized [id number] Authorized PCP Requested Referral Auto-Generate d Referral 4 06/24/2025 99 99 Summary Purpose Additional Source Comments Source Comments (unrecognize d section and content) In the event this informatio n is protected by the Federal Confidentiality of Alcohol and Drug Abuse Patient Records regulations: The Federal rules restrict any use of the information to criminally investigate or prosecute any alcohol or drug abuse patient.[facility] the event this information is protected by the Federal Confidentiality of Alcohol and Drug Abuse Patient Records regulations: The Federal rules restrict any use of the information to criminally investigate or prosecute any alcohol or drug abuse patient.[facility] the event this information is protected by the Federal Confidentiality of Alcohol and Drug Abuse Patient Records regulations: The Federal rules restrict any use of the information to criminally investigate or prosecute any alcohol or drug abuse patient.[facility] the event this information is protected by the Federal Confidentiality of Alcohol and Drug Abuse Patient Records regulations: The Federal rules restrict any use of the information to criminally investigate or prosecute any alcohol or drug abuse patient.[facility] the event this information is protected by the Federal Confidentiality of Alcohol and Drug Abuse Patient Records regulations: The Federal rules restrict any use of the information to criminally investigate or prosecute any alcohol or drug abuse patient.[facility]In the event this information is protected by the Federal Confidentiality of Alcohol and Drug Abuse Patient Records regulations: The Federal rules restrict any use of the information to criminally investigate or prosecute any alcohol or drug abuse patient.[facility] HospitalIn the event this information is protected by the Federal Confidentiality of Alcohol and Drug Abuse Patient Records regulations: The Federal rules restrict any use of the information to criminally investigate or prosecute any alcohol or drug abuse patient.[facility]In the event this information is protected by the Federal Confidentiality of Alcohol and Drug Abuse Patient Records regulations: The Federal rules restrict any use of the information to criminally investigate or prosecute any alcohol or drug abuse patient.[facility] HospitalIn the event this information is protected by the Federal Confidentiality of Alcohol and Drug Abuse Patient Records regulations: The Federal rules restrict any use of the information to criminally investigate or prosecute any alcohol or drug abuse patient.[facility] HospitalIn the event this information is protected by the Federal Confidentiality of Alcohol and Drug Abuse Patient Records regulations: The Federal rules restrict any use of the information to criminally investigate or prosecute any alcohol or drug abuse patient.[facility] HospitalIn the event this information is protected by the Federal Confidentiality of Alcohol and Drug Abuse Patient Records regulations: The Federal rules restrict any use of the information to criminally investigate or prosecute any alcohol or drug abuse patient.[facility] HospitalIn the event this information is protected by the Federal Confidentiality of Alcohol and Drug Abuse Patient Records regulations: The Federal rules restrict any use of the information to criminally investigate or prosecute any alcohol or drug abuse patient.[facility] HospitalIn the event this information is protected by the Federal Confidentiality of Alcohol and Drug Abuse Patient Records regulations: The Federal rules restrict any use of the information to criminally investigate or prosecute any alcohol or drug abuse patient.[facility] HospitalIn the event this information is protected by the Federal Confidentiality of Alcohol and Drug Abuse Patient Records regulations: The Federal rules restrict any use of the information to criminally investigate or prosecute any alcohol or drug abuse patient.[facility] HospitalIn the event this information is protected by the Federal Confidentiality of Alcohol and Drug Abuse Patient Records regulations: The Federal rules restrict any use of the information to criminally investigate or prosecute any alcohol or drug abuse patient.[facility] HospitalIn the event this information is protected by the Federal Confidentiality of Alcohol and Drug Abuse Patient Records regulations: The Federal rules restrict any use of the information to criminally investigate or prosecute any alcohol or drug abuse patient.[facility] HospitalIn the event this information is protected by the Federal Confidentiality of Alcohol and Drug Abuse Patient Records regulations: The Federal rules restrict any use of the information to criminally investigate or prosecute any alcohol or drug abuse patient.[facility] HospitalIn the event this information is protected by the Federal Confidentiality of Alcohol and Drug Abuse Patient Records regulations: The Federal rules restrict any use of the information to criminally investigate or prosecute any alcohol or drug abuse patient.[facility] HospitalIn the event this information is protected by the Federal Confidentiality of Alcohol and Drug Abuse Patient Records regulations: The Federal rules restrict any use of the information to criminally investigate or prosecute any alcohol or drug abuse patient.[facility] HospitalIn the event this information is protected by the Federal Confidentiality of Alcohol and Drug Abuse Patient Records regulations: The Federal rules restrict any use of the information to criminally investigate or prosecute any alcohol or drug abuse patient.[facility] HospitalIn the event this information is protected by the Federal Confidentiality of Alcohol and Drug Abuse Patient Records regulations: The Federal rules restrict any use of the information to criminally investigate or prosecute any alcohol or drug abuse patient.[facility] HospitalIn the event this information is protected by the Federal Confidentiality of Alcohol and Drug Abuse Patient Records regulations: The Federal rules restrict any use of the information to criminally investigate or prosecute any alcohol or drug abuse patient.[facility] HospitalIn the event this information is protected by the Federal Confidentiality of Alcohol and Drug Abuse Patient Records regulations: The Federal rules restrict any use of the information to criminally investigate or prosecute any alcohol or drug abuse patient.[facility] HospitalIn the event this information is protected by the Federal Confidentiality of Alcohol and Drug Abuse Patient Records regulations: The Federal rules restrict any use of the information to criminally investigate or prosecute any alcohol or drug abuse patient.[facility] HospitalIn the event this information is protected by the Federal Confidentiality of Alcohol and Drug Abuse Patient Records regulations: The Federal rules restrict any use of the information to criminally investigate or prosecute any alcohol or drug abuse patient.[facility] HospitalIn the event this information is protected by the Federal Confidentiality of Alcohol and Drug Abuse Patient Records regulations: The Federal rules restrict any use of the information to criminally investigate or prosecute any alcohol or drug abuse patient.[facility] HospitalIn the event this information is protected by the Federal Confidentiality of Alcohol and Drug Abuse Patient Records regulations: The Federal rules restrict any use of the information to criminally investigate or prosecute any alcohol or drug abuse patient.[facility] HospitalIn the event this information is protected by the Federal Confidentiality of Alcohol and Drug Abuse Patient Records regulations: The Federal rules restrict any use of the information to criminally investigate or prosecute any alcohol or drug abuse patient.[facility] HospitalIn the event this information is protected by the Federal Confidentiality of Alcohol and Drug Abuse Patient Records regulations: The Federal rules restrict any use of the information to criminally investigate or prosecute any alcohol or drug abuse patient.[facility] HospitalIn the event this information is protected by the Federal Confidentiality of Alcohol and Drug Abuse Patient Records regulations: The Federal rules restrict any use of the information to criminally investigate or prosecute any alcohol or drug abuse patient.[facility] HospitalIn the event this information is protected by the Federal Confidentiality of Alcohol and Drug Abuse Patient Records regulations: The Federal rules restrict any use of the information to criminally investigate or prosecute any alcohol or drug abuse patient.[facility] HospitalIn the event this information is protected by the Federal Confidentiality of Alcohol and Drug Abuse Patient Records regulations: The Federal rules restrict any use of the information to criminally investigate or prosecute any alcohol or drug abuse patient.[facility] HospitalIn the event this information is protected by the Federal Confidentiality of Alcohol and Drug Abuse Patient Records regulations: The Federal rules restrict any use of the information to criminally investigate or prosecute any alcohol or drug abuse patient.[facility] HospitalIn the event this information is protected by the Federal Confidentiality of Alcohol and Drug Abuse Patient Records regulations: The Federal rules restrict any use of the information to criminally investigate or prosecute any alcohol or drug abuse patient.[facility] HospitalIn the event this information is protected by the Federal Confidentiality of Alcohol and Drug Abuse Patient Records regulations: The Federal rules restrict any use of the information to criminally investigate or prosecute any alcohol or drug abuse patient.[facility] HospitalIn the event this information is protected by the Federal Confidentiality of Alcohol and Drug Abuse Patient Records regulations: The Federal rules restrict any use of the information to criminally investigate or prosecute any alcohol or drug abuse patient.[facility] HospitalIn the event this information is protected by the Federal Confidentiality of Alcohol and Drug Abuse Patient Records regulations: The Federal rules restrict any use of the information to criminally investigate or prosecute any alcohol or drug abuse patient.[facility] HospitalIn the event this information is protected by the Federal Confidentiality of Alcohol and Drug Abuse Patient Records regulations: The Federal rules restrict any use of the information to criminally investigate or prosecute any alcohol or drug abuse patient.[facility] HospitalIn the event this information is protected by the Federal Confidentiality of Alcohol and Drug Abuse Patient Records regulations: The Federal rules restrict any use of the information to criminally investigate or prosecute any alcohol or drug abuse patient.[facility] HospitalIn the event this information is protected by the Federal Confidentiality of Alcohol and Drug Abuse Patient Records regulations: The Federal rules restrict any use of the information to criminally investigate or prosecute any alcohol or drug abuse patient.[facility] HospitalIn the event this information is protected by the Federal Confidentiality of Alcohol and Drug Abuse Patient Records regulations: The Federal rules restrict any use of the information to criminally investigate or prosecute any alcohol or drug abuse patient.[facility] HospitalIn the event this information is protected by the Federal Confidentiality of Alcohol and Drug Abuse Patient Records regulations: The Federal rules restrict any use of the information to criminally investigate or prosecute any alcohol or drug abuse patient.[facility] HospitalIn the event this information is protected by the Federal Confidentiality of Alcohol and Drug Abuse Patient Records regulations: The Federal rules restrict any use of the information to criminally investigate or prosecute any alcohol or drug abuse patient.[facility] HospitalIn the event this information is protected by the Federal Confidentiality of Alcohol and Drug Abuse Patient Records regulations: The Federal rules restrict any use of the information to criminally investigate or prosecute any alcohol or drug abuse patient.[facility] HospitalIn the event this information is protected by the Federal Confidentiality of Alcohol and Drug Abuse Patient Records regulations: The Federal rules restrict any use of the information to criminally investigate or prosecute any alcohol or drug abuse patient.[facility] HospitalIn the event this information is protected by the Federal Confidentiality of Alcohol and Drug Abuse Patient Records regulations: The Federal rules restrict any use of the information to criminally investigate or prosecute any alcohol or drug abuse patient.[facility] HospitalIn the event this information is protected by the Federal Confidentiality of Alcohol and Drug Abuse Patient Records regulations: The Federal rules restrict any use of the information to criminally investigate or prosecute any alcohol or drug abuse patient.[facility] HospitalIn the event this information is protected by the Federal Confidentiality of Alcohol and Drug Abuse Patient Records regulations: The Federal rules restrict any use of the information to criminally investigate or prosecute any alcohol or drug abuse patient.[facility] HospitalIn the event this information is protected by the Federal Confidentiality of Alcohol and Drug Abuse Patient Records regulations: The Federal rules restrict any use of the information to criminally investigate or prosecute any alcohol or drug abuse patient.[facility] HospitalIn the event this information is protected by the Federal Confidentiality of Alcohol and Drug Abuse Patient Records regulations: The Federal rules restrict any use of the information to criminally investigate or prosecute any alcohol or drug abuse patient.[facility] HospitalIn the event this information is protected by the Federal Confidentiality of Alcohol and Drug Abuse Patient Records regulations: The Federal rules restrict any use of the information to criminally investigate or prosecute any alcohol or drug abuse patient.[facility] HospitalIn the event this information is protected by the Federal Confidentiality of Alcohol and Drug Abuse Patient Records regulations: The Federal rules restrict any use of the information to criminally investigate or prosecute any alcohol or drug abuse patient.[facility] HospitalIn the event this information is protected by the Federal Confidentiality of Alcohol and Drug Abuse Patient Records regulations: The Federal rules restrict any use of the information to criminally investigate or prosecute any alcohol or drug abuse patient.[facility] HospitalIn the event this information is protected by the Federal Confidentiality of Alcohol and Drug Abuse Patient Records regulations: The Federal rules restrict any use of the information to criminally investigate or prosecute any alcohol or drug abuse patient.[facility] HospitalIn the event this information is protected by the Federal Confidentiality of Alcohol and Drug Abuse Patient Records regulations: The Federal rules restrict any use of the information to criminally investigate or prosecute any alcohol or drug abuse patient.[facility] HospitalIn the event this information is protected by the Federal Confidentiality of Alcohol and Drug Abuse Patient Records regulations: The Federal rules restrict any use of the information to criminally investigate or prosecute any alcohol or drug abuse patient.[facility] HospitalIn the event this information is protected by the Federal Confidentiality of Alcohol and Drug Abuse Patient Records regulations: The Federal rules restrict any use of the information to criminally investigate or prosecute any alcohol or drug abuse patient.[facility] HospitalIn the event this information is protected by the Federal Confidentiality of Alcohol and Drug Abuse Patient Records regulations: The Federal rules restrict any use of the information to criminally investigate or prosecute any alcohol or drug abuse patient.[facility] HospitalIn the event this information is protected by the Federal Confidentiality of Alcohol and Drug Abuse Patient Records regulations: The Federal rules restrict any use of the information to criminally investigate or prosecute any alcohol or drug abuse patient.[facility] HospitalIn the event this information is protected by the Federal Confidentiality of Alcohol and Drug Abuse Patient Records regulations: The Federal rules restrict any use of the information to criminally investigate or prosecute any alcohol or drug abuse patient.[facility] HospitalIn the event this information is protected by the Federal Confidentiality of Alcohol and Drug Abuse Patient Records regulations: The Federal rules restrict any use of the information to criminally investigate or prosecute any alcohol or drug abuse patient.[facility] HospitalIn the event this information is protected by the Federal Confidentiality of Alcohol and Drug Abuse Patient Records regulations: The Federal rules restrict any use of the information to criminally investigate or prosecute any alcohol or drug abuse patient.[facility] HospitalIn the event this information is protected by the Federal Confidentiality of Alcohol and Drug Abuse Patient Records regulations: The Federal rules restrict any use of the information to criminally investigate or prosecute any alcohol or drug abuse patient.[facility] HospitalIn the event this information is protected by the Federal Confidentiality of Alcohol and Drug Abuse Patient Records regulations: The Federal rules restrict any use of the information to criminally investigate or prosecute any alcohol or drug abuse patient.[facility] HospitalIn the event this information is protected by the Federal Confidentiality of Alcohol and Drug Abuse Patient Records regulations: The Federal rules restrict any use of the information to criminally investigate or prosecute any alcohol or drug abuse patient.[facility] HospitalIn the event this information is protected by the Federal Confidentiality of Alcohol and Drug Abuse Patient Records regulations: The Federal rules restrict any use of the information to criminally investigate or prosecute any alcohol or drug abuse patient.[facility] HospitalIn the event this information is protected by the Federal Confidentiality of Alcohol and Drug Abuse Patient Records regulations: The Federal rules restrict any use of the information to criminally investigate or prosecute any alcohol or drug abuse patient.[facility] HospitalIn the event this information is protected by the Federal Confidentiality of Alcohol and Drug Abuse Patient Records regulations: The Federal rules restrict any use of the information to criminally investigate or prosecute any alcohol or drug abuse patient.[facility] Care Teams (unrecognized sec tion and content) Market Analysis Director Relationship Specialty Start Date End Date Chance Kolb MD [address] [place], [place] [id number] PCP - General Internal Medicine 08/01/10 Market Analysis Director Relationship Specialty Start Date End Date Chance Kolb MD [address] [place], [place] [id number] PCP - General Internal Medicine 08/01/10 Market Analysis Director Relationship Specialty Start Date End Date Chance Kolb MD [address] [place] [address], [place] [address] PCP - General Internal Medicine 08/01/10 Market Analysis Director Relationship Specialty Start Date End Date Chance Kolb MD [address] [place] [address], [place] [address] PCP - General Internal Medicine 08/01/10 Market Analysis Director Relationship Specialty Start Date End Date Chance Kolb MD [address] [place] [address], [place] [address] PCP - General Internal Medicine 08/01/10 Market Analysis Director Relationship Specialty Start Date End Date Chance Kolb MD [address] [place] [address], [place] [address] PCP - General Internal Medicine 08/01/10 Market Analysis Director Relationship Specialty Start Date End Date Chance Kolb MD [address] [place] [address], [place] [address] PCP - General Internal Medicine 08/01/10 Market Analysis Director Relationship Specialty Start Date End Date Chance Kolb MD [address] [place] [address], [place] [address] PCP - General Internal Medicine 08/01/10 Market Analysis Director Relationship Specialty Start Date End Date Chance Kolb MD [address] [place] [address], [place] [address] PCP - General Internal Medicine 08/01/10 Market Analysis Director Relationship Specialty Start Date End Date Chance Kolb MD [address] [place] [address], [place] [address] PCP - General Internal Medicine 08/01/10 Market Analysis Director Relationship Specialty Start Date End Date Chance Kolb MD [address] [place] [address], [place] [address] PCP - General Internal Medicine 08/01/10 Market Analysis Director Relationship Specialty Start Date End Date Chance Kolb MD [address] [place] [address] PCP - General Internal Medicine 08/01/10 Market Analysis Director Relationship Specialty Start Date End Date Chance Kolb MD [address] [place] [address] PCP - General Internal Medicine 08/01/10 Market Analysis Director Relationship Specialty Start Date End Date Chance Kolb MD [address] [place] [address], [place] [address] PCP - General Internal Medicine 08/01/10 Market Analysis Director Relationship Specialty Start Date End Date Chance Kolb MD [address] [place] [address], [place] [address] PCP - General Internal Medicine 08/01/10 Market Analysis Director Relationship Specialty Start Date End Date Chance Kolb MD [address] [place] [address], [place] [address] PCP - General Internal Medicine 08/01/10 Market Analysis Director Relationship Specialty Start Date End Date Chance Kolb MD [address] [place] [address], [place] [address] PCP - General Internal Medicine 08/01/10 Market Analysis Director Relationship Specialty Start Date End Date Chance Kolb MD [address] [place] [address], [place] [address] PCP - General Internal Medicine 08/01/10 Market Analysis Director Relationship Specialty Start Date End Date Chance Kolb MD [address] [place] [address], [place] [address] PCP - General Internal Medicine 08/01/10 Market Analysis Director Relationship Specialty Start Date End Date Chance Kolb MD [address] [place] [address] PCP - General Internal Medicine 08/01/10 Market Analysis Director Relationship Specialty Start Date End Date Chance Kolb MD [address] [place] [address] PCP - General Internal Medicine 08/01/10 Team Status: Active Member Role Status Dates Dr. Chance Kolb MD Family Provider Active Dr. Chance Kolb MD Primary Care Provider Active Team Status: Inactive Member Role Status Dates Dr. Chance Kolb MD Primary Care Provider Active Dr. Arjun Sarabia DO Emergency Provider Active Market Analysis Director Relationship Specialty Start Date End Date Chance Kolb MD [address] [place] [address] PCP - General Internal Medicine 08/01/10 Market Analysis Director Relationship Specialty Start Date End Date Chance Kolb MD [address] [place] [address] PCP - General Internal Medicine 08/01/10 Market Analysis Director Relationship Specialty Start Date End Date Chance Kolb MD [address] [place] [address] PCP - General Internal Medicine 08/01/10 Market Analysis Director Relationship Specialty Start Date End Date Chance Kolb MD [address] [place], [place] [address] PCP - General Internal Medicine 08/01/10 Market Analysis Director Relationship Specialty Start Date End Date Chance Kolb MD [address] [place], [place] [phone] PCP - General Internal Medicine 08/01/10 Market Analysis Director Relationship Specialty Start Date End Date Chance Kolb [address] [place] [address] PCP - General 07/31/16 Market Analysis Director Relationship Specialty Start Date End Date Chance Kolb [address] [place] [address] PCP - General 07/31/16 Market Analysis Director Relationship Specialty Start Date End Date Chance Kolb [address] [place] [address] PCP - General 07/31/16 Market Analysis Director Relationship Specialty Start Date End Date Chance Kolb [address] [place] [address] PCP - General 07/31/16 Market Analysis Director Relationship Specialty Start Date End Date Chance Kolb [address] [place] [address] PCP - General 07/31/16 Market Analysis Director Relationship Specialty Start Date End Date Chance Kolb [address] [place] [address] PCP - General 07/31/16 Market Analysis Director Relationship Specialty Start Date End Date Chance Kolb MD [address] [place] [address] PCP - General Internal Medicine 08/01/10 Market Analysis Director Relationship Specialty Start Date End Date Chance Kolb MD [address] [place] [address] PCP - General Internal Medicine 08/01/10 Market Analysis Director Relationship Specialty Start Date End Date Chance oKlb [address] [place] [address] PCP - General 07/31/16 Market Analysis Director Relationship Specialty Start Date End Date Chance Kolb [address] [place] [address] PCP - General 07/31/16 Market Analysis Director Relationship Specialty Start Date End Date Chance Kolb MD [address] [place] [address] PCP - General Internal Medicine 08/01/10 Market Analysis Director Relationship Specialty Start Date End Date Chance Kolb MD [address] [place] [address] PCP - General Internal Medicine 08/01/10 Market Analysis Director Relationship Specialty Start Date End Date Chance Kolb MD [address] [place] [address] PCP - General Internal Medicine 08/01/10 Market Analysis Director Relationship Specialty Start Date End Date Chance Kolb MD [address] [place] [address] PCP - General Internal Medicine 08/01/10 Market Analysis Director Relationship Specialty Start Date End Date Chance Kolb MD [address] [place] [address] PCP - General Internal Medicine 08/01/10 Market Analysis Director Relationship Specialty Start Date End Date Chance Kolb MD [address] [place] [address] PCP - General Internal Medicine 08/01/10 Market Analysis Director Relationship Specialty Start Date End Date Chance Kolb MD [address] [place] [address] PCP - General Internal Medicine 08/01/10 Market Analysis Director Relationship Specialty Start Date End Date Chance Kolb MD [address] [place] [address] PCP - General Internal Medicine 08/01/10 Market Analysis Director Relationship Specialty Start Date End Date Chance Kolb MD [address] [place] [address] PCP - General Internal Medicine 08/01/10 Market Analysis Director Relationship Specialty Start Date End Date Chance Kolb MD [address] [place] [address] PCP - General Internal Medicine 08/01/10 Market Analysis Director Relationship Specialty Start Date End Date Chance Kolb MD [address] [place] [address] PCP - General Internal Medicine 08/01/10 Market Analysis Director Relationship Specialty Start Date End Date Chance Kolb MD [address] [place] [address] PCP - General Internal Medicine 08/01/10 Market Analysis Director Relationship Specialty Start Date End Date Chance Kolb MD [address] [place] [address] PCP - General Internal Medicine 08/01/10 Market Analysis Director Relationship Specialty Start Date End Date Chance Kolb MD [address] [place] [address] PCP - General Internal Medicine 08/01/10 Market Analysis Director Relationship Specialty Start Date End Date Chance Kolb MD [address] [place] [address] PCP - General Internal Medicine 08/01/10 Market Analysis Director Relationship Specialty Start Date End Date Chance Kolb MD [address] [place] [address] PCP - General Internal Medicine 08/01/10 Market Analysis Director Relationship Specialty Start Date End Date Chance Kolb MD [address] [place] [address] PCP - General Internal Medicine 08/01/10 Nguyễn Stringer, FITNESS COACH.LEAD BURNER SUPERVISOR [address] [place] [address] Underground Truck Operator Internal Medicine 08/17/24 Malachi Lilly FITNESS COACH.DEALERSHIP MANAGER [address] [place] [address] Underground Truck Operator Internal Medicine 08/17/24 Market Analysis Director Relationship Specialty Start Date End Date Chance Kolb MD [address] [place] [address] PCP - General Internal Medicine 08/01/10 Nguyễn Stringer, FITNESS COACH.LEAD BURNER SUPERVISOR [address] [place] [address] Underground Truck Operator Internal Medicine 08/17/24 Malachi Lilly FITNESS COACH.DEALERSHIP MANAGER [address] [place], [place] [address] [facility] Internal Medicine 08/17/24 Market Analysis Director Relationship Specialty Start Date End Date Chance Kolb MD [address] [place], [place] [address]97[address] PCP - General Internal Medicine 08/01/10 Nguyễn Stringer, FITNESS COACH.LEAD BURNER SUPERVISOR [address] [place], [place] [address] [facility] Internal Medicine 08/17/24 Malachi Lilly FITNESS COACH.DEALERSHIP MANAGER [address] [place] [address] [facility] Internal Medicine 08/17/24 Market Analysis Director Relationship Specialty Start Date End Date Chance Kolb MD [address] [place] [address] PCP - General Internal Medicine 08/01/10 Malachi Lilly FITNESS COACH.DEALERSHIP MANAGER [address] [place] [address] Underground Truck Operator Internal Medicine 12/01/24 Nguyễn Stringer, FITNESS COACH.LEAD BURNER SUPERVISOR [address] [place] [address] [facility] Internal Medicine 01/27/25 Team Status: Active Member Role Status Dates Dr. Chance Kolb MD Primary Care Provider Active Team Status: Inactive Member Role Status Dates Dr. Chance Kolb MD Primary Care Provider Active Start: January 01, 2025 End: January 01, 2025 Dr. Crow Pathak DO Attending Provider Active Start : January 01, 2025 End: January 01, 2025 Dr. Crow Pathak DO Emergency Provider Active Start : January 01, 2025 End: January 01, 2025 Team Status: Inactive Member Role Status Dates Dr. Chance Kolb MD Primary Care Provider Active Start: January 06, 2025 End: January 06, 2025 Dr. Chance Kolb MD Referring Provider Active Start: January 06, 2025 End: January 06, 2025 Dr. Cedric Gibbons MD Attending Provider Active Start: January 06, 2025 End: January 06, 2025 Team Status: Active Member Role Status Dates Dr. Chance Kolb MD Primary Care Provider Active Start: January 06, 2025 Dr. Chance Kolb MD Referring Provider Active Start: January 06, 2025 Dr. Cedric Gibbons MD Attending Provider Active Start: January 06, 2025 Dr. Cedric Gibbons MD Other Provider Active Sta rt: January 06, 2025 Team Status: Active Member Role Status Dates Dr. Chance Kolb MD Primary Care Provider Active Start: January 13, 2025 Dr. Chance Kolb MD Referring Provider Active Start: January 13, 2025 Dr. Cedric Gibbons MD Attending Provider Active Start: January 13, 2025 Dr. Cedric Gibbons MD Other Provider Active Sta rt: January 13, 2025 Team Status: Active Member Role Status Dates Dr. Chance Kolb MD Primary Care Provider Active Start: January 19, 2025 Dr. Chance Kolb MD Referring Provider Active Start: January 19, 2025 Dr. Cedric Gibbons MD Attending Provider Active Start: January 19, 2025 Dr. Cedric Gibbons MD Other Provider Active Sta rt: January 19, 2025 Team Status: Inactive Member Role Status Dates Dr. Chance Kolb MD Primary Care Provider Active Start: February 02, 2025 End: February 06, 2025 Dr. Chance Kolb MD Referring Provider Active Start: February 02, 2025 End: February 06, 2025 Dr. Cedric Gibbons MD Attending Provider Active Start: February 02, 2025 End: February 06, 2025 Team Status: Active Member Role Status Dates Dr. Chance Kolb MD Primary Care Provider Active Start: February 02, 2025 Dr. Chance Kolb MD Referring Provider Active Start: February 02, 2025 Dr. Cedric Gibbons MD Attending Provider Active Start: February 02, 2025 Dr. Cedric Gibbons MD Other Provider Active Sta rt: February 02, 2025 Team Status: Active Member Role/Relationship Status Dates Dr. Chance Kolb MD Primary Care Provider Active Team Status: Inactive Member Role/Relationship Status Dates Dr. Chance Kolb MD Primary Care Provider Active Start: January 01, 2025 End: January 01, 2025 Dr. Crow Pathak DO Attending Provider Active Start : January 01, 2025 End: January 01, 2025 Dr. Crow Pathak DO Emergency Provider Active Start : January 01, 2025 End: January 01, 2025 Team Status: Inactive Member Role/Relationship Status Dates Dr. Chance Kolb MD Primary Care Provider Active Start: January 06, 2025 End: January 06, 2025 Dr. Chance Kolb MD Referring Provider Active Start: January 06, 2025 End: January 06, 2025 Dr. Cedric Gibbons MD Attending Provider Active Start: January 06, 2025 End: January 06, 2025 Team Status: Active Member Role/Relationship Status Dates Dr. Chance Kolb MD Primary Care Provider Active Start: January 06, 2025 Dr. Chance Kolb MD Referring Provider Active Start: January 06, 2025 Dr. Cedric Gibbons MD Attending Provider Active Start: January 06, 2025 Dr. Cedric Gibbons MD Other Provider Active Sta rt: January 06, 2025 Team Status: Active Member Role/Relationship Status Dates Dr. Chance Kolb MD Primary Care Provider Active Start: January 13, 2025 Dr. Chance Kolb MD Referring Provider Active Start: January 13, 2025 Dr. Cedric Gibbons MD Attending Provider Active Start: January 13, 2025 Dr. Cedric Gibbons MD Other Provider Active Sta rt: January 13, 2025 Team Status: Active Member Role/Relationship Status Dates Dr. Chance Kolb MD Primary Care Provider Active Start: January 19, 2025 Dr. Chance Kolb MD Referring Provider Active Start: January 19, 2025 Dr. Cedric Gibbons MD Attending Provider Active Start: January 19, 2025 Dr. Cedric Gibbons MD Other Provider Active Sta rt: January 19, 2025 Team Status: Inactive Member Role/Relationship Status Dates Dr. Chance Kolb MD Primary Care Provider Active Start: February 02, 2025 End: February 06, 2025 Dr. Chance Kolb MD Referring Provider Active Start: February 02, 2025 End: February 06, 2025 Dr. Cedric Gibbons MD Attending Provider Active Start: February 02, 2025 End: February 06, 2025 Team Status: Active Member Role/Relationship Status Dates Dr. Chance Kolb MD Primary Care Provider Active Start: February 02, 2025 Dr. Chance Kolb MD Referring Provider Active Start: February 02, 2025 Dr. Cedric Gibbons MD Attending Provider Active Start: February 02, 2025 Dr. Cedric Gibbons MD Other Provider Active Sta rt: February 02, 2025 Team Status: Active Member Role/Relationship Status Dates Dr. Chance Kolb MD Primary Care Provider Active Start: February 09, 2025 Dr. Chance Kolb MD Referring Provider Active Start: February 09, 2025 Dr. Cedric Gibbons MD Attending Provider Active Start: February 09, 2025 Dr. Cedric Gibbons MD Other Provider Active Sta rt: February 09, 2025 Team Status: Active Member Role/Relationship Status Dates Dr. Chance Kolb MD Primary Care Provider Active Start: February 16, 2025 Dr. Chance Kolb MD Referring Provider Active Start: February 16, 2025 Dr. Cedric Gibbons MD Attending Provider Active Start: February 16, 2025 Dr. Cedric Gibbons MD Other Provider Active Sta rt: February 16, 2025 Team Status: Active Member Role/Relationship Status Dates Dr. Chance Kolb MD Primary Care Provider Active Start: February 23, 2025 Dr. Chance Kolb MD Referring Provider Active Start: February 23, 2025 Dr. Cedric Gibbons MD Attending Provider Active Start: February 23, 2025 Dr. Cedric Gibbons MD Other Provider Active Sta rt: February 23, 2025 Team Status: Active Member Role/Relationship Status Dates Dr. Chance Kolb MD Primary Care Provider Active Start: March 02, 2025 Dr. Chance Kolb MD Referring Provider Active Start: March 02, 2025 Dr. Cedric Gibbons MD Attending Provider Active Start: March 02, 2025 Dr. Cedric Gibbons MD Other Provider Active Sta rt: March 02, 2025 Team Status: Inactive Member Role/Relationship Status Dates Dr. Chance oKlb MD Primary Care Provider Active Start: March 02, 2025 End: March 08, 2025 Dr. Chance Kolb MD Referring Provider Active Start: March 02, 2025 End: March 08, 2025 Dr. Cedric Gibbons MD Attending Provider Active Start: March 02, 2025 End: March 08, 2025 Team Status: Active Member Role/Relationship Status Dates Dr. Chance Kolb MD Primary Care Provider Active Start: March 09, 2025 Dr. Chance Kolb MD Referring Provider Active Start: March 09, 2025 Dr. Cedric Gibbons MD Attending Provider Active Start: March 09, 2025 Team Status: Active Member Role/Relationship Status Dates Dr. Chance Kolb MD Primary Care Provider Active Start: March 11, 2025 Dr. Chance Kolb MD Referring Provider Active Start: March 11, 2025 Dr. Cedric Gibbons MD Attending Provider Active Start: March 11, 2025 Dr. Cedric Gibbons MD Other Provider Active Sta rt: March 11, 2025 Team Status: Inactive Member Role/Relationship Status Dates Dr. Chance Kolb MD Primary Care Provider Active Start: March 13, 2025 End: March 13, 2025 Dr. Will Knapp DO Emergency Provider Active Start: March 13, 2025 End: March 13, 2025 Team Status: Active Member Role/Relationship Status Dates Dr. Chance Kolb MD Primary Care Provider Active Start: March 09, 2025 Dr. Chance Kolb MD Referring Provider Active Start: March 09, 2025 Dr. Cedric Gibbons MD Attending Provider Active Start: March 09, 2025 Dr. Cedric Gibbons MD Other Provider Active Sta rt: March 09, 2025 Team Status: Inactive Member Role/Relationship Status Dates Dr. Chance Kolb MD Primary Care Provider Active Start: March 18, 2025 End: March 18, 2025 Dr. Will Knapp DO Emergency Provider Active Start: March 18, 2025 End: March 18, 2025 Team Status: Active Member Role/Relationship Status Dates Dr. Chance Kolb MD Primary Care Provider Active Start: March 09, 2025 Dr. Chance Kolb MD Referring Provider Active Start: March 09, 2025 Dr. Cedric Gibbons MD Attending Provider Active Start: March 09, 2025 Dr. Cedric Gibbons MD Other Provider Active Sta rt: March 09, 2025 Team Status: Inactive Member Role/Relationship Status Dates Dr. Chance Kolb MD Primary Care Provider Active Start: March 13, 2025 End: March 13, 2025 Dr. Will Knapp DO Attending Provider Active Start: March 13, 2025 End: March 13, 2025 Dr. Will Knapp DO Emergency Provider Active Start: March 13, 2025 End: March 13, 2025 Team Status: Inactive Member Role/Relationship Status Dates Dr. Chance Kolb MD Primary Care Provider Active Start: March 18, 2025 End: March 18, 2025 Dr. Will Knapp DO Attending Provider Active Start: March 18, 2025 End: March 18, 2025 Dr. Will Knapp DO Emergency Provider Active Start: March 18, 2025 End: March 18, 2025 Team Status: Active Member Role/Relationship Status Dates Dr. Chance Kolb MD Primary Care Provider Active Start: March 23, 2025 Dr. Chance Kolb MD Referring Provider Active Start: March 23, 2025 Dr. Cedric Gibbons MD Attending Provider Active Start: March 23, 2025 Dr. Cedric Gibbons MD Other Provider Active Sta rt: March 23, 2025 Team Status: Inactive Member Role/Relationship Status Dates Dr. Chance Kolb MD Primary Care Provider Active Start: March 30, 2025 End: April 08, 2025 Dr. Chance Kolb MD Referring Provider Active Start: March 30, 2025 End: April 08, 2025 Dr. Cedric Gibbons MD Attending Provider Active Start: March 30, 2025 End: April 08, 2025 Team Status: Active Member Role/Relationship Status Dates Dr. Chance Kolb MD Primary Care Provider Active Start: April 01, 2025 Dr. Chance Kolb MD Referring Provider Active Start: April 01, 2025 Dr. Cedric Gibbons MD Attending Provider Active Start: April 01, 2025 Dr. Cedric Gibbons MD Other Provider Active Sta rt: April 01, 2025 Market Analysis Director Relationship Specialty Start Date End Date Chance Kolb MD [address] [facility], [place] [id number] PCP - General Internal Medicine 08/01/10 Malachi Lilly FITNESS COACH.DEALERSHIP MANAGER [address] [facility], [place] [id number] Underground [employer] Operator Internal Medicine 12/01/24 Nguyễn Stringer, FITNESS COACH.LEAD BURNER SUPERVISOR [address] [facility], [place] [id number] Underground Truck Operator Internal Medicine 01/27/25 Team Status: Active Member Role/Relationship Status Dates Dr. Chance Kolb MD Primary Care Provider Active Start: January 13, 2025 Dr. Chance Kolb MD Referring Provider Active Start: January 13, 2025 Dr. Cedric Gibbons MD Attending Provider Active Start: January 13, 2025 Dr. Cedric Gibbons MD Other Provider Active Sta rt: January 13, 2025 Team Status: Active Member Role/Relationship Status Dates Dr. Chance Kolb MD Primary Care Provider Active Start: January 19, 2025 Dr. Chance Kolb MD Referring Provider Active Start: January 19, 2025 Dr. Cedric Gibbons MD Attending Provider Active Start: January 19, 2025 Dr. Cedric Gibbons MD Other Provider Active Sta rt: January 19, 2025 Team Status: Inactive Member Role/Relationship Status Dates Dr. Chance Kolb MD Primary Care Provider Active Start: February 02, 2025 End: February 06, 2025 Dr. Chance Kolb MD Referring Provider Active Start: February 02, 2025 End: February 06, 2025 Dr. Cedric Gibbons MD Attending Provider Active Start: February 02, 2025 End: February 06, 2025 Team Status: Active Member Role/Relationship Status Dates Dr. Chance Kolb MD Primary Care Provider Active Start: February 02, 2025 Dr. Chance Kolb MD Referring Provider Active Start: February 02, 2025 Dr. Cedric Gibbons MD Attending Provider Active Start: February 02, 2025 Dr. Cedric Gibbons MD Other Provider Active Sta rt: February 02, 2025 Team Status: Active Member Role/Relationship Status Dates Dr. Chance Kolb MD Primary Care Provider Active Start: February 09, 2025 Dr. Chance Kolb MD Referring Provider Active Start: February 09, 2025 Dr. Cedric Gibbons MD Attending Provider Active Start: February 09, 2025 Dr. Cedric Gibbons MD Other Provider Active Sta rt: February 09, 2025 Team Status: Active Member Role/Relationship Status Dates Dr. Chance Kolb MD Primary Care Provider Active Start: February 16, 2025 Dr. Chance Kolb MD Referring Provider Active Start: February 16, 2025 Dr. Cedric Gibbons MD Attending Provider Active Start: February 16, 2025 Dr. Cedric Gibbons MD Other Provider Active Sta rt: February 16, 2025 Team Status: Active Member Role/Relationship Status Dates Dr. Chance Kolb MD Primary Care Provider Active Start: February 23, 2025 Dr. Chance Kolb MD Referring Provider Active Start: February 23, 2025 Dr. Cedric Gibbons MD Attending Provider Active Start: February 23, 2025 Dr. Cedric Gibbons MD Other Provider Active Sta rt: February 23, 2025 Team Status: Active Member Role/Relationship Status Dates Dr. Chance Kolb MD Primary Care Provider Active Start: March 02, 2025 Dr. Chance Kolb MD Referring Provider Active Start: March 02, 2025 Dr. Cedric Gibbons MD Attending Provider Active Start: March 02, 2025 Dr. Cedric Gibbons MD Other Provider Active Sta rt: March 02, 2025 Team Status: Inactive Member Role/Relationship Status Dates Dr. Chance Kolb MD Primary Care Provider Active Start: March 02, 2025 End: March 08, 2025 Dr. Chance Kolb MD Referring Provider Active Start: March 02, 2025 End: March 08, 2025 Dr. Cedric Gibbons MD Attending Provider Active Start: March 02, 2025 End: March 08, 2025 Team Status: Active Member Role/Relationship Status Dates Dr. Chance Kolb MD Primary Care Provider Active Start: March 09, 2025 Dr. Chance Kolb MD Referring Provider Active Start: March 09, 2025 Dr. Cedric Gibbons MD Attending Provider Active Start: March 09, 2025 Dr. Cedric Gibbons MD Other Provider Active Sta rt: March 09, 2025 Team Status: Inactive Member Role/Relationship Status Dates Dr. Chance Kolb MD Primary Care Provider Active Start: March 13, 2025 End: March 13, 2025 Dr. Will Knapp DO Attending Provider Active Start: March 13, 2025 End: March 13, 2025 Dr. Will Knapp DO Emergency Provider Active Start: March 13, 2025 End: March 13, 2025 Team Status: Inactive Member Role/Relationship Status Dates Dr. Chance Kolb MD Primary Care Provider Active Start: March 18, 2025 End: March 18, 2025 Dr. Will Knapp DO Attending Provider Active Start: March 18, 2025 End: March 18, 2025 Dr. Will Knapp DO Emergency Provider Active Start: March 18, 2025 End: March 18, 2025 Team Status: Active Member Role/Relationship Status Dates Dr. Chance Kolb MD Primary Care Provider Active Start: March 23, 2025 Dr. Chance Kolb MD Referring Provider Active Start: March 23, 2025 Dr. Cedric Gibbons MD Attending Provider Active Start: March 23, 2025 Dr. Cedric Gibbons MD Other Provider Active Sta rt: March 23, 2025 Team Status: Active Member Role/Relationship Status Dates Dr. Chance Kolb MD Primary Care Provider Active Start: March 30, 2025 Dr. Chance Kolb MD Referring Provider Active Start: March 30, 2025 Dr. Cedric Gibbons MD Attending Provider Active Start: March 30, 2025 Dr. Cedric Gibbons MD Other Provider Active Sta rt: March 30, 2025 Team Status: Inactive Member Role/Relationship Status Dates Dr. Chance Kolb MD Primary Care Provider Active Start: March 30, 2025 End: April 08, 2025 Dr. Chance Kolb MD Referring Provider Active Start: March 30, 2025 End: April 08, 2025 Dr. Cedric Gibbons MD Attending Provider Active Start: March 30, 2025 End: April 08, 2025 Team Status: Active Member Role/Relationship Status Dates Dr. Chance Kolb MD Primary Care Provider Active Start: April 20, 2025 Dr. Chance Kolb MD Referring Provider Active Start: April 20, 2025 Dr. Cedric Gibbons MD Attending Provider Active Start: April 20, 2025 Dr. Cedric Gibbons MD Other Provider Active Sta rt: April 20, 2025 Team Status: Inactive Member Role/Relationship Status Dates Dr. Chance Kolb MD Primary Care Provider Active Start: May 04, 2025 End: May 09, 2025 Dr. Chance Kolb MD Referring Provider Active Start: May 04, 2025 End: May 09, 2025 Dr. Cedric Gibbons MD Attending Provider Active Start: May 04, 2025 End: May 09, 2025 Team Status: Active Member Role/Relationship Status Dates Dr. Chance Kolb MD Primary Care Provider Active Start: May 09, 2025 Dr. Chance Kolb MD Referring Provider Active Start: May 09, 2025 Dr. Cedric Gibbons MD Attending Provider Active Start: May 09, 2025 Dr. Cedric Gibbons MD Other Provider Active Sta rt: May 09, 2025 Market Analysis Director Relationship Specialty Start Date End Date Chance Kolb MD [address] [place] [address] PCP - General Internal Medicine 08/01/10 Malachi Lilly, FITNESS COACH.DEALERSHIP MANAGER [address] [place] [address] Underground Truck Operator Internal Medicine 12/01/24 Nguyễn Stringer, FITNESS COACH.LEAD BURNER SUPERVISOR [address] [place] [address] Underground Truck Operator Internal Medicine 01/27/25 Team Status: Active Member Role/Relationship Status Dates Dr. Chance Kolb MD Primary care physician Active Team Status: Active Member Role/Relationship Status Dates Dr. Chance Kolb MD Primary care physician Active Start: February 09, 2025 Dr. Chance Kolb MD Referring Provider Active Start: February 09, 2025 Dr. Cedric Gibbons MD Attending physician Active Start: February 09, 2025 Dr. Cedric Gibbons MD Nurse Practitioner Active Start: February 09, 2025 Team Status: Active Member Role/Relationship Status Dates Dr. Chance Kolb MD Primary care physician Active Start: February 16, 2025 Dr. Chance Kolb MD Referring Provider Active Start: February 16, 2025 Dr. Cedric Gibbons MD Attending physician Active Start: February 16, 2025 Dr. Cedric Gibbons MD Nurse Practitioner Active Start: February 16, 2025 Team Status: Active Member Role/Relationship Status Dates Dr. Chance Kolb MD Primary care physician Active Start: February 23, 2025 Dr. Chance Kolb MD Referring Provider Active Start: February 23, 2025 Dr. Cedric Gibbons MD Attending physician Active Start: February 23, 2025 Dr. Cedric Gibbons MD Nurse Practitioner Active Start: February 23, 2025 Team Status: Active Member Role/Relationship Status Dates Dr. Chance Kolb MD Primary care physician Active Start: March 02, 2025 Dr. Chance Kolb MD Referring Provider Active Start: March 02, 2025 Dr. Cedric Gibbons MD Attending physician Active Start: March 02, 2025 Dr. Cedric Gibbons MD Nurse Practitioner Active Start: March 02, 2025 Team Status: Inactive Member Role/Relationship Status Dates Dr. Chance Kolb MD Primary care physician Active Start: March 02, 2025 End: March 08, 2025 Dr. Chance Kolb MD Referring Provider Active Start: March 02, 2025 End: March 08, 2025 Dr. Cedric Gibbons MD Attending physician Active Start: March 02, 2025 End: March 08, 2025 Team Status: Active Member Role/Relationship Status Dates Dr. Chance Kolb MD Primary care physician Active Start: March 09, 2025 Dr. Chance Kolb MD Referring Provider Active Start: March 09, 2025 Dr. Cedric Gibbons MD Attending physician Active Start: March 09, 2025 Dr. Cedric Gibbons MD Nurse Practitioner Active Start: March 09, 2025 Team Status: Inactive Member Role/Relationship Status Dates Dr. Chance Kolb MD Primary care physician Active Start: March 13, 2025 End: March 13, 2025 Dr. Will Knapp DO Attending physician Active Start: March 13, 2025 End: March 13, 2025 Dr. Will Knapp DO Emergency Department Physician A ctive Start: March 13, 2025 End: March 13, 2025 Team Status: Inactive Member Role/Relationship Status Dates Dr. Chance Kolb MD Primary care physician Active Start: March 18, 2025 End: March 18, 2025 Dr. Will Knapp DO Attending physician Active Start: March 18, 2025 End: March 18, 2025 Dr. Will Knapp DO Emergency Department Physician A ctive Start: March 18, 2025 End: March 18, 2025 Team Status: Active Member Role/Relationship Status Dates Dr. Chance Kolb MD Primary care physician Active Start: March 23, 2025 Dr. Chance Kolb MD Referring Provider Active Start: March 23, 2025 Dr. Cedric Gibbons MD Attending physician Active Start: March 23, 2025 Dr. Cedric Gibbons MD Nurse Practitioner Active Start: March 23, 2025 Team Status: Active Member Role/Relationship Status Dates Dr. Chance Kolb MD Primary care physician Active Start: March 30, 2025 Dr. Chance Kolb MD Referring Provider Active Start: March 30, 2025 Dr. Cedric Gibbons MD Attending physician Active Start: March 30, 2025 Dr. Cedric Gibbons MD Nurse Practitioner Active Start: March 30, 2025 Team Status: Inactive Member Role/Relationship Status Dates Dr. Chance Kolb MD Primary care physician Active Start: March 30, 2025 End: April 08, 2025 Dr. Chance Kolb MD Referring Provider Active Start: March 30, 2025 End: April 08, 2025 Dr. Cedric Gibbons MD Attending physician Active Start: March 30, 2025 End: April 08, 2025 Team Status: Active Member Role/Relationship Status Dates Dr. Chance Kolb MD Primary care physician Active Start: April 20, 2025 Dr. Chance Kolb MD Referring Provider Active Start: April 20, 2025 Dr. Cedric Gibbons MD Attending physician Active Start: April 20, 2025 Dr. Cedric Gibbons MD Nurse Practitioner Active Start: April 20, 2025 Team Status: Inactive Member Role/Relationship Status Dates Dr. Chance Kolb MD Primary care physician Active Start: May 04, 2025 End: May 09, 2025 Dr. Chance Kolb MD Referring Provider Active Start: May 04, 2025 End: May 09, 2025 Dr. Cedric Gibbons MD Attending physician Active Start: May 04, 2025 End: May 09, 2025 Team Status: Active Member Role/Relationship Status Dates Dr. Chance Kolb MD Primary care physician Active Start: May 04, 2025 Dr. Chance Kolb MD Referring Provider Active Start: May 04, 2025 Dr. Cedric Gibbons MD Attending physician Active Start: May 04, 2025 Dr. Cedric Gibbons MD Nurse Practitioner Active Start: May 04, 2025 Team Status: Inactive Member Role/Relationship Status Dates Dr. Chance Kolb MD Primary care physician Active Start: May 25, 2025 End: June 08, 2025 Dr. Chance Kolb MD Referring Provider Active Start: May 25, 2025 End: June 08, 2025 Dr. Cedric Gibbons MD Attending physician Active Start: May 25, 2025 End: June 08, 2025 Team Status: Active Member Role/Relationship Status Dates Dr. Chance Kolb MD Primary care physician Active Start: May 25, 2025 Dr. Chance Kolb MD Referring Provider Active Start: May 25, 2025 Dr. Cedric Gibbons MD Attending physician Active Start: May 25, 2025 Dr. Cedric Gibbons MD Nurse Practitioner Active Start: May 25, 2025 Reason for Visit (unrecogniz ed section and content) Reason Comments PT Discharge Specialty Diagnoses / Procedures Referred By Contac t Referred To Contact [facility] Diagnoses Gait instability Procedures CONSULT TO PHYSICAL THERAPY PHYSICAL THERAPY EVALUATION HIGH COMPLEX 45 MINS Chance Kolb MD [address] [place] [address] [facility] [address] [place] [id number] Referral ID Status Reason Start Date Expiration Date Visits Requested Visits Authorized [id number] Authorized PCP Requested Referral Auto-Generate d Referral 4 06/24/2025 99 99 Reason Comments Physical Therapy Reason Comments Established Patient 4 week post visit le ft 5th fx Reason Comments F/U 6 months Reason Comments Covid19 Concern asymptomatic exposur e x5 days Reason Comments Appointment Cancelled Reason Comments Yearly Exam Reason Comments Results Reason Comments Follow for [facility] Reason Comments Social Work Eval Order Reason Comments home health calling Reason Comments Patient Question Reason Comments Skillled Nursing Evaluation Reason Comments PT Update Reason Comments Home Health Update Reason Comments snf Plan of Care (continued) Reason Onset Date Comments Refill Request 10/17/2022 Reason Comments OT Update Reason Comments xray result Reason Onset Date Comments Refill Request 11/20/2022 Reason Onset Date Comments Refill Request 11/24/2022 Refill Request 11/27/2022 Reason Comments F/U 6 months Reason Comments Headaches states happens every day currently does not have headachetreats with Excedrin which does help Nausea happens after eating in am question if esphagus as she has a burning sensation.Going 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 Suture s need removed from a dog nail abrasion Reason Comments Urinary Frequency x 1 week Reason Comments New Patient Right thumb cyst Specialty Diagnoses / Procedures Referred By Contac t Referred To Contact Radiology Diagnoses Mass of finger of right hand Rupture of flexor pollicis longus muscle Procedures MR hand right wo IV contrast Thae Vail MD [address] [facility] [address] [place] [address] Referral ID Status Reason Start Date Expiration Date Visits Re quested Visits Authorized [id number] Closed 08/12/2023 08/11/2024 1 1 Specialty Diagnoses / Procedures Referred By Contac t Referred To Contact Radiology Diagnoses Mass of finger of right hand Rupture of flexor pollicis longus muscle Procedures MR wrist right wo IV contrast Thea Vail MD [address] [facility] [address] [place] [address] Referral ID Status Reason Start Date Expiration Date Visits Re quested Visits Authorized [id number] Closed 08/12/2023 08/11/2024 1 1 Reason Comments Follow-up Right hand MRI resul ts Reason Onset Date Comments Surgery Scheduling 08/29/2023 Reason Comments F/U 6 months Back Pain started after a fall on Saturday with a dull achy feeling. Reason Comments Follow-up Right hand pain Reason Comments Headache Reason Comments PT Eval Reason Comments UTI Reason Comments Follow Up urgent care - [facility] Reason Comments F/U 6 months Reason Onset Date Comments Refill Request 02/03/2025 Reason Comments ER F/U Reason Comments Medicare Wellness Exam Goals (unrecognized section and content) Goals may be documented in a n alternate sectionGoals may be documented in an alternate sectionGoals may be documented in an alternate sectionGoals may be documented in an alternate sectionGoals may be documented in an alternate sectionGoals may be documented in an alternate sectionGoals may be documented in an alternate sectionGoals may be documented in an alternate sectionGoals may be documented in an alternate sectionGoals may be documented in an alternate sectionGoals may be documented in an alternate section INFORMATION SOURCE (unrecogn ized section and content) DATE CREATED AUTHOR 01/10/2024 [facility] DATE CREATED AUTHOR AUTHOR'S ORGANIZ ATION 06/28/2025 [facility] DATE CREATED AUTHOR AUTHOR'S ORGANIZ ATION 07/15/2025 [facility] FOR RECORDS PERTAINING TO PATIENTS WHO ARE OR HAVE BEEN ENROLLED IN A CHEMICAL DEPENDENCY/SUBSTANCEABUSE PROGRAM, SOME INFORMATION MAY BE OMITTED. This clinical summary was aggregated from multiple sources. Caution should be exercised in using it in the provision of clinical care. This summary normalizes information from multiple sources, and as a consequence, information in this document may materially change the coding, format and clinical context of patient data. In addition, data may be omitted in some cases. CLINICAL DECISIONS SHOULD BE BASED ON THE PRIMARY CLINICAL RECORDS. [facility]. provides no warranty or guarantee of the accuracy or completeness of information in this document.
[2025-08-05 19:21] LABS: Hematocrit 46.7 % (37-47); Hemoglobin 15.1 g/dL (12.0-15.0); Immature Granulocytes Count 0.020 X10^3/uL (0.0-0.0); Mean Corp Hgb Conc 32.3 g/dL (32-36); Mean Corpuscular Volume 93.8 fL (81-99); Mean Platelet Vol. 9.1 fl (6.2-12.0); NRBC Flagged by Analyzer 0 % (0-5); Platelet Count 268 K/mm3 (150-450); RBC Distribution Width CV 13.0 % (11.6-14.6); RBC Distribution Width SD 44.8 fl (35.1-43.9); Red Blood Count 4.98 M/mm3 (4.2-5.4); White Blood Count 8.2 K/mm3 (4.4-11.0)
[2025-08-05 19:39] VITALS: BP 108/60; PULSE 92; RESP 16; TEMP 36.8; O2SAT 97
[2025-08-05 19:58] LABS: AST(SGOT) 19 U/L (<=31); Alanine Aminotransfer ALT/SGPT 17 U/L (<=34); Albumin, Serum 4.5 g/dL (3.4-4.8); Alkaline Phosphatase 57 U/L (35-104); Anion Gap 16 (5-15); BUN 11 mg/dL (4-19); BUN/Creat Ratio 12.1 RATIO (10-20); Calcium,Total 9.2 mg/dL (7.6-11.0); Carbon Dioxide 20.1 mmol/L (21.0-32.0); Chloride 108 mmol/L (98-108); Estimated Creatinine Clearance 35.35 ml/min (50-250); Globulin 2.8 g/dL (2.2-4.2); Glucose 112 mg/dL (70-99); Lipase 29 U/L (13-75); Potassium 3.1 mmol/L (3.3-5.1)
[2025-08-05] MEDS: 0.9% Normal Saline (500mL Bag) 500 ML 999 ML IV (20:00)
[2025-08-05 20:27] LABS: Mucous, Urine 0 SEEN /hpf (<or=2+)
--- NOTE | 2025-08-05 20:31 | CT_ITS ---
PROCEDURE: ABDOMEN/PELVIS W IV CONT ONLY 08/05/2025 REASON FOR EXAM: ABD PAIN, DIARRHEA, CROHN'S DISEASE TECHNIQUE: Procedure Code: [id number] Modality: CT Procedure: ABDOMEN/PELVIS W IV CONT ONLY Coronal and Sagittal reconstruction series were provided. CONTRAST: VOLUME: mL One or more dose reduction techniques were used (e.g., Automated exposure control, adjustment of the mA and/or kV according to patient size, use of iterative reconstruction technique. COMPARISON: CT dated 03/18/2025. FINDINGS: Small hiatal hernia. A large amount of stool and air are noted within the colon. Several prominent loops of small bowel are noted, measuring up to 4 cm in the left side of the abdomen. A low-grade partial small bowel obstruction can not be entirely excluded, however not favored. A short segment of thickened jejunum is noted within the left side of the abdomen (series 2 images 50 through 61), which could represent focal enteritis. The gallbladder is contracted. The liver, spleen, pancreas, adrenal glands, kidneys, and urinary bladder appear unremarkable. No intraperitoneal free air or free fluid. Mild chronic interstitial changes are noted within the lung bases. The heart is at the upper limit of normal in size. Moderate lumbar spondylosis. Chronic mild anterior wedging of the L4 vertebral body. Grade 1 retrolisthesis of L5 on S1. Old healed fracture of the right pubic symphysis. An intramedullary manny and cannulated screws are noted within the proximal right femur. CT/Abdomen/Pelvis W IV Cont ONLY IMPRESSION: Small hiatal hernia. Large amount of stool and air within the colon. A low-grade partial small bowel obstruction can not be entirely excluded, howev er not favored. Short segment of thickened jejunum in the left side of the abdomen could repres ent focal enteritis. Additional nonacute findings, as described above. Reading Location: [id number]
[2025-08-05 20:33] LABS: Color, Urine Yellow (Yellow); Glucose, Dipstick Normal (Normal); Ketone-Dipstick Negative (Negative); Leukocyte Esterase-Dipstick 25 /ul (Negative); Nitrite-Dipstick Positive (Negative); Occult Blood-Urine 50 /ul (Negative); Protein-Dipstick 30 mg/dl (Negative); Specific Gravity, Urine 1.020 (1.002-1.030); Urine Bilirubin Dipstick Negative (Negative)
[2025-08-05 20:48] LABS: Red Blood Cells-Urine 0-5 SEEN /hpf (0-5); Squamous Epithelial Cells - UA 0-5 SEEN /hpf (5-10)
[2025-08-05 21:00] VITALS: BP 95/57; PULSE 86; RESP 19; TEMP 36.8; O2SAT 95
[2025-08-05 21:12] LABS: Magnesium 2.0 mg/dL (1.5-2.2)
[2025-08-05] MEDS: Potassium Chloride Oral Soln 20 MEQ/15 ML UDC PO (21:27)
[2025-08-05 22:00] VITALS: BP 100/52; PULSE 85; RESP 12; TEMP 36.8; O2SAT 100
[2025-08-05 23:00] VITALS: BP 94/52; PULSE 82; RESP 18; TEMP 36.4; O2SAT 95
[2025-08-05] MEDS: 0.9% Normal Saline (1000mL) 1,000 ML 80 ML IV (23:27)
--- OUTSIDE RECORDS SUMMARY | 2025-08-05 23:42 | XMS RPT_ITS | CCD ---
Author Organization [facility] Care Team Providers Care Hearing Healthcare Practitioner Name Role Phone Chance Kolb MD Primary [...] Unavailable TALAMPAS, CHANCE, Primary Care Unavailable BACKER, LATTER DAY Referring Unavailable TALAMPAS, CHANCE, Primary Care Unavailable YARED, THEA Attending Unavailable TALAMPAS, CHANCE, Primary Care Unavailable Stringer AIR TWISTER WINDER.PEDIATRICIAN ACTIVE PRACTICE, Nguyễn Unavailable Vijaya AIR TWISTER WINDER.PROP DRAWER, Malachi Unavailable Vijaya AIR TWISTER WINDER.PROP DRAWER, Malachi Unavailable Stringer AIR TWISTER WINDER.PEDIATRICIAN ACTIVE PRACTICE, Nguyễn Unavailable Dr. Chance Kolb MD Primary Care Provider [phone] Zo MONIQUE, Dr. Maria Attending Provider Zo MONIQUE, Dr. Maria Emergency Provider Cortes BOWIE, Dr. Chance Worthington Referring Provider Edwige BOWIE, Dr. Cedric Samuel Attending Provider Edwige BOWIE, Dr. Cedric Samuel Other Provider Ra MONIQUE, Dr. Solis Emergency Provider Ra MONIQUE, Dr. Solis Attending Provider Cortes BOWIE, Dr. Chance Worthington Primary Care Provider [phone] Cortes BOWIE, Dr. Chance Worthington Referring Provider Edwige BOWIE, Dr. Cedric Samuel Attending Provider Edwige BOWIE, Dr. Cedirc Samuel Other Provider Cortes BOWIE, Dr. Chance [...] oxyCODONE; Translations: [OXYCODONE-ACETAM INOPHEN] Drug Allergy 5 [facility] (20 sources) Codeine; Translations: [CODEINE] Drug Allergy 5 Nausea, Nausea & dizziness [facility] Work Phone: (13 sources) oxyCODONE; Translations: [oxycodone HCl] Drug Allergy 2 Nausea, Nausea & dizziness [facility] (19 sources) oxyCODONE Drug Allergy 7 Other [facility] Comment on above: unknown (7 sources) Acetaminophen Drug Allergy 5 Other [facility] Comment on above: unknown (1 source) Acetaminophen Drug Allergy 5 [facility] Repository (1 source) Codeine Drug Allergy 5 [facility] (1 source) oxyCODONE Drug Allergy 5 [facility] Medications Current Medications Medication Drug Class(es) [...] by mouth daily at bedtime. bacillus coagulans [id number] unt / inulin 250 mg oral capsule (12 sources) Start: 016 take 1 capsule by mouth once daily bifidobacterium animalis [id number] unt / lactobacillus acidophilus [id number] unt oral capsule (12 sources) Probiotic Produc [...] mg oral capsule (12 sources) Krill Oil ([place]-3) 500 MG capsule Take by mouth. 0 [...] Comment on above: Take 2 capsules by [facility] twice daily. (Dr. Swan--GI) Take 1 capsule [...] (3 sources) Patient encounter status; Translations: [Other terminal carman (current) drug therapy] Episodic Other aftercare (1 source) Long-term current use of mesalamine; Translations: [Other terminal carman (current) drug therapy] Episodic Other aftercare (2 sources) Removal of sutures done; Translations: [Encounter for removal of sutures] 05-06-2023 Episodic Other aftercare (1 source) Long-term current use of drug therapy; Translations: [Other terminal carman (current) drug therapy] 06-24-2024 Episodic Other bone [...] nutritional; endocrine; and metabolic disorders (20 sources) Rqdw-txbj-ioheozorxusv patrice; Translations: [Lipoprotein deficiency] Onset: 4 12-08-2015 [...] 01-29-2025 Episodic Other aftercare (1 source) Other terminal carman (current) drug therapy; Translations: [Encounter for long-term [...] Basophils (Bld) [#/Vol] 0.05 10*3/uL Normal <0.11 [facility] Comment on above: Order Comment: Speci men Type: BLOOD SPECIMEN Ordering Facility: [facility] Address: [address] [place] [address] Performed By: #### 2 4321-2 #### [facility] CLIA [id number] [address] [place] [address] [place] Basophils/100 WBC (Bld) 0.5 % Normal [facility] Comment on above: Order Comment: Speci men Type: BLOOD SPECIMEN Ordering Facility: [facility] Address: [address] [place] [address] Performed By: #### 2 4321-2 #### [facility] CLIA [id number] [address] [place] [address] [place] Differential cell count method Nom (Bld) Auto Normal [facility] Comment on above: Order Comment: Speci men Type: BLOOD SPECIMEN Ordering Facility: [facility] Address: [address] [place] [address] Performed By: #### 2 4321-2 #### [facility] CLIA [id number] [address] [place] [address] [place] Eosinophils (Bld) [#/Vol] 0.03 10*3/uL Normal <0.46 [facility] Comment on above: Order Comment: Speci men Type: BLOOD SPECIMEN Ordering Facility: [facility] Address: [address] [place] [address] Performed By: #### 2 4321-2 #### [facility] CLIA [id number] [address] [place] [address] [place] Eosinophils/100 WBC (Bld) 0.3 % Normal [facility] Comment on above: Order Comment: Speci men Type: BLOOD SPECIMEN Ordering Facility: [facility] Address: [address] [place] [address] Performed By: #### 2 4321-2 #### [facility] CLIA [id number] [address] [place] [address] [place] Erythrocyte distribution width (RBC) [Ratio] 13.2 % Normal 11.5-15.0 [facility] Comment on above: Order Comment: Speci men Type: BLOOD SPECIMEN Ordering Facility: [facility] Address: [address] [place] [address] Performed By: #### 2 4321-2 #### [facility] CLIA [id number] [address] [place] [address] [place] Hematocrit (Bld) [Volume fraction] 49.5 % High 36.0-46.0 [facility] Comment on above: Order Comment: Speci men Type: BLOOD SPECIMEN Ordering Facility: [facility] Address: [address] [place] [address] Performed By: #### 2 4321-2 #### [facility] CLIA [id number] [address] [place] [address] [place] Hemoglobin (Bld) [Mass/Vol] 16.6 g/dL High 11.5-15.5 [facility] Comment on above: Order Comment: Speci men Type: BLOOD SPECIMEN Ordering Facility: [facility] Address: [address] [place] [address] Performed By: #### 2 4321-2 #### [facility] CLIA [id number] [address] [place] [address] [place] Immature granulocytes (Bld) [#/Vol] 10*3/uL Normal <0.10 [facility] Comment on above: Order Comment: Speci men Type: BLOOD SPECIMEN Ordering Facility: [facility] Address: [address] [place] [address] Performed By: #### 2 4321-2 #### [facility] CLIA [id number] [address] [place] [id number] [address] [place] Immature granulocytes/100 WBC (Bld) 0.2 % Normal [facility] Comment on above: Order Comment: Speci men Type: BLOOD SPECIMEN Ordering Facility: [facility] Address: [address] [place] [address] Performed By: #### 2 4321-2 #### [facility] CLIA [id number] [address] [place] [address] [place] Lymphocytes (Bld) [#/Vol] 1.03 10*3/uL Normal 1.00-4.00 [facility] Comment on above: Order Comment: Speci men Type: BLOOD SPECIMEN Ordering Facility: [facility] Address: [address] [place] [address] Performed By: #### 2 4321-2 #### [facility] CLIA [id number] [address] [place] [address] [place] Lymphocytes/100 WBC (Bld) 10.1 % Normal [facility] Comment on above: Order Comment: Speci men Type: BLOOD SPECIMEN Ordering Facility: [facility] Address: [address] [place] [address] Performed By: #### 2 4321-2 #### [facility] CLIA [id number] [address] [place] [address] [place] MCH (RBC) [Entitic mass] 31.1 pg Normal 26.0-34.0 [facility] Comment on above: Order Comment: Speci men Type: BLOOD SPECIMEN Ordering Facility: [facility] Address: [address] [place] [address] Performed By: #### 2 4321-2 #### [facility] CLIA [id number] [address] [place] [address] [place] MCHC (RBC) [Mass/Vol] 33.5 g/dL Normal 30.5-36.0 [facility] Comment on above: Order Comment: Speci men Type: BLOOD SPECIMEN Ordering Facility: [facility] Address: [address] [place] [address] Performed By: #### 2 4321-2 #### [facility] CLIA [id number] [address] [place] [address] [place] MCV (RBC) [Entitic vol] 92.7 fL Normal 80.0-100.0 [facility] Comment on above: Order Comment: Speci men Type: BLOOD SPECIMEN Ordering Facility: [facility] Address: [address] [place] [address] Performed By: #### 2 4321-2 #### [facility] CLIA [id number] [address] [place] [address] [place] Monocytes (Bld) [#/Vol] 0.57 10*3/uL Normal <0.87 [facility] Comment on above: Order Comment: Speci men Type: BLOOD SPECIMEN Ordering Facility: [facility] Address: [address] [place] [address] Performed By: #### 2 4321-2 #### [facility] CLIA [id number] [address] [place] [address] [place] Monocytes/100 WBC (Bld) 5.6 % Normal [facility] Comment on above: Order Comment: Speci men Type: BLOOD SPECIMEN Ordering Facility: [facility] Address: [address] [place] [address] Performed By: #### 2 4321-2 #### [facility] CLIA [id number] [address] [place] [address] [place] Neutrophils (Bld) [#/Vol] 8.47 10*3/uL High 1.45-7.50 [facility] Comment on above: Order Comment: Speci men Type: BLOOD SPECIMEN Ordering Facility: [facility] Address: [address] [place] [address] Performed By: #### 2 4321-2 #### [facility] CLIA [id number] [address] [place], [place] [address] [place] Neutrophils/100 WBC (Bld) 83.3 % Normal [facility] Comment on above: Order Comment: Speci men Type: BLOOD SPECIMEN Ordering Facility: [facility] Address: [address] [place] [address] Performed By: #### 2 4321-2 #### [facility] CLIA [id number] [address] [place] [address] [place] Nucleated RBC (Bld) [#/Vol] 10*3/uL Normal <0.01 [facility] Comment on above: Order Comment: Speci men Type: BLOOD SPECIMEN Ordering Facility: [facility] Address: [address] [place] [address] Performed By: #### 2 4321-2 #### [facility] CLIA [id number] [address] [place] [address] [place] Nucleated RBC/100 WBC (Bld) [Ratio] 0.0 /100 WBC Normal [facility] Comment on above: Order Comment: Speci men Type: BLOOD SPECIMEN Ordering Facility: [facility] Address: [address] [place] [address] Performed By: #### 2 4321-2 #### [facility] CLIA [id number] [address] [place] [address] [place] Platelet mean volume (Bld) [Entitic vol] 10.1 fL Normal 9.0-12.7 [facility] Comment on above: Order Comment: Speci men Type: BLOOD SPECIMEN Ordering Facility: [facility] Address: [address] [place] [address] Performed By: #### 2 4321-2 #### [facility] CLIA [id number] [address] [place] [address] [place] Platelets (Bld) [#/Vol] 237 10*3/uL Normal 150-400 [facility] Comment on above: Order Comment: Speci men Type: BLOOD SPECIMEN Ordering Facility: [facility] Address: [address] [place] [address] Performed By: #### 2 4321-2 #### [facility] CLIA [id number] [address] [place] [address] [place] RBC (Bld) [#/Vol] 5.34 10*6/uL High 3.90-5.20 [facility] Comment on above: Order Comment: Speci men Type: BLOOD SPECIMEN Ordering Facility: [facility] Address: [address] [place] [address] Performed By: #### 2 4321-2 #### [facility] CLIA [id number] [address] [place] [address] [place] WBC (Bld) [#/Vol] 10.17 10*3/uL Normal 3.70-11.00 [facility] Comment on above: Order Comment: Speci men Type: BLOOD SPECIMEN Ordering Facility: [facility] Address: [address] [place] [address] Performed By: #### 2 4321-2 #### [facility] CLIA [id number] [address] [place] [address] [place] CRP SerPl-mCncon 06-23-2025 CRP [Mass/Vol] mg/L Normal <0.9 [facility] Comment on above: Order Comment: Speci men Type: BLOOD SPECIMEN Ordering Facility: [facility] Address: [address] [place] [address] Performed By: #### 2 4321-2 #### [facility] CLIA [id number] [address] [place] [address] [place] Comprehensive metabolic 2000 panelon 06-23-2025 Albumin [Mass/Vol] 4.7 g/dL Normal 3.9-4.9 [facility] Comment on above: Order Comment: Speci men Type: BLOOD SPECIMEN Ordering Facility: [facility] Address: [address] [place] [address] Performed By: #### 2 4321-2 #### [facility] CLIA [id number] [address] [place] [id number] [place] ALP [Catalytic activity/Vol] 46 U/L Normal 34-123 [facility] Comment on above: Order Comment: Speci men Type: BLOOD SPECIMEN Ordering Facility: [facility] Address: [address] [place] [address] Performed By: #### 2 4321-2 #### [facility] CLIA [id number] [address] [place], [place] [address] [place] ALT [Catalytic activity/Vol] 21 U/L Normal 7-38 [facility] Comment on above: Order Comment: Speci men Type: BLOOD SPECIMEN Ordering Facility: [facility] Address: [address] [place] [address] Performed By: #### 2 4321-2 #### [facility] CLIA [id number] [address] [place], [place] [address] [place] Anion gap [Moles/Vol] 15 mmol/L Normal 8-15 [facility] Comment on above: Order Comment: Speci men Type: BLOOD SPECIMEN Ordering Facility: [facility] Address: [address] [place] [address] Performed By: #### 2 4321-2 #### [facility] CLIA [id number] [address] [place], [place] [address] [place] AST [Catalytic activity/Vol] 22 U/L Normal 13-35 [facility] Comment on above: Order Comment: Speci men Type: BLOOD SPECIMEN Ordering Facility: [facility] Address: [address] [place], [place] [address] Performed By: #### 2 4321-2 #### [facility] CLIA [id number] [address] [place], [place] [address] [place] Bilirubin [Mass/Vol] 0.3 mg/dL Normal 0.2-1.3 [facility] Comment on above: Order Comment: Speci men Type: BLOOD SPECIMEN Ordering Facility: [facility] Address: [address] [place] [address] Performed By: #### 2 4321-2 #### [facility] CLIA [id number] [address] [place] [address] [place] Calcium [Mass/Vol] 9.7 mg/dL Normal 8.5-10.2 [facility] Comment on above: Order Comment: Speci men Type: BLOOD SPECIMEN Ordering Facility: [facility] Address: [address] [place] [address] Performed By: #### 2 4321-2 #### [facility] CLIA [id number] [address] [place] [address] [place] Chloride [Moles/Vol] 105 mmol/L Normal 98-107 [facility] Comment on above: Order Comment: Speci men Type: BLOOD SPECIMEN Ordering Facility: [facility] Address: [address] [place] [address] Performed By: #### 2 4321-2 #### [facility] CLIA [id number] [address] [place] [address] [place] CO2 [Moles/Vol] 19 mmol/L Low 22-30 [facility] Comment on above: Order Comment: Speci men Type: BLOOD SPECIMEN Ordering Facility: [facility] Address: [address] [place] [address] Performed By: #### 2 4321-2 #### [facility] CLIA [id number] [address] [place] [address] [place] Creatinine [Mass/Vol] 0.89 mg/dL Normal 0.58-0.96 [facility] Comment on above: Order Comment: Speci men Type: BLOOD SPECIMEN Ordering Facility: [facility] Address: [address] [place] [address] Performed By: #### 2 4321-2 #### [facility] CLIA [id number] [address] [place] [address] [place] eGFRcr SerPlBld CKD-EPI 2020 68 mL/min/1.73m??? Normal >=60 [facility] Comment on above: Order Comment: Alejandra martin Type: BLOOD SPECIMEN Ordering Facility: [facility] Address: [address] [place] [address] Result Comment: Maryjane mated Glomerular Filtration Rate [...] GFR. Performed By: #### 2 4321-2 #### [facility] CLIA [id number] [address] [place] [address] [place] Glucose [Mass/Vol] 105 mg/dL High 74-99 [facility] Comment on above: Order Comment: Alejandra martin Type: BLOOD SPECIMEN Ordering Facility: [facility] Address: [address] [place] [address] Result Comment: The [place] [employer] (ADA) provides guidance for cutoff [...] Standards of Medical Care in Diabetes 2016, [place] [employer]. Diabetes Care. 2016.39(Suppl 1). Performed By: #### 2 4321-2 #### [facility] CLIA [id number] [address] [place], [place] [address] [place] Potassium [Moles/Vol] 3.9 mmol/L Normal 3.7-5.1 [facility] Comment on above: Order Comment: Speci men Type: BLOOD SPECIMEN Ordering Facility: [facility] Address: [address] [place] [address] Performed By: #### 2 4321-2 #### [facility] CLIA [id number] [address] [place] [address] [place] Protein [Mass/Vol] 7.5 g/dL Normal 6.3-8.0 [facility] Comment on above: Order Comment: Speci men Type: BLOOD SPECIMEN Ordering Facility: [facility] Address: [address] [place] [address] Performed By: #### 2 4321-2 #### [facility] CLIA [id number] [address] [place] [address] [place] Sodium [Moles/Vol] 139 mmol/L Normal 136-144 [facility] Comment on above: Order Comment: Speci men Type: BLOOD SPECIMEN Ordering Facility: [facility] Address: [address] [place] [address] Performed By: #### 2 4321-2 #### [facility] CLIA [id number] [address] [place] [address] [place] Urea nitrogen [Mass/Vol] 17 mg/dL Normal 7-21 [facility] Comment on above: Order Comment: Speci men Type: BLOOD SPECIMEN Ordering Facility: [facility] Address: [address] [place] [address] Performed By: #### 2 4321-2 #### [facility] CLIA [id number] [address] [place] [address] [place] CNCOon 06-21-2025 CNCO Letter Text Normal [facility] W[facility] Ctr History AND Physic vanessa 05-26-2025 Wound Ctr History & Physical [facility] [address] [place] [address] H P Exam - Wound Care 05/26/25 1349 MR#: [id number] Acct: [id number] Name: GERALDINE HAIRSTON Rep #: [id number] : 1950 74 From: Cedric Gibbons MD [...] of her injury, she presented to the [facility] Emergency Department, where she was found to [...] her age, though has a history of pqkm-pnav-shaocgcmypythl a, GERD, hypertension, hypothyroidism, and osteoporosis. She [...] remained a patient at the Wound Center. [facility] Medical History Non-pressure chronic ulcer of [...] use ty (more content not included)... Normal [facility] SCREENINGon 05-24-2025 [facility] SCREENING * * *Final Report* * * DATE OF EXAM: May 24 2025 2:19PM [facility] 0581 - [facility] SCREENING / PROCEDURE REASON: Encounter for screening mammogram for malignant neoplasm of breast * * * * Physician Interpretation * * * * RESULT: [place] [address] #[id number] - [facility] SCREENING HISTORY: 74 year-old patient presents for [...] Cheryl Mcneal M.D. Electronically signed on: 05/26/2025 Band Saw Operator: AMALIA Transcribe Date/Time: May 24 2025 1:49P Dictated by: CHERYL MCNEAL MD This examination was interpreted and the report reviewed and electronically signed by: CHERYL MCNEAL MD on May 26 2025 5:26AM EST [id number] Normal [facility] Ctr History AND Physic vanessa 05-09-2025 Wound Ctr History & Physical [facility] [address] [place] [address] H P Exam - Wound Care 05/09/25 1703 MR#: [id number] Acct: [id number] Name: GERALDINE HAIRSTON Rep #: [id number] : 1950 74 From: Cedric Gibbons MD [...] of her injury, she presented to the [facility] Emergency Department, where she was found to [...] her age, though has a history of bdoq-svnh-gezszghhaxspuh a, GERD, hypertension, hypothyroidism, and osteoporosis. She [...] remains a patient at the Wound Center. [facility] Medical History Non-pressure chronic ulcer of [...] substance use typ (more content not included)... [facility] -------- YOVANNYGERALDINE Elin ([id number]) 1950 F Date Time Provider Department 05/04/25 3:20 PM NGUYỄN STRINGER During your visit today, we recorded the following information about you: Pulse Respiration Blood pressure Weight 94/minute 16/minute 102/54 41.4 kg Height 1.42 m Nguyễn Stringer, MIMI.PEDIATRICIAN ACTIVE PRACTICE 05/04/2025 12:39 PM Signed Screening schedule The [...] review all the medicines you take, even xqwj-bdc-rhjcxov medicines. As you get older, the way [...] you have certain medical conditions. Nguyễn Stringer, MIMI.PEDIATRICIAN ACTIVE PRACTICE 05/04/2025 3:17 PM Signed Geraldine Hairston is [...] in the medical record. Dr. Alin Altamirano Clip Riveter Dr. Thom Swan at [facility] follow up. Medical/Family history review Reviewed [...] 21 mg/dL (more content not included)... Normal [facility] 25(OH)D3 SerPl-mCncon 2024 25-hydroxyvitamin D3 [Mass/Vol] 77.2 ng/mL Normal 31.0-80.0 [facility] Comment on above: Order Comment: Speci men Type: BLOOD SPECIMEN Ordering Facility: [facility] Address: [address] [place] [address] Result Comment: Clas sification of 25 [place] Vitamin D status: Deficiency/Insufficiency: < or = 30 ng/ml. Sufficiency/Optimal Levels: 31-80 ng/mL Toxicity: > 100 ng/mL. Test performed by chemiluminescent immunoassay. Performed By: #### 2 4321-2 #### [facility] CLIA [id number] [address] [place] [address] [place] Basic metabolic 2000 panelon 04-29-2025 Anion gap [Moles/Vol] 13 mmol/L Normal 8-15 [facility] Comment on above: Order Comment: Alejandra martin Type: BLOOD SPECIMEN Ordering Facility: [facility] Address: [address] [place] [address] Performed By: #### 2 4321-2 #### [facility] CLIA [id number] [address] [place] [address] [place] Calcium [Mass/Vol] 9.1 mg/dL Normal 8.5-10.2 [facility] Comment on above: Order Comment: Speci men Type: BLOOD SPECIMEN Ordering Facility: [facility] Address: [address] [place], [place] [address] Performed By: #### 2 4321-2 #### [facility] CLIA [id number] [address] [place], [place] [address] [place] Chloride [Moles/Vol] 107 mmol/L Normal 98-107 [facility] Comment on above: Order Comment: Speci men Type: BLOOD SPECIMEN Ordering Facility: [facility] Address: [address] [place] [address] Performed By: #### 2 4321-2 #### [facility] CLIA [id number] [address] [place] [address] [place] CO2 [Moles/Vol] 22 mmol/L Normal 22-30 [facility] Comment on above: Order Comment: Speci men Type: BLOOD SPECIMEN Ordering Facility: [facility] Address: [address] [place] [address] Performed By: #### 2 4321-2 #### [facility] CLIA [id number] [address] [place] [address] [place] Creatinine [Mass/Vol] 0.89 mg/dL Normal 0.58-0.96 [facility] Comment on above: Order Comment: Speci men Type: BLOOD SPECIMEN Ordering Facility: [facility] Address: [address] [place], [place] [address] Performed By: #### 2 4321-2 #### [facility] CLIA [id number] [address] [place] [address] [place] eGFRcr SerPlBld CKD-EPI 2020 68 mL/min/1.73m??? Normal >=60 [facility] Comment on above: Order Comment: Speci men Type: BLOOD SPECIMEN Ordering Facility: [facility] Address: [address] [place], [place] [address] Result Comment: Maryjane mated Glomerular Filtration Rate [...] GFR. Performed By: #### 2 4321-2 #### [facility] CLIA [id number] [address] [place] [address] [place] Glucose [Mass/Vol] 144 mg/dL High 74-99 [facility] Comment on above: Order Comment: Alejandra martin Type: BLOOD SPECIMEN Ordering Facility: [facility] Address: [address] [place] [address] Result Comment: The [place] [employer] (ADA) provides guidance for cutoff [...] Standards of Medical Care in Diabetes 2016, [place] [employer]. Diabetes Care. 2016.39(Suppl 1). Performed By: #### 2 4321-2 #### [facility] CLIA [id number] [address] [place] [address] [place] Potassium [Moles/Vol] 4.0 mmol/L Normal 3.7-5.1 [facility] Comment on above: Order Comment: Alejandra martin Type: BLOOD SPECIMEN Ordering Facility: [facility] Address: [address] [place] [address] Performed By: #### 2 4321-2 #### [facility] CLIA [id number] [address] [place] [address] [place] Sodium [Moles/Vol] 142 mmol/L Normal 136-144 [facility] Comment on above: Order Comment: Speci men Type: BLOOD SPECIMEN Ordering Facility: [facility] Address: [address] [place] [address] Performed By: #### 2 4321-2 #### [facility] CLIA [id number] [address] [place] [address] [place] Urea nitrogen [Mass/Vol] 19 mg/dL Normal 7-21 [facility] Comment on above: Order Comment: Speci men Type: BLOOD SPECIMEN Ordering Facility: [facility] Address: [address] [place] [address] Performed By: #### 2 4321-2 #### [facility] CLIA [id number] [address] [place] [address] [place] Wound Ctr History AND Physic vanessa 04-21-2025 Wound Ctr History & Physical [facility] [address] [place] [address] H P Exam - Wound Care 04/21/25 1750 MR#: [id number] Acct: [id number] Name: GERALDINE HAIRSTON Rep #: [id number] : 1950 74 From: Cedric Gibbons MD PCP: Dr. Chance Kolb MD Status:[facility] Location: History of Present Illness Date of Service: 04/20/25 Chief Complaint: Traumatic avulsion injury of the right medial calf History of Wound: This is a 74-year-old female who sustained a traumatic injury to her left medial calf on January 01, 2025. At the time of her injury, she presented to the [facility] Emergency Department, where she was found to [...] her age, though has a history of jcnj-kkmw-boetebpeeniscb a, GERD, hypertension, hypothyroidism, and osteoporosis. She [...] remains a patient at the Wound Center. [facility] Medical History Non-pressure chronic ulcer of [...] use typ (more content not included)... Normal [facility] Wound Ctr History AND Physic vanessa 04-01-2025 Wound Ctr History & Physical [facility] [address] [place] [address] H P Exam - Wound Care 04/01/25 1135 MR#: [id number] Acct: [id number] Name: GERALDINE HAIRSTON Rep #: [id number] : 1950 74 From: Cedric Gibbons MD [...] of her injury, she presented to the [facility] Emergency Department, where she was found to [...] her age, though has a history of tqun-iwaw-jcafwzwnwtjyrj a, GERD, hypertension, hypothyroidism, and osteoporosis. She denies a history of diabetes mellitus, myocardial infarction, cerebrovascular accident, renal disease, and pulmonary disease. Her BMI is 19.5. She is . [facility] Medical History Non-pressure chronic ulcer of [...] Appearance: cooperat (more content not included)... Normal [facility] Wound Ctr History AND Physic vanessa 03-27-2025 Wound Ctr History & Physical [facility] [address] [place] [address] H P Exam - Wound Care 03/27/25 1730 MR#: [id number] Acct: [id number] Name: GERALDINE HAIRSTON Rep #: [id number] : 1950 74 From: Cedric Gibbons MD [...] of her injury, she presented to the [facility] Emergency Department, where she was found to [...] her age, though has a history of zivy-zekz-dpapeoebyukawt a, GERD, hypertension, hypothyroidism, and osteoporosis. She denies a history of diabetes mellitus, myocardial infarction, cerebrovascular accident, renal disease, and pulmonary disease. Her BMI is 19.5. She is . [facility] Medical History Non-pressure chronic ulcer of [...] cooperative, comfortable (more content not included)... Normal [facility] CNOVon 03-22-2025 CNOV Office Visit (INTMWS ) -------- GERALDINE HAIRSTON ([id number]) 1950 F Date Time Provider Department 03/22/25 9:40 AM NGUYỄN STRINGERMROSIE During your visit today, we recorded the following information about you: Pulse Respiration Blood pressure Weight 74/minute 16/minute 100/58 43.5 kg Nguyễn Stringer, MIMI.PEDIATRICIAN ACTIVE PRACTICE 03/22/2025 10:28 AM Signed Subjective Patient ID: Geraldine is a 74 year old female who presents for ER F/U. HPI Presents for an ER follow-up visit. She was seen at [facility] on March 13 and March 18, 2025. She was seen in ER on March 13, 2025 for laceration attributed to her dog. Sutures were placed. Noted to be up-to-date on Tdap. She was seen at [facility] in March 18 after sustaining a fall [...] of lower extremity, unspecified laterality, subsequent encounter (S81.359D) 2. Visit for suture removal (Z48.02) - [...] osteoporosis and lumbar compression fracture. Nguyễn Stringer APRN.PEDIATRICIAN ACTIVE PRACTICE Medical Decision Making: Problems: Low: Acute, uncomplicated illness or injury Moderate: 1+ chronic illnesses with change Data: Unique source(s) for external note(s) reviewed: 1 Unique test result(s) reviewed: 1 Unique test(s) ordered: 1 Risk: Moderate: Drug management Medical Decision Making Level: 4 - Moderate Nguyễn Stringer APRN.PEDIATRICIAN ACTIVE PRACTICE 03/22/2025 10:12 (more content not included)... Normal [facility] Emergency Department Summary on 03-18-2025 Emergency Department Summary [facility] Medical Records Department [address] [facility] [place] [address] Emergency Department Summary 03/18/25 MR#: [id number] Acct: [id number] Name: GERALDINE HAIRSTON Elin Rep #: [id number] : 1950 74 From: Will Knapp DO [...] management. Patient denies any blood thinning medications. [facility] Medical History Non-pressure chronic ulcer of [...] be a (more content not included)... Normal [facility] Femur Min 2 Viewson 03-18-20 Femur Min [address] [facility] Imaging Services [address] [place], [place] [address] Femur Min 2 Views MR#: [id number] Acct: [id number] Name: GERALDINE HAIRSTON Rep #: [id number] : 1950 F 74 From: Carmine lay MD PCP: Dr. Chance Kolb MD Status: REG ER Study: Femur Min 2 Views Date of Exam: 03/18/25 Exam# [id number] Ordering Dr: Will Knapp DO PROCEDURE: FEMUR MIN 2 VIEWS 03/18/2025 REASON FOR EXAM: FALL TECHNIQUE: FEMUR MIN 2 VIEWS COMPARISON: None FINDINGS: Bones: No fracture or dislocation. Joints: Moderate degree of joint space narrowing of the left hip joint. No fracture or dislocation. Soft tissues: Soft tissues are unremarkable. Other: RAD/Femur Min 2 Views IMPRESSION: NO ACUTE FRACTURE OR DISLOCATION. Reading Location: [facility] CC: Dr. Chance Kolb MD; Dr. Will Knapp DO Band Saw Operator: Signed Normal [facility] Pelvis 1 or 2 Viewson 2024 Pelvis 1 or [address] [facility] Imaging Services [address] [place] [address] Pelvis 1 or 2 Views MR#: [id number] Acct: [id number] Name: RONALDOYOSELINGERALDINE D Rep #: [id number] : 1950 F 74 From: Carmine lay MD PCP: Dr. Chance Kolb MD Status: REG ER Study: Pelvis 1 or 2 Views Date of Exam: 03/18/25 Exam# [id number] Ordering Dr: Will Knapp DO PROCEDURE: PELVIS [...] No acute fracture is seen. Reading Location: [facility] CC: Dr. Chance Kolb MD; Dr. Will Knapp DO Band Saw Operator: Signed Normal [facility] Spine Lumbar without Contras ton 03-18-2025 Spine Lumbar without Contrast [facility] Imaging Services [address] [place], [place] [id number] Spine Lumbar without Contrast MR#: [id number] Acct: [id number] Name: GERALDINE HAIRSTON Rep #: [id number] : 1950 F 74 From: Carmine lay MD PCP: Dr. Chance Kolb MD Status: REG ER Study: Spine Lumbar without Contrast Date of Exam: Exam# [id number] Ordering Dr: Will Knapp DO PROCEDURE: SPINE [...] endplate of the L4 vertebrae. Reading Location: [facility] CC: Dr. Chance Kolb MD; Dr. Will Knapp DO Band Saw Operator: Signed Normal [facility] Emergency Department Summary on 03-13-2025 Emergency Department Summary [facility] Medical Records Department [address] [place] [address] Emergency Department Summary 03/13/25 MR#: [id number] Acct: [id number] Name: GERALDINE HAIRSTON Rep #: [id number] : 1950 74 From: Will Knapp DO [...] last which was approximately 2 months ago. [facility] Medical History Non-pressure chronic ulcer of [...] Patient f (more content not included)... Normal [facility] Wound Ctr History AND Physic vanessa 03-11-2025 Wound Ctr History & Physical [facility] [address] [place] [address] H P Exam - Wound Care 03/11/25 1318 MR#: [id number] Acct: [id number] Name: GERALDINE HAIRSTON Rep #: [id number] : 1950 74 From: Cedric Gibbons MD [...] of her injury, she presented to the [facility] Emergency Department, where she was found to [...] her age, though has a history of hgvg-uhvl-qtxibrjhxyzmto a, GERD, hypertension, hypothyroidism, and osteoporosis. She denies a history of diabetes mellitus, myocardial infarction, cerebrovascular accident, renal disease, and pulmonary disease. Her BMI is 19.5. She is . [facility] Medical History Non-pressure chronic ulcer of [...] normocephalic a (more content not included)... Normal [facility] Wound Ctr History AND Physic vanessa 03-03-2025 Wound Ctr History & Physical [facility] [address] [place] [address] H P Exam - Wound Care 03/03/25 1057 MR#: [id number] Acct: [id number] Name: GERALDINE HAIRSTON Rep #: [id number] : 1950 74 From: Cedric Gibbons MD [...] of her injury, she presented to the [facility] Emergency Department, where she was found to [...] her age, though has a history of baoe-osos-ppdppvoyecjybp a, GERD, hypertension, hypothyroidism, and osteoporosis. She denies a history of diabetes mellitus, myocardial infarction, cerebrovascular accident, renal disease, and pulmonary disease. Her BMI is 19.5. She is . [facility] Medical History Non-pressure chronic ulcer of [...] Air Weight (more content not included)... Normal [facility] Wound Ctr History AND Physic vanessa 02-24-2025 Wound Ctr History & Physical [facility] [address] [place] [address] H P Exam - Wound Care 02/24/25 1110 MR#: [id number] Acct: [id number] Name: GERALDINE HAIRSTON Rep #: [id number] : 1950 74 From: Cedric Gibbons MD [...] of her injury, she presented to the [facility] Emergency Department, where she was found to [...] her age, though has a history of zjqi-tgnd-wirzbguzrqcvjh a, GERD, hypertension, hypothyroidism, and osteoporosis. She denies a history of diabetes mellitus, myocardial infarction, cerebrovascular accident, renal disease, and pulmonary disease. Her BMI is 19.5. She is . [facility] Medical History Non-pressure chronic ulcer of [...] Index (B (more content not included)... Normal [facility] Wound Ctr History AND Physic vanessa 02-17-2025 Wound Ctr History & Physical [facility] [address] [place] [address] H P Exam - Wound Care 02/17/25 1127 MR#: [id number] Acct: [id number] Name: GERALDINE HAIRSTON Rep #: [id number] : 1950 74 From: Cedric Gibbons MD [...] of her injury, she presented to the [facility] Emergency Department, where she was found to [...] her age, though has a history of pzbq-mhev-ilrscviulwiiqm a, GERD, hypertension, hypothyroidism, and osteoporosis. She denies a history of diabetes mellitus, myocardial infarction, cerebrovascular accident, renal disease, and pulmonary disease. Her BMI is 19.5. She is . [facility] Medical History Non-pressure chronic ulcer of [...] Air Weight (more content not included)... Normal [facility] Wound Ctr History AND Physic vanessa 02-10-2025 Wound Ctr History & Physical [facility] [address] [facility] [place] [address] H P Exam - Wound Care 02/10/25 1015 MR#: [id number] Acct: [id number] Name: GERALDINE HAIRSTON Rep #: [id number] : 1950 74 From: Cedric Gibbons MD [...] of her injury, she presented to the [facility] Emergency Department, where she was found to [...] her age, though has a history of kmfg-scgf-byybgtsxrzfvmx a, GERD, hypertension, hypothyroidism, and osteoporosis. She denies a history of diabetes mellitus, myocardial infarction, cerebrovascular accident, renal disease, and pulmonary disease. Her BMI is 19.5. She is . [facility] Medical History Non-pressure chronic ulcer of [...] Air Weight (more content not included)... Normal [facility] Wound Ctr History AND Physic vanessa 02-02-2025 Wound Ctr History & Physical [facility] [address] [place] [address] H P Exam - Wound Care 02/02/25 1643 MR#: [id number] Acct: [id number] Name: GERALDINE HAIRSTON Elin Rep #: [id number] : 1950 74 From: Cedric Gibbons MD [...] of her injury, she presented to the [facility] Emergency Department, where she was found to [...] her age, though has a history of iprm-pnla-cyyeaygtgozouw a, GERD, hypertension, hypothyroidism, and osteoporosis. She denies a history of diabetes mellitus, myocardial infarction, cerebrovascular accident, renal disease, and pulmonary disease. Her BMI is 19.5. She is . [facility] Medical History (Updated 02/02/25 @ 16:48 [...] Mass I (more content not included)... Normal [facility] CNOVon 01-29-2025 CNOV Office Visit (INTMWS ) -------- GERALDINE HAIRSTON ([id number]) 1950 F Date Time Provider Department 01/29/25 11:00 AM MALACHI LILLY INTMWS During your visit today, we recorded the following information about you: Pulse Respiration Blood pressure Weight 82/minute 18/minute 104/62 42.1 kg Malachi Lilly APRN.PROP DRAWER 01/29/2025 12:29 PM Signed SUBJECTIVE Geraldine Worthington [...] too hard physically. Seeing Dr. Gibbons with [facility] wound center. Geraldine also reports [...] Dr: Tory (more content not included)... Normal [facility] Wound Ctr History AND Physic vanessa 01-19-2025 Wound Ctr History & Physical [facility] [address] [place] [address] H P Exam - Wound Care 01/19/25 1900 MR#: [id number] Acct: [id number] Name: GERALDINE HAIRSTON Elin Rep #: [id number] : 1950 74 From: Cedric Gibbons MD [...] of her injury, she presented to the [facility] Emergency Department, where she was found to [...] her age, though has a history of nojs-qbvg-oynanrtqhawhkq a, GERD, hypertension, hypothyroidism, and osteoporosis. She denies a history of diabetes mellitus, myocardial infarction, cerebrovascular accident, renal disease, and pulmonary disease. Her BMI is 19.5. She is . [facility] Medical History Traumatic open wound of [...] 19.5 Ph (more content not included)... Normal [facility] Wound Ctr History AND Physic vanessa 01-14-2025 Wound Ctr History & Physical [facility] [address] [place] [address] H P Exam - Wound Care 01/14/252007 MR#: [id number] Acct: [id number] Name: GERALDINE HAIRSTON Rep #: [id number] : 1950 74 From: Cedric Gibbons MD [...] of her injury, she presented to the [facility] Emergency Department, where she was found to [...] her age, though has a history of pymf-cigw-nybaetsrglihtm a, GERD, hypertension, hypothyroidism, and osteoporosis. She denies a history of diabetes mellitus, myocardial infarction, cerebrovascular accident, renal disease, and pulmonary disease. Her BMI is 19.5. She is . [facility] Medical History Traumatic open wound of [...] oriented to (more content not included)... Normal [facility] Wound Ctr History AND Physic vanessa 01-08-2025 Wound Ctr History & Physical [facility] [address] [place] [address] H P Exam - Wound Care 01/08/25 1454 MR#: [id number] Acct: [id number] Name: GERALDINE HAIRSTON Rep #: [id number] : 1950 74 From: Cedric Gibbons MD PCP: Dr. Chance Kolb MD Status:DIS RCR Location: History of Present Illness Date of Service: 01/06/25 Chief Complaint: Traumatic avulsion injury of the left medial calf History of Wound: This is a 74-year-old female who sustained a traumatic injury to her left medial calf on January 01, 2025. At the time of her injury, she presented to the [facility] Emergency Department, where she was found to [...] her age, though has a history of crvw-khhh-eloskrcwpzeoax a, GERD, hypertension, hypothyroidism, and osteoporosis. She denies a history of diabetes mellitus, myocardial infarction, cerebrovascular accident, renal disease, and pulmonary disease. Her BMI is 19.5. She is . [facility] Medical History Traumatic open wound of [...] and orient (more content not included)... Normal [facility] Emergency Department Summary on 01-01-2025 Emergency Department Summary [facility] Medical Records Department [address] [place] [address] Emergency Department Summary 01/01/25 MR#: [id number] Acct: [id number] Name: GERALDINE HAIRSTON Rep #: [id number] : 1950 74 From: Crow Moreno PCP: [...] pressure. No other injuries. Tetanus Immunization: Unknown [facility] Medical History GERD (gastroesophageal reflux disease) HTN [...] tenderness present (more content not included)... Normal [facility] 25(OH)D3 [facility] 2024 25-hydroxyvitamin D3 [Mass/Vol] 100.0 ng/mL High 31.0-80.0 [facility] Comment on above: Order Comment: Alejandra martin Type: BLOOD SPECIMENOrdering Facility: [facility] Address: [address] [place] [address] Result Comment: Clas sification of 25 [place] Vitamin D status: Deficiency/Insufficiency: < or = 30 ng/ml. Sufficiency/Optimal Levels: 31-80 ng/mL Toxicity: > 100 ng/mL. Test performed by chemiluminescent immunoassay. Performed By: #### 1 989-3 ####[facility] [id number] [place] [address] [place] CBC panel Auto (Bld)on 12-17 Erythrocyte distribution width (RBC) [Ratio] 13.9 % Normal 11.5-15.0 [facility] Comment on above: Order Comment: Alejandra martin Type: BLOOD SPECIMEN Ordering Facility: [facility] Address: [address] [place] [address] Performed By: #### 5 8410-2 #### [facility] CLIA [id number] [address] [place] [address] [place] Hematocrit (Bld) [Volume fraction] 42.5 % Normal 36.0-46.0 [facility] Comment on above: Order Comment: Speci men Type: BLOOD SPECIMEN Ordering Facility: [facility] Address: [address] [place] [address] Performed By: #### 5 8410-2 #### [facility] CLIA [id number] [address] [place] [address] [place] Hemoglobin (Bld) [Mass/Vol] 13.9 g/dL Normal 11.5-15.5 [facility] Comment on above: Order Comment: Speci men Type: BLOOD SPECIMEN Ordering Facility: [facility] Address: [address] [place] [address] Performed By: #### 5 8410-2 #### [facility] CLIA [id number] [address] [place] [address] [place] MCH (RBC) [Entitic mass] 30.5 pg Normal 26.0-34.0 [facility] Comment on above: Order Comment: Speci men Type: BLOOD SPECIMEN Ordering Facility: [facility] Address: [address] [place] [address] Performed By: #### 5 8410-2 #### [facility] CLIA [id number] [address] [place] [address] [place] MCHC (RBC) [Mass/Vol] 32.7 g/dL Normal 30.5-36.0 [facility] Comment on above: Order Comment: Speci men Type: BLOOD SPECIMEN Ordering Facility: [facility] Address: [address] [place] [address] Performed By: #### 5 8410-2 #### [facility] CLIA [id number] [address] [place] [address] [place] MCV (RBC) [Entitic vol] 93.4 fL Normal 80.0-100.0 [facility] Comment on above: Order Comment: Speci men Type: BLOOD SPECIMEN Ordering Facility: [facility] Address: [address] [place] [address] Performed By: #### 5 8410-2 #### [facility] CLIA [id number] [address] [place] [address] [place] Nucleated RBC (Bld) [#/Vol] 10*3/uL Normal <0.01 [facility] Comment on above: Order Comment: Speci men Type: BLOOD SPECIMEN Ordering Facility: [facility] Address: [address] [place] [address] Performed By: #### 5 8410-2 #### [facility] CLIA [id number] [address] [place] [address] [place] Platelet mean volume (Bld) [Entitic vol] 10.4 fL Normal 9.0-12.7 [facility] Comment on above: Order Comment: Speci men Type: BLOOD SPECIMEN Ordering Facility: [facility] Address: [address] [place] [address] Performed By: #### 5 8410-2 #### [facility] CLIA [id number] [address] [place] [address] [place] Platelets (Bld) [#/Vol] 266 10*3/uL Normal 150-400 [facility] Comment on above: Order Comment: Speci men Type: BLOOD SPECIMEN Ordering Facility: [facility] Address: [address] [place] [address] Performed By: #### 5 8410-2 #### [facility] CLIA [id number] [address] [place] [address] [place] RBC (Bld) [#/Vol] 4.55 10*6/uL Normal 3.90-5.20 [facility] Comment on above: Order Comment: Speci men Type: BLOOD SPECIMEN Ordering Facility: [facility] Address: [address] [place] [address] Performed By: #### 5 8410-2 #### [facility] CLIA [id number] [address] [place] [address] [place] WBC (Bld) [#/Vol] 9.87 10*3/uL Normal 3.70-11.00 [facility] Comment on above: Order Comment: Speci men Type: BLOOD SPECIMEN Ordering Facility: [facility] Address: [address] [place] [address] Performed By: #### 5 8410-2 #### [facility] CLIA [id number] [address] [place] [address] [place] Comprehensive metabolic 2000 panelon 12-17-2024 Albumin [Mass/Vol] 4.5 g/dL Normal 3.9-4.9 [facility] Comment on above: Order Comment: Speci men Type: BLOOD SPECIMENOrdering Facility: [facility] Address: [address] [place] [address] Performed By: #### 2 4323-8, 70499-2, 3024-7, 3051-0 ####[facility] [id number] [place] [address] [place] ALP [Catalytic activity/Vol] 58 U/L Normal 34-123 [facility] Comment on above: Order Comment: Speci men Type: BLOOD SPECIMENOrdering Facility: [facility] Address: [address] [place] [address] Performed By: #### 2 4323-8, 03660-1, 3024-7, 3051-0 ####[facility] [id number] [place] [address] [place] ALT [Catalytic activity/Vol] 21 U/L Normal 7-38 [facility] Comment on above: Order Comment: Speci men Type: BLOOD SPECIMENOrdering Facility: [facility] Address: [address] [place] [address] Performed By: #### 2 4323-8, 21138-5, 3024-7, 3051-0 ####[facility] [id number] [place] [address] [place] Anion gap [Moles/Vol] 15 mmol/L Normal 8-15 [facility] Comment on above: Order Comment: Speci men Type: BLOOD SPECIMENOrdering Facility: [facility] Address: [address] [place] [address] Performed By: #### 2 4323-8, 96810-0, 3024-7, 3051-0 ####[facility] [id number] [place] [id number] [place] AST [Catalytic activity/Vol] 20 U/L Normal 13-35 [facility] Comment on above: Order Comment: Speci men Type: BLOOD SPECIMENOrdering Facility: [facility] Address: [address] [place] [address] Performed By: #### 2 4323-8, 68474-8, 3024-7, 3051-0 ####[facility] [id number] [place] [address] [place] Bilirubin [Mass/Vol] 0.3 mg/dL Normal 0.2-1.3 [facility] Comment on above: Order Comment: Speci men Type: BLOOD SPECIMENOrdering Facility: [facility] Address: [address] [place] [address] Performed By: #### 2 4323-8, 01342-7, 3024-7, 3051-0 ####[facility] [id number] [place] [address] [place] Calcium [Mass/Vol] 9.4 mg/dL Normal 8.5-10.2 [facility] Comment on above: Order Comment: Speci men Type: BLOOD SPECIMENOrdering Facility: [facility] Address: [address] [place] [address] Performed By: #### 2 4323-8, 39641-7, 3024-7, 3051-0 ####[facility] [id number] [place] [address] [place] Chloride [Moles/Vol] 102 mmol/L Normal 98-107 [facility] Comment on above: Order Comment: Speci men Type: BLOOD SPECIMENOrdering Facility: [facility] Address: [address] [place] [address] Performed By: #### 2 4323-8, 22810-3, 3024-7, 3051-0 ####[facility]IA [id number] [place] [address] [place] CO2 [Moles/Vol] 24 mmol/L Normal 22-30 [facility] Comment on above: Order Comment: Speci men Type: BLOOD SPECIMENOrdering Facility: [facility] Address: [address] [place] [address] Performed By: #### 2 4323-8, 30501-7, 3024-7, 3051-0 ####[facility] [id number] [place] [address] [place] Creatinine [Mass/Vol] 0.95 mg/dL Normal 0.58-0.96 [facility] Comment on above: Order Comment: Speci men Type: BLOOD SPECIMENOrdering Facility: [facility] Address: [address] [place] [address] Performed By: #### 2 4323-8, 53183-4, 3024-7, 3051-0 ####[facility] [id number] [place] [address] [place] Creatinine and Glomerular filtration rate.predicted panel (S/P/Bld) 63 mL/min/1.73m??? Normal >=60 [facility] Comment on above: Order Comment: Speci men Type: BLOOD SPECIMENOrdering Facility: [facility] Address: [address] [place] [address] Result Comment: Maryjane mated Glomerular Filtration Rate [...] actual GFR. Performed By: #### 2 4323-8, 34542-5, 3023-7, 305-0 ####[facility] [id number] [facility] [address] [place] [address] [place] Glucose [Mass/Vol] 77 mg/dL Normal 74-99 [facility] Comment on above: Order Comment: Alejandra martin Type: BLOOD SPECIMENOrdering Facility: [facility] Address: [address] [place] [address] Result Comment: The [place] Diabetes [employer] (ADA) provides guidance for cutoff [...] Standards of Medical Care in Diabetes 2016, [place] [employer]. Diabetes Care. 2016.39(Suppl 1). Performed By: #### 2 4323-8, 44681-3, 3024-03, 3050-0 ####[facility] [id number] [facility] [address] [address] [place] Potassium [Moles/Vol] 3.3 mmol/L Low 3.7-5.1 [facility] Comment on above: Order Comment: Alejandra martin Type: BLOOD SPECIMENOrdering Facility: [facility] Address: [address] [place] [address] Performed By: #### 2 4323-8, 03380-6, 3023-7, 305-0 ####[facility] [id number] [facility] [address] [address] [place] Protein [Mass/Vol] 7.1 g/dL Normal 6.3-8.0 [facility] Comment on above: Order Comment: Speci men Type: BLOOD SPECIMENOrdering Facility: [facility] Address: [address] [place] [address] Performed By: #### 2 4323-8, 15252-5, 3024-7, 3051-0 ####[facility] [id number] [place] [address] [place] Sodium [Moles/Vol] 141 mmol/L Normal 136-144 [facility] Comment on above: Order Comment: Speci men Type: BLOOD SPECIMENOrdering Facility: [facility] Address: [address] [place] [address] Performed By: #### 2 4323-8, 99724-3, 3024-7, 3051-0 ####[facility] [id number] [place] [address] [place] Urea nitrogen [Mass/Vol] 20 mg/dL Normal 7-21 [facility] Comment on above: Order Comment: Speci men Type: BLOOD SPECIMENOrdering Facility: [facility] Address: [address] [place] [address] Performed By: #### 2 4323-8, 49449-7, 3024-7, 3051-0 ####[facility] [id number] [place] [address] [place] Lipid 1996 panelon 5 Cholesterol [Mass/Vol] 305 mg/dL High <200 [facility] Comment on above: Order Comment: Speci men Type: BLOOD SPECIMENOrdering Facility: [facility] Address: [address] [place] [address] Result Comment: <200 mg/dL, Desirable 200-239 mg/dL, Borderline high >239 mg/dL, High Performed By: #### 2 4323-8, 59560-3, 3024-7, 3051-0 ####[facility] [id number] [place] [address] [place] Cholesterol in HDL [Mass/Vol] 114 mg/dL Normal >39 [facility] Comment on above: Order Comment: Bienvenidosathish martin Type: BLOOD SPECIMENOrdering Facility: [facility] Address: [address] [place] [address] Result Comment: 40-5 9 mg/dL, Acceptable >59 mg/dL, High: Negative risk factor for coronary heart disease <40 mg/dL, Low: Positive risk factor for coronary heart disease Performed By: #### 2 4323-8, 82495-5, 3024-7, 3051-0 ####[facility] [id number] [address] [place] Cholesterol in LDL [Mass/Vol] 172 mg/dL High <100 [facility] Comment on above: Order Comment: Alejandra mario Type: BLOOD SPECIMENOrdering Facility: [facility] Address: [address] [place] [address] Result Comment: <100 mg/dL, Optimal 100-129 mg/dL, Near optimal/above optimal 130-159 mg/dL, Borderline high 160-189 mg/dL, High >189 mg/dL, Very high Secondary prevention optimal LDL Cholesterol levels are recommended to be < 70 mg/dL Performed By: #### 2 4323-8, 35270-8, 3024-7, 3051-0 ####[facility] [id number] [address] OF [facility] Cholesterol in LDL/Cholesterol in HDL [Mass ratio] 1.51 {ratio} Normal <2.54 [facility] Comment on above: Order Comment: Bienvenidosathish martin Type: BLOOD SPECIMENOrdering Facility: [facility] Address: [address] [place] [address] Result Comment: Refe rence: 1. National Cholesterol Education Program ATP III Guideline At-A-Glance Quick Desk Reference: National Heart, Lung, and Blood [place]. National Institutes of Health. 2001: NIH Publication No. 01-3305. 2. An International Atherosclerosis Society position paper: global recommendations for the management of dyslipidemia: executive summary, Atherosclerosis. 2014: 232(2):410-413. Performed By: #### 2 4323-8, 88090-0, 3023-7, 305-0 ####[facility] [id number] [address] [address] [place] Cholesterol in VLDL [Mass/Vol] 19 mg/dL Normal <30 [facility] Comment on above: Order Comment: Speci men Type: BLOOD SPECIMENOrdering Facility: [facility] Address: [address] [place] [address] Performed By: #### 2 4323-8, 65587-3, 3024-03, 3050-0 ####[facility] [id number] [address] [address] [place] Cholesterol non HDL [Mass/Vol] 191 mg/dL High <130 [facility] Comment on above: Order Comment: Speci men Type: BLOOD SPECIMENOrdering Facility: [facility] Address: [address] [place] [address] Result Comment: <130 mg/dL, Optimal 130-159 mg/dL, Near optimal/above optimal 160-189 mg/dL, Borderline high 190-219 mg/dL, High >219 mg/dL, Very high Secondary prevention optimal non HDL Cholesterol levels are recommended to be <100 mg/dL Performed By: #### 2 4323-8, 33730-3, 3024-03, 305-0 ####[facility]IA [id number] [address] [address] [place] Cholesterol.total/Cho lesterol in HDL [Mass ratio] 2.68 {ratio} Normal <5.10 [facility] Comment on above: Order Comment: Speci men Type: BLOOD SPECIMENOrdering Facility: [facility] Address: [address] [place], [place] [address] Performed By: #### 2 4323-8, 53891-2, 7, 305-0 ####[facility]IA [id number] [address] [place] [address] [place] FASTING TIME 12 hrs Normal [facility] Comment on above: Order Comment: Speci men Type: BLOOD SPECIMENOrdering Facility: [facility] Address: [address] [place], [place] [address] Performed By: #### 2 4323-8, 12072-1, 3024-7, 3051-0 ####[facility]IA [id number] [address] [place] [address] [place] Triglyceride [Mass/Vol] 95 mg/dL Normal <150 [facility] Comment on above: Order Comment: Speci men Type: BLOOD SPECIMENOrdering Facility: [facility] Address: [address] [place] [address] Result Comment: <150 mg/dL, Normal 150-199 mg/dL, Borderline high 200-499 mg/dL, High >499 mg/dL, Very high Performed By: #### 2 4323-8, 93534-4, 3024-7, 3051-0 ####[facility] [id number] [address] [place] [address] [place] Magnesium SerPl-mCncon 12-17 Magnesium [Mass/Vol] 2.0 mg/dL Normal 1.7-2.3 [facility] Comment on above: Order Comment: Speci men Type: BLOOD SPECIMENOrdering Facility: [facility] Address: [address] [place] [address] Performed By: #### 1 9123-9, 3016-3 ####[facility]IA [id number] [address] [address] [place] T3Free SerPl-mCncon 12-18-19 25 Free T3 [Mass/Vol] 2.2 pg/mL Low 2.3-4.1 [facility] Comment on above: Order Comment: Speci men Type: BLOOD SPECIMENOrdering Facility: [facility] Address: [address] [place], [place] [address], [place] [address] Performed By: #### 2 4323-8, 50938-5, 3024-7, 3051-0 ####[facility]IA [id number] [place] [address] [place] T4 Free SerPl-mCncon 025 Free T4 [Mass/Vol] 1.3 ng/dL Normal 0.9-1.7 [facility] Comment on above: Order Comment: Speci men Type: BLOOD SPECIMENOrdering Facility: [facility] Address: [address] [place] [address] Performed By: #### 2 4323-8, 47562-6, 3024-7, 3051-0 ####[facility]IA [id number] [place] [address] [place] TSH SerPl-aCncon 12-17-2024 TSH Qn 1.940 m[IU]/L Normal 0.270-4.200 [facility] Comment on above: Order Comment: Speci men Type: BLOOD SPECIMENOrdering Facility: [facility] Address: [address] [place], [place] [address] [address] Performed By: #### 1 9123-9, 3016-3 ####[facility] [id number] [address] [place] Sandra [facility] GERALDINE HAIRSTON ([id number]) 1950 F Date Time Provider Department 10/09/24 [...] Please review and advise, DANYELL Bishop Terri, [facility] 2024 3:53 PM Signed Urinalysis shows bacteria [...] Status:Closed by BETH LINDA on 10/09/24 Normal [facility] Urinalysis complete panel (U )on 10-06-2024 BACTERIA UL >9821 High Negative [facility] Comment on above: Order Comment: Speci men Type: BLOOD SPECIMEN Ordering Facility: [facility] Address: [address] [place] [address] Performed By: #### 2 4321-2 #### [facility] CLIA [id number] [address] [place] [address] [place] Bilirubin Ql (U) Negative Normal Negative [facility] Comment on above: Order Comment: Speci men Type: BLOOD SPECIMEN Ordering Facility: [facility] Address: [address] [place] [address] Performed By: #### 2 4321-2 #### [facility] CLIA [id number] [address] [place] [address] [place] Clarity (Unsp spec) Clear Normal Clear [facility] Comment on above: Order Comment: Speci men Type: BLOOD SPECIMEN Ordering Facility: [facility] Address: [address] [place] [address] Performed By: #### 2 4321-2 #### [facility] CLIA [id number] [address] [place] [address] [place] Color (U) Yellow Normal Yellow [facility] Comment on above: Order Comment: Speci men Type: BLOOD SPECIMEN Ordering Facility: [facility] Address: [address] [place] [address] Performed By: #### 2 4321-2 #### [facility] CLIA [id number] [address] [place] [address] [place] Epithelial cells LM.HPF (Urine sed) [#/Area] None Seen Normal [facility] Comment on above: Order Comment: Speci men Type: BLOOD SPECIMEN Ordering Facility: [facility] Address: [address] [place] [address] Performed By: #### 2 4321-2 #### [facility] CLIA [id number] [address] [place] [address] [place] Glucose Test strip (U) [Mass/Vol] Negative Normal Negative [facility] Comment on above: Order Comment: Speci men Type: BLOOD SPECIMEN Ordering Facility: [facility] Address: [address] [place] [address] Performed By: #### 2 4321-2 #### [facility] CLIA [id number] [address] [place] [address] [place] Hemoglobin Ql (U) Negative Normal Negative [facility] Comment on above: Order Comment: Speci men Type: BLOOD SPECIMEN Ordering Facility: [facility] Address: [address] [place], [place] [address] Performed By: #### 2 4321-2 #### [facility] CLIA [id number] [address] [place] [address] [place] Hyaline casts (Urine sed) [#/Area] 0 /[LPF] Normal 0 /LPF [facility] Comment on above: Order Comment: Speci men Type: BLOOD SPECIMEN Ordering Facility: [facility] Address: [address] [place] [address] Performed By: #### 2 4321-2 #### [facility] CLIA [id number] [address] [place] [address] [place] Ketones Ql (U) Negative Normal Negative [facility] Comment on above: Order Comment: Speci men Type: BLOOD SPECIMEN Ordering Facility: [facility] Address: [address] [place] [address] Performed By: #### 2 4321-2 #### [facility] CLIA [id number] [address] [place] [address] [place] Leukocyte esterase Test strip Ql (U) Negative Normal Negative [facility] Comment on above: Order Comment: Speci men Type: BLOOD SPECIMEN Ordering Facility: [facility] Address: [address] [place] [address] Performed By: #### 2 4321-2 #### [facility] CLIA [id number] [address] [place] [address] [place] Nitrite Ql (U) Negative Normal Negative [facility] Comment on above: Order Comment: Speci men Type: BLOOD SPECIMEN Ordering Facility: [facility] Address: [address] [place] [address] Performed By: #### 2 4321-2 #### [facility] CLIA [id number] [address] [place] [address] [place] pH (U) 7.0 [pH] Normal <8.5 [facility] Comment on above: Order Comment: Speci men Type: BLOOD SPECIMEN Ordering Facility: [facility] Address: [address] [place] [address] Performed By: #### 2 4321-2 #### [facility] CLIA [id number] [address] [place], [place] [address] [place] Protein (U) [Mass/Vol] Negative Normal Negative [facility] Comment on above: Order Comment: Speci men Type: BLOOD SPECIMEN Ordering Facility: [facility] Address: [address] [place] [address] Performed By: #### 2 4321-2 #### [facility] CLIA [id number] [address] [place] [address] [place] RBC LM.HPF (Urine sed) [#/Area] 0-2 /HPF Normal 0-2 /HPF [facility] Comment on above: Order Comment: Speci men Type: BLOOD SPECIMEN Ordering Facility: [facility] Address: [address] [place] [address] Performed By: #### 2 4321-2 #### [facility] CLIA [id number] [address] [place] [address] [place] Specific gravity (U) [Rel density] 1.012 Normal 1.005-1.030 [facility] Comment on above: Order Comment: Speci men Type: BLOOD SPECIMEN Ordering Facility: [facility] Address: [address] [place] [address] Performed By: #### 2 4321-2 #### [facility] CLIA [id number] [address] [place] [address] [place] Urobilinogen Ql (U) 0.2 EU/dL Normal 0.2-1.0 EU/dL [facility] Comment on above: Order Comment: Speci men Type: BLOOD SPECIMEN Ordering Facility: [facility] Address: [address] [place] [address] Performed By: #### 2 4321-2 #### [facility] CLIA [id number] [address] [place] [address] [place] WBC LM.HPF (Urine sed) [#/Area] 0-5 /HPF Normal 0-5 /HPF [facility] Comment on above: Order Comment: Speci men Type: BLOOD SPECIMEN Ordering Facility: [facility] Address: [address] [place] [address] Performed By: #### 2 4321-2 #### [facility] CLIA [id number] [address] [place], [place] [address] [place] BD DXA - [...] years, Gender: Female SCANNER INFORMATION: DXA Model: Sabrix - Evirx C 51380 Date Scanned: 08/17/2024 11:21 AM CLINICAL HISTORY: [...] FOR MORE INFORMATION ABOUT DIAGNOSIS AND TREATMENT: [facility] Center for Osteoporosis and Metabolic Bone Disease:? www.ccf.org/arthritis/os kayleen National Osteoporosis Foundation:? www.nof.org International Society of Clinical Densitometry www.iscd.org Band Saw Operator: BAILEY Transcribe Date/Time: Aug 17 2024 3:29P Dictated by : OLIVE KEITA MD This examination was interpreted and the report reviewed and electronically signed by: OLIVE KEITA MD on Aug 17 2024 3:33PM EST [id number] -[id number] Normal [facility] BD DXA TRABECLR BONE SCORE ( TBS)on 08-17-2024 BD DXA TRABECLR BONE SCORE (TBS) * * *Final Report* * * DATE OF EXAM: Aug 17 2024 11:21AM [facility] 0801 - BD DXA TRABECLR BONE SCORE (TBS) / PROCEDURE REASON: Asymptomatic postmenopausal status * * * * Physician Interpretation * * * * EXAMINATION: DXA BONE DENSITOMETRY BD DXA - AXIAL SKELETON, BD DXA TRABECLR BONE SCORE (TBS) PATIENT DEMOGRAPHICS: Age: 73 years, Gender: Female SCANNER INFORMATION: DXA Model: Sabrix - Evirx C 39711 Date Scanned: 08/17/2024 11:21 AM CLINICAL HISTORY: [...] FOR MORE INFORMATION ABOUT DIAGNOSIS AND TREATMENT: [facility] Center for Osteoporosis and Metabolic Bone Disease:? www.ccf.org/arthritis/os kayleen National Osteoporosis Foundation:? www.nof.org International Society of Clinical Densitometry www.iscd.org Band Saw Operator: PSCB Transcribe Date/Time: Aug 17 2024 3:29P Dictated by : OLIVE KEITA MD This examination was interpreted and the report reviewed and electronically signed by: OLIVE KEITA MD on Aug 17 2024 3:33PM EST [id number] -[id number] Normal [facility] DXA Femur [T-score] Bone bridgett moses [...] years, Gender: Female SCANNER INFORMATION: DXA Model: Sabrix - Evirx C 39769 Date Scanned: 08/17/2024 11:21 AM CLINICAL HISTORY: [...] or = 1.230) DIVISION OF RADIOLOGY Provider, [facility] Zoie [facility] - 08/17/2024 * * *Final Report* [...] years, Gender: Female SCANNER INFORMATION: DXA Model: Sabrix - Evirx C 45734 Date Scanned: 08/17/2024 11:21 AM CLINICAL HISTORY: [...] FOR MORE INFORMATION ABOUT DIAGNOSIS AND TREATMENT: [facility] Center for Osteoporosis and Metabolic Bone Disease:? www.ccf.org/arthritis/os kayleen National Osteoporosis Foundation:? www.nof.org International Society of Clinical Densitometry www.iscd.org Band Saw Operator: BAILEY Transcribe Date/Time: Aug 17 2024 3:29P Dictated by : OLIVE KEITA MD This examination was interpreted and the report reviewed and electronically signed by: OLIVE KEITA MD on Aug 17 2024 3:33PM EST [facility] DXA Skeletal system.axial Vi ews for bone densityon 08-17-2024 * * *Final Report* * * DATE OF EXAM: Aug 17 2024 11:21AM [facility] 0804 - BD DXA - AXIAL SKELETON / PROCEDURE REASON: Asymptomatic postmenopausal status * * * * Physician Interpretation * * * * EXAMINATION: DXA BONE DENSITOMETRY BD DXA - AXIAL SKELETON, BD DXA TRABECLR BONE SCORE (TBS) PATIENT DEMOGRAPHICS: Age: 73 years, Gender: Female SCANNER INFORMATION: DXA Model: Sabrix - Evirx C 47570 Date Scanned: 08/17/2024 11:21 AM CLINICAL HISTORY: [...] 1.230) DIVISION OF RADIOLOGY Provider, Deanna Lino [facility] - 08/17/2024 * * *Final Report* [...] years, Gender: Female SCANNER INFORMATION: DXA Model: Sabrix - Evirx C 23928 Date Scanned: 08/17/2024 11:21 AM CLINICAL HISTORY: [...] FOR MORE INFORMATION ABOUT DIAGNOSIS AND TREATMENT: [facility] Center for Osteoporosis and Metabolic Bone Disease:? www.f.org/arthritis/os kayleen National Osteoporosis Foundation:? www.nof.org International Society of Clinical Densitometry www.iscd.org Band Saw Operator: BAILEY Transcribe Date/Time: Aug 17 2024 3:29P Dictated by : OLIVE KEITA MD This examination was interpreted and the report reviewed and electronically signed by: OLIVE KEITA MD on Aug 17 2024 3:33PM [facility] No Panel InformationOrdered By: [facility] Provider on 08-17-2024 LOWEST T-SCORE -3.7 [facility] No Panel Informationon 08-17 IMPRESSION: THE LOWEST [...] FOR MORE INFORMATION ABOUT DIAGNOSIS AND TREATMENT: [facility] Center for Osteoporosis and Metabolic Bone Disease:? www.ccf.org/arthritis/os kayleen National Osteoporosis Foundation:? www.nof.org International Society of Clinical Densitometry www.iscd.org Band Saw Operator: BAILEY Transcribe Date/Time: Aug 17 2024 3:29P Dictated by : OLIVE KEITA MD This examination was interpreted and the report reviewed and electronically signed by: OLIVE KEITA MD on Aug 17 2024 3:33PM [facility] DIVISION OF RADIOLOGY Radiology Study observation (narrative) [facility] CNTHERAPYon 08-14-2024 CNTHERAPY OT/PT/Speech Visit (PTWS) -------- GERALDINE HAIRSTON ([id number]) 1950 F Date Time Provider Department 08/14/24 12:30 PM BAILEY MADRIGAL PTROSIE Date Time Provider Department Center 08/14/2024 12:30 PM [id number] MADRIGAL PTROSIE [place] Reason for Visit: PT [...] Two sprays each nostril twice daily. Normal [facility] GERALDINE HAIRSTON ([id number]) 1950 F Date Time Provider Department 08/07/24 [...] review and advise further. ADÁN Dalton Terri, APRN.PEDIATRICIAN ACTIVE PRACTICE 08/07/2024 3:24 PM Signed Switch to Bactrrim. [...] Medications Discont (more content not included)... Normal [facility] CNTHERAPYon 08-07-2024 CNTHERAPY OT/PT/Speech Visit (PTWS) -------- GERALDINE HAIRSTON ([id number]) 1950 F Date Time Provider Department 08/07/24 12:30 PM BAILEY MADRIGAL Date Time Provider Department [place] 08/07/2024 12:30 PM [id number] MADRIGAL Reason for Visit: Physical Therapy [503] [...] AEROSOL Two sprays each nostril twice daily. [employer] Supervisor: Addendum Therapy (PT/OT/Speech/Resp) ID: [id number] 08/07/2024 12:57 PM Author: BAILEY MADRIGAL Signed by BAILEY MADRIGAL PT on 08/07/2024 at 12:57 PM * * * This document replaces document [id number] * * * Document text: Program_ID:[id number] Access Code: [email or web address] URL: [email or web address]. [employer] Date: 08-07-2024 Prepared By: Bailey Madrigal Program [...] - 2 sets - 15 reps Normal [facility] THERAPY NTon 08-07-2024 THERAPY NT HNO ID: [id number] Author: BAILEY MADRIGAL PT Service: ? Author Type: Physical Therapist Type: Therapy (PT/OT/Speech/Resp) Filed: 08/07/2024 12:57 Note Text: Program_ID:[id number] Access Code: [email or web address] URL: [email or web address] [employer] Date: 08-07-2024 Prepared By: Bailey Madrigal Program [...] - 2 sets - 15 reps Normal [facility] CNOVon 07-27-2024 CNOV Office Visit (INTMWS ) -------- GERALDINE HAIRSTON ([id number]) 1950 F Date Time Provider Department 07/27/24 12:20 PM NGUYỄN STRINGER INTMWS During your visit today, we recorded the following information about you: Pulse Respiration Blood pressure Weight 88/minute 16/minute 89/54 42 kg Nguyễn Stringer APRN.PEDIATRICIAN ACTIVE PRACTICE 07/27/2024 12:54 PM Signed SUBJECTIVE: Shingrix Vaccine(2 [...] 1. U (more content not included)... Normal [facility] CNTHERAPYon 07-27-2024 CNTHERAPY OT/PT/Speech Visit (PTWS) -------- GERALDINE HAIRSTON ([id number]) 1950 F Date Time Provider Department 07/27/24 3:30 PM BAILEY MADRIGAL PTROSIE Date Time Provider Department Center 07/27/2024 3:30 PM [id number] MADRIGAL PTWS Adarsh Du[place] Reason for Visit: [...] AEROSOL Two sprays each nostril twice daily. [employer] Sp[employer] Supervisor: Therapy (PT/OT/Speech/Resp) ID: [id number] 07/27/2024 3:56 PM Author: BAILEY MADRIGAL Signed by BAILEY MADRIGAL PT on 07/27/2024 at 3:56 PM Document text: Program_ID:[id number] Access Code: [email or web address] URL: [email or web address]/ Date: 07-27-2024 Prepared By: Bailey Madrigal Program [...] - 2 sets - 10 reps Normal [facility] THERAPY NTon 07-27-2024 THERAPY NT HNO ID: [id number] Author: BAILEY MADRIGAL, PT Service: ? Author Type: Physical Therapist Type: Therapy (PT/OT/Speech/Resp) Filed: 07/27/2024 15:56 Note Text: Program_ID:[id number] Access Code: [email or web address] URL: [email or web address]/ Date: 07-27-2024 Prepared By: Bailey Madrigal Program [...] - 2 sets - 10 reps Normal [facility] Bacteria Ur Culton 4 Bacteria identified [...] , Intermediate >32 , Resistant >64 Abnormal [facility] Comment on above: Performed By: #### 6 30-4 ####[facility] [id number] [place] [id number] [facility] CNOVon 07-25-2024 CNOV Office Visit (UCWSTR ) -------- GERALDINE HAIRSTON ([id number]) 1950 F Date Time Provider Department 07/25/24 10:30 AM [facility] During your visit today, we recorded the [...] plan and verbalizes understanding. Stephanie Garcia, Student GYRO MECHANIC Complete dose of antibiotic Follow-up with PCP in 2-3 days Monitor for signs of infection, fever, increased pain, nausea and or vomiting in the presence of pain. Carmen Miranda APRN.[facility] 07/25/2024 11:58 AM Signed Subjective Geraldine [...] IBS and sees a GI provider in [place]. She states that she recently started physical [...] Swan) Taty (more content not included)... Normal [facility] UA DIP, URINE (POC)on 2023 BILIRUBIN UA (POCT) Negative Negative [facility] CLARITY UA (POCT) Turbid [facility] COLOR UA (POCT) Yellow [facility] GLUCOSE UA (POCT) Negative Negative mg/dL [facility] Hemoglobin Ql (U) Trace-intact Abnormal Negative [facility] Interpretation and review of laboratory results Abnormal [facility] KETONE UA (POCT) Negative Negative mg/dL [facility] LEUKOCYTES UA (POCT) Trace Abnormal Negative [facility] NITRITE UA (POCT) Negative Negative [facility] PH UA (POCT) 6.5 4.5 - 8.0 [facility] Protein Ql (U) Negative Negative mg/dL [facility] SPECIFIC GRAVITY UA (POCT) 1.010 1.005 - 1.030 [facility] UROBILINOGEN UA (POCT) 0.2 Normal E.U./dL [facility] Location:[facility], [address], [place], [address] [facility] POINT OF CARE [facility] [id number] 07-17-2024 [id number] HNO ID: [id number] Author: BAILEY MADRIGAL PT Service: ? Author Type: Physical Therapist Type: [id number] Filed: 07/17/2024 13:55 Note Text: [facility] Rehabilitation and Sports Therapy Physical Therapy Plan of Care Certification Patient Name: Geraldine Hairston : 1950 CC #: [id number] Date: 07/17/2024 To: Chance Kolb MD From [...] Planned: 6 Planned Treatment Interventions: Therapeutic exercise (15183), Manual therapy (59004), Therapeutic activities (24105), Self-long-term management (54867), Gait Training (17714), Neuromuscular re-education (38940) PLAN FOR NEXT VISIT: assess symmptom response to rpeeated lumbar flexion Patient demonstrates good understanding of plan of care and treatment. The above goals and plan of care were discussed and agreed upon by patient/family. For further details regarding this patient refer to the Physical Therapy electronically documented visit dated 07/17/2024. Provider Attestation I have reviewed the treatment plan for Geraldine Hairston, [facility]# [id number] for the period of 07/17/24 -- 08/28/24, established on 07/17/2024. Signature certifies the need for therapy services. Normal [facility] CNTHERAPYon 07-17-2024 CNTHERAPY OT/PT/Speech Visit (PTWS) -------- GERALDINE HAIRSTON ([id number]) 1950 F Date Time Provider Department 07/17/24 1:15 PM BAILEY MADRIGAL PTROSIE Date Time Provider Department [place] 07/17/2024 1:15 PM [id number]-OBAILEY MADRIGAL PTROSIE [place] Reason for Visit: PT [...] AEROSOL Two sprays each nostril twice daily. [employer] Supervisor: Therapy (PT/OT/Speech/Resp) ID: [id number] 07/17/2024 1:36 PM Author: BAILEY MADRIGAL Signed by BAILEY MADRIGAL PT on 07/17/2024 at 1:36 PM Document text: Program_ID:[id number] Access Code: [email or web address] URL: [email or web address]/ Date: 07-17-2024 Prepared By: Bailey Madrigal Program [...] - 2 sets - 10 reps Normal [facility] THERAPY NTon 07-17-2024 THERAPY NT HNO ID: [id number] Author: BAILEY MADRIGAL PT Service: ? Author Type: Physical Therapist Type: Therapy (PT/OT/Speech/Resp) Filed: 07/17/2024 13:36 Note Text: Program_ID:[id number] Access Code: [email or web address] URL: [email or web address]. [employer] Date: 07-17-2024 Prepared By: Bailey Madrigal Program [...] - 2 sets - 10 reps Normal [facility] Office Visiton 01-09-2024 Follow-up visit [id number] Geraldine Hairston 1950 [facility] Provider Department [place] 01/09/2024 [id number] VAIL [facility] ORT DEB None Family History Family Status - Relation Status Age at Mother Alive Father Alive Level of Service:50002 [place] OFFICE/OUTPATIENT ESTABLISHED LOW MDM 20 MIN Reason for Visit and Comments: Follow-up [612697] - Right hand pain Normal [facility] Progress Noteon 01-09-2024 Progress Note [facility] [address] [place] [address] Dept: [phone] Dept 01/09/2024 Chief Complaint Patient presents with [...] Vail MD Hand and Upper Extremity Surgery [facility] Department of Orthopaedics and Sports Medicine 01/09/2024 at 10:30 AM (Please note that portions of this note may have been completed with a voice recognition program. Efforts were made to edit the dictations but occasionally words are mis-transcribed.) Normal [facility] 36on 01-06-2024 36 Spoke to patient and scheduled appointment to discuss surgery details. Normal [facility] 36 Left message informi ng patient with number to call back with additional questions or concerns or to schedule surgery. Normal [facility] XR Lumbar spine 3 Viewson IMPRESSION: MILD SUPERIOR ENDPLATE COMPRESSION OF L4 IS AGE INDETERMINATE. ADDITIONAL DEGENERATIVE CHANGES AND ALIGNMENT ABNORMALITIES DESCRIBED Band Saw Operator: BAILEY Transcribe Date/Time: Jan 02 2024 2:48P Dictated by : SAVANA ARIAS MD This examination was interpreted and the report reviewed and electronically signed by: SAVANA ARIAS MD on Jan 02 2024 2:53PM [facility] DIVISION OF RADIOLOGY * * *Final Report* [...] L4. Age indeterminate. DIVISION OF RADIOLOGY Provider, [facility] - 01/02/2024 * * *Final Report* * [...] ADDITIONAL DEGENERATIVE CHANGES AND ALIGNMENT ABNORMALITIES DESCRIBED Band Saw Operator: BAILEY Transcribe Date/Time: Jan 02 2024 2:48P Dictated by : SAVANA ARIAS MD This examination was interpreted and the report reviewed and electronically signed by: SAVANA ARIAS MD on Jan 02 2024 2:53PM [facility] XR Lumbar spine 3 ViewsOrder ed By: Ccf Provider on 01-02-2024 [facility] 36on 12-31-2023 36 Thumb flexors most likely [...] we are on the same page. Normal [facility] XR Lumbar spine 3 Viewson Radiology Study observation (narrative) [facility] 36on 12-27-2023 36 Patient called in stating [...] its necessary to proceed with surgery. Normal [facility] 36on 09-27-2023 36 Spoke to patient, sh mahendra is recovering from rib fractures and will call when ready to proceed with surgery. Normal [place] [address]on 09-23-2023 36 Left message for pat ient to call back to schedule surgery. 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 Normal [facility] XR Ribs - right Views and Ch est PAon 09-03-2023 IMPRESSION: Acute fractures of the right seventh and 10th ribs. Band Saw Operator: BAILEY Transcribe Date/Time: Sep 03 2023 1:48P Dictated by : OLIVE KEITA MD This examination was interpreted and the report reviewed and electronically signed by: OLIVE KEITA MD on Sep 03 2023 1:52PM [facility] DIVISION OF RADIOLOGY * * *Final Report* [...] effusion or pneumothorax. DIVISION OF RADIOLOGY [facility], [facility] * * *Final Report* * [...] of the right seventh and 10th ribs. Band Saw Operator: BAILEY Transcribe Date/Time: Sep 03 2023 1:48P Dictated by : OLIVE KEITA MD This examination was interpreted and the report reviewed and electronically signed by: OLIVE KEITA MD on Sep 03 2023 1:52PM EST [facility] Radiology Study observation (narrative) [facility] XR Ribs - right Views and Ch est PAOrdered By: Ccf Provider on 09-03-2023 [facility] 36on 08-29-2023 36 Records request sent to Adarsh Downey for Operative reports. Will have Yared review and advise on surgery orders once reports received. Normal [facility] Office Visiton 08-29-2023 Follow-up visit [id number] Geraldine Hairston 1950 F Date Provider Department Center 08/29/2023 [id number]-BOGLHTHEA VAIL [facility] ORT [facility] None Family History Family Status - Relation Status Age at Mother Alive Father Alive Level of Service:65428 [place] OFFICE/OUTPATIENT ESTABLISHED MOD MDM 30-39 MIN Reason for Visit and Comments: Follow-up [448787] - Right hand MRI results Normal [facility] Progress Noteon 08-29-2023 Progress Note [facility] [address] [place] [address] Dept: [phone] Dept 08/29/2023 Chief Complaint Patient presents with [...] Hairston regarding the natural history, etiology, and terminal carman consequences of her condition. We discussed both [...] Follow-up: Geraldine will followup with my physician assistant corporate controller Rossy Holliday PA-C post operatively. She knows to call the office with any questions or concerns in the interim. Future Imaging: NONE Thea Vail MD Hand and Upper Extremity Surgery [facility] Departm (more content not included)... Normal [facility] Office Visiton 08-12-2023 Follow-up visit [id number] Geraldine Hairston 1950 F Date Provider Department Center 08/12/2023 [id number]-RLSTDTHEA VAIL [facility] OR None Family History Family Status - Relation Status Age at Mother Alive Father Alive Level of Service:33321 CA OFFICE/OUTPATIENT NEW LOW [facility] 30-44 MINUTES Reason for Visit and Comments: New Patient [542] - Right thumb cyst Normal [facility] Progress Noteon 08-12-2023 Progress Note [facility]IC[facility] [address] [place] [address] [place] [address] Dept: [phone] Dept 08/12/2023 Chief Complaint Patient presents with [...] Vail MD Hand and Upper Extremity Surgery [facility] Department of Orthopaedics and Sports Medicine 08/12/2023 at 2:13 PM (Please note that portions of this note may have been completed with a voice recognition program. Efforts were made to edit the dictations but occasionally words are mis-transcribed.) Normal [facility] UA DIP, URINE (POC)on 2022 BILIRUBIN UA (POCT) Negative Negative [facility] CLARITY UA (POCT) Cloud[facility] COLOR UA (POCT) Dark yellow [facility] GLUCOSE UA (POCT) Negative Negative mg/dL [facility] Hemoglobin Ql (U) Negative Negative [facility] KETONE UA (POCT) Negative Negative mg/dL [facility] LEUKOCYTES UA (POCT) Negative Negative [facility] NITRITE UA (POCT) Negative Negative [facility] PH UA (POCT) 6.0 4.5 - 8.0 [facility] Protein Ql (U) Negative Negative mg/dL [facility] SPECIFIC GRAVITY UA (POCT) 1.015 1.005 - 1.030 [facility] UROBILINOGEN UA (POCT) 0.2 E.U./dL Normal E.U./dL [facility] OZIEL SCREENINGon 03-25-2023 [facility] XR Ribs - right Views and Ch est PAon 11-19-2022 IMPRESSION: Fractures of right-sided ribs as discussed. Band Saw Operator: BAILEY Transcribe Date/Time: Nov 19 2022 8:26A Dictated by : JON TA DO This examination was interpreted and the report reviewed and electronically signed by: JON TA DO on Nov 19 2022 8:34AM [facility] DIVISION OF RADIOLOGY * * *Final Report* [...] the seventh rib. DIVISION OF RADIOLOGY Provider, [facility] - 11/19/2022 * * *Final Report* * [...] IMPRESSION: Fractures of right-sided ribs as discussed. Band Saw Operator: BAILEY Transcribe Date/Time: Nov 19 2022 8:26A Dictated by : JON TA DO This examination was interpreted and the report reviewed and electronically signed by: JON TA DO on Nov 19 2022 8:34AM EST [facility] XR Ribs - right Views and Ch est PAOrdered By: Ccf Provider on 11-19-2022 [facility] Comprehensive metabolic 2000 panelon 11-16-2022 Albumin [Mass/Vol] 4.9 g/dL 3.9 - 4.9 g/dL [facility] ALP [Catalytic activity/Vol] 62 U/L 34 - 123 U/L [facility] ALT [Catalytic activity/Vol] 28 U/L 7 - 38 U/L [facility] Anion gap [Moles/Vol] 14 mmol/L 9 - 18 mmol/L [facility] AST [Catalytic activity/Vol] 27 U/L 13 - 35 U/L [facility] Bilirubin [Mass/Vol] 0.3 mg/dL 0.2 - 1 .3 mg/dL [facility] Calcium [Mass/Vol] 9.6 mg/dL 8.5 - 10. 2 mg/dL [facility] Chloride [Moles/Vol] 102 mmol/L 97 - 10 5 mmol/L [facility] CO2 [Moles/Vol] 23 mmol/L 22 - 30 mmol/L [facility] Creatinine [Mass/Vol] 1.06 mg/dL High 0.58 - 0.96 mg/dL [facility] Estimated Glomerular Filtration Rate 56 mL/min/1.73m Low >=60 mL/min/1.73m [facility] Glucose [Mass/Vol] 148 mg/dL High 74 - 99 mg/dL [facility] Potassium [Moles/Vol] 3.6 mmol/L Low 3.7 - 5.1 mmol/L [facility] Protein [Mass/Vol] 7.5 g/dL 6.3 - 8.0 g/dL [facility] Sodium [Moles/Vol] 139 mmol/L 136 - 144 [facility] Urea nitrogen [Mass/Vol] 23 mg/dL High 7 - 21 mg/dL [facility] LIPID PANEL, NONFASTINGon Cholesterol [Mass/Vol] 251 mg/dL High <200 mg/dL [facility] HDL Cholesterol, Nonfasting 107 mg/dL >39 mg/[facility] LDL Cholesterol, Nonfasting 128 mg/dL High <100 mg/dL [facility] LDL/HDL Ratio, Nonfasting 1.20 mg/dL <2.54 mg/dL [facility] Non HDL Cholesterol, Nonfasting 144 mg/dL High <130 mg/dL [facility] Total Chol/HDL Ratio, Nonfasting 2.35 mg/dL <5.10 mg/dL [facility] Triglycerides, Nonfasting 79 mg/dL <150 mg/dL [facility] VLDL Cholesterol, Nonfasting 16 mg/dL <30 mg/dL [facility] T3 FREE BLDon 11-16-2022 Free T3 [Mass/Vol] 2.2 pg/mL Low 2.3 - 4.1 pg/mL [facility] T4 FREE/FREE THYROXon 2022 Free T4 [Mass/Vol] 1.4 ng/dL 0.9 - 1.7 ng/dL [facility] TSH BLDon 11-16-2022 TSH Qn 1.410 m[IU]/L 0.270 - 4.200 mIU/L [facility] XR RIBS/CHEST 3V AP RIB/OBLS /CXR RIGHTon 11-16-2022 [facility] XR Ribs - right Views and Ch est PAon 11-16-2022 Radiology Study observation (narrative) [facility] Basophil percentageon 2021 Chloride [Moles/Vol] 111 mmol/L 98-107 [facility] Work Phone: Glucose [Mass/Vol] 99 mg/dL 74-106 [facility] Work Phone: [phone] Potassium [Moles/Vol] 4.2 mmol/L 3.5-5.1 [facility] Work Phone: [phone] Sodium [Moles/Vol] 141 mmol/L 136-145 [facility] Work Phone: Laboratory - Chemistry and C hemistry - challengeon 09-08-2022 CO2 [Moles/Vol] 25.0 mmol/L 21.0-32.0 [facility] Work Phone: Magnesium [Mass/Vol] 1.9 mg/dL 1.6-2.6 [facility] Work Phone: Urea nitrogen/Creatinine [Mass ratio] 31.2 mg/mg 10-20 [facility] Work Phone: [phone] No Panel Informationon 09-08 Estimated Creatinine Clearance Calc 28.10 ml/min [facility] Work Phone: Estimated GFR (MDRD) Amer 99 mL/min >60 [facility] Work Phone: Comment on above: GFR Calc Estimated GFR (MDRD) Non-Af Amer 82 mL/min >60 [facility] Work Phone: Comment on above: Non- GFR Calc Serum or plasma calcium evelin urement (mass/volume)on 09-08-2022 Calcium [Mass/Vol] 9.1 mg/dL 8.5-10.1 [facility] Work Phone: Serum or plasma creatinine m easurement (mass/volume)on 09-08-2022 Creatinine [Mass/Vol] 0.74 mg/dL 0.55-1.02 [facility] Work Phone: Comment on above: The validity of the calculated GFR & GFRAA in patients over 70 years has not been determined. Clinical correlation is essential. Serum or plasma urea nitroge n measurement (mass/volume)on 09-08-2022 Urea nitrogen [Mass/Vol] 23 mg/dL 7-18 [facility] Work Phone: Thin prep Papanicolaou smear with manual screeningon 09-08-2022 Thin prep Papanicolaou smear with manual screening 5 5-15 [facility] Work Phone: Absolute lymphocyte counton 09-07-2022 Lymphocytes Auto (Unsp spec) [#/Vol] 1.09 10*3/uL 0.83-4.51 [facility] Work Phone: Basophil percentageon 2021 Basophils/100 WBC (Bld) 0.4 % 0-1 [facility] Work Phone: Bilirubin [Mass/Vol] 0.50 mg/dL 0.20-1.00 [facility] Work Phone: Comment on above: For patients on eltr ombopag therapy, use of Dimension [place]eller TBIL is not recommended. Cholesterol [Mass/Vol] 263 mg/dL <200 [facility] Work Phone: [phone] Comment on above: <200 mg/dL Desirable 200-240 mg/dL Borderline >240 mg/dL High Risk Eosinophils/100 WBC (Bld) 1.4 % 0-5 [facility] Work Phone: Neutrophils (Bld) [#/Vol] 6.4 10*3/uL 2.0-7.7 [facility] Work Phone: Neutrophils/100 WBC (Bld) 76.9 % 47-70 [facility] Work Phone: Protein [Mass/Vol] 6.8 g/dL 6.4-8.2 [facility] Work Phone: Triglyceride [Mass/Vol] 130 mg/dL <199 [facility] Work Phone: Comment on above: The drugs N-Acetylcy steine and Metamizole may falsely depress this assay.Serum Triglycerides Reference Interval Normal <150 mg/dL Borderline high 150 - 199 mg/dL High 200 - 499 mg/dL Very High > or = 500 mg/dL WBC (Bld) [#/Vol] 8.3 10*3/uL 4.4-11.0 [facility] Work Phone: Blood erythrocytes count (nu mber/volume)on 09-07-2022 RBC (Bld) [#/Vol] 4.69 10*6/uL 4.2-5.4 [facility] Work Phone: Blood hemoglobin measurement (mass/volume)on 09-07-2022 Hemoglobin (Bld) [Mass/Vol] 14.2 g/dL 12.0-15.0 [facility] Work Phone: Blood lymphocytes/100 leukoc yteson 09-07-2022 Lymphocytes/100 WBC (Bld) 13.2 % 19-41 [facility] Work Phone: Blood monocytes/100 leukocyt eson 09-07-2022 Monocytes/100 WBC (Bld) 7.7 % 0-10 [facility] Work Phone: Blood platelet mean volumeon 09-07-2022 Platelet mean volume (Bld) [Entitic vol] 8.9 fL 6.2-12.0 [facility] Work Phone: Determination of erythrocyte mean corpuscular volume (MCV)on 09-07-2022 MCV (RBC) [Entitic vol] 93.2 fL 81-99 [facility] Work Phone: Hematocrit Auto (Bld) [Volum e fraction]on 09-07-2022 Hematocrit (Bld) [Volume fraction] 43.7 % 37-47 [facility] Work Phone: Laboratory - Chemistry and C hemistry - challengeon 09-07-2022 ALP [Catalytic activity/Vol] 58 U/L 45-117 [facility] Work Phone: ALT [Catalytic activity/Vol] 23 U/L 13-56 [facility] Work Phone: Globulin (S) [Mass/Vol] 3.4 g/dL 2.2-4.2 [facility] Work Phone: Laboratory - Hematology and Cell countson 09-07-2022 Erythrocyte distribution width (RBC) [Entitic vol] 47.8 fL 35.1-43.9 [facility] Work Phone: Erythrocyte distribution width (RBC) [Ratio] 13.9 % 11.6-14.6 [facility] Work Phone: Immature granulocytes/100 WBC (Bld) 0.400 % 0.0-0.9 [facility] Work Phone: Comment on above: IG% - Immature Granu locytes (promyelocytes, myelocytes and metamyelocytes) > 1% indicates that a LEFT SHIFT is Present. MCH (RBC) [Entitic mass] 30.3 pg 27.0-32.0 [facility] Work Phone: Nucleated RBC/100 WBC (Bld) [Ratio] 0 % 0-5 [facility] Work Phone: MCHC Auto (RBC) [Mass/Vol]on 09-07-2022 MCHC (RBC) [Mass/Vol] 32.5 g/dL 32-36 [facility] Work Phone: No Panel Informationon 09-07 Thyroid Stimulating Hormone (TSH) 0.98 uIU/mL 0.358-3.74 [facility] Work Phone: Platelets bldon 09-07-2022 Platelets (Bld) [#/Vol] 251 10*3/uL 150-450 [facility] Work Phone: Serum or plasma albumin evelin urement (mass/volume)on 09-07-2022 Albumin [Mass/Vol] 3.4 g/dL 3.2-5.0 [facility] Work Phone: Serum or plasma albumin/glob ulin mass ratioon 09-07-2022 Albumin/Globulin [Mass ratio] 1.0 {ratio} 0.9-2.4 [facility] Work Phone: Serum or plasma cholesterol in HDL measurement (mass/volume)on 09-07-2022 Cholesterol in HDL [Mass/Vol] 94 mg/dL >40 [facility] Work Phone: Comment on above: The drugs N-Acetylcy steine and Metamizole may falsely depress this assay. Reference Range HDL <40 mg/dL Low HDL Cholesterol HDL >or= 60 mg/dL High HDL Cholesterol Serum or plasma cholesterol in VLDL measurement (mass/volume)on 09-07-2022 Cholesterol in VLDL [Mass/Vol] 26 mg/dL 5-40 [facility] Work Phone: Serum or plasma low density lipoprotein (LDL) cholesterol measurement (mass/volume)on 09-07-2022 Cholesterol in LDL [Mass/Vol] 143 mg/dL 0-130 [facility] Work Phone: Thin prep Papanicolaou smear with manual screeningon 09-07-2022 Thin prep Papanicolaou smear with manual screening 9 U/L 15-37 [facility] Work Phone: Whole blood hemoglobin A1c/t otal hemoglobin ratio (mass fraction)on 09-07-2022 HbA1c (Bld) [Mass fraction] 5.1 % 3.8-5.6 [facility] Work Phone: Comment on above: Normal < 5.7 % Predi abetic 5.7 - 6.4 % Diabetic >or= 6.5 % Please note range changes. Absolute lymphocyte counton 09-06-2022 Lymphocytes Auto (Unsp spec) [#/Vol] 1.48 10*3/uL 0.83-4.51 [facility] Work Phone: Basophil percentageon 2021 Basophil percentage 0-5 SEEN /hpf 0-5 [facility] Work Phone: Basophils/100 WBC (Bld) 0.4 % 0-1 [facility] Work Phone: Bilirubin [Mass/Vol] 0.30 mg/dL 0.20-1.00 [facility] Work Phone: Comment on above: For patients on eltr ombopag therapy, use of Dimension [place] TBIL is not recommended. Chloride [Moles/Vol] 107 mmol/L 98-107 [facility] Work Phone: Eosinophils/100 WBC (Bld) 1.4 % 0-5 [facility] Work Phone: Glucose [Mass/Vol] 92 mg/dL 74-106 [facility] Work Phone: Neutrophils (Bld) [#/Vol] 6.6 10*3/uL 2.0-7.7 [facility] Work Phone: Neutrophils/100 WBC (Bld) 71.8 % 47-70 [facility] Work Phone: [phone] Potassium [Moles/Vol] 3.6 mmol/L 3.5-5.1 [facility] Work Phone: Comment on above: Slight Hemolysis, Re sult may be falsely increased. Protein [Mass/Vol] 7.3 g/dL 6.4-8.2 [facility] Work Phone: Sodium [Moles/Vol] 139 mmol/L 136-145 [facility] Work Phone: WBC (Bld) [#/Vol] 9.2 10*3/uL 4.4-11.0 [facility] Work Phone: Bilirubin Test strip Ql (U)o n 09-06-2022 Bilirubin Ql (U) Negative Negative [facility] Work Phone: Blood erythrocytes count (nu mber/volume)on 09-06-2022 RBC (Bld) [#/Vol] 4.73 10*6/uL 4.2-5.4 [facility] Work Phone: Blood hemoglobin measurement (mass/volume)on 09-06-2022 Hemoglobin (Bld) [Mass/Vol] 14.7 g/dL 12.0-15.0 [facility] Work Phone: Blood lymphocytes/100 leukoc yteson 09-06-2022 Lymphocytes/100 WBC (Bld) 16.0 % 19-41 [facility] Work Phone: Blood monocytes/100 leukocyt eson 09-06-2022 Monocytes/100 WBC (Bld) 10.2 % 0-10 [facility] Work Phone: Blood platelet mean volumeon 09-06-2022 Platelet mean volume (Bld) [Entitic vol] 9.3 fL 6.2-12.0 [facility] Work Phone: Determination of erythrocyte mean corpuscular volume (MCV)on 09-06-2022 MCV (RBC) [Entitic vol] 92.2 fL 81-99 [facility] Work Phone: Hematocrit Auto (Bld) [Volum e fraction]on 09-06-2022 Hematocrit (Bld) [Volume fraction] 43.6 % 37-47 [facility] Work Phone: INR in Blood by Coagulation assayon 09-06-2022 INR Coag (Bld) [Relative time] 1.0 {INR} [facility] Work Phone: Ketones Test strip Ql (U)on 09-06-2022 Ketones Ql (U) Negative Negative [facility] Work Phone: Laboratory - Chemistry and C hemistry - challengeon 09-06-2022 Magnesium [Mass/Vol] 2.0 mg/dL 1.6-2.6 [facility] Work Phone: Comment on above: Slight Hemolysis, Re sult may be falsely increased. ALP [Catalytic activity/Vol] 55 U/L 45-117 [facility] Work Phone: ALT [Catalytic activity/Vol] 28 U/L 13-56 [facility] Work Phone: CO2 [Moles/Vol] 29.0 mmol/L 21.0-32.0 [facility] Work Phone: Globulin (S) [Mass/Vol] 3.5 g/dL 2.2-4.2 [facility] Work Phone: Urea nitrogen/Creatinine [Mass ratio] 22.7 mg/mg 10-20 [facility] Work Phone: Laboratory - Coagulationon 1 PT Coag (PPP) [Time] 12.8 s 11.7-14.9 [facility] Work Phone: Laboratory - Drug toxicology on 09-06-2022 Amphetamines Ql (U) Negative <1000 ng/mL [facility] Work Phone: Benzodiazepines Ql (U) Negative < 200 ng/mL [facility] Work Phone: Cannabinoids Screen Ql (U) Negative < 50 ng/mL [facility] Work Phone: Cocaine Ql (U) Negative < 300 ng/mL [facility] Work Phone: Opiates Ql (U) Negative < 300 ng/mL [facility] Work Phone: Laboratory - Hematology and Cell countson 09-06-2022 Erythrocyte distribution width (RBC) [Entitic vol] 46.8 fL 35.1-43.9 [facility] Work Phone: Erythrocyte distribution width (RBC) [Ratio] 13.9 % 11.6-14.6 [facility] Work Phone: Immature granulocytes/100 WBC (Bld) 0.200 % 0.0-0.9 [facility] Work Phone: Comment on above: IG% - Immature Granu locytes (promyelocytes, myelocytes and metamyelocytes) > 1% indicates that a LEFT SHIFT is Present. MCH (RBC) [Entitic mass] 31.1 pg 27.0-32.0 [facility] Work Phone: Nucleated RBC/100 WBC (Bld) [Ratio] 0 % 0-5 [facility] Work Phone: MCHC Auto (RBC) [Mass/Vol]on 09-06-2022 MCHC (RBC) [Mass/Vol] 33.7 g/dL 32-36 [facility] Work Phone: Mucus LM Ql (Urine sed)on Mucus Ql (Urine sed) 0 SEEN /hpf [facility] Work Phone: Nitrite Test strip Ql (U)on 09-06-2022 Nitrite Ql (U) Positive Negative [facility] Work Phone: No Panel Informationon 09-06 MDMA (Ecstasy) Screen Negative < 500 ng/mL [facility] Work Phone: Urine Barbiturates Screen Negative < 200 ng/mL [facility] Work Phone: Urine Drug Screen Comment [facility] Work Phone: Comment on above: CONFIRMATORY TESTING [...] Urine Methadone Screen Negative < 300 ng/mL [facility] Work Phone: Estimated Creatinine Clearance Calc 23.61 ml/min [facility] Work Phone: Estimated GFR (MDRD) Amer 53 mL/min >60 [facility] Work Phone: Comment on above: GFR Calc Estimated GFR (MDRD) Non-Af Amer 44 mL/min >60 [facility] Work Phone: Comment on above: Non- GFR Calc Troponin I High Sensitivity 8 pg/mL 3.0-54.0 [facility] Work Phone: Comment on above: Please Note: New Michelle t Units and Gender Specific Reference Ranges. For more information see Policy Stat Procedure [place]eller High Sensitivity Troponin (TNIH) and attachments. Platelets bldon 09-06-2022 Platelets (Bld) [#/Vol] 260 10*3/uL 150-450 [facility] Work Phone: Protein Test strip Ql (U)on 09-06-2022 Protein Ql (U) Negative Negative [facility] Work Phone: Serum or plasma albumin evelin urement (mass/volume)on 09-06-2022 Albumin [Mass/Vol] 3.8 g/dL 3.2-5.0 [facility] Work Phone: Serum or plasma albumin/glob ulin mass ratioon 09-06-2022 Albumin/Globulin [Mass ratio] 1.1 {ratio} 0.9-2.4 [facility] Work Phone: Serum or plasma calcium evelin urement (mass/volume)on 09-06-2022 Calcium [Mass/Vol] 8.8 mg/dL 8.5-10.1 [facility] Work Phone: Serum or plasma creatinine m easurement (mass/volume)on 09-06-2022 Creatinine [Mass/Vol] 1.28 mg/dL 0.55-1.02 [facility] Work Phone: Comment on above: The validity of the calculated GFR & GFRAA in patients over 70 years has not been determined. Clinical correlation is essential. Serum or plasma urea nitroge n measurement (mass/volume)on 09-06-2022 Urea nitrogen [Mass/Vol] 29 mg/dL 7-18 [facility] Work Phone: Squamous epithelial cells de tection in urine sediment by light microscopyon 09-06-2022 Epithelial cells.squamous LM Ql (Urine sed) 0-5 SEEN /hpf 5-10 [facility] Work Phone: Thin prep Papanicolaou smear with manual screeningon 09-06-2022 Thin prep Papanicolaou smear with manual screening 18 U/L 15-37 [facility] Work Phone: Comment on above: Slight Hemolysis, Re sult may be falsely increased. Thin prep Papanicolaou smear with manual screening 3 5-15 [facility] Work Phone: Urine blood detectionon 08-10 RBC Ql (U) Negative Negative [facility] Work Phone: RBC Ql (U) 0 SEEN /hpf 0-5 [facility] Work Phone: Urine clarityon 09-06-2022 Clarity (U) Sl. Cloudy Clear [facility] Work Phone: Urine color determinationon 09-06-2022 Color (U) Yellow Yellow [facility] Work Phone: Urine glucose detectionon Glucose Ql (U) Normal mg/dl Normal [facility] Work Phone: Urine leukocyte esterase det ection by dipstickon 09-06-2022 Leukocyte esterase Test strip Ql (U) 100 /ul Negative [facility] Work Phone: Urine pHon 09-06-2022 pH (U) 5.0 [pH] 5.0 - 8.0 [facility] Work Phone: Urine phencyclidine (PCP) de tectionon 09-06-2022 Phencyclidine Ql (U) Negative < 25 ng/mL [facility] Work Phone: Urine sediment bacteria coun t by microscopy (number/high power field)on 09-06-2022 Bacteria LM.HPF (Urine sed) [#/Area] 4 /[HPF] None Seen [facility] Work Phone: Urine specific gravity measu rementon 09-06-2022 Specific gravity (U) [Rel density] 1.015 1.002-1.030 [facility] Work Phone: [phone] Urobilinogen Auto test strip Ql (U)on 09-06-2022 Urobilinogen Ql (U) Normal mg/dl Normal [facility] Work Phone: Absolute lymphocyte counton 09-01-2022 Lymphocytes Auto (Unsp spec) [#/Vol] 0.85 10*3/uL 0.83-4.51 [facility] Work Phone: Basophil percentageon 2021 Basophil percentage 0 SEEN /hpf 0-5 [facility] Work Phone: Basophils/100 WBC (Bld) 0.5 % 0-1 [facility] Work Phone: [phone] Chloride [Moles/Vol] 110 mmol/L 98-107 [facility] Work Phone: Eosinophils/100 WBC (Bld) 0.7 % 0-5 [facility] Work Phone: Glucose [Mass/Vol] 103 mg/dL 74-106 [facility] Work Phone: Comment on above: Fasting Glucose resu lt from 100 to 125 mg/dL suggests IMPAIRED HOMEOSTASIS per A.D.A. criteria. Neutrophils (Bld) [#/Vol] 4.7 10*3/uL 2.0-7.7 [facility] Work Phone: Neutrophils/100 WBC (Bld) 78.3 % 47-70 [facility] Work Phone: Potassium [Moles/Vol] 3.8 mmol/L 3.5-5.1 [facility] Work Phone: Sodium [Moles/Vol] 140 mmol/L 136-145 [facility] Work Phone: WBC (Bld) [#/Vol] 6.0 10*3/uL 4.4-11.0 [facility] Work Phone: [phone] Bilirubin Test strip Ql (U)o n 09-01-2022 Bilirubin Ql (U) Negative Negative [facility] Work Phone: Blood erythrocytes count (nu mber/volume)on 09-01-2022 RBC (Bld) [#/Vol] 4.96 10*6/uL 4.2-5.4 [facility] Work Phone: Blood hemoglobin measurement (mass/volume)on 09-01-2022 Hemoglobin (Bld) [Mass/Vol] 14.9 g/dL 12.0-15.0 [facility] Work Phone: [phone] Blood lymphocytes/100 leukoc yteson 09-01-2022 Lymphocytes/100 WBC (Bld) 14.3 % 19-41 [facility] Work Phone: [phone] Blood monocytes/100 leukocyt eson 09-01-2022 Monocytes/100 WBC (Bld) 5.9 % 0-10 [facility] Work Phone: Blood platelet mean volumeon 09-01-2022 Platelet mean volume (Bld) [Entitic vol] 9.1 fL 6.2-12.0 [facility] Work Phone: Determination of erythrocyte mean corpuscular volume (MCV)on 09-01-2022 MCV (RBC) [Entitic vol] 95.4 fL 81-99 [facility] Work Phone: Hematocrit Auto (Bld) [Volum e fraction]on 09-01-2022 Hematocrit (Bld) [Volume fraction] 47.3 % 37-47 [facility] Work Phone: [phone] Ketones Test strip Ql (U)on 09-01-2022 Ketones Ql (U) Negative Negative [facility] Work Phone: Laboratory - Chemistry and C hemistry - challengeon 09-01-2022 CO2 [Moles/Vol] 25.0 mmol/L 21.0-32.0 [facility] Work Phone: Urea nitrogen/Creatinine [Mass ratio] 10.6 mg/mg 10-20 [facility] Work Phone: Laboratory - Drug toxicology on 09-01-2022 Amphetamines Ql (U) Negative <1000 ng/mL [facility] Work Phone: Benzodiazepines Ql (U) Negative < 200 ng/mL [facility] Work Phone: Cannabinoids Screen Ql (U) Negative < 50 ng/mL [facility] Work Phone: Cocaine Ql (U) Negative < 300 ng/mL [facility] Work Phone: Opiates Ql (U) Negative < 300 ng/mL [facility] Work Phone: Laboratory - Hematology and Cell countson 09-01-2022 Erythrocyte distribution width (RBC) [Entitic vol] 49.8 fL 35.1-43.9 [facility] Work Phone: Erythrocyte distribution width (RBC) [Ratio] 14.2 % 11.6-14.6 [facility] Work Phone: Immature granulocytes/100 WBC (Bld) 0.300 % 0.0-0.9 [facility] Work Phone: Comment on above: IG% - Immature Granu locytes (promyelocytes, myelocytes and metamyelocytes) > 1% indicates that a LEFT SHIFT is Present. MCH (RBC) [Entitic mass] 30.0 pg 27.0-32.0 [facility] Work Phone: Nucleated RBC/100 WBC (Bld) [Ratio] 0 % 0-5 [facility] Work Phone: MCHC Auto (RBC) [Mass/Vol]on 09-01-2022 MCHC (RBC) [Mass/Vol] 31.5 g/dL 32-36 [facility] Work Phone: Mucus LM Ql (Urine sed)on Mucus Ql (Urine sed) 0 SEEN /hpf [facility] Work Phone: Nitrite Test strip Ql (U)on 09-01-2022 Nitrite Ql (U) Negative Negative [facility] Work Phone: No Panel Informationon 09-01 MDMA (Ecstasy) Screen Negative < 500 ng/mL [facility] Work Phone: Urine Barbiturates Screen Negative < 200 ng/mL [facility] Work Phone: Urine Drug Screen Comment [facility] Work Phone: Comment on above: CONFIRMATORY TESTING [...] Urine Methadone Screen Negative < 300 ng/mL [facility] Work Phone: Estimated Creatinine Clearance Calc 37.02 ml/min [facility] Work Phone: Estimated GFR (MDRD) Amer 84 mL/min >60 [facility] Work Phone: Comment on above: GFR Calc Estimated GFR (MDRD) Non-Af Amer 70 mL/min >60 [facility] Work Phone: Comment on above: Non- GFR Calc Ethyl Alcohol Level < 3.0 mg/dL [facility] Work Phone: Comment on above: The serum:whole bloo d ethanol ratio is approximately 1.14and varies slightly with hematocrit. Medical Alcohol reference interval and critical value innon-tolerant individuals; 50 - 100 Impairment 100 Intoxication 100 - 250 Severe Poisoning 250 - 400 Deep/possible fatal coma Platelets bldon 09-01-2022 Platelets (Bld) [#/Vol] 213 10*3/uL 150-450 [facility] Work Phone: Protein Test strip Ql (U)on 09-01-2022 Protein Ql (U) 15 mg/dl Negative [facility] Work Phone: Serum or plasma calcium evelin urement (mass/volume)on 09-01-2022 Calcium [Mass/Vol] 9.0 mg/dL 8.5-10.1 [facility] Work Phone: Serum or plasma creatinine m easurement (mass/volume)on 09-01-2022 Creatinine [Mass/Vol] 0.85 mg/dL 0.55-1.02 [facility] Work Phone: Comment on above: The validity of the calculated GFR & GFRAA in patients over 70 years has not been determined. Clinical correlation is essential. Serum or plasma urea nitroge n measurement (mass/volume)on 09-01-2022 Urea nitrogen [Mass/Vol] 9 mg/dL 7-18 [facility] Work Phone: Squamous epithelial cells de tection in urine sediment by light microscopyon 09-01-2022 Epithelial cells.squamous LM Ql (Urine sed) 0 SEEN /hpf 5-10 [facility] Work Phone: Thin prep Papanicolaou smear with manual screeningon 09-01-2022 Thin prep Papanicolaou smear with manual screening 5 5-15 [facility] Work Phone: Urine blood detectionon 08-10 RBC Ql (U) 10 /ul Negative [facility] [facility]: RBC Ql (U) 0 SEEN /hpf 0-5 [facility] Work Phone: Urine clarityon 09-01-2022 Clarity (U) Clear Clear [facility] Work Phone: Urine color determinationon 09-01-2022 Color (U) Yellow Yellow [facility] Work Phone: Urine glucose detectionon Glucose Ql (U) Normal mg/dl Normal [facility] Work Phone: Urine leukocyte esterase det ection by dipstickon 09-01-2022 Leukocyte esterase Test strip Ql (U) 25 /ul Negative [facility] Work Phone: Urine pHon 09-01-2022 pH (U) 6.5 [pH] 5.0 - 8.0 [facility] Work Phone: Urine phencyclidine (PCP) de tectionon 09-01-2022 Phencyclidine Ql (U) Negative < 25 ng/mL [facility] Work Phone: Urine sediment bacteria coun t by microscopy (number/high power field)on 09-01-2022 Bacteria LM.HPF (Urine sed) [#/Area] 4 /[HPF] None Seen [facility] Work Phone: Urine specific gravity measu rementon 09-01-2022 Specific gravity (U) [Rel density] 1.010 1.002-1.030 [facility] Work Phone: Urobilinogen Auto test strip Ql (U)on 09-01-2022 Urobilinogen Ql (U) Normal mg/dl Normal [facility] Work Phone: XR Chest PA and Lateralon IMPRESSION: No acute radiographic abnormality. Band Saw Operator: PSCB Transcribe Date/Time: Aug 07 2022 12:32P Dictated by : CHERI YEAGER MD This examination was interpreted and the report reviewed and electronically signed by: CHERI YEAGER MD on Aug 07 2022 12:35PM [facility] DIVISION OF RADIOLOGY * * *Final Report* [...] spine. DIVISION OF RADIOLOGY Provider, Deanna Lino [facility] - 08/07/2022 * * *Final Report* [...] spine. IMPRESSION IMPRESSION: No acute radiographic abnormality. Band Saw Operator: PSCB Transcribe Date/Time: Aug 07 2022 12:32P Dictated by : CHERI YEAGER MD This examination was interpreted and the report reviewed and electronically signed by: CHERI YEAGER MD on Aug 07 2022 12:35PM EST [facility] Radiology Study observation (narrative) [facility] XR Chest PA and LateralOrder ed By: Ccf Provider on 08-07-2022 [facility] DXA-AXIAL SKELETONon 022 [facility] URINE CULTUREon 04-04-2022 Bacteria identified Cx Nom (U) >=100,000 CFU/ml Escherichia coli Abnormal [facility] URINE CULTUREon 04-02-2022 Bacteria identified Cx Nom (U) Invalid Interpretation Code [facility] Urinalysis complete panel (U )on 04-02-2022 Bilirubin Ql (U) Negative Negative [facility] Clarity (Unsp spec) Clear Clear [facility] Color (U) Light Yellow Yellow [facility] Epithelial cells LM.HPF (Urine sed) [#/Area] Few [facility] Glucose Test strip (U) [Mass/Vol] Negative Negative [facility] Hemoglobin Ql (U) Negative Negative [facility] Ketones Ql (U) Negative Negative [facility] Leukocyte esterase Test strip Ql (U) Negative Negative [facility] Nitrite Ql (U) Negative Negative [facility] pH (U) 7.0 [pH] 5.0 - 8.0 [facility] Protein (U) [Mass/Vol] Negative Negative [facility] RBC LM.HPF (Urine sed) [#/Area] 0-3 /HPF 0-3 /HPF [facility] Specific gravity (U) [Rel density] 1.010 1.005 - 1.030 [facility] Urobilinogen Ql (U) Negative Negative [facility] WBC LM.HPF (Urine sed) [#/Area] 0-5 /HPF 0-5 /HPF [facility] VITAMIN D 25 HYDROXYon 03-31 25-hydroxyvitamin D3 [Mass/Vol] 61.0 ng/mL 31.0 - 80.0 ng/mL [facility] CBC panel Auto (Bld)on 03-30 Erythrocyte distribution width (RBC) [Ratio] 12.6 % 11.5 - 15.0 % [facility] Hematocrit (Bld) [Volume fraction] 44.2 % 36.0 - 46.0 % [facility] Hemoglobin (Bld) [Mass/Vol] 14.1 g/dL 11.5 - 15.5 g/dL [facility] MCH (RBC) [Entitic mass] 30.7 pg 26.0 - 34.0 pg [facility] MCHC (RBC) [Mass/Vol] 31.9 g/dL 30.5 - 36.0 g/dL [facility] MCV (RBC) [Entitic vol] 96.3 fL 80.0 - 100.0 fL [facility] Nucleated RBC (Bld) [#/Vol] <0.01 k/uL [facility] Platelet mean volume (Bld) [Entitic vol] 10.2 fL 9.0 - 12.7 fL [facility] Platelets (Bld) [#/Vol] 252 10*3/uL 150 - 400 k/uL [facility] RBC (Bld) [#/Vol] 4.59 10*6/uL 3.90 - 5.2 0 m/uL [facility] WBC (Bld) [#/Vol] 7.71 10*3/uL 3.70 - 11. 00 k/uL [facility] Comprehensive metabolic 2000 panelon 03-30-2022 Albumin [Mass/Vol] 4.5 g/dL 3.9 - 4.9 g/dL [facility] ALP [Catalytic activity/Vol] 47 U/L 34 - 123 U/L [facility] ALT [Catalytic activity/Vol] 28 U/L 7 - 38 U/L [facility] Anion gap [Moles/Vol] 12 mmol/L 9 - 18 mmol/L [facility] AST [Catalytic activity/Vol] 19 U/L 13 - 35 U/L [facility] Bilirubin [Mass/Vol] 0.2 mg/dL 0.2 - 1 .3 mg/dL [facility] Calcium [Mass/Vol] 9.3 mg/dL 8.5 - 10. 2 mg/dL [facility] Chloride [Moles/Vol] 101 mmol/L 97 - 10 5 mmol/L [facility] CO2 [Moles/Vol] 26 mmol/L 22 - 30 mmol/L [facility] Creatinine [Mass/Vol] 0.96 mg/dL 0.58 - 0.96 mg/dL [facility] Estimated Glomerular Filtration Rate 63 mL/min/1.73m >=60 mL/min/1.73m [facility] Glucose [Mass/Vol] 91 mg/dL 74 - 99 mg/dL [facility] Potassium [Moles/Vol] 3.4 mmol/L Low 3.7 - 5.1 mmol/L [facility] Protein [Mass/Vol] 6.8 g/dL 6.3 - 8.0 g/dL [facility] Sodium [Moles/Vol] 139 mmol/L 136 - 144 mmol/L [facility] Urea nitrogen [Mass/Vol] 14 mg/dL 7 - 21 mg/dL [facility] T3 FREE [facility] 03-30-2022 Free T3 [Mass/Vol] 2.1 pg/mL Low 2.3 - 4.1 pg/mL [facility] T4 FREE/FREE THYROXon 2021 Free T4 [Mass/Vol] 1.3 ng/dL 0.9 - 1.7 ng/dL [facility] TSH [facility] 03-30-2022 TSH Qn 1.140 m[IU]/L 0.270 - 4.200 mIU/L [facility] XR CHEST 2V FRONTAL/LATon [facility] XR Chest PA and Lateralon IMPRESSION: Hazy opacities in the lower lung on lateral view. Consider follow-up. Band Saw Operator: BAILEY Transcribe Date/Time: Mar 30 2022 2:18P [...] spine. ZZZ_DO_[id number]_ USE_DIVISIO N OF RADIOLOGY Provider, [facility] - 03/30/2022 * * *Final Report* * [...] lower lung on lateral view. Consider follow-up. Band Saw Operator: BAILEY Transcribe Date/Time: Mar 30 2022 2:18P Dictated by : LENORE BLACKMON MD This examination was interpreted and the report reviewed and electronically signed by: LENORE BLACKMON MD on Mar 30 2022 2:19PM EST [facility] Radiology Study observation (narrative) [facility] XR Chest PA and LateralOrder ed By: Ccf Provider on 03-30-2022 [facility] OZIEL SCREENINGon 03-20-2022 [facility] No Panel InformationOrdered By: Ccf Provider on 11-25-2021 [facility] No Panel Informationon 11-25 Radiology Study observation (narrative) [facility] XR Hand - left PA and Latera l and Obliqueon 11-25-2021 Interpretation and review of laboratory results Abnormal [facility] Radiology Result ACTIONABLE Abnormal [facility] Comment on above: This report contains [...] be communicated with the ordering provider via [employer] staff message or phone message by [employer] within 2 business days of report finalization. Algorithms for management of incidental imaging findings can be found on the [facility] Intranet Sharepoint site at: [email or web address] [email or web address]%20Fi ndi ngs%20at%20Imaging/Forms /[email or web address] Band Saw Operator: BAILEY Transcribe Date/Time: Nov 25 2021 11:53A Dictated by : SATNAM GONZALES DO This examination was interpreted and the report reviewed and electronically signed by: SATNAM GONZALES DO on Nov 25 2021 11:58AM [facility] DIVISION OF RADIOLOGY * * *Final Report* [...] subcentimeter joint bodies. DIVISION OF RADIOLOGY Provider, [facility] - 11/25/2021 * * *Final Report* * [...] be communicated with the ordering provider via [employer] staff message or phone message by [employer] within 2 business days of report finalization. Algorithms for management of incidental imaging findings can be found on the [facility] Intranet Sharepoint site at: [email or web address] [email or web address]%20Incidental%20Fi ndi ngs%20at%20Imaging/Forms /[email or web address].aspx Band Saw Operator: BAILEY Transcribe Date/Time: Nov 25 2021 11:53A Dictated by : SATNAM GONZALES DO This examination was interpreted and the report reviewed and electronically signed by: SATNAM GONZALES DO on Nov 25 2021 11:58AM [facility] XR Ribs - right Views and [facility] PAon 11-25-2021 IMPRESSION: Subacute and remote fractures without definite acute fracture. Band Saw Operator: [facility] Transcribe Date/Time: Nov 25 2021 12:10P Dictated by : ALE LAGUERRE MD This examination was interpreted and the report reviewed and electronically signed by: ALE LAGUERRE MD on Nov 25 2021 12:13PM [facility] DIVISION OF RADIOLOGY * * *Final Report* [...] rotator cuff tear. DIVISION OF RADIOLOGY Provider, [facility] - 11/25/2021 * * *Final Report* * [...] and remote fractures without definite acute fracture. Band Saw Operator: [facility] Transcribe Date/Time: Nov 25 2021 12:10P Dictated by : ALE LAGUERRE MD This examination was interpreted and the report reviewed and electronically signed by: ALE LAGUERRE MD on Nov 25 2021 12:13PM [facility] COVID-19 virus antigen assay SARS-CoV-2 (COVID-19) Ag IA.rapid Ql (Resp) [facility] Work Phone: Culture, urine Bacteria identified Cx Nom (U) Escherichia coli [facility] Work Phone: Vital Signs Date Time Vital Sign Value Performing Clinician Facility 05-25-2025 13:09-0400 Body temperature 97 [degF] Dr. Chance Kolb MD Work Phone: [facility] 05-25-2025 13:09-0400 Diastolic blood pressure 61 mm[Hg] Dr. Chance Kolb MD Work Phone: [facility] 05-25-2025 13:09-0400 Heart rate 89 /min Dr. Chance Kolb MD Work Phone: [facility] 05-25-2025 13:09-0400 Respiratory rate 18 /min Dr. Chance Kolb MD Work Phone: [facility] 05-25-2025 13:09-0400 Systolic blood pressure 120 mm[Hg] Dr. Chance Kolb MD Work Phone: [facility] 05-04-2025 14:41-0400 Body height 142 cm Nguyễn Stringer AIR TWISTER WINDER.PEDIATRICIAN ACTIVE PRACTICE Work Phone: [facility] 05-04-2025 14:41-0400 Body mass index (BMI) [Ratio] 20.53 kg/m2 Nguyễn Stringer AIR TWISTER WINDER.PEDIATRICIAN ACTIVE PRACTICE Work Phone: [facility] 05-04-2025 14:41-0400 Body weight 41.4 kg Nguyễn Stringer AIR TWISTER WINDER.PEDIATRICIAN ACTIVE PRACTICE Work Phone: [facility] 05-04-2025 14:41-0400 Diastolic blood pressure 54 mm[Hg] Nguyễn Stringer AIR TWISTER WINDER.PEDIATRICIAN ACTIVE PRACTICE Work Phone: [facility] 05-04-2025 14:41-0400 Heart rate 94 /min Nguyễn Stringer AIR TWISTER WINDER.PEDIATRICIAN ACTIVE PRACTICE Work Phone: [facility] 05-04-2025 14:41-0400 Respiratory rate 16 /min Nguyễn Stringer AIR TWISTER WINDER.PEDIATRICIAN ACTIVE PRACTICE Work Phone: [facility] 05-04-2025 14:41-0400 Systolic blood pressure 102 mm[Hg] Nguyễn Stringer AIR TWISTER WINDER.PEDIATRICIAN ACTIVE PRACTICE Work Phone: [facility] 05-04-2025 13:08-0400 Body temperature 96.5 [degF] Dr. Chance Kolb MD Work Phone: [facility] 05-04-2025 13:08-0400 Diastolic blood pressure 60 mm[Hg] Dr. Chance Kolb MD Work Phone: 7(976)793-416980 [place] [address] 05-04-2025 13:08-0400 Heart rate 91 /min Dr. Chance Kolb MD Work Phone: 1(893)503-005215 [place] [address] 05-04-2025 13:08-0400 Respiratory rate 16 /min Dr. Chance Kolb MD Work Phone: 6(897)776-876915 [place] [address] 05-04-2025 13:08-0400 Systolic blood pressure 93 mm[Hg] Dr. Chance Kolb MD Work Phone: 4(774)959-836915 [place] [address] 03-30-2025 13:13-0400 Body temperature 97.7 [degF] Dr. Chance Kolb MD Work Phone: 4(495)608-564515 [place] [address] 03-30-2025 13:13-0400 Diastolic blood pressure 61 mm[Hg] Dr. Chance Kolb MD Work Phone: 7(043)394-289515 [place] [address] 03-30-2025 13:13-0400 Heart rate 91 /min Dr. Chance Kolb MD Work Phone: 7(283)980-619315 [place] [address] 03-30-2025 13:13-0400 Respiratory rate 14 /min Dr. Chance Kolb MD Work Phone: 8(174)433-888615 [place] [address] 03-30-2025 13:13-0400 Systolic blood pressure 112 mm[Hg] Dr. Chance Kolb MD Work Phone: 9(839)108-243880 [place] [address] 03-22-2025 09:42-0400 Body mass index (BMI) [Ratio] 21.12 kg/m2 Nguyễn Stringer APRN.PEDIATRICIAN ACTIVE PRACTICE Work Phone: [facility] 03-22-2025 09:42-0400 Body weight 43.5 kg Nguyễn Stringer APRN.PEDIATRICIAN ACTIVE PRACTICE Work Phone: [facility] 03-22-2025 09:42-0400 Diastolic blood pressure 58 mm[Hg] Nguyễn Stringer APRN.PEDIATRICIAN ACTIVE PRACTICE Work Phone: [facility] 03-22-2025 09:42-0400 Heart rate 74 /min Nguyễn Stringer AIR TWISTER WINDER.PEDIATRICIAN ACTIVE PRACTICE Work Phone: [facility] 03-22-2025 09:42-0400 Respiratory rate 16 /min Nguyễn Stringer AIR TWISTER WINDER.PEDIATRICIAN ACTIVE PRACTICE Work Phone: [facility] 03-22-2025 09:42-0400 Systolic blood pressure 100 mm[Hg] Nguyễn Stringer AIR TWISTER WINDER.PEDIATRICIAN ACTIVE PRACTICE Work Phone: [facility] 03-18-2025 13:04-0400 Body temperature 98.7 [degF] Dr. Chance Kolb MD Work Phone: 4(632)031-952280 [place] [address] 03-18-2025 13:04-0400 Diastolic blood pressure 66 mm[Hg] Dr. Chance Kolb MD Work Phone: 8(978)649-710580 [place] [address] 03-18-2025 13:04-0400 Heart rate 74 /min Dr. Chance Kolb MD Work Phone: 6(089)129-594680 [place] [address] 03-18-2025 13:04-0400 Respiratory rate 18 /min Dr. Chance Kolb MD Work Phone: 0(472)760-607580 [place] [address] 03-18-2025 13:04-0400 SaO2% (BldA) [Mass fraction] 98 % Dr. Chance Kolb MD Work Phone: 6(965)119-878880 [place] [address] 03-18-2025 13:04-0400 Systolic blood pressure 102 mm[Hg] Dr. Chance Kolb MD Work Phone: [facility] 03-18-2025 09:23-0400 Body height 147.[address] Chance Kolb MD Work Phone: 9(175)177-092080 [place] [address] 03-18-2025 09:23-0400 Body mass index (BMI) [Ratio] 18.8 kg/m2 Dr. Chance Kolb MD Work Phone: 4(009)427-579580 [place] [address] 03-18-2025 09:23-0400 Body weight 40.[address] Chance Kolb MD Work Phone: 6(959)398-071115 [place] [address] 03-13-2025 21:15-0400 Body temperature 97.8 [degF] Dr. Chance Kolb MD Work Phone: 5(804)356-586015 [place] [address] 03-13-2025 21:15-0400 Diastolic blood pressure 88 mm[Hg] Dr. Chance Kolb MD Work Phone: 8(892)308-080815 [place] [address] 03-13-2025 21:15-0400 Heart rate 76 /min Dr. Chance Kolb MD Work Phone: 3(149)137-608315 [place] [address] 03-13-2025 21:15-0400 Respiratory rate 18 /min Dr. Chance Kolb MD Work Phone: 4(089)408-988415 [place] [address] 03-13-2025 21:15-0400 SaO2% (BldA) [Mass fraction] 100 % Dr. Chance Kolb MD Work Phone: 4(886)644-661315 [place] [address] 03-13-2025 21:15-0400 Systolic blood pressure 138 mm[Hg] Dr. Chance Kolb MD Work Phone: 4(488)957-946815 [place] [address] 03-13-2025 19:13-0400 Body height 147.[address] Chance Kolb MD Work Phone: 5(434)208-400715 [place] [address] 03-13-2025 19:13-0400 Body mass index (BMI) [Ratio] 19.4 kg/m2 Dr. Chance Kolb MD Work Phone: 3(114)448-686815 [place] [address] 03-13-2025 19:13-0400 Body weight 42.[address] Chance Kolb MD Work Phone: 9(350)818-449715 [place] [address] 03-09-2025 12:55-0400 Body temperature 98.3 [degF] Dr. Chance Kolb MD Work Phone: 3(509)581-066015 [place] [address] 03-09-2025 12:55-0400 Diastolic blood pressure 67 mm[Hg] Dr. Chance Kolb MD Work Phone: 1(727)824-118915 [place] [address] 03-09-2025 12:55-0400 Heart rate 78 /min Dr. Chance Kolb MD Work Phone: 9(697)507-191315 [place] [address] 03-09-2025 12:55-0400 Respiratory rate 18 /min Dr. Chance Kolb MD Work Phone: 1(391)486-461315 [place] [address] 03-09-2025 12:55-0400 Systolic blood pressure 124 mm[Hg] Dr. Chance Kolb MD Work Phone: 4(186)329-394315 [place] [address] 03-02-2025 13:34-0400 Body mass index (BMI) [Ratio] 19.5 kg/m2 Dr. Chance Kolb MD Work Phone: 8(297)519-510215 [place] [address] 03-02-2025 13:34-0400 Body temperature 98.7 [degF] Dr. Chance Kolb MD Work Phone: 3(973)769-589815 [place] [address] 03-02-2025 13:34-0400 Diastolic blood pressure 56 mm[Hg] Dr. Chance Kolb MD Work Phone: 6(242)202-902515 [place] [address] 03-02-2025 13:34-0400 Heart rate 91 /min Dr. Chance Kolb MD Work Phone: 3(195)605-063615 [place] [address] 03-02-2025 13:34-0400 Respiratory rate 16 /min Dr. Chance Kolb MD Work Phone: 5(058)074-528515 [place] [address] 03-02-2025 13:34-0400 Systolic blood pressure 99 mm[Hg] Dr. Chance Kolb MD Work Phone: 5(191)031-762215 [place] [address] 02-07-2025 00:21-0400 Body weight 43.[address] Chance Kolb MD Work Phone: 4(356)454-231315 [place] [address] 02-02-2025 14:09-0400 Body mass index (BMI) [Ratio] 19.5 kg/m2 Dr. Chance Kolb MD Work Phone: 5(580)015-897915 [place] [address] 02-02-2025 14:09-0400 Body temperature 97 [degF] Dr. Chance Kolb MD Work Phone: 5(231)382-577915 [place] [address] 02-02-2025 14:09-0400 Diastolic blood pressure 66 mm[Hg] Dr. Chance Kolb MD Work Phone: 3(828)368-950715 [place] [address] 02-02-2025 14:09-0400 Heart rate 96 /min Dr. Chance Kolb MD Work Phone: 7(849)335-705515 [place] [address] 02-02-2025 14:09-0400 Respiratory rate 18 /min Dr. Chance Kolb MD Work Phone: 4(295)536-583915 [place] [address] 02-02-2025 14:09-0400 Systolic blood pressure 106 mm[Hg] Dr. Chance Kolb MD Work Phone: 4(023)456-154615 [place] [address] 01-07-2025 00:47-0400 Body weight 43.[address] Chance Kolb MD Work Phone: 5(729)229-656615 [place] [address] 01-06-2025 14:05-0400 Body height 148.[address] Chance Kolb MD Work Phone: 9(066)763-679415 [place] [address] 01-06-2025 14:05-0400 Body mass index (BMI) [Ratio] 19.5 kg/m2 Dr. Chance Kolb MD Work Phone: 0(748)586-659015 [place] [address] 01-06-2025 14:05-0400 Body temperature 97.7 [degF] Dr. Chance Kolb MD Work Phone: 8(629)057-942615 [place] [address] 01-06-2025 14:05-0400 Body weight 43.[address] Chance Kolb MD Work Phone: 8(752)990-842915 [place] [address] 01-06-2025 14:05-0400 Diastolic blood pressure 60 mm[Hg] Dr. Chance Kolb MD Work Phone: 7(353)485-517315 [place] [address] 01-06-2025 14:05-0400 Heart rate 81 /min Dr. Chance Kolb MD Work Phone: 2(209)223-627915 [place] [address] 01-06-2025 14:05-0400 Respiratory rate 16 /min Dr. Chance Kolb MD Work Phone: 2(599)594-389715 [place] [address] 01-06-2025 14:05-0400 Systolic blood pressure 98 mm[Hg] Dr. Chance Kolb MD Work Phone: 0(640)307-929615 [place] [address] 01-01-2025 22:52-0400 Body temperature 98 [degF] Dr. Chance Kolb MD Work Phone: 1(063)268-732015 [place] [address] 01-01-2025 22:52-0400 Diastolic blood pressure 58 mm[Hg] Dr. Chance Kolb MD Work Phone: 0(339)718-331815 [place] [address] 01-01-2025 22:52-0400 Heart rate 90 /min Dr. Chance Kolb MD Work Phone: 0(327)996-366415 [place] [address] 01-01-2025 22:52-0400 Respiratory rate 16 /min Dr. Chance Kolb MD Work Phone: 7(688)718-219315 [place] [address] 01-01-2025 22:52-0400 SaO2% (BldA) [Mass fraction] 94 % Dr. Chance Kolb MD Work Phone: 4(067)170-536915 [place] [address] 01-01-2025 22:52-0400 Systolic blood pressure 102 mm[Hg] Dr. Chance Kolb MD Work Phone: 7(729)879-959815 [place] [address] 01-01-2025 20:13-0400 Body mass index (BMI) [Ratio] 18.7 kg/m2 Dr. Chance Kolb MD Work Phone: 4(307)731-839215 [place] [address] 01-01-2025 20:13-0400 Body weight 40.[address] Chance Kolb MD Work Phone: 9(220)565-943615 [place] [address] 07-27-2024 12:20-0500 Body mass index (BMI) [Ratio] 20.39 kg/m2 Nguyễn Stringer APRN.PEDIATRICIAN ACTIVE PRACTICE Work Phone: 9(327)229-821545 [place] [address] 07-27-2024 12:20-0500 Body weight 42 kg Nguyễn Stringer APRN.PEDIATRICIAN ACTIVE PRACTICE Work Phone: 3(665)579-790445 [place] [address] 07-27-2024 12:20-0500 Diastolic blood pressure 54 mm[Hg] Nguyễn Stringer AIR TWISTER W[employer]ER.PEDIATRICIAN ACTIVE PRACTICE Work Phone: [facility] 07-27-2024 12:20-0500 Heart rate 88 /min Nguyễn Bergs AIR TWISTER WINDER.PEDIATRICIAN ACTIVE PRACTICE Work Phone: [facility] 07-27-2024 12:20-0500 Respiratory rate 16 /min Nguyễn Bergs AIR TWISTER WINDER.PEDIATRICIAN ACTIVE PRACTICE Work Phone: [facility] 07-27-2024 12:20-0500 Systolic blood pressure 89 mm[Hg] Nguyễn Bergs AIR TWISTER WINDER.PEDIATRICIAN ACTIVE PRACTICE Work Phone: [facility] 07-25-2024 10:42-0500 Body mass index (BMI) [Ratio] 20.44 kg/m2 Carmen Miranda APRN.PROP DRAWER Work Phone: [facility] 07-25-2024 10:42-0500 Body temperature 97.3 [degF] Carmen Miranda APRN.PROP DRAWER Work Phone: [facility] 07-25-2024 10:42-0500 Body weight 42.1 kg Carmen Miranda APRN.PROP DRAWER Work Phone: [facility] 07-25-2024 10:42-0500 Diastolic blood pressure 71 mm[Hg] Carmen Miranda APRN.PROP DRAWER Work Phone: [facility] 07-25-2024 10:42-0500 Heart rate 83 /min Carmen Miranda APRN.PROP DRAWER Work Phone: [facility] 07-25-2024 10:42-0500 Respiratory rate 16 /min Carmen Miranda APRN.PROP DRAWER Work Phone: [facility] 07-25-2024 10:42-0500 SaO2% (BldA) [Mass fraction] 94 % Carmen Miranda APRN.PROP DRAWER Work Phone: [facility] 07-25-2024 10:42-0500 Systolic blood pressure 109 mm[Hg] Carmen Miranda APRN.PROP DRAWER Work Phone: [facility] 06-24-2024 15:46-0400 Body mass index (BMI) [Ratio] 20.64 kg/m2 Chance Kolb MD Work Phone: [facility] 06-24-2024 15:46-0400 Body temperature 97.11 [degF] Chance Kolb MD Work Phone: [facility] 06-24-2024 15:46-0400 Body weight 42.5 kg Chance Kolb MD Work Phone: [facility] 06-24-2024 15:46-0400 Diastolic blood pressure 60 mm[Hg] Chance Kolb MD Work Phone: [facility] 06-24-2024 15:46-0400 Heart rate 84 /min Chance Kolb MD Work Phone: [facility] 06-24-2024 15:46-0400 Respiratory rate 18 /min Chance Kolb MD Work Phone: [facility] 06-24-2024 15:46-0400 SaO2% (BldA) [Mass fraction] 93 % Chance Kolb MD Work Phone: [facility] 06-24-2024 15:46-0400 Systolic blood pressure 90 mm[Hg] Chance Kolb MD Work Phone: [facility] 05-14-2024 15:04-0400 Body mass index (BMI) [Ratio] 20.05 kg/m2 Nguyễn Stringer AIR TWISTER WINDER.PEDIATRICIAN ACTIVE PRACTICE Work Phone: [facility] 05-14-2024 15:04-0400 Body weight 41.3 kg Nguyễn Stringer [employer] TWISTER WINDER.PEDIATRICIAN ACTIVE PRACTICE Work Phone: [facility] 05-14-2024 15:04-0400 Diastolic blood pressure 61 mm[Hg] Nguyễn Stringer [employer] TWISTER WINDER.PEDIATRICIAN ACTIVE PRACTICE Work Phone: [facility] 05-14-2024 15:04-0400 Heart rate 87 /min Nguyễn Stringer [employer] TWISTER WINDER.PEDIATRICIAN ACTIVE PRACTICE Work Phone: [facility] 05-14-2024 15:04-0400 Respiratory rate 16 /min Nguyễn Stringer [employer] TWISTER WINDER.PEDIATRICIAN ACTIVE PRACTICE Work Phone: [facility] 05-14-2024 15:04-0400 Systolic blood pressure 98 mm[Hg] Nguyễn Stringer AIR TWISTER WINDER.PEDIATRICIAN ACTIVE PRACTICE Work Phone: [facility] 01-09-2024 10:29-0400 Body height 148.6 cm Thea Vail MD Work Phone: [facility] 01-09-2024 10:29-0400 Body mass index (BMI) [Ratio] 18.49 kg/m2 Thea Vail MD Work Phone: [facility] 01-09-2024 10:29040 Body weight 40.82 kg Thea Vail MD Work Phone: [facility] 01-09-2024 10:29-0400 Diastolic blood pressure 70 mm[Hg] Thea Vail MD Work Phone: [facility] 01-09-2024 10:29-0400 Systolic blood pressure 116 mm[Hg] Thea Vail MD Work Phone: [facility] 12-31-2023 14:19-0400 Body mass index (BMI) [Ratio] 19.16 kg/m2 Malachi Vijaya AIR TWISTER WINDER.PROP DRAWER Work Phone: [facility] 12-31-2023 14:19-0400 Body weight 39.46 kg Malachi Vijaya [employer] TWISTER WINDER.PROP DRAWER Work Phone: [facility] 12-31-2023 14:19-0400 Diastolic blood pressure 52 mm[Hg] Malachi Vijaya [employer] TWISTER WINDER.PROP DRAWER Work Phone: [facility] 12-31-2023 14:19-0400 Heart rate 95 /min Malachi Vijaya AIR TWISTER W[employer]ER.PROP DRAWER Work Phone: [facility] 12-31-2023 14:19-0400 SaO2% (BldA) [Mass fraction] 90 % Malachi Vijaya [employer] TWISTER W[employer]ER.PROP DRAWER Work Phone: [facility] 12-31-2023 14:19-0400 Systolic blood pressure 110 mm[Hg] Malachi Vijaya AIR TWISTER WINDER.PROP DRAWER Work Phone: [facility] 08-29-2023 10:13-0500 Body height 148.6 cm Thea Vail MD Work Phone: [facility] 08-29-2023 10:13-0500 Body mass index (BMI) [Ratio] 18.49 kg/m2 Thea Vail MD Work Phone: [facility] 08-29-2023 10:13-0500 Body weight 40.82 kg Thea Vail MD Work Phone: [facility] 08-29-2023 10:13-0500 Diastolic blood pressure 74 mm[Hg] Thea Vail MD Work Phone: [facility] 08-29-2023 10:13-0500 Systolic blood pressure 114 mm[Hg] Thea Vail MD Work Phone: [facility] 08-12-2023 13:54-0500 Body height 148.6 cm Thea Vail MD Work Phone: [facility] 08-12-2023 13:54-0500 Body mass index (BMI) [Ratio] 18.49 kg/m2 Thea Vail MD Work Phone: [facility] 08-12-2023 13:54-0500 Body weight 40.82 kg Thea Vail MD Work Phone: [facility] 08-12-2023 13:54-0500 Diastolic blood pressure 68 mm[Hg] Thea Vail MD Work Phone: [facility] 08-12-2023 13:54-0500 Systolic blood pressure 122 mm[Hg] Thea Vail MD Work Phone: [facility] 07-31-2023 14:39-0500 Body temperature 98.01 [degF] Malachi Grimesr AIR TWISTER WINDER.PROP DRAWER Work Phone: [facility] 07-31-2023 14:39-0500 Body weight 40.37 kg Malachi Vijaya AIR TWISTER WINDER.PROP DRAWER Work Phone: [facility] 07-31-2023 14:39-0500 Diastolic blood pressure 40 mm[Hg] Malachi Vijaya AIR TWISTER WINDER.PROP DRAWER Work Phone: [facility] 07-31-2023 14:39-0500 Heart rate 83 /min Malachi Vijaya AIR TWISTER WINDER.PROP DRAWER Work Phone: [facility] 07-31-2023 14:39-0500 SaO2% (BldA) [Mass fraction] 88 % Malachi Vijaya AIR TWISTER WINDER.PROP DRAWER Work Phone: [facility] 07-31-2023 14:39-0500 Systolic blood pressure 80 mm[Hg] Malachi Vijaya AIR TWISTER WINDER.PROP DRAWER Work Phone: [facility] 06-21-2023 16:07-0400 Body temperature 98.6 [degF] Chance Kolb MD Work Phone: [facility] 06-21-2023 16:07-0400 Body weight 40.37 kg Chance Kolb MD Work Phone: [facility] 06-21-2023 16:07-0400 Diastolic blood pressure 60 mm[Hg] Chance Kolb MD Work Phone: [facility] 06-21-2023 16:07-0400 Heart rate 80 /min Chance Kolb MD Work Phone: [facility] 06-21-2023 16:07-0400 Respiratory rate 20 /min Chance Kolb MD Work Phone: [facility] 06-21-2023 16:07-0400 Systolic blood pressure 90 mm[Hg] Chance Kolb MD Work Phone: [facility] 05-06-2023 11:15-0400 Body weight 38.42 kg Malachi Vijaya [employer] TWISTER W[employer]ER.PROP DRAWER Work Phone: [facility] 05-06-2023 11:15-0400 Diastolic blood pressure 60 mm[Hg] Malachi Vijaya [employer] TWISTER WINDER.PROP DRAWER Work Phone: [facility] 05-06-2023 11:15-0400 Heart rate 68 /min Malachi Vijaya [employer] TWISTER W[employer]ER.PROP DRAWER Work Phone: [facility] 05-06-2023 11:15-0400 SaO2% (BldA) [Mass fraction] 96 % Malachi Vijaya [employer] TWISTER W[employer]ER.PROP DRAWER Work Phone: [facility] 05-06-2023 11:15-0400 Systolic blood pressure 100 mm[Hg] Malachi Vijaya [employer] TWISTER W[employer]ER.PROP DRAWER Work Phone: [facility] 04-29-2023 13:28-0400 Body height 147.32 cm [facility] 04-29-2023 13:28-0400 Body mass index (BMI) [Ratio] 17.8 kg/m2 [facility] 04-29-2023 13:28-0400 Body temperature 97.5 [degF] [facility] 04-29-2023 13:28-0400 Body weight 38.73 kg [facility] 04-29-2023 13:28-0400 Diastolic blood pressure 63 mm[Hg] [facility] 04-29-2023 13:28-0400 Heart rate 90 /min [facility] 04-29-2023 13:28-0400 Respiratory rate 18 /min [facility] 04-29-2023 13:28-0400 SaO2% (BldA) [Mass fraction] 96 % [facility] 04-29-2023 13:28-0400 Systolic blood pressure 112 mm[Hg] [facility] 03-26-2023 10:24-0400 Body weight 37.65 kg Malachi Vijaya AIR TWISTER WINDER.PROP DRAWER Work Phone: [facility] 03-26-2023 10:24-0400 Diastolic blood pressure 54 mm[Hg] Malachi Vijaya AIR TWISTER WINDER.PROP DRAWER Work Phone: [facility] 03-26-2023 10:24-0400 Heart rate 75 /min Malachi Vijaya [employer] TWISTER W[employer]ER.PROP DRAWER Work Phone: [facility] 03-26-2023 10:24-0400 SaO2% (BldA) [Mass fraction] 85 % Malachi Vijaya [employer] TWISTER W[employer]ER.PROP DRAWER Work Phone: [facility] 03-26-2023 10:24-0400 Systolic blood pressure 100 mm[Hg] Malachi Lilly APRN.CNP Work Phone: [facility] 11-16-2022 14:29-0500 Body temperature 97.3 [degF] Chance Kolb MD Work Phone: [facility] 11-16-2022 14:29-0500 Body weight 37.2 kg Chance Kolb MD Work Phone: [facility] 11-16-2022 14:29-0500 Diastolic blood pressure 60 mm[Hg] Chance Kolb MD Work Phone: [facility] 11-16-2022 14:29-0500 Heart rate 96 /min Chance Kolb MD Work Phone: [facility] 11-16-2022 14:29-0500 Respiratory rate 18 /min Chance Kolb MD Work Phone: [facility] 11-16-2022 14:29-0500 SaO2% (BldA) [Mass fraction] 96 % Chance Kolb MD Work Phone: [facility] 11-16-2022 14:29-0500 Systolic blood pressure 104 mm[Hg] Chance Kolb MD Work Phone: [facility] 09-08-2022 14:26-0500 Body mass index (BMI) [Ratio] 16.1 kg/m2 Dr. Chance Kolb Work Phone: [facility] Work Phone: 09-08-2022 13:42-0500 Body temperature 98.4 [degF] Dr. Chance Kolb Work Phone: [facility] Work Phone: 09-08-2022 13:42-0500 Diastolic blood pressure 79 mm[Hg] Dr. Chance Kolb Work Phone: [facility] Work Phone: 09-08-2022 13:42-0500 Heart rate 76 /min Dr. Chance Kolb Work Phone: [facility] Work Phone: 09-08-2022 13:42-0500 Respiratory rate 17 /min Dr. Chance Kolb Work Phone: [facility] Work Phone: 09-08-2022 13:42-0500 SaO2% (BldA) [Mass fraction] 97 % Dr. Chance Kolb Work Phone: [facility] Work Phone: 09-08-2022 13:42-0500 Systolic blood pressure 120 mm[Hg] Dr. Chance Kolb Work Phone: [facility] Work Phone: 09-07-2022 14:59-0500 Body height 147.[address] Chance Kolb Work Phone: [facility] Work Phone: 09-07-2022 14:59-0500 Body weight [address] Chance Kolb Work Phone: [facility] Work Phone: 09-07-2022 01:09-0500 Diastolic blood pressure 66 mm[Hg] [facility] Work Phone: 09-07-2022 01:09-0500 Respiratory rate 18 /min [facility] Work Phone: 09-07-2022 01:09-0500 SaO2% (BldA) [Mass fraction] 97 % [facility] Work Phone: 09-07-2022 01:09-0500 Systolic blood pressure 104 mm[Hg] [facility] Work Phone: 09-06-2022 22:10-0500 Body temperature 98.9 [degF] [facility] Work Phone: 09-06-2022 22:10-0500 Heart rate 69 /min [facility] Work Phone: 09-06-2022 17:44-0500 Body height 147.32 cm [facility] Work Phone: 09-06-2022 17:44-0500 Body mass index (BMI) [Ratio] 17.3 kg/m2 [facility] Work Phone: 09-06-2022 17:44-0500 Body weight 37.64 kg [facility] Work Phone: 09-02-2022 10:37-0500 Body temperature 97.5 [degF] [facility] Work Phone: 09-02-2022 10:37-0500 Diastolic blood pressure 66 mm[Hg] [facility] Work Phone: 09-02-2022 10:37-0500 Heart rate 89 /min [facility] Work Phone: 09-02-2022 10:37-0500 Respiratory rate 8 /min [facility] Work Phone: 09-02-2022 10:37-0500 SaO2% (BldA) [Mass fraction] 100 % [facility] Work Phone: 09-02-2022 10:37-0500 Systolic blood pressure 111 mm[Hg] [facility] Work Phone: 09-01-2022 10:48-0500 Body height 147.32 cm [facility] Work Phone: 09-01-2022 10:48-0500 Body mass index (BMI) [Ratio] 18 kg/m2 [facility] Work Phone: 09-01-2022 10:48-0500 Body weight 39.2 kg [facility] Work Phone: 05-27-2022 10:43-0400 Body height 147.32 cm [facility] Work Phone: 05-27-2022 10:43-0400 Body mass index (BMI) [Ratio] 19.3 kg/m2 [facility] Work Phone: 05-27-2022 10:43-0400 Body temperature 98 [degF] [facility] Work Phone: 05-27-2022 10:43-0400 Body weight 42 kg [facility] Work Phone: 05-27-2022 10:43-0400 Diastolic blood pressure 82 mm[Hg] [facility] Work Phone: 05-27-2022 10:43-0400 Heart rate 79 /min [facility] Work Phone: 05-27-2022 10:43-0400 Respiratory rate 12 /min [facility] Work Phone: 05-27-2022 10:43-0400 SaO2% (BldA) [Mass fraction] 94 % [facility] Work Phone: 05-27-2022 10:43-0400 Systolic blood pressure 131 mm[Hg] [facility] Work Phone: 03-30-2022 13:04-0400 Body weight 38.56 kg Chance Kolb MD Work Phone: [facility] 03-30-2022 13:04-0400 Diastolic blood pressure 56 mm[Hg] Chance Kolb MD Work Phone: [facility] 03-30-2022 13:04-0400 Heart rate 75 /min Chanec Kolb MD Work Phone: [facility] 03-30-2022 13:04-0400 SaO2% (BldA) [Mass fraction] 97 % Chance Kolb MD Work Phone: [facility] 03-30-2022 13:04-0400 Systolic blood pressure 98 mm[Hg] Chance Kolb MD Work Phone: [facility] 03-20-2022 06:54-0400 Body weight 39.37 kg Essie Perry [employer] TWISTER W[employer]ER.PROP DRAWER Work Phone: [facility] 03-20-2022 06:54-0400 Diastolic blood pressure 60 mm[Hg] Essie Perry [employer] TWISTER W[employer]ER.PROP DRAWER Work Phone: [facility] 03-20-2022 06:54-0400 Systolic blood pressure 100 mm[Hg] Essie Perry [employer] TWISTER W[employer]ER.PROP DRAWER Work Phone: [facility] 02-01-2022 13:46-0400 Body temperature 96.8 [degF] Bailey Johnson [employer] TWISTER W[employer]ER.PROP DRAWER Work Phone: [facility] 02-01-2022 13:46-0400 Body weight 39.19 kg Bailey Johnson [employer] TWISTER W[employer]ER.PROP DRAWER Work Phone: [facility] 02-01-2022 13:46-0400 Diastolic blood pressure 56 mm[Hg] Bailey Johnson [employer] TWISTER W[employer]ER.PROP DRAWER Work Phone: [facility] 02-01-2022 13:46-0400 Heart rate 75 /min Bailey Johnson AIR TWISTER W[employer]ER.PROP DRAWER Work Phone: [facility] 02-01-2022 13:46-0400 Respiratory rate 20 /min Bailey Johnson [employer] TWISTER W[employer]ER.PROP DRAWER Work Phone: [facility] 02-01-2022 13:46-0400 SaO2% (BldA) [Mass fraction] 96 % Bailey Johnson [employer] TWISTER W[employer]ER.PROP DRAWER Work Phone: [facility] 02-01-2022 13:46-0400 Systolic blood pressure 98 mm[Hg] Bailey Johnson [employer] TWISTER W[employer]ER.PROP DRAWER Work Phone: [facility] 10-17-2021 19:35-0500 Body weight 40.82 kg Chance Kolb MD Work Phone: [facility] 10-17-2021 19:35-0500 Heart rate 86 /min Chance Kolb MD Work Phone: [facility] Encounters Encounter Date Encounter Type Care Provider Facility Start: 07-10-2025 End: 07-10-2025 ambulatory CHANCE D JOSIELB Facility:[facility] Start: 06-28-2025 ambulatory MANJU ALFARO Facility:[facility] Start: 06-23-2025 End: 06-23-2025 ambulatory CHANCE D CORTES Facility:[facility] Start: 06-18-2025 ambulatory Chance D Jamesamplb Facilit y:[facility] Start: 05-25-2025 [facility] / [facility] Start: 05-25-2025 End: 06-08-2025 Admission to same day surgery center Dr. Cedric Gibbons MD -[facility] [place] Work Phone: Start: 05-25-2025 End: 06-08-[address] Chance Kolb MD Work Phone: [facility] Start: 05-24-2025 ambulatory [facility] Facility:[facility] Start: 05-24-2025 End: 05-24-2025 Subsequent hospital visit by physician Screen Mammo [facility] M[facility] Start: 05-09-2025 Non-patient / [facility] Start: 05-04-2025 Non-patient / Non-visit Dr. Cedric Gibbons MD [facility] Start: 05-04-2025 End: 05-04-2025 Patient encounter procedure Nguyễn Stringer [employer]ISTER W[employer]ER.PEDIATRICIAN ACTIVE PRACTICE Work Phone: [facility] [place] Comment on above: Medicare annual well ness [...] Start: 04-29-2025 End: 04-29-2025 ambulatory MALACHI GRIMESR Facility:[facility] Start: 04-20-2025 Non-patient / Non-visit Dr. Cedric Gibbons MD [facility] Start: 04-01-2025 Non-patient / [facility] Start: 03-30-2025 End: 04-08-[address] Chance Kolb MD Work Phone: [facility] Start: 03-30-2025 End: 04-08-[address] Cedric Gibbons MD -[facility] Work Phone: Start: 03-30-2025 Non-patient / Non-visit Dr. Cedric Gibbons MD [facility] Start: 03-23-2025 Non-patient / Non-visit Dr. Cedric Gibbons MD [facility] Start: 03-22-2025 End: 03-22-2025 Office outpatient visit 25 minutes Nguyễn Stringer APRN.[facility] Work Phone: [facility] [place] Comment on above: Laceration of lower extremity, unspecified laterality, subsequent encounter (Primary Dx); Visit for suture removal; Fall, subsequent encounter; Acute pain of left hip; Compression fracture of L4 vertebra with routine healing, subsequent encounter; Age-related osteoporosis without current pathological fracture Start: 03-22-2025 End: 03-22-2025 [facility] Facility:[facility] Start: 03-18-2025 End: 03-18-2025 Emergency department patient visit Dr. Chance Kolb MD Work Phone: -Emergency Department Work Phone: Start: 03-13-2025 End: 03-13-2025 Emergency department patient visit Dr. Chance Kolb MD Work Phone: -Emergency Department Work Phone: Start: 03-11-2025 Non-patient / [facility] Start: 03-09-2025 Non-patient / Non-visit Dr. Cedric Gibbons MD [facility] Start: 03-09-[address] Cedric Buck rn, MD -[facility] Work Phone: Start: 03-02-2025 End: 03-08-[address] Chance Kolb MD Work Phone: -[facility] Start: 03-02-2025 End: 03-08-[address] Cedric Gibbons MD -[facility] Work Phone: Start: 03-02-2025 Non-patient / [facility] Start: 02-23-2025 Non-patient / Non-[facility] Start: 02-16-2025 Non-patient / Non-[facility] Start: 02-09-2025 Non-patient / Non-[facility] Start: 02-03-2025 End: 02-03-2025 Refill Chance Kolb MD Work Phone: [facility] [place] Comment on above: Refill Request Start: 02-02-2025 Non-patient / Non-[facility] Start: 02-02-2025 End: 02-06-[address] Chance Kolb MD Work Phone: [facility] Work Phone: Start: 02-02-2025 End: 02-06-[address] Cedric Gibbons MD -[facility] Work Phone: Start: 01-29-2025 End: 01-29-2025 ambulatory MALACHI VIJAYA Facility:[facility] Start: 01-19-2025 Non-patient / Non-[facility] Start: 01-13-2025 [facility] / [facility] Start: 01-06-[facility]25 Non-[facility] / [facility] Start: 01-06-2025 End: 01-06-[address] Cedric Gibbons MD -[facility] Work Phone: Start: 01-06-2025 End: 01-06-2025 ambulatory Cedric Gibbons Facility:[facility] Start: 01-01-2025 End: 01-01-2025 Emergency department patient visit Dr. Crow Moreno -Emergency Department Work Phone: Start: 12-17-2024 End: 12-17-2024 ambulatory CHANCE KOLB Facility:[facility] Start: 2024 End: 2024 Telephone encounter Nguyễn Stringer APRN.CNS Work Phone: [facility] [place] Comment on above: Results Start: 10-06-2024 End: 10-08-2024 ambulatory Chance Kolb MD Work Phone: [facility] [place] Comment on above: Shingles vaccine Start: 10-05-2024 End: 10-05-2024 ambulatory CARMEN MIRANDA Facility:[facility] Start: 08-17-2024 End: 08-17-2024 ambulatory CHANCE KOLB Facility:[facility] Start: 08-17-2024 End: 08-17-2024 Subsequent hospital visit by physician Bone Density [facility] Work Phone: Radiology Comment on above: Asymptomatic postmen opausal status [Z78.0] Start: 08-14-2024 End: 08-17-2024 ambulatory Bailey O'Edison PT [facility] Comment on above: Gait instability (Pr imary Dx) Start: 08-07-2024 End: 08-12-2024 Telephone encounter Chance Kolb MD Work Phone: [facility] [place] Start: 08-07-2024 End: 08-11-2024 ambulatory Bailey O'Edison PT [facility] Comment on above: Gait instability (Pr imary Dx) uTI Start: 07-27-2024 End: 07-27-2024 ambulatory Bailey O'Edison PT [facility] Comment on above: Gait instability (Pr imary Dx) Start: 07-27-2024 End: 07-27-2024 Office outpatient visit 15 minutes Nguyễn Stringer APRN.PEDIATRICIAN ACTIVE PRACTICE Work Phone: [facility] [place] Comment on above: Urinary tract infect ion with hematuria, site unspecified (Primary Dx) Start: 07-27-2024 End: 07-27-2024 ambulatory NGUYỄN STRINGER Facility:[facility] Start: 07-25-2024 End: 07-25-2024 ambulatory CHANCE KOLB Facility:[facility] Start: 07-25-2024 End: 07-25-2024 Patient encounter procedure Carmen Miranda APRN.PROP DRAWER Work Phone: [place] [facility] Comment on above: Dysuria (Primary Dx) ; Urinary tract infection with hematuria, site unspecified Start: 07-17-2024 End: 07-17-2024 ambulatory Bailey Madrigal PT [facility] Comment on above: Gait instability (Pr imary Dx) Start: 06-24-2024 End: 06-24-2024 Office outpatient visit 25 minutes Chance Kolb MD Work Phone: [facility] [place] Comment on above: Chronic midline low back [...] Office outpatient visit 15 minutes Nguyễn Stringer APRN.PEDIATRICIAN ACTIVE PRACTICE Work Phone: [facility] [place] Comment on above: Cervicalgia (Primary Dx); Acute intractable headache, unspecified headache type; Acute intractable tension-type headache Start: 03-30-2024 Documentation procedure Mammog nohemy Coordinator [facility] Department Start: 03-30-2024 Letter encounter Mammography Coordinator [facility] Department Start: 03-27-2024 End: 03-27-2024 Subsequent hospital visit by physician Screen Mammo [facility]amm[facility] Comment on above: Encounter for screen ing mammogram for breast cancer [Z12.31] Start: 01-09-2024 End: 01-09-2024 ambulatory CORTES FLETCHER [facility] Start: 01-09-2024 End: 01-09-2024 Office outpatient visit 15 minutes Thea Vail MD Work Phone: [facility] Comment on above: Rupture of flexor po llicis longus muscle (Primary Dx); Retained orthopedic hardware; Mass of finger of right hand Start: 01-03-2024 ambulatory Malachi Lilly APRN.PROP DRAWER Work Phone: [facility] [place] Comment on above: Results Start: 01-03-2024 E-mail encounter fro m caregiver Malachi Lilly APRN.PROP DRAWER Work Phone: [facility] [place] Start: 01-01-2024 ambulatory Maggie weathers PA-C Work Phone: Orthopaedics Start: 01-01-2024 Patient encounter procedure Maggie Landerosi PA-C Work Phone: Orthopaedics Comment on above: I saw you before and I didn't follow through. Could we schedule an appointment. You are in [place] right? Start: 12-31-2023 End: 12-31-2023 Subsequent hospital visit by physician Xr [facility] [place] Work Phone: Radiology Comment on above: Acute bilateral low back pain without sciatica [M54.50] Start: 12-31-2023 End: 12-31-2023 Patient encounter procedure Malachi Lilly APRN.PROP DRAWER Work Phone: [facility] [place] Comment on above: Acute bilateral low back pain without sciatica (Primary Dx); Age-related osteoporosis without current pathological fracture; Gastroesophageal reflux disease without esophagitis; Crohn's disease of large intestine without complication (HCC); Acquired hypothyroidism; Depression, unspecified depression type; Anxiety; Encounter for screening mammogram for breast cancer Start: 09-03-2023 End: 09-03-2023 Subsequent hospital visit by physician Cate [facility] Work Phone: Radiology Comment on above: Fall from bed, initi al encounter [W06.XXXA] Start: 08-29-2023 Telephone encounter Thea dubon MD Work Phone: [facility] Comment on above: Surgery Scheduling Start: 08-29-2023 End: 08-29-2023 ambulatory [facility] Start: 08-29-2023 End: 08-29-2023 Office outpatient visit 25 minutes Thea Vail MD Work Phone: [facility] Comment on above: Rupture of flexor po llicis longus muscle; Retained orthopedic hardware Start: 08-26-2023 End: 08-27-2023 ambulatory [facility] Start: 08-26-2023 End: 08-26-2023 Subsequent hospital visit by physician [facility] Mr Exam Room 1 [facility] MRI Comment on above: Mass of finger of ri ght hand; Rupture of flexor pollicis longus muscle Start: 08-12-2023 End: 08-12-2023 ambulatory [facility] Start: 08-12-2023 End: 08-12-2023 Office outpatient new 30 minutes Thea Vail MD Work Phone: [facility] Comment on above: Mass of finger of ri ght hand; Rupture of flexor pollicis longus muscle Start: 08-07-2023 Orders Only Long Back aislinn RING Work Phone: [facility] Comment on above: Right hand pain (Loretta deyanira Dx) Start: 08-02-2023 Telephone encounter Malachi tao APRN.CNP Work Phone: [facility] [place] Comment on above: Results Start: 07-31-2023 End: 07-31-2023 Patient encounter procedure Malachi Lilly APRN.PROP DRAWER Work Phone: [facility] [place] Comment on above: Urinary tract infect ion without hematuria, site unspecified (Primary Dx) Start: 06-21-2023 End: 06-21-2023 Office outpatient visit 25 minutes Chance Kolb MD Work Phone: [facility] [place] Comment on above: Acquired hypothyroid ism (Primary Dx); Numbness and tingling in right hand; Raynaud's disease without gangrene; Gastroesophageal reflux disease without esophagitis; Vitamin D deficiency; Hypercholesteremia; Crohn's disease of large intestine without complication (HCC); Encounter for long-term current use of medication Start: 05-06-2023 End: 05-06-2023 Patient encounter procedure Malachi Lilly APRN.PROP DRAWER Work Phone: [facility] [place] Comment on above: Abrasion (Primary Dx ); Visit for suture removal Start: 04-29-2023 End: 04-29-2023 [facility] Start: 03-27-2023 Documentation procedure Mammog nohemy Coordinator [facility] Start: 03-27-2023 Letter encounter Mammography Coordinator [facility] Department Start: 03-26-2023 End: 03-26-2023 Patient encounter procedure Malachi Lilly APRN.PROP DRAWER Work Phone: [facility] [place] Comment on above: Nodule of finger of right hand (Primary Dx); Thumb joint locking; Other headache syndrome; Gastroesophageal reflux disease without esophagitis; Raynaud's disease without gangrene Start: 03-25-2023 End: 03-25-2023 Patient encounter procedure Essie Man APRN.PROP DRAWER Work Phone: OB/Gynecology Comment on above: Encounter for screen ing mammogram for breast cancer (Primary Dx) Start: 03-25-2023 End: 03-25-2023 Subsequent hospital visit by physician Screen Mammo [facility] Mammogram Comment on above: Encounter for [...] Chance hurtado MD Work Phone: [facility] [place] Comment on above: xray result Start: 11-16-2022 End: 11-16-2022 Subsequent hospital visit by physician Xr [facility] [place] Work Phone: Radiology Comment on above: Rib [...] Chance dubon MD Work Phone: [facility] [place] Comment on above: Refill Request Start: 10-03-2022 Telephone encounter Chance hurtado MD Work Phone: Internal Medicine [place] Comment on above: [facility] Plan of Care (continued) Start: 10-01-2022 Telephone encounter Chance hurtado MD Work Phone: [facility] [place] Comment on above: Home Health Update Start: 09-28-2022 Telephone encounter Chance hurtado MD Work Phone: [facility] [place] Comment on above: Patient Question Start: 09-25-2022 Telephone encounter Chance hurtado MD Work Phone: [facility] [place] Comment on above: Skillled Nursing Penny luation Start: 09-18-2022 Telephone encounter Malachi Thibodeaux aislinn AIR TWISTER WINDER.PROP DRAWER Work Phone: Internal Medicine [place] Comment on above: Results Start: 09-14-2022 Telephone encounter Chance hurtado MD Work Phone: Internal Medicine [place] Comment on above: Social Work Eval Ord er home health calling Patient Question Start: 09-12-2022 Telephone encounter Chance hurtado MD Work Phone: [facility] [place] Comment on above: PT Update OT Update Start: 09-08-2022 Non-patient / Non-visit Dr. Sonali Kolb Work Phone: [facility] Start: 09-07-2022 Non-patient / Non-visit Dr. Sonali Kolb Work Phone: [facility] Start: 09-07-2022 Telephone encounter Chance hurtado MD Work Phone: Internal Medicine [place] Comment on above: Follow for [facility] Start: 09-07-2022 Non-patient / Non-visit Dr. Sonali Kolb Work Phone: [facility] Start: 09-06-2022 End: 09-08-2022 Evaluation and management of inpatient [facility] Start: 09-01-2022 End: 09-02-2022 Emergency department patient visit [facility] Start: 08-07-2022 End: 08-07-2022 Subsequent hospital visit by physician Xr [facility] Work Phone: Radiology Comment on above: Acute cough [R05.1] Start: 05-31-2022 Telephone encounter Chance hurtado MD Work Phone: Internal Medicine [place] Comment on above: Results Start: 05-27-2022 End: 05-27-2022 Emergency department patient visit [facility] Start: 05-15-2022 Telephone encounter Chance hurtado MD Work Phone: [facility] [place] Comment on above: Results Start: 04-11-2022 End: 04-11-2022 Subsequent hospital visit by physician Bone Density [facility] Work Phone: Radiology Comment on above: Age-related osteopor osis without current pathological fracture [M81.0] Start: 04-02-2022 Telephone encounter Chance hurtado MD Work Phone: [facility] [place] Comment on above: Results Start: 03-30-2022 End: 03-30-2022 Subsequent hospital visit by physician Xr [facility] [place] Work Phone: Radiology Comment on above: Chronic [...] Subsequent hospital visit by physician Screen Mammo [facility] Mammogram Comment on above: Encounter for screen ing mammogram for breast cancer [Z12.31] Start: 03-20-2022 End: 03-20-2022 Patient encounter procedure Essie Man APRN.PROP DRAWER Work Phone: OB/Gynecology Comment on above: Encounter for gyneco logical examination (general) (routine) without abnormal findings (Primary Dx); Encounter for screening mammogram for breast cancer; Age-related osteoporosis without current pathological fracture Start: 03-20-2022 End: 03-20-2022 Patient encounter status Essie Man APRN.PROP DRAWER Work Phone: OB/Gynecology Start: 02-01-2022 End: 02-01-2022 Patient encounter procedure Bailey Johnson APRN.PROP DRAWER Work Phone: [place] [facility] Comment on above: Exposure to COVID-19 virus (Primary Dx) Start: 01-29-2022 End: 01-29-2022 Patient encounter procedure [facility] Work Phone: [facility] Comment on above: APPOINTMENT CANCELLE D (Primary Dx); Contact with and (suspected) exposure to covid-19 Start: 12-29-2021 End: 12-29-2021 Patient encounter procedure Jersey Stern DO Work Phone: Family Medicine [place] Comment on above: Closed nondisplaced fracture of neck of fifth metacarpal bone of left hand with routine healing, subsequent encounter (Primary Dx) Start: 12-29-2021 End: 12-29-2021 Subsequent hospital visit by physician Cate [facility] [place] Rai Work Phone: Radiology Comment on above: Closed nondisplaced fracture of neck of fifth metacarpal bone of left hand, initial encounter [S62.367A] Start: 12-27-2021 Orders Only Jersey Worthington O Work Phone: Orthopaedics Comment on above: Closed nondisplaced fracture of neck of fifth metacarpal bone of left hand, initial encounter (Primary Dx) Start: 11-25-2021 End: 11-25-2021 Subsequent hospital visit by physician Cate [facility] [place] Work Phone: Radiology Comment on above: [...] spine lumbosac ral 2/3 views Malachi Vijaya AIR TWISTER WINDER.PROP DRAWER Work Phone: Start: 12-27-2023 Thyrotropin [Units/volume] in Serum or Plasma Thea Vail MD Work Phone: Start: 09-03-2023 Radex ribs uni w/posteroant ch minimum 3 views Talya Howell AIR TWISTER WINDER.PROP DRAWER Work Phone: Start: 08-29-2023 Follow-up visit Follow-up THEA TRAORE Start: 07-31-2023 Urnls dip stick/tabl et rgnt auto w/o microscopy Malachi Vijaya AIR TWISTER WINDER.PROP DRAWER Work Phone: Start: 03-25-2023 End: 03-25-2023 Mammography Essie Donovan AIR TWISTER WINDER.C GYRO MECHANIC Work Phone: Start: 11-16-2022 Radex ribs uni [...] exam ches t 2 views Kelsi Morgan AIR TWISTER WINDER.PROP DRAWER Work Phone: Start: 04-11-2022 Dxa bone density miguel dy 1/> sites axial skel Essie Man AIR TWISTER WINDER.PROP DRAWER Work Phone: Start: 03-30-2022 Radiologic exam ches t 2 views Chance Kolb MD Work Phone: Start: 03-20-2022 End: 03-20-2022 Mammography Bulk Order Provider Start: 12-29-2021 Radex hand minimum 3 views Jersey Stern DO Work Phone: Start: 11-25-2021 Radex hand minimum 3 views Azucena Khan AIR TWISTER WINDER.PROP DRAWER Work Phone: Start: 07-01-2020 Mammography Jersey Maurice [...] DTaP,Tdap,Td Vaccine (4 - Td or Tdap) [facility] Start: 04-29-2033 DTaP/Tdap/Td Vaccines (3 - Td or Tdap) DTaP/Tdap/Td Vaccines (3 - Td or Tdap) [facility] Start: 04-29-2033 Urine microalbumin profile [facility] Start: 05-21-2031 Urine microalbumin profile DTAP,TDAP,TD (2 - Td or Tdap) [facility] Start: 12-17-2029 Lipid panel Lipid Screening [facility] Start: 04-29-2028 Diabetes Screening Diabetes Screening [facility] Start: 12-18-2027 Diabetes Screening Diabetes Screening [facility] Start: 11-17-2027 Lipid 1996 panel - Serum or Plasma Lipid Screening [facility] Start: 11-17-2027 Lipid panel Lipid Screening [facility] Start: 11-17-2027 LIPID SCREEN LIPID SCREEN [facility] Start: 12-26-2026 Diabetes Screening Diabetes Screening [facility] Start: 08-17-2026 Screening for osteoporosis Bone Density Screening [facility] Start: 05-10-2026 End: 05-10-2026 Patient encounter procedure 05/10/2026 9:00 AM EDT Office Visit [facility] [place] [address] [place] [address] Nguyễn Stringer APRN.PEDIATRICIAN ACTIVE PRACTICE [address] [place] [address] Medicare Wellness [facility] [place] Comment on above: Medicare Wellness Start: 05-04-2026 Annual PCP Team Chronic Disease Visit Annual PCP Team Chronic Disease Visit [facility] Start: 05-04-2026 Medicare Annual Wellness Visit Medicare Annual Wellness Visit [facility] Start: 02-24-2026 LIPID SCREEN LIPID SCREEN [facility] Start: 01-29-2026 Annual PCP Team Chronic Disease Visit Annual PCP Team Chronic Disease Visit [facility] Start: 11-16-2025 DIABETES SCREEN DIABETES SCREEN [facility] Start: 11-16-2025 Diabetes Screening Diabetes Screening [facility] Start: 11-10-2025 End: 11-10-2025 Patient encounter procedure 11/10/2025 11:00 AM EST Office Visit [facility] [place] [address] [place] [address] Chance Kolb MD [address] [place] [address] 6 month f/u [facility] [place] Comment on above: 6 month f/u Start: 11-04-2025 End: 02-03-2026 25-hydroxyvitamin D3 [Mass/volume] in Serum or Plasma VITAMIN D 25 HYDROXY Lab Routine Medicare annual wellness visit, subsequent Osteoporosis, unspecified osteoporosis type, unspecified pathological fracture presence Crohn's disease without complication, unspecified gastrointestinal tract location (HCC) Expected: 11/04/2025 (Approximate), Expires: 02/03/2026 [facility] Comment on above: Expected: 11/04/2025 (Approximate), Expi res: 02/03/2026 Start: 11-04-2025 End: 02-03-2026 CBC W Auto Differential panel - Blood COMPLETE BLOOD COUNT AND DIFFERENTIAL Lab Routine Medicare annual wellness visit, subsequent Crohn's disease without complication, unspecified gastrointestinal tract location (HCC) Expected: 11/04/2025 (Approximate), Expires: 02/03/2026 [facility] Comment on above: Expected: 11/04/2025 (Approximate), Expi res: 02/03/2026 Start: 11-04-2025 End: 02-03-2026 Comprehensive metabolic 2000 panel - Serum or Plasma COMPREHENSIVE METABOLIC PANEL Lab Routine Medicare annual wellness visit, subsequent Crohn's disease without complication, unspecified gastrointestinal tract location (HCC) Expected: 11/04/2025 (Approximate), Expires: 02/03/2026 [facility] Comment on above: Expected: 11/04/2025 (Approximate), Expi res: 02/03/2026 Start: 11-04-2025 End: 02-03-2026 Hemoglobin A1c in Blood HEMOGLOBIN A1C Lab Routine Medicare annual wellness visit, subsequent Crohn's disease without complication, unspecified gastrointestinal tract location (HCC) Other abnormal glucose Expected: 11/04/2025 (Approximate), Expires: 02/03/2026 [facility] Comment on above: Expected: 11/04/2025 (Approximate), Expi res: 02/03/2026 Start: 09-09-2025 Screening for malignant neoplasm of colon Colorectal Cancer Screening [facility] Comment on above: Postponed from 1994 (Postponed To Appropriate Date) Start: 06-24-2025 Annual PCP Team Chronic Disease Visit Annual PCP Team Chronic Disease Visit [facility] Start: 06-21-2025 End: 06-21-2025 Patient encounter procedure 06/21/2025 1:00 PM EDT Office Visit Endocrinology [address] [place] [id number] Mirtha Ledesma MD [address] [facility] [place] [address] Osteoporosis, unspecified osteoporosis type, unspecified pathological fracture presence [M81.0] Endocrinology Comment on above: Osteoporosis, unspecified osteoporosis t ype, unspecified pathological fracture presence [M81.0] Start: 05-13-2025 End: 05-13-2025 Patient encounter procedure 05/13/2025 2:50 PM EDT Appointment Mammogram [address] [place] [address] Encounter for screening mammogram for malignant neoplasm of breast [Z12.31] Mammogram Comment on above: Encounter for screening mammogram for ma lignant neoplasm of breast [Z12.31] Start: 05-10-2025 Influenza vaccination Influenza Vaccine (#1) [place] alas Start: 05-04-2025 End: 05-04-2025 Patient encounter procedure 05/04/2025 3:20 PM EDT Office Visit Internal Medicine [place] [address] [place], [place] [id number] Chance Kolb MD [address] [place] [address] 3 mo f/u [facility] [place] Comment on above: 3 mo f/u Start: 03-30-2025 DIABETES SCREEN DIABETES SCREEN [facility] Start: 03-27-2025 Screening for malignant neoplasm of breast Mammogram Screening [facility] Start: 03-22-2025 End: 06-21-2025 25-hydroxyvitamin D3 [Mass/volume] in Serum or Plasma VITAMIN D 25 HYDROXY Lab Routine Compression fracture of L4 vertebra with routine healing, subsequent encounter Age-related osteoporosis without current pathological fracture Expected: 03/22/2025, Expires: 06/21/2025 [facility] Work Phone: Comment on above: Expected: 03/22/2025, Expires: Start: 03-18-2025 [facility] Start: 03-13-2025 [facility] Start: 03-13-2025 Smpl repair scalp/neck/ax/genit/trun k 2.6-7.5cm RPR S/N/AX/GEN/TRNK2.6-7.5CM [facility] Start: 02-07-2025 Screening for malignant neoplasm of colon [facility] Start: 01-01-2025 [facility] Start: 01-01-2025 Simple rpr scalp/neck/ax/genit/trun k 7.6-12.5cm RPR S/N/AX/GEN/TRK7.6-12.5CM [facility] Start: 12-30-2024 Annual PCP Team Chronic Disease Visit Annual PCP Team Chronic Disease Visit [facility] Start: 12-26-2024 Thyroid stimulating hormone measurement TSH Level [facility] Start: 12-25-2024 End: 12-25-2024 Patient encounter procedure 12/25/2024 11:00 AM EDT Office Visit Internal Medicine [place] [address] [place] [id number] Malachi Lilly APRN.PROP DRAWER [address] [place], [place] [id number] 6 month follow up [facility] [place] Comment on above: 6 month follow up Start: 11-22-2024 End: 02-21-2025 25-hydroxyvitamin D3 [Mass/volume] in Serum or Plasma VITAMIN D 25 HYDROXY Lab Routine Age-related osteoporosis without current pathological fracture Vitamin D deficiency Encounter for long-term current use of medication Expected: 11/22/2024 (Approximate), Expires: 02/21/2025 [facility] Comment on above: Expected: 11/22/2024 (Approximate), Expi res: 02/21/2025 Start: 11-22-2024 End: 02-21-2025 CBC panel - Blood by Automated count COMPLETE BLOOD COUNT Lab Routine Age-related osteoporosis without current pathological fracture Encounter for long-term current use of medication Expected: 11/22/2024 (Approximate), Expires: 02/21/2025 [facility] Comment on above: Expected: 11/22/2024 (Approximate), Expi res: 02/21/2025 Start: 11-22-2024 End: 02-21-2025 Comprehensive metabolic 2000 panel - Serum or Plasma COMPREHENSIVE METABOLIC PANEL Lab Routine Age-related osteoporosis without current pathological fracture Encounter for long-term current use of medication Expected: 11/22/2024 (Approximate), Expires: 02/21/2025 [facility] Comment on above: Expected: 11/22/2024 (Approximate), Expi res: 02/21/2025 Start: 11-22-2024 End: 02-21-2025 Lipid 1996 panel - Serum or Plasma LIPID PANEL BASIC Lab Routine Age-related osteoporosis without current pathological fracture Hypercholesteremia Encounter for long-term current use of medication Expected: 11/22/2024 (Approximate), Expires: 02/21/2025 [facility] Comment on above: Expected: 11/22/2024 (Approximate), Expi res: 02/21/2025 Start: 11-22-2024 End: 02-21-2025 Magnesium [Mass/volume] in Serum or Plasma MAGNESIUM Lab Routine Age-related osteoporosis without current pathological fracture Encounter for long-term current use of medication Expected: 11/22/2024 (Approximate), Expires: 02/21/2025 [facility] Comment on above: Expected: 11/22/2024 (Approximate), Expi res: 02/21/2025 Start: 11-22-2024 End: 02-21-2025 Thyrotropin [Units/volume] in Serum or Plasma THYROID STIMULATING HORMONE Lab Routine Age-related osteoporosis without current pathological fracture Acquired hypothyroidism Encounter for long-term current use of medication Expected: 11/22/2024 (Approximate), Expires: 02/21/2025 [facility] Comment on above: Expected: 11/22/2024 (Approximate), Expi res: 02/21/2025 Start: 11-22-2024 End: 02-21-2025 Thyroxine (T4) free [Mass/volume] in Serum or Plasma T4 FREE/FREE THYROXINE Lab Routine Age-related osteoporosis without current pathological fracture Acquired hypothyroidism Encounter for long-term current use of medication Expected: 11/22/2024 (Approximate), Expires: 02/21/2025 [facility] Comment on above: Expected: 11/22/2024 (Approximate), Expi res: 02/21/2025 Start: 11-22-2024 End: 02-21-2025 Triiodothyronine (T3) Free [Mass/volume] in Serum or Plasma T3, FREE Lab Routine Age-related osteoporosis without current pathological fracture Acquired hypothyroidism Encounter for long-term current use of medication Expected: 11/22/2024 (Approximate), Expires: 02/21/2025 [facility] Comment on above: Expected: 11/22/2024 (Approximate), Expi res: 02/21/2025 Start: 2024 RSV Vaccine (1 - 1-dose 75+ series) RSV Vaccine (1 - 1-dose 75+ series) [facility] Start: 09-20-2024 DIABETES SCREEN DIABETES SCREEN [facility] Start: 09-09-2024 Advance Directive Discussion Advance Directive Discussion [facility] Start: 09-04-2024 End: 09-04-2024 ambulatory 09/04/2024 12:30 PM EST OT/PT/Speech Visit [facility] [address] [address] Bailey Madrigal, PT R26.81 (ICD-10-CM) - Gait instability [facility] Comment on above: R26.81 (ICD-10-CM) - Gait instability Start: 08-28-2024 End: 08-28-2024 ambulatory 08/28/2024 12:30 PM EST OT/PT/Speech Visit [facility] [address] [place] [address] Bailey Madrigal PT R26.81 (ICD-10-CM) - Gait instability [facility] Comment on above: R26.81 (ICD-10-CM) - Gait instability Start: 08-26-2024 End: 11-25-2024 Urinalysis complete panel - Urine URINALYSIS WITH MICROSCOPIC, REFLEX CULTURE Lab Routine Urinary tract infection with hematuria, site unspecified Expected: 08/26/2024 (Approximate), Expires: 11/25/2024 [facility] Work Phone: Comment on above: Expected: 08/26/2024 (Approximate), Expi res: 11/25/2024 Start: 08-21-2024 End: 08-21-2024 ambulatory 08/21/2024 12:30 PM EST OT/PT/Speech Visit [facility] [address] [place] [address] Bailey Madrigal, PT R26.81 (ICD-10-CM) - Gait instability [facility] Comment on above: R26.81 (ICD-10-CM) - Gait instability Start: 08-17-2024 End: 08-17-2024 Patient encounter procedure 08/17/2024 11:15 AM EST Appointment Radiology [address] [place] [id number] Asymptomatic postmenopausal status [Z78.0] Radiology Comment on above: Asymptomatic postmenopausal status [Z78. 0] Start: 08-14-2024 End: 08-14-2024 ambulatory 08/14/2024 12:30 PM EST OT/PT/Speech Visit [facility] [address] [place] [address] Bailey Madrigal PT R26.81 (ICD-10-CM) - Gait instability [facility] Comment on above: R26.81 (ICD-10-CM) - Gait instability Start: 08-07-2024 End: 08-07-2024 ambulatory 08/07/2024 12:30 PM EST OT/PT/Speech Visit [facility] [address] [place] [address] Bailey Madrigal, PT R26.81 (ICD-10-CM) - Gait instability [facility] Comment on above: R26.81 (ICD-10-CM) - Gait instability Start: 07-31-2024 Annual PCP Team Chronic Disease Visit Annual PCP Team Chronic Disease Visit [facility] Start: 07-27-2024 End: 07-27-2024 ambulatory 07/27/2024 3:30 PM EST OT/PT/Speech Visit [facility] [address] [place] [address] Bailey Madrigal, PT R26.81 (ICD-10-CM) - Gait instability [facility] Comment on above: R26.81 (ICD-10-CM) - Gait instability Start: 07-27-2024 End: 07-27-2024 Patient encounter procedure 07/27/2024 12:20 PM EST Office Visit Internal Medicine [place] [address] [facility] [address] Nguyễn Stringer APRN.PEDIATRICIAN ACTIVE PRACTICE [address] [facility] [place] [address] express care follow up/uti [facility] [place] Comment on above: express care follow up/uti Start: 06-24-2024 End: 06-24-2024 Patient encounter procedure 06/24/2024 3:00 PM EDT Office Visit Internal Medicine [place] [address] [place] [address] Chance Kolb MD [address] [place] [address] 6 month follow up [facility] Medicine [place] Comment on above: 6 month follow up Start: 06-21-2024 Annual PCP Team Chronic Disease Visit Annual PCP Team Chronic Disease Visit [facility] Start: 05-10-2024 Covid-19 Vaccine ( season) Covid-19 Vaccine ( season) [facility] Start: 05-10-2024 Covid-19 Vaccine ( season) Covid-19 Vaccine () [facility] Start: 05-10-2024 Influenza vaccination Influenza Vaccine (#1) [facility] Start: 05-06-2024 ANNUAL PCP TEAM CHRONIC DISEASE VISIT ANNUAL PCP TEAM CHRONIC DISEASE VISIT [facility] Start: 04-11-2024 Screening for osteoporosis Bone Density Screening [facility] Start: 03-27-2024 End: 03-27-2024 Patient encounter procedure 03/27/2024 10:50 AM EDT Appointment Mammogram [address] [facility] [place], [place] [id number] Encounter for screening mammogram for breast cancer [Z12.31] Mammogram Comment on above: Encounter for screening mammogram for br east cancer [Z12.31] Start: 03-26-2024 ANNUAL PCP TEAM CHRONIC DISEASE VISIT ANNUAL PCP TEAM CHRONIC DISEASE VISIT [facility] Start: 03-25-2024 Mammography [facility] Start: 03-25-2024 Screening for malignant neoplasm of breast Mammogram Screening [facility] Start: 01-09-2024 End: 01-09-2024 Patient encounter procedure 01/09/2024 10:30 AM EDT Office Visit [facility] [address] [place] [address] [place] [phone] Thea Vail MD [address] [facility] [address] [place] [address] [facility] Start: 11-17-2023 ANNUAL PCP TEAM CHRONIC DISEASE VISIT ANNUAL PCP TEAM CHRONIC DISEASE VISIT [facility] Start: 08-29-2023 End: 08-29-2023 Patient encounter procedure 08/29/2023 10:15 AM EST Office Visit [facility] [address] [place] [address] [place] [phone] Thea Vail MD [address] [facility] [address] [place], [place] [id number] [facility] Start: 08-12-2023 End: 08-12-2023 Patient encounter procedure 08/12/2023 2:15 PM EST Office Visit [facility] [address] [facility] [address] [place] [phone] Thea Vail MD [address] [facility] [address] [place] [address] [facility] Start: 08-12-2023 End: 08-12-2024 MR Hand - right WO contrast MR hand right wo IV contrast Imaging Routine Mass of finger of right hand Rupture of flexor pollicis longus muscle Expected: 08/12/2023, Expires: 08/12/2024 [facility] Work Phone: Comment on above: Expected: 08/12/2023, Expires: 4 Start: 08-12-2023 End: 08-12-2024 MR Wrist - right WO contrast MR wrist right wo IV contrast Imaging Routine Mass of finger of right hand Rupture of flexor pollicis longus muscle Expected: 08/12/2023, Expires: 08/12/2024 [facility] [employer] Comment on above: Expected: 08/12/2023, Expires: 4 Start: 08-07-2023 End: 08-07-2024 XR Hand - right 3 Views XR hand 3+ views right Imaging Routine Right hand pain Expected: 08/07/2023, Expires: 08/07/2024 [facility] Work Phone: Comment on above: Expected: 08/07/2023, Expires: 4 Start: 05-10-2023 Covid-19 Vaccine ( season) Covid-19 Vaccine ( season) [facility] Start: 05-10-2023 Influenza vaccination INFLUENZA (#1) [facility] Start: 03-30-2023 ANNUAL PCP TEAM CHRONIC DISEASE VISIT ANNUAL PCP TEAM CHRONIC DISEASE VISIT [facility] Start: 03-20-2023 Mammography MAMMOGRAM [facility] Start: 02-07-2023 Colonoscopy COLONOSCOPY [facility] Start: 02-07-2023 COLORECTAL CANCER SCREENING COLORECTAL CANCER SCREENING [facility] Start: 02-07-2023 Screening for malignant neoplasm of colon [facility] Start: 10-17-2022 ANNUAL PCP TEAM CHRONIC DISEASE VISIT ANNUAL PCP TEAM CHRONIC DISEASE VISIT [facility] Start: 10-17-2022 SHINGRIX VACCINE (2 of 3) SHINGRIX VACCINE (2 of 3) [facility] Comment on above: Postponed from 06/19/2016 (Declined at t his time) Start: 10-17-2022 Urine microalbumin profile DTAP,TDAP,TD (1 - Tdap) [facility] Comment on above: Postponed from 04/27/2016 (Declined at t his time) Start: 09-29-2022 End: 11-29-2022 Urinalysis complete panel - Urine URINALYSIS, WITH MICROSCOPIC Lab Routine Acute cystitis with hematuria Expected: 09/29/2022, Expires: 11/29/2022 [facility] Work Phone: Comment on above: Expected: 09/29/2022, Expires: 3 Start: 09-15-2022 End: 11-15-2022 Urinalysis complete panel - Urine URINALYSIS, WITH MICROSCOPIC Lab Routine Urinary tract infection without hematuria, site unspecified Expected: 09/15/2022, Expires: 11/15/2022 [facility] Work Phone: Comment on above: Expected: 09/15/2022, Expires: 3 Start: 09-09-2022 ADVANCE DIRECTIVE DISCUSSION ADVANCE DIRECTIVE DISCUSSION [facility] Start: 09-08-2022 Patient discharge [facility] Work Phone: Start: 09-07-2022 Referral to service [facility] Work Phone: Start: 09-07-2022 Following clinical pathway protocol [facility] Work Phone: Start: 09-07-2022 Aspiration precautions [facility] Work Phone: Start: 09-07-2022 Assessment of risk of venous thromboembolism [facility] Work Phone: Start: 09-07-2022 Cardiac monitoring [facility] Work Phone: Start: 09-07-2022 Catheterization of vein [facility] Work Phone: Start: 09-07-2022 Continuous pulse oximetry [facility] Work Phone: Start: 09-07-2022 Elevation of head of bed [facility] Work Phone: Start: 09-07-2022 Exercises [facility] Work Phone: Start: 09-07-2022 Fall prevention [facility] Work Phone: Start: 09-07-2022 Implementation of planned interventions [facility] Work Phone: Start: 09-07-2022 Inhalation therapy procedure [facility] Work Phone: Start: 09-07-2022 Insertion of catheter into peripheral vein [facility] Work Phone: Start: 09-07-2022 Introduction of urinary catheter [facility] Work Phone: Start: 09-07-2022 Notification of physician [facility] Work Phone: Start: 09-07-2022 Oxygen therapy [facility] Work Phone: Start: 09-07-2022 End: 09-07-2022 Patient referral to dietitian [facility] Work Phone: Start: 09-07-2022 Providing care according to standard [facility] Work Phone: Start: 09-07-2022 Provision of activity privileges [facility] Work Phone: Start: 09-07-2022 Referral to occupational therapist [facility] Work Phone: Start: 09-07-2022 Referral to service [facility] Work Phone: Start: 09-07-2022 Speech therapy assessment [facility] Work Phone: Start: 09-07-2022 Tobacco use cessation education [facility] Work Phone: Start: 09-07-2022 [facility] Work Phone: Start: 09-06-2022 Verification routine [facility] Work Phone: Start: 09-06-2022 Admission procedure [facility] Work Phone: Start: 09-06-2022 [facility] Work Phone: Start: 09-01-2022 Suicide precautions [facility] Work Phone: Start: 05-10-2022 Influenza vaccination INFLUENZA (#1) [facility] Start: 02-01-2022 End: 02-11-2022 SARS-CoV-2 (COVID-19) RNA [Presence] in Respiratory specimen by FABRIZIO with probe detection ASYMPTOMATIC ELECTIVE COVID-19 Microbiology Routine Exposure to COVID-19 virus Expected: 02/01/2022, Expires: 02/11/2022 [facility] Work Phone: Comment on above: Expected: 02/01/2022, Expires: 2 Start: 09-09-2021 ADVANCE DIRECTIVE DISCUSSION ADVANCE DIRECTIVE DISCUSSION [facility] Start: 07-01-2021 Mammography MAMMOGRAM [facility] Start: 05-11-2021 COVID-19 VACCINE (3 - Booster for Pfizer series) COVID-19 VACCINE (3 - Booster for Pfizer series) [facility] Start: 02-03-2021 COVID-19 VACCINE (3 - Booster for Pfizer series) COVID-19 VACCINE (3 - Booster for Pfizer series) [facility] Start: 02-03-2021 COVID-19 VACCINE (3 - Pfizer series) COVID-19 VACCINE (3 - Pfizer series) [facility] Start: 01-07-2017 Medicare Annual Wellness Visit Medicare Annual Wellness Visit [facility] Start: 06-19-2016 SHINGRIX VACCINE (2 of 3) SHINGRIX VACCINE (2 of 3) [facility] Start: 06-19-2016 Zoster Vaccines (2 of 3) [facility] Vaccines (2 of 3) [facility] Start: 05-22-2016 MMR (1 of 2 - Risk 2-dose series) MMR (1 of 2 - Risk 2-dose series) [facility] Start: 05-22-2016 MMR Vaccine (1 of 2 - Risk 2-dose series) MMR Vaccine (1 of 2 - Risk 2-dose series) [facility] Start: 04-27-2016 Urine microalbumin profile DTAP,TDAP,TD (1 - Tdap) [facility] Start: 2009 HEPATITIS B (1 of 3 - Risk 3-dose series) HEPATITIS B (1 of 3 - Risk 3-dose series) [facility] Start: 2009 Hepatitis B Vaccine (1 of 3 - Risk 3-dose series) Hepatitis B Vaccine (1 of 3 - Risk 3-dose series) [facility] Start: 2009 RSV Immunization aged 60 or older (1 - 1-dose 60+ series) RSV Immunization aged 60 or older (1 - 1-dose 60+ series) [facility] Start: 2009 RSV Vaccine (1 - 1-dose 60+ series) RSV Vaccine (1 - 1-dose 60+ series) [facility] Start: 1994 COLOGUARD (FIT-DNA) COLOGUARD (FIT-DNA) [facility] Start: [address] COLONOGRAPHY [facility] Start: 1994 FECAL OCCULT BLOOD FECAL OCCULT BLOOD [facility] Start: 1994 Screening for malignant neoplasm of colon [facility] Start: 1994 SIGMOIDOSCOPY SIGMOIDOSCOPY [facility] Start: 1989 Screening for malignant neoplasm of breast Mammogram [facility] Start: 1968 HEPATITIS A (1 of 2 - Risk 2-dose series) HEPATITIS A (1 of 2 - Risk 2-dose series) [facility] Start: 1968 Hepatitis A Vaccine (1 of 2 - Risk 2-dose series) Hepatitis A Vaccine (1 of 2 - Risk 2-dose series) [facility] Start: 1968 HEPATITIS B (1 of 3 - Risk 3-dose series) HEPATITIS B (1 of 3 - Risk 3-dose series) [facility] Start: 1967 Hepatitis C screening Hepatitis C Screening [facility] Start: 1961 Depression Monitoring Depression Monitoring [facility] Start: 1961 Depression Screening Depression Screening [facility] Start: 1959 Meningococcal B Vaccine: Consider Based On Risk (1 of 4 - Increased Risk) Meningococcal B Vaccine: Consider Based On Risk (1 of 4 - Increased Risk) [facility] Start: 1959 MENINGOCOCCAL B: Consider based on risk (1 of 4 - Increased Risk Bexsero 2-dose series) MENINGOCOCCAL B: Consider based on risk (1 of 4 - Increased Risk Bexsero 2-dose series) [facility] Start: 1959 MENINGOCOCCAL B: Consider based on risk (1 of 4 - Increased Risk) MENINGOCOCCAL B: Consider based on risk (1 of 4 - Increased Risk) [facility] Start: 1950 HEPATITIS A (1 of 2 - Risk 2-dose series) HEPATITIS A (1 of 2 - Risk 2-dose series) [facility] Start: 1949 Medicare Annual Wellness (AWV) Medicare Annual Wellness (AWV) [facility] Start: 1949 Screening for malignant neoplasm of colon [facility] Start: 1949 Screening for osteoporosis Bone Density Scan [facility] Start: 1949 Thyroid stimulating hormone measurement TSH Level [facility] End: 06-20-2024 25-hydroxyvitamin D3 [Mass/volume] in Serum or Plasma VITAMIN D 25 HYDROXY Lab Routine Encounter for long-term current use of medication Vitamin D deficiency Every 3 months for 4 Occurrences starting 06/21/2023 until 06/20/2024 [facility] Work Phone: Comment on above: Every 3 months for 4 Occurrences startin g 06/21/2023 until 06/20/2024 Bacteria identified in Urine by Culture Urine Culture [facility] Work Phone: Bacteria identified in Urine by Culture URINE CULTURE Microbiology Routine Acute cystitis with hematuria Ordered: 09/28/2022 [facility] Work Phone: Comment on above: Ordered: 09/28/2022 Bacteria identified in Urine by Culture URINE CULTURE Microbiology Routine Urinary tract infection without hematuria, site unspecified 07/31/2023 3:24 PM EST [facility] Work Phone: Bacteria identified in Urine by Culture [facility] Work Phone: Comment on above: Ordered: 07/25/2024 End: 07-24-2025 BD DXA TRABECULAR BONE SCORE (TBS) BD DXA TRABECULAR BONE SCORE (TBS) Radiology Routine Asymptomatic postmenopausal status 1 Occurrences starting 06/24/2024 until 07/24/2025 [facility] Comment on above: 1 Occurrences starting 06/24/2024 until 07/24/2025 End: 06-20-2024 CBC panel - Blood by Automated count CBC Lab Routine Encounter for long-term current use of medication Every 3 months for 4 Occurrences starting 06/21/2023 until 06/20/2024 [facility] Work Phone: Comment on above: Every 3 months for 4 Occurrences startin g 06/21/2023 until 06/20/2024 End: 06-20-2024 Comprehensive metabolic 2000 panel - Serum or Plasma COMP METABOLIC PANEL Lab Routine Encounter for long-term current use of medication Every 3 months for 4 Occurrences starting 06/21/2023 until 06/20/2024 [facility] Work Phone: Comment on above: Every 3 months for 4 Occurrences startin g 06/21/2023 until 06/20/2024 End: 06-03-2026 DBT Breast - bilateral screening OZIEL SCREENING W GABRIEL Radiology Routine Encounter for screening mammogram for malignant neoplasm of breast 1 Occurrences starting 05/04/2025 until 06/03/2026 [facility] Work Phone: Comment on above: 1 Occurrences starting 05/04/2025 until 06/03/2026 End: 04-19-2023 Dxa bone density study 1/> sites axial skel DXA-AXIAL SKELETON Radiology Routine Age-related osteoporosis without current pathological fracture 1 Occurrences starting 03/20/2022 until 04/19/2023 [facility] Work Phone: Comment on above: 1 Occurrences starting 03/20/2022 until 04/19/2023 End: 07-24-2025 DXA Skeletal system.axial Views for bone density DXA-AXIAL SKELETON Radiology Routine Asymptomatic postmenopausal status 1 Occurrences starting 06/24/2024 until 07/24/2025 [facility] Work Phone: Comment on above: 1 Occurrences starting 06/24/2024 until 07/24/2025 End: 06-20-2024 Magnesium [Mass/volume] in Serum or Plasma MAGNESIUM BLD Lab Routine Encounter for long-term current use of medication Every 3 months for 4 Occurrences starting 06/21/2023 until 06/20/2024 [facility] Work Phone: Comment on above: Every 3 months for 4 Occurrences startin g 06/21/2023 until 06/20/2024 End: 04-23-2024 OZIEL SCREENING OZIEL SCREENING Radiology Routine Encounter for screening mammogram for breast cancer 1 Occurrences starting 03/25/2023 until 04/23/2024 [facility] Work Phone: Comment on above: 1 Occurrences starting 03/25/2023 until 04/23/2024 End: 01-29-2025 MG Breast Screening OZIEL SCREENING Radiology Routine Encounter for screening mammogram for breast cancer 1 Occurrences starting 12/31/2023 until 01/29/2025 [facility] Comment on above: 1 Occurrences starting 12/31/2023 until 01/29/2025 MG Breast Screening OZIEL SCREENIN G Radiology Routine Encounter for screening mammogram for breast cancer 03/27/2024 10:26 AM EDT [facility] Work Phone: End: 05-24-2025 MG Breast Screening [facility] Work Phone: Comment on above: ONCE for 1 Occurrences starting 05/24/20 until 05/24/2025 End: 08-26-2023 MR Hand - right WO contrast [facility] Work Phone: Comment on above: Once for 1 Occurrences starting 08/26/20 until 08/26/2023 End: 08-26-2023 MR Wrist - right WO contrast [facility] Work Phone: Comment on above: Once for 1 Occurrences starting 08/26/20 until 08/26/2023 OUTSIDE PROCEDURE SCAN OUTSIDE P ROCEDURE SCAN Procedures Ordered: 08/23/2023 [facility] [employer] [facility] Comment on above: Ordered: 08/23/2023 Patient Education [facility] Work Phone: Patient referral [facility] Work Phone: End: 04-19-2023 Screening mammography bi 2-view breast inc cad OZIEL SCREENING Radiology Routine Encounter for screening mammogram for breast cancer 1 Occurrences starting 03/20/2022 until 04/19/2023 [facility] Work Phone: Comment on above: 1 Occurrences starting 03/20/2022 until 04/19/2023 End: 06-20-2024 Thyrotropin [Units/volume] in Serum or Plasma TSH BLD Lab Routine Acquired hypothyroidism Encounter for long-term current use of medication Every 3 months for 4 Occurrences starting 06/21/2023 until 06/20/2024 [facility] Work Phone: Comment on above: Every 3 months for 4 Occurrences startin g 06/21/2023 until 06/20/2024 End: 06-20-2024 Thyroxine (T4) free [Mass/volume] in Serum or Plasma T4 FREE/FREE THYROX Lab Routine Acquired hypothyroidism Encounter for long-term current use of medication Every 3 months for 4 Occurrences starting 06/21/2023 until 06/20/2024 [facility] Work Phone: Comment on above: Every 3 months for 4 Occurrences startin g 06/21/2023 until 06/20/2024 End: 06-20-2024 Triiodothyronine (T3) Free [Mass/volume] in Serum or Plasma T3 FREE BLD Lab Routine Acquired hypothyroidism Encounter for long-term current use of medication Every 3 months for 4 Occurrences starting 06/21/2023 until 06/20/2024 [facility] Work Phone: Comment on above: Every 3 months for 4 Occurrences startin g 06/21/2023 until 06/20/2024 UA DIP B/O UA DIP B/O Lab R outine Urinary tract infection without hematuria, site unspecified Ordered: 07/31/2023 [facility] Work Phone: Comment on above: Ordered: 07/31/2023 End: 01-26-2023 XR HAND GENERAL 3V PA/LAT/OBL LEFT [facility] Work Phone: Comment on above: 1 Occurrences starting 12/27/2021 until 01/26/2023 XR HAND GENERAL 3V PA/LAT/OBL LEFT XR HAND GENERAL 3V PA/LAT/OBL LEFT Radiology Routine Closed nondisplaced fracture of neck of fifth metacarpal bone of left hand, initial encounter 12/29/2021 1:15 PM EDT [facility] Work Phone: End: 01-29-2025 XR Lumbar spine 3 Views XR LUMBAR GENERAL 3V AP/LAT/L5-S1 Radiology Routine Acute bilateral low back pain without sciatica 1 Occurrences starting 12/31/2023 until 01/29/2025 [facility] Work Phone: Comment on above: 1 Occurrences starting 12/31/2023 until 01/29/2025 XR Lumbar spine 3 Views XR LUMBA R GENERAL 3V AP/LAT/L5-S1 Radiology Routine Acute bilateral low back pain without sciatica 12/31/2023 3:32 PM EDT [facility] Immunizations Immunization Date Immunization Notes Care Provider Fa umm 01-01-2025 tetanus toxoid, redu dory diphtheria toxoid, and acellular pertussis vaccine, adsorbed Dr. Chance Kolb MD Work Phone: [facility] 06-24-2024 influenza, high dose seasonal, preservative-free Bailey Mahmood'Edison PT [facility] 06-24-2024 influenza virus vacc ine, unspecified formulation Nguyễn Stringer AIR TWISTER WINDER.PEDIATRICIAN ACTIVE PRACTICE Work Phone: [facility] 06-18-2023 influenza, high dose seasonal, preservative-free Chance Kolb MD Work Phone: [facility] Work Phone: 06-18-2023 influenza virus vacc ine, unspecified formulation Screen Wstr [facility] 06-06-2023 influenza (HD-IIV4) vaccine, age 65+ yr, high dose, quadrivalent, PF (FLUZONE HIGH-DOSE) Malachi Lilly AIR TWISTER WINDER.PROP DRAWER Work Phone: [facility] 04-29-2023 tetanus toxoid, redu dory diphtheria toxoid, and acellular pertussis vaccine, adsorbed [facility] 05-30-2022 influenza (aIIV4) vaccine, age 65+ yr, quadrivalent, PF (FLUAD QUAD) Chance Kolb MD Work Phone: [facility] 06-01-2021 influenza (aIIV4) vaccine, age 65+ yr, quadrivalent, PF (FLUAD QUAD) Chance Kolb MD Work Phone: [facility] 06-01-2021 influenza, high dose seasonal, preservative-free Jersey Stern V, DO Work Phone: [facility] Work Phone: 05-21-2021 tetanus toxoid, redu dory diphtheria toxoid, and acellular pertussis vaccine, adsorbed [facility] 12-09-2020 COVID-19 vaccine, ag e 12+ yr (PFIZER-BIONTECH - PURPLE TOP) Jersey Stern V, DO Work Phone: [facility] Work Phone: 11-17-2020 COVID-19 vaccine, ag e 12+ yr (OnMyBlock-BIONTECH - PURPLE TOP) Jersey Stern V, DO Work Phone: [facility] Work Phone: 06-10-2020 influenza (aIIV4) vaccine, age 65+ yr, quadrivalent, PF (FLUAD QUAD) Chance Kolb MD Work Phone: [facility] 06-10-2020 influenza, seasonal, injectable Jersey Stern V, DO Work Phone: [facility] 05-21-2019 Seasonal trivalent influenza vaccine, adjuvanted, preservative free Jersey Stern V, DO Work Phone: [facility] 05-18-2018 pneumococcal conjuga te vaccine, 13 valent Jersey Stern V, DO Work Phone: [facility] 05-18-2018 Seasonal trivalent influenza vaccine, adjuvanted, preservative free Jersey Stern V, DO Work Phone: [facility] 06-17-2017 influenza, high dose seasonal, preservative-free Jersey Stern V, DO Work Phone: [facility] 06-11-2016 influenza, high dose seasonal, preservative-free Jersey Stern V, DO Work Phone: [facility] 06-09-2016 influenza (HD-IIV4) vaccine, age 65+ yr, high dose, quadrivalent, PF (FLUZONE HIGH-DOSE) Chance Kolb MD Work Phone: [facility] [facility] 04-26-2016 TD(adult) unspecifie d formulation Thea Vail MD Work Phone: [facility] 04-26-2016 tetanus and diphther ia toxoids, adsorbed, preservative free, for adult use (2 Lf of tetanus toxoid and 2 Lf of diphtheria toxoid) Jersey Stern V, DO Work Phone: [facility] 04-24-2016 pneumococcal polysaccharide vaccine, 23 valent Jersey Stern V, DO Work Phone: [facility] 04-24-2016 zoster vaccine, live Jersey Stern V, DO Work Phone: [facility] 04-16-2016 TD(adult) unspecifie d formulation Chance Kolb MD Work Phone: [facility] 10-24-2015 pneumococcal conjuga te vaccine, 13 valent Jersey Stern V, DO Work Phone: [facility] 06-30-2014 influenza virus vacc ine, unspecified formulation Jersey Stern V, DO Work Phone: [facility] 06-10-2013 influenza virus vacc ine, unspecified formulation Jersey Stern V, DO Work Phone: [facility] Work Phone: 08-01-2010 pneumococcal polysaccharide vaccine, 23 valent Jersey Stern V, DO Work Phone: [facility] 06-28-2010 influenza virus vacc ine, unspecified formulation Jersey Jarred V, DO Work Phone: [facility] Work Phone: 07-14-2007 influenza virus vacc ine, unspecified formulation Jersey Stern V, DO Work Phone: [facility] Work Phone: 02-12-2007 tetanus and diphther ia toxoids, adsorbed, preservative free, for adult use (2 Lf of tetanus toxoid and 2 Lf of diphtheria toxoid) Jersey Stern V, DO Work Phone: [facility] 07-24-2006 influenza virus vacc ine, unspecified formulation Jerseyzachariah Stern V, DO Work Phone: [facility] 07-17-2005 influenza virus vacc ine, unspecified formulation Jersey Jarred Spears, DO Work Phone: [facility] Work Phone: Payers Date Payer Category Payer Self-pay [id number] 2017 Medicare MEDICARE MEDICAR E A AND B [id number] 2017-Present [phone] [address] [address] [place] [address] Medicare [id number] 2017 Medicare [id number] 2017 Private Health Insurance [employer] A ETNA MEDICARE SUPPLEMENT [id number] 2017-Present [phone] [address] [address] [place] [address] Indemnity [id number] 2017 Private Health Insurance [id number] 2017 Medicare [id number] 2017 Private Health Insurance [facility] [id number] 2014 Unknown [facility] SALUD [id number] Unknown [id number] Unknown [id number] Unknown [id number] Unknown [id number] .[id number] Unknown [id number] .2.462 Unknown [id number] .2.462 Unknown [id number] .2.462 Unknown [id number] .2.462 Unknown [id number] .2.462 Unknown [id number] .2.462 Unknown [id number] .2.462 Social History Date Type Detail Facility Start: 07-10-2011 End: 03-18-[address] [facility] Never smoked tobacco [facility] Start: 12-01-2021 End: 01-29-2025 Alcohol intake Current non-drinker of alcohol (finding) [facility] Start: 07-01-2020 History SDOH Physica l Activity DPW 0 [facility] Start: 07-01-2020 History SDOH Stress 1 [facility] Start: 07-01-2020 History SDOH Financial 5 [facility] Start: 07-01-2020 History SDOH Transpo rt Med 2 [facility] Start: 07-01-2020 Education 21 [facility] Start: 1950 Sex Assigned At Female C [facility] Start: 11-15-2021 End: 03-30-2022 Exposure to SARS-CoV-2 (event) Not sure [facility] Start: 01-19-2022 End: 01-29-2022 Exposure to SARS-CoV-2 (event) Yes [facility] Work Phone: Start: 07-10-2011 End: 08-07-2022 Tobacco use and exposure Smokeless tobacco non-user [facility] Work Phone: Start: 05-27-2022 End: 04-29-2023 Tobacco smoking status NHIS Unknown if ever smoked [facility] Start: 12-08-2015 None [facility] Start: 12-08-2015 Spouse/ Signif icant Other [facility] Start: 09-30-2016 Non-smoker [facility] Start: 11-16-2022 End: 03-25-2023 History of Social function [facility] Work Phone: Start: 11-16-2022 End: 03-25-2023 Tobacco use panel [facility] Work Phone: Start: 08-10-2012 How hard is it for y ou to pay for the very basics like food, housing, medical care, and heating Not hard at all [facility] Work Phone: Do you feel stress - tense, restless, nervous, or anxious, or unable to sleep at night because your mind is troubled all the time - these days [OSQ] Not at all [facility] Work Phone: (I/We) worried wheth er (my/our) food would run out before (I/we) got money to buy more. Never true [facility] Work Phone: Start: 04-29-2020 Gender identity Identifies as female gender (finding) [facility] Start: 04-29-2020 Sexual orientation Heterosexual (philip ortiz) [facility] Start: 05-04-2025 Alcoholic beverage intake Lifetime non-drinker (finding) [facility] How often to you hav e a drink containing alcohol? Never [facility] Goals Date Patient Goal Desired Activity /State Functional Status Date Assessment Result Facility 05-04-2025 Total score [AUDIT-C] 0 05/04/20 25 2:43 PM EDT Beth Linda LPN [facility] 09-08-2022 Functional status Activity Abili ty Standby Assist [facility] Work Phone: 09-07-2022 Functional status Patient Activi ty Ambulates [facility] Work Phone: 09-07-2022 Functional status Assistive Ana jaymie Rolling Walker [facility] Work Phone: 01-06-2015 Are you deaf, or do you have serious difficulty hearing No 01/06/2015 9:19 AM PBT Homa Kirkland LPN No [facility] 01-06-2015 Are you blind, or do you have serious difficulty seeing, even when wearing glasses No 01/06/2015 9:19 AM PBT Homa Kirkland LPN No [facility] 01-06-2015 Do you have serious difficulty walking or climbing stairs No 01/06/2015 9:19 AM EDT Homa Kirkland LPN No [facility] 01-06-2015 Do you have difficul ty dressing or bathing No 01/06/2015 9:19 AM Homa Golden LPN No [facility] 01-06-2015 Because of a physica l, mental, or emotional condition, do you have difficulty doing errands alone such as visiting a physician's office or shopping Yes 01/06/2015 9:19 AM Homa Golden LPN Yes [facility] Mental Status Date Assessment Result Facility 09-08-2022 Cognitive function Voice/Name [facility] Work Phone: 09-06-2022 Cognitive function Level Of Cons ciousness Awake;Alert;Appropriate;Fol lows Commands [facility] Work Phone: 01-06-2015 Because of a physica l, mental, or emotional condition, do you have serious difficulty concentrating, remembering, or making decisions No 01/06/2015 9:19 AM Homa Golden LPN No [facility] Clinical Notes 10-17-2021 to 05-26-2025 Note Date & Type Note Facility 05-26-2025 History and physi taty note Note Date/Time May 26, 2025 1:55pm [facility] [address] [place] [address] H&P Exam - Wound Care 05/26/25 1349 MR#: [id number] Acct: [id number] Name: GERALDINE HAIRSTON Rep #:[id number] : [...] of her injury, she presented to the [facility] Emergency Department, where she was found to [...] her age, though has a history of once-dzkn-jhwyaergoyshxsc, GERD, hypertension, hypothyroidism, and osteoporosis. She denies a history of diabetes mellitus, myocardial infarction,cerebrovascular accident, renal disease, and pulmonary disease. Her BMI is 19.5. She is . Since the patient's initial presentation, the traumatic injury on her left calf has healed, and she has sustained a similar injury to the right medial calf, for which she remained a patient at the Wound Center. [facility] Medical History Non-pressure chronic ulcer of [...] Date Recorded By Document 05/25/25 13:09 RUSS [id number] 05/25/25 13:12 05/25/25 13:09 DANTE - Today's Visit Information Type of service Follow-up Visit (Physician/PROP DRAWER ) Arrival Mode Ambulatory,Cane Patient Identification Verified [...] 0-10 Numeric Is Patient Pain Free? Yes [facility] Nurse 1 - General Ulcer Measurement Start: 05/25/25 13:09 Freq: Status: Active Protocol: Activity Type Activity Date Activity User E-sign Co-sign Detail Recorded Client Recorded Date Recorded By Document 05/25/25 13:09 KW [id number] 05/25/25 13:12 KW 05/25/25 13:09 Wound Center [...] Recorded Date Recorded By Document 05/25/25 13:16 [id number] 05/25/25 13:17 DS 05/25/25 13:16 Wound Center [...] Date Recorded By Document 05/25/25 13:17 DS [id number] 05/25/25 13:17 DS 05/25/25 13:17 Wound Care Center Nurse 3 #2- R LAT LEG- DOG SCRATCH -Wound Comment(s) pt healed - pt d/c Pain Scale: 0-10 Numeric Is Patient Pain Free? 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 However, as of this clinic visit, all wounds are nowcompletely healed and epithelialized. Therefore, the patient is to be discharged, and she will follow-up henceforth on an as needed basis. Total time: 20 minutes 05/26/25 [id number] <Electronically signed by Cedric Gibbons MD> Cosigner Signature (if applicable): CC: ~ Signed [facility] Work Phone: 1(306) 562-190309-17-2025 History and physical note [facility] [address] [place] [address] H&P Exam - Wound Care 05/26/25 1349 MR#: [id number] Acct: [id number] Name: GERALDINE HAIRSTON Rep #:[id number] : [...] of her injury, she presented to the [facility] Emergency Department, where she was found to [...] her age, though has a history of ednk-dxyk-lmphtwkfdgwilqb, GERD, hypertension, hypothyroidism, and osteoporosis. She denies a history of diabetes mellitus, myocardial infarction,cerebrovascular accident, renaldisease, and pulmonary disease. Her BMI is 19.5. She is . Since the patient's initial presentation, the traumatic injury on her left calf has healed, and she has sustained a similar injury to the right medial calf, for which she remained a patient at the Wound Center. [facility] Medical History Non-pressure chronic ulcer of [...] Date Recorded By Document 05/25/25 13:09 RUSS [id number] 05/25/25 13:12 05/25/25 13:09 DANTE - Today's Visit Information Type of service Follow-up Visit (Physician/PROP DRAWER ) Arrival Mode Ambulatory,Cane Patient Identification Verified [...] 0-10 Numeric Is Patient Pain Free? Yes [facility] Nurse 1 - General Ulcer Measurement Start: 05/25/25 13:09 Freq: Status: Active Protocol: Activity Type Activity Date Activity User E-sign Co-sign Detail Recorded Client Recorded Date Recorded By Document 05/25/25 13:09 KW [id number] 05/25/25 13:12 KW 05/25/25 13:09 Wound Center [...] Recorded Date Recorded By Document 05/25/25 13:16 [id number] 05/25/25 13:17 DS 05/25/25 13:16 Wound Center [...] Date Recorded By Document 05/25/25 13:17 DS [id number] 05/25/25 13:17 DS 05/25/25 13:17 Wound Care Center Nurse 3 #2- R LAT LEG- DOG SCRATCH -Wound Comment(s) pt healed - pt d/c Pain Scale: 0-10 Numeric Is Patient Pain Free? 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 Author Type: Emr Implementation Specialist Type: Progress Notes Filed: 05/24/2025 13:50 Note [...] PATIENT PRESENTS WITH AN IMPLANTABLE OR ATTACHED LPC: No RADIOLOGY DEPARTMENT: Mammography PERIPHERAL IV DATA: Not applicable SIGNED BY: Paulie Espino May 24, 2025 1:49 [facility]08-31-2025 History and physical note Author Cedric Gibbons [facility] Note Date/Time May 09, 2025 5: 09pm [facility] [address] [place] [address] H&P Exam - Wound Care 05/09/25 1703 MR#: [id number] Acct: [id number] Name: GERALDINE HAIRSTON Rep #:[id number] : [...] of her injury, she presented to the [facility] Emergency Department, where she was found to [...] her age, though has a history of fnyp-ifmk-vfbmrbgbjvoefen, GERD, hypertension, hypothyroidism, and osteoporosis. She denies a history of diabetes mellitus, myocardial infarction,cerebrovascular accident, renal disease, and pulmonary disease. Her BMI is 19.5. She is . Since the patient's initial presentation, the traumatic injury on her left calf has healed, and she has sustained a similar injury to the right medial calf, for which she remains a patient at the Wound Center. [facility] Medical History Non-pressure chronic ulcer of [...] She was seen and evaluated in the [facility] Emergency Department on March 13, 2025, at which time she was found to have a triangular-shaped laceration/avulsion injury on her right calf. Seven 4-0 Ethilon sutures were used to reapproximate the avulsion flap. The patient was placed on cephalexin and Augmentin orally. The [facility], which were placed in the Emergency Department, [facility] [place] Since that time, the traumatic flap has largely necrosed due to ischemia. An open wound persists at the site, which appears to be full-thickness in nature. It extends through all layers of the dermis and into the subcutaneous tissues. Wound margins are well beveled. There is a small amount of slough and bioburden. Union healthy granulation tissue is also noted. Dimensions [...] Recorded Date Recorded By Document 04/20/25 13:14 [facility] [id number] 04/20/25 13:20 [facility] Document 05/04/25 13:08 RUSS [id number] 05/04/25 13:09 RUSS 04/20/25 05/04/25 13:14 13:08 - Today's Visit Information Type of service Follow-up Visit Follow-up Visit (Physician/PROP DRAWER (Physician/PROP DRAWER ) ) Arrival Mode Ambulatory Ambulatory,Cane Transfer [...] Recorded Date Recorded By Document 04/20/25 13:14 [facility] [id number] 04/20/25 13:20 [facility] Document 05/04/25 13:08 [id number] 05/04/25 13:09 KW 04/20/25 05/04/25 13:14 13:08 [...] -Texture (Maylin-wound Skin Appearance) Assessed Assessed -Moisture (Amylin-wound Skin Appearance) Assessed,Dry/ Assessed Scaly -Color (Maylin-wound [...] Recorded Date Recorded By Document 04/20/25 13:30 [id number] 04/20/25 13:34 Document 05/04/25 13:23 DS [id number] 05/04/25 13:25 DS 04/20/25 05/04/25 13:30 13:23 [...] Date Recorded By Document 04/20/25 13:39 BM [id number] 04/20/25 13:39 BMF Document 05/04/25 13:36 ML [id number] 05/04/25 13:37 ML 04/20/25 05/04/25 13:39 13:36 [...] Transportation Private Auto Charges/Coding Procedures Integumentary 111xxx-113xx: 95638 Esha subq tissue 20 sq cm/< Assessment/Plan [...] Age-related osteoporosis without current pathological fracture (11) Oroh-pckg-kdscfayfiyamtve: 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 The injury occurred when thepatient's dog traumatized her leg with its nails. Due to management at the [facility], the wound on the left calf has completely healed and epithelialized. However, the patient subsequently sustained a wound on her right calf as the result of a similar injury caused by her dog. She was seen and evaluated in the [facility] EmergencyDepartment on March 13, 2025, at which time she was found to have a triangular-shaped laceration/avulsion injury on her right calf. Seven 4-0 Ethilon sutures were used to reapproximate the avulsion flap. The patient was placed on cephalexin and Augmentin orally. The sutures, which were placed in the Emergency Department, were removed on March 22, 2025, at the [facility] in [place]. The avulsion flap did not survive due [...] Cosigner Signature (if applicable): CC: ~ Signed [facility] Work Phone: [phone] 105-140108-31-2025 History and physical note [facility] [address] [place] [address] H&P Exam - Wound Care 05/09/25 170 MR#: [id number] Acct: [id number] Name: GERALDINE HAIRSTON Rep #:[id number] : [...] of her injury, she presented to the [facility] Emergency Department, where she was found to [...] her age, though has a history of tnha-damo-fxaylbvqcejfkel, GERD, hypertension, hypothyroidism, and osteoporosis. She denies a history of diabetes mellitus, myocardial infarction,cerebrovascular accident, renaldisease, and pulmonary disease. Her BMI is 19.5. She is . Since the patient's initial presentation, the traumatic injury on her left calf has healed, and she has sustained a similar injury to the right medial calf, for which she remains a patient at the Wound Center. [facility] Medical History Non-pressure chronic ulcer of [...] She was seen and evaluated in the [facility] Emergency Department on March 13, 2025, atwhich time she was found to have a triangular-shaped laceration/avulsion injury on her right calf. Seven 4-0 Ethilon sutures were used to reapproximate the avulsion flap. The patient was placed on cephalexin and Augmentin orally. The sutures, which were placed in the Emergency Department, [facility] [place] Since that time, the traumatic flap has larg johnny necrosed due to ischemia. An open wound persists at the site, which appears to be full-thickness in nature. It extends through all layers of the dermis and into the subcutaneous tissues. Wound margins are well beveled. There is a small amount of slough and bioburden. Union healthy granulation tissue is also noted. Dimensions [...] Date Recorded By Document 04/20/25 13:14 BM [id number] 04/20/25 13:20 BM Document 05/04/25 13:08 KW [id number] 05/04/25 13:09 KW 04/20/25 05/04/25 13:14 13:08 - Today's Visit Information Type of service Follow-up Visit Follow-up Visit (Physician/PROP DRAWER (Physician/PROP DRAWER ) ) Arrival Mode Ambulatory Ambulatory,Cane Transfer [...] Date Recorded By Document 04/20/25 13:14 BM [id number] 04/20/25 13:20 [facility] Document 05/04/25 13:08 KW [id number] 05/04/25 13:09 04/20/25 05/04/25 13:14 13:08 Wound [...] Recorded Date Recorded By Document 04/20/25 13:30 [id number] 04/20/25 13:34 Document 05/04/25 13:23 DS [id number] 05/04/25 13:25 DS 04/20/25 05/04/25 13:30 13:23 [...] Recorded Date Recorded By Document 04/20/25 13:39 [facility] [id number] 04/20/25 13:39 [facility] Document 05/04/25 13:36 ML [id number] 05/04/25 13:37 ML 04/20/25 05/04/25 13:39 13:36 [...] Transportation Private Auto Charges/Coding Procedures Integumentary 111xxx-113xx: 55782 Esha subq tissue 20 sq cm/< Assessment/Plan [...] Age-related osteoporosis without current pathological fracture (11) Glqp-okhm-fgwdnhmtglrlsot: 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 The injury occurred when thepatient's dog traumatized her leg with its nails. Due to management at the [facility], the wound on the left calf has completely healed and epithelialized. However, the patient subsequently sustained a wound on her right calf as the result of a similar injury caused by her dog. [facility], at which time she was found to havea triangular-shaped laceration/avulsion injury on her right calf. Seven 4-0 Ethilon sutures were used to reapproximate the avulsion flap. The patient was placed on cephalexin and Augmentin orally. The sutures, which were placed in the Emergency Department, were removed on March 22, 2025, at the [facility] in [place]. The avulsion flap did not survive due [...] a supplement. Total time: 22 minutes 05/09/25 0094 Cosigner Signature (if applicable): CC: ~ Signed [facility]08-26-2025 History of Present illness Narrative* Nguyễn Stringer APRN.PEDIATRICIAN ACTIVE PRACTICE - 05/04/2025 3:20 PM EDT Images from [...] in the medical record. Dr. Alin Altamirano Clip Riveter Dr. Thom Swan at [facility] follow up. Medical/Family history review [...] Z12.11 She gets colonoscopies completed by a sieve maker in [place] [address] Dr[address] Swan, last was completed in 2019. 5-year follow-up recommended. 5. Encounter for immunization - ICD9: V03.89, ICD10: Z23 - [facility] PRINTED PHARMACY INSTRUCTIONS - [facility] PRINTED [facility] INSTRUCTIONS 6 mo follow up Chance Kolb MD schedule mammogram this year. colonoscopy this year with sieve maker. Nguyễn Stringer APRN.CNS documented in this encounter[facility]-2025 NoteHNO ID: [id number] Author: NGUYỄN STRINGER APRN.CNS Service: ? Author [...] in the medical record. Dr. Alin Altamirano Clip Riveter Dr. Thom Swan at [facility] follow up. Medical/Family history review [...] Z12.11 She gets colonoscopies completed by a sieve maker in [place] [address] Swan, last was completed in 2019. 5-year follow-up recommended. 5. Encounter for immunization - ICD9: V03.89, ICD10: Z23 - [facility] PRINTED PHARMACY INSTRUCTIONS - [facility] PRINTED [facility] INSTRUCTIONS 6 mo follow up Chance Kolb MD schedule mammogram this year. colonoscopy this year with sieve maker. Nguyễn Stringer APRN.[facility]08-26-2025 Instructions* Patient Instructions* Nguyễn Stringer APRN.PEDIATRICIAN ACTIVE PRACTICE - 05/04/2025 12:39 PM EDT Screening schedule [...] review all the medicines you take, even igox-fnc-ujwxick medicines. As you get older, the way [...] have certain medical conditions. documented in [facility]-2025 History and physical note Author Cedric Gibbons [facility] Note Date/Time April 21, 2025 5: 59pm [facility] [facility] [address] [place] [address] H&P Exam - Wound Care 04/21/25 1750 MR#: [id number] Acct: [id number] Name: GERALDINE HAIRSTON Rep #:[id number] : [...] of her injury, she presented to the [facility] Emergency Department, where she was found to [...] her age, though has a history of zchk-jrrc-kfkbgzraqggjhyy, GERD, hypertension, hypothyroidism, and osteoporosis. She denies a history of diabetes mellitus, myocardial infarction,cerebrovascular accident, renal disease, and pulmonary disease. Her BMI is 19.5. She is . Since the patient's initial presentation, the traumatic injury on her left calf has healed, and she has sustained a similar injury to the right medial calf, for which she remains a patient at the Wound Center. [facility] Medical History Non-pressure chronic ulcer of [...] She was seen and evaluated in the [facility] Emergency Department on March 13, 2025, at which time she was found to have a triangular-shaped laceration/avulsion injury on her right calf. Seven 4-0 Ethilon sutures were used to reapproximate the avulsion flap. The patient was placed on cephalexin and Augmentin orally. The sutures, which were placed in the Emergency Department, [facility] [place] Since that time, the traumatic flap has largely necrosed due to ischemia. An open wound persists at the site, which appears to be full-thickness in nature. It extends through all layers of the dermis and into the subcutaneous tissues. Wound margins are well beveled. There is a small amount of slough and bioburden. Union healthy granulation tissue is also noted. Dimensions [...] Recorded Date Recorded By Document 04/20/25 13:14 [facility] [id number] 04/20/25 13:20 [facility] 04/20/25 13:14 - Today's Visit Information Type of service Follow-up Visit (Physician/PROP DRAWER ) Arrival Mode Ambulatory Transfer Assistance None [...] Recorded Date Recorded By Document 04/20/25 13:14 [facility] [id number] 04/20/25 13:20 [facility] 04/20/25 13:14 W[facility] Center Nurse 1 [...] Recorded Date Recorded By Document 04/20/25 13:30 [id number] 04/20/25 13:34 04/20/25 13:30 Wound Center Nurse [...] Recorded Date Recorded By Document 04/20/25 13:39 [facility] [id number] 04/20/25 13:39 [facility] 04/20/25 13:39 [facility] Nurse [...] Transportation Private Auto Charges/Coding Procedures Integumentary 111xxx-113xx: 22518 Esha subq tissue 20 sq cm/< Assessment/Plan [...] Age-related osteoporosis without current pathological fracture (11) Uoyw-ogih-twwkcjdftvopevm: 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 The injury occurred when thepatient's dog traumatized her leg with its nails. Due to management at the [facility], the wound on the left calf has completely healed and epithelialized. However, the patient subsequently sustained a wound on her right calf as the result of a similar injury caused by her dog. She was seen and evaluated in the [facility] EmergencyDepartment on March 13, 2025, at which time she was found to have a triangular-shaped laceration/avulsion injury on her right calf. Seven 4-0 Ethilon sutures were used to reapproximate the avulsion flap. The patient was placed on cephalexin and Augmentin orally. The sutures, which were placed in the Emergency Department, were removed on March 22, 2025, at the [facility] in [place]. The avulsion flap has not survived due [...] Cosigner Signature (if applicable): CC: ~ Signed [facility] Work Phone: 1([phone]) 594-448808-13-2025 History and physical note [facility] [address] [place] [address] H&P Exam - Wound Care 04/21/25 175 MR#: [id number] Acct: [id number] Name: GERALDINE HAIRSTON Rep #:[id number] : [...] of her injury, she presented to the [facility] Emergency Department, where she was found to [...] her age, though has a history of gosp-hfrp-adosisfoymuuqjo, GERD, hypertension, hypothyroidism, and osteoporosis. She denies a history of diabetes mellitus, myocardial infarction,cerebrovascular accident, renaldisease, and pulmonary disease. Her BMI is 19.5. She is . Since the patient's initial presentation, the traumatic injury on her left calf has healed, and she has sustained a similar injury to the right medial calf, for which she remains a patient at the Wound Center. [facility] Medical History Non-pressure chronic ulcer of [...] She was seen and evaluated in the [facility] Emergency Department on March 13, 2025, atwhich time she was found to have a triangular-shaped laceration/avulsion injury on her right calf. Seven 4-0 Ethilon sutures were used to reapproximate the avulsion flap. The patient was placed on cephalexin and Augmentin orally. The sutures, which were placed in the Emergency Department, [facility] [place] Since that time, the traumatic flap has larg johnny necrosed due to ischemia. An open wound persists at the site, which appears to be full-thickness in nature. It extends through all layers of the dermis and into the subcutaneous tissues. Wound margins are well beveled. There is a small amount of slough and bioburden. Union healthy granulation tissue is also noted. Dimensions [...] Recorded Date Recorded By Document 04/20/25 13:14 [facility] [id number] 04/20/25 13:20 [facility] 04/20/25 13:14 - Today's Visit Information Type of service Follow-up Visit (Physician/PROP DRAWER ) Arrival Mode Ambulatory Transfer Assistance None [...] Recorded Date Recorded By Document 04/20/25 13:14 [facility] [id number] 04/20/25 13:20 [facility] 04/20/25 13:14 Wound Center Nurse 1 [...] Recorded Date Recorded By Document 04/20/25 13:30 [id number] 04/20/25 13:34 04/20/25 13:30 Wound Center Nurse [...] Recorded Date Recorded By Document 04/20/25 13:39 [facility] [id number] 04/20/25 13:39 [facility] 04/20/25 13:39 [facility] Center Nurse [...] Transportation Private Auto Charges/Coding Procedures Integumentary 111xxx-113xx: 83179 Esha subq tissue 20 sq cm/< Assessment/Plan [...] Age-related osteoporosis without current pathological fracture (11) Xeou-uzkt-aehqxiwxcocmjhe: 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 The injury occurred when thepatient's dog traumatized her leg with its nails. Due to management at the [facility], the wound on the left calf has completely healed and epithelialized. However, the patient subsequently sustained a wound on her right calf as the result of a similar injury caused by her dog. [facility], at which time she was found to havea triangular-shaped laceration/avulsion injury on her right calf. Seven 4-0 Ethilon sutures were used to reapproximate the avulsion flap. The patient was placed on cephalexin and Augmentin orally. The sutures, which were placed in the Emergency Department, were removed on March 22, 2025, at the [facility] in [place]. The avulsion flap has not survived due [...] a supplement. Total time: 25 minutes 04/21/25 5189 Cosigner Signature (if applicable): CC: ~ Signed [facility]07-24-2025 History and physical note Author Cedric Gibbons [facility] Note Date/Time April 01, 2025 11:5 1am [facility] [address] [place] [address] H&P Exam - Wound Care 04/01/25 1135 MR#: [id number] Acct: [id number] Name: GERALDINE HAIRSTON Elin Rep #:[id number] [...] of her injury, she presented to the [facility] Emergency Department, where she was found to [...] her age, though has a history of tpht-jxam-sbribnxaixnseqc, GERD, hypertension, hypothyroidism, and osteoporosis. She denies a history of diabetes mellitus, myocardial infarction,cerebrovascular accident, renal disease, and pulmonary disease. Her BMI is 19.5. She is . [facility] Medical History Non-pressure chronic ulcer of [...] She was seen and evaluated in the [facility] Emergency Department on March 13, 2025, at which time she was found to have a triangular-shaped laceration/avulsion injury on her right calf. Seven 4-0 Ethilon sutures were used to reapproximate the avulsion flap. The patient was placed on cephalexin and Augmentin orally. The sutures, which were placed in the Emergency Department, [facility] [place] Since that time, the traumatic flap has largely necrosed due to ischemia. An open wound persists at the site, which appears to be full-thickness in nature. It extends through all layers of the dermis and into the subcutaneous tissues. Wound margins are well beveled. There is a small amount of slough and bioburden. Union healthy granulation tissue is also noted. Dimensions [...] Date Recorded By Document 03/09/25 12:55 KW [id number] 03/09/25 12:57 KW Document 03/23/25 13:03 BMF [id number] 03/23/25 13:13 BM Document 03/30/25 13:13 ML [id number] 03/30/25 13:22 ML 03/09/25 03/23/25 03/30/25 12:55 13:03 13:13 - Today's Visit Information Type of service Follow-up Visit Follow-up Visit Follow-up Visit (Physician/PROP DRAWER (Physician/PROP DRAWER (Physician/PROP DRAWER ) ) ) Arrival Mode Ambulatory,Cane Ambulatory [...] Date Recorded By Document 03/09/25 12:55 KW [id number] 03/09/25 12:57 KW Document 03/23/25 13:03 BMF [id number] 03/23/25 13:13 BMF Document 03/30/25 13:13 ML [id number] 03/30/25 13:22 ML 03/09/25 03/23/25 03/30/25 12:55 [...] Date Recorded By Document 03/09/25 13:03 DS [id number] 03/09/25 13:07 DS Document 03/23/25 13:26 DS [id number] 03/23/25 13:29 DS Document 03/30/25 13:34 DS [id number] 03/30/25 13:38 DS 03/09/25 03/23/25 03/30/25 13:03 [...] Date Recorded By Document 03/09/25 13:16 BM [id number] 03/09/25 13:17 BM Document 03/23/25 13:35 KW [id number] 03/23/25 13:35 KW Document 03/30/25 13:46 ML [id number] 03/30/25 13:48 ML 03/09/25 03/23/25 03/30/25 13:16 [...] Care Provided Yes Charges/Coding Procedures Integumentary 111xxx-113xx: 79288 Esha subq tissue 20 sq cm/< Assessment/Plan [...] Age-related osteoporosis without current pathological fracture (12) Odbw-lfql-gislrlofxuzgpoa: 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 The injury occurred when thepatient's dog traumatized her leg with its nails. Due to management at the [facility], the wound on the left calf has completely healed and epithelialized. However, the patient has now sustained a wound on her right calf as the result of a similar injury caused by her dog. She was seen and evaluated in the [facility] Emergency Department on March 13, 2025, at which time she was found to have a triangular-shaped laceration/avulsion injury on her right calf. Seven 4-0 Ethilon sutures were used to reapproximate the avulsion flap. The patient was placed on cephalexin and Augmentin orally. The sutures, which were placed in the Emergency Department, were removed on March 22, 2025, at the [facility] in [place]. The avulsion flap has not survived due [...] Cosigner Signature (if applicable): CC: ~ Signed [facility] Work Phone: 1(498) 625-530607-24-2025 History and physical note [facility] [address] [place] [address] H&P Exam - Wound Care 04/01/25 1135 MR#: [id number] Acct: [id number] Name: GERALDINE HAIRSTON Rep #:[id number] : [...] of her injury, she presented to the [facility] Emergency Department, where she was found to [...] her age, though has a history of pnlv-jpjn-kufhrefervykwkl, GERD, hypertension, hypothyroidism, and osteoporosis. She denies a history of diabetes mellitus, myocardial infarction,cerebrovascular accident, renaldisease, and pulmonary disease. Her BMI is 19.5. She is . [facility] Medical History Non-pressure chronic ulcer of [...] 600 mg PO BID Check with loretta [facility] 12/07/15 09/29/16 21:00 History doctor nifedipine 60 [...] 9 mg PO DAILY Check with l[facility]ta [facility] 09/30/16 Unknown History capsule,delayed,extended release doctor (Entocort [...] She was seen and evaluated in the [facility] Emergency Department on March 13, 2025, atwhich time she was found to have a triangular-shaped laceration/avulsion injury on her right calf. Seven 4-0 Ethilon sutures were used to reapproximate the avulsion flap. The patient was placed on cephalexin and Augmentin orally. The sutures, which were placed in the Emergency Department, [facility] [place] Since that time, the traumatic flap has larg johnny necrosed due to ischemia. An open wound persists at the site, which appears to be full-thickness in nature. It extends through all layers of the dermis and into the subcutaneous tissues. Wound margins are well beveled. There is a small amount of slough and bioburden. Union healthy granulation tissue is also noted. Dimensions [...] Date Recorded By Document 03/09/25 12:55 KW [id number] 03/09/25 12:57 KW Document 03/23/25 13:03 BMF [id number] 03/23/25 13:13 BMF Document 03/30/25 13:13 ML [id number] 03/30/25 13:22 ML 03/09/25 03/23/25 03/30/25 12:55 13:03 13:13 - Today's Visit Information Type of service Follow-up Visit Follow-up Visit Follow-up Visit (Physician/PROP DRAWER (Physician/PROP DRAWER (Physician/PROP DRAWER ) ) ) Arrival Mode Ambulatory,Cane Ambulatory [...] Date Recorded By Document 03/09/25 12:55 KW [id number] 03/09/25 12:57 KW Document 03/23/25 13:03 BMF [id number] 03/23/25 13:13 BMF Document 03/30/25 13:13 ML [id number] 03/30/25 13:22 ML 03/09/25 03/23/25 03/30/25 12:55 [...] Tissue Type Adherent Slough Adherent Slough -Texture (Mayiln-wound Skin Appearance) Assessed, Assessed Scarring -Moisture (Maylin-wound [...] Date Recorded By Document 03/09/25 13:03 DS [id number] 03/09/25 13:07 DS Document 03/23/25 13:26 DS [id number] 03/23/25 13:29 DS Document 03/30/25 13:34 DS [id number] 03/30/25 13:38 DS 03/09/25 03/23/25 03/30/25 13:03 [...] Date Recorded By Document 03/09/25 13:16 BM [id number] 03/09/25 13:17 BM Document 03/23/25 13:35 KW [id number] 03/23/25 13:35 KW Document 03/30/25 13:46 ML [id number] 03/30/25 13:48 ML 03/09/25 03/23/25 03/30/25 13:16 [...] Care Provided Yes Charges/Coding Procedures Integumentary 111xxx-113xx: 28725 Esha subq tissue 20 sq cm/< Assessment/Plan [...] Age-related osteoporosis without current pathological fracture (12) Avmc-hiiw-oyygldphboqcphq: 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 The injury occurred when thepatient's dog traumatized her leg with its nails. Due to management at the [facility], the wound on the left calf has completely healed and epithelialized. However, the patient has now sustained a wound on her right calf as the result of a similar injury caused by her dog. She was seen and evaluated in the [facility] Emergency Department on March 13, 2025, at which time she was found to have a triangular-shaped laceration/avulsion injury on her right calf. Seven 4-0 Ethilon sutures were used to reapproximate the avulsion flap. The patient was placed on cephalexin and Augmentin orally. The sutures, which were placed in the Emergency Department, were removed on March 22, 2025, at the [facility] in [place]. The avulsion flap has not survived due [...] Cosigner Signature (if applicable): CC: ~ Signed [facility]07-19-2025 History and physical note Author Cedric Gibbons [facility] Note Date/Time March 27, 2025 5:46 pm [facility] [address] [place] [address] H&P Exam - Wound Care 03/27/25 1730 MR#: [id number] Acct: [id number] Name: GERALDINE HAIRSTON Elin Rep #:[id number] [...] of her injury, she presented to the [facility] Emergency Department, where she was found to [...] her age, though has a history of iozw-alac-vdsxazttskopqwu, GERD, hypertension, hypothyroidism, and osteoporosis. She denies a history of diabetes mellitus, myocardial infarction,cerebrovascular accident, renal disease, and pulmonary disease. Her BMI is 19.5. She is . [facility] Medical History Non-pressure chronic ulcer of [...] 600 mg PO BID Check with [facility] 12/07/15 09/29/16 21:00 History doctor nifedipine 60 [...] 9 mg PO DAILY Check with [facility] 09/30/16 Unknown History capsule,delayed,extended release doctor (Entocort [...] She was seen and evaluated in the [facility] Emergency Department on March 13, 2025, at which time she was found to have a triangular-shaped laceration/avulsion injury on her right calf. Seven 4-0 Ethilon sutures were used to reapproximate the avulsion flap. The patient was placed on cephalexin and Augmentin orally. The sutures which were placed in the Emergency Departmentwere removed yesterday, March 22, 2025, at the [facility] in [place]. As of this visit, the wound appears [...] Recorded Date Recorded By Document 03/09/25 12:55 [id number] 03/09/25 12:57 Document 03/23/25 13:03 [facility] [id number] 03/23/25 13:13 [facility] 03/09/25 03/23/25 12:55 13:03 - Today's Visit Information Type of service Follow-up Visit Follow-up Visit (Physician/PROP DRAWER (Physician/PROP DRAWER ) ) Arrival Mode Ambulatory,Cane Ambulatory Transfer [...] Recorded Date Recorded By Document 03/09/25 12:55 [id number] 03/09/25 12:57 Document 03/23/25 13:03 [facility] [id number] 03/23/25 13:13 [facility] 03/09/25 03/23/25 12:55 13:03 Wound Center [...] Date Recorded By Document 03/09/25 13:03 DS [id number] 03/09/25 13:07 DS Document 03/23/25 13:26 DS [id number] 03/23/25 13:29 DS 03/09/25 03/23/25 13:03 13:26 [...] Recorded Date Recorded By Document 03/09/25 13:16 [facility] [id number] 03/09/25 13:17 [facility] Document 03/23/25 13:35 KW [id number] 03/23/25 13:35 KW 03/09/25 03/23/25 13:16 13:35 [...] Charges/Coding Visit Charges Office Visits / Consults: 38397 OV L3 Est 20min Assessment/Plan Assessment/Plan (1) [...] Age-related osteoporosis without current pathological fracture (13) Fofe-wjur-csaiiayylpocwvw: 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 The injury occurred when thepatient's dog traumatized her leg with its nails. Due to management at the [facility], the wound on the left calf appears to be completely healed and epithelialized. However, the patient has now sustaineda wound on her right lateral calf as result of an injury caused by her dog. Shewas seen and evaluated in the [facility] Emergency Department onMarch 13, 2025, at which time she was found to have a triangular-shaped laceration/avulsion injury on her right calf. Seven 4-0 Ethilon sutures were used to reapproximate the avulsion flap. The patient was placed on cephalexin and Augmentin orally. The sutures, which were placed in the Emergency Department, were removed yesterday, March 22, 2025, at the [facility] in [place]. As of this visit, the evulsion flap [...] Cosigner Signature (if applicable): CC: ~ Signed [facility] Work Phone: 1(148) 832-137507-19-2025 History and physical note [facility] [address] [place] [address] H&P Exam - Wound Care 03/27/25 1730 MR#: [id number] Acct: [id number] Name: GERALDINE HAIRSTON Rep #:[id number] : [...] of her injury, she presented to the [facility] Emergency Department, where she was found to [...] her age, though has a history of pgsb-ilxg-rcypwvdwwjvarry, GERD, hypertension, hypothyroidism, and osteoporosis. She denies a history of diabetes mellitus, myocardial infarction,cerebrovascular accident, renaldisease, and pulmonary disease. Her BMI is 19.5. She is . [facility] Medical History Non-pressure chronic ulcer of [...] 600 mg PO BID Check with [facility] 12/07/15 09/29/16 21:00 History doctor nifedipine 60 [...] 9 mg PO DAILY Check with [facility] 09/30/16 Unknown History capsule,delayed,extended release doctor (Entocort [...] She was seen and evaluated in the [facility] Emergency Department on March 13, 2025, at which time she was found to have a triangular-shaped laceration/avulsion injury on her right calf. Seven 4-0 Ethilon sutures were used to reapproximate the avulsion flap. The patient was placed on cephalexin and Augmentin orally. The sutures which were placed in the Emergency Depar tmentwere removed yesterday, March 22, 2025, at the [facility] in [place]. As of this visit, the wound appears [...] Date Recorded By Document 03/09/25 12:55 RUSS [id number] 03/09/25 12:57 Document 03/23/25 13:03 [facility] [id number] 03/23/25 13:13 [facility] 03/09/25 03/23/25 12:55 13:03 - Today's Visit Information Type of service Follow-up Visit Follow-up Visit (Physician/PROP DRAWER (Physician/PROP DRAWER ) ) Arrival Mode Ambulatory,Cane Ambulatory Transfer [...] Recorded Date Recorded By Document 03/09/25 12:55 [id number] 03/09/25 12:57 Document 03/23/25 13:03 [facility] [id number] 03/23/25 13:13 [facility] 03/09/25 03/23/25 12:55 13:03 Wound Center [...] Date Recorded By Document 03/09/25 13:03 DS [id number] 03/09/25 13:07 DS Document 03/23/25 13:26 DS [id number] 03/23/25 13:29 DS 03/09/25 03/23/25 13:03 13:26 [...] Recorded Date Recorded By Document 03/09/25 13:16 [facility] [id number] 03/09/25 13:17 [facility] Document 03/23/25 13:35 [id number] 03/23/25 13:35 KW 03/09/25 03/23/25 13:16 13:35 [...] Charges/Coding Visit Charges Office Visits / Consults: 81494 OV L3 Est 20min Assessment/Plan Assessment/Plan (1) [...] Age-related osteoporosis without current pathological fracture (13) Cjhn-jkps-nnlbbpeegeprdjg: 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 The injury occurred when thepatient's dog traumatized her leg with its nails. Due to management at the [facility], the wound on the left calf appears to be completely healed and epithelialized. However, the patient has now sustaineda wound on her right lateral calf as result of an injury caused by her dog. [facility] on[facility], [facility], at which time she was found to havea triangular-shaped laceration/avulsion injury on her right calf. Seven 4-0 Ethilon sutures were use d to reapproximate the avulsion flap. The patient was placed on cephalexin and Augmentin orally. The sutures, which were placed in the Emergency Department, were removed yesterday, March 22, 2025, at the [facility] in [place]. As of this visit, the evulsion flap [...] a supplement. Total time: 26 minutes 03/27/25 6276 Cosigner Signature (if applicable): CC: ~ Signed [facility]07-14-2025 Instructions* Patient Instructions* Nguyễn Srtinger APRN.CNS - 03/22/2025 10:10 AM EDT Gently [...] at your next visit. [facility] NoteHNO ID: [id number] Author: NGUYỄN STRINGER APRN.CNS Service: ? Author Type: Nurse Specialist Type: Progress Notes Filed: 03/22/2025 10:28 Note Text: Subjective Patient ID: Geraldine is a 74 year old female who presents for ER F/U. HPI Presents for an ER follow-up visit. She was seen at [facility] on March 13 and March 18, 2025. She was seen in ER on March 13, 2025 for laceration attributed to her dog. Sutures were placed. Noted to be up-to-date on Tdap. She was seen at [facility] in March 18 after sustaining a fall [...] of lower extremity, unspecified laterality, subsequent encounter (S81.918D) 2. Visit for suture removal (Z48.02) - [...] management Medical Decision Making [facility]: [facility] of Present illness Narrative* Nguyễn Stringer APRN.PEDIATRICIAN ACTIVE PRACTICE - 03/22/2025 9:34 AM EDT Subjective Patient ID: Geraldine is a 74 year old female who presents for ER F/U. HPI Presents for an ER follow-up visit. She was seen at [facility] on March 13 and March 18, 2025. She was seen in ER on March 13, 2025 for laceration attributed to her dog. Sutures were placed. Noted to be up-to-date on Tdap. She was seen at [facility] in March 18 after sustaining a fall [...] of lower extremity, unspecified laterality, subsequent encounter (U57.115R) 2. Visit for suture removal (Z48.02) - [...] Level: 4 - Moderate [facility] Discharge summary [facility] Medical Records Department [address] [place] [address] Emergency Department Summary 03/18/25 MR#: [id number] Acct: [id number] Name: GERALDINE HAIRSTON Elin Rep #:[id number] [...] management. Patient denies any blood thinning medications. [facility] Medical History Non-pressure chronic ulcer of [...] following commands and that she was at [facility] year is 2024 Skin: Warm, dry, intact [...] otherwise she is to rotate Tylenol andibuprofen vlkfyl-ake-hzrmt she also began prescription for cyclobenzaprine. Allquestion concerns answered she was discharged home in stable condition peer Radiography Diagnostic Testing: Clinical Impression(s) from Imaging Studies Pelvis X-Ray 03/18/25 10:03 IMPRESSION: No acute fracture is seen. Reading Location: [facility]-IR-[address] 03/18/25 10:10 IMPRESSION: LUMBAR DEGENERATIVE DISC AND FACET DISEASE. Nondisplaced compression fracture along the anterior superior endplate of the Y2saghhvevn. Reading Location: [facility]-IR-1 Femur X-Ray 03/18/25 10:20 IMPRESSION: NO ACUTE FRACTURE OR DISLOCATION. Reading Location: [facility]--1 Discharge Plan Triage Chief Complaint: Lower Extremity [...] pain you should rotate Tylenol and ibuprofen vgbguc-vxd-bgebr when you do this you can take something every 3 hours withmax dose of Tylenol in 24 hours 3200 mg. You need to follow-up with Dr. Brito. Your CT didshow a compression fracture of your L4 vertebrae. Return with worsening symptoms or other concerns Print Language: Brazilian Disposition Disposition: Home, Self Care What to do if you have Problems For any increased pain, shortness of breath, bleeding, nausea or vomiting, chestpain, or any unexpected problems, contact your Primary Care Provider. Call [facility] ([phone]) or report tothe closest Emergency Room. Call 911 if necessary. 03/18/25 1248 Cosigner Signature (if applicable): CC: Dr. Chance Kolb MD ~ Signed [facility]07-10-2025 Radiology Diagnostic study note [facility] Imaging Services [address] [place], [place] [id number] Femur Min 2 Views MR#: [id number] Acct: [id number] Name: VARUNGERALDINE IRELAND Elin Rep #: [id number] : 1950 F 74 From: Jaycob Petty MD PCP: Dr. Chance Kolb MD Status: RE G ER Study:Femur Min 2 Views Date of Exam: Exam# [id number] Ordering Dr: Jenny Knapp DO PROCEDURE: FEMUR MIN 2 VIEWS 03/18/2025 REASON FOR EXAM: FALL TECHNIQUE: FEMUR MIN 2 VIEWS COMPARISON: None FINDINGS: Bones: No fracture or dislocation. Joints: Moderate degree of joint space narrowing of the left hip joint. No fracture or dislocation. Soft tissues: Soft tissues are unremarkable. Other: RAD/Femur Min 2 Views IMPRESSION: NO ACUTE FRACTURE OR DISLOCATION. Reading Location: [place] [address] CC: Dr. Chance Kolb MD; Dr. Will Knapp DO ~ Band Saw Operator: Signed [facility]07-10-2025 Radiology Diagnostic study note [facility] Imaging Services [address] [place] [address] Pelvis 1 or 2 Views MR#: [id number] Acct: [id number] Name: GERALDINE HAIRSTON Rep #: [id number] : 1950 F 74 From: Jaycob Petty MD PCP: Dr. Chance Kolb MD Status: RE G ER Study:Pelvis 1 or 2 Views Date of Exam: 03/18/25 Exam# [id number] Ordering Dr: Jenny Knapp DO PROCEDURE: PELVIS [...] No acute fracture is seen. Reading Location: [place] [address] CC: Dr. Chance Kolb MD; Dr. Will Knapp DO ~ Band Saw Operator: Signed [facility]07-10-2025 Radiology Diagnostic study note [facility] Imaging Services [address] [place], [place] [id number] Spine Lumbar without Contrast MR#: [id number] Acct: [id number] Name: GERALDINE HAIRSTON Rep #: [id number] : 1950 F 74 From: Jaycob Petty MD PCP: Dr. Chance Kolb MD Status: RE G ER Study:Spine Lumbar without Contrast Date of E xam: 03/18/25 Exam# [id number] Ordering Dr: Jenny Knapp DO PROCEDURE: SPINE [...] along the anterior superior endplate of the Q0rixibywus. Reading Location: [facility]-IR-1 CC: Dr. Chance Kolb MD; Dr. Will Knapp DO ~ Band Saw Operator: Signed [facility]07-05-2025 Discharge summary [facility] Medical Records Department [address] [place] [address] Emergency Department Summary 03/13/25 MR#: [id number] Acct: [id number] Name: GERALDINE HAIRSTON Rep #:[id number] : [...] last which was approximately 2 months ago. [facility] Medical History Non-pressure chronic ulcer of [...] Patient follow commands that she was at [facility] years 2024 Skin: Warm, dry, patient has [...] Return with any other concerns Print Language: Brazilian Disposition Disposition: Home, Self Care What to do if you have Problems For any increased pain, shortness of breath, bleeding, nausea or vomiting, chestpain, or any unexpected problems, contact your Primary Care Provider. Call [facility] ([phone]) or report tothe closest Emergency Room. Call 911 if necessary. 03/13/252103 Cosigner Signature (if applicable): CC: Dr. Chance Kolb MD ~ Signed [facility]07-05-2025 Discharge summary Author Will Knapp [facility] Note Date/Time March 13, 2025 9:04p [facility] Medical Records Department [address] [place] [address] Emergency Department Summary 03/13/25 MR#: [id number] Acct: [id number] Name: GERALDINE HAIRSTON Rep #:[id number] : [...] last which was approximately 2 months ago. [facility] Medical History Non-pressure chronic ulcer of [...] capsule 600 mg PO BID Check with [facility] 12/07/15 09/29/16 21:00 History doctor nifedipine 60 [...] mg 9 mg PO DAILY Check with [facility] 09/30/16 Unknown History capsule,delayed,extended release doctor (Entocorjenny [...] Patient follow commands that she was at [facility] years 2024 Skin: Warm, dry, patient has [...] Return with any other concerns Print Language: Brazilian Disposition Disposition: Home, Self Care What to do if you have Problems For any increased pain, shortness of breath, bleeding, nausea or vomiting, chestpain, or any unexpected problems, contact your Primary Care Provider. Call [facility] ([phone]) or report to the closest Emergency Room. Call 911 if necessary. 03/13/252103 <Electronically signed by Will Knapp DO> Cosigner Signature (if applicable): CC: Dr. Chance Kolb MD ~ Signed [facility] Work Phone: 1(213) 979-598407-05-2025 Hospital Discharge instructionsAdditional Instructions Have your sutures removed in approximately 7 to 10 days. Watch out for signs infection such as surrounding redness or purulent drainage if this is to occur come back to the emergency department or call your primary care doctor. Do not soak your sutures do not pick at them. [facility] Work Phone: [phone]) 259-919307-03-2025 History and physical note Author Cedric Gibbons [facility] Note Date/Time March 11, 2025 1:23p m [facility] [address] [place] [address] H&P Exam - Wound Care 03/11/25 1318 MR#: [id number] Acct: [id number] Name: GERALDINE HAIRSTON Rep #:[id number] : [...] of her injury, she presented to the [facility] Emergency Department, where she was found to [...] her age, though has a history of jmxc-mvfz-rvcohjhtyzszggv, GERD, hypertension, hypothyroidism, and osteoporosis. She denies a history of diabetes mellitus, myocardial infarction,cerebrovascular accident, renal disease, and pulmonary disease. Her BMI is 19.5. She is . [facility] Medical History Non-pressure chronic ulcer of [...] 600 mg PO BID Check with [facility] 12/07/15 09/29/16 21:00 History doctor nifedipine 60 [...] 9 mg PO DAILY Check with [facility] 09/30/16 Unknown History capsule,delayed,extended release doctor (Entocort [...] Date Recorded By Document 03/09/25 12:55 RUSS [id number] 03/09/25 12:57 RUSS 03/09/25 12:55 - Today's Visit Information Type of service Follow-up Visit (Physician/PROP DRAWER ) Arrival Mode Ambulatory,Cane Patient Identification Verified [...] Date Recorded By Document 03/09/25 12:55 RUSS [id number] 03/09/25 12:57 RUSS 03/09/25 12:55 Wound Center [...] Date Recorded By Document 03/09/25 13:03 DS [id number] 03/09/25 13:07 DS 03/09/25 13:03 Wound Center [...] Recorded Date Recorded By Document 03/09/25 13:16 [facility] [id number] 03/09/25 13:17 [facility] 03/09/25 13:16 Wound Care Center Nurse [...] Transportation Private Auto Charges/Coding Procedures Integumentary 111xxx-113xx: 31634 Esha subq tissue 20 sq cm/< Assessment/Plan [...] Age-related osteoporosis without current pathological fracture (12) Vbul-uudx-vuzwbjgtymzkwcd: 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 The injury occurred when thepatient's dog traumatized her leg with its nails. Immediately following her injury, the patient presented to the [facility] Emergency Department, where the avulsion flap was [...] Cosigner Signature (if applicable): CC: ~ Signed [facility] Work Phone: [phone]) 426-758807-03-2025 History and physical note [facility] [address] [place] [address] H&P Exam - Wound Care 03/11/25 1318 MR#: [id number] Acct: [id number] Name: GERALDINE HAIRSTON Rep #:[id number] : [...] of her injury, she presented to the [facility] Emergency Department, where she was found to [...] her age, though has a history of rrrb-mzzm-lrgqogwflnjxnve, GERD, hypertension, hypothyroidism, and osteoporosis. She denies a history of diabetes mellitus, myocardial infarction,cerebrovascular accident, renaldisease, and pulmonary disease. Her BMI is 19.5. She is . [facility] Medical History Non-pressure chronic ulcer of [...] Date Recorded By Document 03/09/25 12:55 RUSS [id number] 03/09/25 12:57 KW 03/09/25 12:55 - Today's Visit Information Type of service Follow-up Visit (Physician/PROP DRAWER ) Arrival Mode Ambulatory,Cane Patient Identification Verified [...] Date Recorded By Document 03/09/25 12:55 RUSS [id number] 03/09/25 12:57 RUSS 03/09/25 12:55 Wound Center [...] Date Recorded By Document 03/09/25 13:03 PHILIPPE [id number] 03/09/25 13:07 DS 03/09/25 13:03 Wound Center [...] Recorded Date Recorded By Document 03/09/25 13:16 [facility] [id number] 03/09/25 13:17 [facility] 03/09/25 13:16 Wound Care Center Nurse [...] Transportation Private Auto Charges/Coding Procedures Integumentary 111xxx-113xx: 06989 Esha subq tissue 20 sq cm/< Assessment/Plan [...] Age-related osteoporosis without current pathological fracture (12) Vfpp-nprk-txljnotqfnlgcll: 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 The injury occurred when thepatient's dog traumatized her leg with its nails. Immediately following her injury, the patient presented to the [facility] Emergency Department, where the avulsion flap was [...] Cosigner Signature (if applicable): CC: ~ Signed [facility]06-25-2025 History and physical note Author Cedric Gibbons [facility] Note Date/Time March 03, 2025 11:0 6am [facility] [address] [facility] [place] [address] H&P Exam - Wound Care 03/03/25 1057 MR#: [id number] Acct: [id number] Name: VARUNKIMBERLY IRELANDMAMI Worthington Rep #:[id number] [...] of her injury, she presented to the [facility] Emergency Department, where she was found to [...] her age, though has a history of xyqn-rwso-wqnfpvsbcdqsrrv, GERD, hypertension, hypothyroidism, and osteoporosis. She denies a history of diabetes mellitus, myocardial infarction,cerebrovascular accident, renal disease, and pulmonary disease. Her BMI is 19.5. She is . [facility] Medical History Non-pressure chronic ulcer of [...] 600 mg PO BID Check with [facility] 12/07/15 09/29/16 21:00 History doctor nifedipine 60 [...] 9 mg PO DAILY Check with [facility] 09/30/16 Unknown History capsule,delayed,extended release doctor (Entocort [...] Date Recorded By Document 02/09/25 13:13 KW [id number] 02/09/25 13:18 KW Document 02/16/25 13:06 KW [id number] 02/16/25 13:16 KW Document 02/23/25 13:26 ML [id number] 02/23/25 13:36 ML Document 03/02/25 13:34 KW [id number] 03/02/25 13:40 KW 02/09/25 02/16/25 02/23/25 13:13 13:06 13:26 WC - Today's Visit Information Type of service Follow-up Visit Follow-up Visit Follow-up Visit (Physician/PROP DRAWER (Physician/PROP DRAWER (Physician/PROP DRAWER ) ) ) Arrival Mode Ambulatory,Cane Ambulatory,Cane [...] Visit Information Type of service Follow-up Visit (Physician/PROP DRAWER ) Arrival Mode Ambulatory,Cane Patient Identification Verified [...] Date Recorded By Document 02/09/25 13:13 KW [id number] 02/09/25 13:18 KW Document 02/16/25 13:06 KW [id number] 02/16/25 13:16 KW Document 02/23/25 13:26 ML [id number] 02/23/25 13:36 ML Document 03/02/25 13:34 KW [id number] 03/02/25 13:40 KW 02/09/25 02/16/25 02/23/25 13:13 [...] Amt Medium (34-66%) Large (67-100%) -Granulation Quality Union Union -Slough/Fibrin Yes -Necrosis Amt Medium (34-66%) Medium [...] Margin -Granulation Amt Large (67-100%) -Granulation Quality Union -Slough/Fibrin -Necrosis Amt Small (1-33%) -Necrotic Tissue [...] Date Recorded By Document 02/09/25 13:24 DS [id number] 02/09/25 13:28 DS Document 02/16/25 13:33 DS [id number] 02/16/25 13:36 DS Document 02/23/25 13:47 DS [id number] 02/23/25 13:50 DS Document 03/02/25 14:09 DS [id number] 03/02/25 14:11 DS 02/09/25 02/16/25 02/23/25 13:24 [...] Date Recorded By Document 02/09/25 13:32 KW [id number] 02/09/25 13:33 KW Document 02/16/25 13:46 KW [id number] 02/16/25 13:46 KW Document 02/23/25 13:57 ML [id number] 02/23/25 13:58 ML Document 03/02/25 14:25 BMF [id number] 03/02/25 14:26 BMF 02/09/25 02/16/25 02/23/25 13:32 [...] of Care Provided Charges/Coding Procedures Integumentary 111xxx-113xx: 06220 Esha subq tissue 20 sq cm/< Assessment/Plan [...] Age-related osteoporosis without current pathological fracture (12) Ljqi-ntgx-dffqymozvwiinif: 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 The injury occurred when thepatient's dog traumatized her leg with its nails. Immediately following her injury, the patient presented to the [facility] Emergency Department, where the avulsion flap was [...] Cosigner Signature (if applicable): CC: ~ Signed [facility] Work Phone: 1(646) 451-100706-25-2025 History and physical note [facility] [address] [place] [address] H&P Exam - Wound Care 03/03/25 1057 MR#: [id number] Acct: [id number] Name: GERALDINE HAIRSTON Rep #:[id number] : [...] of her injury, she presented to the [facility] Emergency Department, where she was found to [...] her age, though has a history of etsq-xymg-bojlfffdzxoqyuk, GERD, hypertension, hypothyroidism, and osteoporosis. She denies a history of diabetes mellitus, myocardial infarction,cerebrovascular accident, renaldisease, and pulmonary disease. Her BMI is 19.5. She is . [facility] Medical History Non-pressure chronic ulcer of [...] Date Recorded By Document 02/09/25 13:13 KW [id number] 02/09/25 13:18 KW Document 02/16/25 13:06 KW [id number] 02/16/25 13:16 KW Document 02/23/25 13:26 ML [id number] 02/23/25 13:36 ML Document 03/02/25 13:34 KW [id number] 03/02/25 13:40 KW 02/09/25 02/16/25 02/23/25 13:13 13:06 13:26 - Today's Visit Information Type of service Follow-up Visit Follow-up Visit Follow-up Visit (Physician/PROP DRAWER (Physician/PROP DRAWER (Physician/PROP DRAWER ) ) ) Arrival Mode Ambulatory,Cane Ambulatory,Cane [...] Visit Information Type of service Follow-up Visit (Physician/PROP DRAWER ) Arrival Mode Ambulatory,Cane Patient Identification Verified [...] Date Recorded By Document 02/09/25 13:13 KW [id number] 02/09/25 13:18 KW Document 02/16/25 13:06 KW [id number] 02/16/25 13:16 KW Document 02/23/25 13:26 ML [id number] 02/23/25 13:36 ML Document 03/02/25 13:34 KW [id number] 03/02/25 13:40 KW 02/09/25 02/16/25 02/23/25 13:13 [...] Amt Medium (34-66%) Large (67-100%) -Granulation Quality Union Union -Slough/Fibrin Yes -Necrosis Amt Medium (34-66%) Medium [...] Margin -Granulation Amt Large (67-100%) -Granulation Quality Union -Slough/Fibrin -Necrosis Amt Small (1-33%) -Necrotic Tissue [...] Date Recorded By Document 02/09/25 13:24 DS [id number] 02/09/25 13:28 DS Document 02/16/25 13:33 DS [id number] 02/16/25 13:36 DS Document 02/23/25 13:47 DS [id number] 02/23/25 13:50 DS Document 03/02/25 14:09 DS [id number] 03/02/25 14:11 DS 02/09/25 02/16/25 02/23/25 13:24 [...] Date Recorded By Document 02/09/25 13:32 KW [id number] 02/09/25 13:33 KW Document 02/16/25 13:46 KW [id number] 02/16/25 13:46 KW Document 02/23/25 13:57 ML [id number] 02/23/25 13:58 ML Document 03/02/25 14:25 [facility] [id number] 03/02/25 14:26 [facility] 02/09/25 02/16/25 02/23/25 13:32 13:46 13:57 [...] of Care Provided Charges/Coding Procedures Integumentary 111xxx-113xx: 31869 Esha subq tissue 20 sq cm/< Assessment/Plan [...] Age-related osteoporosis without current pathological fracture (12) Cqiv-ictq-ddbjcbhvzwidhca: 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 The injury occurred when thepatient's dog traumatized her leg with its nails. Immediately following her injury, the patient presented to the [facility] Emergency Department, where the avulsion flap was [...] Cosigner Signature (if applicable): CC: ~ Signed [facility]06-24-2025 Evaluation note* Diagnosis Onset Date Resolution Status Admit Date Avulsion injury acute February 1:30pm History of ankle surgery acute March 02, 2025 1:30pm History of cataract surgery acute March 02, 2025 1:30pm History of surgery on wrist acute March 02, 2025 1:30pm Uvjn-eogs-omrgoxlruqtjirw acute March 02, 2025 1:30pm S/P ORIF [...] on wrist acute March 30, 2025 1:15pm Ueaa-bysy-vztqvyddrysthhd acute March 30, 2025 1:15pm S/P ORIF [...] on wrist acute May 04, 2025 1:00pm Kkjr-bafd-ircdqenqasjdsnx acute May 04, 2025 1:00pm S/P ORIF [...] on wrist acute May 25, 2025 12:45pm Dvrh-ytgm-iyjccbrovynzbsw acute May 25, 2025 12:45pm S/P ORIF [...] internal fixation) fracture chronic May emb2024 12:45pm [facility] Work Phone: 1(297) 927-700106-18-2025 History and physical note Author Cedric Gibbons [facility] Note Date/Time February 24, 2025 11:2 3am [facility] [address] [place] [address] H&P Exam - Wound Care 02/24/25 1110 MR#: [id number] Acct: [id number] Name: GERALDINE HAIRSTON Rep #:[id number] : [...] of her injury, she presented to the [facility] Emergency Department, where she was found to [...] her age, though has a history of qtyg-vlrw-yfrbfziyrtaxjvy, GERD, hypertension, hypothyroidism, and osteoporosis. She denies a history of diabetes mellitus, myocardial infarction,cerebrovascular accident, renal disease, and pulmonary disease. Her BMI is 19.5. She is . [facility] Medical History Non-pressure chronic ulcer of [...] Start: 02/09/25 13:13 Freq: Status: Active Protocol: NATHLAIE Activity Type Activity Date Activity User E-sign Co-sign Detail Recorded Client Recorded Date Recorded By Document 02/09/25 13:13 RUSS [id number] 02/09/25 13:18 KW Document 02/16/25 13:06 RUSS [id number] 02/16/25 13:16 KW Document 02/23/25 13:26 ML [id number] 02/23/25 13:36 ML 02/09/25 02/16/25 02/23/25 13:13 13:06 13:26 - Today's Visit Information Type of service Follow-up Visit Follow-up Visit Follow-up Visit (Physician/PROP DRAWER (Physician/PROP DRAWER (Physician/PROP DRAWER ) ) ) Arrival Mode Ambulatory,Cane Ambulatory,Cane [...] Recorded Date Recorded By Document 02/09/25 13:13 [id number] 02/09/25 13:18 KW Document 02/16/25 13:06 KW [id number] 02/16/25 13:16 KW Document 02/23/25 13:26 ML [id number] 02/23/25 13:36 ML 02/09/25 02/16/25 02/23/25 13:13 [...] Amt Medium (34-66%) Large (67-100%) -Granulation Quality Union Union -Slough/Fibrin Yes -Necrosis Amt Medium (34-66%) Medium (34-66%) None Present (0 %) -Necrotic Tissue Type Adherent Slough Adherent Slough Adherent Slough -Texture (Amylin-wound Skin Appearance) Assessed Assessed Assessed -Moisture (Maylin-wound [...] Date Recorded By Document 02/09/25 13:24 DS [id number] 02/09/25 13:28 DS Document 02/16/25 13:33 DS [id number] 02/16/25 13:36 DS Document 02/23/25 13:47 DS [id number] 02/23/25 13:50 DS 02/09/25 02/16/2525 13:24 13:33 [...] Date Recorded By Document 02/09/25 13:32 KW [id number] 02/09/25 13:33 KW Document 02/16/25 13:46 KW [id number] 02/16/25 13:46 KW Document 02/23/25 13:57 ML [id number] 02/23/25 13:58 ML 02/09/25 02/16/25 02/23/25 13:32 [...] Provided Yes Yes Charges/Coding Procedures Integumentary 111xxx-113xx: 17390 Esha subq tissue 20 sq cm/< Assessment/Plan [...] Age-related osteoporosis without current pathological fracture (12) Fjlg-lnfk-eomuvbjqynjxvpc: 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 The injury occurred when thepatient's dog traumatized her leg with its nails. Immediately following her injury, the patient presented to the [facility] Emergency Department, where the avulsion flap was [...] Cosigner Signature (if applicable): CC: ~ Signed [facility] Work Phone: 1(819) 876-372006-18-2025 History and physical note [facility] [address] [place] [address] H&P Exam - Wound Care 02/24/25 1110 MR#: [id number] Acct: [id number] Name: GERALDINE HAIRSTON Rep #:[id number] : [...] of her injury, she presented to the [facility] Emergency Department, where she was found to [...] her age, though has a history of ahee-qnnq-mzykmnujpmbkdkb, GERD, hypertension, hypothyroidism, and osteoporosis. She denies a history of diabetes mellitus, myocardial infarction,cerebrovascular accident, renaldisease, and pulmonary disease. Her BMI is 19.5. She is . [facility] Medical History Non-pressure chronic ulcer of [...] Date Recorded By Document 02/09/25 13:13 KW [id number] 02/09/25 13:18 KW Document 02/16/25 13:06 KW [id number] 02/16/25 13:16 KW Document 02/23/25 13:26 ML [id number] 02/23/25 13:36 ML 02/09/25 02/16/25 02/23/25 13:13 13:06 13:26 - Today's Visit Information Type of service Follow-up Visit Follow-up Visit Follow-up Visit (Physician/PROP DRAWER (Physician/PROP DRAWER (Physician/PROP DRAWER ) ) ) Arrival Mode Ambulatory,Cane Ambulatory,Cane [...] Date Recorded By Document 02/09/25 13:13 KW [id number] 02/09/25 13:18 KW Document 02/16/25 13:06 KW [id number] 02/16/25 13:16 KW Document 02/23/25 13:26 ML [id number] 02/23/25 13:36 ML 02/09/25 02/16/25 02/23/25 13:13 [...] Amt Medium (34-66%) Large (67-100%) -Granulation Quality Union Union -Slough/Fibrin Yes -Necrosis Amt Medium (34-66%) Medium [...] Recorded Date Recorded By Document 02/09/25 13:24 [id number] 02/09/25 13:28 DS Document 02/16/25 13:33 DS [id number] 02/16/25 13:36 DS Document 02/23/25 13:47 [id number] 02/23/25 13:50 DS 02/09/25 02/16/25 02/23/25 13:24 [...] Date Recorded By Document 02/09/25 13:32 KW [id number] 02/09/25 13:33 KW Document 02/16/25 13:46 KW [id number] 02/16/25 13:46 KW Document 02/23/25 13:57 ML [id number] 02/23/25 13:58 ML 02/09/25 02/16/25 02/23/25 13:32 [...] Provided Yes Yes Charges/Coding Procedures Integumentary 111xxx-113xx: 19355 Esha subq tissue 20 sq cm/< Assessment/Plan [...] Age-related osteoporosis without current pathological fracture (12) Ksxb-ttoz-hypknwcddidseeh: 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 The injury occurred when thepatient's dog traumatized her leg with its nails. Immediately following her injury, the patient presented to the [facility] Emergency Department, where the avulsion flap was [...] Cosigner Signature (if applicable): CC: ~ Signed [facility]06-11-2025 History and physical note Author Cedric Gibbons [facility] Note Date/Time February 17, 2025 11:3 5am [facility] [address] [place] [address] H&P Exam - Wound Care 02/17/25 1127 MR#: [id number] Acct: [id number] Name: GERALDINE HAIRSTON Rep #:[id number] : [...] of her injury, she presented to the [facility] Emergency Department, where she was found to [...] her age, though has a history of rjsv-xntl-dfrwbpuhbovypkl, GERD, hypertension, hypothyroidism, and osteoporosis. She denies a history of diabetes mellitus, myocardial infarction,cerebrovascular accident, renal disease, and pulmonary disease. Her BMI is 19.5. She is . [facility] Medical History Non-pressure chronic ulcer of [...] Recorded Date Recorded By Document 02/09/25 13:13 [id number] 02/09/25 13:18 KW Document 02/16/25 13:06 [id number] 02/16/25 13:16 KW 02/09/25 02/16/25 13:13 13:06 - Today's Visit Information Type of service Follow-up Visit Follow-up Visit (Physician/PROP DRAWER (Physician/PROP DRAWER ) ) Arrival Mode Ambulatory,Cane Ambulatory,Cane Patient [...] Date Recorded By Document 02/09/25 13:13 KW [id number] 02/09/25 13:18 KW Document 02/16/25 13:06 [id number] 02/16/25 13:16 KW 02/09/25 02/16/25 13:13 13:06 [...] Amt Medium (34-66%) Large (67-100%) -Granulation Quality Union Union -Necrosis Amt Medium (34-66%) Medium (34-66%) -Necrotic [...] Date Recorded By Document 02/09/25 13:24 DS [id number] 02/09/25 13:28 DS Document 02/16/25 13:33 DS [id number] 02/16/25 13:36 DS 02/09/25 02/16/25 13:24 13:33 [...] Date Recorded By Document 02/09/25 13:32 KW [id number] 02/09/25 13:33 KW Document 02/16/25 13:46 KW [id number] 02/16/25 13:46 KW 02/09/25 02/16/25 13:32 13:46 [...] Provided Yes Yes Charges/Coding Procedures Integumentary 111xxx-113xx: 84061 Esha subq tissue 20 sq cm/< Assessment/Plan [...] Age-related osteoporosis without current pathological fracture (12) Suwm-rpny-zyrsemiztifagem: 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 The injury occurred when thepatient's dog traumatized her leg with its nails. Immediately following her injury, the patient presented to the [facility] Emergency Department, where the avulsion flap was [...] Cosigner Signature (if applicable): CC: ~ Signed [facility] Work Phone: 1(795) 379-666106-11-2025 History and physical note [facility] [address] [place] [address] H&P Exam - Wound Care 02/17/25 1127 MR#: [id number] Acct: [id number] Name: GERALDINE HAIRSTON Rep #:[id number] : [...] of her injury, she presented to the [facility] Emergency Department, where she was found to [...] her age, though has a history of kzwy-edld-rkyayzkcstcvdkw, GERD, hypertension, hypothyroidism, and osteoporosis. She denies a history of diabetes mellitus, myocardial infarction,cerebrovascular accident, renaldisease, and pulmonary disease. Her BMI is 19.5. She is . [facility] Medical History Non-pressure chronic ulcer of [...] Start: 02/09/25 13:13 Freq: Status: Active Protocol: DANTE[employer]thia [employer]MARYLOU Activity Type Activity Date Activity User E-sign Co-sign Detail Recorded Client Recorded Date Recorded By Document 02/09/25 13:13 [employer] [id number] 02/09/25 13:18 Document 02/16/25 13:06 [employer] [id number] 02/16/25 13:16 KW 02/09/25 02/16/25 13:13 13:06 - Today's Visit Information Type of service Follow-up Visit Follow-up Visit (Physician/PROP DRAWER (Physician/PROP DRAWER ) ) Arrival Mode Ambulatory,Cane Ambulatory,Cane Patient [...] Date Recorded By Document 02/09/25 13:13 KW [id number] 02/09/25 13:18 KW Document 02/16/25 13:06 KW [id number] 02/16/25 13:16 KW 02/09/25 02/16/25 13:13 13:06 [...] Amt Medium (34-66%) Large (67-100%) -Granulation Quality Union Union -Necrosis Amt Medium (34-66%) Medium (34-66%) -Necrotic [...] Date Recorded By Document 02/09/25 13:24 DS [id number] 02/09/25 13:28 DS Document 02/16/25 13:33 DS [id number] 02/16/25 13:36 DS 02/09/25 02/16/25 13:24 13:33 [...] Date Recorded By Document 02/09/25 13:32 KW [id number] 02/09/25 13:33 KW Document 02/16/25 13:46 KW [id number] 02/16/25 13:46 KW 02/09/25 02/16/25 13:32 13:46 [...] Provided Yes Yes Charges/Coding Procedures Integumentary 111xxx-113xx: 63258 Esha subq tissue 20 sq cm/< Assessment/Plan [...] Age-related osteoporosis without current pathological fracture (12) Tqiy-dyqw-ejhozjnguacfxmu: 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 The injury occurred when thepatient's dog traumatized her leg with its nails. Immediately following her injury, the patient presented to the [facility] Emergency Department, where the avulsion flap was [...] Cosigner Signature (if applicable): CC: ~ Signed [facility]06-04-2025 History and physical note Author Cedric Gibbons [facility] Note Date/Time February 10, 2025 10:57 am [facility] [address] [place] [address] H&P Exam - Wound Care 02/10/25 1015 MR#: [id number] Acct: [id number] Name: GERALDINE HAIRSTON Rep #:[id number] : [...] of her injury, she presented to the [facility] Emergency Department, where she was found to [...] her age, though has a history of hycm-olgw-fnsgvayiffbdkyf, GERD, hypertension, hypothyroidism, and osteoporosis. She denies a history of diabetes mellitus, myocardial infarction,cerebrovascular accident, renal disease, and pulmonary disease. Her BMI is 19.5. She is . [facility] Medical History Non-pressure chronic ulcer of [...] Recorded Date Recorded By Document 02/09/25 13:13 [id number] 02/09/25 13:18 02/09/25 13:13 - Today's Visit Information Type of service Follow-up Visit (Physician/PROP DRAWER ) Arrival Mode Ambulatory,Cane Patient Identification Verified [...] Date Recorded By Document 02/09/25 13:13 KW [id number] 02/09/25 13:18 KW 02/09/25 13:13 Wound Center Nurse 1 #1 LT MED LE -Current Size (cm) - Length 2.2 -Current Size (cm) - Width 2.5 -Current Size (cm) - Depth 0.1 -Total Square Cm 5.50 -Date of Last Picture (Recall this 02/09/25 field) -Exudate Amt Medium -Exudate Type Serosanguineous -Wound Margin Distinct, Outline Attached -Granulation Amt Medium (34-66%) -Granulation Quality Union -Necrosis Amt Medium (34-66%) -Necrotic Tissue Type [...] Date Recorded By Document 02/09/25 13:24 DS [id number] 02/09/25 13:28 DS 02/09/25 13:24 Wound Center [...] Date Recorded By Document 02/09/25 13:32 RUSS [id number] 02/09/25 13:33 KW 02/09/25 13:32 Wound Care [...] Care Provided Yes Charges/Coding Procedures Integumentary 111xxx-113xx: 37721 Esha subq tissue 20 sq cm/< Assessment/Plan [...] Age-related osteoporosis without current pathological fracture (12) Yrvx-poqp-okiezqeutevttjv: 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 The injury occurred when the patient's dog traumatized her leg with its nails. Immediately following her injury, the patient presented to the [facility] Emergency Department, where the avulsion flap was [...] Cosigner Signature (if applicable): CC: ~ Signed [facility] Work Phone: 1(470) 548-966706-04-2025 History and physical note [facility] [address] [place] [address] H&P Exam - Wound Care 02/10/25 1015 MR#: [id number] Acct: [id number] Name: GERALDINE HAIRSTON Rep #:[id number] : [...] of her injury, she presented to the [facility] Emergency Department, where she was found to [...] her age, though has a history of yvcu-ebxe-yapyrwmhekbueor, GERD, hypertension, hypothyroidism, and osteoporosis. She denies a history of diabetes mellitus, myocardial infarction,cerebrovascular accident, renaldisease, and pulmonary disease. Her BMI is 19.5. She is . [facility] Medical History Non-pressure chronic ulcer of [...] Date Recorded By Document 02/09/25 13:13 RUSS [id number] 02/09/25 13:18 KW 02/09/25 13:13 - Today's Visit Information Type of service Follow-up Visit (Physician/PROP DRAWER ) Arrival Mode Ambulatory,Cane Patient Identification Verified [...] Date Recorded By Document 02/09/25 13:13 KW [id number] 02/09/25 13:18 KW 02/09/25 13:13 Wound Center Nurse 1 #1 LT MED LE -Current Size (cm) - Length 2.2 -Current Size (cm) - Width 2.5 -Current Size (cm) - Depth 0.1 -Total Square Cm 5.50 -Date of Last Picture (Recall this 02/09/25 field) -Exudate Amt Medium -Exudate Type Serosanguineous -Wound Margin Distinct, Outline Attached -Granulation Amt Medium (34-66%) -Granulation Quality Union -Necrosis Amt Medium (34-66%) -Necrotic Tissue Type [...] Date Recorded By Document 02/09/25 13:24 DS [id number] 02/09/25 13:28 DS 02/09/25 13:24 Wound Center [...] Date Recorded By Document 02/09/25 13:32 KW [id number] 02/09/25 13:33 KW 02/09/25 13:32 Wound Care [...] Care Provided Yes Charges/Coding Procedures Integumentary 111xxx-113xx: 20374 Esha subq tissue 20 sq cm/< Assessment/Plan [...] Age-related osteoporosis without current pathological fracture (12) Uzkb-flhh-lndtaopvuyiozfu: 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 The injury occurred when the patient's dog traumatized her leg with its nails. Immediately following her injury, the patient presented to the [facility] Emergency Department, where the avulsion flap was [...] Cosigner Signature (if applicable): CC: ~ Signed [facility]05-28-2025 Telephone encounter Note* Telephone Encounter - Ann [...] advise. Thank you. Ann Marie Kelly LPN. [facility]05-28-2025 Miscellaneous Notes* Telephone Encounter - Ann Marie [...] Ann Marie Kelly LPN. [facility] History and physical note Author Cedric Gibbons [facility] Note Date/Time February 02, 2025 4:53p m [facility] [address] [place] [address] H&P Exam - Wound Care 02/02/25 1643 MR#: [id number] Acct: [id number] Name: GERALDINE HAIRSTON Rep #:[id number] : [...] of her injury, she presented to the [facility] Emergency Department, where she was found to [...] her age, though has a history of woza-badf-dwgjsnabidjvwah, GERD, hypertension, hypothyroidism, and osteoporosis. She denies a history of diabetes mellitus, myocardial infarction,cerebrovascular accident, renal disease, and pulmonary disease. Her BMI is 19.5. She is . [facility] Medical History (Updated 02/02/25 @ 16:48 [...] Date Recorded By Document 01/13/25 13:59 DL [id number] 01/13/25 14:01 DL Document 01/19/25 13:46 KW [id number] 01/19/25 13:49 KW Document 02/02/25 14:09 JF [id number] 02/02/25 14:16 JF 01/13/25 01/19/25 02/02/25 13:59 13:46 14:09 WC - Today's Visit Information Type of service Follow-up Visit Follow-up Visit Follow-up Visit (Physician/PROP DRAWER (Physician/PROP DRAWER (Physician/PROP DRAWER ) ) ) Arrival Mode Ambulatory Ambulatory,Cane [...] Date Recorded By Document 01/13/25 13:59 DL [id number] 01/13/25 14:01 DL Document 01/19/25 13:46 KW [id number] 01/19/25 13:49 KW Document 02/02/25 14:09 JF [id number] 02/02/25 14:16 JF 01/13/25 01/19/25 02/02/25 13:59 [...] Recorded Date Recorded By Document 01/13/25 14:27 [id number] 01/13/25 14:29 Document 01/19/25 14:01 JF [id number] 01/19/25 14:02 Document 02/02/25 14:25 DS [id number] 02/02/25 14:30 DS 01/13/25 01/19/25 02/02/25 14:27 [...] Recorded Date Recorded By Document 01/13/25 14:38 [facility] [id number] 01/13/25 14:38 [facility] Document 01/19/25 14:10 KW [id number] 01/19/25 14:10 KW Document 02/02/25 14:45 DS [id number] 02/02/25 14:45 DS 01/13/25 01/19/25 02/02/25 14:38 [...] Care Provided Yes Charges/Coding Procedures Integumentary 111xxx-113xx: 45442 Esha subq tissue 20 sq cm/< Assessment/Plan [...] Age-related osteoporosis without current pathological fracture (12) Mvrn-ggeq-nbmkwncvzdkcdfs: 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 The injury occurred when thepatient's dog traumatized her leg with its nails. Immediately following her injury, the patient presented to the [facility] Emergency Department, where the avulsion flap was [...] Cosigner Signature (if applicable): CC: ~ Signed [facility] Work Phone: [phone]) 156-690705-27-2025 History and physical note [facility] [address] [place] [address] H&P Exam - Wound Care 02/02/25 1643 MR#: [id number] Acct: [id number] Name: GERALDINE HAIRSTON Rep #:[id number] : [...] of her injury, she presented to the [facility] Emergency Department, where she was found to [...] her age, though has a history of rtor-ixza-xjxuwpvyfykowis, GERD, hypertension, hypothyroidism, and osteoporosis. She denies a history of diabetes mellitus, myocardial infarction,cerebrovascular accident, renaldisease, and pulmonary disease. Her BMI is 19.5. She is . [facility] Medical History (Updated 02/02/25 @ 16:48 [...] 9 mg PO DAILY Check with loretta dyeanira 09/30/16 Unknown History capsule,delayed,extended release doctor (Entocort [...] Date Recorded By Document 01/13/25 13:59 DL [id number] 01/13/25 14:01 DL Document 01/19/25 13:46 KW [id number] 01/19/25 13:49 KW Document 02/02/25 14:09 [id number] 02/02/25 14:16 01/13/25 01/19/25 02/02/25 13:59 13:46 14:09 - Today's Visit Information Type of service Follow-up Visit Follow-up Visit Follow-up Visit (Physician/PROP DRAWER (Physician/PROP DRAWER (Physician/PROP DRAWER ) ) ) Arrival Mode Ambulatory Ambulatory,Cane [...] Date Recorded By Document 01/13/25 13:59 DL [id number] 01/13/25 14:01 DL Document 01/19/25 13:46 KW [id number] 01/19/25 13:49 KW Document 02/02/25 14:09 [id number] 02/02/25 14:16 01/13/25 01/19/25 02/02/25 13:59 13:46 [...] Recorded Date Recorded By Document 01/13/25 14:27 [id number] 01/13/25 14:29 Document 01/19/25 14:01 [id number] 01/19/25 14:02 Document 02/02/25 14:25 DS [id number] 02/02/25 14:30 DS 01/13/25 01/19/25 02/02/25 14:27 [...] Recorded Date Recorded By Document 01/13/25 14:38 [facility] [id number] 01/13/25 14:38 [facility] Document 01/19/25 14:10 KW [id number] 01/19/25 14:10 KW Document 02/02/25 14:45 DS [id number] 02/02/25 14:45 DS 01/13/25 01/19/25 02/02/25 14:38 [...] Care Provided Yes Charges/Coding Procedures Integumentary 111xxx-113xx: 94302 Esha subq tissue 20 sq cm/< Assessment/Plan [...] Age-related osteoporosis without current pathological fracture (12) Byrq-civo-bqqgodyiomjrobg: 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 The injury occurred when thepatient's dog traumatized her leg with its nails. Immediately following her injury, the patient presented to the [facility] Emergency Department, where the avulsion flap was [...] nutritional intake. Total time: 25 minutes 02/02/25 8713 Cosigner Signature (if applicable): CC: ~ Signed [facility]05-27-2025 Evaluation note* Diagnosis Onset Date Resolution Status Admit Date Avulsion injury acute February 02, 2025 2:00pm History of ankle surgery acute February 02, 2025 2:00pm History of cataract surgery acute February 02, 2025 2:00pm History of surgery on wrist acute February 02, 2025 2:00pm Mxzu-hukg-umqyciwqsfuarwk acute February 02, 2025 2:00pm S/P ORIF [...] on wrist acute March 02, 2025 1:30pm Cebw-dnfa-jzwxhndchbcfrrw acute March 02, 2025 1:30pm S/P ORIF [...] on wrist acute March 30, 2025 1:15pm Kell-yuyv-hnzjsfggavhylwr acute March 30, 2025 1:15pm S/P ORIF [...] on wrist acute May 04, 2025 1:00pm Drxo-uapx-yiwuskxaxbzunow acute May 04, 2025 1:00pm S/P ORIF (open reduction internal fixation) fracture acute 2024 1:00pm Traumatic open wound of lowe r leg acute May 04 1:00pm Hypothyroidism chronic April 1:00pm Non-pressure chronic ulcer o f right calf with fat layer exposed chronic [address], 202 5 1:00pm Osteoporosis chronic May 04, 2025 1:00pm Raynaud phenomenon chronic May 04, 2025 1:00pm S/P ORIF (open reduction internal fixation) fracture chronic Augu st 2024 1:00pm [facility] Work Phone: [phone] 499-931205-23-2025 NoteHNO ID: [id number] Author: MALACHI LILLY APRN.PROP DRAWER Service: ? Author Type: Nurse Practitioner Type: [...] too hard physically. Seeing Dr. Gibbons with [facility] wound center. Geraldine also reports [...] glass of water d (more content not included)...[facility]05-21-2025 NoteHNO ID: [id number] Author: MANJU NG MA Service: ? Author Type: Anthropologist Type: Progress Notes Filed: 01/27/2025 09:24 Note [...] or unnecessary to reach patient: Left message Perfect message sent HCC related Navigation Signature: Manju Ng MA January 27, 2025 9:23 [facility]05-21-2025 NotePatient Outreach (NETNAV) GERALDINE HAIRSTON ([id number]) 1950 F Date Time Provider Department 01/27/25 [...] 07/17/2024 Encounter Status:Closed by MANJU NG on 01/27/25[facility] 01-19-2025 History and physical note Author Cedric Gibbons [facility] Note Date/Time January 19, 2025 7:13p m [facility] [address] [place] [address] H&P Exam - Wound Care 01/19/25 1900 MR#: [id number] Acct: [id number] Name: GERALDINE AHIRSTON Rep #:[id number] : 1950 74 From: [...] of her injury, she presented to the [facility] Emergency Department, where she was found to [...] her age, though has a history of xmpd-aquj-qmdpjwujckoqoba, GERD, hypertension, hypothyroidism, and osteoporosis. She denies a history of diabetes mellitus, myocardial infarction,cerebrovascular accident, renal disease, and pulmonary disease. Her BMI is 19.5. She is . [facility] Medical History Traumatic open wound of [...] Date Recorded By Document 01/13/25 13:59 DL [id number] 01/13/25 14:01 DL Document 01/19/25 13:46 KW [id number] 01/19/25 13:49 KW 01/13/25 01/19/25 13:59 13:46 - Today's Visit Information Type of service Follow-up Visit Follow-up Visit (Physician/PROP DRAWER (Physician/PROP DRAWER ) ) Arrival Mode Ambulatory Ambulatory,Cane Transfer [...] Date Recorded By Document 01/13/25 13:59 DL [id number] 01/13/25 14:01 DL Document 01/19/25 13:46 KW [id number] 01/19/25 13:49 KW 01/13/25 01/19/25 13:59 13:46 [...] Recorded Date Recorded By Document 01/13/25 14:27 [id number] 01/13/25 14:29 Document 01/19/25 14:01 JF [id number] 01/19/25 14:02 JF 01/13/25 01/19/25 14:27 14:01 [...] Recorded Date Recorded By Document 01/13/25 14:38 [facility] [id number] 01/13/25 14:38 [facility] Document 01/19/25 14:10 KW [id number] 01/19/25 14:10 KW 01/13/25 01/19/25 14:38 14:10 [...] Charges/Coding Visit Charges Office Visits / Consults: 14706 OV L3 Est 20min Assessment/Plan Assessment/Plan (1) [...] Age-related osteoporosis without current pathological fracture (11) Arjz-vyrb-fajytbqhvkekfym: 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 The injury occurred when thepatient's dog traumatized her leg with its nails. Immediately following her injury, the patient presented to the [facility] Emergency Department, where the avulsion flap was [...] Cosigner Signature (if applicable): CC: ~ Signed [facility] Work Phone: 1(666) 470-373505-13-2025 History and physical note [facility] [address] [place] [address] H&P Exam - Wound Care 01/19/25 1900 MR#: [id number] Acct: [id number] Name: GERALDINE HAIRSTON Rep #:[id number] : 1950 74 From: Cedric Worthington PCP: Dr. Chance Kolb MD [facility] Location: History of Present Illness Date of Service: 01/19/25 Chief Complaint: Traumatic avulsion injury of the left medial calf History of Wound: This is a 74-year-old female who sustained a traumatic injury to her left medial calf on January 01, 2025. At the time of her injury, she presented to the [facility] Emergency Department, where she was found to [...] her age, though has a history of buef-qhbc-epxuffqiyvhijdj, GERD, hypertension, hypothyroidism, and osteoporosis. She denies a history of diabetes mellitus, myocardial infarction,cerebrovascular accident, renaldisease, and pulmonary disease. Her BMI is 19.5. She is . [facility] Medical History Traumatic open wound of [...] Date Recorded By Document 01/13/25 13:59 DL [id number] 01/13/25 14:01 DL Document 01/19/25 13:46 KW [id number] 01/19/25 13:49 KW 01/13/25 01/19/25 13:59 13:46 WC - Today's Visit Information Type of service Follow-up Visit Follow-up Visit (Physician/PROP DRAWER (Physician/PROP DRAWER ) ) Arrival Mode Ambulatory Ambulatory,Cane Transfer [...] Date Recorded By Document 01/13/25 13:59 DL [id number] 01/13/25 14:01 DL Document 01/19/25 13:46 KW [id number] 01/19/25 13:49 01/13/25 01/19/25 13:59 13:46 Wound [...] Recorded Date Recorded By Document 01/13/25 14:27 [id number] 01/13/25 14:29 Document 01/19/25 14:01 [id number] 01/19/25 14:02 01/13/25 01/19/25 14:27 14:01 Wound [...] Recorded Date Recorded By Document 01/13/25 14:38 [facility] [id number] 01/13/25 14:38 [facility] Document 01/19/25 14:10 [id number] 01/19/25 14:10 01/13/25 01/19/25 14:38 14:10 Wound [...] Charges/Coding Visit Charges Office Visits / Consults: 32076 OV L3 Est 20min Assessment/Plan Assessment/Plan (1) [...] Age-related osteoporosis without current pathological fracture (11) Xtnp-rmhj-zdqkulrakgeutwv: 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 The injury occurred when thepatient's dog traumatized her leg with its nails. Immediately following her injury, the patient presented to the [facility] Emergency Department, where the avulsion flap was [...] Cosigner Signature (if applicable): CC: ~ Signed [facility]05-08-2025 History and physical note Author Cedric Gibbons [facility] Note Date/Time January 14, 2025 8:19pm [facility] [address] [place] [address] H&P Exam - Wound Care 01/14/252007 MR#: [id number] Acct: [id number] Name: GERALDINE HAIRSTON Rep #:[id number] : [...] of her injury, she presented to the [facility] Emergency Department, where she was found to [...] her age, though has a history of pxww-pgxo-lbetyzturqbwyxh, GERD, hypertension, hypothyroidism, and osteoporosis. She denies a history of diabetes mellitus, myocardial infarction,cerebrovascular accident, renal disease, and pulmonary disease. Her BMI is 19.5. She is . [facility] Medical History Traumatic open wound of [...] Date Recorded By Document 01/13/25 13:59 DL [id number] 01/13/25 14:01 DL 01/13/25 13:59 - Today's Visit Information Type of service Follow-up Visit (Physician/PROP DRAWER ) Arrival Mode Ambulatory Transfer Assistance None [...] Date Recorded By Document 01/13/25 13:59 DL [id number] 01/13/25 14:01 DL 01/13/25 13:59 Wound Center [...] Recorded Date Recorded By Document 01/13/25 14:27 [id number] 01/13/25 14:29 01/13/25 14:27 Wound Center Nurse [...] Recorded Date Recorded By Document 01/13/25 14:38 [facility] [id number] 01/13/25 14:38 [facility] 01/13/25 14:38 Wound Care Center Nurse [...] Charges/Coding Visit Charges Office Visits / Consults: 43936 OV L3 Est 20min Assessment/Plan Assessment/Plan (1) [...] Age-related osteoporosis without current pathological fracture (11) Jcpv-sfmj-ksegkjbybrtvlbo: 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 The injury occurred when thepatient's dog traumatized her leg with its nails. Immediately following her injury, the patient presented to the [facility] emergency Department, where the avulsion flap was [...] Cosigner Signature (if applicable): CC: ~ Signed [facility] Work Phone: 1(357) 287-330405-08-2025 History and physical note [facility] [address] [place] [address] H&P Exam - Wound Care 01/14/252007 MR#: [id number] Acct: [id number] Name: RONALDOGERALDINE BRITO Elin Rep #:[id number] : 1950 74 From: Cedric Worthington PCP: Dr. Chance Kolb MD Status:[facility] Location: History of Present Illness Date of Service: 01/13/25 Chief Complaint: Traumatic avulsion injury of the left medial calf History of Wound: This is a 74-year-old female who sustained a traumatic injury to her left medial calf on January 01, 2025. At the time of her injury, she presented to the [facility] Emergency Department, where she was found to [...] her age, though has a history of xkhq-fqhc-ifbkzpkzvjnsulg, GERD, hypertension, hypothyroidism, and osteoporosis. She denies a history of diabetes mellitus, myocardial infarction,cerebrovascular accident, renaldisease, and pulmonary disease. Her BMI is 19.5. She is . [facility] Medical History Traumatic open wound of [...] Date Recorded By Document 01/13/25 13:59 CHARY [id number] 01/13/25 14:01 DL 01/13/25 13:59 - Today's Visit Information Type of service Follow-up Visit (Physician/PROP DRAWER ) Arrival Mode Ambulatory Transfer Assistance None [...] Recorded Date Recorded By Document 01/13/25 13:59 [id number] 01/13/25 14:01 DL 01/13/25 13:59 Wound Center [...] Recorded Date Recorded By Document 01/13/25 14:27 [id number] 01/13/25 14:29 01/13/25 14:27 Wound Center Nurse [...] Recorded Date Recorded By Document 01/13/25 14:38 [facility] [id number] 01/13/25 14:38 [facility] 01/13/25 14:38 Wound Care Center Nurse [...] Charges/Coding Visit Charges Office Visits / Consults: 38806 OV L3 Est 20min Assessment/Plan Assessment/Plan (1) [...] Age-related osteoporosis without current pathological fracture (11) Vtcj-darw-mgeeeyxwlimngzy: 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 The injury occurred when thepatient's dog traumatized her leg with its nails. Immediately following her injury, the patient presented to the [facility] emergency Department, where the avulsion flap was [...] Cosigner Signature (if applicable): CC: ~ Signed [facility]04-30-2025 Evaluation note* Diagnosis Onset Date Resolution Status Admit Date Avulsion injury acute December 1:39pm History of ankle surgery acute January 06, 2025 1:39pm History of cataract surgery acute January 06, 2025 1:39pm History of surgery on wrist acute January 06, 2025 1:39pm Dyvp-tpwl-elomymuigkdckqm acute January 06, 2025 1:39pm S/P ORIF [...] on wrist acute February 02, 2025 2:00pm Pnpb-pcjm-jgmrwdnevbarapc acute February 02, 2025 2:00pm S/P ORIF [...] fixation) fracture chronic February 02, 2025 2:00pm [facility] Work Phone: 1(380) 500-880604-30-2025 Evaluation note* Diagnosis Onset Date Resolution Status Admit Date Avulsion injury acute December 1:39pm History of ankle surgery acute January 06, 2025 1:39pm History of cataract surgery acute January 06, 2025 1:39pm History of surgery on wrist acute January 06, 2025 1:39pm Fhyq-bhkk-wsjxmcturfrdehr acute January 06, 2025 1:39pm S/P ORIF [...] on wrist acute February 02, 2025 2:00pm Jsfj-nije-kiogetcnodxykgq acute February 02, 2025 2:00pm S/P ORIF [...] on wrist acute March 02, 2025 1:30pm Dvli-cagu-ntmexpkadudxdbx acute March 02, 2025 1:30pm S/P ORIF [...] fixation) fracture chronic March 02, 2025 1:30pm [facility] Work Phone: 1(876) 231-375404-30-2025 Evaluation note* Diagnosis Onset Date Resolution Status Admit Date Avulsion injury acute December 1:39pm History of ankle surgery acute January 06, 2025 1:39pm History of cataract surgery acute January 06, 2025 1:39pm History of surgery on wrist acute January 06, 2025 1:39pm Egzp-zked-qmtsxcomlfebdhp acute January 06, 2025 1:39pm S/P ORIF [...] on wrist acute February 02, 2025 2:00pm Hydf-pyyo-tnkcnppkyajfsfd acute February 02, 2025 2:00pm S/P ORIF [...] on wrist acute March 02, 2025 1:30pm Krmg-ocza-uqaluozlxyjewlf acute March 02, 2025 1:30pm S/P ORIF [...] on wrist acute March 09, 2025 12:44pm Xsfv-yxda-jmimfcpflpwegah acute March 09, 2025 12:44pm S/P ORIF [...] fixation) fracture chronic March 09, 2025 12:44pm [facility] Work Phone: 1(543) 870-202604-30-2025 Evaluation note* Diagnosis Onset Date Resolution Status Admit Date Avulsion injury acute December 1:39pm History of ankle surgery acute January 06, 2025 1:39pm History of cataract surgery acute January 06, 2025 1:39pm History of surgery on wrist acute January 06, 2025 1:39pm Dmax-gkox-ublsfvsnftaowwg acute January 06, 2025 1:39pm S/P ORIF [...] on wrist acute February 02, 2025 2:00pm Xlkk-ndiq-zbyllhafnumimsh acute February 02, 2025 2:00pm S/P ORIF [...] on wrist acute March 02, 2025 1:30pm Jzfy-rsje-itipvkybkgwnwtm acute March 02, 2025 1:30pm S/P ORIF [...] on wrist acute March 30, 2025 1:15pm Imqi-ukja-bljrbxojwsiaeda acute March 30, 2025 1:15pm S/P ORIF [...] fixation) fracture chronic March 30, 2025 1:15pm [facility] Work Phone: 1(746) 552-830601-31-2025 Telephone encounter Note* Telephone Encounter - Beth Linda LPN - 2024 4:19 PM EST Patient notified of providers message and verbalized understanding. [facility]01-31-2025 Miscellaneous Notes* Telephone Encounter - Beth Linda [...] Ann Marie Wylie RN documented in this encounterMetro[facility]01-31-2025 Telephone encounter Note * Telephone Encounter - Nguyễn Stringer APRN.CNS - 2024 3:52 PM EST Urinalysis shows bacteria no other abnormal findings. If still with dysuria urgency frequency can send the antibiotic. Culture not completed. Rx macrobid x 7 days to DDM. [facility]01-31-2025 Telephone encounter Note* Telephone Encounter - Ann Marie Wylie RN - 2024 12:55 PM EST Patient calls and states that she has been having issues with frequent urination. Patient lower abdomen discomfort. Patient came into lab on 10/06/2024 and did urinalysis. Patient asking if provider can advise on this? Please review and advise, Ann Marie Wylie RN [facility]12-09-2024 History of Present illness Narrative* Aicha Gonzalez [...] PATIENT PRESENTS WITH AN IMPLANTABLE OR ATTACHED LPC: No RADIOLOGY DEPARTMENT: Bone Density PERIPHERAL IV DATA: Not applicable SIGNED BY: DENISE Matt) August 17, 2024 11:03 AM documented in this encounterMetro[facility]12-09-2024 NoteHNO ID: [id number] Author: AICHA GONZALEZ RT (R) Service: ? [...] PATIENT PRESENTS WITH AN IMPLANTABLE OR ATTACHED LPC: No RADIOLOGY DEPARTMENT: Bone Density PERIPHERAL IV DATA: Not applicable SIGNED BY: SOLANGE MattR) August 17, 2024 11:03 [facility]12-06-2024 NoteHNO ID: [id number] Author: BAILEY MADRIGAL, PT Service: ? Author [...] program as noted above with an (*). Self-Half-Way Management: 1: advised for pt. to conintue [...] on professional ju (more content not included)... [facility]12-06-2024 History of Present illness Narrative* Bailey [...] program as noted above with an (*). Self-Half-Way Management: 1: advised for pt. to conintue [...] 1308 Bailey Madrigal PT documented in this encounterMet[facility]12-04-2024 Telephone encounter Note * Telephone Encounter - Courtney Patrick RN - 08/12/2024 4:00 PM EST Addressed in My Chart encounter 08/07/24. Courtney Patrick RN [facility]12-04-2024 Miscellaneous Notes* Telephone Encounter - Courtney Patrick [...] further. Liyah Layne LPN documented in this encounterMet[facility]11-29-2024 Telephone encounter Note * Telephone Encounter - Aquiles Jackson MA - 08/07/2024 3:49 PM EST Left message to call office. 08/07/2024 3:49 PM [facility]11-29-2024 Telephone encounter Note* Telephone Encounter - Nguyễn Stringer APRN.KOFI - 08/07/2024 3:23 PM EST Switch to Bactrrim. Recheck urine order is already placed. She can come in for recheck / OV if she would like, [facility]11-29-2024 History of Present illness Narrative* Bailey Madrigal, PT - 08/07/2024 12:57 PM EST Program_ID:[id number] Access Code: [email or web address] URL: [email or web address] Date: 08-07-2024 Prepared By: Bailey Madrigal Program [...] 1305 Bailey Madrigal PT documented in this encounterMetro[facility]11-29-2024 NoteHNO ID: [id number] Author: BAILEY MADRIGAL PT Service: ? Author [...] Session Stop Time : 1305 Bailey Madrigal, [facility]11-29-2024 Telephone encounter Note * Telephone Encounter - Liyah Layne LPN - 08/07/2024 11:20 AM EST patient is still c/o urinary frequency and pressure to have to go. Patient will complete antibiotics today for UTI. PATIENT is wanting to know if she needs checked again? Patient was treated for this UTI in urgent care. Please review and advise further. Liyah Layne LPN [facility]11-18-2024 History of Present illness Narrative* Bailey Madrigal, PT - 07/27/2024 3:56 PM EST Program_ID:[id number] Access Code: [email or web address] URL: [email or web address] Date: 07-27-2024 Prepared By: Bailey Madrigal Program [...] and function . Patient education as noted. Self-Half-Way Management: 1: discussed that symptoms resolving with [...] 1603 Bailey Madrigal PT documented in this encounterMetro[facility]11-18-2024 NoteHNO ID: [id number] Author: BAILEY MADRIGAL PT Service: ? Author [...] and function . Patient education as noted. Self-Half-Way Management: 1: discussed that symptoms resolving with [...] Session Stop Time : 1603 Bailey Madrigal, [facility]11-18-2024 History of Present illness Narrative* Nguyễn Stringer APRN.PEDIATRICIAN ACTIVE PRACTICE - 07/27/2024 12:32 PM EST SUBJECTIVE: Shingrix [...] MACROCRYSTAL 100 MG ORAL CAP Nguyễn Stringer, AIR TWISTER WINDER.PEDIATRICIAN ACTIVE PRACTICE Medical Decision Making: Problems: Low: Acute, uncomplicated illness or injury Data: Unique test(s) ordered: 1 Risk: Moderate: Drug management Medical Decision Making Level: 3 - Low documented in this encounterMetrohealth [facility]11-18-2024 NoteHNO ID: [id number] Author: NGUYỄN STRINGER APRN.PEDIATRICIAN ACTIVE PRACTICE Service: ? Author Type: Nurse Specialist Type: [...] and lab with urinal (more content not included)...[facility]11-16-2024 NoteHNO ID: [id number] Author: CARMEN MIRANDA APRN.PROP DRAWER Service: ? Author Type: Nurse Practitioner Type: [...] IBS and sees a GI provider in [place]. She states that she recently started physical [...] Maternal Uncle x4 Lorene (more content not included)...[facility]11-16-2024 History of Present illness Narrative* Carmen Miranda, [facility] - 07/25/2024 11:39 AM EST Subjective [...] IBS and sees a GI provider in [place]. She states that she recently started physical [...] 3 capsules by mouth once daily. (Dr. oJhn Swan) Calcium-Cholecalciferol, D3, (CALCIUM 600 + D) [...] with plan and verbalizesunderstanding. Stephanie Garcia, Student GYRO MECHANIC I have personally seen and examined the patient and performed the medical- decision making components. I have reviewed the Advanced Practice Registered Nurse (AIR TWISTER WINDER) student's documentation and verified the findings in the note as written. Any additions or changes are noted in bold/italics. Carmen Miranda APRN.PROP DRAWER documented in this encounterMetrohealth [facility]11-16-2024 Instructions* Patient Instructions* Stephanie Garcia - 07/25/2024 [...] with plan and verbalizesunderstanding. Stephanie Garcia, Student GYRO MECHANIC Complete dose of antibiotic Follow-up with PCP in 2-3 days Monitor for signs of infection, fever, increased pain, nausea and or vomiting in the presence of pain. documented in this encounterMetrohealth [facility]11-08-2024 History of Present illness Narrative* Bailey Madrigal, CLAUDIA - 07/17/2024 1:36 PM EST Program_ID:[id number] Access Code: [email or web address] URL: [email or web address] Date: 07-17-2024 Prepared By: Bailey Madrigal Program [...] Planned: 6 Planned Treatment Interventions: Therapeutic exercise (21331), Manual therapy (22492), Therapeutic activities (70173), Self-long-term management (06774), Gait Training (56561), Neuromuscular re-education (85482) PLAN FOR NEXT VISIT: assess symmptom response [...] Extension: Moderate limitation, Produces Lumbar R Side [place]: Major limitation, Produces Lumbar L Side [place]: Major limitation, Produces Lumbar R Side-Bend: Moderate [...] Demonstration TREATMENT: PT Treatment Interventions: Therapeutic Exercise, Self-Half-Way Management Evaluation Therapeutic Exercise: 1: *Access Code: [email or web address] URL: [email or web address] Date: 07/17/2024 Prepared by: Bailey Talamantes Exercises [...] and function . Patient education as noted. Self-Half-Way Management: 1: discussed directional preference 2: discussed [...] 1350 Bailey Madrigal PT documented in this encounterMetro[facility]11-08-2024 NoteHNO ID: [id number] Author: BAILEY MADRIGAL PT Service: ? Author [...] Planned: 6 Planned Treatment Interventions: Therapeutic exercise (11828), Manual therapy (95360), Therapeutic activities (76021), Self-long-term management (87701), Gait Training (72542), Neuromuscular re-education (41959) PLAN FOR NEXT VISIT: assess symmptom response [...] AROM Lumbar Flexion: Normal (more content not included)...[facility]10-16-2024 History of Present illness Narrative* Chance Kolb MD - 06/24/2024 4:01 PM EDT Images from the original note were not included. This note was created using [employer]. Subjective Geraldine Hairston is a 73 year [...] ityears ago. She recalls a fall at [employer], resulting in a femur fracture, which occurred [...] for spine exercises and balance improvement at [facility]. - Educated on red flag symptoms such [...] (Z79.899) Chance Kolb MD documented in this encounterMetro[facility]09-06-2024 Telephone encounter Note * Telephone Encounter - Deidra Kohler RN - 05/15/2024 2:03 PM EDT Patient calling with question regarding recent prescription. Information provided. Deidra Kohler RN [facility]09-06-2024 Miscellaneous Notes* Telephone Encounter - Deidra Kohler RN - 05/15/2024 2:03 PM EDT Patient calling with question regarding recent prescription. Information provided. Deidra Kohler RN documented in this encounterMetrohealth [facility] Center09-05-2024 History of Present illness Narrative* Nguyễn Stringer, MIMI.PEDIATRICIAN ACTIVE PRACTICE - 05/14/2024 3:58 PM EDT SUBJECTIVE: RSV [...] Level: 3 - Low documented in this encounterMetrohealth [facility] Center09-05-2024 Instructions* Patient Instructions* Nguyễn Stringer APRN.CNS - 05/14/2024 3:27 PM EDT Take naproxen morning and evening for the next few days then just as needed thereafter. Take with food. documented in this encounterMetrohealth [facility] Center07-22-2024 Note* Letter - Coordinator, Mammography - 03/30/2024 9:01 AM EDT March 30, 2024 PID: [id number] Geraldine Hairston formerly [facility] [place] [address] Dear Ms. Hairston, We are pleased to [...] report will be kept on file at [facility] as part of your permanent medical record and are available for your continuing care. Thank you for allowing us to help in meeting your health care needs. Sincerely, Dr. Cope Interpreting Radiologist [facility] (Normal over 40) [facility]07-22-2024 Miscellaneous Notes* Letter - Coordinator, Mammography - 03/30/2024 9:01 AM EDT March 30, 2024 PID: [id number] Geraldine Pacheco Yovanny formerly [facility] [place] [address] Dear Ms. Hairston, We are pleased to [...] report will be kept on file at [facility] as part of your permanent medical record and are available for your continuing care. Thank you for allowing us to help in meeting your health care needs. Sincerely, Dr. Cope Interpreting Radiologist [facility] (Normal over 40) documented in this encounterMetrohealth [facility] Center07-19-2024 History of Present illness Narrative* Celia Luna [...] PATIENT PRESENTS WITH AN IMPLANTABLE OR ATTACHED LPC: No RADIOLOGY DEPARTMENT: Mammography PERIPHERAL IV DATA: Not applicable SIGNED BY: RT Cristian(R) March 27, 2024 10:26 AM documented in this encounterMetrohealth [facility]05-02-2024 History of Present illness Narrative* Thea Vail MD - 01/09/2024 10:30 AM EDT Images from the original note were not included. [facility] [address] [place] [address] Dept: [phone] Dept 01/09/2024 Chief Complaint Patient presents with [...] Vail MD Hand and Upper Extremity Surgery [facility] Department of Orthopaedics and Sports Medicine 01/09/2024 at 10:30 AM (Please note that portions of this note may have been completed with a voice recognition program. Efforts were made to edit the dictations but occasionally words are mis-transcribed.) documented in this encounterSSelect Medical [facility], [id number] Telephone encounter Note* Telephone Encounter - Cheri Greco - 01/06/2024 10:29 AM EDT Spoke to patient and scheduled appointment to discuss surgery details. [id number] Miscellaneous Notes* Telephone Encounter - Cheri Greco - 01/06/2024 10:29 AM EDT Spoke to patient and scheduled appointment to discuss surgery details. * Telephone Encounter - Cheir Greco - 01/06/2024 10:22 AM EDT Left [...] Cheri Greco - 09/23/2023 3:36 PM EST [facility] SURGERY SCHEDULING SLIP Patient: Geraldine Hairston Date of : 1950 Date of Surgery: Next available Day of Surgery: [facility]: [place] Duration: 2hrs Type: Outpatient PAT: Yes Med [...] hardware removal set (available) Hand tray Tendon laundry or dry cleaners counter clerk * Telephone Encounter - Cheri Greco - 09/04/2023 1:33 PM EST Operative report in media, please review and advise. * Telephone Encounter - Cheri Greco - 08/29/2023 11:01 AM EST Records request sent to Adarsh Downey for Operative reports. Will have Yared review and advise on surgery orders once reports received. documented in this encounterSSelect Medical [facility], [id number] Telephone encounter Note* Telephone Encounter - Cheri Greco - 01/06/2024 10:22 AM EDT Left message informing patient with number to call back with additional questions or concerns or toschedule surgery. [facility] [id number] Telephone encounter Note* Telephone Encounter - Grace Wilson LPN - 01/03/2024 4:46 PM EDT Patient had not tried any tylenol or ibuprofen. She would like to try this first and if no improvement come Saturday or Saturday she will call back for a script for prednisone. [facility]04-26-2024 Miscellaneous Notes* Telephone Encounter - Grace Wilson [...] reduce her pain. * Telephone Encounter - Lauar Sterling LPN - 01/03/2024 10:16 AM EDT Patient calling asking for her results. Went over my chart message from Malachi Lilly GYRO MECHANIC with understanding. Patient said she has constant pain lower back rates at a 5 to 6. She has been using ice packs. She was asking anything else GYRO MECHANIC wants me to be doing? Patient phone number is [phone] or can my chart message her please. Had gone over notes from office visit with her also. documented in this encounterMetrohealth [facility]04-26-2024 Telephone encounter Note * Telephone Encounter - Malachi Lilly APRN.CNP - 01/03/2024 4:39 PM EDT Please check and see if she is taking any tylenol or ibuprofen? IS she opposed to trying a steroid?We could try that to reduce her pain. [facility]04-26-2024 Telephone encounter Note* Telephone Encounter - Laura Sterling LPN - 01/03/2024 10:16 AM EDT Patient calling asking for her results. Went over my chart message from Malachi Lilly GYRO MECHANIC with understanding. Patient said she has constant pain lower back rates at a 5 to 6. She has been using ice packs. She was asking anything else GYRO MECHANIC wants me to be doing? Patient phone number is [phone] or can my chart message her please. Had gone over notes from office visit with her also. [facility]04-23-2024 Telephone encounter Note* Telephone Encounter - Thea [...] ensure we are on the same page. [facility] Phone: 1(760) 155-403304-23-2024 History of Present illness Narrative* Valorie Chauhan [...] PATIENT PRESENTS WITH AN IMPLANTABLE OR ATTACHED LPC: No RADIOLOGY DEPARTMENT: General X-ray: Exam(s) Completed: Spine X-Ray(s): Lumbar AP / LAT / L5-S1 PERIPHERAL IV DATA: Not applicable SIGNED BY: RT Chad(R) December 31, 2023 3:13 PM documented in this encounterMetro[facility]04-23-2024 History of Present illness Narrative* Malachi Lilly APRN.PROP DRAWER - 12/31/2023 2:24 PM EDT SUBJECTIVE Geraldine [...] - 08/01/2010 Comment: Was seen by , sieve maker, Meyers Chuck. Started on PPI for GERD with good [...] appointment.. LUIS FELIPE Grijalva documented in this encounterMetrohealth [facility]04-19-2024 Telephone encounter Note * Telephone Encounter - [...] if its necessary to proceed with surgery. [id number] Miscellaneous Notes* Telephone Encounter - Cheri Greco [...] of Surgery: Next available Day of Surgery: [facility]: [place] Duration: 2hrs Type: Outpatient PAT: Yes Med [...] hardware removal set (available) Hand tray Tendon laundry or dry cleaners counter clerk * Telephone Encounter - Cheri Greco - 09/04/2023 1:33 PM EST Operative report in media, please review and advise. * Telephone Encounter - Cheri Greco - 08/29/2023 11:01 AM EST Records request sent to [facility] for Operative reports. Will have [facility] review and advise on surgery orders once reports received. documented in this [place] [address]-19-2024 Miscellaneous Notes* Telephone Encounter - Cheri Greco [...] of Surgery: Next available Day of Surgery: [facility]: [place] Duration: 2hrs Type: Outpatient PAT: Yes Med [...] hardware removal set (available) Hand tray Tendon laundry or dry cleaners counter clerk * Telephone Encounter - Cheri Greco - 09/04/2023 1:33 PM EST Operative report in media, please review and advise. * Telephone Encounter - Cheri Greco - 08/29/2023 11:01 AM EST Records request sent to Adarsh Downey for Operative reports. Will have Yared review and advise on surgery orders once reports received. documented in this [facility]01-19-2024 Telephone encounter Note* Telephone Encounter - Cheri Greco - 09/27/2023 3:21 PM EST Spoke to patient, she is recovering from rib fractures and will call when ready to proceed with surgery. [id number] Telephone encounter Note* Telephone Encounter - Cheri Greco - 09/23/2023 3:36 PM EST Left message for patient to call back to schedule surgery. [facility] [id number] Telephone encounter Note* Telephone Encounter - Cheri Greco - 09/23/2023 3:36 PM EST YARED SURGERY SCHEDULING SLIP Patient: Geraldine Hairston Date of : 1950 Date of Surgery: Next available Day of Surgery: [facility]: [place] Duration: 2hrs Type: Outpatient PAT: Yes Med [...] hardware removal set (available) Hand tray Tendon laundry or dry cleaners counter clerk [facility] [id number] Telephone encounter Note* Telephone Encounter - Cheri Greco - 09/04/2023 1:33 PM EST Operative report in media, please review and advise. [facility] [id number] History of Present illness Narrative* Ena Cardoso [...] 03, 2023 1:29 PM documented in this encounterMetrohealth [facility] Center12-21-2023 Telephone encounter Note * Telephone Encounter - Cheri Greco - 08/29/2023 11:01 AM EST Records request sent to Adarsh Downey for Operative reports. Will have Yared review and advise on surgery orders once reports received. [facility] [id number] History of Present illness Narrative* Thea Vail MD - 08/29/2023 10:15 AM EST Images from the original note were not included. [facility] [address] [place] [address] Dept: [phone] Dept 08/29/2023 Chief Complaint Patient presents with [...] Hairston regarding the natural history, etiology, and terminal carman consequences of her condition. We discussed both [...] Follow-up: Geraldine will followup with my physician assistant corporate controller Rossy Holliday PA-C post operatively. She knows to call the office with any questions or concerns in the interim. Future Imaging: NONE Thea Yared, MD Hand and Upper Extremity Surgery [facility] Department of Orthopaedics and Sports Medicine 08/29/2023 at 11:09 AM (Please note that portions of this note may have been completed with a voice recognition program. Efforts were made to edit the dictations but occasionally words are mis-transcribed.) documented in this [facility]12-04-2023 History of Present illness Narrative* Thea Vail MD - 08/12/2023 2:15 PM EST Images from the original note were not included. [facility] [address] [place] [id number] Dept: [phone] Dept 08/12/2023 Chief Complaint Patient presents with [...] Vail MD Hand and Upper Extremity Surgery [facility] Department of Orthopaedics and Sports Medicine 08/12/2023 at 2:13 PM (Please note that portions of this note may have been completed with a voice recognition program. Efforts were made to edit the dictations but occasionally words are mis-transcribed.) documented in this [facility]11-24-2023 Miscellaneous Notes* Telephone Encounter - Grace Wilson LPN - 08/02/2023 3:49 PM EST PATIENT NOTIFIED OF SAME. * Telephone Encounter - Malachi Lilly APRN.CNP - 08/02/2023 3:25 PM EST Please let Geraldine know her urine culture did confirm infection and the Macrobid is a good option, it is effective for the infection. documented in this encounterMetrohealth [facility] Center11-22-2023 History of Present illness Narrative* Malachi Lilly [...] - 08/01/2010 Comment: Was seen by , sieve maker, Meyers Chuck. Started on PPI for GERD with good [...] appointment.. Malachi Lilly APRN-KELLY documented in this encounterMetrohealth Main [facility] Center11-22-2023 Instructions* Patient Instructions* Grace Wilson LPN - [...] treated. A physician, nurse practitioner or physician assistant corporate controller may treat with a short course of [...] women if symptoms resolve. documented in this encounterMetrohealth Main Campus [facility] Center10-13-2023 Instructions* Patient Instructions* Chance Kolb MD - [...] anemia be an issue. documented in this encounterMetrohealth Main Campus [facility] Center10-13-2023 History of Present illness Narrative* Chance Kolb MD - 06/21/2023 4:59 PM EDT This note was created using [employer] Chuang[employer]. Subjective Geraldine Hairston is a 72 year [...] pain; left just occasionally. Follows with Dr. oJel for lump on thumb. Further evaluation and [...] indicated. Chance Kolb MD documented in this encounterMetrohealth [facility] Center08-28-2023 History of Present illness Narrative* Malachi Lilly APRN.PROP DRAWER - 05/06/2023 11:18 AM EDT Images from the original note were not included. SUBJECTIVE Geraldine Hairston is a 72 year old female here today for a check up on her medical problems. Chief Complaint Patient presents with: ER F/U: [facility] 04/29/23. Sutures need removed from a dog nail abrasion HPI Geraldine Hairston is a 72 year old female established patient of Dr. Kolb. She presents today for ER follow up. Seen in ER at [facility] on 04/29/2023 for an abrasion. [...] - 08/01/2010 Comment: Was seen by , sieve maker, Meyers Chuck. Started on PPI for GERD with good [...] which included preparing to see the patient, [id number] patient care, completing clinical documentation, obtaining and/or [...] appointment.. Malachi Lilly APRN-KELLY documented in this encounterMetrohealth [facility] Center07-19-2023 Miscellaneous Notes* Letter - Coordinator, Mammography - 03/27/2023 12:52 PM EDT March 28, 2023 PID: [id number] Geraldine Hairston formerly [facility] [place] [address] Dear Ms. Hairston, We are pleased to [...] report will be [facility] as part of your permanent medical record and are available for your continuing care. Thank you for allowing us to help in meeting your health care needs. Sincerely, Dr. Smith Interpreting Radiologist [facility] (Normal over 40) documented in this encounterMetrohealth Main Campus Medical Center07-18-2023 Instructions* Patient Instructions* Malachi Lilly APRN.CNP - [...] bump on your thumb. documented in this encounterMetrohealth Main Campus Medical Center07-18-2023 History of Present illness Narrative* Malachi Lilyl APRN.CNP - 03/26/2023 10:43 AM EDT Images [...] sensation. Going to reach out to her sieve maker to see about completing EGD Pain: right [...] - 08/01/2010 Comment: Was seen by , sieve maker, Meyers Chuck. Started on PPI for GERD with good [...] appointment.. Malachi Lilly APRN-KELLY documented in this encounterMetrohealth Main [facility] Center07-17-2023 History of Present illness Narrative* Madeline Olmedo [...] 25, 2023 1:54 PM documented in this encounterMetrohealth [facility] Center07-17-2023 History of Present illness Narrative* Essie Man APRN.CNP - 03/25/2023 1:16 PM EDT Patient presents today for annual visit due to Medicare guidelines patient does not need to be seenuntil next year. Mammogram orders placed for next year. Essie Man APRN.CNP No charge visit documented in this encounterMetrohealth Main [facility] Center03-27-2023 Miscellaneous Notes* Telephone Encounter - Cherise Armenta [...] on current Lipitor dose. documented in this encounterMetrohealth Main [facility] Center03-18-2023 Miscellaneous Notes* Telephone Encounter - Chance Kolb MD - 11/24/2022 1:34 PM EDT See RX refill done November 24, 2022 documented in this encounterMetrohealth [facility] Center03-18-2023 Miscellaneous Notes* Telephone Encounter - Chance Kolb [...] Authorizing Provider: CHANCE KOLB MD Replied to Perfect message as well * Telephone Encounter - Rosalind Jasso LPN - 11/24/2022 9:09 AM EDT Pt calling for refills. documented in this encounterMetrohealth [facility] Center03-15-2023 Miscellaneous Notes* Telephone Encounter - Ann Marie [...] Ann Marie Kelly LPN documented in this encounterMetrohealth Main [facility] Center03-15-2023 Miscellaneous Notes* Telephone Encounter - Grace Wilson [...] asordered. Deidra Kohler RN documented in this encounterMetrohealth Main [facility] Center03-10-2023 History of Present illness Narrative* Chance Kolb MD - 11/16/2022 2:02 PM EST This note was created using Harry'sriter. Subjective Geraldine Hairston is a 72 year [...] NONFASTING Chance Kolb MD documented in this encounterMetrohealth [facility] Center02-08-2023 Miscellaneous Notes* Telephone Encounter - Yuridia Saldaña [...] you. Yuridia Saldaña LPN documented in this encounterMetrohealth [facility] Center01-26-2023 Miscellaneous Notes* Telephone Encounter - Laura Sterling LPN - 10/04/2022 3:58 PM EST Leigh from [facility] Home Health calling to check status of message. Went over notes from Malachi Lilly NPwith understanding. * Telephone Encounter - Malachi Lilly APRN.PROP DRAWER - 10/03/2022 9:46 AM EST Noted and agree. She has a urine culture pending, will wait for results. * Telephone Encounter - Ann Marie Wylie RN - 10/03/2022 9:14 AM EST Leigh from [facility] calls and states that fdc will continue to follow patient 1 times for 2 weeks. Patient just finished antibiotics for UTI and fdc wants to makes sure patient is symptom free. Please review and advise, Ann Marie Wylie RN documented in this encounterMetrohealth [facility] Center01-23-2023 Miscellaneous Notes* Telephone Encounter - Courtney Patrick RN - 10/01/2022 3:06 PM EST Spoke with Naomi,@ [facility]. Given message from provider's office. She verbalizes understanding. Courtney Patrick RN * Telephone Encounter - Nguyễn Stringer APRN.KOFI - 10/01/2022 2:43 PM EST [place] [facility] visit * Telephone Encounter - Courtney Patrick RN - 10/01/2022 2:26 PM EST nurse Naomi @ [facility] calling with request for order for nursing visit x 1 tomorrow to evaluate patient for extension of nursing services. Courtney Patrick RN documented in this encounterMetrohealth [facility] Center01-20-2023 Miscellaneous Notes* Telephone Encounter - Lydia Gold [...] Please call and advise. documented in this encounterMetrohealth Main [facility] Center01-17-2023 Miscellaneous Notes* Telephone Encounter - Grace Wilson LPN - 09/25/2022 1:16 PM EST Anila notified of same. * Telephone Encounter - Malachi Lilly APRN.CNP - 09/25/2022 1:04 PM EST May give the verbal okay to for this. Thanks * Telephone Encounter - Ann Marie Wylie RN - 09/25/2022 12:59 PM EST Anila from [facility] calls and is requesting an order for 1 time nursing evaluation to assessing further nursing needs. Please review and advise, Ann Marie Wylie RN documented in this encounterMetrohealth [facility] Center01-10-2023 Miscellaneous Notes* Telephone Encounter - Ann Marie Kelly LPN - 09/18/2022 3:29 PM EST Patient notified of below results/recommendation, verbalized understanding. Ann Marie Kelly LPN * Telephone Encounter - Malachi Lilly APRN.CNP - 09/18/2022 12:45 PM EST Please let patient know urine dip still shows UTI, will send in for x10 days Bactrim. documented in this encounterMetrohealth [facility] Center01-06-2023 Miscellaneous Notes* Addendum Note - Grace Wilson LPN - 09/14/2022 4:17 PM ESTAddended by: GRACE WILSON LPN on: 09/14/2022 04:17 PM Modules accepted: Orders * Telephone Encounter - Grace Wilson LPN - 09/14/2022 4:02 PM EST Attempted to reach patient with no answer and unable to leave message due to mailbox being full. Copy of order faxed to [facility] to collect urine if that works [...] Ann Marie Wylie, RN documented in this encounterMetrohealth [facility] Center01-06-2023 Miscellaneous Notes* Telephone Encounter - Grace Wilson LPN - 09/14/2022 3:32 PM EST Adela aware of ok. * Telephone Encounter - Malachi Lilly APRN.CNP - 09/14/2022 3:28 PM EST Okay to give verbal ok, thank you * Telephone Encounter - Laura Sterling LPN - 09/14/2022 12:50 PM EST Adela from [facility] Home Health calling patient is agreeable to 1 visit weekly for 2 weeks for fdc, working on medication education and depression. Asking if PCP would give verbal order to agree? Please advise documented in this encounterMetrohealth [facility] Center01-06-2023 Miscellaneous Notes* Telephone Encounter - Grace Wilson LPN - 09/14/2022 3:30 PM EST Left message for [place] that SW eval is approved. * Telephone Encounter - Malachi Lilly APRN.CNP - 09/14/2022 3:26 PM EST Please return call and let them know okay for social work eval. thanks * Telephone Encounter - Deidra Kohler RN - 09/14/2022 3:09 PM EST Alia, social professionals with [facility] is requesting a verbal order for pt to have Social Work Evaluation next week, if provider approves. Please call Alia with order at [phone]. Thank you. documented in this encounterMetrohealth [facility] Center01-04-2023 Miscellaneous Notes* Telephone Encounter - Deidra Kohler RN - 09/12/2022 2:21 PM EST Nathan with [facility] Physical Therapy calling to report plan of care for pt. PT will see patient 2 times per week for 3 weeks for functional mobility training. No call back needed if provider agreeable. Deidra Kohler RN documented in this encounterMetrohealth [facility] Center01-04-2023 Miscellaneous Notes* Telephone Encounter - Courtney Patrick RN - 09/12/2022 1:41 PM EST KORINA Cooney @ [facility] calling to let PCP know patient was seen and evaluated for OT services. She has good support from and denies need for further OT services. Her BP was 88/52. OT did not do a re check. Ivet states she discussed increasing hydration and increased mobility with patient. Courtney Patrick RN documented in this encounterMetrohealth [facility] Center01-03-2023 Miscellaneous Notes* Telephone Encounter - Grace Wilson LPN - 09/11/2022 4:39 PM EST Left message for Alia that Dr. Kolb will follow. * Telephone Encounter - Malachi Lilly APRN.CNP - 09/11/2022 2:29 PM EST Yes, we will follow. * Telephone Encounter - Terrence Buckley RN - 09/07/2022 2:38 PM EST Alia- [facility] HH reports patient will be discharged from [facility] tomorrow with [facility], and they plan to do start of care next week after the holiday. Asking if pcp is agreeable to follow for orders? Please phone Alia with vo. documented in this encounterMetrohealth [facility] Center11-29-2022 History of Present illness Narrative* Cele Balbuena [...] 07, 2022 12:18 PM documented in this encounterMetrohealth Main Campus [facility] Center10-13-2022 Miscellaneous Notes* Telephone Encounter - Rosalind Jasso [...] 2:34 PM EDT ----- Message from Chance Klob MD sent at 05/26/2022 4:18 PM EDT [...] result of bone density documented in this encounterMetrohealth [facility] Center09-07-2022 Miscellaneous Notes* Telephone Encounter - Rosalind Jasso [...] needed based on symptoms. documented in this encounterMetrohealth Main [facility] Center08-03-2022 History of Present illness Narrative* RT Vernell(R) [...] 11, 2022 2:58 PM documented in this encounterMetrohealth Main Campus [facility] Center07-25-2022 Miscellaneous Notes* Telephone Encounter - Dagmar Tang [...] to see if resolves. documented in this encounterMetrohealth Main Campus Medical Center07-22-2022 History of Present illness Narrative* Cele Balbuena [...] 30, 2022 2:06 PM documented in this encounterMetrohealth Main Campus [facility] Center07-22-2022 History of Present illness Narrative* Chance Kolb MD - 03/30/2022 1:24 PM EDT Images from the original note were not included. This note was created using [employer]ang[employer]ter. Subjective Geraldine Hairston is a 71 year [...] more lately. Eating okay. Gets counseling at [facility]. Noted weight loss. PAST MEDICAL HISTORY Diagnosis Date Anxiety state, unspecified Depressive disorder, not elsewhere classified GERD (gastroesophageal reflux disease) controlled with PPI; follows with Dr. wSan Hypothyroid Irritable bowel syndrome IBS; Dr. Swan--continues [...] RELEASE Chance Kolb MD documented in this encounterMetrohealth Main [facility] Center07-12-2022 History of Present illness Narrative* Leighann Burgos Salsa Labso Tech - 03/20/2022 7:50 AM EDT Radiology [...] DATA: Not applicable SIGNED BY: Leighann Burgos [place] March 20, 2022 7:41 AM documented in this encounterMetrohealth Main Campus Medical Center07-12-2022 History of Present illness Narrative* Essie Man APRN.PROP DRAWER - 03/20/2022 6:53 AM EDT Geraldine is a 71 year old who presents for an annual gynecologic exam without complaints. Postmenopausal: Yes HRT use: No. Last Pap: 12/26/2016 normal HPV: 12/24/2016 negative History of abnormal pap: No Last mammogram: 2019 normal History of abnormal mammogram: Yes 2018 benign Sexually active: No OB History T0 L0 SAB1 IAB0 Ectopic0 Multiple0 Live Births0 Service Secretary History LMP: Postmenopausal Age at Menarche: Age at First : Age at Menopause: Service Secretary History Comments: Sexual Activity: Not Currently; Male; [...] external genitalia normal, normal Bartholin's glands, urethra, Amber's glands, no vulvar lesions, no cervical lesions, [...] needed Essie Man APRN.CNP documented in this encounterMetrohealth Main Campus Medical Center05-26-2022 History of Present illness Narrative* Bailey Johnson APRN.CNP - 02/01/2022 1:53 PM EDT This note was created using Harry'sriter. Subjective Geraldine Hairston is a 71 year old female. 71 year old female with PMH Raynauds, hypothyroid, GERD, IBS, depression, and anxiety presents withcomplaints of COVID exposure. Acute onset of symptoms was this past 01/28/22 Endorses a fellow parishioner at her jain tested positive for COVID. Denies she is experiencing symptoms Denies fever or chills. Denies URI sx. Denies cough or congestion. Denies N/V/D Denies body aches or fatigue Denies SOB or dyspnea Requesting COVID testing Denies pain. Denies alleviating factors Denies aggravating factors Denies using homeopathic or OTC medications LIFEGUARD. The history is provided by the patient. No cemetery keeper was used. PAST MEDICAL HISTORY Diagnosis Date [...] ICD9: V01.79, ICD10: Z20.822 +exposure 5 days LIFEGUARD Denies symptoms Requesting testing. - ASYMPTOMATIC ELECTIVE [id number] and pending Bailey Johnson APRN.CNP documented in this encounterMetrohealth Main Campus Medical Center05-26-2022 Instructions* Patient Instructions* Bailey Johnson APRN.KLELY - 02/01/2022 1:53 PM EDT How to Protect Yourself & Others from COVID-19 Wash your hands often Wash your hands often with soap and water for at least 20 seconds especially after you have been elsa public place, or after blowing your nose, coughing, or sneezing. If soap and water are not readily available, use a hand slackline operator that contains at least 60% alcohol. Cover [...] that you do not come to any [facility] facility without calling your primary care physician or speaking to a provider using a virtual visit using [facility] Bottle. You will be evaluated to determine if you require being seen in person or if you meet CDC guidelines for testing for COVID-19 based on symptoms, travel and exposures. If you meet criteria for testing, your [employer] provider or primary care physician will [...] at least 30 days of prescription medications, [id number] medicines, and supplies on hand in case [...] to harm yourself or others: ; Call 091 if you feel like you want to harm yourself or others ; Visit the Disaster Distress Helpline call , [place] [address] ; Visit the National Domestic Violence Hotline or call and TTY Visit the National Suicide Prevention Lifeline or call and TTY or text Most importantly, don't panic. By following basic prevention measures such as hand hygiene and cover your cough, you are helping to keep yourself and others healthy. Additional information can be found on the [facility] and [facility] web sites: https://www.cdc.gov/coronavirus/2019-nCoV/index.html https://[facility].org/coronavirus documented in this encounterMetrohealth Main Campus Medical Center05-23-2022 Nurse Note* Sona Urbina - 01/29/2022 2:58 PM EDT no symptoms and exposure was just yesterday, patient agreed to come back in 5 days unless she has symptoms. Sona Urbina documented in this encounterMetrohealth Main Campus Medical Center04-22-2022 Instructions* Patient Instructions* Jersey Stern V, DO - 12/29/2021 1:26 PM EDT Thank you for choosing the [facility] for your acute care needs. [...] physician or booking an appointment, please call [phone] or speak with any Patient Humanities And Languages Professor. Hours: Saturday through Saturday 7:30 am to 7:00 pm. Saturday and Saturday: 8:00 am to 2:30 pm. documented in this encounterMetrohealth [facility] Center04-22-2022 History of Present illness Narrative* Jersey Stern [...] in the home?: No documented in this encounterMetrohealth Main [facility] Center04-22-2022 History of Present illness Narrative* RT Cailin(R) [...] 29, 2021 1:11 PM documented in this encounterMetrohealth [facility] Center03-19-2022 History of Present illness Narrative* Aicha Gonzalez [...] 25, 2021 10:54 AM documented in this encounterMetrohealth Main [facility] Center02-08-2022 Instructions* Patient Instructions* Chance Kolb MD - [...] prescription with more pills. [facility] History of Present illness Narrative* Chance Kolb MD - 10/17/2021 7:00 PM EST This note was created using [employer]. Subjective Geraldine Hairston is a 71 year [...] indicated. Chance Kolb MD documented in this encounterMet[facility] CenterDischarge summary Author Will Knapp [facility] Note Date/Time March 18, 2025 12:4 8pm [facility] Medical Records Department [address] [place] [id number] Emergency Department Summary 03/18/25 MR#: [id number] Acct: [id number] Name: GERALDINE HAIRSTON Rep #:[id number] : [...] management. Patient denies any blood thinning medications. [facility] Medical History Non-pressure chronic ulcer of [...] 600 mg PO BID Check with [facility] 12/07/15 09/29/16 21:00 History doctor nifedipine 60 [...] 9 mg PO DAILY Check with [facility] 09/30/16 Unknown History capsule,delayed,extended release doctor (Entocort [...] following commands and that she was at [facility] year is 2024 Skin: Warm, dry, intact [...] she is to rotate Tylenol and ibuprofen [id number] she also began prescription for cyclobenzaprine. Allquestion concerns answered she was discharged home in stable condition peer Radiography Diagnostic Testing: Clinical Impression(s) from Imaging Studies Pelvis X-Ray 03/18/25 10:03 IMPRESSION: No acute fracture is seen. Reading Location: [facility]-IR-[address] 03/18/25 10:10 IMPRESSION: LUMBAR DEGENERATIVE DISC AND FACET DISEASE. Nondisplaced compression fracture along the anterior superior endplate of the [id number]. Reading Location: [facility]-1 Femur X-Ray 03/18/25 10:20 IMPRESSION: NO ACUTE FRACTURE OR DISLOCATION. Reading Location: [facility]- Discharge Plan Triage Chief Complaint: Lower Extremity Injury ED Provider: iWll Knapp Dx/Rx/DC Orders Clinical Impression: Fall, Anxiety, [...] pain you should rotate Tylenol and ibuprofen [id number]-[id number] when you do this you can take something every 3 hours with max dose of Tylenol in 24 hours 3200 mg. You need to follow-up with Dr. Brito. Your CT didshow a compression fracture of your L4 vertebrae. Return with worsening symptoms or other concerns Print Language: Brazilian Disposition Disposition: Home, Self Care What to do if you have Problems For any increased pain, shortness of breath, bleeding, nausea or vomiting, chestpain, or any unexpected problems, contact your Primary Care Provider. Call [facility] ([phone]) or report to the closest Emergency Room. Call 911 if necessary. 03/18/25 1248 <Electronically signed by Will Knapp DO> Cosigner Signature (if applicable): CC: Dr. Chance Kolb MD ~ Signed [facility] Work Phone: Evaluation note* Diagnosis Closed nondisplaced fracture of neck of fifth metacarpal bone of left hand, initial encounter- Primary documented in this encounter [facility] note* Diagnosis Closed nondisplaced fracture of neck of fifth metacarpal bone of left hand with routine healing, subsequent encounter- Primary [facility] this encounter [facility]* Diagnosis Closed nondisplaced fracture of neck of fifth metacarpal bone of left hand, initial encounter [facility]* Diagnosis Acquired hypothyroidism- Primary Unspecified hypothyroidism Shoulder pain, unspecified chronicity, unspecified laterality Left knee pain, unspecified chronicity Hypokalemia Hypopotassemia Numbness of right hand [facility]* Diagnosis Exposure to COVID-19 virus- Primary documented [facility] this [facility]* Diagnosis APPOINTMENT CANCELLED- Primary Contact with and (suspected) exposure to covid-19 documented [facility] this encounter [facility]* Diagnosis Encounter for gynecological examination (general) (routine) without abnormal findings- Primary Encounter for screening mammogram for breast cancer Age-related osteoporosis without current pathological fracture Senile osteoporosis documented in this encounter [facility] note* Diagnosis Encounter for screening mammogram for breast cancer documented [facility]* Diagnosis Age-related osteoporosis without current pathological fracture Senile osteoporosis documented in this encounter [facility] note* Diagnosis Acquired hypothyroidism- Primary Unspecified hypothyroidism [...] esophagitis Esophageal reflux documented in this encounter [facility] noteNo assessment information availableWAshtabula [facility] Work Phone: Evaluation note* Diagnosis Onset Date Resolution Status Acute confusion acute Slurred speech acute Weakness acute [facility] Work Phone: Evaluation note* Diagnosis Onset Date Resolution Status Acute confusion acute Hypokalemia acute Slurred speech acute Toxic metabolic encephalopathy acute Weakness acute [facility] Work Phone: Evaluation note* Diagnosis Urinary tract infection without hematuria, site unspecified- Primary documented in this encounter [facility] note* Diagnosis Acute cystitis with hematuria- Primary Acute cystitis documented in this encounter [facility] note* Diagnosis Acute cystitis with hematuria- Primary Acute cystitis documented in this encounter [facility] note* Diagnosis Acquired hypothyroidism Unspecified hypothyroidism Raynaud's disease without gangrene [facility] this [facility]* Diagnosis Numbness and tingling in right hand Disturbance of skin sensation [facility] this [facility]* Diagnosis Closed fracture of multiple ribs of right side with routine healing, subsequent encounter- Primary Chronic right shoulder pain Pain in joint, shoulder region documented in this encounter [facility] note* Diagnosis Acquired hypothyroidism- Primary Unspecified hypothyroidism Hypercholesteremia Pure hypercholesterolemia Rib pain on right side Chest pain, unspecified Chronic right shoulder pain Pain in joint, shoulder region Vitamin D deficiency Unspecified vitamin D deficiency Long-term current use of mesalamine Encounter for long-term current use of medication documented [facility] this [facility]* Diagnosis Encounter for screening mammogram for breast cancer- Primary documented in this encounter [facility] note* Diagnosis Nodule of finger of right hand- Primary Thumb joint locking Unspecified derangement of hand joint Other headache syndrome Gastroesophageal reflux disease without esophagitis Esophageal reflux Raynaud's disease without gangrene documented [facility] this [facility]* Diagnosis Abrasion- Primary Abrasion or friction burn of other, multiple, and unspecified sites, without mention of infection Visit for suture removal Encounter for removal of sutures documented in this encounter [facility] note* Diagnosis Encounter for screening mammogram for breast cancer documented in this encounter [facility] note* Diagnosis Acquired hypothyroidism- Primary Unspecified hypothyroidism Numbness and tingling in right hand Disturbance of skin sensation Raynaud's disease without gangrene Gastroesophageal reflux disease without esophagitis Esophageal reflux Vitamin D deficiency Unspecified vitamin D deficiency Hypercholesteremia Pure hypercholesterolemia Crohn's disease of large intestine without complication (HCC) Regional enteritis of large intestine Encounter for long-term current use of medication documented in this encounter [facility] note* Diagnosis Urinary tract infection without hematuria, site unspecified- Primary documented in this encounter [facility] note* Diagnosis Right hand pain- Primary Pain in soft tissues of limb [facility]* Diagnosis Mass of finger of right hand Localized superficial swelling, mass, or lump Rupture of flexor pollicis longus muscle [facility]* Diagnosis Mass of finger of right hand Localized superficial swelling, mass, or lump Rupture of flexor pollicis longus muscle documented [facility] this [facility]* Diagnosis Mass of finger of right hand Localized superficial swelling, mass, or lump Rupture of flexor pollicis longus muscle documented in this [facility]* Diagnosis Rupture of flexor pollicis longus muscle Retained orthopedic hardware documented [facility] this [facility]* Diagnosis Acute bilateral low back pain without sciatica- Primary Age-related osteoporosis without current pathological fracture Senile osteoporosis Gastroesophageal reflux disease without esophagitis Esophageal reflux Crohn's disease of large intestine without complication (HCC) Regional enteritis of large intestine Acquired hypothyroidism Unspecified hypothyroidism Depression, unspecified depression type Anxiety Anxiety state, unspecified Encounter for screening mammogram for breast cancer documented in this encounter [facility] note* Diagnosis Rupture of flexor pollicis longus muscle- Primary Retained orthopedic hardware Mass of finger of right hand Localized superficial swelling, mass, or lump documented in this encounter [facility] note* Diagnosis Encounter for screening mammogram for breast cancer documented in this encounter [facility] note* Diagnosis GERD (gastroesophageal reflux disease)- Primary [...] intractable tension-type headache documented in this encounter [facility] note* Diagnosis GERD (gastroesophageal reflux disease)- Primary [...] pain without sciatica documented in this encounter [facility] note* Diagnosis GERD (gastroesophageal reflux disease)- Primary [...] Chest pain, unspecified documented [facility] encounter [facility]* Diagnosis GERD (gastroesophageal reflux disease)- Primary [...] Chest pain, unspecified documented in this encounter [facility] note* Diagnosis GERD (gastroesophageal reflux disease)- Primary [...] reflux Acute cough documented in this encounter [facility] note* Diagnosis GERD (gastroesophageal reflux disease)- Primary [...] Chronic cough Cough documented in this encounter [facility] note* Diagnosis GERD (gastroesophageal reflux disease)- Primary [...] Pain in limb [facility] in [facility] encounter [facility]* Diagnosis GERD (gastroesophageal reflux disease)- Primary [...] Abnormality of gait documented in this encounter [facility] note* Diagnosis GERD (gastroesophageal reflux disease)- Primary [...] hematuria, site unspecified documented in this encounter [facility] note* Diagnosis GERD (gastroesophageal reflux disease)- Primary [...] site unspecified- Primary documented in this encounter [facility] note* Diagnosis GERD (gastroesophageal reflux disease)- Primary [...] Abnormality of gait documented in this encounter [facility] note* Diagnosis GERD (gastroesophageal reflux disease)- Primary [...] use of medication [facility]* Diagnosis GERD (gastroesophageal reflux disease)- Primary [...] Abnormality of gait documented in this encounter [facility]* Diagnosis GERD (gastroesophageal reflux disease)- Primary [...] hematuria, site unspecified documented in this encounter [facility]* Diagnosis GERD (gastroesophageal reflux disease)- Primary [...] Abnormality of gait documented in this encounter [facility] note* Diagnosis GERD (gastroesophageal reflux disease)- Primary [...] Asymptomatic postmenopausal status documented in this encounter [facility] note* Diagnosis GERD (gastroesophageal reflux disease)- Primary [...] involving urinary system documented in this encounter [facility] note* Diagnosis GERD (gastroesophageal reflux disease)- Primary [...] disease without gangrene documented in this encounter [facility] note* Diagnosis GERD (gastroesophageal reflux disease)- Primary [...] fracture Senile osteoporosis documented [facility] this encounter [facility]* Diagnosis GERD (gastroesophageal reflux disease)- Primary [...] Other abnormal glucose documented in this encounter [facility] note* Diagnosis GERD (gastroesophageal reflux disease)- Primary [...] Other screening mammogram documented in this encounter [facility] Discharge instructionsAdditional Instructions Use prescriptions as prescribed use the Endocet and Zofran for severe pain and sure that you use the Zofran with the Endocet as this will upset your stomach. For mild to moderate pain you should rotate Tylenol and ibuprofen [id number] when you do this you can take something every 3 hours with max dose of Tylenol in 24 hours 3200 mg. You need to follow-up with Dr. Brito. Your CT did show a compression fracture of your L4 vertebrae. Return with worsening symptoms or other concernsWAshtabula County Medical Center Work Phone: Reason for referral (narrative)* Diagnostic Procedure Only (Routine) - Pending Review Specialty Diagnoses / Procedures Referred By Faisal alvarado Referred To Contact XR IMAGING Diagnoses Closed nondisplaced fracture of neck of fifth metacarpal bone of left hand, initial encounter Procedures XR HAND GENERAL 3V PA/LAT/OBL LEFT RADEX HAND MINIMUM 3 VIEWS Jersey Stern V, DO [address] [place] [address] Xr Imaging Referral ID Status Reason Start Date Expiration Date Visits Requested Visits Authorized [id number] Pending Review Auto-Generat ed Referral 12/27/2021 01/26/2023 1 1 [facility] for referral (narrative)* Diagnostic Procedure Only (Routine) - Closed Specialty Diagnoses / Procedures Referred By Faisal alvarado Referred To Contact XR IMAGING Diagnoses Closed nondisplaced fracture of neck of fifth metacarpal bone of left hand, initial encounter Procedures XR HAND GENERAL 3V PA/LAT/OBL LEFT RADEX HAND MINIMUM 3 VIEWS Jersey Stern V DO [address] [place] [address] Xr Imaging Referral ID Status Reason Start Date Expiration Date V isits Requested Visits Authorized [id number] Closed Auto-Generate d Referral 12/27/2021 01/26/2023 1 1 [facility] for referral (narrative)* Diagnostic Procedure Only (Routine) - Pending Review Specialty Diagnoses / Procedures Referred By Faisal t Referred To Contact BR IMAGING Diagnoses Encounter for screening mammogram for breast cancer Procedures OZIEL SCREENING SCREENING MAMMOGRAPHY BI 2-VIEW BREAST INC CAD Essie Man, MIMI.[place] [address] Br Imaging [address] [place] [address] Referral ID Status Reason Start Date Expiration Date Visits Requested Visits Authorized [id number] Pending Review Auto-Generat ed Referral 03/20/2022 04/19/2023 1 1 [facility] for referral (narrative)* Diagnostic Procedure Only (Routine) - Closed Specialty Diagnoses / Procedures Referred By Contac t Referred To Contact BR IMAGING Diagnoses Encounter for screening mammogram for breast cancer Procedures OZIEL SCREENING SCREENING MAMMOGRAPHY BI 2-VIEW BREAST INC CAD Chance Kolb MD [address] [place] [address] [facility] Imaging [address] [place] [address] Referral ID Status Reason Start Date Expiration Date V isits Requested Visits Authorized [id number] Closed Auto-Generate d Referral 08/02/2021 09/01/2022 1 1 [facility] for referral (narrative)* Diagnostic Procedure Only (Routine) - Closed Specialty Diagnoses / Procedures Referred By Alyssaac t Referred To Contact XR IMAGING Diagnoses Rib pain on right side Procedures XR RIBS/CHEST 3V AP RIB/OBLS/CXR RIGHT RADEX RIBS UNI W/POSTEROANT CH MINIMUM 3 VIEWS Chance Kolb MD [address] [place] [address] Xr Imaging Referral ID Status Reason Start Date Expiration Date V isits Requested Visits Authorized [id number] Closed Auto-Generate d Referral 11/16/2022 12/16/2023 1 1 [facility] for referral (narrative)* Diagnostic Procedure Only (Routine) - Pending Review Specialty Diagnoses / Procedures Referred By Contac t Referred To Contact BR IMAGING Diagnoses Encounter for screening mammogram for breast cancer Procedures OZIEL SCREENING SCREENING MAMMOGRAPHY BI 2-VIEW BREAST INC Essie Jean-Baptiste APRN.CNP [address] [place] [address] [facility] Imaging [address] [place] [address] Referral ID Status Reason Start Date Expiration Date Visits Requested Visits Authorized [id number] Pending Review Auto-Generat ed Referral 03/25/2023 04/23/2024 1 1 [facility] for referral (narrative)* Diagnostic Procedure Only (Routine) - Closed Specialty Diagnoses / Procedures Referred By Contac t Referred To Contact BR IMAGING Diagnoses Encounter for screening mammogram for breast cancer Procedures OZIEL SCREENING SCREENING MAMMOGRAPHY BI 2-VIEW BREAST INC CAD Essie Man APRN.PROP DRAWER [address] [place] [address] [facility] Imaging [address] [place] [address] Referral ID Status Reason Start Date Expiration Date V isits Requested Visits Authorized [id number] Closed Auto-Generate d Referral 03/20/2022 04/19/2023 1 1 [facility] for referral (narrative)* Diagnostic Procedure Only (Routine) - Authorized Specialty Diagnoses / Procedures Referred By Contac t Referred To Contact BR IMAGING Diagnoses Encounter for screening mammogram for breast cancer Procedures OZIEL SCREENING SCREENING MAMMOGRAPHY BI 2-VIEW BREAST INC CAD Malachi Lilly APRN.PROP DRAWER [address] [place] [address] Br Imaging [address] [place] [address] Referral ID Status Reason Start Date Expiration Date Visits Requested Visits Authorized [id number] Authorized Auto-Generat ed Referral 12/31/2023 01/29/2025 1 1 * Diagnostic Procedure Only (Routine) - Closed Specialty Diagnoses / Procedures Referred By Contac t Referred To Contact XR IMAGING Diagnoses Acute bilateral low back pain without sciatica Procedures XR LUMBAR GENERAL 3V AP/LAT/L5-S1 RADEX SPINE LUMBOSACRAL 2/3 VIEWS Malachi Lilly APRN.PROP DRAWER [address] [place] [address] [place] [address] Referral ID Status Reason Start Date Expiration Date V isits Requested Visits Authorized [id number] Closed Auto-Generate d Referral 12/31/2023 01/29/2025 1 1 [facility] for referral (narrative)* Diagnostic Procedure Only (Routine) - Closed Specialty Diagnoses / Procedures Referred By Contac t Referred To Contact XR IMAGING Diagnoses Acute bilateral low back pain without sciatica Procedures XR LUMBAR GENERAL 3V AP/LAT/L5-S1 RADEX SPINE LUMBOSACRAL 2/3 VIEWS Malachi Lilly APRN.PROP DRAWER [facility] [place] [address] [place] [address] Referral ID Status Reason Start Date Expiration Date V isits Requested Visits Authorized [id number] Closed Auto-Generate d Referral 12/31/2023 01/29/2025 1 1 [facility] for referral (narrative)* Diagnostic Procedure Only (Urgent) - Closed Specialty Diagnoses / Procedures Referred By Contac t Referred To Contact XR IMAGING Diagnoses Fall from bed, initial encounter Rib injury Rib pain on right side Procedures XR RIBS/CHEST 3V AP RIB/OBLS/CXR RIGHT RADEX RIBS UNI W/POSTEROANT CH MINIMUM 3 VIEWS Talya Howell APRN.PROP DRAWER [address] [place] [address] [place] [address] Referral ID Status Reason Start Date Expiration Date V isits Requested Visits Authorized [id number] Closed Auto-Generate d Referral 09/03/2023 10/02/2024 1 1 [facility] for referral (narrative)* Diagnostic Procedure Only (Routine) - Closed Specialty Diagnoses / Procedures Referred By Contac t Referred To Contact XR IMAGING Diagnoses Rib pain on right side Procedures XR RIBS/CHEST 3V AP RIB/OBLS/CXR RIGHT RADEX RIBS UNI W/POSTEROANT CH MINIMUM 3 VIEWS Chance Kolb MD [address] [place] [address] [place] [address] Referral ID Status Reason Start Date Expiration Date V isits Requested Visits Authorized [id number] Closed Auto-Generate d Referral 11/16/2022 12/16/2023 1 1 [facility] for referral (narrative)* Diagnostic Procedure Only (Urgent) - Closed Specialty Diagnoses / Procedures Referred By Contac t Referred To Contact XR IMAGING Diagnoses Fall, initial encounter Left hand pain Procedures XR HAND GENERAL 3V PA/LAT/OBL LEFT RADEX HAND MINIMUM 3 VIEWS Azucena Khan APRN.PROP DRAWER [address] [place] [address] [place] [address] Referral ID Status Reason Start Date Expiration Date V isits Requested Visits Authorized [id number] Closed Auto-Generate d Referral 11/25/2021 12/25/2022 1 1 * Diagnostic Procedure Only (Urgent) - Closed Specialty Diagnoses / Procedures Referred By Contac t Referred To Contact XR IMAGING Diagnoses Fall, initial encounter Rib pain on right side Procedures XR RIBS/CHEST 3V AP RIB/OBLS/CXR RIGHT RADEX RIBS UNI W/POSTEROANT CH MINIMUM 3 VIEWS Azucena Khan APRN.PROP DRAWER [address] [place] [id number] [place] [address] Referral ID Status Reason Start Date Expiration Date V isits Requested Visits Authorized [id number] Closed Auto-Generate d Referral 11/25/2021 12/25/2022 1 [facility] Diagnostic Procedure Only (Routine) - Closed Specialty Diagnoses / Procedures Referred By Contac t Referred To Contact XR IMAGING Diagnoses Asymptomatic postmenopausal status Procedures DXA-AXIAL SKELETON DXA BONE DENSITY STUDY / SITES AXIAL Chance Moulton MD [address] [place] [address] [place] [address] Referral ID Status Reason Start Date Expiration Date V isits Requested Visits Authorized [id number] Closed Auto-Generate d Referral 06/24/2024 07/24/2025 1 1 [facility] for referral (narrative)No reason for referral information availableWAshtabula County Medical Center Work Phone: Reason for visit Narrative* Diagnostic Procedure Only (Routine) - Closed Specialty Diagnoses / Procedures Referred By Contac t Referred To Contact XR IMAGING Diagnoses Closed nondisplaced fracture of neck of fifth metacarpal bone of left hand, initial encounter Procedures XR HAND GENERAL 3V PA/LAT/OBL LEFT RADEX HAND MINIMUM 3 VIEWS Jersey Stern V, DO [address] [place] [address] Xr Imaging Referral ID Status Reason Start Date Expiration Date V isits Requested Visits Authorized [id number] Closed Auto-Generate d Referral 12/27/2021 01/26/2023 1 1 [facility] for visit Narrative* Diagnostic Procedure Only (Routine) - Closed Specialty Diagnoses / Procedures Referred By Contac t Referred To Contact BR IMAGING Diagnoses Encounter for screening mammogram for breast cancer Procedures OZIEL SCREENING SCREENING MAMMOGRAPHY BI 2-VIEW BREAST INC Chance Dent MD [address] [place] [address] [facility] [address] [place] [address] Referral ID Status Reason Start Date Expiration Date V isits Requested Visits Authorized [id number] Closed Auto-Generate d Referral 08/02/2021 09/01/2022 1 1 [facility] for visit Narrative* Diagnostic Procedure Only (Routine) - Closed Specialty Diagnoses / Procedures Referred By Contac t Referred To Contact [facility] Diagnoses Encounter for screening mammogram for breast cancer Procedures OZIEL SCREENING SCREENING MAMMOGRAPHY BI 2-VIEW BREAST INC CAD Essie Man AIR TWISTER WINDER.PROP DRAWER [address] [place] [address] [facility] [address] [place] [address] Referral ID Status Reason Start Date Expiration Date V isits Requested Visits Authorized [id number] Closed Auto-Generate d Referral 03/20/2022 04/19/2023 1 1 [facility] for visit Narrative* Diagnostic Procedure Only (Routine) - Closed Specialty Diagnoses / Procedures Referred By Faisal t Referred To Contact [facility] Diagnoses Encounter for screening mammogram for breast cancer Procedures OZIEL SCREENING SCREENING MAMMOGRAPHY BI 2-VIEW BREAST INC CAD Malachi Lilly, AIR TWISTER WINDER.PROP DRAWER [address] [place] [address] [facility] [address] [place] [address] Referral ID Status Reason Start Date Expiration Date V isits Requested Visits Authorized [id number] Closed Auto-Generate d Referral 12/31/2023 01/29/2025 1 1 [facility] for visit Narrative* Diagnostic Procedure Only (Routine) - Closed Specialty Diagnoses / Procedures Referred By Faisal t Referred To Contact [facility] IMAGING Diagnoses Acute bilateral low back pain without sciatica Procedures XR LUMBAR GENERAL 3V AP/LAT/L5-S1 RADEX SPINE LUMBOSACRAL 2/3 VIEWS Malachi Lilly [employer] TWISTER WINDER.PROP DRAWER [address] [place] [address] [place] [address] Referral ID Status Reason Start Date Expiration Date V isits Requested Visits Authorized [id number] Closed Auto-Generate d Referral 12/31/2023 01/29/2025 1 1 [facility] for visit Narrative* Diagnostic Procedure Only (Urgent) - Closed Specialty Diagnoses / Procedures Referred By Alyssaac t Referred To Contact [facility] IMAGING Diagnoses Fall from bed, initial encounter Rib injury Rib pain on right side Procedures XR RIBS/CHEST 3V AP RIB/OBLS/CXR RIGHT RADEX RIBS UNI W/POSTEROANT CH MINIMUM 3 VIEWS Talya Howell, AIR TWISTER WINDER.PROP DRAWER [address] [place] [address] [place] [address] Referral ID Status Reason Start Date Expiration Date V isits Requested Visits Authorized [id number] Closed Auto-Generate d Referral 09/03/2023 10/02/2024 1 1 [facility] for visit Narrative* Diagnostic Procedure Only (Routine) - Closed Specialty Diagnoses / Procedures Referred By Contac t Referred To Contact XR IMAGING Diagnoses Rib pain on right side Procedures XR RIBS/CHEST 3V AP RIB/OBLS/CXR RIGHT RADEX RIBS UNI W/POSTEROANT CH MINIMUM 3 VIEWS Chance Kolb MD [address] [place] [address] [place] [address] Referral ID Status Reason Start Date Expiration Date V isits Requested Visits Authorized [id number] Closed Auto-Generate d Referral 11/16/2022 12/16/2023 1 1 [facility] for visit Narrative* Diagnostic Procedure Only (Urgent) - Closed Specialty Diagnoses / Procedures Referred By Contac t Referred To Contact XR IMAGING Diagnoses Fall, initial encounter Left hand pain Procedures XR HAND GENERAL 3V PA/LAT/OBL LEFT RADEX HAND MINIMUM 3 VIEWS Azucena Khan, AIR TWISTER WINDER.PROP DRAWER [address] [place] [address] [place] [address] Referral ID Status Reason Start Date Expiration Date V isits Requested Visits Authorized [id number] Closed Auto-Generate d Referral 11/25/2021 12/25/2022 1 1 [facility] for visit Narrative* Diagnostic Procedure Only (Routine) - Closed Specialty Diagnoses / Procedures Referred By Contac t Referred To Contact XR IMAGING Diagnoses Asymptomatic postmenopausal status Procedures DXA-AXIAL SKELETON DXA BONE DENSITY STUDY / SITES AXIAL SKEL Chance Kolb MD [address] [place] [address] [place] [address] Referral ID Status Reason Start Date Expiration Date V isits Requested Visits Authorized [id number] Closed Auto-Generate d Referral 06/24/2024 07/24/2025 [facility] Procedure Only (Routine) - Closed Specialty Diagnoses / Procedures Referred By Faisal t Referred To Contact [facility] Diagnoses Encounter for screening mammogram for malignant neoplasm of breast Procedures OZIEL SCREENING W GABRIEL SCREENING DIGITAL BREAST TOMOSYNTHESIS BI SCREENING MAMMOGRAPHY BI 2-VIEW BREAST INC LUCIANO Nguyễn Stringer, AIR TWISTER WINDER.[facility] [employer] [address] [place] [address] Phone: tel: fax: [facility] [address] [place] [address] Referral ID Status Reason Start Date Expiration Date V isits Requested Visits Authorized [id number] Closed Auto-Generate d Referral 05/04/2025 06/03/2026 1 1 [facility] Health Concerns Infection Onset Date Last Indicated [...] surgery on wrist January 06, 2025 1:39pm Kodd-oqpo-oelnjxfaabrjsne January 06 1:39pm S/P ORIF (open reduction [...] of surgery on wrist February 02 2:00pm Paus-smzx-galitzhzkvtcrum February 02, 2025 2:00pm S/P ORIF (open [...] surgery on wrist January 06, 2025 1:39pm Wjuv-dlti-xqemtjekktyvoip January 06 1:39pm S/P ORIF (open reduction [...] of surgery on wrist February 02 2:00pm Igpf-slpa-fedsivjtpgynnlw February 02, 2025 2:00pm S/P ORIF (open [...] on wrist March 02, 2 025 1:30pm Krvw-srba-smvplwysvcsgfaq March 02 1:30pm S/P ORIF (open reduction [...] surgery on wrist January 06, 2025 1:39pm Haqj-pyhh-vbeohaqyjjikies January 06 1:39pm S/P ORIF (open reduction [...] of surgery on wrist February 02 2:00pm Nsqy-wobr-rupnzdkzruyegzm February 02, 2025 2:00pm S/P ORIF (open [...] on wrist March 02 2 025 1:30pm Qdti-nhut-lmdsgqekbesocgb March 02 1:30pm S/P ORIF (open reduction [...] of surgery on wrist March 09 12:44pm Abnm-rxda-obuvflanwgkcxjp March 09, 2025 12:44pm S/P ORIF (open [...] surgery on wrist January 06, 2025 1:39pm Bpae-tnyl-abfuudwpfedavbx January 06 1:39pm S/P ORIF (open reduction [...] of surgery on wrist February 02 2:00pm Rhil-hluc-hqdknzbyfsrzkdi February 02, 2025 2:00pm S/P ORIF (open [...] surgery on wrist March 02 025 1:30pm Eyta-wgnx-eylngeiejcxomfv March 02 1:30pm S/P ORIF (open reduction [...] of surgery on wrist March 30 1:15pm Wnha-tmbz-zoohtifqslyocsv March 30 1:15pm S/P ORIF (open reduction [...] of surgery on wrist February 02 2:00pm Tgmo-zvad-fswvcossjutsyjc February 02, 2025 2:00pm S/P ORIF (open [...] surgery on wrist March 02 025 1:30pm Iaae-kuvn-yxzrfdreyzhlrzb March 02 1:30pm S/P ORIF (open reduction [...] on wrist March 30 2 025 1:15pm Ramz-cqif-cdgwdechqcjbwwb March 30 1:15pm S/P ORIF (open reduction [...] surgery on wrist May 04, 2025 1:00pm Asby-ccui-mwoyndoncegdaeu May 04, 025 1:00pm S/P ORIF (open [...] surgery on wrist March 02 025 1:30pm Ydlw-rjjy-wlpgezmwsmxkvcw March 02 1:30pm S/P ORIF (open reduction [...] surgery on wrist March 30 025 1:15pm Eigx-xbwd-juwkdveupedawpw March 30 1:15pm S/P ORIF (open reduction [...] surgery on wrist May 04, 2025 1:00pm Vdwu-yhwe-ahbnmeudvkuvede May 04 1:00pm S/P ORIF (open reduction [...] of surgery on wrist May 252024 12:45pm Fqie-rvhg-kzecmnrazccedho May 12:45pm S/P ORIF (open reduction internal [...] No May 27, 2022 10:49am Power of Sustainability Director No May 10:49am Advance Directive Response Recorded Date/ Time Advance Directives No September 30, 2016 11:33am Living Will No May 27, 2022 9:49am Power of Sustainability Director No May 9:49am Advance Directive Response Recorded Date/ Time Advance Directives No September 30, 2016 11:33am Living Will No September 07, 2 022 1:34am Power of Sustainability Director No September 07, 2022 1:34am Advance Directive Response Recorded Date/ Time Advance Directives No September 30, 2016 12:33pm Living Will No April 29 1:32pm Power of Sustainability Director No April 29, 2 023 1:32pm Advance Directive Response Recorded Date/ Time Do you have a Healthcare Power of Sustainability Director? No January 01, 2025 8:13pm Advance Directives No September 30, 2016 12:33pm Advance Directive Response Recorded Date/ Time Do you have a Healthcare Power of Sustainability Director? No January 01, 2025 8:13pm Do you have a Healthcare Power of Sustainability Director? No March 13, 2025 7:37pm Advance Directives No September 30, 2016 12:33pm Advance Directive Response Recorded Date/ Time Do you have a Healthcare Power of Sustainability Director? No January 01, 2025 8:13pm Do you have a Healthcare Power of Sustainability Director? No March 13, 2025 7:37pm Do you have a Healthcare Power of Sustainability Director? No March 18, 2025 10:06am Advance Directives No September 30, 2016 12:33pm Advance Directive Response Recorded Date/ Time Do you have a Healthcare Power of Sustainability Director? No March 13, 2025 7:37pm Do you have a Healthcare Power of Sustainability Director? No March 18, 2025 10:06am Advance Directives [...] joint locking Procedures CONSULT TO ORTHOPAEDICS OFFICE/OUTPATIENT [facility] 60-74 MINUTES Malachi Lilly APRN.PROP DRAWER [address] [place] [address] Referral ID Status Reason Start Date Expiration Date Visits Requested Visits Authorized [id number] Authorized PCP Requested Referral 03/26/2023 03/25/2024 1 1 Specialty Diagnoses / Procedures Referred By Contac t Referred To Contact Radiology Diagnoses Mass of finger of right hand Rupture of flexor pollicis longus muscle Procedures MR wrist right wo IV contrast Thea Vail MD 1 [facility] [address] [place] [address] Referral ID Status Reason Start Date Expiration Date V isits Requested Visits Authorized [id number] Pending Review 08/12/2023 08/11/2024 1 1 Specialty Diagnoses / Procedures Referred By Contac t Referred To Contact Radiology Diagnoses Mass of finger of right hand Rupture of flexor pollicis longus muscle Procedures MR hand right wo IV contrast Thea Vail MD 1 [facility] [address] [place] [address] Referral ID Status Reason Start Date Expiration Date V isits Requested Visits Authorized [id number] Pending Review 08/12/2023 08/11/2024 1 1 Referral ID Status Reason Start Date Expiration Date Visits Re quested Visits Authorized [id number] Closed 08/12/2023 08/11/2024 1 1 Referral ID Status Reason Start Date Expiration Date Visits Re quested Visits Authorized [id number] Closed 08/12/2023 08/11/2024 1 1 Specialty Diagnoses / Procedures Referred By Contac t Referred To Contact [facility] Diagnoses Gait instability Procedures CONSULT TO PHYSICAL THERAPY PHYSICAL THERAPY EVALUATION HIGH COMPLEX 45 MINS Chance Kolb MD [address] [place] [address] [address] [facility] [address] [address] Referral ID Status Reason Start Date Expiration Date Visits Requested Visits Authorized [id number] Authorized PCP Requested Referral Auto-Generate d Referral 4 06/24/2025 99 99 Specialty Diagnoses / Procedures Referred By Contac t Referred To Contact XR IMAGING Diagnoses Asymptomatic postmenopausal status Procedures DXA-AXIAL SKELETON DXA BONE DENSITY STUDY 1/> SITES AXIAL SKEL Chance Kolb MD [address] [place] [address] X[facility] Referral ID Status Reason Start Date Expiration Date Visits Requested Visits Authorized [id number] Authorized Auto-Generat ed Referral 4 07/24/2025 1 1 Specialty Diagnoses / Procedures Referred By Contac t Referred To Contact [facility] Diagnoses Degeneration of intervertebral disc of lumbar region with discogenic back pain Lumbar spondylosis Chronic midline low back pain without sciatica Procedures CONSULT TO PHYSICAL THERAPY PHYSICAL THERAPY EVALUATION HIGH COMPLEX 45 MINS Chance Kolb MD [address] [place] [address] [address] [facility] [address] [address] Referral ID Status Reason Start Date Expiration Date Visits Requested Visits Authorized [id number] Authorized PCP Requested Referral Auto-Generate d Referral 4 06/24/2025 99 99 Summary Purpose Additional Source Comments Source Comments (unrecognize d section and content) In the event this informatio n is protected by the Federal Confidentiality of Alcohol and Drug Abuse Patient Records regulations: The Federal rules restrict any use of the information to criminally investigate or prosecute any alcohol or drug abuse patient.[facility] Center[facility] the event this information is protected by the Federal Confidentiality of Alcohol and Drug Abuse Patient Records regulations: The Federal rules restrict any use of the information to criminally investigate or prosecute any alcohol or drug abuse patient.[facility] CenterIn the event this information is protected by the Federal Confidentiality of Alcohol and Drug Abuse Patient Records regulations: The Federal rules restrict any use of the information to criminally investigate or prosecute any alcohol or drug abuse patient.[facility] CenterIn the event this information is protected by the Federal Confidentiality of Alcohol and Drug Abuse Patient Records regulations: The Federal rules restrict any use of the information to criminally investigate or prosecute any alcohol or drug abuse patient.[facility] CenterIn the event this information is protected by the Federal Confidentiality of Alcohol and Drug Abuse Patient Records regulations: The Federal rules restrict any use of the information to criminally investigate or prosecute any alcohol or drug abuse patient.[facility] CenterIn the event this information is protected by the Federal Confidentiality of Alcohol and Drug Abuse Patient Records regulations: The Federal rules restrict any use of the information to criminally investigate or prosecute any alcohol or drug abuse patient.[facility] CenterIn the event this information is protected by the Federal Confidentiality of Alcohol and Drug Abuse Patient Records regulations: The Federal rules restrict any use of the information to criminally investigate or prosecute any alcohol or drug abuse patient.[facility] CenterIn the event this information is protected by the Federal Confidentiality of Alcohol and Drug Abuse Patient Records regulations: The Federal rules restrict any use of the information to criminally investigate or prosecute any alcohol or drug abuse patient.[facility] CenterIn the event this information is protected by the Federal Confidentiality of Alcohol and Drug Abuse Patient Records regulations: The Federal rules restrict any use of the information to criminally investigate or prosecute any alcohol or drug abuse patient.[facility] CenterIn the event this information is protected by the Federal Confidentiality of Alcohol and Drug Abuse Patient Records regulations: The Federal rules restrict any use of the information to criminally investigate or prosecute any alcohol or drug abuse patient.[facility] CenterIn the event this information is protected by the Federal Confidentiality of Alcohol and Drug Abuse Patient Records regulations: The Federal rules restrict any use of the information to criminally investigate or prosecute any alcohol or drug abuse patient.[facility] CenterIn the event this information is protected by the Federal Confidentiality of Alcohol and Drug Abuse Patient Records regulations: The Federal rules restrict any use of the information to criminally investigate or prosecute any alcohol or drug abuse patient.[facility] CenterIn the event this information is protected by the Federal Confidentiality of Alcohol and Drug Abuse Patient Records regulations: The Federal rules restrict any use of the information to criminally investigate or prosecute any alcohol or drug abuse patient.[facility] CenterIn the event this information is protected by the Federal Confidentiality of Alcohol and Drug Abuse Patient Records regulations: The Federal rules restrict any use of the information to criminally investigate or prosecute any alcohol or drug abuse patient.[facility] CenterIn the event this information is protected by the Federal Confidentiality of Alcohol and Drug Abuse Patient Records regulations: The Federal rules restrict any use of the information to criminally investigate or prosecute any alcohol or drug abuse patient.[facility] CenterIn the event this information is protected by the Federal Confidentiality of Alcohol and Drug Abuse Patient Records regulations: The Federal rules restrict any use of the information to criminally investigate or prosecute any alcohol or drug abuse patient.[facility] CenterIn the event this information is protected by the Federal Confidentiality of Alcohol and Drug Abuse Patient Records regulations: The Federal rules restrict any use of the information to criminally investigate or prosecute any alcohol or drug abuse patient.[facility] CenterIn the event this information is protected by the Federal Confidentiality of Alcohol and Drug Abuse Patient Records regulations: The Federal rules restrict any use of the information to criminally investigate or prosecute any alcohol or drug abuse patient.[facility] CenterIn the event this information is protected by the Federal Confidentiality of Alcohol and Drug Abuse Patient Records regulations: The Federal rules restrict any use of the information to criminally investigate or prosecute any alcohol or drug abuse patient.[facility] CenterIn the event this information is protected by the Federal Confidentiality of Alcohol and Drug Abuse Patient Records regulations: The Federal rules restrict any use of the information to criminally investigate or prosecute any alcohol or drug abuse patient.[facility] CenterIn the event this information is protected by the Federal Confidentiality of Alcohol and Drug Abuse Patient Records regulations: The Federal rules restrict any use of the information to criminally investigate or prosecute any alcohol or drug abuse patient.[facility] CenterIn the event this information is protected by the Federal Confidentiality of Alcohol and Drug Abuse Patient Records regulations: The Federal rules restrict any use of the information to criminally investigate or prosecute any alcohol or drug abuse patient.[facility] CenterIn the event this information is protected by the Federal Confidentiality of Alcohol and Drug Abuse Patient Records regulations: The Federal rules restrict any use of the information to criminally investigate or prosecute any alcohol or drug abuse patient.[facility] CenterIn the event this information is protected by the Federal Confidentiality of Alcohol and Drug Abuse Patient Records regulations: The Federal rules restrict any use of the information to criminally investigate or prosecute any alcohol or drug abuse patient.[facility] CenterIn the event this information is protected by the Federal Confidentiality of Alcohol and Drug Abuse Patient Records regulations: The Federal rules restrict any use of the information to criminally investigate or prosecute any alcohol or drug abuse patient.[facility] CenterIn the event this information is protected by the Federal Confidentiality of Alcohol and Drug Abuse Patient Records regulations: The Federal rules restrict any use of the information to criminally investigate or prosecute any alcohol or drug abuse patient.[facility] CenterIn the event this information is protected by the Federal Confidentiality of Alcohol and Drug Abuse Patient Records regulations: The Federal rules restrict any use of the information to criminally investigate or prosecute any alcohol or drug abuse patient.[facility] CenterIn the event this information is protected by the Federal Confidentiality of Alcohol and Drug Abuse Patient Records regulations: The Federal rules restrict any use of the information to criminally investigate or prosecute any alcohol or drug abuse patient.[facility] CenterIn the event this information is protected by the Federal Confidentiality of Alcohol and Drug Abuse Patient Records regulations: The Federal rules restrict any use of the information to criminally investigate or prosecute any alcohol or drug abuse patient.[facility] CenterIn the event this information is protected by the Federal Confidentiality of Alcohol and Drug Abuse Patient Records regulations: The Federal rules restrict any use of the information to criminally investigate or prosecute any alcohol or drug abuse patient.[facility] CenterIn the event this information is protected by the Federal Confidentiality of Alcohol and Drug Abuse Patient Records regulations: The Federal rules restrict any use of the information to criminally investigate or prosecute any alcohol or drug abuse patient.[facility] CenterIn the event this information is protected by the Federal Confidentiality of Alcohol and Drug Abuse Patient Records regulations: The Federal rules restrict any use of the information to criminally investigate or prosecute any alcohol or drug abuse patient.[facility] CenterIn the event this information is protected by the Federal Confidentiality of Alcohol and Drug Abuse Patient Records regulations: The Federal rules restrict any use of the information to criminally investigate or prosecute any alcohol or drug abuse patient.[facility] CenterIn the event this information is protected by the Federal Confidentiality of Alcohol and Drug Abuse Patient Records regulations: The Federal rules restrict any use of the information to criminally investigate or prosecute any alcohol or drug abuse patient.[facility] CenterIn the event this information is protected by the Federal Confidentiality of Alcohol and Drug Abuse Patient Records regulations: The Federal rules restrict any use of the information to criminally investigate or prosecute any alcohol or drug abuse patient.[facility] CenterIn the event this information is protected by the Federal Confidentiality of Alcohol and Drug Abuse Patient Records regulations: The Federal rules restrict any use of the information to criminally investigate or prosecute any alcohol or drug abuse patient.[facility] CenterIn the event this information is protected by the Federal Confidentiality of Alcohol and Drug Abuse Patient Records regulations: The Federal rules restrict any use of the information to criminally investigate or prosecute any alcohol or drug abuse patient.[facility] CenterIn the event this information is protected by the Federal Confidentiality of Alcohol and Drug Abuse Patient Records regulations: The Federal rules restrict any use of the information to criminally investigate or prosecute any alcohol or drug abuse patient.[facility] CenterIn the event this information is protected by the Federal Confidentiality of Alcohol and Drug Abuse Patient Records regulations: The Federal rules restrict any use of the information to criminally investigate or prosecute any alcohol or drug abuse patient.[facility] CenterIn the event this information is protected by the Federal Confidentiality of Alcohol and Drug Abuse Patient Records regulations: The Federal rules restrict any use of the information to criminally investigate or prosecute any alcohol or drug abuse patient.[facility] CenterIn the event this information is protected by the Federal Confidentiality of Alcohol and Drug Abuse Patient Records regulations: The Federal rules restrict any use of the information to criminally investigate or prosecute any alcohol or drug abuse patient.[facility] CenterIn the event this information is protected by the Federal Confidentiality of Alcohol and Drug Abuse Patient Records regulations: The Federal rules restrict any use of the information to criminally investigate or prosecute any alcohol or drug abuse patient.[facility] CenterIn the event this information is protected by the Federal Confidentiality of Alcohol and Drug Abuse Patient Records regulations: The Federal rules restrict any use of the information to criminally investigate or prosecute any alcohol or drug abuse patient.[facility] CenterIn the event this information is protected by the Federal Confidentiality of Alcohol and Drug Abuse Patient Records regulations: The Federal rules restrict any use of the information to criminally investigate or prosecute any alcohol or drug abuse patient.[facility] CenterIn the event this information is protected by the Federal Confidentiality of Alcohol and Drug Abuse Patient Records regulations: The Federal rules restrict any use of the information to criminally investigate or prosecute any alcohol or drug abuse patient.[facility] CenterIn the event this information is protected by the Federal Confidentiality of Alcohol and Drug Abuse Patient Records regulations: The Federal rules restrict any use of the information to criminally investigate or prosecute any alcohol or drug abuse patient.[facility] CenterIn the event this information is protected by the Federal Confidentiality of Alcohol and Drug Abuse Patient Records regulations: The Federal rules restrict any use of the information to criminally investigate or prosecute any alcohol or drug abuse patient.[facility] CenterIn the event this information is protected by the Federal Confidentiality of Alcohol and Drug Abuse Patient Records regulations: The Federal rules restrict any use of the information to criminally investigate or prosecute any alcohol or drug abuse patient.[facility] CenterIn the event this information is protected by the Federal Confidentiality of Alcohol and Drug Abuse Patient Records regulations: The Federal rules restrict any use of the information to criminally investigate or prosecute any alcohol or drug abuse patient.[facility] CenterIn the event this information is protected by the Federal Confidentiality of Alcohol and Drug Abuse Patient Records regulations: The Federal rules restrict any use of the information to criminally investigate or prosecute any alcohol or drug abuse patient.[facility] CenterIn the event this information is protected by the Federal Confidentiality of Alcohol and Drug Abuse Patient Records regulations: The Federal rules restrict any use of the information to criminally investigate or prosecute any alcohol or drug abuse patient.[facility] CenterIn the event this information is protected by the Federal Confidentiality of Alcohol and Drug Abuse Patient Records regulations: The Federal rules restrict any use of the information to criminally investigate or prosecute any alcohol or drug abuse patient.[facility] CenterIn the event this information is protected by the Federal Confidentiality of Alcohol and Drug Abuse Patient Records regulations: The Federal rules restrict any use of the information to criminally investigate or prosecute any alcohol or drug abuse patient.[facility] CenterIn the event this information is protected by the Federal Confidentiality of Alcohol and Drug Abuse Patient Records regulations: The Federal rules restrict any use of the information to criminally investigate or prosecute any alcohol or drug abuse patient.[facility] CenterIn the event this information is protected by the Federal Confidentiality of Alcohol and Drug Abuse Patient Records regulations: The Federal rules restrict any use of the information to criminally investigate or prosecute any alcohol or drug abuse patient.[facility] CenterIn the event this information is protected by the Federal Confidentiality of Alcohol and Drug Abuse Patient Records regulations: The Federal rules restrict any use of the information to criminally investigate or prosecute any alcohol or drug abuse patient.[facility] CenterIn the event this information is protected by the Federal Confidentiality of Alcohol and Drug Abuse Patient Records regulations: The Federal rules restrict any use of the information to criminally investigate or prosecute any alcohol or drug abuse patient.[facility] CenterIn the event this information is protected by the Federal Confidentiality of Alcohol and Drug Abuse Patient Records regulations: The Federal rules restrict any use of the information to criminally investigate or prosecute any alcohol or drug abuse patient.[facility] CenterIn the event this information is protected by the Federal Confidentiality of Alcohol and Drug Abuse Patient Records regulations: The Federal rules restrict any use of the information to criminally investigate or prosecute any alcohol or drug abuse patient.[facility] CenterIn the event this information is protected by the Federal Confidentiality of Alcohol and Drug Abuse Patient Records regulations: The Federal rules restrict any use of the information to criminally investigate or prosecute any alcohol or drug abuse patient.[facility] CenterIn the event this information is protected by the Federal Confidentiality of Alcohol and Drug Abuse Patient Records regulations: The Federal rules restrict any use of the information to criminally investigate or prosecute any alcohol or drug abuse patient.[facility] CenterIn the event this information is protected by the Federal Confidentiality of Alcohol and Drug Abuse Patient Records regulations: The Federal rules restrict any use of the information to criminally investigate or prosecute any alcohol or drug abuse patient.[facility] CenterIn the event this information is protected by the Federal Confidentiality of Alcohol and Drug Abuse Patient Records regulations: The Federal rules restrict any use of the information to criminally investigate or prosecute any alcohol or drug abuse patient.[facility] CenterIn the event this information is protected by the Federal Confidentiality of Alcohol and Drug Abuse Patient Records regulations: The Federal rules restrict any use of the information to criminally investigate or prosecute any alcohol or drug abuse patient.[facility] CenterIn the event this information is protected by the Federal Confidentiality of Alcohol and Drug Abuse Patient Records regulations: The Federal rules restrict any use of the information to criminally investigate or prosecute any alcohol or drug abuse patient.[facility] CenterIn the event this information is protected by the Federal Confidentiality of Alcohol and Drug Abuse Patient Records regulations: The Federal rules restrict any use of the information to criminally investigate or prosecute any alcohol or drug abuse patient.[facility] CenterIn the event this information is protected by the Federal Confidentiality of Alcohol and Drug Abuse Patient Records regulations: The Federal rules restrict any use of the information to criminally investigate or prosecute any alcohol or drug abuse patient.[facility] CenterIn the event this information is protected by the Federal Confidentiality of Alcohol and Drug Abuse Patient Records regulations: The Federal rules restrict any use of the information to criminally investigate or prosecute any alcohol or drug abuse patient.[facility] Care Teams (unrecognized sec tion and content) Hearing Healthcare Practitioner Relationship Specialty Start Date End Date Chance Kolb MD [address] [place], [place] [id number] PCP - General Internal Medicine 08/01/10 Hearing Healthcare Practitioner Relationship Specialty Start Date End Date Chance Kolb MD [address] [place], [place] [address]391 PCP - General Internal Medicine 08/01/10 Hearing Healthcare Practitioner Relationship Specialty Start Date End Date Chance Kolb MD [address] [place] [address], [place] [address] PCP - General Internal Medicine 08/01/10 Hearing Healthcare Practitioner Relationship Specialty Start Date End Date Chance Kolb MD [address] [place] [address], [place] [address] PCP - General Internal Medicine 08/01/10 Hearing Healthcare Practitioner Relationship Specialty Start Date End Date Chance Kolb MD [address] [place] [address], [place] [address] PCP - General Internal Medicine 08/01/10 Hearing Healthcare Practitioner Relationship Specialty Start Date End Date Chance Kolb MD [address] [place] [address], [place] [address] PCP - General Internal Medicine 08/01/10 Hearing Healthcare Practitioner Relationship Specialty Start Date End Date Chance Kolb MD [address] [place] [address], [place] [address] PCP - General Internal Medicine 08/01/10 Hearing Healthcare Practitioner Relationship Specialty Start Date End Date Chance Kolb MD [address] [place] [address], [place] [address] PCP - General Internal Medicine 08/01/10 Hearing Healthcare Practitioner Relationship Specialty Start Date End Date Chance Kolb MD [address] [place] [address], [place] [address] PCP - General Internal Medicine 08/01/10 Hearing Healthcare Practitioner Relationship Specialty Start Date End Date Chance Kolb MD [address] [place] [address], [place] [address] PCP - General Internal Medicine 08/01/10 Hearing Healthcare Practitioner Relationship Specialty Start Date End Date Chance Kolb MD [address] [place] [address], [place] [address] PCP - General Internal Medicine 08/01/10 Hearing Healthcare Practitioner Relationship Specialty Start Date End Date Chance Kolb MD [address] [place] [address] PCP - General Internal Medicine 08/01/10 Hearing Healthcare Practitioner Relationship Specialty Start Date End Date Chance Kolb MD [address] [place] [address] PCP - General Internal Medicine 08/01/10 Hearing Healthcare Practitioner Relationship Specialty Start Date End Date Chance Kolb MD [address] [place] [address], [place] [address] PCP - General Internal Medicine 08/01/10 Hearing Healthcare Practitioner Relationship Specialty Start Date End Date Chance Kolb MD [address] [place] [address], [place] [address] PCP - General Internal Medicine 08/01/10 Hearing Healthcare Practitioner Relationship Specialty Start Date End Date Chance Kolb MD [address] [place] [address], [place] [address] PCP - General Internal Medicine 08/01/10 Hearing Healthcare Practitioner Relationship Specialty Start Date End Date Chance Kolb MD [address] [place] [address], [place] [address] PCP - General Internal Medicine 08/01/10 Hearing Healthcare Practitioner Relationship Specialty Start Date End Date Chance Kolb MD [address] [place] [address], [place] [address] PCP - General Internal Medicine 08/01/10 Hearing Healthcare Practitioner Relationship Specialty Start Date End Date Chance Kolb MD [address] [place] [address], [place] [address] PCP - General Internal Medicine 08/01/10 Hearing Healthcare Practitioner Relationship Specialty Start Date End Date Chance Kolb MD [address] [place] [address] PCP - General Internal Medicine 08/01/10 Hearing Healthcare Practitioner Relationship Specialty Start Date End Date Chance Kolb MD [address] [place] [address] PCP - General Internal Medicine 08/01/10 Team Status: Active Member Role Status Dates Dr. Chance Kolb MD Family Provider Active Dr. Chance Kolb MD Primary Care Provider Active Team Status: Inactive Member Role Status Dates Dr. Chance Kolb MD Primary Care Provider Active Dr. Arjun Sarabia DO Emergency Provider Active Hearing Healthcare Practitioner Relationship Specialty Start Date End Date Chance Kolb MD [address] [place] [address] PCP - General Internal Medicine 08/01/10 Hearing Healthcare Practitioner Relationship Specialty Start Date End Date Chance Kolb MD [address] [place] [address] PCP - General Internal Medicine 08/01/10 Hearing Healthcare Practitioner Relationship Specialty Start Date End Date Chance Kolb MD [address] [place] [address] PCP - General Internal Medicine 08/01/10 Hearing Healthcare Practitioner Relationship Specialty Start Date End Date Chance Kolb MD [address] [place], [place] [address] PCP - General Internal Medicine 08/01/10 Hearing Healthcare Practitioner Relationship Specialty Start Date End Date Chance Kolb MD [address] [place], [place] [address] [phone] PCP - General Internal Medicine 08/01/10 Hearing Healthcare Practitioner Relationship Specialty Start Date End Date Chance Kolb [address] [place] [address] PCP - General 07/31/16 Hearing Healthcare Practitioner Relationship Specialty Start Date End Date Chance Kolb [address] [place] [address] PCP - General 07/31/16 Hearing Healthcare Practitioner Relationship Specialty Start Date End Date Chance Kolb [address] [place] [address] PCP - General 07/31/16 Hearing Healthcare Practitioner Relationship Specialty Start Date End Date Chance Kolb [address] [place] [address] PCP - General 07/31/16 Hearing Healthcare Practitioner Relationship Specialty Start Date End Date Chance Kolb [address] [place] [address] PCP - General 07/31/16 Hearing Healthcare Practitioner Relationship Specialty Start Date End Date Chance Kolb [address] [place] [address] PCP - General 07/31/16 Hearing Healthcare Practitioner Relationship Specialty Start Date End Date Chance Kolb MD [address] [place] [address] PCP - General Internal Medicine 08/01/10 Hearing Healthcare Practitioner Relationship Specialty Start Date End Date Chance Kolb MD [address] [place] [address] PCP - General Internal Medicine 08/01/10 Hearing Healthcare Practitioner Relationship Specialty Start Date End Date Chance Kolb [address] [place] [address] PCP - General 07/31/16 Hearing Healthcare Practitioner Relationship Specialty Start Date End Date Chance Kolb [address] [place] [address] PCP - General 07/31/16 Hearing Healthcare Practitioner Relationship Specialty Start Date End Date Chance Kolb MD [address] [place] [address] PCP - General Internal Medicine 08/01/10 Hearing Healthcare Practitioner Relationship Specialty Start Date End Date Chance Kolb MD [address] [place] [address] PCP - General Internal Medicine 08/01/10 Hearing Healthcare Practitioner Relationship Specialty Start Date End Date Chance Kolb MD [address] [place] [address] PCP - General Internal Medicine 08/01/10 Hearing Healthcare Practitioner Relationship Specialty Start Date End Date Chance Kolb MD [address] [place] [address] PCP - General Internal Medicine 08/01/10 Hearing Healthcare Practitioner Relationship Specialty Start Date End Date Chance Kolb MD [address] [place] [address] PCP - General Internal Medicine 08/01/10 Hearing Healthcare Practitioner Relationship Specialty Start Date End Date Chance Kolb MD [address] [place] [address] PCP - General Internal Medicine 08/01/10 Hearing Healthcare Practitioner Relationship Specialty Start Date End Date Chance Kolb MD [address] [place] [address] PCP - General Internal Medicine 08/01/10 Hearing Healthcare Practitioner Relationship Specialty Start Date End Date Chance Kolb MD [address] [place] [address] PCP - General Internal Medicine 08/01/10 Hearing Healthcare Practitioner Relationship Specialty Start Date End Date Chance Kolb MD [address] [place] [address] PCP - General Internal Medicine 08/01/10 Hearing Healthcare Practitioner Relationship Specialty Start Date End Date Chance Kolb MD [address] [place] [address] PCP - General Internal Medicine 08/01/10 Hearing Healthcare Practitioner Relationship Specialty Start Date End Date Chance Kolb MD [address] [place] [address] PCP - General Internal Medicine 08/01/10 Hearing Healthcare Practitioner Relationship Specialty Start Date End Date Chance Kolb MD [address] [place] [address] PCP - General Internal Medicine 08/01/10 Hearing Healthcare Practitioner Relationship Specialty Start Date End Date Chance Kolb MD [address] [place] [address] PCP - General Internal Medicine 08/01/10 Hearing Healthcare Practitioner Relationship Specialty Start Date End Date Chance Kolb MD [address] [place] [address] PCP - General Internal Medicine 08/01/10 Hearing Healthcare Practitioner Relationship Specialty Start Date End Date Chance Kolb MD [address] [place] [address] PCP - General Internal Medicine 08/01/10 Hearing Healthcare Practitioner Relationship Specialty Start Date End Date Chance Kolb MD [address] [place] [address] PCP - General Internal Medicine 08/01/10 Hearing Healthcare Practitioner Relationship Specialty Start Date End Date Chance Kolb MD [address] [place] [address] PCP - General Internal Medicine 08/01/10 Nguyễn Stringer, AIR TWISTER WINDER.PEDIATRICIAN ACTIVE PRACTICE [address] [place] [address] Professional Services Consultant Internal Medicine 08/17/24 Malachi Lilly AIR TWISTER WINDER.PROP DRAWER [address] [place] [address] Professional Services Consultant Internal Medicine 08/17/24 Hearing Healthcare Practitioner Relationship Specialty Start Date End Date Chance Kolb MD [address] [place] [address] PCP - General Internal Medicine 08/01/10 Nguyễn Stringer, AIR TWISTER WINDER.PEDIATRICIAN ACTIVE PRACTICE [address] [place] [address] Professional Services Consultant Internal Medicine 08/17/24 Malachi Lilly AIR TWISTER WINDER.PROP DRAWER [address] [place], [place] [address] [facility] Internal Medicine 08/17/24 Hearing Healthcare Practitioner Relationship Specialty Start Date End Date Chance Kolb MD [address] [place], [place] [address] PCP - General Internal Medicine 08/01/10 Nguyễn Stringer, AIR TWISTER WINDER.PEDIATRICIAN ACTIVE PRACTICE [address] [place], [place] [address] [facility] Internal Medicine 08/17/24 Malachi Lilly AIR TWISTER WINDER.PROP DRAWER [address] [place] [address] [facility] Internal Medicine 08/17/24 Hearing Healthcare Practitioner Relationship Specialty Start Date End Date Chance Kolb MD [address] [place] [address] PCP - General Internal Medicine 08/01/10 Malachi Lilly AIR TWISTER WINDER.PROP DRAWER [address] [place] [address] Professional Services Consultant Internal Medicine 12/01/24 Nguyễn Stringer, AIR TWISTER WINDER.PEDIATRICIAN ACTIVE PRACTICE [address] [place] [address] [facility] Internal Medicine 01/27/25 Team Status: Active Member Role Status Dates Dr. Chance Kolb MD Primary Care Provider Active Team Status: Inactive Member Role Status Dates Dr. Chanec Kolb MD Primary Care Provider Active Start: [...] Provider Active Sta rt: April 01, 2025 Hearing Healthcare Practitioner Relationship Specialty Start Date End Date Chance Kolb MD [address] [facility] [place], [place] [address] PCP - General Internal Medicine 08/01/10 Malachi Lilly AIR TWISTER WINDER.PROP DRAWER [address] [facility], [place] [address] Professional Services Consultant Internal Medicine 12/01/24 Nguyễn Stringer, AIR TWISTER WINDER.PEDIATRICIAN ACTIVE PRACTICE [address] [facility], [place] [address] Professional Services Consultant Internal Medicine 01/27/25 Team Status: Active Member [...] Provider Active Sta rt: May 09, 2025 Hearing Healthcare Practitioner Relationship Specialty Start Date End Date Chance Kolb MD [address] [place] [address] PCP - General Internal Medicine 08/01/10 Malachi Lilly, AIR TWISTER WINDER.PROP DRAWER [address] [place] [address] Professional Services Consultant Internal Medicine 12/01/24 Nguyễn Stringer, AIR TWISTER WINDER.PEDIATRICIAN ACTIVE PRACTICE [address] [place] [address] Professional Services Consultant Internal Medicine 01/27/25 Team Status: Active Member [...] COMPLEX 45 MINS Chance Kolb MD [address] [place] [address] [facility] [address] [place] [id number] Referral ID Status Reason Start Date Expiration Date Visits Requested Visits Authorized [id number] Authorized PCP Requested Referral Auto-Generate d Referral 4 06/24/2025 99 99 Reason Comments Physical Therapy Reason Comments Established Patient 4 week post visit le ft 5th fx Reason Comments F/U 6 months Reason Comments Covid19 Concern asymptomatic exposur e x5 days Reason Comments Appointment Cancelled Reason Comments Yearly Exam Reason Comments Results Reason Comments Follow for [facility] Reason Comments Social Work Eval Order Reason Comments home health calling Reason Comments Patient Question Reason Comments Skillled Nursing Evaluation Reason Comments PT Update Reason Comments Home Health Update Reason Comments [facility] Plan of Care (continued) Reason Onset Date [...] burning sensation.Going to reach out to her sieve maker to see about completing EGD Pain right hand 4th digit at the tip of finger has pain off and on Reason Comments ER F/U [facility] 04/29/23. Suture s need removed from a dog nail abrasion Reason Comments Urinary Frequency x 1 week Reason Comments New Patient Right thumb cyst Specialty Diagnoses / Procedures Referred By Contac t Referred To Contact Radiology Diagnoses Mass of finger of right hand Rupture of flexor pollicis longus muscle Procedures MR hand right wo IV contrast Thea Vail MD [address] [facility] [address] [place] [address] Referral ID Status Reason Start Date Expiration Date Visits Re quested Visits Authorized [id number] Closed 08/12/2023 08/11/2024 1 1 Specialty Diagnoses / Procedures Referred By Contac t Referred To Contact Radiology Diagnoses Mass of finger of right hand Rupture of flexor pollicis longus muscle Procedures MR wrist right wo IV contrast Thea Vail MD [address] [facility] [address] [place] [address] Referral ID Status Reason Start Date Expiration Date Visits Re quested Visits Authorized [id number] Closed 08/12/2023 08/11/2024 1 1 Reason Comments [...] section and content) DATE CREATED AUTHOR 01/10/2024 [facility] [employer] [facility] DATE CREATED AUTHOR AUTHOR'S ORGANIZ ATION 06/28/2025 [facility] DATE CREATED AUTHOR AUTHOR'S ORGANIZ ATION 07/15/2025 [facility] FOR RECORDS PERTAINING TO PATIENTS WHO [...] BE BASED ON THE PRIMARY CLINICAL RECORDS. [facility] [employer] [facility]. provides no warranty or guarantee of the accuracy or completeness of information in this document.
--- OUTSIDE RECORDS SUMMARY | 2025-08-05 23:47 | XMS RPT_ITS | CCD ---
Author Organization [facility] Care Team Providers Care Engraver Automatic Name Role Phone Chance Kolb MD Primary [...] Unavailable TALAMPAS, CHANCE, Primary Care Unavailable BACKER, MORAVIAN Referring Unavailable TALAMPAS, CHNACE, Primary Care Unavailable YARED, THEA Attending Unavailable TALAMPAS, CHANCE, Primary Care Unavailable Stringer AGENCY SALES MANAGEMENT ASSISTANT.DESK CLERKS SUPERVISOR, Nguyễn Unavailable Vijaya AGENCY SALES MANAGEMENT ASSISTANT.HOME CARE ASSISTANT, Malachi Unavailable Vijaya AGENCY SALES MANAGEMENT ASSISTANT.HOME CARE ASSISTANT, Malachi Unavailable Stringer AGENCY SALES MANAGEMENT ASSISTANT.DESK CLERKS SUPERVISOR, Nguyễn Unavailable Dr. Chance Kolb MD Primary Care Provider [phone] Zo MONIQUE, Dr. Marai Attending Provider Zo MONIQUE, Dr. Maria Emergency Provider Cortes BOWIE, Dr. Chance Worthington Referring Provider Edwige BOWIE, Dr. Cedric Samuel Attending Provider Edwige BOWIE, Dr. Cedric Samuel Other Provider Ra MONIQUE, Dr. Solis Emergency Provider Ra MONIQUE, Dr. Solis Attending Provider Cortes BOWIE, Dr. Chance Worthington Primary Care Provider [phone] Cortes BOWIE, Dr. Chance Worthington Referring Provider [...] Unavailable Talampas, Chance D Primary Care Unavailable eCdric Gibbons Attending Unavailable Talampas, Chance D Referring [...] oxyCODONE; Translations: [OXYCODONE-ACETAM INOPHEN] Drug Allergy 5 [facility] (20 sources) Codeine; Translations: [CODEINE] Drug Allergy 5 Nausea, Nausea & dizziness [facility] Work Phone: (13 sources) oxyCODONE; Translations: [oxycodone HCl] Drug Allergy 2 Nausea, Nausea & dizziness [facility] (19 sources) oxyCODONE Drug Allergy 7 Other [facility] Comment on above: unknown (7 sources) Acetaminophen Drug Allergy 5 Other [facility] Comment on above: unknown (1 source) Acetaminophen Drug Allergy 5 [facility] Repository (1 source) Codeine Drug Allergy 5 [facility] Repository (1 source) oxyCODONE Drug Allergy 5 [facility] Repository Medications Current Medications Medication Drug [...] by mouth daily at bedtime. bacillus coagulans [id number] unt / inulin 250 mg oral capsule (12 sources) Start: 016 take 1 capsule by mouth once daily bifidobacterium animalis [id number] unt / lactobacillus acidophilus [id number] unt oral capsule (12 sources) Probiotic Produc [...] mg oral capsule (12 sources) Krill Oil ([place]-3) 500 MG capsule Take by mouth. 0 [...] Comment on above: Take 2 capsules by [facility]. (Dr. Swan--GI) Take 1 capsule [...] (3 sources) Patient encounter status; Translations: [Other watermelon inspector (current) drug therapy] Episodic Other aftercare (1 source) Long-term current use of mesalamine; Translations: [Other watermelon inspector (current) drug therapy] Episodic Other aftercare (2 sources) Removal of sutures done; Translations: [Encounter for removal of sutures] 05-06-2023 Episodic Other aftercare (1 source) Long-term current use of drug therapy; Translations: [Other watermelon inspector (current) drug therapy] 06-24-2024 Episodic Other bone [...] nutritional; endocrine; and metabolic disorders (20 sources) Ltss-xgbf-bfhmhdomirmc patrice; Translations: [Lipoprotein deficiency] Onset: 4 12-08-2015 [...] 01-29-2025 Episodic Other aftercare (1 source) Other watermelon inspector (current) drug therapy; Translations: [Encounter for long-term [...] Ordering Facility: [facility] Address: [address] [place] [address] Performed By: #### 2 4321-2 #### [facility] CLIA [id number] [address] [place] [address] [place] Basophils/100 WBC (Bld) 0.5 % Normal [facility] Comment on above: Order Comment: Speci men Type: BLOOD SPECIMEN Ordering Facility: [facility] Address: [address] [place] [address] Performed By: #### 2 4321-2 #### [facility] CLIA [id number] [address] [place] [address] [place] Differential cell count method Nom (Bld) Auto Normal [facility] Comment on above: Order Comment: Speci men Type: BLOOD SPECIMEN Ordering Facility: [facility] Address: [address] [place] [address] Performed By: #### 2 4321-2 #### [facility] CLIA [id number] [address] [place] [address] [place] Eosinophils (Bld) [#/Vol] 0.03 10*3/uL Normal <0.46 [facility] Comment on above: Order Comment: Speci men Type: BLOOD SPECIMEN Ordering Facility: [facility] Address: [address] [place] [address] Performed By: #### 2 4321-2 #### [facility] CLIA [id number] [address] [place] [address] [place] Eosinophils/100 WBC (Bld) 0.3 % Normal [facility] Comment on above: Order Comment: Speci men Type: BLOOD SPECIMEN Ordering Facility: [facility] Address: [address] [place] [address] Performed By: #### 2 4321-2 #### [facility] CLIA [id number] [address] [place] [address] [place] Erythrocyte distribution width (RBC) [Ratio] 13.2 % Normal 11.5-15.0 [facility] Comment on above: Order Comment: Speci men Type: BLOOD SPECIMEN Ordering Facility: [facility] Address: [address] [place] [address] Performed By: #### 2 4321-2 #### [facility] CLIA [id number] [address] [place] [address] [place] Hematocrit (Bld) [Volume fraction] 49.5 % High 36.0-46.0 [facility] Comment on above: Order Comment: Speci men Type: BLOOD SPECIMEN Ordering Facility: [facility] Address: [address] [place] [address] Performed By: #### 2 4321-2 #### [facility] CLIA [id number] [address] [place] [address] [place] Hemoglobin (Bld) [Mass/Vol] 16.6 g/dL High 11.5-15.5 [facility] Comment on above: Order Comment: Speci men Type: BLOOD SPECIMEN Ordering Facility: [facility] Address: [address] [place] [address] Performed By: #### 2 4321-2 #### [facility] CLIA [id number] [address] [place] [address] [place] Immature granulocytes (Bld) [#/Vol] 10*3/uL Normal <0.10 [facility] Comment on above: Order Comment: Speci men Type: BLOOD SPECIMEN Ordering Facility: [facility] Address: [address] [place] [address] Performed By: #### 2 4321-2 #### [facility] CLIA [id number] [address] [id number] [address] [place] Immature granulocytes/100 WBC (Bld) 0.2 % Normal [facility] Comment on above: Order Comment: Speci men Type: BLOOD SPECIMEN Ordering Facility: [facility] Address: [address] [place] [address] Performed By: #### 2 4321-2 #### [facility] CLIA [id number] [address] [place] [address] [place] Lymphocytes (Bld) [#/Vol] 1.03 10*3/uL Normal 1.00-4.00 [facility] Comment on above: Order Comment: Speci men Type: BLOOD SPECIMEN Ordering Facility: [facility] Address: [address] [place] [address] Performed By: #### 2 4321-2 #### [facility] CLIA [id number] [address] [place] [address] [place] Lymphocytes/100 WBC (Bld) 10.1 % Normal [facility] Comment on above: Order Comment: Speci men Type: BLOOD SPECIMEN Ordering Facility: [facility] Address: [address] [place] [address] Performed By: #### 2 4321-2 #### [facility] CLIA [id number] [address] [place] [address] [place] MCH (RBC) [Entitic mass] 31.1 pg Normal 26.0-34.0 [facility] Comment on above: Order Comment: Speci men Type: BLOOD SPECIMEN Ordering Facility: [facility] Address: [address] [place] [address] Performed By: #### 2 4321-2 #### [facility] CLIA [id number] [address] [place] [address] [place] MCHC (RBC) [Mass/Vol] 33.5 g/dL Normal 30.5-36.0 [facility] Comment on above: Order Comment: Speci men Type: BLOOD SPECIMEN Ordering Facility: [facility] Address: [address] [place] [address] Performed By: #### 2 4321-2 #### [facility] CLIA [id number] [address] [place] [address] [place] MCV (RBC) [Entitic vol] 92.7 fL Normal 80.0-100.0 [facility] Comment on above: Order Comment: Speci men Type: BLOOD SPECIMEN Ordering Facility: [facility] Address: [address] [place] [address] Performed By: #### 2 4321-2 #### [facility] CLIA [id number] [address] [place] [address] [place] Monocytes (Bld) [#/Vol] 0.57 10*3/uL Normal <0.87 [facility] Comment on above: Order Comment: Speci men Type: BLOOD SPECIMEN Ordering Facility: [facility] Address: [address] [place] [address] Performed By: #### 2 4321-2 #### [facility] CLIA [id number] [address] [place] [address] [place] Monocytes/100 WBC (Bld) 5.6 % Normal [facility] Comment on above: Order Comment: Speci men Type: BLOOD SPECIMEN Ordering Facility: [facility] Address: [address] [place] [address] Performed By: #### 2 4321-2 #### [facility] CLIA [id number] [address] [place] [address] [place] Neutrophils (Bld) [#/Vol] 8.47 10*3/uL High 1.45-7.50 [facility] Comment on above: Order Comment: Speci men Type: BLOOD SPECIMEN Ordering Facility: [facility] Address: [address] [place] [address] Performed By: #### 2 4321-2 #### [facility] CLIA [id number] [address] [place], [place] [address] [place] Neutrophils/100 WBC (Bld) 83.3 % Normal [facility] Comment on above: Order Comment: Speci men Type: BLOOD SPECIMEN Ordering Facility: [facility] Address: [address] [place] [address] Performed By: #### 2 4321-2 #### [facility] CLIA [id number] [address] [place] [address] [place] Nucleated RBC (Bld) [#/Vol] 10*3/uL Normal <0.01 [facility] Comment on above: Order Comment: Speci men Type: BLOOD SPECIMEN Ordering Facility: [facility] Address: [address] [place] [address] Performed By: #### 2 4321-2 #### [facility] CLIA [id number] [address] [place] [address] [place] Nucleated RBC/100 WBC (Bld) [Ratio] 0.0 /100 WBC Normal [facility] Comment on above: Order Comment: Speci men Type: BLOOD SPECIMEN Ordering Facility: [facility] Address: [address] [place] [address] Performed By: #### 2 4321-2 #### [facility] CLIA [id number] [address] [place] [address] [place] Platelet mean volume (Bld) [Entitic vol] 10.1 fL Normal 9.0-12.7 [facility] Comment on above: Order Comment: Speci men Type: BLOOD SPECIMEN Ordering Facility: [facility] Address: [address] [place] [address] Performed By: #### 2 4321-2 #### [facility] CLIA [id number] [address] [place] [address] [place] Platelets (Bld) [#/Vol] 237 10*3/uL Normal 150-400 [facility] Comment on above: Order Comment: Speci men Type: BLOOD SPECIMEN Ordering Facility: [facility] Address: [address] [place] [address] Performed By: #### 2 4321-2 #### [facility] CLIA [id number] [address] [place] [address] [place] RBC (Bld) [#/Vol] 5.34 10*6/uL High 3.90-5.20 [facility] Comment on above: Order Comment: Speci men Type: BLOOD SPECIMEN Ordering Facility: [facility] Address: [address] [place] [address] Performed By: #### 2 4321-2 #### [facility] CLIA [id number] [address] [place] [address] [place] WBC (Bld) [#/Vol] 10.17 10*3/uL Normal 3.70-11.00 [facility] Comment on above: Order Comment: Speci men Type: BLOOD SPECIMEN Ordering Facility: [facility] Address: [address] [place] [address] Performed By: #### 2 4321-2 #### [facility] CLIA [id number] [address] [place] [address] [place] CRP SerPl-mCncon 06-23-2025 CRP [Mass/Vol] mg/L Normal <0.9 [facility] Comment on above: Order Comment: Speci men Type: BLOOD SPECIMEN Ordering Facility: [facility] Address: [address] [place] [address] Performed By: #### 2 4321-2 #### [facility] CLIA [id number] [address] [place] [address] [place] Comprehensive metabolic 2000 panelon 06-23-2025 Albumin [Mass/Vol] 4.7 g/dL Normal 3.9-4.9 [facility] Comment on above: Order Comment: Speci men Type: BLOOD SPECIMEN Ordering Facility: [facility] Address: [address] [place] [address] Performed By: #### 2 4321-2 #### [facility] CLIA [id number] [address] [place] [id number] [place] ALP [Catalytic activity/Vol] 46 U/L Normal 34-123 [facility] Comment on above: Order Comment: Speci men Type: BLOOD SPECIMEN Ordering Facility: [facility] Address: [address] [place] [address] Performed By: #### 2 4321-2 #### [facility] CLIA [id number] [address] [place], [place] [address] [place] ALT [Catalytic activity/Vol] 21 U/L Normal 7-38 [facility] Comment on above: Order Comment: Speci men Type: BLOOD SPECIMEN Ordering Facility: [facility] Address: [address] [place] [address] Performed By: #### 2 4321-2 #### [facility] CLIA [id number] [address] [place], [place] [address] [place] Anion gap [Moles/Vol] 15 mmol/L Normal 8-15 [facility] Comment on above: Order Comment: Speci men Type: BLOOD SPECIMEN Ordering Facility: [facility] Address: [address] [place] [address] Performed By: #### 2 4321-2 #### [facility] CLIA [id number] [address] [place], [place] [address] [place] AST [Catalytic activity/Vol] 22 U/L Normal 13-35 [facility] Comment on above: Order Comment: Speci men Type: BLOOD SPECIMEN Ordering Facility: [facility] Address: [address] [place], [place] [address] Performed By: #### 2 4321-2 #### [facility] CLIA [id number] [address] [place], [place] [address] [place] Bilirubin [Mass/Vol] 0.3 mg/dL Normal 0.2-1.3 [facility] Comment on above: Order Comment: Speci men Type: BLOOD SPECIMEN Ordering Facility: [facility] Address: [address] [place] [address] Performed By: #### 2 4321-2 #### [facility] CLIA [id number] [address] [place] [address] [place] Calcium [Mass/Vol] 9.7 mg/dL Normal 8.5-10.2 [facility] Comment on above: Order Comment: Speci men Type: BLOOD SPECIMEN Ordering Facility: [facility] Address: [address] [place] [address] Performed By: #### 2 4321-2 #### [facility] CLIA [id number] [address] [place] [address] [place] Chloride [Moles/Vol] 105 mmol/L Normal 98-107 [facility] Comment on above: Order Comment: Speci men Type: BLOOD SPECIMEN Ordering Facility: [facility] Address: [address] [place] [address] Performed By: #### 2 4321-2 #### [facility] CLIA [id number] [address] [place] [address] [place] CO2 [Moles/Vol] 19 mmol/L Low 22-30 [facility] Comment on above: Order Comment: Speci men Type: BLOOD SPECIMEN Ordering Facility: [facility] Address: [address] [place] [address] Performed By: #### 2 4321-2 #### [facility] CLIA [id number] [address] [place] [address] [place] Creatinine [Mass/Vol] 0.89 mg/dL Normal 0.58-0.96 [facility] Comment on above: Order Comment: Speci men Type: BLOOD SPECIMEN Ordering Facility: [facility] Address: [address] [place] [address] Performed By: #### 2 4321-2 #### [facility] CLIA [id number] [address] [place] [address] [place] eGFRcr SerPlBld CKD-EPI 2020 68 mL/min/1.73m??? Normal >=60 [facility] Comment on above: Order Comment: Alejandra martin Type: BLOOD SPECIMEN Ordering Facility: [facility] Address: [address] [place] [address] Result Comment: Maryjane mated Glomerular Filtration Rate [...] GFR. Performed By: #### 2 4321-2 #### [facility] CLIA [id number] [address] [place] [address] [place] Glucose [Mass/Vol] 105 mg/dL High 74-99 [facility] Comment on above: Order Comment: Alejandra martin Type: BLOOD SPECIMEN Ordering Facility: [facility] Address: [address] [place] [address] Result Comment: The [place] [employer] (ADA) provides guidance for cutoff [...] Standards of Medical Care in Diabetes 2016, [place] [employer]. Diabetes Care. 2016.39(Suppl 1). Performed By: #### 2 4321-2 #### [facility] CLIA [id number] [address] [place], [place] [address] [place] Potassium [Moles/Vol] 3.9 mmol/L Normal 3.7-5.1 [facility] Comment on above: Order Comment: Speci men Type: BLOOD SPECIMEN Ordering Facility: [facility] Address: [address] [place] [address] Performed By: #### 2 4321-2 #### [facility] CLIA [id number] [address] [place] [address] [place] Protein [Mass/Vol] 7.5 g/dL Normal 6.3-8.0 [facility] Comment on above: Order Comment: Speci men Type: BLOOD SPECIMEN Ordering Facility: [facility] Address: [address] [place] [address] Performed By: #### 2 4321-2 #### [facility] CLIA [id number] [address] [place] [address] [place] Sodium [Moles/Vol] 139 mmol/L Normal 136-144 [facility] Comment on above: Order Comment: Speci men Type: BLOOD SPECIMEN Ordering Facility: [facility] Address: [address] [place] [address] Performed By: #### 2 4321-2 #### [facility] CLIA [id number] [address] [place] [address] [place] Urea nitrogen [Mass/Vol] 17 mg/dL Normal 7-21 [facility] Comment on above: Order Comment: Speci men Type: BLOOD SPECIMEN Ordering Facility: [facility] Address: [address] [place] [address] Performed By: #### 2 4321-2 #### [facility] CLIA [id number] [address] [place] [address] [place] CNCOon 06-21-2025 CNCO Letter Text Normal [facility] Wound Ctr History AND Physic vanessa 05-26-2025 Wound Ctr History & Physical [facility] [address] [place] [address] H P Exam - Wound Care 05/26/25 1349 MR#: [id number] Acct: [id number] Name: GERALDINE HAIRSTON Rep #: [id number] : 1950 74 From: Cedric Gibbons MD [...] of her injury, she presented to the [facility] Emergency Department, where she was found [...] her age, though has a history of gyxl-ruiv-xjkmoclssmdyhq a, GERD, hypertension, hypothyroidism, and osteoporosis. She [...] remained a patient at the Wound Center. [facility] Medical History Non-pressure chronic ulcer of right [...] use ty (more content not included)... Normal [facility] SCREENINGon 05-24-2025 [facility] SCREENING * * *Final Report* * * DATE OF EXAM: May 24 2025 2:19PM [facility] 0581 - [facility] SCREENING / PROCEDURE REASON: Encounter for screening mammogram for malignant neoplasm of breast * * * * Physician Interpretation * * * * RESULT: [place] [address] #[id number] - [facility] SCREENING HISTORY: 74 year-old patient presents [...] Cheryl Mcneal M.D. Electronically signed on: 05/26/2025 Scale Model Maker: AMALIA Transcribe Date/Time: May 24 2025 1:49P Dictated by: CHERYL MCNEAL MD This examination was interpreted and the report reviewed and electronically signed by: CHERYL MCNEAL MD on May 26 2025 5:26AM EST [id number] Normal [facility] Wound Ctr History AND Physic vanessa 05-09-2025 Wound Ctr History & Physical [facility] [address] [place] [address] H P Exam - Wound Care 05/09/25 1703 MR#: [id number] Acct: [id number] Name: GERALDINE HAIRSTON Rep #: [id number] : 1950 74 From: Cedric Gibbons MD [...] of her injury, she presented to the [facility] Emergency Department, where she was found [...] her age, though has a history of udva-llrw-lnyvdypkrkwlwx a, GERD, hypertension, hypothyroidism, and osteoporosis. She [...] remains a patient at the Wound Center. [facility] Medical History Non-pressure chronic ulcer of right [...] use typ (more content not included)... [facility] ) -------- YOVANNYGERALDINE Elin ([id number]) 1950 F Date Time Provider Department 05/04/25 3:20 PM NGUYỄN STRINGER During your visit today, we recorded the following information about you: Pulse Respiration Blood pressure Weight 94/minute 16/minute 102/54 41.4 kg Height 1.42 m Nguyễn Stringer, MIMI.DESK CLERKS SUPERVISOR 05/04/2025 12:39 PM Signed Screening schedule [...] review all the medicines you take, even iygs-sba-pzflfoa medicines. As you get older, the way [...] you have certain medical conditions. Nguyễn Stringer, MIMI.DESK CLERKS SUPERVISOR 05/04/2025 3:17 PM Signed Geraldine Hairston [...] in the medical record. Dr. Alin Altamirano Gear Setter Dr. Thom Swan at [facility] follow up. Medical/Family history review Reviewed [...] Ordering Facility: [facility] Address: [address] [place] [address] Result Comment: Clas sification of 25 [place] Vitamin D status: Deficiency/Insufficiency: < or = 30 ng/ml. Sufficiency/Optimal Levels: 31-80 ng/mL Toxicity: > 100 ng/mL. Test performed by chemiluminescent immunoassay. Performed By: #### 2 4321-2 #### [facility] CLIA [id number] [address] [place] [address] [place] Basic metabolic 2000 panelon 04-29-2025 Anion gap [Moles/Vol] 13 mmol/L Normal 8-15 [facility] Comment on above: Order Comment: Alejandra martin Type: BLOOD SPECIMEN Ordering Facility: [facility] Address: [address] [place] [address] Performed By: #### 2 4321-2 #### [facility] CLIA [id number] [address] [place] [address] [place] Calcium [Mass/Vol] 9.1 mg/dL Normal 8.5-10.2 [facility] Comment on above: Order Comment: Speci men Type: BLOOD SPECIMEN Ordering Facility: [facility] Address: [address] [place], [place] [address] Performed By: #### 2 4321-2 #### [facility] CLIA [id number] [address] [place], [place] [address] [place] Chloride [Moles/Vol] 107 mmol/L Normal 98-107 [facility] Comment on above: Order Comment: Speci men Type: BLOOD SPECIMEN Ordering Facility: [facility] Address: [address] [place] [address] Performed By: #### 2 4321-2 #### [facility] CLIA [id number] [address] [place] [address] [place] CO2 [Moles/Vol] 22 mmol/L Normal 22-30 [facility] Comment on above: Order Comment: Speci men Type: BLOOD SPECIMEN Ordering Facility: [facility] Address: [address] [place] [address] Performed By: #### 2 4321-2 #### [facility] CLIA [id number] [address] [place] [address] [place] Creatinine [Mass/Vol] 0.89 mg/dL Normal 0.58-0.96 [facility] Comment on above: Order Comment: Speci men Type: BLOOD SPECIMEN Ordering Facility: [facility] Address: [address] [place], [place] [address] Performed By: #### 2 4321-2 #### [facility] CLIA [id number] [address] [place] [address] [place] eGFRcr SerPlBld CKD-EPI 2020 68 mL/min/1.73m??? Normal >=60 [facility] Comment on above: Order Comment: Speci men Type: BLOOD SPECIMEN Ordering Facility: [facility] Address: [address] [place], [place] [address] Result Comment: Maryjane mated Glomerular Filtration Rate [...] GFR. Performed By: #### 2 4321-2 #### [facility] CLIA [id number] [address] [place] [address] [place] Glucose [Mass/Vol] 144 mg/dL High 74-99 [facility] Comment on above: Order Comment: Alejandra martin Type: BLOOD SPECIMEN Ordering Facility: [facility] Address: [address] [place] [address] Result Comment: The [place] [employer] (ADA) provides guidance for cutoff [...] Standards of Medical Care in Diabetes 2016, [place] [employer]. Diabetes Care. 2016.39(Suppl 1). Performed By: #### 2 4321-2 #### [facility] CLIA [id number] [address] [place] [address] [place] Potassium [Moles/Vol] 4.0 mmol/L Normal 3.7-5.1 [facility] Comment on above: Order Comment: Alejandra martin Type: BLOOD SPECIMEN Ordering Facility: [facility] Address: [address] [place] [address] Performed By: #### 2 4321-2 #### [facility] CLIA [id number] [address] [place] [address] [place] Sodium [Moles/Vol] 142 mmol/L Normal 136-144 [facility] Comment on above: Order Comment: Speci men Type: BLOOD SPECIMEN Ordering Facility: [facility] Address: [address] [place] [address] Performed By: #### 2 4321-2 #### [facility] CLIA [id number] [address] [place] [address] [place] Urea nitrogen [Mass/Vol] 19 mg/dL Normal 7-21 [facility] Comment on above: Order Comment: Speci men Type: BLOOD SPECIMEN Ordering Facility: [facility] Address: [address] [place] [address] Performed By: #### 2 4321-2 #### [facility] CLIA [id number] [address] [place] [address] [place] Wound Ctr History AND Physic vanessa 04-21-2025 Wound Ctr History & Physical [facility] [address] [place] [address] H P Exam - Wound Care 04/21/25 1750 MR#: [id number] Acct: [id number] Name: GERALDINE HAIRSTON Rep #: [id number] : 1950 74 From: Cedric Gibbons MD PCP: Dr. Chance Kolb MD Status:[facility] Location: History of Present Illness Date of Service: 04/20/25 Chief Complaint: Traumatic avulsion injury of the right medial calf History of Wound: This is a 74-year-old female who sustained a traumatic injury to her left medial calf on January 01, 2025. At the time of her injury, she presented to the [facility] Emergency Department, where she was found [...] her age, though has a history of dqrf-lekg-zqxjfrftznkfuq a, GERD, hypertension, hypothyroidism, and osteoporosis. She [...] remains a patient at the Wound Center. [facility] Medical History Non-pressure chronic ulcer of right [...] use typ (more content not included)... Normal [facility] Wound Ctr History AND Physic vanessa 04-01-2025 Wound Ctr History & Physical [facility] [address] [place] [address] H P Exam - Wound Care 04/01/25 1135 MR#: [id number] Acct: [id number] Name: GERALDINE HAIRSTON Rep #: [id number] : 1950 74 From: Cedric Gibbons MD [...] of her injury, she presented to the [facility] Emergency Department, where she was found [...] her age, though has a history of gruk-kvlc-repwphpjnoabwf a, GERD, hypertension, hypothyroidism, and osteoporosis. She denies a history of diabetes mellitus, myocardial infarction, cerebrovascular accident, renal disease, and pulmonary disease. Her BMI is 19.5. She is . [facility] Medical History Non-pressure chronic ulcer of right [...] Appearance: cooperat (more content not included)... Normal [facility] Wound Ctr History AND Physic vanessa 03-27-2025 Wound Ctr History & Physical [facility] [address] [place] [address] H P Exam - Wound Care 03/27/25 1730 MR#: [id number] Acct: [id number] Name: GERALDINE HAIRSTON Rep #: [id number] : 1950 74 From: Cedric Gibbons MD [...] of her injury, she presented to the [facility] Emergency Department, where she was found [...] her age, though has a history of qqvq-gahi-wsbncnhjmnadzw a, GERD, hypertension, hypothyroidism, and osteoporosis. She denies a history of diabetes mellitus, myocardial infarction, cerebrovascular accident, renal disease, and pulmonary disease. Her BMI is 19.5. She is . [facility] Medical History Non-pressure chronic ulcer of right [...] cooperative, comfortable (more content not included)... Normal [facility] CNOVon 03-22-2025 CNOV Office Visit (INTMWS ) -------- GERALDINE HAIRSTON ([id number]) 1950 F Date Time Provider Department 03/22/25 9:40 AM NGUYỄN STRINGERMROSIE During your visit today, we recorded the following information about you: Pulse Respiration Blood pressure Weight 74/minute 16/minute 100/58 43.5 kg Nguyễn Stringer, MIMI.DESK CLERKS SUPERVISOR 03/22/2025 10:28 AM Signed Subjective Patient ID: Geraldine is a 74 year old female who presents for ER F/U. HPI Presents for an ER follow-up visit. She was seen at [facility] on March 13 and March 18, 2025. She was seen in ER on March 13, 2025 for laceration attributed to her dog. Sutures were placed. Noted to be up-to-date on Tdap. She was seen at [facility] in March 18 after sustaining a [...] of lower extremity, unspecified laterality, subsequent encounter (S81.619D) 2. Visit for suture removal (Z48.02) - [...] osteoporosis and lumbar compression fracture. Nguyễn Stringer APRN.DESK CLERKS SUPERVISOR Medical Decision Making: Problems: Low: Acute, uncomplicated illness or injury Moderate: 1+ chronic illnesses with change Data: Unique source(s) for external note(s) reviewed: 1 Unique test result(s) reviewed: 1 Unique test(s) ordered: 1 Risk: Moderate: Drug management Medical Decision Making Level: 4 - Moderate Nguyễn Stringer APRN.DESK CLERKS SUPERVISOR 03/22/2025 10:12 (more content not included)... Normal [facility] Emergency Department Summary on 03-18-2025 Emergency Department Summary [facility] Medical Records Department [address] [facility] [address] [address] Emergency Department Summary 03/18/25 MR#: [id number] Acct: [id number] Name: GERALDINE HAIRSTON Elin Rep #: [id number] : 1950 74 From: Will Knapp DO [...] management. Patient denies any blood thinning medications. [facility] Medical History Non-pressure chronic ulcer of left [...] be a (more content not included)... Normal [facility] Femur Min 2 Viewson 03-18-20 Femur Min 2 Views [facility] Imaging Services [address] [place], [place] [address] Femur Min 2 Views MR#: [id number] Acct: [id number] Name: GERALDINE HAIRSTON Rep #: [id number] : 1950 F 74 From: Carmine lay MD PCP: Dr. Chance Kolb MD Status: REG ER Study: Femur Min 2 Views Date of Exam: 03/18/25 Exam# [id number] Ordering Dr: Will Knapp DO PROCEDURE: FEMUR MIN 2 VIEWS 03/18/2025 REASON FOR EXAM: FALL TECHNIQUE: FEMUR MIN 2 VIEWS COMPARISON: None FINDINGS: Bones: No fracture or dislocation. Joints: Moderate degree of joint space narrowing of the left hip joint. No fracture or dislocation. Soft tissues: Soft tissues are unremarkable. Other: RAD/Femur Min 2 Views IMPRESSION: NO ACUTE FRACTURE OR DISLOCATION. Reading Location: [facility] CC: Dr. Chance Kolb MD; Dr. Will Knapp DO Scale Model Maker: Signed Normal [facility] Pelvis 1 or 2 Viewson 2024 Pelvis 1 or 2 Views [facility] Imaging Services [address] [place] [address] Pelvis 1 or 2 Views MR#: [id number] Acct: [id number] Name: RONALDOYOSELINGERALDINE D Rep #: [id number] : 1950 F 74 From: Carmine lay MD PCP: Dr. Chance Kolb MD Status: REG ER Study: Pelvis 1 or 2 Views Date of Exam: 03/18/25 Exam# [id number] Ordering Dr: Will Knapp DO PROCEDURE: PELVIS [...] No acute fracture is seen. Reading Location: [facility] CC: Dr. Chance Kolb MD; Dr. Will Knapp DO Scale Model Maker: Signed Normal [facility] Spine Lumbar without Contras ton 03-18-2025 Spine Lumbar without Contrast [facility] Imaging Services [address] [place], [place] [id number] Spine Lumbar without Contrast MR#: [id number] Acct: [id number] Name: GERALDINE HAIRSTON Rep #: [id number] : 1950 F 74 From: Carmine lay MD PCP: Dr. Chance Kolb MD Status: REG ER Study: Spine Lumbar without Contrast Date of Exam: Exam# [id number] Ordering Dr: Will Knapp DO PROCEDURE: SPINE [...] endplate of the L4 vertebrae. Reading Location: [facility] CC: Dr. Chance Kolb MD; Dr. Will Knapp DO Scale Model Maker: Signed Normal [facility] Emergency Department Summary on 03-13-2025 Emergency Department Summary [facility] Medical Records Department [address] [place] [address] Emergency Department Summary 03/13/25 MR#: [id number] Acct: [id number] Name: GERALDINE HAIRSTON Rep #: [id number] : 1950 74 From: Will Knapp DO [...] last which was approximately 2 months ago. [facility] Medical History Non-pressure chronic ulcer of left [...] Patient f (more content not included)... Normal [facility] Wound Ctr History AND Physic vanessa 03-11-2025 Wound Ctr History & Physical [facility] [address] [place] [address] H P Exam - Wound Care 03/11/25 1318 MR#: [id number] Acct: [id number] Name: GERALDINE HAIRSTON Rep #: [id number] : 1950 74 From: Cedric Gibbons MD [...] of her injury, she presented to the [facility] Emergency Department, where she was found [...] her age, though has a history of dkbs-gcko-wkjnkamqumhvra a, GERD, hypertension, hypothyroidism, and osteoporosis. She denies a history of diabetes mellitus, myocardial infarction, cerebrovascular accident, renal disease, and pulmonary disease. Her BMI is 19.5. She is . [facility] Medical History Non-pressure chronic ulcer of left [...] normocephalic a (more content not included)... Normal [facility] Wound Ctr History AND Physic vanessa 03-03-2025 Wound Ctr History & Physical [facility] [address] [place] [address] H P Exam - Wound Care 03/03/25 1057 MR#: [id number] Acct: [id number] Name: GERALDINE HAIRSTON Rep #: [id number] : 1950 74 From: Cedric Gibbons MD [...] of her injury, she presented to the [facility] Emergency Department, where she was found [...] her age, though has a history of ftaq-vjxu-oxmbssmlcenggv a, GERD, hypertension, hypothyroidism, and osteoporosis. She denies a history of diabetes mellitus, myocardial infarction, cerebrovascular accident, renal disease, and pulmonary disease. Her BMI is 19.5. She is . [facility] Medical History Non-pressure chronic ulcer of left [...] Air Weight (more content not included)... Normal [facility] Wound Ctr History AND Physic vanessa 02-24-2025 Wound Ctr History & Physical [facility] [address] [place] [address] H P Exam - Wound Care 02/24/25 1110 MR#: [id number] Acct: [id number] Name: GERALDINE HAIRSTON Rep #: [id number] : 1950 74 From: Cedric Gibbons MD [...] of her injury, she presented to the [facility] Emergency Department, where she was found [...] her age, though has a history of bnxt-apjo-zjjuddlymmuqma a, GERD, hypertension, hypothyroidism, and osteoporosis. She denies a history of diabetes mellitus, myocardial infarction, cerebrovascular accident, renal disease, and pulmonary disease. Her BMI is 19.5. She is . [facility] Medical History Non-pressure chronic ulcer of left [...] Index (B (more content not included)... Normal [facility] Wound Ctr History AND Physic vanessa 02-17-2025 Wound Ctr History & Physical [facility] [address] [place] [address] H P Exam - Wound Care 02/17/25 1127 MR#: [id number] Acct: [id number] Name: GERALDINE HAIRSTON Rep #: [id number] : 1950 74 From: Cedric Gibbons MD [...] of her injury, she presented to the [facility] Emergency Department, where she was found [...] her age, though has a history of quvf-eyck-ajwxzxskknfmqb a, GERD, hypertension, hypothyroidism, and osteoporosis. She denies a history of diabetes mellitus, myocardial infarction, cerebrovascular accident, renal disease, and pulmonary disease. Her BMI is 19.5. She is . [facility] Medical History Non-pressure chronic ulcer of left [...] Air Weight (more content not included)... Normal [facility] Wound Ctr History AND Physic vanessa 02-10-2025 Wound Ctr History & Physical [facility] [address] [facility] [address] [address] H P Exam - Wound Care 02/10/25 1015 MR#: [id number] Acct: [id number] Name: GERALDINE HAIRSTON Rep #: [id number] : 1950 74 From: Cedric Gibbons MD [...] of her injury, she presented to the [facility] Emergency Department, where she was found [...] her age, though has a history of nlsv-smuh-uwpsaeiidzbwmo a, GERD, hypertension, hypothyroidism, and osteoporosis. She denies a history of diabetes mellitus, myocardial infarction, cerebrovascular accident, renal disease, and pulmonary disease. Her BMI is 19.5. She is . [facility] Medical History Non-pressure chronic ulcer of left [...] Air Weight (more content not included)... Normal [facility] Wound Ctr History AND Physic vanessa 02-02-2025 Wound Ctr History & Physical [facility] [address] [place] [address] H P Exam - Wound Care 02/02/25 1643 MR#: [id number] Acct: [id number] Name: GERALDINE HAIRSTON Elin Rep #: [id number] : 1950 74 From: Cedric Gibbons MD [...] of her injury, she presented to the [facility] Emergency Department, where she was found [...] her age, though has a history of zzeh-xwdu-wpzdizmjuucckv a, GERD, hypertension, hypothyroidism, and osteoporosis. She denies a history of diabetes mellitus, myocardial infarction, cerebrovascular accident, renal disease, and pulmonary disease. Her BMI is 19.5. She is . [facility] Medical History (Updated 02/02/25 @ 16:48 by [...] Mass I (more content not included)... Normal [facility] CNOVon 01-29-2025 CNOV Office Visit (INTMWS ) -------- GERALDINE HAIRSTON ([id number]) 1950 F Date Time Provider Department 01/29/25 11:00 AM MALACHI LILLY INTMWS During your visit today, we recorded the following information about you: Pulse Respiration Blood pressure Weight 82/minute 18/minute 104/62 42.1 kg Malachi Lilly APRN.HOME CARE ASSISTANT 01/29/2025 12:29 PM Signed SUBJECTIVE Geraldine Worthington [...] too hard physically. Seeing Dr. Gibbons with [facility] wound center. Geraldine also reports a persistent [...] vanessa 01-19-2025 Wound Ctr History & Physical [facility] [address] [place] [address] H P Exam - Wound Care 01/19/25 1900 MR#: [id number] Acct: [id number] Name: GERALDINE HAIRSTON Elin Rep #: [id number] : 1950 74 From: Cedric Gibbons MD [...] of her injury, she presented to the [facility] Emergency Department, where she was found [...] her age, though has a history of itwc-vysr-tjduyzrllmvbxl a, GERD, hypertension, hypothyroidism, and osteoporosis. She denies a history of diabetes mellitus, myocardial infarction, cerebrovascular accident, renal disease, and pulmonary disease. Her BMI is 19.5. She is . [facility] Medical History Traumatic open wound of lower [...] 19.5 Ph (more content not included)... Normal [facility] Wound Ctr History AND Physic vanessa 01-14-2025 Wound Ctr History & Physical [facility] [address] [place] [address] H P Exam - Wound Care 01/14/252007 MR#: [id number] Acct: [id number] Name: GERALDINE HAIRSTON Rep #: [id number] : 1950 74 From: Cedric Gibbons MD [...] of her injury, she presented to the [facility] Emergency Department, where she was found [...] her age, though has a history of wbic-eoig-vryvnovizsgtmu a, GERD, hypertension, hypothyroidism, and osteoporosis. She denies a history of diabetes mellitus, myocardial infarction, cerebrovascular accident, renal disease, and pulmonary disease. Her BMI is 19.5. She is . [facility] Medical History Traumatic open wound of lower [...] oriented to (more content not included)... Normal [facility] Wound Ctr History AND Physic vanessa 01-08-2025 Wound Ctr History & Physical [facility] [address] [place] [address] H P Exam - Wound Care 01/08/25 1454 MR#: [id number] Acct: [id number] Name: GERALDINE HAIRSTON Rep #: [id number] : 1950 74 From: Cedric Gibbons MD [...] of her injury, she presented to the [facility] Emergency Department, where she was found [...] her age, though has a history of hgjv-vwtl-tqzxycucdvddpo a, GERD, hypertension, hypothyroidism, and osteoporosis. She denies a history of diabetes mellitus, myocardial infarction, cerebrovascular accident, renal disease, and pulmonary disease. Her BMI is 19.5. She is . [facility] Medical History Traumatic open wound of lower [...] and orient (more content not included)... Normal [facility] Emergency Department Summary on 01-01-2025 Emergency Department Summary [facility] Medical Records Department [address] [place] [address] Emergency Department Summary 01/01/25 MR#: [id number] Acct: [id number] Name: GERALDINE HAIRSTON Rep #: [id number] : 1950 74 From: Crow Moreno PCP: [...] pressure. No other injuries. Tetanus Immunization: Unknown [facility] Medical History GERD (gastroesophageal reflux disease) HTN [...] tenderness present (more content not included)... Normal [facility] 25(OH)D3 [facility] 2024 25-hydroxyvitamin D3 [Mass/Vol] 100.0 ng/mL High 31.0-80.0 [facility] Comment on above: Order Comment: Alejandra martin Type: BLOOD SPECIMENOrdering Facility: [facility] Address: [address] [place] [address] Result Comment: Clas sification of 25 [place] Vitamin D status: Deficiency/Insufficiency: < or = 30 ng/ml. Sufficiency/Optimal Levels: 31-80 ng/mL Toxicity: > 100 ng/mL. Test performed by chemiluminescent immunoassay. Performed By: #### 1 989-3 ####[facility] [id number] [place] [address] [place] CBC panel Auto (Bld)on 12-17 Erythrocyte distribution width (RBC) [Ratio] 13.9 % Normal 11.5-15.0 [facility] Comment on above: Order Comment: Alejandra martin Type: BLOOD SPECIMEN Ordering Facility: [facility] Address: [address] [place] [address] Performed By: #### 5 8410-2 #### [facility] CLIA [id number] [address] [place] [address] [place] Hematocrit (Bld) [Volume fraction] 42.5 % Normal 36.0-46.0 [facility] Comment on above: Order Comment: Speci men Type: BLOOD SPECIMEN Ordering Facility: [facility] Address: [address] [place] [address] Performed By: #### 5 8410-2 #### [facility] CLIA [id number] [address] [place] [address] [place] Hemoglobin (Bld) [Mass/Vol] 13.9 g/dL Normal 11.5-15.5 [facility] Comment on above: Order Comment: Speci men Type: BLOOD SPECIMEN Ordering Facility: [facility] Address: [address] [place] [address] Performed By: #### 5 8410-2 #### [facility] CLIA [id number] [address] [place] [address] [place] MCH (RBC) [Entitic mass] 30.5 pg Normal 26.0-34.0 [facility] Comment on above: Order Comment: Speci men Type: BLOOD SPECIMEN Ordering Facility: [facility] Address: [address] [place] [address] Performed By: #### 5 8410-2 #### [facility] CLIA [id number] [address] [place] [address] [place] MCHC (RBC) [Mass/Vol] 32.7 g/dL Normal 30.5-36.0 [facility] Comment on above: Order Comment: Speci men Type: BLOOD SPECIMEN Ordering Facility: [facility] Address: [address] [place] [address] Performed By: #### 5 8410-2 #### [facility] CLIA [id number] [address] [place] [address] [place] MCV (RBC) [Entitic vol] 93.4 fL Normal 80.0-100.0 [facility] Comment on above: Order Comment: Speci men Type: BLOOD SPECIMEN [facility] [facility] Address: [address] [place] [address] Performed By: #### 5 8410-2 #### [facility] CLIA [id number] [address] [place] [address] [place] Nucleated RBC (Bld) [#/Vol] 10*3/uL Normal <0.01 [facility] Comment on above: Order Comment: Speci men Type: BLOOD SPECIMEN Ordering Facility: [facility] Address: [address] [place] [address] Performed By: #### 5 8410-2 #### [facility] CLIA [id number] [address] [place] [address] [place] Platelet mean volume (Bld) [Entitic vol] 10.4 fL Normal 9.0-12.7 [facility] Comment on above: Order Comment: Speci men Type: BLOOD SPECIMEN Ordering Facility: [facility] Address: [address] [place] [address] Performed By: #### 5 8410-2 #### [facility] CLIA [id number] [address] [place] [address] [place] Platelets (Bld) [#/Vol] 266 10*3/uL Normal 150-400 [facility] Comment on above: Order Comment: Speci men Type: BLOOD SPECIMEN Ordering Facility: [facility] Address: [address] [place] [address] Performed By: #### 5 8410-2 #### [facility] CLIA [id number] [address] [place] [address] [place] RBC (Bld) [#/Vol] 4.55 10*6/uL Normal 3.90-5.20 [facility] Comment on above: Order Comment: Speci men Type: BLOOD SPECIMEN Ordering Facility: [facility] Address: [address] [place] [address] Performed By: #### 5 8410-2 #### [facility] CLIA [id number] [address] [place] [address] [place] WBC (Bld) [#/Vol] 9.87 10*3/uL Normal 3.70-11.00 [facility] Comment on above: Order Comment: Speci men Type: BLOOD SPECIMEN Ordering Facility: [facility] Address: [address] [place] [address] Performed By: #### 5 8410-2 #### [facility] CLIA [id number] [address] [place] [address] [place] Comprehensive metabolic 2000 panelon 12-17-2024 Albumin [Mass/Vol] 4.5 g/dL Normal 3.9-4.9 [facility] Comment on above: Order Comment: Speci men Type: BLOOD SPECIMENOrdering Facility: [facility] Address: [address] [place] [address] Performed By: #### 2 4323-8, 20439-1, 3024-7, 3051-0 ####[facility] [id number] [place] [address] [place] ALP [Catalytic activity/Vol] 58 U/L Normal 34-123 [facility] Comment on above: Order Comment: Speci men Type: BLOOD SPECIMENOrdering Facility: [facility] Address: [address] [place] [address] Performed By: #### 2 4323-8, 05633-1, 3024-7, 3051-0 ####[facility] [id number] [place] [address] [place] ALT [Catalytic activity/Vol] 21 U/L Normal 7-38 [facility] Comment on above: Order Comment: Speci men Type: BLOOD SPECIMENOrdering Facility: [facility] Address: [address] [place] [address] Performed By: #### 2 4323-8, 13186-5, 3024-7, 3051-0 ####[facility] [id number] [place] [address] [place] Anion gap [Moles/Vol] 15 mmol/L Normal 8-15 [facility] Comment on above: Order Comment: Speci men Type: BLOOD SPECIMENOrdering Facility: [facility] Address: [address] [place] [address] Performed By: #### 2 4323-8, 93148-1, 3024-7, 3051-0 ####[facility] [id number] [place] [address] [place] AST [Catalytic activity/Vol] 20 U/L Normal 13-35 [facility] Comment on above: Order Comment: Speci men Type: BLOOD SPECIMENOrdering Facility: [facility] Address: [address] [place] [address] Performed By: #### 2 4323-8, 72390-2, 3024-7, 3051-0 ####[facility] [id number] [place] [address] [place] Bilirubin [Mass/Vol] 0.3 mg/dL Normal 0.2-1.3 [facility] Comment on above: Order Comment: Speci men Type: BLOOD SPECIMENOrdering Facility: [facility] Address: [address] [place] [address] Performed By: #### 2 4323-8, 57990-8, 3024-7, 3051-0 ####[facility] [id number] [place] [address] [place] Calcium [Mass/Vol] 9.4 mg/dL Normal 8.5-10.2 [facility] Comment on above: Order Comment: Speci men Type: BLOOD SPECIMENOrdering Facility: [facility] Address: [address] [place] [address] Performed By: #### 2 4323-8, 83608-3, 3024-7, 3051-0 ####[facility] [id number] [place] [address] [place] Chloride [Moles/Vol] 102 mmol/L Normal 98-107 [facility] Comment on above: Order Comment: Speci men Type: BLOOD SPECIMENOrdering Facility: [facility] Address: [address] [place] [address] Performed By: #### 2 4323-8, 47815-7, 3024-7, 3051-0 ####[facility] [id number] [place] [address] [place] CO2 [Moles/Vol] 24 mmol/L Normal 22-30 [facility] Comment on above: Order Comment: Speci men Type: BLOOD SPECIMENOrdering Facility: [facility] Address: [address] [place] [address] Performed By: #### 2 4323-8, 98495-0, 3024-7, 3051-0 ####[facility] [id number] [place] [address] [place] Creatinine [Mass/Vol] 0.95 mg/dL Normal 0.58-0.96 [facility] Comment on above: Order Comment: Speci men Type: BLOOD SPECIMENOrdering Facility: [facility] Address: [address] [place] [address] Performed By: #### 2 4323-8, 96718-7, 3024-7, 3051-0 ####[facility] [id number] [place] [address] [place] Creatinine and Glomerular filtration rate.predicted panel (S/P/Bld) 63 mL/min/1.73m??? Normal >=60 [facility] Comment on above: Order Comment: Speci men Type: BLOOD SPECIMENOrdering Facility: [facility] Address: [address] [place] [address] Result Comment: Maryjane mated Glomerular Filtration Rate [...] actual GFR. Performed By: #### 2 4323-8, 53730-1, 3023-7, 305-0 ####[facility] [id number] [facility] [address] [place] [address] [place] Glucose [Mass/Vol] 77 mg/dL Normal 74-99 [facility] Comment on above: Order Comment: Alejandra martin Type: BLOOD SPECIMENOrdering Facility: [facility] Address: [address] [place] [address] Result Comment: The [place] Diabetes Association (ADA) provides guidance for cutoff [...] Standards of Medical Care in Diabetes 2016, [place] [employer] Association. Diabetes Care. 2016.39(Suppl 1). Performed By: #### 2 4323-8, 20387-1, 3024-03, 3050-0 ####[facility] [id number] [facility] [address] [address] [place] Potassium [Moles/Vol] 3.3 mmol/L Low 3.7-5.1 [facility] Comment on above: Order Comment: Alejandra martin Type: BLOOD SPECIMENOrdering Facility: [facility] Address: [address] [place] [address] Performed By: #### 2 4323-8, 61691-3, 3023-7, 305-0 ####[facility] [id number] [facility] [address] [address] [place] Protein [Mass/Vol] 7.1 g/dL Normal 6.3-8.0 [facility] Comment on above: Order Comment: Speci men Type: BLOOD SPECIMENOrdering Facility: [facility] Address: [address] [place] [address] Performed By: #### 2 4323-8, 80918-2, 3024-7, 3051-0 ####[facility] [id number] [place] [address] [place] Sodium [Moles/Vol] 141 mmol/L Normal 136-144 [facility] Comment on above: Order Comment: Speci men Type: BLOOD SPECIMENOrdering Facility: [facility] Address: [address] [place] [address] Performed By: #### 2 4323-8, 62429-8, 3024-7, 3051-0 ####[facility] [id number] [place] [address] [place] Urea nitrogen [Mass/Vol] 20 mg/dL Normal 7-21 [facility] Comment on above: Order Comment: Speci men Type: BLOOD SPECIMENOrdering Facility: [facility] Address: [address] [place] [address] Performed By: #### 2 4323-8, 57620-9, 3024-7, 3051-0 ####[facility] [id number] [place] [address] [place] Lipid 1996 panelon 5 Cholesterol [Mass/Vol] 305 mg/dL High <200 [facility] Comment on above: Order Comment: Speci men Type: BLOOD SPECIMENOrdering Facility: [facility] Address: [address] [place] [address] Result Comment: <200 mg/dL, Desirable 200-239 mg/dL, Borderline high >239 mg/dL, High Performed By: #### 2 4323-8, 56564-2, 3024-7, 3051-0 ####[facility] [id number] [place] [address] [place] Cholesterol in HDL [Mass/Vol] 114 mg/dL Normal >39 [facility] Comment on above: Order Comment: Bienvenidosathish martin Type: BLOOD SPECIMENOrdering Facility: [facility] Address: [address] [place] [address] Result Comment: 40-5 9 mg/dL, Acceptable >59 mg/dL, High: Negative risk factor for coronary heart disease <40 mg/dL, Low: Positive risk factor for coronary heart disease Performed By: #### 2 4323-8, 68922-2, 3024-7, 3051-0 ####[facility] [id number] [address] [place] Cholesterol in LDL [Mass/Vol] 172 mg/dL High <100 [facility] Comment on above: Order Comment: Alejandra mario Type: BLOOD SPECIMENOrdering Facility: [facility] Address: [address] [place] [address] Result Comment: <100 mg/dL, Optimal 100-129 mg/dL, Near optimal/above optimal 130-159 mg/dL, Borderline high 160-189 mg/dL, High >189 mg/dL, Very high Secondary prevention optimal LDL Cholesterol levels are recommended to be < 70 mg/dL Performed By: #### 2 4323-8, 19912-2, 3024-7, 3051-0 ####[facility] [id number] [address] [facility] Cholesterol in LDL/Cholesterol in HDL [Mass ratio] 1.51 {ratio} Normal <2.54 [facility] Comment on above: Order Comment: Bienvenidosathish martin Type: BLOOD SPECIMENOrdering Facility: [facility] Address: [address] [place] [address] Result Comment: Refe rence: 1. National Cholesterol Education Program ATP III Guideline At-A-Glance Quick Desk Reference: National Heart, Lung, and Blood [place]. National Institutes of Health. 2001: NIH Publication No. 01-3305. 2. An International Atherosclerosis Society position paper: global recommendations for the management of dyslipidemia: executive summary, Atherosclerosis. 2014: 232(2):410-413. Performed By: #### 2 4323-8, 92891-9, 3023-7, 305-0 ####[facility] [id number] [address] [address] [place] Cholesterol in VLDL [Mass/Vol] 19 mg/dL Normal <30 [facility] Comment on above: Order Comment: Speci men Type: BLOOD SPECIMENOrdering Facility: [facility] Address: [address] [place] [address] Performed By: #### 2 4323-8, 50788-3, 3024-03, 3050-0 ####[facility] [id number] [address] [address] [place] Cholesterol non HDL [Mass/Vol] 191 mg/dL High <130 [facility] Comment on above: Order Comment: Speci men Type: BLOOD SPECIMENOrdering Facility: [facility] Address: [address] [place] [address] Result Comment: <130 mg/dL, Optimal 130-159 mg/dL, Near optimal/above optimal 160-189 mg/dL, Borderline high 190-219 mg/dL, High >219 mg/dL, Very high Secondary prevention optimal non HDL Cholesterol levels are recommended to be <100 mg/dL Performed By: #### 2 4323-8, 37235-6, 3024-03, 305-0 ####[facility] [id number] [address] [address] [place] Cholesterol.total/Cho lesterol in HDL [Mass ratio] 2.68 {ratio} Normal <5.10 [facility] Comment on above: Order Comment: Speci men Type: BLOOD SPECIMENOrdering Facility: [facility] Address: [address] [place], [place] [address] Performed By: #### 2 4323-8, 32740-9, 7, 305-0 ####[facility] [id number] [address] [place] [address] [place] FASTING TIME 12 hrs Normal [facility] Comment on above: Order Comment: Speci men Type: BLOOD SPECIMENOrdering Facility: [facility] Address: [address] [place], [place] [address] Performed By: #### 2 4323-8, 36003-5, 3024-7, 3051-0 ####[facility] [id number] [address] [place] [address] [place] Triglyceride [Mass/Vol] 95 mg/dL Normal <150 [facility] Comment on above: Order Comment: Speci men Type: BLOOD SPECIMENOrdering Facility: [facility] Address: [address] [place] [address] Result Comment: <150 mg/dL, Normal 150-199 mg/dL, Borderline high 200-499 mg/dL, High >499 mg/dL, Very high Performed By: #### 2 4323-8, 93029-2, 3024-7, 3051-0 ####[facility] [id number] [address] [place] [address] [place] Magnesium SerPl-mCncon 12-17 Magnesium [Mass/Vol] 2.0 mg/dL Normal 1.7-2.3 [facility] Comment on above: Order Comment: Speci men Type: BLOOD SPECIMENOrdering Facility: [facility] Address: [address] [place] [address] Performed By: #### 1 9123-9, 3016-3 ####[facility] [id number] [address] [address] [place] T3Free SerPl-mCncon 12-18-19 25 Free T3 [Mass/Vol] 2.2 pg/mL Low 2.3-4.1 [facility] Comment on above: Order Comment: Speci men Type: BLOOD SPECIMENOrdering Facility: [facility] Address: [address] [place], [place] [address] [address] Performed By: #### 2 4323-8, 49826-2, 3024-7, 3051-0 ####[facility] [id number] [place] [address] [place] T4 Free SerPl-mCncon 025 Free T4 [Mass/Vol] 1.3 ng/dL Normal 0.9-1.7 [facility] Comment on above: Order Comment: Speci men Type: BLOOD SPECIMENOrdering Facility: [facility] Address: [address] [place] [address] Performed By: #### 2 4323-8, 48816-6, 3024-7, 3051-0 ####[facility] [id number] [place] [address] [place] TSH SerPl-aCncon 12-17-2024 TSH Qn 1.940 m[IU]/L Normal 0.270-4.200 [facility] Comment on above: Order Comment: Speci men Type: BLOOD SPECIMENOrdering Facility: [facility] Address: [address] [place], [place] [address] [address] Performed By: #### 1 9123-9, 3016-3 ####[facility] [id number] [address] [place] Sandra [facility] GERALDINE HAIRSTON ([id number]) 1950 F Date Time Provider Department 10/09/24 [...] Please review and advise, DANYELL Bishop Terri, [employer] 2024 3:53 PM Signed Urinalysis shows [...] Ordering Facility: [facility] Address: [address] [place] [address] Performed By: #### 2 4321-2 #### [facility] CLIA [id number] [address] [place] [address] [place] Bilirubin Ql (U) Negative Normal Negative [facility] Comment on above: Order Comment: Speci men Type: BLOOD SPECIMEN Ordering Facility: [facility] Address: [address] [place] [address] Performed By: #### 2 4321-2 #### [facility] CLIA [id number] [address] [place] [address] [place] Clarity (Unsp spec) Clear Normal Clear [facility] Comment on above: Order Comment: Speci men Type: BLOOD SPECIMEN Ordering Facility: [facility] Address: [address] [place] [address] Performed By: #### 2 4321-2 #### [facility] CLIA [id number] [address] [place] [address] [place] Color (U) Yellow Normal Yellow [facility] Comment on above: Order Comment: Speci men Type: BLOOD SPECIMEN Ordering Facility: [facility] Address: [address] [place] [address] Performed By: #### 2 4321-2 #### [facility] CLIA [id number] [address] [place] [address] [place] Epithelial cells LM.HPF (Urine sed) [#/Area] None Seen Normal [facility] Comment on above: Order Comment: Speci men Type: BLOOD SPECIMEN Ordering Facility: [facility] Address: [address] [place] [address] Performed By: #### 2 4321-2 #### [facility] CLIA [id number] [address] [place] [address] [place] Glucose Test strip (U) [Mass/Vol] Negative Normal Negative [facility] Comment on above: Order Comment: Speci men Type: BLOOD SPECIMEN Ordering Facility: [facility] Address: [address] [place] [address] Performed By: #### 2 4321-2 #### [facility] CLIA [id number] [address] [place] [address] [place] Hemoglobin Ql (U) Negative Normal Negative [facility] Comment on above: Order Comment: Speci men Type: BLOOD SPECIMEN Ordering Facility: [facility] Address: [address] [place], [place] [address] Performed By: #### 2 4321-2 #### [facility] CLIA [id number] [address] [place] [address] [place] Hyaline casts (Urine sed) [#/Area] 0 /[LPF] Normal 0 /LPF [facility] Comment on above: Order Comment: Speci men Type: BLOOD SPECIMEN Ordering Facility: [facility] Address: [address] [place] [address] Performed By: #### 2 4321-2 #### [facility] CLIA [id number] [address] [place] [address] [place] Ketones Ql (U) Negative Normal Negative [facility] Comment on above: Order Comment: Speci men Type: BLOOD SPECIMEN Ordering Facility: [facility] Address: [address] [place] [address] Performed By: #### 2 4321-2 #### [facility] CLIA [id number] [address] [place] [address] [place] Leukocyte esterase Test strip Ql (U) Negative Normal Negative [facility] Comment on above: Order Comment: Speci men Type: BLOOD SPECIMEN Ordering Facility: [facility] Address: [address] [place] [address] Performed By: #### 2 4321-2 #### [facility] CLIA [id number] [address] [place] [address] [place] Nitrite Ql (U) Negative Normal Negative [facility] Comment on above: Order Comment: Speci men Type: BLOOD SPECIMEN Ordering Facility: [facility] Address: [address] [place] [address] Performed By: #### 2 4321-2 #### [facility] CLIA [id number] [address] [place] [address] [place] pH (U) 7.0 [pH] Normal <8.5 [facility] Comment on above: Order Comment: Speci men Type: BLOOD SPECIMEN Ordering Facility: [facility] Address: [address] [place] [address] Performed By: #### 2 4321-2 #### [facility] CLIA [id number] [address] [place], [place] [address] [place] Protein (U) [Mass/Vol] Negative Normal Negative [facility] Comment on above: Order Comment: Speci men Type: BLOOD SPECIMEN Ordering Facility: [facility] Address: [address] [place] [address] Performed By: #### 2 4321-2 #### [facility] CLIA [id number] [address] [place] [address] [place] RBC LM.HPF (Urine sed) [#/Area] 0-2 /HPF Normal 0-2 /HPF [facility] Comment on above: Order Comment: Speci men Type: BLOOD SPECIMEN Ordering Facility: [facility] Address: [address] [place] [address] Performed By: #### 2 4321-2 #### [facility] CLIA [id number] [address] [place] [address] [place] Specific gravity (U) [Rel density] 1.012 Normal 1.005-1.030 [facility] Comment on above: Order Comment: Speci men Type: BLOOD SPECIMEN Ordering Facility: [facility] Address: [address] [place] [address] Performed By: #### 2 4321-2 #### [facility] CLIA [id number] [address] [place] [address] [place] Urobilinogen Ql (U) 0.2 EU/dL Normal 0.2-1.0 EU/dL [facility] Comment on above: Order Comment: Speci men Type: BLOOD SPECIMEN Ordering Facility: [facility] Address: [address] [place] [address] Performed By: #### 2 4321-2 #### [facility] CLIA [id number] [address] [place] [address] [place] WBC LM.HPF (Urine sed) [#/Area] 0-5 /HPF Normal 0-5 /HPF [facility] Comment on above: Order Comment: Speci men Type: BLOOD SPECIMEN Ordering Facility: [facility] Address: [address] [place] [address] Performed By: #### 2 4321-2 #### [facility] CLIA [id number] [address] [place], [place] [address] [place] BD DXA - [...] years, Gender: Female SCANNER INFORMATION: DXA Model: [employer] - [facility] C [id number] Date Scanned: 08/17/2024 11:21 AM CLINICAL HISTORY: [...] FOR MORE INFORMATION ABOUT DIAGNOSIS AND TREATMENT: [facility] Osteoporosis and Metabolic Bone Disease:? www.ccf.org/arthritis/os kayleen National Osteoporosis Foundation:? www.nof.org International Society of Clinical Densitometry www.iscd.org Scale Model Maker: BAILEY Transcribe Date/Time: Aug 17 2024 3:29P [...] DATE OF EXAM: Aug 17 2024 11:21AM [facility] 0801 - BD DXA TRABECLR BONE SCORE (TBS) / PROCEDURE REASON: Asymptomatic postmenopausal status * * * * Physician Interpretation * * * * EXAMINATION: DXA BONE DENSITOMETRY BD DXA - AXIAL SKELETON, BD DXA TRABECLR BONE SCORE (TBS) PATIENT DEMOGRAPHICS: Age: 73 years, Gender: Female SCANNER INFORMATION: DXA Model: [employer] - [facility] C 12628 Date Scanned: 08/17/2024 11:21 AM CLINICAL HISTORY: [...] FOR MORE INFORMATION ABOUT DIAGNOSIS AND TREATMENT: [facility] Center for Osteoporosis and Metabolic Bone Disease:? www.ccf.org/arthritis/os kayleen National Osteoporosis Foundation:? www.nof.org International Society of Clinical Densitometry www.iscd.org Scale Model Maker: PSCB Transcribe Date/Time: Aug 17 2024 3:29P [...] years, Gender: Female SCANNER INFORMATION: DXA Model: InVisioneer - [facility] C 03015 Date Scanned: 08/17/2024 11:21 AM CLINICAL HISTORY: [...] or = 1.230) DIVISION OF RADIOLOGY Provider, [facility] Zoie [facility] - 08/17/2024 * * *Final Report* * [...] years, Gender: Female SCANNER INFORMATION: DXA Model: [facility] [facility] C 99026 Date Scanned: 08/17/2024 11:21 AM CLINICAL HISTORY: [...] FOR MORE INFORMATION ABOUT DIAGNOSIS AND TREATMENT: [facility] for Osteoporosis and Metabolic Bone Disease:? www.ccf.org/arthritis/os kayleen National Osteoporosis Foundation:? www.nof.org International Society of Clinical Densitometry www.iscd.org Scale Model Maker: BAILEY Transcribe Date/Time: Aug 17 2024 3:29P Dictated by : OILVE KEITA MD This examination was interpreted and the report reviewed and electronically signed by: OLIVE KEITA MD on Aug 17 2024 3:33PM EST [facility] DXA Skeletal system.axial Vi ews for bone densityon 08-17-2024 * * *Final Report* * * DATE OF EXAM: Aug 17 2024 11:21AM [facility] 0804 - BD DXA - AXIAL SKELETON / PROCEDURE REASON: Asymptomatic postmenopausal status * * * * Physician Interpretation * * * * EXAMINATION: DXA BONE DENSITOMETRY BD DXA - AXIAL SKELETON, BD DXA TRABECLR BONE SCORE (TBS) PATIENT DEMOGRAPHICS: Age: 73 years, Gender: Female SCANNER INFORMATION: DXA Model: [employer]isioneer - [facility] C 68072 Date Scanned: 08/17/2024 11:21 AM CLINICAL HISTORY: [...] 1.230) DIVISION OF RADIOLOGY Provider, Deanna Lino [facility] - 08/17/2024 * * *Final Report* * [...] years, Gender: Female SCANNER INFORMATION: DXA Model: [employer]isioneer - [facility] C 96338 Date Scanned: 08/17/2024 11:21 AM CLINICAL HISTORY: [...] FOR MORE INFORMATION ABOUT DIAGNOSIS AND TREATMENT: [facility] for Osteoporosis and Metabolic Bone Disease:? www.f.org/arthritis/os kayleen National Osteoporosis Foundation:? www.nof.org International Society of Clinical Densitometry www.iscd.org Scale Model Maker: BAILEY Transcribe Date/Time: Aug 17 2024 3:29P Dictated by : OLIVE KEITA MD This examination was interpreted and the report reviewed and electronically signed by: OLIVE KEITA MD on Aug 17 2024 3:33PM [facility] No Panel InformationOrdered By: [facility] Provider on 08-17-2024 LOWEST T-SCORE -3.7 [facility] No Panel Informationon 08-17 IMPRESSION: THE LOWEST [...] FOR MORE INFORMATION ABOUT DIAGNOSIS AND TREATMENT: [facility] for Osteoporosis and Metabolic Bone Disease:? www.ccf.org/arthritis/os kayleen National Osteoporosis Foundation:? www.nof.org International Society of Clinical Densitometry www.iscd.org Scale Model Maker: BAILEY Transcribe Date/Time: Aug 17 2024 3:29P Dictated by : OLIVE KEITA MD This examination was interpreted and the report reviewed and electronically signed by: OLIVE KEITA MD on Aug 17 2024 3:33PM [facility] DIVISION OF RADIOLOGY Radiology Study observation (narrative) [facility] CNTHERAPYon 08-14-2024 CNTHERAPY OT/PT/Speech Visit (PTWS) -------- GERALDINE HAIRSTON ([id number]) 1950 F Date Time Provider Department 08/14/24 12:30 PM BAILEY MADRIGAL PTROSIE Date Time Provider Department Center 08/14/2024 12:30 PM [id number] MADRIGAL PTROSIE Duval Reason for Visit: PT [...] [facility] GERALDINE HAIRSTON ([id number]) 1950 F Date Time Provider Department 08/07/24 [...] review and advise further. ADÁN Dalton Terri, APRN.DESK CLERKS SUPERVISOR 08/07/2024 3:24 PM Signed Switch to [...] CNTHERAPY OT/PT/Speech Visit (PTWS) -------- GERALDINE HAIRSTON ([id number]) 1950 F Date Time Provider Department 08/07/24 12:30 PM BAILEY MADRIGAL Date Time Provider Department [facility] 08/07/2024 12:30 PM [id number] MADRIGAL Reason for Visit: Physical Therapy [503] [...] AEROSOL Two sprays each nostril twice daily. 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. [employer]/ Date: 08-07-2024 Prepared By: Bailey Madrigal Program [...] THERAPY NTon 08-07-2024 THERAPY NT HNO ID: [id number] Author: BAILEY MADRIGAL PT Service: ? Author Type: Physical Therapist Type: Therapy (PT/OT/Speech/Resp) Filed: 08/07/2024 12:57 Note Text: Program_ID:[id number] Access Code: [email or web address] URL: [email or web address]/ Date: 08-07-2024 Prepared By: Bailey Madrigal Program [...] Office Visit (INTMWS ) -------- GERALDINE HAIRSTON ([id number]) 1950 F Date Time Provider Department 07/27/24 12:20 PM NGUYỄN STRINGER INTMWS During your visit today, we recorded the following information about you: Pulse Respiration Blood pressure Weight 88/minute 16/minute 89/54 42 kg Nguyễn Stringer APRN.DESK CLERKS SUPERVISOR 07/27/2024 12:54 PM Signed SUBJECTIVE: Shingrix [...] CNTHERAPY OT/PT/Speech Visit (PTWS) -------- GERALDINE HAIRSTON ([id number]) 1950 F Date Time Provider Department 07/27/24 3:30 PM BAILEY MADRIGAL PTROSIE Date Time Provider Department Center 07/27/2024 3:30 PM [id number] MADRIGAL PTWS Adarsh Duval Reason for Visit: [...] AEROSOL Two sprays each nostril twice daily. 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 Author Type: Physical Therapist Type: Therapy (PT/OT/Speech/Resp) Filed: 07/27/2024 15:56 Note Text: Program_ID:[id number] Access Code: [email or web address] URL: [email or web address]://[email or web address]/ Date: 07-27-2024 Prepared By: Bailey Madrigal Program [...] on above: Performed By: #### 6 30-4 ####[facility] LABCLIA [id number] [place] [id number] [facility] CNOVon 07-25-2024 CNOV Office Visit (UCWSTR ) -------- GERALDINE HAIRSTON ([id number]) 1950 F Date Time Provider Department 07/25/24 10:30 AM [facility] During your visit today, we [...] plan and verbalizes understanding. Stephanie Garcia, Student ADMINISTRATIVE ASSISTANT RECEPTIONIST Complete dose of antibiotic Follow-up with PCP in 2-3 days Monitor for signs of infection, fever, increased pain, nausea and or vomiting in the presence of pain. Carmen Miranda APRN.[facility] 07/25/2024 11:58 AM Signed Subjective Geraldine [...] IBS and sees a GI provider in [place]. She states that she recently started physical [...] (POC)on 2023 BILIRUBIN UA (POCT) Negative Negative [facility] CLARITY UA (POCT) Turbid [facility] COLOR UA (POCT) Yellow [facility] GLUCOSE UA (POCT) Negative Negative mg/dL [facility] Hemoglobin Ql (U) Trace-intact Abnormal Negative [facility] Interpretation and review of laboratory results Abnormal [facility] KETONE UA (POCT) Negative Negative mg/dL [facility] LEUKOCYTES UA (POCT) Trace Abnormal Negative [facility] NITRITE UA (POCT) Negative Negative [facility] PH UA (POCT) 6.5 4.5 - 8.0 [facility] Protein Ql (U) Negative Negative mg/dL [facility] SPECIFIC GRAVITY UA (POCT) 1.010 1.005 - 1.030 [facility] UROBILINOGEN UA (POCT) 0.2 Normal E.U./dL [facility] Location:[facility], [address], [place], [address] [facility] POINT OF CARE [facility] [id number] 07-17-2024 [id number] HNO ID: [id number] Author: BAILEY MADRIGAL PT Service: ? Author Type: Physical Therapist Type: [id number] Filed: 07/17/2024 13:55 Note Text: [facility] Rehabilitation and Sports Therapy Physical Therapy Plan of Care Certification Patient Name: Geraldine Hairston : 1950 CC #: [id number] Date: 07/17/2024 To: Chance Kolb MD From [...] Planned: 6 Planned Treatment Interventions: Therapeutic exercise (60550), Manual therapy (22764), Therapeutic activities (94051), Self-usp management (47596), Gait Training (06430), Neuromuscular re-education (54170) PLAN FOR NEXT VISIT: assess symmptom response to rpeeated lumbar flexion Patient demonstrates good understanding of plan of care and treatment. The above goals and plan of care were discussed and agreed upon by patient/family. For further details regarding this patient refer to the Physical Therapy electronically documented visit dated 07/17/2024. Provider Attestation I have reviewed the treatment plan for Geraldine Hairston, [facility]# [id number] for the period of 07/17/24 -- 08/28/24, established on 07/17/2024. Signature certifies the need for therapy services. Normal [facility] CNTHERAPYon 07-17-2024 CNTHERAPY OT/PT/Speech Visit (PTWS) -------- GERALDINE HAIRSTON ([id number]) 1950 F Date Time Provider Department 07/17/24 1:15 PM BAILEY MADRIGAL PTROSIE Date Time Provider Department [facility] 07/17/2024 1:15 PM [id number] MADRIGAL PTROSIE Duval Reason for Visit: PT [...] AEROSOL Two sprays each nostril twice daily. Natural Gas Plant Technician: Therapy (PT/OT/Speech/Resp) ID: [id number] 07/17/2024 1:36 PM Author: BAILEY MADRIGAL Signed by BAILEY MADRIGAL PT on 07/17/2024 at 1:36 PM Document text: Program_ID:[id number] Access Code: [email or web address] URL: [email or web address]/ Date: 07-17-2024 Prepared By: Bailey Madrigal Program [...] THERAPY NTon 07-17-2024 THERAPY NT HNO ID: [id number] Author: BAILEY MADRIGAL PT Service: ? Author Type: Physical Therapist Type: Therapy (PT/OT/Speech/Resp) Filed: 07/17/2024 13:36 Note Text: Program_ID:[id number] Access Code: [email or web address] URL: [email or web address]. [employer]/ Date: 07-17-2024 Prepared By: Bailey Madrigal Program [...] [facility]-09-2024 Follow-up visit [id number] Geraldine Hairston 1950 [facility] Provider Department [facility] 01/09/2024 [id number] VAIL [facility] ORT DEB None Family History Family Status - Relation Status Age at Mother Alive Father Alive Level of Service:62105 [place] OFFICE/OUTPATIENT ESTABLISHED LOW MDM 20 MIN Reason for Visit and Comments: Follow-up [308440] - Right hand pain Normal [facility] Progress Noteon 01-09-2024 Progress Note [facility] [address] [place] [address] Dept: [phone] Dept 01/09/2024 Chief Complaint Patient presents with [...] Vail MD Hand and Upper Extremity Surgery [facility] Department of Orthopaedics and Sports Medicine 01/09/2024 at 10:30 AM (Please note that portions of this note may have been completed with a voice recognition program. Efforts were made to edit the dictations but occasionally words are mis-transcribed.) Normal [facility] 36on 01-06-2024 36 Spoke to patient and scheduled appointment to discuss surgery details. Normal [facility] 36 Left message informi ng patient with number to call back with additional questions or concerns or to schedule surgery. Normal [facility] XR Lumbar spine 3 Viewson IMPRESSION: MILD SUPERIOR ENDPLATE COMPRESSION OF L4 IS AGE INDETERMINATE. ADDITIONAL DEGENERATIVE CHANGES AND ALIGNMENT ABNORMALITIES DESCRIBED Scale Model Maker: BAILEY Transcribe Date/Time: Jan 02 2024 2:48P Dictated by : SAVANA ARIAS MD This examination was interpreted and the report reviewed and electronically signed by: SAVANA ARIAS MD on Jan 02 2024 2:53PM [facility] DIVISION OF RADIOLOGY * * [...] L4. Age indeterminate. DIVISION OF RADIOLOGY Provider, [facility] - 01/02/2024 * * *Final [...] ADDITIONAL DEGENERATIVE CHANGES AND ALIGNMENT ABNORMALITIES DESCRIBED Scale Model Maker: BAILEY Transcribe Date/Time: Jan 02 2024 2:48P Dictated by : SAVANA ARIAS MD This examination was interpreted and the report reviewed and electronically signed by: SAVANA ARIAS MD on Jan 02 2024 2:53PM [facility] XR Lumbar spine 3 ViewsOrder ed By: Ccf Provider on 01-02-2024 [facility] 36on 12-31-2023 36 Thumb flexors most [...] we are on the same page. Normal [facility] XR Lumbar spine 3 Viewson Radiology Study observation (narrative) [facility] 36on 12-27-2023 36 Patient called in [...] its necessary to proceed with surgery. Normal [facility] 36on 09-27-2023 36 Spoke to patient, sh mahendra is recovering from rib fractures and will call when ready to proceed with surgery. Normal [place] [address]on 09-23-2023 36 Left message for pat ient to call back to schedule surgery. 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 Normal [facility] XR Ribs - right Views and Ch est PAon 09-03-2023 IMPRESSION: Acute fractures of the right seventh and 10th ribs. Scale Model Maker: BAILEY Transcribe Date/Time: Sep 03 2023 1:48P Dictated by : OLIVE KEITA MD This examination was interpreted and the report reviewed and electronically signed by: OLIVE KEITA MD on Sep 03 2023 1:52PM [facility] DIVISION OF RADIOLOGY * * [...] effusion or pneumothorax. DIVISION OF RADIOLOGY [facility], [facility]/03/[facility]23 * * *Final Report* * [...] of the right seventh and 10th ribs. Scale Model Maker: BAILEY Transcribe Date/Time: Sep 03 2023 1:48P Dictated by : OLIVE KEITA MD This examination was interpreted and the report reviewed and electronically signed by: OLIVE KEITA MD on Sep 03 2023 1:52PM EST [facility] Radiology Study observation (narrative) [facility] XR Ribs - right Views and Ch est PAOrdered By: Ccf Provider on 09-03-2023 [facility] 36on 08-29-2023 36 Records request sent to Adarsh Downey for Operative reports. Will have Yared review and advise on surgery orders once reports received. Normal [facility] Office Visiton 08-29-2023 Follow-up visit [id number] Geraldine Hairston 1950 F Date Provider Department Center 08/29/2023 [id number] VAIL [facility] None Family History Family Status - Relation Status Age at Mother Alive Father Alive Level of Service:18067 [place] OFFICE/OUTPATIENT ESTABLISHED MOD MDM 30-39 MIN Reason for Visit and Comments: Follow-up [817392] - Right hand MRI results Normal [facility] Progress Noteon 08-29-2023 Progress Note [facility] [address] [place] [address] Dept: [phone] Dept 08/29/2023 Chief Complaint Patient presents with [...] Hairston regarding the natural history, etiology, and watermelon inspector consequences of her condition. We discussed both [...] Follow-up: Geraldine will followup with my physician escrow assistant Rossy Holliday PA-C post operatively. She knows to call the office with any questions or concerns in the interim. Future Imaging: NONE Thea Vail MD Hand and Upper Extremity Surgery [facility] Departm (more content not included)... Normal [facility] Office Visiton 08-12-2023 Follow-up visit [id number] Geraldine Hairston 1950 F Date Provider Department Center 08/12/2023 [id number] VAIL [facility] OR None Family History Family Status - Relation Status Age at Mother Alive Father Alive Level of Service:22786 [place] OFFICE/OUTPATIENT NEW LOW [facility] 30-44 MINUTES Reason for Visit and Comments: New Patient [542] - Right thumb cyst Normal [facility] Progress Noteon 08-12-2023 Progress Note [facility] [address] [place] [address] [place] [address] Dept: [phone] Dept 08/12/2023 Chief Complaint Patient presents with [...] Vail MD Hand and Upper Extremity Surgery [facility] Department of Orthopaedics and Sports Medicine 08/12/2023 at 2:13 PM (Please note that portions of this note may have been completed with a voice recognition program. Efforts were made to edit the dictations but occasionally words are mis-transcribed.) Normal [facility] UA DIP, URINE (POC)on 2022 BILIRUBIN UA (POCT) Negative Negative [facility] CLARITY UA (POCT) Cloudy [facility] COLOR UA (POCT) Dark yellow [facility] GLUCOSE UA (POCT) Negative Negative mg/dL [facility] Hemoglobin Ql (U) Negative Negative [facility] KETONE UA (POCT) Negative Negative mg/dL [facility] LEUKOCYTES UA (POCT) Negative Negative [facility] NITRITE UA (POCT) Negative Negative [facility] PH UA (POCT) 6.0 4.5 - 8.0 [facility] Protein Ql (U) Negative Negative mg/dL [facility] SPECIFIC GRAVITY UA (POCT) 1.015 1.005 - 1.030 [facility] UROBILINOGEN UA (POCT) 0.2 E.U./dL Normal E.U./dL [facility] OZIEL SCREENINGon 03-25-2023 [facility] XR Ribs - right Views and Ch est PAon 11-19-2022 IMPRESSION: Fractures of right-sided ribs as discussed. Scale Model Maker: BAILEY Transcribe Date/Time: Nov 19 2022 8:26A Dictated by : JON TA DO This examination was interpreted and the report reviewed and electronically signed by: JON TA DO on Nov 19 2022 8:34AM [facility] DIVISION OF RADIOLOGY * * [...] the seventh rib. DIVISION OF RADIOLOGY Provider, [facility] - 11/19/2022 * * *Final [...] IMPRESSION: Fractures of right-sided ribs as discussed. Scale Model Maker: BAILEY Transcribe Date/Time: Nov 19 2022 8:26A Dictated by : JON TA DO This examination was interpreted and the report reviewed and electronically signed by: JON TA DO on Nov 19 2022 8:34AM EST [facility] XR Ribs - right Views and Ch est PAOrdered By: Ccf Provider on 11-19-2022 [facility] Comprehensive metabolic 2000 panelon 11-16-2022 Albumin [Mass/Vol] 4.9 g/dL 3.9 - 4.9 g/dL [facility] ALP [Catalytic activity/Vol] 62 U/L 34 - 123 U/L [facility] ALT [Catalytic activity/Vol] 28 U/L 7 - 38 U/L [facility] Anion gap [Moles/Vol] 14 mmol/L 9 - 18 mmol/L [facility] AST [Catalytic activity/Vol] 27 U/L 13 - 35 U/L [facility] Bilirubin [Mass/Vol] 0.3 mg/dL 0.2 - 1 .3 mg/dL [facility] Calcium [Mass/Vol] 9.6 mg/dL 8.5 - 10. 2 mg/dL [facility] Chloride [Moles/Vol] 102 mmol/L 97 - 10 5 mmol/L [facility] CO2 [Moles/Vol] 23 mmol/L 22 - 30 mmol/L [facility] Creatinine [Mass/Vol] 1.06 mg/dL High 0.58 - 0.96 mg/dL [facility] Estimated Glomerular Filtration Rate 56 mL/min/1.73m Low >=60 mL/min/1.73m [facility] Glucose [Mass/Vol] 148 mg/dL High 74 - 99 mg/dL [facility] Potassium [Moles/Vol] 3.6 mmol/L Low 3.7 - 5.1 mmol/L [facility] Protein [Mass/Vol] 7.5 g/dL 6.3 - 8.0 g/dL [facility] Sodium [Moles/Vol] 139 mmol/L 136 - 144 [facility] Urea nitrogen [Mass/Vol] 23 mg/dL High 7 - 21 mg/dL [facility] LIPID PANEL, NONFASTINGon Cholesterol [Mass/Vol] 251 mg/dL High <200 mg/dL [facility] HDL Cholesterol, Nonfasting 107 mg/dL >39 mg[facility] LDL Cholesterol, Nonfasting 128 mg/dL High <100 mg/dL [facility] LDL/HDL Ratio, Nonfasting 1.20 mg/dL <2.54 mg/dL [facility] Non HDL Cholesterol, Nonfasting 144 mg/dL High <130 mg/dL [facility] Total Chol/HDL Ratio, Nonfasting 2.35 mg/dL <5.10 mg/dL [facility] Triglycerides, Nonfasting 79 mg/dL <150 mg/dL [facility] VLDL Cholesterol, Nonfasting 16 mg/dL <30 mg/dL [facility] T3 FREE BLDon 11-16-2022 Free T3 [Mass/Vol] 2.2 pg/mL Low 2.3 - 4.1 pg/mL [facility] T4 FREE/FREE THYROXon 2022 Free T4 [Mass/Vol] 1.4 ng/dL 0.9 - 1.7 ng/dL [facility] TSH BLDon 11-16-2022 TSH Qn 1.410 m[IU]/L 0.270 - 4.200 mIU/L [facility] XR RIBS/CHEST 3V AP RIB/OBLS /CXR RIGHTon 11-16-2022 [facility] XR Ribs - right Views and Ch est PAon 11-16-2022 Radiology Study observation (narrative) [facility] Basophil percentageon 2021 Chloride [Moles/Vol] 111 mmol/L 98-107 [facility] Work Phone: Glucose [Mass/Vol] 99 mg/dL 74-106 [facility] Work Phone: [phone] Potassium [Moles/Vol] 4.2 mmol/L 3.5-5.1 [facility] Work Phone: [phone] Sodium [Moles/Vol] 141 mmol/L 136-145 [facility] Work Phone: Laboratory - Chemistry and C hemistry - challengeon 09-08-2022 CO2 [Moles/Vol] 25.0 mmol/L 21.0-32.0 [facility] Work Phone: Magnesium [Mass/Vol] 1.9 mg/dL 1.6-2.6 [facility] Work Phone: Urea nitrogen/Creatinine [Mass ratio] 31.2 mg/mg 10-20 [facility] Work Phone: [phone] No Panel Informationon 09-08 Estimated Creatinine Clearance Calc 28.10 ml/min [facility] Work Phone: Estimated GFR (MDRD) Amer 99 mL/min >60 [facility] Work Phone: Comment on above: GFR Calc Estimated GFR (MDRD) Non-Af Amer 82 mL/min >60 [facility] Work Phone: Comment on above: Non- GFR Calc Serum or plasma calcium evelin urement (mass/volume)on 09-08-2022 Calcium [Mass/Vol] 9.1 mg/dL 8.5-10.1 [facility] Work Phone: Serum or plasma creatinine m easurement (mass/volume)on 09-08-2022 Creatinine [Mass/Vol] 0.74 mg/dL 0.55-1.02 [facility] Work Phone: Comment on above: The validity of the calculated GFR & GFRAA in patients over 70 years has not been determined. Clinical correlation is essential. Serum or plasma urea nitroge n measurement (mass/volume)on 09-08-2022 Urea nitrogen [Mass/Vol] 23 mg/dL 7-18 [facility] Work Phone: Thin prep Papanicolaou smear with manual screeningon 09-08-2022 Thin prep Papanicolaou smear with manual screening 5 5-15 [facility] Work Phone: Absolute lymphocyte counton 09-07-2022 Lymphocytes Auto (Unsp spec) [#/Vol] 1.09 10*3/uL 0.83-4.51 [facility] Work Phone: Basophil percentageon 2021 Basophils/100 WBC (Bld) 0.4 % 0-1 [facility] Work Phone: Bilirubin [Mass/Vol] 0.50 mg/dL 0.20-1.00 [facility] Work Phone: Comment on above: For patients on eltr ombopag therapy, use of Dimension Devol TBIL is not recommended. Cholesterol [Mass/Vol] 263 mg/dL <200 [facility] Work Phone: Comment on above: <200 mg/dL Desirable 200-240 mg/dL Borderline >240 mg/dL High Risk Eosinophils/100 WBC (Bld) 1.4 % 0-5 [facility] Work Phone: Neutrophils (Bld) [#/Vol] 6.4 10*3/uL 2.0-7.7 [facility] Work Phone: Neutrophils/100 WBC (Bld) 76.9 % 47-70 [facility] Work Phone: Protein [Mass/Vol] 6.8 g/dL 6.4-8.2 [facility] Work Phone: [phone] Triglyceride [Mass/Vol] 130 mg/dL <199 [facility] Work Phone: Comment on above: The drugs N-Acetylcy steine and Metamizole may falsely depress this assay.Serum Triglycerides Reference Interval Normal <150 mg/dL Borderline high 150 - 199 mg/dL High 200 - 499 mg/dL Very High > or = 500 mg/dL WBC (Bld) [#/Vol] 8.3 10*3/uL 4.4-11.0 [facility] Work Phone: Blood erythrocytes count (nu mber/volume)on 09-07-2022 RBC (Bld) [#/Vol] 4.69 10*6/uL 4.2-5.4 [facility] Work Phone: Blood hemoglobin measurement (mass/volume)on 09-07-2022 Hemoglobin (Bld) [Mass/Vol] 14.2 g/dL 12.0-15.0 [facility] Work Phone: Blood lymphocytes/100 leukoc yteson 09-07-2022 Lymphocytes/100 WBC (Bld) 13.2 % 19-41 [facility] Work Phone: Blood monocytes/100 leukocyt eson 09-07-2022 Monocytes/100 WBC (Bld) 7.7 % 0-10 [facility] Work Phone: Blood platelet mean volumeon 09-07-2022 Platelet mean volume (Bld) [Entitic vol] 8.9 fL 6.2-12.0 [facility] Work Phone: Determination of erythrocyte mean corpuscular volume (MCV)on 09-07-2022 MCV (RBC) [Entitic vol] 93.2 fL 81-99 [facility] Work Phone: Hematocrit Auto (Bld) [Volum e fraction]on 09-07-2022 Hematocrit (Bld) [Volume fraction] 43.7 % 37-47 [facility] Work Phone: Laboratory - Chemistry and C hemistry - challengeon 09-07-2022 ALP [Catalytic activity/Vol] 58 U/L 45-117 [facility] Work Phone: ALT [Catalytic activity/Vol] 23 U/L 13-56 [facility] Work Phone: Globulin (S) [Mass/Vol] 3.4 g/dL 2.2-4.2 [facility] Work Phone: Laboratory - Hematology and Cell countson 09-07-2022 Erythrocyte distribution width (RBC) [Entitic vol] 47.8 fL 35.1-43.9 [facility] Work Phone: Erythrocyte distribution width (RBC) [Ratio] 13.9 % 11.6-14.6 [facility] Work Phone: Immature granulocytes/100 WBC (Bld) 0.400 % 0.0-0.9 [facility] Work Phone: Comment on above: IG% - Immature Granu locytes (promyelocytes, myelocytes and metamyelocytes) > 1% indicates that a LEFT SHIFT is Present. MCH (RBC) [Entitic mass] 30.3 pg 27.0-32.0 [facility] Work Phone: Nucleated RBC/100 WBC (Bld) [Ratio] 0 % 0-5 [facility] Work Phone: MCHC Auto (RBC) [Mass/Vol]on 09-07-2022 MCHC (RBC) [Mass/Vol] 32.5 g/dL 32-36 [facility] Work Phone: No Panel Informationon 09-07 Thyroid Stimulating Hormone (TSH) 0.98 uIU/mL 0.358-3.74 [facility] Work Phone: Platelets bldon 09-07-2022 Platelets (Bld) [#/Vol] 251 10*3/uL 150-450 [facility] Work Phone: Serum or plasma albumin evelin urement (mass/volume)on 09-07-2022 Albumin [Mass/Vol] 3.4 g/dL 3.2-5.0 [facility] Work Phone: Serum or plasma albumin/glob ulin mass ratioon 09-07-2022 Albumin/Globulin [Mass ratio] 1.0 {ratio} 0.9-2.4 [facility] Work Phone: Serum or plasma cholesterol in HDL measurement (mass/volume)on 09-07-2022 Cholesterol in HDL [Mass/Vol] 94 mg/dL >40 [facility] Work Phone: Comment on above: The drugs N-Acetylcy steine and Metamizole may falsely depress this assay. Reference Range HDL <40 mg/dL Low HDL Cholesterol HDL >or= 60 mg/dL High HDL Cholesterol Serum or plasma cholesterol in VLDL measurement (mass/volume)on 09-07-2022 Cholesterol in VLDL [Mass/Vol] 26 mg/dL 5-40 [facility] Work Phone: Serum or plasma low density lipoprotein (LDL) cholesterol measurement (mass/volume)on 09-07-2022 Cholesterol in LDL [Mass/Vol] 143 mg/dL 0-130 [facility] Work Phone: Thin prep Papanicolaou smear with manual screeningon 09-07-2022 Thin prep Papanicolaou smear with manual screening 9 U/L 15-37 [facility] Work Phone: Whole blood hemoglobin A1c/t otal hemoglobin ratio (mass fraction)on 09-07-2022 HbA1c (Bld) [Mass fraction] 5.1 % 3.8-5.6 [facility] Work Phone: Comment on above: Normal < 5.7 % Predi abetic 5.7 - 6.4 % Diabetic >or= 6.5 % Please note range changes. Absolute lymphocyte counton 09-06-2022 Lymphocytes Auto (Unsp spec) [#/Vol] 1.48 10*3/uL 0.83-4.51 [facility] Work Phone: Basophil percentageon 2021 Basophil percentage 0-5 SEEN /hpf 0-5 [facility] Work Phone: Basophils/100 WBC (Bld) 0.4 % 0-1 [facility] Work Phone: Bilirubin [Mass/Vol] 0.30 mg/dL 0.20-1.00 [facility] Work Phone: Comment on above: For patients on eltr ombopag therapy, use of Dimension Devol TBIL is not recommended. Chloride [Moles/Vol] 107 mmol/L 98-107 [facility] Work Phone: Eosinophils/100 WBC (Bld) 1.4 % 0-5 [facility] Work Phone: Glucose [Mass/Vol] 92 mg/dL 74-106 [facility] Work Phone: Neutrophils (Bld) [#/Vol] 6.6 10*3/uL 2.0-7.7 [facility] Work Phone: Neutrophils/100 WBC (Bld) 71.8 % 47-70 [facility] Work Phone: Potassium [Moles/Vol] 3.6 mmol/L 3.5-5.1 [facility] Work Phone: Comment on above: Slight Hemolysis, Re sult may be falsely increased. Protein [Mass/Vol] 7.3 g/dL 6.4-8.2 [facility] Work Phone: Sodium [Moles/Vol] 139 mmol/L 136-145 [facility] Work Phone: WBC (Bld) [#/Vol] 9.2 10*3/uL 4.4-11.0 [facility] Work Phone: Bilirubin Test strip Ql (U)o n 09-06-2022 Bilirubin Ql (U) Negative Negative [facility] Work Phone: Blood erythrocytes count (nu mber/volume)on 09-06-2022 RBC (Bld) [#/Vol] 4.73 10*6/uL 4.2-5.4 [facility] Work Phone: Blood hemoglobin measurement (mass/volume)on 09-06-2022 Hemoglobin (Bld) [Mass/Vol] 14.7 g/dL 12.0-15.0 [facility] Work Phone: Blood lymphocytes/100 leukoc yteson 09-06-2022 Lymphocytes/100 WBC (Bld) 16.0 % 19-41 [facility] Work Phone: Blood monocytes/100 leukocyt eson 09-06-2022 Monocytes/100 WBC (Bld) 10.2 % 0-10 [facility] Work Phone: Blood platelet mean volumeon 09-06-2022 Platelet mean volume (Bld) [Entitic vol] 9.3 fL 6.2-12.0 [facility] Work Phone: Determination of erythrocyte mean corpuscular volume (MCV)on 09-06-2022 MCV (RBC) [Entitic vol] 92.2 fL 81-99 [facility] Work Phone: Hematocrit Auto (Bld) [Volum e fraction]on 09-06-2022 Hematocrit (Bld) [Volume fraction] 43.6 % 37-47 [facility] Work Phone: INR in Blood by Coagulation assayon 09-06-2022 INR Coag (Bld) [Relative time] 1.0 {INR} [facility] Work Phone: Ketones Test strip Ql (U)on 09-06-2022 Ketones Ql (U) Negative Negative [facility] Work Phone: Laboratory - Chemistry and C hemistry - challengeon 09-06-2022 Magnesium [Mass/Vol] 2.0 mg/dL 1.6-2.6 [facility] Work Phone: Comment on above: Slight Hemolysis, Re sult may be falsely increased. ALP [Catalytic activity/Vol] 55 U/L 45-117 [facility] Work Phone: ALT [Catalytic activity/Vol] 28 U/L 13-56 [facility] Work Phone: CO2 [Moles/Vol] 29.0 mmol/L 21.0-32.0 [facility] Work Phone: Globulin (S) [Mass/Vol] 3.5 g/dL 2.2-4.2 [facility] Work Phone: Urea nitrogen/Creatinine [Mass ratio] 22.7 mg/mg 10-20 [facility] Work Phone: Laboratory - Coagulationon 1 PT Coag (PPP) [Time] 12.8 s 11.7-14.9 [facility] Work Phone: Laboratory - Drug toxicology on 09-06-2022 Amphetamines Ql (U) Negative <1000 ng/mL [facility] Work Phone: Benzodiazepines Ql (U) Negative < 200 ng/mL [facility] Work Phone: Cannabinoids Screen Ql (U) Negative < 50 ng/mL [facility] Work Phone: Cocaine Ql (U) Negative < 300 ng/mL [facility] Work Phone: Opiates Ql (U) Negative < 300 ng/mL [facility] Work Phone: Laboratory - Hematology and Cell countson 09-06-2022 Erythrocyte distribution width (RBC) [Entitic vol] 46.8 fL 35.1-43.9 [facility] Work Phone: Erythrocyte distribution width (RBC) [Ratio] 13.9 % 11.6-14.6 [facility] Work Phone: Immature granulocytes/100 WBC (Bld) 0.200 % 0.0-0.9 [facility] Work Phone: Comment on above: IG% - Immature Granu locytes (promyelocytes, myelocytes and metamyelocytes) > 1% indicates that a LEFT SHIFT is Present. MCH (RBC) [Entitic mass] 31.1 pg 27.0-32.0 [facility] Work Phone: Nucleated RBC/100 WBC (Bld) [Ratio] 0 % 0-5 [facility] Work Phone: MCHC Auto (RBC) [Mass/Vol]on 09-06-2022 MCHC (RBC) [Mass/Vol] 33.7 g/dL 32-36 [facility] Work Phone: Mucus LM Ql (Urine sed)on Mucus Ql (Urine sed) 0 SEEN /hpf [facility] Work Phone: Nitrite Test strip Ql (U)on 09-06-2022 Nitrite Ql (U) Positive Negative [facility] Work Phone: No Panel Informationon 09-06 MDMA (Ecstasy) Screen Negative < 500 ng/mL [facility] Work Phone: Urine Barbiturates Screen Negative < 200 ng/mL [facility] Work Phone: Urine Drug Screen Comment [facility] Work Phone: Comment on above: CONFIRMATORY [...] Urine Methadone Screen Negative < 300 ng/mL [facility] Work Phone: Estimated Creatinine Clearance Calc 23.61 ml/min [facility] Work Phone: Estimated GFR (MDRD) Amer 53 mL/min >60 [facility] Work Phone: Comment on above: GFR Calc Estimated GFR (MDRD) Non-Af Amer 44 mL/min >60 [facility] Work Phone: Comment on above: Non- GFR Calc Troponin I High Sensitivity 8 pg/mL 3.0-54.0 [facility] Work Phone: Comment on above: Please Note: New Michelle t Units and Gender Specific Reference Ranges. For more information see Policy Stat Procedure Devol High Sensitivity Troponin (TNIH) and attachments. Platelets bldon 09-06-2022 Platelets (Bld) [#/Vol] 260 10*3/uL 150-450 [facility] Work Phone: Protein Test strip Ql (U)on 09-06-2022 Protein Ql (U) Negative Negative [facility] Work Phone: Serum or plasma albumin evelin urement (mass/volume)on 09-06-2022 Albumin [Mass/Vol] 3.8 g/dL 3.2-5.0 [facility] Work Phone: Serum or plasma albumin/glob ulin mass ratioon 09-06-2022 Albumin/Globulin [Mass ratio] 1.1 {ratio} 0.9-2.4 [facility] Work Phone: Serum or plasma calcium evelin urement (mass/volume)on 09-06-2022 Calcium [Mass/Vol] 8.8 mg/dL 8.5-10.1 [facility] Work Phone: Serum or plasma creatinine m easurement (mass/volume)on 09-06-2022 Creatinine [Mass/Vol] 1.28 mg/dL 0.55-1.02 [facility] Work Phone: Comment on above: The validity of the calculated GFR & GFRAA in patients over 70 years has not been determined. Clinical correlation is essential. Serum or plasma urea nitroge n measurement (mass/volume)on 09-06-2022 Urea nitrogen [Mass/Vol] 29 mg/dL 7-18 [facility] Work Phone: Squamous epithelial cells de tection in urine sediment by light microscopyon 09-06-2022 Epithelial cells.squamous LM Ql (Urine sed) 0-5 SEEN /hpf 5-10 [facility] Work Phone: Thin prep Papanicolaou smear with manual screeningon 09-06-2022 Thin prep Papanicolaou smear with manual screening 18 U/L 15-37 [facility] Work Phone: Comment on above: Slight Hemolysis, Re sult may be falsely increased. Thin prep Papanicolaou smear with manual screening 3 5-15 [facility] Work Phone: Urine blood detectionon 08-10 RBC Ql (U) Negative Negative [facility] Work Phone: RBC Ql (U) 0 SEEN /hpf 0-5 [facility] Work Phone: Urine clarityon 09-06-2022 Clarity (U) Sl. Cloudy Clear [facility] Work Phone: Urine color determinationon 09-06-2022 Color (U) Yellow Yellow [facility] Work Phone: Urine glucose detectionon Glucose Ql (U) Normal mg/dl Normal [facility] Work Phone: Urine leukocyte esterase det ection by dipstickon 09-06-2022 Leukocyte esterase Test strip Ql (U) 100 /ul Negative [facility] Work Phone: Urine pHon 09-06-2022 pH (U) 5.0 [pH] 5.0 - 8.0 [facility] Work Phone: Urine phencyclidine (PCP) de tectionon 09-06-2022 Phencyclidine Ql (U) Negative < 25 ng/mL [facility] Work Phone: [phone] Urine sediment bacteria coun t by microscopy (number/high power field)on 09-06-2022 Bacteria LM.HPF (Urine sed) [#/Area] 4 /[HPF] None Seen [facility] Work Phone: Urine specific gravity measu rementon 09-06-2022 Specific gravity (U) [Rel density] 1.015 1.002-1.030 [facility] Work Phone: Urobilinogen Auto test strip Ql (U)on 09-06-2022 Urobilinogen Ql (U) Normal mg/dl Normal [facility] Work Phone: Absolute lymphocyte counton 09-01-2022 Lymphocytes Auto (Unsp spec) [#/Vol] 0.85 10*3/uL 0.83-4.51 [facility] Work Phone: Basophil percentageon 2021 Basophil percentage 0 SEEN /hpf 0-5 [facility] Work Phone: Basophils/100 WBC (Bld) 0.5 % 0-1 [facility] Work Phone: Chloride [Moles/Vol] 110 mmol/L 98-107 [facility] Work Phone: Eosinophils/100 WBC (Bld) 0.7 % 0-5 [facility] Work Phone: Glucose [Mass/Vol] 103 mg/dL 74-106 [facility] Work Phone: Comment on above: Fasting Glucose resu lt from 100 to 125 mg/dL suggests IMPAIRED HOMEOSTASIS per A.D.A. criteria. Neutrophils (Bld) [#/Vol] 4.7 10*3/uL 2.0-7.7 [facility] Work Phone: [phone] Neutrophils/100 WBC (Bld) 78.3 % 47-70 [facility] Work Phone: Potassium [Moles/Vol] 3.8 mmol/L 3.5-5.1 [facility] Work Phone: Sodium [Moles/Vol] 140 mmol/L 136-145 [facility] Work Phone: WBC (Bld) [#/Vol] 6.0 10*3/uL 4.4-11.0 [facility] Work Phone: Bilirubin Test strip Ql (U)o n 09-01-2022 Bilirubin Ql (U) Negative Negative [facility] Work Phone: Blood erythrocytes count (nu mber/volume)on 09-01-2022 RBC (Bld) [#/Vol] 4.96 10*6/uL 4.2-5.4 [facility] Work Phone: Blood hemoglobin measurement (mass/volume)on 09-01-2022 Hemoglobin (Bld) [Mass/Vol] 14.9 g/dL 12.0-15.0 [facility] Work Phone: [phone] Blood lymphocytes/100 leukoc yteson 09-01-2022 Lymphocytes/100 WBC (Bld) 14.3 % 19-41 [facility] Work Phone: Blood monocytes/100 leukocyt eson 09-01-2022 Monocytes/100 WBC (Bld) 5.9 % 0-10 [facility] Work Phone: Blood platelet mean volumeon 09-01-2022 Platelet mean volume (Bld) [Entitic vol] 9.1 fL 6.2-12.0 [facility] Work Phone: Determination of erythrocyte mean corpuscular volume (MCV)on 09-01-2022 MCV (RBC) [Entitic vol] 95.4 fL 81-99 [facility] Work Phone: Hematocrit Auto (Bld) [Volum e fraction]on 09-01-2022 Hematocrit (Bld) [Volume fraction] 47.3 % 37-47 [facility] Work Phone: Ketones Test strip Ql (U)on 09-01-2022 Ketones Ql (U) Negative Negative [facility] Work Phone: Laboratory - Chemistry and C hemistry - challengeon 09-01-2022 CO2 [Moles/Vol] 25.0 mmol/L 21.0-32.0 [facility] Work Phone: Urea nitrogen/Creatinine [Mass ratio] 10.6 mg/mg 10-20 [facility] Work Phone: Laboratory - Drug toxicology on 09-01-2022 Amphetamines Ql (U) Negative <1000 ng/mL [facility] Work Phone: Benzodiazepines Ql (U) Negative < 200 ng/mL [facility] Work Phone: Cannabinoids Screen Ql (U) Negative < 50 ng/mL [facility] Work Phone: Cocaine Ql (U) Negative < 300 ng/mL [facility] Work Phone: Opiates Ql (U) Negative < 300 ng/mL [facility] Work Phone: Laboratory - Hematology and Cell countson 09-01-2022 Erythrocyte distribution width (RBC) [Entitic vol] 49.8 fL 35.1-43.9 [facility] Work Phone: Erythrocyte distribution width (RBC) [Ratio] 14.2 % 11.6-14.6 [facility] Work Phone: Immature granulocytes/100 WBC (Bld) 0.300 % 0.0-0.9 [facility] Work Phone: Comment on above: IG% - Immature Granu locytes (promyelocytes, myelocytes and metamyelocytes) > 1% indicates that a LEFT SHIFT is Present. MCH (RBC) [Entitic mass] 30.0 pg 27.0-32.0 [facility] Work Phone: Nucleated RBC/100 WBC (Bld) [Ratio] 0 % 0-5 [facility] Work Phone: MCHC Auto (RBC) [Mass/Vol]on 09-01-2022 MCHC (RBC) [Mass/Vol] 31.5 g/dL 32-36 [facility] Work Phone: Mucus LM Ql (Urine sed)on Mucus Ql (Urine sed) 0 SEEN /hpf [facility] Work Phone: Nitrite Test strip Ql (U)on 09-01-2022 Nitrite Ql (U) Negative Negative [facility] Work Phone: No Panel Informationon 09-01 MDMA (Ecstasy) Screen Negative < 500 ng/mL [facility] Work Phone: Urine Barbiturates Screen Negative < 200 ng/mL [facility] Work Phone: Urine Drug Screen Comment [facility] Work Phone: Comment on above: CONFIRMATORY [...] Urine Methadone Screen Negative < 300 ng/mL [facility] Work Phone: Estimated Creatinine Clearance Calc 37.02 ml/min [facility] Work Phone: Estimated GFR (MDRD) Amer 84 mL/min >60 [facility] Work Phone: Comment on above: GFR Calc Estimated GFR (MDRD) Non-Af Amer 70 mL/min >60 [facility] Work Phone: Comment on above: Non- GFR Calc Ethyl Alcohol Level < 3.0 mg/dL [facility] Work Phone: Comment on above: The serum:whole bloo d ethanol ratio is approximately 1.14and varies slightly with hematocrit. Medical Alcohol reference interval and critical value innon-tolerant individuals; 50 - 100 Impairment 100 Intoxication 100 - 250 Severe Poisoning 250 - 400 Deep/possible fatal coma Platelets bldon 09-01-2022 Platelets (Bld) [#/Vol] 213 10*3/uL 150-450 [facility] Work Phone: Protein Test strip Ql (U)on 09-01-2022 Protein Ql (U) 15 mg/dl Negative [facility] Work Phone: Serum or plasma calcium evelin urement (mass/volume)on 09-01-2022 Calcium [Mass/Vol] 9.0 mg/dL 8.5-10.1 [facility] Work Phone: Serum or plasma creatinine m easurement (mass/volume)on 09-01-2022 Creatinine [Mass/Vol] 0.85 mg/dL 0.55-1.02 [facility] Work Phone: Comment on above: The validity of the calculated GFR & GFRAA in patients over 70 years has not been determined. Clinical correlation is essential. Serum or plasma urea nitroge n measurement (mass/volume)on 09-01-2022 Urea nitrogen [Mass/Vol] 9 mg/dL 7-18 [facility] Work Phone: Squamous epithelial cells de tection in urine sediment by light microscopyon 09-01-2022 Epithelial cells.squamous LM Ql (Urine sed) 0 SEEN /hpf 5-10 [facility] Work Phone: Thin prep Papanicolaou smear with manual screeningon 09-01-2022 Thin prep Papanicolaou smear with manual screening 5 5-15 [facility] Work Phone: Urine blood detectionon 08-10 RBC Ql (U) 10 /ul Negative [facility] Work Phone: RBC Ql (U) 0 SEEN /hpf 0-5 [facility] Work Phone: Urine clarityon 09-01-2022 Clarity (U) Clear Clear [facility] Work Phone: Urine color determinationon 09-01-2022 Color (U) Yellow Yellow [facility] Work Phone: Urine glucose detectionon Glucose Ql (U) Normal mg/dl Normal [facility] Work Phone: Urine leukocyte esterase det ection by dipstickon 09-01-2022 Leukocyte esterase Test strip Ql (U) 25 /ul Negative [facility] Work Phone: Urine pHon 09-01-2022 pH (U) 6.5 [pH] 5.0 - 8.0 [facility] Work Phone: Urine phencyclidine (PCP) de tectionon 09-01-2022 Phencyclidine Ql (U) Negative < 25 ng/mL [facility] Work Phone: Urine sediment bacteria coun t by microscopy (number/high power field)on 09-01-2022 Bacteria LM.HPF (Urine sed) [#/Area] 4 /[HPF] None Seen [facility] Work Phone: Urine specific gravity measu rementon 09-01-2022 Specific gravity (U) [Rel density] 1.010 1.002-1.030 [facility] Work Phone: Urobilinogen Auto test strip Ql (U)on 09-01-2022 Urobilinogen Ql (U) Normal mg/dl Normal [facility] Work Phone: XR Chest PA and Lateralon IMPRESSION: No acute radiographic abnormality. Scale Model Maker: [email or web address] Transcribe Date/Time: Aug 07 2022 12:32P Dictated by : CHERI YEAGER MD This examination was interpreted and the report reviewed and electronically signed by: CHERI YEAGER MD on Aug 07 2022 12:35PM [facility] DIVISION OF RADIOLOGY * * [...] spine. DIVISION OF RADIOLOGY Provider, Deanna Lino [facility] - 08/07/2022 * * *Final Report* * [...] spine. IMPRESSION IMPRESSION: No acute radiographic abnormality. Scale Model Maker: [email or web address] Transcribe Date/Time: Aug 07 2022 12:32P Dictated by : CHERI YEAGER MD This examination was interpreted and the report reviewed and electronically signed by: CHERI YEAGER MD on Aug 07 2022 12:35PM EST [facility] Radiology Study observation (narrative) [facility] XR Chest PA and LateralOrder ed By: [facility] Provider on 08-07-2022 [facility] DXA-AXIAL SKELETONon 022 [facility] URINE CULTUREon 04-04-2022 Bacteria identified Cx Nom (U) >=100,000 CFU/ml Escherichia coli Abnormal [facility] URINE CULTUREon 04-02-2022 Bacteria identified Cx Nom (U) Invalid Interpretation Code [facility] Urinalysis complete panel (U )on 04-02-2022 Bilirubin Ql (U) Negative Negative [facility] Clarity (Unsp spec) Clear Clear [facility] Color (U) Light Yellow Yellow [facility] Epithelial cells LM.HPF (Urine sed) [#/Area] Few [facility] Glucose Test strip (U) [Mass/Vol] Negative Negative [facility] Hemoglobin Ql (U) Negative Negative [facility] Ketones Ql (U) Negative Negative [facility] Leukocyte esterase Test strip Ql (U) Negative Negative [facility] Nitrite Ql (U) Negative Negative [facility] pH (U) 7.0 [pH] 5.0 - 8.0 [facility] Protein (U) [Mass/Vol] Negative Negative [facility] RBC LM.HPF (Urine sed) [#/Area] 0-3 /HPF 0-3 /HPF [facility] Specific gravity (U) [Rel density] 1.010 1.005 - 1.030 [facility] Urobilinogen Ql (U) Negative Negative [facility] WBC LM.HPF (Urine sed) [#/Area] 0-5 /HPF 0-5 /HPF [facility] [facility]IT[facility] D 25 HYDROXYon 03-31 25-hydroxyvitamin D3 [Mass/Vol] 61.0 ng/mL 31.0 - 80.0 ng/mL [facility] CBC panel Auto (Bld)on 03-30 Erythrocyte distribution width (RBC) [Ratio] 12.6 % 11.5 - 15.0 % [facility] Hematocrit (Bld) [Volume fraction] 44.2 % 36.0 - 46.0 % [facility] Hemoglobin (Bld) [Mass/Vol] 14.1 g/dL 11.5 - 15.5 g/dL [facility] MCH (RBC) [Entitic mass] 30.7 pg 26.0 - 34.0 pg [facility] MCHC (RBC) [Mass/Vol] 31.9 g/dL 30.5 - 36.0 g/dL [facility] MCV (RBC) [Entitic vol] 96.3 fL 80.0 - 100.0 fL [facility] Nucleated RBC (Bld) [#/Vol] <0.01 k/uL [facility] Platelet mean volume (Bld) [Entitic vol] 10.2 fL 9.0 - 12.7 fL [facility] Platelets (Bld) [#/Vol] 252 10*3/uL 150 - 400 k/uL [facility] RBC (Bld) [#/Vol] 4.59 10*6/uL 3.90 - 5.2 0 m/uL [facility] WBC (Bld) [#/Vol] 7.71 10*3/uL 3.70 - 11. 00 k/uL [facility] Comprehensive metabolic 2000 panelon 03-30-2022 Albumin [Mass/Vol] 4.5 g/dL 3.9 - 4.9 g/dL [facility] ALP [Catalytic activity/Vol] 47 U/L 34 - 123 U/L [facility] ALT [Catalytic activity/Vol] 28 U/L 7 - 38 U/L [facility] Anion gap [Moles/Vol] 12 mmol/L 9 - 18 mmol/L [facility] AST [Catalytic activity/Vol] 19 U/L 13 - 35 U/L [facility] Bilirubin [Mass/Vol] 0.2 mg/dL 0.2 - 1 .3 mg/dL [facility] Calcium [Mass/Vol] 9.3 mg/dL 8.5 - 10. 2 mg/dL [facility] Chloride [Moles/Vol] 101 mmol/L 97 - 10 5 mmol/L [facility] CO2 [Moles/Vol] 26 mmol/L 22 - 30 mmol/L [facility] Creatinine [Mass/Vol] 0.96 mg/dL 0.58 - 0.96 mg/dL [facility] Estimated Glomerular Filtration Rate 63 mL/min/1.73m >=60 mL/min/1.73m [facility] Glucose [Mass/Vol] 91 mg/dL 74 - 99 mg/dL [facility] Potassium [Moles/Vol] 3.4 mmol/L Low 3.7 - 5.1 mmol/L [facility] Protein [Mass/Vol] 6.8 g/dL 6.3 - 8.0 g/dL [facility] Sodium [Moles/Vol] 139 mmol/L 136 - 144 mmol/L [facility] Urea nitrogen [Mass/Vol] 14 mg/dL 7 - 21 mg/dL [facility] T3 FREE [facility] 03-30-2022 Free T3 [Mass/Vol] 2.1 pg/mL Low 2.3 - 4.1 pg/mL [facility] T4 FREE/FREE THYROXon 2021 Free T4 [Mass/Vol] 1.3 ng/dL 0.9 - 1.7 ng/dL [facility] TSH [facility] 03-30-2022 TSH Qn 1.140 m[IU]/L 0.270 - 4.200 mIU/L [facility] XR CHEST 2V FRONTAL/LATon [facility] XR Chest PA and Lateralon IMPRESSION: Hazy opacities in the lower lung on lateral view. Consider follow-up. Scale Model Maker: BAILEY Transcribe Date/Time: Mar 30 2022 2:18P [...] spine. ZZZ_DO_NOT_ USE_DIVISIO N OF RADIOLOGY Provider, [facility] - 03/30/2022 * * *Final [...] lower lung on lateral view. Consider follow-up. Scale Model Maker: BAILEY Transcribe Date/Time: Mar 30 2022 2:18P Dictated by : LENORE BLACKMON MD This examination was interpreted and the report reviewed and electronically signed by: LENORE BLACKMON MD on Mar 30 2022 2:19PM EST [facility] Radiology Study observation (narrative) [facility] XR Chest PA and LateralOrder ed By: [facility] Provider on 03-30-2022 [facility] OZIEL SCREENINGon 03-20-2022 [facility] No Panel InformationOrdered By: [facility] Provider on 11-25-2021 [facility] No Panel Informationon 11-25 Radiology Study observation (narrative) [facility] XR Hand - left PA and Latera l and Obliqueon 11-25-2021 Interpretation and review of laboratory results Abnormal [facility] Radiology Result ACTIONABLE Abnormal [facility] Comment on above: This report contains [...] be communicated with the ordering provider via [employer] staff message or phone message by [employer] within 2 business days of report finalization. Algorithms for management of incidental imaging findings can be found on the [facility] Intranet Sharepoint site at: [email or web address] [email or web address]%20Fi ndi ngs%20at%20Imaging/Forms /[email or web address].[email or web address] Scale Model Maker: BAILEY Transcribe Date/Time: Nov 25 2021 11:53A Dictated by : SATNAM GONZALES DO This examination was interpreted and the report reviewed and electronically signed by: SATNAM GONZALES DO on Nov 25 2021 11:58AM [facility] DIVISION OF RADIOLOGY * * [...] subcentimeter joint bodies. DIVISION OF RADIOLOGY Provider, [facility] - 11/25/2021 * * *Final [...] be communicated with the ordering provider via [employer] staff message or phone message by [employer] within 2 business days of report finalization. Algorithms for management of incidental imaging findings can be found on the [facility] Intranet Sharepoint site at: [email or web address] naging%20Incidental%20Fi ndi ngs%20at%20Imaging/Forms /AllItems.[email or web address] Scale Model Maker: BAILEY Transcribe Date/Time: Nov 25 2021 11:53A Dictated by : SATNAM GONZALES DO This examination was interpreted and the report reviewed and electronically signed by: SATNAM GONZALES DO on Nov 25 2021 11:58AM [facility] XR Ribs - right Views and [facility] PAon 11-25-2021 IMPRESSION: Subacute and remote fractures without definite acute fracture. Scale Model Maker: [facility] Transcribe Date/Time: Nov 25 2021 12:10P Dictated by : ALE LAGUERRE MD This examination was interpreted and the report reviewed and electronically signed by: ALE LAGUERRE MD on Nov 25 2021 12:13PM [facility] DIVISION OF RADIOLOGY * * [...] rotator cuff tear. DIVISION OF RADIOLOGY Provider, [facility] - 11/25/2021 * * *Final [...] and remote fractures without definite acute fracture. Scale Model Maker: [facility] Transcribe Date/Time: Nov 25 2021 12:10P Dictated by : ALE LAGUERRE MD This examination was interpreted and the report reviewed and electronically signed by: ALE LAGUERRE MD on Nov 25 2021 12:13PM [facility] COVID-19 virus antigen assay SARS-CoV-2 (COVID-19) Ag IA.rapid Ql (Resp) [facility] Work Phone: Culture, urine Bacteria identified Cx Nom (U) Escherichia coli [facility] Work Phone: Vital Signs Date Time Vital Sign Value Performing Clinician Facility 05-25-2025 13:09-0400 Body temperature 97 [degF] Dr. Chance Kolb MD Work Phone: [facility] 05-25-2025 13:09-0400 Diastolic blood pressure 61 mm[Hg] Dr. Chance Kolb MD Work Phone: [facility] 05-25-2025 13:09-0400 Heart rate 89 /min Dr. Chance Kolb MD Work Phone: [facility] 05-25-2025 13:09-0400 Respiratory rate 18 /min Dr. Chance Kolb MD Work Phone: [facility] 05-25-2025 13:09-0400 Systolic blood pressure 120 mm[Hg] Dr. Chance Kolb MD Work Phone: [facility] 05-04-2025 14:41-0400 Body height 142 cm Nguyễn Stringer AGENCY SALES MANAGEMENT ASSISTANT.[employer] SUPERVISOR Work Phone: [facility] 05-04-2025 14:41-0400 Body mass index (BMI) [Ratio] 20.53 kg/m2 Nguyễn Stringer AGENCY SALES MANAGEMENT ASSISTANT.[employer]ER[employer] SUPERVISOR Work Phone: [facility] 05-04-2025 14:41-0400 Body weight 41.4 kg Nguyễn Stringer AGENCY SALES MANAGEMENT ASSISTANT.[employer]ER[employer] SUPERVISOR Work Phone: [facility] 05-04-2025 14:41-0400 Diastolic blood pressure 54 mm[Hg] Nguyễn Stringer AGENCY SALES MANAGEMENT ASSISTANT.[employer]ER[employer] SUPERVISOR Work Phone: [facility] 05-04-2025 14:41-0400 Heart rate 94 /min Nguyễn Stringer AGENCY SALES MANAGEMENT ASSISTANT.[employer]ER[employer] SUPERVISOR Work Phone: [facility] 05-04-2025 14:41-0400 Respiratory rate 16 /min Nguyễn Stringer AGENCY SALES MANAGEMENT ASSISTANT.[employer]ER[employer] SUPERVISOR Work Phone: [facility] 05-04-2025 14:41-0400 Systolic blood pressure 102 mm[Hg] Nguyễn Stringer AGENCY SALES MANAGEMENT ASSISTANT.[employer]ER[employer] SUPERVISOR Work Phone: [facility] 05-04-2025 13:08-0400 Body temperature 96.5 [degF] Dr. Chance Kolb MD Work Phone: [facility] 05-04-2025 13:08-0400 Diastolic blood pressure 60 mm[Hg] Dr. Chance Kolb MD Work Phone: 0(927)052-760509 [place] [address] 05-04-2025 13:08-0400 Heart rate 91 /min Dr. Chance Kolb MD Work Phone: 8(977)922-069166 [place] [address] 05-04-2025 13:08-0400 Respiratory rate 16 /min Dr. Chance Kolb MD Work Phone: 8(687)601-850666 [place] [address] 05-04-2025 13:08-0400 Systolic blood pressure 93 mm[Hg] Dr. Chance Kolb MD Work Phone: 6(587)801-494766 [place] [address] 03-30-2025 13:13-0400 Body temperature 97.7 [degF] Dr. Chance Kolb MD Work Phone: 3(575)749-586266 [place] [address] 03-30-2025 13:13-0400 Diastolic blood pressure 61 mm[Hg] Dr. Chance Kolb MD Work Phone: 4(458)148-497266 [place] [address] 03-30-2025 13:13-0400 Heart rate 91 /min Dr. Chance Kolb MD Work Phone: 0(599)139-699266 [place] [address] 03-30-2025 13:13-0400 Respiratory rate 14 /min Dr. Chance Kolb MD Work Phone: 0(179)693-921266 [place] [address] 03-30-2025 13:13-0400 Systolic blood pressure 112 mm[Hg] Dr. Chance Kolb MD Work Phone: 5(098)644-331009 [place] [address] 03-22-2025 09:42-0400 Body mass index (BMI) [Ratio] 21.12 kg/m2 Nguyễn Stringer APRN.[employer]ER[employer] SUPERVISOR Work Phone: [facility] 03-22-2025 09:42-0400 Body weight 43.5 kg Nguyễn Stringer APRN.[employer]K [employer]ER[employer] SUPERVISOR Work Phone: [facility] 03-22-2025 09:42-0400 Diastolic blood pressure 58 mm[Hg] Nguyễn Stringer APRN.[employer]ER[employer] SUPERVISOR Work Phone: [facility] 03-22-2025 09:42-0400 Heart rate 74 /min Nguyễn Stringer AGENCY SALES MANAGEMENT ASSISTANT.[employer]ER[employer] SUPERVISOR Work Phone: [facility] 03-22-2025 09:42-0400 Respiratory rate 16 /min Nguyễn Stringer AGENCY SALES MANAGEMENT ASSISTANT.[employer]ER[employer] SUPERVISOR Work Phone: [facility] 03-22-2025 09:42-0400 Systolic blood pressure 100 mm[Hg] Nguyễn Stringer AGENCY SALES MANAGEMENT ASSISTANT.[employer]ER[employer] SUPERVISOR Work Phone: [facility] 03-18-2025 13:04-0400 Body temperature 98.7 [degF] Dr. Chance Kolb MD Work Phone: 8(552)611-641909 [place] [address] 03-18-2025 13:04-0400 Diastolic blood pressure 66 mm[Hg] Dr. Chance Kolb MD Work Phone: 6(540)859-747209 [place] [address] 03-18-2025 13:04-0400 Heart rate 74 /min Dr. Chance Kolb MD Work Phone: 7(399)214-606909 [place] [address] 03-18-2025 13:04-0400 Respiratory rate 18 /min Dr. Chance Kolb MD Work Phone: 9(125)902-637909 [place] [address] 03-18-2025 13:04-0400 SaO2% (BldA) [Mass fraction] 98 % Dr. Chance Kolb MD Work Phone: 8(603)029-092709 [place] [address] 03-18-2025 13:04-0400 Systolic blood pressure 102 mm[Hg] Dr. Chance Kolb MD Work Phone: [facility] 03-18-2025 09:23-0400 Body height 147.[address] Chance Kolb MD Work Phone: 9(490)081-610209 [place] [address] 03-18-2025 09:23-0400 Body mass index (BMI) [Ratio] 18.8 kg/m2 Dr. Chance Kolb MD Work Phone: 6(469)936-391609 [place] [address] 03-18-2025 09:23-0400 Body weight 40.[address] Chance Kolb MD Work Phone: 4(465)439-405666 [place] [address] 03-13-2025 21:15-0400 Body temperature 97.8 [degF] Dr. Chance Kolb MD Work Phone: 7(860)697-072366 [place] [address] 03-13-2025 21:15-0400 Diastolic blood pressure 88 mm[Hg] Dr. Chance Kolb MD Work Phone: 6(870)734-628166 [place] [address] 03-13-2025 21:15-0400 Heart rate 76 /min Dr. Chance Kolb MD Work Phone: 1(991)496-760766 [place] [address] 03-13-2025 21:15-0400 Respiratory rate 18 /min Dr. Chance Kolb MD Work Phone: 3(345)243-360066 [place] [address] 03-13-2025 21:15-0400 SaO2% (BldA) [Mass fraction] 100 % Dr. Chance Kolb MD Work Phone: 2(799)789-538966 [place] [address] 03-13-2025 21:15-0400 Systolic blood pressure 138 mm[Hg] Dr. Chance Kolb MD Work Phone: 5(840)770-290766 [place] [address] 03-13-2025 19:13-0400 Body height 147.[address] Chance Kolb MD Work Phone: 7(072)330-604166 [place] [address] 03-13-2025 19:13-0400 Body mass index (BMI) [Ratio] 19.4 kg/m2 Dr. Chance Kolb MD Work Phone: 3(937)529-957866 [place] [address] 03-13-2025 19:13-0400 Body weight 42.[address] Chance Kolb MD Work Phone: 3(668)422-577066 [place] [address] 03-09-2025 12:55-0400 Body temperature 98.3 [degF] Dr. Chance Kolb MD Work Phone: 4(130)644-102666 [place] [address] 03-09-2025 12:55-0400 Diastolic blood pressure 67 mm[Hg] Dr. Chance Kolb MD Work Phone: 4(502)028-061466 [place] [address] 03-09-2025 12:55-0400 Heart rate 78 /min Dr. Chance Kolb MD Work Phone: 2(300)664-879166 [place] [address] 03-09-2025 12:55-0400 Respiratory rate 18 /min Dr. Chance Kolb MD Work Phone: 5(465)784-378766 [place] [address] 03-09-2025 12:55-0400 Systolic blood pressure 124 mm[Hg] Dr. Chance Kolb MD Work Phone: 3(741)135-178666 [place] [address] 03-02-2025 13:34-0400 Body mass index (BMI) [Ratio] 19.5 kg/m2 Dr. Chance Kolb MD Work Phone: 8(245)715-529966 [place] [address] 03-02-2025 13:34-0400 Body temperature 98.7 [degF] Dr. Chance Kolb MD Work Phone: 7(566)803-533166 [place] [address] 03-02-2025 13:34-0400 Diastolic blood pressure 56 mm[Hg] Dr. Chance Kolb MD Work Phone: 0(624)759-563366 [place] [address] 03-02-2025 13:34-0400 Heart rate 91 /min Dr. Chance Kolb MD Work Phone: 7(872)521-692266 [place] [address] 03-02-2025 13:34-0400 Respiratory rate 16 /min Dr. Chance Kolb MD Work Phone: 6(862)195-870466 [place] [address] 03-02-2025 13:34-0400 Systolic blood pressure 99 mm[Hg] Dr. Chance Kolb MD Work Phone: 4(332)444-971866 [place] [address] 02-07-2025 00:21-0400 Body weight 43.[address] Chance Kolb MD Work Phone: 3(152)358-620266 [place] [address] 02-02-2025 14:09-0400 Body mass index (BMI) [Ratio] 19.5 kg/m2 Dr. Chance Kolb MD Work Phone: 8(963)926-744466 [place] [address] 02-02-2025 14:09-0400 Body temperature 97 [degF] Dr. Chance Kolb MD Work Phone: 4(889)169-693966 [place] [address] 02-02-2025 14:09-0400 Diastolic blood pressure 66 mm[Hg] Dr. Chance Kolb MD Work Phone: 0(896)213-134466 [place] [address] 02-02-2025 14:09-0400 Heart rate 96 /min Dr. Chance Kolb MD Work Phone: 8(218)412-717166 [place] [address] 02-02-2025 14:09-0400 Respiratory rate 18 /min Dr. Chance Kolb MD Work Phone: 9(722)787-141166 [place] [address] 02-02-2025 14:09-0400 Systolic blood pressure 106 mm[Hg] Dr. Chance Kolb MD Work Phone: 6(990)741-453066 [place] [address] 01-07-2025 00:47-0400 Body weight 43.[address] Chance Kolb MD Work Phone: 2(168)419-275566 [place] [address] 01-06-2025 14:05-0400 Body height 148.[address] Chance Kolb MD Work Phone: 7(823)462-259766 [place] [address] 01-06-2025 14:05-0400 Body mass index (BMI) [Ratio] 19.5 kg/m2 Dr. Chance Kolb MD Work Phone: 1(534)832-393266 [place] [address] 01-06-2025 14:05-0400 Body temperature 97.7 [degF] Dr. Chance Kolb MD Work Phone: 7(605)683-466066 [place] [address] 01-06-2025 14:05-0400 Body weight 43.[address] Chance Kolb MD Work Phone: 8(121)974-961366 [place] [address] 01-06-2025 14:05-0400 Diastolic blood pressure 60 mm[Hg] Dr. Chance Kolb MD Work Phone: 8(852)429-356666 [place] [address] 01-06-2025 14:05-0400 Heart rate 81 /min Dr. Chance Kolb MD Work Phone: 4(638)347-487166 [place] [address] 01-06-2025 14:05-0400 Respiratory rate 16 /min Dr. Chance Kolb MD Work Phone: 8(270)407-705366 [place] [address] 01-06-2025 14:05-0400 Systolic blood pressure 98 mm[Hg] Dr. Chance Kolb MD Work Phone: 2(640)853-169766 [place] [address] 01-01-2025 22:52-0400 Body temperature 98 [degF] Dr. Chance Klob MD Work Phone: 2(908)746-617766 [place] [address] 01-01-2025 22:52-0400 Diastolic blood pressure 58 mm[Hg] Dr. Chance Kolb MD Work Phone: 3(061)900-252366 [place] [address] 01-01-2025 22:52-0400 Heart rate 90 /min Dr. Chance Kolb MD Work Phone: 8(893)858-214166 [place] [address] 01-01-2025 22:52-0400 Respiratory rate 16 /min Dr. Chance Kolb MD Work Phone: 7(620)471-230166 [place] [address] 01-01-2025 22:52-0400 SaO2% (BldA) [Mass fraction] 94 % Dr. Chance Kolb MD Work Phone: 9(673)708-201366 [place] [address] 01-01-2025 22:52-0400 Systolic blood pressure 102 mm[Hg] Dr. Chance Kolb MD Work Phone: 2(629)123-738466 [place] [address] 01-01-2025 20:13-0400 Body mass index (BMI) [Ratio] 18.7 kg/m2 Dr. Chance Kolb MD Work Phone: 3(043)437-126666 [place] [address] 01-01-2025 20:13-0400 Body weight 40.[address] Chance Kolb MD Work Phone: 0(335)916-749866 [place] [address] 07-27-2024 12:20-0500 Body mass index (BMI) [Ratio] 20.39 kg/m2 Nguyễn Stringer APRN.[employer] SUPERVISOR Work Phone: 5(142)258-904754 [place] [address] 07-27-2024 12:20-0500 Body weight 42 kg Nguyễn Stringer APRN.[employer] SUPERVISOR Work Phone: 1(538)257-460654 [place] [address] 07-27-2024 12:20-0500 Diastolic blood pressure 54 mm[Hg] Nguyễn Stringer AGENCY SALES MANAGEMENT ASSISTANT.[employer] SUPERVISOR Work Phone: [facility] 07-27-2024 12:20-0500 Heart rate 88 /min Nguyễn Bergs AGENCY SALES MANAGEMENT ASSISTANT.[employer] SUPERVISOR Work Phone: [facility] 07-27-2024 12:20-0500 Respiratory rate 16 /min Nguyễn Bergs AGENCY SALES MANAGEMENT ASSISTANT.[employer]ER[employer] SUPERVISOR Work Phone: [facility] 07-27-2024 12:20-0500 Systolic blood pressure 89 mm[Hg] Nguyễn Bergs AGENCY SALES MANAGEMENT ASSISTANT.[employer]ER[employer] SUPERVISOR Work Phone: [facility] 07-25-2024 10:42-0500 Body mass index (BMI) [Ratio] 20.44 kg/m2 Carmen Miranda APRN.HOME CARE ASSISTANT Work Phone: [facility] 07-25-2024 10:42-0500 Body temperature 97.3 [degF] Carmen Miranda APRN.HOME CARE ASSISTANT Work Phone: [facility] 07-25-2024 10:42-0500 Body weight 42.1 kg Carmen Miranda APRN.HOME CARE ASSISTANT Work Phone: [facility] 07-25-2024 10:42-0500 Diastolic blood pressure 71 mm[Hg] Carmen Miranda APRN.HOME CARE ASSISTANT Work Phone: [facility] 07-25-2024 10:42-0500 Heart rate 83 /min Carmen Miranda APRN.HOME CARE ASSISTANT Work Phone: [facility] 07-25-2024 10:42-0500 Respiratory rate 16 /min Carmen Miranda APRN.HOME CARE ASSISTANT Work Phone: [facility] 07-25-2024 10:42-0500 SaO2% (BldA) [Mass fraction] 94 % Carmen Miranda APRN.HOME CARE ASSISTANT Work Phone: [facility] 07-25-2024 10:42-0500 Systolic blood pressure 109 mm[Hg] Carmen Miranda APRN.HOME CARE ASSISTANT Work Phone: [facility] 06-24-2024 15:46-0400 Body mass index (BMI) [Ratio] 20.64 kg/m2 Chance Kolb MD Work Phone: [facility] 06-24-2024 15:46-0400 Body temperature 97.11 [degF] Chance Kolb MD Work Phone: [facility] 06-24-2024 15:46-0400 Body weight 42.5 kg Chance Kolb MD Work Phone: [facility] 06-24-2024 15:46-0400 Diastolic blood pressure 60 mm[Hg] Chance Kolb MD Work Phone: [facility] 06-24-2024 15:46-0400 Heart rate 84 /min Chance Kolb MD Work Phone: [facility] 06-24-2024 15:46-0400 Respiratory rate 18 /min Chance Kolb MD Work Phone: [facility] 06-24-2024 15:46-0400 SaO2% (BldA) [Mass fraction] 93 % Chance Kolb MD Work Phone: [facility] 06-24-2024 15:46-0400 Systolic blood pressure 90 mm[Hg] Chance Kolb MD Work Phone: [facility] 05-14-2024 15:04-0400 Body mass index (BMI) [Ratio] 20.05 kg/m2 Nguyễn Stringer AGENCY SALES MANAGEMENT ASSISTANT.[employer]ER[employer] SUPERVISOR Work Phone: [facility] 05-14-2024 15:04-0400 Body weight 41.3 kg Nguyễn Stringer AGENCY SALES MANAGEMENT ASSISTANT.[employer]ER[employer] SUPERVISOR Work Phone: [facility] 05-14-2024 15:04-0400 Diastolic blood pressure 61 mm[Hg] Nguyễn Stringer AGENCY SALES MANAGEMENT ASSISTANT.[employer]ER[employer] SUPERVISOR Work Phone: [facility] 05-14-2024 15:04-0400 Heart rate 87 /min Nguyễn Stringer AGENCY SALES MANAGEMENT ASSISTANT.[employer]ER[employer] SUPERVISOR Work Phone: [facility] 05-14-2024 15:04-0400 Respiratory rate 16 /min Nguyễn Stringer AGENCY SALES MANAGEMENT ASSISTANT.[employer]K [employer]ER[employer] SUPERVISOR Work Phone: [facility] 05-14-2024 15:04-0400 Systolic blood pressure 98 mm[Hg] Nguyễn Stringer AGENCY SALES MANAGEMENT ASSISTANT.[employer]ER[employer] SUPERVISOR Work Phone: [facility] 01-09-2024 10:29-0400 Body height 148.6 cm Thea Vail MD Work Phone: [facility] 01-09-2024 10:29-0400 Body mass index (BMI) [Ratio] 18.49 kg/m2 Thea Vail MD Work Phone: [facility] 01-09-2024 10:29040 Body weight 40.82 kg Thea Vail MD Work Phone: [facility] 01-09-2024 10:29-0400 Diastolic blood pressure 70 mm[Hg] Thea Vail MD Work Phone: [facility] 01-09-2024 10:29-0400 Systolic blood pressure 116 mm[Hg] Thea Vail MD Work Phone: [facility] 12-31-2023 14:19-0400 Body mass index (BMI) [Ratio] 19.16 kg/m2 Malachi Vijaya AGENCY SALES MANAGEMENT ASSISTANT.HOME CARE ASSISTANT Work Phone: [facility] 12-31-2023 14:19-0400 Body weight 39.46 kg Malachi Vijaya AGENCY SALES MANAGEMENT ASSISTANT.HOME CARE ASSISTANT Work Phone: [facility] 12-31-2023 14:19-0400 Diastolic blood pressure 52 mm[Hg] Malachi Vijaya AGENCY SALES MANAGEMENT ASSISTANT.HOME CARE ASSISTANT Work Phone: [facility] 12-31-2023 14:19-0400 Heart rate 95 /min Malachi Vijaya AGENCY SALES MANAGEMENT ASSISTANT.HOME CARE ASSISTANT Work Phone: [facility] 12-31-2023 14:19-0400 SaO2% (BldA) [Mass fraction] 90 % Malachi Vijaya AGENCY SALES MANAGEMENT ASSISTANT.HOME CARE ASSISTANT Work Phone: [facility] 12-31-2023 14:19-0400 Systolic blood pressure 110 mm[Hg] Malachi Vijaya AGENCY SALES MANAGEMENT ASSISTANT.HOME CARE ASSISTANT Work Phone: [facility] 08-29-2023 10:13-0500 Body height 148.6 cm Thea Vail MD Work Phone: [facility] 08-29-2023 10:13-0500 Body mass index (BMI) [Ratio] 18.49 kg/m2 Thea Vail MD Work Phone: [facility] 08-29-2023 10:13-0500 Body weight 40.82 kg Thea Vail MD Work Phone: [facility] 08-29-2023 10:13-0500 Diastolic blood pressure 74 mm[Hg] Thea Vail MD Work Phone: [facility] 08-29-2023 10:13-0500 Systolic blood pressure 114 mm[Hg] Thea Vail MD Work Phone: [facility] 08-12-2023 13:54-0500 Body height 148.6 cm Thea Vail MD Work Phone: [facility] 08-12-2023 13:54-0500 Body mass index (BMI) [Ratio] 18.49 kg/m2 Thea Vail MD Work Phone: [facility] 08-12-2023 13:54-0500 Body weight 40.82 kg Thea Vail MD Work Phone: [facility] 08-12-2023 13:54-0500 Diastolic blood pressure 68 mm[Hg] Thea Vail MD Work Phone: [facility] 08-12-2023 13:54-0500 Systolic blood pressure 122 mm[Hg] Thea Vail MD Work Phone: [facility] 07-31-2023 14:39-0500 Body temperature 98.01 [degF] Malachi Grimesr AGENCY SALES MANAGEMENT ASSISTANT.HOME CARE ASSISTANT Work Phone: [facility] 07-31-2023 14:39-0500 Body weight 40.37 kg Malachi Vijaya AGENCY SALES MANAGEMENT ASSISTANT.HOME CARE ASSISTANT Work Phone: [facility] 07-31-2023 14:39-0500 Diastolic blood pressure 40 mm[Hg] Malachi Vijaya AGENCY SALES MANAGEMENT ASSISTANT.HOME CARE ASSISTANT Work Phone: [facility] 07-31-2023 14:39-0500 Heart rate 83 /min Malachi Vijaya AGENCY SALES MANAGEMENT ASSISTANT.HOME CARE ASSISTANT Work Phone: [facility] 07-31-2023 14:39-0500 SaO2% (BldA) [Mass fraction] 88 % Malachi Vijaya AGENCY SALES MANAGEMENT ASSISTANT.HOME CARE ASSISTANT Work Phone: [facility] 07-31-2023 14:39-0500 Systolic blood pressure 80 mm[Hg] Malachi Vijaya AGENCY SALES MANAGEMENT ASSISTANT.HOME CARE ASSISTANT Work Phone: [facility] 06-21-2023 16:07-0400 Body temperature 98.6 [degF] Chance Kolb MD Work Phone: [facility] 06-21-2023 16:07-0400 Body weight 40.37 kg Chance Kolb MD Work Phone: [facility] 06-21-2023 16:07-0400 Diastolic blood pressure 60 mm[Hg] Chance Kolb MD Work Phone: [facility] 06-21-2023 16:07-0400 Heart rate 80 /min Chance Kolb MD Work Phone: [facility] 06-21-2023 16:07-0400 Respiratory rate 20 /min Chance Kolb MD Work Phone: [facility] 06-21-2023 16:07-0400 Systolic blood pressure 90 mm[Hg] Chance Kolb MD Work Phone: [facility] 05-06-2023 11:15-0400 Body weight 38.42 kg Malachi Vijaya AGENCY SALES MANAGEMENT ASSISTANT.HOME CARE ASSISTANT Work Phone: [facility] 05-06-2023 11:15-0400 Diastolic blood pressure 60 mm[Hg] Malachi Vijaya AGENCY SALES MANAGEMENT ASSISTANT.HOME CARE ASSISTANT Work Phone: [facility] 05-06-2023 11:15-0400 Heart rate 68 /min Malachi Vijaya AGENCY SALES MANAGEMENT ASSISTANT.HOME CARE ASSISTANT Work Phone: [facility] 05-06-2023 11:15-0400 SaO2% (BldA) [Mass fraction] 96 % Malachi Vijaya AGENCY SALES MANAGEMENT ASSISTANT.HOME CARE ASSISTANT Work Phone: [facility] 05-06-2023 11:15-0400 Systolic blood pressure 100 mm[Hg] Malachi Vijaya AGENCY SALES MANAGEMENT ASSISTANT.HOME CARE ASSISTANT Work Phone: [facility] 04-29-2023 13:28-0400 Body height 147.32 cm [facility] 04-29-2023 13:28-0400 Body mass index (BMI) [Ratio] 17.8 kg/m2 [facility] 04-29-2023 13:28-0400 Body temperature 97.5 [degF] [facility] 04-29-2023 13:28-0400 Body weight 38.73 kg [facility] 04-29-2023 13:28-0400 Diastolic blood pressure 63 mm[Hg] [facility] 04-29-2023 13:28-0400 Heart rate 90 /min [facility] 04-29-2023 13:28-0400 Respiratory rate 18 /min [facility] 04-29-2023 13:28-0400 SaO2% (BldA) [Mass fraction] 96 % [facility] 04-29-2023 13:28-0400 Systolic blood pressure 112 mm[Hg] [facility] 03-26-2023 10:24-0400 Body weight 37.65 kg Malachi Vijaya AGENCY SALES MANAGEMENT ASSISTANT.HOME CARE ASSISTANT Work Phone: [facility] 03-26-2023 10:24-0400 Diastolic blood pressure 54 mm[Hg] Malachi Vijaya AGENCY SALES MANAGEMENT ASSISTANT.HOME CARE ASSISTANT Work Phone: [facility] 03-26-2023 10:24-0400 Heart rate 75 /min Malachi Vijaya AGENCY SALES MANAGEMENT ASSISTANT.HOME CARE ASSISTANT Work Phone: [facility] 03-26-2023 10:24-0400 SaO2% (BldA) [Mass fraction] 85 % Malachi Vijaya AGENCY SALES MANAGEMENT ASSISTANT.HOME CARE ASSISTANT Work Phone: [facility] 03-26-2023 10:24-0400 Systolic blood pressure 100 mm[Hg] Malachi Lilly APRN.CNP Work Phone: [facility] 11-16-2022 14:29-0500 Body temperature 97.3 [degF] Chance Kolb MD Work Phone: [facility] 11-16-2022 14:29-0500 Body weight 37.2 kg Chance Kolb MD Work Phone: [facility] 11-16-2022 14:29-0500 Diastolic blood pressure 60 mm[Hg] Chance Kolb MD Work Phone: [facility] 11-16-2022 14:29-0500 Heart rate 96 /min Chance Kolb MD Work Phone: [facility] 11-16-2022 14:29-0500 Respiratory rate 18 /min Chance Klob MD Work Phone: [facility] 11-16-2022 14:29-0500 SaO2% (BldA) [Mass fraction] 96 % Chance Kolb MD Work Phone: [facility] 11-16-2022 14:29-0500 Systolic blood pressure 104 mm[Hg] Chance Kolb MD Work Phone: [facility] 09-08-2022 14:26-0500 Body mass index (BMI) [Ratio] 16.1 kg/m2 Dr. Chance Kolb Work Phone: [facility] Work Phone: 09-08-2022 13:42-0500 Body temperature 98.4 [degF] Dr. Chance Kolb Work Phone: [facility] Work Phone: 09-08-2022 13:42-0500 Diastolic blood pressure 79 mm[Hg] Dr. Chance Kolb Work Phone: [facility] Work Phone: 09-08-2022 13:42-0500 Heart rate 76 /min Dr. Chance Kolb Work Phone: [facility] Work Phone: 09-08-2022 13:42-0500 Respiratory rate 17 /min Dr. Chance Kolb Work Phone: [facility] Work Phone: 09-08-2022 13:42-0500 SaO2% (BldA) [Mass fraction] 97 % Dr. Chance Kolb Work Phone: [facility] Work Phone: 09-08-2022 13:42-0500 Systolic blood pressure 120 mm[Hg] Dr. Chance Kolb Work Phone: [facility] Work Phone: 09-07-2022 14:59-0500 Body height 147.[address] Chance Kolb Work Phone: [facility] Work Phone: 09-07-2022 14:59-0500 Body weight [address] Chance Kolb Work Phone: [facility] Work Phone: 09-07-2022 01:09-0500 Diastolic blood pressure 66 mm[Hg] [facility] Work Phone: 09-07-2022 01:09-0500 Respiratory rate 18 /min [facility] Work Phone: 09-07-2022 01:09-0500 SaO2% (BldA) [Mass fraction] 97 % [facility] Work Phone: 09-07-2022 01:09-0500 Systolic blood pressure 104 mm[Hg] [facility] Work Phone: 09-06-2022 22:10-0500 Body temperature 98.9 [degF] [facility] Work Phone: 09-06-2022 22:10-0500 Heart rate 69 /min [facility] Work Phone: 09-06-2022 17:44-0500 Body height 147.32 cm [facility] Work Phone: 09-06-2022 17:44-0500 Body mass index (BMI) [Ratio] 17.3 kg/m2 [facility] Work Phone: 09-06-2022 17:44-0500 Body weight 37.64 kg [facility] Work Phone: 09-02-2022 10:37-0500 Body temperature 97.5 [degF] [facility] Work Phone: 09-02-2022 10:37-0500 Diastolic blood pressure 66 mm[Hg] [facility] Work Phone: 09-02-2022 10:37-0500 Heart rate 89 /min [facility] Work Phone: 09-02-2022 10:37-0500 Respiratory rate 8 /min [facility] Work Phone: 09-02-2022 10:37-0500 SaO2% (BldA) [Mass fraction] 100 % [facility] Work Phone: 09-02-2022 10:37-0500 Systolic blood pressure 111 mm[Hg] [facility] Work Phone: 09-01-2022 10:48-0500 Body height 147.32 cm [facility] Work Phone: 09-01-2022 10:48-0500 Body mass index (BMI) [Ratio] 18 kg/m2 [facility] Work Phone: 09-01-2022 10:48-0500 Body weight 39.2 kg [facility] Work Phone: 05-27-2022 10:43-0400 Body height 147.32 cm [facility] Work Phone: 05-27-2022 10:43-0400 Body mass index (BMI) [Ratio] 19.3 kg/m2 [facility] Work Phone: 05-27-2022 10:43-0400 Body temperature 98 [degF] [facility] Work Phone: 05-27-2022 10:43-0400 Body weight 42 kg [facility] Work Phone: 05-27-2022 10:43-0400 Diastolic blood pressure 82 mm[Hg] [facility] Work Phone: 05-27-2022 10:43-0400 Heart rate 79 /min [facility] Work Phone: 05-27-2022 10:43-0400 Respiratory rate 12 /min [facility] Work Phone: 05-27-2022 10:43-0400 SaO2% (BldA) [Mass fraction] 94 % [facility] Work Phone: 05-27-2022 10:43-0400 Systolic blood pressure 131 mm[Hg] [facility] Work Phone: 03-30-2022 13:04-0400 Body weight 38.56 kg Chance Kolb MD Work Phone: [facility] 03-30-2022 13:04-0400 Diastolic blood pressure 56 mm[Hg] Chance Kolb MD Work Phone: [facility] 03-30-2022 13:04-0400 Heart rate 75 /min Chance Kolb MD Work Phone: [facility] 03-30-2022 13:04-0400 SaO2% (BldA) [Mass fraction] 97 % Chance Kolb MD Work Phone: [facility] 03-30-2022 13:04-0400 Systolic blood pressure 98 mm[Hg] Chance Kolb MD Work Phone: [facility] 03-20-2022 06:54-0400 Body weight 39.37 kg Essie Hartsburg AGENCY SALES MANAGEMENT ASSISTANT.HOME CARE ASSISTANT Work Phone: [facility] 03-20-2022 06:54-0400 Diastolic blood pressure 60 mm[Hg] Essie Hartsburg AGENCY SALES MANAGEMENT ASSISTANT.HOME CARE ASSISTANT Work Phone: [facility] 03-20-2022 06:54-0400 Systolic blood pressure 100 mm[Hg] Essie Hartsburg AGENCY SALES MANAGEMENT ASSISTANT.HOME CARE ASSISTANT Work Phone: [facility] 02-01-2022 13:46-0400 Body temperature 96.8 [degF] Bailey Johnson AGENCY SALES MANAGEMENT ASSISTANT.HOME CARE ASSISTANT Work Phone: [facility] 02-01-2022 13:46-0400 Body weight 39.19 kg Bailey Johnson AGENCY SALES MANAGEMENT ASSISTANT.HOME CARE ASSISTANT Work Phone: [facility] 02-01-2022 13:46-0400 Diastolic blood pressure 56 mm[Hg] Bailey Johnson AGENCY SALES MANAGEMENT ASSISTANT.HOME CARE ASSISTANT Work Phone: [facility] 02-01-2022 13:46-0400 Heart rate 75 /min Bailey Johnson AGENCY SALES MANAGEMENT ASSISTANT.HOME CARE ASSISTANT Work Phone: [facility] 02-01-2022 13:46-0400 Respiratory rate 20 /min Bailey Johnson AGENCY SALES MANAGEMENT ASSISTANT.HOME CARE ASSISTANT Work Phone: [facility] 02-01-2022 13:46-0400 SaO2% (BldA) [Mass fraction] 96 % Bailey Johnson AGENCY SALES MANAGEMENT ASSISTANT.HOME CARE ASSISTANT Work Phone: [facility] 02-01-2022 13:46-0400 Systolic blood pressure 98 mm[Hg] Bailey Johnson AGENCY SALES MANAGEMENT ASSISTANT.HOME CARE ASSISTANT Work Phone: [facility] 10-17-2021 19:35-0500 Body weight 40.82 kg Chance Kolb MD Work Phone: [facility] 10-17-2021 19:35-0500 Heart rate 86 /min Chance Kolb MD Work Phone: [facility] Encounters Encounter Date Encounter Type Care Provider Facility Start: 07-10-2025 End: 07-10-2025 ambulatory CHANCE D JOSIELB Facility:[facility] Start: 06-28-2025 ambulatory MANJU ALFARO Facility:[facility] Start: 06-23-2025 End: 06-23-2025 ambulatory CHANCE D CORTES Facility:[facility] Start: 06-18-2025 ambulatory Chance D Jamesamplb Facilit y:[facility] Start: 05-25-2025 [facility] Start: 05-25-2025 End: 06-08-2025 Admission to same day surgery center Dr. Cedric Gibbons MD -[facility] [place] Work Phone: Start: 05-25-2025 End: 06-08-[address] Chance Kolb MD Work Phone: [facility] Start: 05-24-2025 ambulatory [facility] Facility:[facility] Start: 05-24-2025 End: 05-24-2025 Subsequent hospital visit by physician Screen Mammo [facility] Mammogram Start: 05-09-2025 [facility] / [facility] Start: 05-04-2025 Non-patient / Non-visit Dr. Cedric Gibbons MD [facility] Start: 05-04-2025 End: 05-04-2025 Patient encounter procedure Nguyễn Stringer AGENCY SALES MANAGEMENT ASSISTANT.DESK CLERKS SUPERVISOR Work Phone: [facility] [place] Comment on above: Medicare annual well ness [...] Start: 04-29-2025 End: 04-29-2025 ambulatory MALACHI GRIMESR Facility:[facility] Start: 04-20-2025 Non-patient / Non-visit Dr. Cedric Gibbons MD [facility] Start: 04-01-2025 [facility] Start: 03-30-2025 End: 04-08-[address] Chance Kolb MD Work Phone: [facility] Start: 03-30-2025 End: 04-08-[address] Cedric Gibbons MD -[facility] Work Phone: Start: 03-30-2025 Non-patient / Non-visit Dr. Cedric Gibbons MD [facility] Start: 03-23-2025 Non-patient / Non-visit Dr. Cedric Gibbons MD [facility] Start: 03-22-2025 End: 03-22-2025 Office outpatient visit 25 minutes Nguyễn Stringer APRN.[facility] Work Phone: [facility] [place] Comment on above: Laceration of lower extremity, unspecified laterality, subsequent encounter (Primary Dx); Visit for suture removal; Fall, subsequent encounter; Acute pain of left hip; Compression fracture of L4 vertebra with routine healing, subsequent encounter; Age-related osteoporosis without current pathological fracture Start: 03-22-2025 End: 03-22-2025 [facility] Facility:[facility] Start: 03-18-2025 End: 03-18-2025 Emergency department patient visit Dr. Chance Kolb MD Work Phone: -Emergency Department Work Phone: Start: 03-13-2025 End: 03-13-2025 Emergency department patient visit Dr. Chance Kolb MD Work Phone: -Emergency Department Work Phone: Start: 03-11-2025 [facility] / [facility] Start: 03-09-2025 Non-patient / Non-visit Dr. Cedric Gibbons MD [facility] Start: 03-09-[address] Cedric Buck rn, MD [facility] Work Phone: Start: 03-02-2025 End: 03-08-[address] Chance Kolb MD Work Phone: -[facility] Start: 03-02-2025 End: 03-08-[address] Cedric Gibbons MD -[facility] Work Phone: Start: 03-02-2025 [facility] / [facility] Start: 02-23-2025 Non-patient / [facility] Start: 02-16-2025 Non-patient / [facility] Start: 02-09-2025 Non-patient / [facility] Start: 02-03-2025 End: 02-03-2025 Refill Chance Kolb MD Work Phone: [facility] [place] Comment on above: Refill Request Start: 02-02-2025 [facility] / [facility] Start: 02-02-2025 End: 02-06-[address] Chance Kolb MD Work Phone: [facility] Work Phone: Start: 02-02-2025 End: 02-06-[address] Cedric Gibbons MD -[facility] Work Phone: Start: 01-29-2025 End: 01-29-2025 ambulatory MALACHI VIJAYA Facility:[facility] Start: 01-19-2025 [facility] / [facility] Start: 01-13-[facility]25 [facility] Start: 01-06-[facility] / [facility] Start: 01-06-2025 End: 01-06-[address] Cedric Gibbons MD [facility] Work Phone: Start: 01-06-2025 End: 01-06-2025 ambulatory Cedric Gibbons Facility:[facility] Start: 01-01-2025 End: 01-01-2025 Emergency department patient visit Dr. Crow Moreno -Emergency Department Work Phone: Start: 12-17-2024 End: 12-17-2024 ambulatory CHANCE KOLB Facility:[facility] Start: 2024 End: 2024 Telephone encounter Nguyễn Strinegr APRN.CNS Work Phone: [facility] [place] Comment on above: Results Start: 10-06-2024 End: 10-08-2024 ambulatory Chance Kolb MD Work Phone: [facility] [place] Comment on above: Shingles vaccine Start: 10-05-2024 End: 10-05-2024 ambulatory CARMEN MIRANDA Facility:[facility] Start: 08-17-2024 End: 08-17-2024 ambulatory CHANCE KOLB Facility:[facility] Start: 08-17-2024 End: 08-17-2024 Subsequent hospital visit by physician Bone Density [facility] Work Phone: Radiology Comment on above: Asymptomatic postmen opausal status [Z78.0] Start: 08-14-2024 End: 08-17-2024 ambulatory Bailey O'Edison PT [facility] Comment on above: Gait instability (Pr imary Dx) Start: 08-07-2024 End: 08-12-2024 Telephone encounter Chance Kolb MD Work Phone: [facility] [place] Start: 08-07-2024 End: 08-11-2024 ambulatory Bailey O'Edison PT [facility] Comment on above: Gait instability (Pr imary Dx) uTI Start: 07-27-2024 End: 07-27-2024 ambulatory Bailey O'Edison PT [facility] Comment on above: Gait instability (Pr imary Dx) Start: 07-27-2024 End: 07-27-2024 Office outpatient visit 15 minutes Nguyễn Stringer APRN.DESK CLERKS SUPERVISOR Work Phone: [facility] [place] Comment on above: Urinary tract infect ion with hematuria, site unspecified (Primary Dx) Start: 07-27-2024 End: 07-27-2024 ambulatory NGUYỄN STRINGER Facility:[facility] Start: 07-25-2024 End: 07-25-2024 ambulatory CHANCE KOLB Facility:[facility] Start: 07-25-2024 End: 07-25-2024 Patient encounter procedure Carmen Miranda APRN.HOME CARE ASSISTANT Work Phone: [facility] Comment on above: Dysuria (Primary Dx) ; Urinary tract infection with hematuria, site unspecified Start: 07-17-2024 End: 07-17-2024 ambulatory Bailey Madrigal PT [facility] Comment on above: Gait instability (Pr imary Dx) Start: 06-24-2024 End: 06-24-2024 Office outpatient visit 25 minutes Chance Kolb MD Work Phone: [facility] [place] Comment on above: Chronic midline low back [...] Office outpatient visit 15 minutes Nguyễn Stringer APRN.DESK CLERKS SUPERVISOR Work Phone: [facility] [place] Comment on above: Cervicalgia (Primary Dx); Acute intractable headache, unspecified headache type; Acute intractable tension-type headache Start: 03-30-2024 Documentation procedure Mammog nohemy Coordinator [facility] Department Start: 03-30-2024 Letter encounter Mammography Coordinator [facility] Department Start: 03-27-2024 End: 03-27-2024 Subsequent hospital visit by physician Screen Mammo [facility] Mammogram Comment on above: Encounter for screen ing mammogram for breast cancer [Z12.31] Start: 01-09-2024 End: 01-09-2024 ambulatory CORTES FLETCHER [facility] Start: 01-09-2024 End: 01-09-2024 Office outpatient visit 15 minutes Thea Vail MD Work Phone: [facility] Comment on above: Rupture of flexor po llicis longus muscle (Primary Dx); Retained orthopedic hardware; Mass of finger of right hand Start: 01-03-2024 ambulatory Malachi Lilly APRN.HOME CARE ASSISTANT Work Phone: [facility] [place] Comment on above: Results Start: 01-03-2024 E-mail encounter fro m caregiver Malachi Lilly APRN.HOME CARE ASSISTANT Work Phone: [facility] [place] Start: 01-01-2024 ambulatory Maggie weathers PA-C Work Phone: Orthopaedics Start: 01-01-2024 Patient encounter procedure Maggie Landerosi PA-C Work Phone: Orthopaedics Comment on above: I saw you before and I didn't follow through. Could we schedule an appointment. You are in [place] right? Start: 12-31-2023 End: 12-31-2023 Subsequent hospital visit by physician Xr [facility] [place] Work Phone: Radiology Comment on above: Acute bilateral low back pain without sciatica [M54.50] Start: 12-31-2023 End: 12-31-2023 Patient encounter procedure Malachi Lilly APRN.HOME CARE ASSISTANT Work Phone: [facility] [place] Comment on above: Acute bilateral low back pain without sciatica (Primary Dx); Age-related osteoporosis without current pathological fracture; Gastroesophageal reflux disease without esophagitis; Crohn's disease of large intestine without complication (HCC); Acquired hypothyroidism; Depression, unspecified depression type; Anxiety; Encounter for screening mammogram for breast cancer Start: 09-03-2023 End: 09-03-2023 Subsequent hospital visit by physician Cate [facility] [place] Work Phone: Radiology Comment on above: Fall from bed, initi al encounter [W06.XXXA] Start: 08-29-2023 Telephone encounter Thea dubon MD Work Phone: [facility] Comment on above: Surgery Scheduling Start: 08-29-2023 End: 08-29-2023 ambulatory [facility] Start: 08-29-2023 End: 08-29-2023 Office outpatient visit 25 minutes Thea Vail MD Work Phone: [facility] Comment on above: Rupture of flexor po llicis longus muscle; Retained orthopedic hardware Start: 08-26-2023 End: 08-27-2023 ambulatory [facility] Start: 08-26-2023 End: 08-26-2023 Subsequent hospital visit by physician [facility] Mr Exam Room 1 [facility] MRI Comment on above: Mass of finger of ri ght hand; Rupture of flexor pollicis longus muscle Start: 08-12-2023 End: 08-12-2023 ambulatory [facility] Start: 08-12-2023 End: 08-12-2023 Office outpatient new 30 minutes Thea aVil MD Work Phone: [facility] Comment on above: Mass of finger of ri ght hand; Rupture of flexor pollicis longus muscle Start: 08-07-2023 Orders Only Long Back aislinn RING Work Phone: [facility] Comment on above: Right hand pain (Loretta deyanira Dx) Start: 08-02-2023 Telephone encounter Malachi tao APRN.CNP Work Phone: [facility] [place] Comment on above: Results Start: 07-31-2023 End: 07-31-2023 Patient encounter procedure Malachi Lilly APRN.HOME CARE ASSISTANT Work Phone: [facility] [place] Comment on above: Urinary tract infect ion without hematuria, site unspecified (Primary Dx) Start: 06-21-2023 End: 06-21-2023 Office outpatient visit 25 minutes Chance Kolb MD Work Phone: [facility] [place] Comment on above: Acquired hypothyroid ism (Primary Dx); Numbness and tingling in right hand; Raynaud's disease without gangrene; Gastroesophageal reflux disease without esophagitis; Vitamin D deficiency; Hypercholesteremia; Crohn's disease of large intestine without complication (HCC); Encounter for long-term current use of medication Start: 05-06-2023 End: 05-06-2023 Patient encounter procedure Malachi Lilly APRN.HOME CARE ASSISTANT Work Phone: [facility] [place] Comment on above: Abrasion (Primary Dx ); Visit for suture removal Start: 04-29-2023 End: 04-29-2023 [facility] Start: 03-27-2023 Documentation procedure [facility]og [facility]my [facility] Start: 03-27-2023 Letter encounter Mammography Coordinator [facility] Department Start: 03-26-2023 End: 03-26-2023 Patient encounter procedure Malachi Lilly APRN.HOME CARE ASSISTANT Work Phone: [facility] [place] Comment on above: Nodule of finger of right hand (Primary Dx); Thumb joint locking; Other headache syndrome; Gastroesophageal reflux disease without esophagitis; Raynaud's disease without gangrene Start: 03-25-2023 End: 03-25-2023 Patient encounter procedure Essie Man APRN.HOME CARE ASSISTANT Work Phone: OB/Gynecology Comment on above: Encounter for screen ing mammogram for breast cancer (Primary Dx) Start: 03-25-2023 End: 03-25-2023 Subsequent hospital visit by physician Screen Mammo [facility] Mammogram Comment on above: [...] Chance hurtado MD Work Phone: Internal [facility] [place] Comment on above: xray result Start: 11-16-2022 End: 11-16-2022 Subsequent hospital visit by physician Xr [facility] [place] Work Phone: Radiology Comment on above: Rib [...] Chance dubon MD Work Phone: [facility] [place] Comment on above: Refill Request Start: 10-03-2022 Telephone encounter Chance hurtado MD Work Phone: [facility] [place] Comment on above: long term Plan of Care (continued) Start: 10-01-2022 Telephone encounter Chance hurtado MD Work Phone: [facility] [place] Comment on above: Home Health Update Start: 09-28-2022 Telephone encounter Chance hurtado MD Work Phone: [facility] [place] Comment on above: Patient Question Start: 09-25-2022 Telephone encounter Chance hurtado MD Work Phone: [facility] [place] Comment on above: Skillled Nursing Penny luation Start: 09-18-2022 Telephone encounter Malachi Thibodeaux aislinn AGENCY SALES MANAGEMENT ASSISTANT.HOME CARE ASSISTANT Work Phone: [facility] [place] Comment on above: Results Start: 09-14-2022 Telephone encounter Chance hurtado MD Work Phone: [facility] [place] Comment on above: Social Work Eval Ord er home health calling Patient Question Start: 09-12-2022 Telephone encounter Chance hurtado MD Work Phone: [facility] [place] Comment on above: PT Update OT Update Start: 09-08-2022 Non-patient / Non-visit Dr. Sonali Kolb Work Phone: [facility] Start: 09-07-2022 Non-patient / Non-visit Dr. Sonali Kolb Work Phone: [facility] Start: 09-07-2022 Telephone encounter Chance hurtado MD Work Phone: [facility] [place] Comment on above: Follow for [facility] Start: 09-07-2022 Non-patient / Non-visit Dr. Sonali Kolb Work Phone: [facility] Start: 09-06-2022 End: 09-08-2022 Evaluation and management of inpatient [facility]Progressive Care [facility] Start: 09-01-2022 End: 09-02-2022 Emergency department patient visit [facility]-Emergency Department Start: 08-07-2022 End: 08-07-2022 Subsequent hospital visit by physician Xr [facility] Work Phone: Radiology Comment on above: Acute cough [R05.1] Start: 05-31-2022 Telephone encounter Chance hurtado MD Work Phone: [facility] [place] Comment on above: Results Start: 05-27-2022 End: 05-27-2022 Emergency department patient visit [facility]-Emergency Department Start: 05-15-2022 Telephone encounter Chance hurtado MD Work Phone: [facility] [place] Comment on above: Results Start: 04-11-2022 End: 04-11-2022 Subsequent hospital visit by physician Bone Density [facility] Work Phone: Radiology Comment on above: Age-related osteopor osis without current pathological fracture [M81.0] Start: 04-02-2022 Telephone encounter Chance hurtado MD Work Phone: [facility] [place] Comment on above: Results Start: 03-30-2022 End: 03-30-2022 Subsequent hospital visit by physician Xr [facility] [place] Work Phone: Radiology Comment on above: Chronic [...] visit by physician Screen Mammo [facility] Mamm[facility] Comment on above: Encounter for screen ing mammogram for breast cancer [Z12.31] Start: 03-20-2022 End: 03-20-2022 Patient encounter procedure Essie Man APRN.HOME CARE ASSISTANT Work Phone: OB/Gynecology Comment on above: Encounter for gyneco logical examination (general) (routine) without abnormal findings (Primary Dx); Encounter for screening mammogram for breast cancer; Age-related osteoporosis without current pathological fracture Start: 03-20-2022 End: 03-20-2022 Patient encounter status Essie Man APRN.HOME CARE ASSISTANT Work Phone: OB/Gynecology Start: 02-01-2022 End: 02-01-2022 Patient encounter procedure Bailey Johnson APRN.HOME CARE ASSISTANT Work Phone: [place] [facility] Comment on above: Exposure to COVID-19 virus (Primary Dx) Start: 01-29-2022 End: 01-29-2022 Patient encounter procedure [facility] Work Phone: [facility] Comment on above: APPOINTMENT CANCELLE D (Primary Dx); Contact with and (suspected) exposure to covid-19 Start: 12-29-2021 End: 12-29-2021 Patient encounter procedure Jersey Stern DO Work Phone: [facility] [place] Comment on above: Closed nondisplaced fracture of neck of fifth metacarpal bone of left hand with routine healing, subsequent encounter (Primary Dx) Start: 12-29-2021 End: 12-29-2021 Subsequent hospital visit by physician Cate [facility] [place] Rai Work Phone: Radiology [...] hospital visit by physician Cate [facility] [place] Work Phone: Radiology Comment [...] spine lumbosac ral 2/3 views Malachi Vijaya AGENCY SALES MANAGEMENT ASSISTANT.HOME CARE ASSISTANT Work Phone: Start: 12-27-2023 Thyrotropin [Units/volume] in Serum or Plasma Thea Vail MD Work Phone: Start: 09-03-2023 Radex ribs uni w/posteroant ch minimum 3 views Talya Howell AGENCY SALES MANAGEMENT ASSISTANT.HOME CARE ASSISTANT Work Phone: Start: 08-29-2023 Follow-up visit Follow-up THEA TRAORE Start: 07-31-2023 Urnls dip stick/tabl et rgnt auto w/o microscopy Malachi Vijaya AGENCY SALES MANAGEMENT ASSISTANT.HOME CARE ASSISTANT Work Phone: Start: 03-25-2023 End: 03-25-2023 Mammography Essie Donovan AGENCY SALES MANAGEMENT ASSISTANT.C ADMINISTRATIVE ASSISTANT RECEPTIONIST Work Phone: Start: 11-16-2022 Radex ribs uni [...] exam ches t 2 views Kelsi Morgan AGENCY SALES MANAGEMENT ASSISTANT.HOME CARE ASSISTANT Work Phone: Start: 04-11-2022 Dxa bone density miguel dy 1/> sites axial skel Essie Man AGENCY SALES MANAGEMENT ASSISTANT.HOME CARE ASSISTANT Work Phone: Start: 03-30-2022 Radiologic exam ches t 2 views Chance Kolb MD Work Phone: Start: 03-20-2022 End: 03-20-2022 Mammography Bulk Order Provider Start: 12-29-2021 Radex hand minimum 3 views Jersey Stern DO Work Phone: Start: 11-25-2021 Radex hand minimum 3 views Azucena Khan AGENCY SALES MANAGEMENT ASSISTANT.HOME CARE ASSISTANT Work Phone: Start: 07-01-2020 Mammography Jersey Maurice [...] DTaP,Tdap,Td Vaccine (4 - Td or Tdap) [facility] Start: 04-29-2033 DTaP/Tdap/Td Vaccines (3 - Td or Tdap) DTaP/Tdap/Td Vaccines (3 - Td or Tdap) [facility] Start: 04-29-2033 Urine microalbumin profile [facility] Start: 05-21-2031 Urine microalbumin profile DTAP,TDAP,TD (2 - Td or Tdap) [facility] Start: 12-17-2029 Lipid panel Lipid Screening [facility] Start: 04-29-2028 Diabetes Screening Diabetes Screening [facility] Start: 12-18-2027 Diabetes Screening Diabetes Screening [facility] Start: 11-17-2027 Lipid 1996 panel - Serum or Plasma Lipid Screening [facility] Start: 11-17-2027 Lipid panel Lipid Screening [facility] Start: 11-17-2027 LIPID SCREEN LIPID SCREEN [facility] Start: 12-26-2026 Diabetes Screening Diabetes Screening [facility] Start: 08-17-2026 Screening for osteoporosis Bone Density Screening [facility] Start: 05-10-2026 End: 05-10-2026 Patient encounter procedure 05/10/2026 9:00 AM EDT Office Visit [facility] [place] [address] [place] [address] Nguyễn Stringer APRN.DESK CLERKS SUPERVISOR [address] [place] [address] Medicare Wellness [facility] [place] Comment on above: Medicare Wellness Start: 05-04-2026 Annual PCP Team Chronic Disease Visit Annual PCP Team Chronic Disease Visit [facility] Start: 05-04-2026 Medicare Annual Wellness Visit Medicare Annual Wellness Visit [facility] Start: 02-24-2026 LIPID SCREEN LIPID SCREEN [facility] Start: 01-29-2026 Annual PCP Team Chronic Disease Visit Annual PCP Team Chronic Disease Visit [facility] Start: 11-16-2025 DIABETES SCREEN DIABETES SCREEN [facility] Start: 11-16-2025 Diabetes Screening Diabetes Screening [facility] Start: 11-10-2025 End: 11-10-2025 Patient encounter procedure 11/10/2025 11:00 AM EST Office Visit [facility] [place] [address] [place] [address] Chance Kolb MD [address] [place] [id number] 6 month f/u [facility] [place] Comment on above: 6 month f/u Start: 11-04-2025 End: 02-03-2026 25-hydroxyvitamin D3 [Mass/volume] in Serum or Plasma VITAMIN D 25 HYDROXY Lab Routine Medicare annual wellness visit, subsequent Osteoporosis, unspecified osteoporosis type, unspecified pathological fracture presence Crohn's disease without complication, unspecified gastrointestinal tract location (HCC) Expected: 11/04/2025 (Approximate), Expires: 02/03/2026 [facility] Comment on above: Expected: 11/04/2025 (Approximate), Expi res: 02/03/2026 Start: 11-04-2025 End: 02-03-2026 CBC W Auto Differential panel - Blood COMPLETE BLOOD COUNT AND DIFFERENTIAL Lab Routine Medicare annual wellness visit, subsequent Crohn's disease without complication, unspecified gastrointestinal tract location (HCC) Expected: 11/04/2025 (Approximate), Expires: 02/03/2026 [facility] Comment on above: Expected: 11/04/2025 (Approximate), Expi res: 02/03/2026 Start: 11-04-2025 End: 02-03-2026 Comprehensive metabolic 2000 panel - Serum or Plasma COMPREHENSIVE METABOLIC PANEL Lab Routine Medicare annual wellness visit, subsequent Crohn's disease without complication, unspecified gastrointestinal tract location (HCC) Expected: 11/04/2025 (Approximate), Expires: 02/03/2026 [facility] Comment on above: Expected: 11/04/2025 (Approximate), Expi res: 02/03/2026 Start: 11-04-2025 End: 02-03-2026 Hemoglobin A1c in Blood HEMOGLOBIN A1C Lab Routine Medicare annual wellness visit, subsequent Crohn's disease without complication, unspecified gastrointestinal tract location (HCC) Other abnormal glucose Expected: 11/04/2025 (Approximate), Expires: 02/03/2026 [facility] Comment on above: Expected: 11/04/2025 (Approximate), Expi res: 02/03/2026 Start: 09-09-2025 Screening for malignant neoplasm of colon Colorectal Cancer Screening [facility] Comment on above: Postponed from 1994 (Postponed To Appropriate Date) Start: 06-24-2025 Annual PCP Team Chronic Disease Visit Annual PCP Team Chronic Disease Visit [facility] Start: 06-21-2025 End: 06-21-2025 Patient encounter procedure 06/21/2025 1:00 PM EDT Office Visit Endocrinology [address] [place] [phone] Mirtha Ledesma MD [address] [facility] [place] [address] Osteoporosis, unspecified osteoporosis type, unspecified pathological fracture presence [M81.0] Endocrinology Comment on above: Osteoporosis, unspecified osteoporosis t ype, unspecified pathological fracture presence [M81.0] Start: 05-13-2025 End: 05-13-2025 Patient encounter procedure 05/13/2025 2:50 PM EDT Appointment Mammogram [address] [place] [id number] Encounter for screening mammogram for malignant neoplasm of breast [Z12.31] Mammogram Comment on above: Encounter for screening mammogram for ma lignant neoplasm of breast [Z12.31] Start: 05-10-2025 Influenza vaccination Influenza Vaccine (#1) [place] [facility] Start: 05-04-2025 End: 05-04-2025 Patient encounter procedure 05/04/2025 3:20 PM EDT Office Visit [facility] [place] [address] [place], [place] [phone] Chance Kolb MD [address] [address] 3 mo f/u [facility] [place] Comment on above: 3 mo f/u Start: 03-30-2025 DIABETES SCREEN DIABETES SCREEN [facility] Start: 03-27-2025 Screening for malignant neoplasm of breast Mammogram Screening [facility] Start: 03-22-2025 End: 06-21-2025 25-hydroxyvitamin D3 [Mass/volume] in Serum or Plasma VITAMIN D 25 HYDROXY Lab Routine Compression fracture of L4 vertebra with routine healing, subsequent encounter Age-related osteoporosis without current pathological fracture Expected: 03/22/2025, Expires: 06/21/2025 [facility] Work Phone: Comment on above: Expected: 03/22/2025, Expires: Start: 03-18-2025 [facility] Start: 03-13-2025 [facility] Start: 03-13-2025 Smpl repair scalp/neck/ax/genit/trun k 2.6-7.5cm RPR S/N/AX/GEN/TRNK2.6-7.5CM [facility] Start: 02-07-2025 Screening for malignant neoplasm of colon [facility] Start: 01-01-2025 [facility] Start: 01-01-2025 Simple rpr scalp/neck/ax/genit/trun k 7.6-12.5cm RPR S/N/AX/GEN/TRK7.6-12.5CM [facility] Start: 12-30-2024 Annual PCP Team Chronic Disease Visit Annual PCP Team Chronic Disease Visit [facility] Start: 12-26-2024 Thyroid stimulating hormone measurement TSH Level [facility] Start: 12-25-2024 End: 12-25-2024 Patient encounter procedure 12/25/2024 11:00 AM EDT Office Visit [facility] [place] [address] [place] [id number] Malachi Lilly APRN.HOME CARE ASSISTANT [address] [place], [place] [phone] 6 month follow up [facility] [place] Comment on above: 6 month follow up Start: 11-22-2024 End: 02-21-2025 25-hydroxyvitamin D3 [Mass/volume] in Serum or Plasma VITAMIN D 25 HYDROXY Lab Routine Age-related osteoporosis without current pathological fracture Vitamin D deficiency Encounter for long-term current use of medication Expected: 11/22/2024 (Approximate), Expires: 02/21/2025 [facility] Comment on above: Expected: 11/22/2024 (Approximate), Expi res: 02/21/2025 Start: 11-22-2024 End: 02-21-2025 CBC panel - Blood by Automated count COMPLETE BLOOD COUNT Lab Routine Age-related osteoporosis without current pathological fracture Encounter for long-term current use of medication Expected: 11/22/2024 (Approximate), Expires: 02/21/2025 [facility] Comment on above: Expected: 11/22/2024 (Approximate), Expi res: 02/21/2025 Start: 11-22-2024 End: 02-21-2025 Comprehensive metabolic 2000 panel - Serum or Plasma COMPREHENSIVE METABOLIC PANEL Lab Routine Age-related osteoporosis without current pathological fracture Encounter for long-term current use of medication Expected: 11/22/2024 (Approximate), Expires: 02/21/2025 [facility] Comment on above: Expected: 11/22/2024 (Approximate), Expi res: 02/21/2025 Start: 11-22-2024 End: 02-21-2025 Lipid 1996 panel - Serum or Plasma LIPID PANEL BASIC Lab Routine Age-related osteoporosis without current pathological fracture Hypercholesteremia Encounter for long-term current use of medication Expected: 11/22/2024 (Approximate), Expires: 02/21/2025 [facility] Comment on above: Expected: 11/22/2024 (Approximate), Expi res: 02/21/2025 Start: 11-22-2024 End: 02-21-2025 Magnesium [Mass/volume] in Serum or Plasma MAGNESIUM Lab Routine Age-related osteoporosis without current pathological fracture Encounter for long-term current use of medication Expected: 11/22/2024 (Approximate), Expires: 02/21/2025 [facility] Comment on above: Expected: 11/22/2024 (Approximate), Expi res: 02/21/2025 Start: 11-22-2024 End: 02-21-2025 Thyrotropin [Units/volume] in Serum or Plasma THYROID STIMULATING HORMONE Lab Routine Age-related osteoporosis without current pathological fracture Acquired hypothyroidism Encounter for long-term current use of medication Expected: 11/22/2024 (Approximate), Expires: 02/21/2025 [facility] Comment on above: Expected: 11/22/2024 (Approximate), Expi res: 02/21/2025 Start: 11-22-2024 End: 02-21-2025 Thyroxine (T4) free [Mass/volume] in Serum or Plasma T4 FREE/FREE THYROXINE Lab Routine Age-related osteoporosis without current pathological fracture Acquired hypothyroidism Encounter for long-term current use of medication Expected: 11/22/2024 (Approximate), Expires: 02/21/2025 [facility] Comment on above: Expected: 11/22/2024 (Approximate), Expi res: 02/21/2025 Start: 11-22-2024 End: 02-21-2025 Triiodothyronine (T3) Free [Mass/volume] in Serum or Plasma T3, FREE Lab Routine Age-related osteoporosis without current pathological fracture Acquired hypothyroidism Encounter for long-term current use of medication Expected: 11/22/2024 (Approximate), Expires: 02/21/2025 [facility] Comment on above: Expected: 11/22/2024 (Approximate), Expi res: 02/21/2025 Start: 2024 RSV Vaccine (1 - 1-dose 75+ series) RSV Vaccine (1 - 1-dose 75+ series) [facility] Start: 09-20-2024 DIABETES SCREEN DIABETES SCREEN [facility] Start: 09-09-2024 Advance Directive Discussion Advance Directive Discussion [facility] Start: 09-04-2024 End: 09-04-2024 ambulatory 09/04/2024 12:30 PM EST OT/PT/Speech Visit [facility] [place] [address] [place] [address] Bailey Madrigal, PT R26.81 (ICD-10-CM) - Gait instability [facility] Comment on above: R26.81 (ICD-10-CM) - Gait instability Start: 08-28-2024 End: 08-28-2024 ambulatory 08/28/2024 12:30 PM EST OT/PT/Speech Visit [facility] [address] [place] [address] Bailey Madrigal PT R26.81 (ICD-10-CM) - Gait instability [facility] Comment on above: R26.81 (ICD-10-CM) - Gait instability Start: 08-26-2024 End: 11-25-2024 Urinalysis complete panel - Urine URINALYSIS WITH MICROSCOPIC, REFLEX CULTURE Lab Routine Urinary tract infection with hematuria, site unspecified Expected: 08/26/2024 (Approximate), Expires: 11/25/2024 [facility] Work Phone: Comment on above: Expected: 08/26/2024 (Approximate), Expi res: 11/25/2024 Start: 08-21-2024 End: 08-21-2024 ambulatory 08/21/2024 12:30 PM EST OT/PT/Speech Visit [facility] [address] [place] [address] Bailey Madrigal, PT R26.81 (ICD-10-CM) - Gait instability [facility] Comment on above: R26.81 (ICD-10-CM) - Gait instability Start: 08-17-2024 End: 08-17-2024 Patient encounter procedure 08/17/2024 11:15 AM EST Appointment Radiology [address] [place] [id number] Asymptomatic postmenopausal status [Z78.0] Radiology Comment on above: Asymptomatic postmenopausal status [Z78. 0] Start: 08-14-2024 End: 08-14-2024 ambulatory 08/14/2024 12:30 PM EST OT/PT/Speech Visit [facility] [address] [place] [address] Bailey Madrigal PT R26.81 (ICD-10-CM) - Gait instability [facility] Comment on above: R26.81 (ICD-10-CM) - Gait instability Start: 08-07-2024 End: 08-07-2024 ambulatory 08/07/2024 12:30 PM EST OT/PT/Speech Visit [facility] [address] [place] [address] Bailey Madrigal, PT R26.81 (ICD-10-CM) - Gait instability [facility] Comment on above: R26.81 (ICD-10-CM) - Gait instability Start: 07-31-2024 Annual PCP Team Chronic Disease Visit Annual PCP Team Chronic Disease Visit [facility] Start: 07-27-2024 End: 07-27-2024 ambulatory 07/27/2024 3:30 PM EST OT/PT/Speech Visit [facility] [address] [place] [address] Bailey Madrigal, PT R26.81 (ICD-10-CM) - Gait instability [facility] Comment on above: R26.81 (ICD-10-CM) - Gait instability Start: 07-27-2024 End: 07-27-2024 Patient encounter procedure 07/27/2024 12:20 PM EST Office Visit [facility] [place] [address] [facility] [place] [facility] [place] [address] Nguyễn Stringer APRN.DESK CLERKS SUPERVISOR [address] [facility] [place] [address] express care follow up/uti [facility] [place] Comment on above: express care follow up/uti Start: 06-24-2024 End: 06-24-2024 Patient encounter procedure 06/24/2024 3:00 PM EDT [facility] Visit [facility] [place] [address] [facility] [place] [address] Chance Kolb MD [address] [place] [address] 6 month follow up [facility] [place] Comment on above: 6 month follow up Start: 06-21-2024 Annual PCP Team Chronic Disease Visit Annual PCP Team Chronic Disease Visit [facility] Start: 05-10-2024 Covid-19 Vaccine ( season) Covid-19 Vaccine ( season) [facility] Start: 05-10-2024 Covid-19 Vaccine ( season) Covid-19 Vaccine () [facility] Start: 05-10-2024 Influenza vaccination Influenza Vaccine (#1) [facility] Start: 05-06-2024 ANNUAL PCP TEAM CHRONIC DISEASE VISIT ANNUAL PCP TEAM CHRONIC DISEASE VISIT [facility] Start: 04-11-2024 Screening for osteoporosis Bone Density Screening [facility] Start: 03-27-2024 End: 03-27-2024 Patient encounter procedure 03/27/2024 10:50 AM EDT Appointment [facility]ammogram [address] [facility] [place], [place] [phone] Encounter for screening mammogram for breast cancer [Z12.31] Mammogram Comment on above: Encounter for screening mammogram for br east cancer [Z12.31] Start: 03-26-2024 ANNUAL PCP TEAM CHRONIC DISEASE VISIT ANNUAL PCP TEAM CHRONIC DISEASE VISIT [facility] Start: 03-25-2024 Mammography [facility] Start: 03-25-2024 Screening for malignant neoplasm of breast Mammogram Screening [facility] Start: 01-09-2024 End: 01-09-2024 Patient encounter procedure 01/09/2024 10:30 AM EDT Office Visit [facility] [address] [place] [address] [place] [phone] Thea Vail MD [address] [facility] [address] [place] [address] [facility] Start: 11-17-2023 ANNUAL PCP TEAM CHRONIC DISEASE VISIT ANNUAL PCP TEAM CHRONIC DISEASE VISIT [facility] Start: 08-29-2023 End: 08-29-2023 Patient encounter procedure 08/29/2023 10:15 AM EST Office Visit [facility] [address] [place] [address] [place] [phone] Thea Vail MD [address] [facility] [address] [place], [place] [id number] [facility] Start: 08-12-2023 End: 08-12-2023 Patient encounter procedure 08/12/2023 2:15 PM EST Office Visit [facility] [address] [facility] [address] [place] [phone] Thea Vail MD [address] [facility] [address] [place] [address] [facility] Start: 08-12-2023 End: 08-12-2024 MR Hand - right WO contrast MR hand right wo IV contrast Imaging Routine Mass of finger of right hand Rupture of flexor pollicis longus muscle Expected: 08/12/2023, Expires: 08/12/2024 [facility] Work Phone: Comment on above: Expected: 08/12/2023, Expires: 4 Start: 08-12-2023 End: 08-12-2024 MR Wrist - right WO contrast MR wrist right wo IV contrast Imaging Routine Mass of finger of right hand Rupture of flexor pollicis longus muscle Expected: 08/12/2023, Expires: 08/12/2024 [facility] Comment on above: Expected: 08/12/2023, Expires: 4 Start: 08-07-2023 End: 08-07-2024 XR Hand - right 3 Views XR hand 3+ views right Imaging Routine Right hand pain Expected: 08/07/2023, Expires: 08/07/2024 [facility] Work Phone: Comment on above: Expected: 08/07/2023, Expires: 4 Start: 05-10-2023 Covid-19 Vaccine ( season) Covid-19 Vaccine ( season) [facility] Start: 05-10-2023 Influenza vaccination INFLUENZA (#1) [facility] Start: 03-30-2023 ANNUAL PCP TEAM CHRONIC DISEASE VISIT ANNUAL PCP TEAM CHRONIC DISEASE VISIT [facility] Start: 03-20-2023 Mammography MAMMOGRAM [facility] Start: 02-07-2023 [facility] [facility] Start: 02-07-2023 COLORECTAL CANCER SCREENING COLORECTAL CANCER SCREENING [facility] Start: 02-07-2023 Screening for malignant neoplasm of colon [facility] Start: 10-17-2022 ANNUAL PCP TEAM CHRONIC DISEASE VISIT ANNUAL PCP TEAM CHRONIC DISEASE VISIT [facility] Start: 10-17-2022 SHINGRIX VACCINE (2 of 3) SHINGRIX VACCINE (2 of 3) [facility] Comment on above: Postponed from 06/19/2016 (Declined at t his time) Start: 10-17-2022 Urine microalbumin profile DTAP,TDAP,TD (1 - Tdap) [facility] Comment on above: Postponed from 04/27/2016 (Declined at t his time) Start: 09-29-2022 End: 11-29-2022 Urinalysis complete panel - Urine URINALYSIS, WITH MICROSCOPIC Lab Routine Acute cystitis with hematuria Expected: 09/29/2022, Expires: 11/29/2022 [facility] Work Phone: Comment on above: Expected: 09/29/2022, Expires: 3 Start: 09-15-2022 End: 11-15-2022 Urinalysis complete panel - Urine URINALYSIS, WITH MICROSCOPIC Lab Routine Urinary tract infection without hematuria, site unspecified Expected: 09/15/2022, Expires: 11/15/2022 [facility] Work Phone: Comment on above: Expected: 09/15/2022, Expires: 3 Start: 09-09-2022 ADVANCE DIRECTIVE DISCUSSION ADVANCE DIRECTIVE DISCUSSION [facility] Start: 09-08-2022 Patient discharge [facility] Work Phone: Start: 09-07-2022 Referral to service [facility] Work Phone: Start: 09-07-2022 Following clinical pathway protocol [facility] Work Phone: Start: 09-07-2022 Aspiration precautions [facility] Work Phone: Start: 09-07-2022 Assessment of risk of venous thromboembolism [facility] Work Phone: Start: 09-07-2022 Cardiac monitoring [facility] Work Phone: Start: 09-07-2022 Catheterization of vein [facility] Work Phone: Start: 09-07-2022 Continuous pulse oximetry [facility] Work Phone: Start: 09-07-2022 Elevation of head of bed [facility] Work Phone: Start: 09-07-2022 Exercises [facility] Work Phone: Start: 09-07-2022 Fall prevention [facility] Work Phone: Start: 09-07-2022 Implementation of planned interventions [facility] Work Phone: Start: 09-07-2022 Inhalation therapy procedure [facility] Work Phone: Start: 09-07-2022 Insertion of catheter into peripheral vein [facility] Work Phone: Start: 09-07-2022 Introduction of urinary catheter [facility] Work Phone: Start: 09-07-2022 Notification of physician [facility] Work Phone: Start: 09-07-2022 Oxygen therapy [facility] Work Phone: Start: 09-07-2022 End: 09-07-2022 Patient referral to dietitian [facility] Work Phone: Start: 09-07-2022 Providing care according to standard [facility] Work Phone: Start: 09-07-2022 Provision of activity privileges [facility] Work Phone: Start: 09-07-2022 Referral to occupational therapist [facility] Work Phone: Start: 09-07-2022 Referral to service [facility] Work Phone: Start: 09-07-2022 Speech therapy assessment [facility] Work Phone: Start: 09-07-2022 Tobacco use cessation education [facility] Work Phone: Start: 09-07-2022 [facility] Work Phone: Start: 09-06-2022 Verification routine [facility] Work Phone: Start: 09-06-2022 Admission procedure [facility] Work Phone: Start: 09-06-2022 [facility] Work Phone: Start: 09-01-2022 Suicide precautions [facility] Work Phone: Start: 05-10-2022 Influenza vaccination INFLUENZA (#1) [facility] Start: 02-01-2022 End: 02-11-2022 SARS-CoV-2 (COVID-19) RNA [Presence] in Respiratory specimen by FABRIZIO with probe detection ASYMPTOMATIC ELECTIVE COVID-19 Microbiology Routine Exposure to COVID-19 virus Expected: 02/01/2022, Expires: 02/11/2022 [facility] Work Phone: Comment on above: Expected: 02/01/2022, Expires: 2 Start: 09-09-2021 ADVANCE DIRECTIVE DISCUSSION ADVANCE DIRECTIVE DISCUSSION [facility] Start: 07-01-2021 Mammography MAMMOGRAM [facility] Start: 05-11-2021 COVID-19 VACCINE (3 - Booster for Pfizer series) COVID-19 VACCINE (3 - Booster for Pfizer series) [facility] Start: 02-03-2021 COVID-19 VACCINE (3 - Booster for Pfizer series) COVID-19 VACCINE (3 - Booster for Pfizer series) [facility] Start: 02-03-2021 COVID-19 VACCINE (3 - Pfizer series) COVID-19 VACCINE (3 - Pfizer series) [facility] Start: 01-07-2017 Medicare Annual Wellness Visit Medicare Annual Wellness Visit [facility] Start: 06-19-2016 SHINGRIX VACCINE (2 of 3) SHINGRIX VACCINE (2 of 3) [facility] Start: 06-19-2016 Zoster Vaccines (2 of 3) Zoster Vaccines (2 of 3) [facility] Start: 05-22-2016 MMR (1 of 2 - Risk 2-dose series) MMR (1 of 2 - Risk 2-dose series) [facility] Start: 05-22-2016 MMR Vaccine (1 of 2 - Risk 2-dose series) MMR Vaccine (1 of 2 - Risk 2-dose series) [facility] Start: 04-27-2016 Urine microalbumin profile DTAP,TDAP,TD (1 - Tdap) [facility] Start: 2009 HEPATITIS B (1 of 3 - Risk 3-dose series) HEPATITIS B (1 of 3 - Risk 3-dose series) [facility] Start: 2009 Hepatitis B Vaccine (1 of 3 - Risk 3-dose series) Hepatitis B Vaccine (1 of 3 - Risk 3-dose series) [facility] Start: 2009 RSV Immunization aged 60 or older (1 - 1-dose 60+ series) RSV Immunization aged 60 or older (1 - 1-dose 60+ series) [facility] Start: 2009 RSV Vaccine (1 - 1-dose 60+ series) RSV Vaccine (1 - 1-dose 60+ series) [facility] Start: 1994 COLOGUARD (FIT-DNA) COLOGUARD (FIT-DNA) [facility] Start: [address] COLONOGRAPHY [facility] Start: 1994 FECAL OCCULT BLOOD FECAL OCCULT BLOOD [facility] Start: 1994 Screening for malignant neoplasm of colon [facility] Start: 1994 SIGMOIDOSCOPY SIGMOIDOSCOPY [facility] Start: 1989 Screening for malignant neoplasm of breast Mammogram [facility] Start: 1968 HEPATITIS A (1 of 2 - Risk 2-dose series) HEPATITIS A (1 of 2 - Risk 2-dose series) [facility] Start: 1968 Hepatitis A Vaccine (1 of 2 - Risk 2-dose series) Hepatitis A Vaccine (1 of 2 - Risk 2-dose series) [facility] Start: 1968 HEPATITIS B (1 of 3 - Risk 3-dose series) HEPATITIS B (1 of 3 - Risk 3-dose series) [facility] Start: 1967 Hepatitis C screening Hepatitis C Screening [facility] Start: 1961 Depression Monitoring Depression Monitoring [facility] Start: 1961 Depression Screening Depression Screening [facility] Start: 1959 Meningococcal B Vaccine: Consider Based On Risk (1 of 4 - Increased Risk) Meningococcal B Vaccine: Consider Based On Risk (1 of 4 - Increased Risk) [facility] Start: 1959 MENINGOCOCCAL B: Consider based on risk (1 of 4 - Increased Risk Bexsero 2-dose series) MENINGOCOCCAL B: Consider based on risk (1 of 4 - Increased Risk Bexsero 2-dose series) [facility] Start: 1959 MENINGOCOCCAL B: Consider based on risk (1 of 4 - Increased Risk) MENINGOCOCCAL B: Consider based on risk (1 of 4 - Increased Risk) [facility] Start: 1950 HEPATITIS A (1 of 2 - Risk 2-dose series) HEPATITIS A (1 of 2 - Risk 2-dose series) [facility] Start: 1949 Medicare Annual Wellness (AWV) Medicare Annual Wellness (AWV) [facility] Start: 1949 Screening for malignant neoplasm of colon [facility] Start: 1949 Screening for osteoporosis Bone Density Scan [facility] Start: 1949 Thyroid stimulating hormone measurement TSH Level [facility] End: 06-20-2024 25-hydroxyvitamin D3 [Mass/volume] in Serum or Plasma VITAMIN D 25 HYDROXY Lab Routine Encounter for long-term current use of medication Vitamin D deficiency Every 3 months for 4 Occurrences starting 06/21/2023 until 06/20/2024 [facility] Work Phone: Comment on above: Every 3 months for 4 Occurrences startin g 06/21/2023 until 06/20/2024 Bacteria identified in Urine by Culture Urine Culture [facility] Work Phone: Bacteria identified in Urine by Culture URINE CULTURE Microbiology Routine Acute cystitis with hematuria Ordered: 09/28/2022 [facility] Work Phone: Comment on above: Ordered: 09/28/2022 Bacteria identified in Urine by Culture URINE CULTURE Microbiology Routine Urinary tract infection without hematuria, site unspecified 07/31/2023 3:24 PM EST [facility] Work Phone: Bacteria identified in Urine by Culture [facility] Work Phone: Comment on above: Ordered: 07/25/2024 End: 07-24-2025 BD DXA TRABECULAR BONE SCORE (TBS) BD DXA TRABECULAR BONE SCORE (TBS) Radiology Routine Asymptomatic postmenopausal status 1 Occurrences starting 06/24/2024 until 07/24/2025 [facility] Comment on above: 1 Occurrences starting 06/24/2024 until 07/24/2025 End: 06-20-2024 CBC panel - Blood by Automated count CBC Lab Routine Encounter for long-term current use of medication Every 3 months for 4 Occurrences starting 06/21/2023 until 06/20/2024 [facility] Work Phone: Comment on above: Every 3 months for 4 Occurrences startin g 06/21/2023 until 06/20/2024 End: 06-20-2024 Comprehensive metabolic 2000 panel - Serum or Plasma COMP METABOLIC PANEL Lab Routine Encounter for long-term current use of medication Every 3 months for 4 Occurrences starting 06/21/2023 until 06/20/2024 [facility] Work Phone: Comment on above: Every 3 months for 4 Occurrences startin g 06/21/2023 until 06/20/2024 End: 06-03-2026 DBT Breast - bilateral screening OZIEL SCREENING W GABRIEL Radiology Routine Encounter for screening mammogram for malignant neoplasm of breast 1 Occurrences starting 05/04/2025 until 06/03/2026 [facility] Work Phone: Comment on above: 1 Occurrences starting 05/04/2025 until 06/03/2026 End: 04-19-2023 Dxa bone density study 1/> sites axial skel DXA-AXIAL SKELETON Radiology Routine Age-related osteoporosis without current pathological fracture 1 Occurrences starting 03/20/2022 until 04/19/2023 [facility] Work Phone: Comment on above: 1 Occurrences starting 03/20/2022 until 04/19/2023 End: 07-24-2025 DXA Skeletal system.axial Views for bone density DXA-AXIAL SKELETON Radiology Routine Asymptomatic postmenopausal status 1 Occurrences starting 06/24/2024 until 07/24/2025 [facility] Work Phone: Comment on above: 1 Occurrences starting 06/24/2024 until 07/24/2025 End: 06-20-2024 Magnesium [Mass/volume] in Serum or Plasma MAGNESIUM BLD Lab Routine Encounter for long-term current use of medication Every 3 months for 4 Occurrences starting 06/21/2023 until 06/20/2024 [facility] Work Phone: Comment on above: Every 3 months for 4 Occurrences startin g 06/21/2023 until 06/20/2024 End: 04-23-2024 OZIEL SCREENING OZIEL SCREENING Radiology Routine Encounter for screening mammogram for breast cancer 1 Occurrences starting 03/25/2023 until 04/23/2024 [facility] Work Phone: Comment on above: 1 Occurrences starting 03/25/2023 until 04/23/2024 End: 01-29-2025 MG Breast Screening OZIEL SCREENING Radiology Routine Encounter for screening mammogram for breast cancer 1 Occurrences starting 12/31/2023 until 01/29/2025 [facility] Comment on above: 1 Occurrences starting 12/31/2023 until 01/29/2025 MG Breast Screening OZIEL SCREENIN G Radiology Routine Encounter for screening mammogram for breast cancer 03/27/2024 10:26 AM EDT [facility] Work Phone: End: 05-24-2025 MG Breast Screening [facility] Work Phone: Comment on above: ONCE for 1 Occurrences starting 05/24/20 until 05/24/2025 End: 08-26-2023 MR [facility] - [facility] Work [facility]: Comment on above: Once for 1 Occurrences starting 08/26/20 until 08/26/2023 End: 08-26-2023 MR Wrist - right WO [facility] Work Phone: Comment on above: Once for 1 Occurrences starting 08/26/20 until 08/26/2023 OUTSIDE PROCEDURE SCAN OUTSIDE P ROCEDURE SCAN Procedures Ordered: 08/23/2023 [facility] Comment on above: Ordered: 08/23/2023 Patient Education [facility] Work Phone: Patient referral [facility] Work Phone: End: 04-19-2023 Screening mammography bi 2-view breast inc cad OZIEL SCREENING Radiology Routine Encounter for screening mammogram for breast cancer 1 Occurrences starting 03/20/2022 until 04/19/2023 [facility] Work Phone: Comment on above: 1 Occurrences starting 03/20/2022 until 04/19/2023 End: 06-20-2024 Thyrotropin [Units/volume] in Serum or Plasma TSH BLD Lab Routine Acquired hypothyroidism Encounter for long-term current use of medication Every 3 months for 4 Occurrences starting 06/21/2023 until 06/20/2024 [facility] Work Phone: Comment on above: Every 3 months for 4 Occurrences startin g 06/21/2023 until 06/20/2024 End: 06-20-2024 Thyroxine (T4) free [Mass/volume] in Serum or Plasma T4 FREE/FREE THYROX Lab Routine Acquired hypothyroidism Encounter for long-term current use of medication Every 3 months for 4 Occurrences starting 06/21/2023 until 06/20/2024 [facility] Work Phone: Comment on above: Every 3 months for 4 Occurrences startin g 06/21/2023 until 06/20/2024 End: 06-20-2024 Triiodothyronine (T3) Free [Mass/volume] in Serum or Plasma T3 FREE BLD Lab Routine Acquired hypothyroidism Encounter for long-term current use of medication Every 3 months for 4 Occurrences starting 06/21/2023 until 06/20/2024 [facility] Work Phone: Comment on above: Every 3 months for 4 Occurrences startin g 06/21/2023 until 06/20/2024 UA DIP B/O UA DIP B/O Lab R outine Urinary tract infection without hematuria, site unspecified Ordered: 07/31/2023 [facility] Work Phone: Comment on above: Ordered: 07/31/2023 End: 01-26-2023 XR HAND GENERAL 3V PA/LAT/OBL LEFT [facility] Work Phone: Comment on above: 1 Occurrences starting 12/27/2021 until 01/26/2023 XR HAND GENERAL 3V PA/LAT/OBL LEFT XR HAND GENERAL 3V PA/LAT/OBL LEFT Radiology Routine Closed nondisplaced fracture of neck of fifth metacarpal bone of left hand, initial encounter 12/29/2021 1:15 PM EDT [facility] Work Phone: End: 01-29-2025 XR Lumbar spine 3 Views XR LUMBAR GENERAL 3V AP/LAT/L5-S1 Radiology Routine Acute bilateral low back pain without sciatica 1 Occurrences starting 12/31/2023 until 01/29/2025 [facility] Work Phone: Comment on above: 1 Occurrences starting 12/31/2023 until 01/29/2025 XR Lumbar spine 3 Views XR LUMBA R GENERAL 3V AP/LAT/L5-S1 Radiology Routine Acute bilateral low back pain without sciatica 12/31/2023 3:32 PM EDT [facility] Immunizations Immunization Date Immunization Notes Care Provider Fa umm 01-01-2025 tetanus toxoid, redu dory diphtheria toxoid, and acellular pertussis vaccine, adsorbed Dr. Chance Kolb MD Work Phone: [facility] 06-24-2024 influenza, high dose seasonal, preservative-free Bailey Mahmood'Edison PT [facility] 06-24-2024 influenza virus vacc ine, unspecified formulation Nguyễn Stringer AGENCY SALES MANAGEMENT ASSISTANT.DESK CLERKS SUPERVISOR Work Phone: [facility] 06-18-2023 influenza, high dose seasonal, preservative-free Chance Kolb MD Work Phone: [facility] Work Phone: 06-18-2023 influenza virus vacc ine, unspecified formulation Screen Wstr [facility] 06-06-2023 influenza (HD-IIV4) vaccine, age 65+ yr, high dose, quadrivalent, PF (FLUZONE HIGH-DOSE) Malachi Lilly AGENCY SALES MANAGEMENT ASSISTANT.HOME CARE ASSISTANT Work Phone: [facility] 04-29-2023 tetanus toxoid, redu dory diphtheria toxoid, and acellular pertussis vaccine, adsorbed [facility] 05-30-2022 influenza (aIIV4) vaccine, age 65+ yr, quadrivalent, PF (FLUAD QUAD) Chance Kolb MD Work Phone: [facility] 06-01-2021 influenza (aIIV4) vaccine, age 65+ yr, quadrivalent, PF (FLUAD QUAD) Chance Kolb MD Work Phone: [facility] 06-01-2021 influenza, high dose seasonal, preservative-free Jersey Stern V, DO Work Phone: [facility] Work Phone: 05-21-2021 tetanus toxoid, redu dory diphtheria toxoid, and acellular pertussis vaccine, adsorbed [facility] 12-09-2020 COVID-19 vaccine, ag e 12+ yr (PFIZER-BIONTECH - PURPLE TOP) Jersey Stern V, DO Work Phone: [facility] Work Phone: 11-17-2020 COVID-19 vaccine, ag e 12+ yr ([employer]-BIONTECH - PURPLE TOP) Jersey Stern V, DO Work Phone: [facility] Work Phone: 06-10-2020 influenza (aIIV4) vaccine, age 65+ yr, quadrivalent, PF (FLUAD QUAD) Chance Kolb MD Work Phone: [facility] 06-10-2020 influenza, seasonal, injectable Jersey Stern V, DO Work Phone: [facility] 05-21-2019 Seasonal trivalent influenza vaccine, adjuvanted, preservative free Jersey Stern V, DO Work Phone: [facility] 05-18-2018 pneumococcal conjuga te vaccine, 13 valent Jersey Stern V, DO Work Phone: [facility] 05-18-2018 Seasonal trivalent influenza vaccine, adjuvanted, preservative free Jersey Stern V, DO Work Phone: [facility] 06-17-2017 influenza, high dose seasonal, preservative-free Jersey Stern V, DO Work Phone: [facility] 06-11-2016 influenza, high dose seasonal, preservative-free Jersey Stern V, DO Work Phone: [facility] 06-09-2016 influenza (HD-IIV4) vaccine, age 65+ yr, high dose, quadrivalent, PF (FLUZONE HIGH-DOSE) Chance Kolb MD Work Phone: [facility] 04-26-2016 TD(adult) unspecifie d formulation Thea Vail MD Work Phone: [facility] 04-26-2016 tetanus and diphther ia toxoids, adsorbed, preservative free, for adult use (2 Lf of tetanus toxoid and 2 Lf of diphtheria toxoid) Jersey Stern V, DO Work Phone: [facility] 04-24-2016 pneumococcal polysaccharide vaccine, 23 valent Jersey Stern V, DO Work Phone: [facility] 04-24-2016 zoster vaccine, live Jersey Stern V, DO Work Phone: [facility] 04-16-2016 TD(adult) unspecifie d formulation Chance Kolb MD Work Phone: [facility] 10-24-2015 pneumococcal conjuga te vaccine, 13 valent Jersey Stern V, DO Work Phone: [facility] 06-30-2014 influenza virus vacc ine, unspecified formulation Jersey Stern V, DO Work Phone: [facility] 06-10-2013 influenza virus vacc ine, unspecified formulation Jersey Stern V, DO Work Phone: [facility] Work Phone: 08-01-2010 pneumococcal polysaccharide vaccine, 23 valent Jersey Stern V, DO Work Phone: [facility] 06-28-2010 influenza virus vacc ine, unspecified formulation Jersey Jarred V, DO Work Phone: [facility] Work Phone: 07-14-2007 influenza virus vacc ine, unspecified formulation Jersey Stern V, DO Work Phone: [facility] Work Phone: 02-12-2007 tetanus and diphther ia toxoids, adsorbed, preservative free, for adult use (2 Lf of tetanus toxoid and 2 Lf of diphtheria toxoid) Jersey Stern V, DO Work Phone: [facility] 07-24-2006 influenza virus vacc ine, unspecified formulation Jerseyzachariah Stern V, DO Work Phone: [facility] 07-17-2005 influenza virus vacc ine, unspecified formulation Jersey Jarred Spears, DO Work Phone: [facility] Work Phone: Payers Date Payer Category Payer Self-pay [id number] 2017 Medicare MEDICARE MEDICAR E A AND B [id number] 2017-Present [phone] [address] [address] [place] [address] Medicare [id number] 2017 Medicare [id number] 2017 Private Health Insurance [employer] MEDICARE SUPPLEMENT [id number] 2017-Present [phone] [address] [address] [place] [address] Indemnity [id number] 2017 Private Health Insurance [id number] 2017 Medicare [id number] 2017 Private Health Insurance [facility] [id number] 2014 Unknown [facility] SALUD [id number] Unknown [id number] Unknown [id number] Unknown [id number] Unknown [id number] Unknown [id number] Unknown [id number] Unknown [id number] Unknown [id number] Unknown [id number] Unknown [id number] Unknown [id number] Social History Date Type Detail Facility Start: 07-10-2011 End: 03-18-2025 Tobacco smoking status [facility] Never smoked tobacco [facility] Start: 12-01-2021 End: 01-29-2025 Alcohol intake Current non-drinker of alcohol (finding) [facility] Start: 07-01-2020 History SDOH Physica l Activity DPW 0 [facility] Start: 07-01-2020 History SDOH Stress 1 [facility] Start: 07-01-2020 History SDOH Financial 5 [facility] Start: 07-01-2020 History SDOH Transpo rt Med 2 [facility] Start: 07-01-2020 Education 21 [facility] Start: 1950 Sex Assigned At Female [facility] Start: 11-15-2021 End: 03-30-2022 Exposure to SARS-CoV-2 (event) Not sure [facility] Start: 01-19-2022 End: 01-29-2022 Exposure to SARS-CoV-2 (event) Yes [facility] Work Phone: Start: 07-10-2011 End: 08-07-2022 Tobacco use and exposure Smokeless tobacco non-user [facility] Work Phone: Start: 05-27-2022 End: 04-29-2023 Tobacco smoking status NHIS Unknown if ever smoked [facility] Start: 12-08-2015 None [facility] Start: 12-08-2015 Spouse/ Signif icant Other [facility] Start: 09-30-2016 Non-smoker [facility] Start: 11-16-2022 End: 03-25-2023 History of Social function [facility] Work Phone: Start: 11-16-2022 End: 03-25-2023 Tobacco use panel [facility] Work Phone: Start: 08-10-2012 How hard is it for y ou to pay for the very basics like food, housing, medical care, and heating Not hard at all [facility] Work Phone: Do you feel stress - tense, restless, nervous, or anxious, or unable to sleep at night because your mind is troubled all the time - these days [OSQ] Not at all [facility] Work Phone: (I/We) worried wheth er (my/our) food would run out before (I/we) got money to buy more. Never true [facility] Work Phone: Start: 04-29-2020 Gender identity Identifies as female gender (finding) [facility] Start: 04-29-2020 Sexual orientation Heterosexual (philip ortiz) [facility] Start: 05-04-2025 Alcoholic beverage intake Lifetime non-drinker (finding) [facility] How often to you hav e a drink containing alcohol? Never [facility] Goals Date Patient Goal Desired Activity /State Functional Status Date Assessment Result Facility 05-04-2025 Total score [AUDIT-C] 0 05/04/20 25 2:43 PM EDT Beth Linda LPN [facility] 09-08-2022 Functional status Activity Abili ty Standby Assist [facility] Work Phone: 09-07-2022 Functional status Patient Activi ty Ambulates [facility] Work Phone: 09-07-2022 Functional status Assistive Ana jaymie Rolling Walker [facility] Work Phone: 01-06-2015 Are you deaf, or do you have serious difficulty hearing No 01/06/2015 9:19 AM PBT Homa Kirkland LPN No [facility] 01-06-2015 Are you blind, or do you have serious difficulty seeing, even when wearing glasses No 01/06/2015 9:19 AM PBT Homa Kirkland LPN No [facility] 01-06-2015 Do you have serious difficulty walking or climbing stairs No 01/06/2015 9:19 AM EDT Homa Kirkland LPN No [facility] 01-06-2015 Do you have difficul ty dressing or bathing No 01/06/2015 9:19 AM Homa Golden LPN No [facility] 01-06-2015 Because of a physica l, mental, or emotional condition, do you have difficulty doing errands alone such as visiting a physician's office or shopping Yes 01/06/2015 9:19 AM Homa Golden LPN Yes [facility] Mental Status Date Assessment Result Facility 09-08-2022 Cognitive function Voice/Name [facility] Work Phone: 09-06-2022 Cognitive function Level Of Cons ciousness Awake;Alert;Appropriate;Fol lows Commands [facility] Work Phone: 01-06-2015 Because of a physica l, mental, or emotional condition, do you have serious difficulty concentrating, remembering, or making decisions No 01/06/2015 9:19 AM Homa Golden LPN No [facility] Clinical Notes 10-17-2021 to 05-26-2025 Note Date & Type Note Facility 05-26-2025 History and physi taty note Note Date/Time May 26, 2025 1:55pm [facility] [address] [place] [address] H&P Exam - Wound Care 05/26/25 1349 MR#: [id number] Acct: [id number] Name: GERALDINE HAIRSTON Rep #:[id number] : [...] of her injury, she presented to the [facility] Emergency Department, where she was found [...] her age, though has a history of alul-esix-tgsqakfjbfxrjnb, GERD, hypertension, hypothyroidism, and osteoporosis. She denies a history of diabetes mellitus, myocardial infarction,cerebrovascular accident, renal disease, and pulmonary disease. Her BMI is 19.5. She is . Since the patient's initial presentation, the traumatic injury on her left calf has healed, and she has sustained a similar injury to the right medial calf, for which she remained a patient at the Wound Center. [facility] Medical History Non-pressure chronic ulcer of right [...] Date Recorded By Document 05/25/25 13:09 RUSS [id number] 05/25/25 13:12 05/25/25 13:09 DANTE - Today's Visit Information Type of service Follow-up Visit (Physician/HOME CARE ASSISTANT ) Arrival Mode Ambulatory,Cane Patient Identification Verified [...] 0-10 Numeric Is Patient Pain Free? Yes [facility] Nurse 1 - General Ulcer Measurement Start: 05/25/25 13:09 Freq: Status: Active Protocol: Activity Type Activity Date Activity User E-sign Co-sign Detail Recorded Client Recorded Date Recorded By Document 05/25/25 13:09 KW [id number] 05/25/25 13:12 KW 05/25/25 13:09 Wound Center [...] Recorded Date Recorded By Document 05/25/25 13:16 [id number] 05/25/25 13:17 DS 05/25/25 13:16 Wound Center [...] Date Recorded By Document 05/25/25 13:17 DS [id number] 05/25/25 13:17 DS 05/25/25 13:17 Wound Care Center Nurse 3 #2- R LAT LEG- DOG SCRATCH -Wound Comment(s) pt healed - pt d/c Pain Scale: 0-10 Numeric Is Patient Pain Free? 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 However, as of this clinic visit, all wounds are nowcompletely healed and epithelialized. Therefore, the patient is to be discharged, and she will follow-up henceforth on an as needed basis. Total time: 20 minutes 05/26/25 [id number] <Electronically signed by Cedric Gibbons MD> Cosigner Signature (if applicable): CC: ~ Signed [facility] Work Phone: 1(541) 335-545709-17-2025 History and physical note [facility] [address] [place] [address] H&P Exam - Wound Care 05/26/25 1349 MR#: [id number] Acct: [id number] Name: GERALDINE HAIRSTON Rep #:[id number] : 1950 74 From: Cedric Worthingotn PCP: Dr. Chance Kolb MD Status:RE G RCR Location: History of Present Illness Date of Service: 05/25/25 Chief Complaint: Traumatic avulsion injury of the right medial calf History of Wound: This is a 74-year-old female who sustained a traumatic injury to her left medial calf on January 01, 2025. At the time of her injury, she presented to the [facility] Emergency Department, where she was found [...] her age, though has a history of svkm-iimt-aecmkxyzmltdkjt, GERD, hypertension, hypothyroidism, and osteoporosis. She denies a history of diabetes mellitus, myocardial infarction,cerebrovascular accident, renaldisease, and pulmonary disease. Her BMI is 19.5. She is . Since the patient's initial presentation, the traumatic injury on her left calf has healed, and she has sustained a similar injury to the right medial calf, for which she remained a patient at the Wound Center. [facility] Medical History Non-pressure chronic ulcer of right [...] Start: 05/25/25 13:09 Freq: Status: Active Protocol: NATAHLIE Activity Type Activity Date Activity User E-sign Co-sign Detail Recorded Client Recorded Date Recorded By Document 05/25/25 13:09 RUSS [id number] 05/25/25 13:12 05/25/25 13:09 DANTE - Today's Visit Information Type of service Follow-up Visit (Physician/HOME CARE ASSISTANT ) Arrival Mode Ambulatory,Cane Patient Identification Verified [...] 0-10 Numeric Is Patient Pain Free? Yes [facility] Nurse 1 - General Ulcer Measurement Start: 05/25/25 13:09 Freq: Status: Active Protocol: Activity Type Activity Date Activity User E-sign Co-sign Detail Recorded Client Recorded Date Recorded By Document 05/25/25 13:09 KW [id number] 05/25/25 13:12 KW 05/25/25 13:09 Wound Center [...] Recorded Date Recorded By Document 05/25/25 13:16 [id number] 05/25/25 13:17 DS 05/25/25 13:16 Wound Center [...] Date Recorded By Document 05/25/25 13:17 DS [id number] 05/25/25 13:17 DS 05/25/25 13:17 Wound Care Center Nurse 3 #2- R LAT LEG- DOG SCRATCH -Wound Comment(s) pt healed - pt d/c Pain Scale: 0-10 Numeric Is Patient Pain Free? 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 Author Type: Certified Phlebotomist Type: Progress Notes Filed: 05/24/2025 13:50 Note [...] PATIENT PRESENTS WITH AN IMPLANTABLE OR ATTACHED METALLIC YARN SLITTING MACHINE OPERATOR: No RADIOLOGY DEPARTMENT: Mammography PERIPHERAL IV DATA: Not applicable SIGNED BY: Paulie Espino May 24, 2025 1:49 [facility]08-31-2025 History and physical note Author Cedric Gibbons [facility] Note Date/Time May 09, 2025 5: 09pm [facility] [address] [place] [address] H&P Exam - Wound Care 05/09/25 1703 MR#: [id number] Acct: [id number] Name: GERALDINE HAIRSTON Rep #:[id number] : [...] of her injury, she presented to the [facility] Emergency Department, where she was found [...] her age, though has a history of meuj-wqsm-skmfgwbiaxmurye, GERD, hypertension, hypothyroidism, and osteoporosis. She denies a history of diabetes mellitus, myocardial infarction,cerebrovascular accident, renal disease, and pulmonary disease. Her BMI is 19.5. She is . Since the patient's initial presentation, the traumatic injury on her left calf has healed, and she has sustained a similar injury to the right medial calf, for which she remains a patient at the Wound Center. [facility] Medical History Non-pressure chronic ulcer of right [...] She was seen and evaluated in the [facility] Emergency Department on March 13, 2025, at which time she was found to have a triangular-shaped laceration/avulsion injury on her right calf. Seven 4-0 Ethilon sutures were used to reapproximate the avulsion flap. The patient was placed on cephalexin and Augmentin orally. The sut[facility], which were placed in the Emergency Department, [facility] [place] Since that [facility], the traumatic flap has largely necrosed due to ischemia. An open wound persists at the site, which appears to be full-thickness in nature. It extends through all layers of the dermis and into the subcutaneous tissues. Wound margins are well beveled. There is a small amount of slough and bioburden. Datto healthy granulation tissue is also noted. Dimensions [...] Recorded Date Recorded By Document 04/20/25 13:14 [facility] [id number] 04/20/25 13:20 [facility] Document 05/04/25 13:08 RUSS [id number] 05/04/25 13:09 RUSS 04/20/25 05/04/25 13:14 13:08 - Today's Visit Information Type of service Follow-up Visit Follow-up Visit (Physician/HOME CARE ASSISTANT (Physician/HOME CARE ASSISTANT ) ) Arrival Mode Ambulatory Ambulatory,Cane Transfer [...] Recorded Date Recorded By Document 04/20/25 13:14 [facility] [id number] 04/20/25 13:20 [facility] Document 05/04/25 13:08 [id number] 05/04/25 13:09 KW 04/20/25 05/04/25 13:14 13:08 [...] Recorded Date Recorded By Document 04/20/25 13:30 [id number] 04/20/25 13:34 Document 05/04/25 13:23 DS [id number] 05/04/25 13:25 DS 04/20/25 05/04/25 13:30 13:23 [...] Date Recorded By Document 04/20/25 13:39 BM [id number] 04/20/25 13:39 BMF Document 05/04/25 13:36 ML [id number] 05/04/25 13:37 ML 04/20/25 05/04/25 13:39 13:36 [...] Transportation Private Auto Charges/Coding Procedures Integumentary 111xxx-113xx: 15378 Esha subq tissue 20 sq cm/< Assessment/Plan [...] Age-related osteoporosis without current pathological fracture (11) Fexm-mlwz-ssosvwjcfaiheub: 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 The injury occurred when thepatient's dog traumatized her leg with its nails. Due to management at the [facility], the wound on the left calf has completely healed and epithelialized. However, the patient subsequently sustained a wound on her right calf as the result of a similar injury caused by her dog. She was seen and evaluated in the [facility] EmergencyDepartment on March 13, 2025, at which time she was found to have a triangular-shaped laceration/avulsion injury on her right calf. Seven 4-0 Ethilon sutures were used to reapproximate the avulsion flap. The patient was placed on cephalexin and Augmentin orally. The sutures, which were placed in the Emergency Department, were removed on March 22, 2025, at the [facility] in [place]. The avulsion flap did not survive due [...] Cosigner Signature (if applicable): CC: ~ Signed [facility] Work Phone: 1(125) 564-284208-31-2025 History and physical note [facility] [address] [place] [address] H&P Exam - Wound Care 05/09/25 170 MR#: [id number] Acct: [id number] Name: GERALDINE HAIRSTON Rep #:[id number] : [...] of her injury, she presented to the [facility] Emergency Department, where she was found [...] her age, though has a history of eeby-ynkc-pgajyhvrpgfljhp, GERD, hypertension, hypothyroidism, and osteoporosis. She denies a history of diabetes mellitus, myocardial infarction,cerebrovascular accident, renaldisease, and pulmonary disease. Her BMI is 19.5. She is . Since the patient's initial presentation, the traumatic injury on her left calf has healed, and she has sustained a similar injury to the right medial calf, for which she remains a patient at the Wound Center. [facility] Medical History Non-pressure chronic ulcer of right [...] She was seen and evaluated in the [facility] Emergency Department on March 13, 2025, atwhich time she was found to have a triangular-shaped laceration/avulsion injury on her right calf. Seven 4-0 Ethilon sutures were used to reapproximate the avulsion flap. The patient was placed on cephalexin and Augmentin orally. The sutures, which were placed in the Emergency Department, [facility] [place] Since that time, the traumatic flap has larg johnny necrosed due to ischemia. An open wound persists at the site, which appears to be full-thickness in nature. It extends through all layers of the dermis and into the subcutaneous tissues. Wound margins are well beveled. There is a small amount of slough and bioburden. Datto healthy granulation tissue is also noted. Dimensions [...] Date Recorded By Document 04/20/25 13:14 BM [id number] 04/20/25 13:20 BM Document 05/04/25 13:08 KW [id number] 05/04/25 13:09 KW 04/20/25 05/04/25 13:14 13:08 - Today's Visit Information Type of service Follow-up Visit Follow-up Visit (Physician/HOME CARE ASSISTANT (Physician/HOME CARE ASSISTANT ) ) Arrival Mode Ambulatory Ambulatory,Cane Transfer [...] Date Recorded By Document 04/20/25 13:14 BM [id number] 04/20/25 13:20 [facility] Document 05/04/25 13:08 KW [id number] 05/04/25 13:09 04/20/25 05/04/25 13:14 13:08 Wound [...] Recorded Date Recorded By Document 04/20/25 13:30 [id number] 04/20/25 13:34 Document 05/04/25 13:23 DS [id number] 05/04/25 13:25 DS 04/20/25 05/04/25 13:30 13:23 [...] Recorded Date Recorded By Document 04/20/25 13:39 [facility] [id number] 04/20/25 13:39 [facility] Document 05/04/25 13:36 ML [id number] 05/04/25 13:37 ML 04/20/25 05/04/25 13:39 13:36 [...] Transportation Private Auto Charges/Coding Procedures Integumentary 111xxx-113xx: 50534 Esha subq tissue 20 sq cm/< Assessment/Plan [...] Age-related osteoporosis without current pathological fracture (11) Vphk-dmpv-wfussraswiknwyy: 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 The injury occurred when thepatient's dog traumatized her leg with its nails. Due to management at the [facility], the wound on the left calf has completely healed and epithelialized. However, the patient subsequently sustained a wound on her right calf as the result of a similar injury caused by her dog. [facility], at which time she was found to havea triangular-shaped laceration/avulsion injury on her right calf. Seven 4-0 Ethilon sutures were used to reapproximate the avulsion flap. The patient was placed on cephalexin and Augmentin orally. The sutures, which were placed in the Emergency Department, were removed on March 22, 2025, at the [facility] in [place]. The avulsion flap did not survive due [...] a supplement. Total time: 22 minutes 05/09/25 8749 Cosigner Signature (if applicable): CC: ~ Signed [facility]08-26-2025 History of Present illness Narrative* Nguyễn Stringer APRN.DESK CLERKS SUPERVISOR - 05/04/2025 3:20 PM EDT Images [...] in the medical record. Dr. Alin Altamirano Gear Setter Dr. Thom Swan at [facility] follow up. Medical/Family history review Reviewed and [...] Z12.11 She gets colonoscopies completed by a logistics analytics manager in [place] Dr. Swan, last was completed in 2019. 5-year follow-up recommended. 5. Encounter for immunization - ICD9: V03.89, ICD10: Z23 - [facility] PRINTED [facility]Y INSTRUCTIONS - [facility] [employer] [facility] IN[employer]CTIONS 6 mo follow up Chance Kolb MD schedule mammogram this year. colonoscopy this year with logistics analytics manager. Nguyễn Stringer APRN.CNS documented in this encounterTrihealth [facility]08-26-2025 NoteHNO ID: [id number] Author: NGUYỄN STRINGER APRN.CNS Service: ? Author [...] in the medical record. Dr. Alin Altamirano Gear Setter Dr. Thom Swan at [facility] follow up. Medical/Family history review Reviewed and [...] Z12.11 She gets colonoscopies completed by a logistics analytics manager in [place] Dr. Swan, last was completed in 2019. 5-year follow-up recommended. 5. Encounter for immunization - ICD9: V03.89, ICD10: Z23 - [facility] PRINTED PH[facility]ACY INSTRUCTIONS - [facility] [employer] [facility] INSTRUCTIONS 6 mo follow up Chance Kolb MD schedule mammogram this year. colonoscopy this year with logistics analytics manager. Nguyễn Stringer APRN.[facility]08-26-2025 Instructions* Patient Instructions* Nguyễn Stringer APRN.DESK CLERKS SUPERVISOR - 05/04/2025 12:39 PM EDT Screening [...] review all the medicines you take, even kvce-xkc-lgcusvs medicines. As you get older, the way [...] have certain medical conditions. documented in this encounterTrihealth [facility]08-13-2025 History and physical note Author Cedric Gibbons [facility] Note Date/Time April 21, 2025 5: 59pm [facility] [address] [place] [address] H&P Exam - Wound Care 04/21/25 1750 MR#: [id number] Acct: [id number] Name: GERALDINE HAIRSTON Rep #:[id number] : [...] of her injury, she presented to the [facility] Emergency Department, where she was found [...] her age, though has a history of fcqj-irxx-draadbqvnjhjflg, GERD, hypertension, hypothyroidism, and osteoporosis. She denies a history of diabetes mellitus, myocardial infarction,cerebrovascular accident, renal disease, and pulmonary disease. Her BMI is 19.5. She is . Since the patient's initial presentation, the traumatic injury on her left calf has healed, and she has sustained a similar injury to the right medial calf, for which she remains a patient at the Wound Center. [facility] Medical History Non-pressure chronic ulcer of right [...] She was seen and evaluated in the [facility] Emergency Department on March 13, 2025, at which time she was found to have a triangular-shaped laceration/avulsion injury on her right calf. Seven 4-0 Ethilon sutures were used to reapproximate the avulsion flap. The patient was placed on cephalexin and Augmentin orally. The sutures, which were placed in the Emergency Department, [facility] [place] Since that time, the traumatic flap has largely necrosed due to ischemia. An open wound persists at the site, which appears to be full-thickness in nature. It extends through all layers of the dermis and into the subcutaneous tissues. Wound margins are well beveled. There is a small amount of slough and bioburden. Datto healthy granulation tissue is also noted. Dimensions [...] Recorded Date Recorded By Document 04/20/25 13:14 [facility] [id number] 04/20/25 13:20 [facility] 04/20/25 13:14 - Today's Visit Information Type of service Follow-up Visit (Physician/HOME CARE ASSISTANT ) Arrival Mode Ambulatory Transfer Assistance None [...] Recorded Date Recorded By Document 04/20/25 13:14 [facility] [id number] 04/20/25 13:20 [facility] 04/20/25 13:14 Wound Center Nurse 1 #2- [...] Recorded Date Recorded By Document 04/20/25 13:30 [id number] 04/20/25 13:34 04/20/25 13:30 Wound Center Nurse [...] Recorded Date Recorded By Document 04/20/25 13:39 [facility] [id number] 04/20/25 13:39 [facility] 04/20/25 13:39 Wound Care Center Nurse 3 [...] Transportation Private Auto Charges/Coding Procedures Integumentary 111xxx-113xx: 39440 Esha subq tissue 20 sq cm/< Assessment/Plan [...] Age-related osteoporosis without current pathological fracture (11) Hnzo-tpkk-ccrtodfmcgsdxuz: 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 The injury occurred when thepatient's dog traumatized her leg with its nails. Due to management at the [facility], the wound on the left calf has completely healed and epithelialized. However, the patient subsequently sustained a wound on her right calf as the result of a similar injury caused by her dog. She was seen and evaluated in the [facility] Emergency[facility] on March 13, 2025, at which time she was found to have a triangular-shaped laceration/avulsion injury on her right calf. Seven 4-0 Ethilon sutures were used to reapproximate the avulsion flap. The patient was placed on cephalexin and Augmentin orally. The sutures, which were placed in the Emergency Department, were removed on March 22, 2025, at the [facility] [place]. The avulsion flap has not survived due [...] Cosigner Signature (if applicable): CC: ~ Signed [facility] Work Phone: 1(698) 293-122608-13-2025 History and physical note [facility] [address] [place] [address] H&P Exam - Wound Care 04/21/25 175 MR#: [id number] Acct: [id number] Name: GERALDINE HAIRSTON Rep #:[id number] : [...] of her injury, she presented to the [facility] Emergency Department, where she was found [...] her age, though has a history of jbob-zdhk-sjtjzkyvgzkscyk, GERD, hypertension, hypothyroidism, and osteoporosis. She denies a history of diabetes mellitus, myocardial infarction,cerebrovascular accident, renaldisease, and pulmonary disease. Her BMI is 19.5. She is . Since the patient's initial presentation, the traumatic injury on her left calf has healed, and she has sustained a similar injury to the right medial calf, for which she remains a patient at the Wound Center. [facility] Medical History Non-pressure chronic ulcer of right [...] She was seen and evaluated in the [facility] Emergency Department on March 13, 2025, atwhich time she was found to have a triangular-shaped laceration/avulsion injury on her right calf. Seven 4-0 Ethilon sutures were used to reapproximate the avulsion flap. The patient was placed on cephalexin and Augmentin orally. The sutures, which were placed in the Emergency Department, [facility] [place] Since that [facility], the traumatic flap has larg johnny necrosed due to ischemia. An open wound persists at the site, which appears to be full-thickness in nature. It extends through all layers of the dermis and into the subcutaneous tissues. Wound margins are well beveled. There is a small amount of slough and bioburden. Datto healthy granulation tissue is also noted. Dimensions [...] Recorded Date Recorded By Document 04/20/25 13:14 [facility] [id number] 04/20/25 13:20 [facility] 04/20/25 13:14 - Today's Visit Information Type of service Follow-up Visit (Physician/HOME CARE ASSISTANT ) Arrival Mode Ambulatory Transfer Assistance None [...] Recorded Date Recorded By Document 04/20/25 13:14 [facility] [id number] 04/20/25 13:20 [facility] 04/20/25 13:14 Wound Center Nurse 1 #2- [...] Recorded Date Recorded By Document 04/20/25 13:30 [id number] 04/20/25 13:34 04/20/25 13:30 Wound Center Nurse [...] Recorded Date Recorded By Document 04/20/25 13:39 [facility] [id number] 04/20/25 13:39 [facility] 04/20/25 13:39 Wound Care Center Nurse 3 [...] Transportation Private Auto Charges/Coding Procedures Integumentary 111xxx-113xx: 40385 Esha subq tissue 20 sq cm/< Assessment/Plan [...] Age-related osteoporosis without current pathological fracture (11) Vowd-uouz-bwyweamwuklrexc: 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 The injury occurred when thepatient's dog traumatized her leg with its nails. Due to management at the [facility], the wound on the left calf has completely healed and epithelialized. However, the patient subsequently sustained a wound on her right calf as the result of a similar injury caused by her dog. [facility], at which time she was found to havea triangular-shaped laceration/avulsion injury on her right calf. Seven 4-0 Ethilon sutures were used to reapproximate the avulsion flap. The patient was placed on cephalexin and Augmentin orally. The sutures, which were placed in the Emergency Department, were removed on March 22, 2025, at the [facility] in [place]. The avulsion flap has not survived due [...] a supplement. Total time: 25 minutes 04/21/25 4219 Cosigner Signature (if applicable): CC: ~ Signed [facility]07-24-2025 History and physical note Author Cedric Gibbons [facility] Note Date/Time April 01, 2025 11:5 1am [facility] [address] [place] [address] H&P Exam - Wound Care 04/01/25 1135 MR#: [id number] Acct: [id number] Name: GERALDINE HAIRSTON Elin Rep #:[id number] [...] of her injury, she presented to the [facility] Emergency Department, where she was found [...] her age, though has a history of jays-fazf-irdxepgakrpwsoj, GERD, hypertension, hypothyroidism, and osteoporosis. She denies a history of diabetes mellitus, myocardial infarction,cerebrovascular accident, renal disease, and pulmonary disease. Her BMI is 19.5. She is . [facility] Medical History Non-pressure chronic ulcer of right [...] She was seen and evaluated in the [facility] Emergency Department on March 13, 2025, at which time she was found to have a triangular-shaped laceration/avulsion injury on her right calf. Seven 4-0 Ethilon sutures were used to reapproximate the avulsion flap. The patient was placed on cephalexin and Augmentin orally. The sutures, which were placed in the Emergency Department, [facility] [place] Since that time, the traumatic flap has largely necrosed due to ischemia. An open wound persists at the site, which appears to be full-thickness in nature. It extends through all layers of the dermis and into the subcutaneous tissues. Wound margins are well beveled. There is a small amount of slough and bioburden. Datto healthy granulation tissue is also noted. Dimensions [...] Date Recorded By Document 03/09/25 12:55 KW [id number] 03/09/25 12:57 KW Document 03/23/25 13:03 BMF [id number] 03/23/25 13:13 BM Document 03/30/25 13:13 ML [id number] 03/30/25 13:22 ML 03/09/25 03/23/25 03/30/25 12:55 13:03 13:13 - Today's Visit Information Type of service Follow-up Visit Follow-up Visit Follow-up Visit (Physician/HOME CARE ASSISTANT (Physician/HOME CARE ASSISTANT (Physician/HOME CARE ASSISTANT ) ) ) Arrival Mode Ambulatory,Cane Ambulatory [...] Date Recorded By Document 03/09/25 12:55 KW [id number] 03/09/25 12:57 KW Document 03/23/25 13:03 BMF [id number] 03/23/25 13:13 BMF Document 03/30/25 13:13 ML [id number] 03/30/25 13:22 ML 03/09/25 03/23/25 03/30/25 12:55 [...] Date Recorded By Document 03/09/25 13:03 DS [id number] 03/09/25 13:07 DS Document 03/23/25 13:26 DS [id number] 03/23/25 13:29 DS Document 03/30/25 13:34 DS [id number] 03/30/25 13:38 DS 03/09/25 03/23/25 03/30/25 13:03 [...] Date Recorded By Document 03/09/25 13:16 BM [id number] 03/09/25 13:17 BM Document 03/23/25 13:35 KW [id number] 03/23/25 13:35 KW Document 03/30/25 13:46 ML [id number] 03/30/25 13:48 ML 03/09/25 03/23/25 03/30/25 13:16 [...] Care Provided Yes Charges/Coding Procedures Integumentary 111xxx-113xx: 63351 Esha subq tissue 20 sq cm/< Assessment/Plan [...] Age-related osteoporosis without current pathological fracture (12) Lhax-excf-psjdwraiyrjrfti: 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 The injury occurred when thepatient's dog traumatized her leg with its nails. Due to management at the [facility], the wound on the left calf has completely healed and epithelialized. However, the patient has now sustained a wound on her right calf as the result of a similar injury caused by her dog. She was seen and evaluated in the [facility] Emergency Department on March 13, 2025, at which time she was found to have a triangular-shaped laceration/avulsion injury on her right calf. Seven 4-0 Ethilon sutures were used to reapproximate the avulsion flap. The patient was placed on cephalexin and Augmentin orally. The sutures, which were placed in the Emergency Department, were removed on March 22, 2025, at the [facility] in [place]. The avulsion flap has not survived due [...] Cosigner Signature (if applicable): CC: ~ Signed [facility] Work Phone: 1(182) 342-266307-24-2025 History and physical note [facility] [address] [place] [id number] H&P Exam - Wound Care 04/01/25 1135 MR#: [id number] Acct: [id number] Name: GERALDINE HAIRSTON Rep #:[id number] : [...] of her injury, she presented to the [facility] Emergency Department, where she was found [...] her age, though has a history of uice-rvlj-oelozbtprstlngi, GERD, hypertension, hypothyroidism, and osteoporosis. She denies a history of diabetes mellitus, myocardial infarction,cerebrovascular accident, renaldisease, and pulmonary disease. Her BMI is 19.5. She is . [facility] Medical History Non-pressure chronic ulcer of right [...] 600 mg PO BID Check with [facility] 12/07/15 09/29/16 21:00 History doctor [...] 9 mg PO DAILY Check with [facility] 09/30/16 Unknown History capsule,delayed,extended release doctor (Entocort [...] She was seen and evaluated in the [facility] Emergency Department on March 13, 2025, atwhich time she was found to have a triangular-shaped laceration/avulsion injury on her right calf. Seven 4-0 Ethilon sutures were used to reapproximate the avulsion flap. The patient was placed on cephalexin and Augmentin orally. The sutures, which were placed in the Emergency Department, [facility] [place] Since that time, the traumatic flap has larg johnny necrosed due to ischemia. An open wound persists at the site, which appears to be full-thickness in nature. It extends through all layers of the dermis and into the subcutaneous tissues. Wound margins are well beveled. There is a small amount of slough and bioburden. Datto healthy granulation tissue is also noted. Dimensions [...] Date Recorded By Document 03/09/25 12:55 KW [id number] 03/09/25 12:57 KW Document 03/23/25 13:03 BMF [id number] 03/23/25 13:13 BMF Document 03/30/25 13:13 ML [id number] 03/30/25 13:22 ML 03/09/25 03/23/25 03/30/25 12:55 13:03 13:13 - Today's Visit Information Type of service Follow-up Visit Follow-up Visit Follow-up Visit (Physician/HOME CARE ASSISTANT (Physician/HOME CARE ASSISTANT (Physician/HOME CARE ASSISTANT ) ) ) Arrival Mode Ambulatory,Cane Ambulatory [...] Date Recorded By Document 03/09/25 12:55 KW [id number] 03/09/25 12:57 KW Document 03/23/25 13:03 BMF [id number] 03/23/25 13:13 BMF Document 03/30/25 13:13 ML [id number] 03/30/25 13:22 ML 03/09/25 03/23/25 03/30/25 12:55 [...] Date Recorded By Document 03/09/25 13:03 DS [id number] 03/09/25 13:07 DS Document 03/23/25 13:26 DS [id number] 03/23/25 13:29 DS Document 03/30/25 13:34 DS [id number] 03/30/25 13:38 DS 03/09/25 03/23/25 03/30/25 13:03 [...] Date Recorded By Document 03/09/25 13:16 BM [id number] 03/09/25 13:17 BM Document 03/23/25 13:35 KW [id number] 03/23/25 13:35 KW Document 03/30/25 13:46 ML [id number] 03/30/25 13:48 ML 03/09/25 03/23/25 03/30/25 13:16 [...] Care Provided Yes Charges/Coding Procedures Integumentary 111xxx-113xx: 57143 Esha subq tissue 20 sq cm/< Assessment/Plan [...] Age-related osteoporosis without current pathological fracture (12) Xgny-tsqi-mqhuoaxzsputxrb: 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 The injury occurred when thepatient's dog traumatized her leg with its nails. Due to management at the [facility], the wound on the left calf has completely healed and epithelialized. However, the patient has now sustained a wound on her right calf as the result of a similar injury caused by her dog. She was seen and evaluated in the [facility] Emergency Department on March 13, 2025, at which time she was found to have a triangular-shaped laceration/avulsion injury on her right calf. Seven 4-0 Ethilon sutures were used to reapproximate the avulsion flap. The patient was placed on cephalexin and Augmentin orally. The sutures, which were placed in the Emergency Department, were removed on March 22, 2025, at the [facility] in [place]. The avulsion flap has not survived due [...] Cosigner Signature (if applicable): CC: ~ Signed [facility]07-19-2025 History and physical note Author Cedric Gibbons [facility] Note Date/Time March 27, 2025 5:46 pm [facility] [address] [place] [address] H&P Exam - Wound Care 03/27/25 1730 MR#: [id number] Acct: [id number] Name: GERALDINE HAIRSTON Elin Rep #:[id number] [...] of her injury, she presented to the [facility] Emergency Department, where she was found [...] her age, though has a history of xzbs-qlmh-jhurdvrgdkotmyi, GERD, hypertension, hypothyroidism, and osteoporosis. She denies a history of diabetes mellitus, myocardial infarction,cerebrovascular accident, renal disease, and pulmonary disease. Her BMI is 19.5. She is . [facility] Medical History Non-pressure chronic ulcer of right [...] 600 mg PO BID Check with [facility] 12/07/15 09/29/16 21:00 History doctor [...] 9 mg PO DAILY Check with [facility] 09/30/16 Unknown History capsule,delayed,extended release doctor (Entocort [...] She was seen and evaluated in the [facility] Emergency Department on March 13, 2025, at which time she was found to have a triangular-shaped laceration/avulsion injury on her right calf. Seven 4-0 Ethilon sutures were used to reapproximate the avulsion flap. The patient was placed on cephalexin and Augmentin orally. The sutures which were placed in the Emergency Departmentwere removed yesterday, March 22, 2025, at the [facility] in [place]. As of this visit, the wound appears [...] Recorded Date Recorded By Document 03/09/25 12:55 [id number] 03/09/25 12:57 Document 03/23/25 13:03 [facility] [id number] 03/23/25 13:13 [facility] 03/09/25 03/23/25 12:55 13:03 - Today's Visit Information Type of service Follow-up Visit Follow-up Visit (Physician/HOME CARE ASSISTANT (Physician/HOME CARE ASSISTANT ) ) Arrival Mode Ambulatory,Cane Ambulatory Transfer [...] Recorded Date Recorded By Document 03/09/25 12:55 [id number] 03/09/25 12:57 Document 03/23/25 13:03 [facility] [id number] 03/23/25 13:13 [facility] 03/09/25 03/23/25 12:55 13:03 Wound Center Nurse [...] Date Recorded By Document 03/09/25 13:03 DS [id number] 03/09/25 13:07 DS Document 03/23/25 13:26 DS [id number] 03/23/25 13:29 DS 03/09/25 03/23/25 13:03 13:26 [...] Recorded Date Recorded By Document 03/09/25 13:16 [facility] [id number] 03/09/25 13:17 [facility] Document 03/23/25 13:35 KW [id number] 03/23/25 13:35 KW 03/09/25 03/23/25 13:16 13:35 [...] Charges/Coding Visit Charges Office Visits / Consults: 18192 OV L3 Est 20min Assessment/Plan Assessment/Plan (1) [...] Age-related osteoporosis without current pathological fracture (13) Tteo-fxbj-yxgxzblgzlamcbn: 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 The injury occurred when thepatient's dog traumatized her leg with its nails. Due to management at the [facility], the wound on the left calf appears to be completely healed and epithelialized. However, the patient has now sustaineda wound on her right lateral calf as result of an injury caused by her dog. Shewas seen and evaluated in the [facility] Emergency Department onMarch 13, 2025, at which time she was found to have a triangular-shaped laceration/avulsion injury on her right calf. Seven 4-0 Ethilon sutures were used to reapproximate the avulsion flap. The patient was placed on cephalexin and Augmentin orally. The sutures, which were placed in the Emergency Department, were removed yesterday, March 22, 2025, at the [facility] in [place]. As of this visit, the evulsion flap [...] Cosigner Signature (if applicable): CC: ~ Signed [facility] Work Phone: 1(781) 249-963307-19-2025 History and physical note [facility] [address] [place] [address] H&P Exam - Wound Care 03/27/25 1730 MR#: [id number] Acct: [id number] Name: GERALDINE HAIRSTON Rep #:[id number] : [...] of her injury, she presented to the [facility] Emergency Department, where she was found [...] her age, though has a history of ibkw-cunk-gavgxetfswjqnxd, GERD, hypertension, hypothyroidism, and osteoporosis. She denies a history of diabetes mellitus, myocardial infarction,cerebrovascular accident, renaldisease, and pulmonary disease. Her BMI is 19.5. She is . [facility] Medical History Non-pressure chronic ulcer of right [...] 600 mg PO BID Check with [facility] 12/07/15 09/29/16 21:00 History doctor [...] 9 mg PO DAILY Check with [facility] 09/30/16 Unknown History capsule,delayed,extended release doctor (Entocort [...] She was seen and evaluated in the [facility] Emergency Department on March 13, 2025, at which time she was found to have a triangular-shaped laceration/avulsion injury on her right calf. Seven 4-0 Ethilon sutures were used to reapproximate the avulsion flap. The patient was placed on cephalexin and Augmentin orally. The sutures which were placed in the Emergency Depar tmentwere removed yesterday, March 22, 2025, at the [facility] in [place]. As of this visit, the wound appears [...] Date Recorded By Document 03/09/25 12:55 RUSS [id number] 03/09/25 12:57 Document 03/23/25 13:03 [facility] [id number] 03/23/25 13:13 [facility] 03/09/25 03/23/25 12:55 13:03 - Today's Visit Information Type of service Follow-up Visit Follow-up Visit (Physician/HOME CARE ASSISTANT (Physician/HOME CARE ASSISTANT ) ) Arrival Mode Ambulatory,Cane Ambulatory Transfer [...] Recorded Date Recorded By Document 03/09/25 12:55 [id number] 03/09/25 12:57 Document 03/23/25 13:03 [facility] [id number] 03/23/25 13:13 [facility] 03/09/25 03/23/25 12:55 13:03 Wound Center Nurse [...] Date Recorded By Document 03/09/25 13:03 DS [id number] 03/09/25 13:07 DS Document 03/23/25 13:26 DS [id number] 03/23/25 13:29 DS 03/09/25 03/23/25 13:03 13:26 [...] Recorded Date Recorded By Document 03/09/25 13:16 [facility] [id number] 03/09/25 13:17 [facility] Document 03/23/25 13:35 [id number] 03/23/25 13:35 KW 03/09/25 03/23/25 13:16 13:35 [...] Charges/Coding Visit Charges Office Visits / Consults: 24090 OV L3 Est 20min Assessment/Plan Assessment/Plan (1) [...] Age-related osteoporosis without current pathological fracture (13) Vjzh-ivwd-eqoniwqsfrxlvkr: 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 The injury occurred when thepatient's dog traumatized her leg with its nails. Due to management at the [facility], the wound on the left calf appears to be completely healed and epithelialized. However, the patient has now sustaineda wound on her right lateral calf as result of an injury caused by her dog. [facility], at which time she was found to havea triangular-shaped laceration/avulsion injury on her right calf. Seven 4-0 Ethilon sutures were use d to reapproximate the avulsion flap. The patient was placed on cephalexin and Augmentin orally. The sutures, which were placed in the Emergency Department, were removed yesterday, March 22, 2025, at the [facility] in [place]. As of this visit, the evulsion flap [...] a supplement. Total time: 26 minutes 03/27/25 8506 Cosigner Signature (if applicable): CC: ~ Signed [facility]07-14-2025 Instructions* Patient Instructions* Nguyễn Stringer APRN.CNS [...] at your next visit. documented in this [facility]Tri[facility]25 NoteHNO ID: [id number] Author: NGUYỄN STRINGER APRN.CNS Service: ? Author Type: Nurse Specialist Type: Progress Notes Filed: 03/22/2025 10:28 Note Text: Subjective Patient ID: Geraldine is a 74 year old female who presents for ER F/U. HPI Presents for an ER follow-up visit. She was seen at [facility] on March 13 and March 18, 2025. She was seen in ER on March 13, 2025 for laceration attributed to her dog. Sutures were placed. Noted to be up-to-date on Tdap. She was seen at [facility] in March 18 after sustaining a [...] of lower extremity, unspecified laterality, subsequent encounter (S81.761D) 2. Visit for suture removal (Z48.02) - [...] History of Present illness Narrative* Nguyễn Stringer APRN.[employer]K [employer]ERKS SUPERVISOR - 03/22/2025 9:34 AM EDT Subjective Patient ID: Geraldine is a 74 year old female who presents for ER F/U. HPI Presents for an ER follow-up visit. She was seen at [facility] on March 13 and March 18, 2025. She was seen in ER on March 13, 2025 for laceration attributed to her dog. Sutures were placed. Noted to be up-to-date on Tdap. She was seen at [facility] in March 18 after sustaining a [...] of lower extremity, unspecified laterality, subsequent encounter (L70.119M) 2. Visit for suture removal (Z48.02) - [...] Level: 4 - Moderate documented in this [facility]Tri[facility] Discharge summary [facility] Medical Records Department [address] [place] [address] Emergency Department Summary 03/18/25 MR#: [id number] Acct: [id number] Name: GERALDINE HAIRSTON Elin Rep #:[id number] [...] management. Patient denies any blood thinning medications. [facility] Medical History Non-pressure chronic ulcer of left [...] following commands and that she was at [facility] year is 2024 Skin: Warm, dry, [...] otherwise she is to rotate Tylenol andibuprofen jltyrp-wwm-pvtwo she also began prescription for cyclobenzaprine. Allquestion concerns answered she was discharged home in stable condition peer Radiography Diagnostic Testing: Clinical Impression(s) from Imaging Studies Pelvis X-Ray 03/18/25 10:03 IMPRESSION: No acute fracture is seen. Reading Location: [facility]IR-[address] 03/18/25 10:10 IMPRESSION: LUMBAR DEGENERATIVE DISC AND FACET DISEASE. Nondisplaced compression fracture along the anterior superior endplate of the M0ppqiilbbe. Reading Location: [facility]IR-1 Femur X-Ray 03/18/25 10:20 IMPRESSION: NO ACUTE FRACTURE OR DISLOCATION. Reading Location: [facility]--1 Discharge Plan Triage Chief Complaint: Lower [...] pain you should rotate Tylenol and ibuprofen xmvfeb-vtt-qbsnv when you do this you can take something every 3 hours withmax dose of Tylenol in 24 hours 3200 mg. You need to follow-up with Dr. Brito. Your CT didshow a compression fracture of your L4 vertebrae. Return with worsening symptoms or other concerns Print Language: Greenlandic Disposition Disposition: Home, Self Care What to do if you have Problems For any increased pain, shortness of breath, bleeding, nausea or vomiting, chestpain, or any unexpected problems, contact your Primary Care Provider. Call [facility] ([phone]) or report tothe closest Emergency Room. Call 911 if necessary. 03/18/25 1248 Cosigner Signature (if applicable): CC: Dr. Chance Kolb MD ~ Signed [facility]07-10-2025 Radiology Diagnostic study note [facility] Imaging Services [address] [place], [place] [id number] Femur Min 2 Views MR#: [id number] Acct: [id number] Name: VARUNGERALDINE IRELAND Elin Rep #: [id number] : 1950 F 74 From: Jaycob Petty MD PCP: Dr. Chance Kolb MD Status: RE G ER Study:Femur Min 2 Views Date of Exam: Exam# [id number] Ordering Dr: Jenny Knapp DO PROCEDURE: FEMUR MIN 2 VIEWS 03/18/2025 REASON FOR EXAM: FALL TECHNIQUE: FEMUR MIN 2 VIEWS COMPARISON: None FINDINGS: Bones: No fracture or dislocation. Joints: Moderate degree of joint space narrowing of the left hip joint. No fracture or dislocation. Soft tissues: Soft tissues are unremarkable. Other: RAD/Femur Min 2 Views IMPRESSION: NO ACUTE FRACTURE OR DISLOCATION. Reading Location: [place] [address] CC: Dr. Chance Kolb MD; Dr. Will Knapp DO ~ Scale Model Maker: Signed [facility]07-10-2025 Radiology Diagnostic study note [facility] Imaging Services [address] [place] [address] Pelvis 1 or 2 Views MR#: [id number] Acct: [id number] Name: GERALDINE HAIRSTON Rep #: [id number] : 1950 F 74 From: Jaycob Petty MD PCP: Dr. Chance Kolb MD Status: RE G ER Study:Pelvis 1 or 2 Views Date of Exam: 03/18/25 Exam# [id number] Ordering Dr: Jenny Knapp DO PROCEDURE: PELVIS [...] No acute fracture is seen. Reading Location: [place] [address] CC: Dr. Chance Kolb MD; Dr. Will Knapp DO ~ Scale Model Maker: Signed [facility]07-10-2025 Radiology Diagnostic study note [facility] Imaging Services [address] [place], [place] [address] Spine Lumbar without Contrast MR#: [id number] Acct: [id number] Name: GERALDINE HAIRSTON Rep #: [id number] : 1950 F 74 From: Jaycob Petty MD PCP: Dr. Chance Kolb MD Status: RE G ER Study:Spine Lumbar without Contrast Date of E xam: 03/18/25 Exam# [id number] Ordering Dr: Jenny Knapp DO PROCEDURE: SPINE [...] along the anterior superior endplate of the W1jpjlculij. Reading Location: [facility]-IR[facility]1 CC: Dr. Chance Kolb MD; Dr. Will Knapp DO ~ Scale Model Maker: Signed [facility]07-05-2025 Discharge summary [facility] Medical Records Department [address] [place] [address] Emergency Department Summary 03/13/25 MR#: [id number] Acct: [id number] Name: GERALDINE HAIRSTON Rep #:[id number] : [...] last which was approximately 2 months ago. [facility] Medical History Non-pressure chronic ulcer of left [...] Patient follow commands that she was at [facility] years 2024 Skin: Warm, dry, patient [...] Return with any other concerns Print Language: Greenlandic Disposition Disposition: Home, Self Care What to do if you have Problems For any increased pain, shortness of breath, bleeding, nausea or vomiting, chestpain, or any unexpected problems, contact your Primary Care Provider. Call [facility] ([phone]) or report tothe closest Emergency Room. Call 911 if necessary. 03/13/252103 Cosigner Signature (if applicable): CC: Dr. Chance Kolb MD ~ Signed [facility]07-05-2025 Discharge summary Author Will Knapp [facility] Note Date/Time March 13, 2025 9:04p [facility] Medical Records Department [address] [place] [address] Emergency Department Summary 03/13/25 MR#: [id number] Acct: [id number] Name: GERALDINE HAIRSTON Rep #:[id number] : [...] last which was approximately 2 months ago. [facility] Medical History Non-pressure chronic ulcer of left [...] capsule 600 mg PO BID Check with [facility] 12/07/15 09/29/16 21:00 History doctor nifedipine [...] mg 9 mg PO DAILY Check with [facility] 09/30/16 Unknown History capsule,delayed,extended release doctor [...] Patient follow commands that she was at [facility] years 2024 Skin: Warm, dry, patient [...] Return with any other concerns Print Language: Greenlandic Disposition Disposition: Home, Self Care What to do if you have Problems For any increased pain, shortness of breath, bleeding, nausea or vomiting, chestpain, or any unexpected problems, contact your Primary Care Provider. Call [facility] ([phone]) or report to the closest Emergency Room. Call 911 if necessary. 03/13/252103 <Electronically signed by Will Knapp DO> Cosigner Signature (if applicable): CC: Dr. Chance Kolb MD ~ Signed [facility] Work Phone: 1(888) 594-144307-05-2025 Hospital Discharge instructionsAdditional Instructions Have your sutures removed in approximately 7 to 10 days. Watch out for signs infection such as surrounding redness or purulent drainage if this is to occur come back to the emergency department or call your primary care doctor. Do not soak your sutures do not pick at them. [facility] Work Phone: 1(281) 844-898207-03-2025 History and physical note Author Cedric Gibbons [facility] Note Date/Time March 11, 2025 1:23p m [facility] [address] [place] [address] H&P Exam - Wound Care 03/11/25 1318 MR#: [id number] Acct: [id number] Name: GERALDINE HAIRSTON Rep #:[id number] : [...] of her injury, she presented to the [facility] Emergency Department, where she was found [...] her age, though has a history of pdld-cejo-jzqzeqekiefpcuo, GERD, hypertension, hypothyroidism, and osteoporosis. She denies a history of diabetes mellitus, myocardial infarction,cerebrovascular accident, renal disease, and pulmonary disease. Her BMI is 19.5. She is . [facility] Medical History Non-pressure chronic ulcer of left [...] 600 mg PO BID Check with [facility] 12/07/15 09/29/16 21:00 History doctor [...] 9 mg PO DAILY Check with [facility] 09/30/16 Unknown History capsule,delayed,extended release doctor (Entocort [...] Date Recorded By Document 03/09/25 12:55 RUSS [id number] 03/09/25 12:57 RUSS 03/09/25 12:55 - Today's Visit Information Type of service Follow-up Visit (Physician/HOME CARE ASSISTANT ) Arrival Mode Ambulatory,Cane Patient Identification Verified [...] Date Recorded By Document 03/09/25 12:55 RUSS [id number] 03/09/25 12:57 RUSS 03/09/25 12:55 Wound Center [...] Date Recorded By Document 03/09/25 13:03 DS [id number] 03/09/25 13:07 DS 03/09/25 13:03 Wound Center [...] Recorded Date Recorded By Document 03/09/25 13:16 [facility] [id number] 03/09/25 13:17 [facility] 03/09/25 13:16 Wound Care Center Nurse 3 [...] Transportation Private Auto Charges/Coding Procedures Integumentary 111xxx-113xx: 60711 Esha subq tissue 20 sq cm/< Assessment/Plan [...] Age-related osteoporosis without current pathological fracture (12) Ugsy-gfuv-fiyrmkjsolfijor: 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 The injury occurred when thepatient's dog traumatized her leg with its nails. Immediately following her injury, the patient presented to the [facility] Emergency Department, where the avulsion flap [...] 24 minutes 03/11/25 1323 <Electronically signed by Cedrci Gibbons MD> Cosigner Signature (if applicable): CC: ~ Signed [facility] Work Phone: [phone]) 864-525807-03-2025 History and physical note [facility] [address] [place] [address] H&P Exam - Wound Care 03/11/25 1318 MR#: [id number] Acct: [id number] Name: GERALDINE HAIRSTON Rep #:[id number] : [...] of her injury, she presented to the [facility] Emergency Department, where she was found [...] her age, though has a history of lvix-uiag-jmbsvqougqlboyk, GERD, hypertension, hypothyroidism, and osteoporosis. She denies a history of diabetes mellitus, myocardial infarction,cerebrovascular accident, renaldisease, and pulmonary disease. Her BMI is 19.5. She is . [facility] Medical History Non-pressure chronic ulcer of left [...] Date Recorded By Document 03/09/25 12:55 RUSS [id number] 03/09/25 12:57 KW 03/09/25 12:55 - Today's Visit Information Type of service Follow-up Visit (Physician/HOME CARE ASSISTANT ) Arrival Mode Ambulatory,Cane Patient Identification Verified [...] Date Recorded By Document 03/09/25 12:55 RUSS [id number] 03/09/25 12:57 RUSS 03/09/25 12:55 Wound Center [...] Date Recorded By Document 03/09/25 13:03 PHILIPPE [id number] 03/09/25 13:07 DS 03/09/25 13:03 Wound Center [...] Recorded Date Recorded By Document 03/09/25 13:16 [facility] [id number] 03/09/25 13:17 [facility] 03/09/25 13:16 Wound Care Center Nurse 3 [...] Transportation Private Auto Charges/Coding Procedures Integumentary 111xxx-113xx: 24966 Esha subq tissue 20 sq cm/< Assessment/Plan [...] Age-related osteoporosis without current pathological fracture (12) Rfdh-niac-kbgxvjsktxakden: 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 The injury occurred when thepatient's dog traumatized her leg with its nails. Immediately following her injury, the patient presented to the [facility] Emergency Department, where the avulsion flap [...] Cosigner Signature (if applicable): CC: ~ Signed [facility]06-25-2025 History and physical note Author Cedric Gbibons [facility] Note Date/Time March 03, 2025 11:0 6am [facility] [address] [facility] [address] H&P Exam - Wound Care 03/03/25 1057 MR#: [id number] Acct: [id number] Name: VARUNKIMBERLY IRELANDMAMI Worthington Rep #:[id number] [...] of her injury, she presented to the [facility] Emergency Department, where she was found [...] her age, though has a history of pvmm-jzgh-yrntbxaobhdqoah, GERD, hypertension, hypothyroidism, and osteoporosis. She denies a history of diabetes mellitus, myocardial infarction,cerebrovascular accident, renal disease, and pulmonary disease. Her BMI is 19.5. She is . [facility] Medical History Non-pressure chronic ulcer of left [...] 600 mg PO BID Check with [facility] 12/07/15 09/29/16 21:00 History doctor [...] 9 mg PO DAILY Check with [facility] 09/30/16 Unknown History capsule,delayed,extended release doctor (Entocort [...] Date Recorded By Document 02/09/25 13:13 KW [id number] 02/09/25 13:18 KW Document 02/16/25 13:06 KW [id number] 02/16/25 13:16 KW Document 02/23/25 13:26 ML [id number] 02/23/25 13:36 ML Document 03/02/25 13:34 KW [id number] 03/02/25 13:40 KW 02/09/25 02/16/25 02/23/25 13:13 13:06 13:26 WC - Today's Visit Information Type of service Follow-up Visit Follow-up Visit Follow-up Visit (Physician/HOME CARE ASSISTANT (Physician/HOME CARE ASSISTANT (Physician/HOME CARE ASSISTANT ) ) ) Arrival Mode Ambulatory,Cane Ambulatory,Cane [...] Visit Information Type of service Follow-up Visit (Physician/HOME CARE ASSISTANT ) Arrival Mode Ambulatory,Cane Patient Identification Verified [...] Date Recorded By Document 02/09/25 13:13 KW [id number] 02/09/25 13:18 KW Document 02/16/25 13:06 KW [id number] 02/16/25 13:16 KW Document 02/23/25 13:26 ML [id number] 02/23/25 13:36 ML Document 03/02/25 13:34 KW [id number] 03/02/25 13:40 KW 02/09/25 02/16/25 02/23/25 13:13 [...] Amt Medium (34-66%) Large (67-100%) -Granulation Quality Datto Datto -Slough/Fibrin Yes -Necrosis Amt Medium (34-66%) Medium [...] Margin -Granulation Amt Large (67-100%) -Granulation Quality Datto -Slough/Fibrin -Necrosis Amt Small (1-33%) -Necrotic Tissue [...] Date Recorded By Document 02/09/25 13:24 DS [id number] 02/09/25 13:28 DS Document 02/16/25 13:33 DS [id number] 02/16/25 13:36 DS Document 02/23/25 13:47 DS [id number] 02/23/25 13:50 DS Document 03/02/25 14:09 DS [id number] 03/02/25 14:11 DS 02/09/25 02/16/25 02/23/25 13:24 [...] Date Recorded By Document 02/09/25 13:32 KW [id number] 02/09/25 13:33 KW Document 02/16/25 13:46 KW [id number] 02/16/25 13:46 KW Document 02/23/25 13:57 ML [id number] 02/23/25 13:58 ML Document 03/02/25 14:25 BMF [id number] 03/02/25 14:26 BMF 02/09/25 02/16/25 02/23/25 13:32 [...] of Care Provided Charges/Coding Procedures Integumentary 111xxx-113xx: 79862 Esha subq tissue 20 sq cm/< Assessment/Plan [...] Age-related osteoporosis without current pathological fracture (12) Xtuj-ardr-yvslojfenlkxahq: 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 The injury occurred when thepatient's dog traumatized her leg with its nails. Immediately following her injury, the patient presented to the [facility] Emergency Department, where the avulsion flap [...] Cosigner Signature (if applicable): CC: ~ Signed [facility] Work Phone: 1(749) 513-985206-25-2025 History and physical note [facility] [address] [place] [address] H&P Exam - Wound Care 03/03/25 1057 MR#: [id number] Acct: [id number] Name: GERALDINE HAIRSTON Rep #:[id number] : [...] of her injury, she presented to the [facility] Emergency Department, where she was found [...] her age, though has a history of zbux-zjjx-xamzyeldnhutztl, GERD, hypertension, hypothyroidism, and osteoporosis. She denies a history of diabetes mellitus, myocardial infarction,cerebrovascular accident, renaldisease, and pulmonary disease. Her BMI is 19.5. She is . [facility] Medical History Non-pressure chronic ulcer of left [...] Date Recorded By Document 02/09/25 13:13 KW [id number] 02/09/25 13:18 KW Document 02/16/25 13:06 KW [id number] 02/16/25 13:16 KW Document 02/23/25 13:26 ML [id number] 02/23/25 13:36 ML Document 03/02/25 13:34 KW [id number] 03/02/25 13:40 KW 02/09/25 02/16/25 02/23/25 13:13 13:06 13:26 - Today's Visit Information Type of service Follow-up Visit Follow-up Visit Follow-up Visit (Physician/HOME CARE ASSISTANT (Physician/HOME CARE ASSISTANT (Physician/HOME CARE ASSISTANT ) ) ) Arrival Mode Ambulatory,Cane Ambulatory,Cane [...] Visit Information Type of service Follow-up Visit (Physician/HOME CARE ASSISTANT ) Arrival Mode Ambulatory,Cane Patient Identification Verified [...] Date Recorded By Document 02/09/25 13:13 KW [id number] 02/09/25 13:18 KW Document 02/16/25 13:06 KW [id number] 02/16/25 13:16 KW Document 02/23/25 13:26 ML [id number] 02/23/25 13:36 ML Document 03/02/25 13:34 KW [id number] 03/02/25 13:40 KW 02/09/25 02/16/25 02/23/25 13:13 [...] Amt Medium (34-66%) Large (67-100%) -Granulation Quality Datto Datto -Slough/Fibrin Yes -Necrosis Amt Medium (34-66%) Medium [...] Margin -Granulation Amt Large (67-100%) -Granulation Quality Datto -Slough/Fibrin -Necrosis Amt Small (1-33%) -Necrotic Tissue [...] Date Recorded By Document 02/09/25 13:24 DS [id number] 02/09/25 13:28 DS Document 02/16/25 13:33 DS [id number] 02/16/25 13:36 DS Document 02/23/25 13:47 DS [id number] 02/23/25 13:50 DS Document 03/02/25 14:09 DS [id number] 03/02/25 14:11 DS 02/09/25 02/16/25 02/23/25 13:24 [...] Date Recorded By Document 02/09/25 13:32 KW [id number] 02/09/25 13:33 KW Document 02/16/25 13:46 KW [id number] 02/16/25 13:46 KW Document 02/23/25 13:57 ML [id number] 02/23/25 13:58 ML Document 03/02/25 14:25 [facility] [id number] 03/02/25 14:26 [facility] 02/09/25 02/16/25 02/23/25 13:32 13:46 13:57 Wound [...] of Care Provided Charges/Coding Procedures Integumentary 111xxx-113xx: 19849 Esha subq tissue 20 sq cm/< Assessment/Plan [...] Age-related osteoporosis without current pathological fracture (12) Dprf-dzqq-dtmdkikwllmwshc: 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 The injury occurred when thepatient's dog traumatized her leg with its nails. Immediately following her injury, the patient presented to the [facility] Emergency Department, where the avulsion flap [...] Cosigner Signature (if applicable): CC: ~ Signed [facility]06-24-2025 Evaluation note* Diagnosis Onset Date Resolution Status Admit Date Avulsion injury acute February 1:30pm History of ankle surgery acute March 02, 2025 1:30pm History of cataract surgery acute March 02, 2025 1:30pm History of surgery on wrist acute March 02, 2025 1:30pm Hykr-xvir-xlmgyybljyoobwh acute March 02, 2025 1:30pm S/P ORIF [...] on wrist acute March 30, 2025 1:15pm Ksyv-bnlt-xbxqkyfwcookjaa acute March 30, 2025 1:15pm S/P ORIF [...] on wrist acute May 04, 2025 1:00pm Yvqa-aqcf-sefcohclpwgucnw acute May 04, 2025 1:00pm S/P ORIF [...] on wrist acute May 25, 2025 12:45pm Ract-scmv-xrvanvriltwcqyz acute May 25, 2025 12:45pm S/P ORIF [...] internal fixation) fracture chronic May emb2024 12:45pm [facility] Work Phone: 1(311) 293-843206-18-2025 History and physical note Author Cedric Gibbons [facility] Note Date/Time February 24, 2025 11:2 3am [facility] [address] [place] [address] H&P Exam - Wound Care 02/24/25 1110 MR#: [id number] Acct: [id number] Name: GERALDINE HAIRSTON Rep #:[id number] : [...] of her injury, she presented to the [facility] Emergency Department, where she was found [...] her age, though has a history of fttt-rnhr-ftdystimyyguhtv, GERD, hypertension, hypothyroidism, and osteoporosis. She denies a history of diabetes mellitus, myocardial infarction,cerebrovascular accident, renal disease, and pulmonary disease. Her BMI is 19.5. She is . [facility] Medical History Non-pressure chronic ulcer of left [...] Date Recorded By Document 02/09/25 13:13 RUSS [id number] 02/09/25 13:18 KW Document 02/16/25 13:06 RUSS [id number] 02/16/25 13:16 KW Document 02/23/25 13:26 ML [id number] 02/23/25 13:36 ML 02/09/25 02/16/25 02/23/25 13:13 13:06 13:26 - Today's Visit Information Type of service Follow-up Visit Follow-up Visit Follow-up Visit (Physician/HOME CARE ASSISTANT (Physician/HOME CARE ASSISTANT (Physician/HOME CARE ASSISTANT ) ) ) Arrival Mode Ambulatory,Cane Ambulatory,Cane [...] Recorded Date Recorded By Document 02/09/25 13:13 [id number] 02/09/25 13:18 KW Document 02/16/25 13:06 KW [id number] 02/16/25 13:16 KW Document 02/23/25 13:26 ML [id number] 02/23/25 13:36 ML 02/09/25 02/16/25 02/23/25 13:13 [...] Amt Medium (34-66%) Large (67-100%) -Granulation Quality Datto Datto -Slough/Fibrin Yes -Necrosis Amt Medium (34-66%) Medium [...] Date Recorded By Document 02/09/25 13:24 DS [id number] 02/09/25 13:28 DS Document 02/16/25 13:33 DS [id number] 02/16/25 13:36 DS Document 02/23/25 13:47 DS [id number] 02/23/25 13:50 DS 02/09/25 02/16/2525 13:24 13:33 [...] Date Recorded By Document 02/09/25 13:32 KW [id number] 02/09/25 13:33 KW Document 02/16/25 13:46 KW [id number] 02/16/25 13:46 KW Document 02/23/25 13:57 ML [id number] 02/23/25 13:58 ML 02/09/25 02/16/25 02/23/25 13:32 [...] Provided Yes Yes Charges/Coding Procedures Integumentary 111xxx-113xx: 44335 Esha subq tissue 20 sq cm/< Assessment/Plan [...] Age-related osteoporosis without current pathological fracture (12) Vxum-imty-zlqjmgnhhvigdme: 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 The injury occurred when thepatient's dog traumatized her leg with its nails. Immediately following her injury, the patient presented to the [facility] Emergency Department, where the avulsion flap [...] Cosigner Signature (if applicable): CC: ~ Signed [facility] Work Phone: 1(957) 320-917006-18-2025 History and physical note [facility] [address] [place] [address] H&P Exam - Wound Care 02/24/25 1110 MR#: [id number] Acct: [id number] Name: GERALDINE HAIRSTON Rep #:[id number] : [...] of her injury, she presented to the [facility] Emergency Department, where she was found [...] her age, though has a history of gtmi-fpyk-sxtxkxfpftrzmuw, GERD, hypertension, hypothyroidism, and osteoporosis. She denies a history of diabetes mellitus, myocardial infarction,cerebrovascular accident, renaldisease, and pulmonary disease. Her BMI is 19.5. She is . [facility] Medical History Non-pressure chronic ulcer of left [...] Date Recorded By Document 02/09/25 13:13 KW [id number] 02/09/25 13:18 KW Document 02/16/25 13:06 KW [id number] 02/16/25 13:16 KW Document 02/23/25 13:26 ML [id number] 02/23/25 13:36 ML 02/09/25 02/16/25 02/23/25 13:13 13:06 13:26 - Today's Visit Information Type of service Follow-up Visit Follow-up Visit Follow-up Visit (Physician/HOME CARE ASSISTANT (Physician/HOME CARE ASSISTANT (Physician/HOME CARE ASSISTANT ) ) ) Arrival Mode Ambulatory,Cane Ambulatory,Cane [...] Date Recorded By Document 02/09/25 13:13 KW [id number] 02/09/25 13:18 KW Document 02/16/25 13:06 KW [id number] 02/16/25 13:16 KW Document 02/23/25 13:26 ML [id number] 02/23/25 13:36 ML 02/09/25 02/16/25 02/23/25 13:13 [...] Amt Medium (34-66%) Large (67-100%) -Granulation Quality Datto Datto -Slough/Fibrin Yes -Necrosis Amt Medium (34-66%) Medium [...] Recorded Date Recorded By Document 02/09/25 13:24 [id number] 02/09/25 13:28 DS Document 02/16/25 13:33 DS [id number] 02/16/25 13:36 DS Document 02/23/25 13:47 [id number] 02/23/25 13:50 DS 02/09/25 02/16/25 02/23/25 13:24 [...] Date Recorded By Document 02/09/25 13:32 KW [id number] 02/09/25 13:33 KW Document 02/16/25 13:46 KW [id number] 02/16/25 13:46 KW Document 02/23/25 13:57 ML [id number] 02/23/25 13:58 ML 02/09/25 02/16/25 02/23/25 13:32 [...] Provided Yes Yes Charges/Coding Procedures Integumentary 111xxx-113xx: 26239 Esha subq tissue 20 sq cm/< Assessment/Plan [...] Age-related osteoporosis without current pathological fracture (12) Nqat-znne-xanjgjspoqsmvcd: 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 The injury occurred when thepatient's dog traumatized her leg with its nails. Immediately following her injury, the patient presented to the [facility] Emergency Department, where the avulsion flap [...] Cosigner Signature (if applicable): CC: ~ Signed [facility]06-11-2025 History and physical note Author Cedric Gibbons [facility] Note Date/Time February 17, 2025 11:3 5am [facility] [address] [place] [address] H&P Exam - Wound Care 02/17/25 1127 MR#: [id number] Acct: [id number] Name: GERALDINE HAIRSTON Rep #:[id number] : [...] of her injury, she presented to the [facility] Emergency Department, where she was found [...] her age, though has a history of xxtb-thef-mgkjczrohfsapbc, GERD, hypertension, hypothyroidism, and osteoporosis. She denies a history of diabetes mellitus, myocardial infarction,cerebrovascular accident, renal disease, and pulmonary disease. Her BMI is 19.5. She is . [facility] Medical History Non-pressure chronic ulcer of left [...] Recorded Date Recorded By Document 02/09/25 13:13 [id number] 02/09/25 13:18 KW Document 02/16/25 13:06 [id number] 02/16/25 13:16 KW 02/09/25 02/16/25 13:13 13:06 - Today's Visit Information Type of service Follow-up Visit Follow-up Visit (Physician/HOME CARE ASSISTANT (Physician/HOME CARE ASSISTANT ) ) Arrival Mode Ambulatory,Cane Ambulatory,Cane Patient [...] Date Recorded By Document 02/09/25 13:13 KW [id number] 02/09/25 13:18 KW Document 02/16/25 13:06 [id number] 02/16/25 13:16 KW 02/09/25 02/16/25 13:13 13:06 [...] Amt Medium (34-66%) Large (67-100%) -Granulation Quality Datto Datto -Necrosis Amt Medium (34-66%) Medium (34-66%) -Necrotic [...] Date Recorded By Document 02/09/25 13:24 DS [id number] 02/09/25 13:28 DS Document 02/16/25 13:33 DS [id number] 02/16/25 13:36 DS 02/09/25 02/16/25 13:24 13:33 [...] Date Recorded By Document 02/09/25 13:32 KW [id number] 02/09/25 13:33 KW Document 02/16/25 13:46 KW [id number] 02/16/25 13:46 KW 02/09/25 02/16/25 13:32 13:46 [...] Provided Yes Yes Charges/Coding Procedures Integumentary 111xxx-113xx: 26340 Esha subq tissue 20 sq cm/< Assessment/Plan [...] Age-related osteoporosis without current pathological fracture (12) Pgsg-dmhg-okfajsojivjqmkg: 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 The injury occurred when thepatient's dog traumatized her leg with its nails. Immediately following her injury, the patient presented to the [facility] Emergency Department, where the avulsion flap [...] Cosigner Signature (if applicable): CC: ~ Signed [facility] Work Phone: 1(578) 288-649506-11-2025 History and physical note [facility] [address] [place] [address] H&P Exam - Wound Care 02/17/25 1127 MR#: [id number] Acct: [id number] Name: GERALDINE HAIRSTON Rep #:[id number] : [...] of her injury, she presented to the [facility] Emergency Department, where she was found [...] her age, though has a history of uvlc-ekkh-tmecxoehvpqafnh, GERD, hypertension, hypothyroidism, and osteoporosis. She denies a history of diabetes mellitus, myocardial infarction,cerebrovascular accident, renaldisease, and pulmonary disease. Her BMI is 19.5. She is . [facility] Medical History Non-pressure chronic ulcer of left [...] Start: 02/09/25 13:13 Freq: Status: Active Protocol: DANTENautalMARYLOU Activity Type Activity Date Activity User E-sign Co-sign Detail Recorded Client Recorded Date Recorded By Document 02/09/25 13:13 [email or web address] 02/09/25 13:18 Document 02/16/25 13:06 [email or web address] 02/16/25 13:16 KW 02/09/25 02/16/25 13:13 13:06 - Today's Visit Information Type of service Follow-up Visit Follow-up Visit (Physician/HOME CARE ASSISTANT (Physician/HOME CARE ASSISTANT ) ) Arrival Mode Ambulatory,Cane Ambulatory,Cane Patient [...] Date Recorded By Document 02/09/25 13:13 KW [id number] 02/09/25 13:18 KW Document 02/16/25 13:06 KW [id number] 02/16/25 13:16 KW 02/09/25 02/16/25 13:13 13:06 [...] Amt Medium (34-66%) Large (67-100%) -Granulation Quality Datto Datto -Necrosis Amt Medium (34-66%) Medium (34-66%) -Necrotic [...] Date Recorded By Document 02/09/25 13:24 DS [id number] 02/09/25 13:28 DS Document 02/16/25 13:33 DS [id number] 02/16/25 13:36 DS 02/09/25 02/16/25 13:24 13:33 [...] Date Recorded By Document 02/09/25 13:32 KW [id number] 02/09/25 13:33 KW Document 02/16/25 13:46 KW [id number] 02/16/25 13:46 KW 02/09/25 02/16/25 13:32 13:46 [...] Provided Yes Yes Charges/Coding Procedures Integumentary 111xxx-113xx: 02426 Esha subq tissue 20 sq cm/< Assessment/Plan [...] Age-related osteoporosis without current pathological fracture (12) Rtcd-fziv-feavoernkfbjeix: 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 The injury occurred when thepatient's dog traumatized her leg with its nails. Immediately following her injury, the patient presented to the [facility] Emergency Department, where the avulsion flap [...] Cosigner Signature (if applicable): CC: ~ Signed [facility]06-04-2025 History and physical note Author Cedric Gibbons [facility] Note Date/Time February 10, 2025 10:57 am [facility] [address] [place] [address] H&P Exam - Wound Care 02/10/25 1015 MR#: [id number] Acct: [id number] Name: GERALDINE HAIRSTON Rep #:[id number] : [...] of her injury, she presented to the [facility] Emergency Department, where she was found [...] her age, though has a history of rnbo-ulxa-nybtiyvkqilubbf, GERD, hypertension, hypothyroidism, and osteoporosis. She denies a history of diabetes mellitus, myocardial infarction,cerebrovascular accident, renal disease, and pulmonary disease. Her BMI is 19.5. She is . [facility] Medical History Non-pressure chronic ulcer of left [...] Recorded Date Recorded By Document 02/09/25 13:13 [id number] 02/09/25 13:18 02/09/25 13:13 - Today's Visit Information Type of service Follow-up Visit (Physician/HOME CARE ASSISTANT ) Arrival Mode Ambulatory,Cane Patient Identification Verified [...] Date Recorded By Document 02/09/25 13:13 KW [id number] 02/09/25 13:18 KW 02/09/25 13:13 Wound Center Nurse 1 #1 LT MED LE -Current Size (cm) - Length 2.2 -Current Size (cm) - Width 2.5 -Current Size (cm) - Depth 0.1 -Total Square Cm 5.50 -Date of Last Picture (Recall this 02/09/25 field) -Exudate Amt Medium -Exudate Type Serosanguineous -Wound Margin Distinct, Outline Attached -Granulation Amt Medium (34-66%) -Granulation Quality Datto -Necrosis Amt Medium (34-66%) -Necrotic Tissue Type Adherent Slough -Texture (Maylin-wound Skin Appearance) Assessed -Moisture (Maylin-wound Skin Appearance) Assessed -Color (Maylin-wound Skin Appearance) Assessed, Erythema -Temperature (Amylin-wound Skin No Abnormality Appearance) (Pt Warm) -Tenderness [...] Date Recorded By Document 02/09/25 13:24 DS [id number] 02/09/25 13:28 DS 02/09/25 13:24 Wound Center [...] Date Recorded By Document 02/09/25 13:32 RUSS [id number] 02/09/25 13:33 KW 02/09/25 13:32 Wound Care [...] Care Provided Yes Charges/Coding Procedures Integumentary 111xxx-113xx: 61467 Esha subq tissue 20 sq cm/< Assessment/Plan [...] Age-related osteoporosis without current pathological fracture (12) Rcar-venl-manrerqjgcvygrs: 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 The injury occurred when the patient's dog traumatized her leg with its nails. Immediately following her injury, the patient presented to the [facility] Emergency Department, where the avulsion flap [...] Cosigner Signature (if applicable): CC: ~ Signed [facility] Work Phone: 1(529) 360-829106-04-2025 History and physical note [facility] [address] [place] [address] H&P Exam - Wound Care 02/10/25 1015 MR#: [id number] Acct: [id number] Name: GERALDINE HAIRSTON Rep #:[id number] : [...] of her injury, she presented to the [facility] Emergency Department, where she was found [...] her age, though has a history of bzja-mtzo-egvcczsnkvpslgc, GERD, hypertension, hypothyroidism, and osteoporosis. She denies a history of diabetes mellitus, myocardial infarction,cerebrovascular accident, renaldisease, and pulmonary disease. Her BMI is 19.5. She is . [facility] Medical History Non-pressure chronic ulcer of left [...] Date Recorded By Document 02/09/25 13:13 RUSS [id number] 02/09/25 13:18 KW 02/09/25 13:13 - Today's Visit Information Type of service Follow-up Visit (Physician/HOME CARE ASSISTANT ) Arrival Mode Ambulatory,Cane Patient Identification Verified [...] Date Recorded By Document 02/09/25 13:13 KW [id number] 02/09/25 13:18 KW 02/09/25 13:13 Wound Center Nurse 1 #1 LT MED LE -Current Size (cm) - Length 2.2 -Current Size (cm) - Width 2.5 -Current Size (cm) - Depth 0.1 -Total Square Cm 5.50 -Date of Last Picture (Recall this 02/09/25 field) -Exudate Amt Medium -Exudate Type Serosanguineous -Wound Margin Distinct, Outline Attached -Granulation Amt Medium (34-66%) -Granulation Quality Datto -Necrosis Amt Medium (34-66%) -Necrotic Tissue Type [...] Date Recorded By Document 02/09/25 13:24 DS [id number] 02/09/25 13:28 DS 02/09/25 13:24 Wound Center [...] Date Recorded By Document 02/09/25 13:32 KW [id number] 02/09/25 13:33 KW 02/09/25 13:32 Wound Care [...] Care Provided Yes Charges/Coding Procedures Integumentary 111xxx-113xx: 06631 Esha subq tissue 20 sq cm/< Assessment/Plan [...] Age-related osteoporosis without current pathological fracture (12) Jtbk-fzxy-hwhjorhsjyysizo: 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 The injury occurred when the patient's dog traumatized her leg with its nails. Immediately following her injury, the patient presented to the [facility] Emergency Department, where the avulsion flap [...] Cosigner Signature (if applicable): CC: ~ Signed [facility]05-28-2025 Telephone encounter Note* Telephone Encounter - [...] advise. Thank you. Ann Marie Kelly LPN. [facility]05-28-2025 Miscellaneous Notes* Telephone Encounter - Ann [...] Ann Marie Kelly LPN. [facility] History and physical note Author Cedric Gibbons [facility] Note Date/Time February 02, 2025 4:53p m [facility] [address] [place] [address] H&P Exam - Wound Care 02/02/25 1643 MR#: [id number] Acct: [id number] Name: GERALDINE HAIRSTON Rep #:[id number] : [...] of her injury, she presented to the [facility] Emergency Department, where she was found [...] her age, though has a history of acil-qhvl-qtsdxwifaexvzvo, GERD, hypertension, hypothyroidism, and osteoporosis. She denies a history of diabetes mellitus, myocardial infarction,cerebrovascular accident, renal disease, and pulmonary disease. Her BMI is 19.5. She is . [facility] Medical History (Updated 02/02/25 @ 16:48 by [...] Date Recorded By Document 01/13/25 13:59 DL [id number] 01/13/25 14:01 DL Document 01/19/25 13:46 KW [id number] 01/19/25 13:49 KW Document 02/02/25 14:09 JF [id number] 02/02/25 14:16 JF 01/13/25 01/19/25 02/02/25 13:59 13:46 14:09 WC - Today's Visit Information Type of service Follow-up Visit Follow-up Visit Follow-up Visit (Physician/HOME CARE ASSISTANT (Physician/HOME CARE ASSISTANT (Physician/HOME CARE ASSISTANT ) ) ) Arrival Mode Ambulatory Ambulatory,Cane [...] Date Recorded By Document 01/13/25 13:59 DL [id number] 01/13/25 14:01 DL Document 01/19/25 13:46 KW [id number] 01/19/25 13:49 KW Document 02/02/25 14:09 JF [id number] 02/02/25 14:16 JF 01/13/25 01/19/25 02/02/25 13:59 [...] Recorded Date Recorded By Document 01/13/25 14:27 [id number] 01/13/25 14:29 Document 01/19/25 14:01 JF [id number] 01/19/25 14:02 Document 02/02/25 14:25 DS [id number] 02/02/25 14:30 DS 01/13/25 01/19/25 02/02/25 14:27 [...] Recorded Date Recorded By Document 01/13/25 14:38 [facility] [id number] 01/13/25 14:38 [facility] Document 01/19/25 14:10 KW [id number] 01/19/25 14:10 KW Document 02/02/25 14:45 DS [id number] 02/02/25 14:45 DS 01/13/25 01/19/25 02/02/25 14:38 [...] Care Provided Yes Charges/Coding Procedures Integumentary 111xxx-113xx: 51468 Esha subq tissue 20 sq cm/< Assessment/Plan [...] Age-related osteoporosis without current pathological fracture (12) Fnim-bdws-nvshblfpqdzenqd: 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 The injury occurred when thepatient's dog traumatized her leg with its nails. Immediately following her injury, the patient presented to the [facility] Emergency Department, where the avulsion flap [...] Cosigner Signature (if applicable): CC: ~ Signed [facility] Work Phone: 1(603) 987-516005-27-2025 History and physical note [facility] [address] [place] [address] H&P Exam - Wound Care 02/02/25 1643 MR#: [id number] Acct: [id number] Name: GERALDINE HAIRSTON Rep #:[id number] : [...] of her injury, she presented to the [facility] Emergency Department, where she was found [...] her age, though has a history of bvfe-zrsx-zldpgscpruottsx, GERD, hypertension, hypothyroidism, and osteoporosis. She denies a history of diabetes mellitus, myocardial infarction,cerebrovascular accident, renaldisease, and pulmonary disease. Her BMI is 19.5. She is . [facility] Medical History (Updated 02/02/25 @ 16:48 by [...] Date Recorded By Document 01/13/25 13:59 DL [id number] 01/13/25 14:01 DL Document 01/19/25 13:46 KW [id number] 01/19/25 13:49 KW Document 02/02/25 14:09 [id number] 02/02/25 14:16 01/13/25 01/19/25 02/02/25 13:59 13:46 14:09 - Today's Visit Information Type of service Follow-up Visit Follow-up Visit Follow-up Visit (Physician/HOME CARE ASSISTANT (Physician/HOME CARE ASSISTANT (Physician/HOME CARE ASSISTANT ) ) ) Arrival Mode Ambulatory Ambulatory,Cane [...] Date Recorded By Document 01/13/25 13:59 DL [id number] 01/13/25 14:01 DL Document 01/19/25 13:46 KW [id number] 01/19/25 13:49 KW Document 02/02/25 14:09 [id number] 02/02/25 14:16 01/13/25 01/19/25 02/02/25 13:59 13:46 [...] Recorded Date Recorded By Document 01/13/25 14:27 [id number] 01/13/25 14:29 Document 01/19/25 14:01 [id number] 01/19/25 14:02 Document 02/02/25 14:25 DS [id number] 02/02/25 14:30 DS 01/13/25 01/19/25 02/02/25 14:27 [...] Recorded Date Recorded By Document 01/13/25 14:38 [facility] [id number] 01/13/25 14:38 [facility] Document 01/19/25 14:10 KW [id number] 01/19/25 14:10 KW Document 02/02/25 14:45 DS [id number] 02/02/25 14:45 DS 01/13/25 01/19/25 02/02/25 14:38 [...] Care Provided Yes Charges/Coding Procedures Integumentary 111xxx-113xx: 75500 Esha subq tissue 20 sq cm/< Assessment/Plan [...] Age-related osteoporosis without current pathological fracture (12) Chna-aopd-pvgqachyinlyoof: 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 The injury occurred when thepatient's dog traumatized her leg with its nails. Immediately following her injury, the patient presented to the [facility] Emergency Department, where the avulsion flap [...] nutritional intake. Total time: 25 minutes 02/02/25 6093 Cosigner Signature (if applicable): CC: ~ Signed [facility]05-27-2025 Evaluation note* Diagnosis Onset Date Resolution Status Admit Date Avulsion injury acute February 02, 2025 2:00pm History of ankle surgery acute February 02, 2025 2:00pm History of cataract surgery acute February 02, 2025 2:00pm History of surgery on wrist acute February 02, 2025 2:00pm Lkqo-rtgn-rpzhhvsphwnebmg acute February 02, 2025 2:00pm S/P ORIF [...] on wrist acute March 02, 2025 1:30pm Xpfy-xaaa-anvhqmgprrqkwob acute March 02, 2025 1:30pm S/P ORIF [...] on wrist acute March 30, 2025 1:15pm Fhkm-egtw-vkrosruxndavick acute March 30, 2025 1:15pm S/P ORIF [...] on wrist acute May 04, 2025 1:00pm Zwhe-wknk-adjbyijsveubcmq acute May 04, 2025 1:00pm S/P ORIF (open reduction internal fixation) fracture acute 2024 1:00pm Traumatic open wound of lowe r leg acute May 04 1:00pm Hypothyroidism chronic April 1:00pm Non-pressure chronic ulcer o f right calf with fat layer exposed chronic [place] [address], 202 5 1:00pm Osteoporosis chronic May 04, 2025 1:00pm Raynaud phenomenon chronic May 04, 2025 1:00pm S/P ORIF (open reduction internal fixation) fracture chronic Augu st 2024 1:00pm [facility] Work Phone: 1(275) 271-334105-23-2025 NoteHNO ID: [id number] Author: MALACHI LILLY APRN.HOME CARE ASSISTANT Service: ? Author Type: Nurse Practitioner Type: [...] too hard physically. Seeing Dr. Gibbons with [facility] wound center. Geraldine also reports a persistent [...] included)...[facility]05-21-2025 NoteHNO ID: [id number] Author: MANJU NG MA Service: ? Author Type: Commercial Lender Type: Progress Notes Filed: 01/27/2025 09:24 Note [...] or unnecessary to reach patient: Left message [employer] message sent HCC related Navigation Signature: Manju Ng MA January 27, 2025 9:23 [facility]05-21-2025 NotePatient Outreach (NETNAV) GERALDINE HAIRSTON ([id number]) 1950 F Date Time Provider Department 01/27/25 [...] History and physical note Author Cedric Gibbons [facility] Note Date/Time January 19, 2025 7:13p m [facility] [address] [place] [address] H&P Exam - Wound Care 01/19/25 1900 MR#: [id number] Acct: [id number] Name: GERALDINE HAIRSTON Rep #:[id number] : [...] of her injury, she presented to the [facility] Emergency Department, where she was found [...] her age, though has a history of vkmm-wxiv-nyfhdyzeohtftwv, GERD, hypertension, hypothyroidism, and osteoporosis. She denies a history of diabetes mellitus, myocardial infarction,cerebrovascular accident, renal disease, and pulmonary disease. Her BMI is 19.5. She is . [facility] Medical History Traumatic open wound of lower [...] Date Recorded By Document 01/13/25 13:59 DL [id number] 01/13/25 14:01 DL Document 01/19/25 13:46 KW [id number] 01/19/25 13:49 KW 01/13/25 01/19/25 13:59 13:46 - Today's Visit Information Type of service Follow-up Visit Follow-up Visit (Physician/HOME CARE ASSISTANT (Physician/HOME CARE ASSISTANT ) ) Arrival Mode Ambulatory Ambulatory,Cane Transfer [...] Date Recorded By Document 01/13/25 13:59 DL [id number] 01/13/25 14:01 DL Document 01/19/25 13:46 KW [id number] 01/19/25 13:49 KW 01/13/25 01/19/25 13:59 13:46 [...] Recorded Date Recorded By Document 01/13/25 14:27 [id number] 01/13/25 14:29 Document 01/19/25 14:01 JF [id number] 01/19/25 14:02 JF 01/13/25 01/19/25 14:27 14:01 [...] Recorded Date Recorded By Document 01/13/25 14:38 [facility] [id number] 01/13/25 14:38 [facility] Document 01/19/25 14:10 KW [id number] 01/19/25 14:10 KW 01/13/25 01/19/25 14:38 14:10 [...] Charges/Coding Visit Charges Office Visits / Consults: 23661 OV L3 Est 20min Assessment/Plan Assessment/Plan (1) [...] Age-related osteoporosis without current pathological fracture (11) Alvr-eeyv-jkamjrpjpnjvjcu: 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 The injury occurred when thepatient's dog traumatized her leg with its nails. Immediately following her injury, the patient presented to the [facility] Emergency Department, where the avulsion flap [...] Cosigner Signature (if applicable): CC: ~ Signed [facility] Work Phone: 1(210) 656-696405-13-2025 History and physical note [facility] [address] [place] [address] H&P Exam - Wound Care 01/19/25 1900 MR#: [id number] Acct: [id number] Name: GERALDINE HAIRSTON Rep #:[id number] : 1950 74 From: Cedric Worthington PCP: Dr. Chance Kolb MD [facility] Location: History of Present Illness Date of Service: 01/19/25 Chief Complaint: Traumatic avulsion injury of the left medial calf History of Wound: This is a 74-year-old female who sustained a traumatic injury to her left medial calf on January 01, 2025. At the time of her injury, she presented to the [facility] Emergency Department, where she was found [...] her age, though has a history of ivfm-ajau-kzvyctjjuwjtxsn, GERD, hypertension, hypothyroidism, and osteoporosis. She denies a history of diabetes mellitus, myocardial infarction,cerebrovascular accident, renaldisease, and pulmonary disease. Her BMI is 19.5. She is . [facility] Medical History Traumatic open wound of lower [...] Date Recorded By Document 01/13/25 13:59 DL [id number] 01/13/25 14:01 DL Document 01/19/25 13:46 KW [id number] 01/19/25 13:49 KW 01/13/25 01/19/25 13:59 13:46 WC - Today's Visit Information Type of service Follow-up Visit Follow-up Visit (Physician/HOME CARE ASSISTANT (Physician/HOME CARE ASSISTANT ) ) Arrival Mode Ambulatory Ambulatory,Cane Transfer [...] Date Recorded By Document 01/13/25 13:59 DL [id number] 01/13/25 14:01 DL Document 01/19/25 13:46 KW [id number] 01/19/25 13:49 01/13/25 01/19/25 13:59 13:46 Wound [...] Recorded Date Recorded By Document 01/13/25 14:27 [id number] 01/13/25 14:29 Document 01/19/25 14:01 [id number] 01/19/25 14:02 01/13/25 01/19/25 14:27 14:01 Wound [...] Recorded Date Recorded By Document 01/13/25 14:38 [facility] [id number] 01/13/25 14:38 [facility] Document 01/19/25 14:10 [id number] 01/19/25 14:10 01/13/25 01/19/25 14:38 14:10 Wound [...] Charges/Coding Visit Charges Office Visits / Consults: 60534 OV L3 Est 20min Assessment/Plan Assessment/Plan (1) [...] Age-related osteoporosis without current pathological fracture (11) Mhds-xlgk-onrrnyjueulaaws: 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 The injury occurred when thepatient's dog traumatized her leg with its nails. Immediately following her injury, the patient presented to the [facility] Emergency Department, where the avulsion flap [...] Cosigner Signature (if applicable): CC: ~ Signed [facility]05-08-2025 History and physical note Author Cedric Gibbons [facility] Note Date/Time January 14, 2025 8:19pm [facility] [address] [place] [address] H&P Exam - Wound Care 01/14/252007 MR#: [id number] Acct: [id number] Name: GERALDINE HAIRSTON Rep #:[id number] : [...] of her injury, she presented to the [facility] Emergency Department, where she was found [...] her age, though has a history of rjvi-fczg-migmlfkuztmoxqn, GERD, hypertension, hypothyroidism, and osteoporosis. She denies a history of diabetes mellitus, myocardial infarction,cerebrovascular accident, renal disease, and pulmonary disease. Her BMI is 19.5. She is . [facility] Medical History Traumatic open wound of lower [...] Date Recorded By Document 01/13/25 13:59 DL [id number] 01/13/25 14:01 DL 01/13/25 13:59 - Today's Visit Information Type of service Follow-up Visit (Physician/HOME CARE ASSISTANT ) Arrival Mode Ambulatory Transfer Assistance None [...] Date Recorded By Document 01/13/25 13:59 DL [id number] 01/13/25 14:01 DL 01/13/25 13:59 Wound Center [...] Recorded Date Recorded By Document 01/13/25 14:27 [id number] 01/13/25 14:29 01/13/25 14:27 Wound Center Nurse [...] Recorded Date Recorded By Document 01/13/25 14:38 [facility] [id number] 01/13/25 14:38 [facility] 01/13/25 14:38 Wound Care Center Nurse 3 [...] Charges/Coding Visit Charges Office Visits / Consults: 73891 OV L3 Est 20min Assessment/Plan Assessment/Plan (1) [...] Age-related osteoporosis without current pathological fracture (11) Jeph-gqhz-ahpbfqymcikdqfv: 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 The injury occurred when thepatient's dog traumatized her leg with its nails. Immediately following her injury, the patient presented to the [facility] emergency Department, where the avulsion flap [...] Cosigner Signature (if applicable): CC: ~ Signed [facility] Work Phone: 1(823) 816-938505-08-2025 History and physical note [facility] [address] [place] [address] H&P Exam - Wound Care 01/14/252007 MR#: [id number] Acct: [id number] Name: RONALDOGERALDINE BRITO Elin Rep #:[id number] : 1950 74 From: Cedric Worthington PCP: Dr. Chance Kolb MD Status:[facility] Location: History of Present Illness Date of Service: 01/13/25 Chief Complaint: Traumatic avulsion injury of the left medial calf History of Wound: This is a 74-year-old female who sustained a traumatic injury to her left medial calf on January 01, 2025. At the time of her injury, she presented to the [facility] Emergency Department, where she was found [...] her age, though has a history of hhua-yjwa-lprzllamarixzmb, GERD, hypertension, hypothyroidism, and osteoporosis. She denies a history of diabetes mellitus, myocardial infarction,cerebrovascular accident, renaldisease, and pulmonary disease. Her BMI is 19.5. She is . [facility] Medical History Traumatic open wound of lower [...] Date Recorded By Document 01/13/25 13:59 CHARY [id number] 01/13/25 14:01 DL 01/13/25 13:59 - Today's Visit Information Type of service Follow-up Visit (Physician/HOME CARE ASSISTANT ) Arrival Mode Ambulatory Transfer Assistance None [...] Recorded Date Recorded By Document 01/13/25 13:59 [id number] 01/13/25 14:01 DL 01/13/25 13:59 Wound Center [...] Recorded Date Recorded By Document 01/13/25 14:27 [id number] 01/13/25 14:29 01/13/25 14:27 Wound Center Nurse [...] Recorded Date Recorded By Document 01/13/25 14:38 [facility] [id number] 01/13/25 14:38 [facility] 01/13/25 14:38 Wound Care Center Nurse 3 [...] Charges/Coding Visit Charges Office Visits / Consults: 14658 OV L3 Est 20min Assessment/Plan Assessment/Plan (1) [...] Age-related osteoporosis without current pathological fracture (11) Yiul-bmka-hcpnqsgipmdljws: 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 The injury occurred when thepatient's dog traumatized her leg with its nails. Immediately following her injury, the patient presented to the [facility] emergency Department, where the avulsion flap [...] Cosigner Signature (if applicable): CC: ~ Signed [facility]04-30-2025 Evaluation note* Diagnosis Onset Date Resolution Status Admit Date Avulsion injury acute December 1:39pm History of ankle surgery acute January 06, 2025 1:39pm History of cataract surgery acute January 06, 2025 1:39pm History of surgery on wrist acute January 06, 2025 1:39pm Ajfu-wzof-mchhjewzsylkqbd acute January 06, 2025 1:39pm S/P ORIF [...] on wrist acute February 02, 2025 2:00pm Dpwx-paon-wbaugmuqnsecfun acute February 02, 2025 2:00pm S/P ORIF [...] fixation) fracture chronic February 02, 2025 2:00pm [facility] Work Phone: 1(117) 540-843304-30-2025 Evaluation note* Diagnosis Onset Date Resolution Status Admit Date Avulsion injury acute December 1:39pm History of ankle surgery acute January 06, 2025 1:39pm History of cataract surgery acute January 06, 2025 1:39pm History of surgery on wrist acute January 06, 2025 1:39pm Sqfh-jwya-zynihovnpfldeyr acute January 06, 2025 1:39pm S/P ORIF [...] on wrist acute February 02, 2025 2:00pm Ttjs-cstq-fhmfgjwmqdapcnp acute February 02, 2025 2:00pm S/P ORIF [...] on wrist acute March 02, 2025 1:30pm Gsgc-zohv-nobrvrocvncdkhx acute March 02, 2025 1:30pm S/P ORIF [...] fixation) fracture chronic March 02, 2025 1:30pm [facility] Work Phone: 1(989) 149-797304-30-2025 Evaluation note* Diagnosis Onset Date Resolution Status Admit Date Avulsion injury acute December 1:39pm History of ankle surgery acute January 06, 2025 1:39pm History of cataract surgery acute January 06, 2025 1:39pm History of surgery on wrist acute January 06, 2025 1:39pm Cxzg-qcpx-fmekntohvsvybmu acute January 06, 2025 1:39pm S/P ORIF [...] on wrist acute February 02, 2025 2:00pm Llhb-iibp-iusvliwoohozvbl acute February 02, 2025 2:00pm S/P ORIF [...] on wrist acute March 02, 2025 1:30pm Clzw-zaxo-ccqzkppkbevveud acute March 02, 2025 1:30pm S/P ORIF [...] on wrist acute March 09, 2025 12:44pm Wlyi-npfe-qeqoxyemppdmfcj acute March 09, 2025 12:44pm S/P ORIF [...] fixation) fracture chronic March 09, 2025 12:44pm [facility] Work Phone: 1(654) 425-919004-30-2025 Evaluation note* Diagnosis Onset Date Resolution Status Admit Date Avulsion injury acute December 1:39pm History of ankle surgery acute January 06, 2025 1:39pm History of cataract surgery acute January 06, 2025 1:39pm History of surgery on wrist acute January 06, 2025 1:39pm Dzbf-rtnn-avwmvxaquuxgpbb acute January 06, 2025 1:39pm S/P ORIF [...] on wrist acute February 02, 2025 2:00pm Zcwz-eyad-xvvdwcvbghoyyyi acute February 02, 2025 2:00pm S/P ORIF [...] on wrist acute March 02, 2025 1:30pm Herf-gvya-dhsmqwnwvclxvda acute March 02, 2025 1:30pm S/P ORIF [...] on wrist acute March 30, 2025 1:15pm Nkst-gxkp-rotxuiakbfpxaim acute March 30, 2025 1:15pm S/P ORIF [...] fixation) fracture chronic March 30, 2025 1:15pm [facility] Work Phone: 1(484) 174-189801-31-2025 Telephone encounter Note* Telephone Encounter - Beth Linda LPN - 2024 4:19 PM EST Patient notified of providers message and verbalized understanding. [facility]01-31-2025 Miscellaneous Notes* Telephone Encounter - Beth [...] Ann Marie Wylie RN documented in this encounterTrihealth Good Samaritan [facility]01-31-2025 Telephone encounter Note * Telephone Encounter - Nguyễn Stringer APRN.CNS - 2024 3:52 PM EST Urinalysis shows bacteria no other abnormal findings. If still with dysuria urgency frequency can send the antibiotic. Culture not completed. Rx macrobid x 7 days to [facility]. [facility]01-31-2025 Telephone encounter Note* Telephone Encounter - Ann Marie Wylie RN - 2024 12:55 PM EST Patient calls and states that she has been having issues with frequent urination. Patient lower abdomen discomfort. Patient came into lab on 10/06/2024 and did urinalysis. Patient asking if provider can advise on this? Please review and advise, Ann Marie Wylie RN [facility]12-09-2024 History of Present illness Narrative* Aicha [...] PATIENT PRESENTS WITH AN IMPLANTABLE OR ATTACHED METALLIC YARN SLITTING MACHINE OPERATOR: No RADIOLOGY DEPARTMENT: Bone Density PERIPHERAL IV DATA: Not applicable SIGNED BY: DENISE Matt) August 17, 2024 11:03 AM documented in this encounterTrihealth Good Samar[facility] Hospital12-09-2024 NoteHNO ID: [id number] Author: AICHA GONZALEZ RT (R) Service: ? [...] PATIENT PRESENTS WITH AN IMPLANTABLE OR ATTACHED METALLIC YARN SLITTING MACHINE OPERATOR: No RADIOLOGY DEPARTMENT: Bone Density PERIPHERAL IV DATA: Not applicable SIGNED BY: SOLANGE MattR) August 17, 2024 11:03 [facility]12-06-2024 NoteHNO ID: [id number] Author: BAILEY MADRIGAL, PT Service: ? Author [...] 08/14/2024 and treatment included: Therapeutic exercise and Self-usp management. Goals for Episode of Care: established [...] program as noted above with an (*). Self-Fpc Management: 1: advised for pt. to conintue [...] and treatment included: Therapeutic exercise and Self- usp management. Goals for Episode of Care: established [...] program as noted above with an (*). Self-Fpc Management: 1: advised for pt. to conintue [...] 1308 Bailey Madrigal PT documented in this encounterTrihealth Good Sam[facility] Hospital12-04-2024 Telephone encounter Note * Telephone Encounter - Courtney Patrick RN - 08/12/2024 4:00 PM EST Addressed in My Chart encounter 08/07/24. Courtney Patrick RN [facility]12-04-2024 Miscellaneous Notes* Telephone Encounter - Courtney [...] urgent care. Please review and advise further. Liyha Layne LPN documented in this encounterTrihealth Good Sam[facility]11-29-2024 Telephone encounter Note * Telephone Encounter - Aquiles Jackson MA - 08/07/2024 3:49 PM EST Left message to call office. 08/07/2024 3:49 PM [facility]11-29-2024 Telephone encounter Note* Telephone Encounter - Nguyễn Stringer APRN.KOFI - 08/07/2024 3:23 PM EST Switch to Bactrrim. Recheck urine order is already placed. She can come in for recheck / OV if she would like, [facility]11-29-2024 History of Present illness Narrative* Bailey Madrigal, PT - 08/07/2024 12:57 PM EST Program_ID:[id number] Access Code: [email or web address] URL: [email or web address] Date: 08-07-2024 Prepared By: Bailey Madrigal Program [...] 1305 Bailey Madrigal PT documented in this encounterTrihealth Good Samaritan Hospital11-29-2024 NoteHNO ID: [id number] Author: BAILEY MADRIGAL PT Service: ? Author [...] Session Stop Time : 1305 Bailey Madrigal, [facility]11-29-2024 Telephone encounter Note * Telephone Encounter - Liyah Layne LPN - 08/07/2024 11:20 AM EST patient is still c/o urinary frequency and pressure to have to go. Patient will complete antibiotics today for UTI. PATIENT is wanting to know if she needs checked again? Patient was treated for this UTI in urgent care. Please review and advise further. Liyah Layne LPN [facility]11-18-2024 History of Present illness Narrative* Bailey Madrigal, PT - 07/27/2024 3:56 PM EST Program_ID:[id number] Access Code: [email or web address] URL: [email or web address] Date: 07-27-2024 Prepared By: Bailey Madrigal Program [...] and function . Patient education as noted. Self-Fpc Management: 1: discussed that symptoms resolving with [...] 1603 Bailey Madrigal PT documented in this encounterTrihealth Good Samaritan Hospital11-18-2024 NoteHNO ID: [id number] Author: BAILEY MADRIGAL PT Service: ? Author [...] and function . Patient education as noted. Self-Fpc Management: 1: discussed that symptoms resolving with [...] Session Stop Time : 1603 Bailey Madrigal, [facility]11-18-2024 History of Present illness Narrative* Nguyễn Stringer APRN.DESK CLERKS SUPERVISOR - 07/27/2024 12:32 PM EST SUBJECTIVE: [...] MACROCRYSTAL 100 MG ORAL CAP Nguyễn Stringer, AGENCY SALES MANAGEMENT ASSISTANT.DESK CLERKS SUPERVISOR Medical Decision Making: Problems: Low: Acute, uncomplicated illness or injury Data: Unique test(s) ordered: 1 Risk: Moderate: Drug management Medical Decision Making Level: 3 - Low documented in this encounterTrihealth Good Samaritan Hospital11-18-2024 NoteHNO ID: [id number] Author: NGUYỄN STRINGER APRN.DESK CLERKS SUPERVISOR Service: ? Author Type: Nurse Specialist [...] included)...[facility]11-16-2024 NoteHNO ID: [id number] Author: CARMEN MIRANDA APRN.HOME CARE ASSISTANT Service: ? Author Type: Nurse Practitioner Type: [...] IBS and sees a GI provider in [place]. She states that she recently started physical [...] Right 02/10/2015 right wrist fracture ORIF (Dr. Guererro) PAST SURGICAL HISTORY OF Right 11/2015 Hip [...] History of Present illness Narrative* Carmen Miranda, MIMI.[facility] - 07/25/2024 11:39 AM EST Subjective [...] IBS and sees a GI provider in [place]. She states that she recently started physical [...] three times daily as needed. Prescribing Dr: Keeyl Moore MD DAILY MULTIVITAMIN TAB IMODIUM A-D [...] with plan and verbalizesunderstanding. Stephanie Garcia, Student ADMINISTRATIVE ASSISTANT RECEPTIONIST I have personally seen and examined the patient and performed the medical- decision making components. I have reviewed the Advanced Practice Registered Nurse (AGENCY SALES MANAGEMENT ASSISTANT) student's documentation and verified the findings in the note as written. Any additions or changes are noted in bold/italics. Carmen Miranda APRN.HOME CARE ASSISTANT documented in this encounterTrihealth Good Samaritan Hospital11-16-2024 Instructions* Patient Instructions* Stephanie Garcia - [...] with plan and verbalizesunderstanding. Stephanie Garcia, Student ADMINISTRATIVE ASSISTANT RECEPTIONIST Complete dose of antibiotic Follow-up with PCP in 2-3 days Monitor for signs of infection, fever, increased pain, nausea and or vomiting in the presence of pain. documented in this encounterTrihealth Good Samar[facility]11-08-2024 History of Present illness Narrative* Bailey Madrigal, CLAUDIA - 07/17/2024 1:36 PM EST Program_ID:[id number] Access Code: [email or web address] URL: [email or web address] Date: 07-17-2024 Prepared By: Bailey Madrigal Program [...] Planned: 6 Planned Treatment Interventions: Therapeutic exercise (43720), Manual therapy (18052), Therapeutic activities (64875), Self-usp management (29445), Gait Training (53078), Neuromuscular re-education (35935) PLAN FOR NEXT VISIT: assess symmptom response [...] Extension: Moderate limitation, Produces Lumbar R Side Anthony: Major limitation, Produces Lumbar L Side Anthony: Major limitation, Produces Lumbar R Side-Bend: Moderate [...] Demonstration TREATMENT: PT Treatment Interventions: Therapeutic Exercise, Self-Fpc Management Evaluation Therapeutic Exercise: 1: *Access Code: [email or web address] URL: [email or web address] Date: 07/17/2024 Prepared by: Bailey Talamantes Exercises [...] and function . Patient education as noted. Self-Fpc Management: 1: discussed directional preference 2: discussed [...] 1350 Bailey Madrigal PT documented in this encounterTrihealth Good Sam[facility]11-08-2024 NoteHNO ID: [id number] Author: BAILEY MADRIGAL PT Service: ? Author [...] Planned: 6 Planned Treatment Interventions: Therapeutic exercise (37227), Manual therapy (83506), Therapeutic activities (17785), Self-usp management (95355), Gait Training (66671), Neuromuscular re-education (42834) PLAN FOR NEXT VISIT: assess symmptom response [...] not included. This note was created using Webspyter. Subjective Geraldine Hairston is a 73 year [...] ityears ago. She recalls a fall [place] [employer], resulting in a femur fracture, which occurred [...] for spine exercises and balance improvement at [facility]. - Educated on red flag symptoms such [...] (Z79.899) Chance Kolb MD documented in this encounterTrihealth Good Samar[facility]09-06-2024 Telephone encounter Note * Telephone Encounter - Deidra Kohler RN - 05/15/2024 2:03 PM EDT Patient calling with question regarding recent prescription. Information provided. Deidra Kohler RN [facility]09-06-2024 Miscellaneous Notes* Telephone Encounter - Deidra Kohler RN - 05/15/2024 2:03 PM EDT Patient calling with question regarding recent prescription. Information provided. Deidra Kohler RN documented in this encounterTrihealth Good Samar[facility]09-05-2024 History of Present illness Narrative* Nguyễn Stringer, MIMI.DESK CLERKS SUPERVISOR - 05/14/2024 3:58 PM EDT SUBJECTIVE: [...] Level: 3 - Low documented in this encounterTrihealth Good Samaritan Hospital09-05-2024 Instructions* Patient Instructions* Nguyễn Stringer APRN.CNS - 05/14/2024 3:27 PM EDT Take naproxen morning and evening for the next few days then just as needed thereafter. Take with food. documented in this encounterTrihealth Good Samaritan Hospital07-22-2024 Note* Letter - Coordinator, Mammography - 03/30/2024 9:01 AM EDT March 30, 2024 PID: [id number] Geraldine Hairston [facility] [place] [address] Dear Ms. Hairston, We are pleased to [...] report will be kept on file at [facility] as part of your permanent medical record and are available for your continuing care. Thank you for allowing us to help in meeting your health care needs. Sincerely, Dr. Cope Interpreting Radiologist [facility] (Normal over 40) [facility]07-22-2024 Miscellaneous Notes* Letter - Coordinator, Mammography - 03/30/2024 9:01 AM EDT March 30, 2024 PID: [id number] Geraldine Pacheco Yovanny [facility] [place] [address] Dear Ms. Hairston, We are pleased to [...] report will be kept on file at [facility] as part of your permanent medical record and are available for your continuing care. Thank you for allowing us to help in meeting your health care needs. Sincerely, Dr. Cope Interpreting Radiologist [facility] (Normal over 40) documented in this encounterTrihealth Good Samaritan Hospital07-19-2024 History of Present illness Narrative* Celia [...] PATIENT PRESENTS WITH AN IMPLANTABLE OR ATTACHED METALLIC YARN SLITTING MACHINE OPERATOR: No RADIOLOGY DEPARTMENT: Mammography PERIPHERAL IV DATA: Not applicable SIGNED BY: RT Cristian(R) March 27, 2024 10:26 AM documented in this encounterTrihealth Good Samaritan [facility]05-02-2024 History of Present illness Narrative* Thea Vail MD - 01/09/2024 10:30 AM EDT Images from the original note were not included. [facility] [address] [place] [address] Dept: [phone] Dept 01/09/2024 Chief Complaint Patient presents with [...] Vail MD Hand and Upper Extremity Surgery [facility] Department of Orthopaedics and Sports Medicine 01/09/2024 at 10:30 AM (Please note that portions of this note may have been completed with a voice recognition program. Efforts were made to edit the dictations but occasionally words are mis-transcribed.) documented in this encounterSCleveland Clinic [id number] Telephone encounter Note* Telephone Encounter - Cheri Greco - 01/06/2024 10:29 AM EDT Spoke to patient and scheduled appointment to discuss surgery details. 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 * Telephone Encounter - Cheri Greco - 08/29/2023 11:01 AM EST Records request sent to [facility] for Operative reports. Will have Yared review and advise on surgery orders once reports received. documented in this encounterSCleveland Clinic [id number] Telephone encounter Note* Telephone Encounter - Cheri Greco - 01/06/2024 10:22 AM EDT Left message informing patient with number to call back with additional questions or concerns or toschedule surgery. [facility] [id number] Telephone encounter Note* Telephone Encounter - Grace Wilson LPN - 01/03/2024 4:46 PM EDT Patient had not tried any tylenol or ibuprofen. She would like to try this first and if no improvement come Saturday or Saturday she will call back for a script for prednisone. [facility]04-26-2024 Miscellaneous Notes* Telephone Encounter - Grace [...] over my chart message from Malachi Lilly ADMINISTRATIVE ASSISTANT RECEPTIONIST with understanding. Patient said she has constant pain lower back rates at a 5 to 6. She has been using ice packs. She was asking anything else ADMINISTRATIVE ASSISTANT RECEPTIONIST wants me to be doing? Patient phone number is [phone] or can my chart message her please. Had gone over notes from office visit with her also. documented in this encounterTrihealth Good Samaritan Hospital04-26-2024 Telephone encounter Note * Telephone Encounter - Malachi Lilly APRN.CNP - 01/03/2024 4:39 PM EDT Please check and see if she is taking any tylenol or ibuprofen? IS she opposed to trying a steroid?We could try that to reduce her pain. [facility]04-26-2024 Telephone encounter Note* Telephone Encounter - Laura Sterling LPN - 01/03/2024 10:16 AM EDT Patient calling asking for her results. Went over my chart message from Malachi Lilly ADMINISTRATIVE ASSISTANT RECEPTIONIST with understanding. Patient said she has constant pain lower back rates at a 5 to 6. She has been using ice packs. She was asking anything else ADMINISTRATIVE ASSISTANT RECEPTIONIST wants me to be doing? Patient phone number is [phone] or can my chart message her please. Had gone over notes from office visit with her also. [facility]04-23-2024 Telephone encounter Note* Telephone Encounter - [...] ensure we are on the same page. [employer] Phone: 1(489) 935-334704-23-2024 History of Present illness Narrative* Valorie Chauhan [...] PATIENT PRESENTS WITH AN IMPLANTABLE OR ATTACHED METALLIC YARN SLITTING MACHINE OPERATOR: No RADIOLOGY DEPARTMENT: General X-ray: Exam(s) Completed: Spine X-Ray(s): Lumbar AP / LAT / L5-S1 PERIPHERAL IV DATA: Not applicable SIGNED BY: RT Chad(R) December 31, 2023 3:13 PM documented in this encounterTrihealth Good Samaritan [facility]04-23-2024 History of Present illness Narrative* Malachi Lilly APRN.HOME CARE ASSISTANT - 12/31/2023 2:24 PM EDT SUBJECTIVE Geraldine Hairston is a 73 year old female here today for a check up on her medical problems. Chief Complaint Patient presents with: F/U 6 months Back Pain: started after a fall on Saturday with a dull achy feeling. HPI Geraldine Hairston is a 73 year old female. She is an established patient of Chance Klob MD. She is here today for a [...] - 08/01/2010 Comment: Was seen by , logistics analytics manager, [place]. Started on PPI for GERD with good [...] appointment.. LUIS FELIPE Grijalva documented in this encounterTrihealth Good [facility]04-19-2024 Telephone encounter Note * Telephone Encounter - Cheri Greoc - 12/27/2023 12:23 PM EDT Patient called [...] if its necessary to proceed with surgery. 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 * Telephone Encounter - Cheri Greco - 08/29/2023 11:01 AM EST Records request sent to [facility] for Operative reports. Will have [facility] review and advise on surgery orders once reports received. 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 * Telephone Encounter - Cheri Greco - 08/29/2023 11:01 AM EST Records request sent to [facility] for Operative reports. Will have Yared review and advise on surgery orders once reports received. documented in this [facility]01-19-2024 Telephone encounter Note* Telephone Encounter - Cheri Greco - 09/27/2023 3:21 PM EST Spoke to patient, she is recovering from rib fractures and will call when ready to proceed with surgery. [facility] [id number] Telephone encounter Note* Telephone Encounter - Cheri Greco - 09/23/2023 3:36 PM EST Left message for patient to call back to schedule surgery. 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 [facility] [id number] History of Present illness Narrative* Ena Cardoso [...] 03, 2023 1:29 PM documented in this encounterTrihealth Good Samaritan Hospital12-21-2023 Telephone encounter Note * Telephone Encounter - Cheri Greco - 08/29/2023 11:01 AM EST Records request sent to [facility] for Operative reports. Will have Yared review and advise on surgery orders once reports received. [facility] [id number] History of Present illness Narrative* Thea Vail MD - 08/29/2023 10:15 AM EST Images from the original note were not included. [facility] [address] [place] [address] Dept: [phone] Dept 08/29/2023 Chief Complaint Patient presents with [...] Hairston regarding the natural history, etiology, and watermelon inspector consequences of her condition. We discussed both [...] Follow-up: Geraldine will followup with my physician escrow assistant Rossy Holliday PA-C post operatively. She knows to call the office with any questions or concerns in the interim. Future Imaging: NONE Thea Yared, MD Hand and Upper Extremity Surgery [facility] Department of Orthopaedics and Sports Medicine 08/29/2023 at 11:09 AM (Please note that portions of this note may have been completed with a voice recognition program. Efforts were made to edit the dictations but occasionally words are mis-transcribed.) documented in this [facility]12-04-2023 History of Present illness Narrative* Thea Vail MD - 08/12/2023 2:15 PM EST Images from the original note were not included. [facility] [address] [place] [id number] Dept: [phone] Dept 08/12/2023 Chief Complaint Patient presents with [...] Vail MD Hand and Upper Extremity Surgery [facility] Department of Orthopaedics and Sports Medicine 08/12/2023 at 2:13 PM (Please note that portions of this note may have been completed with a voice recognition program. Efforts were made to edit the dictations but occasionally words are mis-transcribed.) documented in this [facility]11-24-2023 Miscellaneous Notes* Telephone Encounter - Grace Wilson LPN - 08/02/2023 3:49 PM EST PATIENT NOTIFIED OF SAME. * Telephone Encounter - Malachi Lilly APRN.CNP - 08/02/2023 3:25 PM EST Please let Geraldine know her urine culture did confirm infection and the Macrobid is a good option, it is effective for the infection. documented in this encounterTri[facility]11-22-2023 History of Present illness Narrative* Malachi [...] - 08/01/2010 Comment: Was seen by , logistics analytics manager, Ponce. Started on PPI for GERD with good [...] appointment.. Malachi Lilly APRN-KELLY documented in this encounterTrihealth [facility]11-22-2023 Instructions* Patient Instructions* Grace Wilson LPN [...] treated. A physician, nurse practitioner or physician escrow assistant may treat with a short course [...] women if symptoms resolve. documented in this encounterTrihealth [facility] Hospital10-13-2023 Instructions* Patient Instructions* Chance Kolb MD [...] anemia be an issue. documented in this encounterTrihealth [facility] Sam[facility] Hospital10-13-2023 History of Present illness Narrative* Chance Kolb MD - 06/21/2023 4:59 PM EDT This note was created using Webspyter. Subjective Geraldine Hairston is a 72 year [...] indicated. Chance Kolb MD documented in this encounterTrihealth Good Samar[facility] Hospital08-28-2023 History of Present illness Narrative* Malachi Lilly APRN.HOME CARE ASSISTANT - 05/06/2023 11:18 AM EDT Images from the original note were not included. SUBJECTIVE Geraldine Hairston is a 72 year old female here today for a check up on her medical problems. Chief Complaint Patient presents with: ER F/U: [facility] 04/29/23. Sutures need removed from a dog nail abrasion HPI Geraldine Hairston is a 72 year old female established patient of Dr. Kolb. She presents today for ER follow up. Seen in ER at [facility] on 04/29/2023 for an abrasion. Wound was [...] - 08/01/2010 Comment: Was seen by , logistics analytics manager, Ponce. Started on PPI for GERD with good [...] which included preparing to see the patient, acvf-[id number] patient care, completing clinical documentation, obtaining and/or [...] appointment.. Malachi Lilly APRN-KELLY documented in this encounterTrihealth [facility] Sam[facility]07-19-2023 Miscellaneous Notes* Letter - Coordinator, Mammography - 03/27/2023 12:52 PM EDT March 28, 2023 PID: [id number] Geraldine Hairston [facility] [place] [address] Dear Ms. Hairston, We are pleased to [...] report will be kept on [facility] at [facility] as part of your permanent medical record and are available for your continuing care. Thank you for allowing us to help in meeting your health care needs. Sincerely, Dr. Smith Interpreting Radiologist [facility] (Normal over 40) documented in this encounterTrihealth Good Samaritan Hospital07-18-2023 Instructions* Patient Instructions* Malachi Lilly APRN.CNP [...] bump on your thumb. documented in this encounterTrihealth Good Samaritan Hospital07-18-2023 History of Present illness Narrative* Malachi [...] sensation. Going to reach out to her logistics analytics manager to see about completing EGD Pain: right [...] - 08/01/2010 Comment: Was seen by , logistics analytics manager, Ponce. Started on PPI for GERD with good [...] appointment.. Malachi Lilly APRN-KELLY documented in this encounterTrihealth [facility]07-17-2023 History of Present illness Narrative* Madeline [...] 25, 2023 1:54 PM documented in this encounterTrihealth [facility] Sam[facility] Hospital07-17-2023 History of Present illness Narrative* Essie Man APRN.CNP - 03/25/2023 1:16 PM EDT Patient presents today for annual visit due to Medicare guidelines patient does not need to be seenuntil next year. Mammogram orders placed for next year. Essie Man APRN.CNP No charge visit documented in this encounterTrihealth Good Sam[facility] Hospital03-27-2023 Miscellaneous Notes* Telephone Encounter - Cherise [...] on current Lipitor dose. documented in this encounterTrihealth Good Sam[facility] Hospital03-18-2023 Miscellaneous Notes* Telephone Encounter - Chance Kolb MD - 11/24/2022 1:34 PM EDT See RX refill done November 24, 2022 documented in this encounterTrihealth Good Sam[facility] Hospital03-18-2023 Miscellaneous Notes* Telephone Encounter - Chance [...] Authorizing Provider: CHANCE KOLB MD Replied to [employer] message as well * Telephone Encounter - Rosalind Jasso LPN - 11/24/2022 9:09 AM EDT Pt calling for refills. documented in this encounterTrihealth [facility] Sam[facility] Hospital03-15-2023 Miscellaneous Notes* Telephone Encounter - Ann [...] Ann Marie Kelly LPN documented in this encounterTrihealth [facility] Sam[facility]03-15-2023 Miscellaneous Notes* Telephone Encounter - Grace [...] to patient. * Telephone Encounter - Malachi Lilyl APRN.KELLY - 11/19/2022 2:23 PM EDT Please [...] asordered. Deidra Kohler RN documented in this encounterTrihealth Good [facility]03-10-2023 History of Present illness Narrative* Chance Kolb MD - 11/16/2022 2:02 PM EST This note was created using Achieve Xriter. Subjective Geraldine Hairston is a 72 year [...] NONFASTING Chance Kolb MD documented in this encounterTrihealth [facility]02-08-2023 Miscellaneous Notes* Telephone Encounter - Yuridia [...] you. Yuridia Saldaña LPN documented in this encounterTrihealth Good Sam[facility] Hospital01-26-2023 Miscellaneous Notes* Telephone Encounter - Laura Sterling LPN - 10/04/2022 3:58 PM EST Leigh from [facility] Home Health calling to check status of message. Went over notes from Malachi Lilly NPwith understanding. * Telephone Encounter - Malachi Lilly APRN.HOME CARE ASSISTANT - 10/03/2022 9:46 AM EST Noted and agree. She has a urine culture pending, will wait for results. * Telephone Encounter - Ann Marie Wylie RN - 10/03/2022 9:14 AM EST Leigh from [facility] calls and states that care home will continue to follow patient 1 times for 2 weeks. Patient just finished antibiotics for UTI and care home wants to makes sure patient is symptom free. Please review and advise, Ann Marie Wylie RN documented in this encounterTrihealth Good Sam[facility]01-23-2023 Miscellaneous Notes* Telephone Encounter - Courtney Patrick RN - 10/01/2022 3:06 PM EST Spoke with Naomi,@ [facility]. Given message from provider's office. She verbalizes understanding. Courtney Patrick RN * Telephone Encounter - Nguyễn Stringer APRN.KOFI - 10/01/2022 2:43 PM EST OK [facility] visit * Telephone Encounter - Courtney Patrick RN - 10/01/2022 2:26 PM EST nurse Naomi @ [facility] calling with request for order for nursing visit x 1 tomorrow to evaluate patient for extension of nursing services. Courtney Patrick RN documented in this encounterTrihealth [facility]01-20-2023 Miscellaneous Notes* Telephone Encounter - Lydia [...] Please call and advise. documented in this encounterTrihealth Good [facility]01-17-2023 Miscellaneous Notes* Telephone Encounter - Grace Wilson LPN - 09/25/2022 1:16 PM EST Anila notified of same. * Telephone Encounter - Malachi Lilly APRN.CNP - 09/25/2022 1:04 PM EST May give the verbal okay to for this. Thanks * Telephone Encounter - Ann Marie Wylie RN - 09/25/2022 12:59 PM EST Anila from [facility] calls and is requesting an order for 1 time nursing evaluation to assessing further nursing needs. Please review and advise, Ann Marie Wylie RN documented in this encounterTrihealth [facility]01-10-2023 Miscellaneous Notes* Telephone Encounter - Ann Marie Kelly LPN - 09/18/2022 3:29 PM EST Patient notified of below results/recommendation, verbalized understanding. Ann Marie Kelly LPN * Telephone Encounter - Malachi Lilly APRN.CNP - 09/18/2022 12:45 PM EST Please let patient know urine dip still shows UTI, will send in for x10 days Bactrim. documented in this encounterTrihealth [facility]01-06-2023 Miscellaneous Notes* Addendum Note - Grace Wilson LPN - 09/14/2022 4:17 PM ESTAddended by: GRACE WILSON LPN on: 09/14/2022 04:17 PM Modules accepted: Orders * Telephone Encounter - Grace Wilson LPN - 09/14/2022 4:02 PM EST Attempted to reach patient with no answer and unable to leave message due to mailbox being full. Copy of order faxed to [facility] to collect urine if that works for [...] Ann Marie Wylie, RN documented in this encounterTrihealth Good [facility]01-06-2023 Miscellaneous Notes* Telephone Encounter - Grace Wilson LPN - 09/14/2022 3:32 PM EST Adela aware of ok. * Telephone Encounter - Malachi Lilly APRN.CNP - 09/14/2022 3:28 PM EST Okay to give verbal ok, thank you * Telephone Encounter - Laura Sterling LPN - 09/14/2022 12:50 PM EST Adela from [facility] Home Health calling patient is agreeable to 1 visit weekly for 2 weeks for care home, working on medication education and depression. Asking if PCP would give verbal order to agree? Please advise documented in this encounterTrihealth [facility]01-06-2023 Miscellaneous Notes* Telephone Encounter - Grace Wilson LPN - 09/14/2022 3:30 PM EST Left message for [place] that SW eval is approved. * Telephone Encounter - Malachi Lilly APRN.CNP - 09/14/2022 3:26 PM EST Please return call and let them know okay for social work eval. thanks * Telephone Encounter - Deidra Kohler RN - 09/14/2022 3:09 PM EST Alia, social media specialist with [facility] is requesting a verbal order for pt to have Social Work Evaluation next week, if provider approves. Please call Alia with order at [phone]. Thank you. documented in this encounterTrihealth Good [facility]01-04-2023 Miscellaneous Notes* Telephone Encounter - Deidra Kohler RN - 09/12/2022 2:21 PM EST Nathan with [facility] Physical Therapy calling to report plan of care for pt. PT will see patient 2 times per week for 3 weeks for functional mobility training. No call back needed if provider agreeable. Deidra Kohler RN documented in this encounterTrihealth [facility]01-04-2023 Miscellaneous Notes* Telephone Encounter - Courtney Patrick RN - 09/12/2022 1:41 PM EST KORINA Cooney @ [facility] calling to let PCP know patient was seen and evaluated for OT services. She has good support from and denies need for further OT services. Her BP was 88/52. OT did not do a re check. Ivet states she discussed increasing hydration and increased mobility with patient. Courtney Patrick RN documented in this encounterTrihealth [facility]01-03-2023 Miscellaneous Notes* Telephone Encounter - Grace Wilson LPN - 09/11/2022 4:39 PM EST Left message for Alia that Dr. Kolb will follow. * Telephone Encounter - Malachi Lilly APRN.CNP - 09/11/2022 2:29 PM EST Yes, we will follow. * Telephone Encounter - Terrence Buckley RN - 09/07/2022 2:38 PM EST Alia- [facility] HH reports patient will be discharged from [facility] tomorrow with [facility], and they plan to do start of care next week after the holiday. Asking if pcp is agreeable to follow for orders? Please phone Alia with vo. documented in this encounterTrihealth [facility]11-29-2022 History of Present illness Narrative* Cele [...] 07, 2022 12:18 PM documented in this encounterTrihealth [facility]10-13-2022 Miscellaneous Notes* Telephone Encounter - Rosalind [...] result of bone density documented in this encounterTrihealth [facility] Hospital09-07-2022 Miscellaneous Notes* Telephone Encounter - Rosalind [...] needed based on symptoms. documented in this encounterTrihealth [facility]08-03-2022 History of Present illness Narrative* RT [...] 11, 2022 2:58 PM documented in this encounterTrihealth [facility]07-25-2022 Miscellaneous Notes* Telephone Encounter - Dagmar [...] to see if resolves. documented in this encounterTrihealth Good [facility] Hospital07-22-2022 History of Present illness Narrative* Cele [...] 30, 2022 2:06 PM documented in this encounterTrihealth Good [facility] Hospital07-22-2022 History of Present illness Narrative* Chance Kolb MD - 03/30/2022 1:24 PM EDT Images from the original note were not included. This note was created using Webspyter. Subjective Geraldine Hairston is a 71 year [...] more lately. Eating okay. Gets counseling at [facility]. Noted weight loss. PAST MEDICAL HISTORY Diagnosis [...] RELEASE Chance Kolb MD documented in this encounterTrihealth Good [facility]07-12-2022 History of Present illness Narrative* Leighann Burgos [employer] - 03/20/2022 7:50 AM EDT Radiology [...] DATA: Not applicable SIGNED BY: Leighann Burgos [employer] March 20, 2022 7:41 AM documented in this encounterTrihealth Good Samaritan Hospital07-12-2022 History of Present illness Narrative* Essie Man APRN.HOME CARE ASSISTANT - 03/20/2022 6:53 AM EDT Geraldine is a 71 year old who presents for an annual gynecologic exam without complaints. Postmenopausal: Yes HRT use: No. Last Pap: 12/26/2016 normal HPV: 12/24/2016 negative History of abnormal pap: No Last mammogram: 2019 normal History of abnormal mammogram: Yes 2018 benign Sexually active: No OB History T0 L0 SAB1 IAB0 Ectopic0 Multiple0 Live Births0 Nursing Home Director History LMP: Postmenopausal Age at Menarche: Age at First : Age at Menopause: Nursing Home Director History Comments: Sexual Activity: Not Currently; Male; Post Menopausal Contraception: No contraception data on record PAST MEDICAL HISTORY Diagnosis Date Anxiety state, unspecified Depressive disorder, not elsewhere classified GERD (gastroesophageal reflux disease) controlled with PPI; follows with Dr. Swan Hypothyroid Irritable bowel syndrome IBS; Dr. Sawn--continues follow up; last colonosocpy was at least [...] external genitalia normal, normal Bartholin's glands, urethra, [place]'s glands, no vulvar lesions, no cervical lesions, [...] needed Essie Man APRN.CNP documented in this encounterTrihealth Good [facility]05-26-2022 History of Present illness Narrative* Bailey Johnson APRN.CNP - 02/01/2022 1:53 PM EDT This note was created using Achieve Xriter. Subjective Geraldine Hairston is a 71 year old female. 71 year old female with PMH Raynauds, hypothyroid, GERD, IBS, depression, and anxiety presents withcomplaints of COVID exposure. Acute onset of symptoms was this past 01/28/22 Endorses a fellow parishioner at her hindu tested positive for COVID. Denies she is experiencing symptoms Denies fever or chills. Denies URI sx. Denies cough or congestion. Denies N/V/D Denies body aches or fatigue Denies SOB or dyspnea Requesting COVID testing Denies pain. Denies alleviating factors Denies aggravating factors Denies using homeopathic or OTC medications PARTS CONSULTANT. The history is provided by the patient. No manager language was used. PAST MEDICAL HISTORY Diagnosis Date [...] ICD9: V01.79, ICD10: Z20.822 +exposure 5 days PARTS CONSULTANT Denies symptoms Requesting testing. - ASYMPTOMATIC ELECTIVE [id number] and pending Bailey Johnson APRN.CNP documented in this encounterTrihealth Good [facility] Hospital05-26-2022 Instructions* Patient Instructions* Bailey Johnson APRN.KELLY [...] are not readily available, use a hand director mortgage that contains at least 60% alcohol. Cover [...] that you do not come to any [facility] facility without calling your primary care physician or speaking to a provider using a virtual visit using [facility] re3D. You will be evaluated to determine if you require being seen in person or if you meet CDC guidelines for testing for COVID-19 based on symptoms, travel and exposures. If you meet criteria for testing, your [employer] provider or primary care physician will [...] at least 30 days of prescription medications, jjgd-uat-thxwslu medicines, and supplies on hand in case [...] to harm yourself or others: ; Call 821 if you feel like you want to harm yourself or others ; Visit the Disaster Distress Helpl[place] call , [place] [address] ; Visit the National Domestic Violence Hotline or call and TTY Visit the National Suicide Prevention Lifeline or call and TTY or text Most importantly, don't panic. By following basic prevention measures such as hand hygiene and cover your cough, you are helping to keep yourself and others healthy. Additional information can be found on the [facility] [place] and [facility] web sites: https://www.cdc.gov/coronavirus/2019-nCoV/index.html https://[facility].org/coronavirus documented in this encounterTrihealth Good Samaritan Hospital05-23-2022 Nurse Note* Sona Urbina - 01/29/2022 2:58 PM EDT no symptoms and exposure was just yesterday, patient agreed to come back in 5 days unless she has symptoms. Sona Urbina documented in this encounterTrihealth Good Samaritan Hospital04-22-2022 Instructions* Patient Instructions* Jersey Stern V, DO - 12/29/2021 1:26 PM EDT Thank you for choosing the [facility] for your acute care needs. [...] physician or booking an appointment, please call [phone] or speak with any Patient Training Specialist. Hours: Saturday through Saturday 7:30 am to 7:00 pm. Saturday and Saturday: 8:00 am to 2:30 pm. documented in this encounterTrihealth Good Samaritan Hospital04-22-2022 History of Present illness Narrative* Jersey [...] in the home?: No documented in this encounterTrihealth Good Samaritan Hospital04-22-2022 History of Present illness Narrative* RT [...] 29, 2021 1:11 PM documented in this encounterTrihealth Good Samaritan Hospital03-19-2022 History of Present illness Narrative* Aicha [...] 25, 2021 10:54 AM documented in this encounterTrihealth Good Samar[facility] Hospital02-08-2022 Instructions* Patient Instructions* Chance Kolb MD [...] prescription with more pills. documented in this encounterTrihealth Good Samaritan Hospital02-08-2022 History of Present illness Narrative* Chance Kolb MD - 10/17/2021 7:00 PM EST This note was created using [employer]. Subjective Geraldine Hairston is a 71 year [...] indicated. Chance Kolb MD documented in this encounterTrihealth Good Samaritan HospitalDischarge summary Author Will Knapp [facility] Note Date/Time March 18, 2025 12:4 8pm [facility] Medical Records Department [address] [place] [id number] Emergency Department Summary 03/18/25 MR#: [id number] Acct: [id number] Name: GERALDINE HAIRSTON Rep #:[id number] : [...] management. Patient denies any blood thinning medications. [facility] Medical History Non-pressure chronic ulcer of left [...] 600 mg PO BID Check with [facility] 12/07/15 09/29/16 21:00 History doctor [...] 9 mg PO DAILY Check with [facility] 09/30/16 Unknown History capsule,delayed,extended release doctor (Entocort [...] following commands and that she was at [facility] year is 2024 Skin: Warm, dry, [...] she is to rotate Tylenol and ibuprofen aommhx-osl-dvalm she also began prescription for cyclobenzaprine. Allquestion concerns answered she was discharged home in stable condition peer Radiography Diagnostic Testing: Clinical Impression(s) from Imaging Studies Pelvis X-Ray 03/18/25 10:03 IMPRESSION: No acute fracture is seen. Reading Location: [facility]-IR-[address] 03/18/25 10:10 IMPRESSION: LUMBAR DEGENERATIVE DISC AND FACET DISEASE. Nondisplaced compression fracture along the anterior superior endplate of the [id number]. Reading Location: [facility]-1 Femur X-Ray 03/18/25 10:20 IMPRESSION: NO ACUTE FRACTURE OR DISLOCATION. Reading Location: [facility]- Discharge Plan Triage Chief Complaint: Lower [...] pain you should rotate Tylenol and ibuprofen xumrts-ywn-jxsek when you do this you can take something every 3 hours with max dose of Tylenol in 24 hours 3200 mg. You need to follow-up with Dr. Brito. Your CT didshow a compression fracture of your L4 vertebrae. Return with worsening symptoms or other concerns Print Language: Greenlandic Disposition Disposition: Home, Self Care What to do if you have Problems For any increased pain, shortness of breath, bleeding, nausea or vomiting, chestpain, or any unexpected problems, contact your Primary Care Provider. Call [facility] ([phone]) or report to the closest Emergency Room. Call 911 if necessary. 03/18/25 1248 <Electronically signed by Will Knapp DO> Cosigner Signature (if applicable): CC: Dr. Chance Kolb MD ~ Signed [facility] Work Phone: Evaluation note* Diagnosis Closed nondisplaced fracture of neck of fifth metacarpal bone of left hand, initial encounter- Primary documented in this encounter [facility] note* Diagnosis Closed nondisplaced fracture of neck of fifth metacarpal bone of left hand with routine healing, subsequent encounter- Primary documented in this encounter [facility]* Diagnosis Closed nondisplaced fracture of neck of fifth metacarpal bone of left hand, initial encounter [facility]* Diagnosis Acquired hypothyroidism- Primary Unspecified hypothyroidism Shoulder pain, unspecified chronicity, unspecified laterality Left knee pain, unspecified chronicity Hypokalemia Hypopotassemia Numbness of right hand documented [facility] this [facility]* Diagnosis Exposure to COVID-19 virus- Primary [facility]* Diagnosis APPOINTMENT CANCELLED- Primary Contact with and (suspected) exposure to covid-19 documented [facility] this [facility]* Diagnosis Encounter for gynecological examination (general) (routine) without abnormal findings- Primary Encounter for screening mammogram for breast cancer Age-related osteoporosis without current pathological fracture Senile osteoporosis documented in this encounter [facility] note* Diagnosis Encounter for screening mammogram for breast cancer [facility]* Diagnosis Age-related osteoporosis without current pathological fracture Senile osteoporosis documented in this encounter [facility] note* Diagnosis Acquired hypothyroidism- Primary Unspecified hypothyroidism [...] esophagitis Esophageal reflux documented in this encounter [facility] noteNo assessment information availableWLicking Memorial [facility] Work Phone: Evaluation note* Diagnosis Onset Date Resolution Status Acute confusion acute Slurred speech acute Weakness acute [facility] Work Phone: Evaluation note* Diagnosis Onset Date Resolution Status Acute confusion acute Hypokalemia acute Slurred speech acute Toxic metabolic encephalopathy acute Weakness acute [facility] Work Phone: Evaluation note* Diagnosis Urinary tract infection without hematuria, site unspecified- Primary documented in this encounter [facility] note* Diagnosis Acute cystitis with hematuria- Primary Acute cystitis documented in this encounter [facility] note* Diagnosis Acute cystitis with hematuria- Primary Acute cystitis documented in this encounter [facility] note* Diagnosis Acquired hypothyroidism Unspecified hypothyroidism Raynaud's disease without gangrene [facility]* Diagnosis Numbness and tingling in right hand Disturbance of skin sensation [facility]* Diagnosis Closed fracture of multiple ribs of right side with routine healing, subsequent encounter- Primary Chronic right shoulder pain Pain in joint, shoulder region documented in this encounter [facility] note* Diagnosis Acquired hypothyroidism- Primary Unspecified hypothyroidism Hypercholesteremia Pure hypercholesterolemia Rib pain on right side Chest pain, unspecified Chronic right shoulder pain Pain in joint, shoulder region Vitamin D deficiency Unspecified vitamin D deficiency Long-term current use of mesalamine Encounter for long-term current use of medication [facility]* Diagnosis Encounter for screening mammogram for breast cancer- Primary documented in this encounter [facility] note* Diagnosis Nodule of finger of right hand- Primary Thumb joint locking Unspecified derangement of hand joint Other headache syndrome Gastroesophageal reflux disease without esophagitis Esophageal reflux Raynaud's disease without gangrene [facility]* Diagnosis Abrasion- Primary Abrasion or friction burn of other, multiple, and unspecified sites, without mention of infection Visit for suture removal Encounter for removal of sutures documented in this encounter [facility] note* Diagnosis Encounter for screening mammogram for breast cancer documented in this encounter [facility] note* Diagnosis Acquired hypothyroidism- Primary Unspecified hypothyroidism Numbness and tingling in right hand Disturbance of skin sensation Raynaud's disease without gangrene Gastroesophageal reflux disease without esophagitis Esophageal reflux Vitamin D deficiency Unspecified vitamin D deficiency Hypercholesteremia Pure hypercholesterolemia Crohn's disease of large intestine without complication (HCC) Regional enteritis of large intestine Encounter for long-term current use of medication documented in this encounter [facility] note* Diagnosis Urinary tract infection without hematuria, site unspecified- Primary documented in this encounter [facility] note* Diagnosis Right hand pain- Primary Pain in soft tissues of limb [facility]* Diagnosis Mass of finger of right hand Localized superficial swelling, mass, or lump Rupture of flexor pollicis longus muscle [facility] Diagnosis Mass of finger of right hand Localized superficial swelling, mass, or lump Rupture of flexor pollicis longus muscle [facility] Diagnosis Mass of finger of right hand Localized superficial swelling, mass, or lump Rupture of flexor pollicis longus muscle documented in this [facility]* Diagnosis Rupture of flexor pollicis longus muscle Retained orthopedic hardware [facility] Diagnosis Acute bilateral low back pain without sciatica- Primary Age-related osteoporosis without current pathological fracture Senile osteoporosis Gastroesophageal reflux disease without esophagitis Esophageal reflux Crohn's disease of large intestine without complication (HCC) Regional enteritis of large intestine Acquired hypothyroidism Unspecified hypothyroidism Depression, unspecified depression type Anxiety Anxiety state, unspecified Encounter for screening mammogram for breast cancer documented in this encounter [facility] note* Diagnosis Rupture of flexor pollicis longus muscle- Primary Retained orthopedic hardware Mass of finger of right hand Localized superficial swelling, mass, or lump documented in this encounter [facility] note* Diagnosis Encounter for screening mammogram for breast cancer documented in this encounter [facility] note* Diagnosis GERD (gastroesophageal reflux disease)- Primary [...] intractable tension-type headache documented in this encounter [facility] note* Diagnosis GERD (gastroesophageal reflux disease)- Primary [...] pain without sciatica documented in this encounter [facility] note* Diagnosis GERD (gastroesophageal reflux disease)- Primary [...] Chest pain, unspecified [facility]* Diagnosis GERD (gastroesophageal reflux disease)- [...] Chest pain, unspecified documented in this encounter [facility] note* Diagnosis GERD (gastroesophageal reflux disease)- Primary [...] reflux Acute cough documented in this encounter [facility] note* Diagnosis GERD (gastroesophageal reflux disease)- Primary [...] Chronic cough Cough documented in this encounter [facility] note* Diagnosis GERD (gastroesophageal reflux disease)- Primary [...] Pain in limb [facility]* Diagnosis GERD (gastroesophageal reflux disease)- [...] Abnormality of gait documented in this encounter [facility] note* Diagnosis GERD (gastroesophageal reflux disease)- Primary [...] hematuria, site unspecified documented in this encounter [facility] note* Diagnosis GERD (gastroesophageal reflux disease)- Primary [...] site unspecified- Primary documented in this encounter [facility] note* Diagnosis GERD (gastroesophageal reflux disease)- Primary [...] Abnormality of gait documented in this encounter [facility] note* Diagnosis GERD (gastroesophageal reflux disease)- Primary [...] use of medication [facility] Diagnosis GERD (gastroesophageal reflux disease)- [...] Abnormality of gait [facility] this [facility]* Diagnosis GERD (gastroesophageal reflux disease)- [...] hematuria, site unspecified [facility] this [facility]* Diagnosis GERD (gastroesophageal reflux disease)- [...] Abnormality of gait documented in this encounter [facility] note* Diagnosis GERD (gastroesophageal reflux disease)- Primary [...] Asymptomatic postmenopausal status documented in this encounter [facility] note* Diagnosis GERD (gastroesophageal reflux disease)- Primary [...] involving urinary system documented in this encounter [facility] note* Diagnosis GERD (gastroesophageal reflux disease)- Primary [...] disease without gangrene documented in this encounter [facility] note* Diagnosis GERD (gastroesophageal reflux disease)- Primary [...] fracture Senile osteoporosis [facility]* Diagnosis GERD (gastroesophageal reflux disease)- [...] Other abnormal glucose documented in this encounter [facility] note* Diagnosis GERD (gastroesophageal reflux disease)- Primary [...] Other screening mammogram documented in this encounter [facility] Discharge instructionsAdditional Instructions Use prescriptions as prescribed use the Endocet and Zofran for severe pain and sure that you use the Zofran with the Endocet as this will upset your stomach. For mild to moderate pain you should rotate Tylenol and ibuprofen [id number] when you do this you can take something every 3 hours with max dose of Tylenol in 24 hours 3200 mg. You need to follow-up with Dr. Brito. Your CT did show a compression fracture of your L4 vertebrae. [facility] worsening symptoms [facility]: Reason for referral (narrative)* Diagnostic Procedure Only (Routine) - Pending Review Specialty Diagnoses / Procedures Referred By Faisal alvarado Referred To Contact XR IMAGING Diagnoses Closed nondisplaced fracture of neck of fifth metacarpal bone of left hand, initial encounter Procedures XR HAND GENERAL 3V PA/LAT/OBL LEFT RADEX HAND MINIMUM 3 VIEWS Jersey Stern V, DO [address] [place] [address] Xr Imaging Referral ID Status Reason Start Date Expiration Date Visits Requested Visits Authorized [id number] Pending Review Auto-Generat ed Referral 12/27/2021 01/26/2023 1 1 [facility] for referral (narrative)* Diagnostic Procedure Only (Routine) - Closed Specialty Diagnoses / Procedures Referred By Faisal alvarado Referred To Contact XR IMAGING Diagnoses Closed nondisplaced fracture of neck of fifth metacarpal bone of left hand, initial encounter Procedures XR HAND GENERAL 3V PA/LAT/OBL LEFT RADEX HAND MINIMUM 3 VIEWS Jersey Stern V DO [address] [place] [address] Xr Imaging Referral ID Status Reason Start Date Expiration Date V isits Requested Visits Authorized [id number] Closed Auto-Generate d Referral 12/27/2021 01/26/2023 1 1 [facility] for referral (narrative)* Diagnostic Procedure Only (Routine) - Pending Review Specialty Diagnoses / Procedures Referred By Faisal t Referred To Contact [facility] IMAGING Diagnoses Encounter for screening mammogram for breast cancer Procedures OZIEL SCREENING SCREENING MAMMOGRAPHY BI 2-VIEW BREAST INC CAD Essie Man, MIMI.HOME CARE [place]IST[place] [address] [facility] [address] [place] [address] Referral ID Status Reason Start Date Expiration Date Visits Requested Visits Authorized [id number] Pending Review Auto-Generat ed Referral 03/20/2022 04/19/2023 1 1 [facility] for referral (narrative)* Diagnostic Procedure Only (Routine) - Closed Specialty Diagnoses / Procedures Referred By Contac t Referred To Contact BR IMAGING Diagnoses Encounter for screening mammogram for breast cancer Procedures OZIEL SCREENING SCREENING MAMMOGRAPHY BI 2-VIEW BREAST INC CAD Chance Kolb MD [address] [place] [address] [facility] [address] [place] [address] Referral ID Status Reason Start Date Expiration Date V isits Requested Visits Authorized [id number] Closed Auto-Generate d Referral 08/02/2021 09/01/2022 1 1 [facility] for referral (narrative)* Diagnostic Procedure Only (Routine) - Closed Specialty Diagnoses / Procedures Referred By Alyssaac t Referred To Contact XR IMAGING Diagnoses Rib pain on right side Procedures XR RIBS/CHEST 3V AP RIB/OBLS/CXR RIGHT RADEX RIBS UNI W/POSTEROANT CH MINIMUM 3 VIEWS Chance Kolb MD [address] [place] [address] Xr Imaging Referral ID Status Reason Start Date Expiration Date V isits Requested Visits Authorized [id number] Closed Auto-Generate d Referral 11/16/2022 12/16/2023 1 1 [facility] for referral (narrative)* Diagnostic Procedure Only (Routine) - Pending Review Specialty Diagnoses / Procedures Referred By Contac t Referred To Contact BR IMAGING Diagnoses Encounter for screening mammogram for breast cancer Procedures OZIEL SCREENING SCREENING MAMMOGRAPHY BI 2-VIEW BREAST INC Essie Jean-Baptiste APRN.CNP [address] [place] [address] [facility] [address] [place] [address] Referral ID Status Reason Start Date Expiration Date Visits Requested Visits Authorized [id number] Pending Review Auto-Generat ed Referral 03/25/2023 04/23/2024 1 1 [facility] for referral (narrative)* Diagnostic Procedure Only (Routine) - Closed Specialty Diagnoses / Procedures Referred By Contac t Referred To Contact BR IMAGING Diagnoses Encounter for screening mammogram for breast cancer Procedures OZIEL SCREENING SCREENING MAMMOGRAPHY BI 2-VIEW BREAST INC CAD Essie Man APRN.HOME CARE ASSISTANT [address] [place] [address] [facility] [address] [place] [address] Referral ID Status Reason Start Date Expiration Date V isits Requested Visits Authorized [id number] Closed Auto-Generate d Referral 03/20/2022 04/19/2023 1 1 [facility] for referral (narrative)* Diagnostic Procedure Only (Routine) - Authorized Specialty Diagnoses / Procedures Referred By Contac t Referred To Contact BR IMAGING Diagnoses Encounter for screening mammogram for breast cancer Procedures OZIEL SCREENING SCREENING MAMMOGRAPHY BI 2-VIEW BREAST INC CAD Malachi Lilly APRN.HOME CARE ASSISTANT [address] [place] [address] [facility] Imaging [address] [place] [address] Referral ID Status Reason Start Date Expiration Date Visits Requested Visits Authorized [id number] Authorized Auto-Generat ed Referral 12/31/2023 01/29/2025 1 1 * Diagnostic Procedure Only (Routine) - Closed Specialty Diagnoses / Procedures Referred By Contac t Referred To Contact XR IMAGING Diagnoses Acute bilateral low back pain without sciatica Procedures XR LUMBAR GENERAL 3V AP/LAT/L5-S1 RADEX SPINE LUMBOSACRAL 2/3 VIEWS Malachi Lilly APRN.HOME CARE ASSISTANT [address] [place] [address] [place] [address] Referral ID Status Reason Start Date Expiration Date V isits Requested Visits Authorized [id number] Closed Auto-Generate d Referral 12/31/2023 01/29/2025 1 1 [facility] for referral (narrative)* Diagnostic Procedure Only (Routine) - Closed Specialty Diagnoses / Procedures Referred By Contac t Referred To Contact XR IMAGING Diagnoses Acute bilateral low back pain without sciatica Procedures XR LUMBAR GENERAL 3V AP/LAT/L5-S1 RADEX SPINE LUMBOSACRAL 2/3 VIEWS Malachi Lilly APRN.HOME CARE ASSISTANT [facility] [place] [address] [place] [address] Referral ID Status Reason Start Date Expiration Date V isits Requested Visits Authorized [id number] Closed Auto-Generate d Referral 12/31/2023 01/29/2025 1 1 [facility] for referral (narrative)* Diagnostic Procedure Only (Urgent) - Closed Specialty Diagnoses / Procedures Referred By Contac t Referred To Contact XR IMAGING Diagnoses Fall from bed, initial encounter Rib injury Rib pain on right side Procedures XR RIBS/CHEST 3V AP RIB/OBLS/CXR RIGHT RADEX RIBS UNI W/POSTEROANT CH MINIMUM 3 VIEWS Talya Howell APRN.HOME CARE ASSISTANT [address] [place] [address] [place] [address] Referral ID Status Reason Start Date Expiration Date V isits Requested Visits Authorized [id number] Closed Auto-Generate d Referral 09/03/2023 10/02/2024 1 1 [facility] for referral (narrative)* Diagnostic Procedure Only (Routine) - Closed Specialty Diagnoses / Procedures Referred By Contac t Referred To Contact XR IMAGING Diagnoses Rib pain on right side Procedures XR RIBS/CHEST 3V AP RIB/OBLS/CXR RIGHT RADEX RIBS UNI W/POSTEROANT CH MINIMUM 3 VIEWS Chance Kolb MD [address] [place] [address] [place] [address] Referral ID Status Reason Start Date Expiration Date V isits Requested Visits Authorized [id number] Closed Auto-Generate d Referral 11/16/2022 12/16/2023 1 1 [facility] for referral (narrative)* Diagnostic Procedure Only (Urgent) - Closed Specialty Diagnoses / Procedures Referred By Contac t Referred To Contact XR IMAGING Diagnoses Fall, initial encounter Left hand pain Procedures XR HAND GENERAL 3V PA/LAT/OBL LEFT RADEX HAND MINIMUM 3 VIEWS Azucena Khan APRN.HOME CARE ASSISTANT [address] [place] [address] [place] [address] Referral ID Status Reason Start Date Expiration Date V isits Requested Visits Authorized [id number] Closed Auto-Generate d Referral 11/25/2021 12/25/2022 1 1 * Diagnostic Procedure Only (Urgent) - Closed Specialty Diagnoses / Procedures Referred By Contac t Referred To Contact XR IMAGING Diagnoses Fall, initial encounter Rib pain on right side Procedures XR RIBS/CHEST 3V AP RIB/OBLS/CXR RIGHT RADEX RIBS UNI W/POSTEROANT CH MINIMUM 3 VIEWS Azucena Khan APRN.HOME CARE ASSISTANT [address] [place] [id number] [place] [address] Referral ID Status Reason Start Date Expiration Date V isits Requested Visits Authorized [id number] Closed Auto-Generate d Referral 11/25/2021 12/25/2022 [facility] Diagnostic Procedure Only (Routine) - Closed Specialty Diagnoses / Procedures Referred By Contac t Referred To Contact XR IMAGING Diagnoses Asymptomatic postmenopausal status Procedures DXA-AXIAL SKELETON DXA BONE DENSITY STUDY / SITES AXIAL Chance Moulton MD [address] [place] [address] [place] [address] Referral ID Status Reason Start Date Expiration Date V isits Requested Visits Authorized [id number] Closed Auto-Generate d Referral 06/24/2024 07/24/2025 1 1 [facility] for referral (narrative)No reason for referral information availableWLicking [facility] Work Phone: Reason for visit Narrative* Diagnostic Procedure Only (Routine) - Closed Specialty Diagnoses / Procedures Referred By Contac t Referred To Contact XR IMAGING Diagnoses Closed nondisplaced fracture of neck of fifth metacarpal bone of left hand, initial encounter Procedures XR HAND GENERAL 3V PA/LAT/OBL LEFT RADEX HAND MINIMUM 3 VIEWS Jersey Stern V, DO [address] [place] [address] Xr Imaging Referral ID Status Reason Start Date Expiration Date V isits Requested Visits Authorized [id number] Closed Auto-Generate d Referral 12/27/2021 01/26/2023 1 1 [facility] for visit Narrative* Diagnostic Procedure Only (Routine) - Closed Specialty Diagnoses / Procedures Referred By Contac t Referred To Contact BR IMAGING Diagnoses Encounter for screening mammogram for breast cancer Procedures OZIEL SCREENING SCREENING MAMMOGRAPHY BI 2-VIEW BREAST INC Chance Dent MD [address] [place] [address] [facility] Imaging [address] [place] [address] Referral ID Status Reason Start Date Expiration Date V isits Requested Visits Authorized [id number] Closed Auto-Generate d Referral 08/02/2021 09/01/2022 1 1 [facility] for visit Narrative* Diagnostic Procedure Only (Routine) - Closed Specialty Diagnoses / Procedures Referred By Contac t Referred To Contact BR IMAGING Diagnoses Encounter for screening mammogram for breast cancer Procedures OZIEL SCREENING SCREENING MAMMOGRAPHY BI 2-VIEW BREAST INC CAD Essie Man AGENCY SALES MANAGEMENT ASSISTANT.HOME CARE ASSISTANT [address] [address] Br Imaging [address] [place] [address] Referral ID Status Reason Start Date Expiration Date V isits Requested Visits Authorized [id number] Closed Auto-Generate d Referral 03/20/2022 04/19/2023 1 1 [facility] for visit Narrative* Diagnostic Procedure Only (Routine) - Closed Specialty Diagnoses / Procedures Referred By Faisal t Referred To Contact BR IMAGING Diagnoses Encounter for screening mammogram for breast cancer Procedures OZIEL SCREENING SCREENING MAMMOGRAPHY BI 2-VIEW BREAST INC CAD Malachi Lilly, AGENCY SALES MANAGEMENT ASSISTANT.HOME CARE ASSISTANT [address] [place] [address] [facility] [address] [place] [address] Referral ID Status Reason Start Date Expiration Date V isits Requested Visits Authorized [id number] Closed Auto-Generate d Referral 12/31/2023 01/29/2025 1 1 [facility] for visit Narrative* Diagnostic Procedure Only (Routine) - Closed Specialty Diagnoses / Procedures Referred By Faisal t Referred To Contact XR IMAGING Diagnoses Acute bilateral low back pain without sciatica Procedures XR LUMBAR GENERAL 3V AP/LAT/L5-S1 RADEX SPINE LUMBOSACRAL 2/3 VIEWS Malachi Lilly AGENCY SALES MANAGEMENT ASSISTANT.HOME CARE ASSISTANT [address] [place] [address] [place] [address] Referral ID Status Reason Start Date Expiration Date V isits Requested Visits Authorized [id number] Closed Auto-Generate d Referral 12/31/2023 01/29/2025 1 1 [facility] for visit Narrative* Diagnostic Procedure Only (Urgent) - Closed Specialty Diagnoses / Procedures Referred By Alyssaac t Referred To Contact XR IMAGING Diagnoses Fall from bed, initial encounter Rib injury Rib pain on right side Procedures XR RIBS/CHEST 3V AP RIB/OBLS/CXR RIGHT RADEX RIBS UNI W/POSTEROANT CH MINIMUM 3 VIEWS Talya Howell, AGENCY SALES MANAGEMENT ASSISTANT.HOME CARE ASSISTANT [address] [place] [address] [place] [address] Referral ID Status Reason Start Date Expiration Date V isits Requested Visits Authorized [id number] Closed Auto-Generate d Referral 09/03/2023 10/02/2024 1 1 [facility] for visit Narrative* Diagnostic Procedure Only (Routine) - Closed Specialty Diagnoses / Procedures Referred By Contac t Referred To Contact XR IMAGING Diagnoses Rib pain on right side Procedures XR RIBS/CHEST 3V AP RIB/OBLS/CXR RIGHT RADEX RIBS UNI W/POSTEROANT CH MINIMUM 3 VIEWS Chance Kolb MD [address] [place] [address] [place] [address] Referral ID Status Reason Start Date Expiration Date V isits Requested Visits Authorized [id number] Closed Auto-Generate d Referral 11/16/2022 12/16/2023 1 1 [facility] for visit Narrative* Diagnostic Procedure Only (Urgent) - Closed Specialty Diagnoses / Procedures Referred By Contac t Referred To Contact XR IMAGING Diagnoses Fall, initial encounter Left hand pain Procedures XR HAND GENERAL 3V PA/LAT/OBL LEFT RADEX HAND MINIMUM 3 VIEWS Azucena Khan, AGENCY SALES MANAGEMENT ASSISTANT.HOME CARE ASSISTANT [address] [place] [address] [place] [address] Referral ID Status Reason Start Date Expiration Date V isits Requested Visits Authorized [id number] Closed Auto-Generate d Referral 11/25/2021 12/25/2022 1 1 [facility] for visit Narrative* Diagnostic Procedure Only (Routine) - Closed Specialty Diagnoses / Procedures Referred By Contac t Referred To Contact XR IMAGING Diagnoses Asymptomatic postmenopausal status Procedures DXA-AXIAL SKELETON DXA BONE DENSITY STUDY / SITES AXIAL SKEL Chance Kolb MD [address] [place] [address] [place] [address] Referral ID Status Reason Start Date Expiration Date V isits Requested Visits Authorized [id number] Closed Auto-Generate d Referral 06/24/2024 07/24/2025 1 1 [facility] Diagnostic Procedure Only (Routine) - Closed Specialty Diagnoses / Procedures Referred By Faisal t Referred To Contact BR IMAGING Diagnoses Encounter for screening mammogram for malignant neoplasm of breast Procedures OZIEL SCREENING W GABRIEL SCREENING DIGITAL BREAST TOMOSYNTHESIS BI SCREENING MAMMOGRAPHY BI 2-VIEW BREAST INC LUCIANO Nguyễn Stringer, AGENCY SALES MANAGEMENT ASSISTANT.DESK CLERKS SUPERVISOR [address] [place] [address] Phone: tel: fax: [facility] IM[facility] [address] [place] [address] Referral ID Status Reason Start Date Expiration Date V isits Requested Visits Authorized [id number] Closed Auto-Generate d Referral 05/04/2025 06/03/2026 1 1 [facility] Concerns Infection Onset Date Last [...] surgery on wrist January 06, 2025 1:39pm Elll-edjd-esxjazrwfejneya January 06 1:39pm S/P ORIF (open reduction [...] of surgery on wrist February 02 2:00pm Muqy-rzzr-fgrfmvldbzinzjo February 02, 2025 2:00pm S/P ORIF (open [...] surgery on wrist January 06, 2025 1:39pm Wczu-bypl-khinwtspctsnpkd January 06 1:39pm S/P ORIF (open reduction [...] of surgery on wrist February 02 2:00pm Dwyv-jntl-lhmcfogrzgrtdvl February 02, 2025 2:00pm S/P ORIF (open [...] on wrist March 02, 2 025 1:30pm Oqls-qkuk-ylqykfdrycbngei March 02 1:30pm S/P ORIF (open reduction [...] surgery on wrist January 06, 2025 1:39pm Vkky-tlgm-coosixyceauethl January 06 1:39pm S/P ORIF (open reduction [...] of surgery on wrist February 02 2:00pm Vdrl-uoxv-rhbujvvygneklfm February 02, 2025 2:00pm S/P ORIF (open [...] on wrist March 02 2 025 1:30pm Khbw-lkvu-smwzrefswolrvfz March 02 1:30pm S/P ORIF (open reduction [...] of surgery on wrist March 09 12:44pm Uhxg-wshc-nahlexgyicvsyyi March 09, 2025 12:44pm S/P ORIF (open [...] surgery on wrist January 06, 2025 1:39pm Xair-rmzn-mnkdvcbpaxyjlje January 06 1:39pm S/P ORIF (open reduction [...] of surgery on wrist February 02 2:00pm Yosx-echt-ndhrewetpjrolrq February 02, 2025 2:00pm S/P ORIF (open [...] surgery on wrist March 02 025 1:30pm Invt-wrvv-qsdpttmwawsbsqb March 02 1:30pm S/P ORIF (open reduction [...] of surgery on wrist March 30 1:15pm Psoq-ggaf-yvimgvdfobodkym March 30 1:15pm S/P ORIF (open reduction [...] of surgery on wrist February 02 2:00pm Zjjp-kuuq-iayzkzqddjfjhxw February 02, 2025 2:00pm S/P ORIF (open [...] surgery on wrist March 02 025 1:30pm Hzwc-xdyp-ocsrnrfcldqgpqa March 02 1:30pm S/P ORIF (open reduction [...] on wrist March 30 2 025 1:15pm Ncgy-bcbu-yshuxjubialilye March 30 1:15pm S/P ORIF (open reduction [...] surgery on wrist May 04, 2025 1:00pm Xxqq-ogft-jlspyrkgfloyadc May 04, 025 1:00pm S/P ORIF (open [...] surgery on wrist March 02 025 1:30pm Ebcr-qspf-qsstffogxqzlorx March 02 1:30pm S/P ORIF (open reduction [...] surgery on wrist March 30 025 1:15pm Zjkb-qudc-okhwqjgscdsepya March 30 1:15pm S/P ORIF (open reduction [...] surgery on wrist May 04, 2025 1:00pm Hnls-gycc-rqhpojsnwmfsdqr May 04 1:00pm S/P ORIF (open reduction [...] of surgery on wrist May 252024 12:45pm Vyog-usxg-zeinoxszosrxjjw May 12:45pm S/P ORIF (open reduction internal [...] No May 27, 2022 10:49am Power of Senior Sales Operations Analyst No May 10:49am Advance Directive Response Recorded Date/ Time Advance Directives No September 30, 2016 11:33am Living Will No May 27, 2022 9:49am Power of Senior Sales Operations Analyst No May 9:49am Advance Directive Response Recorded Date/ Time Advance Directives No September 30, 2016 11:33am Living Will No September 07, 2 022 1:34am Power of Senior Sales Operations Analyst No September 07, 2022 1:34am Advance Directive Response Recorded Date/ Time Advance Directives No September 30, 2016 12:33pm Living Will No April 29 1:32pm Power of Senior Sales Operations Analyst No April 29, 2 023 1:32pm Advance Directive Response Recorded Date/ Time Do you have a Healthcare Power of Senior Sales Operations Analyst? No January 01, 2025 8:13pm Advance Directives No September 30, 2016 12:33pm Advance Directive Response Recorded Date/ Time Do you have a Healthcare Power of Senior Sales Operations Analyst? No January 01, 2025 8:13pm Do you have a Healthcare Power of Senior Sales Operations Analyst? No March 13, 2025 7:37pm Advance Directives No September 30, 2016 12:33pm Advance Directive Response Recorded Date/ Time Do you have a Healthcare Power of Senior Sales Operations Analyst? No January 01, 2025 8:13pm Do you have a Healthcare Power of Senior Sales Operations Analyst? No March 13, 2025 7:37pm Do you have a Healthcare Power of Senior Sales Operations Analyst? No March 18, 2025 10:06am Advance Directives No September 30, 2016 12:33pm Advance Directive Response Recorded Date/ Time Do you have a Healthcare Power of Senior Sales Operations Analyst? No March 13, 2025 7:37pm Do you have a Healthcare Power of Senior Sales Operations Analyst? No March 18, 2025 10:06am Advance Directives [...] joint locking Procedures CONSULT TO ORTHOPAEDICS OFFICE/OUTPATIENT [facility] 60-74 MINUTES Malachi Lilly APRN.HOME CARE ASSISTANT [address] [place] [address] Referral ID Status Reason Start Date Expiration Date Visits Requested Visits Authorized [id number] Authorized PCP Requested Referral 03/26/2023 03/25/2024 1 1 Specialty Diagnoses / Procedures Referred By Contac t Referred To Contact Radiology Diagnoses Mass of finger of right hand Rupture of flexor pollicis longus muscle Procedures MR wrist right wo IV contrast Thea Vail MD 1 [facility] [address] [place] [id number] Referral ID Status Reason Start Date Expiration Date V isits Requested Visits Authorized [id number] Pending Review 08/12/2023 08/11/2024 1 1 Specialty Diagnoses / Procedures Referred By Contac t Referred To Contact Radiology Diagnoses Mass of finger of right hand Rupture of flexor pollicis longus muscle Procedures MR hand right wo IV contrast Thea Vail MD 1 [facility] [address] [place] [id number] Referral ID Status Reason Start Date Expiration Date V isits Requested Visits Authorized [id number] Pending Review 08/12/2023 08/11/2024 1 1 Referral ID Status Reason Start Date Expiration Date Visits Re quested Visits Authorized [id number] Closed 08/12/2023 08/11/2024 1 1 Referral ID Status Reason Start Date Expiration Date Visits Re quested Visits Authorized [id number] Closed 08/12/2023 08/11/2024 1 1 Specialty Diagnoses / Procedures Referred By Contac t Referred To Contact [facility] Diagnoses Gait instability Procedures CONSULT TO PHYSICAL THERAPY PHYSICAL THERAPY EVALUATION HIGH COMPLEX 45 MINS Chance Kolb MD [address] [place] [id number] [facility] [address] [address] Referral ID Status Reason Start Date Expiration Date Visits Requested Visits Authorized [id number] Authorized PCP Requested Referral Auto-Generate d Referral 4 06/24/2025 99 99 Specialty Diagnoses / Procedures Referred By Contac t Referred To Contact XR IMAGING Diagnoses Asymptomatic postmenopausal status Procedures DXA-AXIAL SKELETON DXA BONE DENSITY STUDY 1/> SITES AXIAL SKEL Chance Kolb MD [address] [place] [id number] Xr Imaging [facility] Referral ID Status Reason Start Date Expiration Date Visits Requested Visits Authorized [id number] Authorized Auto-Generat ed Referral 4 07/24/2025 1 1 Specialty Diagnoses / Procedures Referred By Contac t Referred To Contact [facility] Diagnoses Degeneration of intervertebral disc of lumbar region with discogenic back pain Lumbar spondylosis Chronic midline low back pain without sciatica Procedures CONSULT TO PHYSICAL THERAPY PHYSICAL THERAPY EVALUATION HIGH COMPLEX 45 MINS Chance Kolb MD [address] [place] [phone] [facility] [address] [address] Referral ID Status Reason Start Date Expiration Date Visits Requested Visits Authorized [id number] Authorized PCP Requested Referral Auto-Generate d Referral 4 06/24/2025 99 99 Summary Purpose Additional Source Comments Source Comments (unrecognize d section and content) In the event this informatio n is protected by the Federal Confidentiality of Alcohol and Drug Abuse Patient Records regulations: The Federal rules restrict any use of the information to criminally investigate or prosecute any alcohol or drug abuse patient.[facility] the event this information is protected by the Federal Confidentiality of Alcohol and Drug Abuse Patient Records regulations: The Federal rules restrict any use of the information to criminally investigate or prosecute any alcohol or drug abuse patient.[facility] HospitalIn the event this information is protected by the Federal Confidentiality of Alcohol and Drug Abuse Patient Records regulations: The Federal rules restrict any use of the information to criminally investigate or prosecute any alcohol or drug abuse patient.[facility] HospitalIn the event this information is protected by the Federal Confidentiality of Alcohol and Drug Abuse Patient Records regulations: The Federal rules restrict any use of the information to criminally investigate or prosecute any alcohol or drug abuse patient.[facility] HospitalIn the event this information is protected by the Federal Confidentiality of Alcohol and Drug Abuse Patient Records regulations: The Federal rules restrict any use of the information to criminally investigate or prosecute any alcohol or drug abuse patient.[facility] HospitalIn the event this information is protected by the Federal Confidentiality of Alcohol and Drug Abuse Patient Records regulations: The Federal rules restrict any use of the information to criminally investigate or prosecute any alcohol or drug abuse patient.[facility] HospitalIn the event this information is protected by the Federal Confidentiality of Alcohol and Drug Abuse Patient Records regulations: The Federal rules restrict any use of the information to criminally investigate or prosecute any alcohol or drug abuse patient.[facility] HospitalIn the event this information is protected by the Federal Confidentiality of Alcohol and Drug Abuse Patient Records regulations: The Federal rules restrict any use of the information to criminally investigate or prosecute any alcohol or drug abuse patient.[facility] HospitalIn the event this information is protected by the Federal Confidentiality of Alcohol and Drug Abuse Patient Records regulations: The Federal rules restrict any use of the information to criminally investigate or prosecute any alcohol or drug abuse patient.[facility] HospitalIn the event this information is protected by the Federal Confidentiality of Alcohol and Drug Abuse Patient Records regulations: The Federal rules restrict any use of the information to criminally investigate or prosecute any alcohol or drug abuse patient.[facility] HospitalIn the event this information is protected by the Federal Confidentiality of Alcohol and Drug Abuse Patient Records regulations: The Federal rules restrict any use of the information to criminally investigate or prosecute any alcohol or drug abuse patient.[facility] HospitalIn the event this information is protected by the Federal Confidentiality of Alcohol and Drug Abuse Patient Records regulations: The Federal rules restrict any use of the information to criminally investigate or prosecute any alcohol or drug abuse patient.[facility] HospitalIn the event this information is protected by the Federal Confidentiality of Alcohol and Drug Abuse Patient Records regulations: The Federal rules restrict any use of the information to criminally investigate or prosecute any alcohol or drug abuse patient.[facility] HospitalIn the event this information is protected by the Federal Confidentiality of Alcohol and Drug Abuse Patient Records regulations: The Federal rules restrict any use of the information to criminally investigate or prosecute any alcohol or drug abuse patient.[facility] HospitalIn the event this information is protected by the Federal Confidentiality of Alcohol and Drug Abuse Patient Records regulations: The Federal rules restrict any use of the information to criminally investigate or prosecute any alcohol or drug abuse patient.[facility] HospitalIn the event this information is protected by the Federal Confidentiality of Alcohol and Drug Abuse Patient Records regulations: The Federal rules restrict any use of the information to criminally investigate or prosecute any alcohol or drug abuse patient.[facility] HospitalIn the event this information is protected by the Federal Confidentiality of Alcohol and Drug Abuse Patient Records regulations: The Federal rules restrict any use of the information to criminally investigate or prosecute any alcohol or drug abuse patient.[facility] HospitalIn the event this information is protected by the Federal Confidentiality of Alcohol and Drug Abuse Patient Records regulations: The Federal rules restrict any use of the information to criminally investigate or prosecute any alcohol or drug abuse patient.[facility] HospitalIn the event this information is protected by the Federal Confidentiality of Alcohol and Drug Abuse Patient Records regulations: The Federal rules restrict any use of the information to criminally investigate or prosecute any alcohol or drug abuse patient.[facility] HospitalIn the event this information is protected by the Federal Confidentiality of Alcohol and Drug Abuse Patient Records regulations: The Federal rules restrict any use of the information to criminally investigate or prosecute any alcohol or drug abuse patient.[facility] HospitalIn the event this information is protected by the Federal Confidentiality of Alcohol and Drug Abuse Patient Records regulations: The Federal rules restrict any use of the information to criminally investigate or prosecute any alcohol or drug abuse patient.[facility] HospitalIn the event this information is protected by the Federal Confidentiality of Alcohol and Drug Abuse Patient Records regulations: The Federal rules restrict any use of the information to criminally investigate or prosecute any alcohol or drug abuse patient.[facility] HospitalIn the event this information is protected by the Federal Confidentiality of Alcohol and Drug Abuse Patient Records regulations: The Federal rules restrict any use of the information to criminally investigate or prosecute any alcohol or drug abuse patient.[facility] HospitalIn the event this information is protected by the Federal Confidentiality of Alcohol and Drug Abuse Patient Records regulations: The Federal rules restrict any use of the information to criminally investigate or prosecute any alcohol or drug abuse patient.[facility] HospitalIn the event this information is protected by the Federal Confidentiality of Alcohol and Drug Abuse Patient Records regulations: The Federal rules restrict any use of the information to criminally investigate or prosecute any alcohol or drug abuse patient.[facility] HospitalIn the event this information is protected by the Federal Confidentiality of Alcohol and Drug Abuse Patient Records regulations: The Federal rules restrict any use of the information to criminally investigate or prosecute any alcohol or drug abuse patient.[facility] HospitalIn the event this information is protected by the Federal Confidentiality of Alcohol and Drug Abuse Patient Records regulations: The Federal rules restrict any use of the information to criminally investigate or prosecute any alcohol or drug abuse patient.[facility] HospitalIn the event this information is protected by the Federal Confidentiality of Alcohol and Drug Abuse Patient Records regulations: The Federal rules restrict any use of the information to criminally investigate or prosecute any alcohol or drug abuse patient.[facility] HospitalIn the event this information is protected by the Federal Confidentiality of Alcohol and Drug Abuse Patient Records regulations: The Federal rules restrict any use of the information to criminally investigate or prosecute any alcohol or drug abuse patient.[facility] HospitalIn the event this information is protected by the Federal Confidentiality of Alcohol and Drug Abuse Patient Records regulations: The Federal rules restrict any use of the information to criminally investigate or prosecute any alcohol or drug abuse patient.[facility] HospitalIn the event this information is protected by the Federal Confidentiality of Alcohol and Drug Abuse Patient Records regulations: The Federal rules restrict any use of the information to criminally investigate or prosecute any alcohol or drug abuse patient.[facility] HospitalIn the event this information is protected by the Federal Confidentiality of Alcohol and Drug Abuse Patient Records regulations: The Federal rules restrict any use of the information to criminally investigate or prosecute any alcohol or drug abuse patient.[facility] HospitalIn the event this information is protected by the Federal Confidentiality of Alcohol and Drug Abuse Patient Records regulations: The Federal rules restrict any use of the information to criminally investigate or prosecute any alcohol or drug abuse patient.[facility] HospitalIn the event this information is protected by the Federal Confidentiality of Alcohol and Drug Abuse Patient Records regulations: The Federal rules restrict any use of the information to criminally investigate or prosecute any alcohol or drug abuse patient.[facility] HospitalIn the event this information is protected by the Federal Confidentiality of Alcohol and Drug Abuse Patient Records regulations: The Federal rules restrict any use of the information to criminally investigate or prosecute any alcohol or drug abuse patient.[facility] HospitalIn the event this information is protected by the Federal Confidentiality of Alcohol and Drug Abuse Patient Records regulations: The Federal rules restrict any use of the information to criminally investigate or prosecute any alcohol or drug abuse patient.[facility] HospitalIn the event this information is protected by the Federal Confidentiality of Alcohol and Drug Abuse Patient Records regulations: The Federal rules restrict any use of the information to criminally investigate or prosecute any alcohol or drug abuse patient.[facility] HospitalIn the event this information is protected by the Federal Confidentiality of Alcohol and Drug Abuse Patient Records regulations: The Federal rules restrict any use of the information to criminally investigate or prosecute any alcohol or drug abuse patient.[facility] HospitalIn the event this information is protected by the Federal Confidentiality of Alcohol and Drug Abuse Patient Records regulations: The Federal rules restrict any use of the information to criminally investigate or prosecute any alcohol or drug abuse patient.[facility] HospitalIn the event this information is protected by the Federal Confidentiality of Alcohol and Drug Abuse Patient Records regulations: The Federal rules restrict any use of the information to criminally investigate or prosecute any alcohol or drug abuse patient.[facility] HospitalIn the event this information is protected by the Federal Confidentiality of Alcohol and Drug Abuse Patient Records regulations: The Federal rules restrict any use of the information to criminally investigate or prosecute any alcohol or drug abuse patient.[facility] HospitalIn the event this information is protected by the Federal Confidentiality of Alcohol and Drug Abuse Patient Records regulations: The Federal rules restrict any use of the information to criminally investigate or prosecute any alcohol or drug abuse patient.[facility] HospitalIn the event this information is protected by the Federal Confidentiality of Alcohol and Drug Abuse Patient Records regulations: The Federal rules restrict any use of the information to criminally investigate or prosecute any alcohol or drug abuse patient.[facility] HospitalIn the event this information is protected by the Federal Confidentiality of Alcohol and Drug Abuse Patient Records regulations: The Federal rules restrict any use of the information to criminally investigate or prosecute any alcohol or drug abuse patient.[facility] HospitalIn the event this information is protected by the Federal Confidentiality of Alcohol and Drug Abuse Patient Records regulations: The Federal rules restrict any use of the information to criminally investigate or prosecute any alcohol or drug abuse patient.[facility] HospitalIn the event this information is protected by the Federal Confidentiality of Alcohol and Drug Abuse Patient Records regulations: The Federal rules restrict any use of the information to criminally investigate or prosecute any alcohol or drug abuse patient.[facility] HospitalIn the event this information is protected by the Federal Confidentiality of Alcohol and Drug Abuse Patient Records regulations: The Federal rules restrict any use of the information to criminally investigate or prosecute any alcohol or drug abuse patient.[facility] HospitalIn the event this information is protected by the Federal Confidentiality of Alcohol and Drug Abuse Patient Records regulations: The Federal rules restrict any use of the information to criminally investigate or prosecute any alcohol or drug abuse patient.[facility] HospitalIn the event this information is protected by the Federal Confidentiality of Alcohol and Drug Abuse Patient Records regulations: The Federal rules restrict any use of the information to criminally investigate or prosecute any alcohol or drug abuse patient.[facility] HospitalIn the event this information is protected by the Federal Confidentiality of Alcohol and Drug Abuse Patient Records regulations: The Federal rules restrict any use of the information to criminally investigate or prosecute any alcohol or drug abuse patient.[facility] HospitalIn the event this information is protected by the Federal Confidentiality of Alcohol and Drug Abuse Patient Records regulations: The Federal rules restrict any use of the information to criminally investigate or prosecute any alcohol or drug abuse patient.[facility] HospitalIn the event this information is protected by the Federal Confidentiality of Alcohol and Drug Abuse Patient Records regulations: The Federal rules restrict any use of the information to criminally investigate or prosecute any alcohol or drug abuse patient.[facility] HospitalIn the event this information is protected by the Federal Confidentiality of Alcohol and Drug Abuse Patient Records regulations: The Federal rules restrict any use of the information to criminally investigate or prosecute any alcohol or drug abuse patient.[facility] HospitalIn the event this information is protected by the Federal Confidentiality of Alcohol and Drug Abuse Patient Records regulations: The Federal rules restrict any use of the information to criminally investigate or prosecute any alcohol or drug abuse patient.[facility] HospitalIn the event this information is protected by the Federal Confidentiality of Alcohol and Drug Abuse Patient Records regulations: The Federal rules restrict any use of the information to criminally investigate or prosecute any alcohol or drug abuse patient.[facility] HospitalIn the event this information is protected by the Federal Confidentiality of Alcohol and Drug Abuse Patient Records regulations: The Federal rules restrict any use of the information to criminally investigate or prosecute any alcohol or drug abuse patient.[facility] HospitalIn the event this information is protected by the Federal Confidentiality of Alcohol and Drug Abuse Patient Records regulations: The Federal rules restrict any use of the information to criminally investigate or prosecute any alcohol or drug abuse patient.[facility] HospitalIn the event this information is protected by the Federal Confidentiality of Alcohol and Drug Abuse Patient Records regulations: The Federal rules restrict any use of the information to criminally investigate or prosecute any alcohol or drug abuse patient.[facility] HospitalIn the event this information is protected by the Federal Confidentiality of Alcohol and Drug Abuse Patient Records regulations: The Federal rules restrict any use of the information to criminally investigate or prosecute any alcohol or drug abuse patient.[facility] HospitalIn the event this information is protected by the Federal Confidentiality of Alcohol and Drug Abuse Patient Records regulations: The Federal rules restrict any use of the information to criminally investigate or prosecute any alcohol or drug abuse patient.[facility] HospitalIn the event this information is protected by the Federal Confidentiality of Alcohol and Drug Abuse Patient Records regulations: The Federal rules restrict any use of the information to criminally investigate or prosecute any alcohol or drug abuse patient.[facility] HospitalIn the event this information is protected by the Federal Confidentiality of Alcohol and Drug Abuse Patient Records regulations: The Federal rules restrict any use of the information to criminally investigate or prosecute any alcohol or drug abuse patient.[facility] HospitalIn the event this information is protected by the Federal Confidentiality of Alcohol and Drug Abuse Patient Records regulations: The Federal rules restrict any use of the information to criminally investigate or prosecute any alcohol or drug abuse patient.[facility] HospitalIn the event this information is protected by the Federal Confidentiality of Alcohol and Drug Abuse Patient Records regulations: The Federal rules restrict any use of the information to criminally investigate or prosecute any alcohol or drug abuse patient.[facility] HospitalIn the event this information is protected by the Federal Confidentiality of Alcohol and Drug Abuse Patient Records regulations: The Federal rules restrict any use of the information to criminally investigate or prosecute any alcohol or drug abuse patient.[facility] HospitalIn the event this information is protected by the Federal Confidentiality of Alcohol and Drug Abuse Patient Records regulations: The Federal rules restrict any use of the information to criminally investigate or prosecute any alcohol or drug abuse patient.[facility] HospitalIn the event this information is protected by the Federal Confidentiality of Alcohol and Drug Abuse Patient Records regulations: The Federal rules restrict any use of the information to criminally investigate or prosecute any alcohol or drug abuse patient.[facility] HospitalIn the event this information is protected by the Federal Confidentiality of Alcohol and Drug Abuse Patient Records regulations: The Federal rules restrict any use of the information to criminally investigate or prosecute any alcohol or drug abuse patient.[facility] Care Teams (unrecognized sec tion and content) Engraver Automatic Relationship Specialty Start Date End Date Chance Kolb MD [address] [place], [place] [id number] PCP - General Internal Medicine 08/01/10 Engraver Automatic Relationship Specialty Start Date End Date Chance Kolb MD [address] [place], [place] [id number] PCP - General Internal Medicine 08/01/10 Engraver Automatic Relationship Specialty Start Date End Date Chance Kolb MD [address] [place] [address], [place] [address] PCP - General Internal Medicine 08/01/10 Engraver Automatic Relationship Specialty Start Date End Date Chance Kolb MD [address] [place] [address], [place] [address] PCP - General Internal Medicine 08/01/10 Engraver Automatic Relationship Specialty Start Date End Date Chance Kolb MD [address] [place] [address], [place] [address] PCP - General Internal Medicine 08/01/10 Engraver Automatic Relationship Specialty Start Date End Date Chance Kolb MD [address] [place] [address], [place] [address] PCP - General Internal Medicine 08/01/10 Engraver Automatic Relationship Specialty Start Date End Date Chance Kolb MD [address] [place] [address], [place] [address] PCP - General Internal Medicine 08/01/10 Engraver Automatic Relationship Specialty Start Date End Date Chance Kolb MD [address] [place] [address], [place] [address] PCP - General Internal Medicine 08/01/10 Engraver Automatic Relationship Specialty Start Date End Date Chance Kolb MD [address] [place] [address], [place] [address] PCP - General Internal Medicine 08/01/10 Engraver Automatic Relationship Specialty Start Date End Date Chance Kolb MD [address] [place] [address], [place] [address] PCP - General Internal Medicine 08/01/10 Engraver Automatic Relationship Specialty Start Date End Date Chance Kolb MD [address] [place] [address], [place] [address] PCP - General Internal Medicine 08/01/10 Engraver Automatic Relationship Specialty Start Date End Date Chance Kolb MD [address] [place] [address] PCP - General Internal Medicine 08/01/10 Engraver Automatic Relationship Specialty Start Date End Date Chance Kolb MD [address] [place] [address] PCP - General Internal Medicine 08/01/10 Engraver Automatic Relationship Specialty Start Date End Date Chance Kolb MD [address] [place] [address], [place] [address] PCP - General Internal Medicine 08/01/10 Engraver Automatic Relationship Specialty Start Date End Date Chance Kolb MD [address] [place] [address], [place] [address] PCP - General Internal Medicine 08/01/10 Engraver Automatic Relationship Specialty Start Date End Date Chance Kolb MD [address] [place] [address], [place] [address] PCP - General Internal Medicine 08/01/10 Engraver Automatic Relationship Specialty Start Date End Date Chance Kolb MD [address] [place] [address], [place] [address] PCP - General Internal Medicine 08/01/10 Engraver Automatic Relationship Specialty Start Date End Date Chance Kolb MD [address] [place] [address], [place] [address] PCP - General Internal Medicine 08/01/10 Engraver Automatic Relationship Specialty Start Date End Date Chance Kolb MD [address] [place] [address], [place] [address] PCP - General Internal Medicine 08/01/10 Engraver Automatic Relationship Specialty Start Date End Date Chance Kolb MD [address] [place] [address] PCP - General Internal Medicine 08/01/10 Engraver Automatic Relationship Specialty Start Date End Date Chance Kolb MD [address] [place] [address] PCP - General Internal Medicine 08/01/10 Team Status: Active Member Role Status Dates Dr. Chance Kolb MD Family Provider Active Dr. Chance Kolb MD Primary Care Provider Active Team Status: Inactive Member Role Status Dates Dr. Chance Kolb MD Primary Care Provider Active Dr. Arjun Sarabia DO Emergency Provider Active Engraver Automatic Relationship Specialty Start Date End Date Chance Kolb MD [address] [place] [address] PCP - General Internal Medicine 08/01/10 Engraver Automatic Relationship Specialty Start Date End Date Chance Kolb MD [address] [place] [address] PCP - General Internal Medicine 08/01/10 Engraver Automatic Relationship Specialty Start Date End Date Chance Kolb MD [address] [place] [address] PCP - General Internal Medicine 08/01/10 Engraver Automatic Relationship Specialty Start Date End Date Chance Kolb MD [address] [place], [place] [address] PCP - General Internal Medicine 08/01/10 Engraver Automatic Relationship Specialty Start Date End Date Chance Kolb MD [address] [place], [place] [phone] PCP - General Internal Medicine 08/01/10 Engraver Automatic Relationship Specialty Start Date End Date Chance Kolb [address] [place] [address] PCP - General 07/31/16 Engraver Automatic Relationship Specialty Start Date End Date Chance Kolb [address] [place] [address] PCP - General 07/31/16 Engraver Automatic Relationship Specialty Start Date End Date Chance Kolb [address] [place] [address] PCP - General 07/31/16 Engraver Automatic Relationship Specialty Start Date End Date Chance Kolb [address] [place] [address] PCP - General 07/31/16 Engraver Automatic Relationship Specialty Start Date End Date Chance Kolb [address] [place] [address] PCP - General 07/31/16 Engraver Automatic Relationship Specialty Start Date End Date Chance Kolb [address] [place] [address] PCP - General 07/31/16 Engraver Automatic Relationship Specialty Start Date End Date Chance Kolb MD [address] [place] [address] PCP - General Internal Medicine 08/01/10 Engraver Automatic Relationship Specialty Start Date End Date Chance Kolb MD [address] [place] [address] PCP - General Internal Medicine 08/01/10 Engraver Automatic Relationship Specialty Start Date End Date Chance Kolb [address] [place] [address] PCP - General 07/31/16 Engraver Automatic Relationship Specialty Start Date End Date Chance Kolb [address] [place] [address] PCP - General 07/31/16 Engraver Automatic Relationship Specialty Start Date End Date Chance Kolb MD [address] [place] [address] PCP - General Internal Medicine 08/01/10 Engraver Automatic Relationship Specialty Start Date End Date Chance Kolb MD [address] [place] [address] PCP - General Internal Medicine 08/01/10 Engraver Automatic Relationship Specialty Start Date End Date Chance Kolb MD [address] [place] [address] PCP - General Internal Medicine 08/01/10 Engraver Automatic Relationship Specialty Start Date End Date Chance oKlb MD [address] [place] [address] PCP - General Internal Medicine 08/01/10 Engraver Automatic Relationship Specialty Start Date End Date Chance Kolb MD [address] [place] [address] PCP - General Internal Medicine 08/01/10 Engraver Automatic Relationship Specialty Start Date End Date Chance Kolb MD [address] [place] [address] PCP - General Internal Medicine 08/01/10 Engraver Automatic Relationship Specialty Start Date End Date Chance Kolb MD [address] [place] [address] PCP - General Internal Medicine 08/01/10 Engraver Automatic Relationship Specialty Start Date End Date Chance Kolb MD [address] [place] [address] PCP - General Internal Medicine 08/01/10 Engraver Automatic Relationship Specialty Start Date End Date Chance Kolb MD [address] [place] [address] PCP - General Internal Medicine 08/01/10 Engraver Automatic Relationship Specialty Start Date End Date Chance Kolb MD [address] [place] [address] PCP - General Internal Medicine 08/01/10 Engraver Automatic Relationship Specialty Start Date End Date Chance Kolb MD [address] [place] [address] PCP - General Internal Medicine 08/01/10 Engraver Automatic Relationship Specialty Start Date End Date Chance Kolb MD [address] [place] [address] PCP - General Internal Medicine 08/01/10 Engraver Automatic Relationship Specialty Start Date End Date Chance Kolb MD [address] [place] [address] PCP - General Internal Medicine 08/01/10 Engraver Automatic Relationship Specialty Start Date End Date Chance Kolb MD [address] [place] [address] PCP - General Internal Medicine 08/01/10 Engraver Automatic Relationship Specialty Start Date End Date Chance Kolb MD [address] [place] [address] PCP - General Internal Medicine 08/01/10 Engraver Automatic Relationship Specialty Start Date End Date Chance Kolb MD [address] [place] [address] PCP - General Internal Medicine 08/01/10 Engraver Automatic Relationship Specialty Start Date End Date Chance Kolb MD [address] [place] [address] PCP - General Internal Medicine 08/01/10 Nguyễn Stringer, AGENCY SALES MANAGEMENT ASSISTANT.DESK CLERKS SUPERVISOR [address] [place] [address] [employer] [facility] 08/17/24 Malachi Lilly AGENCY SALES MANAGEMENT ASSISTANT.HOME CARE ASSISTANT [address] [place] [address] [employer] [facility] 08/17/24 Engraver Automatic Relationship Specialty Start Date End Date Chance Kolb MD [address] [place] [address] PCP - General Internal Medicine 08/01/10 Nguyễn Stringer, AGENCY SALES MANAGEMENT ASSISTANT.DESK CLERKS SUPERVISOR [address] [place] [address] [employer] [facility] 08/17/24 Malachi Lilly AGENCY SALES MANAGEMENT ASSISTANT.HOME CARE ASSISTANT [address] [place], [place] [address] [facility] 08/17/24 Engraver Automatic Relationship Specialty Start Date End Date Chance Kolb MD [address] [place], [place] [address] PCP - General Internal Medicine 08/01/10 Nguyễn Stringer, AGENCY SALES MANAGEMENT ASSISTANT.DESK CLERKS SUPERVISOR [address] [place], [place] [address] [facility] Internal Medicine 08/17/24 Malachi Lilly AGENCY SALES MANAGEMENT ASSISTANT.HOME CARE ASSISTANT [address] [place] [address] [facility] Internal Medicine 08/17/24 Engraver Automatic Relationship Specialty Start Date End Date Chance Kolb MD [address] [place] [address] PCP - General Internal Medicine 08/01/10 Malachi Lilly AGENCY SALES MANAGEMENT ASSISTANT.HOME CARE ASSISTANT [address] [place] [address] [employer] [facility] 12/01/24 Nguyễn Stringer, AGENCY SALES MANAGEMENT ASSISTANT.DESK CLERKS SUPERVISOR [address] [place] [address] [facility] Internal Medicine 01/27/25 Team Status: Active [...] Active Start: January 06, 2025 Dr. Cedric Gibbnos MD Attending Provider Active Start: January 06, [...] Active Start: February 16, 2025 Dr. Cedric Gbibons MD Attending Provider Active Start: February 16, [...] Provider Active Sta rt: April 01, 2025 Engraver Automatic Relationship Specialty Start Date End Date Chance Kolb MD [address] [facility], [place] [address] PCP - General Internal Medicine 08/01/10 Malachi Lilly AGENCY SALES MANAGEMENT ASSISTANT.HOME CARE ASSISTANT [address] [facility], [place] [id number] [employer] [facility] 12/01/24 Nguyễn Stringer, AGENCY SALES MANAGEMENT ASSISTANT.DESK CLERKS SUPERVISOR [address] [facility], [place] [id number] [employer] [facility] 01/27/25 Team Status: Active Member [...] Active Start: January 19, 2025 Dr. Cedric Gibobns MD Attending Provider Active Start: January 19, [...] Provider Active Start: March 30, 2025 Dr. Chnace Kolb MD Referring Provider Active Start: March 30, 2025 Dr. Cedric Gibobns MD Attending Provider Active Start: March 30, [...] Provider Active Sta rt: May 09, 2025 Engraver Automatic Relationship Specialty Start Date End Date Chance Kolb MD [address] [place] [address] PCP - General Internal Medicine 08/01/10 Malachi Lilly, AGENCY SALES MANAGEMENT ASSISTANT.HOME CARE ASSISTANT [address] [place] [address] [employer] [facility] 12/01/24 Nguyễn Stringer, AGENCY SALES MANAGEMENT ASSISTANT.DESK CLERKS SUPERVISOR [address] [place] [address] [employer] [facility] 01/27/25 Team Status: Active Member [...] COMPLEX 45 MINS Chance Kolb MD [address] [place] [address] [facility] [address] [place] [id number] Referral ID Status Reason Start Date Expiration Date Visits Requested Visits Authorized [id number] Authorized PCP Requested Referral Auto-Generate d Referral 4 06/24/2025 99 99 Reason Comments Physical Therapy Reason Comments Established Patient 4 week post visit le ft 5th fx Reason Comments F/U 6 months Reason Comments Covid19 Concern asymptomatic exposur e x5 days Reason Comments Appointment Cancelled Reason Comments Yearly Exam Reason Comments Results Reason Comments Follow for [facility] Reason Comments Social Work Eval Order Reason Comments home health calling Reason Comments Patient Question Reason Comments Skillled Nursing Evaluation Reason Comments PT Update Reason Comments Home Health Update Reason Comments long term Plan of Care (continued) Reason Onset Date [...] burning sensation.Going to reach out to 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 Suture s need removed from a dog nail abrasion Reason Comments Urinary Frequency x 1 week Reason Comments New Patient Right thumb cyst Specialty Diagnoses / Procedures Referred By Contac t Referred To Contact Radiology Diagnoses Mass of finger of right hand Rupture of flexor pollicis longus muscle Procedures MR hand right wo IV contrast Thea Vail MD [address] [facility] [address] [place] [address] Referral ID Status Reason Start Date Expiration Date Visits Re quested Visits Authorized [id number] Closed 08/12/2023 08/11/2024 1 1 Specialty Diagnoses / Procedures Referred By Contac t Referred To Contact Radiology Diagnoses Mass of finger of right hand Rupture of flexor pollicis longus muscle Procedures MR wrist right wo IV contrast Thea Vail MD [address] [facility] [address] [place] [address] Referral ID Status Reason Start Date Expiration Date Visits Re quested Visits Authorized [id number] Closed 08/12/2023 08/11/2024 1 1 Reason Comments [...] section and content) DATE CREATED AUTHOR 01/10/2024 [facility] DATE CREATED AUTHOR AUTHOR'S ORGANIZ ATION 06/28/2025 [facility] DATE CREATED AUTHOR AUTHOR'S ORGANIZ ATION [...] BE BASED ON THE PRIMARY CLINICAL RECORDS. [facility]. provides no warranty or guarantee of the accuracy or completeness of information in this document.
[2025-08-06 00:06] VITALS: BP 118/49; PULSE 91; RESP 18; TEMP 36.4; O2SAT 97
[2025-08-06 00:10] VITALS: BMI 18.5
--- NOTE | 2025-08-06 00:20 | PCM.HP.STD ---
HPI - General General Date of Admission: 08/05/25 Date of Service: 08/05/25 Chief Complaint: Diarrhea HPI Narrative RUPESH HAIRSTON, is a 74 F who presents worsening diarrhea over the past 1 month with a history of chron's disease Patient had history of Crohn disease on enteral budesonide (oral) and anxiety/depression who had a colonoscopy a month ago and since then she has been having frequent watery diarrhea with mucus associated with abdominal cramping pain and tenesmus. Denies any blood in the stool. She also had nausea and anorexia and was unable to eat but never vomited. She thinks she lost some weight over the last month as well. She says her Crohn disease is usually not active and denies hospitalizations for the disease. She is not on Biologics or immunotherapy. In the ED, patient was slightly hypotensive but afebrile. Labs showed hypokalemia and metabolic acidosis consistent with diarrhea history. CT abdomen pelvis showed large amount of stool and gas in the colon which is consistent with her diarrhea, a short segment of thickened jejunum may suggest enteritis. There was suggestion of low-grade small bowel obstruction but it was not favored GI was consulted, patient will be admitted and managed as flareup of Crohn disease with IV antibiotics and steroids. [facility] Medical History Non-smoker Seizures Non-pressure chronic ulcer of right calf with fat layer exposed Non-pressure chronic ulcer of left calf with fat layer exposed Traumatic open wound of lower leg Avulsion injury GERD (gastroesophageal reflux disease) HTN (hypertension) Hypothyroidism Depression Anxiety Home Medications Medication Instructions Recorded Last Taken Type levothyroxine 25 mcg tablet 25 mcg PO DAILY Check with primary 02/07/15 09/29/16 09:00 History doctor Bacillus coagulans-inulin 1 1 ea PO DAILY Check with primary 12/07/15 09/29/16 09:00 History billion cell-250 mg capsule doctor (Probiotic Formula (inulin)) nifedipine 60 mg tablet,extended 180 mg PO DAILY Check with primary 12/07/15 09/29/16 09:00 History release 24 hr doctor pantoprazole 20 mg tablet,delayed 20 mg PO DAILY STOMACHE 12/07/15 09/29/16 09:00 History release paroxetine HCl 25 mg 75 mg PO DAILY depression 12/07/15 09/29/16 09:00 History tablet,extended release 24 hr (Paxil CR) aspirin 325 mg tablet,delayed 325 mg PO DAILY HEART 04/26/16 09/29/16 09:00 History release budesonide 3 mg 9 mg PO DAILY Check with primary 09/30/16 Unknown History capsule,delayed,extended release doctor (Entocort EC) lorazepam 0.5 mg tablet 0.5 mg PO Q6H PRN PRN Anxiety ##10 10/03/16 Unknown Rx dicyclomine 20 mg tablet 20 mg PO TID Check with primary 09/02/22 Unknown History doctor Metamucil Check with primary doctor 09/07/22 Unknown History food supplemt, lactose-reduced 120 ml PO 4X/DAY Check with 09/07/22 Unknown History 0.08 gram-1.5 kcal/mL oral liquid primary doctor (Ensure Enlive) loperamide 2 mg tablet 2 mg PO Q6H PRN Constipation 09/07/22 Unknown History atorvastatin 80 mg tablet 20 mg (1/4 x 80 mg) PO QHS #30 tabs 09/08/22 Unknown Rx cyclobenzaprine 5 mg tablet 5 mg PO TID PRN muscle spasm #14 03/18/25 Unknown Rx tabs ondansetron 4 mg disintegrating 4 mg PO Q6H PRN nausea and 03/18/25 Unknown Rx tablet vomiting #20 tabs buspirone 30 mg tablet 30 mg PO BID 08/05/25 Unknown History gabapentin 600 mg tablet 600 mg PO BID 08/05/25 Unknown History Allergy/AdvReac Type Severity Reaction Status Date / Time oxycodone (From Percocet) Allergy Light Verified 08/06/25 01:03 headed codeine AdvReac Nausea & Verified 08/05/25 18:39 dizziness oxycodone HCl (From Percocet) AdvReac Nausea & Verified 08/05/25 18:39 dizziness Family History Father Diabetes Dementia Surgical History S/P ORIF (open reduction internal fixation) fracture History of surgery on wrist History of cataract surgery History of ankle surgery Social History household members: none Smoking Status: Never smoker substance use type: does not use ROS Constitutional Constitutional: Reports change in weight and poor appetite; Denies fever(s) ENT HEENT: Reports none Cardiovascular Cardiovascular: Denies chest pain or dyspnea Respiratory/Chest Respiratory/Chest: Denies cough or wheezing Gastrointestinal Gastrointestinal: Reports as per HPI, abdominal pain, anorexia, change in bowel habits, loose stools, tenesmus and weight changes; Denies rectal bleeding or vomiting Genitourinary Genitourinary: Denies change in urinary stream or dysuria Musculoskeletal Musculoskeletal: Denies arthralgias or myalgias Integumentary Integumentary: Reports none Neurologic Neurologic: Denies abnormal speech, dizziness, focal weakness, loss of vision or numbness Hematologic/Lymphatic Hematologic/Lymphatic: Reports none Vital Signs Vital Signs Vital Signs: 08/05/25 18:38 08/05/25 18:39 08/05/25 19:39 Temperature 97.9 F 98.3 F 98.3 F Temperature Source Oral Oral Oral Pulse Rate 97 89 92 Respiratory Rate 15 16 16 Blood Pressure 111/69 118/57 L 108/60 Blood Pressure Mean 83 77 76 Blood Pressure Source Blood Pressure Position Blood Pressure Location Pulse Ox 100 97 97 Oxygen Delivery Method Room Air Room Air Room Air 08/05/25 21:00 08/05/25 22:00 08/05/25 23:00 Temperature 98.3 F 98.3 F 97.6 F L Temperature Source Oral Oral Pulse Rate 86 85 82 Respiratory Rate 19 H 12 18 Blood Pressure 95/57 L 100/52 L 94/52 L Blood Pressure Mean 69 68 66 Blood Pressure Source Blood Pressure Position Blood Pressure Location Pulse Ox 95 100 95 Oxygen Delivery Method Room Air Room Air 08/06/25 00:06 Temperature 97.5 F L Temperature Source Oral Pulse Rate 91 Respiratory Rate 18 Blood Pressure 118/49 L Blood Pressure Mean 72 Blood Pressure Source Monitor Blood Pressure Position Semi-Fowlers Blood Pressure Location Left Arm Pulse Ox 97 Oxygen Delivery Method Room Air Weight Weight: 40 kg Body Mass Index (BMI) 18.5 Physical Exam Const alert and oriented x3 HEENT normocephalic and head/scalp atraumatic Eyes EOMs intact bilaterally; Negative for no scleral icterus Neck supple Resp normal respiratory effort and clear to auscultation bilaterally Cardio regular rate and regular rhythm; Negative for no murmurs GI non-tender Auscultation: hyperactive bowel sounds Palpation: tender no CVA tenderness Extremity no joint enlargement and no pedal edema Skin no rashes or lesions noted Neuro oriented x3 and moves all extremities Results Lab / Micro Data 08/05/25 18:50 08/05/25 18:50 Labs: Laboratory Results - last 24 hr 08/05/25 18:15: Magnesium 2.0 08/05/25 18:50: WBC 8.2, RBC 4.98, Hgb 15.1 H, Hct 46.7, MCV 93.8, MCH 30.3, MCHC 32.3, RDW Std Deviation 44.8 H, RDW Coeff of Amber 13.0, Plt Count 268, MPV 9.1, Immature Gran % (Auto) 0.200, Neut % (Auto) 69.2, Lymph % (Auto) 19.4, [place] % (Auto) 9.7, Eos % (Auto) 1.1, Baso % (Auto) 0.4, Absolute Neuts (auto) 5.7, Absolute Lymphs (auto) 1.60, Nucleated RBC % 0, Sodium 143, Potassium 3.1 L, Chloride 108, Carbon Dioxide 20.1 L, Anion Gap 16 H, BUN 11, Creatinine 0.89, Estim Creat Clear Calc 35.35 L, Est GFR (MDRD) Non-Af 68, BUN/Creatinine Ratio 12.1, Glucose 112 H, Calcium 9.2, Total Bilirubin 0.21, AST 19, ALT 17, Alkaline Phosphatase 57, Total Protein 7.3, Albumin 4.5, Globulin 2.8, Albumin/Globulin Ratio 1.6, Lipase 29 08/05/25 20:20: Urine Color Yellow, Urine Clarity Clear, Urine pH 6.0, Ur Specific [place] 1.020, Urine Protein 30 H, Urine Glucose (UA) Normal, Urine Ketones Negative, Urine Occult Blood 50 H, Urine Nitrite Positive H, Urine Bilirubin Negative, Urine Urobilinogen Normal, Ur Leukocyte Esterase 25 H, Urine RBC 0-5 SEEN, Urine WBC 0-5 SEEN, Ur Squamous Epith Cells 0-5 SEEN, Urine Bacteria 3+, Hyaline Casts 0-5 SEEN, Urine Mucus 0 SEEN Micro: Microbiology 08/05/25 20:15 Stool Stool Lactoferrin - Final 08/05/25 20:15 Stool Clostridioides difficile (PCR) - Final Imaging Radiology Impression Abdomen/Pelvis CT 08/05/25 20:31 IMPRESSION: Small hiatal hernia. Large amount of stool and air within the colon. A low-grade partial small bowel obstruction can not be entirely excluded, however not favored. Short segment of thickened jejunum in the left side of the abdomen could represent focal enteritis. Additional nonacute findings, as described above. Reading Location: [facility] Assessment & Plan Assessment/Plan (1) Exacerbation of Crohn's disease: QUALIFIERS: Digestive disease complication type: without complication Qualified Code(s): K50.90 - Crohn's disease, unspecified, without complications (2) Hypokalemia: (3) Raynaud phenomenon: QUALIFIERS: Raynaud?s-associated gangrene presence: without gangrene Qualified Code(s): I73.00 - Raynaud's syndrome without gangrene (4) Hypothyroidism: QUALIFIERS: Hypothyroidism type: acquired Qualified Code(s): E03.9 - Hypothyroidism, unspecified (5) Anxiety: (6) Depression: QUALIFIERS: Depression Type: unspecified Qualified Code(s): F32.9 - Major depressive disorder, single episode, unspecified PLAN: Plan 74-year-old female with history of Crohn's disease comes in with symptoms of excessive diarrhea with mucus, abdominal pain and enteritis on CT scan compatible with exacerbation of Crohn's disease. Will be admitted to [facility] floor Crohn's exacerbation: GI consultation IV Cipro and Flagyl. IV hydrocortisone Stool lactoferrin positive. Check ESR and CRP C. difficile negative. Follow-up stool pathogen panel. Hypokalemia Patient is dehydrated from diarrhea, was unable to eat or drink. D5 LR at low rate Raynaud's phenomenon: Continue home dose of nifedipine 180 mg. Monitor blood pressure closely Anxiety/depression Continue home medications including Ativan, Paxil, buspirone Hypothyroidism: Continue Synthroid Charges/Coding Visit Charges Inpatient E&M: 01205 Init Hosp L3
--- NOTE | 2025-08-06 00:32 | ED.VIS.GI ---
HPI HPI - GI History of Present Illness Chief Complaint: Diarrhea Informant: patient Narrative Narrative: Patient is 74-year-old female reported history of GERD, hypothyroidism, Raynaud's phenomenon and Crohn's disease. She states she follows up with digestive [place], Dr. Swan and Jesus. She states that she been having issues with diarrhea and had a colonoscopy a month ago. She notes that since then she has been having ongoing significant diarrhea. She states that she takes Imodium A-D she will be okay for a day or 2 but then she will have diarrhea up to 10 times a day. Denies any black or blood in her stool. Denies any history of C. difficile. Denies any nausea or vomiting with this. States she does have associated cramping abdominal pain. States she does get lightheaded sometimes. Denies associated chest pain. Is on budesonide for her Crohn's disease. [facility] Medical History Non-smoker Seizures Non-pressure chronic ulcer of right calf with fat layer exposed Non-pressure chronic ulcer of left calf with fat layer exposed Traumatic open wound of lower leg Avulsion injury GERD (gastroesophageal reflux disease) HTN (hypertension) Hypothyroidism Depression Anxiety Home Medications Medication Instructions Recorded Last Taken Type levothyroxine 25 mcg tablet 25 mcg PO DAILY Check with primary 02/07/15 09/29/16 09:00 History doctor Bacillus coagulans-inulin 1 1 ea PO DAILY Check with primary 12/07/15 09/29/16 09:00 History billion cell-250 mg capsule doctor (Probiotic Formula (inulin)) nifedipine 60 mg tablet,extended 180 mg PO DAILY Check with primary 12/07/15 09/29/16 09:00 History release 24 hr doctor pantoprazole 20 mg tablet,delayed 20 mg PO DAILY STOMACHE 12/07/15 09/29/16 09:00 History release paroxetine HCl 25 mg 75 mg PO DAILY depression 12/07/15 09/29/16 09:00 History tablet,extended release 24 hr (Paxil CR) aspirin 325 mg tablet,delayed 325 mg PO DAILY HEART 04/26/16 09/29/16 09:00 History release budesonide 3 mg 9 mg PO DAILY Check with primary 09/30/16 Unknown History capsule,delayed,extended release doctor (Entocort EC) lorazepam 0.5 mg tablet 0.5 mg PO Q6H PRN PRN Anxiety ##10 10/03/16 Unknown Rx dicyclomine 20 mg tablet 20 mg PO TID Check with primary 09/02/22 Unknown History doctor Metamucil Check with primary doctor 09/07/22 Unknown History food supplemt, lactose-reduced 120 ml PO 4X/DAY Check with 09/07/22 Unknown History 0.08 gram-1.5 kcal/mL oral liquid primary doctor (Ensure Enlive) loperamide 2 mg tablet 2 mg PO Q6H PRN Constipation 09/07/22 Unknown History atorvastatin 80 mg tablet 20 mg (1/4 x 80 mg) PO QHS #30 tabs 09/08/22 Unknown Rx cyclobenzaprine 5 mg tablet 5 mg PO TID PRN muscle spasm #14 03/18/25 Unknown Rx tabs ondansetron 4 mg disintegrating 4 mg PO Q6H PRN nausea and 03/18/25 Unknown Rx tablet vomiting #20 tabs buspirone 30 mg tablet 30 mg PO BID 08/05/25 Unknown History gabapentin 600 mg tablet 600 mg PO BID 08/05/25 Unknown History Allergy/AdvReac Type Severity Reaction Status Date / Time acetaminophen (From Percocet) Allergy Other Verified 08/05/25 18:39 oxycodone (From Percocet) Allergy Other Verified 08/05/25 18:39 codeine AdvReac Nausea & Verified 08/05/25 18:39 dizziness oxycodone HCl (From Percocet) AdvReac Nausea & Verified 08/05/25 18:39 dizziness Family History Father Diabetes Dementia Surgical History S/P ORIF (open reduction internal fixation) fracture History of surgery on wrist History of cataract surgery History of ankle surgery Social History household members: none Smoking Status: Never smoker substance use type: does not use ROS ROS ED Constitutional Constitutional ED: Denies chills or fever(s) Respiratory/Chest Respiratory/Chest: Denies cough Gastrointestinal Gastrointestinal: Reports abdominal pain and diarrhea; Denies melena, nausea or vomiting Genitourinary Genitourinary ED: Denies dysuria Musculoskeletal Musculoskeletal: Denies arthralgias or myalgias Integumentary Denies rash Neurologic Neurologic: Reports weakness Psychiatric Psychiatric: Reports anxiety Hematologic/Lymphatic Hematologic/Lymphatic: Denies easy bleeding or easy bruising EXAM Physical Exam Const Vital Signs: 08/05/25 18:38 08/05/25 18:39 08/05/25 19:39 Temperature 97.9 F 98.3 F 98.3 F Temperature Source Oral Oral Oral Pulse Rate 97 89 92 Respiratory Rate 15 16 16 Blood Pressure 111/69 118/57 L 108/60 Blood Pressure Mean 83 77 76 Pulse Ox 100 97 97 Oxygen Delivery Method Room Air Room Air Room Air 08/05/25 21:00 08/05/25 22:00 08/05/25 23:00 Temperature 98.3 F 98.3 F 97.6 F L Temperature Source Oral Oral Pulse Rate 86 85 82 Respiratory Rate 19 H 12 18 Blood Pressure 95/57 L 100/52 L 94/52 L Blood Pressure Mean 69 68 66 Pulse Ox 95 100 95 Oxygen Delivery Method Room Air Room Air Positive cachectic Constitutional Narrative: Chronically ill-appearing, frail General Appearance ED: cachectic; Negative for pallor Nutritional Appearance: cachectic HEENT Reports dry mucous membranes normocephalic and atraumatic Mouth ED: Yes dry mucous membranes Mouth: dry mucous membranes Eyes General Eye ED: Negative for pale conjunctiva Neck supple Resp normal respiratory effort and clear to auscultation bilaterally Cardio regular rate and regular rhythm GI Inspection: Negative for abdominal distention Auscultation: hyperactive bowel sounds Palpation: soft and tender other (Diffuse, mild); Negative for guarding, rigid or mass Extremity full ROM General Extremety ED: Negative for edema General Extremity: Negative for edema Neuro moves all extremities Sensorium / Orientation: alert, oriented to person, oriented to place and oriented to time Motor Exam: general weakness Psych mental status grossly normal and thought process normal Skin no wounds General Skin Exam: Negative for jaundice or pallor MDM MDM MDM Narrative Medical decision making narrative: Patient evaluated for ongoing relatively severe diarrhea. Does have a history of Crohn's disease. Differential includes electrolyte derangement, dehydration, CATIE, Crohn's exacerbation, infectious colitis as well as other colitis. Workup including CBC, CMP, magnesium and lipase as well as urinalysis is obtained. Patient given IV fluids in the emergency room. She is able provide a stool study which is negative for C. difficile but does show elevated stool lactoferrin. Enteric panel still pending. Urinalysis does show positive nitrites with 3+ bacteria but no white blood cells or significant leukocyte esterase. Will send off for culture but hold off on treatment at this time. CT of the abdomen pelvis does show multiple abnormalities including small hiatal hernia, large amount of stool and air within the colon with questionable low grade partial small bowel obstruction cannot be entirely excluded and there is also short segment of thickened jejunum in the left side of the abdomen could represent focal enteritis. Given that she is not reporting nausea and vomiting is actually having diarrhea lower suspicion for obstruction. Suspect if anything it might be functional associated with some chronic constipation. Do not think requires emergent surgical intervention or consult at this time. Patient feels uncomfortable discharge home. I did speak with Dr. Richardson who states given the patient's age, frailty and symptoms she is likely having a Crohn's flare and given that there is involvement of her small bowel would benefit from admission. Recommends treating with Cipro and Flagyl as well as hydrocortisone 100 mg every 8. Patient started on these in the emergency room. Patient agreeable this plan of care. Patient does have mild hypokalemia is given oral potassium replacement in the emergency room. Lab Data Labs: Laboratory Results - last 24 hr 08/05/25 08/05/25 08/05/25 18:15 18:50 20:20 WBC 8.2 RBC 4.98 Hgb 15.1 H Hct 46.7 MCV 93.8 MCH 30.3 MCHC 32.3 RDW Std Deviation 44.8 H RDW Coeff of Amber 13.0 Plt Count 268 MPV 9.1 Immature Gran % (Auto) 0.200 Neut % (Auto) 69.2 Lymph % (Auto) 19.4 [place] % (Auto) 9.7 Eos % (Auto) 1.1 Baso % (Auto) 0.4 Absolute Neuts (auto) 5.7 Absolute Lymphs (auto) 1.60 Nucleated RBC % 0 Sodium 143 Potassium 3.1 L Chloride 108 Carbon Dioxide 20.1 L Anion Gap 16 H BUN 11 Creatinine 0.89 Estim Creat Clear Calc 35.35 L Est GFR (MDRD) Non-Af 68 BUN/Creatinine Ratio 12.1 Glucose 112 H Calcium 9.2 Magnesium 2.0 Total Bilirubin 0.21 AST 19 ALT 17 Alkaline Phosphatase 57 Total Protein 7.3 Albumin 4.5 Globulin 2.8 Albumin/Globulin Ratio 1.6 Lipase 29 Urine Color Yellow Urine Clarity Clear Urine pH 6.0 Ur Specific [place] 1.020 Urine Protein 30 H Urine Glucose (UA) Normal Urine Ketones Negative Urine Occult Blood 50 H Urine Nitrite Positive H Urine Bilirubin Negative Urine Urobilinogen Normal Ur Leukocyte Esterase 25 H Urine RBC 0-5 SEEN Urine WBC 0-5 SEEN Ur Squamous Epith Cells 0-5 SEEN Urine Bacteria 3+ Hyaline Casts 0-5 SEEN Urine Mucus 0 SEEN Radiography Diagnostic Testing: Clinical Impression(s) from Imaging Studies Abdomen/Pelvis CT 08/05/25 20:31 IMPRESSION: Small hiatal hernia. Large amount of stool and air within the colon. A low-grade partial small bowel obstruction can not be entirely excluded, however not favored. Short segment of thickened jejunum in the left side of the abdomen could represent focal enteritis. Additional nonacute findings, as described above. Reading Location: [id number] Management Discussion w/another healthcare provider: Hospitalist and Topology Teacher Discharge Plan Dx/Rx/DC Orders Clinical Impression: Exacerbation of Crohn's disease, Acute hypokalemia, Weakness Disposition Disposition: Acute Care Hospital [facility] Discharge Date/Time: 08/05/25 23:49
[2025-08-06] MEDS: metroNIDAZOLE 500 MG/100 ML BAG 100 MG IV ×4 (00:46→21:28)
[2025-08-06] MEDS: MELATONIN 3 MG TABLET PO ×2 (01:00→21:51)
[2025-08-06] MEDS: Lactobacillis Acidophilus 1 CAP PO ×3 (04:34→21:32)
[2025-08-06 04:37] VITALS: BP 103/56; PULSE 88; RESP 16; TEMP 36.6; O2SAT 97
[2025-08-06 05:43] LABS: Hematocrit 39.9 % (37-47); Hemoglobin 13.2 g/dL (12.0-15.0); Immature Granulocytes Count 0.020 X10^3/uL (0.0-0.0); Mean Corp Hgb Conc 33.1 g/dL (32-36); Mean Corpuscular Volume 93.2 fL (81-99); Mean Platelet Vol. 9.3 fl (6.2-12.0); NRBC Flagged by Analyzer 0 % (0-5); POSITIVE DIFFERENTIAL YES; Platelet Count 219 K/mm3 (150-450); RBC Distribution Width CV 13.2 % (11.6-14.6); RBC Distribution Width SD 45.1 fl (35.1-43.9); Red Blood Count 4.28 M/mm3 (4.2-5.4); White Blood Count 8.5 K/mm3 (4.4-11.0)
[2025-08-06 06:14] LABS: Anion Gap 12 (5-15); BUN 8 mg/dL (4-19); BUN/Creat Ratio 10.7 RATIO (10-20); Calcium,Total 8.4 mg/dL (7.6-11.0); Carbon Dioxide 19.8 mmol/L (21.0-32.0); Chloride 111 mmol/L (98-108); Estimated Creatinine Clearance 38.37 ml/min (50-250); Glucose 150 mg/dL (70-99); Magnesium 2.0 mg/dL (1.5-2.2); Potassium 3.7 mmol/L (3.3-5.1)
[2025-08-06 09:00] VITALS: BP 100/58; PULSE 76; RESP 16; TEMP 36.4; O2SAT 99
[2025-08-06] MEDS: Budesonide 3 MG CAPSULE.EC 9 MG PO (10:28)
[2025-08-06] MEDS: NIFEdipine 60 MG Tablet 180 MG PO (10:29)
[2025-08-06] MEDS: PARoxetine CR 12.5 MG Tablet 75 MG PO (10:29)
[2025-08-06] MEDS: 0.9% Normal Saline (250mL Bag) 250 ML 15 ML IV (10:40)
--- NOTE | 2025-08-06 11:08 | CASEMGMT ---
DANYELL WARD Assessment: Face to Face with pt for initial transition planning/care coordination assessment. DANYELL WARD introduced self and role at [facility], pt voices understanding and consents to assessment. Pt is A&O x4 and answers all questions appropriately at this time. Pt lying in bed in no distress with at bedside. Care providers, pharmacy, and demographics verified/updated. Admitting Dx: acute crohn disease flareup Strata Score: 2 PCP:Santiago Specialists:HARJINDER Swan; nestor Moore Preferred Pharmacy: [facility] Insurance: Justin SIMPSON Sr Supp Prescription Benefit: yes LNOK: Cleve Pappas, Living Arrangements: Pt lives with in a two story home with 2 steps to enter. Pt reports she is I in ADLs but does IADLs such as cooking, laundry and grocery shopping. Pt denies concerns at home. Transportation: Pt does not drive, transports pt as needed. DME:cane, walker, grab bars in bathroom, shower chair, hh shower head HHC/SNF: Pt has had [facility] HHC in the past and has been to [facility]. Pt states no concerns with going home at time of dc. Pt states she only uses the cane when she is out. Pt denies need for any HHC after this hospital stay. Pt denies feeling weak. Noted pt 6 cl=18, pt denies need for therapy eval. Pt is aware that if she changes her mind or starts to feel weak to notify nurse production or plant engineer SYLVIA. Pt states no further concerns/needs. CM to follow. Advised pt to ask CM if any further questions/concerns/needs arise, voices understanding. Pt Goal:Home Plan: Home with assistance Yves CHILD CM
[2025-08-06 12:39] LABS: CRP 17.50 mg/L (0.0-3.0)
--- NOTE | 2025-08-06 13:02 | CON.PCM.GI_ITS ---
HPI Consult Data Date of Consult: 08/06/25 HPI Narrative HPI Narrative: RUPESH HAIRSTON, is a 74-year-old female with a possible history of Crohn’s disease who presented to the Emergency Department with a 1-month history of worsening diarrhea, abdominal cramping pain, and tenesmus. She describes frequent watery diarrhea with mucus but denies any blood in the stool. She also reports associated nausea, anorexia, and weight loss. She denies vomiting. She had a colonoscopy one month prior to presentation, following which her symptoms began. The patient is currently on enteral budesonide for Crohn’s disease. She states her Crohn’s is typically inactive and denies prior hospitalizations for the disease. She has never been on biologics or immunotherapy. * Vitals: Slightly hypotensive, afebrile. * Labs: * Hypokalemia * Metabolic acidosis (consistent with diarrhea) * Normal ESR, CRP, WBC count, and LFTs. * Stool Studies: * Negative for enteric pathogens. * Negative for C. difficile. * Positive for white blood cells. * Imaging: * CT abdomen/pelvis showed a large amount of stool and gas in the colon, a short segment of thickened jejunum possibly suggestive of enteritis, and suggestion of low-grade small bowel obstruction (not favored). ] [facility] Medical History Non-smoker Seizures Non-pressure chronic ulcer of right calf with fat layer exposed Non-pressure chronic ulcer of left calf with fat layer exposed Traumatic open wound of lower leg Avulsion injury GERD (gastroesophageal reflux disease) HTN (hypertension) Hypothyroidism Depression Anxiety Home Medications Medication Instructions Recorded Last Taken Type levothyroxine 25 mcg tablet 25 mcg PO DAILY Check with primary 02/07/15 09/29/16 09:00 History doctor Bacillus coagulans-inulin 1 1 ea PO DAILY Check with p rimary 12/07/15 09/29/16 09:00 History billion cell-250 mg capsule doctor (Probiotic Formula (inulin)) nifedipine 60 mg tablet,extended 180 mg PO DAILY Check with primary 12/07/15 09/29/16 09:00 History release 24 hr doctor pantoprazole 20 mg tablet,delayed 20 mg PO DAILY [facility] 12/07/15 09/29/16 09:00 History release paroxetine HCl 25 mg 75 mg PO DAILY depression 09/29/16 09:00 History tablet,extended release 24 hr (Paxil CR) aspirin 325 mg tablet,delayed 325 mg PO DAILY HEART 09/29/16 09:00 History release budesonide 3 mg 9 mg PO DAILY Check with moose mcmillan 09/30/16 Unknown History capsule,delayed,extended release doctor (Entocort EC) lorazepam 0.5 mg tablet 0.5 mg PO Q6H PRN PRN Anxiet y ##10 10/03/16 Unknown Rx dicyclomine 20 mg tablet 20 mg PO TID Check with prim lesley 09/02/22 Unknown History doctor Metamucil Check with primary doctor Unknown History food supplemt, lactose-reduced 120 ml PO 4X/DAY Check with 09/07/22 Unknown History 0.08 gram-1.5 kcal/mL oral liquid primary doctor (Ensure Enlive) loperamide 2 mg tablet 2 mg PO Q6H PRN Constipation 09/07/22 Unknown History atorvastatin 80 mg tablet 20 mg (1/4 x 80 mg) PO QHS # 30 tabs 09/08/22 Unknown Rx cyclobenzaprine 5 mg tablet 5 mg PO TID PRN muscle spa sm #14 03/18/25 Unknown Rx tabs ondansetron 4 mg disintegrating 4 mg PO Q6H PRN nausea and 03/18/25 Unknown Rx tablet vomiting #20 tabs buspirone 30 mg tablet 30 mg PO BID 08/05/25 Unknow n History gabapentin 600 mg tablet 600 mg PO BID 08/05/25 Unkno wn History Allergy/AdvReac Type Severity Reaction Status Date / Time oxycodone (From Percocet) Allergy Light Verified 08/06/25 01:03 headed codeine AdvReac Nausea & Verified 08/05/25 18:39 dizziness oxycodone HCl (From Percocet) AdvReac Nausea & Verified 08/05/25 18:39 dizziness Family History Father Diabetes Dementia Surgical History S/P ORIF (open reduction internal fixation) fracture History of surgery on wrist History of cataract surgery History of ankle surgery Social History household members: none Smoking Status: Never smoker substance use type: does not use ROS Constitutional Constitutional: Denies fatigue, fever(s), poor appetite, weight gain or weight loss Gastrointestinal Gastrointestinal: Denies belching, bloating, change in bowel habits, change in stool character, chewing difficulty, coffee ground emesis, constipation, cramping, diarrhea, dyspepsia, dysphagia, early satiety, excessive flatus, fecal incontinence, heartburn, hematemesis, hematochezia, hemorrhoids, loose stools, melena, nausea, odynophagia, rectal bleeding, tenesmus, vomiting or weight changes Physical Exam Const alert, oriented x3, no apparent distress and healthy appearing General Appearance: cooperative GI normal to inspection, nondistended, normoactive bowel sounds, soft to palpation, non-tender and non-distended Percussion: normal to percussion Rectal Exam: deferred Medical Records Data Medical Nutrition Assessment Dietitian: Malnutrition Criteria Met Start: 08/06/25 11:24 Freq: Status: Active Protocol: Document 08/06/25 11:24 SLA (Rec: 08/06/25 11:24 SLA [id number]) Nutrition Malnutrition Evidence of Yes Malnutrition Exists Malnutrition (severe Acute Illness/Injury ): Evidenced By Suboptimal Energy Intake (Severe),Weight Loss (Severe) Clinical Problem Acute Disease or Injury Related Malnutrition Etiology related to GI dysfunction and issues w/ nausea, diarrhea and poor appetite Signs/Symptoms as evidenced by 5% unplanned wt loss and po intake <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 Will continue to follow and monitor for changes in pt nutritional status and make additional rec as indicated . Lab / Micro Data 08/06/25 04:34 08/06/25 04:34 Labs: Laboratory Results - last 24 hr 08/05/25 18:15: Magnesium 2.0 08/05/25 18:50: WBC 8.2, RBC 4.98, Hgb 15.1 H, Hct 46.7, MCV 93.8, MCH 30.3, MCHC 32.3, RDW Std Deviation 44.8 H, RDW Coeff of Amber 13.0, Plt Count 268, MPV 9.1, Immature Gran % (Auto) 0.200, Neut % (Auto) 69.2, Lymph % (Auto) 19.4, [place] % (Auto) 9.7, Eos % (Auto) 1.1, Baso % (Auto) 0.4, Absolute Neuts (auto) 5.7, Absolute Lymphs (auto) 1.60, Nucleated RBC % 0, ESR 18, Sodium 143, Potassium 3.1 L, Chloride 108, Carbon Dioxide 20.1 L, Anion Gap 16 H, BUN 11, Creatinine 0.89, Estim Creat Clear Calc 35.35 L, Est GFR (MDRD) Non-Af 68, BUN/Creatinine Ratio 12.1, Glucose 112 H, Calcium 9.2, Total Bilirubin 0.21, AST 19, ALT 17, Alkaline Phosphatase 57, C-React Prot Ext Range 17.50 H, Total Protein 7.3, Albumin 4.5, Globulin 2.8, Albumin/Globulin Ratio 1.6, Lipase 29 08/05/25 20:20: Urine Color Yellow, Urine Clarity Clear, Urine pH 6.0, Ur Specific [place] 1.020, Urine Protein 30 H, Urine Glucose (UA) Normal, Urine Ketones Negative, Urine Occult Blood 50 H, Urine Nitrite Positive H, Urine Bilirubin Negative, Urine Urobilinogen Normal, Ur Leukocyte Esterase 25 H, Urine RBC 0-5 SEEN, Urine WBC 0-5 SEEN, Ur Squamous Epith Cells 0-5 SEEN, Urine Bacteria 3+, Hyaline Casts 0-5 SEEN, Urine Mucus 0 SEEN 08/06/25 04:34: WBC 8.5, RBC 4.28, Hgb 13.2, Hct 39.9, MCV 93.2, MCH 30.8, MCHC 33.1, RDW Std Deviation 45.1 H, RDW Coeff of Amber 13.2, Plt Count 219, MPV 9.3, Immature Gran % (Auto) 0.200, Neut % (Auto) 91.4 H, Lymph % (Auto) 7.1 L, [place] % (Auto) 1.2, Eos % (Auto) 0.0, Baso % (Auto) 0.1, Absolute Neuts (auto) 7.8 H, A bsolute Lymphs (auto) 0.60 L, Nucleated RBC % 0, Sodium 142, Potassium 3.7, C hloride 111 H, Carbon Dioxide 19.8 L, Anion Gap 12, BUN 8, Creatinine 0.76, E stim Creat Clear Calc 38.37 L, Est GFR (MDRD) Non-Af 82, BUN/Creatinine Ratio 10.7, Glucose 150 H, Calcium 8.4, Magnesium 2.0 Micro: Microbiology 08/05/25 20:15 Stool Stool Lactoferrin - Final 08/05/25 20:15 Stool Enteric Bacteriology - Final 08/05/25 20:15 Stool Clostridioides difficile (PCR) - Final Imaging Radiology Impression Abdomen/Pelvis CT 08/05/25 20:31 IMPRESSION: Small hiatal hernia. Large amount of stool and air within the colon. A low-grade partial small bowel obstruction can not be entirely excluded, however not favored. Short segment of thickened jejunum in the left side of the abdomen could represent focal enteritis. Additional nonacute findings, as described above. Reading Location: [id number] Assessment & Plan Assessment/Plan (1) Exacerbation of Crohn's disease: (2) Partial small bowel obstruction: PLAN: The patient presents with an acute, severe diarrheal illness complicated by electrolyte abnormalities (hypokalemia, metabolic acidosis) and potential dehydration/hypotension. * Severe Diarrhea/Gastroenteritis: The onset of symptoms following a colonoscopy raised suspicion for infectious etiologies; however, stool studies were negative for common pathogens and C. difficile. The positive fecal WBCs indicate an inflammatory process. The rapid resolution of symptoms with IV antibiotics and steroids points towards an inflammatory enteritis or colitis, possibly related to her underlying Crohn’s disease flare or an infectious agent not covered by standard stool studies (e.g., atypical bacterial infection, post-instrumentation infection). * Crohn's Disease: While the patient usually has inactive disease, the presentation is consistent with an acute flare of inflammatory bowel disease (IBD), specifically enteritis suggested by the CT scan. She is currently managed with budesonide. * Partial Small Bowel Obstruction (SBO): The CT noted a suggestion of a low- grade SBO, but this was not the primary clinical picture based on the diarrhea predominance and was not favored by the consulting service. The significant response to medical management (antibiotics/steroids) further suggests inflammation rather than a mechanical obstruction. Plan * Management: Patient was admitted and started on IV antibiotics and IV steroids. Symptoms are reported to be "a lot better," and diarrhea has ceased. * Monitoring: Continue close monitoring of vital signs, fluid status, and electrolyte levels (daily BMP). * Disposition: Continue inpatient management. Based on clinical improvement, the plan is to transition to oral medications when stable and tolerating oral intake, followed by discharge home with appropriate follow-up with Gastroenterology. * Diagnostics: I will repeat her CT scan abdomen pelvis but with oral contrast. No other immediate diagnostics indicated at this time given excellent response to current therapy. * Review the pathology from the recent colonoscopy if available to rule out other causes of colitis. * Portions of this note were generated using voice recognition software ([employer]). I have reviewed the contents and every effort has been made to ensure accuracy; however, inadvertent errors in grammar, spelling, punctuation, or word choice may occur, that were not noted before signing the document and should not alter the intended clinical meaning. Charges/Coding Visit Charges Inpatient E&M: 16756 Init Hosp L3
[2025-08-06 14:24] VITALS: BP 94/57; PULSE 77; RESP 16; TEMP 36.5; O2SAT 100
--- NOTE | 2025-08-06 15:14 | CT_ITS ---
PROCEDURE: ABDOMEN/PELVIS WITH CONTRAST 08/06/2025 REASON FOR EXAM: PARTIAL SMALL BOWEL OBSTRUCTION TECHNIQUE: Procedure Code: CTABDPELW Modality: CT Procedure: ABDOMEN/PELVIS WITH CONTRAST Coronal and Sagittal reconstruction series were provided. CONTRAST: Isovue 370 VOLUME: 75 mL One or more dose reduction techniques were used (e.g., Automated exposure control, adjustment of the mA and/or kV according to patient size, use of iterative reconstruction technique. RADIATION DOSE SUMMARY: CTDlvol: 5.17 mGy DLP: 229.4 mGycm COMPARISON: CT abdomen and pelvis August 05, 2025. FINDINGS: Lung bases: Clear. Small hiatal hernia measures 2.7 cm. Liver: Unremarkable. Gallbladder: Unremarkable. No biliary dilation. Spleen: Unremarkable. Pancreas: Unremarkable. Adrenals: Unremarkable. Kidneys: Unremarkable. No hydronephrosis. No nephrolithiasis. Bladder: Unremarkable. Reproductive Organs: Unremarkable. Bowel: Persistent but decrease in dilation of small bowel loops with the contrast is filling the 2/3 of the bowel loop. The colon is filled with fecal material. The sigmoid colon and rectum are decompressed. Appendix: Unremarkable. Lymph nodes: No lymphadenopathy. Vasculature: No aneurysm. Peritoneum / Retroperitoneum: No free air or free fluid. Bones: Multilevel degenerate changes of the lumbar spine. Status post surgical correction of right femoral fracture. No additional acute bony abnormalities. CT/Abdomen/Pelvis WITH Contrast IMPRESSION: Persistent but decrease in dilation of small bowel loops with the contrast is f illing the 2/3 of the small bowel consistent with obstruction. The colon is filled with fecal material. The sigmoid colon and r ectum are decompressed. Follow-up with abdominal x-ray may be performed. Reading Location: [facility]
--- NOTE | 2025-08-06 20:23 | EX.PCM.CON.S ---
Assessment & Plan Assessment/Plan (1) Partial small bowel obstruction: PLAN: Patient is a 74-year-old female who is admitted for possible Crohn's disease exacerbation but now diagnosed with possible partial small bowel obstruction and prior assumption of inflammatory bowel disease is cast into some doubt. Clinically patient does not describe a history consistent with a partial small bowel obstruction nor is her exam particularly concerning for this diagnosis. Her CT imaging from earlier today simply shows partial transit of the enteric contrast through the small bowel but no true transition zone and no dilation of her stomach. In fact, radiology comments that overall the small bowel caliber is less than previous exam. There is a large fecal burden noted in the colon. Taking this clinical picture in its entirety I suspect Mrs. Pappas is simply still experiencing the effects of her Imodium and now has a large amount of dehydrated stool in her rectal vault and distal colon. Therefore, it is my recommendation to proceed with a bowel regimen per rectum starting with Dulcolax suppository this evening. Will plan to obtain a KUB in the a.m. to monitor the transit of patient's enteric contrast that was administered as part of her CAT scan earlier. Will continue to perform serial abdominal exams but ultimately recommending continuing n.p.o. status, IV fluid support, and notification of surgery of any changes. More broadly recommend obtaining outside GI records to determine if patient has been formally given a diagnosis of Crohn's disease. Isaac Reddy MD General Surgery Endocrine Surgery Pager: [facility] [address] [place] [address], [address] [place] [id number] Office: [phone] HPI Consult Data Date of Consult: 08/06/25 HPI Narrative Reason for Consultation: Partial small bowel obstruction HPI Narrative: RUPESH PAPPAS, is a 74 F who is admitted to [facility] following an ER presentation yesterday where she was suspected to have evidence of a acute Crohn's flare. Gastroenterology has been consulted and began conservative measures accordingly, however, there is now some doubt as to whether patient has a true diagnosis of inflammatory bowel disease. Although patient has regular follow-up with gastroenterology for the past 25 years, this is through an outside system. Patient shares that she was previously diagnosed with IBS and is uncertain whether she has ever been formally labeled as having Crohn's, but she notes seeing it multiple times on her charting. She shares that approximately a month ago she noted bright red blood per rectum and was concerned to then reported to her GI. She states hemorrhoids were suspected but colonoscopy was scheduled and ultimately completed on 07/05/2025 to further evaluate. Mrs. Pappas reports that since that time she has had nearly uncontrollable diarrhea and the only thing that seems to make a difference with this symptom is use of Imodium A-D. She states that she did make her proposal rep aware of this fact and was advised to be tested for C. difficile which she did through [facility] and ultimately was given a negative result. She shares that earlier this week she had a particularly bad bout of diarrhea and doubled down on her dose of Imodium which brought resolution to the diarrhea but she has yet to have a bowel movement since taking that medication. Ms. Pappas denies any prior abdominal surgical history. Patient states she presently overall feels well but has had some intermittent nausea. She deals with reflux as a general rule and denies it being any worse than usual. She denies any recent passage of flatus. She states that earlier today she was tolerating a clear liquid diet. [facility] Medical History Non-smoker Seizures Non-pressure chronic ulcer of right calf with fat layer exposed Non-pressure chronic ulcer of left calf with fat layer exposed Traumatic open wound of lower leg Avulsion injury GERD (gastroesophageal reflux disease) HTN (hypertension) Hypothyroidism Depression Anxiety Home Medications Medication Instructions Recorded Last Taken Type levothyroxine 25 mcg tablet 25 mcg PO DAILY Check with primary 02/07/15 09/29/16 09:00 History doctor Bacillus coagulans-inulin 1 1 ea PO DAILY Check with primary 12/07/15 09/29/16 09:00 History billion cell-250 mg capsule doctor (Probiotic Formula (inulin)) nifedipine 60 mg tablet,extended 180 mg PO DAILY Check with primary 12/07/15 09/29/16 09:00 History release 24 hr doctor pantoprazole 20 mg tablet,delayed 20 mg PO DAILY STOM[facility] 12/07/15 09/29/16 09:00 History release paroxetine HCl 25 mg 75 mg PO DAILY depression 12/07/15 09/29/16 09:00 History tablet,extended release 24 hr (Paxil CR) aspirin 325 mg tablet,delayed 325 mg PO DAILY HEART 04/26/16 09/29/16 09:00 History release budesonide 3 mg 9 mg PO DAILY Check with primary 09/30/16 Unknown History capsule,delayed,extended release doctor (Entocort EC) lorazepam 0.5 mg tablet 0.5 mg PO Q6H PRN PRN Anxiety ##10 10/03/16 Unknown Rx dicyclomine 20 mg tablet 20 mg PO TID Check with primary 09/02/22 Unknown History doctor Metamucil Check with primary doctor 09/07/22 Unknown History food supplemt, lactose-reduced 120 ml PO 4X/DAY Check with 09/07/22 Unknown History 0.08 gram-1.5 kcal/mL oral liquid primary doctor (Ensure Enlive) loperamide 2 mg tablet 2 mg PO Q6H PRN Constipation 09/07/22 Unknown History atorvastatin 80 mg tablet 20 mg (1/4 x 80 mg) PO QHS #30 tabs 09/08/22 Unknown Rx cyclobenzaprine 5 mg tablet 5 mg PO TID PRN muscle spasm #14 03/18/25 Unknown Rx tabs ondansetron 4 mg disintegrating 4 mg PO Q6H PRN nausea and 03/18/25 Unknown Rx tablet vomiting #20 tabs buspirone 30 mg tablet 30 mg PO BID 08/05/25 Unknown History gabapentin 600 mg tablet 600 mg PO BID 08/05/25 Unknown History Allergy/AdvReac Type Severity Reaction Status Date / Time oxycodone (From Percocet) Allergy Light Verified 08/06/25 01:03 headed codeine AdvReac Nausea & Verified 08/05/25 18:39 dizziness oxycodone HCl (From Percocet) AdvReac Nausea & Verified 08/05/25 18:39 dizziness Family History Father Diabetes Dementia Surgical History S/P ORIF (open reduction internal fixation) fracture History of surgery on wrist History of cataract surgery History of ankle surgery Social History household members: none Smoking Status: Never smoker substance use type: does not use Physical Exam Const alert, oriented x3 and no apparent distress Constitutional Narrative: Patient appears comfortable General Appearance: cooperative GI GI Narrative: Minimally distended, soft, mildly tender to palpation over the left lower quadrant Medical Records Data Medical Nutrition Assessment Dietitian: Malnutrition Criteria Met Start: 08/06/25 11:24 Freq: Status: Active Protocol: Document 08/06/25 11:24 [facility] (Rec: 08/06/25 11:24 SLA [id number]) Nutrition Malnutrition Evidence of Yes Malnutrition Exists Malnutrition (severe Acute Illness/Injury ): Evidenced By Suboptimal Energy Intake (Severe),Weight Loss (Severe) Clinical Problem Acute Disease or Injury Related Malnutrition Etiology related to GI dysfunction and issues w/ nausea, diarrhea and poor appetite Signs/Symptoms as evidenced by 5% unplanned wt loss and 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 Will continue to follow and monitor for changes in pt nutritional status and make additional rec as indicated . Lab / Micro Data 08/06/25 04:34 08/06/25 04:34 Labs: Laboratory Results - last 24 hr 08/05/25 18:15: Magnesium 2.0 08/05/25 18:50: ESR 18, C-React Prot Ext Range 17.50 H 08/05/25 20:20: Urine Color Yellow, Urine Clarity Clear, Urine pH 6.0, Ur Specific [place] 1.020, Urine Protein 30 H, Urine Glucose (UA) Normal, Urine Ketones Negative, Urine Occult Blood 50 H, Urine Nitrite Positive H, Urine Bilirubin Negative, Urine Urobilinogen Normal, Ur Leukocyte Esterase 25 H, Urine RBC 0-5 SEEN, Urine WBC 0-5 SEEN, Ur Squamous Epith Cells 0-5 SEEN, Urine Bacteria 3+, Hyaline Casts 0-5 SEEN, Urine Mucus 0 SEEN 08/06/25 04:34: WBC 8.5, RBC 4.28, Hgb 13.2, Hct 39.9, MCV 93.2, MCH 30.8, MCHC 33.1, RDW Std Deviation 45.1 H, RDW Coeff of Amber 13.2, Plt Count 219, MPV 9.3, Immature Gran % (Auto) 0.200, Neut % (Auto) 91.4 H, Lymph % (Auto) 7.1 L, [place] % (Auto) 1.2, Eos % (Auto) 0.0, Baso % (Auto) 0.1, Absolute Neuts (auto) 7.8 H, Absolute Lymphs (auto) 0.60 L, Nucleated RBC % 0, Sodium 142, Potassium 3.7, Chloride 111 H, Carbon Dioxide 19.8 L, Anion Gap 12, BUN 8, Creatinine 0.76, Estim Creat Clear Calc 38.37 L, Est GFR (MDRD) Non-Af 82, BUN/Creatinine Ratio 10.7, Glucose 150 H, Calcium 8.4, Magnesium 2.0 Micro: Microbiology 08/05/25 20:15 Stool Stool Lactoferrin - Final 08/05/25 20:15 Stool Enteric Bacteriology - Final 08/05/25 20:15 Stool Clostridioides difficile (PCR) - Final Imaging Radiology Impression Abdomen/Pelvis CT 08/05/25 20:31 IMPRESSION: Small hiatal hernia. Large amount of stool and air within the colon. A low-grade partial small bowel obstruction can not be entirely excluded, however not favored. Short segment of thickened jejunum in the left side of the abdomen could represent focal enteritis. Additional nonacute findings, as described above. Reading Location: [id number] Abdomen/Pelvis CT 08/06/25 15:14 IMPRESSION: Persistent but decrease in dilation of small bowel loops with the contrast is filling the 2/3 of the small bowel consistent with obstruction. The colon is filled with fecal material. The sigmoid colon and rectum are decompressed. Follow-up with abdominal x-ray may be performed. Reading Location: [id number] Charges/Coding Visit Charges Inpatient E&M: 34700 Init Hosp L2
[2025-08-06 21:35] VITALS: BP 98/52; PULSE 94; RESP 16; TEMP 36.6; O2SAT 97
[2025-08-07 03:39] VITALS: BP 98/66; PULSE 84; RESP 16; TEMP 36.4; O2SAT 94
[2025-08-07] MEDS: metroNIDAZOLE 500 MG/100 ML BAG 100 MG IV ×3 (05:02→21:49)
[2025-08-07 05:31] LABS: Hematocrit 36.1 % (37-47); Hemoglobin 12.1 g/dL (12.0-15.0); Immature Granulocytes Count 0.050 X10^3/uL (0.0-0.0); Mean Corp Hgb Conc 33.5 g/dL (32-36); Mean Corpuscular Volume 91.4 fL (81-99); Mean Platelet Vol. 9.3 fl (6.2-12.0); NRBC Flagged by Analyzer 0 % (0-5); POSITIVE DIFFERENTIAL YES; Platelet Count 210 K/mm3 (150-450); RBC Distribution Width CV 12.9 % (11.6-14.6); RBC Distribution Width SD 42.9 fl (35.1-43.9); Red Blood Count 3.95 M/mm3 (4.2-5.4); White Blood Count 6.5 K/mm3 (4.4-11.0)
--- NOTE | 2025-08-07 05:45 | RAD_ITS ---
PROCEDURE: ABDOMEN SINGLE VIEW (PORTABLE) 08/07/2025 REASON FOR EXAM: F/U PO CONTRAST FROM PRIOR CT TECHNIQUE: Procedure Code: RADABD_P Modality: DX Procedure: ABDOMEN SINGLE VIEW (PORTABLE) COMPARISON: CT scan on 08/06/2025. FINDINGS: Contrast is noted in the colon on the current exam. Moderate diffuse spondylosis. Contrast is noted in the bladder. Unremarkable metallic hardware of the right femur. Chronic deformities of the right superior and inferior pubic rami. There is an unremarkable bowel gas pattern. There is no demonstrated free abdominal air. Normal visualized liver. Normal visualized spleen. Normal visualized kidneys. The soft tissue structures of the pelvis are unremarkable. RAD/Abdomen Single View (Portable) IMPRESSION: Contrast is noted in the colon on the current exam. Moderate diffuse spondylosis. Contrast is noted in the bladder. Unremarkable metallic hardware of the right femur. Chronic deformities of the right superior and inferior pubic rami. Reading Location[facility]
[2025-08-07 05:54] LABS: AST(SGOT) 17 U/L (<=31); Alanine Aminotransfer ALT/SGPT 9 U/L (<=34); Albumin, Serum 3.5 g/dL (3.4-4.8); Alkaline Phosphatase 42 U/L (35-104); Anion Gap 12 (5-15); BUN 8 mg/dL (4-19); BUN/Creat Ratio 11.0 RATIO (10-20); Calcium,Total 8.4 mg/dL (7.6-11.0); Carbon Dioxide 20.4 mmol/L (21.0-32.0); Chloride 108 mmol/L (98-108); Estimated Creatinine Clearance 38.37 ml/min (50-250); Globulin 2.0 g/dL (2.2-4.2); Glucose 142 mg/dL (70-99); Potassium 2.9 mmol/L (3.3-5.1)
[2025-08-07] MEDS: Lactobacillis Acidophilus 1 CAP PO ×3 (06:04→21:49)
[2025-08-07 09:00] VITALS: RESP 18
[2025-08-07 09:20] VITALS: BP 96/60; PULSE 87; RESP 16; TEMP 37; O2SAT 98
--- NOTE | 2025-08-07 10:17 | PN.HOSP_ITS ---
Subjective Subjective Doing well, no issues overnight. Continues to have frequent but small bowel movements Objective Data Objective Data Vital Signs: Vital Signs Temp Pulse Resp BP Pulse Ox O2 Del Method 98.6 F 87 16 96/60 98 Room Air 08/07/25 09:20 08/07/25 09:20 08/07/25 09:20 08/07/25 09:20 08/07/25 09:20 08/07/25 09:20 Oxygen Delivery Method Room Air Weight: 88 lb 2.958 oz Body Mass Index (BMI) 18.5 Intake & Output: Intake and Output for Last 24 Hours 08/06/25 08/07/25 08/08/25 03:59 03:59 03:59 Intake Total 906.67 / 906.67 1254.5 / 1254.5 200 / 200 Balance 906.67 / 906.67 1254.5 / 1254.5 200 / 200 Medical Nutrition Assessment Dietitian: Malnutrition Criteria Met Start: 08/06/25 11:24 Freq: Status: Active Protocol: Document 08/06/25 11:24 SLA (Rec: 08/06/25 11:24 SLA [id number]) Nutrition Malnutrition Evidence of Yes Malnutrition Exists Malnutrition (severe Acute Illness/Injury ): Evidenced By Suboptimal Energy Intake (Severe),Weight Loss (Severe) Clinical Problem Acute Disease or Injury Related Malnutrition Etiology related to GI dysfunction and issues w/ nausea, diarrhea and poor appetite Signs/Symptoms as evidenced by 5% unplanned wt loss and 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 Will continue to follow and monitor for changes in pt nutritional status and make additional rec as indicated . Lab / Micro Data 08/07/25 04:18 08/07/25 04:18 Labs: Laboratory Results - last 24 hr 08/05/25 18:50: C-React Prot Ext Range 17.50 H 08/07/25 04:18: WBC 6.5, RBC 3.95 L, Hgb 12.1, Hct 36.1 L, MCV 91.4, MCH 30.6, MCHC 33.5, RDW Std Deviation 42.9, RDW Coeff of Amber 12.9, Plt Count 210, MPV 9.3, Immature Gran % (Auto) 0.800, Neut % (Auto) 88.2 H, Lymph % (Auto) 8.4 L, [place] % (Auto) 2.1, Eos % (Auto) 0.3, Baso % (Auto) 0.2, Absolute Neuts (auto) 5.8, Absolute Lymphs (auto) 0.55 L, Nucleated RBC % 0, Sodium 140, Potassium 2.9 L, Chloride 108, Carbon Dioxide 20.4 L, Anion Gap 12, BUN 8, Creatinine 0.69 L, Estim Creat Clear Calc 38.37 L, Est GFR (MDRD) Non-Af 90, BUN/Creatinine Ratio 11.0, Glucose 142 H, Calcium 8.4, Total Bilirubin 0.17, AST 17, ALT 9, Alkaline Phosphatase 42, Total Protein 5.5 L, Albumin 3.5, Globulin 2.0 L, Albumin/Globulin Ratio 1.8 Micro: Microbiology 08/05/25 20:20 Urine, Random Urine Culture - Preliminary GNR lactose bander 08/05/25 20:15 Stool Stool Lactoferrin - Final 08/05/25 20:15 Stool Enteric Bacteriology - Final 08/05/25 20:15 Stool Clostridioides difficile (PCR) - Final Radiography Diagnostic Testing: Radiology Impression Abdomen/Pelvis CT 08/06/25 15:14 IMPRESSION: Persistent but decrease in dilation of small bowel loops with the contrast is filling the 2/3 of the small bowel consistent with obstruction. The colon is filled with fecal material. The sigmoid colon and rectum are decompressed. Follow-up with abdominal x-ray may be performed. Reading Location: [facility] X-Ray 08/07/25 05:45 IMPRESSION: Contrast is noted in the colon on the current exam. Moderate diffuse spondylosis. Contrast is noted in the bladder. Unremarkable metallic hardware of the right femur. Chronic deformities of the right superior and inferior pubic rami. Reading Location: [place] [address] Physical Exam Narrative General: Alert, Oriented x3, Cooperative, No apparent distress HEENT: Atraumatic, PERRLA, EOMI, Normocephalic Oral: Moist Mucosa Neck: Supple, No JVD Lungs: Diminished, Normal air movement, No rhonchi, No wheeze, No rales Cardiovascular: Regular rate, Regular Rhythm, Normal S1, Normal S2, No murmurs Abdomen: Soft, minimal TTP to LLQ, Non-Distended, No Hepato-splenomegaly Extremities: No edema, Capillary Refill Less than 3 Seconds Skin: No rashes, No breakdown Musculoskeletal: No Tenderness to Palpation of Joints or Extremities Neurological: No focal neurological deficits, moves all extremities Psych/Mental Status: Normal Affect, Appropriate Assessment & Plan Assessment/Plan (1) Exacerbation of Crohn's disease: QUALIFIERS: Digestive disease complication type: without complication Qualified Code(s): K50.90 - Crohn's disease, unspecified, without complications (2) Hypokalemia: PLAN: Plan 1. Crohn's exacerbation with hypokalemia/GERD – Initially some concern for small bowel obstruction however contrast has mated into the colon therefore we will advance her diet to a full liquid – Continue with antibiotics and she is on thyroid – Appreciate general surgery and GI's assistance – Stool studies are negative for any infection with a positive lactoferrin – ESR is 18 with a CRP of 17.5 – Continue with PPI 2. Anxiety/depression – Stable – Continue with her home medications 3. Hypothyroidism – Stable – Continue with her home medications DVT: Lovenox Charges/Coding Visit Charges Inpatient E&M: 76413 Subs Hosp L2
--- NOTE | 2025-08-07 10:42 | PN.SURG_ITS ---
Subjective Subjective Patient seen and evaluated during a.m. rounds. She is found resting in bed. She reports that she is continue to pass flatus and has had several small bowel movements. Objective Data Objective Data Vital Signs: Vital Signs Temp Pulse Resp BP Pulse Ox O2 Del Method 98.6 F 87 16 96/60 98 Room Air 08/07/25 09:20 08/07/25 09:20 08/07/25 09:20 08/07/25 09:20 08/07/25 09:20 08/07/25 09:20 Oxygen Delivery Method Room Air Weight: 88 lb 2.958 oz Body Mass Index (BMI) 18.5 Intake & Output: Intake and Output for Last 24 Hours 08/05/25 08/06/25 08/07/25 23:59 23:59 23:59 Intake Total 500 / 500 1661.17 / 1661.17 200 / 200 Balance 500 / 500 1661.17 / 1661.17 200 / 200 Medical Nutrition Assessment Dietitian: Malnutrition Criteria Met Start: 08/06/25 11:24 Freq: Status: Active Protocol: Document 08/06/25 11:24 SLA (Rec: 08/06/25 11:24 SLA [id number]) Nutrition Malnutrition Evidence of Yes Malnutrition Exists Malnutrition (severe Acute Illness/Injury ): Evidenced By Suboptimal Energy Intake (Severe),Weight Loss (Severe) Clinical Problem Acute Disease or Injury Related Malnutrition Etiology related to GI dysfunction and issues w/ nausea, diarrhea and poor appetite Signs/Symptoms as evidenced by 5% unplanned wt loss and 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 Will continue to follow and monitor for changes in pt nutritional status and make additional rec as indicated . Lab / Micro Data 08/07/25 04:18 08/07/25 04:18 Labs: Laboratory Results - last 24 hr 08/05/25 18:50: C-React Prot Ext Range 17.50 H 08/07/25 04:18: WBC 6.5, RBC 3.95 L, Hgb 12.1, Hct 36.1 L, MCV 91.4, MCH 30.6, MCHC 33.5, RDW Std Deviation 42.9, RDW Coeff of Amber 12.9, Plt Count 210, MPV 9.3, Immature Gran % (Auto) 0.800, Neut % (Auto) 88.2 H, Lymph % (Auto) 8.4 L, [place] % (Auto) 2.1, Eos % (Auto) 0.3, Baso % (Auto) 0.2, Absolute Neuts (auto) 5.8, Absolute Lymphs (auto) 0.55 L, Nucleated RBC % 0, Sodium 140, Potassium 2.9 L, Chloride 108, Carbon Dioxide 20.4 L, Anion Gap 12, BUN 8, Creatinine 0.69 L, Estim Creat Clear Calc 38.37 L, Est GFR (MDRD) Non-Af 90, BUN/Creatinine Ratio 11.0, Glucose 142 H, Calcium 8.4, Total Bilirubin 0.17, AST 17, ALT 9, Alkaline Phosphatase 42, Total Protein 5.5 L, Albumin 3.5, Globulin 2.0 L, Albumin/Globulin Ratio 1.8 Micro: Microbiology 08/05/25 20:20 Urine, Random Urine Culture - Preliminary GNR lactose junior brand manager 08/05/25 20:15 Stool Stool Lactoferrin - Final 08/05/25 20:15 Stool Enteric Bacteriology - Final 08/05/25 20:15 Stool Clostridioides difficile (PCR) - Final Radiography Diagnostic Testing: Radiology Impression Abdomen/Pelvis CT 08/06/25 15:14 IMPRESSION: Persistent but decrease in dilation of small bowel loops with the contrast is filling the 2/3 of the small bowel consistent with obstruction. The colon is filled with fecal material. The sigmoid colon and rectum are decompressed. Follow-up with abdominal x-ray may be performed. Reading Location: [facility] X-Ray 08/07/25 05:45 IMPRESSION: Contrast is noted in the colon on the current exam. Moderate diffuse spondylosis. Contrast is noted in the bladder. Unremarkable metallic hardware of the right femur. Chronic deformities of the right superior and inferior pubic rami. Reading Location: [place] [address] Physical Exam Const oriented x3 and no apparent distress Resp normal respiratory effort GI GI Narrative: Nondistended, soft, mild tenderness with palpation of the left lower quadrant still. Mildly tympanic with percussion of the right upper quadrant Assessment & Plan Assessment/Plan (1) Partial small bowel obstruction: PLAN: Patient is a 74-year-old female who is admitted for possible Crohn's disease exacerbation but now diagnosed with possible partial small bowel obstruction and prior assumption of inflammatory bowel disease is cast into some doubt. Clinically patient does not describe a history consistent with a partial small bowel obstruction nor is her exam particularly concerning for this diagnosis. Overnight patient was administered 1 dose of Dulcolax via rectal suppository and this resulted in several small bowel movements. KUB obtained this morning does show transit of contrast from prior CT scan to the colon–effectively excluding complete mechanical obstruction. Patient's exam and updated history seem to make this even more unlikely. Therefore, from a surgical standpoint, patient could be advanced to liquid diet and would plan to continue bowel regimen from below until having more regular stools as there is a persistent fecal burden with patient's radiograph. Defer further management to GI and primary service. Isaac Reddy MD General Surgery Endocrine Surgery Pager: [facility] [address] [place] [address], [facility], [address] [place] [address] Office: [phone] Charges/Coding Visit Charges Inpatient E&M: 54058 Subs Hosp L2
[2025-08-07 11:11] LABS: Magnesium 1.9 mg/dL (1.5-2.2)
[2025-08-07] MEDS: Budesonide 3 MG CAPSULE.EC 9 MG PO (11:22)
[2025-08-07] MEDS: NIFEdipine 60 MG Tablet 180 MG PO (11:23)
[2025-08-07] MEDS: PARoxetine CR 12.5 MG Tablet 75 MG PO (11:23)
[2025-08-07] MEDS: Potassium Chloride Oral Tablet 20 MEQ 40 MEQ PO (14:00)
[2025-08-07 15:00] VITALS: BP 101/52; PULSE 99; RESP 16; RESP 18; TEMP 37.2; O2SAT 98
[2025-08-07 21:00] VITALS: BP 109/60; PULSE 100; RESP 16; TEMP 36.8; O2SAT 97
[2025-08-07] MEDS: MELATONIN 3 MG TABLET PO (21:46)
[2025-08-07] MEDS: 0.9% Saline Lock 10 ML Syringe IV (21:49)
[2025-08-08 05:00] VITALS: BP 93/62; PULSE 71; RESP 16; TEMP 36.5; O2SAT 95
[2025-08-08] MEDS: metroNIDAZOLE 500 MG/100 ML BAG 100 MG IV (05:09)
[2025-08-08] MEDS: Lactobacillis Acidophilus 1 CAP PO (05:09)
[2025-08-08 05:33] LABS: Anion Gap 13 (5-15); BUN 11 mg/dL (4-19); BUN/Creat Ratio 16.1 RATIO (10-20); Calcium,Total 8.7 mg/dL (7.6-11.0); Carbon Dioxide 19.7 mmol/L (21.0-32.0); Chloride 109 mmol/L (98-108); Estimated Creatinine Clearance 38.37 ml/min (50-250); Glucose 157 mg/dL (70-99); Potassium 3.0 mmol/L (3.3-5.1)
--- NOTE | 2025-08-08 07:25 | PCM.PN.SRG ---
Subjective Subjective Patient seen and examined during AM rounds. She is found resting in bed. She states she is feeling much better than when she arrived. She states she is having ongoing bowel movements that are formed. She denies any intolerance of a diet. Objective Data Objective Data Vital Signs: Vital Signs Temp Pulse Resp BP Pulse Ox O2 Del Method 97.7 F L 71 16 93/62 95 Room Air 08/08/25 05:00 08/08/25 05:00 08/08/25 05:00 08/08/25 05:00 08/08/25 05:00 08/08/25 05:00 Oxygen Delivery Method Room Air Weight: 88 lb 2.958 oz Body Mass Index (BMI) 18.5 Intake & Output: Intake and Output for Last 24 Hours 08/06/25 08/07/25 08/08/25 23:59 23:59 23:59 Intake Total 1661.17 / 1661.17 1999 200 / 200 Output Total 3 / 3 Balance 1661.17 / 1661.17 1996 200 / 200 Medical Nutrition Assessment Dietitian: Malnutrition Criteria Met Start: 08/06/25 11:24 Freq: Status: Active Protocol: Document 08/06/25 11:24 SLA (Rec: 08/06/25 11:24 SLA [id number]) Nutrition Malnutrition Evidence of Yes Malnutrition Exists Malnutrition (severe Acute Illness/Injury ): Evidenced By Suboptimal Energy Intake (Severe),Weight Loss (Severe) Clinical Problem Acute Disease or Injury Related Malnutrition Etiology related to GI dysfunction and issues w/ nausea, diarrhea and poor appetite Signs/Symptoms as evidenced by 5% unplanned wt loss and po intake <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 Will continue to follow and monitor for changes in pt nutritional status and make additional rec as indicated . Lab / Micro Data 08/07/25 04:18 08/08/25 03:15 Labs: Laboratory Results - last 24 hr 08/07/25 04:18: Phosphorus 2.8, Magnesium 1.9 08/08/25 03:15: Sodium 142, Potassium 3.0 L, Chloride 109 H, Carbon Dioxide 19.7 L, Anion Gap 13, BUN 11, Creatinine 0.70, Estim Creat Clear Calc 38.37 L, Est GFR (MDRD) Non-Af 90, BUN/Creatinine Ratio 16.1, Glucose 157 H, Calcium 8.7 Micro: Microbiology 08/05/25 20:20 Urine, Random Urine Culture - Preliminary GNR lactose control room agent 08/05/25 20:15 Stool Stool Lactoferrin - Final 08/05/25 20:15 Stool Enteric Bacteriology - Final 08/05/25 20:15 Stool Clostridioides difficile (PCR) - Final Physical Exam Const oriented x3 and no apparent distress Resp normal respiratory effort GI GI Narrative: Nondistended, soft, very minimally tender (improved) to palpation of the left lower quadrant Assessment & Plan Assessment/Plan (1) Partial small bowel obstruction: PLAN: Patient is a 74-year-old female who is admitted for possible Crohn's disease exacerbation but now diagnosed with possible partial small bowel obstruction and prior assumption of inflammatory bowel disease is cast into some doubt. Clinically patient does not describe a history consistent with a partial small bowel obstruction nor is her exam particularly concerning for this diagnosis. Patient further clinically improved with consistent bowel function and tolerance of diet. This excludes any bowel obstruction. Patient is persistently hypokalemic so I did recommend repletion of potassium but find no cause for further surgical involvement and will therefore sign off. I am told by hospitalist service that discharge home is planned for later today. Isaac Reddy MD General Surgery Endocrine Surgery Pager: [facility] [address] [place] [address], [facility], [address] [place] [address] Office: [phone] Charges/Coding Visit Charges Inpatient E&M: 48382 Subs Hosp L2
--- NOTE | 2025-08-08 08:06 | DCINST_ITS ---
Discharge Instructions DC O2, CPAP, BIPAP needs Home O2 Discharge instructions: No Dressing / Incision Discharge Activity: Return to Normal Activity Dressing / Incision Call your doctor if you observe: Fever of 101 or Higher, Shortness of breath, Dizziness, Fainting spells, Swelling in the ankles, Chest pain and Increased palpitations (irregular heartbeat) Follow Up Care Test Results: Test results from this visit will be discussed in further detail at your follow- up appointment, if applicable. Discharge Plan Admission Admit Date/Time: 08/05/25 23:24 Attending Provider: Livan Meza Primary Care Provider: Katey Henderson Consulting Providers: Aquiles Richardson; Renate Oswald; Isaac Reddy Instructions Additional Instructions / Restrictions: Follow-up with your PCP in 3 to 5 days to monitor your lab work and make adjustments to your discharge medications. Also follow-up with your original gastroenterology doctor for posthospital follow-up and then you can attempt to transition to Dr. Richardson at this facility Discharge Orders/Prescriptions Prescriptions: New ciprofloxacin HCl [Cipro] 250 mg tablet 250 mg PO BID 7 Days Qty: 14 0RF prednisone 20 mg tablet 40 mg PO DAILY 7 Days Qty: 14 0RF metronidazole 500 mg tablet 500 mg PO Q8H 7 Days Qty: 21 0RF potassium chloride [K-Tab] 20 mEq tablet extended release 20 meq PO DAILY 20 Days Qty: 20 0RF Continued levothyroxine 25 MCG tablet 25 mcg PO DAILY Patient Comments: thyroid pantoprazole 20 MG tablet 20 mg PO DAILY Patient Comments: acid reflux nifedipine 60 MG tablet 180 mg PO DAILY Patient Comments: heart rate Probiotic Formula (inulin) 1 EACH capsule 1 ea PO DAILY Patient Comments: stomach; treat IBS paroxetine HCl [Paxil CR] 25 MG tablet extended release 24 hr 75 mg PO DAILY Patient Comments: Treat major depressive disorder aspirin 325 MG tablet 325 mg PO DAILY Patient Comments: blood thinner budesonide [Entocort EC] 3 MG capsule,delayed,extend.release 9 mg PO DAILY lorazepam 0.5 MG tablet 0.5 mg PO Q6H PRN PRN (Reason: Anxiety) Qty: 10 0RF dicyclomine 20 mg tablet 20 mg PO TID Ensure Enlive 120 ML liquid 120 ml PO 4X/DAY loperamide 2 mg Tablet 2 mg PO Q6H PRN (Reason: Constipation) Metamucil atorvastatin 80 mg Tablet 20 mg PO QHS Qty: 30 0RF ondansetron 4 mg tablet,disintegrating 4 mg PO Q6H PRN (Reason: nausea and vomiting) Qty: 20 0RF cyclobenzaprine 5 mg tablet 5 mg PO TID PRN (Reason: muscle spasm) Qty: 14 0RF gabapentin 600 mg tablet 600 mg PO BID buspirone 30 mg tablet 30 mg PO BID Referrals / Follow Up: Katey Henderson MD [Primary Care Provider, Internal Medicine] - Within 1 Week Disposition Disposition (needs filled in before D/C Order can be placed): Home, Self Care
[2025-08-08] MEDS: Potassium Chloride Oral Tablet 20 MEQ 40 MEQ PO (08:39)
[2025-08-08] MEDS: Budesonide 3 MG CAPSULE.EC 9 MG PO (08:39)
[2025-08-08] MEDS: NIFEdipine 60 MG Tablet 180 MG PO (08:40)
[2025-08-08] MEDS: PARoxetine CR 12.5 MG Tablet 75 MG PO (08:42)
[2025-08-08 08:48] VITALS: BP 101/80; PULSE 103; RESP 16; TEMP 37.2; O2SAT 96
[2025-08-08 10:54] VITALS: BP 108/63; PULSE 102; RESP 18; TEMP 37.1; O2SAT 98
--- NOTE | 2025-08-08 12:53 | PCM.DC.SUM ---
Providers Date of Admission: 08/05/25 Primary Care Physician: Dr. Katey Henderson MD Consultations 08/06/25 02:41 Consult: Gastroenterology Routine Consulting Provider: Aquiles Richardson Reason for Consult: Crohn's flareup EMERGENT Consult: No Notified: Yes Date Notified: 08/06/25 Time Notified: 02:41 Method of Notification: ED Physician Initiated 08/06/25 17:55 Consult: General Surgery Routine Consulting Provider: Isaac Reddy Reason for Consult: possible bowel obstruction EMERGENT Consult: No Notified: Yes Date Notified: 08/06/25 Time Notified: 17:57 Method of Notification: Verbal Comments:: already notified by Dr. Richardson Reason For Visit: ACUTE CROHN DISEASE FLAREUP Diagnosis Discharge Diagnosis (1) Partial small bowel obstruction: Status: Acute Code(s): K56.600 - Partial intestinal obstruction, unspecified as to cause Medications at Discharge Home Medications levothyroxine 25 mcg tablet 25 mcg PO DAILY Check with primary doctor 02/07/15 Bacillus coagulans-inulin 1 billion cell-250 mg capsule (Probiotic Formula (inulin)) 1 ea PO DAILY Check with primary doctor 12/07/15 nifedipine 60 mg tablet,extended release 24 hr 180 mg PO DAILY Check with primary doctor 12/07/15 pantoprazole 20 mg tablet,delayed release 20 mg PO DAILY STOMACHE 12/07/15 paroxetine HCl 25 mg tablet,extended release 24 hr (Paxil CR) 75 mg PO DAILY depression 12/07/15 aspirin 325 mg tablet,delayed release 325 mg PO DAILY HEART 04/26/16 budesonide 3 mg capsule,delayed,extended release (Entocort EC) 9 mg PO DAILY Check with primary doctor 09/30/16 lorazepam 0.5 mg tablet 0.5 mg PO Q6H PRN PRN Anxiety ##10 10/03/16 dicyclomine 20 mg tablet 20 mg PO TID Check with primary doctor 09/02/22 Metamucil Check with primary doctor 09/07/22 food supplemt, lactose-reduced 0.08 gram-1.5 kcal/mL oral liquid (Ensure Enlive) 120 ml PO 4X/DAY Check with primary doctor 09/07/22 loperamide 2 mg tablet 2 mg PO Q6H PRN Constipation 09/07/22 atorvastatin 80 mg tablet 20 mg (1/4 x 80 mg) PO QHS #30 tabs 09/08/22 cyclobenzaprine 5 mg tablet 5 mg PO TID PRN muscle spasm #14 tabs 03/18/25 ondansetron 4 mg disintegrating tablet 4 mg PO Q6H PRN nausea and vomiting #20 tabs 03/18/25 buspirone 30 mg tablet 30 mg PO BID 08/05/25 gabapentin 600 mg tablet 600 mg PO BID 08/05/25 ciprofloxacin HCl 250 mg tablet (Cipro) 250 mg PO BID 7 days #14 tabs 08/08/25 metronidazole 500 mg tablet 500 mg PO Q8H 7 days #21 tabs 08/08/25 potassium chloride 20 mEq tablet,extended release (K-Tab) 20 meq PO DAILY 20 days #20 tabs 08/08/25 prednisone 20 mg tablet 40 mg (2 x 20 mg) PO DAILY 7 days #14 tabs 08/08/25 Hospital Course Operations None Procedures None Summary of Care Provided Minutes Spent on Discharge: 35 Hospital Course: Per HPI: RUPESH HAIRSTON, is a 74 F who presents worsening diarrhea over the past 1 month with a history of chron's disease Patient had history of Crohn disease on enteral budesonide (oral) and anxiety/depression who had a colonoscopy a month ago and since then she has been having frequent watery diarrhea with mucus associated with abdominal cramping pain and tenesmus. Denies any blood in the stool. She also had nausea and anorexia and was unable to eat but never vomited. She thinks she lost some weight over the last month as well. She says her Crohn disease is usually not active and denies hospitalizations for the disease. She is not on Biologics or immunotherapy. In the ED, patient was slightly hypotensive but afebrile. Labs showed hypokalemia and metabolic acidosis consistent with diarrhea history. CT abdomen pelvis showed large amount of stool and gas in the colon which is consistent with her diarrhea, a short segment of thickened jejunum may suggest enteritis. There was suggestion of low-grade small bowel obstruction but it was not favored GI was consulted, patient will be admitted and managed as flareup of Crohn disease with IV antibiotics and steroids. Hospital Course: 1. Crohn's exacerbation with hypokalemia/GERD–74-year-old female with a history of Crohn's disease presents to the hospital with a Crohn's flare. She is on budesonide p.o. at home at baseline but she started having increased diarrhea and abdominal pain. She is currently on Cipro and Flagyl as well as hydrocortisone which controlled her symptoms. She was able to tolerate a regular diet today with no abdominal pain and her stools have solidified. I discussed with her the possibility for discharge and she expressed understanding of the risks and benefits of going home and would like to go home today. In discussion with gastroenterology she was discharged on 7 days of p.o. prednisone 40 mg daily as well as Cipro and Flagyl for 7 more days as well. 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 She would like to transition her care to gastroenterology down here but at least for this post hospital stay visit I think it would be faster to get into her primary maintenance apprentice and then work on transferring her care down here. She did have a hypokalemia that was being replaced and I discharged her on 20 mEq daily for 20 days. This can be refilled by her PCP if lab work demonstrates persistent hypokalemia on the outpatient side. Of note stool studies were negative for any infectious etiology and was positive for lactoferrin. 2. Anxiety, depression, hypothyroidism are all chronic medical conditions which complicate her care. Her home medications were continued where appropriate Physical Exam Narrative General: Alert, Oriented x3, Cooperative, No apparent distress HEENT: Atraumatic, PERRLA, EOMI, Normocephalic Oral: Moist Mucosa Neck: Supple, No JVD Lungs: Diminished, Normal air movement, No rhonchi, No wheeze, No rales Cardiovascular: Regular rate, Regular Rhythm, Normal S1, Normal S2, No murmurs Abdomen: Soft, nontender to palpation, Non-Distended, No Hepato-splenomegaly Extremities: No edema, Capillary Refill Less than 3 Seconds Skin: No rashes, No breakdown Musculoskeletal: No Tenderness to Palpation of Joints or Extremities Neurological: No focal neurological deficits, moves all extremities Psych/Mental Status: Normal Affect, Appropriate Weight / BMI Weight Weight: 88 lb 2.958 oz Body Mass Index (BMI) 18.5 ABG / Lab / Microbiology Data 08/07/25 04:18 08/08/25 03:15 Laboratory: Laboratory Results - last 24 hr 08/08/25 03:15: Sodium 142, Potassium 3.0 L, Chloride 109 H, Carbon Dioxide 19.7 L, Anion Gap 13, BUN 11, Creatinine 0.70, Estim Creat Clear Calc 38.37 L, Est GFR (MDRD) Non-Af 90, BUN/Creatinine Ratio 16.1, Glucose 157 H, Calcium 8.7 Microbiology: Microbiology 08/05/25 20:20 Urine, Random Urine Culture - Preliminary Escherichia coli Alpha hemolytic organism 08/05/25 20:15 Stool Stool Lactoferrin - Final 08/05/25 20:15 Stool Enteric Bacteriology - Final 08/05/25 20:15 Stool Clostridioides difficile (PCR) - Final D/C Instructions Call your doctor if you observe: Fever of 101 or Higher, Shortness of breath, Dizziness, Fainting spells, Swelling in the ankles, Chest pain and Increased palpitations (irregular heartbeat) DC O2, CPAP, BIPAP Needs Home O2 Discharge instructions: No Meaningful Use Info Meaningful Use Meaningful Use Diagnoses (Choose all that apply): None applicable Discharge Plan Admission Admit Date/Time: 08/05/25 23:24 Attending Provider: Livan Meza Primary Care Provider: Katey Henderson Consulting Providers: Aquiles Richardson; Renate Oswald; Isaac Reddy Instructions Additional Instructions / Restrictions: Follow-up with your PCP in 3 to 5 days to monitor your lab work and make adjustments to your discharge medications. Also follow-up with your original gastroenterology doctor for posthospital follow-up and then you can attempt to transition to Dr. Richardson at this facility Discharge Orders/Prescriptions Prescriptions: New ciprofloxacin HCl [Cipro] 250 mg tablet 250 mg PO BID 7 Days Qty: 14 0RF prednisone 20 mg tablet 40 mg PO DAILY 7 Days Qty: 14 0RF metronidazole 500 mg tablet 500 mg PO Q8H 7 Days Qty: 21 0RF potassium chloride [K-Tab] 20 mEq tablet extended release 20 meq PO DAILY 20 Days Qty: 20 0RF Continued levothyroxine 25 MCG tablet 25 mcg PO DAILY Patient Comments: thyroid pantoprazole 20 MG tablet 20 mg PO DAILY Patient Comments: acid reflux nifedipine 60 MG tablet 180 mg PO DAILY Patient Comments: heart rate Probiotic Formula (inulin) 1 EACH capsule 1 ea PO DAILY Patient Comments: stomach; treat IBS paroxetine HCl [Paxil CR] 25 MG tablet extended release 24 hr 75 mg PO DAILY Patient Comments: Treat major depressive disorder aspirin 325 MG tablet 325 mg PO DAILY Patient Comments: blood thinner budesonide [Entocort EC] 3 MG capsule,delayed,extend.release 9 mg PO DAILY lorazepam 0.5 MG tablet 0.5 mg PO Q6H PRN PRN (Reason: Anxiety) Qty: 10 0RF dicyclomine 20 mg tablet 20 mg PO TID Ensure Enlive 120 ML liquid 120 ml PO 4X/DAY loperamide 2 mg Tablet 2 mg PO Q6H PRN (Reason: Constipation) Metamucil atorvastatin 80 mg Tablet 20 mg PO QHS Qty: 30 0RF ondansetron 4 mg tablet,disintegrating 4 mg PO Q6H PRN (Reason: nausea and vomiting) Qty: 20 0RF cyclobenzaprine 5 mg tablet 5 mg PO TID PRN (Reason: muscle spasm) Qty: 14 0RF gabapentin 600 mg tablet 600 mg PO BID buspirone 30 mg tablet 30 mg PO BID Referrals / Follow Up: Katey Henderson MD [Primary Care Provider, Internal Medicine] - Within 1 Week Disposition Disposition (needs filled in before D/C Order can be placed): Home, Self Care Charges/Coding Visit Charges Inpatient E&M: 23750 Disch Hosp >30min
== END 2025-08-08 11:41 | disposition home or self-care (01) | DRG 385 ==
LOC: ED 23:04 → MS3 23:44
PROVIDERS: Admitting Provider Internal Medicine; Emergency Provider Emergency Medicine; PCP Internal Medicine; Visit Provider Family Medicine
DX: K50.90 Crohn's disease, unspecified, without complications (principal); E43 Unspecified severe protein-calorie malnutrition; E87.20 Acidosis, unspecified; Z68.1 Body mass index [BMI] 19.9 or less, adult; G40.909 Epilepsy, unspecified, not intractable, without status epilepticus; E03.9 Hypothyroidism, unspecified; F32.A Depression, unspecified; I10 Essential (primary) hypertension; K21.9 Gastro-esophageal reflux disease without esophagitis; I73.00 Raynaud's syndrome without gangrene; F41.9 Anxiety disorder, unspecified; E87.6 Hypokalemia; E86.0 Dehydration; R53.1 Weakness; Z79.890 Hormone replacement therapy; Z79.82 Long term (current) use of aspirin; Z79.899 Other long term (current) drug therapy
CPT/HCPCS: 36415; 74018; 74177; 80048; 80053; 81001; 83630; 83690; 83735; 84100; 85025; 85652; 86140; 87077; 87086; 87088; 87177; 87186; 87209; 87493; 87506; 97802; 99284; Q9967; A4216; J0744